=== PATIENT | female | born 1990 | race Caucasian/White ===

== ENCOUNTER 2016-07-23 19:39 | Emergency (ER) | payer OTHER ==
[2016-07-23 19:47] VITALS: RESP 18
[2016-07-23] MEDS ORDERED: ONDANSETRON 4 MG/2 ML VIAL IVP STA (20:23)
[2016-07-23] MEDS ORDERED: SODIUM CHLORIDE 0.9% 500 ML IV ONE (20:23)
[2016-07-23] MEDS ORDERED: SODIUM CHLORIDE 0.9% 1,000 ML IV SCH (20:30)
[2016-07-23 20:59] LABS: Basophils % (A) 0 %; CH 30.5; CHCM 34.2; Eosinophils % (A) 0 %; HCT 36.5 % (34.0-46.0); HDW 2.51; HGB 12.4 gm/dL (11.4-16.0); Luc % (Auto) 2; Lymphocytes # (A) 1.2 k/uL (1.0-4.8); Lymphocytes % (A) 23 %; MCH 30.4 pg (25.0-35.0); MCHC 33.9 g/dL (31.0-37.0); MCV 89.7 fL (80.0-100.0); Mean Platelet Volume 7.6; Monocytes # (A) 0.3 k/uL (0-1.0); Monocytes % (A) 5 %; Neutrophils # (A) 3.8 k/uL (1.3-7.7); Neutrophils % (A) 70 %; RBC 4.07 m/uL (3.80-5.40); RDW 13.3 % (11.5-15.5); WBC 5.4 k/uL (3.8-10.6)
[2016-07-23 21:17] LABS: ALT 28 U/L (9-52); AST 20 U/L (14-36); Alkaline Phosphatase 65 U/L (38-126); Anion Gap 12 mmol/L; Blood Urea Nitrogen 10 mg/dL (7-17); Calcium 9.3 mg/dL (8.4-10.2); Carbon Dioxide 24 mmol/L (22-30); Chloride 106 mmol/L (98-107); Glucose 84 mg/dL (74-99); Non-African American GFR(MDRD) >60 (>60 ml/min/1.73 sqM); Potassium 4.2 mmol/L (3.5-5.1); Sodium 142 mmol/L (137-145); Total Bilirubin 1.1 mg/dL (0.2-1.3); Total Protein 6.6 g/dL (6.3-8.2)
--- NOTE | 2016-07-23 21:40 | ED ---
General Adult HPI - General Chief complaint: Abdominal Pain Stated complaint: Abd Pain Time Seen by Provider: 07/23/16 20:02 Source: patient, RN notes reviewed, old records reviewed Mode of arrival: ambulatory Limitations: no limitations - History of Present Illness Initial comments: Chief complaint history of present illness a 26-year-old female who's complaining of abdominal discomfort right lower quadrant area. Point specific area is really toward the right inguinal canal area. 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 She is nauseated no vomiting no diarrhea. Eating well. - Related Data Home Medications Medication Instructions Recorded Confirmed Escitalopram [Lexapro] 10 mg PO DAILY 12/26/15 07/23/16 Ranitidine HCl 150 mg PO BID 12/26/15 07/23/16 Naproxen [Naprosyn] 250 mg PO Q12H PRN 07/23/16 07/23/16 Norgestimate-Ethinyl Estradiol 1 tab PO DAILY 07/23/16 07/23/16 [Sprintec 28 Day Tablet] Previous Rx's Medication Instructions Recorded Ibuprofen [Motrin] 400 mg PO Q6HR PRN #20 tab 07/23/16 Allergies Allergy/AdvReac Type Severity Reaction Status Date / Time aloe vera Allergy Unknown Verified 07/23/16 20:08 azithromycin Allergy Rash/Hives Verified 07/23/16 20:08 metronidazole [From Flagyl] Allergy Unknown Verified 07/23/16 20:08 Metronidazole HCl Allergy Unknown Verified 07/23/16 20:08 [From Flagyl] milk Allergy Unknown Verified 07/23/16 20:08 Penicillins Allergy Unknown Verified 07/23/16 20:08 tape Allergy Unknown Uncoded 07/23/16 19:47 Review of Systems ROS Statement: Those systems with pertinent positive or pertinent negative responses have been documented in the HPI. Review of systems no visual acuity changes no headache no sore throat no chest pain or shortness of breath. She complains discomfort over the right lower quadrant and in fact points specifically over the right inguinal canal area. Pain increases when she lifts her leg palpates the area. She can control the pain by splinting the area while lifting her leg. All systems are reviewed. 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 She's had multiple admissions multiple workups by h[facility] opener for intestinal problems. The patient's surgeries include C- section, cholecystectomy and 2 laparoscopic surgeries 1 for left ovarian cyst and the other for ablation of endometriosis. The patient reports her. The patient better managed in an [facility] been less of a problem since she switched control pills. Family history significant for diabetes and heart disease. The patient has ALLERGIES to aloe vera, his erythromycin, metronidazole, milk penicillin and tape. Patient does not smoke rarely uses alcohol socially. ROS Other: All systems not noted in ROS Statement are negative. Past Medical History Past Medical History: GERD/Reflux Additional Past Medical History / Comment(s): endometriosis, polycystic ovarian syndrome History of Any Multi-Drug Resistant Organisms: None Reported Past Surgical History: Section, Cholecystectomy Additional Past Surgical History / Comment(s): laparoscopy x2 Past Anesthesia/Blood Transfusion Reactions: No Reported Reaction Past Psychological History: Anxiety, Depression Smoking Status: Never smoker Past Alcohol Use History: Rare Past Drug Use History: None Reported - Past Family History Mother Family Medical History: Hyperlipidemia Additional Family Medical History / Comment(s): depression anxiety General Exam - General Exam Comments Initial Comments: General: The patient is awake and alert, in no distress, and does not appear acutely ill. Appears comfortable but complains of pain to her right lower quadrant area. Vital signs shows temperature temp 99, pulse 86 respiratory rate 18 pulse ox 99% room air blood pressure 130/81 mildly elevated systolic noted. Patient will be following up with her family physician in next 1-4 weeks. Eye: Pupils are equal, round and reactive to light, extra-ocular movements are intact ; there is normal conjunctiva bilaterally. No signs of icterus. Ears, nose, mouth and throat: There are moist mucous membranes and no oral lesions. Bilobed uvula noted. Neck: The neck is supple, there is no tenderness . Cardiovascular: There is a regular rate and rhythm. No murmur, rub or gallop is appreciated. Respiratory: Lungs are clear to auscultation, respirations are non-labored, breath sounds are equal. No wheezes, stridor, rales, or rhonchi. Gastrointestinal: Normal active bowel sounds. No pain with palpation throughout the abdomen except in the area right above the right inguinal canal. Pain increases when she lifts her right leg. She can control the pain in that area but putting pressure over the right inguinal canal. Pulses appear normal. No swelling to the leg. Neurovascular status to the legs intact. Back: There is no tenderness to palpation in the midline. There is no obvious deformity. No rashes noted. Musculoskeletal: Muscles of the right inguinal region uncomfortable. No hernia appreciated clinically. Pain can be controlled by splinting the area with her hand. Neurological: No neuro deficits Skin: Skin is warm and dry and no rashes or lesions are noted. Limitations: no limitations Course Vital Signs 07/23/16 19:43 Temperature 99.0 F Pulse Rate 86 Respiratory 18 Rate Blood Pressure 130/81 O2 Sat by Pulse 99 Oximetry Medical Decision Making - Medical Decision Making Medical decision making patient white count is 5.4 hemoglobin 12 hematocrit of 36 with a potassium 4.4 BUN 10 creatinine 0.76 GFR greater than 60. Glucose 84. - Lab Data Result diagrams: 07/23/16 20:44 07/23/16 20:44 Lab Results 07/23/16 07/23/16 Range/Units 20:44 20:44 WBC 5.4 (3.8-10.6) k/uL RBC 4.07 (3.80-5.40) m/uL Hgb 12.4 (11.4-16.0) gm/dL Hct 36.5 (34.0-46.0) % MCV 89.7 (80.0-100.0) fL MCH 30.4 (25.0-35.0) pg MCHC 33.9 (31.0-37.0) g/dL RDW 13.3 (11.5-15.5) % Plt Count 166 (150-450) k/uL Neutrophils % 70 % Lymphocytes % 23 % Monocytes % 5 % Eosinophils % 0 % Basophils % 0 % Neutrophils # 3.8 (1.3-7.7) k/uL Lymphocytes # 1.2 (1.0-4.8) k/uL Monocytes # 0.3 (0-1.0) k/uL Eosinophils # 0.0 (0-0.7) k/uL Basophils # 0.0 (0-0.2) k/uL Sodium 142 (137-145) mmol/L Potassium 4.2 (3.5-5.1) mmol/L Chloride 106 (98-107) mmol/L Carbon Dioxide 24 (22-30) mmol/L Anion Gap 12 mmol/L BUN 10 (7-17) mg/dL Creatinine 0.76 (0.52-1.04) mg/dL Est GFR (MDRD) Af Amer >60 (>60 ml/min/1.73 sqM) Est GFR (MDRD) Non-Af >60 (>60 ml/min/1.73 sqM) Glucose 84 (74-99) mg/dL Calcium 9.3 (8.4-10.2) mg/dL Total Bilirubin 1.1 (0.2-1.3) mg/dL AST 20 (14-36) U/L ALT 28 (9-52) U/L Alkaline Phosphatase 65 (38-126) U/L Total Protein 6.6 (6.3-8.2) g/dL Albumin 3.8 (3.5-5.0) g/dL Disposition Clinical Impression: Rt inguinal pain Disposition: HOME SELF-CARE Condition: Good Instructions: Groin Pain (ED) Additional Instructions: Follow-up with family physician. Placed her hand on the site of discomfort as needed to control discomfort. Use ibuprofen for pain. If you feel a lump may be a hernia or nontender lymph node. Prescriptions: Ibuprofen [Motrin] 400 mg PO Q6HR PRN #20 tab PRN Reason: Pain Time of Disposition: 21:42
[2016-07-23 21:51] VITALS: BP 106/55; PULSE 71; TEMP 98.3
== END 2016-07-23 21:51 | disposition home or self-care (01) ==
LOC: EC 19:39
DX: R10.31 Right lower quadrant pain (principal); K21.9 Gastro-esophageal reflux disease without esophagitis; N80.9 Endometriosis, unspecified; F41.9 Anxiety disorder, unspecified; F32.9 Major depressive disorder, single episode, unspecified; E28.2 Polycystic ovarian syndrome; Z79.899 Other long term (current) drug therapy; Z79.3 Long term (current) use of hormonal contraceptives; Z88.1 Allergy status to other antibiotic agents; Z88.3 Allergy status to other anti-infective agents; Z88.0 Allergy status to penicillin
CPT/HCPCS: 99284; 96374; 36415; 80053; 85025; J2405

== ENCOUNTER 2016-10-16 16:23 | Emergency (ER) | payer OTHER ==
[2016-10-16 17:14] VITALS: RESP 16
[2016-10-16] MEDS ORDERED: diphenhydrAMINE 50 MG/ML 1 ML VIAL IVP STA (17:59)
[2016-10-16] MEDS ORDERED: METOCLOPRAMIDE 5 MG/ML 2 ML VIAL IVP STA (17:59)
[2016-10-16] MEDS ORDERED: KETOROLAC 30 MG/ML 1 ML VIAL IVP STA (17:59)
[2016-10-16] MEDS ORDERED: SODIUM CHLORIDE 0.9% 1,000 ML IV ONE (17:59)
[2016-10-16 18:42] LABS: Basophils % (A) 0 %; CH 31.5; Eosinophils % (A) 1 %; HCT 37.6 % (34.0-46.0); HDW 2.68; Luc # (Auto) 0.17; Luc % (Auto) 3; Lymphocytes # (A) 1.7 k/uL (1.0-4.8); Lymphocytes % (A) 32 %; MCH 31.2 pg (25.0-35.0); MCHC 34.4 g/dL (31.0-37.0); MCV 90.6 fL (80.0-100.0); Monocytes # (A) 0.2 k/uL (0-1.0); Monocytes % (A) 4 %; Neutrophils # (A) 3.1 k/uL (1.3-7.7); Neutrophils % (A) 60 %; RBC 4.16 m/uL (3.80-5.40); RDW 12.5 % (11.5-15.5); WBC 5.2 k/uL (3.8-10.6); WBC (Perox) 5.55
[2016-10-16 18:43] LABS: Appearance,Urine Clear (Clear); Bilirubin,Urine Negative (Negative); Glucose,Urine (UA) Negative (Negative); Ketones,Urine Negative (Negative); Leukocyte Esterase,Urine Negative (Negative); Nitrite,Urine Negative (Negative); Protein,Urine Negative (Negative); Specific Gravity,Urine 1.013 (1.001-1.035); UA Billing (MACRO vs. MICRO) CHEM; Urobilinogen,Urine <2.0 mg/dL (<2.0)
--- NOTE | 2016-10-16 18:55 | XR ---
EXAMINATION TYPE: XR ribs RT w pa chest xray - total 5 views DATE OF EXAM: 10/16/2016 6:41 PM COMPARISON: February 15, 2016 HISTORY: Right lower anterior rib pain without known injury TECHNIQUE: 5 views FINDINGS: The lower right anterior ribs have normal appearance. Remainder of the skeletal structures are also negative. There is no pleural effusion and no pneumothorax. Cardiac silhouette has normal appearance. The lungs are clear and well expanded bilaterally. Pleural spaces are negative. Bones and soft tissues are unr emarkable. IMPRESSION: Negative examination.
[2016-10-16 18:57] LABS: ALT 27 U/L (9-52); AST 17 U/L (14-36); Alkaline Phosphatase 75 U/L (38-126); Anion Gap 9 mmol/L; Blood Urea Nitrogen 12 mg/dL (7-17); Calcium 9.6 mg/dL (8.4-10.2); Carbon Dioxide 26 mmol/L (22-30); Chloride 103 mmol/L (98-107); Glucose 88 mg/dL (74-99); Non-African American GFR(MDRD) >60 (>60 ml/min/1.73 sqM); Potassium 4.2 mmol/L (3.5-5.1); Sodium 138 mmol/L (137-145); Total Bilirubin 1.2 mg/dL (0.2-1.3); Total Protein 6.9 g/dL (6.3-8.2)
[2016-10-16] MEDS ORDERED: DIAZEPAM 5 MG/ML 2 ML SYRINGE IVP STA (20:04)
--- NOTE | 2016-10-16 20:06 | ED ---
General Adult HPI - General Chief complaint: Abdominal Pain Stated complaint: Abd Pain Time Seen by Provider: 10/16/16 17:19 Source: patient Mode of arrival: ambulatory Limitations: no limitations - History of Present Illness Initial comments: 26 year female presented for evaluation of right sided chest pain she states she's had since Saturday but it is worsened Saturday and continued to cause her pain. She denies any preceding trauma or strenuous activities. Pain is worse with moving her right arm or shoulder or twisting her torso but it resolves when she lays still. It radiates from the right anterior chest to the right posterior back. She denies any associated abdominal pain, vaginal discharge/bleeding, dysuria, flank pain, nausea, vomiting. She does have some decreased ability to breathe deeply as this will cause more pain. - Related Data Home Medications Medication Instructions Recorded Confirmed Ranitidine HCl 150 mg PO BID 12/26/15 10/16/16 Citalopram Hydrobromide [CeleXA] 20 mg PO DAILY 10/16/16 10/16/16 Tilia 1 mg PO DAILY 10/16/16 10/16/16 Previous Rx's Medication Instructions Recorded Diazepam [Valium] 5 mg PO BID #6 tab 10/16/16 HYDROcodone/APAP 5-325MG [Linneus 1 - 2 tab PO Q6HR PRN #14 tab 10/16/16 5-325] Ibuprofen [Motrin] 800 mg PO Q8HR PRN #20 tab 10/16/16 Allergies Allergy/AdvReac Type Severity Reaction Status Date / Time aloe vera Allergy Unknown Verified 10/16/16 18:54 azithromycin Allergy Rash/Hives Verified 10/16/16 18:54 metronidazole [From Flagyl] Allergy Unknown Verified 10/16/16 18:54 Metronidazole HCl Allergy Unknown Verified 10/16/16 18:54 [From Flagyl] milk Allergy Unknown Verified 10/16/16 18:54 Penicillins Allergy Unknown Verified 10/16/16 18:54 tape Allergy Unknown Uncoded 10/16/16 17:14 Review of Systems ROS Statement: Those systems with pertinent positive or pertinent negative responses have been documented in the HPI. ROS Other: All systems not noted in ROS Statement are negative. Constitutional: Denies: fever, chills Eyes: Denies: eye pain, eye discharge, vision change ENT: Denies: ear pain, throat pain Respiratory: Denies: cough, dyspnea, wheezes, hemoptysis Cardiovascular: Reports: chest pain (Chest wall pain). Denies: palpitations, dyspnea on exertion, orthopnea Endocrine: Denies: fatigue, polydipsia, polyuria Gastrointestinal: Denies: abdominal pain, nausea, vomiting Genitourinary: Denies: urgency, dysuria Musculoskeletal: Denies: back pain, arthralgia Skin: Denies: rash, lesions Neurological: Denies: headache, weakness Hematological/Lymphatic: Denies: easy bleeding, easy bruising Past Medical History Past Medical History: GERD/Reflux Additional Past Medical History / Comment(s): endometriosis, polycystic ovarian syndrome History of Any Multi-Drug Resistant Organisms: None Reported Past Surgical History: Section, Cholecystectomy Additional Past Surgical History / Comment(s): laparoscopy x2 Past Anesthesia/Blood Transfusion Reactions: No Reported Reaction Past Psychological History: Anxiety, Depression Smoking Status: Never smoker Past Alcohol Use History: Rare Past Drug Use History: None Reported - Past Family History Mother Family Medical History: Hyperlipidemia Additional Family Medical History / Comment(s): depression anxiety General Exam Limitations: no limitations General appearance: alert, in no apparent distress Head exam: Present: atraumatic, normocephalic, normal inspection Eye exam: Present: normal appearance, PERRL, EOMI. Absent: scleral icterus, conjunctival injection, periorbital swelling ENT exam: Present: normal exam, mucous membranes moist Neck exam: Present: normal inspection. Absent: tenderness, meningismus, lymphadenopathy Respiratory exam: Present: normal lung sounds bilaterally. Absent: respiratory distress, wheezes, rales, rhonchi, stridor Cardiovascular Exam: Present: regular rate, normal rhythm, normal heart sounds. Absent: systolic murmur, diastolic murmur, rubs, gallop, clicks GI/Abdominal exam: Present: soft, normal bowel sounds. Absent: distended, tenderness, guarding, rebound, rigid Rectal exam: Present: deferred Extremities exam: Present: normal inspection, full ROM, normal capillary refill. Absent: tenderness, pedal edema, joint swelling, calf tenderness Back exam: Present: normal inspection, tenderness (Along the right lower lateral ribs from the front to the back) Neurological exam: Present: alert, oriented X3, CN II-XII intact Psychiatric exam: Present: normal affect, normal mood Skin exam: Present: warm, dry, intact, normal color. Absent: rash Course Vital Signs 10/16/16 10/16/16 17:11 20:21 Temperature 98.8 F 98.0 F Pulse Rate 78 77 Respiratory 16 16 Rate Blood Pressure 128/84 112/60 O2 Sat by Pulse 100 100 Oximetry Medical Decision Making - Medical Decision Making 26 her female presented for evaluation of right chest wall pain with radiation of pain from the anterior chest wall of the right lower ribs that radiates around to the back. On physical examination there is tenderness to palpation along the chest wall. Labs revealed no significant abnormalities and chest x-ray shows no acute process. Patient was reevaluated after getting pain control including muscle relaxants since she had near resolution of her symptoms. She was informed of all these results and through shared decision making it was determined that she would be discharged with instructions to follow-up with her primary care physician but to return to this facility if her symptoms should worsen or persist. The patient acknowledged an understanding of this information and agreed with this plan of care. - Lab Data Result diagrams: 10/16/16 18:30 10/16/16 18:30 Lab Results 10/16/16 10/16/16 10/16/16 Range/Units 18:30 18:30 18:30 WBC 5.2 (3.8-10.6) k/uL RBC 4.16 (3.80-5.40) m/uL Hgb 13.0 (11.4-16.0) gm/dL Hct 37.6 (34.0-46.0) % MCV 90.6 (80.0-100.0) fL MCH 31.2 (25.0-35.0) pg MCHC 34.4 (31.0-37.0) g/dL RDW 12.5 (11.5-15.5) % Plt Count 175 (150-450) k/uL Neutrophils % 60 % Lymphocytes % 32 % Monocytes % 4 % Eosinophils % 1 % Basophils % 0 % Neutrophils # 3.1 (1.3-7.7) k/uL Lymphocytes # 1.7 (1.0-4.8) k/uL Monocytes # 0.2 (0-1.0) k/uL Eosinophils # 0.0 (0-0.7) k/uL Basophils # 0.0 (0-0.2) k/uL Sodium 138 (137-145) mmol/L Potassium 4.2 (3.5-5.1) mmol/L Chloride 103 (98-107) mmol/L Carbon Dioxide 26 (22-30) mmol/L Anion Gap 9 mmol/L BUN 12 (7-17) mg/dL Creatinine 0.71 (0.52-1.04) mg/dL Est GFR (MDRD) Af Amer >60 (>60 ml/min/1.73 sqM) Est GFR (MDRD) Non-Af >60 (>60 ml/min/1.73 sqM) Glucose 88 (74-99) mg/dL Calcium 9.6 (8.4-10.2) mg/dL Total Bilirubin 1.2 (0.2-1.3) mg/dL AST 17 (14-36) U/L ALT 27 (9-52) U/L Alkaline Phosphatase 75 (38-126) U/L Total Protein 6.9 (6.3-8.2) g/dL Albumin 4.0 (3.5-5.0) g/dL Lipase 44 (23-300) U/L Urine Color Yellow Urine Appearance Clear (Clear) Urine pH 6.0 (5.0-8.0) Ur Specific [place] 1.013 (1.001-1.035) Urine Protein Negative (Negative) Urine Glucose (UA) Negative (Negative) Urine Ketones Negative (Negative) Urine Blood Negative (Negative) Urine Nitrite Negative (Negative) Urine Bilirubin Negative (Negative) Urine Urobilinogen <2.0 (<2.0) mg/dL Ur Leukocyte Esterase Negative (Negative) Urine HCG, Qual (Not Detectd) 10/16/16 Range/Units 18:30 WBC (3.8-10.6) k/uL RBC (3.80-5.40) m/uL Hgb (11.4-16.0) gm/dL Hct (34.0-46.0) % MCV (80.0-100.0) fL MCH (25.0-35.0) pg MCHC (31.0-37.0) g/dL RDW (11.5-15.5) % Plt Count (150-450) k/uL Neutrophils % % Lymphocytes % % Monocytes % % Eosinophils % % Basophils % % Neutrophils # (1.3-7.7) k/uL Lymphocytes # (1.0-4.8) k/uL Monocytes # (0-1.0) k/uL Eosinophils # (0-0.7) k/uL Basophils # (0-0.2) k/uL Sodium (137-145) mmol/L Potassium (3.5-5.1) mmol/L Chloride (98-107) mmol/L Carbon Dioxide (22-30) mmol/L Anion Gap mmol/L BUN (7-17) mg/dL Creatinine (0.52-1.04) mg/dL Est GFR (MDRD) Af Amer (>60 ml/min/1.73 sqM) Est GFR (MDRD) Non-Af (>60 ml/min/1.73 sqM) Glucose (74-99) mg/dL Calcium (8.4-10.2) mg/dL Total Bilirubin (0.2-1.3) mg/dL AST (14-36) U/L ALT (9-52) U/L Alkaline Phosphatase (38-126) U/L Total Protein (6.3-8.2) g/dL Albumin (3.5-5.0) g/dL Lipase (23-300) U/L Urine Color Urine Appearance (Clear) Urine pH (5.0-8.0) Ur Specific [place] (1.001-1.035) Urine Protein (Negative) Urine Glucose (UA) (Negative) Urine Ketones (Negative) Urine Blood (Negative) Urine Nitrite (Negative) Urine Bilirubin (Negative) Urine Urobilinogen (<2.0) mg/dL Ur Leukocyte Esterase (Negative) Urine HCG, Qual Not Detected (Not Detectd) Disposition Clinical Impression: Abdominal pain, Rib pain on right side Disposition: HOME SELF-CARE Condition: Stable Instructions: Abdominal Pain (ED), Chest Pain (ED) Additional Instructions: Please use medication as discussed. Please follow up with family doctor if symptoms have not improved over the next two days. Please return to the emergency room if your symptoms increase or worsen or for any other concerns. Prescriptions: Diazepam [Valium] 5 mg PO BID #6 tab HYDROcodone/APAP 5-325MG [Linneus 5-325] 1 - 2 tab PO Q6HR PRN #14 tab PRN Reason: Analgesia Ibuprofen [Motrin] 800 mg PO Q8HR PRN #20 tab PRN Reason: Analgesia Referrals: Marielle Antony MD [Primary Care Provider] - 1-2 days Time of Disposition: 20:06
[2016-10-16 20:22] VITALS: BP 112/60; PULSE 77; TEMP 98
== END 2016-10-16 20:41 | disposition home or self-care (01) ==
LOC: EC 16:23
DX: R07.81 Pleurodynia (principal); R10.9 Unspecified abdominal pain; R06.00 Dyspnea, unspecified; K21.9 Gastro-esophageal reflux disease without esophagitis; F41.9 Anxiety disorder, unspecified; F32.9 Major depressive disorder, single episode, unspecified; Z79.899 Other long term (current) drug therapy; Z88.1 Allergy status to other antibiotic agents; Z88.0 Allergy status to penicillin; Z91.011 Allergy to milk products; Z91.048 Other nonmedicinal substance allergy status; Z91.09 Other allergy status, other than to drugs and biological substances; Z90.49 Acquired absence of other specified parts of digestive tract
CPT/HCPCS: 36415; 80053; 83690; 85025; 81003; 81025; 71101; 99284; 96374; 96375 ×3; 96361; J1200; J2765; J3360; J1885

== ENCOUNTER 2016-11-18 19:07 | Emergency (ER) | payer OTHER ==
[2016-11-18 19:12] VITALS: RESP 18
[2016-11-18] MEDS ORDERED: SODIUM CHLORIDE 0.9% 1,000 ML IV STA (19:31)
[2016-11-18] MEDS ORDERED: ONDANSETRON 4 MG/2 ML VIAL IVP STA (19:31)
--- NOTE | 2016-11-18 19:35 | ED ---
Abdominal Pain HPI - General Chief Complaint: Abdominal Pain Stated Complaint: Lower Abd Pain Time Seen by Provider: 11/18/16 19:16 Source: patient, RN notes reviewed Mode of arrival: ambulatory Limitations: no limitations - History of Present Illness Initial Comments: 26-year-old female presents emergency Department chief complaint of right lower quadrant abdominal pain. Patient states she's had this for the past 2 days or so. Patient states that she just continues to have this terrible pain. Patient states his abdomen on history of ovarian cysts. 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 Patient denies any fever chills any vomiting with this. Patient states the pain does make her feel somewhat nauseous. Patient states she has any change in bowel or bladder habits or any vaginal discharge. Patient states she was concerned due to the continued pain so she thought that she should be evaluated. Patient denies any recent fever, chills, shortness of breath, chest pain, back pain, nausea vomiting, numbness or tingling, dysuria or hematuria, constipation or diarrhea, headaches or visual changes, or any other current symptoms. - Related Data Home Medications Medication Instructions Recorded Confirmed Ranitidine HCl 150 mg PO DAILY@199912/26/15 11/18/16 Citalopram Hydrobromide [CeleXA] 20 mg PO DAILY@199910/16/16 11/18/16 Acetaminophen Tab [Tylenol Tab] 500 mg PO Q6H PRN 11/18/16 11/18/16 Ibuprofen [Motrin] 800 mg PO Q8HR PRN 11/18/16 11/18/16 Tilia Fe 1 tab PO DAILY@199911/18/16 11/18/16 Allergies Allergy/AdvReac Type Severity Reaction Status Date / Time adhesive tape Allergy Rash/Hives Verified 11/18/16 19:22 aloe vera Allergy Rash/Hives Verified 11/18/16 19:22 azithromycin Allergy Rash/Hives Verified 11/18/16 19:22 Penicillins Allergy Rash/Hives Verified 11/18/16 19:22 metronidazole [From Flagyl] AdvReac Nausea & Verified 11/18/16 19:22 Vomiting milk AdvReac Abdominal Verified 11/18/16 19:22 Pain Review of Systems ROS Statement: Those systems with pertinent positive or pertinent negative responses have been documented in the HPI. ROS Other: All systems not noted in ROS Statement are negative. Past Medical History Past Medical History: GERD/Reflux Additional Past Medical History / Comment(s): endometriosis, polycystic ovarian syndrome History of Any Multi-Drug Resistant Organisms: None Reported Past Surgical History: Section, Cholecystectomy Additional Past Surgical History / Comment(s): laparoscopy x2 Past Anesthesia/Blood Transfusion Reactions: No Reported Reaction Past Psychological History: Anxiety, Depression Smoking Status: Never smoker Past Alcohol Use History: Rare Past Drug Use History: None Reported - Past Family History Mother Family Medical History: Hyperlipidemia Additional Family Medical History / Comment(s): depression anxiety General Exam - General Exam Comments Initial Comments: General: The patient is awake and alert, in no distress, and does not appear acutely ill. Eye: Pupils are equal, round. Ears, nose, mouth and throat: There are moist mucous membranes. Neck: The neck is supple, there is no tenderness. Cardiovascular: There is a regular rate and rhythm. No murmur, rub or gallop is appreciated. Respiratory: Lungs are clear to auscultation, respirations are non-labored, breath sounds are equal. No wheezes, stridor, rales, or rhonchi. Gastrointestinal: Soft, non-distended, tender right lower quadrant of the abdomen without masses or organomegaly noted. There is no rebound or guarding present. No CVA tenderness. Bowel sounds are unremarkable. Back: There is no tenderness to palpation in the midline. There is no obvious deformity. No rashes noted. Musculoskeletal: Normal ROM, no tenderness, There is no pedal edema. There is no calf tenderness or swelling. Sensation intact. Pulses equal bilaterally 2+. Neurological: CN II-XII intact, There are no obvious motor or sensory deficits. Coordination appears grossly intact. Speech is normal. Skin: Skin is warm and dry and no rashes or lesions are noted. Psychiatric: Cooperative, appropriate mood & affect, normal judgment. Limitations: no limitations Course Vital Signs 11/18/16 19:10 Temperature 98.5 F Pulse Rate 89 Respiratory 18 Rate Blood Pressure 142/90 O2 Sat by Pulse 99 Oximetry Medical Decision Making - Medical Decision Making 26-year-old female presents for right lower quadrant abdominal pain. This time patient does appear to have an ovarian cyst. At this time we will give the patient oral. We discussed continuing her Motrin, home. We discussed return parameters and follow-up. Patient states she understood all questions were answered. She will be discharged home. - Lab Data Result diagrams: 11/18/16 20:08 11/18/16 20:08 Lab Results 11/18/16 11/18/16 11/18/16 Range/Units 20:05 20:05 20:08 WBC 5.3 (3.8-10.6) k/uL RBC 3.76 L (3.80-5.40) m/uL Hgb 11.9 (11.4-16.0) gm/dL Hct 34.3 (34.0-46.0) % MCV 91.1 (80.0-100.0) fL MCH 31.7 (25.0-35.0) pg MCHC 34.8 (31.0-37.0) g/dL RDW 12.8 (11.5-15.5) % Plt Count 189 (150-450) k/uL Neutrophils % 64 % Lymphocytes % 29 % Monocytes % 5 % Eosinophils % 0 % Basophils % 0 % Neutrophils # 3.4 (1.3-7.7) k/uL Lymphocytes # 1.5 (1.0-4.8) k/uL Monocytes # 0.2 (0-1.0) k/uL Eosinophils # 0.0 (0-0.7) k/uL Basophils # 0.0 (0-0.2) k/uL Sodium (137-145) mmol/L Potassium (3.5-5.1) mmol/L Chloride (98-107) mmol/L Carbon Dioxide (22-30) mmol/L Anion Gap mmol/L BUN (7-17) mg/dL Creatinine (0.52-1.04) mg/dL Est GFR (MDRD) Af Amer (>60 ml/min/1.73 sqM) Est GFR (MDRD) Non-Af (>60 ml/min/1.73 sqM) Glucose (74-99) mg/dL Calcium (8.4-10.2) mg/dL Total Bilirubin (0.2-1.3) mg/dL AST (14-36) U/L ALT (9-52) U/L Alkaline Phosphatase (38-126) U/L Total Protein (6.3-8.2) g/dL Albumin (3.5-5.0) g/dL Urine Color Yellow Urine Appearance Cloudy H (Clear) Urine pH 6.0 (5.0-8.0) Ur Specific [place] 1.029 (1.001-1.035) Urine Protein Trace H (Negative) Urine Glucose (UA) Negative (Negative) Urine Ketones Negative (Negative) Urine Blood Negative (Negative) Urine Nitrite Negative (Negative) Urine Bilirubin Negative (Negative) Urine Urobilinogen 2.0 (<2.0) mg/dL Ur Leukocyte Esterase Negative (Negative) Urine RBC <1 (0-5) /hpf Urine WBC 2 (0-5) /hpf Ur Squamous Epith Cells 15 H (0-4) /hpf Urine Mucus Rare H (None) /hpf Urine HCG, Qual Not Detected (Not Detectd) 11/18/16 Range/Units 20:08 WBC (3.8-10.6) k/uL RBC (3.80-5.40) m/uL Hgb (11.4-16.0) gm/dL Hct (34.0-46.0) % MCV (80.0-100.0) fL MCH (25.0-35.0) pg MCHC (31.0-37.0) g/dL RDW (11.5-15.5) % Plt Count (150-450) k/uL Neutrophils % % Lymphocytes % % Monocytes % % Eosinophils % % Basophils % % Neutrophils # (1.3-7.7) k/uL Lymphocytes # (1.0-4.8) k/uL Monocytes # (0-1.0) k/uL Eosinophils # (0-0.7) k/uL Basophils # (0-0.2) k/uL Sodium 138 (137-145) mmol/L Potassium 4.2 (3.5-5.1) mmol/L Chloride 105 (98-107) mmol/L Carbon Dioxide 23 (22-30) mmol/L Anion Gap 10 mmol/L BUN 15 (7-17) mg/dL Creatinine 0.80 (0.52-1.04) mg/dL Est GFR (MDRD) Af Amer >60 (>60 ml/min/1.73 sqM) Est GFR (MDRD) Non-Af >60 (>60 ml/min/1.73 sqM) Glucose 87 (74-99) mg/dL Calcium 9.5 (8.4-10.2) mg/dL Total Bilirubin 1.2 (0.2-1.3) mg/dL AST 14 (14-36) U/L ALT 28 (9-52) U/L Alkaline Phosphatase 68 (38-126) U/L Total Protein 6.7 (6.3-8.2) g/dL Albumin 3.9 (3.5-5.0) g/dL Urine Color Urine Appearance (Clear) Urine pH (5.0-8.0) Ur Specific [place] (1.001-1.035) Urine Protein (Negative) Urine Glucose (UA) (Negative) Urine Ketones (Negative) Urine Blood (Negative) Urine Nitrite (Negative) Urine Bilirubin (Negative) Urine Urobilinogen (<2.0) mg/dL Ur Leukocyte Esterase (Negative) Urine RBC (0-5) /hpf Urine WBC (0-5) /hpf Ur Squamous Epith Cells (0-4) /hpf Urine Mucus (None) /hpf Urine HCG, Qual (Not Detectd) - Radiology Data Radiology results: report reviewed, image reviewed Disposition Clinical Impression: Ovarian cyst Disposition: HOME SELF-CARE Condition: Stable Instructions: Ovarian Cyst (ED) Additional Instructions: Please use medication as discussed. Please follow up with family doctor if symptoms have not improved over the next two days. Please return to the emergency room if your symptoms increase or worsen or for any other concerns. Referrals: Marielle Antony MD [Primary Care Provider] - 1-2 days Time of Disposition: 21:08
[2016-11-18 20:27] LABS: Appearance,Urine Cloudy (Clear); Bilirubin,Urine Negative (Negative); Glucose,Urine (UA) Negative (Negative); Ketones,Urine Negative (Negative); Leukocyte Esterase,Urine Negative (Negative); Mucus,Urine Rare /hpf; Nitrite,Urine Negative (Negative); Particle Count 5370; Protein,Urine Trace (Negative); RBC,Urine <1 /hpf (0-5); Specific Gravity,Urine 1.029 (1.001-1.035); Squamous Epithelial Cell,Urine 15 /hpf (0-4); UA Billing (MACRO vs. MICRO) MICRO; WBC,Urine 2 /hpf (0-5)
[2016-11-18 20:29] LABS: Basophils % (A) 0 %; CH 31.6; CHCM 34.8; Eosinophils % (A) 0 %; HCT 34.3 % (34.0-46.0); HDW 2.59; HGB 11.9 gm/dL (11.4-16.0); Luc % (Auto) 2; Lymphocytes # (A) 1.5 k/uL (1.0-4.8); Lymphocytes % (A) 29 %; MCH 31.7 pg (25.0-35.0); MCHC 34.8 g/dL (31.0-37.0); MCV 91.1 fL (80.0-100.0); Mean Platelet Volume 7.5; Monocytes # (A) 0.2 k/uL (0-1.0); Monocytes % (A) 5 %; Neutrophils # (A) 3.4 k/uL (1.3-7.7); Neutrophils % (A) 64 %; RBC 3.76 m/uL (3.80-5.40); RDW 12.8 % (11.5-15.5); WBC 5.3 k/uL (3.8-10.6); WBC (Perox) 4.86
[2016-11-18 20:32] LABS: ALT 28 U/L (9-52); AST 14 U/L (14-36); Alkaline Phosphatase 68 U/L (38-126); Anion Gap 10 mmol/L; Blood Urea Nitrogen 15 mg/dL (7-17); Calcium 9.5 mg/dL (8.4-10.2); Carbon Dioxide 23 mmol/L (22-30); Chloride 105 mmol/L (98-107); Glucose 87 mg/dL (74-99); Non-African American GFR(MDRD) >60 (>60 ml/min/1.73 sqM); Potassium 4.2 mmol/L (3.5-5.1); Sodium 138 mmol/L (137-145); Total Bilirubin 1.2 mg/dL (0.2-1.3); Total Protein 6.7 g/dL (6.3-8.2)
--- NOTE | 2016-11-18 21:05 | US ---
EXAMINATION TYPE: US transvaginal plus Dopplers DATE OF EXAM: 11/18/2016 8:32 PM COMPARISON: 06/07/2016 CLINICAL HISTORY: 26-year-old female with Pain. RLQ pain. Hx of 2 c-sections. TECHNIQUE: Multiple transvaginal sonographic images of the pelvis were obtained. Color Doppler and s pectral waveform analysis of the ovarian arteries and veins. Date of LMP: 11/04/2016, FINDINGS: Uterus: Anteverted measuring 7.7 x 4.8 x 3.8 cm Endometrial Stripe: 0.5 cm, within normal limits. Right Ovary: 3.6 x 3.3 x 2.8 cm with a 3.1 cm dominant follicle or functional cyst. Satisfactory art erial and venous flow is demonstrated within the ovary. Left Ovary: 2.8 x 2.1 x 1.9 cm with follicular change. Satisfactory arterial and venous flow is demo nstrated. No evidence of adnexal abnormality. Trace cul-de-sac free fluid likely physiologic. IMPRESSION: 1. No sonographic evidence for ovarian torsion. 2. There is a 3.1 cm dominant follicle or functional cyst in the right ovary. 3. Trace cul-de-sac free fluid likely physiologic.
[2016-11-18] MEDS ORDERED: KETOROLAC 30 MG/ML 1 ML VIAL IVP STA (21:08)
[2016-11-18 21:20] VITALS: BP 119/58; PULSE 68; TEMP 98.8
== END 2016-11-18 21:20 | disposition home or self-care (01) ==
LOC: EC 19:07
DX: N83.201 Unspecified ovarian cyst, right side (principal); K21.9 Gastro-esophageal reflux disease without esophagitis; F32.9 Major depressive disorder, single episode, unspecified; F41.9 Anxiety disorder, unspecified; Z79.899 Other long term (current) drug therapy; Z88.0 Allergy status to penicillin; Z88.1 Allergy status to other antibiotic agents; Z91.048 Other nonmedicinal substance allergy status; Z91.011 Allergy to milk products
CPT/HCPCS: 36415; 80053; 85025; 81001; 81025; 93975; 76830; 99284; 96374; 96375; 96361; J2405; J1885

== ENCOUNTER 2016-12-03 14:52 | Emergency (ER) | payer OTHER ==
[2016-12-03] MEDS ORDERED: SODIUM CHLORIDE 0.9% 1,000 ML IV STA (16:27)
[2016-12-03] MEDS ORDERED: KETOROLAC 30 MG/ML 1 ML VIAL IVP STA (16:27)
--- NOTE | 2016-12-03 16:57 | ED ---
Abdominal Pain HPI - General Chief Complaint: Abdominal Pain Stated Complaint: abdominal pain Time Seen by Provider: 12/03/16 16:22 Source: patient, RN notes reviewed Mode of arrival: ambulatory - History of Present Illness Initial Comments: 26-year-old female presents to the emergency room chief complaint of abdominal pain. Patient states that she is currently on her menstrual cycle and she is having some increased cramping. Patient states she was concerned due to the increased cramping so she thought that she should be evaluated. Patient denies any fever chills nausea or vomiting with this. Patient states she has been passing some clots and discharge. Patient states she was concerned due to the cramping so she thought that she should be evaluated.Patient denies any recent fever, chills, shortness of breath, chest pain, back pain, nausea vomiting, numbness or tingling, dysuria or hematuria, constipation or diarrhea, headaches or visual changes, or any other current symptoms. - Related Data Home Medications Medication Instructions Recorded Confirmed Ranitidine HCl 150 mg PO HS 12/26/15 12/03/16 Citalopram Hydrobromide [CeleXA] 20 mg PO HS 10/16/16 12/03/16 Tilia Fe 1 tab PO HS 11/18/16 12/03/16 Allergies Allergy/AdvReac Type Severity Reaction Status Date / Time adhesive tape Allergy Rash/Hives Verified 12/03/16 16:47 aloe vera Allergy Rash/Hives Verified 12/03/16 16:47 azithromycin Allergy Rash/Hives Verified 12/03/16 16:47 Penicillins Allergy Rash/Hives Verified 12/03/16 16:47 metronidazole [From Flagyl] AdvReac Nausea & Verified 12/03/16 16:47 Vomiting milk AdvReac Abdominal Verified 12/03/16 16:47 Pain Review of Systems ROS Statement: Those systems with pertinent positive or pertinent negative responses have been documented in the HPI. ROS Other: All systems not noted in ROS Statement are negative. Past Medical History Past Medical History: GERD/Reflux Additional Past Medical History / Comment(s): endometriosis, polycystic ovarian syndrome History of Any Multi-Drug Resistant Organisms: None Reported Past Surgical History: Section, Cholecystectomy Additional Past Surgical History / Comment(s): laparoscopy x2 Past Anesthesia/Blood Transfusion Reactions: No Reported Reaction Past Psychological History: Anxiety, Depression Smoking Status: Never smoker Past Alcohol Use History: Rare Past Drug Use History: None Reported - Past Family History Mother Family Medical History: Hyperlipidemia Additional Family Medical History / Comment(s): depression anxiety General Exam - General Exam Comments Initial Comments: General: The patient is awake and alert, in no distress, and does not appear acutely ill. Eye: Pupils are equal, round. Ears, nose, mouth and throat: There are moist mucous membranes. Neck: The neck is supple, there is no tenderness. Cardiovascular: There is a regular rate and rhythm. No murmur, rub or gallop is appreciated. Respiratory: Lungs are clear to auscultation, respirations are non-labored, breath sounds are equal. No wheezes, stridor, rales, or rhonchi. Gastrointestinal: Soft, non-distended, non-tender abdomen without masses or organomegaly noted. There is no rebound or guarding present. No CVA tenderness. Bowel sounds are unremarkable. Back: There is no tenderness to palpation in the midline. There is no obvious deformity. No rashes noted. Musculoskeletal: Normal ROM, no tenderness, There is no pedal edema. There is no calf tenderness or swelling. Sensation intact. Pulses equal bilaterally 2+. Neurological: CN II-XII intact, There are no obvious motor or sensory deficits. Coordination appears grossly intact. Speech is normal. Skin: Skin is warm and dry and no rashes or lesions are noted. Psychiatric: Cooperative, appropriate mood & affect, normal judgment. Course Vital Signs 12/03/16 15:37 Temperature 99.3 F Pulse Rate 77 Respiratory 18 Rate Blood Pressure 123/79 O2 Sat by Pulse 100 Oximetry Medical Decision Making - Medical Decision Making 26 yo female presents to the ER with cc of abdominal pain associated with her menstruation cycle. This time we discussed discharge from previous. Where return parameters. Patient stated that she understood all questions have been answered. She will be discharged. - Lab Data Result diagrams: 12/03/16 16:30 12/03/16 16:30 Lab Results 12/03/16 12/03/16 12/03/16 Range/Units 16:30 16:30 16:30 WBC 4.9 (3.8-10.6) k/uL RBC 4.07 (3.80-5.40) m/uL Hgb 12.8 (11.4-16.0) gm/dL Hct 37.7 (34.0-46.0) % MCV 92.6 (80.0-100.0) fL MCH 31.5 (25.0-35.0) pg MCHC 34.1 (31.0-37.0) g/dL RDW 12.8 (11.5-15.5) % Plt Count 197 (150-450) k/uL Neutrophils % 63 % Lymphocytes % 29 % Monocytes % 5 % Eosinophils % 1 % Basophils % 0 % Neutrophils # 3.1 (1.3-7.7) k/uL Lymphocytes # 1.4 (1.0-4.8) k/uL Monocytes # 0.2 (0-1.0) k/uL Eosinophils # 0.0 (0-0.7) k/uL Basophils # 0.0 (0-0.2) k/uL Sodium 140 (137-145) mmol/L Potassium 4.1 (3.5-5.1) mmol/L Chloride 105 (98-107) mmol/L Carbon Dioxide 26 (22-30) mmol/L Anion Gap 9 mmol/L BUN 14 (7-17) mg/dL Creatinine 0.76 (0.52-1.04) mg/dL Est GFR (MDRD) Af Amer >60 (>60 ml/min/1.73 sqM) Est GFR (MDRD) Non-Af >60 (>60 ml/min/1.73 sqM) Glucose 93 (74-99) mg/dL Calcium 9.5 (8.4-10.2) mg/dL Total Bilirubin 1.1 (0.2-1.3) mg/dL AST 18 (14-36) U/L ALT 30 (9-52) U/L Alkaline Phosphatase 60 (38-126) U/L Total Protein 7.0 (6.3-8.2) g/dL Albumin 3.9 (3.5-5.0) g/dL HCG, Quant <2.4 mIU/mL Urine Color Yellow Urine Appearance Clear (Clear) Urine pH 6.5 (5.0-8.0) Ur Specific [place] 1.018 (1.001-1.035) Urine Protein Negative (Negative) Urine Glucose (UA) Negative (Negative) Urine Ketones Negative (Negative) Urine Blood Moderate H (Negative) Urine Nitrite Negative (Negative) Urine Bilirubin Negative (Negative) Urine Urobilinogen <2.0 (<2.0) mg/dL Ur Leukocyte Esterase Negative (Negative) Urine RBC 52 H (0-5) /hpf Urine WBC 2 (0-5) /hpf Ur Squamous Epith Cells 1 (0-4) /hpf Urine Bacteria Rare H (None) /hpf Urine Mucus Rare H (None) /hpf Disposition Clinical Impression: Menstrual cramps Disposition: HOME SELF-CARE Condition: Stable Instructions: Dysmenorrhea (ED) Additional Instructions: Please use medication as discussed. Please follow up with family doctor if symptoms have not improved over the next two days. Please return to the emergency room if your symptoms increase or worsen or for any other concerns. Referrals: Marielle Antony MD [Primary Care Provider] - 1-2 days Time of Disposition: 17:37
[2016-12-03 17:01] LABS: Basophils % (A) 0 %; CH 31.9; CHCM 34.6; Eosinophils % (A) 1 %; HCT 37.7 % (34.0-46.0); HDW 2.57; HGB 12.8 gm/dL (11.4-16.0); Luc # (Auto) 0.09; Luc % (Auto) 2; Lymphocytes # (A) 1.4 k/uL (1.0-4.8); Lymphocytes % (A) 29 %; MCH 31.5 pg (25.0-35.0); MCHC 34.1 g/dL (31.0-37.0); MCV 92.6 fL (80.0-100.0); Mean Platelet Volume 7.7; Monocytes # (A) 0.2 k/uL (0-1.0); Monocytes % (A) 5 %; Neutrophils # (A) 3.1 k/uL (1.3-7.7); Neutrophils % (A) 63 %; RBC 4.07 m/uL (3.80-5.40); RDW 12.8 % (11.5-15.5); WBC 4.9 k/uL (3.8-10.6); WBC (Perox) 5.09
[2016-12-03 17:04] LABS: Appearance,Urine Clear (Clear); Bacteria,Urine Rare /hpf; Bilirubin,Urine Negative (Negative); Glucose,Urine (UA) Negative (Negative); Ketones,Urine Negative (Negative); Leukocyte Esterase,Urine Negative (Negative); Mucus,Urine Rare /hpf; Nitrite,Urine Negative (Negative); PH, Urine 6.5 (5.0-8.0); Particle Count 1237; Protein,Urine Negative (Negative); RBC,Urine 52 /hpf (0-5); Specific Gravity,Urine 1.018 (1.001-1.035); Squamous Epithelial Cell,Urine 1 /hpf (0-4); UA Billing (MACRO vs. MICRO) MICRO; Urobilinogen,Urine <2.0 mg/dL (<2.0); WBC,Urine 2 /hpf (0-5)
[2016-12-03 17:11] LABS: ALT 30 U/L (9-52); AST 18 U/L (14-36); Alkaline Phosphatase 60 U/L (38-126); Anion Gap 9 mmol/L; Blood Urea Nitrogen 14 mg/dL (7-17); Calcium 9.5 mg/dL (8.4-10.2); Carbon Dioxide 26 mmol/L (22-30); Chloride 105 mmol/L (98-107); Glucose 93 mg/dL (74-99); Non-African American GFR(MDRD) >60 (>60 ml/min/1.73 sqM); Potassium 4.1 mmol/L (3.5-5.1); Sodium 140 mmol/L (137-145); Total Bilirubin 1.1 mg/dL (0.2-1.3)
[2016-12-03 17:27] LABS: HCG,Quantitative Serum <2.4 mIU/mL
[2016-12-03] MEDS ORDERED: ONDANSETRON 4 MG/2 ML VIAL IVP STA (17:45)
[2016-12-03 17:48] VITALS: BP 139/86; PULSE 74; RESP 16; TEMP 98.3
== END 2016-12-03 17:53 | disposition home or self-care (01) ==
LOC: EC 14:52
DX: N94.6 Dysmenorrhea, unspecified (principal); K21.9 Gastro-esophageal reflux disease without esophagitis; F32.9 Major depressive disorder, single episode, unspecified; F41.9 Anxiety disorder, unspecified; Z79.899 Other long term (current) drug therapy; Z88.1 Allergy status to other antibiotic agents; Z88.0 Allergy status to penicillin; Z91.011 Allergy to milk products; Z91.048 Other nonmedicinal substance allergy status
CPT/HCPCS: 36415; 80053; 85025; 81001; 84702; 87086; 99284; 96374; 96375; 96361; J2405; J1885

== ENCOUNTER 2017-01-09 14:50 | Emergency (ER) | payer OTHER ==
[2017-01-09] MEDS ORDERED: KETOROLAC 60 MG/2 ML VIAL IM STA (15:35)
--- NOTE | 2017-01-09 15:38 | ED ---
General Adult HPI - General Chief complaint: Recheck/Abnormal Lab/Rx Stated complaint: Rib/Abd Pain Time Seen by Provider: 01/09/17 15:29 Source: patient, RN notes reviewed Mode of arrival: ambulatory Limitations: no limitations - History of Present Illness Initial comments: Patient is a 26-year-old female presents emergency room for evaluation. Patient states she's been having a cough for the past 3 weeks. Patient states the cough finally subsided but now she is having continuing bilateral anterior rib pain. Patient states she called the primary care provider and can get in until tomorrow morning. Patient is alert and states deep breath or coughs or presses over her rib area she has increasing pain. Patient denies any current cough. Patient denies shortness of breath. Patient denies nausea or vomiting. Patient states taking ibuprofen without relief of symptoms. - Related Data Home Medications Medication Instructions Recorded Confirmed Ranitidine HCl 150 mg PO DAILY@1400 12/26/15 01/09/17 Citalopram Hydrobromide [CeleXA] 20 mg PO DAILY@1400 10/16/16 01/09/17 Tilia Fe 1 tab PO DAILY@1400 11/18/16 01/09/17 Loratadine [Claritin] 10 mg PO DAILY@1400 01/09/17 01/09/17 Previous Rx's Medication Instructions Recorded Ibuprofen [Motrin] 600 mg PO Q6HR PRN #20 tab 01/09/17 Allergies Allergy/AdvReac Type Severity Reaction Status Date / Time adhesive tape Allergy Rash/Hives Verified 01/09/17 15:13 aloe vera Allergy Rash/Hives Verified 01/09/17 15:13 azithromycin Allergy Rash/Hives Verified 01/09/17 15:13 metronidazole [From Flagyl] Allergy Rash/Hives Verified 01/09/17 16:09 Penicillins Allergy Rash/Hives Verified 01/09/17 15:13 milk AdvReac Abdominal Verified 01/09/17 15:13 Pain Review of Systems ROS Statement: Those systems with pertinent positive or pertinent negative responses have been documented in the HPI. ROS Other: All systems not noted in ROS Statement are negative. Past Medical History Past Medical History: GERD/Reflux Additional Past Medical History / Comment(s): endometriosis, polycystic ovarian syndrome History of Any Multi-Drug Resistant Organisms: None Reported Past Surgical History: Section, Cholecystectomy Additional Past Surgical History / Comment(s): laparoscopy x2 Past Anesthesia/Blood Transfusion Reactions: No Reported Reaction Past Psychological History: Anxiety, Depression Smoking Status: Never smoker Past Alcohol Use History: None Reported Past Drug Use History: None Reported - Past Family History Mother Family Medical History: Hyperlipidemia Additional Family Medical History / Comment(s): depression anxiety General Exam - General Exam Comments Initial Comments: Sitting in exam room, no acute distress. Limitations: no limitations General appearance: alert, in no apparent distress Head exam: Present: atraumatic, normocephalic, normal inspection Eye exam: Present: normal appearance, PERRL, EOMI Pupils: Present: normal accommodation ENT exam: Present: normal exam Neck exam: Present: normal inspection Respiratory exam: Present: normal lung sounds bilaterally, chest wall tenderness (Reproducible b/l anterior chest wall pain). Absent: respiratory distress Cardiovascular Exam: Present: regular rate, normal rhythm, normal heart sounds Extremities exam: Present: normal inspection Back exam: Present: normal inspection Neurological exam: Present: alert, oriented X3, CN II-XII intact, normal gait Psychiatric exam: Present: normal affect, normal mood Skin exam: Present: warm, dry, intact, normal color. Absent: rash Course Vital Signs 01/09/17 01/09/17 01/09/17 15:09 15:42 16:15 Temperature 98.7 F 99.3 F 99.3 F Pulse Rate 80 64 66 Respiratory 18 16 20 Rate Blood Pressure 111/67 120/62 120/64 O2 Sat by Pulse 100 100 99 Oximetry 01/09/17 01/09/17 17:07 18:20 Temperature 98.3 F 98.6 F Pulse Rate 87 71 Respiratory 16 16 Rate Blood Pressure 125/80 114/64 O2 Sat by Pulse 99 96 Oximetry Medical Decision Making - Medical Decision Making Patient is a [age] female presents emergency room for evaluation of anterior rib pain. Chest x-ray shows no acute findings. While patient was here she began developing headache. Patient given medications and states that she feels a lot better. Patient states she has an appointment with her primary care provider tomorrow morning. Return parameters discussed. - Radiology Data Radiology results: report reviewed, image reviewed Disposition Clinical Impression: Costochondritis Disposition: HOME SELF-CARE Condition: Good Instructions: Costochondritis (ED) Additional Instructions: Take ibuprofen as needed. Please follow up with primary care provider in 1-2 days. If any new symptom arises or symptoms worsen, return to ER as soon as possible. Prescriptions: Ibuprofen [Motrin] 600 mg PO Q6HR PRN #20 tab PRN Reason: Pain Referrals: Marielle Antony MD [Primary Care Provider] - 1-2 days Time of Disposition: 16:07
--- NOTE | 2017-01-09 15:55 | XR ---
EXAMINATION TYPE: XR chest 2V DATE OF EXAM: 01/09/2017 COMPARISON: 10/16/2016 INDICATION: Pain TECHNIQUE: Frontal and lateral views of the chest are obtained. FINDINGS: The heart size is normal. The pulmonary vasculature is normal. The lungs are clear. IMPRESSION: 1. No acute pulmonary process.
[2017-01-09] MEDS ORDERED: diphenhydrAMINE 50 MG/ML 1 ML VIAL IM STA (16:13)
[2017-01-09] MEDS ORDERED: METOCLOPRAMIDE 5 MG TAB PO STA (16:13)
[2017-01-09 17:09] VITALS: RESP 16
[2017-01-09] MEDS ORDERED: DIAZEPAM 5 MG TAB PO STA (17:11)
[2017-01-09 18:21] VITALS: BP 114/64; PULSE 71; TEMP 98.6
== END 2017-01-09 18:20 | disposition home or self-care (01) ==
LOC: EC 14:50
DX: M94.0 Chondrocostal junction syndrome [Tietze] (principal); K21.9 Gastro-esophageal reflux disease without esophagitis; F32.9 Major depressive disorder, single episode, unspecified; Z88.0 Allergy status to penicillin; Z88.1 Allergy status to other antibiotic agents; Z91.048 Other nonmedicinal substance allergy status; Z91.011 Allergy to milk products; Z79.899 Other long term (current) drug therapy
CPT/HCPCS: 99283; 96372 ×2; 71020; J1200; J1885

== ENCOUNTER 2017-02-10 15:13 | Emergency (ER) | payer OTHER ==
[2017-02-10] MEDS ORDERED: SODIUM CHLORIDE 0.9% 1,000 ML IV ONE (17:15)
[2017-02-10] MEDS ORDERED: ONDANSETRON 4 MG/2 ML VIAL IVP STA (17:15)
[2017-02-10] MEDS ORDERED: HYDROmorphone 1 MG/ML 1 ML SYRINGE IVP STA ×2 (17:15→20:04)
--- NOTE | 2017-02-10 18:00 | ED ---
Abdominal Pain HPI - General Chief Complaint: Abdominal Pain Stated Complaint: Abd Pain,Nausea Source: patient Mode of arrival: ambulatory Limitations: no limitations - History of Present Illness Initial Comments: 26-year-old female with past medical history of endometriosis, polycystic ovarian syndrome, 2 C-sections and cholecystectomy presented for evaluation of right lower quadrant abdominal pain. She states her symptoms started on Saturday with only mild discomfort in her abdomen which gradually progressed over the next few days to include diarrhea, nausea and vomiting, and worsening abdominal pain. She tried to make it to Saturday to see her primary care physician Dr. Pate but states the pain became unbearable today. LMP was and she states her symptoms are not similar to previous endometriosis/ PCOS pain. - Related Data Home Medications Medication Instructions Recorded Confirmed Ranitidine HCl 150 mg PO DAILY@1400 12/26/15 02/10/17 Citalopram Hydrobromide [CeleXA] 20 mg PO DAILY@1400 10/16/16 02/10/17 Previous Rx's Medication Instructions Recorded HYDROcodone/APAP 5-325MG [[place] 1 - 2 tab PO Q6HR PRN #7 tab 02/10/17 5-325] Ibuprofen [Motrin] 400 mg PO Q6HR #10 tab 02/10/17 Allergies Allergy/AdvReac Type Severity Reaction Status Date / Time adhesive tape Allergy Rash/Hives Verified 02/10/17 17:31 aloe vera Allergy Rash/Hives Verified 02/10/17 17:31 azithromycin Allergy Rash/Hives Verified 02/10/17 17:31 metronidazole [From Flagyl] Allergy Rash/Hives Verified 02/10/17 17:31 Penicillins Allergy Rash/Hives Verified 02/10/17 17:31 milk AdvReac Abdominal Verified 02/10/17 17:31 Pain Review of Systems ROS Statement: Those systems with pertinent positive or pertinent negative responses have been documented in the HPI. ROS Other: All systems not noted in ROS Statement are negative. Constitutional: Denies: fever, chills Eyes: Denies: eye pain, vision change ENT: Denies: ear pain, throat pain Respiratory: Denies: cough, dyspnea Cardiovascular: Denies: chest pain, palpitations Endocrine: Denies: fatigue, polydipsia Gastrointestinal: Reports: abdominal pain, nausea, vomiting, diarrhea. Denies: constipation, hematemesis, melena, hematochezia Genitourinary: Denies: urgency, dysuria Musculoskeletal: Denies: back pain, arthralgia Skin: Denies: rash, lesions Neurological: Denies: headache, weakness Psychiatric: Denies: anxiety, depression Hematological/Lymphatic: Denies: easy bleeding, easy bruising Past Medical History Past Medical History: GERD/Reflux Additional Past Medical History / Comment(s): endometriosis, polycystic ovarian syndrome History of Any Multi-Drug Resistant Organisms: None Reported Past Surgical History: Section, Cholecystectomy Additional Past Surgical History / Comment(s): laparoscopy x2 Past Anesthesia/Blood Transfusion Reactions: No Reported Reaction Past Psychological History: Anxiety, Depression Smoking Status: Never smoker Past Alcohol Use History: None Reported Past Drug Use History: None Reported - Past Family History Mother Family Medical History: Hyperlipidemia Additional Family Medical History / Comment(s): depression anxiety General Exam Limitations: no limitations General appearance: alert, in no apparent distress Head exam: Present: atraumatic, normocephalic, normal inspection Eye exam: Present: normal appearance, PERRL, EOMI. Absent: scleral icterus, conjunctival injection, periorbital swelling ENT exam: Present: normal exam, mucous membranes moist Neck exam: Present: normal inspection. Absent: tenderness, meningismus, lymphadenopathy Respiratory exam: Present: normal lung sounds bilaterally. Absent: respiratory distress, wheezes, rales, rhonchi, stridor Cardiovascular Exam: Present: regular rate, normal rhythm, normal heart sounds. Absent: systolic murmur, diastolic murmur, rubs, gallop, clicks GI/Abdominal exam: Present: soft, tenderness, rebound, normal bowel sounds. Absent: distended, guarding, rigid Rectal exam: Present: deferred Extremities exam: Present: normal inspection, full ROM, normal capillary refill. Absent: tenderness, pedal edema, joint swelling, calf tenderness Back exam: Present: normal inspection Neurological exam: Present: alert, oriented X3, CN II-XII intact Psychiatric exam: Present: normal affect, normal mood Skin exam: Present: warm, dry, intact, normal color. Absent: rash Course Vital Signs 02/10/17 02/10/17 02/10/17 15:25 19:30 20:15 Temperature 98.8 F 98.0 F 98.3 F Pulse Rate 69 107 H 77 Respiratory 18 19 18 Rate Blood Pressure 127/67 126/71 130/56 O2 Sat by Pulse 98 100 99 Oximetry 02/10/17 21:26 Temperature 97.9 F Pulse Rate 73 Respiratory 19 Rate Blood Pressure 136/77 O2 Sat by Pulse 97 Oximetry Medical Decision Making - Medical Decision Making 26-year-old female with past medical history of endometriosis, polycystic ovarian syndrome, 2 C-sections and cholecystectomy presented for evaluation of right lower quadrant abdominal pain. On physical examination the patient appears to be in mild distress but during conversation the patient appears to become much more relaxed. Patient states that symptoms are distinctly not similar to previous endometriosis or PCOS pains that she's had. He states her gallbladder is still present and concern for appendicitis is highest on differential. We'll obtain labs, CT abdomen and pelvis, and provide treatment. Labs revealed no significant abnormalities and CT abdomen and pelvis showed a normal appendix and improved free fluid from previous exams. The patient was reevaluated and stated that she continued to have pain. She is provided with mortise is a pain control and on repeat evaluation she had some improvement. Given that the patient continued to have some mild tenderness she was offered admission for further observation and possible GI or [facility] referral. The patient refused at this time and stated that she would like to be discharged home. She was informed of the potential complications that could result including but not limited to: Abdominal perforation, abdominal obstruction, intra-abdominal infection, ovarian cyst rupture. She was advised to follow with her primary care physician within 24 hours for reevaluation and that if she is unable to get into his office to return to this ED for repeat exam. Prior to discharge on reevaluation her abdomen was found to be soft and non- peritoneal without signs of guarding, rigidity, or rebound. Return instructions provided. The patient acknowledged an understanding of this information and agreed with this plan of care. - Lab Data Result diagrams: 02/10/17 18:00 02/10/17 18:00 Lab Results 02/10/17 02/10/17 02/10/17 Range/Units 18:00 18:00 18:00 WBC 5.3 (3.8-10.6) k/uL RBC 3.95 (3.80-5.40) m/uL Hgb 12.5 (11.4-16.0) gm/dL Hct 36.3 (34.0-46.0) % MCV 91.9 (80.0-100.0) fL MCH 31.7 (25.0-35.0) pg MCHC 34.5 (31.0-37.0) g/dL RDW 13.5 (11.5-15.5) % Plt Count 183 (150-450) k/uL Neutrophils % 65 % Lymphocytes % 27 % Monocytes % 5 % Eosinophils % 1 % Basophils % 0 % Neutrophils # 3.4 (1.3-7.7) k/uL Lymphocytes # 1.4 (1.0-4.8) k/uL Monocytes # 0.2 (0-1.0) k/uL Eosinophils # 0.0 (0-0.7) k/uL Basophils # 0.0 (0-0.2) k/uL ESR 17 (0-20) mm/hr Sodium 139 (137-145) mmol/L Potassium 4.2 (3.5-5.1) mmol/L Chloride 105 (98-107) mmol/L Carbon Dioxide 26 (22-30) mmol/L Anion Gap 8 mmol/L BUN 13 (7-17) mg/dL Creatinine 0.93 (0.52-1.04) mg/dL Est GFR (MDRD) Af Amer >60 (>60 ml/min/1.73 sqM) Est GFR (MDRD) Non-Af >60 (>60 ml/min/1.73 sqM) Glucose 83 (74-99) mg/dL Plasma Lactic Acid Santhosh (0.7-2.0) mmol/L Calcium 9.2 (8.4-10.2) mg/dL Total Bilirubin 1.0 (0.2-1.3) mg/dL AST 15 (14-36) U/L ALT 28 (9-52) U/L Alkaline Phosphatase 75 (38-126) U/L C-Reactive Protein 7.4 (<10.0) mg/L Total Protein 6.6 (6.3-8.2) g/dL Albumin 4.0 (3.5-5.0) g/dL Lipase 58 (23-300) U/L Urine Color Urine Appearance (Clear) Urine pH (5.0-8.0) Ur Specific [place] (1.001-1.035) Urine Protein (Negative) Urine Glucose (UA) (Negative) Urine Ketones (Negative) Urine Blood (Negative) Urine Nitrite (Negative) Urine Bilirubin (Negative) Urine Urobilinogen (<2.0) mg/dL Ur Leukocyte Esterase (Negative) Urine HCG, Qual Not Detected (Not Detectd) 02/10/17 02/10/17 Range/Units 18:00 18:00 WBC (3.8-10.6) k/uL RBC (3.80-5.40) m/uL Hgb (11.4-16.0) gm/dL Hct (34.0-46.0) % MCV (80.0-100.0) fL MCH (25.0-35.0) pg MCHC (31.0-37.0) g/dL RDW (11.5-15.5) % Plt Count (150-450) k/uL Neutrophils % % Lymphocytes % % Monocytes % % Eosinophils % % Basophils % % Neutrophils # (1.3-7.7) k/uL Lymphocytes # (1.0-4.8) k/uL Monocytes # (0-1.0) k/uL Eosinophils # (0-0.7) k/uL Basophils # (0-0.2) k/uL ESR (0-20) mm/hr Sodium (137-145) mmol/L Potassium (3.5-5.1) mmol/L Chloride (98-107) mmol/L Carbon Dioxide (22-30) mmol/L Anion Gap mmol/L BUN (7-17) mg/dL Creatinine (0.52-1.04) mg/dL Est GFR (MDRD) Af Amer (>60 ml/min/1.73 sqM) Est GFR (MDRD) Non-Af (>60 ml/min/1.73 sqM) Glucose (74-99) mg/dL Plasma Lactic Acid Santhosh 0.7 (0.7-2.0) mmol/L Calcium (8.4-10.2) mg/dL Total Bilirubin (0.2-1.3) mg/dL AST (14-36) U/L ALT (9-52) U/L Alkaline Phosphatase (38-126) U/L C-Reactive Protein (<10.0) mg/L Total Protein (6.3-8.2) g/dL Albumin (3.5-5.0) g/dL Lipase (23-300) U/L Urine Color Yellow Urine Appearance Clear (Clear) Urine pH 7.5 (5.0-8.0) Ur Specific [place] 1.020 (1.001-1.035) Urine Protein Negative (Negative) Urine Glucose (UA) Negative (Negative) Urine Ketones Negative (Negative) Urine Blood Negative (Negative) Urine Nitrite Negative (Negative) Urine Bilirubin Negative (Negative) Urine Urobilinogen <2.0 (<2.0) mg/dL Ur Leukocyte Esterase Negative (Negative) Urine HCG, Qual (Not Detectd) Disposition Clinical Impression: Abdominal pain, Nausea & vomiting Disposition: HOME SELF-CARE Condition: Stable Instructions: Abdominal Pain (ED) Additional Instructions: Please use medication as discussed. Please follow up with family doctor if symptoms have not improved over the next two days. Please return to the emergency room if your symptoms increase or worsen or for any other concerns. Prescriptions: HYDROcodone/APAP 5-325MG [[place] 5-325] 1 - 2 tab PO Q6HR PRN #7 tab PRN Reason: Analgesia Ibuprofen [Motrin] 400 mg PO Q6HR #10 tab Referrals: Marielle Antony MD [Primary Care Provider] - 1-2 days Time of Disposition: 21:15
[2017-02-10 18:22] LABS: Appearance,Urine Clear (Clear); Bilirubin,Urine Negative (Negative); Glucose,Urine (UA) Negative (Negative); Ketones,Urine Negative (Negative); Leukocyte Esterase,Urine Negative (Negative); Nitrite,Urine Negative (Negative); PH, Urine 7.5 (5.0-8.0); Protein,Urine Negative (Negative); UA Billing (MACRO vs. MICRO) CHEM; Urobilinogen,Urine <2.0 mg/dL (<2.0)
[2017-02-10 18:23] LABS: Basophils % (A) 0 %; CH 32.2; CHCM 35.2; Eosinophils % (A) 1 %; HCT 36.3 % (34.0-46.0); HDW 2.64; HGB 12.5 gm/dL (11.4-16.0); Luc # (Auto) 0.13; Luc % (Auto) 3; Lymphocytes # (A) 1.4 k/uL (1.0-4.8); Lymphocytes % (A) 27 %; MCH 31.7 pg (25.0-35.0); MCHC 34.5 g/dL (31.0-37.0); MCV 91.9 fL (80.0-100.0); Mean Platelet Volume 8.1; Monocytes # (A) 0.2 k/uL (0-1.0); Monocytes % (A) 5 %; Neutrophils # (A) 3.4 k/uL (1.3-7.7); Neutrophils % (A) 65 %; RBC 3.95 m/uL (3.80-5.40); RDW 13.5 % (11.5-15.5); WBC 5.3 k/uL (3.8-10.6); WBC (Perox) 4.99
[2017-02-10 18:25] LABS: ALT 28 U/L (9-52); AST 15 U/L (14-36); Alkaline Phosphatase 75 U/L (38-126); Anion Gap 8 mmol/L; Blood Urea Nitrogen 13 mg/dL (7-17); Calcium 9.2 mg/dL (8.4-10.2); Carbon Dioxide 26 mmol/L (22-30); Chloride 105 mmol/L (98-107); Glucose 83 mg/dL (74-99); Non-African American GFR(MDRD) >60 (>60 ml/min/1.73 sqM); Potassium 4.2 mmol/L (3.5-5.1); Sodium 139 mmol/L (137-145); Total Protein 6.6 g/dL (6.3-8.2)
[2017-02-10 18:39] LABS: C Reactive Protein 7.4 mg/L (<10.0)
[2017-02-10] MEDS ORDERED: FAMOTIDINE 20 MG/2 ML VIAL IV STA (19:05)
--- NOTE | 2017-02-10 19:10 | CT ---
EXAMINATION TYPE: CT abdomen pelvis wo con DATE OF EXAM: 02/10/2017 COMPARISON: 02/15/2016 HISTORY: patient complains of generalized pelvic pain. CT DLP: 539.7 mGycm Automated exposure control for dose reduction was used. TECHNIQUE: Helical acquisition of images was performed from the lung bases through the pelvis. FINDINGS: Lung bases are clear of consolidation. There is no pleural effusion. There is small hiatal hernia. He art size is normal. Liver spleen pancreas appear normal. There are clips from cholecystectomy. Bile ducts are not dilated . There is no adrenal mass. Kidneys have normal size and contour. There is no hydronephrosis. Ureters are not dilated. There is no retroperitoneal adenopathy. There is no ascites. Appendix appears tarsha l. Bladder distends smoothly. There is no sign of a pelvic mass. I see no intestinal wall thickening. There is no ascites. Bony structures appear normal. IMPRESSION: NEGATIVE CT SCAN OF THE ABDOMEN AND PELVIS. THERE IS CLEARING OF THE SMALL AMOUNT OF FREE FLUID IN TH E CUL-DE-SAC COMPARED TO OLD EXAM. SMALL HIATAL HERNIA.
[2017-02-10 19:14] LABS: Erythrocyte Sedimentation Rate 17 mm/hr (0-20)
[2017-02-10 21:27] VITALS: BP 136/77; PULSE 73; RESP 19; TEMP 97.9
== END 2017-02-10 21:31 | disposition home or self-care (01) ==
LOC: EC 15:13
DX: R10.31 Right lower quadrant pain (principal); R11.2 Nausea with vomiting, unspecified; K21.9 Gastro-esophageal reflux disease without esophagitis; F32.9 Major depressive disorder, single episode, unspecified; Z98.890 Other specified postprocedural states; Z90.49 Acquired absence of other specified parts of digestive tract; Z88.0 Allergy status to penicillin; Z88.1 Allergy status to other antibiotic agents; Z91.048 Other nonmedicinal substance allergy status; Z91.011 Allergy to milk products; Z79.899 Other long term (current) drug therapy
CPT/HCPCS: 36415; 80053; 85652; 83605; 83690; 85025; 86140; 81003; 81025; 74176; 99284; 96374; 96375 ×2; 96376; 96361; J2405; J1170

== ENCOUNTER → 2017-03-15 | Outpatient (CLI) | payer OTHER ==
--- NOTE | 2017-03-15 10:19 | US ---
EXAMINATION TYPE: US abdomen complete DATE OF EXAM: 03/15/2017 COMPARISON: CT CLINICAL HISTORY: R10.9 RT SIDED ABD PAIN. EXAM MEASUREMENTS: Liver Length: 12.1 cm cm Gallbladder Wall: Surgically absent cm CBD: 0.3 cm Spleen: 10.5 cm Right Kidney: 9.1 x 4.4 x 4.6 cm Left Kidney: 10.5 x 5.3 x 4.4 cm Pancreas: visualized portions wnl Liver: wnl Gallbladder: Surgically absent CBD: wnl Spleen: wnl Right Kidney: No hydronephrosis or masses seen Left Kidney: No hydronephrosis or masses seen Upper IVC: wnl Abd Aorta: wnl The liver is homogenous. The intrahepatic portion of the IVC and proximal abdominal aorta are within normal limits. There is no evidence of cholelithiasis. Common bile duct is unremarkable. The visu alized portions of the pancreas are homogenous. The spleen is unremarkable. Kidneys are symmetric a nd free of hydronephrosis. No renal lesions are seen. IMPRESSION: No sonographic evidence of cholelithiasis or cholecystitis. Unremarkable abdominal ultras ound.
== END | disposition home or self-care (01) ==
LOC: RADUSWWP 09:38
PROVIDERS: ATTEND Family Medicine
DX: R10.9 Unspecified abdominal pain (principal)
CPT/HCPCS: 76700

== ENCOUNTER 2017-03-26 17:25 | Emergency (ER) | payer OTHER ==
[2017-03-26] MEDS ORDERED: SODIUM CHLORIDE 0.9% 1,000 ML IV STA (17:43)
--- NOTE | 2017-03-26 17:50 | ED ---
General Adult HPI - General Chief complaint: Abdominal Pain Stated complaint: female /abd pain Time Seen by Provider: 03/26/17 17:31 Source: patient, RN notes reviewed Mode of arrival: ambulatory Limitations: no limitations - History of Present Illness Initial comments: 26 yo female presents to the ER with cc of abdominal pain.patient states she's been having some lower pelvic pain for the past few days. Patient states she originally had a miscarriage at the beginning of February. Patient states everything seemed to clear up and she was sent home from her doctor. Patient states she started having this lower pelvic pain today so she called her doctor' s office they do not have any scheduled openings that she went to [facility] and she was sent here because they state she had some pain on the bimanual exam. Patient discharge or drainage. Denies any fever chills. Patient denies any nausea vomiting or diarrhea. Patient states that she is not currently having any time. Patient denies any recent fever, chills, shortness of breath, chest pain, back pain, nausea vomiting, numbness or tingling, dysuria or hematuria, constipation or diarrhea, headaches or visual changes, or any other current symptoms. - Related Data Home Medications Medication Instructions Recorded Confirmed Ranitidine HCl 150 mg PO BID 12/26/15 03/26/17 Citalopram Hydrobromide [CeleXA] 40 mg PO DAILY 03/26/17 03/26/17 Cyclobenzaprine [Flexeril] 5 mg PO HS PRN 03/26/17 03/26/17 Ibuprofen [Motrin] 800 mg PO DAILY PRN 03/26/17 03/26/17 Ondansetron [Zofran ODT] 8 mg PO Q12HR 03/26/17 03/26/17 [facility] Fe 28 1 tab PO DAILY 03/26/17 03/26/17 Allergies Allergy/AdvReac Type Severity Reaction Status Date / Time adhesive tape Allergy Rash/Hives Verified 03/26/17 17:52 aloe vera Allergy Rash/Hives Verified 03/26/17 17:52 azithromycin Allergy Rash/Hives Verified 03/26/17 17:52 metronidazole [From Flagyl] Allergy Rash/Hives Verified 03/26/17 17:52 Penicillins Allergy Rash/Hives Verified 03/26/17 17:52 milk AdvReac Abdominal Verified 03/26/17 17:52 Pain Review of Systems ROS Statement: Those systems with pertinent positive or pertinent negative responses have been documented in the HPI. ROS Other: All systems not noted in ROS Statement are negative. Past Medical History Past Medical History: GERD/Reflux Additional Past Medical History / Comment(s): endometriosis, polycystic ovarian syndrome History of Any Multi-Drug Resistant Organisms: None Reported Past Surgical History: Section, Cholecystectomy Additional Past Surgical History / Comment(s): laparoscopy x2 Past Anesthesia/Blood Transfusion Reactions: No Reported Reaction Past Psychological History: Anxiety, Depression Smoking Status: Never smoker Past Alcohol Use History: None Reported Past Drug Use History: None Reported - Past Family History Mother Family Medical History: Hyperlipidemia Additional Family Medical History / Comment(s): depression anxiety General Exam - General Exam Comments Initial Comments: General: The patient is awake and alert, in no distress, and does not appear acutely ill. Eye: Pupils are equal, round and reactive to light, extra-ocular movements are intact; there is normal conjunctiva bilaterally. No signs of icterus. Ears, nose, mouth and throat: There are moist mucous membranes. Neck: The neck is supple, there is no tenderness. Cardiovascular: There is a regular rate and rhythm. No murmur, rub or gallop is appreciated. Respiratory: Lungs are clear to auscultation, respirations are non-labored, breath sounds are equal. No wheezes, stridor, rales, or rhonchi. Gastrointestinal: Soft, non-distended, non-tender abdomen without masses or organomegaly noted. There is no rebound or guarding present. No CVA tenderness. Bowel sounds are unremarkable. Back: There is no tenderness to palpation in the midline. There is no obvious deformity. No rashes noted. Musculoskeletal: Normal ROM, no tenderness, There is no pedal edema. There is no calf tenderness or swelling. Sensation intact. Pulses equal bilaterally 2+. Neurological: CN II-XII intact, There are no obvious motor or sensory deficits. Coordination appears grossly intact. Speech is normal. Skin: Skin is warm and dry and no rashes or lesions are noted. Psychiatric: Cooperative, appropriate mood & affect, normal judgment. Limitations: no limitations Course Vital Signs 03/26/17 03/26/17 17:34 19:39 Temperature 98.5 F 98.9 F Pulse Rate 71 73 Respiratory 18 16 Rate Blood Pressure 156/84 133/68 O2 Sat by Pulse 99 100 Oximetry Medical Decision Making - Medical Decision Making 26-year-old female presents emergency department the chief complaint of pelvic pain. Patient information from [facility] was reviewed that does show that the patient had cervical motion tenderness with minimal discharge on exam. At this time patient's lab work and IS REVIEWED AND NEGATIVE. THIS TIME WE DID OFFER THE PATIENT STD PROPHYLAXIS TREATMENT WHICH SHE REFUSED. SHE STATES SHE DOES NOT HAVE AN STD.. WE DISCUSSED FOLLOW-UP WITH HER OB WE DISCUSSED RETURN PARAMETERS ALL HER QUESTIONS. SHE STATED SHE UNDERSTOOD. SHE WILL BE DISCHARGED. - Lab Data Result diagrams: 03/26/17 18:14 03/26/17 18:14 Lab Results 03/26/17 03/26/17 03/26/17 Range/Units 18:14 18:14 18:14 WBC 4.7 (3.8-10.6) k/uL RBC 4.02 (3.80-5.40) m/uL Hgb 12.8 (11.4-16.0) gm/dL Hct 36.8 (34.0-46.0) % MCV 91.6 (80.0-100.0) fL MCH 31.9 (25.0-35.0) pg MCHC 34.8 (31.0-37.0) g/dL RDW 13.2 (11.5-15.5) % Plt Count 218 (150-450) k/uL Neutrophils % 61 % Lymphocytes % 32 % Monocytes % 4 % Eosinophils % 0 % Basophils % 1 % Neutrophils # 2.9 (1.3-7.7) k/uL Lymphocytes # 1.5 (1.0-4.8) k/uL Monocytes # 0.2 (0-1.0) k/uL Eosinophils # 0.0 (0-0.7) k/uL Basophils # 0.0 (0-0.2) k/uL PT 9.6 (9.0-12.0) sec INR 0.9 (<1.2) APTT 24.4 (22.0-30.0) sec Sodium 140 (137-145) mmol/L Potassium 4.4 (3.5-5.1) mmol/L Chloride 106 (98-107) mmol/L Carbon Dioxide 24 (22-30) mmol/L Anion Gap 10 mmol/L BUN 10 (7-17) mg/dL Creatinine 0.80 (0.52-1.04) mg/dL Est GFR (MDRD) Af Amer >60 (>60 ml/min/1.73 sqM) Est GFR (MDRD) Non-Af >60 (>60 ml/min/1.73 sqM) Glucose 89 (74-99) mg/dL Calcium 9.7 (8.4-10.2) mg/dL Total Bilirubin 0.7 (0.2-1.3) mg/dL AST 19 (14-36) U/L ALT 35 (9-52) U/L Alkaline Phosphatase 78 (38-126) U/L Total Protein 7.0 (6.3-8.2) g/dL Albumin 4.2 (3.5-5.0) g/dL HCG, Quant <2.4 mIU/mL Urine Color Urine Appearance (Clear) Urine pH (5.0-8.0) Ur Specific [place] (1.001-1.035) Urine Protein (Negative) Urine Glucose (UA) (Negative) Urine Ketones (Negative) Urine Blood (Negative) Urine Nitrite (Negative) Urine Bilirubin (Negative) Urine Urobilinogen (<2.0) mg/dL Ur Leukocyte Esterase (Negative) 03/26/17 Range/Units 18:14 WBC (3.8-10.6) k/uL RBC (3.80-5.40) m/uL Hgb (11.4-16.0) gm/dL Hct (34.0-46.0) % MCV (80.0-100.0) fL MCH (25.0-35.0) pg MCHC (31.0-37.0) g/dL RDW (11.5-15.5) % Plt Count (150-450) k/uL Neutrophils % % Lymphocytes % % Monocytes % % Eosinophils % % Basophils % % Neutrophils # (1.3-7.7) k/uL Lymphocytes # (1.0-4.8) k/uL Monocytes # (0-1.0) k/uL Eosinophils # (0-0.7) k/uL Basophils # (0-0.2) k/uL PT (9.0-12.0) sec INR (<1.2) APTT (22.0-30.0) sec Sodium (137-145) mmol/L Potassium (3.5-5.1) mmol/L Chloride (98-107) mmol/L Carbon Dioxide (22-30) mmol/L Anion Gap mmol/L BUN (7-17) mg/dL Creatinine (0.52-1.04) mg/dL Est GFR (MDRD) Af Amer (>60 ml/min/1.73 sqM) Est GFR (MDRD) Non-Af (>60 ml/min/1.73 sqM) Glucose (74-99) mg/dL Calcium (8.4-10.2) mg/dL Total Bilirubin (0.2-1.3) mg/dL AST (14-36) U/L ALT (9-52) U/L Alkaline Phosphatase (38-126) U/L Total Protein (6.3-8.2) g/dL Albumin (3.5-5.0) g/dL HCG, Quant mIU/mL Urine Color Light Yellow Urine Appearance Clear (Clear) Urine pH 6.0 (5.0-8.0) Ur Specific [place] 1.013 (1.001-1.035) Urine Protein Negative (Negative) Urine Glucose (UA) Negative (Negative) Urine Ketones Negative (Negative) Urine Blood Negative (Negative) Urine Nitrite Negative (Negative) Urine Bilirubin Negative (Negative) Urine Urobilinogen <2.0 (<2.0) mg/dL Ur Leukocyte Esterase Negative (Negative) - Radiology Data Radiology results: report reviewed, image reviewed Disposition Clinical Impression: Pelvic pain Disposition: HOME SELF-CARE Condition: Stable Instructions: Pelvic Pain in Women (ED) Additional Instructions: Please use medication as discussed. Please follow up with family doctor if symptoms have not improved over the next two days. Please return to the emergency room if your symptoms increase or worsen or for any other concerns. Referrals: Marielle Antony MD [Primary Care Provider] - 1-2 days Time of Disposition: 19:59
[2017-03-26 18:27] LABS: Appearance,Urine Clear (Clear); Basophils % (A) 1 %; Bilirubin,Urine Negative (Negative); CH 32.9; Eosinophils % (A) 0 %; Glucose,Urine (UA) Negative (Negative); HCT 36.8 % (34.0-46.0); HDW 2.69; HGB 12.8 gm/dL (11.4-16.0); Ketones,Urine Negative (Negative); Leukocyte Esterase,Urine Negative (Negative); Luc # (Auto) 0.11; Luc % (Auto) 2; Lymphocytes # (A) 1.5 k/uL (1.0-4.8); Lymphocytes % (A) 32 %; MCH 31.9 pg (25.0-35.0); MCHC 34.8 g/dL (31.0-37.0); MCV 91.6 fL (80.0-100.0); Mean Platelet Volume 7.8; Monocytes # (A) 0.2 k/uL (0-1.0); Monocytes % (A) 4 %; Neutrophils # (A) 2.9 k/uL (1.3-7.7); Neutrophils % (A) 61 %; Nitrite,Urine Negative (Negative); Protein,Urine Negative (Negative); RBC 4.02 m/uL (3.80-5.40); RDW 13.2 % (11.5-15.5); Specific Gravity,Urine 1.013 (1.001-1.035); UA Billing (MACRO vs. MICRO) CHEM; Urobilinogen,Urine <2.0 mg/dL (<2.0); WBC 4.7 k/uL (3.8-10.6); WBC (Perox) 4.96
[2017-03-26] MEDS ORDERED: KETOROLAC 30 MG/ML 1 ML VIAL IVP STA (18:30)
[2017-03-26] MEDS ORDERED: ONDANSETRON 4 MG/2 ML VIAL IVP STA (18:30)
[2017-03-26 18:35] LABS: INR 0.9 (<1.2); Partial Thromboplastin Time 24.4 sec (22.0-30.0); Prothrombin Time 9.6 sec (9.0-12.0)
[2017-03-26 18:38] LABS: ALT 35 U/L (9-52); AST 19 U/L (14-36); Alkaline Phosphatase 78 U/L (38-126); Anion Gap 10 mmol/L; Blood Urea Nitrogen 10 mg/dL (7-17); Calcium 9.7 mg/dL (8.4-10.2); Carbon Dioxide 24 mmol/L (22-30); Chloride 106 mmol/L (98-107); Glucose 89 mg/dL (74-99); Non-African American GFR(MDRD) >60 (>60 ml/min/1.73 sqM); Potassium 4.4 mmol/L (3.5-5.1); Sodium 140 mmol/L (137-145); Total Bilirubin 0.7 mg/dL (0.2-1.3)
[2017-03-26 19:41] VITALS: RESP 16
[2017-03-26] MEDS ORDERED: ACETAMINOPHEN TAB 500 MG TAB PO STA (19:42)
--- NOTE | 2017-03-26 19:50 | US ---
EXAMINATION TYPE: US TRANSVAGINAL DATE OF EXAM: 03/26/2017 COMPARISON: Ultrasound 11/18/2016 CLINICAL HISTORY: Pain. TECHNIQUE: Transvaginal (TV) Date of LMP: 02/24/2017 EXAM MEASUREMENTS: Uterus: 7.3 x 3.7 x 4.8 cm Endometrial Stripe: 0.43 cm Right Ovary: 2.3 x 1.6 x 2.8 cm Left Ovary: 2.3 x 1.8 1.8 cm 1. Uterus: Anteverted wnl 2. Endometrium: wnl 3. Right Ovary: wnl 4. Left Ovary: wnl Spectral, color and waveform doppler imaging shows good arterial and venous flow within the ovaries ; there is no evidence for ovarian torsion. 5. Bilateral Adnexa: wnl 6. Posterior cul-de-sac: wnl IMPRESSION: NO ACUTE PROCESS.
[2017-03-26 20:17] VITALS: BP 121/77; PULSE 66; TEMP 98.1
== END 2017-03-26 20:18 | disposition home or self-care (01) ==
LOC: EC 17:25
DX: R10.2 Pelvic and perineal pain (principal); K21.9 Gastro-esophageal reflux disease without esophagitis; F32.9 Major depressive disorder, single episode, unspecified; Z79.3 Long term (current) use of hormonal contraceptives; Z79.899 Other long term (current) drug therapy; Z88.0 Allergy status to penicillin; Z88.1 Allergy status to other antibiotic agents; Z91.011 Allergy to milk products; Z91.048 Other nonmedicinal substance allergy status; Z91.09 Other allergy status, other than to drugs and biological substances; Z90.49 Acquired absence of other specified parts of digestive tract; Z98.890 Other specified postprocedural states
CPT/HCPCS: 36415; 80053; 85025; 85610; 85730; 81003; 84702; 93975; 76830; 99284; 96374; 96375; 96361 ×2; J2405; J1885

== ENCOUNTER 2017-04-02 17:11 | Emergency (ER) | payer OTHER ==
[2017-04-02 17:18] VITALS: TEMP 98.1
[2017-04-02] MEDS ORDERED: ONDANSETRON 4 MG/2 ML VIAL IVP STA (18:54)
[2017-04-02] MEDS ORDERED: HYDROmorphone 1 MG/ML 1 ML SYRINGE IVP STA (18:54)
[2017-04-02] MEDS ORDERED: SODIUM CHLORIDE 0.9% 500 ML IV STA (18:54)
--- NOTE | 2017-04-02 19:00 | ED ---
Abdominal Pain HPI - General Chief Complaint: Abdominal Pain Stated Complaint: Pelvic Pain Time Seen by Provider: 04/02/17 18:46 Source: patient Mode of arrival: ambulatory Limitations: no limitations - History of Present Illness Initial Comments: 26-year-old female patient presents to emergency department today for complaints of pelvic pain. Patient states that she has had this pain for the last week. Patient states that she was having the pain only with pressure to the area and with cervical motion during exam week ago however the pain has increased and is constantly present even without provocation. Patient states that she does have dysuria with this, when she urinates the burning is present in her lower abdomen as well. She states that she has had diarrhea for the last couple of days however this is not unusual for her. She denies any nausea or vomiting. Patient denies any recent fever, chills, shortness breath, chest pain, back pain, numbness, tingling, weakness, hematuria, headache, visual changes, or any other complaints. Patient was evaluated at [facility] a week ago and did have negative vaginal cultures. She was seen here as well and did have a pelvic ultrasound which was also negative. - Related Data Home Medications Medication Instructions Recorded Confirmed Ranitidine HCl 150 mg PO BID 12/26/15 04/02/17 Citalopram Hydrobromide [CeleXA] 40 mg PO DAILY 03/26/17 04/02/17 Cyclobenzaprine [Flexeril] 5 mg PO HS PRN 03/26/17 04/02/17 Ibuprofen [Motrin] 800 mg PO DAILY PRN 03/26/17 04/02/17 Ondansetron [Zofran ODT] 8 mg PO Q12HR PRN 03/26/17 04/02/17 Tri-Legest Fe 28 1 tab PO HS 03/26/17 04/02/17 Naproxen [Naprosyn] 500 mg PO Q12HR PRN 04/02/17 04/02/17 Previous Rx's Medication Instructions Recorded Doxycycline Hyclate 100 mg PO BID #28 tab 04/02/17 Ibuprofen [Motrin] 600 mg PO Q6HR PRN #30 tab 04/02/17 Allergies Allergy/AdvReac Type Severity Reaction Status Date / Time adhesive tape Allergy Rash/Hives Verified 04/02/17 19:08 aloe vera Allergy Rash/Hives Verified 04/02/17 19:08 azithromycin Allergy Rash/Hives Verified 04/02/17 19:08 metronidazole [From Flagyl] Allergy Rash/Hives Verified 04/02/17 19:08 Penicillins Allergy Rash/Hives Verified 04/02/17 19:08 milk AdvReac Abdominal Verified 04/02/17 19:08 Pain Review of Systems ROS Statement: Those systems with pertinent positive or pertinent negative responses have been documented in the HPI. ROS Other: All systems not noted in ROS Statement are negative. Past Medical History Past Medical History: GERD/Reflux Additional Past Medical History / Comment(s): endometriosis, polycystic ovarian syndrome History of Any Multi-Drug Resistant Organisms: None Reported Past Surgical History: Section, Cholecystectomy Additional Past Surgical History / Comment(s): laparoscopy x2 Past Anesthesia/Blood Transfusion Reactions: No Reported Reaction Past Psychological History: Anxiety, Depression Smoking Status: Never smoker Past Alcohol Use History: None Reported Past Drug Use History: None Reported - Past Family History Mother Family Medical History: Hyperlipidemia Additional Family Medical History / Comment(s): depression anxiety General Exam Limitations: no limitations General appearance: alert, in no apparent distress Eye exam: Present: normal appearance, PERRL, EOMI. Absent: scleral icterus, conjunctival injection, periorbital swelling ENT exam: Present: normal exam, normal oropharynx, mucous membranes moist Neck exam: Present: normal inspection. Absent: tenderness, meningismus, lymphadenopathy Respiratory exam: Present: normal lung sounds bilaterally. Absent: respiratory distress, wheezes, rales, rhonchi, stridor Cardiovascular Exam: Present: regular rate, normal rhythm, normal heart sounds. Absent: systolic murmur, diastolic murmur, rubs, gallop, clicks GI/Abdominal exam: Present: soft, tenderness (Suprapubic tenderness, right lower quadrant tenderness), normal bowel sounds. Absent: distended, guarding, rebound, rigid Extremities exam: Present: normal inspection, full ROM, normal capillary refill. Absent: tenderness, pedal edema, joint swelling, calf tenderness Back exam: Present: normal inspection Neurological exam: Present: alert, oriented X3, CN II-XII intact Psychiatric exam: Present: normal affect, normal mood Skin exam: Present: warm, dry, intact, normal color. Absent: rash Course Vital Signs 04/02/17 04/02/17 04/02/17 17:16 20:10 21:59 Temperature 98.1 F 98.1 F Pulse Rate 74 89 92 Respiratory 20 18 18 Rate Blood Pressure 127/79 128/78 131/76 O2 Sat by Pulse 98 98 98 Oximetry Medical Decision Making - Medical Decision Making 26-year-old female patient presents to emergency department today for evaluation of pelvic pain. Patient physical exam did reveal some tenderness over the suprapubic and right lower quadrant. Lab work and urinalysis is unremarkable. CT of the abdomen and pelvis did show a small amount of fluid in the cul-de-sac, otherwise negative CT of the abdomen and pelvis. As patient did have a pelvic exam with cultures done 1 week ago when symptoms started I did not perform this examination. She reports that those vaginal cultures were negative. She also had an ultrasound of the pelvis one week ago which was negative for any acute process. With lack of findings on CT, pelvic exam, and ultrasound it is felt that her symptoms could be related to pelvic inflammatory disease. She will be given Rocephin IM here, and a prescription for doxycycline for 2 weeks. She does have an appointment with her [employer] on 2016, she is urged to keep this appointment. She is instructed to increase fluids, utilize [id number] Tylenol and Motrin for pain control. She is instructed to return here immediately for any new, worsening, or concerning symptoms. Patient verbalized understanding and agreed with this plan. - Lab Data Result diagrams: 04/02/17 19:03 04/02/17 19:03 Lab Results 04/02/17 04/02/17 04/02/17 Range/Units 19:03 19:03 19:03 WBC 5.8 (3.8-10.6) k/uL RBC 4.02 (3.80-5.40) m/uL Hgb 12.7 (11.4-16.0) gm/dL Hct 36.9 (34.0-46.0) % MCV 91.9 (80.0-100.0) fL MCH 31.6 (25.0-35.0) pg MCHC 34.4 (31.0-37.0) g/dL RDW 13.1 (11.5-15.5) % Plt Count 230 (150-450) k/uL Neutrophils % 64 % Lymphocytes % 29 % Monocytes % 5 % Eosinophils % 0 % Basophils % 0 % Neutrophils # 3.7 (1.3-7.7) k/uL Lymphocytes # 1.7 (1.0-4.8) k/uL Monocytes # 0.3 (0-1.0) k/uL Eosinophils # 0.0 (0-0.7) k/uL Basophils # 0.0 (0-0.2) k/uL Sodium 138 (137-145) mmol/L Potassium 4.0 (3.5-5.1) mmol/L Chloride 103 (98-107) mmol/L Carbon Dioxide 25 (22-30) mmol/L Anion Gap 10 mmol/L BUN 16 (7-17) mg/dL Creatinine 0.81 (0.52-1.04) mg/dL Est GFR (MDRD) Af Amer >60 (>60 ml/min/1.73 sqM) Est GFR (MDRD) Non-Af >60 (>60 ml/min/1.73 sqM) Glucose 89 (74-99) mg/dL Calcium 9.4 (8.4-10.2) mg/dL Total Bilirubin 0.8 (0.2-1.3) mg/dL AST 16 (14-36) U/L ALT 31 (9-52) U/L Alkaline Phosphatase 75 (38-126) U/L Total Protein 7.2 (6.3-8.2) g/dL Albumin 4.1 (3.5-5.0) g/dL Amylase 52 (30-110) U/L Lipase 56 (23-300) U/L Urine Color Urine Appearance (Clear) Urine pH (5.0-8.0) Ur Specific [place] (1.001-1.035) Urine Protein (Negative) Urine Glucose (UA) (Negative) Urine Ketones (Negative) Urine Blood (Negative) Urine Nitrite (Negative) Urine Bilirubin (Negative) Urine Urobilinogen (<2.0) mg/dL Ur Leukocyte Esterase (Negative) Urine HCG, Qual Not Detected (Not Detectd) 04/02/17 Range/Units 19:03 WBC (3.8-10.6) k/uL RBC (3.80-5.40) m/uL Hgb (11.4-16.0) gm/dL Hct (34.0-46.0) % MCV (80.0-100.0) fL MCH (25.0-35.0) pg MCHC (31.0-37.0) g/dL RDW (11.5-15.5) % Plt Count (150-450) k/uL Neutrophils % % Lymphocytes % % Monocytes % % Eosinophils % % Basophils % % Neutrophils # (1.3-7.7) k/uL Lymphocytes # (1.0-4.8) k/uL Monocytes # (0-1.0) k/uL Eosinophils # (0-0.7) k/uL Basophils # (0-0.2) k/uL Sodium (137-145) mmol/L Potassium (3.5-5.1) mmol/L Chloride (98-107) mmol/L Carbon Dioxide (22-30) mmol/L Anion Gap mmol/L BUN (7-17) mg/dL Creatinine (0.52-1.04) mg/dL Est GFR (MDRD) Af Amer (>60 ml/min/1.73 sqM) Est GFR (MDRD) Non-Af (>60 ml/min/1.73 sqM) Glucose (74-99) mg/dL Calcium (8.4-10.2) mg/dL Total Bilirubin (0.2-1.3) mg/dL AST (14-36) U/L ALT (9-52) U/L Alkaline Phosphatase (38-126) U/L Total Protein (6.3-8.2) g/dL Albumin (3.5-5.0) g/dL Amylase (30-110) U/L Lipase (23-300) U/L Urine Color Light Yellow Urine Appearance Clear (Clear) Urine pH 6.5 (5.0-8.0) Ur Specific [place] 1.008 (1.001-1.035) Urine Protein Negative (Negative) Urine Glucose (UA) Negative (Negative) Urine Ketones Negative (Negative) Urine Blood Negative (Negative) Urine Nitrite Negative (Negative) Urine Bilirubin Negative (Negative) Urine Urobilinogen <2.0 (<2.0) mg/dL Ur Leukocyte Esterase Negative (Negative) Urine HCG, Qual (Not Detectd) - Radiology Data Radiology results: report reviewed, image reviewed CT abdomen and pelvis with contrast shows the lung bases are clear. There is no pleural effusion. There is a small hiatal hernia. Liver spleen pancreas appeared normal. Bile ducts are not dilated. There are clips from cholecystectomy. There is no adrenal mass. Kidney show satisfactory contrast opacification. There is no hydronephrosis. I see no intestinal wall thickening. There is probably a tiny amount of free fluid in the pelvis. Bladder distensibility. There is no sign of bowel obstruction. Appendix is not seen however there is no sign of appendicitis. Uterus is anteverted. Impression by Dr. Melgar shows there is probably a tiny amount of fluid in the cul-de-sac. Otherwise negative computed tomography scan of the abdomen and pelvis. KUB x-ray of the abdomen shows no sign of intestinal obstruction or pneumoperitoneum. Fecal pattern is normal. There are clips from cholecystectomy. Lung bases are clear. There are no pathologic calcifications over the kidneys. Impression by Dr. Melgar shows nonacute abdomen. No change. Disposition Clinical Impression: Abdominal pain, Pelvic inflammatory disease (PID) Disposition: HOME SELF-CARE Condition: Good Instructions: Pelvic Inflammatory Disease (ED), Abdominal Pain (ED) Additional Instructions: Increase fluids. Keep your appointment with your physician tomorrow. Return here immediately for any new, worsening, or concerning symptoms. Prescriptions: Doxycycline Hyclate 100 mg PO BID #28 tab Ibuprofen [Motrin] 600 mg PO Q6HR PRN #30 tab PRN Reason: Pain Referrals: Marielle Antony MD [Primary Care Provider] - 1-2 days Time of Disposition: 21:17
[2017-04-02 19:18] LABS: Basophils % (A) 0 %; CH 32.4; CHCM 35.4; Eosinophils % (A) 0 %; HCT 36.9 % (34.0-46.0); HDW 2.63; HGB 12.7 gm/dL (11.4-16.0); Luc # (Auto) 0.11; Luc % (Auto) 2; Lymphocytes # (A) 1.7 k/uL (1.0-4.8); Lymphocytes % (A) 29 %; MCH 31.6 pg (25.0-35.0); MCHC 34.4 g/dL (31.0-37.0); MCV 91.9 fL (80.0-100.0); Mean Platelet Volume 7.7; Monocytes # (A) 0.3 k/uL (0-1.0); Monocytes % (A) 5 %; Neutrophils # (A) 3.7 k/uL (1.3-7.7); Neutrophils % (A) 64 %; RBC 4.02 m/uL (3.80-5.40); RDW 13.1 % (11.5-15.5); WBC 5.8 k/uL (3.8-10.6); WBC (Perox) 6.18
[2017-04-02 19:19] LABS: Appearance,Urine Clear (Clear); Bilirubin,Urine Negative (Negative); Glucose,Urine (UA) Negative (Negative); Ketones,Urine Negative (Negative); Leukocyte Esterase,Urine Negative (Negative); Nitrite,Urine Negative (Negative); PH, Urine 6.5 (5.0-8.0); Protein,Urine Negative (Negative); Specific Gravity,Urine 1.008 (1.001-1.035); UA Billing (MACRO vs. MICRO) CHEM; Urobilinogen,Urine <2.0 mg/dL (<2.0)
[2017-04-02 19:29] LABS: ALT 31 U/L (9-52); AST 16 U/L (14-36); Alkaline Phosphatase 75 U/L (38-126); Amylase 52 U/L (30-110); Anion Gap 10 mmol/L; Blood Urea Nitrogen 16 mg/dL (7-17); Calcium 9.4 mg/dL (8.4-10.2); Carbon Dioxide 25 mmol/L (22-30); Chloride 103 mmol/L (98-107); Glucose 89 mg/dL (74-99); Non-African American GFR(MDRD) >60 (>60 ml/min/1.73 sqM); Sodium 138 mmol/L (137-145); Total Bilirubin 0.8 mg/dL (0.2-1.3); Total Protein 7.2 g/dL (6.3-8.2)
[2017-04-02] MEDS ORDERED: MAG HYDROX/AL HYDROX/SIMETH 30 ML, HYOSCYAMINE ELIXIR 10 ML, CIMETIDINE HCL 300 MG, LID... PO STA ×4 (19:49)
[2017-04-02] MEDS ORDERED: RX INFO: IV CONTRAST WAS GIVEN 1 EACH MISC MISCELLANE PRN (19:51)
--- NOTE | 2017-04-02 19:59 | XR ---
EXAMINATION TYPE: XR KUB DATE OF EXAM: 04/02/2017 COMPARISON: 04/20/2016 HISTORY: Suprapubic pain TECHNIQUE: 2 views FINDINGS: There is no sign of intestinal obstruction or pneumoperitoneum. Fecal pattern is normal. Th ere are clips from cholecystectomy. Lung bases are clear. There are no pathologic calcifications over the kidneys. IMPRESSION: Nonacute abdomen. No change.
[2017-04-02 20:10] VITALS: RESP 18
--- NOTE | 2017-04-02 20:44 | CT ---
EXAMINATION TYPE: CT abdomen pelvis w con DATE OF EXAM: 04/02/2017 COMPARISON: 02/10/2017 HISTORY: LOWER ABDOMINAL PAIN. CT DLP: 924.2 mGycm Automated exposure control for dose reduction was used. TECHNIQUE: Helical acquisition of images was performed from the lung bases through the pelvis. CONTRAST: Performed without Oral Contrast and with IV Contrast, patient injected with 100 mL of Omnipaque 300. FINDINGS: Lung bases are clear. There is no pleural effusion. There is a small hiatal hernia. Liver spleen pancreas appear normal. Bile ducts are not dilated. There are clips from cholecystectomy . There is no adrenal mass. Kidneys show satisfactory contrast opacification. There is no hydronephrosi s. I see no intestinal wall thickening. There is probably a tiny amount of free fluid in the pelvis. Bladder distends smoothly. There is no sign of a bowel obstruction. Appendix is not seen. There is no sign of appendicitis. I see no bony destructive process. Uterus is anteverted. IMPRESSION: THERE IS PROBABLY A TINY AMOUNT OF FLUID IN THE CUL-DE-SAC. OTHERWISE NEGATIVE CT SCAN OF THE ABDOMEN AND PELVIS.
[2017-04-02] MEDS ORDERED: cefTRIAXone 250 MG VIAL IM STA (21:41)
[2017-04-02] MEDS ORDERED: KETOROLAC 30 MG/ML 1 ML VIAL IVP STA (21:42)
[2017-04-02] MEDS ORDERED: DOXYCYCLINE 50 MG CAP PO STA (21:44)
[2017-04-02 22:01] VITALS: BP 131/76; PULSE 92
== END 2017-04-02 21:59 | disposition home or self-care (01) ==
LOC: EC 17:11
DX: N73.9 Female pelvic inflammatory disease, unspecified (principal); R10.31 Right lower quadrant pain; K21.9 Gastro-esophageal reflux disease without esophagitis; F32.9 Major depressive disorder, single episode, unspecified; F41.9 Anxiety disorder, unspecified; Z79.899 Other long term (current) drug therapy; Z90.49 Acquired absence of other specified parts of digestive tract; Z88.0 Allergy status to penicillin; Z88.1 Allergy status to other antibiotic agents; Z91.011 Allergy to milk products; Z91.048 Other nonmedicinal substance allergy status
CPT/HCPCS: 36415; 80053; 82150; 83690; 85025; 81003; 81025; 74000; 74177; 99284; 96374; 96375 ×2; 96361; 96372; J2405; J0696; J1885; J1170; Q9967

== ENCOUNTER 2017-04-07 17:30 | Emergency (ER) | payer OTHER ==
[2017-04-07 18:07] VITALS: BP 134/84; PULSE 88; RESP 20; TEMP 98.6
[2017-04-07] MEDS ORDERED: DICYCLOMINE 10 MG/ML 2 ML AMP IM STA (18:15)
[2017-04-07] MEDS ORDERED: ONDANSETRON ODT 4 MG TAB PO STA (18:15)
--- NOTE | 2017-04-07 18:19 | ED ---
General Adult HPI - General Chief complaint: Nausea/Vomiting/Diarrhea Stated complaint: abdominal pain, diarrhea Time Seen by Provider: 04/07/17 18:08 Source: patient, RN notes reviewed Mode of arrival: ambulatory Limitations: no limitations - History of Present Illness Initial comments: 26-year-old female presents emergency Department chief complaint of nausea vomiting and abdominal cramping. Patient states the symptoms started about 63 days ago when her daughter had nausea vomiting and similar like symptoms. She states she continues with nausea vomiting she's having cramping associated with the diarrhea. Patient states she's even during of water. Patient states that she has had normal urination. Patient states that she just could not fight the nausea home anymore so she thought that she should be seen. Patient denies any fever or chills with this.Patient denies any recent fever, chills, shortness of breath, chest pain, back pain, numbness or tingling, dysuria or hematuria, constipation, headaches or visual changes, or any other current symptoms. - Related Data Home Medications Medication Instructions Recorded Confirmed Ranitidine HCl 150 mg PO BID 12/26/15 04/02/17 Citalopram Hydrobromide [CeleXA] 40 mg PO DAILY 03/26/17 04/02/17 Cyclobenzaprine [Flexeril] 5 mg PO HS PRN 03/26/17 04/02/17 Ibuprofen [Motrin] 800 mg PO DAILY PRN 03/26/17 04/02/17 Ondansetron [Zofran ODT] 8 mg PO Q12HR PRN 03/26/17 04/02/17 Tri-Legest Fe 28 1 tab PO HS 03/26/17 04/02/17 Naproxen [Naprosyn] 500 mg PO Q12HR PRN 04/02/17 04/02/17 Previous Rx's Medication Instructions Recorded Doxycycline Hyclate 100 mg PO BID #28 tab 04/02/17 Ibuprofen [Motrin] 600 mg PO Q6HR PRN #30 tab 04/02/17 Dicyclomine [Bentyl] 10 mg PO TID #20 capsule 04/07/17 Ondansetron Odt [Zofran ODT] 4 mg PO Q8HR PRN #20 tab 04/07/17 Allergies Allergy/AdvReac Type Severity Reaction Status Date / Time adhesive tape Allergy Rash/Hives Verified 04/07/17 18:07 aloe vera Allergy Rash/Hives Verified 04/07/17 18:07 azithromycin Allergy Rash/Hives Verified 04/07/17 18:07 metronidazole [From Flagyl] Allergy Rash/Hives Verified 04/07/17 18:07 Penicillins Allergy Rash/Hives Verified 04/07/17 18:07 milk AdvReac Abdominal Verified 04/07/17 18:07 Pain Review of Systems ROS Statement: Those systems with pertinent positive or pertinent negative responses have been documented in the HPI. ROS Other: All systems not noted in ROS Statement are negative. Past Medical History Past Medical History: GERD/Reflux Additional Past Medical History / Comment(s): endometriosis, polycystic ovarian syndrome History of Any Multi-Drug Resistant Organisms: None Reported Past Surgical History: Section, Cholecystectomy Additional Past Surgical History / Comment(s): laparoscopy x2 Past Anesthesia/Blood Transfusion Reactions: No Reported Reaction Past Psychological History: Anxiety, Depression Smoking Status: Never smoker Past Alcohol Use History: None Reported Past Drug Use History: None Reported - Past Family History Mother Family Medical History: Hyperlipidemia Additional Family Medical History / Comment(s): depression anxiety General Exam - General Exam Comments Initial Comments: General: The patient is awake and alert, in no distress, and does not appear acutely ill. Eye: Pupils are equal. Ears, nose, mouth and throat: There are moist mucous membranes. Neck: The neck is supple, there is no tenderness. Cardiovascular: There is a regular rate and rhythm. No murmur, rub or gallop is appreciated. Respiratory: Lungs are clear to auscultation, respirations are non-labored, breath sounds are equal. No wheezes, stridor, rales, or rhonchi. Gastrointestinal: Soft, non-distended, non-tender abdomen without masses or organomegaly noted. There is no rebound or guarding present. No CVA tenderness. Bowel sounds are unremarkable. Back: There is no tenderness to palpation in the midline. There is no obvious deformity. No rashes noted. Musculoskeletal: Normal ROM, no tenderness, There is no pedal edema. There is no calf tenderness or swelling. Sensation intact. Pulses equal bilaterally 2+. Neurological: CN II-XII intact, There are no obvious motor or sensory deficits. Coordination appears grossly intact. Speech is normal. Skin: Skin is warm and dry and no rashes or lesions are noted. Psychiatric: Cooperative, appropriate mood & affect, normal judgment. Limitations: no limitations Course Vital Signs 04/07/17 18:05 Temperature 98.6 F Pulse Rate 88 Respiratory 20 Rate Blood Pressure 134/84 O2 Sat by Pulse 99 Oximetry Medical Decision Making - Medical Decision Making 26 shows male presents emergency 5 chief complaint of nausea vomiting diarrhea. Distant will start her on Zofran and Bentyl for home. Abdomen is soft and nontender story is that the daughter had similar symptoms earlier in the week. At this time the patient is in agreement plan all questions have been answered. Patient will be discharged home at this time. All her questions have been answered. Disposition Clinical Impression: Nausea & vomiting, Diarrhea Disposition: HOME SELF-CARE Condition: Stable Instructions: Acute Nausea and Vomiting (ED) Additional Instructions: Please use medication as discussed. Please follow up with family doctor if symptoms have not improved over the next two days. Please return to the emergency room if your symptoms increase or worsen or for any other concerns. Prescriptions: Dicyclomine [Bentyl] 10 mg PO TID #20 capsule Ondansetron Odt [Zofran ODT] 4 mg PO Q8HR PRN #20 tab PRN Reason: Nausea Referrals: Marielle Antony MD [Primary Care Provider] - 1-2 days Time of Disposition: 18:19
== END 2017-04-07 18:38 | disposition home or self-care (01) ==
LOC: EC 17:30
DX: R11.2 Nausea with vomiting, unspecified (principal); R19.7 Diarrhea, unspecified; K21.9 Gastro-esophageal reflux disease without esophagitis; F32.9 Major depressive disorder, single episode, unspecified; Z87.42 Personal history of other diseases of the female genital tract; Z90.49 Acquired absence of other specified parts of digestive tract; Z88.0 Allergy status to penicillin; Z88.1 Allergy status to other antibiotic agents; Z88.8 Allergy status to other drugs, medicaments and biological substances; Z91.011 Allergy to milk products; Z91.048 Other nonmedicinal substance allergy status; Z79.3 Long term (current) use of hormonal contraceptives; Z79.899 Other long term (current) drug therapy
CPT/HCPCS: 99283; 96372; J0500

== ENCOUNTER 2017-04-12 17:33 | Emergency (ER) | payer OTHER ==
[2017-04-12] MEDS ORDERED: WITCH HAZEL 1 EACH MED..PAD TOPICAL STA (18:13)
--- NOTE | 2017-04-12 18:17 | ED ---
Female Urogenital HPI - General Chief complaint: Urogenital Stated complaint: Female Time Seen by Provider: 04/12/17 17:57 Source: patient Mode of arrival: ambulatory Limitations: no limitations - History of Present Illness Initial comments: 26-year-old female patient presented to emergency department today for evaluation of genital burning and itching as well as perianal burning. She states that these symptoms started one to 2 days ago. She states that the itching and burning is near her labia, she states that she does not itch the area. She states it worsens significantly when she urinates and the urine runs over the irritated area. Patient is also complaining of burning perianally. States this worsens when she has bowel movements. Patient states that she has had diarrhea on and off for the last 2 months. Patient states that she has had consistent diarrhea for over a week. She states that she also has lower abdominal cramping and pain for the last 2 months as well. She states these symptoms started after experiencing a spontaneous . She has been seen here multiple times for this, she has had computed tomography scan of the abdomen and pelvis, ultrasound of the pelvis, and pelvic examination without any significant findings. She has been treated for possible pelvic inflammatory disease. She states that her OBGYN and primary care physician are aware of her symptoms. Her OBGYN has been attempting to adjust her control medication to improve her symptoms. Patient states it is not working. Patient denies any recent rash, fever, chills, shortness breath, chest pain, back pain, numbness, tingling, dizziness, weakness, hematuria, urinary urgency, urinary frequency, headache, visual changes, or any other complaints. Last Menstrual Period: 03/24/17 - Related Data Home Medications Medication Instructions Recorded Confirmed Ranitidine HCl 150 mg PO BID 12/26/15 04/12/17 Citalopram Hydrobromide [CeleXA] 40 mg PO DAILY 03/26/17 04/12/17 Tilia Fe 1 tab PO DAILY 04/12/17 04/12/17 Previous Rx's Medication Instructions Recorded Ondansetron Odt [Zofran ODT] 4 mg PO Q8HR PRN #20 tab 04/07/17 Fluconazole [Diflucan] 200 mg PO ONCE #2 tab 04/12/17 Allergies Allergy/AdvReac Type Severity Reaction Status Date / Time adhesive tape Allergy Rash/Hives Verified 04/12/17 18:26 aloe vera Allergy Rash/Hives Verified 04/12/17 18:26 azithromycin Allergy Rash/Hives Verified 04/12/17 18:26 metronidazole [From Flagyl] Allergy Rash/Hives Verified 04/12/17 18:26 Penicillins Allergy Rash/Hives Verified 04/12/17 18:26 milk AdvReac Abdominal Verified 04/12/17 18:26 Pain Review of Systems ROS Statement: Those systems with pertinent positive or pertinent negative responses have been documented in the HPI. ROS Other: All systems not noted in ROS Statement are negative. Past Medical History Past Medical History: GERD/Reflux Additional Past Medical History / Comment(s): endometriosis, polycystic ovarian syndrome History of Any Multi-Drug Resistant Organisms: None Reported Past Surgical History: Section, Cholecystectomy Additional Past Surgical History / Comment(s): laparoscopy x2 Past Anesthesia/Blood Transfusion Reactions: No Reported Reaction Past Psychological History: Anxiety, Depression Smoking Status: Never smoker Past Alcohol Use History: None Reported Past Drug Use History: None Reported - Past Family History Mother Family Medical History: Hyperlipidemia Additional Family Medical History / Comment(s): depression anxiety General Exam Limitations: no limitations General appearance: alert, in no apparent distress Respiratory exam: Present: normal lung sounds bilaterally. Absent: respiratory distress, wheezes, rales, rhonchi, stridor Cardiovascular Exam: Present: regular rate, normal rhythm, normal heart sounds. Absent: systolic murmur, diastolic murmur, rubs, gallop, clicks GI/Abdominal exam: Present: soft, tenderness (lower abdominal tenderness), normal bowel sounds. Absent: distended, guarding, rebound, rigid External exam: Present: erythema, other (Small abrasion noted to the left labia minora). Absent: normal external exam, swelling, lesions, ecchymosis Back exam: Present: normal inspection. Absent: CVA tenderness (R), CVA tenderness (L) Neurological exam: Present: alert, oriented X3, CN II-XII intact Psychiatric exam: Present: normal affect, normal mood Skin exam: Present: warm, dry, intact, normal color. Absent: rash Course Vital Signs 04/12/17 04/12/17 17:54 18:48 Temperature 98.4 F Pulse Rate 89 Respiratory 20 18 Rate Blood Pressure 126/69 O2 Sat by Pulse 98 Oximetry Medical Decision Making - Medical Decision Making 26 old female patient presented for evaluation of the genital itching and burning as well as perianal burning. Physical examination did reveal some vulvar erythema and abrasion. Shows a did have some mild erythema surrounding the perianal area. Patient has been having diarrhea on and off for the last 2 months, this is felt to be the cause of the perianal irritation. Patient is currently taking antibiotics so she will be treated for a vulvovaginal candidiasis. She is instructed to follow-up with her primary care physician or [facility] for her chronic diarrhea and abdominal pain. She is instructed to use Tucks pads as needed for discomfort. She is instructed to return here immediately for any new, worsening, or concerning symptoms. Patient verbalizes understanding and agrees with this plan. - Lab Data Lab Results 04/12/17 Range/Units 18:25 Urine Color Yellow Urine Appearance Clear (Clear) Urine pH 7.5 (5.0-8.0) Ur Specific [place] 1.019 (1.001-1.035) Urine Protein Negative (Negative) Urine Glucose (UA) Negative (Negative) Urine Ketones Negative (Negative) Urine Blood Small H (Negative) Urine Nitrite Negative (Negative) Urine Bilirubin Negative (Negative) Urine Urobilinogen <2.0 (<2.0) mg/dL Ur Leukocyte Esterase Negative (Negative) Urine RBC 1 (0-5) /hpf Urine WBC 1 (0-5) /hpf Ur Squamous Epith Cells 9 H (0-4) /hpf Urine Bacteria Rare H (None) /hpf Urine Mucus Rare H (None) /hpf Disposition Clinical Impression: Vulvar candidiasis, Diarrhea Disposition: HOME SELF-CARE Condition: Good Instructions: Vulvovaginal Candidiasis (ED) Additional Instructions: Take medication as directed. Use Tucks wipes as needed. Follow-up with her primary care physician for recheck in 1-2 days. Return here immediately for any new, worsening, or concerning symptoms. Prescriptions: Fluconazole [Diflucan] 200 mg PO ONCE #2 tab Referrals: Marielle Antony MD [Primary Care Provider] - 1-2 days Time of Disposition: 19:30
[2017-04-12 18:37] LABS: Appearance,Urine Clear (Clear); Bacteria,Urine Rare /hpf; Bilirubin,Urine Negative (Negative); Glucose,Urine (UA) Negative (Negative); Ketones,Urine Negative (Negative); Leukocyte Esterase,Urine Negative (Negative); Mucus,Urine Rare /hpf; Nitrite,Urine Negative (Negative); PH, Urine 7.5 (5.0-8.0); Particle Count 1627; Protein,Urine Negative (Negative); RBC,Urine 1 /hpf (0-5); Specific Gravity,Urine 1.019 (1.001-1.035); Squamous Epithelial Cell,Urine 9 /hpf (0-4); UA Billing (MACRO vs. MICRO) MICRO; Urobilinogen,Urine <2.0 mg/dL (<2.0); WBC,Urine 1 /hpf (0-5)
[2017-04-12 19:39] VITALS: BP 120/78; PULSE 78; RESP 16; TEMP 98.3
== END 2017-04-12 19:41 | disposition home or self-care (01) ==
LOC: EC 17:33
DX: B37.3 Candidiasis of vulva and vagina (principal); R19.7 Diarrhea, unspecified; K21.9 Gastro-esophageal reflux disease without esophagitis; F32.9 Major depressive disorder, single episode, unspecified; Z79.3 Long term (current) use of hormonal contraceptives; Z79.899 Other long term (current) drug therapy; Z88.0 Allergy status to penicillin; Z88.1 Allergy status to other antibiotic agents; Z91.011 Allergy to milk products; Z91.048 Other nonmedicinal substance allergy status; Z90.49 Acquired absence of other specified parts of digestive tract; Z98.890 Other specified postprocedural states
CPT/HCPCS: 81001; 87086; 99284

== ENCOUNTER 2017-04-29 16:17 | Emergency (ER) | payer OTHER ==
[2017-04-29] MEDS ORDERED: KETOROLAC 30 MG/ML 1 ML VIAL IVP STA (20:15)
--- NOTE | 2017-04-29 20:23 | ED ---
General Adult HPI - General Chief complaint: Recheck/Abnormal Lab/Rx Stated complaint: Sent by PCP "Juan sernaraj" Time Seen by Provider: 04/29/17 19:55 Source: patient Mode of arrival: ambulatory Limitations: no limitations - History of Present Illness Initial comments: patient presents with pain over her anterior right lower ribs. Patient states pain started 5 days ago, has been gradually worsening. Patient states she saw her primary care physician in the office today, who did not order any tests, told the patient if she wanted an immediate answer she should go to the ER. Patient states she started moving houses 2 weeks ago, had been carrying a lot of boxes. States pain is worse with palpation. Patient with history of cholecystectomy. Patient denies changes in appetite, abdominal pain, changes in bowel movements, urinary symptoms. Patient denies fevers, chills, nausea, vomiting. Patient denies shortness of breath, pleurisy, palpitations. Denies overlying skin changes. Pain is moderate, constant, worse with palpation, aching. Not tried any medicines at home for pain. MD Complaint: bubble by rib cage - Related Data Home Medications Medication Instructions Recorded Confirmed Ranitidine HCl 150 mg PO BID 12/26/15 04/29/17 Citalopram Hydrobromide [CeleXA] 40 mg PO HS 03/26/17 04/29/17 Tilia Fe 1 tab PO HS 04/12/17 04/29/17 Cyclobenzaprine [Flexeril] 10 mg PO DAILY PRN 04/29/17 04/29/17 Allergies Allergy/AdvReac Type Severity Reaction Status Date / Time adhesive tape Allergy Rash/Hives Verified 04/29/17 20:06 aloe vera Allergy Rash/Hives Verified 04/29/17 20:06 azithromycin Allergy Rash/Hives Verified 04/29/17 20:06 metronidazole [From Flagyl] Allergy Rash/Hives Verified 04/29/17 20:06 Penicillins Allergy Rash/Hives Verified 04/29/17 20:06 milk AdvReac Abdominal Verified 04/29/17 20:06 Pain Review of Systems ROS Statement: Those systems with pertinent positive or pertinent negative responses have been documented in the HPI. ROS Other: All systems not noted in ROS Statement are negative. Constitutional: Denies: fever, chills, weakness Eyes: Denies: vision change ENT: Denies: throat pain, congestion Respiratory: Denies: cough, dyspnea, wheezes Cardiovascular: Reports: chest pain. Denies: palpitations, dyspnea on exertion , edema, syncope Endocrine: Denies: fatigue Gastrointestinal: Denies: abdominal pain, nausea, vomiting, diarrhea, constipation Genitourinary: Denies: urgency, dysuria, frequency Musculoskeletal: Denies: back pain Skin: Denies: rash, lesions, change in color Neurological: Denies: headache, weakness, numbness, confusion Past Medical History Past Medical History: GERD/Reflux Additional Past Medical History / Comment(s): endometriosis, polycystic ovarian syndrome History of Any Multi-Drug Resistant Organisms: None Reported Past Surgical History: Section, Cholecystectomy Additional Past Surgical History / Comment(s): laparoscopy x2 Past Anesthesia/Blood Transfusion Reactions: No Reported Reaction Past Psychological History: Anxiety, Depression Smoking Status: Never smoker Past Alcohol Use History: None Reported Past Drug Use History: None Reported - Past Family History Mother Family Medical History: Hyperlipidemia Additional Family Medical History / Comment(s): depression anxiety General Exam - General Exam Comments Initial Comments: sitting up in bed. No acute distress. Conversing normally. Does not appear in pain. Well appearing. Limitations: no limitations General appearance: alert, in no apparent distress Head exam: Present: atraumatic, normocephalic Eye exam: Present: normal appearance, PERRL, EOMI ENT exam: Present: mucous membranes moist, normal external ear exam Neck exam: Present: normal inspection Respiratory exam: Present: normal lung sounds bilaterally, chest wall tenderness (point tenderness over lower costal margin of the right anterior chest, no overlying skin changes, no fluctuance or abscess palpated, no hernias appreciated. No soft tissue swelling or masses appreciated.). Absent: respiratory distress, wheezes, rales GI/Abdominal exam: Present: soft, other (Lind's sign negative). Absent: distended, tenderness, guarding Neurological exam: Present: alert, oriented X3 Psychiatric exam: Present: normal affect, normal mood Skin exam: Present: warm, dry, intact, normal color. Absent: rash, petechiae, pallor Course Vital Signs 04/29/17 04/29/17 16:39 21:13 Temperature 99.2 F 97.9 F Pulse Rate 68 71 Respiratory 17 12 Rate Blood Pressure 118/75 122/74 O2 Sat by Pulse 100 100 Oximetry Medical Decision Making - Medical Decision Making Toradol given for pain. Patient has point tenderness over lower costal margin, symptoms likely secondary to costochondritis, possible trauma from moving and lifting boxes. Patient Lind sign negative, no abdominal tenderness. Patient has no respiratory complaints, lung sounds are clear. Do not feel patient's etiology of pain is pulmonary in origin or intra-abdominal. Patient's blood work all within normal limits. Patient states pain improved following toradol injection. X-ray of ribs and lungs are normal. Patient's symptoms likely secondary to costochondritis. Should follow up with primary care physician. Patient instructed take Tylenol and Motrin as needed for pain at home. Patient understands and agrees. All questions answered. - Lab Data Result diagrams: 04/29/17 20:19 04/29/17 20:19 Lab Results 04/29/17 04/29/17 04/29/17 Range/Units 20:19 20:19 20:19 WBC 4.9 (3.8-10.6) k/uL RBC 3.98 (3.80-5.40) m/uL Hgb 12.7 (11.4-16.0) gm/dL Hct 37.7 (34.0-46.0) % MCV 94.7 (80.0-100.0) fL MCH 31.8 (25.0-35.0) pg MCHC 33.6 (31.0-37.0) g/dL RDW 13.3 (11.5-15.5) % Plt Count 193 (150-450) k/uL Neutrophils % 60 % Lymphocytes % 31 % Monocytes % 6 % Eosinophils % 0 % Basophils % 0 % Neutrophils # 2.9 (1.3-7.7) k/uL Lymphocytes # 1.5 (1.0-4.8) k/uL Monocytes # 0.3 (0-1.0) k/uL Eosinophils # 0.0 (0-0.7) k/uL Basophils # 0.0 (0-0.2) k/uL Sodium 137 (137-145) mmol/L Potassium 4.0 (3.5-5.1) mmol/L Chloride 105 (98-107) mmol/L Carbon Dioxide 24 (22-30) mmol/L Anion Gap 8 mmol/L BUN 13 (7-17) mg/dL Creatinine 0.78 (0.52-1.04) mg/dL Est GFR (MDRD) Af Amer >60 (>60 ml/min/1.73 sqM) Est GFR (MDRD) Non-Af >60 (>60 ml/min/1.73 sqM) Glucose 89 (74-99) mg/dL Calcium 9.5 (8.4-10.2) mg/dL Total Bilirubin 0.9 (0.2-1.3) mg/dL AST 16 (14-36) U/L ALT 33 (9-52) U/L Alkaline Phosphatase 69 (38-126) U/L Total Protein 7.0 (6.3-8.2) g/dL Albumin 4.0 (3.5-5.0) g/dL Lipase 49 (23-300) U/L Urine HCG, Qual Not Detected (Not Detectd) Disposition Clinical Impression: Rib pain on right side Disposition: HOME SELF-CARE Condition: Good Instructions: Costochondritis (ED) Additional Instructions: follow-up with your primary care physician. Return to ED if any new or worsening symptoms. Referrals: Marielle Antony MD [Primary Care Provider] - 1-2 days
[2017-04-29 20:34] LABS: Basophils % (A) 0 %; CH 32.5; CHCM 34.6; Eosinophils % (A) 0 %; HCT 37.7 % (34.0-46.0); HDW 2.56; HGB 12.7 gm/dL (11.4-16.0); Luc % (Auto) 2; Lymphocytes # (A) 1.5 k/uL (1.0-4.8); Lymphocytes % (A) 31 %; MCH 31.8 pg (25.0-35.0); MCHC 33.6 g/dL (31.0-37.0); MCV 94.7 fL (80.0-100.0); Monocytes # (A) 0.3 k/uL (0-1.0); Monocytes % (A) 6 %; Neutrophils # (A) 2.9 k/uL (1.3-7.7); Neutrophils % (A) 60 %; RBC 3.98 m/uL (3.80-5.40); RDW 13.3 % (11.5-15.5); WBC 4.9 k/uL (3.8-10.6); WBC (Perox) 4.78
--- NOTE | 2017-04-29 20:46 | XR ---
EXAMINATION TYPE: XR ribs RT w pa chest xray DATE OF EXAM: 04/29/2017 COMPARISON: NONE HISTORY: Pain TECHNIQUE: 5 views FINDINGS: Heart and mediastinum are normal. Lungs are clear. There is no sign of pleural effusion or pneumothorax. The right ribs appear intact. IMPRESSION: Normal chest. Normal right ribs.
[2017-04-29 20:51] LABS: ALT 33 U/L (9-52); AST 16 U/L (14-36); Alkaline Phosphatase 69 U/L (38-126); Anion Gap 8 mmol/L; Blood Urea Nitrogen 13 mg/dL (7-17); Calcium 9.5 mg/dL (8.4-10.2); Carbon Dioxide 24 mmol/L (22-30); Chloride 105 mmol/L (98-107); Glucose 89 mg/dL (74-99); Non-African American GFR(MDRD) >60 (>60 ml/min/1.73 sqM); Sodium 137 mmol/L (137-145); Total Bilirubin 0.9 mg/dL (0.2-1.3)
[2017-04-29 21:14] VITALS: BP 122/74; PULSE 71; RESP 12; TEMP 97.9
== END 2017-04-29 21:13 | disposition home or self-care (01) ==
LOC: EC 16:17
DX: R07.81 Pleurodynia (principal); K21.9 Gastro-esophageal reflux disease without esophagitis; F32.9 Major depressive disorder, single episode, unspecified; Z79.3 Long term (current) use of hormonal contraceptives; Z79.899 Other long term (current) drug therapy; Z88.0 Allergy status to penicillin; Z88.1 Allergy status to other antibiotic agents; Z91.011 Allergy to milk products; Z91.048 Other nonmedicinal substance allergy status
CPT/HCPCS: 99283 ×2; 96374 ×2; 36415; 80053; 83690; 85025; 81025; 71101; J1885

== ENCOUNTER 2017-05-30 13:56 | Emergency (ER) | payer OTHER ==
[2017-05-30 14:00] VITALS: TEMP 99
[2017-05-30] MEDS ORDERED: methylPREDNISolone SOD SUCCI 125 MG/2 ML VIAL IM ONE (14:46)
--- NOTE | 2017-05-30 15:10 | ED ---
General Adult HPI - General Chief complaint: Skin/Abscess/Foreign Body Stated complaint: Rash Time Seen by Provider: 05/30/17 14:37 Source: patient, RN notes reviewed Mode of arrival: ambulatory Limitations: no limitations - History of Present Illness Initial comments: This is a 26 year old female who presents to the emergency department with chief complaint of rash. Patient states that she presented here on Saturday and was prescribed Bactrim for bronchitis. She's taken 3 doses of Bactrim since she received a prescription. She states that at 1:00 in the morning she awoke with a rash on her trunk and bilateral thighs. Patient states that it is extremely itchy. She denies any difficulty breathing. Denies fever, chills, chest pain, abdominal pain, nausea or vomiting, constipation or diarrhea, dysuria or hematuria, numbness or tingling, headache or vision changes. - Related Data Home Medications Medication Instructions Recorded Confirmed Ranitidine HCl 150 mg PO BID 12/26/15 04/29/17 Citalopram Hydrobromide [CeleXA] 40 mg PO HS 03/26/17 04/29/17 Tilia Fe 1 tab PO HS 04/12/17 04/29/17 Cyclobenzaprine [Flexeril] 10 mg PO DAILY PRN 04/29/17 04/29/17 Previous Rx's Medication Instructions Recorded Wybx-Xvso-Cbq 6.25-5-10Mg/5Ml 5 ml PO Q4-6H 5 Days ml 05/19/17 [Phenergan VC with Codeine] Sulfamethox-Tmp 800-160Mg [Bactrim 1 tab PO Q12HR #20 tab 05/28/17 DS 800-160 mg] Albuterol Nebulized [Ventolin 2.5 mg INHALATION Q6H #20 nebu 05/30/17 Nebulized] predniSONE 20 mg PO DAILY #4 tab 05/30/17 Allergies Allergy/AdvReac Type Severity Reaction Status Date / Time adhesive tape Allergy Rash/Hives Verified 05/30/17 14:00 aloe vera Allergy Rash/Hives Verified 05/30/17 14:00 azithromycin Allergy Rash/Hives Verified 05/30/17 14:00 metronidazole [From Flagyl] Allergy Rash/Hives Verified 05/30/17 14:00 Penicillins Allergy Rash/Hives Verified 05/30/17 14:00 sulfamethoxazole Allergy Rash/Hives Verified 05/30/17 15:03 [From Bactrim] trimethoprim [From Bactrim] Allergy Rash/Hives Verified 05/30/17 15:03 milk AdvReac Abdominal Verified 05/30/17 14:00 Pain Review of Systems ROS Statement: Those systems with pertinent positive or pertinent negative responses have been documented in the HPI. ROS Other: All systems not noted in ROS Statement are negative. Past Medical History Past Medical History: GERD/Reflux Additional Past Medical History / Comment(s): endometriosis, polycystic ovarian syndrome History of Any Multi-Drug Resistant Organisms: None Reported Past Surgical History: Section, Cholecystectomy Additional Past Surgical History / Comment(s): laparoscopy x2 Past Anesthesia/Blood Transfusion Reactions: No Reported Reaction Past Psychological History: Anxiety, Depression Smoking Status: Never smoker Past Alcohol Use History: None Reported Past Drug Use History: None Reported - Past Family History Mother Family Medical History: Hyperlipidemia Additional Family Medical History / Comment(s): depression anxiety General Exam - General Exam Comments Initial Comments: General: Awake and alert, well-developed; in no apparent distress. Lying on ED stretcher. HEENT: Head atraumatic, normocephalic. Pupils are equal, round and reactive to light. Extraocular movements intact. Neck: Supple. Normal ROM. Cardiovascular: Regular rate and rhythm. No murmurs, rubs or gallops. Chest symmetrical. Respiratory: Lungs clear to auscultation bilaterally. No wheezes, rales or rhonchi. Normal respiratory effort with no use of accessory muscles. Skin: [place], warm and dry. Urticarial rash on trunk and bilateral thighs. Neurological: Alert and oriented x3. CN II-XII grossly intact. Speech is fluent and answers are appropriate. No focal neuro deficits. Psychiatric: Normal mood and affect. No overt signs of depression or anxiety noted. Limitations: no limitations Course Vital Signs 05/30/17 13:58 Temperature 99.0 F Pulse Rate 90 Respiratory 20 Rate Blood Pressure 129/82 O2 Sat by Pulse 99 Oximetry Medical Decision Making - Medical Decision Making This is a 26-year-old female who presents to emergency department with chief complaint of rash. Patient has an urticarial rash on trunk and thighs consistent with drug allergy. Patient advised to discontinue use of Bactrim. She received a dose of IM steroids in the emergency department. She will be discharged home with oral prednisone and prescription refill for nebulized albuterol. Patient is in no acute distress at this time. She is in agreement with plan and voiced understanding. All questions answered. Disposition Clinical Impression: Allergic drug rash due to sulfonamide Disposition: HOME SELF-CARE Condition: Good Instructions: Adverse Drug Reaction (ED) Additional Instructions: Please discontinue use of Bactrim. Please take medications as prescribed. Please follow up with primary care provider within 1-2 days. Return to emergency department if symptoms should worsen or any concerns arise. Prescriptions: Albuterol Nebulized [Ventolin Nebulized] 2.5 mg INHALATION Q6H #20 nebu predniSONE 20 mg PO DAILY #4 tab Referrals: Marielle Antony MD [Primary Care Provider] - 1-2 days Time of Disposition: 15:10
[2017-05-30 15:24] VITALS: BP 133/75; PULSE 83; RESP 16
== END 2017-05-30 15:23 | disposition home or self-care (01) ==
LOC: EC 13:56
DX: L23.89 Allergic contact dermatitis due to other agents (principal); T37.0X5A Adverse effect of sulfonamides, initial encounter; K21.9 Gastro-esophageal reflux disease without esophagitis; F32.9 Major depressive disorder, single episode, unspecified; Z91.048 Other nonmedicinal substance allergy status; Z88.1 Allergy status to other antibiotic agents; Z88.0 Allergy status to penicillin; Z88.2 Allergy status to sulfonamides; Z91.011 Allergy to milk products; Z79.899 Other long term (current) drug therapy
CPT/HCPCS: 99282; 96372; J2930

== ENCOUNTER 2017-06-11 16:35 | Emergency (ER) | payer OTHER ==
--- NOTE | 2017-06-11 17:28 | ED ---
Abdominal Pain HPI - General Chief Complaint: Abdominal Pain Stated Complaint: abd pain Time Seen by Provider: 06/11/17 17:10 Source: patient Mode of arrival: ambulatory Limitations: no limitations - History of Present Illness Initial Comments: 26 year-old female patient comes in with complaints of right lower pelvic pain. Patient states that this started approximately 2 weeks ago. States that initially the pain was intermittent, some days it would be there and some days it wouldn't. States that over the last 2 days the pain has been constant. She states that the pain is a sharp cramp-like pain that feels better when she holds pressure on it. She states her last menstrual period was 04/05/2017. She states there is a possibility that she is . She denies any vaginal bleeding or discharge. Denies any radiation of the pain to her back. She states that she is urinating more frequently. She denies any hematuria, dysuria , or urinary urgency. She states that she is able to eat and drink without difficulty. She denies any constipation or diarrhea. Reports that she has been nauseated. She denies any fever or chills. Patient denies any recent rash , shortness breath, chest pain, numbness, tingling, dizziness, weakness, headache, visual changes, or any other complaints. Patient has a past medical history significant for ovarian cysts and chronic abdominal pain. - Related Data Home Medications Medication Instructions Recorded Confirmed Ranitidine HCl 150 mg PO BID 12/26/15 06/11/17 Citalopram Hydrobromide [CeleXA] 40 mg PO HS 03/26/17 06/11/17 Tilia Fe 1 tab PO HS 04/12/17 06/11/17 Cyclobenzaprine [Flexeril] 10 mg PO DAILY PRN 04/29/17 06/11/17 Albuterol Nebulized [Ventolin 2.5 mg INHALATION RT-QID PRN 06/11/17 06/11/17 Nebulized] Allergies Allergy/AdvReac Type Severity Reaction Status Date / Time adhesive tape Allergy Rash/Hives Verified 06/11/17 17:53 aloe vera Allergy Rash/Hives Verified 06/11/17 17:53 azithromycin Allergy Rash/Hives Verified 06/11/17 17:53 metronidazole [From Flagyl] Allergy Rash/Hives Verified 06/11/17 17:53 Penicillins Allergy Rash/Hives Verified 06/11/17 17:53 sulfamethoxazole Allergy Rash/Hives Verified 06/11/17 17:53 [From Bactrim] trimethoprim [From Bactrim] Allergy Rash/Hives Verified 06/11/17 17:53 milk AdvReac Abdominal Verified 06/11/17 17:53 Pain Review of Systems ROS Statement: Those systems with pertinent positive or pertinent negative responses have been documented in the HPI. ROS Other: All systems not noted in ROS Statement are negative. Past Medical History Past Medical History: GERD/Reflux Additional Past Medical History / Comment(s): endometriosis, polycystic ovarian syndrome History of Any Multi-Drug Resistant Organisms: None Reported Past Surgical History: Section, Cholecystectomy Additional Past Surgical History / Comment(s): laparoscopy x2 Past Anesthesia/Blood Transfusion Reactions: No Reported Reaction Past Psychological History: Anxiety, Depression Smoking Status: Never smoker Past Alcohol Use History: None Reported Past Drug Use History: None Reported - Past Family History Mother Family Medical History: Hyperlipidemia Additional Family Medical History / Comment(s): depression anxiety General Exam Limitations: no limitations General appearance: alert, in no apparent distress, other (This is a well- developed, well-nourished adult female patient in no acute distress. Vital signs upon presentation were temperature 99.3F, pulse 90, respirations 18, blood pressure 119/72, pulse ox 99% on room air.) ENT exam: Present: normal exam, normal oropharynx, mucous membranes moist Neck exam: Present: normal inspection. Absent: tenderness, meningismus, lymphadenopathy Respiratory exam: Present: normal lung sounds bilaterally. Absent: respiratory distress, wheezes, rales, rhonchi, stridor Cardiovascular Exam: Present: regular rate, normal rhythm, normal heart sounds. Absent: systolic murmur, diastolic murmur, rubs, gallop, clicks GI/Abdominal exam: Present: soft, normal bowel sounds. Absent: distended, tenderness, guarding, rebound, rigid Back exam: Present: normal inspection. Absent: CVA tenderness (R), CVA tenderness (L) Neurological exam: Present: alert, oriented X3, CN II-XII intact Psychiatric exam: Present: normal affect, normal mood Skin exam: Present: warm, dry, intact, normal color. Absent: rash Course Vital Signs 06/11/17 16:39 Temperature 99.3 F Pulse Rate 90 Respiratory 18 Rate Blood Pressure 119/72 O2 Sat by Pulse 99 Oximetry Medical Decision Making - Medical Decision Making 26 year-old female patient presented to the emergency department today for evaluation of right lower quadrant abdominal pain. Patient also had some nausea and frequency of urination with this. Urinalysis was obtained and was within normal limits. HCG was detected on urine sample. Labs were added, quantitative hCG at this time was 706. Ultrasound was performed and did show a possible tiny intrauterine gestational sac measuring about 2 mm. Patient vital signs are stable. She has not had any nausea or vomiting with this. States she is having normal bowel movements. She is able to eat and drink without difficulty. We will discharge patient home at this time with instructions to obtain a repeat hCG level in 72 hours. She is instructed to follow-up with her DENTAL HYGIENE INSTRUCTOR as soon as possible. She is educated regarding return parameters, including s/sx of appendicitis and other non- related etiologies. She is instructed to return here immediately for any new, worsening, or concerning symptoms. She verbalizes understanding and agrees with this plan. - Lab Data Result diagrams: 06/11/17 18:09 06/11/17 18:09 Lab Results 06/11/17 06/11/17 06/11/17 Range/Units 17:21 17:21 18:09 WBC (3.8-10.6) k/uL RBC (3.80-5.40) m/uL Hgb (11.4-16.0) gm/dL Hct (34.0-46.0) % MCV (80.0-100.0) fL MCH (25.0-35.0) pg MCHC (31.0-37.0) g/dL RDW (11.5-15.5) % Plt Count (150-450) k/uL Neutrophils % % Lymphocytes % % Monocytes % % Eosinophils % % Basophils % % Neutrophils # (1.3-7.7) k/uL Lymphocytes # (1.0-4.8) k/uL Monocytes # (0-1.0) k/uL Eosinophils # (0-0.7) k/uL Basophils # (0-0.2) k/uL Sodium 138 (137-145) mmol/L Potassium 4.2 (3.5-5.1) mmol/L Chloride 106 (98-107) mmol/L Carbon Dioxide 24 (22-30) mmol/L Anion Gap 8 mmol/L BUN 9 (7-17) mg/dL Creatinine 0.77 (0.52-1.04) mg/dL Est GFR (MDRD) Af Amer >60 (>60 ml/min/1.73 sqM) Est GFR (MDRD) Non-Af >60 (>60 ml/min/1.73 sqM) Glucose 93 (74-99) mg/dL Calcium 9.3 (8.4-10.2) mg/dL Total Bilirubin 0.9 (0.2-1.3) mg/dL AST 21 (14-36) U/L ALT 31 (9-52) U/L Alkaline Phosphatase 70 (38-126) U/L Total Protein 6.9 (6.3-8.2) g/dL Albumin 3.9 (3.5-5.0) g/dL Amylase 50 (30-110) U/L Lipase 53 (23-300) U/L HCG, Quant 706.7 mIU/mL Urine Color Yellow Urine Appearance Clear (Clear) Urine pH 7.5 (5.0-8.0) Ur Specific [place] 1.016 (1.001-1.035) Urine Protein Negative (Negative) Urine Glucose (UA) Negative (Negative) Urine Ketones Negative (Negative) Urine Blood Negative (Negative) Urine Nitrite Negative (Negative) Urine Bilirubin Negative (Negative) Urine Urobilinogen <2.0 (<2.0) mg/dL Ur Leukocyte Esterase Negative (Negative) Urine HCG, Qual Detected (Not Detectd) 06/11/17 Range/Units 18:09 WBC 7.0 (3.8-10.6) k/uL RBC 4.14 (3.80-5.40) m/uL Hgb 12.9 (11.4-16.0) gm/dL Hct 37.6 (34.0-46.0) % MCV 90.8 (80.0-100.0) fL MCH 31.1 (25.0-35.0) pg MCHC 34.2 (31.0-37.0) g/dL RDW 12.4 (11.5-15.5) % Plt Count 237 (150-450) k/uL Neutrophils % 77 % Lymphocytes % 16 % Monocytes % 5 % Eosinophils % 0 % Basophils % 0 % Neutrophils # 5.4 (1.3-7.7) k/uL Lymphocytes # 1.1 (1.0-4.8) k/uL Monocytes # 0.4 (0-1.0) k/uL Eosinophils # 0.0 (0-0.7) k/uL Basophils # 0.0 (0-0.2) k/uL Sodium (137-145) mmol/L Potassium (3.5-5.1) mmol/L Chloride (98-107) mmol/L Carbon Dioxide (22-30) mmol/L Anion Gap mmol/L BUN (7-17) mg/dL Creatinine (0.52-1.04) mg/dL Est GFR (MDRD) Af Amer (>60 ml/min/1.73 sqM) Est GFR (MDRD) Non-Af (>60 ml/min/1.73 sqM) Glucose (74-99) mg/dL Calcium (8.4-10.2) mg/dL Total Bilirubin (0.2-1.3) mg/dL AST (14-36) U/L ALT (9-52) U/L Alkaline Phosphatase (38-126) U/L Total Protein (6.3-8.2) g/dL Albumin (3.5-5.0) g/dL Amylase (30-110) U/L Lipase (23-300) U/L HCG, Quant mIU/mL Urine Color Urine Appearance (Clear) Urine pH (5.0-8.0) Ur Specific [place] (1.001-1.035) Urine Protein (Negative) Urine Glucose (UA) (Negative) Urine Ketones (Negative) Urine Blood (Negative) Urine Nitrite (Negative) Urine Bilirubin (Negative) Urine Urobilinogen (<2.0) mg/dL Ur Leukocyte Esterase (Negative) Urine HCG, Qual (Not Detectd) - Radiology Data Radiology results: report reviewed, image reviewed Transvaginal, and transabdominal ultrasound was obtained, report was reviewed in its entirety. Impression by Dr. Melgar shows possible tiny early intrauterine gestational sac it only measures 2 mm. No adnexal mass or free fluid is noted. Disposition Clinical Impression: Abdominal pain during in first trimester Disposition: HOME SELF-CARE Condition: Good Instructions: (ED), Abdominal Pain in (ED) Additional Instructions: Increase fluids. Take Tylenol for pain control. Follow-up with DENTAL HYGIENE INSTRUCTOR as soon as possible. Have repeat hCG performed in 72 hours. Return here immediately for any new, worsening, or concerning symptoms. Referrals: Marielle Antony MD [Primary Care Provider] - 1-2 days Time of Disposition: 19:14
[2017-06-11 17:30] LABS: Appearance,Urine Clear (Clear); Bilirubin,Urine Negative (Negative); Glucose,Urine (UA) Negative (Negative); Ketones,Urine Negative (Negative); Leukocyte Esterase,Urine Negative (Negative); Nitrite,Urine Negative (Negative); PH, Urine 7.5 (5.0-8.0); Protein,Urine Negative (Negative); Specific Gravity,Urine 1.016 (1.001-1.035); UA Billing (MACRO vs. MICRO) CHEM; Urobilinogen,Urine <2.0 mg/dL (<2.0)
[2017-06-11 18:26] LABS: ALT 31 U/L (9-52); AST 21 U/L (14-36); Alkaline Phosphatase 70 U/L (38-126); Amylase 50 U/L (30-110); Anion Gap 8 mmol/L; Basophils % (A) 0 %; Blood Urea Nitrogen 9 mg/dL (7-17); CH 31.5; CHCM 34.8; Calcium 9.3 mg/dL (8.4-10.2); Carbon Dioxide 24 mmol/L (22-30); Chloride 106 mmol/L (98-107); Eosinophils % (A) 0 %; Glucose 93 mg/dL (74-99); HCT 37.6 % (34.0-46.0); HDW 2.67; HGB 12.9 gm/dL (11.4-16.0); Luc # (Auto) 0.14; Luc % (Auto) 2; Lymphocytes # (A) 1.1 k/uL (1.0-4.8); Lymphocytes % (A) 16 %; MCH 31.1 pg (25.0-35.0); MCHC 34.2 g/dL (31.0-37.0); MCV 90.8 fL (80.0-100.0); Mean Platelet Volume 6.9; Monocytes # (A) 0.4 k/uL (0-1.0); Monocytes % (A) 5 %; Neutrophils # (A) 5.4 k/uL (1.3-7.7); Neutrophils % (A) 77 %; Non-African American GFR(MDRD) >60 (>60 ml/min/1.73 sqM); Potassium 4.2 mmol/L (3.5-5.1); RBC 4.14 m/uL (3.80-5.40); RDW 12.4 % (11.5-15.5); Sodium 138 mmol/L (137-145); Total Bilirubin 0.9 mg/dL (0.2-1.3); Total Protein 6.9 g/dL (6.3-8.2); WBC (Perox) 6.74
--- NOTE | 2017-06-11 19:03 | US ---
EXAMINATION TYPE: US OB <=14 wks transvag DATE OF EXAM: 06/11/2017 COMPARISON: NONE CLINICAL HISTORY: Pain. Cramping EXAM PERFORMED: Transvaginal (TV) and Transabdominal (TA) EXAM MEASUREMENTS: GESTATIONAL AGE / DATING Physician Established: Not yet established Dates by LMP: (9 weeks/4 days) EDC: 01/10/2018 Dates by First Scan: No previous this is first scan Dates by Current Scan for: Unable to date by today's study MATERNAL ANATOMY Uterus: 7.6 x 3.9 x 5.3cm Right Ovary: 2.5 x 2.2 x 2.4cm Left Ovary: 2.4 x 1.4 x 1.9cm Post CDS / Adnexa: wnl Presence of free fluid: no Presence of corpus luteal cyst: no Presence of subchorionic bleed: no GESTATION / SURVEY CRL: Not seen at this time MSD: 0.2cm Yolk Sac (normal less than 6mm): Not seen at this time IUP: No IUP seen at this time Date of LMP: 04/05/2017 Beta HcG (if available): Not available at this time Appears to be a small gestational sac visualized measuring 0.2cm IMPRESSION: There is a possible tiny early intrauterine gestational sac that only measures 2 mm. No adnexal mass or free fluid.
[2017-06-11 19:32] VITALS: BP 97/50; PULSE 77; RESP 20; TEMP 98.5
== END 2017-06-11 19:31 | disposition home or self-care (01) ==
LOC: EC 16:35
DX: O99.89 Other specified diseases and conditions complicating pregnancy, childbirth and the puerperium (principal); R10.31 Right lower quadrant pain; R11.0 Nausea; R35.0 Frequency of micturition; Z32.01 Encounter for pregnancy test, result positive; O99.611 Diseases of the digestive system complicating pregnancy, first trimester; K21.9 Gastro-esophageal reflux disease without esophagitis; O99.341 Other mental disorders complicating pregnancy, first trimester; F32.9 Major depressive disorder, single episode, unspecified; F41.9 Anxiety disorder, unspecified; Z3A.09 9 weeks gestation of pregnancy; Z79.899 Other long term (current) drug therapy; Z91.011 Allergy to milk products; Z88.0 Allergy status to penicillin; Z88.2 Allergy status to sulfonamides; Z88.1 Allergy status to other antibiotic agents; Z91.048 Other nonmedicinal substance allergy status
CPT/HCPCS: 36415; 76801; 76817; 80053; 81003; 81025; 82150; 83690; 84702; 85025; 99284

== ENCOUNTER → 2017-06-14 | Outpatient (CLI) | payer OTHER | END | disposition home or self-care (01) | LOC: LABWHC1 10:06 | PROVIDERS: ATTEND Nurse Practitioner | DX: O26.891 Other specified pregnancy related conditions, first trimester (principal); Z3A.00 Weeks of gestation of pregnancy not specified | CPT/HCPCS: 36415; 84702 ==

== ENCOUNTER → 2017-07-11 | Outpatient (CLI) | payer OTHER ==
--- NOTE | 2017-07-11 10:44 | US ---
EXAMINATION TYPE: US OB <=14 wks transvag DATE OF EXAM: 07/11/2017 COMPARISON: NONE CLINICAL HISTORY: O99.211 Obesity affecting . Confirm Dates EXAM PERFORMED: Transabdominal (TA) EXAM MEASUREMENTS: GESTATIONAL AGE / DATING Physician Established: (9 weeks/4 days) EDC: 02/09/2018 Dates by LMP: (9 weeks/4 days) EDC: 02/09/2018 Dates by First Scan: No prior Dates by Current Scan for: (8 weeks/6 days) EDC: 02/14/2018 MATERNAL ANATOMY Uterus: 9.8 x 5.8 x 6.0 cm Right Ovary: 2.9 x 2.0 x 2.1 cm Left Ovary: 2.7 x 1.7 x 1.9 cm Post CDS / Adnexa: wnl Presence of free fluid: No Presence of subchorionic bleed: No GESTATION / SURVEY CRL: 2.2 cm (8 weeks/6 days) MSD: wnl Yolk Sac (normal less than 6mm): 3mm Heart Rate: 171 bpm Rhythm: Normal IUP: Viable IUP IMPRESSION: Single, viable IUP, No abnormality seen at this time
== END | disposition home or self-care (01) ==
LOC: RADUSWWP 10:07
PROVIDERS: ATTEND Obstetrics & Gynecology
DX: O99.211 Obesity complicating pregnancy, first trimester (principal); Z3A.09 9 weeks gestation of pregnancy
CPT/HCPCS: 76801

== ENCOUNTER 2017-08-07 11:36 | Emergency (ER) | payer OTHER ==
[2017-08-07 11:56] VITALS: TEMP 98.4
--- NOTE | 2017-08-07 12:37 | ED ---
General Adult HPI - General Chief complaint: Abdominal Pain Stated complaint: Abdominal pain/ 12 weeks Time Seen by Provider: 08/07/17 12:10 Source: patient, RN notes reviewed Mode of arrival: wheelchair Limitations: no limitations - History of Present Illness Initial comments: 27-year-old female presents to the emergency department with a chief complaint of pelvic cramping in . Patient states that this started this morning. She states she is a . She states that she has had an ultrasound weeks ago to confirm . She states there is been no nausea vomiting fever chills with this. She states she hasn't had any vaginal bleeding or discharge. She denies any changes in urination or bowel movements. Patient was concerned due to her symptoms so she thought that she should be evaluated. Patient denies any recent fever, chills, shortness of breath, chest pain, back pain, nausea vomiting, numbness or tingling, dysuria or hematuria, constipation or diarrhea, headaches or visual changes, or any other current symptoms. - Related Data Home Medications Medication Instructions Recorded Confirmed Ranitidine HCl 150 mg PO BID 12/26/15 08/07/17 Pnv,Calcium 72/Iron/Folic Acid 1 tab PO DAILY 07/17/17 08/07/17 [ Plus Tablet] Previous Rx's Medication Instructions Recorded Metoclopramide HCl [Reglan] 10 mg PO TID #20 tablet 07/17/17 Allergies Allergy/AdvReac Type Severity Reaction Status Date / Time adhesive tape Allergy Rash/Hives Verified 08/07/17 12:05 aloe vera Allergy Rash/Hives Verified 08/07/17 12:05 azithromycin Allergy Rash/Hives Verified 08/07/17 12:05 metronidazole [From Flagyl] Allergy Rash/Hives Verified 08/07/17 12:05 Penicillins Allergy Rash/Hives Verified 08/07/17 12:05 sulfamethoxazole Allergy Rash/Hives Verified 08/07/17 12:05 [From Bactrim] trimethoprim [From Bactrim] Allergy Rash/Hives Verified 08/07/17 12:05 milk AdvReac Abdominal Verified 08/07/17 12:05 Pain Review of Systems ROS Statement: Those systems with pertinent positive or pertinent negative responses have been documented in the HPI. ROS Other: All systems not noted in ROS Statement are negative. Past Medical History Past Medical History: GERD/Reflux Additional Past Medical History / Comment(s): endometriosis, polycystic ovarian syndrome History of Any Multi-Drug Resistant Organisms: None Reported Past Surgical History: Section, Cholecystectomy Additional Past Surgical History / Comment(s): laparoscopy x2 Past Anesthesia/Blood Transfusion Reactions: No Reported Reaction Past Psychological History: Anxiety, Depression Smoking Status: Never smoker Past Alcohol Use History: None Reported Past Drug Use History: None Reported - Past Family History Mother Family Medical History: Hyperlipidemia Additional Family Medical History / Comment(s): depression anxiety General Exam - General Exam Comments Initial Comments: General: The patient is awake and alert, in no distress, and does not appear acutely ill. Eye: Pupils are equal, round and reactive to light. Ears, nose, mouth and throat: There are moist mucous membranes. Neck: The neck is supple, there is no tenderness. Cardiovascular: There is a regular rate and rhythm. No murmur, rub or gallop is appreciated. Respiratory: Lungs are clear to auscultation, respirations are non-labored, breath sounds are equal. No wheezes, stridor, rales, or rhonchi. Gastrointestinal: Soft, non-distended, non-tender abdomen without masses or organomegaly noted. There is no rebound or guarding present. No CVA tenderness. Bowel sounds are unremarkable. Back: There is no tenderness to palpation in the midline. There is no obvious deformity. No rashes noted. Musculoskeletal: Normal ROM, no tenderness, There is no pedal edema. There is no calf tenderness or swelling. Sensation intact. Pulses equal bilaterally 2+. Neurological: CN II-XII intact, There are no obvious motor or sensory deficits. Coordination appears grossly intact. Speech is normal. Skin: Skin is warm and dry and no rashes or lesions are noted. Psychiatric: Cooperative, appropriate mood & affect, normal judgment. Limitations: no limitations Course Vital Signs 08/07/17 11:53 Temperature 98.4 F Pulse Rate 94 Respiratory 20 Rate Blood Pressure 120/70 O2 Sat by Pulse 100 Oximetry Medical Decision Making - Medical Decision Making 27-year-old female presents to the emergency department with a chief complaint of abdominal cramping and . Patient's history of miscarriages in the past. At this time LAB WORK WAS REVIEWED. AT THIS TIME WE DID DISCUSS RESULTS. WE DISCUSSED CLOSE FOLLOW-UP WITH CURATOR RETURN FOR HOURS ALL QUESTIONS. PATIENT STATED THAT SHE UNDERSTOOD SHE IS AGREEMENT THIS PLAN. ALL QUESTIONS HAVE BEEN ANSWERED. SHE WILL BE DISCHARGED. - Lab Data Result diagrams: 08/07/17 12:48 08/07/17 12:48 Lab Results 08/07/17 08/07/17 08/07/17 Range/Units 12:48 12:48 12:48 WBC 5.5 (3.8-10.6) k/uL RBC 3.95 (3.80-5.40) m/uL Hgb 12.1 (11.4-16.0) gm/dL Hct 36.9 (34.0-46.0) % MCV 93.3 (80.0-100.0) fL MCH 30.7 (25.0-35.0) pg MCHC 32.9 (31.0-37.0) g/dL RDW 13.9 (11.5-15.5) % Plt Count 215 (150-450) k/uL Neutrophils % 73 % Lymphocytes % 20 % Monocytes % 5 % Eosinophils % 0 % Basophils % 0 % Neutrophils # 4.0 (1.3-7.7) k/uL Lymphocytes # 1.1 (1.0-4.8) k/uL Monocytes # 0.3 (0-1.0) k/uL Eosinophils # 0.0 (0-0.7) k/uL Basophils # 0.0 (0-0.2) k/uL Sodium 136 L (137-145) mmol/L Potassium 3.9 (3.5-5.1) mmol/L Chloride 106 (98-107) mmol/L Carbon Dioxide 23 (22-30) mmol/L Anion Gap 7 mmol/L BUN 6 L (7-17) mg/dL Creatinine 0.60 (0.52-1.04) mg/dL Est GFR (MDRD) Af Amer >60 (>60 ml/min/1.73 sqM) Est GFR (MDRD) Non-Af >60 (>60 ml/min/1.73 sqM) Glucose 85 (74-99) mg/dL Calcium 9.5 (8.4-10.2) mg/dL Total Bilirubin 0.7 (0.2-1.3) mg/dL AST 14 (14-36) U/L ALT 29 (9-52) U/L Alkaline Phosphatase 83 (38-126) U/L Total Protein 6.5 (6.3-8.2) g/dL Albumin 3.5 (3.5-5.0) g/dL HCG, Quant 81257.9 mIU/mL Urine Color Light Yellow Urine Appearance Clear (Clear) Urine pH 7.0 (5.0-8.0) Ur Specific [place] 1.003 (1.001-1.035) Urine Protein Negative (Negative) Urine Glucose (UA) Negative (Negative) Urine Ketones Negative (Negative) Urine Blood Negative (Negative) Urine Nitrite Negative (Negative) Urine Bilirubin Negative (Negative) Urine Urobilinogen <2.0 (<2.0) mg/dL Ur Leukocyte Esterase Negative (Negative) Blood Type Blood Type Recheck 08/07/17 Range/Units 12:48 WBC (3.8-10.6) k/uL RBC (3.80-5.40) m/uL Hgb (11.4-16.0) gm/dL Hct (34.0-46.0) % MCV (80.0-100.0) fL MCH (25.0-35.0) pg MCHC (31.0-37.0) g/dL RDW (11.5-15.5) % Plt Count (150-450) k/uL Neutrophils % % Lymphocytes % % Monocytes % % Eosinophils % % Basophils % % Neutrophils # (1.3-7.7) k/uL Lymphocytes # (1.0-4.8) k/uL Monocytes # (0-1.0) k/uL Eosinophils # (0-0.7) k/uL Basophils # (0-0.2) k/uL Sodium (137-145) mmol/L Potassium (3.5-5.1) mmol/L Chloride (98-107) mmol/L Carbon Dioxide (22-30) mmol/L Anion Gap mmol/L BUN (7-17) mg/dL Creatinine (0.52-1.04) mg/dL Est GFR (MDRD) Af Amer (>60 ml/min/1.73 sqM) Est GFR (MDRD) Non-Af (>60 ml/min/1.73 sqM) Glucose (74-99) mg/dL Calcium (8.4-10.2) mg/dL Total Bilirubin (0.2-1.3) mg/dL AST (14-36) U/L ALT (9-52) U/L Alkaline Phosphatase (38-126) U/L Total Protein (6.3-8.2) g/dL Albumin (3.5-5.0) g/dL HCG, Quant mIU/mL Urine Color Urine Appearance (Clear) Urine pH (5.0-8.0) Ur Specific [place] (1.001-1.035) Urine Protein (Negative) Urine Glucose (UA) (Negative) Urine Ketones (Negative) Urine Blood (Negative) Urine Nitrite (Negative) Urine Bilirubin (Negative) Urine Urobilinogen (<2.0) mg/dL Ur Leukocyte Esterase (Negative) Blood Type A Positive Blood Type Recheck No - Radiology Data Radiology results: report reviewed, image reviewed Disposition Clinical Impression: Abdominal pain during Disposition: HOME SELF-CARE Condition: Stable Instructions: Abdominal Pain in (ED) Additional Instructions: Please use medication as discussed. Please follow up with family doctor if symptoms have not improved over the next two days. Please return to the emergency room if your symptoms increase or worsen or for any other concerns. Referrals: Marielle Antony MD [Primary Care Provider] - 1-2 days Time of Disposition: 14:42
[2017-08-07 13:05] LABS: Appearance,Urine Clear (Clear); Bilirubin,Urine Negative (Negative); Blood,Urine Negative (Negative); Color,Urine Light Yellow; Glucose,Urine (UA) Negative (Negative); Ketones,Urine Negative (Negative); Leukocyte Esterase,Urine Negative (Negative); Nitrite,Urine Negative (Negative); Protein,Urine Negative (Negative); Specific Gravity,Urine 1.003 (1.001-1.035); Urobilinogen,Urine <2.0 mg/dL (<2.0)
[2017-08-07 13:06] LABS: Basophils % (A) 0 %; Eosinophils % (A) 0 %; HCT 36.9 % (34.0-46.0); HGB 12.1 gm/dL (11.4-16.0); Lymphocytes # (A) 1.1 k/uL (1.0-4.8); Lymphocytes % (A) 20 %; MCH 30.7 pg (25.0-35.0); MCHC 32.9 g/dL (31.0-37.0); MCV 93.3 fL (80.0-100.0); Mean Platelet Volume 7.7; Monocytes # (A) 0.3 k/uL (0-1.0); Monocytes % (A) 5 %; Neutrophils % (A) 73 %; Platelet Count 215 k/uL (150-450); RBC 3.95 m/uL (3.80-5.40); RDW 13.9 % (11.5-15.5); WBC 5.5 k/uL (3.8-10.6)
[2017-08-07 13:23] LABS: ALT 29 U/L (9-52); AST 14 U/L (14-36); Albumin 3.5 g/dL (3.5-5.0); Alkaline Phosphatase 83 U/L (38-126); Anion Gap 7 mmol/L; Blood Urea Nitrogen 6 mg/dL (7-17); Calcium 9.5 mg/dL (8.4-10.2); Carbon Dioxide 23 mmol/L (22-30); Chloride 106 mmol/L (98-107); Glucose 85 mg/dL (74-99); Potassium 3.9 mmol/L (3.5-5.1); Sodium 136 mmol/L (137-145); Total Bilirubin 0.7 mg/dL (0.2-1.3); Total Protein 6.5 g/dL (6.3-8.2)
[2017-08-07 14:11] LABS: HCG,Quantitative Serum 62834.9 mIU/mL
--- NOTE | 2017-08-07 14:14 | US ---
EXAMINATION TYPE: US OB <= 14 wk fetus DATE OF EXAM: 08/07/2017 COMPARISON: 07/17/2017 CLINICAL HISTORY: Pain. Generalized pain, EXAM PERFORMED: Transabdominal (TA) EXAM MEASUREMENTS: GESTATIONAL AGE / DATING Dates by LMP: (13weeks/3 days) EDC: 02/09/2018 Dates by Current Scan for: (12weeks/3 days) EDC: 02/16/2018 MATERNAL ANATOMY Uterus: 13.3 x 7.9 x 6.2 cm Right Ovary: 2.8 x 1.5 x 1.8 cm Left Ovary: 2.6 x 1.7 x 1.3 cm Post CDS / Adnexa: no free fluid Presence of free fluid: no Presence of corpus luteal cyst: no Presence of subchorionic bleed: no GESTATION / SURVEY CRL: 5.9cm 12 weeks/3 days) MSD: Seen, not measured Yolk Sac (normal less than 6mm): Not visualized Heart Rate: 154 bpm Rhythm: Normal IUP: Viable IUP Date of LMP: 05/05/2017, Beta HcG (if available): Not available Single live IUP measuring 13 weeks 3 days. On image 37 there is a thin linear area of echogenicity measuring 1 mm. IMPRESSION: 1. Single live intrauterine with a sonographic age of 13 weeks and 3 days and an estimated date of delivery of 02/16/2018 concordant with menstrual age. 2. Single thin septation seen on image 37 which is favored to represent a uterine synechiae and much less likely an amnionic band, however surveillance is recommended.
[2017-08-07 14:58] VITALS: BP 119/70; PULSE 75; RESP 16
== END 2017-08-07 14:58 | disposition home or self-care (01) ==
LOC: EC 11:36
DX: O99.89 Other specified diseases and conditions complicating pregnancy, childbirth and the puerperium (principal); R10.9 Unspecified abdominal pain; O99.611 Diseases of the digestive system complicating pregnancy, first trimester; K21.9 Gastro-esophageal reflux disease without esophagitis; Z87.42 Personal history of other diseases of the female genital tract; Z90.49 Acquired absence of other specified parts of digestive tract; Z98.890 Other specified postprocedural states; Z91.048 Other nonmedicinal substance allergy status; Z88.1 Allergy status to other antibiotic agents; Z88.0 Allergy status to penicillin; Z88.2 Allergy status to sulfonamides; Z91.011 Allergy to milk products; Z3A.12 12 weeks gestation of pregnancy; Z79.899 Other long term (current) drug therapy
CPT/HCPCS: 36415; 76801; 80053; 81003; 84702; 85025; 86900; 86901; 87086; 99284

== ENCOUNTER → 2018-01-14 | Outpatient (CLI) | payer OTHER ==
--- NOTE | 2018-01-14 11:27 | US ---
EXAMINATION TYPE: US OB >= 14 wk fetus DATE OF EXAM: 01/14/2018 COMPARISON: CLINICAL HISTORY: O99.213 Obesity complicating pregnancyGrowth TECHNIQUE: Transabdominal (TA) GESTATIONAL AGE / DATING Physician Established: (35 weeks/4 days) EDC: 02/14/2018 Dates by Current Scan: (35 weeks/0 days) EDC: 02/18/2018 SURVEY IUP: Single PLACENTA: Posterior PREVIA: No Previa EWA: 18.5 cm Normal CERVICAL LENGTH (transabdominal: norm > 3.0cm): 3.0 cm BIOMETRY PRESENTATION: Vertex LIE: Longitudinal BPD: 8.4 cm 33 weeks / 6 days HC: 31.6 cm 35 weeks / 4 days AC: 31.5 cm 35 weeks / 4 days FL: 6.8 cm 35 weeks / 0 days ESTIMATED WEIGHT IN GRAMS: 2602 grams ESTIMATED WEIGHT IN LBS/OZ: 5 lbs. 12 oz. WEIGHT PERCENTAGE BASED ON ESTABLISHED DATES: 37% HC/AC: 1.0 Normal FL/AC: Normal HEART RATE: 143 bpm RHYTHM: Normal Single live IUP measuring 35 weeks 0 days IMPRESSION: Single viable intrauterine as noted.
== END | disposition home or self-care (01) ==
LOC: RADUSWWP 10:39
PROVIDERS: ATTEND Obstetrics & Gynecology
DX: O99.213 Obesity complicating pregnancy, third trimester (principal); Z3A.35 35 weeks gestation of pregnancy
CPT/HCPCS: 76805

== ENCOUNTER 2018-02-25 18:59 | Emergency (ER) | payer OTHER ==
[2018-02-25 19:59] LABS: Basophils % (A) 0 %; Eosinophils % (A) 1 %; HCT 30.5 % (34.0-46.0); HGB 10.4 gm/dL (11.4-16.0); Lymphocytes # (A) 1.4 k/uL (1.0-4.8); Lymphocytes % (A) 22 %; MCH 30.1 pg (25.0-35.0); MCHC 34.2 g/dL (31.0-37.0); MCV 87.9 fL (80.0-100.0); Mean Platelet Volume 7.1; Monocytes # (A) 0.4 k/uL (0-1.0); Monocytes % (A) 6 %; Neutrophils # (A) 4.2 k/uL (1.3-7.7); Neutrophils % (A) 70 %; Platelet Count 195 k/uL (150-450); RBC 3.46 m/uL (3.80-5.40); RDW 14.4 % (11.5-15.5)
[2018-02-25 20:10] LABS: ALT 29 U/L (9-52); AST 14 U/L (14-36); Albumin 3.7 g/dL (3.5-5.0); Alkaline Phosphatase 77 U/L (38-126); Amylase 49 U/L (30-110); Anion Gap 5 mmol/L; Blood Urea Nitrogen 9 mg/dL (7-17); Calcium 9.2 mg/dL (8.4-10.2); Carbon Dioxide 27 mmol/L (22-30); Chloride 106 mmol/L (98-107); Glucose 92 mg/dL (74-99); Lipase 25 U/L (23-300); Potassium 4.2 mmol/L (3.5-5.1); Sodium 138 mmol/L (137-145); Total Bilirubin 0.7 mg/dL (0.2-1.3); Total Protein 6.1 g/dL (6.3-8.2)
[2018-02-25 22:49] LABS: Appearance,Urine Bloody (Clear); Color,Urine Dark Red
[2018-02-25] MEDS ORDERED: SODIUM CHLORIDE 0.9% 1,000 ML IV STA ×2 (22:51)
[2018-02-25 23:03] LABS: RBC,Urine >182 /hpf (0-5); Squamous Epithelial Cell,Urine 1 /hpf (0-4); WBC,Urine 12 /hpf (0-5)
--- NOTE | 2018-02-25 23:07 | XR ---
EXAMINATION TYPE: XR KUB DATE OF EXAM: 02/25/2018 COMPARISON: 04/02/2017 HISTORY: Abdomen pain TECHNIQUE: 2 views FINDINGS: There is no sign of intestinal obstruction or pneumoperitoneum. There are clips from cholec ystectomy. Lung bases are clear. There are clips from tubal ligation. There are no pathologic calcifi cations over the kidneys. There is no evidence of a mass. IMPRESSION: Nonacute abdomen. No change.
--- NOTE | 2018-02-25 23:46 | CT ---
EXAMINATION TYPE: CT abdomen pelvis w con DATE OF EXAM: 02/25/2018 COMPARISON: 02/10/2017 and 04/02/2017 HISTORY: Lower abd pain CT DLP: 1387 mGycm Automated exposure control for dose reduction was used. TECHNIQUE: Helical acquisition of images was performed from the lung bases through the pelvis. CONTRAST: Performed without Oral Contrast and with IV Contrast, patient injected with 100 mL of Isovue 300. FINDINGS: Lung bases are clear. There is no pleural effusion. Heart appears borderline enlarged. There is no pe ricardial effusion. There are small hiatal hernia. Liver spleen pancreas appear normal. There are clips from cholecystectomy. Bile ducts are not dilated . There is no adrenal mass. Kidneys show satisfactory contrast opacification. There is no hydronephrosi s. Ureters are not dilated. There is fat stranding over the lower anterior abdomen consistent with re cent . There is no retroperitoneal adenopathy. There is a tiny amount of free fluid in the p alexis. I see no intestinal wall thickening. There are no dilated loops. Appendix appears normal. Uter us appears normal. Uterus is anteverted. There is no discrete fluid collection on the anterior abdomi nal wall. The lumbar spine is intact. There is mild subcutaneous edema over the lower lumbar spine. IMPRESSION: THERE IS A TINY AMOUNT OF FREE FLUID IN THE PELVIS. THERE IS FAT STRANDING OVER THE ANTERIOR LOWER AB DOMEN CONSISTENT WITH RECENT SURGERY. NO DRAINABLE FLUID COLLECTION. I DO NOT SEE EVIDENCE FOR AN ABSCESS.
[2018-02-26 00:36] VITALS: RESP 18
--- NOTE | 2018-02-26 01:04 | ED ---
Abdominal Pain HPI - General Chief Complaint: Abdominal Pain Stated Complaint: abd pain Time Seen by Provider: 02/25/18 22:45 Source: patient Mode of arrival: ambulatory Limitations: no limitations - History of Present Illness Initial Comments: When I saw the patient patient already had waited more than 3 hours, it was 3 hours 46 minutes trouble precise. 27 years O female presents with lower abdominal pain ongoing for a week she said her child jumped on her abdomen she had a about a month ago he still have some blood in the she denies any fever no chills no vaginal discharge pain is in the suprapubic area is more so on the incision. Review of system is unremarkable otherwise - Related Data Home Medications Medication Instructions Recorded Confirmed Ranitidine HCl 150 mg PO BID 12/26/15 02/25/18 HYDROcodone/APAP 5-325MG [[place] 1 tab PO Q4HR PRN 02/25/18 02/25/18 5-325] Sertraline [Zoloft] 50 mg PO HS@0000 02/25/18 02/25/18 Allergies Allergy/AdvReac Type Severity Reaction Status Date / Time adhesive tape Allergy Rash/Hives Verified 02/25/18 22:54 aloe vera Allergy Rash/Hives Verified 02/25/18 22:54 azithromycin Allergy Rash/Hives Verified 02/25/18 22:54 metronidazole [From Flagyl] Allergy Rash/Hives Verified 02/25/18 22:54 Penicillins Allergy Rash/Hives Verified 02/25/18 22:54 sulfamethoxazole Allergy Rash/Hives Verified 02/25/18 22:54 [From Bactrim] trimethoprim [From Bactrim] Allergy Rash/Hives Verified 02/25/18 22:54 milk AdvReac Abdominal Verified 02/25/18 22:54 Pain Review of Systems ROS Statement: Those systems with pertinent positive or pertinent negative responses have been documented in the HPI. ROS Other: All systems not noted in ROS Statement are negative. Past Medical History Past Medical History: GERD/Reflux Additional Past Medical History / Comment(s): endometriosis, polycystic ovarian syndrome History of Any Multi-Drug Resistant Organisms: None Reported Past Surgical History: Section, Cholecystectomy Additional Past Surgical History / Comment(s): laparoscopy x2 Past Anesthesia/Blood Transfusion Reactions: No Reported Reaction Past Psychological History: Anxiety, Depression Smoking Status: Never smoker Past Alcohol Use History: None Reported Past Drug Use History: None Reported - Past Family History Mother Family Medical History: Hyperlipidemia Additional Family Medical History / Comment(s): depression anxiety General Exam - General Exam Comments Initial Comments: General: The patient is awake and alert, in no distress, and does not appear acutely ill. Skin: Skin is warm and dry and no rashes or lesions are noted. Eye: Pupils are equal, round and reactive to light, extra-ocular movements are intact; there is normal conjunctiva bilaterally. Ears, nose, mouth and throat: There are moist mucous membranes and no oral lesions. Neck: The neck is supple, there is no tenderness or JVD. Cardiovascular: There is a regular rate and rhythm. No murmur, rub or gallop is appreciated. Respiratory: To auscultation bilateral, no wheezing no rhonchi no distress respiratory cano noticed Gastrointestinal: Slightly tender over suprapubic area positive bowel sounds no guarding no rebound. Back: There is no tenderness to palpation in the midline. There is no obvious deformity. Musculoskeletal: Normal ROM, no tenderness, There is no pedal edema. There is no calf tenderness or swelling. No cords were appreciated. Neurological: CN II-XII intact, Cranial nerves III through XII are intact. There are no obvious motor or sensory deficits. Coordination appears grossly intact. Speech is normal. Psychiatric: Cooperative, appropriate mood & affect, normal judgment. Limitations: no limitations Course Vital Signs 02/25/18 02/26/18 19:10 00:00 Temperature 99.5 F Pulse Rate 76 70 Respiratory 16 18 Rate Blood Pressure 119/78 126/67 O2 Sat by Pulse [address] abdomen ruled out any abscess formation or free fluid in the pelvis, she is afebrile CBC, compressive metabolic panel is unremarkable noticed some hematuria and patient has no history of kidney stones Medical Decision Making - Lab Data Result diagrams: 02/25/18 19:45 02/25/18 19:45 Lab Results 02/25/18 02/25/18 02/25/18 Range/Units 19:45 19:45 19:45 WBC 6.0 (3.8-10.6) k/uL RBC 3.46 L (3.80-5.40) m/uL Hgb 10.4 L (11.4-16.0) gm/dL Hct 30.5 L (34.0-46.0) % MCV 87.9 (80.0-100.0) fL MCH 30.1 (25.0-35.0) pg MCHC 34.2 (31.0-37.0) g/dL RDW 14.4 (11.5-15.5) % Plt Count 195 (150-450) k/uL Neutrophils % 70 % Lymphocytes % 22 % Monocytes % 6 % Eosinophils % 1 % Basophils % 0 % Neutrophils # 4.2 (1.3-7.7) k/uL Lymphocytes # 1.4 (1.0-4.8) k/uL Monocytes # 0.4 (0-1.0) k/uL Eosinophils # 0.0 (0-0.7) k/uL Basophils # 0.0 (0-0.2) k/uL Sodium 138 (137-145) mmol/L Potassium 4.2 (3.5-5.1) mmol/L Chloride 106 (98-107) mmol/L Carbon Dioxide 27 (22-30) mmol/L Anion Gap 5 mmol/L BUN 9 (7-17) mg/dL Creatinine 0.70 (0.52-1.04) mg/dL Est GFR (CKD-EPI)AfAm >90 (>60 ml/min/1.73 sqM) Est GFR (CKD-EPI)NonAf >90 (>60 ml/min/1.73 sqM) Glucose 92 (74-99) mg/dL Plasma Lactic Acid [place] <0.5 L (0.7-2.0) mmol/L Calcium 9.2 (8.4-10.2) mg/dL Total Bilirubin 0.7 (0.2-1.3) mg/dL AST 14 (14-36) U/L ALT 29 (9-52) U/L Alkaline Phosphatase 77 (38-126) U/L Total Protein 6.1 L (6.3-8.2) g/dL Albumin 3.7 (3.5-5.0) g/dL Amylase 49 (30-110) U/L Lipase 25 (23-300) U/L Urine Color Urine Appearance (Clear) Urine RBC (0-5) /hpf Urine WBC (0-5) /hpf Ur Squamous Epith Cells (0-4) /hpf Urine HCG, Qual (Not Detectd) 02/25/18 02/25/18 Range/Units 22:23 22:23 WBC (3.8-10.6) k/uL RBC (3.80-5.40) m/uL Hgb (11.4-16.0) gm/dL Hct (34.0-46.0) % MCV (80.0-100.0) fL MCH (25.0-35.0) pg MCHC (31.0-37.0) g/dL RDW (11.5-15.5) % Plt Count (150-450) k/uL Neutrophils % % Lymphocytes % % Monocytes % % Eosinophils % % Basophils % % Neutrophils # (1.3-7.7) k/uL Lymphocytes # (1.0-4.8) k/uL Monocytes # (0-1.0) k/uL Eosinophils # (0-0.7) k/uL Basophils # (0-0.2) k/uL Sodium (137-145) mmol/L Potassium (3.5-5.1) mmol/L Chloride (98-107) mmol/L Carbon Dioxide (22-30) mmol/L Anion Gap mmol/L BUN (7-17) mg/dL Creatinine (0.52-1.04) mg/dL Est GFR (CKD-EPI)AfAm (>60 ml/min/1.73 sqM) Est GFR (CKD-EPI)NonAf (>60 ml/min/1.73 sqM) Glucose (74-99) mg/dL Plasma Lactic Acid [place] (0.7-2.0) mmol/L Calcium (8.4-10.2) mg/dL Total Bilirubin (0.2-1.3) mg/dL AST (14-36) U/L ALT (9-52) U/L Alkaline Phosphatase (38-126) U/L Total Protein (6.3-8.2) g/dL Albumin (3.5-5.0) g/dL Amylase (30-110) U/L Lipase (23-300) U/L Urine Color Dark Red Urine Appearance Bloody H (Clear) Urine RBC >182 H (0-5) /hpf Urine WBC 12 H (0-5) /hpf Ur Squamous Epith Cells 1 (0-4) /hpf Urine HCG, Qual Not Detected (Not Detectd) Disposition Clinical Impression: Abdominal pain, Hematuria Disposition: HOME SELF-CARE Condition: Good Instructions: Abdominal Pain (ED) Additional Instructions: She is advised follow-up with her OB doctor or return to the ER if symptoms get worse Is patient prescribed a controlled substance at d/c from ED?: No Referrals: Marielle Antony MD [Primary Care Provider] - 1-2 days
[2018-02-26 01:23] VITALS: BP 112/73; PULSE 93; TEMP 98.6
== END 2018-02-26 01:23 | disposition home or self-care (01) ==
LOC: EC 18:59
DX: R10.30 Lower abdominal pain, unspecified (principal); R31.9 Hematuria, unspecified; K21.9 Gastro-esophageal reflux disease without esophagitis; F32.9 Major depressive disorder, single episode, unspecified; F41.9 Anxiety disorder, unspecified; Z79.899 Other long term (current) drug therapy; Z88.1 Allergy status to other antibiotic agents; Z88.2 Allergy status to sulfonamides; Z88.0 Allergy status to penicillin; Z91.048 Other nonmedicinal substance allergy status; Z91.011 Allergy to milk products; Z90.49 Acquired absence of other specified parts of digestive tract
CPT/HCPCS: 36415; 80053; 82150; 83605; 83690; 85025; 81001; 81025; 87086; 74018; 74177; 99284; 96360; 96361; Q9967

== ENCOUNTER 2018-09-11 14:42 | Emergency (ER) | payer OTHER ==
--- NOTE | 2018-09-11 15:34 | ED ---
General Adult HPI - General Chief complaint: Abdominal Pain Stated complaint: Lower left abd pain Time Seen by Provider: 09/11/18 15:17 Source: patient, RN notes reviewed Mode of arrival: ambulatory Limitations: no limitations - History of Present Illness Initial comments: 28-year-old female presents to the emergency department for a chief complaint of left lower quadrant pain 4 days. Patient does have a history of PCOS as well as endometriosis. Patient had a section 7 months ago. She does have a history of a tubal ligation. Patient denies any dysuria. She denies diarrhea hematochezia or melena. No nausea or vomiting. Patient states when she gets ovarian cysts they usually occur about a year after her . Patient states the first 2 days Motrin was helping but now Motrin is not helping as much. She states she did try to call her primary care physician that they could not get her in until tomorrow. Patient denies concern for sexually transmitted diseases. She denies fevers or chills. Patient has no other complaints at this time including shortness of breath, chest pain, abdominal pain, nausea or vomiting, headache, or visual changes. - Related Data Home Medications Medication Instructions Recorded Confirmed Ranitidine HCl 150 mg PO BID 12/26/15 09/11/18 Sertraline [Zoloft] 50 mg PO HS 02/25/18 09/11/18 Ibuprofen [Motrin Ib] 600 mg PO Q6HR 09/11/18 09/11/18 Keto (Diet Pill Otc) 1 tab PO DAILY 09/11/18 09/11/18 Allergies Allergy/AdvReac Type Severity Reaction Status Date / Time adhesive tape Allergy Rash/Hives Verified 09/11/18 16:47 aloe vera Allergy Rash/Hives Verified 09/11/18 16:47 azithromycin Allergy Rash/Hives Verified 09/11/18 16:47 metronidazole [From Flagyl] Allergy Rash/Hives Verified 09/11/18 16:47 Penicillins Allergy Rash/Hives Verified 09/11/18 16:47 sulfamethoxazole Allergy Rash/Hives Verified 09/11/18 16:47 [From Bactrim] trimethoprim [From Bactrim] Allergy Rash/Hives Verified 09/11/18 16:47 milk AdvReac Abdominal Verified 09/11/18 16:47 Pain Review of Systems ROS Statement: Those systems with pertinent positive or pertinent negative responses have been documented in the HPI. ROS Other: All systems not noted in ROS Statement are negative. Past Medical History Past Medical History: GERD/Reflux Additional Past Medical History / Comment(s): endometriosis, polycystic ovarian syndrome History of Any Multi-Drug Resistant Organisms: None Reported Past Surgical History: Section, Cholecystectomy, Tubal Ligation Additional Past Surgical History / Comment(s): laparoscopy x2, c section x 3 Past Anesthesia/Blood Transfusion Reactions: No Reported Reaction Past Psychological History: Anxiety, Depression Smoking Status: Never smoker Past Alcohol Use History: None Reported Past Drug Use History: None Reported - Past Family History Mother Family Medical History: Hyperlipidemia Additional Family Medical History / Comment(s): depression anxiety General Exam Limitations: no limitations General appearance: alert, in no apparent distress Head exam: Present: atraumatic, normocephalic, normal inspection Eye exam: Present: normal appearance, PERRL, EOMI. Absent: scleral icterus, conjunctival injection, periorbital swelling ENT exam: Present: normal exam, mucous membranes moist Neck exam: Present: normal inspection, full ROM. Absent: tenderness, meningismus, lymphadenopathy Respiratory exam: Present: normal lung sounds bilaterally. Absent: respiratory distress, wheezes, rales, rhonchi, stridor Cardiovascular Exam: Present: regular rate, normal rhythm, normal heart sounds. Absent: systolic murmur, diastolic murmur, rubs, gallop, clicks GI/Abdominal exam: Present: soft, tenderness (tenderness noted in LLQ and suprapubic area, no guarding or rebound), normal bowel sounds. Absent: distended, guarding, rebound, rigid External exam: Present: normal external exam. Absent: erythema, swelling, lesions, lacerations, ecchymosis, other Speculum exam: Present: normal speculum exam. Absent: erythema, vaginal discharge, cervical discharge, vaginal bleeding, foreign body, tissue, laceration, other (pt refused to have G&C and trich swabbed) By manual exam: Present: normal by manual exam, adnexal tenderness (L adnexal tenderness, no right adnexal tenderness), uterine tenderness. Absent: cervical motion tenderness, adnexal mass, uterine enlargement Course Vital Signs 09/11/18 09/11/18 09/11/18 14:52 16:58 18:21 Temperature 98.6 F 98.4 F 98.1 F Pulse Rate 81 77 86 Respiratory 18 16 18 Rate Blood Pressure 119/78 119/66 131/89 O2 Sat by Pulse 100 100 100 Oximetry Medical Decision Making - Medical Decision Making CBC CMP unremarkable. Urine does not show any evidence of infection. HCG negative. Ultrasound does show a simple ovarian cyst on the left side, likely causing patient's pain. Patient states she is not surprised by this. She states she has been through this before. Pain has improved but she was given morphine before discharge because she still did have some pain. Patient has sister in the room who will drive. Patient will follow up with [facility]. She'll return here if she has any worsening symptoms. - Lab Data Result diagrams: 09/11/18 16:03 09/11/18 16:03 Lab Results 09/11/18 09/11/18 09/11/18 Range/Units 16:03 16:03 16:03 WBC 5.4 (3.8-10.6) k/uL RBC 4.05 (3.80-5.40) m/uL Hgb 11.4 (11.4-16.0) gm/dL Hct 35.6 (34.0-46.0) % MCV 88.0 (80.0-100.0) fL MCH 28.2 (25.0-35.0) pg MCHC 32.1 (31.0-37.0) g/dL RDW 14.1 (11.5-15.5) % Plt Count 211 (150-450) k/uL Neutrophils % 63 % Lymphocytes % 28 % Monocytes % 6 % Eosinophils % 0 % Basophils % 0 % Neutrophils # 3.4 (1.3-7.7) k/uL Lymphocytes # 1.5 (1.0-4.8) k/uL Monocytes # 0.3 (0-1.0) k/uL Eosinophils # 0.0 (0-0.7) k/uL Basophils # 0.0 (0-0.2) k/uL Sodium 138 (137-145) mmol/L Potassium 4.3 (3.5-5.1) mmol/L Chloride 104 (98-107) mmol/L Carbon Dioxide 28 (22-30) mmol/L Anion Gap 6 mmol/L BUN 12 (7-17) mg/dL Creatinine 0.69 (0.52-1.04) mg/dL Est GFR (CKD-EPI)AfAm >90 (>60 ml/min/1.73 sqM) Est GFR (CKD-EPI)NonAf >90 (>60 ml/min/1.73 sqM) Glucose 95 (74-99) mg/dL Calcium 9.8 (8.4-10.2) mg/dL Total Bilirubin 0.7 (0.2-1.3) mg/dL AST 20 (14-36) U/L ALT 34 (9-52) U/L Alkaline Phosphatase 79 (38-126) U/L Total Protein 6.6 (6.3-8.2) g/dL Albumin 3.9 (3.5-5.0) g/dL Amylase 52 (30-110) U/L Lipase 62 (23-300) U/L Urine Color Urine Appearance (Clear) Urine pH (5.0-8.0) Ur Specific [place] (1.001-1.035) Urine Protein (Negative) Urine Glucose (UA) (Negative) Urine Ketones (Negative) Urine Blood (Negative) Urine Nitrite (Negative) Urine Bilirubin (Negative) Urine Urobilinogen (<2.0) mg/dL Ur Leukocyte Esterase (Negative) Urine HCG, Qual Not Detected (Not Detectd) 09/11/18 Range/Units 16:03 WBC (3.8-10.6) k/uL RBC (3.80-5.40) m/uL Hgb (11.4-16.0) gm/dL Hct (34.0-46.0) % MCV (80.0-100.0) fL MCH (25.0-35.0) pg MCHC (31.0-37.0) g/dL RDW (11.5-15.5) % Plt Count (150-450) k/uL Neutrophils % % Lymphocytes % % Monocytes % % Eosinophils % % Basophils % % Neutrophils # (1.3-7.7) k/uL Lymphocytes # (1.0-4.8) k/uL Monocytes # (0-1.0) k/uL Eosinophils # (0-0.7) k/uL Basophils # (0-0.2) k/uL Sodium (137-145) mmol/L Potassium (3.5-5.1) mmol/L Chloride (98-107) mmol/L Carbon Dioxide (22-30) mmol/L Anion Gap mmol/L BUN (7-17) mg/dL Creatinine (0.52-1.04) mg/dL Est GFR (CKD-EPI)AfAm (>60 ml/min/1.73 sqM) Est GFR (CKD-EPI)NonAf (>60 ml/min/1.73 sqM) Glucose (74-99) mg/dL Calcium (8.4-10.2) mg/dL Total Bilirubin (0.2-1.3) mg/dL AST (14-36) U/L ALT (9-52) U/L Alkaline Phosphatase (38-126) U/L Total Protein (6.3-8.2) g/dL Albumin (3.5-5.0) g/dL Amylase (30-110) U/L Lipase (23-300) U/L Urine Color Yellow Urine Appearance Clear (Clear) Urine pH 6.0 (5.0-8.0) Ur Specific [place] 1.022 (1.001-1.035) Urine Protein Trace H (Negative) Urine Glucose (UA) Negative (Negative) Urine Ketones Negative (Negative) Urine Blood Negative (Negative) Urine Nitrite Negative (Negative) Urine Bilirubin Negative (Negative) Urine Urobilinogen <2.0 (<2.0) mg/dL Ur Leukocyte Esterase Negative (Negative) Urine HCG, Qual (Not Detectd) Disposition Clinical Impression: Ovarian cyst Disposition: HOME SELF-CARE Condition: Good Instructions (If sedation given, give patient instructions): Ovarian Cyst (ED) Additional Instructions: Please take Motrin and Tylenol for pain. Please follow-up with [facility] in one to 2 days. Please return here to the emergency department if you have any worsening symptoms. Is patient prescribed a controlled substance at d/c from ED?: No Referrals: Marielle Antony MD [Primary Care Provider] - 1-2 days Time of Disposition: 17:42
[2018-09-11] MEDS ORDERED: SODIUM CHLORIDE 0.9% 1,000 ML IV STA (15:48)
[2018-09-11] MEDS ORDERED: KETOROLAC 30 MG/ML 1 ML VIAL IVP STA (15:48)
[2018-09-11 16:16] LABS: Appearance,Urine Clear (Clear); Basophils % (A) 0 %; Bilirubin,Urine Negative (Negative); Blood,Urine Negative (Negative); Color,Urine Yellow; Eosinophils % (A) 0 %; Glucose,Urine (UA) Negative (Negative); HCT 35.6 % (34.0-46.0); HGB 11.4 gm/dL (11.4-16.0); Ketones,Urine Negative (Negative); Leukocyte Esterase,Urine Negative (Negative); Lymphocytes # (A) 1.5 k/uL (1.0-4.8); Lymphocytes % (A) 28 %; MCH 28.2 pg (25.0-35.0); MCHC 32.1 g/dL (31.0-37.0); Mean Platelet Volume 7.9; Monocytes # (A) 0.3 k/uL (0-1.0); Monocytes % (A) 6 %; Neutrophils # (A) 3.4 k/uL (1.3-7.7); Neutrophils % (A) 63 %; Nitrite,Urine Negative (Negative); Platelet Count 211 k/uL (150-450); Protein,Urine Trace (Negative); RBC 4.05 m/uL (3.80-5.40); RDW 14.1 % (11.5-15.5); Specific Gravity,Urine 1.022 (1.001-1.035); Urobilinogen,Urine <2.0 mg/dL (<2.0); WBC 5.4 k/uL (3.8-10.6)
[2018-09-11 16:27] LABS: ALT 34 U/L (9-52); AST 20 U/L (14-36); Albumin 3.9 g/dL (3.5-5.0); Alkaline Phosphatase 79 U/L (38-126); Amylase 52 U/L (30-110); Anion Gap 6 mmol/L; Blood Urea Nitrogen 12 mg/dL (7-17); Calcium 9.8 mg/dL (8.4-10.2); Carbon Dioxide 28 mmol/L (22-30); Chloride 104 mmol/L (98-107); Glucose 95 mg/dL (74-99); Lipase 62 U/L (23-300); Potassium 4.3 mmol/L (3.5-5.1); Sodium 138 mmol/L (137-145); Total Bilirubin 0.7 mg/dL (0.2-1.3); Total Protein 6.6 g/dL (6.3-8.2)
--- NOTE | 2018-09-11 17:08 | US ---
EXAMINATION TYPE: US transvaginal DATE OF EXAM: 09/11/2018 COMPARISON: NONE CLINICAL HISTORY: Pain. LLQ pain TECHNIQUE: Transvaginal (TV). Date of LMP: 09/02/2017 EXAM MEASUREMENTS: Uterus: 9.4 x 4.4 x 5.5 cm Endometrial Stripe: 0.8 cm Right Ovary: 2.7 x 2.1 x 1.8 cm Left Ovary: 3.7 x 2.9 x 2.9 cm 1. Uterus: Anteverted wnl 2. Endometrium: wnl 3. Right Ovary: wnl 4. Left Ovary: 2.2 x 2.3 x 1.9 cm cyst Spectral, color and waveform doppler imaging shows good arterial and venous flow within the ovaries ; there is no evidence for ovarian torsion. 5. Bilateral Adnexa: wnl 6. Posterior cul-de-sac: small amount of free fluid IMPRESSION: Simple left ovarian cyst. No solid adnexal mass. No evidence of ovarian torsion. Normal u terus and endometrium. Minimal free fluid.
[2018-09-11] MEDS ORDERED: MORPHINE SULFATE 4 MG/ML SYRINGE IVP STA (17:57)
[2018-09-11 18:22] VITALS: BP 131/89; PULSE 86; RESP 18; TEMP 98.1
== END 2018-09-11 18:21 | disposition home or self-care (01) ==
LOC: EC 14:42
DX: N83.202 Unspecified ovarian cyst, left side (principal); K21.9 Gastro-esophageal reflux disease without esophagitis; F41.9 Anxiety disorder, unspecified; F32.9 Major depressive disorder, single episode, unspecified; Z90.49 Acquired absence of other specified parts of digestive tract; Z98.51 Tubal ligation status; Z87.42 Personal history of other diseases of the female genital tract; Z79.1 Long term (current) use of non-steroidal anti-inflammatories (NSAID); Z79.899 Other long term (current) drug therapy; Z91.048 Other nonmedicinal substance allergy status; Z88.1 Allergy status to other antibiotic agents; Z88.0 Allergy status to penicillin; Z88.2 Allergy status to sulfonamides; Z91.011 Allergy to milk products
CPT/HCPCS: 36415; 80053; 82150; 83690; 85025; 81003; 81025; 76830; 99284; 96374; 96375; 96361; J2270; J1885; 93975

== ENCOUNTER → 2018-10-16 | Outpatient (CLI) | payer OTHER ==
--- NOTE | 2018-10-16 15:07 | XR ---
EXAMINATION TYPE: XR KUB DATE OF EXAM: 10/16/2018 COMPARISON: NONE HISTORY: Pain TECHNIQUE: Single supine KUB image of the abdomen is obtained FINDINGS: Small bowel demonstrates no evidence for dilatation or air fluid levels. Gas and fecal material is seen in non-distended colon. No convincing evidence for pneumoperitoneum. No unusual calcifications. The lung bases are clear. The osseous structures are intact. IMPRESSION: 1. Overall nonobstructive bowel gas pattern.
== END ==
LOC: RADXRMAIN 14:32
PROVIDERS: ATTEND Family Medicine
DX: R14.0 Abdominal distension (gaseous) (principal); R10.30 Lower abdominal pain, unspecified
CPT/HCPCS: 74018

== ENCOUNTER 2018-12-12 13:36 | Emergency (ER) | payer OTHER ==
[2018-12-12 13:39] VITALS: RESP 18; TEMP 98.6
[2018-12-12] MEDS ORDERED: ONDANSETRON 4 MG/2 ML VIAL IVP STA (14:21)
[2018-12-12] MEDS ORDERED: SODIUM CHLORIDE 0.9% 1,000 ML IV STA (14:21)
[2018-12-12] MEDS ORDERED: PANTOPRAZOLE 40 MG/10 ML VIAL IVP STA (14:21)
[2018-12-12] MEDS ORDERED: KETOROLAC 30 MG/ML 1 ML VIAL IVP STA (14:21)
[2018-12-12 14:32] LABS: Basophils % (A) 0 %; Eosinophils % (A) 0 %; HCT 36.4 % (34.0-46.0); HGB 11.9 gm/dL (11.4-16.0); Lymphocytes # (A) 1.3 k/uL (1.0-4.8); Lymphocytes % (A) 27 %; MCH 27.9 pg (25.0-35.0); MCHC 32.8 g/dL (31.0-37.0); Monocytes # (A) 0.3 k/uL (0-1.0); Monocytes % (A) 5 %; Neutrophils # (A) 3.1 k/uL (1.3-7.7); Neutrophils % (A) 66 %; Platelet Count 228 k/uL (150-450); RBC 4.28 m/uL (3.80-5.40); WBC 4.7 k/uL (3.8-10.6)
[2018-12-12 14:38] LABS: Appearance,Urine Clear (Clear); Bacteria,Urine Rare /hpf; Bilirubin,Urine Negative (Negative); Blood,Urine Negative (Negative); Color,Urine Light Yellow; Glucose,Urine (UA) Negative (Negative); Ketones,Urine Negative (Negative); Leukocyte Esterase,Urine Trace (Negative); Nitrite,Urine Negative (Negative); Protein,Urine Negative (Negative); RBC,Urine <1 /hpf (0-5); Specific Gravity,Urine 1.012 (1.001-1.035); Squamous Epithelial Cell,Urine 3 /hpf (0-4); Urobilinogen,Urine <2.0 mg/dL (<2.0); WBC,Urine 1 /hpf (0-5)
[2018-12-12 14:40] LABS: ALT 13 U/L (9-52); AST 22 U/L (14-36); Albumin 4.4 g/dL (3.5-5.0); Alkaline Phosphatase 70 U/L (38-126); Amylase 58 U/L (30-110); Anion Gap 9 mmol/L; Blood Urea Nitrogen 11 mg/dL (7-17); Calcium 9.7 mg/dL (8.4-10.2); Carbon Dioxide 23 mmol/L (22-30); Chloride 107 mmol/L (98-107); Glucose 91 mg/dL (74-99); INR 0.9 (<1.2); Lipase 42 U/L (23-300); Partial Thromboplastin Time 26.2 sec (22.0-30.0); Potassium 4.2 mmol/L (3.5-5.1); Sodium 139 mmol/L (137-145); Total Bilirubin 0.9 mg/dL (0.2-1.3); Total Protein 7.3 g/dL (6.3-8.2)
--- NOTE | 2018-12-12 14:54 | ED ---
SOB HPI - General Chief Complaint: Shortness of Breath Stated Complaint: SOB Time Seen by Provider: 12/12/18 14:07 Source: patient, RN notes reviewed, old records reviewed Mode of arrival: ambulatory Limitations: no limitations - History of Present Illness Initial Comments: Patient is a 28 year old female presents emergency Department today with complai nts of upper abdominal pain, pain worsening with taking a deep breath in her abdomen. Patient states that surgical history includes multiple last Ross Capizzi for endometriosis, cholecystectomy, and C-sections. Patient states that she was cooking a meal today when he developed this onset of pain in her upper quadrants and complains of shortness of breath. She denies any coughing fevers or chills. She denies any associated chest pain. - Related Data Home Medications Medication Instructions Recorded Confirmed Ranitidine HCl 150 mg PO BID 12/26/15 09/11/18 Sertraline [Zoloft] 50 mg PO HS 02/25/18 09/11/18 Ibuprofen [Motrin Ib] 600 mg PO Q6HR 09/11/18 09/11/18 Keto (Diet Pill Otc) 1 tab PO DAILY 09/11/18 09/11/18 Previous Rx's Medication Instructions Recorded Dicyclomine [Bentyl] 20 mg PO QID PRN #20 tablet 10/12/18 HYDROcodone/APAP 5-325MG [[place] 5] 1 each PO Q6HR PRN #12 tab 10/12/18 Moxifloxacin HCl 400 mg PO DAILY #10 tab 10/12/18 Ondansetron Odt [Zofran Odt] 4 mg PO Q8HR PRN #20 tab 10/12/18 Famotidine [Pepcid AC] 10 mg PO BID #20 tablet 12/12/18 Ondansetron Odt [Zofran Odt] 4 mg PO Q8HR PRN #20 tab 12/12/18 Allergies Allergy/AdvReac Type Severity Reaction Status Date / Time adhesive tape Allergy Rash/Hives Verified 12/12/18 13:39 aloe vera Allergy Rash/Hives Verified 12/12/18 13:39 azithromycin Allergy Rash/Hives Verified 12/12/18 13:39 metronidazole [From Flagyl] Allergy Rash/Hives Verified 12/12/18 13:39 Penicillins Allergy Rash/Hives Verified 12/12/18 13:39 sulfamethoxazole Allergy Rash/Hives Verified 12/12/18 13:39 [From Bactrim] trimethoprim [From Bactrim] Allergy Rash/Hives Verified 12/12/18 13:39 milk AdvReac Abdominal Verified 12/12/18 13:39 Pain Review of Systems ROS Statement: Those systems with pertinent positive or pertinent negative responses have been documented in the HPI. ROS Other: All systems not noted in ROS Statement are negative. Past Medical History Past Medical History: GERD/Reflux Additional Past Medical History / Comment(s): endometriosis, polycystic ovarian syndrome History of Any Multi-Drug Resistant Organisms: None Reported Past Surgical History: Section, Cholecystectomy, Tubal Ligation Additional Past Surgical History / Comment(s): laparoscopy x2, c section x 3 Past Anesthesia/Blood Transfusion Reactions: No Reported Reaction Past Psychological History: Anxiety, Depression Smoking Status: Never smoker Past Alcohol Use History: Rare Past Drug Use History: None Reported - Past Family History Mother Family Medical History: Hyperlipidemia Additional Family Medical History / Comment(s): depression anxiety General Exam - General Exam Comments Initial Comments: 20-year-old female. Alert and oriented. No significant distress. Limitations: no limitations General appearance: alert, in no apparent distress Head exam: Present: atraumatic, normocephalic, normal inspection Eye exam: Present: normal appearance, PERRL, EOMI. Absent: scleral icterus, conjunctival injection, periorbital swelling ENT exam: Present: normal exam, mucous membranes moist Neck exam: Present: normal inspection Respiratory exam: Present: normal lung sounds bilaterally. Absent: respiratory distress, wheezes, rales, rhonchi, stridor Cardiovascular Exam: Present: regular rate, normal rhythm, normal heart sounds. Absent: systolic murmur, diastolic murmur, rubs, gallop, clicks GI/Abdominal exam: Present: soft, normal bowel sounds. Absent: distended, tenderness, guarding, rebound, rigid Extremities exam: Present: normal inspection, full ROM, normal capillary refill. Absent: tenderness, pedal edema, joint swelling, calf tenderness Back exam: Present: normal inspection Neurological exam: Present: alert, oriented X3, CN II-XII intact Psychiatric exam: Present: normal affect, normal mood Skin exam: Present: warm, dry, intact, normal color. Absent: rash Course Vital Signs 12/12/18 13:37 Temperature 98.6 F Pulse Rate 70 Respiratory 18 Rate Blood Pressure 127/85 O2 Sat by Pulse 99 Oximetry Medical Decision Making - Lab Data Result diagrams: 12/12/18 14:05 12/12/18 14:05 Lab Results 12/12/18 12/12/18 12/12/18 Range/Units 14:05 14:05 14:05 WBC 4.7 (3.8-10.6) k/uL RBC 4.28 (3.80-5.40) m/uL Hgb 11.9 (11.4-16.0) gm/dL Hct 36.4 (34.0-46.0) % MCV 85.0 (80.0-100.0) fL MCH 27.9 (25.0-35.0) pg MCHC 32.8 (31.0-37.0) g/dL RDW 14.0 (11.5-15.5) % Plt Count 228 (150-450) k/uL Neutrophils % 66 % Lymphocytes % 27 % Monocytes % 5 % Eosinophils % 0 % Basophils % 0 % Neutrophils # 3.1 (1.3-7.7) k/uL Lymphocytes # 1.3 (1.0-4.8) k/uL Monocytes # 0.3 (0-1.0) k/uL Eosinophils # 0.0 (0-0.7) k/uL Basophils # 0.0 (0-0.2) k/uL PT 10.0 (9.0-12.0) sec INR 0.9 (<1.2) APTT 26.2 (22.0-30.0) sec Sodium 139 (137-145) mmol/L Potassium 4.2 (3.5-5.1) mmol/L Chloride 107 (98-107) mmol/L Carbon Dioxide 23 (22-30) mmol/L Anion Gap 9 mmol/L BUN 11 (7-17) mg/dL Creatinine 0.64 (0.52-1.04) mg/dL Est GFR (CKD-EPI)AfAm >90 (>60 ml/min/1.73 sqM) Est GFR (CKD-EPI)NonAf >90 (>60 ml/min/1.73 sqM) Glucose 91 (74-99) mg/dL Calcium 9.7 (8.4-10.2) mg/dL Total Bilirubin 0.9 (0.2-1.3) mg/dL AST 22 (14-36) U/L ALT 13 (9-52) U/L Alkaline Phosphatase 70 (38-126) U/L Total Protein 7.3 (6.3-8.2) g/dL Albumin 4.4 (3.5-5.0) g/dL Amylase 58 (30-110) U/L Lipase 42 (23-300) U/L Urine Color Urine Appearance (Clear) Urine pH (5.0-8.0) Ur Specific [place] (1.001-1.035) Urine Protein (Negative) Urine Glucose (UA) (Negative) Urine Ketones (Negative) Urine Blood (Negative) Urine Nitrite (Negative) Urine Bilirubin (Negative) Urine Urobilinogen (<2.0) mg/dL Ur Leukocyte Esterase (Negative) Urine RBC (0-5) /hpf Urine WBC (0-5) /hpf Ur Squamous Epith Cells (0-4) /hpf Urine Bacteria (None) /hpf 12/12/18 Range/Units 14:05 WBC (3.8-10.6) k/uL RBC (3.80-5.40) m/uL Hgb (11.4-16.0) gm/dL Hct (34.0-46.0) % MCV (80.0-100.0) fL MCH (25.0-35.0) pg MCHC (31.0-37.0) g/dL RDW (11.5-15.5) % Plt Count (150-450) k/uL Neutrophils % % Lymphocytes % % Monocytes % % Eosinophils % % Basophils % % Neutrophils # (1.3-7.7) k/uL Lymphocytes # (1.0-4.8) k/uL Monocytes # (0-1.0) k/uL Eosinophils # (0-0.7) k/uL Basophils # (0-0.2) k/uL PT (9.0-12.0) sec INR (<1.2) APTT (22.0-30.0) sec Sodium (137-145) mmol/L Potassium (3.5-5.1) mmol/L Chloride (98-107) mmol/L Carbon Dioxide (22-30) mmol/L Anion Gap mmol/L BUN (7-17) mg/dL Creatinine (0.52-1.04) mg/dL Est GFR (CKD-EPI)AfAm (>60 ml/min/1.73 sqM) Est GFR (CKD-EPI)NonAf (>60 ml/min/1.73 sqM) Glucose (74-99) mg/dL Calcium (8.4-10.2) mg/dL Total Bilirubin (0.2-1.3) mg/dL AST (14-36) U/L ALT (9-52) U/L Alkaline Phosphatase (38-126) U/L Total Protein (6.3-8.2) g/dL Albumin (3.5-5.0) g/dL Amylase (30-110) U/L Lipase (23-300) U/L Urine Color Light Yellow Urine Appearance Clear (Clear) Urine pH 7.0 (5.0-8.0) Ur Specific [place] 1.012 (1.001-1.035) Urine Protein Negative (Negative) Urine Glucose (UA) Negative (Negative) Urine Ketones Negative (Negative) Urine Blood Negative (Negative) Urine Nitrite Negative (Negative) Urine Bilirubin Negative (Negative) Urine Urobilinogen <2.0 (<2.0) mg/dL Ur Leukocyte Esterase Trace H (Negative) Urine RBC <1 (0-5) /hpf Urine WBC 1 (0-5) /hpf Ur Squamous Epith Cells 3 (0-4) /hpf Urine Bacteria Rare H (None) /hpf 12/12/18 14:53 EKG performed at 1351 shows normal sinus rhythm normal EKG. Ventricular rate of 70 bpm. Arrival is 120 ms. She mormonism 74 ms. QT QTc is 386/[address] elevation or T-wave inversions. - Radiology Data Radiology results: report reviewed Disposition Clinical Impression: Upper abdominal pain Disposition: HOME SELF-CARE Condition: Good Instructions (If sedation given, give patient instructions): Abdominal Pain (ED) Additional Instructions: Continue to dose antacid medication. Clear liquid diet. Follow-up with primary care doctor turn to the emergency department if any alarming signs or symptoms occur. Prescriptions: Famotidine [Pepcid AC] 10 mg PO BID #20 tablet Ondansetron Odt [Zofran Odt] 4 mg PO Q8HR PRN #20 tab PRN Reason: Nausea Is patient prescribed a controlled substance at d/c from ED?: No Referrals: Samuel Daneils MD [Primary Care Provider] - 1-2 days Time of Disposition: 16:29
--- NOTE | 2018-12-12 15:03 | XR ---
EXAMINATION TYPE: XR chest 2V DATE OF EXAM: 12/12/2018 COMPARISON: 05/28/2017 INDICATION: Pain short of breath TECHNIQUE: Frontal and lateral views of the chest are obtained. FINDINGS: The heart size is normal. The pulmonary vasculature is normal. The lungs are clear. IMPRESSION: 1. No acute pulmonary process.
[2018-12-12] MEDS ORDERED: diphenhydrAMINE 50 MG/ML 1 ML VIAL IVP STA (16:37)
[2018-12-12] MEDS ORDERED: MORPHINE SULFATE 2 MG/ML SYRINGE IVP ONE (16:37)
[2018-12-12] MEDS ORDERED: MAG HYDROX/AL HYDROX/SIMETH 30 ML, HYOSCYAMINE ELIXIR 10 ML, CIMETIDINE HCL 300 MG, LID... PO STA ×4 (16:37)
[2018-12-12] MEDS ORDERED: METOCLOPRAMIDE 5 MG/ML 2 ML VIAL IVP STA (16:37)
[2018-12-12 16:59] VITALS: BP 131/78; PULSE 61
== END 2018-12-12 17:18 | disposition home or self-care (01) ==
LOC: EC 13:36
DX: R10.11 Right upper quadrant pain (principal); R10.12 Left upper quadrant pain; R06.02 Shortness of breath; K21.9 Gastro-esophageal reflux disease without esophagitis; F32.9 Major depressive disorder, single episode, unspecified; F41.9 Anxiety disorder, unspecified; Z88.0 Allergy status to penicillin; Z88.1 Allergy status to other antibiotic agents; Z88.2 Allergy status to sulfonamides; Z91.011 Allergy to milk products; Z91.048 Other nonmedicinal substance allergy status; Z79.1 Long term (current) use of non-steroidal anti-inflammatories (NSAID); Z79.899 Other long term (current) drug therapy; Z87.42 Personal history of other diseases of the female genital tract; Z90.49 Acquired absence of other specified parts of digestive tract; Z98.51 Tubal ligation status
CPT/HCPCS: 36415; 93005; 80053; 82150; 83690; 85025; 85610; 85730; 81001; 71046; 99285; 96374; 96375 ×5; 96361; J1200; J2765; J2405; J1885; J2270; C9113

== ENCOUNTER 2018-12-17 21:40 | Emergency (ER) | payer OTHER ==
[2018-12-17 22:55] LABS: Appearance,Urine Clear (Clear); Bilirubin,Urine Negative (Negative); Blood,Urine Negative (Negative); Color,Urine Colorless; Glucose,Urine (UA) Negative (Negative); Ketones,Urine Negative (Negative); Leukocyte Esterase,Urine Negative (Negative); Nitrite,Urine Negative (Negative); Protein,Urine Negative (Negative); Specific Gravity,Urine 1.009 (1.001-1.035); Urobilinogen,Urine <2.0 mg/dL (<2.0)
[2018-12-18 01:02] VITALS: RESP 18
[2018-12-18] MEDS ORDERED: HYDROmorphone 1 MG/ML 1 ML SYRINGE IM STA (03:03)
[2018-12-18] MEDS ORDERED: KETOROLAC 30 MG/ML 1 ML VIAL IM STA (03:03)
--- NOTE | 2018-12-18 03:04 | ED ---
Abdominal Pain HPI - General Chief Complaint: Abdominal Pain Stated Complaint: Abd Pain Time Seen by Provider: 12/18/18 01:13 Source: patient Mode of arrival: ambulatory Limitations: no limitations - History of Present Illness Initial Comments: 28-year-old female patient with known to our department with chronic abdominal pain and endometriosis presents to the emergency department today for evaluation of left-sided abdominal pain. Patient states this pain started several days ago and has been getting worse. She describes it as a sharp pain to the left upper quadrant. Denies radiation of the pain through to her back. Denies any shortness of breath or chest pain with this. Patient states that she did call her physician today and he told her to come here for further evaluation. Patient states that she has been nauseated but has not vomited. States that her home Phenergan and Zofran are helping to control the nausea. States her bowel movements have been normal. States she did take a stool softener which seemed to worsen her symptoms. She denies any hematochezia or melena. Denies any fever or chills. States she is urinating without difficulty. Patient denies chance of , states she has had tubal ligation. Patient denies any recent rash, numbness, tingling, dizziness, weakness, hematuria, dysuria, urinary urgency, urinary frequency, headache, visual changes, or any other complaints. - Related Data Home Medications Medication Instructions Recorded Confirmed Ranitidine HCl 150 mg PO BID 12/26/15 09/11/18 Sertraline [Zoloft] 50 mg PO HS 02/25/18 09/11/18 Ibuprofen [Motrin Ib] 600 mg PO Q6HR 09/11/18 09/11/18 Keto (Diet Pill Otc) 1 tab PO DAILY 09/11/18 09/11/18 Previous Rx's Medication Instructions Recorded Dicyclomine [Bentyl] 20 mg PO QID PRN #20 tablet 10/12/18 HYDROcodone/APAP 5-325MG [[place] 5] 1 each PO Q6HR PRN #12 tab 10/12/18 Moxifloxacin HCl 400 mg PO DAILY #10 tab 10/12/18 Ondansetron Odt [Zofran Odt] 4 mg PO Q8HR PRN #20 tab 10/12/18 Famotidine [Pepcid AC] 10 mg PO BID #20 tablet 12/12/18 Ondansetron Odt [Zofran Odt] 4 mg PO Q8HR PRN #20 tab 12/12/18 Allergies Allergy/AdvReac Type Severity Reaction Status Date / Time adhesive tape Allergy Rash/Hives Verified 12/17/18 22:39 aloe vera Allergy Rash/Hives Verified 12/17/18 22:39 azithromycin Allergy Rash/Hives Verified 12/17/18 22:39 metronidazole [From Flagyl] Allergy Rash/Hives Verified 12/17/18 22:39 Penicillins Allergy Rash/Hives Verified 12/17/18 22:39 sulfamethoxazole Allergy Rash/Hives Verified 12/17/18 22:39 [From Bactrim] trimethoprim [From Bactrim] Allergy Rash/Hives Verified 12/17/18 22:39 milk AdvReac Abdominal Verified 12/17/18 22:39 Pain Review of Systems ROS Statement: Those systems with pertinent positive or pertinent negative responses have been documented in the HPI. ROS Other: All systems not noted in ROS Statement are negative. Past Medical History Past Medical History: GERD/Reflux Additional Past Medical History / Comment(s): endometriosis, polycystic ovarian syndrome History of Any Multi-Drug Resistant Organisms: None Reported Past Surgical History: Section, Cholecystectomy, Tubal Ligation Additional Past Surgical History / Comment(s): laparoscopy x2, c section x 3 Past Anesthesia/Blood Transfusion Reactions: No Reported Reaction Past Psychological History: Anxiety, Depression Smoking Status: Never smoker Past Alcohol Use History: Rare Past Drug Use History: None Reported - Past Family History Mother Family Medical History: Hyperlipidemia Additional Family Medical History / Comment(s): depression anxiety General Exam Limitations: no limitations General appearance: alert, in no apparent distress, other (This is a well- developed, well-nourished adult female patient in no acute distress. Vital signs upon presentation are temperature 98.7F, pulse 76, respirations 15, blood pressure 133/73, pulse ox 100% on room air.) Eye exam: Present: normal appearance, PERRL, EOMI. Absent: scleral icterus, conjunctival injection, periorbital swelling ENT exam: Present: normal exam, normal oropharynx, mucous membranes moist Respiratory exam: Present: normal lung sounds bilaterally. Absent: respiratory distress, wheezes, rales, rhonchi, stridor Cardiovascular Exam: Present: regular rate, normal rhythm, normal heart sounds. Absent: systolic murmur, diastolic murmur, rubs, gallop, clicks GI/Abdominal exam: Present: soft, tenderness (Left sided abdominal tenderness), normal bowel sounds. Absent: distended, guarding, rebound, rigid Neurological exam: Present: alert, oriented X3, CN II-XII intact Psychiatric exam: Present: normal affect, normal mood Skin exam: Present: warm, dry, intact, normal color. Absent: rash Course Vital Signs 12/17/18 12/18/18 12/18/18 22:36 00:59 03:41 Temperature 98.7 F 98.0 F Pulse Rate 76 68 64 Respiratory 15 18 18 Rate Blood Pressure 133/73 131/82 128/78 O2 Sat by Pulse 100 100 100 Oximetry Medical Decision Making - Medical Decision Making 28-year-old female patient presents to the emergency department today for evaluation of left-sided abdominal pain. Patient does have history of chronic abdominal pain and endometriosis. Patient was recently evaluated for similar pain. Physical examination did reveal some mild sided abdominal tenderness. Patient is not vomiting. Tolerating oral intake. Urinalysis and KUB x-rays were unremarkable. She is instructed to follow-up with her primary care physician and her motorcycle deliverer for further evaluation and possible endoscopy procedures. She is instructed take her home pain medication and nausea medication as directed. Return parameters were discussed in detail. She verbalizes understanding and agrees with this plan. - Lab Data Lab Results 12/17/18 12/17/18 Range/Units 22:40 22:40 Urine Color Colorless Urine Appearance Clear (Clear) Urine pH 7.0 (5.0-8.0) Ur Specific [place] 1.009 (1.001-1.035) Urine Protein Negative (Negative) Urine Glucose (UA) Negative (Negative) Urine Ketones Negative (Negative) Urine Blood Negative (Negative) Urine Nitrite Negative (Negative) Urine Bilirubin Negative (Negative) Urine Urobilinogen <2.0 (<2.0) mg/dL Ur Leukocyte Esterase Negative (Negative) Urine HCG, Qual Not Detected (Not Detectd) - Radiology Data Radiology results: report reviewed, image reviewed KUB x-ray of the abdomen is obtained. Report was reviewed in its entirety. Impression by Dr. Yan shows unremarkable abdomen. Disposition Clinical Impression: Abdominal pain Disposition: HOME SELF-CARE Condition: Good Instructions (If sedation given, give patient instructions): Abdominal Pain (ED) Additional Instructions: Follow up with your primary care physician for recheck in 1-2 days. Follow up with gastroenterology for possible upper endoscopy or colonoscopy. Return to the emergency department for recheck for any new, worsening, or concerning symptoms. Is patient prescribed a controlled substance at d/c from ED?: No Referrals: Samuel Daniels MD [Primary Care Provider] - 1-2 days Time of Disposition: 03:04
[2018-12-18 03:41] VITALS: BP 128/78; PULSE 64; TEMP 98
--- NOTE | 2018-12-18 07:50 | XR ---
EXAMINATION TYPE: XR KUB DATE OF EXAM: 12/18/2018 COMPARISON: 10/16/2018 INDICATION: Pain left upper quadrant TECHNIQUE: Single view abdomen upright view FINDINGS: There is a normal bowel gas pattern. Psoas margins are normal. No organomegaly is present. Surgical clips are in the right upper quadrant and within the pelvis. IMPRESSION: 1. Unremarkable Abdomen
== END 2018-12-18 03:41 | disposition home or self-care (01) ==
LOC: EC 21:40
DX: R10.12 Left upper quadrant pain (principal); R11.0 Nausea; K21.9 Gastro-esophageal reflux disease without esophagitis; F41.9 Anxiety disorder, unspecified; F32.9 Major depressive disorder, single episode, unspecified; Z87.42 Personal history of other diseases of the female genital tract; Z90.49 Acquired absence of other specified parts of digestive tract; Z98.51 Tubal ligation status; Z98.890 Other specified postprocedural states; Z79.1 Long term (current) use of non-steroidal anti-inflammatories (NSAID); Z79.899 Other long term (current) drug therapy; Z88.0 Allergy status to penicillin; Z88.1 Allergy status to other antibiotic agents; Z88.2 Allergy status to sulfonamides; Z91.011 Allergy to milk products; Z91.048 Other nonmedicinal substance allergy status
CPT/HCPCS: 81003; 81025; 74018; 99284; 96372 ×2; J1885; J1170

== ENCOUNTER → 2018-12-22 | Outpatient (CLI) | payer OTHER ==
--- NOTE | 2018-12-22 11:17 | CT ---
EXAMINATION TYPE: CT abdomen pelvis w con DATE OF EXAM: 12/22/2018 COMPARISON: 10/12/2018 HISTORY: Left sided pain with nausea CT DLP: 1235.3 mGycm Automated exposure control for dose reduction was used. CONTRAST: CT scan of the abdomen pelvis is performed with IV Contrast, patient injected with 100 mL of Isovue 3 00. FINDINGS- LUNG BASES- No significant abnormality is appreciated. LIVER/GB-postcholecystectomy changes are noted.. PANCREAS- No gross abnormality is seen. SPLEEN- No gross abnormality is seen. ADRENALS- No gross abnormality is seen. KIDNEYS/BLADDER- no hydronephrosis nephrolithiasis or renal mass. BOWEL-hiatal hernia incidentally noted. Bowel gas pattern nonspecific. Subsegmental areas of wall thi ckening involving the colon with particular attention to the left:.. LYMPH NODES- No greater than 1cm abdominal or pelvic lymph nodes areappreciated. OSSEOUS STRUCTURES- No significant abnormality is seen. OTHER- aorta of normal caliber. No free fluid. IMPRESSION- 1. There are multiple areas of segmental wall thickening of the colon with most marked findings seen involving the left colon. Correlate for colitis. Inflammatory bowel disease in the differential diagn osis. Correlate clinically.
== END | disposition home or self-care (01) ==
LOC: RADCTMAIN 08:43
PROVIDERS: ATTEND Family Medicine
DX: K63.89 Other specified diseases of intestine (principal); R10.12 Left upper quadrant pain; R10.31 Right lower quadrant pain; R11.2 Nausea with vomiting, unspecified; Z88.0 Allergy status to penicillin; Z91.040 Latex allergy status; Z91.09 Other allergy status, other than to drugs and biological substances
CPT/HCPCS: 74177; Q9967

== ENCOUNTER 2018-12-24 17:26 | Emergency (ER) | payer OTHER ==
[2018-12-24] MEDS ORDERED: ONDANSETRON ODT 4 MG TAB PO STA (18:36)
[2018-12-24] MEDS ORDERED: ACET/COD 300 MG/30 MG STARTER PACK 6 TAB BTL PO STA (18:36)
--- NOTE | 2018-12-24 18:41 | ED ---
Abdominal Pain HPI - General Chief Complaint: Abdominal Pain Stated Complaint: Abd Pain Time Seen by Provider: 12/24/18 18:10 Source: patient Mode of arrival: ambulatory Limitations: no limitations - History of Present Illness Initial Comments: 28-year-old female patient with frequent visits to the emergency department for abdominal pain presents to the emergency department today for evaluation of left upper quadrant pain. Patient was seen and evaluated for this here a few days ago. Patient did have a follow-up appointment with her primary care physician and had outpatient CT of the abdomen and pelvis as well as an upper GI series xray perfomed. She had findings of sliding hiatal hernia and left sided colitis. Patient denies any fever or chills. States she has been nauseated but denies any vomiting. States she is tolerating oral intake. Patient states she presented here because her primary care physician was supposed to call in prescription for pain medication however was called the office and unable to do so. Patient states she is unable tolerate the pain without pain medication. Patient denies any recent rash, shortness breath, chest pain, diarrhea, constipation, back pain, numbness, tingling, dizziness, weakness, hematuria, dysuria, urinary urgency, urinary frequency, headache, visual changes, or any other complaints. - Related Data Home Medications Medication Instructions Recorded Confirmed Ranitidine HCl 150 mg PO HS 12/26/15 12/24/18 Sertraline HCl [Zoloft] 100 mg PO HS 12/24/18 12/24/18 busPIRone HCl [Buspar] 10 mg PO TID 12/24/18 12/24/18 Previous Rx's Medication Instructions Recorded Ondansetron Odt [Zofran Odt] 4 mg PO Q8HR PRN #20 tab 12/12/18 Allergies Allergy/AdvReac Type Severity Reaction Status Date / Time adhesive tape Allergy Rash/Hives Verified 12/24/18 18:45 aloe vera Allergy Rash/Hives Verified 12/24/18 18:45 azithromycin Allergy Rash/Hives Verified 12/24/18 18:45 metronidazole [From Flagyl] Allergy Rash/Hives Verified 12/24/18 18:45 Penicillins Allergy Rash/Hives Verified 12/24/18 18:45 sulfamethoxazole Allergy Rash/Hives Verified 12/24/18 18:45 [From Bactrim] trimethoprim [From Bactrim] Allergy Rash/Hives Verified 12/24/18 18:45 Review of Systems ROS Statement: Those systems with pertinent positive or pertinent negative responses have been documented in the HPI. ROS Other: All systems not noted in ROS Statement are negative. Past Medical History Past Medical History: GERD/Reflux Additional Past Medical History / Comment(s): endometriosis, polycystic ovarian syndrome History of Any Multi-Drug Resistant Organisms: None Reported Past Surgical History: Section, Cholecystectomy, Tubal Ligation Additional Past Surgical History / Comment(s): laparoscopy x2, c section x 3 Past Anesthesia/Blood Transfusion Reactions: No Reported Reaction Past Psychological History: Anxiety, Depression Smoking Status: Never smoker Past Alcohol Use History: Rare Past Drug Use History: None Reported - Past Family History Mother Family Medical History: Hyperlipidemia Additional Family Medical History / Comment(s): depression anxiety General Exam Limitations: no limitations General appearance: alert, in no apparent distress, other (Physical well- developed, well-nourished adult female patient in no acute distress. Vital signs upon presentation are temperature 98.4F, pulse 75, respirations 18, blood pressure 111/72, pulse ox 98% on room air.) Eye exam: Present: normal appearance, PERRL, EOMI. Absent: scleral icterus, conjunctival injection, periorbital swelling ENT exam: Present: normal exam, normal oropharynx, mucous membranes moist Respiratory exam: Present: normal lung sounds bilaterally. Absent: respiratory distress, wheezes, rales, rhonchi, stridor Cardiovascular Exam: Present: regular rate, normal rhythm, normal heart sounds. Absent: systolic murmur, diastolic murmur, rubs, gallop, clicks GI/Abdominal exam: Present: soft, tenderness (LUQ tenderness), normal bowel sounds. Absent: distended, guarding, rebound, rigid Back exam: Present: normal inspection. Absent: CVA tenderness (R), CVA tenderness (L) Neurological exam: Present: alert, oriented X3, CN II-XII intact Psychiatric exam: Present: normal affect, normal mood Skin exam: Present: warm, dry, intact, normal color. Absent: rash Course Vital Signs 12/24/18 17:36 Temperature 98.4 F Pulse Rate 75 Respiratory 18 Rate Blood Pressure 111/72 O2 Sat by Pulse 98 Oximetry Medical Decision Making - Medical Decision Making 28-year-old female patient presents to the emergency department today requesting pain medication for abdominal pain. Patient had outpatient CT abdomen and pelvis as well as upper GI series x-ray performed which showed sliding hiatal hernia and possible colitis. Patient states that her primary care physician did not call in the pain medication like he was supposed to. Patient does have Zofran at home. Patient is afebrile. Vital signs are within normal ranges. She'll be given Zyrtec for Tylenol with Codeine and Zofran. Instructed to follow-up with the primary care physician for recheck in 1-2 days. She is instructed to follow up with GI specialist for recheck as soon as possible. Return parameters were discussed in detail. She verbalizes understanding and agrees this plan. Disposition Clinical Impression: Abdominal pain, Hiatal hernia, Colitis Disposition: HOME SELF-CARE Condition: Good Instructions (If sedation given, give patient instructions): Hiatal Hernia (ED), Abdominal Pain (ED), Colitis (ED) Additional Instructions: Take pain medication as directed. Take nausea medication as directed. Continue taking your antacid medication. Follow up with gastroenterology for further evaluation and further determination regarding her colitis. Follow-up with your primary care physician for recheck. Return to the emergency department immediately for any new, worsening, or concerning symptoms. Is patient prescribed a controlled substance at d/c from ED?: No Referrals: Samuel Daniels MD [Primary Care Provider] - 1-2 days Time of Disposition: 18:41
[2018-12-24 19:08] VITALS: BP 136/75; PULSE 63; RESP 16; TEMP 98
== END 2018-12-24 19:07 | disposition home or self-care (01) ==
LOC: EC 17:26
DX: K52.9 Noninfective gastroenteritis and colitis, unspecified (principal); K44.9 Diaphragmatic hernia without obstruction or gangrene; K21.9 Gastro-esophageal reflux disease without esophagitis; F32.9 Major depressive disorder, single episode, unspecified; F41.9 Anxiety disorder, unspecified; Z88.0 Allergy status to penicillin; Z88.1 Allergy status to other antibiotic agents; Z88.2 Allergy status to sulfonamides; Z91.048 Other nonmedicinal substance allergy status; Z79.899 Other long term (current) drug therapy; Z90.49 Acquired absence of other specified parts of digestive tract
CPT/HCPCS: 99283

== ENCOUNTER → 2018-12-24 | Outpatient (CLI) | payer OTHER ==
--- NOTE | 2018-12-24 11:56 | FL ---
EXAMINATION TYPE: FL UGI air DATE OF EXAM: 12/24/2018 COMPARISON: CT dated 12/22/2018 HISTORY: Left upper quadrant pain, nausea and vomiting TECHNIQUE: A double contrast UGI study is performed. 2 minutes and 6 seconds of fluoroscopy time was utilized with 59 images saved. FINDINGS: The esophagus shows normal motility and emptying into the stomach. No evidence of stricture noted. M oderate hiatal hernia is seen in the supine position indicating a sliding-type hiatal hernia. The stomach shows normal distensibility distensibility and peristalsis. Mildly thickened rugal folds are seen throughout. No evidence of any mass or ulcer disease. Mild gastroesophageal reflux was seen during real time performance of this study to the level of the distal esophagus. The duodenal bulb, sweep, and proximal small bowel loops are unremarkable. Cholecystectomy clips are noted. IMPRESSION: 1. Moderate sliding-type hiatal hernia seen in the supine position only. This is best demonstrated a marked on image 55/59. This results in mild gastroesophageal reflux. 2. Mildly thickened gastric rugal folds may also relate to gastritis.
== END | disposition home or self-care (01) ==
LOC: RADUSWWP 09:34
PROVIDERS: ATTEND Family Medicine
DX: K44.9 Diaphragmatic hernia without obstruction or gangrene (principal); K21.9 Gastro-esophageal reflux disease without esophagitis; Z88.0 Allergy status to penicillin; Z91.09 Other allergy status, other than to drugs and biological substances; Z91.041 Radiographic dye allergy status
CPT/HCPCS: 74246

== ENCOUNTER 2018-12-31 18:37 | Emergency (ER) | payer OTHER ==
[2018-12-31] MEDS ORDERED: ONDANSETRON 4 MG/2 ML VIAL IVP STA (19:41)
[2018-12-31] MEDS ORDERED: KETOROLAC 30 MG/ML 1 ML VIAL IVP STA (19:41)
--- NOTE | 2018-12-31 19:43 | ED ---
Abdominal Pain HPI - General Chief Complaint: Abdominal Pain Stated Complaint: Abd pain Time Seen by Provider: 12/31/18 19:18 Source: patient Mode of arrival: ambulatory Limitations: no limitations - History of Present Illness Initial Comments: Patient is a 28-year-old female presents emergency Department with abdominal pain. Patient reports come to the emergency department a week ago with left upper quadrant abdominal pain and was discharged with pain medication. Patient has made an appointment to see a GI specialist but her appointment is not for another 2 weeks and she is unable to tolerate the pain. Patient reports persistent and throbbing left upper quadrant pain that radiates to the right upper quadrant region. Patient reports the pain is worse with eating. Patient had nausea and 2 episodes of vomiting yesterday but no diarrhea. Patient states she recently had a CT of the abdomen suggesting a possible hiatal hernia. Patient denies hematemesis, hematuria, hematochezia or melena. Patient reports eating only small serving sizes of food at a time. Patient denies fever, back pain, flank pain, suprapubic pain, shortness of breath, chest pain, chest palpitations, headaches, lightheadedness or dizziness. - Related Data Home Medications Medication Instructions Recorded Confirmed Sertraline HCl [Zoloft] 100 mg PO HS 12/24/18 12/31/18 busPIRone HCl [Buspar] 10 mg PO TID 12/24/18 12/31/18 Ranitidine HCl [Zantac] 150 mg PO BID 12/31/18 12/31/18 Previous Rx's Medication Instructions Recorded Ondansetron Odt [Zofran Odt] 4 mg PO Q8HR PRN #20 tab 12/12/18 Acetaminophen Tab [Tylenol Tab] 500 mg PO Q6H #30 tablet 12/31/18 Ibuprofen 400 mg PO TID PRN #30 tablet 12/31/18 Ondansetron Odt [Zofran Odt] 4 mg PO Q8HR PRN #10 tab 12/31/18 Allergies Allergy/AdvReac Type Severity Reaction Status Date / Time adhesive tape Allergy Rash/Hives Verified 12/31/18 19:33 aloe vera Allergy Rash/Hives Verified 12/31/18 19:33 azithromycin Allergy Rash/Hives Verified 12/31/18 19:33 metronidazole [From Flagyl] Allergy Rash/Hives Verified 12/31/18 19:33 Penicillins Allergy Rash/Hives Verified 12/31/18 19:33 sulfamethoxazole Allergy Rash/Hives Verified 12/31/18 19:33 [From Bactrim] trimethoprim [From Bactrim] Allergy Rash/Hives Verified 12/31/18 19:33 Review of Systems ROS Statement: Those systems with pertinent positive or pertinent negative responses have been documented in the HPI. ROS Other: All systems not noted in ROS Statement are negative. Past Medical History Past Medical History: GERD/Reflux Additional Past Medical History / Comment(s): endometriosis, polycystic ovarian syndrome History of Any Multi-Drug Resistant Organisms: None Reported Past Surgical History: Section, Cholecystectomy, Tubal Ligation Additional Past Surgical History / Comment(s): laparoscopy x2, c section x 3 Past Anesthesia/Blood Transfusion Reactions: No Reported Reaction Past Psychological History: Anxiety, Depression Smoking Status: Never smoker Past Alcohol Use History: Rare Past Drug Use History: None Reported - Past Family History Mother Family Medical History: Hyperlipidemia Additional Family Medical History / Comment(s): depression anxiety General Exam Limitations: no limitations General appearance: alert, in no apparent distress Head exam: Present: atraumatic, normocephalic, normal inspection Eye exam: Present: normal appearance, PERRL, EOMI Pupils: Present: normal accommodation ENT exam: Present: normal exam, mucous membranes moist, TM's normal bilaterally Neck exam: Present: normal inspection Respiratory exam: Present: normal lung sounds bilaterally. Absent: respiratory distress, wheezes, rales Cardiovascular Exam: Present: regular rate, normal rhythm, normal heart sounds GI/Abdominal exam: Present: soft, tenderness (Left upper quadrant right upper quadrant. Negative Lind sign. No rebound tenderness to McBurney point tenderness. Negative psoas sign. Negative Rovsing), normal bowel sounds. Absent: guarding, rebound Extremities exam: Present: normal inspection, full ROM Back exam: Present: normal inspection, full ROM. Absent: tenderness, CVA tenderness (R), CVA tenderness (L) Neurological exam: Present: alert, oriented X3 Psychiatric exam: Present: normal affect, normal mood Skin exam: Present: warm, intact, normal color Course Vital Signs 12/31/18 19:02 Temperature 99.0 F Pulse Rate 84 Respiratory 18 Rate Blood Pressure 128/76 O2 Sat by Pulse 99 Oximetry Medical Decision Making - Medical Decision Making Patient is 20-year-old female presents emergency Department with left upper quadrant pain. Patient was given Toradol to alleviate the pain with minimal improvement. CBC, CMP and UA were unremarkable. Patient will be given [place] for pain control. Patient advised to alternate between Tylenol and ibuprofen for pain control. Initially I ordered a KUB but after discussion with Dr. Araujo, he suggested if the labs are negative no further imaging is required. He advised the patient to be discharged with pain control until she follows up with a GI specialist. Patient will be discharged with Zofran - Lab Data Result diagrams: 12/31/18 19:49 12/31/18 19:49 Lab Results 12/31/18 12/31/18 12/31/18 Range/Units 19:49 19:49 19:49 WBC 4.9 (3.8-10.6) k/uL RBC 4.09 (3.80-5.40) m/uL Hgb 11.6 (11.4-16.0) gm/dL Hct 35.3 (34.0-46.0) % MCV 86.3 (80.0-100.0) fL MCH 28.4 (25.0-35.0) pg MCHC 32.9 (31.0-37.0) g/dL RDW 14.0 (11.5-15.5) % Plt Count 199 (150-450) k/uL Neutrophils % 58 % Lymphocytes % 34 % Monocytes % 5 % Eosinophils % 0 % Basophils % 0 % Neutrophils # 2.8 (1.3-7.7) k/uL Lymphocytes # 1.7 (1.0-4.8) k/uL Monocytes # 0.3 (0-1.0) k/uL Eosinophils # 0.0 (0-0.7) k/uL Basophils # 0.0 (0-0.2) k/uL Sodium 138 (137-145) mmol/L Potassium 3.9 (3.5-5.1) mmol/L Chloride 104 (98-107) mmol/L Carbon Dioxide 26 (22-30) mmol/L Anion Gap 8 mmol/L BUN 10 (7-17) mg/dL Creatinine 0.78 (0.52-1.04) mg/dL Est GFR (CKD-EPI)AfAm >90 (>60 ml/min/1.73 sqM) Est GFR (CKD-EPI)NonAf >90 (>60 ml/min/1.73 sqM) Glucose 93 (74-99) mg/dL Calcium 9.6 (8.4-10.2) mg/dL Total Bilirubin 0.7 (0.2-1.3) mg/dL AST 21 (14-36) U/L ALT 23 (9-52) U/L Alkaline Phosphatase 78 (38-126) U/L Total Protein 6.9 (6.3-8.2) g/dL Albumin 4.3 (3.5-5.0) g/dL Amylase 33 (30-110) U/L Lipase 31 (23-300) U/L Urine Color Light Yellow Urine Appearance Clear (Clear) Urine pH 6.5 (5.0-8.0) Ur Specific [place] 1.007 (1.001-1.035) Urine Protein Negative (Negative) Urine Glucose (UA) Negative (Negative) Urine Ketones Negative (Negative) Urine Blood Negative (Negative) Urine Nitrite Negative (Negative) Urine Bilirubin Negative (Negative) Urine Urobilinogen <2.0 (<2.0) mg/dL Ur Leukocyte Esterase Negative (Negative) Disposition Clinical Impression: Abdominal pain Disposition: HOME SELF-CARE Condition: Stable Instructions (If sedation given, give patient instructions): Abdominal Pain (ED) Additional Instructions: Please take prescribed medication as directed. Please follow-up with primary care. Please follow up with [facility]. Please return to emergency department if symptoms worsen. Is patient prescribed a controlled substance at d/c from ED?: No Referrals: Samuel Daniels MD [Primary Care Provider] - 1-2 days Time of Disposition: 21:10
[2018-12-31 20:03] LABS: Appearance,Urine Clear (Clear); Bilirubin,Urine Negative (Negative); Blood,Urine Negative (Negative); Color,Urine Light Yellow; Glucose,Urine (UA) Negative (Negative); Ketones,Urine Negative (Negative); Leukocyte Esterase,Urine Negative (Negative); Nitrite,Urine Negative (Negative); PH, Urine 6.5 (5.0-8.0); Protein,Urine Negative (Negative); Specific Gravity,Urine 1.007 (1.001-1.035); Urobilinogen,Urine <2.0 mg/dL (<2.0)
[2018-12-31 20:07] LABS: Basophils % (A) 0 %; Eosinophils % (A) 0 %; HCT 35.3 % (34.0-46.0); HGB 11.6 gm/dL (11.4-16.0); Lymphocytes # (A) 1.7 k/uL (1.0-4.8); Lymphocytes % (A) 34 %; MCH 28.4 pg (25.0-35.0); MCHC 32.9 g/dL (31.0-37.0); MCV 86.3 fL (80.0-100.0); Mean Platelet Volume 7.1; Monocytes # (A) 0.3 k/uL (0-1.0); Monocytes % (A) 5 %; Neutrophils # (A) 2.8 k/uL (1.3-7.7); Neutrophils % (A) 58 %; Platelet Count 199 k/uL (150-450); RBC 4.09 m/uL (3.80-5.40); WBC 4.9 k/uL (3.8-10.6)
[2018-12-31 20:10] LABS: ALT 23 U/L (9-52); AST 21 U/L (14-36); African American GFR (CKD) >90 (>60 ml/min/1.73 sqM); Albumin 4.3 g/dL (3.5-5.0); Alkaline Phosphatase 78 U/L (38-126); Amylase 33 U/L (30-110); Anion Gap 8 mmol/L; Blood Urea Nitrogen 10 mg/dL (7-17); Calcium 9.6 mg/dL (8.4-10.2); Carbon Dioxide 26 mmol/L (22-30); Chloride 104 mmol/L (98-107); Glucose 93 mg/dL (74-99); Lipase 31 U/L (23-300); Potassium 3.9 mmol/L (3.5-5.1); Sodium 138 mmol/L (137-145); Total Bilirubin 0.7 mg/dL (0.2-1.3); Total Protein 6.9 g/dL (6.3-8.2)
[2018-12-31] MEDS ORDERED: HYDROcodone/APAP 5-325MG 1 EACH TAB PO STA (21:07)
[2018-12-31 21:27] VITALS: BP 110/64; PULSE 69; RESP 16; TEMP 98
--- NOTE | 2018-12-31 22:00 | XR ---
EXAMINATION TYPE: XR KUB DATE OF EXAM: 12/31/2018 COMPARISON: 12/18/2018 HISTORY: Left upper quadrant pain TECHNIQUE: 2 upright views FINDINGS: Visualized lung bases and pleural spaces are negative. Bowel gas pattern is normal. No pneumatosis or pneumoperitoneum. No acute skeletal or soft tissue findings evident. No evidence of visceromegaly. IMPRESSION: No acute radiographic process.
== END 2018-12-31 21:25 | disposition home or self-care (01) ==
LOC: EC 18:37
DX: R10.12 Left upper quadrant pain (principal); R10.812 Left upper quadrant abdominal tenderness; R10.811 Right upper quadrant abdominal tenderness; K21.9 Gastro-esophageal reflux disease without esophagitis; F41.9 Anxiety disorder, unspecified; F32.9 Major depressive disorder, single episode, unspecified; Z79.899 Other long term (current) drug therapy; Z91.048 Other nonmedicinal substance allergy status; Z88.1 Allergy status to other antibiotic agents; Z88.0 Allergy status to penicillin; Z88.2 Allergy status to sulfonamides; Z91.09 Other allergy status, other than to drugs and biological substances
CPT/HCPCS: 36415; 80053; 82150; 83690; 85025; 81003; 74018; 99284; 96374; 96375; J2405; J1885

== ENCOUNTER 2019-02-16 21:19 | Emergency (ER) | payer OTHER ==
[2019-02-16 21:36] VITALS: RESP 18
[2019-02-16] MEDS ORDERED: MORPHINE SULFATE 4 MG/ML SYRINGE IV STA (23:13)
[2019-02-16] MEDS ORDERED: ONDANSETRON 4 MG/2 ML VIAL IVP STA (23:13)
[2019-02-16] MEDS ORDERED: SODIUM CHLORIDE 0.9% 1,000 ML IV STA (23:13)
--- NOTE | 2019-02-16 23:15 | ED ---
Abdominal Pain HPI - General Chief Complaint: Abdominal Pain Stated Complaint: Abd Pain Time Seen by Provider: 02/16/19 23:13 Source: patient, RN notes reviewed, old records reviewed Mode of arrival: ambulatory Limitations: no limitations - History of Present Illness Initial Comments: This is a 20-year-old female the ER for evaluation. Patient resents today for evaluation regards to abdominal pain. History of tubal ligation, patient was seen by primary care for evaluation of similar complaint 2 with no change in symptoms. Patient denies dysuria has been on her period. No nausea vomiting no fevers. Patient does have appointment scheduled with OB MD Complaint: abdominal pain -: week(s) Location: suprapubic Radiation: suprapubic Migration to: suprapubic Severity: moderate Severity scale (1-10): 6 Quality: cramping, stabbing Improves With: nothing Worsens With: nothing Associated Symptoms: denies other symptoms - Related Data Home Medications Medication Instructions Recorded Confirmed Sertraline HCl [Zoloft] 100 mg PO HS 12/24/18 02/16/19 busPIRone HCl [Buspar] 5 mg PO BID 12/24/18 02/16/19 Ranitidine HCl [Zantac] 150 mg PO BID 12/31/18 02/16/19 Hydrocodone/Acetaminophen [[place] 1 tab PO DAILY PRN 01/12/19 02/16/19 5-325 mg Tablet] busPIRone HCl [Buspar] 10 mg PO BID PRN 01/12/19 02/16/19 Ibuprofen [Motrin Ib] 600 mg PO Q6H PRN 02/16/19 02/16/19 traMADol HCL [Ultram] 50 mg PO QID PRN 02/16/19 02/16/19 Allergies Allergy/AdvReac Type Severity Reaction Status Date / Time adhesive tape Allergy Rash/Hives Verified 02/16/19 23:28 aloe vera Allergy Rash/Hives Verified 02/16/19 23:28 azithromycin Allergy Rash/Hives Verified 02/16/19 23:28 metronidazole [From Flagyl] Allergy Rash/Hives Verified 02/16/19 23:28 Penicillins Allergy Rash/Hives Verified 02/16/19 23:28 sulfamethoxazole Allergy Rash/Hives Verified 02/16/19 23:28 [From Bactrim] trimethoprim [From Bactrim] Allergy Rash/Hives Verified 02/16/19 23:28 Review of Systems ROS Statement: Those systems with pertinent positive or pertinent negative responses have been documented in the HPI. ROS Other: All systems not noted in ROS Statement are negative. Past Medical History Past Medical History: GERD/Reflux Additional Past Medical History / Comment(s): Recent abdominal pain, diarrhea and vomiting. Endometriosis, polycystic ovarian syndrome. History of Any Multi-Drug Resistant Organisms: None Reported Past Surgical History: Section, Cholecystectomy, Tubal Ligation Additional Past Surgical History / Comment(s): Laparoscopy X2, Section X3. Past Anesthesia/Blood Transfusion Reactions: No Reported Reaction Past Psychological History: Anxiety, Depression Smoking Status: Never smoker Past Alcohol Use History: Rare Past Drug Use History: None Reported - Past Family History Mother Family Medical History: Hyperlipidemia Additional Family Medical History / Comment(s): Depression and anxiety. General Exam Limitations: no limitations General appearance: alert, in no apparent distress Head exam: Present: atraumatic, normocephalic, normal inspection Eye exam: Present: normal appearance, PERRL, EOMI. Absent: scleral icterus, conjunctival injection, periorbital swelling ENT exam: Present: normal exam, mucous membranes moist Neck exam: Present: normal inspection. Absent: tenderness, meningismus, lymphadenopathy Respiratory exam: Present: normal lung sounds bilaterally. Absent: respiratory distress, wheezes, rales, rhonchi, stridor Cardiovascular Exam: Present: regular rate, normal rhythm, normal heart sounds. Absent: systolic murmur, diastolic murmur, rubs, gallop, clicks GI/Abdominal exam: Present: soft, normal bowel sounds. Absent: distended, tenderness, guarding, rebound, rigid Extremities exam: Present: normal inspection, full ROM, normal capillary refill. Absent: tenderness, pedal edema, joint swelling, calf tenderness Back exam: Present: normal inspection Neurological exam: Present: alert, oriented X3, CN II-XII intact Psychiatric exam: Present: normal affect, normal mood Skin exam: Present: warm, dry, intact, normal color. Absent: rash Course Vital Signs 02/16/19 21:32 Temperature 98.6 F Pulse Rate 71 Respiratory 18 Rate Blood Pressure 124/71 O2 Sat by Pulse 100 Oximetry - Reevaluation(s) Reevaluation #1: 02/17/19 00:36 Medical records reviewed Reevaluation #2: 02/17/19 00:36 Pains controlled Medical Decision Making - Medical Decision Making 20 female the ER for evaluation. Patient has presentation today for abdominal pain UTI nonspecific abdominal pain, will discharge on antibiotics - Lab Data Result diagrams: 02/16/19 23:35 02/16/19 23:35 Lab Results 02/16/19 02/16/19 02/16/19 Range/Units 23:30 23:35 23:35 WBC 6.6 (3.8-10.6) k/uL RBC 3.94 (3.80-5.40) m/uL Hgb 11.1 L (11.4-16.0) gm/dL Hct 34.8 (34.0-46.0) % MCV 88.2 (80.0-100.0) fL MCH 28.2 (25.0-35.0) pg MCHC 32.0 (31.0-37.0) g/dL RDW 14.2 (11.5-15.5) % Plt Count 210 (150-450) k/uL Neutrophils % 70 % Lymphocytes % 22 % Monocytes % 4 % Eosinophils % 1 % Basophils % 0 % Neutrophils # 4.7 (1.3-7.7) k/uL Lymphocytes # 1.5 (1.0-4.8) k/uL Monocytes # 0.3 (0-1.0) k/uL Eosinophils # 0.1 (0-0.7) k/uL Basophils # 0.0 (0-0.2) k/uL Sodium 140 (137-145) mmol/L Potassium 4.2 (3.5-5.1) mmol/L Chloride 104 (98-107) mmol/L Carbon Dioxide 28 (22-30) mmol/L Anion Gap 8 mmol/L BUN 16 (7-17) mg/dL Creatinine 0.74 (0.52-1.04) mg/dL Est GFR (CKD-EPI)AfAm >90 (>60 ml/min/1.73 sqM) Est GFR (CKD-EPI)NonAf >90 (>60 ml/min/1.73 sqM) Glucose 86 (74-99) mg/dL Plasma Lactic Acid [place] (0.7-2.0) mmol/L Calcium 9.8 (8.4-10.2) mg/dL Total Bilirubin 0.5 (0.2-1.3) mg/dL AST 40 H (14-36) U/L ALT 15 (9-52) U/L Alkaline Phosphatase 82 (38-126) U/L Total Protein 7.2 (6.3-8.2) g/dL Albumin 4.4 (3.5-5.0) g/dL Amylase 71 (30-110) U/L Lipase 61 (23-300) U/L Urine Color Light Yellow Urine Appearance Turbid H (Clear) Urine pH 8.0 (5.0-8.0) Ur Specific [place] 1.017 (1.001-1.035) Urine Protein Negative (Negative) Urine Glucose (UA) Negative (Negative) Urine Ketones Negative (Negative) Urine Blood Negative (Negative) Urine Nitrite Negative (Negative) Urine Bilirubin Negative (Negative) Urine Urobilinogen <2.0 (<2.0) mg/dL Ur Leukocyte Esterase Moderate H (Negative) Urine WBC 31 H (0-5) /hpf Ur Squamous Epith Cells 2 (0-4) /hpf Amorphous Sediment Moderate H (None) /hpf Urine Bacteria Few H (None) /hpf 02/16/19 Range/Units 23:35 WBC (3.8-10.6) k/uL RBC (3.80-5.40) m/uL Hgb (11.4-16.0) gm/dL Hct (34.0-46.0) % MCV (80.0-100.0) fL MCH (25.0-35.0) pg MCHC (31.0-37.0) g/dL RDW (11.5-15.5) % Plt Count (150-450) k/uL Neutrophils % % Lymphocytes % % Monocytes % % Eosinophils % % Basophils % % Neutrophils # (1.3-7.7) k/uL Lymphocytes # (1.0-4.8) k/uL Monocytes # (0-1.0) k/uL Eosinophils # (0-0.7) k/uL Basophils # (0-0.2) k/uL Sodium (137-145) mmol/L Potassium (3.5-5.1) mmol/L Chloride (98-107) mmol/L Carbon Dioxide (22-30) mmol/L Anion Gap mmol/L BUN (7-17) mg/dL Creatinine (0.52-1.04) mg/dL Est GFR (CKD-EPI)AfAm (>60 ml/min/1.73 sqM) Est GFR (CKD-EPI)NonAf (>60 ml/min/1.73 sqM) Glucose (74-99) mg/dL Plasma Lactic Acid [place] 0.8 (0.7-2.0) mmol/L Calcium (8.4-10.2) mg/dL Total Bilirubin (0.2-1.3) mg/dL AST (14-36) U/L ALT (9-52) U/L Alkaline Phosphatase (38-126) U/L Total Protein (6.3-8.2) g/dL Albumin (3.5-5.0) g/dL Amylase (30-110) U/L Lipase (23-300) U/L Urine Color Urine Appearance (Clear) Urine pH (5.0-8.0) Ur Specific [place] (1.001-1.035) Urine Protein (Negative) Urine Glucose (UA) (Negative) Urine Ketones (Negative) Urine Blood (Negative) Urine Nitrite (Negative) Urine Bilirubin (Negative) Urine Urobilinogen (<2.0) mg/dL Ur Leukocyte Esterase (Negative) Urine WBC (0-5) /hpf Ur Squamous Epith Cells (0-4) /hpf Amorphous Sediment (None) /hpf Urine Bacteria (None) /hpf - Radiology Data Radiology results: report reviewed (CT abdomen pelvis is negative for acute disease), image reviewed Disposition Clinical Impression: Abdominal pain, UTI (urinary tract infection) Disposition: HOME SELF-CARE Condition: Good Instructions (If sedation given, give patient instructions): Abdominal Pain (ED), Urinary Tract Infection in Women (ED) Is patient prescribed a controlled substance at d/c from ED?: No Referrals: Samuel Daniels MD [Primary Care Provider] - 1-2 days
[2019-02-17 00:01] LABS: ALT 15 U/L (9-52); AST 40 U/L (14-36); African American GFR (CKD) >90 (>60 ml/min/1.73 sqM); Albumin 4.4 g/dL (3.5-5.0); Alkaline Phosphatase 82 U/L (38-126); Amylase 71 U/L (30-110); Anion Gap 8 mmol/L; Blood Urea Nitrogen 16 mg/dL (7-17); Calcium 9.8 mg/dL (8.4-10.2); Carbon Dioxide 28 mmol/L (22-30); Chloride 104 mmol/L (98-107); Glucose 86 mg/dL (74-99); Potassium 4.2 mmol/L (3.5-5.1); Sodium 140 mmol/L (137-145); Total Bilirubin 0.5 mg/dL (0.2-1.3); Total Protein 7.2 g/dL (6.3-8.2)
[2019-02-17 00:02] LABS: Basophils % (A) 0 %; Eosinophils # (A) 0.1 k/uL (0-0.7); Eosinophils % (A) 1 %; HCT 34.8 % (34.0-46.0); HGB 11.1 gm/dL (11.4-16.0); Lymphocytes # (A) 1.5 k/uL (1.0-4.8); Lymphocytes % (A) 22 %; MCH 28.2 pg (25.0-35.0); MCV 88.2 fL (80.0-100.0); Mean Platelet Volume 7.1; Monocytes # (A) 0.3 k/uL (0-1.0); Monocytes % (A) 4 %; Neutrophils # (A) 4.7 k/uL (1.3-7.7); Neutrophils % (A) 70 %; Platelet Count 210 k/uL (150-450); RBC 3.94 m/uL (3.80-5.40); RDW 14.2 % (11.5-15.5); WBC 6.6 k/uL (3.8-10.6)
[2019-02-17 00:08] LABS: Amorphous Sediment,Urine Moderate /hpf; Appearance,Urine Turbid (Clear); Bacteria,Urine Few /hpf; Bilirubin,Urine Negative (Negative); Blood,Urine Negative (Negative); Color,Urine Light Yellow; Glucose,Urine (UA) Negative (Negative); Ketones,Urine Negative (Negative); Leukocyte Esterase,Urine Moderate (Negative); Nitrite,Urine Negative (Negative); Protein,Urine Negative (Negative); Specific Gravity,Urine 1.017 (1.001-1.035); Squamous Epithelial Cell,Urine 2 /hpf (0-4); Urobilinogen,Urine <2.0 mg/dL (<2.0); WBC,Urine 31 /hpf (0-5)
[2019-02-17] MEDS ORDERED: FAMOTIDINE 20 MG/2 ML VIAL IV STA (00:14)
--- NOTE | 2019-02-17 00:29 | CT ---
EXAM: CT Abdomen and Pelvis Without Intravenous Contrast CLINICAL HISTORY: ITS.REASON CT Reason: abdominal pain TECHNIQUE: Axial computed tomography images of the abdomen and pelvis without intravenous contrast. CTDI is 11.7 mGy and DLP is 643.2 mGy-cm. This CT exam was performed using one or more of the following dose reduction techniques: automated exposure control, adjustment of the mA and/or kV according to patient size, and/or use of iterative reconstruction technique. COMPARISON: CT abdomen/pelvis on 12/22/2018 FINDINGS: Evaluation of solid organs somewhat limited without IV contrast. Liver: No focal lesion. Spleen: No focal lesion. Gallbladder: Prior cholecystectomy. Pancreas: No acute inflammation. No mass. Adrenal glands: No mass. Kidneys: Possible punctate nonobstructing left renal stones. No hydronephrosis or ureteral stone. No mass. Bowel: Normal appendix. No bowel obstruction or inflammation. Urinary bladder: Decompressed bladder which limits evaluation. Reproductive organs: Tubal ligation clips in the pelvis. Muscles: No mass. Subcutaneous tissues: Injection granulomas in the right gluteal soft tissues. Peritoneal space: No free fluid. Lymph nodes: No lymphadenopathy. Vessels: No aneurysm. Bones: Normal. No acute fracture or bony lesion. Lung bases: Normal. Other: Small hiatal hernia. IMPRESSION: No acute abnormality in the abdomen or pelvis.
[2019-02-17] MEDS ORDERED: ACET/COD 300 MG/30 MG STARTER PACK 6 TAB BTL PO STA (00:34)
[2019-02-17] MEDS ORDERED: cefTRIAXone IN SWFI 1,000 MG/10 ML SYRINGE IVP STA (00:34)
[2019-02-17 01:26] VITALS: BP 127/71; PULSE 70; TEMP 98.3
== END 2019-02-17 01:34 | disposition home or self-care (01) ==
LOC: EC 21:19
DX: N39.0 Urinary tract infection, site not specified (principal); F41.9 Anxiety disorder, unspecified; F32.9 Major depressive disorder, single episode, unspecified; K21.9 Gastro-esophageal reflux disease without esophagitis; Z79.899 Other long term (current) drug therapy; Z88.0 Allergy status to penicillin; Z88.1 Allergy status to other antibiotic agents; Z88.2 Allergy status to sulfonamides; Z91.09 Other allergy status, other than to drugs and biological substances; Z91.048 Other nonmedicinal substance allergy status; Z90.49 Acquired absence of other specified parts of digestive tract; Z98.51 Tubal ligation status
CPT/HCPCS: 99284; 96374; 96375 ×2; 96361 ×2; 36415; 80053; 82150; 83605; 83690; 85025; 87086; 74176; J2405; 81001

== ENCOUNTER 2019-02-23 18:08 | Emergency (ER) | payer OTHER ==
[2019-02-23 18:31] VITALS: RESP 18
[2019-02-23] MEDS ORDERED: SODIUM CHLORIDE 0.9% 500 ML 500 ML IV ONE (18:55)
[2019-02-23] MEDS ORDERED: CIPROFLOXACIN HCL 250 MG TAB PO STA (19:13)
[2019-02-23] MEDS ORDERED: KETOROLAC 30 MG/ML 1 ML VIAL IVP STA (19:13)
[2019-02-23 19:37] LABS: Basophils % (A) 0 %; Eosinophils % (A) 0 %; HGB 11.6 gm/dL (11.4-16.0); Lymphocytes # (A) 1.7 k/uL (1.0-4.8); Lymphocytes % (A) 27 %; MCH 29.8 pg (25.0-35.0); MCV 87.8 fL (80.0-100.0); Mean Platelet Volume 7.5; Monocytes # (A) 0.4 k/uL (0-1.0); Monocytes % (A) 6 %; Neutrophils # (A) 4.1 k/uL (1.3-7.7); Neutrophils % (A) 65 %; Platelet Count 215 k/uL (150-450); RBC 3.87 m/uL (3.80-5.40); RDW 15.4 % (11.5-15.5); WBC 6.3 k/uL (3.8-10.6)
[2019-02-23 19:38] LABS: Appearance,Urine Clear (Clear); Bilirubin,Urine Negative (Negative); Blood,Urine Negative (Negative); Color,Urine Yellow; Glucose,Urine (UA) Negative (Negative); Ketones,Urine Negative (Negative); Leukocyte Esterase,Urine Trace (Negative); Mucus,Urine Rare /hpf; Nitrite,Urine Negative (Negative); PH, Urine 6.5 (5.0-8.0); Protein,Urine Negative (Negative); RBC,Urine 1 /hpf (0-5); Specific Gravity,Urine 1.023 (1.001-1.035); Squamous Epithelial Cell,Urine 1 /hpf (0-4); Urobilinogen,Urine <2.0 mg/dL (<2.0); WBC,Urine 1 /hpf (0-5)
[2019-02-23 19:41] LABS: ALT 17 U/L (9-52); AST 23 U/L (14-36); African American GFR (CKD) >90 (>60 ml/min/1.73 sqM); Albumin 4.2 g/dL (3.5-5.0); Alkaline Phosphatase 84 U/L (38-126); Amylase 47 U/L (30-110); Anion Gap 8 mmol/L; Blood Urea Nitrogen 12 mg/dL (7-17); Calcium 9.6 mg/dL (8.4-10.2); Carbon Dioxide 27 mmol/L (22-30); Chloride 104 mmol/L (98-107); Glucose 102 mg/dL (74-99); Potassium 3.9 mmol/L (3.5-5.1); Sodium 139 mmol/L (137-145); Total Bilirubin 0.9 mg/dL (0.2-1.3); Total Protein 7.2 g/dL (6.3-8.2)
--- NOTE | 2019-02-23 20:13 | US ---
EXAMINATION TYPE: US transvaginal DATE OF EXAM: 02/23/2019 COMPARISON: CT, US 09/11/2018 CLINICAL HISTORY: Pain. Pelvic pain x 17 days. LMP unknown. 2 laparoscopies. 3 C-Sections. Tubal Liga tion. Endometriosis, PCOS. . TECHNIQUE: Transvaginal (TV). Date of LMP: Unknown EXAM MEASUREMENTS: Uterus: 9.3 x 5.8 x 4.0 cm Endometrial Stripe: 0.86 cm Right Ovary: 3.6 x 2.5 x 2.6 cm Left Ovary: 3.2 x 2.1 x 1.8 cm 1. Uterus: Anteverted Minimal anechoic areas seen in cervix area. #1 c/w simple fluid measurin .5 x 0.8 x 0.3 cm. #2 c/w fluid measurin.6 x 0.5 x 0.3 cm. 2. Endometrium: appears wnl 3. Right Ovary: Anechoic focus seen measurin.9 x 1.7 x 2.0 cm. 4. Left Ovary: multiple subcentimeter anechoic areas seen Spectral, color and waveform doppler imaging shows good arterial and venous flow within the ovaries ; there is no evidence for ovarian torsion. 5. Bilateral Adnexa: appear wnl 6. Posterior cul-de-sac: minimal fluid seen IMPRESSION: No acute process.
[2019-02-23] MEDS ORDERED: ONDANSETRON 4 MG/2 ML VIAL IVP STA (20:15)
[2019-02-23] MEDS ORDERED: HYDROmorphone 0.5 MG/0.5 ML SYRINGE IVP STA (20:24)
--- NOTE | 2019-02-23 20:49 | ED ---
Abdominal Pain HPI - General Chief Complaint: Abdominal Pain Stated Complaint: Stomach pain Time Seen by Provider: 02/23/19 18:39 Source: patient Mode of arrival: ambulatory Limitations: no limitations - History of Present Illness Initial Comments: 28-year-old female presenting for abdominal pain times a week. Patient states she has had abdominal pain for one week she states she does have a history of PCO S and endometriosis. She states this feels like an episode of her PCO S however she has not had pain controlled her Nancy at home. Patient states she was diagnosed a UTI last week. She is not sure if this is associated. She states she has been taking her Macrobid as directed. Patient denies any fevers. She states she has had some low back pain. Denies vaginal discharge denies denies any heavy vaginal bleeding. Remaining review of systems negative. Patient denies any vomiting diarrhea chest pain shortness of breath. Patient appears well upon arrival no signs of acute distress. (-) CT scan 1 week prior. - Related Data Home Medications Medication Instructions Recorded Confirmed Sertraline HCl [Zoloft] 100 mg PO HS 12/24/18 02/23/19 busPIRone HCl [Buspar] 5 mg PO BID PRN 12/24/18 02/23/19 Ranitidine HCl [Zantac] 150 mg PO BID 12/31/18 02/23/19 Hydrocodone/Acetaminophen [Lorcet 1 tab PO DAILY PRN 01/12/19 02/23/19 5-325 mg Tablet] busPIRone HCl [Buspar] 5 mg PO HS 01/12/19 02/23/19 traMADol HCL [Ultram] 50 mg PO QID PRN 02/16/19 02/23/19 Naproxen Sodium [Aleve] 660 mg PO ONCE PRN 02/23/19 02/23/19 Ondansetron [Zofran ODT] 4 mg PO BID PRN 02/23/19 02/23/19 Previous Rx's Medication Instructions Recorded Nitrofurantoin Monohyd/M-Cryst 100 mg PO Q12HR #14 cap 02/17/19 [Macrobid] Allergies Allergy/AdvReac Type Severity Reaction Status Date / Time adhesive tape Allergy Rash/Hives Verified 02/23/19 19:03 aloe vera Allergy Rash/Hives Verified 02/23/19 19:03 azithromycin Allergy Rash/Hives Verified 02/23/19 19:03 cephalexin Allergy Rash/Hives Verified 02/23/19 19:03 metronidazole [From Flagyl] Allergy Rash/Hives Verified 02/23/19 19:03 Penicillins Allergy Rash/Hives Verified 02/23/19 19:03 sulfamethoxazole Allergy Rash/Hives Verified 02/23/19 19:03 [From Bactrim] trimethoprim [From Bactrim] Allergy Rash/Hives Verified 02/23/19 19:03 Review of Systems ROS Statement: Those systems with pertinent positive or pertinent negative responses have been documented in the HPI. ROS Other: All systems not noted in ROS Statement are negative. Past Medical History Past Medical History: GERD/Reflux Additional Past Medical History / Comment(s): Recent abdominal pain, diarrhea and vomiting. Endometriosis, polycystic ovarian syndrome. History of Any Multi-Drug Resistant Organisms: None Reported Past Surgical History: Section, Cholecystectomy, Tubal Ligation Additional Past Surgical History / Comment(s): Laparoscopy X2, Section X3. Past Anesthesia/Blood Transfusion Reactions: No Reported Reaction Past Psychological History: Anxiety, Depression Smoking Status: Never smoker Past Alcohol Use History: Rare Past Drug Use History: None Reported - Past Family History Mother Family Medical History: Hyperlipidemia Additional Family Medical History / Comment(s): Depression and anxiety. General Exam - General Exam Comments Initial Comments: General: The patient is awake and alert, in no distress, and does not appear acutely ill. Eye: Pupils are equal, round and reactive to light, extra-ocular movements are intact. No nystagmus. There is normal conjunctiva bilaterally. No signs of icterus. Ears, nose, mouth and throat: There are moist mucous membranes and no oral lesions. Neck: The neck is supple, there is no tenderness or JVD. Cardiovascular: There is a regular rate and rhythm. No murmur, rub or gallop is appreciated. Respiratory: Lungs are clear to auscultation, respirations are non-labored, breath sounds are equal. No wheezes, stridor, rales, or rhonchi. Gastrointestinal: Soft, non-distended, mild diffuse tenderness to the lower pelvic region of the abdomen without masses or organomegaly noted. There is no rebound or guarding present. No CVA tenderness. Bowel sounds are unremarkable. Musculoskeletal: Normal ROM, no tenderness. Strength 5/5. Sensation intact. Pulses equal bilaterally 2+. Neurological: A&O x 3. CN II-XII intact, There are no obvious motor or sensory deficits. Coordination appears grossly intact. Speech is normal. Skin: Skin is warm and dry and no rashes or lesions are noted. Psychiatric: Cooperative, appropriate mood & affect, normal judgment. Limitations: no limitations Course Vital Signs 02/23/19 02/23/19 18:28 21:26 Temperature 98.2 F 98 F Pulse Rate 102 H 87 Respiratory 18 18 Rate Blood Pressure 129/80 133/78 O2 Sat by Pulse 98 98 Oximetry Medical Decision Making - Medical Decision Making 28-year-old female presenting for abdominal pain history of piece US and endometriosis. Patient had negative CT last week. She was being treated for urinary tract infection. Laboratory studies today revealed a leukocytosis. Urinalysis unremarkable. Patient appears well afebrile. Ultrasound of the pelvic region revealed no acute abnormalities. No cysts, no Acute process to contribute for patient's symptoms. Patient states that her pain is chronic. Patient requesting Dilaudid by name. 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 Patient states she is ready for discharge. Patient discharged appearing well. - Lab Data Result diagrams: 02/23/19 19:25 02/23/19 19:25 Lab Results 02/23/19 02/23/19 02/23/19 Range/Units 19:25 19:25 19:25 WBC 6.3 (3.8-10.6) k/uL RBC 3.87 (3.80-5.40) m/uL Hgb 11.6 (11.4-16.0) gm/dL Hct 34.0 (34.0-46.0) % MCV 87.8 (80.0-100.0) fL MCH 29.8 (25.0-35.0) pg MCHC 34.0 (31.0-37.0) g/dL RDW 15.4 (11.5-15.5) % Plt Count 215 (150-450) k/uL Neutrophils % 65 % Lymphocytes % 27 % Monocytes % 6 % Eosinophils % 0 % Basophils % 0 % Neutrophils # 4.1 (1.3-7.7) k/uL Lymphocytes # 1.7 (1.0-4.8) k/uL Monocytes # 0.4 (0-1.0) k/uL Eosinophils # 0.0 (0-0.7) k/uL Basophils # 0.0 (0-0.2) k/uL Sodium 139 (137-145) mmol/L Potassium 3.9 (3.5-5.1) mmol/L Chloride 104 (98-107) mmol/L Carbon Dioxide 27 (22-30) mmol/L Anion Gap 8 mmol/L BUN 12 (7-17) mg/dL Creatinine 0.70 (0.52-1.04) mg/dL Est GFR (CKD-EPI)AfAm >90 (>60 ml/min/1.73 sqM) Est GFR (CKD-EPI)NonAf >90 (>60 ml/min/1.73 sqM) Glucose 102 H (74-99) mg/dL Calcium 9.6 (8.4-10.2) mg/dL Total Bilirubin 0.9 (0.2-1.3) mg/dL AST 23 (14-36) U/L ALT 17 (9-52) U/L Alkaline Phosphatase 84 (38-126) U/L Total Protein 7.2 (6.3-8.2) g/dL Albumin 4.2 (3.5-5.0) g/dL Amylase 47 (30-110) U/L Lipase 30 (23-300) U/L Urine Color Urine Appearance (Clear) Urine pH (5.0-8.0) Ur Specific [place] (1.001-1.035) Urine Protein (Negative) Urine Glucose (UA) (Negative) Urine Ketones (Negative) Urine Blood (Negative) Urine Nitrite (Negative) Urine Bilirubin (Negative) Urine Urobilinogen (<2.0) mg/dL Ur Leukocyte Esterase (Negative) Urine RBC (0-5) /hpf Urine WBC (0-5) /hpf Ur Squamous Epith Cells (0-4) /hpf Urine Mucus (None) /hpf Urine HCG, Qual Not Detected (Not Detectd) 02/23/19 Range/Units 19:25 WBC (3.8-10.6) k/uL RBC (3.80-5.40) m/uL Hgb (11.4-16.0) gm/dL Hct (34.0-46.0) % MCV (80.0-100.0) fL MCH (25.0-35.0) pg MCHC (31.0-37.0) g/dL RDW (11.5-15.5) % Plt Count (150-450) k/uL Neutrophils % % Lymphocytes % % Monocytes % % Eosinophils % % Basophils % % Neutrophils # (1.3-7.7) k/uL Lymphocytes # (1.0-4.8) k/uL Monocytes # (0-1.0) k/uL Eosinophils # (0-0.7) k/uL Basophils # (0-0.2) k/uL Sodium (137-145) mmol/L Potassium (3.5-5.1) mmol/L Chloride (98-107) mmol/L Carbon Dioxide (22-30) mmol/L Anion Gap mmol/L BUN (7-17) mg/dL Creatinine (0.52-1.04) mg/dL Est GFR (CKD-EPI)AfAm (>60 ml/min/1.73 sqM) Est GFR (CKD-EPI)NonAf (>60 ml/min/1.73 sqM) Glucose (74-99) mg/dL Calcium (8.4-10.2) mg/dL Total Bilirubin (0.2-1.3) mg/dL AST (14-36) U/L ALT (9-52) U/L Alkaline Phosphatase (38-126) U/L Total Protein (6.3-8.2) g/dL Albumin (3.5-5.0) g/dL Amylase (30-110) U/L Lipase (23-300) U/L Urine Color Yellow Urine Appearance Clear (Clear) Urine pH 6.5 (5.0-8.0) Ur Specific [place] 1.023 (1.001-1.035) Urine Protein Negative (Negative) Urine Glucose (UA) Negative (Negative) Urine Ketones Negative (Negative) Urine Blood Negative (Negative) Urine Nitrite Negative (Negative) Urine Bilirubin Negative (Negative) Urine Urobilinogen <2.0 (<2.0) mg/dL Ur Leukocyte Esterase Trace H (Negative) Urine RBC 1 (0-5) /hpf Urine WBC 1 (0-5) /hpf Ur Squamous Epith Cells 1 (0-4) /hpf Urine Mucus Rare H (None) /hpf Urine HCG, Qual (Not Detectd) Disposition Clinical Impression: Pelvic pain, History of PCOS, Ovarian cyst Disposition: HOME SELF-CARE Condition: Good Instructions (If sedation given, give patient instructions): Pelvic Pain in Women (ED) Additional Instructions: Please use medication as discussed. Please follow-up with family your OBGYN as scheduled 02/26/19 Please return to emergency room if the symptoms increase or worsen or for any other concerns. Is patient prescribed a controlled substance at d/c from ED?: No Referrals: Samuel Daniels MD [Primary Care Provider] - 1-2 days Time of Disposition: 20:49
[2019-02-23 21:27] VITALS: BP 133/78; PULSE 87; TEMP 98
== END 2019-02-23 21:26 | disposition home or self-care (01) ==
LOC: EC 18:08
DX: N83.209 Unspecified ovarian cyst, unspecified side (principal); K21.9 Gastro-esophageal reflux disease without esophagitis; F41.9 Anxiety disorder, unspecified; F32.9 Major depressive disorder, single episode, unspecified; Z87.42 Personal history of other diseases of the female genital tract; Z90.49 Acquired absence of other specified parts of digestive tract; Z98.51 Tubal ligation status; Z79.899 Other long term (current) drug therapy; Z91.048 Other nonmedicinal substance allergy status; Z88.1 Allergy status to other antibiotic agents; Z88.0 Allergy status to penicillin; Z88.2 Allergy status to sulfonamides
CPT/HCPCS: 36415; 80053; 82150; 83690; 85025; 81001; 81025; 93975; 76830; 99284; 96374; 96375 ×2; 96361; J2405; J1885; J1170

== ENCOUNTER 2019-04-08 10:19 | Emergency (ER) | payer OTHER ==
[2019-04-08 11:34] LABS: Appearance,Urine Cloudy (Clear); Bacteria,Urine Many /hpf; Bilirubin,Urine Negative (Negative); Blood,Urine Large (Negative); Color,Urine Light Red; Glucose,Urine (UA) Negative (Negative); Ketones,Urine Negative (Negative); Leukocyte Esterase,Urine Moderate (Negative); Mucus,Urine Many /hpf; Nitrite,Urine Positive (Negative); Protein,Urine 1+ (Negative); RBC,Urine >182 /hpf (0-5); Specific Gravity,Urine 1.022 (1.001-1.035); Squamous Epithelial Cell,Urine 3 /hpf (0-4); Urobilinogen,Urine <2.0 mg/dL (<2.0)
[2019-04-08] MEDS ORDERED: SODIUM CHLORIDE 0.9% 1,000 ML IV STA (11:45)
[2019-04-08] MEDS ORDERED: ONDANSETRON 4 MG/2 ML VIAL IVP STA (11:45)
--- NOTE | 2019-04-08 11:47 | ED ---
General Adult HPI - General Chief complaint: Abdominal Pain Stated complaint: Abd Pain Time Seen by Provider: 04/08/19 10:35 Source: patient, EMS Mode of arrival: ambulatory Limitations: no limitations - History of Present Illness Initial comments: Dictation was produced using [employer] dictation software. please excuse any grammatical, word or spelling errors. Chief Complaint: 20-year-old female past medical history of GERD polycystic ovarian disease presents with abdominal pain. History of Present Illness: States that her symptoms began yesterday. She states that her symptoms initially began as a headache. She describes a throbbing. Patient has history of headache. Denies any vision changes or numbness and paresthesias to extremities. Patient is not this was symptoms of anxiety so she took a anxiety medication. She will call her headache improved however she felt like the pain traveled not to her epigastric area. Denies any vomiting however does have some nausea. No diarrhea. The ROS documented in this emergency department record has been reviewed and confirmed by me. Those systems with pertinent positive or negative responses have been documented in the HPI. All other systems are other negative and/or noncontributory. PHYSICAL EXAM: General Impression: Alert and oriented x3, not in acute distress HEENT: Normocephalic atraumatic, extra-ocular movements intact, pupils equal and reactive to light bilaterally, mucous membranes moist. Cardiovascular: Heart regular rate and rhythm, S1&S2 audible, no murmurs, rubs or gallops Chest: Lungs clear to auscultation bilaterally, no rhonchi, no wheeze, no rales Abdomen: Bowel sounds present, abdomen soft, non-tender, non-distended, no organomegaly Musculoskeletal: Pulses present and equal in all extremities, no peripheral edema Motor: no focal deficits noted Neurological: CN II-XII grossly intact, no focal motor or sensory deficits noted Skin: Intact with no visualized rashes Psych: Normal affect and mood ED course: 28-year-old female presents with abdominal pain. States that yesterday she had a headache. As upon arrival are within acceptable limits. Patient given headache cocktail. She stated that her symptoms are improved. She wanted her some other pain medication. Patient given some IV analgesia. Laboratory evaluation obtained. CBC, metabolic panel was obtained showing no acute processes. Urinalysis shows findings to suggest urinary tract infection. Patient has multiple ALLERGIES however has been successfully treated with Macrobid. Patient denies any flank pain at this time. Patient prescription for Macrobid. She is told to follow-up with primary care physician. Micro-biology reports from previous urines positive for E. coli with patient sensitivity. Return parameters discussed. Patient with for discharge. EKG interpretation: Ventricular rate 99, sinus bradycardia, MI interval 122, care is 80, QTc 433. No MI prolongation, no QTC prolongation, no ST or T-wave changes noted. Overall, this EKG is unremarkable - Related Data Home Medications Medication Instructions Recorded Confirmed Sertraline HCl [Zoloft] 100 mg PO HS 12/24/18 04/08/19 Ranitidine HCl [Zantac] 150 mg PO BID 12/31/18 04/08/19 Hydrocodone/Acetaminophen [Lorcet 1 tab PO DAILY PRN 01/12/19 04/08/19 5-325 mg Tablet] busPIRone HCl [Buspar] 10 mg PO TID PRN 01/12/19 04/08/19 traMADol HCL [Ultram] 50 mg PO QID PRN 02/16/19 04/08/19 Ondansetron [Zofran ODT] 4 mg PO BID PRN 02/23/19 04/08/19 Previous Rx's Medication Instructions Recorded Nitrofurantoin Monohyd/M-Cryst 100 mg PO Q12HR 7 Days #14 cap 04/08/19 [Macrobid] Allergies Allergy/AdvReac Type Severity Reaction Status Date / Time adhesive tape Allergy Rash/Hives Verified 04/08/19 10:40 aloe vera Allergy Rash/Hives Verified 04/08/19 10:40 azithromycin Allergy Rash/Hives Verified 04/08/19 10:40 cephalexin Allergy Rash/Hives Verified 04/08/19 10:40 metronidazole [From Flagyl] Allergy Rash/Hives Verified 04/08/19 10:40 Penicillins Allergy Rash/Hives Verified 04/08/19 10:40 sulfamethoxazole Allergy Rash/Hives Verified 04/08/19 10:40 [From Bactrim] trimethoprim [From Bactrim] Allergy Rash/Hives Verified 04/08/19 10:40 Review of Systems ROS Statement: Those systems with pertinent positive or pertinent negative responses have been documented in the HPI. ROS Other: All systems not noted in ROS Statement are negative. Past Medical History Past Medical History: GERD/Reflux Additional Past Medical History / Comment(s): Recent abdominal pain, diarrhea and vomiting. Endometriosis, polycystic ovarian syndrome. History of Any Multi-Drug Resistant Organisms: None Reported Past Surgical History: Section, Cholecystectomy, Tubal Ligation Additional Past Surgical History / Comment(s): Laparoscopy X2, Section X3. Past Anesthesia/Blood Transfusion Reactions: No Reported Reaction Past Psychological History: Anxiety, Depression Smoking Status: Never smoker Past Alcohol Use History: Rare Past Drug Use History: None Reported - Past Family History Mother Family Medical History: Hyperlipidemia Additional Family Medical History / Comment(s): Depression and anxiety. General Exam Limitations: no limitations Course Vital Signs 04/08/19 04/08/19 10:28 12:29 Temperature 98.3 F 97.9 F Pulse Rate 77 63 Respiratory 18 18 Rate Blood Pressure 114/70 107/62 O2 Sat by Pulse 98 99 Oximetry Medical Decision Making - Lab Data Result diagrams: 04/08/19 12:14 04/08/19 12:14 Lab Results 04/08/19 04/08/19 04/08/19 Range/Units 11:00 11:00 12:14 WBC 5.2 (3.8-10.6) k/uL RBC 3.83 (3.80-5.40) m/uL Hgb 11.5 (11.4-16.0) gm/dL Hct 34.2 (34.0-46.0) % MCV 89.2 (80.0-100.0) fL MCH 30.0 (25.0-35.0) pg MCHC 33.6 (31.0-37.0) g/dL RDW 14.6 (11.5-15.5) % Plt Count 195 (150-450) k/uL Neutrophils % 67 % Lymphocytes % 25 % Monocytes % 6 % Eosinophils % 1 % Basophils % 0 % Neutrophils # 3.5 (1.3-7.7) k/uL Lymphocytes # 1.3 (1.0-4.8) k/uL Monocytes # 0.3 (0-1.0) k/uL Eosinophils # 0.0 (0-0.7) k/uL Basophils # 0.0 (0-0.2) k/uL Sodium (137-145) mmol/L Potassium (3.5-5.1) mmol/L Chloride (98-107) mmol/L Carbon Dioxide (22-30) mmol/L Anion Gap mmol/L BUN (7-17) mg/dL Creatinine (0.52-1.04) mg/dL Est GFR (CKD-EPI)AfAm (>60 ml/min/1.73 sqM) Est GFR (CKD-EPI)NonAf (>60 ml/min/1.73 sqM) Glucose (74-99) mg/dL Calcium (8.4-10.2) mg/dL Total Bilirubin (0.2-1.3) mg/dL AST (14-36) U/L ALT (9-52) U/L Alkaline Phosphatase (38-126) U/L Total Protein (6.3-8.2) g/dL Albumin (3.5-5.0) g/dL Lipase (23-300) U/L Urine Color Light Red Urine Appearance Cloudy H (Clear) Urine pH 6.0 (5.0-8.0) Ur Specific [place] 1.022 (1.001-1.035) Urine Protein 1+ H (Negative) Urine Glucose (UA) Negative (Negative) Urine Ketones Negative (Negative) Urine Blood Large H (Negative) Urine Nitrite Positive H (Negative) Urine Bilirubin Negative (Negative) Urine Urobilinogen <2.0 (<2.0) mg/dL Ur Leukocyte Esterase Moderate H (Negative) Urine RBC >182 H (0-5) /hpf Urine WBC 147 H (0-5) /hpf Urine WBC Clumps Occasional H (None) /hpf Ur Squamous Epith Cells 3 (0-4) /hpf Urine Bacteria Many H (None) /hpf Urine Mucus Many H (None) /hpf Urine HCG, Qual Not Detected (Not Detectd) 04/08/19 Range/Units 12:14 WBC (3.8-10.6) k/uL RBC (3.80-5.40) m/uL Hgb (11.4-16.0) gm/dL Hct (34.0-46.0) % MCV (80.0-100.0) fL MCH (25.0-35.0) pg MCHC (31.0-37.0) g/dL RDW (11.5-15.5) % Plt Count (150-450) k/uL Neutrophils % % Lymphocytes % % Monocytes % % Eosinophils % % Basophils % % Neutrophils # (1.3-7.7) k/uL Lymphocytes # (1.0-4.8) k/uL Monocytes # (0-1.0) k/uL Eosinophils # (0-0.7) k/uL Basophils # (0-0.2) k/uL Sodium 141 (137-145) mmol/L Potassium 4.4 (3.5-5.1) mmol/L Chloride 105 (98-107) mmol/L Carbon Dioxide 25 (22-30) mmol/L Anion Gap 11 mmol/L BUN 13 (7-17) mg/dL Creatinine 0.77 (0.52-1.04) mg/dL Est GFR (CKD-EPI)AfAm >90 (>60 ml/min/1.73 sqM) Est GFR (CKD-EPI)NonAf >90 (>60 ml/min/1.73 sqM) Glucose 87 (74-99) mg/dL Calcium 9.2 (8.4-10.2) mg/dL Total Bilirubin 1.0 (0.2-1.3) mg/dL AST 30 (14-36) U/L ALT 21 (9-52) U/L Alkaline Phosphatase 64 (38-126) U/L Total Protein 7.3 (6.3-8.2) g/dL Albumin 4.3 (3.5-5.0) g/dL Lipase 32 (23-300) U/L Urine Color Urine Appearance (Clear) Urine pH (5.0-8.0) Ur Specific [place] (1.001-1.035) Urine Protein (Negative) Urine Glucose (UA) (Negative) Urine Ketones (Negative) Urine Blood (Negative) Urine Nitrite (Negative) Urine Bilirubin (Negative) Urine Urobilinogen (<2.0) mg/dL Ur Leukocyte Esterase (Negative) Urine RBC (0-5) /hpf Urine WBC (0-5) /hpf Urine WBC Clumps (None) /hpf Ur Squamous Epith Cells (0-4) /hpf Urine Bacteria (None) /hpf Urine Mucus (None) /hpf Urine HCG, Qual (Not Detectd) Disposition Clinical Impression: UTI (urinary tract infection), Epigastric pain Disposition: HOME SELF-CARE Condition: Good Instructions (If sedation given, give patient instructions): Urinary Tract Infection in Women (ED) Prescriptions: Nitrofurantoin Monohyd/M-Cryst [Macrobid] 100 mg PO Q12HR 7 Days #14 cap Is patient prescribed a controlled substance at d/c from ED?: No Referrals: Samuel Daniels MD [Primary Care Provider] - 1-2 days Time of Disposition: 13:29
[2019-04-08] MEDS ORDERED: KETOROLAC 30 MG/ML 1 ML VIAL IVP SCH (12:00)
[2019-04-08 12:52] LABS: Basophils % (A) 0 %; Eosinophils % (A) 1 %; HCT 34.2 % (34.0-46.0); HGB 11.5 gm/dL (11.4-16.0); Lymphocytes # (A) 1.3 k/uL (1.0-4.8); Lymphocytes % (A) 25 %; MCHC 33.6 g/dL (31.0-37.0); MCV 89.2 fL (80.0-100.0); Mean Platelet Volume 7.4; Monocytes # (A) 0.3 k/uL (0-1.0); Monocytes % (A) 6 %; Neutrophils # (A) 3.5 k/uL (1.3-7.7); Neutrophils % (A) 67 %; Platelet Count 195 k/uL (150-450); RBC 3.83 m/uL (3.80-5.40); RDW 14.6 % (11.5-15.5); WBC 5.2 k/uL (3.8-10.6)
[2019-04-08 13:12] LABS: African American GFR (CKD) >90 (>60 ml/min/1.73 sqM); Albumin 4.3 g/dL (3.5-5.0); Anion Gap 11 mmol/L; Blood Urea Nitrogen 13 mg/dL (7-17); Calcium 9.2 mg/dL (8.4-10.2); Carbon Dioxide 25 mmol/L (22-30); Chloride 105 mmol/L (98-107); Glucose 87 mg/dL (74-99); Sodium 141 mmol/L (137-145); Total Protein 7.3 g/dL (6.3-8.2)
[2019-04-08 13:14] LABS: ALT 21 U/L (9-52); AST 30 U/L (14-36); Alkaline Phosphatase 64 U/L (38-126); Potassium 4.4 mmol/L (3.5-5.1)
[2019-04-08] MEDS ORDERED: HYDROmorphone 0.5 MG/0.5 ML SYRINGE IVP STA (13:26)
[2019-04-08 13:45] VITALS: BP 110/56; PULSE 76; RESP 20; TEMP 98.3
== END 2019-04-08 13:45 | disposition home or self-care (01) ==
LOC: EC 10:19
DX: N39.0 Urinary tract infection, site not specified (principal); Z32.02 Encounter for pregnancy test, result negative; K21.9 Gastro-esophageal reflux disease without esophagitis; F41.9 Anxiety disorder, unspecified; F32.9 Major depressive disorder, single episode, unspecified; Z79.899 Other long term (current) drug therapy; Z88.0 Allergy status to penicillin; Z88.1 Allergy status to other antibiotic agents; Z88.2 Allergy status to sulfonamides; Z91.048 Other nonmedicinal substance allergy status; Z90.49 Acquired absence of other specified parts of digestive tract
CPT/HCPCS: 99284; 96374; 96375 ×2; 96361 ×2; 36415; 93005; 80053; 83690; 85025; 81001; 81025; 87086; J2405; J1885; J1170

== ENCOUNTER 2019-04-09 15:36 | Inpatient (IN) | payer OTHER ==
[2019-04-09] MEDS ORDERED: SODIUM CHLORIDE 0.9% 1,000 ML IV STA (17:52)
[2019-04-09] MEDS ORDERED: ONDANSETRON 4 MG/2 ML VIAL IVP STA (17:53)
[2019-04-09] MEDS ORDERED: diphenhydrAMINE 50 MG/ML 1 ML VIAL IVP STA (17:53)
[2019-04-09] MEDS ORDERED: KETOROLAC 30 MG/ML 1 ML VIAL IVP STA (17:53)
--- NOTE | 2019-04-09 17:54 | ED ---
General Adult HPI - General Chief complaint: Headache Stated complaint: headache, diarrhea Time Seen by Provider: 04/09/19 17:33 Source: patient Mode of arrival: ambulatory Limitations: no limitations - History of Present Illness Initial comments: Dictation was produced using [employer] dictation software. please excuse any grammatical, word or spelling errors. Chief Complaint: 28 yo female presents with persistent headache. History of Present Illness: 28-year-old female she was evaluated by myself yesterday for a similar complaint. She states she is having a persistent temporal headache. She does complain of some mild vision changes. Patient states that she is photophobic. Denies any neuro deficits. Patient has had worsening diarrhea as well. Patient was seen here yesterday for the same complaint. She states her symptoms are worse than they were yesterday. Patient does complain of some mild vision changes. She states he normally wears glasses. She states that she had an difficulties with near vision. Denies any neurologic deficits. The ROS documented in this emergency department record has been reviewed and confirmed by me. Those systems with pertinent positive or negative responses have been documented in the HPI. All other systems are other negative and/or noncontributory. PHYSICAL EXAM: General Impression: Alert and oriented x3, not in acute distress HEENT: Normocephalic atraumatic, extra-ocular movements intact, pupils equal and reactive to light bilaterally, mucous membranes moist. Cardiovascular: Heart regular rate and rhythm, S1&S2 audible, no murmurs, rubs or gallops Chest: Lungs clear to auscultation bilaterally, no rhonchi, no wheeze, no rales Abdomen: Bowel sounds present, abdomen soft, non-tender, non-distended, no organomegaly Musculoskeletal: Pulses present and equal in all extremities, no peripheral edema Motor: no focal deficits noted Neurological: CN II-XII grossly intact, no focal motor or sensory deficits noted Skin: Intact with no visualized rashes Psych: Normal affect and mood ED course: 28-year-old female presents with persistent headache. Signs upon arrival are within acceptable limits.Lumbar puncture was attempted after patient fell to consent. Lumbar puncture was unsuccessful. Lower puncture was attempted to evaluate for possible pseudotumor cerebri. We will admit patient to medicine with consultation to neurology. She given IV analgesia for headache.Laboratory evaluation obtained found to be unremarkable. Computed tomography scan of the head was obtained showing no acute processes. Patient given analgesia. She was reevaluated with improved symptoms however persistent headache. - Related Data Home Medications Medication Instructions Recorded Confirmed Sertraline HCl [Zoloft] 100 mg PO HS 12/24/18 04/09/19 Ranitidine HCl [Zantac] 150 mg PO BID 12/31/18 04/09/19 Hydrocodone/Acetaminophen [Lorcet 1 tab PO DAILY PRN 01/12/19 04/09/19 5-325 mg Tablet] busPIRone HCl [Buspar] 10 mg PO TID PRN 01/12/19 04/09/19 traMADol HCL [Ultram] 50 mg PO QID PRN 02/16/19 04/09/19 Ondansetron [Zofran ODT] 4 mg PO BID PRN 02/23/19 04/09/19 Previous Rx's Medication Instructions Recorded Nitrofurantoin Monohyd/M-Cryst 100 mg PO Q12HR 7 Days #14 cap 04/08/19 [Macrobid] Allergies Allergy/AdvReac Type Severity Reaction Status Date / Time adhesive tape Allergy Rash/Hives Verified 04/09/19 16:52 aloe vera Allergy Rash/Hives Verified 04/09/19 16:52 azithromycin Allergy Rash/Hives Verified 04/09/19 16:52 cephalexin Allergy Rash/Hives Verified 04/09/19 16:52 metronidazole [From Flagyl] Allergy Rash/Hives Verified 04/09/19 16:52 Penicillins Allergy Rash/Hives Verified 04/09/19 16:52 sulfamethoxazole Allergy Rash/Hives Verified 04/09/19 16:52 [From Bactrim] trimethoprim [From Bactrim] Allergy Rash/Hives Verified 04/09/19 16:52 Review of Systems ROS Statement: Those systems with pertinent positive or pertinent negative responses have been documented in the HPI. ROS Other: All systems not noted in ROS Statement are negative. Past Medical History Past Medical History: GERD/Reflux Additional Past Medical History / Comment(s): Recent abdominal pain, diarrhea and vomiting. Endometriosis, polycystic ovarian syndrome. History of Any Multi-Drug Resistant Organisms: None Reported Past Surgical History: Section, Cholecystectomy, Tubal Ligation Additional Past Surgical History / Comment(s): Laparoscopy X2, Section X3. Past Anesthesia/Blood Transfusion Reactions: No Reported Reaction Past Psychological History: Anxiety, Depression Smoking Status: Never smoker Past Alcohol Use History: Rare Past Drug Use History: None Reported - Past Family History Mother Family Medical History: Hyperlipidemia Additional Family Medical History / Comment(s): Depression and anxiety. General Exam Limitations: no limitations Course Vital Signs 04/09/19 04/09/19 16:19 19:27 Temperature 98.2 F 98 F Pulse Rate 75 64 Respiratory 18 18 Rate Blood Pressure 125/84 122/63 O2 Sat by Pulse 100 99 Oximetry Medical Decision Making - Lab Data Result diagrams: 04/09/19 18:10 04/09/19 18:10 Lab Results 04/09/19 04/09/19 04/09/19 Range/Units 18:10 18:10 18:10 WBC 4.8 (3.8-10.6) k/uL RBC 3.86 (3.80-5.40) m/uL Hgb 11.3 L (11.4-16.0) gm/dL Hct 34.2 (34.0-46.0) % MCV 88.5 (80.0-100.0) fL MCH 29.4 (25.0-35.0) pg MCHC 33.2 (31.0-37.0) g/dL RDW 13.5 (11.5-15.5) % Plt Count 190 (150-450) k/uL Neutrophils % 67 % Lymphocytes % 26 % Monocytes % 4 % Eosinophils % 1 % Basophils % 1 % Neutrophils # 3.2 (1.3-7.7) k/uL Lymphocytes # 1.2 (1.0-4.8) k/uL Monocytes # 0.2 (0-1.0) k/uL Eosinophils # 0.1 (0-0.7) k/uL Basophils # 0.0 (0-0.2) k/uL PT (9.0-12.0) sec INR (<1.2) APTT (22.0-30.0) sec Sodium 140 (137-145) mmol/L Potassium 4.3 (3.5-5.1) mmol/L Chloride 106 (98-107) mmol/L Carbon Dioxide 26 (22-30) mmol/L Anion Gap 8 mmol/L BUN 11 (7-17) mg/dL Creatinine 0.71 (0.52-1.04) mg/dL Est GFR (CKD-EPI)AfAm >90 (>60 ml/min/1.73 sqM) Est GFR (CKD-EPI)NonAf >90 (>60 ml/min/1.73 sqM) Glucose 95 (74-99) mg/dL Calcium 9.6 (8.4-10.2) mg/dL Urine HCG, Qual Not Detected (Not Detectd) Blood Type Blood Type Recheck Bld Type Recheck Status Antibody Screen Spec Expiration Date 04/09/19 04/09/19 Range/Units 18:10 18:28 WBC (3.8-10.6) k/uL RBC (3.80-5.40) m/uL Hgb (11.4-16.0) gm/dL Hct (34.0-46.0) % MCV (80.0-100.0) fL MCH (25.0-35.0) pg MCHC (31.0-37.0) g/dL RDW (11.5-15.5) % Plt Count (150-450) k/uL Neutrophils % % Lymphocytes % % Monocytes % % Eosinophils % % Basophils % % Neutrophils # (1.3-7.7) k/uL Lymphocytes # (1.0-4.8) k/uL Monocytes # (0-1.0) k/uL Eosinophils # (0-0.7) k/uL Basophils # (0-0.2) k/uL PT 9.8 (9.0-12.0) sec INR 0.9 (<1.2) APTT 27.5 (22.0-30.0) sec Sodium (137-145) mmol/L Potassium (3.5-5.1) mmol/L Chloride (98-107) mmol/L Carbon Dioxide (22-30) mmol/L Anion Gap mmol/L BUN (7-17) mg/dL Creatinine (0.52-1.04) mg/dL Est GFR (CKD-EPI)AfAm (>60 ml/min/1.73 sqM) Est GFR (CKD-EPI)NonAf (>60 ml/min/1.73 sqM) Glucose (74-99) mg/dL Calcium (8.4-10.2) mg/dL Urine HCG, Qual (Not Detectd) Blood Type A Positive Blood Type Recheck A Pos Bld Type Recheck Status No Antibody Screen NEGATIVE Spec Expiration Date 04/12/20192327 Disposition Clinical Impression: Headache Disposition: ADMITTED IP TO THIS [facility] Condition: Fair Referrals: Samuel Daniels MD [Primary Care Provider] - 1-2 days Decision Time: 20:44
[2019-04-09 18:20] LABS: Basophils % (A) 1 %; Eosinophils # (A) 0.1 k/uL (0-0.7); Eosinophils % (A) 1 %; HCT 34.2 % (34.0-46.0); HGB 11.3 gm/dL (11.4-16.0); Lymphocytes # (A) 1.2 k/uL (1.0-4.8); Lymphocytes % (A) 26 %; MCH 29.4 pg (25.0-35.0); MCHC 33.2 g/dL (31.0-37.0); MCV 88.5 fL (80.0-100.0); Mean Platelet Volume 7.4; Monocytes # (A) 0.2 k/uL (0-1.0); Monocytes % (A) 4 %; Neutrophils # (A) 3.2 k/uL (1.3-7.7); Neutrophils % (A) 67 %; Platelet Count 190 k/uL (150-450); RBC 3.86 m/uL (3.80-5.40); RDW 13.5 % (11.5-15.5); WBC 4.8 k/uL (3.8-10.6)
[2019-04-09 18:32] LABS: African American GFR (CKD) >90 (>60 ml/min/1.73 sqM); Anion Gap 8 mmol/L; Blood Urea Nitrogen 11 mg/dL (7-17); Calcium 9.6 mg/dL (8.4-10.2); Carbon Dioxide 26 mmol/L (22-30); Chloride 106 mmol/L (98-107); Glucose 95 mg/dL (74-99); INR 0.9 (<1.2); Partial Thromboplastin Time 27.5 sec (22.0-30.0); Potassium 4.3 mmol/L (3.5-5.1); Prothrombin Time 9.8 sec (9.0-12.0); Sodium 140 mmol/L (137-145)
--- NOTE | 2019-04-09 19:29 | CT ---
EXAMINATION TYPE: CT brain wo con DATE OF EXAM: 04/09/2019 COMPARISON: April 22, 2016 HISTORY: Headache/diarrhea x2 days. CT DLP: 1082.4 mGycm. Automated Exposure Control for Dose Reduction was Utilized. TECHNIQUE: CT scan of the head is performed without contrast. FINDINGS: Ventricles of normal size. There is no mass effect nor midline shift. There is no sign of i ntracranial hemorrhage. Calvarium is intact. IMPRESSION: Normal head CT scan. No change.
[2019-04-09] MEDS ORDERED: HYDROmorphone 0.5 MG/0.5 ML SYRINGE IVP STA (21:26)
[2019-04-09] MEDS ORDERED: NALOXONE 0.4 MG/ML 1 ML VIAL IV PRN (21:58)
[2019-04-09] MEDS ORDERED: MORPHINE SULFATE 4 MG/ML SYRINGE IV PRN (21:58)
[2019-04-09] MEDS: SODIUM CHLORIDE 0.9% 1,000 ML IV SCH (22:24)
[2019-04-09 23:40] VITALS: BMI 36.7
[2019-04-10] MEDS: SERTRALINE 100 MG TAB PO SCH ×2 (00:40→21:32)
[2019-04-10] MEDS: HYDROcodone/APAP 5-325MG 1 EACH TAB PO PRN (00:40)
[2019-04-10] MEDS: FAMOTIDINE 20 MG TAB PO SCH ×3 (00:40→21:32)
[2019-04-10] MEDS: busPIRone HCl 5 MG TAB PO PRN ×2 (00:41→21:32)
[2019-04-10] MEDS: ONDANSETRON 4 MG/2 ML VIAL IVP PRN ×2 (00:43→14:19)
[2019-04-10] MEDS: PANTOPRAZOLE 40 MG TABLET PO SCH (07:53)
[2019-04-10] MEDS: traMADol 50 MG TAB PO PRN ×2 (08:02→14:14)
[2019-04-10] MEDS ORDERED: VALPROATE SODIUM 1,000 MG in SODIUM CHLORIDE 0.9% 100 ML IVPB STA (09:25)
[2019-04-10] MEDS ORDERED: PROCHLORPERAZINE 5 MG TAB PO STA (09:28)
--- NOTE | 2019-04-10 09:42 | P.CNNES ---
History of Present Illness Consult date: 04/10/19 Requesting physician: Roger Disla Reason for Consult: Headache Chief complaint: Head hurting for several days History of Present Illness: This is a 28 RH female h/o PCOS, GERD and depression who started having a holocranial pressure/throbbing 7/10 pain 3-4 days ago. Associated symptoms inclu de photosonophobia and nausea but no emesis. Denies recent head trauma, fever, confusion, vertigo, focal numbness/weakness or bulbar symptoms. Also denies worsening of pain with Valsalva or upon assuming a supine position. No recent illness, sick contacts, exposure, changes in physical or dietary habits. She is not . She had headaches in the past but nothing like this. She came into the ER 04/08/19 and 04/09/19, and was admitted for workup and management. LP by ER was unsuccessful. She did receive diphenhydramine 50 mg IV, hydromorphone 0.5 mg IV, ketorolac 50 mg IV and ondansetron 4 mg IV. Still c/o 7/10 pain with photophobia. Review of Systems I have performed a 14-point organ ROS with patient; pertinents are as per HPI. Past Medical History Past Medical History: GERD/Reflux Additional Past Medical History / Comment(s): Recent abdominal pain, diarrhea and vomiting. Endometriosis, polycystic ovarian syndrome. History of Any Multi-Drug Resistant Organisms: None Reported Past Surgical History: Section, Cholecystectomy, Tubal Ligation Additional Past Surgical History / Comment(s): Laparoscopy X2, Section X3. Past Anesthesia/Blood Transfusion Reactions: No Reported Reaction Past Psychological History: Anxiety, Depression Smoking Status: Never smoker Past Alcohol Use History: Rare Past Drug Use History: None Reported - Past Family History Mother Family Medical History: Hyperlipidemia Additional Family Medical History / Comment(s): Depression and anxiety. Medications and Allergies Home Medications Medication Instructions Recorded Confirmed Type Sertraline HCl [Zoloft] 100 mg PO HS 12/24/18 04/09/19 History Ranitidine HCl [Zantac] 150 mg PO BID 12/31/18 04/09/19 History Hydrocodone/Acetaminophen [Lorcet 1 tab PO DAILY PRN 01/12/19 04/09/19 History 5-325 mg Tablet] busPIRone HCl [Buspar] 10 mg PO TID PRN 01/12/19 04/09/19 History traMADol HCL [Ultram] 50 mg PO QID PRN 02/16/19 04/09/19 History Ondansetron [Zofran ODT] 4 mg PO BID PRN 02/23/19 04/09/19 History Nitrofurantoin Monohyd/M-Cryst 100 mg PO Q12HR 7 Days #14 cap 04/08/19 04/09/19 Rx [Macrobid] Allergies Allergy/AdvReac Type Severity Reaction Status Date / Time adhesive tape Allergy Rash/Hives Verified 04/09/19 16:52 aloe vera Allergy Rash/Hives Verified 04/09/19 16:52 azithromycin Allergy Rash/Hives Verified 04/09/19 16:52 cephalexin Allergy Rash/Hives Verified 04/09/19 16:52 metronidazole [From Flagyl] Allergy Rash/Hives Verified 04/09/19 16:52 Penicillins Allergy Rash/Hives Verified 04/09/19 16:52 sulfamethoxazole Allergy Rash/Hives Verified 04/09/19 16:52 [From Bactrim] trimethoprim [From Bactrim] Allergy Rash/Hives Verified 04/09/19 16:52 Physical Examination - Vital Signs Vital Signs: Vital Signs Temp Pulse Pulse Resp BP BP Pulse Ox 04/10/19 08:00 16 04/10/19 07:00 97.2 F L 60 16 95/54 97 04/10/19 00:28 98.6 F 72 16 111/75 100 04/09/19 21:43 97.9 F 56 L 18 122/76 100 04/09/19 19:27 98 F 64 18 122/63 99 04/09/19 16:19 98.2 F 75 18 125/84 100 Intake and Output 04/09/19 04/10/19 04/10/19 22:59 06:59 14:59 Other: Voiding Method Toilet Toilet # Voids 1 Weight 82.554 kg Gen NAD Pleasant and cooperative in dark room and curtains drawn HEENT NCAT Sclera without icterus O/P clear Neck Supple No carotid bruit or meningismus Cor RRR no m/r/g Lungs CTAB Abd Soft NTND +BS Ext Warm to touch No edema Neuro MS A+Ox4 Normal fluency Able to follow all commands CN PERRL VFF no APD EOMI no nystagmus or RONALD No facial asymmetry Masseter's symmetric Hearing intact to normal voice bilaterally Speech not dysarthric Equal elevation of palate Tongue midline Sym shrug and SCM bilaterally Motor Normal bulk/tone No pronator or tremors Strength 5/5 sym throughout Sens Intact to LT x4 No neglect Coord No dysmetria on FTN bilaterally DTRs 2+/4 sym throughout Toes downgoing bilaterally No clonus at achilles Gait Deferred Results - Laboratory Findings CBC and BMP: 04/09/19 18:10 04/09/19 18:10 Abnormal Lab Findings: Abnormal Labs 04/09/19 18:10 Hgb 11.3 L - Diagnostic Findings Additional findings: CT Head wo cont 04/09/19. Normal. I have reviewed neuroimages myself. Assessment and Plan Assessment: New-onset headache with migrainous features, r/o increased ICP. CT Head unreveal ing. Plan: -LP under fluoroscopy ordered to measure OP -Will send CSF protein, glucose, cell count, diff, gram stain, culture, HSV PCR and VDRL -Abortive cocktail: VPA 1g IV x1, MgSO4 2g IV x1, prochlorperazine 5mg po x1 (do not see IV available in orders) -d/w patient in detail. All questions answered -Neurology will be available again on 04/13/19. Thank you for this consultation. Please call with ?. Time with Patient: Greater than 30 (Time spent in direct patient care, greater than 50% of which was spent in [id number] counseling and coordination of care: 70 minutes)
[2019-04-10] MEDS ORDERED: VALPROATE SODIUM IVPB ONE (10:00)
[2019-04-10] MEDS ORDERED: SODIUM CHLORIDE 0.9% IVPB ONE (10:00)
[2019-04-10] MEDS: MAGNESIUM SULFATE-D5W PMX 1 GM in DEXTROSE/WATER 1 100ML.BAG IVPB SCH ×2 (10:14→10:59)
--- NOTE | 2019-04-10 17:24 | FL ---
EXAMINATION TYPE: FL guided lumbar puncture LP DATE OF EXAM: 04/10/2019 HISTORY: Headache Maximal barrier technique was utilized. The skin overlying the L3 transverse process was localized u nder fluoroscopy and the overlying skin prepped and draped. Lidocaine used for local anesthesia. 20 -gauge needle was advanced into the thecal sac under fluoroscopic guidance and cerebrospinal fluid wa s noted to return in the hub of the needle. Opening pressure measurement of 7 cm of water was obtaine d. Approximately 10 cc of cerebrospinal fluid was obtained for laboratory analysis. A spot image veri fied needle placement. The needle was removed, hemostasis achieved. No immediate consultation. The patient remained in stable condition, the needle was removed. Hemostasis achieved. No immediate complication. 1.54 minutes fluoroscopy time, single intraoperative image. IMPRESSION: Fluoroscopic guided lumbar puncture, this procedure performed by the undersigned.
[2019-04-10 17:27] LABS: Glucose,CSF 51 mg/dL (40-70); Total Protein,CSF 35 mg/dL (12-60)
[2019-04-10 20:31] LABS: Appearance,CSF Clear; CSF Tube Number 4; Nucleated Cells, CSF 0 u/L (0-5); Red Blood Cell,CSF 2 u/L (0-10)
--- NOTE | 2019-04-10 22:24 | HP ---
HISTORY AND PHYSICAL CHIEF COMPLAINT: Intractable headache. HISTORY OF PRESENT ILLNESS: This is the first known admission for this 28-year-old white female. She has been in and out of the office on numerous occasions over the last several months with many different symptoms, including abdominal pain, chest pain, headache, etc. It is believed that she is under a significant amount of stress at home. We are never able to find medical explanations for her symptoms. She came into the emergency room with headache and was evaluated, and the emergency room physician felt that she should be admitted. An LP was attempted to look for pseudotumor cerebri, but it was unsuccessful. REVIEW OF SYSTEMS: She has had no change in vision or hearing, focal neurologic signs or symptoms, chest pain, shortness of breath, palpitations, hypertension, abdominal pain, diarrhea, melena, urinary complaints, renal failure, diabetes, etc. Past medical history, family history, and personal and social histories reveal that she is NOT ALLERGIC TO ANY MEDICATION. She is currently on: 1. Seroquel 25 mg at bedtime. 2. Ranitidine 150 mg twice a day. 3. Buspirone 10 mg t.i.d. p.r.n. 4. Hydrocodone 5/325 once a day p.r.n. 5. Vitamin D. 6. Zoloft 100 mg once a day. The remainder of her history is unremarkable. She does not smoke. She drinks occasionally. PHYSICAL EXAMINATION: Blood pressure 118/78, pulse 72, respirations 20, and she is afebrile. In general she appeared to be obese and demonstrating a very depressed affect. Skin color is normal. Skin is warm and dry. Head, ears, eyes, nose, mouth and throat were normal. Pupils were equal, round and reactive and gaze was conjugate. Cranial nerves were intact. Chest is clear. Cardiac exam is normal. Abdomen is soft and protuberant. Extremities are normal. Neurologically she had no deficits. She is admitted to the hospital with the diagnoses: 1. Intractable headache. 2. Depression. PLAN: 1. Bed rest. 2. IV fluids. 3. Neurology consult. MMJOSETTE / SCAR: [id number] /
--- NOTE | 2019-04-10 22:25 | PN ---
PROGRESS NOTE CHIEF COMPLAINT: Intractable headache. HISTORY OF PRESENT ILLNESS: This lady's headache is not improved. She does not have any focal neurologic deficits. She has had no chills. She has no photophobia. PHYSICAL EXAMINATION: Pupils equally round and reactive. Neck was supple. Chest is clear. Cardiac exam is normal. IMPRESSION: Headache, etiology unknown. PLAN: Continue workup. She has been referred to Neurology. MMODL / IJN: [id number] /
[2019-04-11] MEDS: ONDANSETRON 4 MG/2 ML VIAL IVP PRN ×2 (00:44→09:50)
[2019-04-11] MEDS: traMADol 50 MG TAB PO PRN ×4 (00:49→23:23)
[2019-04-11] MEDS: SODIUM CHLORIDE 0.9% 1,000 ML IV SCH ×2 (01:46→20:34)
[2019-04-11] MEDS: PANTOPRAZOLE 40 MG TABLET PO SCH (07:28)
[2019-04-11] MEDS: FAMOTIDINE 20 MG TAB PO SCH ×2 (07:28→20:34)
--- NOTE | 2019-04-11 11:22 | PN ---
PROGRESS NOTE DATE OF SERVICE: 04/11/2019. CHIEF COMPLAINT: Headache. HISTORY OF PRESENT ILLNESS: This lady still has a headache and she is being followed by Neurology. She has had no change in vision hearing or any neurologic symptoms, and she has had no diplopia. She has developed pruritic rash where she had a dressing. IMPRESSION: 1. Headache, etiology unknown. 2. Contact dermatitis. PLAN: 1. Hydrocortisone cream for her dermatitis. 2. Await further recommendations from Neurology. 3. Increase activity and probably home in the next day or 2. MMODL / IJN: [id number] /
[2019-04-11] MEDS: diphenhydrAMINE 25 MG CAP PO PRN ×2 (13:38→20:34)
[2019-04-11] MEDS: busPIRone HCl 5 MG TAB PO PRN (20:34)
[2019-04-11] MEDS: SERTRALINE 100 MG TAB PO SCH (20:34)
[2019-04-11] MEDS: HYDROcodone/APAP 5-325MG 1 EACH TAB PO PRN (21:49)
[2019-04-12] MEDS ORDERED: HYDROmorphone 1 MG/ML 1 ML SYRINGE IVP STA (00:47)
[2019-04-12] MEDS: diphenhydrAMINE 25 MG CAP PO PRN (03:10)
[2019-04-12] MEDS: traMADol 50 MG TAB PO PRN ×4 (07:20→20:22)
[2019-04-12] MEDS: FAMOTIDINE 20 MG TAB PO SCH ×2 (07:20→20:29)
[2019-04-12] MEDS: PANTOPRAZOLE 40 MG TABLET PO SCH (07:20)
[2019-04-12] MEDS: busPIRone HCl 5 MG TAB PO PRN ×2 (11:35→20:29)
[2019-04-12] MEDS: ONDANSETRON 4 MG/2 ML VIAL IVP PRN (15:45)
[2019-04-12] MEDS: SODIUM CHLORIDE 0.9% 1,000 ML IV SCH (19:34)
[2019-04-12] MEDS: SERTRALINE 100 MG TAB PO SCH (20:29)
[2019-04-12] MEDS: HYDROcodone/APAP 5-325MG 1 EACH TAB PO PRN (21:15)
[2019-04-12] MEDS ORDERED: HYDROmorphone 0.5 MG/0.5 ML SYRINGE IVP STA (22:43)
[2019-04-13] MEDS: PANTOPRAZOLE 40 MG TABLET PO SCH (06:13)
[2019-04-13] MEDS: diphenhydrAMINE 25 MG CAP PO PRN ×2 (06:14→22:11)
[2019-04-13] MEDS: traMADol 50 MG TAB PO PRN ×2 (06:19→18:03)
[2019-04-13] MEDS: ONDANSETRON 4 MG/2 ML VIAL IVP PRN ×2 (06:19→20:38)
[2019-04-13] MEDS ORDERED: SUMAtriptan SUCCINATE 6 MG/0.5 ML VIAL SQ STA (09:28)
[2019-04-13] MEDS: FAMOTIDINE 20 MG TAB PO SCH ×2 (09:29→20:33)
--- NOTE | 2019-04-13 09:37 | P.PN ---
Subjective Progress Note Date: 04/13/19 Principal diagnosis: Headache LP 04/10/19. c/o postural headache afterwards. Per RN patient has been able to get up. Patient reports currently a manageable 5/10 headache. Still has photophobia. Objective - Vital Signs Vital signs: Vital Signs Temp 97.9 F 04/13/19 08:15 Pulse 95 04/13/19 08:15 Resp 26 H 04/13/19 08:15 BP 107/74 04/13/19 08:15 Pulse Ox 97 04/13/19 08:15 Intake & Output 04/12/19 04/13/19 04/13/19 18:59 06:59 18:59 Intake Total 860 Balance 860 Intake: Oral 860 Other: Voiding Method Toilet # Voids 1 - Exam Gen NAD Lying in dark room MS A+Ox4 Normal speech CN II-XII grossly intact no nystagmus Motor Normal bulk/tone No tremors SWENSON x4 Sens Intact to LT x4 Coord Not tested DTRs 2+/4 sym throughout Gait Deferred - Labs CBC & Chem 7: 04/09/19 18:10 04/09/19 18:10 Labs: Microbiology - Last 24 Hours (Table) 04/10/19 16:05 CSF Gram Stain - Preliminary Cerebral Spinal Fluid CSF Culture - Preliminary Assessment and Plan Assessment: New-onset headache with migrainous features. Now also confounded by post-LP headache. She has improved somewhat overall. Plan: -CSF OP definitely not elevated; if anything, it is on the lower side -To treat post-LP headache, push fluids and caffeine during the day. If this headache does not resolve by later this week, she may need to return to the ER to get a blood patch via anesthesiology -CSF studies unrevealing thus far -Sumatriptan 6mg SC x1 -Start prophylaxis: Topiramate 25mg po qhs. This will need to be titrated as outpatient as follows:- 25mg po qhs for 7 days, then 50mg po qhs for 7 days then 25mg po qam and 50mg po qpm for 7 days then 50mg po bid -Dosing instructions and potential side effects d/w patient. She is instructed to drink plenty of fluids to prevent topiramate associated side effects i ncluding nephrolithiasis. She cannot get while on this medicine as it can cause cleft palate. She is not currently -She will need to follow up with her PCP for continued titration of her topiramate and may also benefit from outpatient neuro follow-up -d/w patient in detail. All questions answered -She should be able to go home later today or tomorrow depending on her clinical progress. Thank you again for this consultation. Please call with ?. Time with Patient: Less than 30 (Time spent in direct patient care, greater than 50% of which was spent in [id number] counseling and coordination of care: 25 minutes)
[2019-04-13 14:12] LABS: IgG/Albumin Index (CSF) 0.53 (0.00 - 0.77); Immunoglobulin G 975 mg/dL (700 - 1600)
--- NOTE | 2019-04-13 17:02 | P.PN ---
Progress Note - Text Progress Note Date: 04/13/19 Checked in on patient this afternoon. Headache down to anywhere between 0-2/10 s/p sumatriptan 6mg SC, which did make patient feel "weird." She is now able to eat and keep fluids down. Also started Mountain Dew as extra caffeine. Feels better in general. Able to get up and go to bathroom. Discussed the use of abortive and prophylactic meds. Patient will start topiramate and continue titration as outpatient with schedule delineated in my previous progress note. Patient states she had tubal ligation and is not possible to get . She should follow up with her PCP for continued headache management within one week. Patient is stable for discharge from an acute neuro standpoint. Will revisit patient prn. Please call with new ?.
[2019-04-13] MEDS: busPIRone HCl 5 MG TAB PO PRN (20:32)
[2019-04-13] MEDS: SERTRALINE 100 MG TAB PO SCH (20:33)
--- NOTE | 2019-04-13 20:58 | PN ---
PROGRESS NOTE DATE OF SERVICE: 04/12/2019. CHIEF COMPLAINT: Headache and abdominal pain. HISTORY OF PRESENT ILLNESS: This lady is now complaining of lower abdominal pain which she relates to ovarian issues, which she has had in the past. She has had no fever, chills, nausea, vomiting, diarrhea, dysuria, etc. Headaches are still present and she is being followed by Neurology. An LP was normal. PHYSICAL EXAM: Color is good. Neck is supple. Chest is clear. Cardiac exam is normal. She is slightly tender in the lower abdomen. IMPRESSION: 1. Intractable headache. 2. Lower abdominal pain, possibly due to ovarian cyst. PLAN: 1. Analgesia. 2. Await further recommendations. 3. From Neurology, but she could probably go home if the abdominal pain subsides. MMODL / IJN: [id number] /
[2019-04-13] MEDS ORDERED: TOPIRAMATE 25 MG TAB PO SCH (21:00)
[2019-04-13] MEDS: HYDROcodone/APAP 5-325MG 1 EACH TAB PO PRN (21:43)
[2019-04-13] MEDS: SODIUM CHLORIDE 0.9% 1,000 ML IV SCH (21:50)
[2019-04-13] MEDS ORDERED: clonazePAM 0.5 MG TAB PO PRN (21:55)
[2019-04-13] MEDS: IBUPROFEN 400 MG TAB PO PRN (22:09)
[2019-04-14] MEDS: FAMOTIDINE 20 MG TAB PO SCH (09:06)
[2019-04-14] MEDS: IBUPROFEN 400 MG TAB PO PRN (09:36)
[2019-04-14] MEDS: diphenhydrAMINE 25 MG CAP PO PRN (09:39)
[2019-04-14 10:22] VITALS: BP 98/63; PULSE 97; RESP 16; TEMP 97.9
[2019-04-14 10:46] LABS: VDRL, Qualitative CSF Nonreactive (Nonreactive)
--- NOTE | 2019-04-14 14:39 | CDI ---
Documentation Clarification Form Date: 04/14/2019 2:12:19 PM From: Megan Guajardo RN, CCDS Admit Date: 04/13/2019 11:43:00 AM Patient Name: Tricia Fleming Visit Number: [id number] Discharge Date: ATTENTION: The Clinical Documentation Specialists (CDI) and [facility] Coding Staff appreciate your assistance in clarifying documentation. Please respond to the clarification below the line at the bottom and electronically sign. The CDI & [facility] Coding staff will review the response and follow-up if needed. Please note: Queries are made part of the Legal Health Record. If you have any questions, please contact the author of this message via ITS. Dr. David Casper 04/13/19 Post -LP Headache is documented in your progress note and additional clarification is needed. Patients Admitting Diagnosis: New onset headache with migrainous features Post-Operative Diagnosis: Same Procedure performed: Lumbar puncture History/Risk Factors: Clinical Indicators: 28-janeth-old female who present with complaints of headache. On 04/10/19 she had an LP and complains of postural headache afterwards. She rates her pain 5/10. She has photophobia. She has been able to get up. Vital Signs: 107/74 95 26 97.9 Mental status a/o x4, normal speech, CN II-XII intact; Motor normal, Treatment: Push fluids and caffeine during the day Sumatriptan Succinate 6 mg SQx1 In order to accurately reflect this patients severity of illness, please clarify if the post-procedure diagnosis is: An expected post-procedural condition An unexpected post-procedural condition related to surgical care (a complication of care) An unexpected post-procedural condition related to the patients underlying medical comorbidities Other, please specify Unable to determine (Last Revision: October 2018) MTDD
--- NOTE | 2019-04-14 22:29 | DS ---
DISCHARGE SUMMARY CHIEF COMPLAINT: Intractable headache. HISTORY OF PRESENT ILLNESS AND PHYSICAL EXAM: Details of this lady's history and physical can be found in the initial workup. LABORATORY STUDIES: While she was in the hospital, she had laboratory studies, details of which can be found in the laboratory section of her chart. COURSE IN HOSPITAL: After admission, she was placed on bedrest and started on intravenous fluids and she was seen by Neurology. Spinal tap was done and it was normal. She was treated symptomatically and her headache slowly subsided. The patient then developed acute and severe lower abdominal pain, which was thought possibly to be due to an ovarian cyst. This too was treated symptomatically and her pain was improving and it was felt she could be discharged. She will go home on her usual diet and activity and she will be seen in the office in several days. She will be sent home on Motrin 800 mg q.i.d., which seemed to help her pelvic pain. FINAL DIAGNOSES: 1. Intractable headache. 2. Ovarian cyst. 3. Major depression. OPERATIONS: Lumbar puncture. CONSULTATIONS: Neurology. She is improved. MMODL / IJN: [id number] /
== END 2019-04-14 13:20 | disposition home or self-care (01) | DRG 103 ==
LOC: EC 15:36 → 4MS4W 21:58 → 6PED 04-12 13:43 → OBSVTOIN 04-13 11:43
PROVIDERS: ADMIT Family Medicine; ATTEND Family Medicine
PROC: 009U3ZX Drainage of Spinal Canal, Percutaneous Approach, Diagnostic (ICD-10-PCS; principal; 2019-04-10)
DX: G43.909 Migraine, unspecified, not intractable, without status migrainosus (principal); E28.2 Polycystic ovarian syndrome; F32.9 Major depressive disorder, single episode, unspecified; F41.9 Anxiety disorder, unspecified; G97.1 Other reaction to spinal and lumbar puncture; K21.9 Gastro-esophageal reflux disease without esophagitis; L25.9 Unspecified contact dermatitis, unspecified cause; Y84.4 Aspiration of fluid as the cause of abnormal reaction of the patient, or of later complication, without mention of misadventure at the time of the procedure; Z79.899 Other long term (current) drug therapy; Z98.51 Tubal ligation status; N80.9 Endometriosis, unspecified; Z88.1 Allergy status to other antibiotic agents; Z88.0 Allergy status to penicillin; Z88.2 Allergy status to sulfonamides; E66.9 Obesity, unspecified; Z68.36 Body mass index [BMI] 36.0-36.9, adult
CPT/HCPCS: 36415; 62270; 70450; 80048; 81025; 82040; 82042; 82164; 82784; 82945; 83916; 84157; 85025; 85610; 85730; 86592; 86850; 86900; 86901; 87070; 87205; 87252; 87496; 87498; 87529; 87798; 88108; 89050; 96361; 96374; 96375; 99285

== ENCOUNTER 2019-04-17 12:51 | Emergency (ER) | payer OTHER ==
[2019-04-17] MEDS ORDERED: SODIUM CHLORIDE 0.9% 1,000 ML IV ONE (13:42)
[2019-04-17] MEDS ORDERED: SODIUM CHLORIDE 0.9% 500 ML 500 ML IV ONE (13:42)
[2019-04-17] MEDS ORDERED: BUTALB/APAP/CAFF 50-325-40MG TAB PO STA (13:43)
--- NOTE | 2019-04-17 13:48 | ED ---
Headache HPI - General Chief Complaint: Headache Stated Complaint: Headache Time Seen by Provider: 04/17/19 13:30 Mode of arrival: ambulatory Limitations: no limitations - History of Present Illness Initial Comments: 28-year-old female presents emergency department for a blood patch. Patient states she was sent by her primary care provider for blood patch. Patient states after lumbar puncture that was performed one week ago she developed a headache that occurred when she stood up straight. Patient states that since she has not been able to sit up straight because she has a headache. Patient states when she is lying flat and has taken her medication she has essentially no pain history she stated that the pain increases. Patient denies any fevers or neck stiffness. Patient has any photophobia nausea vomiting. Patient after discussing her symptoms with her primary care provider presents emergency department for application of blood patch to help alleviate post lumbar unsure headache. Patient denies any other complaints. Remaining review of system negative. Upon arrival patient appears well no signs of acute distress. - Related Data Home Medications Medication Instructions Recorded Confirmed Sertraline HCl [Zoloft] 100 mg PO HS 12/24/18 04/09/19 Ranitidine HCl [Zantac] 150 mg PO BID 12/31/18 04/09/19 Hydrocodone/Acetaminophen [Lorcet 1 tab PO DAILY PRN 01/12/19 04/09/19 5-325 mg Tablet] busPIRone HCl [Buspar] 10 mg PO TID PRN 01/12/19 04/09/19 traMADol HCL [Ultram] 50 mg PO QID PRN 02/16/19 04/09/19 Ondansetron [Zofran ODT] 4 mg PO BID PRN 02/23/19 04/09/19 Previous Rx's Medication Instructions Recorded Nitrofurantoin Monohyd/M-Cryst 100 mg PO Q12HR 7 Days #14 cap 04/08/19 [Macrobid] Ibuprofen [Motrin] 800 mg PO Q6HR PRN #60 tab 04/14/19 Topiramate [Topamax] 25 mg PO HS #10 tab 04/14/19 diphenhydrAMINE [Benadryl] 25 mg PO TID PRN cap 04/14/19 Allergies Allergy/AdvReac Type Severity Reaction Status Date / Time adhesive tape Allergy Rash/Hives Verified 04/09/19 16:52 aloe vera Allergy Rash/Hives Verified 04/17/19 13:01 azithromycin Allergy Rash/Hives Verified 04/17/19 13:01 cephalexin Allergy Rash/Hives Verified 04/17/19 13:01 metronidazole [From Flagyl] Allergy Rash/Hives Verified 04/17/19 13:01 Penicillins Allergy Rash/Hives Verified 04/17/19 13:01 sulfamethoxazole Allergy Rash/Hives Verified 04/17/19 13:01 [From Bactrim] trimethoprim [From Bactrim] Allergy Rash/Hives Verified 04/17/19 13:01 Review of Systems ROS Statement: Those systems with pertinent positive or pertinent negative responses have been documented in the HPI. ROS Other: All systems not noted in ROS Statement are negative. Past Medical History Past Medical History: GERD/Reflux Additional Past Medical History / Comment(s): Recent abdominal pain, diarrhea and vomiting. Endometriosis, polycystic ovarian syndrome. History of Any Multi-Drug Resistant Organisms: None Reported Past Surgical History: Section, Cholecystectomy, Tubal Ligation Additional Past Surgical History / Comment(s): Laparoscopy X2, Section X3. Past Anesthesia/Blood Transfusion Reactions: No Reported Reaction Past Psychological History: Anxiety, Depression Smoking Status: Never smoker Past Alcohol Use History: Rare Past Drug Use History: None Reported - Past Family History Mother Family Medical History: Hyperlipidemia Additional Family Medical History / Comment(s): Depression and anxiety. General Exam - General Exam Comments Initial Comments: General: The patient is awake and alert, in no distress, and does not appear acutely ill. Eye: +3 mm pupils are equal, round and reactive to light, extra-ocular movements are intact. No nystagmus. There is normal conjunctiva bilaterally. No signs of icterus. No noted photophobia on examination Ears, nose, mouth and throat: There are moist mucous membranes and no oral lesions. Neck: The neck is supple, there is no tenderness or JVD. No rigidity. Negative Brudzinski and negative Kernig. Cardiovascular: There is a regular rate and rhythm. No murmur, rub or gallop is appreciated. Respiratory: Lungs are clear to auscultation, respirations are non-labored, breath sounds are equal. No wheezes, stridor, rales, or rhonchi. Musculoskeletal: Normal ROM, no tenderness. Strength 5/5. Sensation intact. Radial pulses equal bilaterally 2+. Neurological: A&O x 3. CN II-XII intact, There are no obvious motor or sensory deficits. Coordination appears grossly intact. Speech is normal. Skin: Skin is warm and dry and no rashes or lesions are noted. Psychiatric: Cooperative, appropriate mood & affect, normal judgment. Limitations: no limitations Course Vital Signs 04/17/19 04/17/19 12:58 16:34 Temperature 97.9 F Pulse Rate 74 74 Respiratory 20 18 Rate Blood Pressure 118/78 123/79 O2 Sat by Pulse 100 98 Oximetry Medical Decision Making - Medical Decision Making A well-appearing 28-year-old female presenting for blood patch. Patient had a lumbar puncture performed 7 days prior. Patient states that she has not been able to stand up straight secondary to the headache isn't duces. Patient states when lying flat she does not have any pain or minimal pain. Patient denies any fevers neck stiffness photophobia nausea vomiting. No focal neurological deficits on examination or nuchal irritation signs. Patient had blood patch applied by anesthesia in the emergency department. Patient states between the Dilaudid blood patch and Toradol she has no pain in her head nor at the site of the blood patch application. Patient appears well but aside stable laboratory studies unremarkable no leukocytosis the vicinity. Patient stable for discharge with outpatient primary care follow-up. Patient is agreeable with this care plan discharge at this time. Return parameters were discussed at length patient verbalized understanding I discussed the case by attending provider and patient was discharged appearing well - Lab Data Result diagrams: 04/17/19 14:06 04/17/19 14:06 Lab Results 04/17/19 04/17/19 Range/Units 14:06 14:06 WBC 4.1 (3.8-10.6) k/uL RBC 3.75 L (3.80-5.40) m/uL Hgb 11.5 (11.4-16.0) gm/dL Hct 33.1 L (34.0-46.0) % MCV 88.2 (80.0-100.0) fL MCH 30.7 (25.0-35.0) pg MCHC 34.8 (31.0-37.0) g/dL RDW 13.2 (11.5-15.5) % Plt Count 165 (150-450) k/uL Neutrophils % 61 % Lymphocytes % 29 % Monocytes % 6 % Eosinophils % 1 % Basophils % 1 % Neutrophils # 2.5 (1.3-7.7) k/uL Lymphocytes # 1.2 (1.0-4.8) k/uL Monocytes # 0.3 (0-1.0) k/uL Eosinophils # 0.0 (0-0.7) k/uL Basophils # 0.0 (0-0.2) k/uL Sodium 138 (137-145) mmol/L Potassium 4.4 (3.5-5.1) mmol/L Chloride 108 H (98-107) mmol/L Carbon Dioxide 20 L (22-30) mmol/L Anion Gap 10 mmol/L BUN 11 (7-17) mg/dL Creatinine 0.74 (0.52-1.04) mg/dL Est GFR (CKD-EPI)AfAm >90 (>60 ml/min/1.73 sqM) Est GFR (CKD-EPI)NonAf >90 (>60 ml/min/1.73 sqM) Glucose 87 (74-99) mg/dL Calcium 9.5 (8.4-10.2) mg/dL Total Bilirubin 0.8 (0.2-1.3) mg/dL AST 37 H (14-36) U/L ALT 34 (9-52) U/L Alkaline Phosphatase 84 (38-126) U/L Total Protein 7.2 (6.3-8.2) g/dL Albumin 4.1 (3.5-5.0) g/dL Disposition Clinical Impression: Post lumbar puncture headache Disposition: HOME SELF-CARE Condition: Good Instructions (If sedation given, give patient instructions): Epidural Blood Patch (DC) Additional Instructions: Please use medication as discussed. Please follow-up with family doctor in the next 24 hours. Please return to emergency room if the symptoms increase or worsen or for any other concerns-fever, neck stiffness, light sensitivity. Is patient prescribed a controlled substance at d/c from ED?: No Referrals: Samuel Daniels MD [Primary Care Provider] - 1-2 days Time of Disposition: 18:17
[2019-04-17] MEDS ORDERED: ONDANSETRON 4 MG/2 ML VIAL IVP STA (14:17)
[2019-04-17 14:24] LABS: Basophils % (A) 1 %; Eosinophils % (A) 1 %; HCT 33.1 % (34.0-46.0); HGB 11.5 gm/dL (11.4-16.0); Lymphocytes # (A) 1.2 k/uL (1.0-4.8); Lymphocytes % (A) 29 %; MCH 30.7 pg (25.0-35.0); MCHC 34.8 g/dL (31.0-37.0); MCV 88.2 fL (80.0-100.0); Mean Platelet Volume 7.3; Monocytes # (A) 0.3 k/uL (0-1.0); Monocytes % (A) 6 %; Neutrophils # (A) 2.5 k/uL (1.3-7.7); Neutrophils % (A) 61 %; Platelet Count 165 k/uL (150-450); RBC 3.75 m/uL (3.80-5.40); RDW 13.2 % (11.5-15.5); WBC 4.1 k/uL (3.8-10.6)
[2019-04-17 14:32] LABS: ALT 34 U/L (9-52); AST 37 U/L (14-36); African American GFR (CKD) >90 (>60 ml/min/1.73 sqM); Albumin 4.1 g/dL (3.5-5.0); Alkaline Phosphatase 84 U/L (38-126); Anion Gap 10 mmol/L; Blood Urea Nitrogen 11 mg/dL (7-17); Calcium 9.5 mg/dL (8.4-10.2); Carbon Dioxide 20 mmol/L (22-30); Chloride 108 mmol/L (98-107); Glucose 87 mg/dL (74-99); Sodium 138 mmol/L (137-145); Total Bilirubin 0.8 mg/dL (0.2-1.3); Total Protein 7.2 g/dL (6.3-8.2)
[2019-04-17 14:36] LABS: Potassium 4.4 mmol/L (3.5-5.1)
[2019-04-17] MEDS ORDERED: KETOROLAC 30 MG/ML 1 ML VIAL IVP STA (15:57)
[2019-04-17] MEDS ORDERED: HYDROmorphone 0.5 MG/0.5 ML SYRINGE IVP PRN (16:15)
[2019-04-17 16:35] VITALS: RESP 18
[2019-04-17] MEDS ORDERED: busPIRone HCl 5 MG TAB PO STA (16:39)
--- NOTE | 2019-04-17 16:46 | P.PCN ---
Date of Procedure: 04/17/19 Procedure(s) Performed: procedure= epidural blood patch. preop diagnisis = post dural puncture headache. post op diagnosis = same as pre op diagnosis . anesthesia= local lidocain 1 % 3 ml . complications =none conditions = stable . indications ,and descreptions of the procedure= pateints had diagnostic lumber puncture done few days ago ,she is complaining of sever ,positional headach ,no fever, no focal neurological defecits , procedure, risk ,and benefits ,and alternatives discussed with the pateints ,and she agreed with proceding , sitting positions , back preped with betadine x3 , L4-5 level , local lidocaine 20 G Toughy needle , Positive SALLIE to saline , NO heme ,NO parasthesia , NO CSF , then 20 ml of autologus blood taken under sterile Teq from Right AC ( preped with Chlohexiodine x3 ) ,injected in the epidural space, pateints tolerated the procedur well, without complications , further instructions as per ER team.
[2019-04-17 19:13] VITALS: BP 109/69; PULSE 61; TEMP 98.3
== END 2019-04-17 18:26 | disposition home or self-care (01) ==
LOC: EC 12:51
DX: G97.1 Other reaction to spinal and lumbar puncture (principal); R51 Headache; F41.9 Anxiety disorder, unspecified; F32.9 Major depressive disorder, single episode, unspecified; K21.9 Gastro-esophageal reflux disease without esophagitis; Z79.899 Other long term (current) drug therapy; Z91.048 Other nonmedicinal substance allergy status; Z88.1 Allergy status to other antibiotic agents; Z88.8 Allergy status to other drugs, medicaments and biological substances; Z88.0 Allergy status to penicillin; Z88.2 Allergy status to sulfonamides; Z87.42 Personal history of other diseases of the female genital tract; Z90.49 Acquired absence of other specified parts of digestive tract
CPT/HCPCS: 99284; 96374; 96375 ×2; 96361; 36415; 80053; 85025; J2405; J1885; J1170

== ENCOUNTER 2019-04-18 15:37 | Emergency (ER) | payer OTHER ==
[2019-04-18] MEDS ORDERED: HYDROmorphone 1 MG/ML 1 ML SYRINGE IM STA (16:11)
[2019-04-18] MEDS ORDERED: ACET/COD 300 MG/30 MG STARTER PACK 6 TAB BTL PO STA (16:45)
--- NOTE | 2019-04-18 16:45 | ED ---
General Adult HPI - General Chief complaint: Neck Pain/Injury Stated complaint: neck pain Time Seen by Provider: 04/18/19 15:54 Source: patient, RN notes reviewed Mode of arrival: wheelchair Limitations: no limitations - History of Present Illness Initial comments: 28-year-old female presents to the emergency department for a chief complaint of back pain states this started about 3 hours prior to arrival. States it is throughout her generalized back a since of her neck down to her low back into her shoulder blades. Patient states that she was recently admitted at this week for intractable migraines. States she did a lumbar puncture done that was clear. However after patient was discharged she continued to have a headache and presented to the emergency department yesterday where a blood patch was applied. States headache has resolved but now patient has back pain. States her child is being unruly last night and did run into her and states this could've strained her back. Denies any dysuria. Denies any fevers or chills. Denies headache. Eyes bladder or bowel changes, weakness in the lower extremities, saddle anesthesia. Patient has no other complaints at this time including shortness of breath, chest pain, abdominal pain, nausea or vomiting, headache, or visual changes. - Related Data Home Medications Medication Instructions Recorded Confirmed Sertraline HCl [Zoloft] 100 mg PO HS 12/24/18 04/09/19 Ranitidine HCl [Zantac] 150 mg PO BID 12/31/18 04/09/19 Hydrocodone/Acetaminophen [Lorcet 1 tab PO DAILY PRN 01/12/19 04/09/19 5-325 mg Tablet] busPIRone HCl [Buspar] 10 mg PO TID PRN 01/12/19 04/09/19 traMADol HCL [Ultram] 50 mg PO QID PRN 02/16/19 04/09/19 Ondansetron [Zofran ODT] 4 mg PO BID PRN 02/23/19 04/09/19 Previous Rx's Medication Instructions Recorded Nitrofurantoin Monohyd/M-Cryst 100 mg PO Q12HR 7 Days #14 cap 04/08/19 [Macrobid] Ibuprofen [Motrin] 800 mg PO Q6HR PRN #60 tab 04/14/19 Topiramate [Topamax] 25 mg PO HS #10 tab 04/14/19 diphenhydrAMINE [Benadryl] 25 mg PO TID PRN cap 04/14/19 Allergies Allergy/AdvReac Type Severity Reaction Status Date / Time adhesive tape Allergy Rash/Hives Verified 04/18/19 15:43 aloe vera Allergy Rash/Hives Verified 04/18/19 15:43 azithromycin Allergy Rash/Hives Verified 04/18/19 15:43 cephalexin Allergy Rash/Hives Verified 04/18/19 15:43 metronidazole [From Flagyl] Allergy Rash/Hives Verified 04/18/19 15:43 Penicillins Allergy Rash/Hives Verified 04/18/19 15:43 sulfamethoxazole Allergy Rash/Hives Verified 04/18/19 15:43 [From Bactrim] trimethoprim [From Bactrim] Allergy Rash/Hives Verified 04/18/19 15:43 Review of Systems ROS Statement: Those systems with pertinent positive or pertinent negative responses have been documented in the HPI. ROS Other: All systems not noted in ROS Statement are negative. Past Medical History Past Medical History: GERD/Reflux Additional Past Medical History / Comment(s): Recent abdominal pain, diarrhea and vomiting. Endometriosis, polycystic ovarian syndrome. History of Any Multi-Drug Resistant Organisms: None Reported Past Surgical History: Section, Cholecystectomy, Tubal Ligation Additional Past Surgical History / Comment(s): Laparoscopy X2, Section X3. Past Anesthesia/Blood Transfusion Reactions: No Reported Reaction Past Psychological History: Anxiety, Depression Smoking Status: Never smoker Past Alcohol Use History: Rare Past Drug Use History: None Reported - Past Family History Mother Family Medical History: Hyperlipidemia Additional Family Medical History / Comment(s): Depression and anxiety. General Exam Limitations: no limitations General appearance: alert, in no apparent distress Head exam: Present: atraumatic, normocephalic, normal inspection Eye exam: Present: normal appearance, PERRL, EOMI. Absent: scleral icterus, conjunctival injection, periorbital swelling ENT exam: Present: normal exam, mucous membranes moist Neck exam: Present: normal inspection, full ROM. Absent: tenderness, meningismus, lymphadenopathy Respiratory exam: Present: normal lung sounds bilaterally. Absent: respiratory distress, wheezes, rales, rhonchi, stridor Cardiovascular Exam: Present: regular rate, normal rhythm, normal heart sounds. Absent: systolic murmur, diastolic murmur, rubs, gallop, clicks GI/Abdominal exam: Present: soft, normal bowel sounds. Absent: distended, tenderness, guarding, rebound, rigid Back exam: Absent: CVA tenderness (R), CVA tenderness (L), vertebral tenderness Neurological exam: Present: alert Psychiatric exam: Present: normal affect, normal mood Course Vital Signs 04/18/19 15:40 Temperature 98.3 F Pulse Rate 81 Respiratory 18 Rate Blood Pressure 115/74 O2 Sat by Pulse 100 Oximetry Medical Decision Making - Medical Decision Making 28-year-old female presents for back pain. Patient was recently admitted for intractable migraine with lumbar puncture, had blood patch applied yesterday. States this resulted headache however today about 3 hours ago patient started have generalized back pain that goes into her shoulder blades. Vitals are stable. Patient is afebrile. Exam is unremarkable. No CVA tenderness. This could be muscular skeletal in nature as patient states she had to control her misbehaving child yesterday and this strained her back. Could also be secondary to receiving blood patch yesterday. No red flag symptoms. Patient was given pain medication and is feeling better. Patient will be discharged home. She'll follow-up with primary care in return if she has any worsening symptoms. I discussed this case with attending Dr. Alejandro who agrees with this assessment and treatment plan. Disposition Clinical Impression: Back pain Disposition: HOME SELF-CARE Condition: Good Instructions (If sedation given, give patient instructions): Acute Low Back Pain (ED) Additional Instructions: Take Tylenol [address] for pain[address] not drive or operative machinery while taking this. Follow up with primary care. Return to the emergency department if you have any worsening symptoms. Is patient prescribed a controlled substance at d/c from ED?: No Referrals: Samuel Daniels MD [Primary Care Provider] - 1-2 days Time of Disposition: 16:44
[2019-04-18 17:06] VITALS: BP 116/70; PULSE 64; RESP 16; TEMP 98
== END 2019-04-18 17:00 | disposition home or self-care (01) ==
LOC: EC 15:37
DX: M54.2 Cervicalgia (principal); M54.6 Pain in thoracic spine; M54.5 Low back pain; K21.9 Gastro-esophageal reflux disease without esophagitis; F32.9 Major depressive disorder, single episode, unspecified; F41.9 Anxiety disorder, unspecified; Z88.0 Allergy status to penicillin; Z88.1 Allergy status to other antibiotic agents; Z88.2 Allergy status to sulfonamides; Z91.048 Other nonmedicinal substance allergy status; Z79.899 Other long term (current) drug therapy
CPT/HCPCS: 99283; 96372; J1170

== ENCOUNTER 2019-04-20 18:52 | Emergency (ER) | payer OTHER ==
[2019-04-20 19:56] VITALS: RESP 16
[2019-04-20] MEDS ORDERED: KETOROLAC 30 MG/ML 1 ML VIAL IVP STA (22:35)
[2019-04-20] MEDS ORDERED: diphenhydrAMINE 50 MG/ML 1 ML VIAL IVP STA (22:35)
[2019-04-20] MEDS ORDERED: SODIUM CHLORIDE 0.9% 2,000 ML IV ONE (22:35)
[2019-04-20] MEDS ORDERED: METOCLOPRAMIDE 5 MG/ML 2 ML VIAL IVP STA (22:35)
--- NOTE | 2019-04-20 22:40 | ED ---
Headache HPI - General Chief Complaint: Headache Stated Complaint: headache Time Seen by Provider: 04/20/19 21:46 Mode of arrival: ambulatory Limitations: no limitations - History of Present Illness Initial Comments: This patient is 28-year-old woman who presents to be evaluated for generalized headache. She states that the headache had come on last week and she had a spinal tap for diagnostic purposes. When the headache continued she did return and had a blood patch performed. She then was doing well for a couple of days and then started having recurrence of headache from the morning into today. Patient states the headache has come on gradually. It is not the worst headache of life. It is made worse by bright light and noise. She also has been having nausea. No fever or chills. No neck stiffness. No neurologic symptoms. MD Complaint: headache -: hour(s) Onset Description: gradual Location: diffuse Severity: severe Quality: aching Consistency: constant Improves With: nothing Worsens With: light, noise Context: occurred at rest, recent spinal/epidural procedure Associated Symptoms: nausea Treatments Prior to Arrival: Ibuprofen - Related Data Home Medications Medication Instructions Recorded Confirmed Sertraline HCl [Zoloft] 100 mg PO HS 12/24/18 04/20/19 Ranitidine HCl [Zantac] 150 mg PO BID 12/31/18 04/20/19 busPIRone HCl [Buspar] 10 mg PO TID PRN 01/12/19 04/20/19 Ondansetron [Zofran ODT] 4 mg PO BID PRN 02/23/19 04/20/19 Acetaminophen-Codeine 300-30mg 1 tab PO DAILY PRN 04/20/19 04/20/19 [Tylenol w/codeine #3] Butalb/Asprin/Caff 50-325-40Mg 1 cap PO Q8H PRN 04/20/19 04/20/19 [Fiorinal 50-325-40 MG] Previous Rx's Medication Instructions Recorded Ibuprofen [Motrin] 800 mg PO Q6HR PRN #60 tab 04/14/19 Topiramate [Topamax] 25 mg PO HS #10 tab 04/14/19 diphenhydrAMINE [Benadryl] 25 mg PO TID PRN cap 04/14/19 Allergies Allergy/AdvReac Type Severity Reaction Status Date / Time adhesive tape Allergy Rash/Hives Verified 04/20/19 21:57 aloe vera Allergy Rash/Hives Verified 04/20/19 21:57 azithromycin Allergy Rash/Hives Verified 04/20/19 21:57 cephalexin Allergy Rash/Hives Verified 04/20/19 21:57 metronidazole [From Flagyl] Allergy Rash/Hives Verified 04/20/19 21:57 Penicillins Allergy Rash/Hives Verified 04/20/19 21:57 sulfamethoxazole Allergy Rash/Hives Verified 04/20/19 21:57 [From Bactrim] trimethoprim [From Bactrim] Allergy Rash/Hives Verified 04/20/19 21:57 Review of Systems ROS Statement: Those systems with pertinent positive or pertinent negative responses have been documented in the HPI. ROS Other: All systems not noted in ROS Statement are negative. Constitutional: Denies: fever, chills Eyes: Denies: eye pain, vision change Respiratory: Denies: cough, dyspnea Cardiovascular: Denies: chest pain, palpitations Gastrointestinal: Reports: nausea, vomiting. Denies: abdominal pain Neurological: Reports: headache. Denies: weakness, numbness, paresthesias, confusion Past Medical History Past Medical History: GERD/Reflux Additional Past Medical History / Comment(s): Recent abdominal pain, diarrhea and vomiting. Endometriosis, polycystic ovarian syndrome. History of Any Multi-Drug Resistant Organisms: None Reported Past Surgical History: Section, Cholecystectomy, Tubal Ligation Additional Past Surgical History / Comment(s): Laparoscopy X2, Section X3. Past Anesthesia/Blood Transfusion Reactions: No Reported Reaction Past Psychological History: Anxiety, Depression Smoking Status: Never smoker Past Alcohol Use History: Rare Past Drug Use History: None Reported - Past Family History Mother Family Medical History: Hyperlipidemia Additional Family Medical History / Comment(s): Depression and anxiety. General Exam Limitations: no limitations General appearance: alert, in no apparent distress Head exam: Present: atraumatic, normocephalic Eye exam: Present: normal appearance, PERRL, EOMI. Absent: scleral icterus, conjunctival injection ENT exam: Present: normal oropharynx Neck exam: Present: normal inspection, full ROM. Absent: tenderness, meningismus GI/Abdominal exam: Present: soft. Absent: tenderness Extremities exam: Present: normal inspection Neurological exam: Present: alert, oriented X3, CN II-XII intact, normal gait. Absent: motor sensory deficit Skin exam: Present: warm, dry, intact, normal color. Absent: rash Course Vital Signs 04/20/19 04/21/19 19:52 00:08 Temperature 98.8 F 99.3 F Pulse Rate 86 99 Respiratory 16 16 Rate Blood Pressure 127/82 108/64 O2 Sat by Pulse 100 99 Oximetry Medical Decision Making - Medical Decision Making Patient is 28-year-old woman presenting with generalized headache that has improved here with treatment. She states she is feeling better and would like to go home. We discussed appropriate further care and follow-up. Disposition Clinical Impression: Headache Disposition: HOME SELF-CARE Condition: Good Instructions (If sedation given, give patient instructions): Acute Headache (ED) Is patient prescribed a controlled substance at d/c from ED?: No Referrals: Samuel Daniels MD [Primary Care Provider] - 1-2 days
[2019-04-21 00:09] VITALS: BP 108/64; PULSE 99; TEMP 99.3
== END 2019-04-21 01:03 | disposition home or self-care (01) ==
LOC: EC 18:52
DX: R51 Headache (principal); R11.0 Nausea; K21.9 Gastro-esophageal reflux disease without esophagitis; F32.9 Major depressive disorder, single episode, unspecified; F41.9 Anxiety disorder, unspecified; Z88.0 Allergy status to penicillin; Z88.1 Allergy status to other antibiotic agents; Z88.2 Allergy status to sulfonamides; Z91.048 Other nonmedicinal substance allergy status; Z79.899 Other long term (current) drug therapy
CPT/HCPCS: 99283; 96374; 96375 ×2; 96361 ×2; J1200; J2765; J1885

== ENCOUNTER 2019-04-23 17:06 | Observation (INO) | payer OTHER ==
[2019-04-23] MEDS ORDERED: KETOROLAC 30 MG/ML 1 ML VIAL IVP STA (18:46)
[2019-04-23] MEDS ORDERED: SODIUM CHLORIDE 0.9% 1,000 ML IV STA ×2 (18:46→21:56)
[2019-04-23] MEDS ORDERED: ONDANSETRON 4 MG/2 ML VIAL IVP STA (19:04)
[2019-04-23] MEDS ORDERED: CAFFEINE-SODIUM BENZOATE 500 MG in SODIUM CHLORIDE 0.9% 1,000 ML IVPB ONE (19:15)
--- NOTE | 2019-04-23 19:18 | ED ---
General Adult HPI - General Source: patient, RN notes reviewed Mode of arrival: ambulatory Limitations: no limitations <Bryan Lorenzo - Last Filed: 04/23/19 20:06> <Ludmila Velasquez - Last Filed: 04/28/19 12:42> - General Chief complaint: Headache Stated complaint: Headache Time Seen by Provider: 04/23/19 17:48 - History of Present Illness Initial comments: 28-year-old female with a past medical history of abdominal pain, diarrhea, vomiting, endometriosis, PCOS, migraines presents to the emergency department f or headache. Patient has had a headache for over 2 weeks. This comes and goes. Patient had a lumbar puncture on 04/10/2019 about 2 weeks ago that was clean. She then had a worsening headache that was positional. Patient had a blood patch placed on 04/17/2019. This did relieve her pain for 24 hours however she developed headache again. States his headache is better when lying down and states that light and sound makes it worse. States it is across her frontal head. States that she saw her primary care provider today who sent her in for a repeat patch.Patient has no other complaints at this time including shortness of breath, chest pain, abdominal pain, nausea or vomiting, headache, or visual changes. (Bryan Lorenzo) - Related Data Home Medications Medication Instructions Recorded Confirmed Sertraline HCl [Zoloft] 100 mg PO HS 12/24/18 04/23/19 Ondansetron [Zofran ODT] 4 mg PO BID PRN 02/23/19 04/23/19 Butalb/Asprin/Caff 50-325-40Mg 1 cap PO Q8H PRN 04/20/19 04/23/19 [Fiorinal 50-325-40 MG] busPIRone HCl [Buspar] 10 mg PO TID 04/23/19 04/23/19 Previous Rx's Medication Instructions Recorded Ibuprofen [Motrin] 800 mg PO Q6HR PRN #60 tab 04/14/19 Famotidine [Pepcid] 20 mg PO BID #20 tab 04/25/19 Magnesium Oxide [Mag-Ox] 400 mg PO BID #60 tab 04/25/19 Topiramate [Topamax] 50 mg PO BID #60 tab 04/25/19 methylPREDNISolone Dose Pack 1 mg PO DAILY 7 Days #1 pack 10/05/19 [Medrol Dose Pack] Allergies Allergy/AdvReac Type Severity Reaction Status Date / Time adhesive tape Allergy Rash/Hives Verified 04/23/19 22:07 aloe vera Allergy Rash/Hives Verified 04/23/19 22:07 azithromycin Allergy Rash/Hives Verified 04/23/19 22:07 cephalexin Allergy Rash/Hives Verified 04/23/19 22:07 metronidazole [From Flagyl] Allergy Rash/Hives Verified 04/23/19 22:07 Penicillins Allergy Rash/Hives Verified 04/23/19 22:07 sulfamethoxazole Allergy Rash/Hives Verified 04/23/19 22:07 [From Bactrim] trimethoprim [From Bactrim] Allergy Rash/Hives Verified 04/23/19 22:07 Review of Systems ROS Other: All systems not noted in ROS Statement are negative. <Bryan Lorenzo P - Last Filed: 04/23/19 20:06> ROS Other: All systems not noted in ROS Statement are negative. <Ludmila Velasquez - Last Filed: 04/28/19 12:42> ROS Statement: Those systems with pertinent positive or pertinent negative responses have been documented in the HPI. Past Medical History Past Medical History: GERD/Reflux Additional Past Medical History / Comment(s): Recent abdominal pain, diarrhea and vomiting. Endometriosis, polycystic ovarian syndrome. History of Any Multi-Drug Resistant Organisms: None Reported Past Surgical History: Section, Cholecystectomy, Tubal Ligation Additional Past Surgical History / Comment(s): Laparoscopy X2, Section X3. Past Anesthesia/Blood Transfusion Reactions: No Reported Reaction Past Psychological History: Anxiety, Depression Smoking Status: Never smoker Past Alcohol Use History: Rare Past Drug Use History: None Reported - Past Family History Mother Family Medical History: Hyperlipidemia Additional Family Medical History / Comment(s): Depression and anxiety. <Bryan Lorenzo P - Last Filed: 04/23/19 20:06> General Exam Limitations: no limitations General appearance: alert, in no apparent distress Head exam: Present: atraumatic, normocephalic, normal inspection Eye exam: Present: normal appearance, PERRL, EOMI. Absent: scleral icterus, conjunctival injection, periorbital swelling ENT exam: Present: normal exam, mucous membranes moist Neck exam: Present: normal inspection, full ROM. Absent: tenderness, meningismus, lymphadenopathy Respiratory exam: Present: normal lung sounds bilaterally. Absent: respiratory distress, wheezes, rales, rhonchi, stridor Cardiovascular Exam: Present: regular rate, normal rhythm, normal heart sounds. Absent: systolic murmur, diastolic murmur, rubs, gallop, clicks Neurological exam: Present: alert, oriented X3, CN II-XII intact, normal gait, other (GCS 15) <Bryan Lorenzo - Last Filed: 04/23/19 20:06> Course Vital Signs 04/23/19 04/23/19 04/23/19 17:10 21:08 23:03 Temperature 98.4 F 98.3 F 98.4 F Pulse Rate 70 61 87 Respiratory 20 16 16 Rate Blood Pressure 128/89 136/88 134/87 O2 Sat by Pulse 99 100 99 Oximetry Medical Decision Making <Bryan Lorenzo - Last Filed: 04/23/19 20:06> - Lab Data Result diagrams: 04/24/19 08:00 04/24/19 08:00 <Ludmila Velasquez - Last Filed: 04/28/19 12:42> - Medical Decision Making 28-year-old female presents for headache 2-3 weeks. Patient has been seen several times in the emergency department for this complaint. Patient had a clean lumbar puncture performed on 04/10/2019 and a blood patch on 02/07/2019. That did relieve her pain for 24 hours but it has returned. Patient saw her primary care provider today who sent her into the emergency department for a second blood patch. On exam there are no focal neurologic defi cits. Vitals are stable. Patient is afebrile. She denies any maximal intensity at onset. Denies any neck pain. Dr Sanchez spoke with Dr Sanchez who recommended no blood patch. He did recommend 500 mg of IV caffeine as well as caffeine for home. Patient was also given Toradol and Zofran. She refused Reglan and Benadryl because it makes her feel jittery. Patient does have some improvement with this. It brought her pain down from a 9 to a 6. Patient will be discharged home to follow up with primary care. Discussed that she may need neurology referral from primary care. She will inquire about this. She'll return if she has any worsening symptoms.I discussed this case with attending Dr. Velasquez who agrees with this assessment and treatment plan. Brain CT was obtained 2 weeks ago which was normal, no change. (Bryan Lorenzo) The patient did receive the medications. She was reevaluated and continued to report 10 out of 10 headache. Because of this I did reevaluate the patient's labs and imaging. I did provide her with a migraine cocktail. I did recommend hospital admission for intractable headache. A call discuss case with Dr. Daniels who did accept admission of the patient. Patient was admitted to the floor. Upon report the admitting nurse stated that they took care of the patient previously. She did have improvement in her symptoms with an eczema requesting order. I did order a CBC and BMP. The patient was in agreement with the treatment plan and was transported to the floor in stable condition (Ludmila Velasquez) - Lab Data Lab Results 04/23/19 04/23/19 04/23/19 Range/Units 21:45 21:45 21:45 WBC 6.0 (3.8-10.6) k/uL RBC 3.89 (3.80-5.40) m/uL Hgb 11.4 (11.4-16.0) gm/dL Hct 35.6 (34.0-46.0) % MCV 91.5 (80.0-100.0) fL MCH 29.2 (25.0-35.0) pg MCHC 32.0 (31.0-37.0) g/dL RDW 13.6 (11.5-15.5) % Plt Count 211 (150-450) k/uL Neutrophils % 58 % Lymphocytes % 34 % Monocytes % 5 % Eosinophils % 1 % Basophils % 0 % Neutrophils # 3.5 (1.3-7.7) k/uL Lymphocytes # 2.1 (1.0-4.8) k/uL Monocytes # 0.3 (0-1.0) k/uL Eosinophils # 0.0 (0-0.7) k/uL Basophils # 0.0 (0-0.2) k/uL Sodium 141 (137-145) mmol/L Potassium 3.6 (3.5-5.1) mmol/L Chloride 110 H (98-107) mmol/L Carbon Dioxide 18 L (22-30) mmol/L Anion Gap 13 mmol/L BUN 9 (7-17) mg/dL Creatinine 0.62 (0.52-1.04) mg/dL Est GFR (CKD-EPI)AfAm >90 (>60 ml/min/1.73 sqM) Est GFR (CKD-EPI)NonAf >90 (>60 ml/min/1.73 sqM) Glucose 93 (74-99) mg/dL Calcium 8.7 (8.4-10.2) mg/dL Total Bilirubin 0.3 (0.2-1.3) mg/dL AST 18 (14-36) U/L ALT 19 (9-52) U/L Alkaline Phosphatase 73 (38-126) U/L Total Protein 6.6 (6.3-8.2) g/dL Albumin 3.9 (3.5-5.0) g/dL Urine HCG, Qual Not Detected (Not Detectd) Disposition Is patient prescribed a controlled substance at d/c from ED?: No Time of Disposition: 19:17 <Bryan Lorenzo P - Last Filed: 04/23/19 20:06> <Ludmila Velasquez - Last Filed: 04/28/19 12:42> Clinical Impression: Headache Disposition: HOME SELF-CARE Condition: Good
[2019-04-23] MEDS ORDERED: METOCLOPRAMIDE 5 MG/ML 2 ML VIAL IVP STA (21:56)
[2019-04-23] MEDS ORDERED: MAGNESIUM SULFATE-D5W PMX 1 GM in DEXTROSE/WATER 1 100ML.BAG IVPB ONE (21:56)
[2019-04-23] MEDS ORDERED: NALOXONE 0.4 MG/ML 1 ML VIAL IV PRN (21:57)
[2019-04-23] MEDS ORDERED: DEXAMETHASONE SOD PHOSPHATE 10 MG/ML 1 ML VIAL IV STA (21:57)
[2019-04-23 22:03] LABS: Basophils % (A) 0 %; Eosinophils % (A) 1 %; HCT 35.6 % (34.0-46.0); HGB 11.4 gm/dL (11.4-16.0); Lymphocytes # (A) 2.1 k/uL (1.0-4.8); Lymphocytes % (A) 34 %; MCH 29.2 pg (25.0-35.0); MCV 91.5 fL (80.0-100.0); Mean Platelet Volume 6.8; Monocytes # (A) 0.3 k/uL (0-1.0); Monocytes % (A) 5 %; Neutrophils # (A) 3.5 k/uL (1.3-7.7); Neutrophils % (A) 58 %; Platelet Count 211 k/uL (150-450); RBC 3.89 m/uL (3.80-5.40); RDW 13.6 % (11.5-15.5)
[2019-04-23] MEDS: diphenhydrAMINE 50 MG/ML 1 ML VIAL IVP STA (22:04)
[2019-04-23 22:20] LABS: ALT 19 U/L (9-52); AST 18 U/L (14-36); African American GFR (CKD) >90 (>60 ml/min/1.73 sqM); Albumin 3.9 g/dL (3.5-5.0); Alkaline Phosphatase 73 U/L (38-126); Anion Gap 13 mmol/L; Blood Urea Nitrogen 9 mg/dL (7-17); Calcium 8.7 mg/dL (8.4-10.2); Carbon Dioxide 18 mmol/L (22-30); Chloride 110 mmol/L (98-107); Glucose 93 mg/dL (74-99); Potassium 3.6 mmol/L (3.5-5.1); Sodium 141 mmol/L (137-145); Total Bilirubin 0.3 mg/dL (0.2-1.3); Total Protein 6.6 g/dL (6.3-8.2)
[2019-04-23] MEDS ORDERED: clonazePAM 0.5 MG TAB PO SCH (23:15)
[2019-04-23 23:56] VITALS: BMI 87.0
[2019-04-24] MEDS ORDERED: TOPIRAMATE 25 MG TAB PO SCH (01:00)
[2019-04-24] MEDS: busPIRone HCl 10 MG TAB PO SCH ×4 (01:14→21:23)
[2019-04-24] MEDS: SODIUM CHLORIDE 0.9% 1,000 ML IV SCH ×2 (01:14→08:54)
[2019-04-24] MEDS: FAMOTIDINE 20 MG TAB PO SCH ×3 (01:14→21:22)
[2019-04-24] MEDS: SERTRALINE 100 MG TAB PO SCH ×2 (01:14→21:23)
[2019-04-24] MEDS: KETOROLAC 30 MG/ML 1 ML VIAL IVP PRN ×3 (04:28→16:10)
[2019-04-24 08:15] LABS: Basophils % (A) 0 %; Eosinophils % (A) 0 %; HGB 10.7 gm/dL (11.4-16.0); Lymphocytes # (A) 0.7 k/uL (1.0-4.8); Lymphocytes % (A) 13 %; MCH 29.1 pg (25.0-35.0); MCHC 31.6 g/dL (31.0-37.0); MCV 92.2 fL (80.0-100.0); Mean Platelet Volume 7.2; Monocytes # (A) 0.1 k/uL (0-1.0); Monocytes % (A) 1 %; Neutrophils # (A) 4.6 k/uL (1.3-7.7); Neutrophils % (A) 85 %; Platelet Count 229 k/uL (150-450); RBC 3.69 m/uL (3.80-5.40); RDW 13.5 % (11.5-15.5); WBC 5.4 k/uL (3.8-10.6)
[2019-04-24 08:30] LABS: African American GFR (CKD) >90 (>60 ml/min/1.73 sqM); Anion Gap 8 mmol/L; Blood Urea Nitrogen 10 mg/dL (7-17); Calcium 8.8 mg/dL (8.4-10.2); Carbon Dioxide 20 mmol/L (22-30); Chloride 111 mmol/L (98-107); Glucose 127 mg/dL (74-99); Potassium 4.4 mmol/L (3.5-5.1); Sodium 139 mmol/L (137-145)
[2019-04-24] MEDS ORDERED: FIORINAL PO PRN (10:41)
[2019-04-24] MEDS ORDERED: IBUPROFEN 800 MG TAB PO PRN (10:41)
[2019-04-24] MEDS ORDERED: ONDANSETRON ODT 4 MG TAB PO PRN (10:41)
[2019-04-24] MEDS: diphenhydrAMINE 50 MG/ML 1 ML VIAL IVP STA (11:58)
[2019-04-24] MEDS ORDERED: methylPREDNISolone 4 MG TAB TAPER PO SCH ×2 (18:15→18:30)
--- NOTE | 2019-04-24 20:23 | PN ---
PROGRESS NOTE CHIEF COMPLAINT: Headache. HISTORY OF PRESENT ILLNESS: This lady comes back in again for headache. It was thought that she might have a spinal headache from a spinal tap about a week ago. She continued to complain of a headache and came to the emergency room, where Anesthesia performed a blood patch. She went home and felt well for a few hours and then her headache came back. She was in the office again the day of admission complaining of a headache. She requested another blood patch. She was told that this might not be an appropriate request. She then made her way back to the emergency room, where Anesthesia refused to do a second procedure. It was determined that she would be admitted to be re-evaluated by Neurology and to try to get to the bottom of the cause of the headache as well as to come up with an appropriate treatment. She does have a very severe emotional overlay. She has difficulty at home raising children and has a who is generally usually only partially employed and has his own psychosocial problems. She has had no diplopia, seizures, focal neurologic deficits, etc. REVIEW OF SYSTEMS: Otherwise unremarkable. Past medical history, family history, and personal and social histories are all essentially unremarkable and unchanged. A great deal of her problem is emotional and represents somatization. PHYSICAL EXAMINATION: Blood pressure is 123/80 with a pulse of 63, respirations of 15, and she is afebrile. In general she appears to be overweight, in no acute distress. Skin color is normal. Skin is warm and dry. Head, ears, eyes, nose, mouth and throat are normal. Neck veins are not distended. Thyroid is not enlarged. Chest is clear. Cardiac exam is normal. Abdomen is soft, nontender. There are no masses or visceromegaly. Bowel sounds are present. Extremities are normal. Neurologically she is intact. Neck is supple. Her affect is one of depression. IMPRESSION: 1. Headache. 2. Frequent complaints of abdominal pain. 3. Depression. 4. Somatization. PLAN: 1. Bed rest. 2. IV fluids. 3. Consult with Neurology and Psychiatry. MMODL / IJN: [id number] /
--- NOTE | 2019-04-24 20:28 | PN ---
PROGRESS NOTE CHIEF COMPLAINT: Headache. HISTORY OF PRESENT ILLNESS: This lady is still complaining of a headache and now she has started to once again complain about lower abdominal "ovarian" pain. She has not been seen by Psychiatry or Neurology yet. PHYSICAL EXAMINATION: Chest is clear. Cardiac exam is normal. Abdomen is soft, nontender. Neck is supple. Vital signs are normal. IMPRESSION: 1. Headache. 2. Lower abdominal pain. 3. Depression. PLAN: Await consultations regarding this lady's persistent psychosocial issues. MMODL / IJN: [id number] /
[2019-04-24] MEDS: TOPIRAMATE 25 MG TAB PO SCH (21:22)
[2019-04-24] MEDS: MAGNESIUM OXIDE 400 MG TAB PO SCH (21:25)
[2019-04-25 08:24] VITALS: RESP 16
[2019-04-25] MEDS: TOPIRAMATE 25 MG TAB PO SCH (08:25)
[2019-04-25] MEDS: MAGNESIUM OXIDE 400 MG TAB PO SCH (08:25)
[2019-04-25] MEDS: busPIRone HCl 10 MG TAB PO SCH (08:25)
[2019-04-25] MEDS: FAMOTIDINE 20 MG TAB PO SCH (08:25)
[2019-04-25] MEDS ORDERED: methylPREDNISolone 4 MG TAB TAPER PO SCH (09:00)
--- NOTE | 2019-04-25 10:25 | P.CNNES ---
History of Present Illness Consult date: 04/24/19 Reason for Consult: Intractable cephalalgia Chief complaint: Headache History of Present Illness: HISTORY OF PRESENT ILLNESS: Thank you for allowing me to evaluate Ms. Tricia Fleming. Ms. Fleming is a 28 year-old woman with PMhx of GERD, endometriosis, polycystic ovarian syndrome, anxiety, depression, presenting to [facility] for intractable headache. Patient states that about 2 weeks ago, she came to the hospital for significant headache, at the time, she was told that there was high pressure in her head, got a lumbar puncture done, opening pressure was 7cm of H2O, unclear in which position patient was placed but most likely on her lateral side. Patient states that her headache improved slightly but continued to have the headache. Blood patch was also performed as patient was having worsening headache even after the patch was placed. Pt returns as patient continued to have her headache. Patient states that at the time of my evaluation, her headache has improved significantly although she still has about 3/10 pain. Her headache is more over the forehead. Patient states that fiorinal has been the only medication that has been helping her with her headache. Patient endorses some intermittent headache prior to these episodes, but denies any migriane history in her family or herself. Patient has been compliant with meds, she's taking topamax 50mg qday dosing right now. PAST MEDICAL HISTORY: GERD, endometriosis, polycystic ovarian syndrome, anxiety, depression PAST SURGICAL HISTORY: x3, cholecystectomy, tubal ligation HOME MEDICATIONS: Sertraline, ranitidine, Zofran, Fiorinal, Topamax, buspirone ALLERGIES: Adhesive tape, allopurinol, azithromycin, cephalexin, metronidazole, peni cillins, sulfamethoxazole, trimethoprim SOCIAL HISTORY: Never smoker. FAMILY HISTORY: Mother with hyperlipidemia, depression and anxiety REVIEW OF SYSTEMS: The 14 systems are reviewed and no additional points are identified compared to the review of systems documented history and physical PHYSICAL EXAMINATION: VITAL SIGNS: T 98.1 HR 54 RR 12 BP 104/67 O2 sat 98% on RA GEN.: NAD, pleasant and cooperative HEENT: NCAT, sclera without icterus NECK: Supple SKIN AND EXTREMITIES: Warm to touch, no edema NEURO: MENTAL STATUS: Patient alert and oriented to self, place, time. Able to name th e current president. Speech fluent, able to name and repeat, following all commands readily. No right and left disorientation, extinction to double simultaneous stimulation, finger agnosia, neglect. CRANIAL NERVES II THROUGH XII: II: Pupils are equal and reactive to light symmetrically. No afferent pupillary defect. Visual morris are intact. III, IV, : No ptosis. Extraocular movements full. No nystagmus. V: Facial sensation intact from V1-3. VII. No clear facial asymmetry. VIII: Hearing intact to finger rub bilaterally. IX, X: Symmetric palate elevation. XI: Shoulder shrug intact. XII: Tongue midline without fasciculation or atrophy. MOTOR: Normal bulk/tone. No pronator drift or tremor. Strength is 5/5 throughout all 4 extremities. SENSORY: Intact to light touch, temperature, pinprick in all 4 extremities. Romberg is negative. REFLEXES: 2+ throughout. Toes are downgoing. COORDINATION: Finger to nose intact. No dysmetria. DIAGNOSTIC TESTING: LABORATORY: WBC 5.4 hemoglobin 10.7 platelet 229 sodium 139 potassium 4.4 chloride 111 bicarb 20 BUN 10 creatinine 0.67 glucose 127 AST 18 ALT 19 alk phos 73 urine hcg not detected IMAGING: CT head without contrast 04/09/2019: Normal scan of the brain. No change ASSESSMENT: Ms. Fleming is a 28 year-old woman with PMhx of GERD, endometriosis, polycystic ovarian syndrome, anxiety, depression, presenting to [facility] for intractable headache. Patient may be still having post-LP headache, but patient's headache has improved with fiorinal. Patient with migranous symptoms. LP opening pressure was within normal limits, actually slightly low. However, patient is overweight. Patient does not endorse ever having visual deficits. Differential diagnosis at this time migraine vs. idiopathic intracranial hypertension although lower on the differential (topamax can be used for treatment of IIH but diamox would be better option if patient indeed gets a diagnosis of IIH in the future). RECOMMENDATIONS: 1. Will start medrol-dose pack 2. Increase topamax to 50mg BID x5 days; increase to 75mg BID after. 3. MgOx 400mg BID (pt reports intermittent episodes of diarrhea; advised patient to decrease to once a day dosing if diarrhea continues or gets worse with it) 4. Riboflavin (vitamin B2) 400mg qday (patient needs to purchase this herself) 5. Patient needs outpatient Neurology follow-up within 2-3 weeks of discharge 6. Discussed with patient about lifestyle changes including weight loss to help with her headache. Pt states that her weight went from 250 to 180 pounds in the last 5 years, and she's still trying to lose more weight) 7. Neurology will sign off at this time. Feel free to [employer] message with any additional questions or concerns. Past Medical History Past Medical History: GERD/Reflux Additional Past Medical History / Comment(s): Recent abdominal pain, diarrhea and vomiting. Endometriosis, polycystic ovarian syndrome. History of Any Multi-Drug Resistant Organisms: None Reported Past Surgical History: Section, Cholecystectomy, Tubal Ligation Additional Past Surgical History / Comment(s): Laparoscopy X2, Section X3. Past Anesthesia/Blood Transfusion Reactions: No Reported Reaction Past Psychological History: Anxiety, Depression Smoking Status: Never smoker Past Alcohol Use History: Rare Past Drug Use History: None Reported - Past Family History Mother Family Medical History: Hyperlipidemia Additional Family Medical History / Comment(s): Depression and anxiety. Medications and Allergies Home Medications Medication Instructions Recorded Confirmed Type Sertraline HCl [Zoloft] 100 mg PO HS 12/24/18 04/23/19 History Ranitidine HCl [Zantac] 150 mg PO BID 12/31/18 04/23/19 History Ondansetron [Zofran ODT] 4 mg PO BID PRN 02/23/19 04/23/19 History Ibuprofen [Motrin] 800 mg PO Q6HR PRN #60 tab 04/14/19 04/23/19 Rx Butalb/Asprin/Caff 50-325-40Mg 1 cap PO Q8H PRN 04/20/19 04/23/19 History [Fiorinal 50-325-40 MG] Topiramate [Topamax] 50 mg PO HS 04/23/19 04/23/19 History busPIRone HCl [Buspar] 10 mg PO TID 04/23/19 04/23/19 History Allergies Allergy/AdvReac Type Severity Reaction Status Date / Time adhesive tape Allergy Rash/Hives Verified 04/23/19 22:07 aloe vera Allergy Rash/Hives Verified 04/23/19 22:07 azithromycin Allergy Rash/Hives Verified 04/23/19 22:07 cephalexin Allergy Rash/Hives Verified 04/23/19 22:07 metronidazole [From Flagyl] Allergy Rash/Hives Verified 04/23/19 22:07 Penicillins Allergy Rash/Hives Verified 04/23/19 22:07 sulfamethoxazole Allergy Rash/Hives Verified 04/23/19 22:07 [From Bactrim] trimethoprim [From Bactrim] Allergy Rash/Hives Verified 04/23/19 22:07 Physical Examination - Vital Signs Vital Signs: Vital Signs Temp Pulse Pulse Resp BP BP Pulse Ox 04/24/19 08:08 98.1 F 54 L 12 104/67 98 04/23/19 23:28 97.8 F 61 16 123/76 100 04/23/19 23:03 98.4 F 87 16 134/87 99 04/23/19 21:08 98.3 F 61 16 136/88 100 04/23/19 17:10 98.4 F 70 20 128/89 99 Intake and Output 04/23/19 04/24/19 04/24/19 22:59 06:59 14:59 Other: # Voids 1 1 Weight 182.5 kg Results - Laboratory Findings CBC and BMP: 04/24/19 08:00 04/24/19 08:00 Abnormal Lab Findings: Abnormal Labs 04/23/19 04/24/19 04/24/19 21:45 08:00 08:00 RBC 3.69 L Hgb 10.7 L Lymphocytes # 0.7 L Chloride 110 H 111 H Carbon Dioxide 18 L 20 L Glucose 127 H
[2019-04-25 11:15] VITALS: BP 123/76; PULSE 64; TEMP 98.3
--- NOTE | 2019-04-25 15:26 | PN ---
PROGRESS NOTE CHIEF COMPLAINT: Headache and abdominal pain. HISTORY OF PRESENT ILLNESS: This lady now states her headache is better, but she is starting to have lower abdominal pain once again. She usually responds to Motrin. PHYSICAL EXAM: Chest is clear. Cardiac exam is normal. Abdomen is soft, nontender. Neck is supple. IMPRESSION: 1. Headache, etiology unknown. 2. Lower abdominal pain, etiology unknown. PLAN: 1. Try to progress activity. 2. Await Neurology consult the first of the week. MMODL / IJN: [id number] /
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
== END 2019-04-25 17:15 | disposition home or self-care (01) ==
LOC: EC 17:06 → 6PED 22:07
PROVIDERS: ADMIT Family Medicine; ATTEND Family Medicine
DX: R51 Headache (principal); R10.30 Lower abdominal pain, unspecified; F45.9 Somatoform disorder, unspecified; R19.7 Diarrhea, unspecified; K21.9 Gastro-esophageal reflux disease without esophagitis; E28.2 Polycystic ovarian syndrome; N80.9 Endometriosis, unspecified; F41.0 Panic disorder [episodic paroxysmal anxiety]; F41.1 Generalized anxiety disorder; F32.9 Major depressive disorder, single episode, unspecified; E66.3 Overweight; Z68.45 Body mass index [BMI] 70 or greater, adult; Z79.899 Other long term (current) drug therapy; Z88.0 Allergy status to penicillin; Z88.1 Allergy status to other antibiotic agents; Z88.2 Allergy status to sulfonamides; Z91.048 Other nonmedicinal substance allergy status; Z90.49 Acquired absence of other specified parts of digestive tract; Z98.51 Tubal ligation status; Z91.5 Personal history of self-harm; Z86.69 Personal history of other diseases of the nervous system and sense organs; Z81.8 Family history of other mental and behavioral disorders; Z83.49 Family history of other endocrine, nutritional and metabolic diseases
CPT/HCPCS: 96361 ×2; 96375 ×2; 96376; 96365; 96366; 96367; 99285; 36415; 80053; 80048; 85025 ×2; 81025; G0378 ×3; J1200; J1100; J2765; J2405; J1885 ×2; J3475; J7509 ×2; 99284

== ENCOUNTER 2019-07-22 15:27 | Emergency (ER) | payer OTHER ==
[2019-07-22] MEDS ORDERED: ONDANSETRON 4 MG/2 ML VIAL IVP STA (16:09)
[2019-07-22] MEDS ORDERED: SODIUM CHLORIDE 0.9% 1,000 ML IV STA (16:09)
[2019-07-22 16:54] LABS: Basophils % (A) 0 %; Eosinophils % (A) 1 %; HCT 35.1 % (34.0-46.0); HGB 11.9 gm/dL (11.4-16.0); Lymphocytes # (A) 1.3 k/uL (1.0-4.8); Lymphocytes % (A) 28 %; MCH 30.5 pg (25.0-35.0); MCV 89.8 fL (80.0-100.0); Mean Platelet Volume 8.7; Monocytes # (A) 0.3 k/uL (0-1.0); Monocytes % (A) 6 %; Neutrophils # (A) 3.1 k/uL (1.3-7.7); Neutrophils % (A) 64 %; Platelet Count 191 k/uL (150-450); RBC 3.91 m/uL (3.80-5.40); RDW 13.3 % (11.5-15.5); WBC 4.8 k/uL (3.8-10.6)
[2019-07-22 17:04] LABS: Albumin 4.3 g/dL (3.5-5.0); Appearance,Urine Clear (Clear); Bacteria,Urine Few /hpf; Bilirubin,Urine Negative (Negative); Blood,Urine Negative (Negative); Calcium 9.6 mg/dL (8.4-10.2); Color,Urine Yellow; Glucose,Urine (UA) Negative (Negative); Hyaline Casts,Urine 1 /lpf (0-2); Ketones,Urine Negative (Negative); Leukocyte Esterase,Urine Trace (Negative); Mucus,Urine Occasional /hpf; Nitrite,Urine Negative (Negative); PH, Urine 6.5 (5.0-8.0); Potassium 3.8 mmol/L (3.5-5.1); Protein,Urine 1+ (Negative); Specific Gravity,Urine 1.032 (1.001-1.035); Squamous Epithelial Cell,Urine 2 /hpf (0-4); Total Bilirubin 0.6 mg/dL (0.2-1.3); Total Protein 7.3 g/dL (6.3-8.2); Urobilinogen,Urine <2.0 mg/dL (<2.0); WBC,Urine 2 /hpf (0-5)
--- NOTE | 2019-07-22 17:12 | XR ---
EXAMINATION TYPE: XR KUB DATE OF EXAM: 07/22/2019 COMPARISON: 12/31/2018 HISTORY: Abdominal pain TECHNIQUE: Single view upright FINDINGS: Bowel gas pattern is normal. There is no sign of intestinal obstruction or pneumoperitoneum . Fecal pattern is normal. There is no sign of a mass. There are clips from tubal ligation. There are clips from cholecystectomy. Lung bases are clear. There are no pathologic calcifications over the ki dneys. IMPRESSION: Nonacute abdomen. No change.
[2019-07-22] MEDS ORDERED: KETOROLAC 30 MG/ML 1 ML VIAL IVP STA (17:13)
--- NOTE | 2019-07-22 18:12 | ED ---
General Adult HPI - General Chief complaint: Abdominal Pain Stated complaint: abd pain Time Seen by Provider: 07/22/19 15:52 Source: patient, RN notes reviewed, old records reviewed Mode of arrival: ambulatory Limitations: no limitations - History of Present Illness Initial comments: 29-year-old female patient presents to ED for G complain of abdominal pain, nausea vomiting diarrhea which has been ongoing for the last 5 days. Ports that the majority discomfort is in her right lower quadrant region.. Denies any other complaints this time. Denies any chance of being , she does have tubal ligation. Systemic: Pt denies fatigue, fever/chills, rash. Pt denies weakness, night sweats, weight loss. Neuro: Pt denies headache, visual disturbances, syncope or pre-syncope. HEENT: Pt denies ocular discharge or irritation, otalgia, rhinorrhea, phar yngitis or notable lymphadenopathy. Cardiopulmonary: Pt denies chest pain, SOB, heart palpitations, dyspnea on exertion. : Pt denies dysuria, burning w/ urination, frequency/urgency. Denies new onset urinary or bowel incontinence. MSK: Pt denies myalgia, loss of strength or function in extremities. Neuro: Pt denies new onset weakness, paresthesias. - Related Data Home Medications Medication Instructions Recorded Confirmed Sertraline HCl [Zoloft] 100 mg PO HS 12/24/18 04/23/19 Ondansetron [Zofran ODT] 4 mg PO BID PRN 02/23/19 04/23/19 Butalb/Asprin/Caff 50-325-40Mg 1 cap PO Q8H PRN 04/20/19 04/23/19 [Fiorinal 50-325-40 MG] busPIRone HCl [Buspar] 10 mg PO TID 04/23/19 04/23/19 Previous Rx's Medication Instructions Recorded Ibuprofen [Motrin] 800 mg PO Q6HR PRN #60 tab 04/14/19 Famotidine [Pepcid] 20 mg PO BID #20 tab 04/25/19 Magnesium Oxide [Mag-Ox] 400 mg PO BID #60 tab 04/25/19 Topiramate [Topamax] 50 mg PO BID #60 tab 04/25/19 methylPREDNISolone Dose Pack 1 mg PO DAILY 7 Days #1 pack 04/25/19 [Medrol Dose Pack] Allergies Allergy/AdvReac Type Severity Reaction Status Date / Time adhesive tape Allergy Rash/Hives Verified 07/22/19 15:36 aloe vera Allergy Rash/Hives Verified 07/22/19 15:36 azithromycin Allergy Rash/Hives Verified 07/22/19 15:36 cephalexin Allergy Rash/Hives Verified 07/22/19 15:36 metronidazole [From Flagyl] Allergy Rash/Hives Verified 07/22/19 15:36 Penicillins Allergy Rash/Hives Verified 07/22/19 15:36 sulfamethoxazole Allergy Rash/Hives Verified 07/22/19 15:36 [From Bactrim] trimethoprim [From Bactrim] Allergy Rash/Hives Verified 07/22/19 15:36 Review of Systems ROS Statement: Those systems with pertinent positive or pertinent negative responses have been documented in the HPI. ROS Other: All systems not noted in ROS Statement are negative. Past Medical History Past Medical History: GERD/Reflux Additional Past Medical History / Comment(s): Recent abdominal pain, diarrhea and vomiting. Endometriosis, polycystic ovarian syndrome. History of Any Multi-Drug Resistant Organisms: None Reported Past Surgical History: Section, Cholecystectomy, Tubal Ligation Additional Past Surgical History / Comment(s): Laparoscopy X2, Section X3. Past Anesthesia/Blood Transfusion Reactions: No Reported Reaction Past Psychological History: Anxiety, Depression Smoking Status: Never smoker Past Alcohol Use History: Rare Past Drug Use History: None Reported - Past Family History Mother Family Medical History: Hyperlipidemia Additional Family Medical History / Comment(s): Depression and anxiety. General Exam - General Exam Comments Initial Comments: Constitutional: NAD, AOX3, Pt has pleasant affect. HEENT: NC/AT, trachea midline, neck supple, no lymphadenopathy. Posterior pharynx non erythematous, without exudates. External ears appear normal, without discharge. Mucous membranes moist. Eyes PERRLA, EOM intact. There is no scleral icterus. No pallor noted. Cardiopulmonary: RRR, no murmurs, rubs or gallops, no JVD noted. Lungs CTAB in anterior and posterior morris. No peripheral edema. Abdominal exam: Abdomen soft and non-distended. Abdomen non-tender to palpation in all 4 quadrants. Bowel sounds active in LLQ. No hepatosplenomegaly. No ecchymosis Neuro: CN II-XII grossly intact. No nuchal rigidity. No raccon eyes, no madrigal sign, no hemotympanum. No cervical spinal tenderness. MSK: No posterior calf tenderness bilaterally, homans sign negative bilaterally. Posterior tibialis and radial pulse +2 bilaterally. Sensation intact in upper and lower extremities. Full active ROM in upper and lower extremities, 5/5 stregnth. Limitations: no limitations Course Vital Signs 07/22/19 07/22/19 15:33 18:55 Temperature 98.8 F 98.3 F Pulse Rate 97 78 Respiratory 18 19 Rate Blood Pressure 119/89 117/69 O2 Sat by Pulse 100 98 Oximetry Medical Decision Making - Medical Decision Making 29-year-old female patient presents to ED for G complain of abdominal pain, nausea vomiting diarrhea which has been ongoing for the last 5 days. Ports that the majority discomfort is in her right lower quadrant region.. Denies any other complaints this time. Denies any chance of being , she does have tubal ligation. Patient vital signs are stable, afebrile. Physical exam test with acute pathology. Abdomen is nontender, repeat exam abdomen continues to be nontender. Of investigations are non-impressive. UA negative. CBC displayed an acute abdomen, no change. Patient feeling improved with pain medication. Patient reports that the pain has not moved a little bit lower. She believes that this is one of her ovarian cyst. Reports the pain is much improved at this point patient is following up with her OB tomorrow. Patient declines any further advanced imaging. Patient discharged with follow-up with primary care prior to return to ER if condition worsens. Case discussed with Dr. Velasquez. - Lab Data Result diagrams: 07/22/19 16:40 07/22/19 16:40 Lab Results 07/22/19 07/22/19 07/22/19 Range/Units 16:40 16:40 16:40 WBC 4.8 (3.8-10.6) k/uL RBC 3.91 (3.80-5.40) m/uL Hgb 11.9 (11.4-16.0) gm/dL Hct 35.1 (34.0-46.0) % MCV 89.8 (80.0-100.0) fL MCH 30.5 (25.0-35.0) pg MCHC 34.0 (31.0-37.0) g/dL RDW 13.3 (11.5-15.5) % Plt Count 191 (150-450) k/uL Neutrophils % 64 % Lymphocytes % 28 % Monocytes % 6 % Eosinophils % 1 % Basophils % 0 % Neutrophils # 3.1 (1.3-7.7) k/uL Lymphocytes # 1.3 (1.0-4.8) k/uL Monocytes # 0.3 (0-1.0) k/uL Eosinophils # 0.0 (0-0.7) k/uL Basophils # 0.0 (0-0.2) k/uL Sodium 141 (137-145) mmol/L Potassium 3.8 (3.5-5.1) mmol/L Chloride 111 H (98-107) mmol/L Carbon Dioxide 21 L (22-30) mmol/L Anion Gap 9 mmol/L BUN 11 (7-17) mg/dL Creatinine 0.99 (0.52-1.04) mg/dL Est GFR (CKD-EPI)AfAm 89 (>60 ml/min/1.73 sqM) Est GFR (CKD-EPI)NonAf 78 (>60 ml/min/1.73 sqM) Glucose 96 (74-99) mg/dL Plasma Lactic Acid Santhosh (0.7-2.0) mmol/L Calcium 9.6 (8.4-10.2) mg/dL Total Bilirubin 0.6 (0.2-1.3) mg/dL AST 21 (14-36) U/L ALT 23 (4-34) U/L Alkaline Phosphatase 61 (38-126) U/L Total Protein 7.3 (6.3-8.2) g/dL Albumin 4.3 (3.5-5.0) g/dL Lipase 56 (23-300) U/L Urine Color Urine Appearance (Clear) Urine pH (5.0-8.0) Ur Specific [place] (1.001-1.035) Urine Protein (Negative) Urine Glucose (UA) (Negative) Urine Ketones (Negative) Urine Blood (Negative) Urine Nitrite (Negative) Urine Bilirubin (Negative) Urine Urobilinogen (<2.0) mg/dL Ur Leukocyte Esterase (Negative) Urine WBC (0-5) /hpf Ur Squamous Epith Cells (0-4) /hpf Urine Bacteria (None) /hpf Hyaline Casts (0-2) /lpf Urine Mucus (None) /hpf Urine HCG, Qual Not Detected (Not Detectd) 07/22/19 07/22/19 Range/Units 16:40 16:40 WBC (3.8-10.6) k/uL RBC (3.80-5.40) m/uL Hgb (11.4-16.0) gm/dL Hct (34.0-46.0) % MCV (80.0-100.0) fL MCH (25.0-35.0) pg MCHC (31.0-37.0) g/dL RDW (11.5-15.5) % Plt Count (150-450) k/uL Neutrophils % % Lymphocytes % % Monocytes % % Eosinophils % % Basophils % % Neutrophils # (1.3-7.7) k/uL Lymphocytes # (1.0-4.8) k/uL Monocytes # (0-1.0) k/uL Eosinophils # (0-0.7) k/uL Basophils # (0-0.2) k/uL Sodium (137-145) mmol/L Potassium (3.5-5.1) mmol/L Chloride (98-107) mmol/L Carbon Dioxide (22-30) mmol/L Anion Gap mmol/L BUN (7-17) mg/dL Creatinine (0.52-1.04) mg/dL Est GFR (CKD-EPI)AfAm (>60 ml/min/1.73 sqM) Est GFR (CKD-EPI)NonAf (>60 ml/min/1.73 sqM) Glucose (74-99) mg/dL Plasma Lactic Acid Santhosh 0.5 L (0.7-2.0) mmol/L Calcium (8.4-10.2) mg/dL Total Bilirubin (0.2-1.3) mg/dL AST (14-36) U/L ALT (4-34) U/L Alkaline Phosphatase (38-126) U/L Total Protein (6.3-8.2) g/dL Albumin (3.5-5.0) g/dL Lipase (23-300) U/L Urine Color Yellow Urine Appearance Clear (Clear) Urine pH 6.5 (5.0-8.0) Ur Specific [place] 1.032 (1.001-1.035) Urine Protein 1+ H (Negative) Urine Glucose (UA) Negative (Negative) Urine Ketones Negative (Negative) Urine Blood Negative (Negative) Urine Nitrite Negative (Negative) Urine Bilirubin Negative (Negative) Urine Urobilinogen <2.0 (<2.0) mg/dL Ur Leukocyte Esterase Trace H (Negative) Urine WBC 2 (0-5) /hpf Ur Squamous Epith Cells 2 (0-4) /hpf Urine Bacteria Few H (None) /hpf Hyaline Casts 1 (0-2) /lpf Urine Mucus Occasional H (None) /hpf Urine HCG, Qual (Not Detectd) Disposition Clinical Impression: Abdominal pain, Nausea vomiting and diarrhea Disposition: HOME SELF-CARE Condition: Stable Instructions (If sedation given, give patient instructions): Abdominal Pain (ED) Additional Instructions: Follow-up with primary care provider and 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 Return to ER if condition worsens in any way. Is patient prescribed a controlled substance at d/c from ED?: No Referrals: [facility] [Primary Care Provider] - 1-2 days
[2019-07-22] MEDS ORDERED: Acetaminophen-Codeine 300-30mg TAB PO STA (18:31)
[2019-07-22 19:08] VITALS: BP 117/69; PULSE 78; RESP 19; TEMP 98.3
== END 2019-07-22 18:55 | disposition home or self-care (01) ==
LOC: EC 15:27
DX: R10.31 Right lower quadrant pain (principal); R11.2 Nausea with vomiting, unspecified; R19.7 Diarrhea, unspecified; F41.9 Anxiety disorder, unspecified; F32.9 Major depressive disorder, single episode, unspecified; Z90.49 Acquired absence of other specified parts of digestive tract; Z98.51 Tubal ligation status; Z87.42 Personal history of other diseases of the female genital tract; Z79.899 Other long term (current) drug therapy; Z91.048 Other nonmedicinal substance allergy status; Z88.1 Allergy status to other antibiotic agents; Z88.0 Allergy status to penicillin; Z88.2 Allergy status to sulfonamides; Z53.29 Procedure and treatment not carried out because of patient's decision for other reasons
CPT/HCPCS: 36415; 80053; 83605; 83690; 85025; 81001; 81025; 74018; 99284; 96374; 96375; 96361; J2405; J1885

== ENCOUNTER → 2019-07-24 | Outpatient (CLI) | payer OTHER ==
--- NOTE | 2019-07-24 18:08 | US ---
EXAMINATION TYPE: US pelvis complete transvag DATE OF EXAM: 07/24/2019 COMPARISON: US, CT CLINICAL HISTORY: N83.209 UNSPECIFIED OVARIAN CYST. Patient stated has RLQ pain,diarrhea and intermit tent fever x 5 days; had CT abd and pelvis 07/23/19 at [facility]; G5,P3, menstrual cy breana every 3 months with control; tubal ligation? TECHNIQUE: Transvaginal (TV) and Transabdominal (TA) . Transabdominal sonographic images of the pel vis were acquired. Transvaginal sonographic images were medically necessary to better assess the fol lowing anatomy: endometrium Date of LMP: 05/28/2019 EXAM MEASUREMENTS: Uterus: 7.6 x 4.1 x 4.4 cm Endometrial Stripe: 0.8 cm Right upper endometrium; 0.7cm upper left endometrium with arcuate appeara nce in upper endometrium Right Ovary: 1.6 x 1.0 x 1.9 cm Left Ovary: 2.3 x 2.1 x 1.5 cm 1. Uterus: Anteverted; couple of Nabothian Cysts with larger complex Nabothian Cyst = 0.4 x 0.4 x 0 .4cm 2. Endometrium: arcuate appearance to upper endometrium 3. Right Ovary: small follicles imaged 4. Left Ovary: involuting follicular cyst = 1.4 x 1.4 x 0.9cm Spectral, color and waveform Doppler imaging shows good arterial and venous flow within the ovaries ; there is no evidence for ovarian torsion. 5. Bilateral Adnexa: bowel peristalsing noted in right adnexa and in cul de sac 6. Posterior cul-de-sac: free fluid noted = 0.9 x 1.6 x 1.5cm IMPRESSION: 1. Bilateral ovarian follicles. 2. Small amount of free fluid within the right adnexa and cul-de-sac. 3. Possible arcuate uterus
== END | disposition home or self-care (01) ==
LOC: RADUSWWP 16:51
PROVIDERS: ATTEND Family Medicine
DX: N83.209 Unspecified ovarian cyst, unspecified side (principal)
CPT/HCPCS: 76830; 76856

== ENCOUNTER 2019-09-03 13:06 | Emergency (ER) | payer OTHER ==
[2019-09-03] MEDS ORDERED: KETOROLAC 30 MG/ML 1 ML VIAL IVP STA (13:58)
[2019-09-03] MEDS ORDERED: ONDANSETRON 4 MG/2 ML VIAL IVP STA (13:58)
[2019-09-03] MEDS ORDERED: SODIUM CHLORIDE 0.9% 1,000 ML IV STA (13:58)
--- NOTE | 2019-09-03 14:05 | ED ---
General Adult HPI - General Chief complaint: Vaginal Bleeding Stated complaint: heavy vaginal bleeding Time Seen by Provider: 09/03/19 13:49 Source: patient, RN notes reviewed Mode of arrival: ambulatory Limitations: no limitations - History of Present Illness Initial comments: Patient 29-year-old female presented to the emergency room today with chief complaint of vaginal bleeding over the last 2 days. Patient does admit that she has had some vaginal bleeding. She does admit that it's a bright color. States that she's gone through 5 pads over the last 7 hours. Patient does admit that she's been in contact with her [employer] was advised coming here to the emergency room as there is a history of anemia. States never needed blood transfusion. S he does get iron transfusions. Patient estimates cramping or symptoms. Patient denies any recent fever, chills, shortness of breath, chest pain, back pain, headaches or visual changes, or any other complaints. - Related Data Home Medications Medication Instructions Recorded Confirmed Sertraline HCl [Zoloft] 100 mg PO HS 12/24/18 08/21/19 Ondansetron [Zofran ODT] 4 mg PO BID PRN 02/23/19 08/21/19 Butalb/Asprin/Caff 50-325-40Mg 1 cap PO Q8H PRN 04/20/19 08/21/19 [Fiorinal 50-325-40 MG] busPIRone HCl [Buspar] 10 mg PO TID 04/23/19 08/21/19 Famotidine [Pepcid] 40 mg PO DAILY 08/21/19 08/21/19 Previous Rx's Medication Instructions Recorded Ibuprofen [Motrin] 800 mg PO Q6HR PRN #60 tab 04/14/19 Magnesium Oxide [Mag-Ox] 400 mg PO BID #60 tab 04/25/19 Topiramate [Topamax] 50 mg PO BID #60 tab 04/25/19 methylPREDNISolone Dose Pack 1 mg PO DAILY 7 Days #1 pack 04/25/19 [Medrol Dose Pack] Allergies Allergy/AdvReac Type Severity Reaction Status Date / Time adhesive tape Allergy Rash/Hives Verified 09/03/19 13:16 aloe vera Allergy Rash/Hives Verified 09/03/19 13:16 azithromycin Allergy Rash/Hives Verified 09/03/19 13:16 cephalexin Allergy Rash/Hives Verified 09/03/19 13:16 metronidazole [From Flagyl] Allergy Rash/Hives Verified 09/03/19 13:16 Penicillins Allergy Rash/Hives Verified 09/03/19 13:16 sulfamethoxazole Allergy Rash/Hives Verified 09/03/19 13:16 [From Bactrim] trimethoprim [From Bactrim] Allergy Rash/Hives Verified 09/03/19 13:16 Review of Systems ROS Statement: Those systems with pertinent positive or pertinent negative responses have been documented in the HPI. ROS Other: All systems not noted in ROS Statement are negative. Past Medical History Past Medical History: Blood Disorder, GERD/Reflux Additional Past Medical History / Comment(s): Recent abdominal pain, diarrhea and vomiting. Endometriosis, polycystic ovarian syndrome. IRON DEFICIENCY ANEMIA History of Any Multi-Drug Resistant Organisms: None Reported Past Surgical History: Section, Cholecystectomy, Tubal Ligation Additional Past Surgical History / Comment(s): Laparoscopy X2, Section X3. cyst removed from chest Past Anesthesia/Blood Transfusion Reactions: No Reported Reaction Past Psychological History: Anxiety, Depression Smoking Status: Never smoker Past Alcohol Use History: Rare Past Drug Use History: None Reported - Past Family History Mother Family Medical History: Hyperlipidemia Additional Family Medical History / Comment(s): Depression and anxiety. General Exam - General Exam Comments Initial Comments: General: The patient is awake and alert, in no distress, and does not appear acutely ill. Eye: There is normal conjunctiva bilaterally. No signs of icterus. Neck: The neck is supple, there is no tenderness or JVD. Cardiovascular: There is a regular rate and rhythm. No murmur, rub or gallop is appreciated. Respiratory: Lungs are clear to auscultation, respirations are non-labored, breath sounds are equal. No wheezes, stridor, rales, or rhonchi. Gastrointestinal: Abdomen tenderness in epigastric and upper quadrants. No rebound, guarding or CVA tenderness. Musculoskeletal: Normal ROM, no tenderness. Neurological: A&O x 3. CN II-XII intact, There are no obvious motor or sensory deficits. Coordination appears grossly intact. Speech is normal. Skin: Skin is warm and dry and no rashes or lesions are noted. Psychiatric: Cooperative, appropriate mood & affect, normal judgment. Limitations: no limitations Course Vital Signs 09/03/19 13:13 Temperature 98.3 F Pulse Rate 83 Respiratory 16 Rate Blood Pressure 122/79 O2 Sat by Pulse 100 Oximetry Medical Decision Making - Medical Decision Making Patient reexamined at this time is resting elderly. She does admit that the pain has improved here in emergency room still having some discomfort. Patient was given dose portal. Patient was offered Tylenol as well. She is states that she would like something stronger to help her relieve her pain for the next few hours. Patient labs were reviewed are unremarkable. Patient will be given dose of Tylenol prior to discharge advised follow family doctor. She is advised return if any symptoms increase worsen. She states extending and is in agreement. - Lab Data Result diagrams: 09/03/19 13:42 09/03/19 13:42 Lab Results 09/03/19 09/03/19 09/03/19 Range/Units 13:42 13:42 13:42 WBC 4.9 (3.8-10.6) k/uL RBC 4.02 (3.80-5.40) m/uL Hgb 12.4 (11.4-16.0) gm/dL Hct 37.2 (34.0-46.0) % MCV 92.6 (80.0-100.0) fL MCH 30.7 (25.0-35.0) pg MCHC 33.2 (31.0-37.0) g/dL RDW 13.4 (11.5-15.5) % Plt Count 215 (150-450) k/uL Neutrophils % 68 % Lymphocytes % 26 % Monocytes % 4 % Eosinophils % 1 % Basophils % 0 % Neutrophils # 3.4 (1.3-7.7) k/uL Lymphocytes # 1.3 (1.0-4.8) k/uL Monocytes # 0.2 (0-1.0) k/uL Eosinophils # 0.0 (0-0.7) k/uL Basophils # 0.0 (0-0.2) k/uL Sodium 137 (137-145) mmol/L Potassium 4.4 (3.5-5.1) mmol/L Chloride 109 H (98-107) mmol/L Carbon Dioxide 17 L (22-30) mmol/L Anion Gap 11 mmol/L BUN 10 (7-17) mg/dL Creatinine 0.81 (0.52-1.04) mg/dL Est GFR (CKD-EPI)AfAm >90 (>60 ml/min/1.73 sqM) Est GFR (CKD-EPI)NonAf >90 (>60 ml/min/1.73 sqM) Glucose 86 (74-99) mg/dL Calcium 9.5 (8.4-10.2) mg/dL Total Bilirubin 0.9 (0.2-1.3) mg/dL AST 25 (14-36) U/L ALT 15 (4-34) U/L Alkaline Phosphatase 71 (38-126) U/L Total Protein 7.5 (6.3-8.2) g/dL Albumin 4.3 (3.5-5.0) g/dL Amylase 63 (30-110) U/L Lipase 55 (23-300) U/L Urine Color Urine Appearance (Clear) Urine pH (5.0-8.0) Ur Specific [place] (1.001-1.035) Urine Protein (Negative) Urine Glucose (UA) (Negative) Urine Ketones (Negative) Urine Blood (Negative) Urine Nitrite (Negative) Urine Bilirubin (Negative) Urine Urobilinogen (<2.0) mg/dL Ur Leukocyte Esterase (Negative) Urine RBC (0-5) /hpf Urine WBC (0-5) /hpf Ur Squamous Epith Cells (0-4) /hpf Urine Mucus (None) /hpf Urine HCG, Qual Not Detected (Not Detectd) 09/03/19 Range/Units 13:42 WBC (3.8-10.6) k/uL RBC (3.80-5.40) m/uL Hgb (11.4-16.0) gm/dL Hct (34.0-46.0) % MCV (80.0-100.0) fL MCH (25.0-35.0) pg MCHC (31.0-37.0) g/dL RDW (11.5-15.5) % Plt Count (150-450) k/uL Neutrophils % % Lymphocytes % % Monocytes % % Eosinophils % % Basophils % % Neutrophils # (1.3-7.7) k/uL Lymphocytes # (1.0-4.8) k/uL Monocytes # (0-1.0) k/uL Eosinophils # (0-0.7) k/uL Basophils # (0-0.2) k/uL Sodium (137-145) mmol/L Potassium (3.5-5.1) mmol/L Chloride (98-107) mmol/L Carbon Dioxide (22-30) mmol/L Anion Gap mmol/L BUN (7-17) mg/dL Creatinine (0.52-1.04) mg/dL Est GFR (CKD-EPI)AfAm (>60 ml/min/1.73 sqM) Est GFR (CKD-EPI)NonAf (>60 ml/min/1.73 sqM) Glucose (74-99) mg/dL Calcium (8.4-10.2) mg/dL Total Bilirubin (0.2-1.3) mg/dL AST (14-36) U/L ALT (4-34) U/L Alkaline Phosphatase (38-126) U/L Total Protein (6.3-8.2) g/dL Albumin (3.5-5.0) g/dL Amylase (30-110) U/L Lipase (23-300) U/L Urine Color Light Yellow Urine Appearance Clear (Clear) Urine pH 6.0 (5.0-8.0) Ur Specific [place] 1.019 (1.001-1.035) Urine Protein Negative (Negative) Urine Glucose (UA) Negative (Negative) Urine Ketones Negative (Negative) Urine Blood Moderate H (Negative) Urine Nitrite Negative (Negative) Urine Bilirubin Negative (Negative) Urine Urobilinogen <2.0 (<2.0) mg/dL Ur Leukocyte Esterase Negative (Negative) Urine RBC >182 H (0-5) /hpf Urine WBC 5 (0-5) /hpf Ur Squamous Epith Cells 1 (0-4) /hpf Urine Mucus Rare H (None) /hpf Urine HCG, Qual (Not Detectd) Disposition Clinical Impression: Dysfunctional uterine bleeding Disposition: HOME SELF-CARE Condition: Good Instructions (If sedation given, give patient instructions): Dysmenorrhea (ED) Additional Instructions: Please use medication as discussed. Please follow-up with family doctor/[employer] in the next 2 days of symptoms have not improved. Please return to emergency room if the symptoms increase or worsen or for any other concerns. Is patient prescribed a controlled substance at d/c from ED?: No Referrals: Kirt Noriega MD [Primary Care Provider] - 1-2 days Rita Brewer MD [REFERRING] - 1-2 days Time of Disposition: 15:16
[2019-09-03 14:20] LABS: Basophils % (A) 0 %; Eosinophils % (A) 1 %; HCT 37.2 % (34.0-46.0); HGB 12.4 gm/dL (11.4-16.0); Lymphocytes # (A) 1.3 k/uL (1.0-4.8); Lymphocytes % (A) 26 %; MCH 30.7 pg (25.0-35.0); MCHC 33.2 g/dL (31.0-37.0); MCV 92.6 fL (80.0-100.0); Mean Platelet Volume 8.1; Monocytes # (A) 0.2 k/uL (0-1.0); Monocytes % (A) 4 %; Neutrophils # (A) 3.4 k/uL (1.3-7.7); Neutrophils % (A) 68 %; Platelet Count 215 k/uL (150-450); RBC 4.02 m/uL (3.80-5.40); RDW 13.4 % (11.5-15.5); WBC 4.9 k/uL (3.8-10.6)
[2019-09-03 14:46] LABS: ALT 15 U/L (4-34); AST 25 U/L (14-36); African American GFR (CKD) >90 (>60 ml/min/1.73 sqM); Albumin 4.3 g/dL (3.5-5.0); Alkaline Phosphatase 71 U/L (38-126); Amylase 63 U/L (30-110); Anion Gap 11 mmol/L; Blood Urea Nitrogen 10 mg/dL (7-17); Calcium 9.5 mg/dL (8.4-10.2); Carbon Dioxide 17 mmol/L (22-30); Chloride 109 mmol/L (98-107); Glucose 86 mg/dL (74-99); Non-African American GFR(CKD) >90 (>60 ml/min/1.73 sqM); Sodium 137 mmol/L (137-145); Total Bilirubin 0.9 mg/dL (0.2-1.3); Total Protein 7.5 g/dL (6.3-8.2)
[2019-09-03 14:57] LABS: Potassium 4.4 mmol/L (3.5-5.1)
[2019-09-03 15:02] LABS: Appearance,Urine Clear (Clear); Bilirubin,Urine Negative (Negative); Blood,Urine Moderate (Negative); Color,Urine Light Yellow; Glucose,Urine (UA) Negative (Negative); Ketones,Urine Negative (Negative); Leukocyte Esterase,Urine Negative (Negative); Mucus,Urine Rare /hpf; Nitrite,Urine Negative (Negative); Protein,Urine Negative (Negative); RBC,Urine >182 /hpf (0-5); Specific Gravity,Urine 1.019 (1.001-1.035); Squamous Epithelial Cell,Urine 1 /hpf (0-4); Urobilinogen,Urine <2.0 mg/dL (<2.0); WBC,Urine 5 /hpf (0-5)
[2019-09-03] MEDS ORDERED: ACETAMINOPHEN TAB 500 MG TAB PO STA (15:16)
[2019-09-03 15:30] VITALS: BP 126/77; PULSE 69; RESP 18; TEMP 97.6
== END 2019-09-03 15:36 | disposition home or self-care (01) ==
LOC: EC 13:06
DX: N93.8 Other specified abnormal uterine and vaginal bleeding (principal); E28.2 Polycystic ovarian syndrome; F41.9 Anxiety disorder, unspecified; F32.9 Major depressive disorder, single episode, unspecified; K21.9 Gastro-esophageal reflux disease without esophagitis; Z79.899 Other long term (current) drug therapy; Z88.1 Allergy status to other antibiotic agents; Z88.2 Allergy status to sulfonamides; Z88.0 Allergy status to penicillin; Z91.048 Other nonmedicinal substance allergy status; Z87.19 Personal history of other diseases of the digestive system; Z98.890 Other specified postprocedural states; Z90.49 Acquired absence of other specified parts of digestive tract
CPT/HCPCS: 36415; 80053; 82150; 83690; 85025; 81001; 99284; 96374; 96375; 96361; 81025; J2405; J1885

== ENCOUNTER 2019-09-16 18:15 | Emergency (ER) | payer OTHER ==
[2019-09-16] MEDS ORDERED: SODIUM CHLORIDE 0.9% 1,000 ML IV STA (18:39)
[2019-09-16] MEDS ORDERED: ONDANSETRON 4 MG/2 ML VIAL IVP STA (18:39)
[2019-09-16] MEDS ORDERED: HYDROmorphone 0.5 MG/0.5 ML SYRINGE IVP STA ×2 (18:39→19:45)
[2019-09-16 18:57] LABS: Appearance,Urine Clear (Clear); Bilirubin,Urine Negative (Negative); Blood,Urine Negative (Negative); Color,Urine Yellow; Glucose,Urine (UA) Negative (Negative); Ketones,Urine Negative (Negative); Leukocyte Esterase,Urine Negative (Negative); Nitrite,Urine Negative (Negative); PH, Urine 6.5 (5.0-8.0); Protein,Urine Negative (Negative); Urobilinogen,Urine <2.0 mg/dL (<2.0)
--- NOTE | 2019-09-16 19:02 | ED ---
Abdominal Pain HPI - General Chief Complaint: Abdominal Pain Stated Complaint: abdominal pain Time Seen by Provider: 09/16/19 18:29 Source: patient Mode of arrival: ambulatory Limitations: no limitations - History of Present Illness Initial Comments: 29-year-old female patient presents to the emergency department today for evaluation of right lower quadrant abdominal pain and discomfort. Patient states that she has had a "bubble" to the region for the last few weeks. Patient states that she saw her primary care physician on Saturday to evaluate this, her physician was concerned she may have a hernia as a Center for further testing. Patient underwent ultrasound this morning. States that since the ultrasound her abdomen has been hurting worse. States that she has been nauseated from the pain. Unable to eat or drink. She denies any vomiting or diarrhea. States she has not had a bowel movement for the last 2-3 days. States she is passing gas. Denies any hematuria, dysuria, urinary frequency, urinary urgency. Patient has had tubal ligation in the past and does take a control. She does not believe she is . Last period was about 2 weeks ago. Patient denies any recent rash, shortness breath, chest pain, back pain, numbness, tingling, dizziness, weakness, headache, visual changes, or any other complaints. - Related Data Home Medications Medication Instructions Recorded Confirmed Sertraline HCl [Zoloft] 100 mg PO HS 12/24/18 08/21/19 Ondansetron [Zofran ODT] 4 mg PO BID PRN 02/23/19 08/21/19 Butalb/Asprin/Caff 50-325-40Mg 1 cap PO Q8H PRN 04/20/19 08/21/19 [Fiorinal 50-325-40 MG] busPIRone HCl [Buspar] 10 mg PO TID 04/23/19 08/21/19 Famotidine [Pepcid] 40 mg PO DAILY 08/21/19 08/21/19 Previous Rx's Medication Instructions Recorded Ibuprofen [Motrin] 800 mg PO Q6HR PRN #60 tab 04/14/19 Magnesium Oxide [Mag-Ox] 400 mg PO BID #60 tab 04/25/19 Topiramate [Topamax] 50 mg PO BID #60 tab 04/25/19 methylPREDNISolone Dose Pack 1 mg PO DAILY 7 Days #1 pack 04/25/19 [Medrol Dose Pack] Allergies Allergy/AdvReac Type Severity Reaction Status Date / Time adhesive tape Allergy Rash/Hives Verified 09/16/19 18:21 aloe vera Allergy Rash/Hives Verified 09/16/19 18:21 azithromycin Allergy Rash/Hives Verified 09/16/19 18:21 cephalexin Allergy Rash/Hives Verified 09/16/19 18:21 metronidazole [From Flagyl] Allergy Rash/Hives Verified 09/16/19 18:21 Penicillins Allergy Rash/Hives Verified 09/16/19 18:21 sulfamethoxazole Allergy Rash/Hives Verified 09/16/19 18:21 [From Bactrim] trimethoprim [From Bactrim] Allergy Rash/Hives Verified 09/16/19 18:21 Review of Systems ROS Statement: Those systems with pertinent positive or pertinent negative responses have been documented in the HPI. ROS Other: All systems not noted in ROS Statement are negative. Past Medical History Past Medical History: Blood Disorder, GERD/Reflux Additional Past Medical History / Comment(s): Endometriosis, polycystic ovarian syndrome. IRON DEFICIENCY ANEMIA History of Any Multi-Drug Resistant Organisms: None Reported Past Surgical History: Section, Cholecystectomy, Tubal Ligation Additional Past Surgical History / Comment(s): Laparoscopy X2, Section X3. cyst removed from chest Past Anesthesia/Blood Transfusion Reactions: No Reported Reaction Past Psychological History: Anxiety, Depression Smoking Status: Never smoker Past Alcohol Use History: Rare Past Drug Use History: None Reported - Past Family History Mother Family Medical History: Hyperlipidemia Additional Family Medical History / Comment(s): Depression and anxiety. General Exam Limitations: no limitations General appearance: alert, in no apparent distress, other (This is a well- developed, well-nourished adult female patient in no acute distress. Vital signs upon presentation are temperature 97.7F and pulse 95, respirations 18, blood pressure 127/85, pulse ox 100% on room air.) Eye exam: Present: normal appearance, PERRL, EOMI. Absent: scleral icterus, conjunctival injection, periorbital swelling ENT exam: Present: normal exam, normal oropharynx, mucous membranes moist Respiratory exam: Present: normal lung sounds bilaterally. Absent: respiratory distress, wheezes, rales, rhonchi, stridor Cardiovascular Exam: Present: regular rate, normal rhythm, normal heart sounds. Absent: systolic murmur, diastolic murmur, rubs, gallop, clicks GI/Abdominal exam: Present: soft, tenderness (Right lower quadrant tenderness), normal bowel sounds. Absent: distended, guarding, rebound, rigid Neurological exam: Present: alert, oriented X3, CN II-XII intact Psychiatric exam: Present: normal affect, normal mood Skin exam: Present: warm, dry, intact, normal color. Absent: rash Course Vital Signs 09/16/19 18:17 Temperature 97.7 F Pulse Rate 95 Respiratory 18 Rate Blood Pressure 127/85 O2 Sat by Pulse 100 Oximetry Medical Decision Making - Medical Decision Making 29-year-old female patient presents to the emergency department today for evaluation of right lower quadrant abdominal pain. Patient states that she has had this pain for the last month. Patient states she has a "bubble" over the right lower quadrant. Physical examination is unremarkable. Did not appreciate any bulging, hernia, or abnormalities with palpation to the lower abdomen. She did have some tenderness over the right lower quadrant. Labs reviewed and revealed normal white blood cell count normal lactic acid. Urinalysis is negative, hCG was negative. Patient be discharged follow up with her primary care physician for further evaluation of this chronic pain. Return parameters were discussed in detail. She verbalizes understanding and agrees with this plan. - Lab Data Result diagrams: 09/16/19 19:00 09/16/19 19:00 Lab Results 09/16/19 09/16/19 09/16/19 Range/Units 18:45 18:45 19:00 WBC (3.8-10.6) k/uL RBC (3.80-5.40) m/uL Hgb (11.4-16.0) gm/dL Hct (34.0-46.0) % MCV (80.0-100.0) fL MCH (25.0-35.0) pg MCHC (31.0-37.0) g/dL RDW (11.5-15.5) % Plt Count (150-450) k/uL Neutrophils % % Lymphocytes % % Monocytes % % Eosinophils % % Basophils % % Neutrophils # (1.3-7.7) k/uL Lymphocytes # (1.0-4.8) k/uL Monocytes # (0-1.0) k/uL Eosinophils # (0-0.7) k/uL Basophils # (0-0.2) k/uL Sodium 138 (137-145) mmol/L Potassium 3.7 (3.5-5.1) mmol/L Chloride 106 (98-107) mmol/L Carbon Dioxide 22 (22-30) mmol/L Anion Gap 10 mmol/L BUN 12 (7-17) mg/dL Creatinine 0.86 (0.52-1.04) mg/dL Est GFR (CKD-EPI)AfAm >90 (>60 ml/min/1.73 sqM) Est GFR (CKD-EPI)NonAf >90 (>60 ml/min/1.73 sqM) Glucose 93 (74-99) mg/dL Plasma Lactic Acid [place] (0.7-2.0) mmol/L Calcium 9.5 (8.4-10.2) mg/dL Total Bilirubin 0.4 (0.2-1.3) mg/dL AST 17 (14-36) U/L ALT 10 (4-34) U/L Alkaline Phosphatase 63 (38-126) U/L Total Protein 7.6 (6.3-8.2) g/dL Albumin 4.5 (3.5-5.0) g/dL Amylase 50 (30-110) U/L Lipase 34 (23-300) U/L Urine Color Yellow Urine Appearance Clear (Clear) Urine pH 6.5 (5.0-8.0) Ur Specific [place] 1.020 (1.001-1.035) Urine Protein Negative (Negative) Urine Glucose (UA) Negative (Negative) Urine Ketones Negative (Negative) Urine Blood Negative (Negative) Urine Nitrite Negative (Negative) Urine Bilirubin Negative (Negative) Urine Urobilinogen <2.0 (<2.0) mg/dL Ur Leukocyte Esterase Negative (Negative) Urine HCG, Qual Not Detected (Not Detectd) 09/16/19 09/16/19 Range/Units 19:00 19:00 WBC 4.5 (3.8-10.6) k/uL RBC 4.03 (3.80-5.40) m/uL Hgb 12.0 (11.4-16.0) gm/dL Hct 36.5 (34.0-46.0) % MCV 90.6 (80.0-100.0) fL MCH 29.8 (25.0-35.0) pg MCHC 32.8 (31.0-37.0) g/dL RDW 13.3 (11.5-15.5) % Plt Count 207 (150-450) k/uL Neutrophils % 63 % Lymphocytes % 30 % Monocytes % 4 % Eosinophils % 0 % Basophils % 0 % Neutrophils # 2.9 (1.3-7.7) k/uL Lymphocytes # 1.4 (1.0-4.8) k/uL Monocytes # 0.2 (0-1.0) k/uL Eosinophils # 0.0 (0-0.7) k/uL Basophils # 0.0 (0-0.2) k/uL Sodium (137-145) mmol/L Potassium (3.5-5.1) mmol/L Chloride (98-107) mmol/L Carbon Dioxide (22-30) mmol/L Anion Gap mmol/L BUN (7-17) mg/dL Creatinine (0.52-1.04) mg/dL Est GFR (CKD-EPI)AfAm (>60 ml/min/1.73 sqM) Est GFR (CKD-EPI)NonAf (>60 ml/min/1.73 sqM) Glucose (74-99) mg/dL Plasma Lactic Acid [place] 0.6 L (0.7-2.0) mmol/L Calcium (8.4-10.2) mg/dL Total Bilirubin (0.2-1.3) mg/dL AST (14-36) U/L ALT (4-34) U/L Alkaline Phosphatase (38-126) U/L Total Protein (6.3-8.2) g/dL Albumin (3.5-5.0) g/dL Amylase (30-110) U/L Lipase (23-300) U/L Urine Color Urine Appearance (Clear) Urine pH (5.0-8.0) Ur Specific [place] (1.001-1.035) Urine Protein (Negative) Urine Glucose (UA) (Negative) Urine Ketones (Negative) Urine Blood (Negative) Urine Nitrite (Negative) Urine Bilirubin (Negative) Urine Urobilinogen (<2.0) mg/dL Ur Leukocyte Esterase (Negative) Urine HCG, Qual (Not Detectd) - Radiology Data Radiology results: report reviewed, image reviewed Two-view x-ray of the abdomen is obtained. Report reviewed in its entirety. Impression by Dr. Melgar shows nonacute abdomen. No change. Disposition Clinical Impression: Abdominal pain Disposition: HOME SELF-CARE Condition: Good Instructions (If sedation given, give patient instructions): Abdominal Pain (ED) Additional Instructions: Increase fluids. Rest. Take, Motrin for pain control. Follow-up with your primary care physician for recheck in 1-2 days. Return to the emergency department immediately for any new, worsening, or concerning symptoms. Is patient prescribed a controlled substance at d/c from ED?: No Referrals: Kirt Noriega MD [Primary Care Provider] - 1-2 days Time of Disposition: 19:46
[2019-09-16 19:14] LABS: Basophils % (A) 0 %; Eosinophils % (A) 0 %; HCT 36.5 % (34.0-46.0); Lymphocytes # (A) 1.4 k/uL (1.0-4.8); Lymphocytes % (A) 30 %; MCH 29.8 pg (25.0-35.0); MCHC 32.8 g/dL (31.0-37.0); MCV 90.6 fL (80.0-100.0); Mean Platelet Volume 7.8; Monocytes # (A) 0.2 k/uL (0-1.0); Monocytes % (A) 4 %; Neutrophils # (A) 2.9 k/uL (1.3-7.7); Neutrophils % (A) 63 %; Platelet Count 207 k/uL (150-450); RBC 4.03 m/uL (3.80-5.40); RDW 13.3 % (11.5-15.5); WBC 4.5 k/uL (3.8-10.6)
--- NOTE | 2019-09-16 19:16 | XR ---
EXAMINATION TYPE: XR KUB DATE OF EXAM: 09/16/2019 COMPARISON: 07/22/2019 HISTORY: Abdominal pain TECHNIQUE: 2 views upright FINDINGS: No sign of intestinal obstruction or pneumoperitoneum. Bowel gas pattern is normal. There a re clips from cholecystectomy. Lung bases are clear. There are clips from tubal ligation. IMPRESSION: Nonacute abdomen. No change.
[2019-09-16 19:21] LABS: ALT 10 U/L (4-34); AST 17 U/L (14-36); African American GFR (CKD) >90 (>60 ml/min/1.73 sqM); Albumin 4.5 g/dL (3.5-5.0); Alkaline Phosphatase 63 U/L (38-126); Amylase 50 U/L (30-110); Anion Gap 10 mmol/L; Blood Urea Nitrogen 12 mg/dL (7-17); Calcium 9.5 mg/dL (8.4-10.2); Carbon Dioxide 22 mmol/L (22-30); Chloride 106 mmol/L (98-107); Glucose 93 mg/dL (74-99); Non-African American GFR(CKD) >90 (>60 ml/min/1.73 sqM); Potassium 3.7 mmol/L (3.5-5.1); Sodium 138 mmol/L (137-145); Total Bilirubin 0.4 mg/dL (0.2-1.3); Total Protein 7.6 g/dL (6.3-8.2)
[2019-09-16 19:51] VITALS: BP 120/70; TEMP 98
[2019-09-16 20:04] VITALS: PULSE 82; RESP 18
== END 2019-09-16 20:15 | disposition home or self-care (01) ==
LOC: EC 18:15
DX: R10.31 Right lower quadrant pain (principal); G89.29 Other chronic pain; R11.0 Nausea; R14.3 Flatulence; K21.9 Gastro-esophageal reflux disease without esophagitis; F32.9 Major depressive disorder, single episode, unspecified; F41.9 Anxiety disorder, unspecified; Z88.0 Allergy status to penicillin; Z88.1 Allergy status to other antibiotic agents; Z88.2 Allergy status to sulfonamides; Z91.048 Other nonmedicinal substance allergy status; Z79.899 Other long term (current) drug therapy; Z98.51 Tubal ligation status; Z90.49 Acquired absence of other specified parts of digestive tract
CPT/HCPCS: 36415; 80053; 82150; 83605; 83690; 85025; 81003; 81025; 74018; 99284; 96374; 96375; 96376; 96361; J2405; J1170

== ENCOUNTER → 2019-09-16 | Outpatient (CLI) | payer OTHER ==
--- NOTE | 2019-09-16 10:25 | US ---
EXAMINATION TYPE: US abdomen limited DATE OF EXAM: 09/16/2019 COMPARISON: NONE CLINICAL HISTORY: K43.9 Ventral hernia without obstruction or gangre. Patient states pain in the RLQ and feeling a bulge. Assess for hernia at location of: RLQ Abdomen wall Area of concern scanned. Valsalva maneuvers performed. Contralateral image taken. No prominent hernia visualized at time of study. IMPRESSION: No sonographic evidence to suggest hernia at this time. Real-time scanning was performed by the sustainable products marketing manager utilizing Valsalva and additional dynamic maneuve rs to assess for hernia. Images of the contralateral side were also acquired for direct comparison.
== END | disposition home or self-care (01) ==
LOC: RADUSWWP 09:48
PROVIDERS: ATTEND Family Medicine
DX: K43.9 Ventral hernia without obstruction or gangrene (principal)
CPT/HCPCS: 76705

== ENCOUNTER 2019-09-17 16:18 | Emergency (ER) | payer OTHER ==
[2019-09-17 16:26] VITALS: RESP 16
[2019-09-17 17:09] LABS: Basophils % (A) 0 %; Eosinophils % (A) 1 %; HCT 34.4 % (34.0-46.0); HGB 11.2 gm/dL (11.4-16.0); Lymphocytes # (A) 1.3 k/uL (1.0-4.8); Lymphocytes % (A) 29 %; MCH 29.7 pg (25.0-35.0); MCHC 32.7 g/dL (31.0-37.0); MCV 90.8 fL (80.0-100.0); Mean Platelet Volume 7.7; Monocytes # (A) 0.2 k/uL (0-1.0); Monocytes % (A) 5 %; Neutrophils # (A) 2.8 k/uL (1.3-7.7); Neutrophils % (A) 63 %; Platelet Count 216 k/uL (150-450); RBC 3.79 m/uL (3.80-5.40); RDW 13.2 % (11.5-15.5); WBC 4.5 k/uL (3.8-10.6)
[2019-09-17 17:17] LABS: ALT 10 U/L (4-34); AST 17 U/L (14-36); African American GFR (CKD) >90 (>60 ml/min/1.73 sqM); Albumin 4.1 g/dL (3.5-5.0); Alkaline Phosphatase 52 U/L (38-126); Anion Gap 11 mmol/L; Blood Urea Nitrogen 13 mg/dL (7-17); Calcium 9.2 mg/dL (8.4-10.2); Carbon Dioxide 19 mmol/L (22-30); Chloride 109 mmol/L (98-107); Glucose 96 mg/dL (74-99); Non-African American GFR(CKD) 87 (>60 ml/min/1.73 sqM); Sodium 139 mmol/L (137-145); Total Bilirubin 0.3 mg/dL (0.2-1.3); Total Protein 7.1 g/dL (6.3-8.2)
--- NOTE | 2019-09-17 17:22 | CT ---
EXAMINATION TYPE: CT abdomen pelvis w con DATE OF EXAM: 09/17/2019 COMPARISON: None HISTORY: Right lower quadrant pain and bulging. CT DLP: 942.8 mGycm Automated exposure control for dose reduction was used. CONTRAST: Performed with IV Contrast, patient injected with 100 mL of Isovue M300. Multiple axial sections were obtained from the diaphragm to the floor the pelvis with intravenous con trast. Lung bases are clear. There is no pleural effusion. Heart size is normal. There is small hiatal herni a. Liver spleen pancreas appear normal. Bile ducts are not dilated. There are clips from cholecystect priti. There is no adrenal mass. Kidneys show satisfactory contrast opacification. There is no hydronep hrosis. There is no retroperitoneal adenopathy. Ureters are not dilated. There is no inguinal hernia. Bladder distends smoothly. There is no evidence of a pelvic mass. Uterus is anteverted. There are clips from tubal ligation. Lumbar vertebra have normal spacing and alignment. Posterior elements are intact. Th ere is no compression fracture. Bony pelvis is intact. Hip joints appear normal. There is no mesenteric edema. Appendix appears normal. Appendix is lateral and posterior. There is no ascites. There is no free air. There is no sign of a bowel obstruction. Delayed images show normal r enal excretion. There is no evidence of a soft tissue mass. I see no right lower quadrant mass. No ev idence of a hernia. IMPRESSION: Small hiatal hernia. Negative CT scan of the abdomen and pelvis. Normal appendix. No evidence of a ri ght lower quadrant mass.
--- NOTE | 2019-09-17 17:34 | ED ---
Abdominal Pain HPI - General Chief Complaint: Abdominal Pain Stated Complaint: Abd pain Time Seen by Provider: 09/17/19 16:30 Source: patient Mode of arrival: ambulatory Limitations: no limitations - History of Present Illness Initial Comments: 29-year-old female presenting today for chief complaint right lower abdominal pain. She states it feels like her abdomen she states is not in the lower pelvic region denies a vaginal discharge bleeding denies denies dysuria urgency frequency hematuria or fevers. Patient states no changes in appetite. Patient without doubt pain is dull aching pretty consistent for the past 2 weeks. Patient denies any diarrhea denies vomiting. Patient states that the pain medication she received yesterday seemed to help however when they were off the pain was back. Patient denies any other complaints she denies any chest pain denies shortness of breath denies back pain and flank pain upon arrival patient does appear well vital signs stable no signs of acute distress she appears nontoxic. - Related Data Home Medications Medication Instructions Recorded Confirmed Sertraline HCl [Zoloft] 100 mg PO HS 12/24/18 08/21/19 Ondansetron [Zofran ODT] 4 mg PO BID PRN 02/23/19 08/21/19 Butalb/Asprin/Caff 50-325-40Mg 1 cap PO Q8H PRN 04/20/19 08/21/19 [Fiorinal 50-325-40 MG] busPIRone HCl [Buspar] 10 mg PO TID 04/23/19 08/21/19 Famotidine [Pepcid] 40 mg PO DAILY 08/21/19 08/21/19 Previous Rx's Medication Instructions Recorded Ibuprofen [Motrin] 800 mg PO Q6HR PRN #60 tab 04/14/19 Magnesium Oxide [Mag-Ox] 400 mg PO BID #60 tab 04/25/19 Topiramate [Topamax] 50 mg PO BID #60 tab 04/25/19 methylPREDNISolone Dose Pack 1 mg PO DAILY 7 Days #1 pack 04/25/19 [Medrol Dose Pack] Allergies Allergy/AdvReac Type Severity Reaction Status Date / Time adhesive tape Allergy Rash/Hives Verified 09/17/19 16:25 aloe vera Allergy Rash/Hives Verified 09/17/19 16:25 azithromycin Allergy Rash/Hives Verified 02/27/20 16:25 cephalexin Allergy Rash/Hives Verified 09/17/19 16:25 metronidazole [From Flagyl] Allergy Rash/Hives Verified 09/17/19 16:25 Penicillins Allergy Rash/Hives Verified 09/17/19 16:25 sulfamethoxazole Allergy Rash/Hives Verified 09/17/19 16:25 [From Bactrim] trimethoprim [From Bactrim] Allergy Rash/Hives Verified 09/17/19 16:25 Review of Systems ROS Statement: Those systems with pertinent positive or pertinent negative responses have been documented in the HPI. ROS Other: All systems not noted in ROS Statement are negative. Past Medical History Past Medical History: Blood Disorder, GERD/Reflux Additional Past Medical History / Comment(s): Endometriosis, polycystic ovarian syndrome. IRON DEFICIENCY ANEMIA History of Any Multi-Drug Resistant Organisms: None Reported Past Surgical History: Section, Cholecystectomy, Tubal Ligation Additional Past Surgical History / Comment(s): Laparoscopy X2, Section X3. cyst removed from chest Past Anesthesia/Blood Transfusion Reactions: No Reported Reaction Past Psychological History: Anxiety, Depression Smoking Status: Never smoker Past Alcohol Use History: Rare Past Drug Use History: None Reported - Past Family History Mother Family Medical History: Hyperlipidemia Additional Family Medical History / Comment(s): Depression and anxiety. General Exam - General Exam Comments Initial Comments: General: The patient is awake and alert, in no distress, and does not appear acutely ill. Eye: +3 mm pupils are equal, round and reactive to light, extra-ocular movements are intact. No nystagmus. There is normal conjunctiva bilaterally. No signs of icterus. Cardiovascular: There is a regular rate and rhythm. No murmur, rub or gallop is appreciated. Respiratory: Lungs are clear to auscultation, respirations are non-labored, breath sounds are equal. No wheezes, stridor, rales, or rhonchi. Gastrointestinal: Soft, non-distended, mild tenderness to palpation of the rightabdomen without masses or organomegaly noted. There is no rebound or guarding present. Musculoskeletal: Normal ROM, no tenderness. Strength 5/5. Sensation intact. Radial pulses equal bilaterally 2+. Neurological: A&O x 3. CN II-XII intact grossly, There are no obvious motor or sensory deficits. Coordination appears grossly intact. Speech is normal. Skin: Skin is warm and dry and no rashes or lesions are noted. Psychiatric: Cooperative, appropriate mood & affect, normal judgment. Limitations: no limitations Course Vital Signs 09/17/19 09/17/19 16:23 17:55 Temperature 99 F 98.9 F Pulse Rate 90 87 Respiratory 16 16 Rate Blood Pressure 133/84 130/78 O2 Sat by Pulse 100 98 Oximetry Medical Decision Making - Medical Decision Making 29-year-old feel presenting for 2 weeks of right-sided abdominal pain no upper abdominal pain laboratory studies stable comparison with yesterday's as patient previously presented. Denies changes in pain or increase, just persistence. CT revealed no acute intra-abdominal process. There is noted a hiatal hernia which patient is aware of. There is no upper abdominal pain and vomiting. No leukocytosis. Patient denies any vaginal rectal bleeding she appears well requesting pain medications patient was provided Toradol emergency department at this time do feel she is stable for discharge with outpatient primary and GI follow-up. Patient is agreeable to this Plan and discharged this time. Discussed case with attending provider - Lab Data Result diagrams: 09/17/19 16:55 09/17/19 16:55 Lab Results 09/17/19 09/17/19 Range/Units 16:55 16:55 WBC 4.5 (3.8-10.6) k/uL RBC 3.79 L (3.80-5.40) m/uL Hgb 11.2 L (11.4-16.0) gm/dL Hct 34.4 (34.0-46.0) % MCV 90.8 (80.0-100.0) fL MCH 29.7 (25.0-35.0) pg MCHC 32.7 (31.0-37.0) g/dL RDW 13.2 (11.5-15.5) % Plt Count 216 (150-450) k/uL Neutrophils % 63 % Lymphocytes % 29 % Monocytes % 5 % Eosinophils % 1 % Basophils % 0 % Neutrophils # 2.8 (1.3-7.7) k/uL Lymphocytes # 1.3 (1.0-4.8) k/uL Monocytes # 0.2 (0-1.0) k/uL Eosinophils # 0.0 (0-0.7) k/uL Basophils # 0.0 (0-0.2) k/uL Sodium 139 (137-145) mmol/L Potassium 4.0 (3.5-5.1) mmol/L Chloride 109 H (98-107) mmol/L Carbon Dioxide 19 L (22-30) mmol/L Anion Gap 11 mmol/L BUN 13 (7-17) mg/dL Creatinine 0.90 (0.52-1.04) mg/dL Est GFR (CKD-EPI)AfAm >90 (>60 ml/min/1.73 sqM) Est GFR (CKD-EPI)NonAf 87 (>60 ml/min/1.73 sqM) Glucose 96 (74-99) mg/dL Calcium 9.2 (8.4-10.2) mg/dL Total Bilirubin 0.3 (0.2-1.3) mg/dL AST 17 (14-36) U/L ALT 10 (4-34) U/L Alkaline Phosphatase 52 (38-126) U/L Total Protein 7.1 (6.3-8.2) g/dL Albumin 4.1 (3.5-5.0) g/dL Disposition Clinical Impression: Abdominal pain Disposition: HOME SELF-CARE Condition: Good Instructions (If sedation given, give patient instructions): Abdominal Pain (ED) Additional Instructions: Please use medication as discussed. Please follow-up with family doctor in the next 2 days. Please return to emergency room if the symptoms increase or worsen or for any other concerns. Is patient prescribed a controlled substance at d/c from ED?: No Referrals: Kirt Noriega MD [Primary Care Provider] - 1-2 days Time of Disposition: 17:34
[2019-09-17] MEDS ORDERED: KETOROLAC 30 MG/ML 1 ML VIAL IVP STA (17:38)
[2019-09-17 17:56] VITALS: BP 130/78; PULSE 87; TEMP 98.9
== END 2019-09-17 17:55 | disposition home or self-care (01) ==
LOC: EC 16:18
DX: R10.31 Right lower quadrant pain (principal); K44.9 Diaphragmatic hernia without obstruction or gangrene; K21.9 Gastro-esophageal reflux disease without esophagitis; F32.9 Major depressive disorder, single episode, unspecified; F41.9 Anxiety disorder, unspecified; Z88.0 Allergy status to penicillin; Z88.1 Allergy status to other antibiotic agents; Z88.2 Allergy status to sulfonamides; Z91.048 Other nonmedicinal substance allergy status; Z79.899 Other long term (current) drug therapy; Z90.49 Acquired absence of other specified parts of digestive tract
CPT/HCPCS: 36415; 80053; 85025; 74177; 99284; 96374; J1885; Q9967

== ENCOUNTER 2019-10-22 12:09 | Emergency (ER) | payer OTHER ==
[2019-10-22] MEDS ORDERED: SODIUM CHLORIDE 0.9% 1,000 ML IV ONE (12:10)
[2019-10-22 12:13] VITALS: RESP 18; TEMP 98.6
--- NOTE | 2019-10-22 12:17 | ED ---
General Adult HPI - General Stated complaint: syncope Time Seen by Provider: 10/22/19 12:10 Source: patient, RN notes reviewed, old records reviewed - History of Present Illness Initial comments: This is a 29-year-old female presents emergency department via EMS. Patient states she was just done getting her kids drinks when she felt lightheaded and sat down the couch and she believes she may have passed out. Patient states w hen she awoke the TV shows on the same show that she had been previously watching with her kids. Patient denies any headache patient denies any numbness or weakness. Patient states she had been feeling a little dizzy over the last few days. Patient states she's not been eating regularly because she has a toothache in her right upper molar. Patient denies any recent fever chills or cough. Patient denies any chest pain palpitations difficulty breathing. Patient states she is mildly nauseated but has not vomited she denies any diarrhea. - Related Data Home Medications Medication Instructions Recorded Confirmed Sertraline HCl [Zoloft] 100 mg PO HS 12/24/18 10/22/19 DULoxetine HCL 40 mg PO BID 10/22/19 10/22/19 Daysee 1 tab PO HS 10/22/19 10/22/19 Doxycycline Hyclate 100 mg PO BID 10/22/19 10/22/19 Lidocaine Viscous 2% [Xylocaine 15 ml MUCOUS MEM Q3H PRN 10/22/19 10/22/19 Viscous] Omeprazole [PriLOSEC] 40 mg PO DAILY 10/22/19 10/22/19 Ondansetron Odt [Zofran Odt] 8 mg PO DAILY PRN 10/22/19 10/22/19 SUMAtriptan SUCCINATE [Imitrex] 25 mg PO DAILY PRN 10/22/19 10/22/19 Topiramate [Topamax] 50 mg PO BID 10/22/19 10/22/19 Previous Rx's Medication Instructions Recorded Magnesium Oxide [Mag-Ox] 400 mg PO BID #60 tab 04/25/19 Clindamycin HCl 300 mg PO Q6H 7 Days #28 cap 10/22/19 Ibuprofen [Motrin] 600 mg PO Q6HR PRN #20 tab 10/22/19 Allergies Allergy/AdvReac Type Severity Reaction Status Date / Time adhesive tape Allergy Rash/Hives Verified 10/22/19 13:22 aloe vera Allergy Rash/Hives Verified 10/22/19 13:22 azithromycin Allergy Rash/Hives Verified 10/22/19 13:22 cephalexin Allergy Rash/Hives Verified 10/22/19 13:22 metronidazole [From Flagyl] Allergy Rash/Hives Verified 10/22/19 13:22 Penicillins Allergy Rash/Hives Verified 10/22/19 13:22 sulfamethoxazole Allergy Rash/Hives Verified 10/22/19 13:22 [From Bactrim] trimethoprim [From Bactrim] Allergy Rash/Hives Verified 10/22/19 13:22 Review of Systems ROS Statement: Those systems with pertinent positive or pertinent negative responses have been documented in the HPI. ROS Other: All systems not noted in ROS Statement are negative. Past Medical History Past Medical History: Blood Disorder, GERD/Reflux Additional Past Medical History / Comment(s): Endometriosis, polycystic ovarian syndrome. IRON DEFICIENCY ANEMIA History of Any Multi-Drug Resistant Organisms: None Reported Past Surgical History: Section, Cholecystectomy, Tubal Ligation Additional Past Surgical History / Comment(s): Laparoscopy X2, Section X3. cyst removed from chest Past Anesthesia/Blood Transfusion Reactions: No Reported Reaction Smoking Status: Never smoker - Past Family History Mother Family Medical History: Hyperlipidemia Additional Family Medical History / Comment(s): Depression and anxiety. General Exam - General Exam Comments Initial Comments: GENERAL: Patient is well-developed and well-nourished. Patient is nontoxic and well- hydrated and is in mild distress. ENT: Neck is soft and supple. No significant lymphadenopathy is noted. Oropharynx is clear. Moist mucous membranes. Patient's left upper molar is coming in about of 30 angle. Patient states is very tender to palpation. EYES: The sclera were anicteric and conjunctiva were pink and moist. Extraocular movements were intact and pupils were equal round and reactive to light. Eyel ids were unremarkable. PULMONARY: Unlabored respirations. Good breath sounds bilaterally. No audible rales rhonchi or wheezing was noted. CARDIOVASCULAR: There is a regular rate and rhythm without any murmurs gallops or rubs. ABDOMEN: Soft and nontender with normal bowel sounds. SKIN: Skin is clear with no lesions or rashes and otherwise unremarkable. NEUROLOGIC: Patient is alert and oriented x3. Cranial nerves II through XII are grossly intact. Motor and sensory are also intact. Normal speech, volume and content. Symmetrical smile. MUSCULOSKELETAL: Normal extremities with adequate strength and full range of motion. No lower extremity swelling or edema. No calf tenderness. LYMPHATICS: No significant lymphadenopathy is noted PSYCHIATRIC: Normal psychiatric evaluation. Course Vital Signs 10/22/19 10/22/19 12:10 12:20 Temperature 98.6 F Pulse Rate 105 H Pulse Rate [ 88 Sitting Pulse Oximetery] Pulse Rate [ 91 Standing Pulse Oximetery] Pulse Rate [ 82 Supine Pulse Oximetery] Respiratory 18 18 Rate Blood Pressure 129/79 Blood Pressure 125/78 [Right Arm Sitting] Blood Pressure 108/81 [Right Arm Standing] Blood Pressure 125/78 [Right Arm Supine] O2 Sat by Pulse 100 100 Oximetry Medical Decision Making - Medical Decision Making Patient was tested for orthostatic hypotension she was negative but she did have some drop in blood pressure with standing EKG shows normal sinus rhythm at 66 bpm MN interval is 118 QRS 74 Q-T intervals 38 QTC is 46. Patient's EKG shows no ST segment elevation or depression. - Lab Data Result diagrams: 10/22/19 12:40 10/22/19 12:40 Lab Results 10/22/19 10/22/19 Range/Units 12:40 12:40 WBC 4.7 (3.8-10.6) k/uL RBC 4.11 (3.80-5.40) m/uL Hgb 12.5 (11.4-16.0) gm/dL Hct 38.0 (34.0-46.0) % MCV 92.6 (80.0-100.0) fL MCH 30.5 (25.0-35.0) pg MCHC 32.9 (31.0-37.0) g/dL RDW 13.3 (11.5-15.5) % Plt Count 196 (150-450) k/uL Neutrophils % 65 % Lymphocytes % 28 % Monocytes % 5 % Eosinophils % 0 % Basophils % 0 % Neutrophils # 3.0 (1.3-7.7) k/uL Lymphocytes # 1.3 (1.0-4.8) k/uL Monocytes # 0.2 (0-1.0) k/uL Eosinophils # 0.0 (0-0.7) k/uL Basophils # 0.0 (0-0.2) k/uL Sodium 138 (137-145) mmol/L Potassium 4.3 (3.5-5.1) mmol/L Chloride 109 H (98-107) mmol/L Carbon Dioxide 20 L (22-30) mmol/L Anion Gap 9 mmol/L BUN 13 (7-17) mg/dL Creatinine 0.97 (0.52-1.04) mg/dL Est GFR (CKD-EPI)AfAm >90 (>60 ml/min/1.73 sqM) Est GFR (CKD-EPI)NonAf 80 (>60 ml/min/1.73 sqM) Glucose 90 (74-99) mg/dL Calcium 9.6 (8.4-10.2) mg/dL Total Bilirubin 0.6 (0.2-1.3) mg/dL AST 20 (14-36) U/L ALT 15 (4-34) U/L Alkaline Phosphatase 59 (38-126) U/L Total Protein 7.7 (6.3-8.2) g/dL Albumin 4.5 (3.5-5.0) g/dL Disposition Clinical Impression: Syncope, Toothache Disposition: HOME SELF-CARE Prescriptions: Clindamycin HCl 300 mg PO Q6H 7 Days #28 cap Ibuprofen [Motrin] 600 mg PO Q6HR PRN #20 tab PRN Reason: For pain Is patient prescribed a controlled substance at d/c from ED?: No Referrals: Kirt Noriega MD [Primary Care Provider] - 1-2 days Time of Disposition: 13:32
[2019-10-22 13:13] LABS: Basophils % (A) 0 %; Eosinophils % (A) 0 %; HGB 12.5 gm/dL (11.4-16.0); Lymphocytes # (A) 1.3 k/uL (1.0-4.8); Lymphocytes % (A) 28 %; MCH 30.5 pg (25.0-35.0); MCHC 32.9 g/dL (31.0-37.0); MCV 92.6 fL (80.0-100.0); Mean Platelet Volume 7.9; Monocytes # (A) 0.2 k/uL (0-1.0); Monocytes % (A) 5 %; Neutrophils % (A) 65 %; Platelet Count 196 k/uL (150-450); RBC 4.11 m/uL (3.80-5.40); RDW 13.3 % (11.5-15.5); WBC 4.7 k/uL (3.8-10.6)
[2019-10-22] MEDS ORDERED: ONDANSETRON 4 MG/2 ML VIAL IVP STA (13:13)
[2019-10-22] MEDS ORDERED: KETOROLAC 30 MG/ML 1 ML VIAL IVP STA (13:13)
[2019-10-22 13:30] LABS: ALT 15 U/L (4-34); AST 20 U/L (14-36); African American GFR (CKD) >90 (>60 ml/min/1.73 sqM); Albumin 4.5 g/dL (3.5-5.0); Alkaline Phosphatase 59 U/L (38-126); Anion Gap 9 mmol/L; Blood Urea Nitrogen 13 mg/dL (7-17); Calcium 9.6 mg/dL (8.4-10.2); Carbon Dioxide 20 mmol/L (22-30); Chloride 109 mmol/L (98-107); Glucose 90 mg/dL (74-99); Non-African American GFR(CKD) 80 (>60 ml/min/1.73 sqM); Potassium 4.3 mmol/L (3.5-5.1); Sodium 138 mmol/L (137-145); Total Bilirubin 0.6 mg/dL (0.2-1.3); Total Protein 7.7 g/dL (6.3-8.2)
[2019-10-22 14:07] VITALS: PULSE 80
[2019-10-22 14:19] VITALS: BP 132/78
== END 2019-10-22 14:21 | disposition home or self-care (01) ==
LOC: EC 12:09
DX: R55 Syncope and collapse (principal); K08.89 Other specified disorders of teeth and supporting structures; K21.9 Gastro-esophageal reflux disease without esophagitis; Z79.3 Long term (current) use of hormonal contraceptives; Z79.899 Other long term (current) drug therapy; Z91.048 Other nonmedicinal substance allergy status; Z88.1 Allergy status to other antibiotic agents; Z88.0 Allergy status to penicillin; Z88.2 Allergy status to sulfonamides
CPT/HCPCS: 36415; 93005; 80053; 85025; 99284; 96374; 96375; 96361; J2405; J1885

== ENCOUNTER 2019-11-10 14:27 | Emergency (ER) | payer OTHER ==
[2019-11-10] MEDS ORDERED: SODIUM CHLORIDE 0.9% 1,000 ML IV ONE (14:35)
[2019-11-10 15:32] LABS: Basophils % (A) 0 %; Eosinophils % (A) 0 %; HCT 36.4 % (34.0-46.0); HGB 12.1 gm/dL (11.4-16.0); Lymphocytes % (A) 34 %; MCH 30.9 pg (25.0-35.0); MCHC 33.3 g/dL (31.0-37.0); MCV 92.8 fL (80.0-100.0); Mean Platelet Volume 7.8; Monocytes % (A) 6 %; Neutrophils % (A) 57 %; Platelet Count 188 k/uL (150-450); RBC 3.92 m/uL (3.80-5.40); RDW 13.3 % (11.5-15.5); WBC 3.4 k/uL (3.8-10.6)
[2019-11-10 15:33] LABS: Lymphocytes # (A) 1.1 k/uL (1.0-4.8); Monocytes # (A) 0.2 k/uL (0-1.0); Neutrophils # (A) 1.9 k/uL (1.3-7.7)
--- NOTE | 2019-11-10 15:43 | ED ---
Abdominal Pain HPI - General Chief Complaint: Abdominal Pain Stated Complaint: vaginal bleeding Time Seen by Provider: 11/10/19 14:34 Source: family Mode of arrival: ambulatory Limitations: no limitations - History of Present Illness Initial Comments: 29-year-old female presenting today for chief complaint of vaginal bleeding. She states since she has had vaginal bleeding approximately 10 days. Patient denies any discharge. She has a lightheadedness and dizziness. Patient states she has history of anemia. Patient's interest was having a procedure due to heavy vaginal bleeding chronically was postponed secondary to the pandemic. Patient states she has some slight lower pelvic discomfort. Patient denies any severe pain. Patient has a nausea vomiting she states she's not been sexually active and does not believe she is . Upon arrival patient's are slightly elevated however blood pressure stable she appears well in no acute distress. Patient frequently comes to this emergency department requesting narcotics such as Dilaudid. - Related Data Home Medications Medication Instructions Recorded Confirmed Sertraline HCl [Zoloft] 100 mg PO HS 12/24/18 10/28/19 DULoxetine HCL 40 mg PO BID 10/22/19 10/28/19 Daysee 1 tab PO HS 10/22/19 10/28/19 Doxycycline Hyclate 100 mg PO BID 10/22/19 10/28/19 Lidocaine Viscous 2% [Xylocaine 15 ml MUCOUS MEM Q3H PRN 10/22/19 10/28/19 Viscous] Omeprazole [PriLOSEC] 40 mg PO DAILY 10/22/19 10/28/19 Ondansetron Odt [Zofran Odt] 8 mg PO DAILY PRN 10/22/19 10/28/19 SUMAtriptan SUCCINATE [Imitrex] 25 mg PO DAILY PRN 10/22/19 10/28/19 Topiramate [Topamax] 50 mg PO BID 10/22/19 10/28/19 Previous Rx's Medication Instructions Recorded Magnesium Oxide [Mag-Ox] 400 mg PO BID #60 tab 04/25/19 Clindamycin HCl 300 mg PO Q6H 7 Days #28 cap 10/22/19 Ibuprofen [Motrin] 600 mg PO Q6HR PRN #20 tab 10/22/19 Allergies Allergy/AdvReac Type Severity Reaction Status Date / Time adhesive tape Allergy Rash/Hives Verified 04/21/20 14:33 aloe vera Allergy Rash/Hives Verified 11/10/19 14:33 azithromycin Allergy Rash/Hives Verified 11/10/19 14:33 cephalexin Allergy Rash/Hives Verified 11/10/19 14:33 metronidazole [From Flagyl] Allergy Rash/Hives Verified 11/10/19 14:33 Penicillins Allergy Rash/Hives Verified 11/10/19 14:33 sulfamethoxazole Allergy Rash/Hives Verified 11/10/19 14:33 [From Bactrim] trimethoprim [From Bactrim] Allergy Rash/Hives Verified 11/10/19 14:33 Review of Systems ROS Statement: Those systems with pertinent positive or pertinent negative responses have been documented in the HPI. ROS Other: All systems not noted in ROS Statement are negative. Past Medical History Past Medical History: Blood Disorder, GERD/Reflux Additional Past Medical History / Comment(s): Endometriosis, polycystic ovarian syndrome. IRON DEFICIENCY ANEMIA History of Any Multi-Drug Resistant Organisms: None Reported Past Surgical History: Section, Cholecystectomy, Tubal Ligation Additional Past Surgical History / Comment(s): Laparoscopy X2, Section X3. cyst removed from chest Past Anesthesia/Blood Transfusion Reactions: No Reported Reaction Past Psychological History: Anxiety, Depression Smoking Status: Never smoker Past Alcohol Use History: None Reported Past Drug Use History: None Reported - Past Family History Mother Family Medical History: Hyperlipidemia Additional Family Medical History / Comment(s): Depression and anxiety. General Exam - General Exam Comments Initial Comments: General: The patient is awake and alert, in no distress Eye: Pupils are equal, round and reactive to light, extra-ocular movements are intact. No nystagmus. There is normal conjunctiva bilaterally. No signs of icterus. Ears, nose, mouth and throat: There are moist mucous membranes and no oral lesions. Neck: The neck is supple, there is no tenderness or JVD. Cardiovascular: There is a regular rate and rhythm. No murmur, rub or gallop is appreciated. Respiratory: Lungs are clear to auscultation, respirations are non-labored, breath sounds are equal. No wheezes, stridor, rales, or rhonchi. Gastrointestinal: Soft, non-distended, very mild lower pelvic tenderness. without masses or organomegaly noted. There is no rebound or guarding present. Pelvic: No external lesions obvious. There is a very scant amount of dark red blood in the vaginal vault. No bright red bleeding. Cervical os is closed. Some small clots. No laceration evident. No significant adnexal or cervical motion tenderness no discharge or specific order. Musculoskeletal: Normal ROM, no tenderness. Strength 5/5. Sensation intact. Radial pulses equal bilaterally 2+. Neurological: A&O x 3. CN II-XII intact grossly, There are no obvious motor or sensory deficits. Coordination appears grossly intact. Speech is normal. Skin: Skin is warm and dry and no rashes or lesions are noted. Psychiatric: Cooperative, appropriate mood & affect, normal judgment. Limitations: no limitations Course Vital Signs 11/10/19 11/10/19 14:29 16:08 Temperature 98.5 F 98.2 F Pulse Rate 118 H 98 Respiratory 20 18 Rate Blood Pressure 128/86 124/73 O2 Sat by Pulse 99 98 Oximetry Medical Decision Making - Medical Decision Making 29-year-old female presenting for vaginal bleeding very little vaginal bleeding on physical examination hemoglobin stable. Patient appears to be very drug seeking behavior. Patient vital signs stable she does not appear in acute distress. There is minimal pain ultrasoundAcute findings I did discuss the findings of possible renal or and no myeloma. Recommended NURSE GENERAL DUTY follow-up. Patient is agreeable to this care plan discharge at this time. Patient was not provided IV analgesics in the emergency department. - Lab Data Result diagrams: 11/10/19 15:00 11/10/19 15:00 Lab Results 11/10/19 11/10/19 11/10/19 Range/Units 15:00 15:00 15:00 WBC 3.4 L (3.8-10.6) k/uL RBC 3.92 (3.80-5.40) m/uL Hgb 12.1 (11.4-16.0) gm/dL Hct 36.4 (34.0-46.0) % MCV 92.8 (80.0-100.0) fL MCH 30.9 (25.0-35.0) pg MCHC 33.3 (31.0-37.0) g/dL RDW 13.3 (11.5-15.5) % Plt Count 188 (150-450) k/uL Neutrophils % 57 % Lymphocytes % 34 % Monocytes % 6 % Eosinophils % 0 % Basophils % 0 % Neutrophils # 1.9 (1.3-7.7) k/uL Lymphocytes # 1.1 (1.0-4.8) k/uL Monocytes # 0.2 (0-1.0) k/uL Eosinophils # 0.0 (0-0.7) k/uL Basophils # 0.0 (0-0.2) k/uL Sodium (137-145) mmol/L Potassium (3.5-5.1) mmol/L Chloride (98-107) mmol/L Carbon Dioxide (22-30) mmol/L Anion Gap mmol/L BUN (7-17) mg/dL Creatinine (0.52-1.04) mg/dL Est GFR (CKD-EPI)AfAm (>60 ml/min/1.73 sqM) Est GFR (CKD-EPI)NonAf (>60 ml/min/1.73 sqM) Glucose (74-99) mg/dL Calcium (8.4-10.2) mg/dL Total Bilirubin (0.2-1.3) mg/dL AST (14-36) U/L ALT (4-34) U/L Alkaline Phosphatase (38-126) U/L Total Protein (6.3-8.2) g/dL Albumin (3.5-5.0) g/dL Urine HCG, Qual Not Detected (Not Detectd) Blood Type A Positive Blood Type Recheck A Pos Bld Type Recheck Status No Antibody Screen NEGATIVE Spec Expiration Date 11/13/2019 - 229911/10/19 Range/Units 15:00 WBC (3.8-10.6) k/uL RBC (3.80-5.40) m/uL Hgb (11.4-16.0) gm/dL Hct (34.0-46.0) % MCV (80.0-100.0) fL MCH (25.0-35.0) pg MCHC (31.0-37.0) g/dL RDW (11.5-15.5) % Plt Count (150-450) k/uL Neutrophils % % Lymphocytes % % Monocytes % % Eosinophils % % Basophils % % Neutrophils # (1.3-7.7) k/uL Lymphocytes # (1.0-4.8) k/uL Monocytes # (0-1.0) k/uL Eosinophils # (0-0.7) k/uL Basophils # (0-0.2) k/uL Sodium 140 (137-145) mmol/L Potassium 3.9 (3.5-5.1) mmol/L Chloride 109 H (98-107) mmol/L Carbon Dioxide 22 (22-30) mmol/L Anion Gap 9 mmol/L BUN 8 (7-17) mg/dL Creatinine 0.95 (0.52-1.04) mg/dL Est GFR (CKD-EPI)AfAm >90 (>60 ml/min/1.73 sqM) Est GFR (CKD-EPI)NonAf 82 (>60 ml/min/1.73 sqM) Glucose 92 (74-99) mg/dL Calcium 9.5 (8.4-10.2) mg/dL Total Bilirubin 0.4 (0.2-1.3) mg/dL AST 15 (14-36) U/L ALT 12 (4-34) U/L Alkaline Phosphatase 54 (38-126) U/L Total Protein 7.4 (6.3-8.2) g/dL Albumin 4.4 (3.5-5.0) g/dL Urine HCG, Qual (Not Detectd) Blood Type Blood Type Recheck Bld Type Recheck Status Antibody Screen Spec Expiration Date Disposition Clinical Impression: Vaginal bleeding Disposition: HOME SELF-CARE Condition: Good Instructions (If sedation given, give patient instructions): Dysfunctional Uterine Bleeding (ED) Additional Instructions: Please use medication as discussed. Please follow-up with OBGYN in next 1-2 weeks, retrieve results from ultrasound to review at this appointment. Please return to emergency room if the symptoms increase or worsen or for any other concerns. Is patient prescribed a controlled substance at d/c from ED?: No Referrals: Mila To PAC [Primary Care Provider] - 1-2 days Navjot Cooper MD [STAFF PHYSICIAN] - 1-2 days Time of Disposition: 15:57
[2019-11-10 15:48] LABS: ALT 12 U/L (4-34); AST 15 U/L (14-36); African American GFR (CKD) >90 (>60 ml/min/1.73 sqM); Albumin 4.4 g/dL (3.5-5.0); Alkaline Phosphatase 54 U/L (38-126); Anion Gap 9 mmol/L; Blood Urea Nitrogen 8 mg/dL (7-17); Calcium 9.5 mg/dL (8.4-10.2); Carbon Dioxide 22 mmol/L (22-30); Chloride 109 mmol/L (98-107); Glucose 92 mg/dL (74-99); Non-African American GFR(CKD) 82 (>60 ml/min/1.73 sqM); Potassium 3.9 mmol/L (3.5-5.1); Sodium 140 mmol/L (137-145); Total Bilirubin 0.4 mg/dL (0.2-1.3); Total Protein 7.4 g/dL (6.3-8.2)
--- NOTE | 2019-11-10 15:56 | US ---
EXAMINATION TYPE: US transvaginal DATE OF EXAM: 11/10/2019 COMPARISON: NONE CLINICAL HISTORY: heavy vaginal bleeding. vaginal bleeding and pelvic pain for 10 days. 3 prior c-sec tions. Tubal ligation TECHNIQUE: Transvaginal (TV) Date of LMP: unknown EXAM MEASUREMENTS: Uterus: 6.7 x 3.6 x 4.6 cm Endometrial Stripe: 0.3 cm Right Ovary: 1.9 x 1.3 x 1.8 cm Left Ovary: 2.1 x 1.2 x 1.2 cm 1. Uterus: Anteverted heterogeneous 2. Endometrium: difficult to visualize due to heterogeneous myometrium 3. Right Ovary: appears wnl 4. Left Ovary: appears wnl Spectral, color and waveform doppler imaging shows good arterial and venous flow within the ovaries ; there is no evidence for ovarian torsion. 5. Bilateral Adnexa: wnl 6. Posterior cul-de-sac: small amount of free fluid, likely physiologic IMPRESSION: Heterogenous myometrium that could relate to small uterine leiomyomas or adenomyosis. Thi s makes delineation of the endometrium difficult however the endometrium does not appear grossly thic kened. Ovaries are unremarkable.
[2019-11-10 16:08] VITALS: BP 124/73; PULSE 98; RESP 18; TEMP 98.2
== END 2019-11-10 16:08 | disposition home or self-care (01) ==
LOC: EC 14:27
DX: N93.9 Abnormal uterine and vaginal bleeding, unspecified (principal); R11.2 Nausea with vomiting, unspecified; F41.9 Anxiety disorder, unspecified; F32.9 Major depressive disorder, single episode, unspecified; Z79.899 Other long term (current) drug therapy; Z91.048 Other nonmedicinal substance allergy status; Z88.1 Allergy status to other antibiotic agents; Z88.0 Allergy status to penicillin; Z88.2 Allergy status to sulfonamides
CPT/HCPCS: 36415; 76830; 80053; 81025; 85025; 86850; 86900; 86901; 93975; 96360; 99284

== ENCOUNTER → 2019-12-28 | Outpatient (CLI) | payer OTHER ==
[2019-12-28 12:31] LABS: Basophils % (A) 0 %; Eosinophils % (A) 1 %; HCT 36.2 % (34.0-46.0); HGB 11.4 gm/dL (11.4-16.0); Lymphocytes # (A) 1.4 k/uL (1.0-4.8); Lymphocytes % (A) 28 %; MCHC 31.5 g/dL (31.0-37.0); MCV 95.2 fL (80.0-100.0); Mean Platelet Volume 7.5; Monocytes # (A) 0.2 k/uL (0-1.0); Monocytes % (A) 3 %; Neutrophils # (A) 3.3 k/uL (1.3-7.7); Neutrophils % (A) 67 %; Platelet Count 190 k/uL (150-450); RBC 3.81 m/uL (3.80-5.40); RDW 13.5 % (11.5-15.5)
== END | disposition home or self-care (01) ==
LOC: LABPAT 11:30
PROVIDERS: ATTEND Obstetrics & Gynecology
DX: Z01.818 Encounter for other preprocedural examination (principal); M48.02 Spinal stenosis, cervical region; N92.0 Excessive and frequent menstruation with regular cycle; D64.9 Anemia, unspecified; R10.2 Pelvic and perineal pain; N80.9 Endometriosis, unspecified; N83.209 Unspecified ovarian cyst, unspecified side
CPT/HCPCS: 36415; 85025

== ENCOUNTER → 2020-01-11 | Day surgery (SDC) | payer OTHER ==
[2020-01-07 12:05] VITALS: BMI 34.3
--- NOTE | 2020-01-07 16:38 | HP ---
HISTORY AND PHYSICAL DATE OF SERVICE: 01/11/2020 HISTORY OF PRESENT ILLNESS: The patient is a 29-year-old 5, para 1-2-2-3, initially referred by her primary care doctor for evaluation of menorrhagia with anemia as well as chronic pelvic pain with a known history of endometriosis. She presented with complaints of heavy menses for about the last 2 years with significant and regular bleeding through all protection. She has currently been on Seasonique with minimal improvement in her bleeding profile. She also has a known history of endometriosis, which was diagnostic at laparoscopy on several occasions and has begun having significantly more chronic pain at this time. She has had a tubal ligation performed. Her primary concern with the pain is on the right side as she has had recurrent right ovarian cyst noted there and is interested in having the right ovary removed as well as evaluation and treatment of any potential endometriotic implants found in the pelvis. She has as a result, requested to undergo diagnostic laparoscopy with right salpingo-oophorectomy, possible robotically assisted surgery. She then will also undergo diagnostic hysteroscopy with NovaSure endometrial ablation. PAST MEDICAL HISTORY: Significant for longstanding history of anxiety as well as occasional anemia. She also reports some issues with colitis. She has a history of endometriosis as well as gastroesophageal reflux and polycystic ovarian syndrome. PAST SURGICAL HISTORY: Significant for section x2. She has had a cholecystectomy as well as colonoscopy and EGD on several occasions and then she has also undergone tubal ligation. There are no apparent anesthetic concerns. OBSTETRICAL HISTORY: 5, para 1-2-2-3 with two 36 week deliveries and 1 term delivery, 2 which were sections in nature. Method of contraception is tubal ligation. Gynecologic history is unremarkable with no history of any apparent infections to include STDs. She does carry a history of endometriosis diagnosed by laparoscopy. FAMILY HISTORY: Noncontributory. SOCIAL HISTORY: The patient is and is a nonsmoker. She reports occasional alcohol and no other social concerns. CURRENT MEDICATIONS: Include Seasonique daily. Doxycycline was used in the short term. She also uses duloxetine 40 mg daily twice daily, Toradol 30 mg IM daily, magnesium oxide 400 mg twice daily, omeprazole 40 mg daily, Zofran as needed, sumatriptan 25 mg as needed for migraine, 50 mg every 4 weeks intravenously. ALLERGIES: Topical aloe has caused a reaction. She additionally has had a reaction to the ZITHROMAX, KEFLEX, as well as PENICILLIN, which caused hives. She also has a topical tape reaction and is lactose/milk intolerant. REVIEW OF SYSTEMS: Confined to history of present illness. PHYSICAL EXAMINATION: In general, this is a well-developed, well-nourished white female in no acute distress. Her heart has a regular rhythm and rate without murmur. Her lungs are clear to auscultation bilaterally in all morris. Her abdomen is nondistended, has normoactive bowel sounds, soft, nontender, without any palpable masses, hepatosplenomegaly, or hernias. Her extremities are without any cyanosis, clubbing, or edema and are nontender to palpation bilaterally. Pelvic examination demonstrates normal external genitalia and BUS with normal vaginal mucosa and cervix. There is no cervical motion tenderness. Uterus is approximately 4-5 weeks in size, mid plane, mobile, and very high in the pelvis. The adnexa are normal and with mild tenderness bilaterally but no apparent masses. ASSESSMENT AND PLAN: 1. Menorrhagia. 2. Chronic pelvic pain. 3. Recurrent ovarian cyst. 4. Endometriosis. 5. Cervical stenosis. We discussed multiple different options for treatment at the time of her visit and she has requested to have the right ovary removed as it is a constant source of discomfort. She additionally wishes to have an ablation for her menorrhagia and subsequent anemia. As a result, we planned for diagnostic hysteroscopy with right salpingo-oophorectomy, possible ablation of endometriosis, possibly robotically assisted. We will then move on to diagnostic hysteroscopy with dilation and curettage and NovaSure endometrial ablation. Risks and complications of the procedures have been discussed at length including the risks for bleeding, bleeding requiring transfusion, infection, and injury to local structures to specifically include the bowel, bladder, ureters, and uterine perforation as well as Asherman syndrome and potential hematometra. She has understood all of these concerns and has agreed to proceed. At this time, we are scheduled for the procedures as outlined above on the morning of January 11, 2020. MMODL / IJN: [id number] /
[~2020-01-11] MED LIST: Acetaminophen-Codeine 300-30mg TAB PO PRN; BUPIVACAINE (PF) 0.5% 30 ML VIAL SQ ONE; CLINDAMYCIN 900 MG in DEXTROSE 5% IN WATER 50 ML IVPB ONE; DEXAMETHASONE SOD PHOSPHATE 10 MG/ML 1 ML VIAL IV ONE; GENTAMICIN 290 MG in SODIUM CHLORIDE 0.9% 100 ML IVPB ONE; GLYCOPYRROLATE 0.2 MG/ML 2 ML VIAL ONE; HYDROcodone/APAP 5-325MG 1 EACH TAB PO ONE; IBUPROFEN 600 MG TAB PO PRN; KETOROLAC 30 MG/ML 1 ML VIAL IVP PRN; KETOROLAC 30 MG/ML 1 ML VIAL ONE; LACTATED RINGERS 1,000 ML IV ONE; LACTATED RINGERS 1,000 ML IV SCH; LIDOCAINE 1% (10MG/ML) FOR IV START INTRADERMA ONE; LIDOCAINE 1% INJ 10MG/ML (20 ML MDV) ONE; METOCLOPRAMIDE 5 MG/ML 2 ML VIAL IVP PRN; MIDAZOLAM 2 MG/2 ML VIAL IV ONE; MIDAZOLAM 2 MG/2 ML VIAL ONE; NEOSTIGMINE 1 MG/ML 10 ML VIAL ONE; ONDANSETRON 4 MG/2 ML VIAL IVP ONE; ONDANSETRON 4 MG/2 ML VIAL IVP PRN; PROPOFOL 10 MG/ML 20 ML VIAL IV ONE; ROCURONIUM BROMIDE 10 MG/ML 5 ML VIAL IV ONE; SIMETHICONE 80 MG CHEWABLE PO PRN; SUCCINYLCHOLINE CHLORIDE 100 MG/5 ML SYR IV ONE; diphenhydrAMINE 50 MG/ML 1 ML VIAL IVP PRN; fentaNYL (PF) 50 MCG/ML 2 ML AMP IV ONE; fentaNYL (PF) 50 MCG/ML 2 ML AMP ONE
[2020-01-11 07:20] VITALS: RESP 16
--- NOTE | 2020-01-11 11:14 | P.OP ---
Date of Procedure: 01/11/20 Preoperative Diagnosis: #1. Chronic pelvic pain #2. History of endometriosis #3. Menometrorrhagia #4. Cervical stenosis Postoperative Diagnosis: Same Procedure(s) Performed: #1. Diagnostic laparoscopy, laparoscopic right salpingo-oophorectomy #2. Laura gnostic hysteroscopy #3. Dilation and curettage #4. NovaSure endometrial ablation Anesthesia: GETA Surgeon: Navjot Cooper Estimated Blood Loss (ml): 5 IV fluids (ml): 700 Urine output (ml): 30 Pathology: other (Endometrial curettings) Condition: stable Disposition: PACU Operative Findings: Preoperative pelvic examination demonstrated a 4-5 week anteverted mobile normal shaped uterus with normal adnexa bilaterally. Intraoperatively, there were bilateral Filshie clips present indicating tubal ligation. Both tubes and ovaries otherwise appeared relatively normal and free. There was no obvious evidence of endometriosis anywhere in the pelvis. There was a moderate scarring at the site of the previous section. There was some possible endometriosis near the scar. There were possible peritoneal windows in the right adnexal region but no obvious powder burn or endometriotic implants noted in the pelvis. The right tube and ovary were removed without difficulty. The left tube and ovary were entirely normal to inspection and left intact. The small and large intestine as well as the appendix were seen and appeared to be normal. The upper abdomen including the liver and diaphragm appeared normal as well. The uterus sounded to approximately 9 cm with a n approximate cervical length of 3.5 cm. Using the hysteroscope, the bilateral tubal ostia were seen and there was no significant evidence of any irregularities inside the uterus. Minimal tissue was returned onto a Telfa in the vagina with curettage. The settings for the NovaSure tool where a length of 5.5 cm, a width of 3.3 cm for a total power of 100 W. After a total run time of 49 seconds, the base unit read "procedure complete." The postprocedural result appeared to be excellent. The patient is a poor candidate for vaginal approach to hysterectomy. Description of Procedure: The patient was prepped and draped in usual fashion after general endotracheal anesthesia was administered by the anesthesiologist. A weighted speculum was placed and the anterior lip of the cervix grasped with a single-tooth tenaculum allowing placement of an acorn cannula for manipulation. The bladder was drained of approximately 30 mL of clear serafin urine. Attention was turned to the abdomen where a roughly 5 mm incision was made through pre-existing scar ju st below the umbilicus allowing insertion of a 5 mm optical trocar into the abdominal cavity without difficulty. A pneumoperitoneum was then established. There was noted to be some omental scarring just lateral to the umbilical incision on the left which was left intact as would likely recur. Exploration of the pelvis demonstrated the findings as noted above. A site was selected in the left lower quadrant where a roughly 10 mm incision was made in the transverse plane allowing a 10 mm trocar to be inserted under direct visualization without difficulty. Trendelenburg positioning and a grasper used to demonstrate the findings as noted above. A grasper was then utilized to grasp the tubo-ovarian complex on the right side which appeared to be relatively normal but the patient had requested be removed. A site was then selected in the right lower quadrant where a 5 mm incision was made in the transverse plane to allow insertion of a 5 mm trocar under direct visualization without diffi culty as well. A LigaSure device was placed through this site and the infundibulopelvic ligament divided close to the tube and ovary. Serial bites were taken down and across the fallopian tube below the level of the Filshie clip. Bleeding appeared to be minimal and with nothing ongoing. Aspiration of the rest of the abdominal cavity demonstrated no pathology with the findings as noted above. An Endobag was placed through the left lower quadrant port and the specimen placed within the bag. The bag and trocar were removed intact and the specimen sent for pathological diagnoses. The pneumoperitoneum was then completely evacuated through the port sites and the ports removed under direct visualization without difficulty. The skin incisions were closed with interrupted subcuticular stitches of 4-0 Vicryl followed by half-inch Steri- Strips placed with Mastisol. The 3 incisions were infused with a total of 10 mL of half percent Marcaine without epinephrine, equally divided among the 3 incisions. Attention was then turned back to the vaginal approach. The acorn cannula was removed and the weighted speculum replaced within the vagina. The uterus was sounded to 9 cm with a cervical length of 3.5 cm as noted above. Serial dilation was carried out to admit the diagnostic hysteroscope which was placed into the uterus and the findings were normal as noted above once adequate hysteroscopy was carried out, the scope was set aside and the NovaSure tool placed within the in vitro cavity and seated well. The settings are as noted above with a length of 5.5 cm, width of 3.3 cm for total power of 100 W. The cavity check was attempted and passed without difficulty. The tool was enabled and the run was started. After total run of 49 seconds, the tool disengaged and the base unit read "procedure complete." The 2 was closed, removed, and discarded and the diagnostic hysteroscope replaced with the findings noted to be excellent as above. All instrumentation was removed from the vagina and cervix. There was some ongoing bleeding at one of the tenaculum sites which was made hemostatic with pressure. Estimated blood loss for the entire case was approximate 5 mL. There were no complications. All sponge, instrument, and needle counts were correct. The patient tolerated the procedure all proceeded to the recovery room in stable condition.
[2020-01-11 11:22] VITALS: TEMP 98.1
[2020-01-11] MEDS: HYDROmorphone 0.5 MG/0.5 ML SYRINGE IVP PRN ×2 (11:43→11:50)
[2020-01-11 12:58] VITALS: PULSE 101
[2020-01-11 13:23] VITALS: BP 107/71
== END | disposition home or self-care (01) ==
LOC: OR 06:45
PROVIDERS: ATTEND Obstetrics & Gynecology
DX: E28.2 Polycystic ovarian syndrome (principal); N80.9 Endometriosis, unspecified; G89.29 Other chronic pain; N92.1 Excessive and frequent menstruation with irregular cycle; M48.02 Spinal stenosis, cervical region; D64.9 Anemia, unspecified; F41.9 Anxiety disorder, unspecified; K21.9 Gastro-esophageal reflux disease without esophagitis; E73.9 Lactose intolerance, unspecified; K08.89 Other specified disorders of teeth and supporting structures; F32.9 Major depressive disorder, single episode, unspecified; G43.909 Migraine, unspecified, not intractable, without status migrainosus; Z91.048 Other nonmedicinal substance allergy status; Z88.1 Allergy status to other antibiotic agents; Z88.0 Allergy status to penicillin; Z91.09 Other allergy status, other than to drugs and biological substances; Z98.51 Tubal ligation status; Z87.19 Personal history of other diseases of the digestive system; Z98.890 Other specified postprocedural states; Z90.49 Acquired absence of other specified parts of digestive tract; Z79.3 Long term (current) use of hormonal contraceptives; Z79.899 Other long term (current) drug therapy; Z79.1 Long term (current) use of non-steroidal anti-inflammatories (NSAID); Z91.89 Other specified personal risk factors, not elsewhere classified
CPT/HCPCS: 81025; 88305; 58661; 58558; J2250; J1100; J2710; J2405; J2001; J3010; J1885; J1580; J0330; J2704; J1170

== ENCOUNTER 2020-01-13 14:46 | Emergency (ER) | payer OTHER ==
[2020-01-13] MEDS ORDERED: SODIUM CHLORIDE 0.9% 1,000 ML IV ONE (15:19)
[2020-01-13] MEDS ORDERED: MORPHINE SULFATE 4 MG/ML SYRINGE IV STA (15:19)
[2020-01-13] MEDS ORDERED: ONDANSETRON 4 MG/2 ML VIAL IVP STA (15:19)
[2020-01-13 16:02] LABS: Basophils % (A) 0 %; Eosinophils # (A) 0.1 k/uL (0-0.7); Eosinophils % (A) 3 %; HCT 34.5 % (34.0-46.0); HGB 11.6 gm/dL (11.4-16.0); Lymphocytes # (A) 1.4 k/uL (1.0-4.8); Lymphocytes % (A) 32 %; MCH 32.4 pg (25.0-35.0); MCHC 33.6 g/dL (31.0-37.0); MCV 96.4 fL (80.0-100.0); Mean Platelet Volume 7.4; Monocytes # (A) 0.3 k/uL (0-1.0); Monocytes % (A) 6 %; Neutrophils # (A) 2.6 k/uL (1.3-7.7); Neutrophils % (A) 58 %; Platelet Count 174 k/uL (150-450); RBC 3.58 m/uL (3.80-5.40); RDW 13.5 % (11.5-15.5); WBC 4.4 k/uL (3.8-10.6)
[2020-01-13 16:23] LABS: ALT 30 U/L (4-34); AST 44 U/L (14-36); African American GFR (CKD) >90 (>60 ml/min/1.73 sqM); Albumin 3.5 g/dL (3.5-5.0); Alkaline Phosphatase 31 U/L (38-126); Anion Gap 6 mmol/L; Blood Urea Nitrogen 11 mg/dL (7-17); Calcium 8.7 mg/dL (8.4-10.2); Carbon Dioxide 19 mmol/L (22-30); Chloride 112 mmol/L (98-107); Glucose 99 mg/dL (74-99); Non-African American GFR(CKD) >90 (>60 ml/min/1.73 sqM); Potassium 5.3 mmol/L (3.5-5.1); Sodium 137 mmol/L (137-145); Total Bilirubin 0.7 mg/dL (0.2-1.3); Total Protein 6.3 g/dL (6.3-8.2)
--- NOTE | 2020-01-13 16:27 | US ---
EXAMINATION TYPE: US kidneys/renal and bladder DATE OF EXAM: 01/13/2020 COMPARISON: CT 09/17/2019 CLINICAL HISTORY: 29-year-old female assess for hydro. Patient cannot urinate TECHNIQUE: Multiple sonographic images of the kidneys and bladder are obtained. FINDINGS: EXAM MEASUREMENTS: Right Kidney: 9.8 x 5.6 x 5.2 cm Left Kidney: 10.1 x 5.4 x 4.4 cm No hydronephrosis on either side. Bladder: wnl Bilateral Jets seen: yes IMPRESSION: No hydronephrosis. Both ureteral jets are visualized.
--- NOTE | 2020-01-13 16:29 | ED ---
Female Urogenital HPI - General Chief complaint: Urogenital Stated complaint: recheck Time Seen by Provider: 01/13/20 17:55 Source: EMS Mode of arrival: EMS Limitations: no limitations - History of Present Illness Initial comments: Patient is a 29-year-old female who presents emergency room in with reported difficulty urinating. Patient is postop day 2 of a right salpingo-oophorectomy, D&C and ablation by Dr. Cooper. States that after surgery she has had decreased urination with pain. States that she has not been able to urinate since 7 AM this morning. She has urged to go with associated pelvic pressure. Patient had procedure done for endometriosis. Patient denies hematuria. Admits to constipation. States she had a large bowel movement before surgery. She has been taking [place] and a stool softener. Patient continues to pass gas. She has had some vaginal bleeding. No fevers or chills. Admits to nausea without vomiting. Denies back or flank pain. There are no other alleviating, precipitating or modifying factors - Related Data Home Medications Medication Instructions Recorded Confirmed Sertraline HCl [Zoloft] 100 mg PO HS 12/24/18 01/13/20 Omeprazole [PriLOSEC] 40 mg PO HS 10/22/19 01/13/20 SUMAtriptan SUCCINATE [Imitrex] 25 mg PO DAILY PRN 10/22/19 01/13/20 Topiramate [Topamax] 50 mg PO BID 10/22/19 01/13/20 Magnesium Oxide [Mag-Ox] 400 mg PO BID 01/07/20 01/13/20 HYDROcodone/APAP 5-325MG [[place] 1 - 2 tab PO Q4HR PRN 01/13/20 01/13/20 5-325] Ibuprofen [Motrin] 600 mg PO Q8HR PRN 01/13/20 01/13/20 Psyllium Husk 100% [Metamucil 6 gm PO DAILY PRN 01/13/20 01/13/20 Packet] Previous Rx's Medication Instructions Recorded Phenazopyridine [Pyridium] 200 mg PO TID #6 tablet 01/13/20 Allergies Allergy/AdvReac Type Severity Reaction Status Date / Time adhesive tape Allergy Rash/Hives Verified 01/13/20 15:24 aloe vera Allergy Rash/Hives Verified 01/13/20 15:24 azithromycin Allergy Rash/Hives Verified 01/13/20 15:24 cephalexin Allergy Rash/Hives Verified 01/13/20 15:24 metronidazole [From Flagyl] Allergy Rash/Hives Verified 01/13/20 15:24 Penicillins Allergy Rash/Hives Verified 01/13/20 15:24 sulfamethoxazole Allergy Rash/Hives Verified 01/13/20 15:24 [From Bactrim] trimethoprim [From Bactrim] Allergy Rash/Hives Verified 01/13/20 15:24 alprazolam [From Xanax] AdvReac MAKES Verified 01/13/20 15:24 PARANOID dicyclomine [From Bentyl] AdvReac constipatio Verified 01/13/20 15:24 n Review of Systems ROS Statement: Those systems with pertinent positive or pertinent negative responses have been documented in the HPI. ROS Other: All systems not noted in ROS Statement are negative. Past Medical History Past Medical History: Blood Disorder, GERD/Reflux Additional Past Medical History / Comment(s): Endometriosis, polycystic ovarian syndrome. IRON DEFICIENCY ANEMIA History of Any Multi-Drug Resistant Organisms: None Reported Past Surgical History: Section, Cholecystectomy, Tubal Ligation Additional Past Surgical History / Comment(s): Laparoscopy X2, Section X3. cyst removed from chest Past Anesthesia/Blood Transfusion Reactions: No Reported Reaction Past Psychological History: Anxiety, Depression Smoking Status: Never smoker Past Alcohol Use History: None Reported Past Drug Use History: None Reported - Past Family History Mother Family Medical History: Hyperlipidemia Additional Family Medical History / Comment(s): Depression and anxiety. General Exam Limitations: no limitations General appearance: alert, in no apparent distress Head exam: Present: atraumatic, normocephalic, normal inspection Eye exam: Present: normal appearance, PERRL, EOMI. Absent: scleral icterus, conjunctival injection, periorbital swelling ENT exam: Present: normal exam, mucous membranes moist Neck exam: Present: normal inspection. Absent: tenderness, meningismus, lymphadenopathy Respiratory exam: Present: normal lung sounds bilaterally. Absent: respiratory distress, wheezes, rales, rhonchi, stridor Cardiovascular Exam: Present: regular rate, normal rhythm, normal heart sounds. Absent: systolic murmur, diastolic murmur, rubs, gallop, clicks GI/Abdominal exam: Present: soft, normal bowel sounds. Absent: distended, tenderness, guarding, rebound, rigid Extremities exam: Present: normal inspection, full ROM, normal capillary refill, other (5/5 muscle strength bilateral lower extremities. Reflexes intact. Intact sensation over the medial, lateral and dorsal foot). Absent: tenderness, pedal edema, joint swelling, calf tenderness Back exam: Present: normal inspection Neurological exam: Present: alert, oriented X3, CN II-XII intact Psychiatric exam: Present: normal affect, normal mood Skin exam: Present: warm, dry, intact, normal color. Absent: rash Course Vital Signs 01/13/20 01/13/20 01/13/20 17:51 20:18 20:44 Temperature 98.4 F 98.0 F Pulse Rate 88 77 77 Respiratory 16 161 H 16 Rate Blood Pressure 128/79 124/87 128/87 O2 Sat by Pulse 100 99 99 Oximetry Medical Decision Making - Medical Decision Making Upon arrival the patient is placed in room 6. A thorough history and physical exam is performed. Peripheral IV was established. The patient was requesting pain medications. She was given 4 mg of morphine and 4 mg of Zofran. Laboratory studies were conducted. Initial bladder scan demonstrated that the patient had 125 mL of urine in her bladder. Laboratory studies are unremarkable. Kidney function is normal at 0.8. Urinalysis is negative for any infection. HCG is not detected. I did perform an ultrasound of the patient's kidneys and bladder which demonstrates no hydronephrosis. Both ureteral jets are visualized. I discussed case with Dr. Freitas. We were agreeable to perform imaging of the patient's ureters to ensure they are intact. I called radiology and the radiologist suggests that the patient have a CT of the abdomen and pelvis with contrast with delayed imaging. We attempted to have the patient void however she is unable to. Repeat bladder scan demonstrates 250 mL in her bladder. She does request a Devi for which we do place. The patient was sent over for the CT of the abdomen and pelvis with contrast which does demonstrate nonspecific free fluid in the pelvis. No definitive contrast extravasation. Cannot definitively exclude left ureter injury as only a single delayed postcontrast study does not show opacification of the entire bilateral ureters. I discussed the case with Dr. freitas. She does state if the patient is having urinary retention that she be discharged home with the Edvi in place. Patient did have right salpingo-oophorectomy without intervention on the left side. I did discuss this with the patient. She states that she does not want to go home with the Devi in place. I did inform her that if I remove that she may have retention once again for which the patient understood and is continuing to request to have it out. I did instruct her to call Dr. Rodriguez in the morning for which the patient agreed to. Dr. Freitas recommends Pyridium for which the patient was given a prescription and one dose in the emergency room. She has any new or worsening symptoms to return to the emergency room. Patient was agreeable to the treatment plan and she was discharged home in stable condition - Lab Data Result diagrams: 01/13/20 15:42 01/13/20 15:42 Lab Results 01/13/20 01/13/20 01/13/20 Range/Units 15:42 15:42 17:02 WBC 4.4 (3.8-10.6) k/uL RBC 3.58 L (3.80-5.40) m/uL Hgb 11.6 (11.4-16.0) gm/dL Hct 34.5 (34.0-46.0) % MCV 96.4 (80.0-100.0) fL MCH 32.4 (25.0-35.0) pg MCHC 33.6 (31.0-37.0) g/dL RDW 13.5 (11.5-15.5) % Plt Count 174 (150-450) k/uL Neutrophils % 58 % Lymphocytes % 32 % Monocytes % 6 % Eosinophils % 3 % Basophils % 0 % Neutrophils # 2.6 (1.3-7.7) k/uL Lymphocytes # 1.4 (1.0-4.8) k/uL Monocytes # 0.3 (0-1.0) k/uL Eosinophils # 0.1 (0-0.7) k/uL Basophils # 0.0 (0-0.2) k/uL Sodium 137 (137-145) mmol/L Potassium 5.3 H (3.5-5.1) mmol/L Chloride 112 H (98-107) mmol/L Carbon Dioxide 19 L (22-30) mmol/L Anion Gap 6 mmol/L BUN 11 (7-17) mg/dL Creatinine 0.81 (0.52-1.04) mg/dL Est GFR (CKD-EPI)AfAm >90 (>60 ml/min/1.73 sqM) Est GFR (CKD-EPI)NonAf >90 (>60 ml/min/1.73 sqM) Glucose 99 (74-99) mg/dL Calcium 8.7 (8.4-10.2) mg/dL Total Bilirubin 0.7 (0.2-1.3) mg/dL AST 44 H (14-36) U/L ALT 30 (4-34) U/L Alkaline Phosphatase 31 L (38-126) U/L Total Protein 6.3 (6.3-8.2) g/dL Albumin 3.5 (3.5-5.0) g/dL Urine Color Yellow Urine Appearance Clear (Clear) Urine pH 6.0 (5.0-8.0) Ur Specific [place] 1.018 (1.001-1.035) Urine Protein Negative (Negative) Urine Glucose (UA) Negative (Negative) Urine Ketones Negative (Negative) Urine Blood Negative (Negative) Urine Nitrite Negative (Negative) Urine Bilirubin Negative (Negative) Urine Urobilinogen <2.0 (<2.0) mg/dL Ur Leukocyte Esterase Negative (Negative) Urine HCG, Qual (Not Detectd) 01/13/20 Range/Units 17:02 WBC (3.8-10.6) k/uL RBC (3.80-5.40) m/uL Hgb (11.4-16.0) gm/dL Hct (34.0-46.0) % MCV (80.0-100.0) fL MCH (25.0-35.0) pg MCHC (31.0-37.0) g/dL RDW (11.5-15.5) % Plt Count (150-450) k/uL Neutrophils % % Lymphocytes % % Monocytes % % Eosinophils % % Basophils % % Neutrophils # (1.3-7.7) k/uL Lymphocytes # (1.0-4.8) k/uL Monocytes # (0-1.0) k/uL Eosinophils # (0-0.7) k/uL Basophils # (0-0.2) k/uL Sodium (137-145) mmol/L Potassium (3.5-5.1) mmol/L Chloride (98-107) mmol/L Carbon Dioxide (22-30) mmol/L Anion Gap mmol/L BUN (7-17) mg/dL Creatinine (0.52-1.04) mg/dL Est GFR (CKD-EPI)AfAm (>60 ml/min/1.73 sqM) Est GFR (CKD-EPI)NonAf (>60 ml/min/1.73 sqM) Glucose (74-99) mg/dL Calcium (8.4-10.2) mg/dL Total Bilirubin (0.2-1.3) mg/dL AST (14-36) U/L ALT (4-34) U/L Alkaline Phosphatase (38-126) U/L Total Protein (6.3-8.2) g/dL Albumin (3.5-5.0) g/dL Urine Color Urine Appearance (Clear) Urine pH (5.0-8.0) Ur Specific [place] (1.001-1.035) Urine Protein (Negative) Urine Glucose (UA) (Negative) Urine Ketones (Negative) Urine Blood (Negative) Urine Nitrite (Negative) Urine Bilirubin (Negative) Urine Urobilinogen (<2.0) mg/dL Ur Leukocyte Esterase (Negative) Urine HCG, Qual Not Detected (Not Detectd) Disposition Clinical Impression: Urinary retention, S/P oophorectomy Disposition: HOME SELF-CARE Condition: Stable Instructions (If sedation given, give patient instructions): Acute Urinary Retention in Women (ED) Additional Instructions: Please call Dr. Og in the morning for follow-up. Return to the emergency room for any new or worsening symptoms Prescriptions: Phenazopyridine [Pyridium] 200 mg PO TID #6 tablet Is patient prescribed a controlled substance at d/c from ED?: No Referrals: Mila To PAC [Primary Care Provider] - 1-2 days Time of Disposition: 19:44
[2020-01-13 17:12] LABS: Appearance,Urine Clear (Clear); Bilirubin,Urine Negative (Negative); Blood,Urine Negative (Negative); Color,Urine Yellow; Glucose,Urine (UA) Negative (Negative); Ketones,Urine Negative (Negative); Leukocyte Esterase,Urine Negative (Negative); Nitrite,Urine Negative (Negative); Protein,Urine Negative (Negative); Specific Gravity,Urine 1.018 (1.001-1.035); Urobilinogen,Urine <2.0 mg/dL (<2.0)
--- NOTE | 2020-01-13 19:07 | CT ---
EXAMINATION TYPE: CT abdomen pelvis w con DATE OF EXAM: 01/13/2020 HISTORY: Post OP Left ovary and tube removal. Inability to urinate since this morning. Rule out uret er injury. CT DLP: 1506.2mGycm Automated Exposure Control for Dose Reduction was Utilized. CONTRAST: CT scan of the abdomen and pelvis is performed without oral but with IV Contrast, patient injected wi th 100 mL of Isovue 300. COMPARISON: CT abdomen and pelvis September 17, 2019 FINDINGS: LUNG BASES: No significant abnormality is appreciated. LIVER/GB: Cholecystectomy clips are redemonstrated. PANCREAS: No significant abnormality is seen. SPLEEN: No significant abnormality is seen. ADRENALS: No significant abnormality is seen. KIDNEYS: Symmetric or medullary uptake and excretion without hydronephrosis seen bilaterally. Devi c atheter in bladder. Some filling of bladder with nondependent air presumed product of Devi. No defin itive contrast extravasation. Incomplete opacified left ureter. BOWEL: Suboptimal evaluation of bowel without enteric contrast. No suspicious small or large bowel di latation is present. UTERUS/ADNEXA: Anteverted uterus. Air within the endometrial canal presumed product of recent surgery . Suspect some surrounding fluid extending into bilateral pelvises. Tubal ligation clip on the left. Suspect removal of right-sided tube given this finding. Fecal filled prominence of the right and tejeda sverse colon. LYMPH NODES: No greater than 1cm abdominal or pelvic lymph nodes are appreciated. OSSEOUS STRUCTURES: No significant abnormality is seen. OTHER: Small amount of pneumoperitoneum anterior to the liver presumed related to recent surgery. Mor e prominent subcutaneous air near the right aspect of umbilicus. Mild fat stranding inferior left to this both present product of recent surgery. Small amount of free fluid presacral region presumed pro duct of recent surgery. IMPRESSION: Nonspecific free fluid in pelvis as detailed above. No definitive contrast extravasation to suggest bladder injury. Cannot definitively exclude left ureter injury as only a single delayed po stcontrast study does not show opacification of entire bilateral ureters. Consider repeat scan and ad dendum can be issued.
[2020-01-13 20:19] VITALS: PULSE 77
[2020-01-13] MEDS ORDERED: MORPHINE SULFATE 4 MG/ML SYRINGE IVP STA (20:24)
[2020-01-13] MEDS ORDERED: PHENAZOPYRIDINE 200 MG TAB PO STA (20:25)
[2020-01-13 20:45] VITALS: BP 128/87; RESP 16; TEMP 98
== END 2020-01-13 20:44 | disposition home or self-care (01) ==
LOC: EC 14:46
DX: R33.9 Retention of urine, unspecified (principal); R10.2 Pelvic and perineal pain; N93.9 Abnormal uterine and vaginal bleeding, unspecified; F41.9 Anxiety disorder, unspecified; F32.9 Major depressive disorder, single episode, unspecified; K59.00 Constipation, unspecified; Z79.899 Other long term (current) drug therapy; Z88.0 Allergy status to penicillin; Z88.1 Allergy status to other antibiotic agents; Z88.2 Allergy status to sulfonamides; Z88.8 Allergy status to other drugs, medicaments and biological substances; Z91.048 Other nonmedicinal substance allergy status; Z91.02 Food additives allergy status; Z90.49 Acquired absence of other specified parts of digestive tract; Z98.51 Tubal ligation status; Z90.721 Acquired absence of ovaries, unilateral
CPT/HCPCS: 51798; 36415; 80053; 85025; 81003; 81025; 76770; 74177; 99284; 96374; 96375; 96376; 96361; J2270; J2405; Q9967

== ENCOUNTER 2020-06-09 17:41 | Emergency (ER) | payer OTHER ==
--- NOTE | 2020-06-09 19:32 | ED ---
Extremity Problem HPI - General Chief complaint: Extremity Problem,Nontraumatic Stated complaint: Leg pain Time Seen by Provider: 06/09/20 18:58 Source: patient Mode of arrival: ambulatory Limitations: no limitations - History of Present Illness Initial comments: 29-year-old male presenting to the emergency department with a chief complaint of right leg pain. Patient reports the pain started yesterday with no traumatic injuries. She reports the pain starts in the popliteal region and radiates distally. She does report a throbbing-like sensation. Denies any numbness or tingling. Denies any previous injuries to the region or surgeries. Reports taking Tylenol no significant department symptoms. Denies history of DVT or PE, exogenous estrogen use, recent hospitalizations or unilateral leg swelling. Denies chest pain shortness of breath. - Related Data Home Medications Medication Instructions Recorded Confirmed Sertraline HCl [Zoloft] 100 mg PO HS 12/24/18 05/18/20 Omeprazole [PriLOSEC] 40 mg PO HS 10/22/19 05/18/20 SUMAtriptan succinate [Imitrex] 25 mg PO DAILY PRN 10/22/19 05/18/20 Topiramate [Topamax] 50 mg PO BID 10/22/19 05/18/20 Magnesium Oxide [Mag-Ox] 400 mg PO BID 01/07/20 05/18/20 HYDROcodone/APAP 5-325MG [[place] 1 - 2 tab PO Q4HR PRN 01/13/20 05/18/20 5-325] Ibuprofen [Motrin] 600 mg PO Q8HR PRN 01/13/20 05/18/20 Psyllium Husk 100% [Metamucil 6 gm PO DAILY PRN 01/13/20 05/18/20 Packet] Naproxen 1 tab PO BID 05/18/20 05/18/20 Previous Rx's Medication Instructions Recorded Phenazopyridine [Pyridium] 200 mg PO TID #6 tablet 01/13/20 Allergies Allergy/AdvReac Type Severity Reaction Status Date / Time adhesive tape Allergy Rash/Hives Verified 06/09/20 18:03 aloe vera Allergy Rash/Hives Verified 06/09/20 18:03 azithromycin Allergy Rash/Hives Verified 06/09/20 18:03 cephalexin Allergy Rash/Hives Verified 06/09/20 18:03 metronidazole [From Flagyl] Allergy Rash/Hives Verified 06/09/20 18:03 Penicillins Allergy Rash/Hives Verified 06/09/20 18:03 sulfamethoxazole Allergy Rash/Hives Verified 06/09/20 18:03 [From Bactrim] trimethoprim [From Bactrim] Allergy Rash/Hives Verified 06/09/20 18:03 alprazolam [From Xanax] AdvReac MAKES Verified 06/09/20 18:03 PARANOID dicyclomine [From Bentyl] AdvReac constipatio Verified 06/09/20 18:03 n Review of Systems ROS Statement: Those systems with pertinent positive or pertinent negative responses have been documented in the HPI. ROS Other: All systems not noted in ROS Statement are negative. Past Medical History Past Medical History: Blood Disorder, GERD/Reflux Additional Past Medical History / Comment(s): Endometriosis, polycystic ovarian syndrome. IRON DEFICIENCY ANEMIA. Stomach Ulcer History of Any Multi-Drug Resistant Organisms: None Reported Past Surgical History: Section, Cholecystectomy, Tubal Ligation, Uterine Ablation Additional Past Surgical History / Comment(s): Laparoscopy X2, Section X3. Right ovary and right tube removed - 2020. cyst removed from chest Past Anesthesia/Blood Transfusion Reactions: No Reported Reaction Past Psychological History: Anxiety, Depression Smoking Status: Never smoker Past Alcohol Use History: None Reported Past Drug Use History: None Reported - Past Family History Mother Family Medical History: Hyperlipidemia Additional Family Medical History / Comment(s): Depression and anxiety. General Exam Limitations: no limitations General appearance: alert, in no apparent distress Head exam: Present: atraumatic, normocephalic, normal inspection Eye exam: Present: normal appearance, PERRL, EOMI Pupils: Present: normal accommodation ENT exam: Present: normal exam, normal oropharynx, mucous membranes moist, TM's normal bilaterally, normal external ear exam Neck exam: Present: normal inspection, full ROM. Absent: tenderness Respiratory exam: Present: normal lung sounds bilaterally. Absent: respiratory distress, wheezes, rales Cardiovascular Exam: Present: regular rate, normal rhythm, normal heart sounds. Absent: systolic murmur GI/Abdominal exam: Present: soft. Absent: distended, tenderness, guarding, rebound Extremities exam: Present: normal inspection, full ROM, tenderness (Tenderness in the right lower leg.), normal capillary refill, calf tenderness (Right calf tenderness. Positive Homans.), other (+2 dorsalis pedis and posterior tibialis bilaterally.). Absent: pedal edema, joint swelling Back exam: Present: normal inspection, full ROM. Absent: tenderness, CVA tenderness (R), CVA tenderness (L), muscle spasm, paraspinal tenderness, vertebral tenderness Neurological exam: Present: alert, oriented X3, normal gait Psychiatric exam: Present: normal affect, normal mood. Absent: depressed, agitated Skin exam: Present: warm, dry, intact, normal color Course Vital Signs 06/09/20 06/09/20 18:01 19:03 Temperature 98.3 F Pulse Rate 90 Respiratory 20 18 Rate Blood Pressure 124/76 O2 Sat by Pulse 99 Oximetry Medical Decision Making - Medical Decision Making 29-year-old female presenting to the emergency department with a chief complaint of right leg pain. On physical examination, patient does have calf tenderness but no signs of injury. She is otherwise neurovascularly intact. Ultrasound performed reveals no signs of a DVT. I advised the patient to follow with the primary care physician and an histology specialist. She was advised to take Tylenol for the pain. Strict return parameters were thoroughly discussed with patient is resting agreeable. Case discussed with physician. Disposition Clinical Impression: Right leg pain Disposition: HOME SELF-CARE Condition: Stable Instructions (If sedation given, give patient instructions): Leg Pain (ED) Additional Instructions: Follow with histology specialist. Return to emergency department if symptoms worsen. Is patient prescribed a controlled substance at d/c from ED?: No Referrals: Kirt Noriega MD [Primary Care Provider] - 1-2 days Raj Galvez DO [Doctor of Osteopathic Medicine] - 1-2 days Time of Disposition: 20:08
--- NOTE | 2020-06-09 19:49 | US ---
EXAMINATION TYPE: US venous doppler duplex LE RT DATE OF EXAM: 06/09/2020 7:44 PM COMPARISON: NONE CLINICAL HISTORY: r/o dvt. R/O DVT. Pain x 2 days. No hx of DVT. Patient does not take a blood thinne r. SIDE PERFORMED: Right TECHNIQUE: The lower extremity deep venous system is examined utilizing real time linear array sonog marielos with graded compression, doppler sonography and color-flow sonography. VESSELS IMAGED: Common Femoral Vein Deep Femoral Vein Greater Saphenous Vein * Femoral Vein Popliteal Vein Small Saphenous Vein * Proximal Calf Veins (* superficial vessels) Right Leg: No evidence of DVT in veins imaged at this time from prox calf veins to CFV/GSV. IMPRESSION: Normal exam. No evidence of deep vein thrombosis in the right leg.
[2020-06-09] MEDS ORDERED: ACET/COD 300 MG/30 MG STARTER PACK 6 TAB BTL PO STA (20:17)
[2020-06-09 21:11] VITALS: BP 121/63; PULSE 74; RESP 14; TEMP 98.6
== END 2020-06-09 20:27 | disposition home or self-care (01) ==
LOC: EC 17:41
DX: M79.604 Pain in right leg (principal); F41.9 Anxiety disorder, unspecified; F32.9 Major depressive disorder, single episode, unspecified; K21.9 Gastro-esophageal reflux disease without esophagitis; Z79.899 Other long term (current) drug therapy; Z88.0 Allergy status to penicillin; Z88.1 Allergy status to other antibiotic agents; Z88.2 Allergy status to sulfonamides; Z88.8 Allergy status to other drugs, medicaments and biological substances; Z91.048 Other nonmedicinal substance allergy status
CPT/HCPCS: 99283

== ENCOUNTER 2020-11-27 15:58 | Emergency (ER) | payer OTHER ==
[2020-11-27 16:09] VITALS: BP 125/78; PULSE 80; RESP 18; TEMP 98.8
--- NOTE | 2020-11-27 16:35 | ED ---
Female Urogenital HPI - General Chief complaint: Vaginal Bleeding Stated complaint: Female Time Seen by Provider: 11/27/20 16:10 Source: patient Mode of arrival: ambulatory Limitations: no limitations - History of Present Illness Initial comments: 30-year-old female presenting today for chief complaint of painful skin in her perineum. Patient states it [place] and the P touches the area. She states at times it bleeds. Patient states that she recent had sexual transmitted disease testing which returned negative and was treated for yeast none of which helped. Patient states she has occasional night sweats denies fevers. She denies dysuria urgency frequency from the urethra. She has no additional complaints upon arrival patient appears nontoxic Last Menstrual Period: 08/31/20 - Related Data Home Medications Medication Instructions Recorded Confirmed Sertraline HCl [Zoloft] 100 mg PO HS 12/24/18 09/23/20 Omeprazole [PriLOSEC] 40 mg PO HS 10/22/19 09/23/20 SUMAtriptan succinate [Imitrex] 25 mg PO DAILY PRN 10/22/19 09/23/20 Topiramate [Topamax] 50 mg PO BID 10/22/19 09/23/20 Magnesium Oxide [Mag-Ox] 400 mg PO BID 01/07/20 09/23/20 HYDROcodone/APAP 5-325MG [[place] 1 - 2 tab PO Q4HR PRN 01/13/20 09/23/20 5-325] Ibuprofen [Motrin] 600 mg PO Q8HR PRN 01/13/20 09/23/20 Psyllium Husk 100% [Metamucil 6 gm PO DAILY PRN 01/13/20 09/23/20 Packet] Naproxen 1 tab PO BID 05/18/20 09/23/20 Previous Rx's Medication Instructions Recorded Phenazopyridine [Pyridium] 200 mg PO TID #6 tablet 01/13/20 valACYclovir HCL 1,000 mg PO BID 7 Days #14 tab 11/27/20 Allergies Allergy/AdvReac Type Severity Reaction Status Date / Time adhesive tape Allergy Rash/Hives Verified 11/27/20 16:09 aloe vera Allergy Rash/Hives Verified 11/27/20 16:09 azithromycin Allergy Rash/Hives Verified 11/27/20 16:09 cephalexin Allergy Rash/Hives Verified 11/27/20 16:09 metronidazole [From Flagyl] Allergy Rash/Hives Verified 11/27/20 16:09 Penicillins Allergy Rash/Hives Verified 11/27/20 16:09 sulfamethoxazole Allergy Rash/Hives Verified 11/27/20 16:09 [From Bactrim] trimethoprim [From Bactrim] Allergy Rash/Hives Verified 11/27/20 16:09 alprazolam [From Xanax] AdvReac MAKES Verified 11/27/20 16:09 PARANOID dicyclomine [From Bentyl] AdvReac constipatio Verified 11/27/20 16:09 n Review of Systems ROS Statement: Those systems with pertinent positive or pertinent negative responses have been documented in the HPI. ROS Other: All systems not noted in ROS Statement are negative. Past Medical History Past Medical History: Blood Disorder, GERD/Reflux Additional Past Medical History / Comment(s): Endometriosis, polycystic ovarian syndrome. IRON DEFICIENCY ANEMIA. Stomach Ulcer History of Any Multi-Drug Resistant Organisms: None Reported Past Surgical History: Section, Cholecystectomy, Tubal Ligation, Uterine Ablation Additional Past Surgical History / Comment(s): Laparoscopy X2, Section X3. Right ovary and right tube removed - 2019. cyst removed from chest. AUG 2020 - ADHESION REMOVAL FROM PAST . Vaginal ablation/endometriosis Past Anesthesia/Blood Transfusion Reactions: No Reported Reaction Past Psychological History: Anxiety, Depression Smoking Status: Never smoker Past Alcohol Use History: None Reported Past Drug Use History: None Reported - Past Family History Mother Family Medical History: Hyperlipidemia Additional Family Medical History / Comment(s): Depression and anxiety. General Exam - General Exam Comments Initial Comments: General: The patient is awake and alert, in no distress, and does not appear acutely ill. Eye: Pupils are equal, round and reactive to light, extra-ocular movements are intact. No nystagmus. There is normal conjunctiva bilaterally. No signs of icterus. Gastrointestinal: Soft, non-distended, non-tender abdomen without masses or organomegaly noted. There is no rebound or guarding present. : three is ulcerative lesion on labia minor, near introitus and on perineum Musculoskeletal: Normal ROM, no tenderness. Strength 5/5. Sensation intact. Pulses equal bilaterally 2+. Neurological: A&O x 3. CN II-XII intact, There are no obvious motor or sensory deficits. Coordination appears grossly intact. Speech is normal. Skin: Skin is warm and dry and no rashes or lesions are noted. Psychiatric: Cooperative, appropriate mood & affect, normal judgment. Limitations: no limitations Course Vital Signs 11/27/20 16:01 Temperature 98.8 F Pulse Rate 80 Respiratory 18 Rate Blood Pressure 125/78 O2 Sat by Pulse 100 Oximetry Medical Decision Making - Medical Decision Making Findings a physical examination most consistent with herpes simplex infection. Patient had spots that are pending. will be discharged on valtrex. pt is to f/u with OBGYN. discussed safe sex - Lab Data Lab Results 11/27/20 Range/Units 16:30 Urine Color Light Yellow Urine Appearance Clear (Clear) Urine pH 6.0 (5.0-8.0) Ur Specific [place] 1.012 (1.001-1.035) Urine Protein Negative (Negative) Urine Glucose (UA) Negative (Negative) Urine Ketones Negative (Negative) Urine Blood Negative (Negative) Urine Nitrite Negative (Negative) Urine Bilirubin Negative (Negative) Urine Urobilinogen <2.0 (<2.0) mg/dL Ur Leukocyte Esterase Negative (Negative) Disposition Clinical Impression: Vaginal lesion Disposition: HOME SELF-CARE Condition: Good Instructions (If sedation given, give patient instructions): Genital Herpes Simplex (ED) Additional Instructions: Please use medication as discussed. Please follow-up with family doctor in the next 2 days, recommend OBGYN follow-up. Please return to emergency room if the symptoms increase or worsen or for any other concerns. Prescriptions: valACYclovir HCL 1,000 mg PO BID 7 Days #14 tab Is patient prescribed a controlled substance at d/c from ED?: No Referrals: Kirt Noriega MD [Primary Care Provider] - 1-2 days Time of Disposition: 16:35
[2020-11-27] MEDS ORDERED: valACYclovir HCL 1,000 MG TABLET PO STA (16:36)
[2020-11-27 16:41] LABS: Appearance,Urine Clear (Clear); Bilirubin,Urine Negative (Negative); Blood,Urine Negative (Negative); Color,Urine Light Yellow; Glucose,Urine (UA) Negative (Negative); Ketones,Urine Negative (Negative); Leukocyte Esterase,Urine Negative (Negative); Nitrite,Urine Negative (Negative); Protein,Urine Negative (Negative); Specific Gravity,Urine 1.012 (1.001-1.035); Urobilinogen,Urine <2.0 mg/dL (<2.0)
== END 2020-11-27 17:00 | disposition home or self-care (01) ==
LOC: EC 15:58
DX: N89.8 Other specified noninflammatory disorders of vagina (principal); N93.9 Abnormal uterine and vaginal bleeding, unspecified; R61 Generalized hyperhidrosis; E28.2 Polycystic ovarian syndrome; K21.9 Gastro-esophageal reflux disease without esophagitis; F41.9 Anxiety disorder, unspecified; F32.9 Major depressive disorder, single episode, unspecified; Z88.0 Allergy status to penicillin; Z79.899 Other long term (current) drug therapy
CPT/HCPCS: 81003; 87529; 99284

== ENCOUNTER 2021-02-15 16:45 | Observation (INO) | payer OTHER ==
[2021-02-15] MEDS ORDERED: SODIUM CHLORIDE 0.9% 1,000 ML IV STA (17:06)
[2021-02-15] MEDS ORDERED: KETOROLAC 15 MG/ML 1 ML VIAL IVP STA (17:19)
[2021-02-15] MEDS ORDERED: ONDANSETRON 4 MG/2 ML VIAL IVP STA ×2 (17:19→20:26)
[2021-02-15] MEDS ORDERED: MORPHINE SULFATE 4 MG/ML SYRINGE IVP STA ×2 (17:19→18:50)
[2021-02-15 17:32] LABS: Appearance,Urine Clear (Clear); Bilirubin,Urine Negative (Negative); Color,Urine Light Yellow; Glucose,Urine (UA) Negative (Negative); Ketones,Urine Negative (Negative); PH, Urine 5.5 (5.0-8.0); Protein,Urine Negative (Negative); Specific Gravity,Urine 1.015 (1.001-1.035)
[2021-02-15 17:33] LABS: Blood,Urine Negative (Negative); Leukocyte Esterase,Urine Negative (Negative); Nitrite,Urine Negative (Negative); Urobilinogen,Urine <2.0 mg/dL (<2.0)
[2021-02-15 17:43] LABS: Basophils % (A) 1 %; Eosinophils # (A) 0.1 k/uL (0-0.7); Eosinophils % (A) 2 %; HCT 36.1 % (34.0-46.0); HGB 12.5 gm/dL (11.4-16.0); Lymphocytes # (A) 1.5 k/uL (1.0-4.8); Lymphocytes % (A) 31 %; MCH 31.8 pg (25.0-35.0); MCHC 34.5 g/dL (31.0-37.0); MCV 92.3 fL (80.0-100.0); Mean Platelet Volume 7.7; Monocytes # (A) 0.2 k/uL (0-1.0); Monocytes % (A) 5 %; Neutrophils # (A) 2.9 k/uL (1.3-7.7); Neutrophils % (A) 60 %; Platelet Count 228 k/uL (150-450); RBC 3.92 m/uL (3.80-5.40); WBC 4.8 k/uL (3.8-10.6)
[2021-02-15 18:03] LABS: INR 0.9 (<1.2); Prothrombin Time 9.6 sec (9.0-12.0)
[2021-02-15 18:11] LABS: Partial Thromboplastin Time 21.1 sec (22.0-30.0)
--- NOTE | 2021-02-15 18:23 | CT ---
EXAMINATION TYPE: CT abdomen pelvis w con DATE OF EXAM: 02/15/2021 COMPARISON: 01/13/2020 HISTORY: Right lower quadrant pain, diarrhea, nausea. History of PCOS and endometriosis. CT DLP: 1160.4 mGycm Automated exposure control for dose reduction was used. CONTRAST: Performed with IV Contrast, patient injected with 100 mL of Isovue 300. Lung bases are clear. There is no pleural effusion. Heart size is normal. There is no pericardial eff usion. There is small hiatal hernia. Liver spleen stomach pancreas appear intact. The bile ducts are not dilated. There are clips from cho lecystectomy. There is no adrenal mass. Kidneys show satisfactory contrast opacification. There is no hydronephrosi s. The ureters are not dilated. There is no retroperitoneal adenopathy. Bladder distends smoothly. Th ere is no inguinal hernia. Uterus is anteverted. I see no pelvic mass. There is very tiny amount of f ree fluid in the pelvis. This is low-density and could be physiologic. The lumbar vertebra have normal alignment. Disc spaces are fairly normal. There is no compression fra cture. Bony pelvis is intact. Hip joints appear intact. Appendix appears normal. There is no mesenter ic edema. There is no ascites or free air. There is no bowel obstruction. IMPRESSION: Tiny amount of low-density free fluid in the pelvis is improved compared to old exam.
--- NOTE | 2021-02-15 20:09 | US ---
EXAMINATION TYPE: US transvaginal DATE OF EXAM: 02/15/2021 COMPARISON: CT, US CLINICAL HISTORY: with duplex. . R/O torsion versus cyst with PCOS. Hx ablation, , tubal lig ation, PCOS, right ovary removed. Hx 2 miscarriages. . Pain TECHNIQUE: Transvaginal (TV). Date of LMP: 08/29/2020 EXAM MEASUREMENTS: Uterus: 7.4 x 4.1 x 3.4 cm Endometrial Stripe: Unable to visualize. Left Ovary: 4.4 x 2.5 x 2.5 cm 1. Uterus: Anteverted. Appears very heterogeneous. Hypoechoic, heterogeneous, and indistinct area se en superiorly: 1.3 x 1.2 x 1.4 cm. Complex area seen in cervix: 0.6 x 0.5 x 0.6 cm. 2. Endometrium: Anechoic area seen in lower endometrium: 1.4 x 0.4 x 0.3 cm. 3. Right Ovary: Removed. 4. Left Ovary: Multiple anechoic areas seen, largest measures 1.9 x 1.7 x 1.5 cm. Spectral, color and waveform doppler imaging shows arterial and venous flow within the left ovary. Right ovary surgically absent per patient. 5. Bilateral Adnexa: Appear wnl. 6. Posterior cul-de-sac: Fluid seen measuring 2.2 x 2.9 x 2.1 cm. IMPRESSION: There is small amount of fluid in the lower uterine segment. No evidence of endometrial mass. Absent right ovary. No evidence of ovarian torsion on the left side. Small amount of fluid in the cul-de-sac measuring 3 x 2 cm.
[2021-02-15] MEDS ORDERED: SODIUM CHLORIDE 0.9% 1,000 ML IV ONE (20:24)
[2021-02-15] MEDS ORDERED: ACETAMINOPHEN TAB 325 MG TAB PO PRN (20:24)
[2021-02-15] MEDS ORDERED: NALOXONE 0.4 MG/ML 1 ML VIAL IV PRN (20:24)
[2021-02-15] MEDS: FAMOTIDINE 20 MG TAB PO SCH (20:35)
--- NOTE | 2021-02-15 21:25 | ED ---
General Adult HPI - General Chief complaint: Abdominal Pain Stated complaint: Pain in right side of stomach, Nausea Time Seen by Provider: 02/15/21 16:59 Source: patient, RN notes reviewed, old records reviewed Mode of arrival: ambulatory Limitations: no limitations - History of Present Illness Initial comments: Patient is a 30-year-old female with past medical history remarkable for endometriosis, polycystic ovarian syndrome, multiple pelvic surgeries including right nephrectomy, cholecystectomy, as well as chronic abdominal pain that is intermittent presents emergency Department complaining of abdominal pain with associated nausea, vomiting, diarrhea for the last 1-2 days. She states that it is been persistent pain primarily in the right lower quadrant and suprapubic region. She states this is different than her typical endometriosis pain. She describes it as an achy, sharp pain that is nonradiating. She denies any vaginal discharge or bleeding. Denies any dysuria or hematuria. She does endorse 2 or 3 episodes of diarrhea but are loose and brown without any obvious blood. Patient endorses nausea, as well as multiple episodes of nonbilious emesis. She has a lack of appetite. Denies any fevers, chills, sick contacts. Denies any chest pain, shortness of breath. Rosa has no acute complaints at this time. Patient is concerned because her abdominal pain is different than her typical pain that she experiences and is not normally associated with nausea, vomiting, diarrhea. She denies any known sick contacts at home. She's not been able to tolerate any by mouth intake last 1 day or so. - Related Data Home Medications Medication Instructions Recorded Confirmed Sertraline HCl [Zoloft] 100 mg PO HS 12/24/18 02/15/21 Omeprazole [PriLOSEC] 40 mg PO HS 10/22/19 02/15/21 Albuterol Sulfate [Proair Hfa] 1 - 2 puff INHALATION RT-Q6H PRN 02/15/21 02/15/21 Norelgestromin/Ethin.estradiol 1 patch TD TH 02/15/21 02/15/21 [Xulane 150-35 Mcg/Day Patch] Allergies Allergy/AdvReac Type Severity Reaction Status Date / Time adhesive tape Allergy Rash/Hives Verified 02/15/21 22:45 aloe vera Allergy Rash/Hives Verified 02/15/21 22:45 azithromycin Allergy Rash/Hives Verified 02/15/21 22:45 cephalexin Allergy Rash/Hives Verified 02/15/21 22:45 metronidazole [From Flagyl] Allergy Rash/Hives Verified 02/15/21 22:45 Penicillins Allergy Rash/Hives Verified 02/15/21 22:45 sulfamethoxazole Allergy Rash/Hives Verified 02/15/21 22:45 [From Bactrim] trimethoprim [From Bactrim] Allergy Rash/Hives Verified 02/15/21 22:45 alprazolam [From Xanax] AdvReac MAKES Verified 02/15/21 22:45 PARANOID dicyclomine [From Bentyl] AdvReac constipatio Verified 02/15/21 22:45 n Review of Systems ROS Statement: Those systems with pertinent positive or pertinent negative responses have been documented in the HPI. Review of Systems: CONST: Denies fever EYES: Denies blurry vision ENT: Denies nasal congestion C/V: Denies Chest pain RESP: Denies shortness of breath GI: Endorses abdominal pain : Denies dysuria SKIN: Denies rash. MSK: Denies joint pain. NEURO: Denies headache ROS Other: All systems not noted in ROS Statement are negative. Past Medical History Past Medical History: Blood Disorder, GERD/Reflux Additional Past Medical History / Comment(s): Endometriosis, polycystic ovarian syndrome. IRON DEFICIENCY ANEMIA. Stomach Ulcer History of Any Multi-Drug Resistant Organisms: None Reported Past Surgical History: Ablation, Section, Cholecystectomy, Tubal Ligation, Uterine Ablation Additional Past Surgical History / Comment(s): Laparoscopy X2, Section X3. Right ovary and right tube removed - 2019. cyst removed from chest. AUG 2020 - ADHESION REMOVAL FROM PAST . Vaginal ablation/endometriosis Past Anesthesia/Blood Transfusion Reactions: No Reported Reaction Past Psychological History: Anxiety, Depression Smoking Status: Never smoker Past Alcohol Use History: None Reported Past Drug Use History: None Reported - Past Family History Mother Family Medical History: Hyperlipidemia Additional Family Medical History / Comment(s): Depression and anxiety. General Exam - General Exam Comments Initial Comments: General: Appears in mild to moderate distress secondary to abdominal pain. HEAD: Normal with no signs of head trauma. EYES: PERRLA, EOMI, conjunctiva normal, no discharge. ENT: Hearing grossly intact, normal oropharynx. Patient is mildly dry mucous membranes. RESPIRATORY: Clear breath sounds bilaterally. No wheezes, rales, or rhonchi. C/V: Regular rate and rhythm. S1 and S2 auscultated, no edema, peripheral pulses 2+ and intact throughout ABD: Abdomen soft, nondistended. Patient does have tenderness to palpation primarily in the right lower quadrant with some mild radiation to the suprapubic region. McBurney's point is positive. Lind sign is negative. Rovsing sign is negative. EXT: Normal range of motion, no obvious deformity SKIN: No rashes or lesions observed on exposed skin. NEURO: Alert and oriented 4. Limitations: no limitations Course Vital Signs 02/15/21 16:49 Temperature 98.1 F Pulse Rate 78 Respiratory 17 Rate Blood Pressure 121/84 O2 Sat by Pulse 99 Oximetry Medical Decision Making - Medical Decision Making Based on the patient's presentation and physical exam, I'm concerned for acute intra-abdominal process for the patient, including appendicitis. She does have chronic abdominal pain, however states is different than typically is not associated with nausea and vomiting as well as diarrhea which is new. I cannot rule out the possibility possible viral syndrome either. Therefore we will obtain abdominal laboratory studies as well as urine studies and pink test. CT and pelvis will be obtained to evaluate for acute appendicitis. She'll be sent medically treated with 1 L fluid bolus, IV Toradol, morphine, Zofran, famotidine, Benadryl. She was in agreement this plan. Patient's laboratory studies are relatively unremarkable. Patient's CMP as well as lipase apparently were canceled for unknown reasons. There are re-ordered and are still pending at this time. CT abdomen and pelvis was unremarkable. Reevaluation, patient attempted a by mouth trial but failed. I did discuss with her obtaining an ultrasound rule out possible torsion. She does have history of PCOS, she was in agreement this plan. She still having abdominal pain at this time. She was dosed more pain medications. Patient's ultrasound was negative for torsion and acute process. On reevaluation, patient still cannot tolerate by mouth intake. She is still complaining of intermittent abdominal pain. It is discussed with her that I would like to admit to the hospital for intractable nausea and vomiting and abdominal pain of unknown etiology. She was in agreement this plan. I spoke with the admitting team under Dr. Huff who accepted the patient. I informed him of the cancelled labs and the pending re-ordered labs and he agreed to follow up on them. Patient was therefore admitted to observation in stable condition. - Lab Data Result diagrams: 02/15/21 17:19 Lab Results 02/15/21 02/15/21 02/15/21 Range/Units 17:19 17:19 17:19 WBC 4.8 (3.8-10.6) k/uL RBC 3.92 (3.80-5.40) m/uL Hgb 12.5 (11.4-16.0) gm/dL Hct 36.1 (34.0-46.0) % MCV 92.3 (80.0-100.0) fL MCH 31.8 (25.0-35.0) pg MCHC 34.5 (31.0-37.0) g/dL RDW 13.0 (11.5-15.5) % Plt Count 228 (150-450) k/uL MPV 7.7 Neutrophils % 60 % Lymphocytes % 31 % Monocytes % 5 % Eosinophils % 2 % Basophils % 1 % Neutrophils # 2.9 (1.3-7.7) k/uL Lymphocytes # 1.5 (1.0-4.8) k/uL Monocytes # 0.2 (0-1.0) k/uL Eosinophils # 0.1 (0-0.7) k/uL Basophils # 0.0 (0-0.2) k/uL PT 9.6 (9.0-12.0) sec INR 0.9 (<1.2) APTT 21.1 L (22.0-30.0) sec Urine Color Light Yellow Urine Appearance Clear (Clear) Urine pH 5.5 (5.0-8.0) Ur Specific Jackson 1.015 (1.001-1.035) Urine Protein Negative (Negative) Urine Glucose (UA) Negative (Negative) Urine Ketones Negative (Negative) Urine Blood Negative (Negative) Urine Nitrite Negative (Negative) Urine Bilirubin Negative (Negative) Urine Urobilinogen <2.0 (<2.0) mg/dL Ur Leukocyte Esterase Negative (Negative) Urine HCG, Qual (Not Detectd) 02/15/21 Range/Units 17:19 WBC (3.8-10.6) k/uL RBC (3.80-5.40) m/uL Hgb (11.4-16.0) gm/dL Hct (34.0-46.0) % MCV (80.0-100.0) fL MCH (25.0-35.0) pg MCHC (31.0-37.0) g/dL RDW (11.5-15.5) % Plt Count (150-450) k/uL MPV Neutrophils % % Lymphocytes % % Monocytes % % Eosinophils % % Basophils % % Neutrophils # (1.3-7.7) k/uL Lymphocytes # (1.0-4.8) k/uL Monocytes # (0-1.0) k/uL Eosinophils # (0-0.7) k/uL Basophils # (0-0.2) k/uL PT (9.0-12.0) sec INR (<1.2) APTT (22.0-30.0) sec Urine Color Urine Appearance (Clear) Urine pH (5.0-8.0) Ur Specific Jackson (1.001-1.035) Urine Protein (Negative) Urine Glucose (UA) (Negative) Urine Ketones (Negative) Urine Blood (Negative) Urine Nitrite (Negative) Urine Bilirubin (Negative) Urine Urobilinogen (<2.0) mg/dL Ur Leukocyte Esterase (Negative) Urine HCG, Qual Not Detected (Not Detectd) Disposition Clinical Impression: Abdominal pain of unknown etiology, Nausea and vomiting, History of endometriosis Disposition: ADMITTED IP TO THIS [facility] Condition: Stable
[2021-02-15] MEDS: MORPHINE SULFATE 4 MG/ML SYRINGE IV PRN (21:43)
[2021-02-15] MEDS: KETOROLAC 15 MG/ML 1 ML VIAL IVP PRN (23:24)
[2021-02-15 23:30] LABS: ALT 15 U/L (4-34); AST 22 U/L (14-36); African American GFR (CKD) >90 (>60 ml/min/1.73 sqM); Albumin 3.2 g/dL (3.5-5.0); Alkaline Phosphatase 74 U/L (38-126); Anion Gap 3 mmol/L; Blood Urea Nitrogen 9 mg/dL (7-17); Calcium 8.9 mg/dL (8.4-10.2); Carbon Dioxide 24 mmol/L (22-30); Chloride 109 mmol/L (98-107); Glucose 100 mg/dL (74-99); Lipase 21 U/L (23-300); Non-African American GFR(CKD) >90 (>60 ml/min/1.73 sqM); Potassium 3.9 mmol/L (3.5-5.1); Sodium 136 mmol/L (137-145); Total Bilirubin 0.2 mg/dL (0.2-1.3); Total Protein 5.8 g/dL (6.3-8.2)
--- NOTE | 2021-02-16 00:41 | P.HPIM ---
History of Present Illness H&P Date: 02/16/21 The patient is a 30-year-old female with a PMH of endometriosis status post right oophorectomy, and PCOS who presented to the emergency room with complaints of abdominal pain, nausea, vomiting, diarrhea. Patient reports that she had been in her usual state of health until about one to 2 days ago when she developed this aching 8 out of 10 right lower quadrant abdominal discomfort. The patient reports that the pain was radiating to the suprapubic region, with no clear alleviating or exacerbating features. She notes this soon after the pain, she developed diarrhea with loose brown bowel movements, nonbloody, non- mucousy. She denied associated fever or chills. Reported nausea but without vo miting. Reports having finished a course of oral antibiotics for UTI roughly one week ago. The patient notes that this pain is different from her endometriosis pain which had been largely controlled since August after she underwent a surgical procedure. Denies cough, chest pain, shortness of breath. He also denied headaches, weakness, numbness, tingling, visual disturbances. Denied sick contacts or recent travel. At time of evaluation, the patient reports that her pain had improved to a 1 out of 10 after having received the pain medications in the emergency room. She underwent an extensive evaluation in the emergency room with a CT abdomen and pelvis with contrast unremarkable. Transvaginal ultrasound was also unremarkable. Her vital signs in the emergency room were also unremarkable upon presentation with BP 121/84, pulse 78, SpO2 99% on room air. Laboratory evaluation was remarkable for WBC count of 4.8, AST 22, ALT 15, lipase 21, and unremarkable UA. Review of systems: Pertinent positives and negatives as discussed in HPI, a complete review of systems was performed and all other systems are negative. Physical examination: General: non toxic, no distress, appears at stated age, obese Derm: no unusual rashes/lesions no unusual ecchymoses, warm, dry Head: atraumatic, normocephalic, symmetric Eyes: EOMI, no lid lag, anicteric sclera, pupils equal round reactive to light ENT: Nose and ears atraumatic, no thrush, no pharyngeal erythema Neck: No thyromegaly, no cervical lymphadenopathy, trachea midline, supple Mouth: no lip lesion, mucus membranes moist Cardiovascular: S1S2 reg, no murmur, positive posterior tibial pulse bilateral, no edema, capillary refill less than 2 seconds Lungs: CTA bilateral, no rhonchi, no rales , no accessory muscle use Abdominal: soft, minimal right lower quadrant and suprapubic tenderness to palpation, no guarding, no appreciable organomegaly, normal bowel sounds Ext: no gross muscle atrophy, muscle strength 5 out of 5 in all 4 extremities grossly, no contractures, Neuro: CN II-XI grossly intact, light touch intact all 4 extremities, finger to nose within normal limits, Psych: Alert, oriented, appropriate affect Assessment/plan Abdominal pain, nausea, vomiting, diarrhea - suspected viral gastroenteritis -Check for C. diff -IV fluids -Diet as tolerated -Antiemetics -Pain control DVT prophylaxis -Heparin subq The patient is admitted with an anticipated less than 2 midnight stay for evaluation of abdominal pain CODE STATUS: Full Code Discussed with: patient Anticipated discharge date: in am Anticipated discharge place: Home Past Medical History Past Medical History: Blood Disorder, GERD/Reflux Additional Past Medical History / Comment(s): Endometriosis, polycystic ovarian syndrome. IRON DEFICIENCY ANEMIA. Stomach Ulcer History of Any Multi-Drug Resistant Organisms: None Reported Past Surgical History: Ablation, Section, Cholecystectomy, Tubal Ligation, Uterine Ablation Additional Past Surgical History / Comment(s): Laparoscopy X2, Section X3. Right ovary and right tube removed - 2019. cyst removed from chest. AUG 2020 - ADHESION REMOVAL FROM PAST . Vaginal ablation/endometriosis Past Anesthesia/Blood Transfusion Reactions: No Reported Reaction Past Psychological History: Anxiety, Depression Smoking Status: Never smoker Past Alcohol Use History: None Reported Past Drug Use History: None Reported - Past Family History Mother Family Medical History: Hyperlipidemia Additional Family Medical History / Comment(s): Depression and anxiety. Medications and Allergies Home Medications Medication Instructions Recorded Confirmed Type Sertraline HCl [Zoloft] 100 mg PO HS 12/24/18 02/15/21 History Omeprazole [PriLOSEC] 40 mg PO HS 10/22/19 02/15/21 History Albuterol Sulfate [Proair Hfa] 1 - 2 puff INHALATION RT-Q6H PRN 02/15/21 02/15/21 History Norelgestromin/Ethin.estradiol 1 patch TD TH 02/15/21 02/15/21 History [Xulane 150-35 Mcg/Day Patch] Allergies Allergy/AdvReac Type Severity Reaction Status Date / Time adhesive tape Allergy Rash/Hives Verified 02/15/21 22:45 aloe vera Allergy Rash/Hives Verified 02/15/21 22:45 azithromycin Allergy Rash/Hives Verified 02/15/21 22:45 cephalexin Allergy Rash/Hives Verified 02/15/21 22:45 metronidazole [From Flagyl] Allergy Rash/Hives Verified 02/15/21 22:45 Penicillins Allergy Rash/Hives Verified 02/15/21 22:45 sulfamethoxazole Allergy Rash/Hives Verified 02/15/21 22:45 [From Bactrim] trimethoprim [From Bactrim] Allergy Rash/Hives Verified 02/15/21 22:45 alprazolam [From Xanax] AdvReac MAKES Verified 02/15/21 22:45 PARANOID dicyclomine [From Bentyl] AdvReac constipatio Verified 02/15/21 22:45 n Physical Exam Vitals: Vital Signs Temp Pulse Pulse Resp BP BP Pulse Ox 02/15/21 21:47 98.6 F 65 18 121/81 97 02/15/21 16:49 98.1 F 78 17 121/84 99 Intake and Output 02/15/21 02/15/21 02/16/21 14:59 22:59 06:59 Other: Voiding Method Toilet # Voids 1 Weight 85.8 kg Results CBC & Chem 7: 02/15/21 17:19 02/15/21 22:48 Labs: Abnormal Lab Results - Last 24 Hours (Table) 02/15/21 Range/Units 17: APTT 21.1 L (22.0-30.0) sec Thrombosis Risk Factor Assmnt - Choose All That Apply Any of the Below Risk Factors Present?: Yes Each Factor Represents 1 point: Obesity (BMI >25) Other Risk Factors: Yes Each Risk Factor Represents 3 Points: Family history of DVT/PE Thrombosis Risk Factor Assessment Total Risk Factor Score: 4 Thrombosis Risk Factor Assessment Level: Moderate Risk
[2021-02-16] MEDS: MORPHINE SULFATE 4 MG/ML SYRINGE IV PRN ×4 (01:42→19:44)
[2021-02-16] MEDS: ONDANSETRON 4 MG/2 ML VIAL IVP PRN ×3 (05:48→22:04)
[2021-02-16] MEDS: FAMOTIDINE 20 MG TAB PO SCH ×2 (08:38→20:37)
[2021-02-16] MEDS: KETOROLAC 15 MG/ML 1 ML VIAL IVP PRN ×2 (08:38→14:41)
[2021-02-16] MEDS: HEPARIN SODIUM,PORCINE/PF 5,000 UNIT/0.5 ML SYRINGE SQ SCH ×3 (08:39→23:31)
--- NOTE | 2021-02-16 15:11 | P.PN ---
Subjective Progress Note Date: 02/16/21 Ongoing nausea/vomiting/abd cramping, though improved. Had emesis after lunch today, did not eat much of her meal, still not tolerating PO. Objective - Vital Signs Vital signs: Vital Signs Temp 98.2 F 02/16/21 14:30 Pulse 64 02/16/21 14:30 Resp 16 02/16/21 14:30 BP 118/80 02/16/21 14:30 Pulse Ox 100 02/16/21 14:30 Intake & Output 02/15/21 02/16/21 02/16/21 18:59 06:59 18:59 Output Total 30 Balance -30 Weight 87.997 kg 85.8 kg Output: Emesis 30 Other: Voiding Method Toilet # Voids 1 1 - Exam Gen: awake, alert HEENT: normocephalic, atraumatic, good hearing acuity, moist mucous membranes Resp: good air exchange, breathing comfortably with no accessory muscle use CVS: good distal perfusion x 4, GI: soft, ttp worse in the RLQ, ND : no SPT, no CVAT, chou catheter not present MSK: no pitting edema, no clubbing Neuro: non-focal, moving all extremities Psych: cooperative, euthymic mood - Labs CBC & Chem 7: 02/15/21 17:19 02/15/21 22:48 Labs: Abnormal Lab Results - Last 24 Hours (Table) 02/15/21 02/15/21 Range/Units 17:19 22:48 APTT 21.1 L (22.0-30.0) sec Sodium 136 L (137-145) mmol/L Chloride 109 H (98-107) mmol/L Glucose 100 H (74-99) mg/dL Total Protein 5.8 L (6.3-8.2) g/dL Albumin 3.2 L (3.5-5.0) g/dL Lipase 21 L (23-300) U/L Assessment and Plan Assessment: Abdominal pain, nausea, vomiting, diarrhea - suspected viral gastroenteritis -IV fluids -Diet as tolerated -Antiemetics -Pain control DVT prophylaxis -Heparin subq The patient is admitted with an anticipated less than 2 midnight stay for evaluation of abdominal pain CODE STATUS: Full Code Discussed with: patient Anticipated discharge date: in am Anticipated discharge place: Home
[2021-02-16] MEDS: SODIUM CHLORIDE 0.9% 1,000 ML IV SCH (23:59)
[2021-02-17] MEDS: MORPHINE SULFATE 4 MG/ML SYRINGE IV PRN (00:14)
[2021-02-17 01:01] VITALS: TEMP 98.6
[2021-02-17] MEDS: KETOROLAC 15 MG/ML 1 ML VIAL IVP PRN (07:17)
[2021-02-17] MEDS: HEPARIN SODIUM,PORCINE/PF 5,000 UNIT/0.5 ML SYRINGE SQ SCH (07:50)
[2021-02-17] MEDS: FAMOTIDINE 20 MG TAB PO SCH (07:50)
[2021-02-17 07:56] VITALS: BP 145/90; PULSE 76; RESP 18
[2021-02-17] MEDS: SODIUM CHLORIDE 0.9% 1,000 ML IV SCH (09:56)
--- NOTE | 2021-02-17 13:30 | P.DS ---
Providers Date of admission: 02/15/21 20:26 Expected date of discharge: 02/17/21 Attending physician: Yvan Huff MD Primary care physician: [facility] Course: The patient is a 30-year-old female with a PMH of endometriosis status post right oophorectomy, and PCOS who presented to the emergency room with complaints of abdominal pain, nausea, vomiting, diarrhea. Patient reports that she had been in her usual state of health until about one to 2 days ago when she developed this aching 8 out of 10 right lower quadrant abdominal discomfort. The patient reports that the pain was radiating to the suprapubic region, with no clear alleviating or exacerbating features. She notes this soon after the pain, she developed diarrhea with loose brown bowel movements, nonbloody, non- mucousy. She denied associated fever or chills. Reported nausea but without vomiting. Reports having finished a course of oral antibiotics for UTI roughly one week ago. The patient notes that this pain is different from her endometriosis pain which had been largely controlled since August after she underwent a surgical procedure. Denies cough, chest pain, shortness of breath. He also denied headaches, weakness, numbness, tingling, visual disturbances. Denied sick contacts or recent travel. At time of evaluation, the patient reports that her pain had improved to a 1 out of 10 after having received the pain medications in the emergency room. She underwent an extensive evaluation in the emergency room with a CT abdomen and pelvis with contrast unremarkable. Transvaginal ultrasound was also unremarkable. Her vital signs in the emergency room were also unremarkable upon presentation with BP 121/84, pulse 78, SpO2 99% on room air. Laboratory evaluation was remarkable for WBC count of 4.8, AST 22, ALT 15, lipase 21, and unremarkable UA. Viral Gastroenteritis Patient was started on IVF, anti-emetics, and provided pain control. By the following day after admission, nausea and vomiting and abd cramping had improved, but not completely resolved. She was kept an additional night for continued intolerance to PO. She did progress well after lunch the second day, and by the time of discharge, had not had any additional emesis episodes in over 12 hours, and was tolerating a full diet. Pt was counseled on a bland diet and electrolyte rehydration with gatorade/pedialyte as an outpatient. She was also advised to f/u with PCP on discharge within 1 week. Assessment: Gen: awake, alert HEENT: normocephalic, atraumatic, good hearing acuity, moist mucous membranes Resp: good air exchange, breathing comfortably with no accessory muscle use CVS: good distal perfusion x 4, GI: soft, ttp worse in the RLQ, ND : no SPT, no CVAT, chou catheter not present MSK: no pitting edema, no clubbing Neuro: non-focal, moving all extremities Psych: cooperative, euthymic mood Patient Condition at Discharge: Good Plan - Discharge Summary New Discharge Prescriptions: New Acetaminophen Tab [Tylenol] 650 mg PO Q6HR PRN tab PRN Reason: Mild Pain Or Fever > 100.5 Continue Sertraline HCl [Zoloft] 100 mg PO HS Omeprazole [PriLOSEC] 40 mg PO HS Albuterol Sulfate [Proair Hfa] 1 - 2 puff INHALATION RT-Q6H PRN PRN Reason: Shortness Of Breath Norelgestromin/Ethin.estradiol [Xulane 150-35 Mcg/Day Patch] 1 patch TD Discharge Medication List Sertraline HCl [Zoloft] 100 mg PO HS 12/24/18 [History] Omeprazole [PriLOSEC] 40 mg PO HS 10/22/19 [History] Albuterol Sulfate [Proair Hfa] 1 - 2 puff INHALATION RT-Q6H PRN 02/15/21 [History] Norelgestromin/Ethin.estradiol [Xulane 150-35 Mcg/Day Patch] 1 patch TD TH 02/15/21 [History] Acetaminophen Tab [Tylenol] 650 mg PO Q6HR PRN tab 02/17/21 [Rx] Follow up Appointment(s)/Referral(s): Kirt Noriega MD [Primary Care Provider] - 1 Week Patient Instructions/Handouts: Gastritis (DC) Activity/Diet/Wound Care/Special Instructions: continue diet as tolerated. fluids are encouraged. follow up with physicians as directed. Call physician with any questions comments concerns worsening returning symptoms, fever, not tolerating a diet or fluids, pain not controlled with Tylenol and Motrin. Discharge Disposition: HOME SELF-CARE
== END 2021-02-17 12:52 | disposition home or self-care (01) ==
LOC: EC 16:45 → 6PED 20:26
PROVIDERS: ADMIT Internal Medicine; ATTEND Internal Medicine
DX: A08.4 Viral intestinal infection, unspecified (principal); D50.9 Iron deficiency anemia, unspecified; E28.2 Polycystic ovarian syndrome; N80.9 Endometriosis, unspecified; K21.9 Gastro-esophageal reflux disease without esophagitis; F32.9 Major depressive disorder, single episode, unspecified; F41.9 Anxiety disorder, unspecified; E66.9 Obesity, unspecified; Z68.38 Body mass index [BMI] 38.0-38.9, adult; Z79.3 Long term (current) use of hormonal contraceptives; Z79.899 Other long term (current) drug therapy; Z88.1 Allergy status to other antibiotic agents; Z88.3 Allergy status to other anti-infective agents; Z88.0 Allergy status to penicillin; Z88.2 Allergy status to sulfonamides; Z88.8 Allergy status to other drugs, medicaments and biological substances; Z91.048 Other nonmedicinal substance allergy status; Z87.11 Personal history of peptic ulcer disease; Z90.5 Acquired absence of kidney; Z90.49 Acquired absence of other specified parts of digestive tract; Z98.891 History of uterine scar from previous surgery; Z98.51 Tubal ligation status; Z90.79 Acquired absence of other genital organ(s); Z90.721 Acquired absence of ovaries, unilateral; Z87.440 Personal history of urinary (tract) infections; Z98.890 Other specified postprocedural states; Z83.49 Family history of other endocrine, nutritional and metabolic diseases; Z81.8 Family history of other mental and behavioral disorders; Z82.49 Family history of ischemic heart disease and other diseases of the circulatory system
CPT/HCPCS: 96361 ×3; 96372 ×2; 96376 ×4; 96374; 96375; 99285; 36415; 80053; 83690; 85025; 85610; 85730; 81003; 81025; 93976; 76830; 74177; G0378 ×3; J2270 ×3; J2405 ×2; J1885 ×3; Q9967; J1644 ×2

== ENCOUNTER 2021-03-01 16:54 | Emergency (ER) | payer OTHER ==
[2021-03-01 17:00] VITALS: BP 115/81; PULSE 93; RESP 18; TEMP 98.2
[2021-03-01] MEDS ORDERED: HYDROmorphone 1 MG/ML 1 ML SYRINGE IVP STA (17:18)
--- NOTE | 2021-03-01 17:21 | ED ---
General Adult HPI - General Chief complaint: Urogenital Stated complaint: pelvic pain, nausea Time Seen by Provider: 03/01/21 17:04 Source: patient Mode of arrival: ambulatory Limitations: no limitations - History of Present Illness Initial comments: Dictation was produced using [employer] dictation software. please excuse any grammatical, word or spelling errors. Chief Complaint: 30 y Old female past medical history of right-sided oophorectomy and removal of right fallopian tube presents emergency department for left-sided pelvic pain History of Present Illness: 30-year-old female for the last 7 days has been having left-sided pelvic pain. Patient reports that she has history of overactive right ovary. She had her right ovary and right fallopian tube removed several years ago. She states that over left Saturday she's been having some left-sided pelvic pain. States that is nonradiating. No vaginal discharge. Patient denies . She states that she has history of her uterine lining removed and had tubal ligation on the left side. Patient has any fever. She was of nausea. No diarrhea or abdominal pain. No history of diverticulitis. The ROS documented in this emergency department record has been reviewed and confirmed by me. Those systems with pertinent positive or negative responses have been documented in the HPI. All other systems are other negative and/or noncontributory. PHYSICAL EXAM: General Impression: Alert and oriented x3, not in acute distress HEENT: Normocephalic atraumatic, extra-ocular movements intact, pupils equal and reactive to light bilaterally, mucous membranes moist. Cardiovascular: Heart regular rate and rhythm Chest: Able to complete full sentences, no retractions, no tachypnea Abdomen: abdomen soft, palpatory tenderness to the left lower quadrant, non- distended, no organomegaly Musculoskeletal: Pulses present and equal in all extremities, no peripheral edema Motor: no focal deficits noted Neurological: CN II-XII grossly intact, no focal motor or sensory deficits noted Skin: Intact with no visualized rashes Psych: Normal affect and mood Pelvic exam: Refused ED course: 30-year-old female presents to the emergency department for left- sided pelvic pain. Vital signs upon arrival are within acceptable limits. Urinalysis is unremarkable. Beta hCG is negative. Transvaginal ultrasound shows left ovarian cyst with small pelvic free fluid. No evidence of torsion. Clinical presentation consistent with symptomatic ovarian cyst. Patient reevaluated at bedside at 6:50 PM she is in stable medical condition. Patient told to follow-up with her brain wave technician. - Related Data Home Medications Medication Instructions Recorded Confirmed Sertraline HCl [Zoloft] 100 mg PO HS 12/24/18 02/15/21 Omeprazole [PriLOSEC] 40 mg PO HS 10/22/19 02/15/21 Norelgestromin/Ethin.estradiol 1 patch TD TH 02/15/21 02/15/21 [Xulane 150-35 Mcg/Day Patch] Ibuprofen [Motrin Ib] 600 mg PO Q8H PRN 03/01/21 03/01/21 Previous Rx's Medication Instructions Recorded oxyCODONE HCL/ACETAMINOPHEN 1 tab PO Q6HR PRN 3 Days #12 tab 03/01/21 [Percocet 5-325 mg] Allergies Allergy/AdvReac Type Severity Reaction Status Date / Time adhesive tape Allergy Rash/Hives Verified 03/01/21 16:59 aloe vera Allergy Rash/Hives Verified 03/01/21 16:59 azithromycin Allergy Rash/Hives Verified 03/01/21 16:59 cephalexin Allergy Rash/Hives Verified 03/01/21 16:59 metronidazole [From Flagyl] Allergy Rash/Hives Verified 03/01/21 16:59 Penicillins Allergy Rash/Hives Verified 03/01/21 16:59 sulfamethoxazole Allergy Rash/Hives Verified 03/01/21 16:59 [From Bactrim] trimethoprim [From Bactrim] Allergy Rash/Hives Verified 03/01/21 16:59 alprazolam [From Xanax] AdvReac MAKES Verified 03/01/21 16:59 PARANOID dicyclomine [From Bentyl] AdvReac constipatio Verified 03/01/21 16:59 n Review of Systems ROS Statement: Those systems with pertinent positive or pertinent negative responses have been documented in the HPI. ROS Other: All systems not noted in ROS Statement are negative. Past Medical History Past Medical History: Blood Disorder, GERD/Reflux Additional Past Medical History / Comment(s): Endometriosis, polycystic ovarian syndrome. IRON DEFICIENCY ANEMIA. Stomach Ulcer History of Any Multi-Drug Resistant Organisms: None Reported Past Surgical History: Ablation, Section, Cholecystectomy, Tubal Ligation, Uterine Ablation Additional Past Surgical History / Comment(s): Laparoscopy X2, Section X3. Right ovary and right tube removed - 2019. cyst removed from chest. AUG 2020 - ADHESION REMOVAL FROM PAST . Vaginal ablation/endometriosis Past Anesthesia/Blood Transfusion Reactions: No Reported Reaction Past Psychological History: Anxiety, Depression Smoking Status: Never smoker Past Alcohol Use History: None Reported Past Drug Use History: None Reported - Past Family History Mother Family Medical History: Hyperlipidemia Additional Family Medical History / Comment(s): Depression and anxiety. General Exam Limitations: no limitations Course Vital Signs 03/01/21 16:57 Temperature 98.2 F Pulse Rate 93 Respiratory 18 Rate Blood Pressure 115/81 O2 Sat by Pulse 98 Oximetry Medical Decision Making - Lab Data Lab Results 03/01/21 03/01/21 Range/Units 17:18 17:18 Urine Color Light Yellow Urine Appearance Cloudy H (Clear) Urine pH 7.5 (5.0-8.0) Ur Specific [place] 1.012 (1.001-1.035) Urine Protein Negative (Negative) Urine Glucose (UA) Negative (Negative) Urine Ketones Negative (Negative) Urine Blood Negative (Negative) Urine Nitrite Negative (Negative) Urine Bilirubin Negative (Negative) Urine Urobilinogen <2.0 (<2.0) mg/dL Ur Leukocyte Esterase Negative (Negative) Urine RBC <1 (0-5) /hpf Urine WBC 1 (0-5) /hpf Ur Squamous Epith Cells 1 (0-4) /hpf Urine Bacteria Many H (None) /hpf Urine HCG, Qual Not Detected (Not Detectd) Disposition Clinical Impression: Ovarian cyst Disposition: HOME SELF-CARE Condition: Fair Instructions (If sedation given, give patient instructions): Ovarian Cyst (ED) Additional Instructions: Follow-up with your brain wave technician Prescriptions: oxyCODONE HCL/ACETAMINOPHEN [Percocet 5-325 mg] 1 tab PO Q6HR PRN 3 Days #12 tab PRN Reason: Pain Is patient prescribed a controlled substance at d/c from ED?: Yes If prescribed controlled substance>3 days was MAPS reviewed?: Prescribed <3 Days Referrals: Kirt Noriega MD [Primary Care Provider] - 1-2 days
[2021-03-01] MEDS ORDERED: METOCLOPRAMIDE 5 MG/ML 2 ML VIAL IVP STA (17:22)
[2021-03-01 17:33] LABS: Appearance,Urine Cloudy (Clear); Bacteria,Urine Many /hpf; Bilirubin,Urine Negative (Negative); Blood,Urine Negative (Negative); Color,Urine Light Yellow; Glucose,Urine (UA) Negative (Negative); Ketones,Urine Negative (Negative); Leukocyte Esterase,Urine Negative (Negative); Nitrite,Urine Negative (Negative); PH, Urine 7.5 (5.0-8.0); Protein,Urine Negative (Negative); RBC,Urine <1 /hpf (0-5); Specific Gravity,Urine 1.012 (1.001-1.035); Squamous Epithelial Cell,Urine 1 /hpf (0-4); Urobilinogen,Urine <2.0 mg/dL (<2.0); WBC,Urine 1 /hpf (0-5)
--- NOTE | 2021-03-01 18:29 | US ---
EXAMINATION TYPE: US transvaginal DATE OF EXAM: 03/01/2021 COMPARISON: US, CT CLINICAL HISTORY: pelvic pain. Pelvic pain. Hx PCOS, endometriosis, C Section, tubal ligation, right ovary removed, 2 miscarriages. . TECHNIQUE: Transvaginal (TV). Date of LMP: Unknown. EXAM MEASUREMENTS: Uterus: 7.7 x 4.8 x 3.2 cm Endometrial Stripe: Limited visibility. Measured at 0.44 cm Right Ovary: Surgically absent Left Ovary: 4.2 x 2.4 x 2.9 cm 1. Uterus: Anteverted. Appears very heterogeneous, limited visibility due to shadowing. Multiple Lam bcentimeter hyperechoic foci seen in cervix may relate to benign calcification. Subcentimeter anechoi c area seen in cervix, compatible with nabothian cyst. 2. Endometrium: Measured at 0.44 cm. 3. Right Ovary: Surgically absent 4. Left Ovary: Hypoechoic cystic structure with internal echoes: 2.0 x 1.6 x 1.6 cm. Spectral, color and waveform doppler imaging shows arterial and venous flow within the left ovary. 5. Bilateral Adnexa: Appear to be wnl. 6. Posterior cul-de-sac: Fluid seen: 2.5 x 1.8 x 1.7 cm. IMPRESSION: Mildly complex left ovarian cyst. Small pelvic free fluid. No evidence of ovarian torsion. Right oophorectomy.
[2021-03-01] MEDS ORDERED: HYDROmorphone 0.5 MG/0.5 ML SYRINGE IVP STA (18:48)
== END 2021-03-01 19:20 | disposition home or self-care (01) ==
LOC: EC 16:54
DX: N83.202 Unspecified ovarian cyst, left side (principal); K21.9 Gastro-esophageal reflux disease without esophagitis; Z79.899 Other long term (current) drug therapy; Z91.09 Other allergy status, other than to drugs and biological substances; Z88.1 Allergy status to other antibiotic agents; Z88.0 Allergy status to penicillin; Z88.2 Allergy status to sulfonamides; Z91.018 Allergy to other foods; Z90.721 Acquired absence of ovaries, unilateral
CPT/HCPCS: 81001; 81025; 93976; 76830; 99284; 96374; 96376; 96375; J2765; J1170 ×2

== ENCOUNTER 2021-03-04 20:49 | Emergency (ER) | payer OTHER ==
[2021-03-04 20:59] VITALS: BP 131/84; PULSE 88; RESP 20; TEMP 98.7
[2021-03-04] MEDS ORDERED: ONDANSETRON 4 MG/2 ML VIAL IVP STA (21:33)
[2021-03-04] MEDS ORDERED: KETOROLAC 15 MG/ML 1 ML VIAL IVP STA (21:33)
[2021-03-04] MEDS ORDERED: MORPHINE SULFATE 4 MG/ML SYRINGE IV STA (21:33)
[2021-03-04] MEDS ORDERED: SODIUM CHLORIDE 0.9% 1,000 ML IV STA (21:33)
--- NOTE | 2021-03-04 21:42 | ED ---
Recheck HPI - General Chief Complaint: Abdominal Pain Stated Complaint: ABD pain,Revisit Time Seen by Provider: 03/04/21 21:09 Source: patient, RN notes reviewed, old records reviewed Mode of arrival: ambulatory Limitations: no limitations - History of Present Illness Initial Comments: This is a 30-year-old female who presents today for evaluation regards to persistent abdominal pain with recent diagnosis of ovarian cyst. Patient has recent ER visit and states she's having severe pain in between taking a pain medication. No new complaints. No nausea vomiting or diarrhea. No dysuria no fevers. He states the pain medication does help with her pain and this is a chronic issue for her she does have polycystic ovarian syndrome. MD Complaint: medication refill request, other (Worsening pain) -: days(s) Returns Today for: request for prescription, persistent/worsening pain related to initial visit Symptoms Since Prior Visit: worsening pain Context: ran out of medication Associated Symptoms: none Treatments Prior to Arrival: Given Pain Meds on - Related Data Home Medications Medication Instructions Recorded Confirmed Sertraline HCl [Zoloft] 100 mg PO HS 12/24/18 03/01/21 Omeprazole [PriLOSEC] 40 mg PO HS 10/22/19 03/01/21 Norelgestromin/Ethin.estradiol 1 patch TD WE 02/15/21 03/01/21 [Xulane 150-35 Mcg/Day Patch] Ibuprofen [Motrin Ib] 600 mg PO Q8H PRN 03/01/21 03/01/21 Previous Rx's Medication Instructions Recorded oxyCODONE HCL/ACETAMINOPHEN 1 tab PO Q6HR PRN 3 Days #12 tab 03/01/21 [Percocet 5-325 mg] Allergies Allergy/AdvReac Type Severity Reaction Status Date / Time adhesive tape Allergy Rash/Hives Verified 03/04/21 20:59 aloe vera Allergy Rash/Hives Verified 03/04/21 20:59 azithromycin Allergy Rash/Hives Verified 03/04/21 20:59 cephalexin Allergy Rash/Hives Verified 03/04/21 20:59 metronidazole [From Flagyl] Allergy Rash/Hives Verified 03/04/21 20:59 Penicillins Allergy Rash/Hives Verified 03/04/21 20:59 sulfamethoxazole Allergy Rash/Hives Verified 03/04/21 20:59 [From Bactrim] trimethoprim [From Bactrim] Allergy Rash/Hives Verified 03/04/21 20:59 alprazolam [From Xanax] AdvReac MAKES Verified 03/04/21 20:59 PARANOID dicyclomine [From Bentyl] AdvReac constipatio Verified 03/04/21 20:59 n Review of Systems ROS Statement: Those systems with pertinent positive or pertinent negative responses have been documented in the HPI. ROS Other: All systems not noted in ROS Statement are negative. Past Medical History Past Medical History: Blood Disorder, GERD/Reflux Additional Past Medical History / Comment(s): Endometriosis, polycystic ovarian syndrome. IRON DEFICIENCY ANEMIA. Stomach Ulcer History of Any Multi-Drug Resistant Organisms: None Reported Past Surgical History: Ablation, Section, Cholecystectomy, Tubal Ligation, Uterine Ablation Additional Past Surgical History / Comment(s): Laparoscopy X2, Section X3. Right ovary and right tube removed - 2019. cyst removed from chest. AUG 2020 - ADHESION REMOVAL FROM PAST . Vaginal ablation/endometriosis Past Anesthesia/Blood Transfusion Reactions: No Reported Reaction Past Psychological History: Anxiety, Depression Smoking Status: Never smoker Past Alcohol Use History: None Reported Past Drug Use History: None Reported - Past Family History Mother Family Medical History: Hyperlipidemia Additional Family Medical History / Comment(s): Depression and anxiety. General Exam Limitations: no limitations General appearance: alert, in no apparent distress Head exam: Present: atraumatic, normocephalic, normal inspection Eye exam: Present: normal appearance, PERRL, EOMI. Absent: scleral icterus, conjunctival injection, periorbital swelling ENT exam: Present: normal exam, mucous membranes moist Neck exam: Present: normal inspection. Absent: tenderness, meningismus, lymphadenopathy Respiratory exam: Present: normal lung sounds bilaterally. Absent: respiratory distress, wheezes, rales, rhonchi, stridor Cardiovascular Exam: Present: regular rate, normal rhythm, normal heart sounds. Absent: systolic murmur, diastolic murmur, rubs, gallop, clicks GI/Abdominal exam: Present: soft, tenderness (Suprapubic), normal bowel sounds. Absent: distended, guarding, rebound, rigid Extremities exam: Present: normal inspection, full ROM, normal capillary refill. Absent: tenderness, pedal edema, joint swelling, calf tenderness Back exam: Present: normal inspection Neurological exam: Present: alert, oriented X3, CN II-XII intact Psychiatric exam: Present: normal affect, normal mood Skin exam: Present: warm, dry, intact, normal color. Absent: rash Course Vital Signs 03/04/21 20:58 Temperature 98.7 F Pulse Rate 88 Respiratory 20 Rate Blood Pressure 131/84 O2 Sat by Pulse 100 Oximetry - Reevaluation(s) Reevaluation #1: 03/04/21 23:54 Medical record is reviewed Reevaluation #2: 03/04/21 23:54 Patient's pain is controlled well here in the ER Reevaluation #3: 03/04/21 23:54 Patient is informed of results and questions are answered Medical Decision Making - Medical Decision Making 30 female to the ER with persistent abdominal pain with recent diagnosis of complex ovarian cyst. Patient has normal lab values here in the ER, normal imaging. Patient can be discharged home - Lab Data Result diagrams: 03/04/21 21:39 03/04/21 21:39 Lab Results 03/04/21 03/04/21 03/04/21 Range/Units 21:39 21:39 21:39 WBC 5.5 (3.8-10.6) k/uL RBC 3.73 L (3.80-5.40) m/uL Hgb 12.0 (11.4-16.0) gm/dL Hct 34.7 (34.0-46.0) % MCV 93.1 (80.0-100.0) fL MCH 32.1 (25.0-35.0) pg MCHC 34.5 (31.0-37.0) g/dL RDW 13.4 (11.5-15.5) % Plt Count 221 (150-450) k/uL MPV 8.1 Neutrophils % 60 % Lymphocytes % 32 % Monocytes % 6 % Eosinophils % 1 % Basophils % 0 % Neutrophils # 3.3 (1.3-7.7) k/uL Lymphocytes # 1.7 (1.0-4.8) k/uL Monocytes # 0.3 (0-1.0) k/uL Eosinophils # 0.0 (0-0.7) k/uL Basophils # 0.0 (0-0.2) k/uL Sodium (137-145) mmol/L Potassium (3.5-5.1) mmol/L Chloride (98-107) mmol/L Carbon Dioxide (22-30) mmol/L Anion Gap mmol/L BUN (7-17) mg/dL Creatinine (0.52-1.04) mg/dL Est GFR (CKD-EPI)AfAm (>60 ml/min/1.73 sqM) Est GFR (CKD-EPI)NonAf (>60 ml/min/1.73 sqM) Glucose (74-99) mg/dL Calcium (8.4-10.2) mg/dL Total Bilirubin (0.2-1.3) mg/dL AST (14-36) U/L ALT (4-34) U/L Alkaline Phosphatase (38-126) U/L Total Protein (6.3-8.2) g/dL Albumin (3.5-5.0) g/dL Amylase (30-110) U/L Lipase (23-300) U/L Urine Color Yellow Urine Appearance Clear (Clear) Urine pH 5.5 (5.0-8.0) Ur Specific [place] 1.017 (1.001-1.035) Urine Protein Negative (Negative) Urine Glucose (UA) Negative (Negative) Urine Ketones Negative (Negative) Urine Blood Negative (Negative) Urine Nitrite Negative (Negative) Urine Bilirubin Negative (Negative) Urine Urobilinogen <2.0 (<2.0) mg/dL Ur Leukocyte Esterase Negative (Negative) Urine HCG, Qual Not Detected (Not Detectd) 03/04/21 Range/Units 21:39 WBC (3.8-10.6) k/uL RBC (3.80-5.40) m/uL Hgb (11.4-16.0) gm/dL Hct (34.0-46.0) % MCV (80.0-100.0) fL MCH (25.0-35.0) pg MCHC (31.0-37.0) g/dL RDW (11.5-15.5) % Plt Count (150-450) k/uL MPV Neutrophils % % Lymphocytes % % Monocytes % % Eosinophils % % Basophils % % Neutrophils # (1.3-7.7) k/uL Lymphocytes # (1.0-4.8) k/uL Monocytes # (0-1.0) k/uL Eosinophils # (0-0.7) k/uL Basophils # (0-0.2) k/uL Sodium 136 L (137-145) mmol/L Potassium 3.9 (3.5-5.1) mmol/L Chloride 103 (98-107) mmol/L Carbon Dioxide 26 (22-30) mmol/L Anion Gap 7 mmol/L BUN 11 (7-17) mg/dL Creatinine 0.73 (0.52-1.04) mg/dL Est GFR (CKD-EPI)AfAm >90 (>60 ml/min/1.73 sqM) Est GFR (CKD-EPI)NonAf >90 (>60 ml/min/1.73 sqM) Glucose 95 (74-99) mg/dL Calcium 9.8 (8.4-10.2) mg/dL Total Bilirubin 0.6 (0.2-1.3) mg/dL AST 46 H (14-36) U/L ALT 52 H (4-34) U/L Alkaline Phosphatase 130 H (38-126) U/L Total Protein 6.7 (6.3-8.2) g/dL Albumin 3.9 (3.5-5.0) g/dL Amylase 55 (30-110) U/L Lipase 34 (23-300) U/L Urine Color Urine Appearance (Clear) Urine pH (5.0-8.0) Ur Specific [place] (1.001-1.035) Urine Protein (Negative) Urine Glucose (UA) (Negative) Urine Ketones (Negative) Urine Blood (Negative) Urine Nitrite (Negative) Urine Bilirubin (Negative) Urine Urobilinogen (<2.0) mg/dL Ur Leukocyte Esterase (Negative) Urine HCG, Qual (Not Detectd) - Radiology Data Radiology results: report reviewed (CT abdomen and pelvis negative for acute disease), image reviewed Disposition Clinical Impression: Abdominal pain Disposition: HOME SELF-CARE Condition: Good Instructions (If sedation given, give patient instructions): Abdominal Pain (ED) Is patient prescribed a controlled substance at d/c from ED?: No Referrals: Kirt Noriega MD [Primary Care Provider] - 1-2 days
[2021-03-04 22:00] LABS: Appearance,Urine Clear (Clear); Bilirubin,Urine Negative (Negative); Blood,Urine Negative (Negative); Color,Urine Yellow; Glucose,Urine (UA) Negative (Negative); Ketones,Urine Negative (Negative); Leukocyte Esterase,Urine Negative (Negative); Nitrite,Urine Negative (Negative); PH, Urine 5.5 (5.0-8.0); Protein,Urine Negative (Negative); Specific Gravity,Urine 1.017 (1.001-1.035); Urobilinogen,Urine <2.0 mg/dL (<2.0)
[2021-03-04 22:03] LABS: Basophils % (A) 0 %; Eosinophils % (A) 1 %; HCT 34.7 % (34.0-46.0); Lymphocytes # (A) 1.7 k/uL (1.0-4.8); Lymphocytes % (A) 32 %; MCH 32.1 pg (25.0-35.0); MCHC 34.5 g/dL (31.0-37.0); MCV 93.1 fL (80.0-100.0); Mean Platelet Volume 8.1; Monocytes # (A) 0.3 k/uL (0-1.0); Monocytes % (A) 6 %; Neutrophils # (A) 3.3 k/uL (1.3-7.7); Neutrophils % (A) 60 %; Platelet Count 221 k/uL (150-450); RBC 3.73 m/uL (3.80-5.40); RDW 13.4 % (11.5-15.5); WBC 5.5 k/uL (3.8-10.6)
--- NOTE | 2021-03-04 22:26 | CT ---
EXAMINATION TYPE: CT abdomen pelvis w con DATE OF EXAM: 03/04/2021 COMPARISON: Abdominal pain HISTORY: LEFT ABD PAIN, H/O CYST Comparison 02/15/2021 CT DLP: 1228.4 mGycm Automated exposure control for dose reduction was used. CONTRAST: Performed with IV Contrast, patient injected with 100 mL of Isovue 300. Lung bases are clear. There is no pleural effusion. Heart size is normal. There is no pericardial eff usion. Liver spleen stomach pancreas appear intact. The bile ducts are not dilated. There are clips f rom cholecystectomy. There is no adrenal mass. Kidneys show satisfactory contrast opacification. There is no hydronephrosi s. Ureters are not dilated. Bladder distends smoothly. There is no inguinal hernia. There is no free fluid in the pelvis. Uterus is intact. There is metallic density in the cul-de-sac that could be surg ical clip. There is no mesenteric edema. There is no ascites or free air. There is no bowel obstruction. Appendi x appears normal. Lumbar vertebra have normal alignment. Posterior elements are intact. There is no compression fractur e. The bony pelvis is intact. The hip joints are intact. IMPRESSION: Negative CT scan abdomen and pelvis. There is clearing of the small amount of fluid in the pelvis com pared to recent exam. Normal appendix.
[2021-03-04 22:28] LABS: ALT 52 U/L (4-34); AST 46 U/L (14-36); African American GFR (CKD) >90 (>60 ml/min/1.73 sqM); Albumin 3.9 g/dL (3.5-5.0); Alkaline Phosphatase 130 U/L (38-126); Amylase 55 U/L (30-110); Anion Gap 7 mmol/L; Blood Urea Nitrogen 11 mg/dL (7-17); Calcium 9.8 mg/dL (8.4-10.2); Carbon Dioxide 26 mmol/L (22-30); Chloride 103 mmol/L (98-107); Glucose 95 mg/dL (74-99); Lipase 34 U/L (23-300); Non-African American GFR(CKD) >90 (>60 ml/min/1.73 sqM); Potassium 3.9 mmol/L (3.5-5.1); Sodium 136 mmol/L (137-145); Total Bilirubin 0.6 mg/dL (0.2-1.3); Total Protein 6.7 g/dL (6.3-8.2)
[2021-03-04] MEDS ORDERED: HYDROmorphone 1 MG/ML 1 ML SYRINGE IVP STA (23:02)
== END 2021-03-04 23:07 | disposition home or self-care (01) ==
LOC: EC 20:49
DX: R10.9 Unspecified abdominal pain (principal); K21.9 Gastro-esophageal reflux disease without esophagitis; Z76.0 Encounter for issue of repeat prescription; Z88.0 Allergy status to penicillin; Z88.1 Allergy status to other antibiotic agents; Z88.2 Allergy status to sulfonamides; Z90.49 Acquired absence of other specified parts of digestive tract; Z90.721 Acquired absence of ovaries, unilateral; Z88.8 Allergy status to other drugs, medicaments and biological substances; Z91.09 Other allergy status, other than to drugs and biological substances; Z79.899 Other long term (current) drug therapy
CPT/HCPCS: 36415; 80053; 82150; 83690; 85025; 81003; 81025; 74177; 99284; 96374; 96375; 96361; J2270; J2405; J1170; J1885; Q9967

== ENCOUNTER 2021-03-05 18:23 | Emergency (ER) | payer OTHER ==
[2021-03-05 18:42] VITALS: TEMP 98
[2021-03-05] MEDS ORDERED: SODIUM CHLORIDE 0.9% 500 ML 500 ML IV STA (19:13)
[2021-03-05] MEDS ORDERED: MORPHINE SULFATE 2 MG/ML SYRINGE IVP STA (19:13)
--- NOTE | 2021-03-05 19:17 | ED ---
Abdominal Pain HPI - General Chief Complaint: Abdominal Pain Stated Complaint: abd pain Source: patient, RN notes reviewed Mode of arrival: wheelchair Limitations: no limitations - History of Present Illness Initial Comments: 30-year-old white female, anal 4, presents to the emergency room tearful complaining of left lower quadrant pain. Patient states was seen here yesterday for similar pain and was told she has a complex left ovarian cyst measuring 4.2 cm. Patient states today she was doing grocery shopping and when she went to lift a grocery she felt a pop and excruciating pain. She believes that the cyst may have ruptured and is agreeable for pain control. MD Complaint: abdominal pain -: hour(s) (2) Location: LLQ Radiation: none Migration to: no migration Severity: severe Severity scale (1-10): 9 Quality: sharp Consistency: constant Improves With: nothing Worsens With: movement Context: other (Recently diagnosed 4.2 cm ovarian cyst on the left) Associated Symptoms: denies other symptoms - Related Data Home Medications Medication Instructions Recorded Confirmed Sertraline HCl [Zoloft] 100 mg PO HS 12/24/18 03/01/21 Omeprazole [PriLOSEC] 40 mg PO HS 10/22/19 03/01/21 Norelgestromin/Ethin.estradiol 1 patch TD WE 02/15/21 03/01/21 [Xulane 150-35 Mcg/Day Patch] Ibuprofen [Motrin Ib] 600 mg PO Q8H PRN 03/01/21 03/01/21 Previous Rx's Medication Instructions Recorded oxyCODONE HCL/ACETAMINOPHEN 1 tab PO Q6HR PRN 3 Days #12 tab 03/01/21 [Percocet 5-325 mg] Allergies Allergy/AdvReac Type Severity Reaction Status Date / Time adhesive tape Allergy Rash/Hives Verified 03/05/21 18:42 aloe vera Allergy Rash/Hives Verified 03/05/21 18:42 azithromycin Allergy Rash/Hives Verified 03/05/21 18:42 cephalexin Allergy Rash/Hives Verified 03/05/21 18:42 metronidazole [From Flagyl] Allergy Rash/Hives Verified 03/05/21 18:42 Penicillins Allergy Rash/Hives Verified 03/05/21 18:42 sulfamethoxazole Allergy Rash/Hives Verified 03/05/21 18:42 [From Bactrim] trimethoprim [From Bactrim] Allergy Rash/Hives Verified 03/05/21 18:42 alprazolam [From Xanax] AdvReac MAKES Verified 03/05/21 18:42 PARANOID dicyclomine [From Bentyl] AdvReac constipatio Verified 03/05/21 18:42 n Review of Systems ROS Statement: Those systems with pertinent positive or pertinent negative responses have been documented in the HPI. ROS Other: All systems not noted in ROS Statement are negative. Past Medical History Past Medical History: Blood Disorder, GERD/Reflux Additional Past Medical History / Comment(s): Endometriosis, polycystic ovarian syndrome. IRON DEFICIENCY ANEMIA. Stomach Ulcer. ovarian cyst History of Any Multi-Drug Resistant Organisms: None Reported Past Surgical History: Ablation, Section, Cholecystectomy, Tubal Ligation, Uterine Ablation Additional Past Surgical History / Comment(s): Laparoscopy X2, Section X3. Right ovary and right tube removed - 2019. cyst removed from chest. AUG 2020 - ADHESION REMOVAL FROM PAST . Vaginal ablation/endometriosis Past Anesthesia/Blood Transfusion Reactions: No Reported Reaction Past Psychological History: Anxiety, Depression Smoking Status: Never smoker Past Alcohol Use History: None Reported Past Drug Use History: None Reported - Past Family History Mother Family Medical History: Hyperlipidemia Additional Family Medical History / Comment(s): Depression and anxiety. General Exam Limitations: no limitations General appearance: alert, in no apparent distress Head exam: Present: atraumatic, normocephalic, normal inspection Eye exam: Present: normal appearance, PERRL, EOMI. Absent: scleral icterus, conjunctival injection, periorbital swelling ENT exam: Present: normal exam, normal oropharynx, mucous membranes moist Neck exam: Present: normal inspection, full ROM. Absent: tenderness, meningismus, lymphadenopathy, thyromegaly Respiratory exam: Present: normal lung sounds bilaterally. Absent: respiratory distress, wheezes, rales, rhonchi, stridor Cardiovascular Exam: Present: regular rate, normal rhythm, normal heart sounds. Absent: systolic murmur, diastolic murmur, rubs, gallop, clicks GI/Abdominal exam: Present: soft, tenderness, normal bowel sounds. Absent: distended, guarding, rebound, rigid, hernia Extremities exam: Present: normal inspection, full ROM, normal capillary refill. Absent: tenderness, pedal edema, joint swelling, calf tenderness Back exam: Present: normal inspection, full ROM. Absent: tenderness, CVA tenderness (R), CVA tenderness (L), muscle spasm, paraspinal tenderness, vertebral tenderness, rash noted Neurological exam: Present: alert, oriented X3, CN II-XII intact Expanded Patient oriented to: Present: person, place, time Speech: Present: fluid speech Eye Response: (4) open spontaneously Motor Response: (6) obeys commands Verbal Response: (5) oriented [place] Total: 15 Psychiatric exam: Present: normal affect, normal mood Skin exam: Present: warm, dry, intact, normal color. Absent: rash, cyanosis, diaphoretic, petechiae, pallor, mottled Course Vital Signs 03/05/21 18:39 Temperature 98 F Pulse Rate 76 Respiratory 18 Rate Blood Pressure 129/71 O2 Sat by Pulse 97 Oximetry Medical Decision Making - Medical Decision Making The left ovary shows two cystic lesions largest at 2 x 1.7x1.3cm, no evidence of ovarian torsion. Right ovary surgically absent. Patient had previous a ultrasound done on 03/01 and a CAT scan done on 03/04 in the emergency room for this pain. She is requesting additional pain medication before being discharge. Patient was directed to take Tylenol and/or Motrin [id number] and use heating pads to the site. Directed to return if any fevers, nausea vomiting or abnormal bleeding. She will be referred to her primary care doctor and given a referral to surgery for continuation of care. Case discussed with Dr. Carpio. - Lab Data Result diagrams: 03/05/21 19:40 03/05/21 19:40 Lab Results 03/05/21 03/05/21 03/05/21 Range/Units 19:40 19:40 19:40 WBC 5.0 (3.8-10.6) k/uL RBC 3.68 L (3.80-5.40) m/uL Hgb 12.0 (11.4-16.0) gm/dL Hct 33.7 L (34.0-46.0) % MCV 91.5 (80.0-100.0) fL MCH 32.7 (25.0-35.0) pg MCHC 35.7 (31.0-37.0) g/dL RDW 13.2 (11.5-15.5) % Plt Count 230 (150-450) k/uL MPV 7.4 Neutrophils % 61 % Lymphocytes % 31 % Monocytes % 5 % Eosinophils % 0 % Basophils % 0 % Neutrophils # 3.1 (1.3-7.7) k/uL Lymphocytes # 1.5 (1.0-4.8) k/uL Monocytes # 0.3 (0-1.0) k/uL Eosinophils # 0.0 (0-0.7) k/uL Basophils # 0.0 (0-0.2) k/uL Sodium (137-145) mmol/L Potassium (3.5-5.1) mmol/L Chloride (98-107) mmol/L Carbon Dioxide (22-30) mmol/L Anion Gap mmol/L BUN (7-17) mg/dL Creatinine (0.52-1.04) mg/dL Est GFR (CKD-EPI)AfAm (>60 ml/min/1.73 sqM) Est GFR (CKD-EPI)NonAf (>60 ml/min/1.73 sqM) Glucose (74-99) mg/dL Calcium (8.4-10.2) mg/dL Total Bilirubin (0.2-1.3) mg/dL AST (14-36) U/L ALT (4-34) U/L Alkaline Phosphatase (38-126) U/L Total Protein (6.3-8.2) g/dL Albumin (3.5-5.0) g/dL Amylase (30-110) U/L Lipase (23-300) U/L Urine Color Yellow Urine Appearance Clear (Clear) Urine pH 5.5 (5.0-8.0) Ur Specific [place] 1.028 (1.001-1.035) Urine Protein Trace H (Negative) Urine Glucose (UA) Negative (Negative) Urine Ketones Negative (Negative) Urine Blood Negative (Negative) Urine Nitrite Negative (Negative) Urine Bilirubin Negative (Negative) Urine Urobilinogen <2.0 (<2.0) mg/dL Ur Leukocyte Esterase Negative (Negative) Urine HCG, Qual Not Detected (Not Detectd) 03/05/21 Range/Units 19:40 WBC (3.8-10.6) k/uL RBC (3.80-5.40) m/uL Hgb (11.4-16.0) gm/dL Hct (34.0-46.0) % MCV (80.0-100.0) fL MCH (25.0-35.0) pg MCHC (31.0-37.0) g/dL RDW (11.5-15.5) % Plt Count (150-450) k/uL MPV Neutrophils % % Lymphocytes % % Monocytes % % Eosinophils % % Basophils % % Neutrophils # (1.3-7.7) k/uL Lymphocytes # (1.0-4.8) k/uL Monocytes # (0-1.0) k/uL Eosinophils # (0-0.7) k/uL Basophils # (0-0.2) k/uL Sodium 136 L (137-145) mmol/L Potassium 5.1 (3.5-5.1) mmol/L Chloride 109 H (98-107) mmol/L Carbon Dioxide 19 L (22-30) mmol/L Anion Gap 8 mmol/L BUN 11 (7-17) mg/dL Creatinine 0.69 (0.52-1.04) mg/dL Est GFR (CKD-EPI)AfAm >90 (>60 ml/min/1.73 sqM) Est GFR (CKD-EPI)NonAf >90 (>60 ml/min/1.73 sqM) Glucose 102 H (74-99) mg/dL Calcium 9.6 (8.4-10.2) mg/dL Total Bilirubin 0.9 (0.2-1.3) mg/dL AST 53 H (14-36) U/L ALT 45 H (4-34) U/L Alkaline Phosphatase 135 H (38-126) U/L Total Protein 7.0 (6.3-8.2) g/dL Albumin 4.0 (3.5-5.0) g/dL Amylase 60 (30-110) U/L Lipase 31 (23-300) U/L Urine Color Urine Appearance (Clear) Urine pH (5.0-8.0) Ur Specific [place] (1.001-1.035) Urine Protein (Negative) Urine Glucose (UA) (Negative) Urine Ketones (Negative) Urine Blood (Negative) Urine Nitrite (Negative) Urine Bilirubin (Negative) Urine Urobilinogen (<2.0) mg/dL Ur Leukocyte Esterase (Negative) Urine HCG, Qual (Not Detectd) Disposition Clinical Impression: Abdominal pain, Ovarian cyst Disposition: HOME SELF-CARE Condition: Fair Instructions (If sedation given, give patient instructions): Abdominal Pain (ED), Ovarian Cyst (ED) Additional Instructions: Take Tylenol and/or Motrin for pain. Return to the emergency room with any fevers, abnormal bleeding or worsening pain. Follow-up with your primary care doctor next week. Is patient prescribed a controlled substance at d/c from ED?: No Referrals: Kirt Noriega MD [Primary Care Provider] - 1-2 days Time of Disposition: 21:34
[2021-03-05] MEDS ORDERED: KETOROLAC 15 MG/ML 1 ML VIAL IVP STA (19:25)
[2021-03-05 19:57] LABS: Appearance,Urine Clear (Clear); Basophils % (A) 0 %; Bilirubin,Urine Negative (Negative); Blood,Urine Negative (Negative); Color,Urine Yellow; Eosinophils % (A) 0 %; Glucose,Urine (UA) Negative (Negative); HCT 33.7 % (34.0-46.0); Ketones,Urine Negative (Negative); Leukocyte Esterase,Urine Negative (Negative); Lymphocytes # (A) 1.5 k/uL (1.0-4.8); Lymphocytes % (A) 31 %; MCH 32.7 pg (25.0-35.0); MCHC 35.7 g/dL (31.0-37.0); MCV 91.5 fL (80.0-100.0); Mean Platelet Volume 7.4; Monocytes # (A) 0.3 k/uL (0-1.0); Monocytes % (A) 5 %; Neutrophils # (A) 3.1 k/uL (1.3-7.7); Neutrophils % (A) 61 %; Nitrite,Urine Negative (Negative); PH, Urine 5.5 (5.0-8.0); Platelet Count 230 k/uL (150-450); Protein,Urine Trace (Negative); RBC 3.68 m/uL (3.80-5.40); RDW 13.2 % (11.5-15.5); Specific Gravity,Urine 1.028 (1.001-1.035); Urobilinogen,Urine <2.0 mg/dL (<2.0)
[2021-03-05 20:08] LABS: ALT 45 U/L (4-34); AST 53 U/L (14-36); African American GFR (CKD) >90 (>60 ml/min/1.73 sqM); Alkaline Phosphatase 135 U/L (38-126); Amylase 60 U/L (30-110); Anion Gap 8 mmol/L; Blood Urea Nitrogen 11 mg/dL (7-17); Calcium 9.6 mg/dL (8.4-10.2); Carbon Dioxide 19 mmol/L (22-30); Chloride 109 mmol/L (98-107); Glucose 102 mg/dL (74-99); Lipase 31 U/L (23-300); Non-African American GFR(CKD) >90 (>60 ml/min/1.73 sqM); Sodium 136 mmol/L (137-145); Total Bilirubin 0.9 mg/dL (0.2-1.3)
[2021-03-05 20:09] LABS: Potassium 5.1 mmol/L (3.5-5.1)
--- NOTE | 2021-03-05 20:52 | US ---
EXAMINATION TYPE: US transvaginal DATE OF EXAM: 03/05/2021 COMPARISON: NONE CLINICAL HISTORY: ovarian cyst. known left ovarian cysts, pain, h/o right oophorectomy, PCOS, ablatio n, 2 c-sections TECHNIQUE: TV. Transvaginal sonographic images Date of LMP: unknown, h/o ablation EXAM MEASUREMENTS: Uterus: 7.3 x 4.4 x 3.1 cm Endometrial Stripe: 0.7 cm Right Ovary: Surgically absent Left Ovary: 3.0 x 2.3 x 2.6 cm *patient had a hard time tolerating pressure due to extreme pain, cried during exam 1. Uterus: Anteverted heterogeneous 2. Endometrium: wnl 3. Right Ovary: Surgically absent 4. Left Ovary: 2 cystic lesions seen, both complex, largest = 2.0 x 1.7 x 1.3cm Spectral, color and waveform doppler imaging shows good arterial and venous flow within the ovaries ; there is no evidence for ovarian torsion. 5. Bilateral Adnexa: wnl 6. Posterior cul-de-sac: wnl IMPRESSION: Simple cysts on the left ovary. Normal uterus. No evidence of ovarian torsion.
[2021-03-05] MEDS ORDERED: MORPHINE SULFATE 2 MG/ML SYRINGE IVP ONE (21:29)
[2021-03-05 21:50] VITALS: BP 116/67; PULSE 82; RESP 16
== END 2021-03-05 22:08 | disposition home or self-care (01) ==
LOC: EC 18:23
DX: N83.202 Unspecified ovarian cyst, left side (principal); K21.9 Gastro-esophageal reflux disease without esophagitis; Z91.09 Other allergy status, other than to drugs and biological substances; Z88.1 Allergy status to other antibiotic agents; Z88.8 Allergy status to other drugs, medicaments and biological substances; Z88.0 Allergy status to penicillin; Z88.2 Allergy status to sulfonamides; Z79.899 Other long term (current) drug therapy
CPT/HCPCS: 36415; 80053; 82150; 83690; 85025; 81003; 81025; 93976; 76830; 99284; 96374; 96375; 96361; J2270; J1885

== ENCOUNTER 2021-03-09 17:40 | Emergency (ER) | payer OTHER ==
[2021-03-09 17:44] VITALS: RESP 18; TEMP 98.2
[2021-03-09 20:50] LABS: Basophils % (A) 0 %; Eosinophils % (A) 1 %; HCT 38.4 % (34.0-46.0); HGB 12.9 gm/dL (11.4-16.0); Lymphocytes # (A) 1.7 k/uL (1.0-4.8); Lymphocytes % (A) 28 %; MCH 31.9 pg (25.0-35.0); MCHC 33.5 g/dL (31.0-37.0); MCV 95.3 fL (80.0-100.0); Mean Platelet Volume 7.5; Monocytes # (A) 0.3 k/uL (0-1.0); Monocytes % (A) 4 %; Neutrophils % (A) 65 %; Platelet Count 284 k/uL (150-450); RBC 4.03 m/uL (3.80-5.40); WBC 6.2 k/uL (3.8-10.6)
[2021-03-09] MEDS ORDERED: SODIUM CHLORIDE 0.9% 1,000 ML IV ONE (20:51)
[2021-03-09] MEDS ORDERED: MORPHINE SULFATE 4 MG/ML SYRINGE IVP STA ×2 (20:51→22:35)
[2021-03-09] MEDS ORDERED: KETOROLAC 15 MG/ML 1 ML VIAL IVP STA (20:51)
[2021-03-09] MEDS ORDERED: ONDANSETRON 4 MG/2 ML VIAL IVP STA (20:55)
[2021-03-09 21:01] LABS: ALT 23 U/L (4-34); AST 23 U/L (14-36); African American GFR (CKD) >90 (>60 ml/min/1.73 sqM); Albumin 4.2 g/dL (3.5-5.0); Alkaline Phosphatase 117 U/L (38-126); Amylase 70 U/L (30-110); Anion Gap 7 mmol/L; Blood Urea Nitrogen 10 mg/dL (7-17); Calcium 9.6 mg/dL (8.4-10.2); Carbon Dioxide 25 mmol/L (22-30); Chloride 106 mmol/L (98-107); Glucose 101 mg/dL (74-99); Lipase 70 U/L (23-300); Non-African American GFR(CKD) >90 (>60 ml/min/1.73 sqM); Potassium 3.7 mmol/L (3.5-5.1); Sodium 138 mmol/L (137-145); Total Bilirubin 0.6 mg/dL (0.2-1.3); Total Protein 7.1 g/dL (6.3-8.2)
[2021-03-09 21:09] LABS: Appearance,Urine Cloudy (Clear); Bacteria,Urine Moderate /hpf; Bilirubin,Urine Negative (Negative); Blood,Urine Negative (Negative); Color,Urine Yellow; Glucose,Urine (UA) Negative (Negative); Ketones,Urine Negative (Negative); Leukocyte Esterase,Urine Trace (Negative); Mucus,Urine Few /hpf; Nitrite,Urine Negative (Negative); Protein,Urine Trace (Negative); RBC,Urine 1 /hpf (0-5); Specific Gravity,Urine 1.022 (1.001-1.035); Squamous Epithelial Cell,Urine 2 /hpf (0-4); Urobilinogen,Urine <2.0 mg/dL (<2.0); WBC,Urine 4 /hpf (0-5)
[2021-03-09 22:03] LABS: HCG,Qualitative Serum Not Detected
[2021-03-09 22:06] VITALS: BP 146/84; PULSE 63
--- NOTE | 2021-03-09 22:09 | US ---
EXAMINATION TYPE: US renals and bladder DATE OF EXAM: 03/09/2021 COMPARISON: 02/15/2021 CLINICAL HISTORY: abd/pelvic pain. Left side pain EXAM MEASUREMENTS: Right Kidney: 9.5 x 4.6 x 5.3 cm Left Kidney: 9.9 x 4.1 x 5.6 cm Right Kidney: No hydronephrosis or masses seen Left Kidney: No hydronephrosis or masses seen Bladder: nondistended Bilateral Jets not seen IMPRESSION: No acute sonographic process.
--- NOTE | 2021-03-09 22:12 | US ---
EXAMINATION TYPE: US transvaginal DATE OF EXAM: 03/09/2021 COMPARISON: 03/01/2021 CLINICAL HISTORY: abd/pelvic pain. Generalized pain. RO removed. Hx endo ablation. Hx ovarian cysts . Patient states having diarrhea yesterday TECHNIQUE: Transvaginal (TV). Date of LMP: Unknown due to ablation EXAM MEASUREMENTS: Uterus: 7.7 x 3.9 x 3.4 cm Left Ovary: 2.6 x 2.1 x 1.7 cm 1. Uterus: Anteverted Grossly heterogenous 2. Endometrium: Not distinctly visualized due to ablation 3. Right Ovary: Surgically absent 4. Left Ovary: Follicles seen Spectral, color and waveform doppler imaging shows good arterial and venous flow within the Left ov patt; there is no evidence for ovarian torsion. 5. Bilateral Adnexa: Peristalsing bowel 6. Posterior cul-de-sac: Peristalsing fluid filled loops of bowel. Free fluid. IMPRESSION: [id number] volume of simple appearing dependent peritoneal fluid.
[2021-03-09] MEDS ORDERED: NITROFURANTOIN MONOHYD/M-CRYST 100 MG CAP PO STA (22:36)
--- NOTE | 2021-03-09 22:40 | ED ---
General Adult HPI - General Chief complaint: Abdominal Pain Stated complaint: abd pain Time Seen by Provider: 03/09/21 20:20 Source: patient, family, RN notes reviewed, old records reviewed Mode of arrival: ambulatory - History of Present Illness Initial comments: Patient was evaluated promptly when she was brought back from the waiting room. She is a 30-year-old female with past medical history remarkable for chronic abdominal pain, polycystic ovarian syndrome, endometriosis, nephrolithiasis, right oophorectomy was seen earlier this week for similar complaint of lower abdominal pain presents emergency Department with acute worsening of the pain. States it started earlier today. She states she does have a history of ovarian cyst rupture causing worsening the pain which believes is likely what happened. However she does endorse having some mild radiation of the pain up to her left lower back. She endorses dysuria, suprapubic abdominal pain. She rates it as a 7 out of 10. She scribes as sharp and achy. She endorses nausea but no vomiting. She nurses an episode of loose stool yesterday, but none today. She is still passing gas. Denies any vaginal discharge or bleeding. States is typical for her chronic pain. She recently followed up with all of her sp ecialists including GI and [facility] with no new acute interventions for her pain. She has never received evaluation by a pain specialist previously. She is not acute complaint at this time, including fevers, chills, cough. - Related Data Home Medications Medication Instructions Recorded Confirmed Sertraline HCl [Zoloft] 100 mg PO HS 12/24/18 03/01/21 Omeprazole [PriLOSEC] 40 mg PO HS 10/22/19 03/01/21 Norelgestromin/Ethin.estradiol 1 patch TD WE 02/15/21 03/01/21 [Xulane 150-35 Mcg/Day Patch] Ibuprofen [Motrin Ib] 600 mg PO Q8H PRN 03/01/21 03/01/21 Previous Rx's Medication Instructions Recorded oxyCODONE HCL/ACETAMINOPHEN 1 tab PO Q6HR PRN 3 Days #12 tab 03/01/21 [Percocet 5-325 mg] Lidocaine 5% Patch [Lidoderm 5% 1 patch TOPICAL DAILY PRN #7 patch 03/09/21 Patch] Nitrofurantoin Macrocrystal 100 mg PO Q12HR 5 Days #10 capsule 03/09/21 [Nitrofurantoin] Allergies Allergy/AdvReac Type Severity Reaction Status Date / Time adhesive tape Allergy Rash/Hives Verified 03/09/21 17:44 aloe vera Allergy Rash/Hives Verified 03/09/21 17:44 azithromycin Allergy Rash/Hives Verified 03/09/21 17:44 cephalexin Allergy Rash/Hives Verified 03/09/21 17:44 metronidazole [From Flagyl] Allergy Rash/Hives Verified 03/09/21 17:44 Penicillins Allergy Rash/Hives Verified 03/09/21 17:44 sulfamethoxazole Allergy Rash/Hives Verified 03/09/21 17:44 [From Bactrim] trimethoprim [From Bactrim] Allergy Rash/Hives Verified 03/09/21 17:44 alprazolam [From Xanax] AdvReac MAKES Verified 03/09/21 17:44 PARANOID dicyclomine [From Bentyl] AdvReac constipatio Verified 03/09/21 17:44 n Review of Systems ROS Statement: Those systems with pertinent positive or pertinent negative responses have been documented in the HPI. Review of Systems: CONST: Denies fever EYES: Denies blurry vision ENT: Denies nasal congestion C/V: Denies Chest pain RESP: Denies shortness of breath GI: Endorses abdominal pain : Endorses dysuria SKIN: Denies rash. MSK: Denies joint pain. NEURO: Denies headache ROS Other: All systems not noted in ROS Statement are negative. Past Medical History Past Medical History: Blood Disorder, GERD/Reflux Additional Past Medical History / Comment(s): Endometriosis, polycystic ovarian syndrome. IRON DEFICIENCY ANEMIA. Stomach Ulcer. ovarian cyst History of Any Multi-Drug Resistant Organisms: None Reported Past Surgical History: Ablation, Section, Cholecystectomy, Tubal Ligation, Uterine Ablation Additional Past Surgical History / Comment(s): Laparoscopy X2, Section X3. Right ovary and right tube removed - 2019. cyst removed from chest. AUG 2020 - ADHESION REMOVAL FROM PAST . Vaginal ablation/endometriosis Past Anesthesia/Blood Transfusion Reactions: No Reported Reaction Past Psychological History: Anxiety, Depression Smoking Status: Never smoker Past Alcohol Use History: None Reported Past Drug Use History: None Reported - Past Family History Mother Family Medical History: Hyperlipidemia Additional Family Medical History / Comment(s): Depression and anxiety. General Exam - General Exam Comments Initial Comments: General: Appears in no acute distress. HEAD: Normal with no signs of head trauma. EYES: PERRLA, EOMI, conjunctiva normal, no discharge. ENT: Hearing grossly intact, normal oropharynx. RESPIRATORY: Clear breath sounds bilaterally. No wheezes, rales, or rhonchi. C/V: Regular rate and rhythm. S1 and S2 auscultated, no edema, peripheral pul ses 2+ and intact throughout ABD: Abdomen is soft, nondistended. Patient is mildly tender palpation in the suprapubic region. There is no rebound tenderness. There are no signs of peritonitis. Relatively unremarkable abdominal exam. She also has some mild tenderness to percussion over the left CVA. EXT: Normal range of motion, no obvious deformity SKIN: No rashes or lesions observed on exposed skin. NEURO: Alert and oriented 4. Course Vital Signs 03/09/21 03/09/21 17:41 22:00 Temperature 98.2 F Pulse Rate 70 63 Respiratory 18 18 Rate Blood Pressure 138/80 146/84 O2 Sat by Pulse 100 96 Oximetry Medical Decision Making - Medical Decision Making Based on the patient's presentation and physical exam, I would like to obtain a pelvic as well as renal ultrasound throughout the possibility of nephrolithiasis causing hydronephrosis as well as to rule out possibility of ovarian torsion. We will obtain basic abdominal laboratory studies as well. Most of her pain does appear to be her chronic pain that she experiences. However we will reeval uate for any acute changes. She was in agreement this plan. She'll be sent directly treated with 1 L fluid bolus, IV Zofran, IV morphine. Patient's laboratory studies are relatively unremarkable. She is not . Patient's urine, and the setting of having dysuria so suprapubic abdominal dis comfort while being, can be considered a UTI as the urine is cloudy with trace leukocyte esterase and the WBCs and bacteria present. Patient's renal ultrasound revealed no signs of hydronephrosis. Patient's pelvic ultrasound shows a small amount of free fluid, which has been present in the past, d ifferential is likely cyst rupture. On reevaluation come patient's pain is improved. Her nausea is improved. We did discuss her relatively negative workup except for her UTI. We will start the patient antibiotics and I do believe it is safer to be discharged home with follow-up with her [facility] and primary care to discuss her picking. She was in agreement with this plan. Patient was given a dose of nitrofurantoin prior to discharge. I will provide the patient with a prescription for Macrobid twice a day for 5 days, lidocaine patches. I instructed the patient to follow up with their PCP in the next 3 days. . I explained that the patient should return to the emergency department if they experience any worsening symptoms. Strict return precautions were discussed with the patient. The patient expressed understanding of these instructions. I answered all questions that the patient had. The patient was discharged home in fair condition with their prescriptions and follow up information. - Lab Data Result diagrams: 03/09/21 20:32 03/09/21 20:32 Lab Results 03/09/21 03/09/21 03/09/21 Range/Units 20:32 20:32 20:32 WBC 6.2 (3.8-10.6) k/uL RBC 4.03 (3.80-5.40) m/uL Hgb 12.9 (11.4-16.0) gm/dL Hct 38.4 (34.0-46.0) % MCV 95.3 (80.0-100.0) fL MCH 31.9 (25.0-35.0) pg MCHC 33.5 (31.0-37.0) g/dL RDW 14.0 (11.5-15.5) % Plt Count 284 (150-450) k/uL MPV 7.5 Neutrophils % 65 % Lymphocytes % 28 % Monocytes % 4 % Eosinophils % 1 % Basophils % 0 % Neutrophils # 4.0 (1.3-7.7) k/uL Lymphocytes # 1.7 (1.0-4.8) k/uL Monocytes # 0.3 (0-1.0) k/uL Eosinophils # 0.0 (0-0.7) k/uL Basophils # 0.0 (0-0.2) k/uL Sodium 138 (137-145) mmol/L Potassium 3.7 (3.5-5.1) mmol/L Chloride 106 (98-107) mmol/L Carbon Dioxide 25 (22-30) mmol/L Anion Gap 7 mmol/L BUN 10 (7-17) mg/dL Creatinine 0.64 (0.52-1.04) mg/dL Est GFR (CKD-EPI)AfAm >90 (>60 ml/min/1.73 sqM) Est GFR (CKD-EPI)NonAf >90 (>60 ml/min/1.73 sqM) Glucose 101 H (74-99) mg/dL Calcium 9.6 (8.4-10.2) mg/dL Total Bilirubin 0.6 (0.2-1.3) mg/dL AST 23 (14-36) U/L ALT 23 (4-34) U/L Alkaline Phosphatase 117 (38-126) U/L Total Protein 7.1 (6.3-8.2) g/dL Albumin 4.2 (3.5-5.0) g/dL Amylase 70 (30-110) U/L Lipase 70 (23-300) U/L HCG, Qual Not Detected Urine Color Yellow Urine Appearance Cloudy H (Clear) Urine pH 6.0 (5.0-8.0) Ur Specific [place] 1.022 (1.001-1.035) Urine Protein Trace H (Negative) Urine Glucose (UA) Negative (Negative) Urine Ketones Negative (Negative) Urine Blood Negative (Negative) Urine Nitrite Negative (Negative) Urine Bilirubin Negative (Negative) Urine Urobilinogen <2.0 (<2.0) mg/dL Ur Leukocyte Esterase Trace H (Negative) Urine RBC 1 (0-5) /hpf Urine WBC 4 (0-5) /hpf Ur Squamous Epith Cells 2 (0-4) /hpf Urine Bacteria Moderate H (None) /hpf Urine Mucus Few H (None) /hpf Disposition Clinical Impression: Chronic abdominal pain, History of PCOS, History of endometriosis, Abdominal pain of unknown cause, UTI (urinary tract infection) Disposition: HOME SELF-CARE Condition: Fair Instructions (If sedation given, give patient instructions): Urinary Tract Infection in Women (ED), Abdominal Pain (ED) Prescriptions: Lidocaine 5% Patch [Lidoderm 5% Patch] 1 patch TOPICAL DAILY PRN #7 patch PRN Reason: Pain Nitrofurantoin Macrocrystal [Nitrofurantoin] 100 mg PO Q12HR 5 Days #10 capsule Is patient prescribed a controlled substance at d/c from ED?: No Referrals: Kirt Noriega MD [Primary Care Provider] - 1-2 days
== END 2021-03-09 23:18 | disposition home or self-care (01) ==
LOC: EC 17:40
DX: N39.0 Urinary tract infection, site not specified (principal); G89.29 Other chronic pain; R10.2 Pelvic and perineal pain; M54.5 Low back pain; R11.0 Nausea; R19.7 Diarrhea, unspecified; K21.9 Gastro-esophageal reflux disease without esophagitis; Z87.42 Personal history of other diseases of the female genital tract; Z90.49 Acquired absence of other specified parts of digestive tract; Z90.721 Acquired absence of ovaries, unilateral; Z87.442 Personal history of urinary calculi; Z88.0 Allergy status to penicillin; Z88.1 Allergy status to other antibiotic agents; Z88.2 Allergy status to sulfonamides; Z91.09 Other allergy status, other than to drugs and biological substances; Z88.8 Allergy status to other drugs, medicaments and biological substances; Z91.048 Other nonmedicinal substance allergy status; Z79.899 Other long term (current) drug therapy
CPT/HCPCS: 36415; 80053; 82150; 83690; 85025; 81001; 84703; 93976; 76830; 76770; 99284; 96374; 96375; 96376; 96361; J2270; J2405; J1885

== ENCOUNTER 2021-03-15 17:28 | Emergency (ER) | payer OTHER ==
[2021-03-15 18:26] VITALS: PULSE 87; TEMP 98.1
[2021-03-15] MEDS ORDERED: ONDANSETRON 4 MG TAB PO STA (18:53)
[2021-03-15] MEDS ORDERED: KETOROLAC 15 MG/ML 1 ML VIAL IM STA (18:53)
[2021-03-15 19:24] LABS: Appearance,Urine Cloudy (Clear); Bacteria,Urine Rare /hpf; Bilirubin,Urine Negative (Negative); Blood,Urine Negative (Negative); Color,Urine Yellow; Glucose,Urine (UA) Negative (Negative); Ketones,Urine Negative (Negative); Leukocyte Esterase,Urine Negative (Negative); Mucus,Urine Rare /hpf; Nitrite,Urine Negative (Negative); PH, Urine 6.5 (5.0-8.0); Protein,Urine Negative (Negative); RBC,Urine <1 /hpf (0-5); Specific Gravity,Urine 1.014 (1.001-1.035); Squamous Epithelial Cell,Urine 5 /hpf (0-4); Urobilinogen,Urine <2.0 mg/dL (<2.0); WBC,Urine 1 /hpf (0-5)
--- NOTE | 2021-03-15 19:39 | ED ---
General Adult HPI - General Chief complaint: Abdominal Pain Stated complaint: lower abd pain Time Seen by Provider: 03/15/21 18:44 Source: patient, RN notes reviewed Mode of arrival: ambulatory Limitations: no limitations - History of Present Illness Initial comments: Patient is a 30-year-old female that presents to emergency department complaining of urinary tract infection symptoms such as pain discomfort and frequency. She was seen approximately 6 days ago in this emergency Department for the same complaint and given antibiotics. Patient still complaining of pain. She denied follow-up with primary care as instructed. She was not any other apparent discomfort or pain. She denied any chest pain shortness breath headache nausea vomiting diarrhea constipation fever fatigue chills. - Related Data Home Medications Medication Instructions Recorded Confirmed Sertraline HCl [Zoloft] 100 mg PO HS 12/24/18 03/15/21 Omeprazole [PriLOSEC] 40 mg PO HS 10/22/19 03/15/21 Ibuprofen [Motrin Ib] 600 mg PO Q8H PRN 03/01/21 03/15/21 Norelgestromin/Ethin.estradiol 1 patch TRANSDERM WE 03/15/21 03/15/21 [Zafemy 150-35 Mcg/Day Patch] Oxybutynin Chloride [Oxybutynin 10 mg PO DAILY 03/15/21 03/15/21 Chloride ER] Previous Rx's Medication Instructions Recorded oxyCODONE HCL/ACETAMINOPHEN 1 tab PO Q6HR PRN 3 Days #12 tab 03/01/21 [Percocet 5-325 mg] Lidocaine 5% Patch [Lidoderm 5% 1 patch TOPICAL DAILY PRN #7 patch 03/09/21 Patch] Nitrofurantoin Monohyd/M-Cryst 100 mg PO Q12HR #14 cap 03/15/21 [Macrobid] Allergies Allergy/AdvReac Type Severity Reaction Status Date / Time adhesive tape Allergy Rash/Hives Verified 03/15/21 18:26 aloe vera Allergy Rash/Hives Verified 03/15/21 18:26 azithromycin Allergy Rash/Hives Verified 03/15/21 18:26 cephalexin Allergy Rash/Hives Verified 03/15/21 18:26 metronidazole [From Flagyl] Allergy Rash/Hives Verified 03/15/21 18:26 Penicillins Allergy Rash/Hives Verified 03/15/21 18:26 sulfamethoxazole Allergy Rash/Hives Verified 03/15/21 18:26 [From Bactrim] trimethoprim [From Bactrim] Allergy Rash/Hives Verified 03/15/21 18:26 alprazolam [From Xanax] AdvReac MAKES Verified 03/15/21 18:26 PARANOID dicyclomine [From Bentyl] AdvReac constipatio Verified 03/15/21 18:26 n Review of Systems ROS Statement: Those systems with pertinent positive or pertinent negative responses have been documented in the HPI. ROS Other: All systems not noted in ROS Statement are negative. Past Medical History Past Medical History: Blood Disorder, GERD/Reflux Additional Past Medical History / Comment(s): Endometriosis, polycystic ovarian syndrome. IRON DEFICIENCY ANEMIA. Stomach Ulcer. ovarian cyst History of Any Multi-Drug Resistant Organisms: None Reported Past Surgical History: Ablation, Section, Cholecystectomy, Tubal Ligation, Uterine Ablation Additional Past Surgical History / Comment(s): Laparoscopy X2, Section X3. Right ovary and right tube removed - 2019. cyst removed from chest. AUG 2020 - ADHESION REMOVAL FROM PAST . Vaginal ablation/endometriosis Past Anesthesia/Blood Transfusion Reactions: No Reported Reaction Past Psychological History: Anxiety, Depression Smoking Status: Never smoker Past Alcohol Use History: None Reported Past Drug Use History: None Reported - Past Family History Mother Family Medical History: Hyperlipidemia Additional Family Medical History / Comment(s): Depression and anxiety. General Exam Limitations: no limitations General appearance: alert, in no apparent distress Head exam: Present: atraumatic, normocephalic, normal inspection Eye exam: Present: normal appearance, PERRL, EOMI. Absent: scleral icterus, conjunctival injection, periorbital swelling Neck exam: Present: normal inspection Respiratory exam: Present: normal lung sounds bilaterally. Absent: respiratory distress, wheezes, rales, rhonchi, stridor Cardiovascular Exam: Present: regular rate, normal rhythm, normal heart sounds. Absent: systolic murmur, diastolic murmur, rubs, gallop, clicks GI/Abdominal exam: Present: soft, tenderness (Very minimal in the suprapubic region), normal bowel sounds. Absent: distended, guarding, rebound, rigid Extremities exam: Present: normal inspection, full ROM, normal capillary refill. Absent: tenderness, pedal edema, joint swelling, calf tenderness Neurological exam: Present: alert, oriented X3 Psychiatric exam: Present: normal affect, normal mood Skin exam: Present: warm, dry, intact, normal color. Absent: rash Course Vital Signs 03/15/21 18:23 Temperature 98.1 F Pulse Rate 87 Respiratory 18 Rate Blood Pressure 135/90 O2 Sat by Pulse 100 Oximetry Medical Decision Making - Medical Decision Making 30-year-old female complaining of urinary tract infection symptoms with some nausea. Urinalysis, 15 mg of Toradol, 4 mg of Zofran ordered. Urinalysis negative for any UTI, etc. he is cleared up since previous visit. Patient informed that she must follow up with her primary care and [facility]. Case discussed with Dr. Sanchez, patient can discharge home. - Lab Data Lab Results 03/15/21 Range/Units 19:10 Urine Color Yellow Urine Appearance Cloudy H (Clear) Urine pH 6.5 (5.0-8.0) Ur Specific [place] 1.014 (1.001-1.035) Urine Protein Negative (Negative) Urine Glucose (UA) Negative (Negative) Urine Ketones Negative (Negative) Urine Blood Negative (Negative) Urine Nitrite Negative (Negative) Urine Bilirubin Negative (Negative) Urine Urobilinogen <2.0 (<2.0) mg/dL Ur Leukocyte Esterase Negative (Negative) Urine RBC <1 (0-5) /hpf Urine WBC 1 (0-5) /hpf Ur Squamous Epith Cells 5 H (0-4) /hpf Urine Bacteria Rare H (None) /hpf Urine Mucus Rare H (None) /hpf Disposition Clinical Impression: Abdominal pain, History of endometriosis, History of PCOS, UTI (urinary tract infection), Chronic abdominal pain Disposition: HOME SELF-CARE Condition: Stable Instructions (If sedation given, give patient instructions): Abdominal Pain (ED) Additional Instructions: Please return to the Emergency Department if symptoms worsen or any other concerns. follow-up with primary care and [facility] in the next 1-2 days. Take antibiotics as prescribed. Is patient prescribed a controlled substance at d/c from ED?: No Referrals: Kirt Noriega MD [Primary Care Provider] - 1-2 days Time of Disposition: 19:39
[2021-03-15 20:02] VITALS: BP 127/84; RESP 20
== END 2021-03-15 20:03 | disposition home or self-care (01) ==
LOC: EC 17:28
DX: N39.0 Urinary tract infection, site not specified (principal); K21.9 Gastro-esophageal reflux disease without esophagitis; G89.29 Other chronic pain; Z87.42 Personal history of other diseases of the female genital tract; Z79.899 Other long term (current) drug therapy; Z91.09 Other allergy status, other than to drugs and biological substances; Z88.1 Allergy status to other antibiotic agents; Z88.0 Allergy status to penicillin; Z88.2 Allergy status to sulfonamides; Z88.8 Allergy status to other drugs, medicaments and biological substances; Z90.49 Acquired absence of other specified parts of digestive tract
CPT/HCPCS: 81001; 96372; 99284; J1885

== ENCOUNTER 2021-03-21 16:54 | Emergency (ER) | payer OTHER ==
[2021-03-21 16:52] LABS: Basophils % (A) 0 %; Eosinophils # (A) 0.1 k/uL (0-0.7); Eosinophils % (A) 1 %; HCT 38.6 % (34.0-46.0); HGB 12.9 gm/dL (11.4-16.0); Lymphocytes # (A) 1.5 k/uL (1.0-4.8); Lymphocytes % (A) 28 %; MCH 32.4 pg (25.0-35.0); MCHC 33.5 g/dL (31.0-37.0); MCV 96.9 fL (80.0-100.0); Mean Platelet Volume 7.9; Monocytes # (A) 0.3 k/uL (0-1.0); Monocytes % (A) 5 %; Neutrophils # (A) 3.4 k/uL (1.3-7.7); Neutrophils % (A) 64 %; Platelet Count 232 k/uL (150-450); RBC 3.99 m/uL (3.80-5.40); RDW 13.8 % (11.5-15.5); WBC 5.3 k/uL (3.8-10.6)
[2021-03-21 17:02] LABS: ALT 23 U/L (4-34); AST 48 U/L (14-36); African American GFR (CKD) >90 (>60 ml/min/1.73 sqM); Albumin 4.4 g/dL (3.5-5.0); Alkaline Phosphatase 90 U/L (38-126); Amylase 62 U/L (30-110); Anion Gap 8 mmol/L; Blood Urea Nitrogen 8 mg/dL (7-17); Calcium 9.7 mg/dL (8.4-10.2); Carbon Dioxide 24 mmol/L (22-30); Chloride 104 mmol/L (98-107); Glucose 94 mg/dL (74-99); Lipase 19 U/L (23-300); Non-African American GFR(CKD) >90 (>60 ml/min/1.73 sqM); Sodium 136 mmol/L (137-145); Total Bilirubin 1.1 mg/dL (0.2-1.3); Total Protein 7.5 g/dL (6.3-8.2)
[2021-03-21 17:04] LABS: Potassium 5.5 mmol/L (3.5-5.1)
[2021-03-21 17:29] VITALS: BP 117/79; PULSE 89; RESP 16; TEMP 98
--- NOTE | 2021-03-21 17:40 | CT ---
EXAMINATION TYPE: CT abdomen pelvis w con DATE OF EXAM: 03/21/2021 COMPARISON: 03/04/2021 HISTORY: RLQ pain CT DLP: 1162.7 mGycm Automated exposure control for dose reduction was used. CONTRAST: Performed with IV Contrast, patient injected with 100 mL of Isovue 300. Lung bases are clear. There is no pleural effusion. Heart size is normal. Liver spleen stomach pancre as appear normal. There are clips from cholecystectomy. Bile ducts are nondilated. There is no adrenal mass. Kidneys show satisfactory contrast opacification. There is no hydronephrosi s. Ureters are not dilated. There is no retroperitoneal adenopathy. Bladder distends smoothly. Uterus is anteverted. There is no inguinal hernia. There is tiny amount of free fluid in the cul-de-sac. Th ere is no pelvic mass. Small bowel pattern is normal. There is oral contrast extending to the distal ileum. There is no sign of thickened appendix. There is no mesenteric edema. There is no ascites or free air. There is no bowel obstruction. Appendi x is posterior and medial and appears normal. The lumbar vertebra have normal alignment. Disc spaces are normal. Posterior elements are intact. Bon y pelvis is intact. Hip joints appear normal. IMPRESSION: There is tiny amount of free fluid in the cul-de-sac that could be physiologic. Fluid appears new com pared to old exam. Normal appendix.
[2021-03-21] MEDS ORDERED: ONDANSETRON 4 MG/2 ML VIAL IVP STA (17:46)
[2021-03-21] MEDS ORDERED: KETOROLAC 15 MG/ML 1 ML VIAL IVP STA (17:46)
--- NOTE | 2021-03-21 17:46 | ED ---
General Adult HPI - General Chief complaint: Recheck/Abnormal Lab/Rx Stated complaint: lower abd pain Time Seen by Provider: 03/21/21 17:35 Source: patient, RN notes reviewed, old records reviewed Mode of arrival: ambulatory Limitations: no limitations - History of Present Illness Initial comments: 30-year-old white female, alert and oriented 4, well-appearing, presents to the emergency room with complaints of right lower quadrant pain. She states that she was sent here from outpatient CAT scan for an elevated blood pressure. In triage her blood pressure is 117/79. Patient states the CAT scan and the blood work was completed before coming to the emergency room today. She has been seen in the emergency room multiple times for the same pain and she has not had a diagnosis yet. She states that in the past they told her it could be irritable bowel syndrome, it could be endometriosis that could be polycystic ovary disease. She denies any fevers. She states that she's had no sick contacts. She denies any smoking, daily alcohol use or illicit drugs. -: week(s) (3) Location: abdomen (rlq) Severity scale (1-10): 8 Quality: sharp - Related Data Home Medications Medication Instructions Recorded Confirmed Sertraline HCl [Zoloft] 100 mg PO HS 12/24/18 03/15/21 Omeprazole [PriLOSEC] 40 mg PO HS 10/22/19 03/15/21 Ibuprofen [Motrin Ib] 600 mg PO Q8H PRN 03/01/21 03/15/21 Norelgestromin/Ethin.estradiol 1 patch TRANSDERM WE 03/15/21 03/15/21 [Zafemy 150-35 Mcg/Day Patch] Oxybutynin Chloride [Oxybutynin 10 mg PO DAILY 03/15/21 03/15/21 Chloride ER] Previous Rx's Medication Instructions Recorded oxyCODONE HCL/ACETAMINOPHEN 1 tab PO Q6HR PRN 3 Days #12 tab 03/01/21 [Percocet 5-325 mg] Lidocaine 5% Patch [Lidoderm 5% 1 patch TOPICAL DAILY PRN #7 patch 03/09/21 Patch] Nitrofurantoin Monohyd/M-Cryst 100 mg PO Q12HR #14 cap 03/15/21 [Macrobid] Allergies Allergy/AdvReac Type Severity Reaction Status Date / Time adhesive tape Allergy Rash/Hives Verified 03/15/21 18:26 aloe vera Allergy Rash/Hives Verified 03/15/21 18:26 azithromycin Allergy Rash/Hives Verified 03/15/21 18:26 cephalexin Allergy Rash/Hives Verified 03/15/21 18:26 metronidazole [From Flagyl] Allergy Rash/Hives Verified 03/15/21 18:26 Penicillins Allergy Rash/Hives Verified 03/15/21 18:26 sulfamethoxazole Allergy Rash/Hives Verified 03/15/21 18:26 [From Bactrim] trimethoprim [From Bactrim] Allergy Rash/Hives Verified 03/15/21 18:26 alprazolam [From Xanax] AdvReac MAKES Verified 03/15/21 18:26 PARANOID dicyclomine [From Bentyl] AdvReac constipatio Verified 03/15/21 18:26 n Review of Systems ROS Statement: Those systems with pertinent positive or pertinent negative responses have been documented in the HPI. ROS Other: All systems not noted in ROS Statement are negative. Past Medical History Past Medical History: Blood Disorder, GERD/Reflux Additional Past Medical History / Comment(s): Endometriosis, polycystic ovarian syndrome. IRON DEFICIENCY ANEMIA. Stomach Ulcer. ovarian cyst History of Any Multi-Drug Resistant Organisms: None Reported Past Surgical History: Ablation, Section, Cholecystectomy, Tubal Ligation, Uterine Ablation Additional Past Surgical History / Comment(s): Laparoscopy X2, Section X3. Right ovary and right tube removed - 2019. cyst removed from chest. AUG 2020 - ADHESION REMOVAL FROM PAST . Vaginal ablation/endometriosis Past Anesthesia/Blood Transfusion Reactions: No Reported Reaction Past Psychological History: Anxiety, Depression Smoking Status: Never smoker Past Alcohol Use History: None Reported Past Drug Use History: None Reported - Past Family History Mother Family Medical History: Hyperlipidemia Additional Family Medical History / Comment(s): Depression and anxiety. General Exam Limitations: no limitations General appearance: alert, in no apparent distress Head exam: Present: atraumatic, normocephalic, normal inspection Eye exam: Present: normal appearance, PERRL, EOMI. Absent: scleral icterus, conjunctival injection, periorbital swelling ENT exam: Present: normal exam, mucous membranes moist Neck exam: Present: normal inspection, full ROM. Absent: tenderness, meningismus, lymphadenopathy Respiratory exam: Present: normal lung sounds bilaterally. Absent: respiratory distress, wheezes, rales, rhonchi, stridor, accessory muscle use, decreased breath sounds Cardiovascular Exam: Present: regular rate, normal rhythm, normal heart sounds. Absent: systolic murmur, diastolic murmur, rubs, gallop, clicks GI/Abdominal exam: Present: soft, normal bowel sounds. Absent: distended, tenderness, guarding, rebound, rigid Extremities exam: Present: normal inspection, full ROM, normal capillary refill. Absent: tenderness, pedal edema, joint swelling, calf tenderness Back exam: Present: normal inspection, full ROM. Absent: tenderness, CVA tenderness (R), CVA tenderness (L), muscle spasm, paraspinal tenderness, vertebral tenderness, rash noted Expanded Back exam: Absent: saddle anesthesia Back exam: Negative Straight Leg Raising: Left, Right Neurological exam: Present: alert, oriented X3, CN II-XII intact Psychiatric exam: Present: normal affect, normal mood Skin exam: Present: warm, dry, intact, normal color. Absent: rash, cyanosis, diaphoretic, petechiae, pallor Course Vital Signs 03/21/21 17:25 Temperature 98.0 F Pulse Rate 89 Respiratory 16 Rate Blood Pressure 117/79 O2 Sat by Pulse 100 Oximetry Medical Decision Making - Medical Decision Making The patient was sent from outpatient CAT scan for elevated blood pressure. On arrival to the emergency room her blood pressure is 117/79. She has been afebrile. Patient was sent for an outpatient CT the abdomen to rule out appendicitis. CT today shows a tiny amount of free fluid in cul-de-sac that could be physiologic. Normal appendix. Her white blood cell count is 5.3 and there is no evidence of anemia. Lactic acid is 1.0. Potassium is elevated due to hemolysis, patient has no evidence of renal dysfunction. Patient has been seen in the emergency room 6 times this month for similar pain. She had a CAT scan on March 04 and again today in addition to an ultrasound on March 01, March 05, and March 09. There is no definitive cause for why the patient continues to have right lower quadrant pain. She was offered Toradol and she states that that does not help with her pain. She also states NSAIDs do not work for her pain she also states Tylenol doesn't help she is requesting [place] which she takes at home. Patient was given a norco. Her to follow up with her primary care doctor. Case discussed with Dr. Maciel - Lab Data Result diagrams: 03/21/21 16:25 03/21/21 16:25 Lab Results 03/21/21 03/21/21 03/21/21 Range/Units 16:25 16:25 16:40 WBC 5.3 (3.8-10.6) k/uL RBC 3.99 (3.80-5.40) m/uL Hgb 12.9 (11.4-16.0) gm/dL Hct 38.6 (34.0-46.0) % MCV 96.9 (80.0-100.0) fL MCH 32.4 (25.0-35.0) pg MCHC 33.5 (31.0-37.0) g/dL RDW 13.8 (11.5-15.5) % Plt Count 232 (150-450) k/uL MPV 7.9 Neutrophils % 64 % Lymphocytes % 28 % Monocytes % 5 % Eosinophils % 1 % Basophils % 0 % Neutrophils # 3.4 (1.3-7.7) k/uL Lymphocytes # 1.5 (1.0-4.8) k/uL Monocytes # 0.3 (0-1.0) k/uL Eosinophils # 0.1 (0-0.7) k/uL Basophils # 0.0 (0-0.2) k/uL Sodium 136 L (137-145) mmol/L Potassium 5.5 H (3.5-5.1) mmol/L Chloride 104 (98-107) mmol/L Carbon Dioxide 24 (22-30) mmol/L Anion Gap 8 mmol/L BUN 8 (7-17) mg/dL Creatinine 0.67 (0.52-1.04) mg/dL Est GFR (CKD-EPI)AfAm >90 (>60 ml/min/1.73 sqM) Est GFR (CKD-EPI)NonAf >90 (>60 ml/min/1.73 sqM) Glucose 94 (74-99) mg/dL Plasma Lactic Acid [place] 1.0 (0.7-2.0) mmol/L Calcium 9.7 (8.4-10.2) mg/dL Total Bilirubin 1.1 (0.2-1.3) mg/dL AST 48 H (14-36) U/L ALT 23 (4-34) U/L Alkaline Phosphatase 90 (38-126) U/L Total Protein 7.5 (6.3-8.2) g/dL Albumin 4.4 (3.5-5.0) g/dL Amylase 62 (30-110) U/L Lipase 19 L (23-300) U/L Disposition Clinical Impression: Abdominal pain of unknown etiology Disposition: HOME SELF-CARE Condition: Good Instructions (If sedation given, give patient instructions): Abdominal Pain (ED) Additional Instructions: Follow-up with the primary care doctor. Continue home medications as previously prescribed. Return if any new or worsening symptoms. Is patient prescribed a controlled substance at d/c from ED?: No Referrals: Kirt Noriega MD [Primary Care Provider] - 1-2 days Time of Disposition: 17:56
[2021-03-21] MEDS ORDERED: HYDROcodone/APAP 5-325MG 1 EACH TAB PO STA (18:23)
== END 2021-03-21 18:36 | disposition home or self-care (01) ==
LOC: EC 16:54
DX: R10.31 Right lower quadrant pain (principal); K21.9 Gastro-esophageal reflux disease without esophagitis; Z87.11 Personal history of peptic ulcer disease; Z90.49 Acquired absence of other specified parts of digestive tract; Z88.0 Allergy status to penicillin; Z88.1 Allergy status to other antibiotic agents; Z88.2 Allergy status to sulfonamides; Z91.09 Other allergy status, other than to drugs and biological substances; Z91.048 Other nonmedicinal substance allergy status; Z79.899 Other long term (current) drug therapy
CPT/HCPCS: 80053; 82150; 83605; 83690; 85025; 74177; 36415; 99284; 96374; 96375; J2405; J1885; Q9967

== ENCOUNTER 2021-04-20 18:12 | Emergency (ER) | payer OTHER ==
[2021-04-20 18:20] VITALS: RESP 16; TEMP 99
[2021-04-20] MEDS ORDERED: MORPHINE SULFATE 2 MG/ML SYRINGE IVP STA (20:02)
[2021-04-20] MEDS ORDERED: SODIUM CHLORIDE 0.9% 500 ML 500 ML IV STA (20:02)
[2021-04-20] MEDS ORDERED: KETOROLAC 15 MG/ML 1 ML VIAL IVP STA (20:02)
[2021-04-20] MEDS ORDERED: ONDANSETRON 4 MG/2 ML VIAL IVP STA (20:02)
--- NOTE | 2021-04-20 20:11 | ED ---
General Adult HPI - General Chief complaint: Abdominal Pain Stated complaint: Abdominal Pain Time Seen by Provider: 04/20/21 19:51 Source: patient, RN notes reviewed Mode of arrival: ambulatory Limitations: no limitations - History of Present Illness Initial comments: This is a 30-year-old female who presents to the emergency department with complaints of left lower quadrant abdominal pain, onset noon today. Patient describes her pain as a burning and stabbing discomfort does not radiate. Patient states pain is not aggravated or alleviated by any factors. It is also accompanied by persistent nausea, denies vomiting or diarrhea. States she has had a decrease in appetite today but has been able to drink a little bit of water. Reports a history of PCOS, ovarian cysts, and endometriosis. States this pain is different from normal cyst rupture; also states hormone patch that she had been using to regulate her cycles was recently switched and has not been adhering as well. Patient denies headache, shortness of breath, urinary symptoms, back pain, and vaginal discharge or bleeding. - Related Data Home Medications Medication Instructions Recorded Confirmed Sertraline HCl [Zoloft] 100 mg PO HS 12/24/18 03/15/21 Omeprazole [PriLOSEC] 40 mg PO HS 10/22/19 03/15/21 Ibuprofen [Motrin Ib] 600 mg PO Q8H PRN 03/01/21 03/15/21 Norelgestromin/Ethin.estradiol 1 patch TRANSDERM WE 03/15/21 03/15/21 [Zafemy 150-35 Mcg/Day Patch] Oxybutynin Chloride [Oxybutynin 10 mg PO DAILY 03/15/21 03/15/21 Chloride ER] Previous Rx's Medication Instructions Recorded oxyCODONE HCL/ACETAMINOPHEN 1 tab PO Q6HR PRN 3 Days #12 tab 03/01/21 [Percocet 5-325 mg] Lidocaine 5% Patch [Lidoderm 5% 1 patch TOPICAL DAILY PRN #7 patch 03/09/21 Patch] Nitrofurantoin Monohyd/M-Cryst 100 mg PO Q12HR #14 cap 03/15/21 [Macrobid] Allergies Allergy/AdvReac Type Severity Reaction Status Date / Time adhesive tape Allergy Rash/Hives Verified 04/20/21 18:18 aloe vera Allergy Rash/Hives Verified 04/20/21 18:18 azithromycin Allergy Rash/Hives Verified 04/20/21 18:18 cephalexin Allergy Rash/Hives Verified 04/20/21 18:18 metronidazole [From Flagyl] Allergy Rash/Hives Verified 04/20/21 18:18 Penicillins Allergy Rash/Hives Verified 04/20/21 18:18 sulfamethoxazole Allergy Rash/Hives Verified 04/20/21 18:18 [From Bactrim] trimethoprim [From Bactrim] Allergy Rash/Hives Verified 04/20/21 18:18 alprazolam [From Xanax] AdvReac MAKES Verified 04/20/21 18:18 PARANOID dicyclomine [From Bentyl] AdvReac constipatio Verified 04/20/21 18:18 n Review of Systems ROS Statement: Those systems with pertinent positive or pertinent negative responses have been documented in the HPI. ROS Other: All systems not noted in ROS Statement are negative. Past Medical History Past Medical History: Blood Disorder, GERD/Reflux Additional Past Medical History / Comment(s): Endometriosis, polycystic ovarian syndrome. IRON DEFICIENCY ANEMIA. Stomach Ulcer. ovarian cyst History of Any Multi-Drug Resistant Organisms: None Reported Past Surgical History: Ablation, Section, Cholecystectomy, Tubal Ligation, Uterine Ablation Additional Past Surgical History / Comment(s): Laparoscopy X2, Section X3. Right ovary and right tube removed - 2019. cyst removed from chest. AUG 2020 - ADHESION REMOVAL FROM PAST . Vaginal ablation/endometriosis Past Anesthesia/Blood Transfusion Reactions: No Reported Reaction Past Psychological History: Anxiety, Depression Smoking Status: Never smoker Past Alcohol Use History: None Reported Past Drug Use History: None Reported - Past Family History Mother Family Medical History: Hyperlipidemia Additional Family Medical History / Comment(s): Depression and anxiety. General Exam Limitations: no limitations General appearance: alert, in no apparent distress, other (Well-developed, well- nourished female in no acute distress) Respiratory exam: Present: normal lung sounds bilaterally. Absent: respiratory distress, wheezes, rales, rhonchi, stridor Cardiovascular Exam: Present: regular rate, normal rhythm, normal heart sounds. Absent: systolic murmur, diastolic murmur, rubs, gallop, clicks GI/Abdominal exam: Present: soft, normal bowel sounds. Absent: distended, tenderness, guarding, rebound Neurological exam: Present: alert, oriented X3, CN II-XII intact Psychiatric exam: Present: normal affect, normal mood Skin exam: Present: warm, dry, intact, normal color. Absent: rash Course Vital Signs 04/20/21 04/20/21 18:19 21:20 Temperature 99.0 F Pulse Rate 96 86 Respiratory 16 16 Rate Blood Pressure 140/98 116/70 O2 Sat by Pulse 98 100 Oximetry Medical Decision Making - Medical Decision Making 30-year-old female is evaluated for complaints of left lower quadrant abdominal pain. No significant physical exam findings or lab results. Patient was hydrated, given nausea medicine, and pain medication with improvement in symptoms. She was instructed to follow-up BILINGUAL SALES ASSISTANT for further evaluation and treatment. Return parameters were discussed in detail. Patient verbalizes understanding and agrees with this plan. This patient's case was discussed with my attending Dr. Araujo. - Lab Data Result diagrams: 04/20/21 20:25 04/20/21 20:25 Lab Results 04/20/21 04/20/21 04/20/21 Range/Units 20:25 20:25 20:25 WBC 6.5 (3.8-10.6) k/uL RBC 4.06 (3.80-5.40) m/uL Hgb 13.2 (11.4-16.0) gm/dL Hct 36.8 (34.0-46.0) % MCV 90.7 D (80.0-100.0) fL MCH 32.6 (25.0-35.0) pg MCHC 35.9 (31.0-37.0) g/dL RDW 12.6 (11.5-15.5) % Plt Count 216 (150-450) k/uL MPV 7.6 Neutrophils % 67 % Lymphocytes % 25 % Monocytes % 5 % Eosinophils % 0 % Basophils % 0 % Neutrophils # 4.3 (1.3-7.7) k/uL Lymphocytes # 1.6 (1.0-4.8) k/uL Monocytes # 0.3 (0-1.0) k/uL Eosinophils # 0.0 (0-0.7) k/uL Basophils # 0.0 (0-0.2) k/uL Sodium 137 (137-145) mmol/L Potassium 4.2 (3.5-5.1) mmol/L Chloride 103 (98-107) mmol/L Carbon Dioxide 26 (22-30) mmol/L Anion Gap 8 mmol/L BUN 11 (7-17) mg/dL Creatinine 0.75 (0.52-1.04) mg/dL Est GFR (CKD-EPI)AfAm >90 (>60 ml/min/1.73 sqM) Est GFR (CKD-EPI)NonAf >90 (>60 ml/min/1.73 sqM) Glucose 102 H (74-99) mg/dL Calcium 10.1 (8.4-10.2) mg/dL Total Bilirubin 0.7 (0.2-1.3) mg/dL AST 23 (14-36) U/L ALT 16 (4-34) U/L Alkaline Phosphatase 96 (38-126) U/L Total Protein 7.2 (6.3-8.2) g/dL Albumin 4.2 (3.5-5.0) g/dL Urine Color Light Yellow Urine Appearance Cloudy H (Clear) Urine pH 6.0 (5.0-8.0) Ur Specific Tuttle 1.016 (1.001-1.035) Urine Protein Negative (Negative) Urine Glucose (UA) Negative (Negative) Urine Ketones Negative (Negative) Urine Blood Negative (Negative) Urine Nitrite Negative (Negative) Urine Bilirubin Negative (Negative) Urine Urobilinogen <2.0 (<2.0) mg/dL Ur Leukocyte Esterase Negative (Negative) Urine RBC <1 (0-5) /hpf Urine WBC 1 (0-5) /hpf Ur Squamous Epith Cells 2 (0-4) /hpf Urine Bacteria Occasional H (None) /hpf Urine Mucus Rare H (None) /hpf Urine HCG, Qual (Not Detectd) 04/20/21 Range/Units 20:25 WBC (3.8-10.6) k/uL RBC (3.80-5.40) m/uL Hgb (11.4-16.0) gm/dL Hct (34.0-46.0) % MCV (80.0-100.0) fL MCH (25.0-35.0) pg MCHC (31.0-37.0) g/dL RDW (11.5-15.5) % Plt Count (150-450) k/uL MPV Neutrophils % % Lymphocytes % % Monocytes % % Eosinophils % % Basophils % % Neutrophils # (1.3-7.7) k/uL Lymphocytes # (1.0-4.8) k/uL Monocytes # (0-1.0) k/uL Eosinophils # (0-0.7) k/uL Basophils # (0-0.2) k/uL Sodium (137-145) mmol/L Potassium (3.5-5.1) mmol/L Chloride (98-107) mmol/L Carbon Dioxide (22-30) mmol/L Anion Gap mmol/L BUN (7-17) mg/dL Creatinine (0.52-1.04) mg/dL Est GFR (CKD-EPI)AfAm (>60 ml/min/1.73 sqM) Est GFR (CKD-EPI)NonAf (>60 ml/min/1.73 sqM) Glucose (74-99) mg/dL Calcium (8.4-10.2) mg/dL Total Bilirubin (0.2-1.3) mg/dL AST (14-36) U/L ALT (4-34) U/L Alkaline Phosphatase (38-126) U/L Total Protein (6.3-8.2) g/dL Albumin (3.5-5.0) g/dL Urine Color Urine Appearance (Clear) Urine pH (5.0-8.0) Ur Specific Tuttle (1.001-1.035) Urine Protein (Negative) Urine Glucose (UA) (Negative) Urine Ketones (Negative) Urine Blood (Negative) Urine Nitrite (Negative) Urine Bilirubin (Negative) Urine Urobilinogen (<2.0) mg/dL Ur Leukocyte Esterase (Negative) Urine RBC (0-5) /hpf Urine WBC (0-5) /hpf Ur Squamous Epith Cells (0-4) /hpf Urine Bacteria (None) /hpf Urine Mucus (None) /hpf Urine HCG, Qual Not Detected (Not Detectd) Disposition Clinical Impression: Abdominal pain, Nausea Disposition: HOME SELF-CARE Condition: Good Instructions (If sedation given, give patient instructions): Abdominal Pain (ED) Additional Instructions: Call farm worker in the morning to see if an earlier appointment is available, otherwise keep using regular scheduled appointment for April 25. Rest, increase fluids, eat small frequent meals. Return to the emergency department with any new, worsening, or concerning symptoms. Is patient prescribed a controlled substance at d/c from ED?: No Referrals: Kirt Noriega MD [Primary Care Provider] - 1-2 days Time of Disposition: 22:08
[2021-04-20 20:35] LABS: Basophils % (A) 0 %; Eosinophils % (A) 0 %; HCT 36.8 % (34.0-46.0); HGB 13.2 gm/dL (11.4-16.0); Lymphocytes # (A) 1.6 k/uL (1.0-4.8); Lymphocytes % (A) 25 %; MCH 32.6 pg (25.0-35.0); MCHC 35.9 g/dL (31.0-37.0); Mean Platelet Volume 7.6; Monocytes # (A) 0.3 k/uL (0-1.0); Monocytes % (A) 5 %; Neutrophils # (A) 4.3 k/uL (1.3-7.7); Neutrophils % (A) 67 %; Platelet Count 216 k/uL (150-450); RBC 4.06 m/uL (3.80-5.40); RDW 12.6 % (11.5-15.5); WBC 6.5 k/uL (3.8-10.6)
[2021-04-20 20:45] LABS: Appearance,Urine Cloudy (Clear); Bacteria,Urine Occasional /hpf; Bilirubin,Urine Negative (Negative); Blood,Urine Negative (Negative); Color,Urine Light Yellow; Glucose,Urine (UA) Negative (Negative); Ketones,Urine Negative (Negative); Leukocyte Esterase,Urine Negative (Negative); Mucus,Urine Rare /hpf; Nitrite,Urine Negative (Negative); Protein,Urine Negative (Negative); RBC,Urine <1 /hpf (0-5); Specific Gravity,Urine 1.016 (1.001-1.035); Squamous Epithelial Cell,Urine 2 /hpf (0-4); Urobilinogen,Urine <2.0 mg/dL (<2.0); WBC,Urine 1 /hpf (0-5)
[2021-04-20 20:56] LABS: ALT 16 U/L (4-34); AST 23 U/L (14-36); African American GFR (CKD) >90 (>60 ml/min/1.73 sqM); Albumin 4.2 g/dL (3.5-5.0); Alkaline Phosphatase 96 U/L (38-126); Anion Gap 8 mmol/L; Blood Urea Nitrogen 11 mg/dL (7-17); Calcium 10.1 mg/dL (8.4-10.2); Carbon Dioxide 26 mmol/L (22-30); Chloride 103 mmol/L (98-107); Glucose 102 mg/dL (74-99); Non-African American GFR(CKD) >90 (>60 ml/min/1.73 sqM); Potassium 4.2 mmol/L (3.5-5.1); Sodium 137 mmol/L (137-145); Total Bilirubin 0.7 mg/dL (0.2-1.3); Total Protein 7.2 g/dL (6.3-8.2)
[2021-04-20 21:06] LABS: MCV 90.7 fL (80.0-100.0)
[2021-04-20 21:51] VITALS: BP 116/70; PULSE 86
[2021-04-20] MEDS ORDERED: MORPHINE SULFATE 2 MG/ML SYRINGE IVP ONE (22:06)
[2021-04-20] MEDS ORDERED: ACET/COD 300 MG/30 MG STARTER PACK 6 TAB BTL PO STA (22:13)
== END 2021-04-20 22:34 | disposition home or self-care (01) ==
LOC: EC 18:12
DX: R10.32 Left lower quadrant pain (principal); R11.0 Nausea; R63.0 Anorexia
CPT/HCPCS: 96374; 96375; 96376; 99284; 96361; 36415; 80053; 85025; 81001; 81025; J2405; J2270; J1885

== ENCOUNTER 2021-04-23 17:36 | Emergency (ER) | payer OTHER ==
[2021-04-23 17:48] VITALS: BP 110/78; PULSE 87; RESP 16; TEMP 98.4
[2021-04-23] MEDS ORDERED: MORPHINE SULFATE 4 MG/ML SYRINGE IVP PRN (17:58)
[2021-04-23] MEDS ORDERED: KETOROLAC 15 MG/ML 1 ML VIAL IVP STA (17:58)
--- NOTE | 2021-04-23 18:01 | ED ---
General Adult HPI - General Chief complaint: Abdominal Pain Stated complaint: abd pain Time Seen by Provider: 04/23/21 17:50 Source: patient Mode of arrival: ambulatory Limitations: no limitations - History of Present Illness Initial comments: Dictation was produced using [employer] dictation software. please excuse any grammatical, word or spelling errors. Chief Complaint: 30-year-old female past medical history of endometriosis, polyc ystic ovaries and multiple ruptured ovarian cyst presents emergency department for pelvic pain. History of Present Illness: She is 30-year-old female she was seen here in emergency department 4 days ago for similar complaint. Patient has extensive history of ovarian disease. She has history of chronic pelvic pain. She is working with her primary care doctor on how to manage her symptoms. Patient is taking meloxicam. 4 days ago patient was seen here in emergency department for similar issue. She had a CT performed showed free fluid in the pelvis no other issues noted. Patient comes to the emergency department often for similar complaints. This is patient's aphasic in the last month. Denies any fever. She does complain of some mild nausea. States that was comes to the emergency r oom Toradol and morphine seemed to control her symptoms. The ROS documented in this emergency department record has been reviewed and confirmed by me. Those systems with pertinent positive or negative responses have been documented in the HPI. All other systems are other negative and/or noncontributory. PHYSICAL EXAM: General Impression: Alert and oriented x3, not in acute distress HEENT: Normocephalic atraumatic, extra-ocular movements intact, pupils equal and reactive to light bilaterally, mucous membranes moist. Cardiovascular: Heart regular rate and rhythm Chest: Able to complete full sentences, no retractions, no tachypnea Abdomen: abdomen soft, suprapubic tenderness to palpation, non-distended, no organomegaly Musculoskeletal: Pulses present and equal in all extremities, no peripheral edema Motor: no focal deficits noted Neurological: CN II-XII grossly intact, no focal motor or sensory deficits noted Skin: Intact with no visualized rashes Psych: Normal affect and mood ED course: 30-year-old female presents to the emergency department for pelvic pain. Patient has chronic history of pelvic pain. She is having acute exacerbation. Vital Signs upon arrival are within acceptable limits. Pelvic exam: No adnexal tenderness. No cervical motion tenderness. Cervical os is visualized with no cervical erythema or discharge. Cervical os is closed. Laboratory evaluation obtained. CBC, coag panel, metabolic panel is unremarkable. Urinalysis is negative. Transvaginal ultrasound shows 2 cm cyst in the left ovary. No other, again process noted. Patient reevaluated at 7:30 PM found to be in stable medical condition. 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 She is told to continue with that appointment. Patient is well-appearing and stable for discharge. - Related Data Home Medications Medication Instructions Recorded Confirmed Sertraline HCl [Zoloft] 100 mg PO HS 12/24/18 03/15/21 Omeprazole [PriLOSEC] 40 mg PO HS 10/22/19 03/15/21 Ibuprofen [Motrin Ib] 600 mg PO Q8H PRN 03/01/21 03/15/21 Norelgestromin/Ethin.estradiol 1 patch TRANSDERM WE 03/15/21 03/15/21 [Zafemy 150-35 Mcg/Day Patch] Oxybutynin Chloride [Oxybutynin 10 mg PO DAILY 03/15/21 03/15/21 Chloride ER] Previous Rx's Medication Instructions Recorded oxyCODONE HCL/ACETAMINOPHEN 1 tab PO Q6HR PRN 3 Days #12 tab 03/01/21 [Percocet 5-325 mg] Lidocaine 5% Patch [Lidoderm 5% 1 patch TOPICAL DAILY PRN #7 patch 03/09/21 Patch] Nitrofurantoin Monohyd/M-Cryst 100 mg PO Q12HR #14 cap 03/15/21 [Macrobid] Allergies Allergy/AdvReac Type Severity Reaction Status Date / Time adhesive tape Allergy Rash/Hives Verified 04/23/21 17:45 aloe vera Allergy Rash/Hives Verified 04/23/21 17:45 azithromycin Allergy Rash/Hives Verified 04/23/21 17:45 cephalexin Allergy Rash/Hives Verified 04/23/21 17:45 metronidazole [From Flagyl] Allergy Rash/Hives Verified 04/23/21 17:45 Penicillins Allergy Rash/Hives Verified 04/23/21 17:45 sulfamethoxazole Allergy Rash/Hives Verified 04/23/21 17:45 [From Bactrim] trimethoprim [From Bactrim] Allergy Rash/Hives Verified 04/23/21 17:45 alprazolam [From Xanax] AdvReac MAKES Verified 04/23/21 17:45 PARANOID dicyclomine [From Bentyl] AdvReac constipatio Verified 04/23/21 17:45 n Review of Systems ROS Statement: Those systems with pertinent positive or pertinent negative responses have been documented in the HPI. ROS Other: All systems not noted in ROS Statement are negative. Past Medical History Past Medical History: Blood Disorder, GERD/Reflux Additional Past Medical History / Comment(s): Endometriosis, polycystic ovarian syndrome. IRON DEFICIENCY ANEMIA. Stomach Ulcer. ovarian cyst History of Any Multi-Drug Resistant Organisms: None Reported Past Surgical History: Ablation, Section, Cholecystectomy, Tubal Ligation, Uterine Ablation Additional Past Surgical History / Comment(s): Laparoscopy X2, Section X3. Right ovary and right tube removed - 2019. cyst removed from chest. AUG 2020 - ADHESION REMOVAL FROM PAST . Vaginal ablation/endometriosis Past Anesthesia/Blood Transfusion Reactions: No Reported Reaction Past Psychological History: Anxiety, Depression Smoking Status: Never smoker Past Alcohol Use History: None Reported Past Drug Use History: None Reported - Past Family History Mother Family Medical History: Hyperlipidemia Additional Family Medical History / Comment(s): Depression and anxiety. General Exam Limitations: no limitations Course Vital Signs 04/23/21 17:45 Temperature 98.4 F Pulse Rate 87 Respiratory 16 Rate Blood Pressure 110/78 O2 Sat by Pulse 100 Oximetry Medical Decision Making - Lab Data Result diagrams: 04/23/21 18:28 04/23/21 18:28 Lab Results 04/23/21 04/23/21 04/23/21 Range/Units 18:28 18:28 18:28 WBC 5.4 (3.8-10.6) k/uL RBC 3.78 L (3.80-5.40) m/uL Hgb 11.9 (11.4-16.0) gm/dL Hct 35.0 (34.0-46.0) % MCV 92.8 (80.0-100.0) fL MCH 31.4 (25.0-35.0) pg MCHC 33.9 (31.0-37.0) g/dL RDW 12.1 (11.5-15.5) % Plt Count 201 (150-450) k/uL MPV 7.5 Neutrophils % 72 % Lymphocytes % 21 % Monocytes % 5 % Eosinophils % 0 % Basophils % 0 % Neutrophils # 3.9 (1.3-7.7) k/uL Lymphocytes # 1.2 (1.0-4.8) k/uL Monocytes # 0.3 (0-1.0) k/uL Eosinophils # 0.0 (0-0.7) k/uL Basophils # 0.0 (0-0.2) k/uL PT 9.5 (9.0-12.0) sec INR 0.9 (<1.2) APTT 23.4 (22.0-30.0) sec Sodium (137-145) mmol/L Potassium (3.5-5.1) mmol/L Chloride (98-107) mmol/L Carbon Dioxide (22-30) mmol/L Anion Gap mmol/L BUN (7-17) mg/dL Creatinine (0.52-1.04) mg/dL Est GFR (CKD-EPI)AfAm (>60 ml/min/1.73 sqM) Est GFR (CKD-EPI)NonAf (>60 ml/min/1.73 sqM) Glucose (74-99) mg/dL Calcium (8.4-10.2) mg/dL Lipase (23-300) U/L Urine Color Urine Appearance (Clear) Urine pH (5.0-8.0) Ur Specific Max (1.001-1.035) Urine Protein (Negative) Urine Glucose (UA) (Negative) Urine Ketones (Negative) Urine Blood (Negative) Urine Nitrite (Negative) Urine Bilirubin (Negative) Urine Urobilinogen (<2.0) mg/dL Ur Leukocyte Esterase (Negative) Urine HCG, Qual Not Detected (Not Detectd) Blood Type Blood Type Recheck Bld Type Recheck Status Antibody Screen Spec Expiration Date 04/23/21 04/23/21 04/23/21 Range/Units 18:28 18:28 18:28 WBC (3.8-10.6) k/uL RBC (3.80-5.40) m/uL Hgb (11.4-16.0) gm/dL Hct (34.0-46.0) % MCV (80.0-100.0) fL MCH (25.0-35.0) pg MCHC (31.0-37.0) g/dL RDW (11.5-15.5) % Plt Count (150-450) k/uL MPV Neutrophils % % Lymphocytes % % Monocytes % % Eosinophils % % Basophils % % Neutrophils # (1.3-7.7) k/uL Lymphocytes # (1.0-4.8) k/uL Monocytes # (0-1.0) k/uL Eosinophils # (0-0.7) k/uL Basophils # (0-0.2) k/uL PT (9.0-12.0) sec INR (<1.2) APTT (22.0-30.0) sec Sodium 137 (137-145) mmol/L Potassium 4.6 (3.5-5.1) mmol/L Chloride 106 (98-107) mmol/L Carbon Dioxide 23 (22-30) mmol/L Anion Gap 8 mmol/L BUN 12 (7-17) mg/dL Creatinine 0.66 (0.52-1.04) mg/dL Est GFR (CKD-EPI)AfAm >90 (>60 ml/min/1.73 sqM) Est GFR (CKD-EPI)NonAf >90 (>60 ml/min/1.73 sqM) Glucose 94 (74-99) mg/dL Calcium 9.7 (8.4-10.2) mg/dL Lipase 51 (23-300) U/L Urine Color Light Yellow Urine Appearance Clear (Clear) Urine pH 8.0 (5.0-8.0) Ur Specific Max 1.019 (1.001-1.035) Urine Protein Negative (Negative) Urine Glucose (UA) Negative (Negative) Urine Ketones Negative (Negative) Urine Blood Negative (Negative) Urine Nitrite Negative (Negative) Urine Bilirubin Negative (Negative) Urine Urobilinogen <2.0 (<2.0) mg/dL Ur Leukocyte Esterase Negative (Negative) Urine HCG, Qual (Not Detectd) Blood Type A Positive Blood Type Recheck A Pos Bld Type Recheck Status No Antibody Screen NEGATIVE Spec Expiration Date 04/26/20212327 Disposition Clinical Impression: Pelvic cramping Disposition: HOME SELF-CARE Condition: Good Is patient prescribed a controlled substance at d/c from ED?: No Referrals: Kirt Noriega MD [Primary Care Provider] - 1-2 days
[2021-04-23 18:48] LABS: Basophils % (A) 0 %; Eosinophils % (A) 0 %; HGB 11.9 gm/dL (11.4-16.0); Lymphocytes # (A) 1.2 k/uL (1.0-4.8); Lymphocytes % (A) 21 %; MCH 31.4 pg (25.0-35.0); MCHC 33.9 g/dL (31.0-37.0); MCV 92.8 fL (80.0-100.0); Mean Platelet Volume 7.5; Monocytes # (A) 0.3 k/uL (0-1.0); Monocytes % (A) 5 %; Neutrophils # (A) 3.9 k/uL (1.3-7.7); Neutrophils % (A) 72 %; Platelet Count 201 k/uL (150-450); RBC 3.78 m/uL (3.80-5.40); RDW 12.1 % (11.5-15.5); WBC 5.4 k/uL (3.8-10.6)
[2021-04-23 18:59] LABS: African American GFR (CKD) >90 (>60 ml/min/1.73 sqM); Anion Gap 8 mmol/L; Appearance,Urine Clear (Clear); Bilirubin,Urine Negative (Negative); Blood Urea Nitrogen 12 mg/dL (7-17); Blood,Urine Negative (Negative); Calcium 9.7 mg/dL (8.4-10.2); Carbon Dioxide 23 mmol/L (22-30); Chloride 106 mmol/L (98-107); Color,Urine Light Yellow; Glucose 94 mg/dL (74-99); Glucose,Urine (UA) Negative (Negative); Ketones,Urine Negative (Negative); Leukocyte Esterase,Urine Negative (Negative); Lipase 51 U/L (23-300); Nitrite,Urine Negative (Negative); Non-African American GFR(CKD) >90 (>60 ml/min/1.73 sqM); Potassium 4.6 mmol/L (3.5-5.1); Protein,Urine Negative (Negative); Sodium 137 mmol/L (137-145); Specific Gravity,Urine 1.019 (1.001-1.035); Urobilinogen,Urine <2.0 mg/dL (<2.0)
[2021-04-23 19:02] LABS: INR 0.9 (<1.2); Partial Thromboplastin Time 23.4 sec (22.0-30.0); Prothrombin Time 9.5 sec (9.0-12.0)
--- NOTE | 2021-04-23 19:20 | US ---
EXAMINATION TYPE: US transvaginal DATE OF EXAM: 04/23/2021 COMPARISON: CLINICAL HISTORY: pelvic pain. Generalized pelvic pain. Hx endometrial ablation. Hx right ovary rem alcides. TECHNIQUE: Transvaginal (TV). Date of LMP: Aug 2019, EXAM MEASUREMENTS: Uterus: 6.9 x 4.6 x 3.3 cm Left Ovary: 3.3 x 3.0 x 2.3 cm 1. Uterus: Anteverted heterogenous 2. Endometrium: Not seen due to ablation, unable to measure. In endometrial area, possible fluid vi sualized. 3. Right Ovary: Surgically absent 4. Left Ovary: Simple dominant follicle = 2.2 x 2.2 x 2.2 cm Spectral, color and waveform doppler imaging shows good arterial and venous flow within the ovaries ; there is no evidence for ovarian torsion. 5. Bilateral Adnexa: wnl 6. Posterior cul-de-sac: free fluid IMPRESSION: There is 2 cm cyst on the left ovary. No solid adnexal mass. No evidence of ovarian torsion. There is tiny amount of free fluid.
== END 2021-04-23 19:55 | disposition home or self-care (01) ==
LOC: EC 17:36
DX: N83.202 Unspecified ovarian cyst, left side (principal); R11.0 Nausea; K21.9 Gastro-esophageal reflux disease without esophagitis; Z90.49 Acquired absence of other specified parts of digestive tract; Z87.19 Personal history of other diseases of the digestive system; Z87.11 Personal history of peptic ulcer disease; Z88.0 Allergy status to penicillin; Z88.1 Allergy status to other antibiotic agents; Z88.2 Allergy status to sulfonamides; Z90.721 Acquired absence of ovaries, unilateral; Z88.8 Allergy status to other drugs, medicaments and biological substances; Z91.048 Other nonmedicinal substance allergy status; Z91.09 Other allergy status, other than to drugs and biological substances; Z79.899 Other long term (current) drug therapy
CPT/HCPCS: 36415; 86900; 86901; 80048; 83690; 85025; 85610; 85730; 86850; 81003; 81025; 93976; 76830; 99284; 96374; 96375; J2270; J1885

== ENCOUNTER 2021-05-04 18:02 | Emergency (ER) | payer OTHER ==
[2021-05-04 20:36] VITALS: RESP 18; TEMP 98.5
[2021-05-04] MEDS ORDERED: KETOROLAC 15 MG/ML 1 ML VIAL IVP STA (22:58)
[2021-05-04] MEDS ORDERED: MORPHINE SULFATE 4 MG/ML SYRINGE IVP STA (22:58)
[2021-05-05] MEDS ORDERED: MORPHINE SULFATE 4 MG/ML SYRINGE IVP STA (00:04)
--- NOTE | 2021-05-05 00:08 | ED ---
Female Urogenital HPI - General Chief complaint: Vaginal Bleeding Stated complaint: post biopsy pelvic pain Time Seen by Provider: 05/04/21 21:28 Source: patient Mode of arrival: ambulatory - History of Present Illness Initial comments: 30-year-old female presents to the emergency department for pelvic pain. Patient has a history of chronic pelvic pain and has been seen in the emergency department several times for same complaint. Reports that she is following with an endometriosis specialist out of [facility]. States that she had a pelvic biopsy done on Saturday. They did do the biopsy transvaginally of her cervix and uterine lining. Reports that they did the biopsy in preparation of doing a hysterectomy in May. She started having some vaginal bleeding on Saturday which has continued. Reports to suprapubic abdominal pain at the site of her scar. She attempted to call her [facility] who recommended that she come into the emergency room for pain control. She states she's been alternating multiple iyes-nox-maywodo pain medications without improvement in her symptoms. She admits to some vaginal discharge. Follow-up with primary care doctor yesterday and was diagnosed with yeast infection. Patient currently on treatment for this. She also received a shot of Toradol which did not help her pain. Patient states she normally has to come into the emergency department in order to get her chronic pain under control. No other alleviating, precipitating factors - Related Data Home Medications Medication Instructions Recorded Confirmed FLUoxetine HCL [PROzac] 10 mg PO HS 05/11/21 05/29/21 Omeprazole [PriLOSEC] 40 mg PO HS 05/11/21 05/29/21 HYDROcodone/APAP 5-325MG [[place] 1 tab PO Q6H PRN 05/29/21 05/29/21 5-325] Ibuprofen [Motrin] 600 mg PO Q8HR PRN 05/29/21 05/29/21 oxyCODONE HCL [OxyIR] 5 mg PO Q6H PRN 05/29/21 05/29/21 Previous Rx's Medication Instructions Recorded Clindamycin [Cleocin] 300 mg PO Q6H 10 Days #80 cap 05/29/21 HYDROcodone/APAP 7.5-325MG [[place] 1 tab PO Q6HR PRN 3 Days #12 tab 05/29/21 7.5-325] Ibuprofen [Motrin] 600 mg PO Q8HR PRN #24 tab 05/29/21 Allergies Allergy/AdvReac Type Severity Reaction Status Date / Time adhesive tape Allergy Rash/Hives Verified 05/29/21 20:37 aloe vera Allergy Rash/Hives Verified 05/29/21 20:37 azithromycin Allergy Rash/Hives Verified 05/29/21 20:37 cephalexin Allergy Rash/Hives Verified 05/29/21 20:37 metronidazole [From Flagyl] Allergy Rash/Hives Verified 05/29/21 20:37 Penicillins Allergy Rash/Hives Verified 05/29/21 20:37 sulfamethoxazole Allergy Rash/Hives Verified 05/29/21 20:37 [From Bactrim] trimethoprim [From Bactrim] Allergy Rash/Hives Verified 05/29/21 20:37 alprazolam [From Xanax] AdvReac MAKES Verified 05/29/21 20:37 PARANOID dicyclomine [From Bentyl] AdvReac constipatio Verified 05/29/21 20:37 n Review of Systems ROS Statement: Those systems with pertinent positive or pertinent negative responses have been documented in the HPI. ROS Other: All systems not noted in ROS Statement are negative. Past Medical History Past Medical History: Blood Disorder, GERD/Reflux Additional Past Medical History / Comment(s): Endometriosis, polycystic ovarian syndrome. IRON DEFICIENCY ANEMIA. Stomach Ulcer. ovarian cyst History of Any Multi-Drug Resistant Organisms: None Reported Past Surgical History: Ablation, Section, Cholecystectomy, Tubal Ligation, Uterine Ablation Additional Past Surgical History / Comment(s): Laparoscopy X2, Section X3. Right ovary and right tube removed - 2019. cyst removed from chest. AUG 2020 - ADHESION REMOVAL FROM PAST . Vaginal. pelvic biopsy 05/11. PCOS Past Anesthesia/Blood Transfusion Reactions: No Reported Reaction Past Psychological History: Anxiety, Depression Smoking Status: Never smoker Past Alcohol Use History: None Reported Past Drug Use History: None Reported - Past Family History Mother Family Medical History: Hyperlipidemia Additional Family Medical History / Comment(s): Depression and anxiety. General Exam General appearance: alert, in no apparent distress Head exam: Present: atraumatic, normocephalic, normal inspection Eye exam: Present: normal appearance, PERRL, EOMI. Absent: scleral icterus, conjunctival injection, periorbital swelling ENT exam: Present: normal exam, mucous membranes moist Neck exam: Present: normal inspection. Absent: tenderness, meningismus, lymphadenopathy Respiratory exam: Present: normal lung sounds bilaterally. Absent: respiratory distress, wheezes, rales, rhonchi, stridor Cardiovascular Exam: Present: regular rate, normal rhythm, normal heart sounds. Absent: systolic murmur, diastolic murmur, rubs, gallop, clicks GI/Abdominal exam: Present: soft, tenderness (over well healed scar. No induration), normal bowel sounds. Absent: distended, guarding, rebound, rigid External exam: Present: normal external exam Speculum exam: Present: vaginal discharge (thin white discharge) Extremities exam: Present: normal inspection, full ROM, normal capillary refill. Absent: tenderness, pedal edema, joint swelling, calf tenderness Back exam: Present: normal inspection Neurological exam: Present: alert, oriented X3, CN II-XII intact Psychiatric exam: Present: normal affect, normal mood Skin exam: Present: warm, dry, intact, normal color. Absent: rash Course Vital Signs 05/04/21 05/05/21 20:32 01:17 Temperature 98.5 F Pulse Rate 95 78 Respiratory 18 18 Rate Blood Pressure 133/90 114/63 O2 Sat by Pulse 98 97 Oximetry Medical Decision Making - Medical Decision Making Upon arrival patient was placed into room 22. There are history and physical exam is performed. Urinalysis demonstrates no abnormal findings. Pelvic exam is performed and does demonstrate some white discharge however no vaginal bleeding at this time. Sites of cervical biopsy appear slightly red but no bleeding. Patient was given a dose of morphine and states that her pain is much improved. Requesting second dose before she be discharged home. Patient instructed to follow up with her primary care doctor and [facility] for further management. Return to the emergency room for any new symptoms. Patient's discharged home in stable condition - Lab Data Lab Results 05/05/21 Range/Units 00:04 Urine Color Light Yellow Urine Appearance Clear (Clear) Urine pH 6.5 (5.0-8.0) Ur Specific [place] 1.017 (1.001-1.035) Urine Protein Negative (Negative) Urine Glucose (UA) Negative (Negative) Urine Ketones Negative (Negative) Urine Blood Negative (Negative) Urine Nitrite Negative (Negative) Urine Bilirubin Negative (Negative) Urine Urobilinogen <2.0 (<2.0) mg/dL Ur Leukocyte Esterase Negative (Negative) Disposition Clinical Impression: Pelvic pain Disposition: HOME SELF-CARE Condition: Stable Instructions (If sedation given, give patient instructions): Pelvic Pain (ED) Additional Instructions: Please follow up with your specialist as directed. Return to the ED for any new or worsening symptoms. Is patient prescribed a controlled substance at d/c from ED?: No Referrals: Kirt Noriega MD [Primary Care Provider] - 1-2 days Time of Disposition: 00:08
[2021-05-05 01:02] LABS: Appearance,Urine Clear (Clear); Bilirubin,Urine Negative (Negative); Blood,Urine Negative (Negative); Color,Urine Light Yellow; Glucose,Urine (UA) Negative (Negative); Ketones,Urine Negative (Negative); Leukocyte Esterase,Urine Negative (Negative); Nitrite,Urine Negative (Negative); PH, Urine 6.5 (5.0-8.0); Protein,Urine Negative (Negative); Specific Gravity,Urine 1.017 (1.001-1.035); Urobilinogen,Urine <2.0 mg/dL (<2.0)
[2021-05-05 01:18] VITALS: BP 114/63; PULSE 78
== END 2021-05-05 01:21 | disposition home or self-care (01) ==
LOC: EC 18:02
DX: R10.2 Pelvic and perineal pain (principal); R10.30 Lower abdominal pain, unspecified; K21.9 Gastro-esophageal reflux disease without esophagitis; Z79.899 Other long term (current) drug therapy; Z88.0 Allergy status to penicillin; Z88.1 Allergy status to other antibiotic agents; Z88.2 Allergy status to sulfonamides; Z91.09 Other allergy status, other than to drugs and biological substances; Z88.8 Allergy status to other drugs, medicaments and biological substances; Z90.49 Acquired absence of other specified parts of digestive tract; Z90.721 Acquired absence of ovaries, unilateral
CPT/HCPCS: 99284; 96374; 96375; 96376; 81003; J2270 ×2; J1885

== ENCOUNTER 2021-05-11 14:25 | Emergency (ER) | payer OTHER ==
[2021-05-11] MEDS ORDERED: MORPHINE SULFATE 2 MG/ML SYRINGE IVP ONE (15:58)
[2021-05-11] MEDS ORDERED: KETOROLAC 15 MG/ML 1 ML VIAL IVP STA (15:59)
--- NOTE | 2021-05-11 16:04 | ED ---
General Adult HPI - General Chief complaint: Abdominal Pain Stated complaint: Abd cramping Time Seen by Provider: 05/11/21 15:47 Source: patient, RN notes reviewed, old records reviewed Mode of arrival: ambulatory Limitations: no limitations - History of Present Illness Initial comments: This is a 30-year-old white female, alert and oriented 4, presents to the emergency room with left lower quadrant pain that started suddenly at 1:00 today. Patient states that she has a scheduled hysterectomy appointment for May 22 of this year. She has history of tubal ligation, endometriosis, and PCOS. Patient states that she had 2 bowel movements today, denies any fevers nausea or vomiting. She denies any vaginal discharge or vaginal bleeding. She states this is similar to previous pain episodes that she's had in the past with her endometriosis but much worse today. Patient states that she normally comes to the emergency room for pain control and gets IV morphine and Toradol which lasts her about 6 hours. -: hour(s) (2) Location: pelvis (Left lower quadrant) Radiation: non-radiation Severity scale (1-10): 9 Quality: other (Twisting cramping) Consistency: constant Improves with: none Worsens with: none Associated Symptoms: denies other symptoms Treatments Prior to Arrival: none - Related Data Home Medications Medication Instructions Recorded Confirmed FLUoxetine HCL [PROzac] 10 mg PO HS 05/11/21 05/11/21 Mirabegron [Myrbetriq] 25 mg PO HS 05/11/21 05/11/21 Omeprazole [PriLOSEC] 40 mg PO HS 05/11/21 05/11/21 Allergies Allergy/AdvReac Type Severity Reaction Status Date / Time adhesive tape Allergy Rash/Hives Verified 05/11/21 17:29 aloe vera Allergy Rash/Hives Verified 05/11/21 17:29 azithromycin Allergy Rash/Hives Verified 05/11/21 17:29 cephalexin Allergy Rash/Hives Verified 05/11/21 17:29 metronidazole [From Flagyl] Allergy Rash/Hives Verified 05/11/21 17:29 Penicillins Allergy Rash/Hives Verified 05/11/21 17:29 sulfamethoxazole Allergy Rash/Hives Verified 05/11/21 17:29 [From Bactrim] trimethoprim [From Bactrim] Allergy Rash/Hives Verified 05/11/21 17:29 alprazolam [From Xanax] AdvReac MAKES Verified 05/11/21 17:29 PARANOID dicyclomine [From Bentyl] AdvReac constipatio Verified 05/11/21 17:29 n Review of Systems ROS Statement: Those systems with pertinent positive or pertinent negative responses have been documented in the HPI. ROS Other: All systems not noted in ROS Statement are negative. Past Medical History Past Medical History: Blood Disorder, GERD/Reflux Additional Past Medical History / Comment(s): Endometriosis, polycystic ovarian syndrome. IRON DEFICIENCY ANEMIA. Stomach Ulcer. ovarian cyst History of Any Multi-Drug Resistant Organisms: None Reported Past Surgical History: Ablation, Section, Cholecystectomy, Tubal Ligation, Uterine Ablation Additional Past Surgical History / Comment(s): Laparoscopy X2, Section X3. Right ovary and right tube removed - 2019. cyst removed from chest. AUG 2020 - ADHESION REMOVAL FROM PAST . Vaginal. pelvic biopsy 05/11. PCOS Past Anesthesia/Blood Transfusion Reactions: No Reported Reaction Past Psychological History: Anxiety, Depression Smoking Status: Never smoker Past Alcohol Use History: None Reported Past Drug Use History: None Reported - Past Family History Mother Family Medical History: Hyperlipidemia Additional Family Medical History / Comment(s): Depression and anxiety. General Exam Limitations: no limitations General appearance: alert, in no apparent distress Head exam: Present: atraumatic, normocephalic, normal inspection Eye exam: Present: normal appearance, EOMI Respiratory exam: Present: normal lung sounds bilaterally. Absent: respiratory distress, wheezes, rales, rhonchi, stridor Cardiovascular Exam: Present: regular rate, normal rhythm, normal heart sounds. Absent: systolic murmur, diastolic murmur, rubs, gallop, clicks GI/Abdominal exam: Present: soft, tenderness (Left lower quadrant), normal bowel sounds. Absent: distended, guarding, rebound, rigid Extremities exam: Present: normal inspection, full ROM, normal capillary refill. Absent: tenderness, pedal edema, joint swelling, calf tenderness Back exam: Present: normal inspection. Absent: tenderness, CVA tenderness (R), CVA tenderness (L), rash noted Neurological exam: Present: alert, oriented X3 Psychiatric exam: Present: normal affect, normal mood Skin exam: Present: warm, dry, intact, normal color. Absent: rash Course Vital Signs 05/11/21 05/11/21 15:08 18:20 Temperature 98.7 F 98.1 F Pulse Rate 91 70 Respiratory 18 20 Rate Blood Pressure 130/93 133/87 O2 Sat by Pulse 99 100 Oximetry Medical Decision Making - Medical Decision Making Patient was offered a vaginal exam and she declined. Transvaginal ultrasound shows a fibroid uterus with some free fluid. There is post-ablation changes noted and there is a possible hemorrhagic cyst in the left ovary which may be the source of the patient's pain. She was given morphine and Toradol. She is requesting additional doses of morphine I did explain to the patient best treatment for her is anti-inflammatories and warm compresses. Abdomen remains soft. She is agreeable to trying Flexeril and being discharged home. She is scheduled for a hysterectomy on May 22. Case discussed with Dr. Shelton. - Lab Data Lab Results 05/11/21 Range/Units 16:05 Urine Color Light Yellow Urine Appearance Clear (Clear) Urine pH 7.0 (5.0-8.0) Ur Specific [place] 1.008 (1.001-1.035) Urine Protein Negative (Negative) Urine Glucose (UA) Negative (Negative) Urine Ketones Negative (Negative) Urine Blood Negative (Negative) Urine Nitrite Negative (Negative) Urine Bilirubin Negative (Negative) Urine Urobilinogen <2.0 (<2.0) mg/dL Ur Leukocyte Esterase Small H (Negative) Urine RBC <1 (0-5) /hpf Urine WBC 3 (0-5) /hpf Ur Squamous Epith Cells 1 (0-4) /hpf Urine Bacteria Few H (None) /hpf Urine Mucus Rare H (None) /hpf Disposition Clinical Impression: Hemorrhagic cyst of left ovary Disposition: HOME SELF-CARE Condition: Good Instructions (If sedation given, give patient instructions): Ovarian Cyst (ED) Additional Instructions: Tylenol and/or Motrin as needed for pain warm compresses. Follow-up with your primary care doctor in 1 week. Keep your appointment for your scheduled hysterectomy May 22. Is patient prescribed a controlled substance at d/c from ED?: No Referrals: Kirt Noriega MD [Primary Care Provider] - 1-2 days Time of Disposition: 17:52
[2021-05-11 16:32] LABS: Appearance,Urine Clear (Clear); Bacteria,Urine Few /hpf; Bilirubin,Urine Negative (Negative); Blood,Urine Negative (Negative); Color,Urine Light Yellow; Glucose,Urine (UA) Negative (Negative); Ketones,Urine Negative (Negative); Leukocyte Esterase,Urine Small (Negative); Mucus,Urine Rare /hpf; Nitrite,Urine Negative (Negative); Protein,Urine Negative (Negative); RBC,Urine <1 /hpf (0-5); Specific Gravity,Urine 1.008 (1.001-1.035); Squamous Epithelial Cell,Urine 1 /hpf (0-4); Urobilinogen,Urine <2.0 mg/dL (<2.0); WBC,Urine 3 /hpf (0-5)
--- NOTE | 2021-05-11 17:28 | US ---
EXAMINATION TYPE: US transvaginal DATE OF EXAM: 05/11/2021 COMPARISON: Previous exam 04/23/2021 CLINICAL HISTORY: left lower abd and pelvic pain. Patient scheduled for hysterectomy 05/22/2021; ; c section x 3; right ovary removed; endometrial ablation. TECHNIQUE: Transvaginal (TV). Transvaginal sonographic images were medically necessary to better as sess the following anatomy: left ovary Date of LMP: before endometrial ablation EXAM MEASUREMENTS: Uterus: 7.2 x 4.8 x 3.2 cm Endometrial Stripe: not seen with history of endometrial ablation Right Ovary: surgically removed at time of ablation Left Ovary: 3.3 x 2.7 x 2.2 cm 1. Uterus: oval hypoechoic area in superior myometrium may be uterine fibroid = 0.8 x 0.9 x 0.5cm; Na bothian cysts seen in cervix; small amount of fluid seen in EVAN is improved compared to prior exam. 2. Endometrium: not identified 3. Right Ovary: not seen with surgical history 4. Left Ovary: multifollicular with largest as thick walled cyst = 2.1 x1.9 x 1.1cm. Spectral, color and waveform doppler imaging shows arterial and venous flow within the ovary; 5. Bilateral Adnexa: wnl 6. Posterior cul-de-sac: free fluid seen = 2.6 x 3.4 x 2.9 x 0.523 = 13.4ml (abnormal as is greater than 10.0ml). IMPRESSION: Probable fibroid uterus, there is some free fluid present. Correlate for history of right ovary removal. Post ablation changes. Possible hemorrhagic cyst left ovary, involuted follicle.
[2021-05-11] MEDS ORDERED: CYCLOBENZAPRINE 10 MG TAB PO STA (17:50)
[2021-05-11 18:21] VITALS: BP 133/87; PULSE 70; RESP 20; TEMP 98.1
== END 2021-05-11 18:21 | disposition home or self-care (01) ==
LOC: EC 14:25
DX: N83.202 Unspecified ovarian cyst, left side (principal); K21.9 Gastro-esophageal reflux disease without esophagitis; Z79.899 Other long term (current) drug therapy; Z91.09 Other allergy status, other than to drugs and biological substances; Z88.0 Allergy status to penicillin; Z88.1 Allergy status to other antibiotic agents; Z88.2 Allergy status to sulfonamides; Z88.8 Allergy status to other drugs, medicaments and biological substances; Z90.721 Acquired absence of ovaries, unilateral
CPT/HCPCS: 76830; 81001; 93975; 96374; 96375; 99284

== ENCOUNTER 2021-05-29 16:52 | Emergency (ER) | payer OTHER ==
[2021-05-29 18:15] VITALS: BP 119/71; PULSE 103; RESP 20; TEMP 98.8
[2021-05-29] MEDS ORDERED: MORPHINE SULFATE 4 MG/ML SYRINGE IV STA (20:01)
[2021-05-29] MEDS ORDERED: SODIUM CHLORIDE 0.9% 500 ML 500 ML IV STA (20:01)
[2021-05-29 20:38] LABS: Basophils % (A) 0 %; Eosinophils # (A) 0.3 k/uL (0-0.7); Eosinophils % (A) 5 %; HCT 34.6 % (34.0-46.0); HGB 11.9 gm/dL (11.4-16.0); Lymphocytes # (A) 1.6 k/uL (1.0-4.8); Lymphocytes % (A) 28 %; MCH 31.1 pg (25.0-35.0); MCHC 34.5 g/dL (31.0-37.0); Mean Platelet Volume 7.1; Monocytes # (A) 0.3 k/uL (0-1.0); Monocytes % (A) 5 %; Neutrophils # (A) 3.3 k/uL (1.3-7.7); Neutrophils % (A) 59 %; Platelet Count 258 k/uL (150-450); RBC 3.84 m/uL (3.80-5.40); WBC 5.5 k/uL (3.8-10.6)
[2021-05-29 20:39] LABS: Appearance,Urine Clear (Clear); Bilirubin,Urine Negative (Negative); Blood,Urine Negative (Negative); Color,Urine Yellow; Glucose,Urine (UA) Negative (Negative); Ketones,Urine Negative (Negative); Leukocyte Esterase,Urine Negative (Negative); Nitrite,Urine Negative (Negative); PH, Urine 7.5 (5.0-8.0); Protein,Urine Negative (Negative); Specific Gravity,Urine 1.014 (1.001-1.035); Urobilinogen,Urine <2.0 mg/dL (<2.0)
--- NOTE | 2021-05-29 20:50 | ED ---
General Adult HPI - General Chief complaint: Recheck/Abnormal Lab/Rx Stated complaint: possible infected incision Time Seen by Provider: 05/29/21 19:46 Source: patient, RN notes reviewed, old records reviewed Mode of arrival: wheelchair Limitations: no limitations - History of Present Illness Initial comments: 30-year-old female presents for evaluation of abdominal pain 1 week status post hysterectomy. Patient had procedure performed at an outside hospital. She has had increased pain in her midabdomen over the past 24 hours. Her home medications are not working well to control her pain. She's had some nausea without vomiting. Normal bowel movements. No vaginal bleeding. No fever. - Related Data Home Medications Medication Instructions Recorded Confirmed FLUoxetine HCL [PROzac] 10 mg PO HS 05/11/21 05/29/21 Omeprazole [PriLOSEC] 40 mg PO HS 05/11/21 05/29/21 HYDROcodone/APAP 5-325MG [[place] 1 tab PO Q6H PRN 05/29/21 05/29/21 5-325] Ibuprofen [Motrin] 600 mg PO Q8HR PRN 05/29/21 05/29/21 oxyCODONE HCL [OxyIR] 5 mg PO Q6H PRN 05/29/21 05/29/21 Previous Rx's Medication Instructions Recorded Clindamycin [Cleocin] 300 mg PO Q6H 10 Days #80 cap 05/29/21 HYDROcodone/APAP 7.5-325MG [[place] 1 tab PO Q6HR PRN 3 Days #12 tab 05/29/21 7.5-325] Ibuprofen [Motrin] 600 mg PO Q8HR PRN #24 tab 05/29/21 Allergies Allergy/AdvReac Type Severity Reaction Status Date / Time adhesive tape Allergy Rash/Hives Verified 05/29/21 20:37 aloe vera Allergy Rash/Hives Verified 05/29/21 20:37 azithromycin Allergy Rash/Hives Verified 05/29/21 20:37 cephalexin Allergy Rash/Hives Verified 05/29/21 20:37 metronidazole [From Flagyl] Allergy Rash/Hives Verified 05/29/21 20:37 Penicillins Allergy Rash/Hives Verified 05/29/21 20:37 sulfamethoxazole Allergy Rash/Hives Verified 05/29/21 20:37 [From Bactrim] trimethoprim [From Bactrim] Allergy Rash/Hives Verified 05/29/21 20:37 alprazolam [From Xanax] AdvReac MAKES Verified 05/29/21 20:37 PARANOID dicyclomine [From Bentyl] AdvReac constipatio Verified 05/29/21 20:37 n Review of Systems ROS Statement: Those systems with pertinent positive or pertinent negative responses have been documented in the HPI. ROS Other: All systems not noted in ROS Statement are negative. Past Medical History Past Medical History: Blood Disorder, GERD/Reflux Additional Past Medical History / Comment(s): Endometriosis, polycystic ovarian syndrome. IRON DEFICIENCY ANEMIA. Stomach Ulcer. ovarian cyst History of Any Multi-Drug Resistant Organisms: None Reported Past Surgical History: Ablation, Section, Cholecystectomy, Hysterectomy, Tubal Ligation, Uterine Ablation Additional Past Surgical History / Comment(s): Laparoscopy X2, Section X3. Right ovary and right tube removed - 2019. cyst removed from chest. AUG 2020 - ADHESION REMOVAL FROM PAST . Vaginal. pelvic biopsy 05/11. PCOS Past Anesthesia/Blood Transfusion Reactions: No Reported Reaction Past Psychological History: Anxiety, Depression Smoking Status: Never smoker Past Alcohol Use History: None Reported Past Drug Use History: None Reported - Past Family History Mother Family Medical History: Hyperlipidemia Additional Family Medical History / Comment(s): Depression and anxiety. General Exam Limitations: no limitations General appearance: alert, in no apparent distress Head exam: Present: atraumatic, normocephalic Eye exam: Present: normal appearance, PERRL ENT exam: Present: normal exam Neck exam: Present: normal inspection. Absent: tenderness, meningismus Respiratory exam: Present: normal lung sounds bilaterally. Absent: respiratory distress, wheezes Cardiovascular Exam: Present: normal rhythm, tachycardia GI/Abdominal exam: Present: soft, tenderness. Absent: distended, guarding, rebo und Extremities exam: Present: normal inspection, normal capillary refill Neurological exam: Present: alert, oriented X3, CN II-XII intact. Absent: motor sensory deficit Psychiatric exam: Present: normal affect, normal mood Skin exam: Present: warm, dry, intact (Incisions are well-healed, there is no erythema, no purulence) Course Vital Signs 05/29/21 18:12 Temperature 98.8 F Pulse Rate 103 H Respiratory 20 Rate Blood Pressure 119/71 O2 Sat by Pulse 100 Oximetry - Reevaluation(s) Reevaluation #1: 05/29/21 22:36 I did discuss case with Dr. Talamantes, who is the patient's surgeon out of [facility] he does recommend antibiotics and close outpatient follow-up. Recommending clindamycin. Patient has a penicillin ALLERGY. Medical Decision Making - Medical Decision Making 30-year-old female who presented with abdominal pain. Patient is one-week status post laparoscopic hysterectomy at [facility]. Patient is afebrile well-appearing. Abdomen is soft. There is no external signs of infection, no induration or fluctuance. Workup is initiated, patient has a normal CBC, CMP showing a mild transaminitis otherwise unremarkable. CT performed shows a fluid collection in the subcutaneous fat as well as subcutaneous air. I discussed these findings with the patient's surgeon as well as Dr. Bahena covering for general surgery at this institution. Both indicating antibiotics and close outpatient follow-up are appropriate. Patient is started on clindamycin and given Motrin and Wheeler for pain. Strict return parameters were discussed. - Lab Data Result diagrams: 05/29/21 20:30 05/29/21 20:30 Lab Results 05/29/21 05/29/21 05/29/21 Range/Units 20:30 20:30 20:30 WBC 5.5 (3.8-10.6) k/uL RBC 3.84 (3.80-5.40) m/uL Hgb 11.9 (11.4-16.0) gm/dL Hct 34.6 (34.0-46.0) % MCV 90.0 (80.0-100.0) fL MCH 31.1 (25.0-35.0) pg MCHC 34.5 (31.0-37.0) g/dL RDW 13.0 (11.5-15.5) % Plt Count 258 (150-450) k/uL MPV 7.1 Neutrophils % 59 % Lymphocytes % 28 % Monocytes % 5 % Eosinophils % 5 % Basophils % 0 % Neutrophils # 3.3 (1.3-7.7) k/uL Lymphocytes # 1.6 (1.0-4.8) k/uL Monocytes # 0.3 (0-1.0) k/uL Eosinophils # 0.3 (0-0.7) k/uL Basophils # 0.0 (0-0.2) k/uL Sodium 136 L (137-145) mmol/L Potassium 3.8 (3.5-5.1) mmol/L Chloride 103 (98-107) mmol/L Carbon Dioxide 25 (22-30) mmol/L Anion Gap 8 mmol/L BUN 7 (7-17) mg/dL Creatinine 0.64 (0.52-1.04) mg/dL Est GFR (CKD-EPI)AfAm >90 (>60 ml/min/1.73 sqM) Est GFR (CKD-EPI)NonAf >90 (>60 ml/min/1.73 sqM) Glucose 102 H (74-99) mg/dL Plasma Lactic Acid [place] (0.7-2.0) mmol/L Calcium 9.7 (8.4-10.2) mg/dL Total Bilirubin 0.5 (0.2-1.3) mg/dL AST 37 H (14-36) U/L ALT 64 H (4-34) U/L Alkaline Phosphatase 145 H (38-126) U/L Total Protein 7.1 (6.3-8.2) g/dL Albumin 4.0 (3.5-5.0) g/dL Urine Color Yellow Urine Appearance Clear (Clear) Urine pH 7.5 (5.0-8.0) Ur Specific [place] 1.014 (1.001-1.035) Urine Protein Negative (Negative) Urine Glucose (UA) Negative (Negative) Urine Ketones Negative (Negative) Urine Blood Negative (Negative) Urine Nitrite Negative (Negative) Urine Bilirubin Negative (Negative) Urine Urobilinogen <2.0 (<2.0) mg/dL Ur Leukocyte Esterase Negative (Negative) 05/29/21 Range/Units 20:30 WBC (3.8-10.6) k/uL RBC (3.80-5.40) m/uL Hgb (11.4-16.0) gm/dL Hct (34.0-46.0) % MCV (80.0-100.0) fL MCH (25.0-35.0) pg MCHC (31.0-37.0) g/dL RDW (11.5-15.5) % Plt Count (150-450) k/uL MPV Neutrophils % % Lymphocytes % % Monocytes % % Eosinophils % % Basophils % % Neutrophils # (1.3-7.7) k/uL Lymphocytes # (1.0-4.8) k/uL Monocytes # (0-1.0) k/uL Eosinophils # (0-0.7) k/uL Basophils # (0-0.2) k/uL Sodium (137-145) mmol/L Potassium (3.5-5.1) mmol/L Chloride (98-107) mmol/L Carbon Dioxide (22-30) mmol/L Anion Gap mmol/L BUN (7-17) mg/dL Creatinine (0.52-1.04) mg/dL Est GFR (CKD-EPI)AfAm (>60 ml/min/1.73 sqM) Est GFR (CKD-EPI)NonAf (>60 ml/min/1.73 sqM) Glucose (74-99) mg/dL Plasma Lactic Acid [place] 0.8 (0.7-2.0) mmol/L Calcium (8.4-10.2) mg/dL Total Bilirubin (0.2-1.3) mg/dL AST (14-36) U/L ALT (4-34) U/L Alkaline Phosphatase (38-126) U/L Total Protein (6.3-8.2) g/dL Albumin (3.5-5.0) g/dL Urine Color Urine Appearance (Clear) Urine pH (5.0-8.0) Ur Specific [place] (1.001-1.035) Urine Protein (Negative) Urine Glucose (UA) (Negative) Urine Ketones (Negative) Urine Blood (Negative) Urine Nitrite (Negative) Urine Bilirubin (Negative) Urine Urobilinogen (<2.0) mg/dL Ur Leukocyte Esterase (Negative) Disposition Clinical Impression: Abdominal pain, Cutaneous abscess of abdominal wall Disposition: HOME SELF-CARE Condition: Fair Instructions (If sedation given, give patient instructions): Abscess (ED), Abdominal Pain (ED) Additional Instructions: Please call Dr. Talamantes in the morning. Please return with fever, or worsening pain. Prescriptions: Clindamycin [Cleocin] 300 mg PO Q6H 10 Days #80 cap Ibuprofen [Motrin] 600 mg PO Q8HR PRN #24 tab PRN Reason: Pain HYDROcodone/APAP 7.5-325MG [[place] 7.5-325] 1 tab PO Q6HR PRN 3 Days #12 tab PRN Reason: Pain Is patient prescribed a controlled substance at d/c from ED?: No Referrals: Kirt Noriega MD [Primary Care Provider] - 1-2 days Bandar Talamantes MD [REFERRING] - 1-2 days Time of Disposition: 22:42
[2021-05-29] MEDS ORDERED: MORPHINE SULFATE 4 MG/ML SYRINGE IVP STA (21:19)
[2021-05-29 21:20] LABS: ALT 64 U/L (4-34); AST 37 U/L (14-36); African American GFR (CKD) >90 (>60 ml/min/1.73 sqM); Alkaline Phosphatase 145 U/L (38-126); Anion Gap 8 mmol/L; Blood Urea Nitrogen 7 mg/dL (7-17); Calcium 9.7 mg/dL (8.4-10.2); Carbon Dioxide 25 mmol/L (22-30); Chloride 103 mmol/L (98-107); Glucose 102 mg/dL (74-99); Non-African American GFR(CKD) >90 (>60 ml/min/1.73 sqM); Potassium 3.8 mmol/L (3.5-5.1); Sodium 136 mmol/L (137-145); Total Bilirubin 0.5 mg/dL (0.2-1.3); Total Protein 7.1 g/dL (6.3-8.2)
--- NOTE | 2021-05-29 21:23 | CT ---
EXAMINATION TYPE: CT abdomen pelvis w con DATE OF EXAM: 05/29/2021 COMPARISON: 03/21/2021 HISTORY: Abdominal pain, recent hysterectomy. CT DLP: 1153.4 mGycm Automated exposure control for dose reduction was used. CONTRAST: Performed with IV Contrast, patient injected with 100 mL of Isovue 300. Images obtained from the diaphragm to the floor the pelvis with IV contrast. Lung bases are clear. There is no pleural effusion. There is small hiatal hernia. There is a mild pne umoperitoneum consistent with recent hysterectomy. Spleen is intact. There is no evidence of pancreat ic mass. Stomach is intact. There are clips from cholecystectomy. The bile ducts are not dilated. There is no adrenal mass. Kidneys show satisfactory contrast opacification. There is no hydronephrosi s. Delayed images show normal renal excretion. There is soft tissue air in the subcutaneous tissues o ruperto the anterior abdomen at the surgery site. Bladder distends smoothly. There is no inguinal hernia. There is no free fluid in the pelvis. Appendix appears intact. There is no sign of thickened appendi x. The lumbar vertebra have normal alignment. There is no compression fracture. Bony pelvis is intact. H ip joints are intact. There is no mesenteric edema. There is no ascites or free air. There is no evidence of a bowel obstru ction. IMPRESSION: Postsurgical changes. Subcutaneous air and fluid over the anterior abdomen that could be hematoma. Ab scess not excluded. This measures 5 cm in diameter.
[2021-05-29] MEDS ORDERED: VANCOMYCIN IV PER PHARMACY 1 EACH MISC MISCELLANE PRN (21:55)
[2021-05-29] MEDS ORDERED: LEVOFLOXACIN 500MG-D5W PMX 500 MG in DEXTROSE/WATER 1 100ML.BAG IVPB STA (21:55)
[2021-05-29] MEDS ORDERED: KETOROLAC 15 MG/ML 1 ML VIAL IVP STA (22:28)
[2021-05-29] MEDS ORDERED: CLINDAMYCIN 600 MG in DEXTROSE 5% IN WATER 50 ML IVPB ONE ×2 (22:30)
[2021-05-30] MEDS ORDERED: CLINDAMYCIN 600 MG in DEXTROSE 5% IN WATER 50 ML IVPB SCH ×2 (04:00)
== END 2021-05-29 23:09 | disposition home or self-care (01) ==
LOC: EC 16:52
DX: L02.211 Cutaneous abscess of abdominal wall (principal); K21.9 Gastro-esophageal reflux disease without esophagitis; R11.0 Nausea; Z79.899 Other long term (current) drug therapy; Z88.0 Allergy status to penicillin; Z88.1 Allergy status to other antibiotic agents; Z88.2 Allergy status to sulfonamides; Z88.8 Allergy status to other drugs, medicaments and biological substances; Z91.09 Other allergy status, other than to drugs and biological substances; Z91.018 Allergy to other foods
CPT/HCPCS: 36415; 80053; 83605; 85025; 81003; 74177; 99284; 96365; 96375 ×2; 96374; J2270; J1885; Q9967

== ENCOUNTER 2021-05-30 12:24 | Emergency (ER) | payer OTHER ==
[2021-05-30 13:04] VITALS: BP 134/83; PULSE 101; RESP 19; TEMP 98.5
[2021-05-30] MEDS ORDERED: KETOROLAC 15 MG/ML 1 ML VIAL IVP STA (15:37)
[2021-05-30] MEDS ORDERED: SODIUM CHLORIDE 0.9% 1,000 ML IV ONE (15:37)
[2021-05-30 16:01] LABS: Basophils % (A) 0 %; Eosinophils # (A) 0.3 k/uL (0-0.7); Eosinophils % (A) 6 %; HCT 33.6 % (34.0-46.0); HGB 11.8 gm/dL (11.4-16.0); Lymphocytes # (A) 1.4 k/uL (1.0-4.8); Lymphocytes % (A) 27 %; MCHC 35.2 g/dL (31.0-37.0); MCV 90.8 fL (80.0-100.0); Monocytes # (A) 0.2 k/uL (0-1.0); Monocytes % (A) 4 %; Neutrophils # (A) 3.1 k/uL (1.3-7.7); Neutrophils % (A) 61 %; Platelet Count 258 k/uL (150-450); WBC 5.2 k/uL (3.8-10.6)
[2021-05-30 16:17] LABS: ALT 52 U/L (4-34); AST 30 U/L (14-36); African American GFR (CKD) >90 (>60 ml/min/1.73 sqM); Alkaline Phosphatase 135 U/L (38-126); Anion Gap 8 mmol/L; Blood Urea Nitrogen 9 mg/dL (7-17); Calcium 9.3 mg/dL (8.4-10.2); Carbon Dioxide 25 mmol/L (22-30); Chloride 104 mmol/L (98-107); Glucose 98 mg/dL (74-99); Non-African American GFR(CKD) >90 (>60 ml/min/1.73 sqM); Sodium 137 mmol/L (137-145); Total Bilirubin 0.5 mg/dL (0.2-1.3); Total Protein 6.9 g/dL (6.3-8.2)
[2021-05-30] MEDS ORDERED: HYDROmorphone 1 MG/ML 1 ML SYRINGE IVP STA (16:37)
--- NOTE | 2021-05-30 16:38 | ED ---
Abdominal Pain HPI - General Chief Complaint: Abdominal Pain Stated Complaint: incision problems-revisit Time Seen by Provider: 05/30/21 15:12 Source: patient Mode of arrival: wheelchair Limitations: no limitations - History of Present Illness Initial Comments: 30 year-old female patient with past history of chronic abdominal pain, endometriosis, had hysterectomy on 05/22 at [facility], presents today for evaluation of roque-incisional pain. Patient states she started having focal pain on the right side of her abdomen. She was evaluated here yesterday, had labs and CT abdomen and pelvis performed. There was a 5cm fluid collection to the anterior abdominal wall. Patient states that the area of pain has spread today and she is concerned the fluid might be increasing. She denies any redness or drainage from her incisions. Denies fever or chills. She did have diarrhea a couple of days ago. No bowel movement since. Denies nausea or vomiting. States she has no appetite. Patient denies any recent rash, cough, shortness of breath, chest pain, back pain, numbness, tingling, dizziness, weakness, hematuria, dysuria, urinary urgency, urinary frequency, headache, visual changes, or any other complaints. - Related Data Home Medications Medication Instructions Recorded Confirmed FLUoxetine HCL [PROzac] 10 mg PO HS 05/11/21 05/29/21 Omeprazole [PriLOSEC] 40 mg PO HS 05/11/21 05/29/21 HYDROcodone/APAP 5-325MG [[place] 1 tab PO Q6H PRN 05/29/21 05/29/21 5-325] Ibuprofen [Motrin] 600 mg PO Q8HR PRN 05/29/21 05/29/21 oxyCODONE HCL [OxyIR] 5 mg PO Q6H PRN 05/29/21 05/29/21 Previous Rx's Medication Instructions Recorded Clindamycin [Cleocin] 300 mg PO Q6H 10 Days #80 cap 05/29/21 HYDROcodone/APAP 7.5-325MG [[place] 1 tab PO Q6HR PRN 3 Days #12 tab 05/29/21 7.5-325] Ibuprofen [Motrin] 600 mg PO Q8HR PRN #24 tab 05/29/21 Allergies Allergy/AdvReac Type Severity Reaction Status Date / Time adhesive tape Allergy Rash/Hives Verified 05/29/21 20:37 aloe vera Allergy Rash/Hives Verified 05/29/21 20:37 azithromycin Allergy Rash/Hives Verified 05/29/21 20:37 cephalexin Allergy Rash/Hives Verified 05/29/21 20:37 metronidazole [From Flagyl] Allergy Rash/Hives Verified 05/29/21 20:37 Penicillins Allergy Rash/Hives Verified 05/29/21 20:37 sulfamethoxazole Allergy Rash/Hives Verified 05/29/21 20:37 [From Bactrim] trimethoprim [From Bactrim] Allergy Rash/Hives Verified 05/29/21 20:37 alprazolam [From Xanax] AdvReac MAKES Verified 05/29/21 20:37 PARANOID dicyclomine [From Bentyl] AdvReac constipatio Verified 05/29/21 20:37 n Review of Systems ROS Statement: Those systems with pertinent positive or pertinent negative responses have been documented in the HPI. ROS Other: All systems not noted in ROS Statement are negative. Past Medical History Past Medical History: Blood Disorder, GERD/Reflux Additional Past Medical History / Comment(s): Endometriosis, polycystic ovarian syndrome. IRON DEFICIENCY ANEMIA. Stomach Ulcer. ovarian cyst History of Any Multi-Drug Resistant Organisms: None Reported Past Surgical History: Ablation, Section, Cholecystectomy, Hysterectomy, Tubal Ligation, Uterine Ablation Additional Past Surgical History / Comment(s): Laparoscopy X2, Section X3. Right ovary and right tube removed - 2019. cyst removed from chest. AUG 2020 - ADHESION REMOVAL FROM PAST . Vaginal. pelvic biopsy 05/11. PCOS Past Anesthesia/Blood Transfusion Reactions: No Reported Reaction Past Psychological History: Anxiety, Depression Smoking Status: Never smoker Past Alcohol Use History: None Reported Past Drug Use History: None Reported - Past Family History Mother Family Medical History: Hyperlipidemia Additional Family Medical History / Comment(s): Depression and anxiety. General Exam Limitations: no limitations General appearance: alert, in no apparent distress, other (This is a well- developed, well-nourished adult female patient in no acute distress.) ENT exam: Present: normal exam, normal oropharynx, mucous membranes moist Respiratory exam: Present: normal lung sounds bilaterally. Absent: respiratory distress, wheezes, rales, rhonchi, stridor Cardiovascular Exam: Present: normal rhythm, tachycardia, normal heart sounds. Absent: systolic murmur, diastolic murmur, rubs, gallop, clicks GI/Abdominal exam: Present: soft, tenderness (Mild generalized), normal bowel sounds. Absent: distended, guarding, rebound, rigid Neurological exam: Present: alert, oriented X3, CN II-XII intact Psychiatric exam: Present: normal affect, normal mood Skin exam: Present: warm, dry, intact, normal color. Absent: rash Course Vital Signs 05/30/21 12:59 Temperature 98.5 F Pulse Rate 101 H Respiratory 19 Rate Blood Pressure 134/83 O2 Sat by Pulse 98 Oximetry Medical Decision Making - Medical Decision Making 30-year-old female patient presents to the emergency department today for evaluation of abdominal pain. She is postop day #8 after having laparoscopic hysterectomy at [facility]. Physical examination did reveal mild generalized abdominal tenderness. Incisions appear intact with no surrounding erythema or drainage. She is afebrile with normal vital signs except for mildly elevated heart rate on arrival. Labs repeated today revealed normal white blood cell count, stable hemoglobin. Patient has had 4 CT scans of the abdomen and pelvis this year, multiple more in the past. I did discuss the results of the labs with her. Discussed that we would not re-CT scan today, explained risk of developing cancer in later years due to frequent exposure to radiation. She does have an appointment with her TRAVELING STOREKEEPER tomorrow. She is urged to keep this appointment. Return parameters were discussed in detail. She verbalizes understanding and agrees with this plan. Case discussed with my attending Dr. Ramírez. - Lab Data Result diagrams: 05/30/21 15:51 05/30/21 15:51 Lab Results 05/30/21 05/30/21 05/30/21 Range/Units 15:51 15:51 15:51 WBC 5.2 (3.8-10.6) k/uL RBC 3.70 L (3.80-5.40) m/uL Hgb 11.8 (11.4-16.0) gm/dL Hct 33.6 L (34.0-46.0) % MCV 90.8 (80.0-100.0) fL MCH 32.0 (25.0-35.0) pg MCHC 35.2 (31.0-37.0) g/dL RDW 13.0 (11.5-15.5) % Plt Count 258 (150-450) k/uL MPV 7.0 Neutrophils % 61 % Lymphocytes % 27 % Monocytes % 4 % Eosinophils % 6 % Basophils % 0 % Neutrophils # 3.1 (1.3-7.7) k/uL Lymphocytes # 1.4 (1.0-4.8) k/uL Monocytes # 0.2 (0-1.0) k/uL Eosinophils # 0.3 (0-0.7) k/uL Basophils # 0.0 (0-0.2) k/uL Sodium 137 (137-145) mmol/L Potassium 4.0 (3.5-5.1) mmol/L Chloride 104 (98-107) mmol/L Carbon Dioxide 25 (22-30) mmol/L Anion Gap 8 mmol/L BUN 9 (7-17) mg/dL Creatinine 0.68 (0.52-1.04) mg/dL Est GFR (CKD-EPI)AfAm >90 (>60 ml/min/1.73 sqM) Est GFR (CKD-EPI)NonAf >90 (>60 ml/min/1.73 sqM) Glucose 98 (74-99) mg/dL Plasma Lactic Acid [place] 0.5 L (0.7-2.0) mmol/L Calcium 9.3 (8.4-10.2) mg/dL Total Bilirubin 0.5 (0.2-1.3) mg/dL AST 30 (14-36) U/L ALT 52 H (4-34) U/L Alkaline Phosphatase 135 H (38-126) U/L Total Protein 6.9 (6.3-8.2) g/dL Albumin 4.0 (3.5-5.0) g/dL Disposition Clinical Impression: Post-op pain Disposition: HOME SELF-CARE Condition: Good Instructions (If sedation given, give patient instructions): Abdominal Pain (ED) Additional Instructions: Continue home pain medications. Follow-up with your surgeon tomorrow as you have planned. Return to the emergency department immediately for any new, worsening, or concerning symptoms. Is patient prescribed a controlled substance at d/c from ED?: No Referrals: Kirt Noriega MD [Primary Care Provider] - 1-2 days Time of Disposition: 16:38
== END 2021-05-30 17:25 | disposition home or self-care (01) ==
LOC: EC 12:24
DX: G89.18 Other acute postprocedural pain (principal); R10.84 Generalized abdominal pain; K21.9 Gastro-esophageal reflux disease without esophagitis; Z90.49 Acquired absence of other specified parts of digestive tract; Z91.09 Other allergy status, other than to drugs and biological substances; Z91.018 Allergy to other foods; Z88.0 Allergy status to penicillin; Z88.1 Allergy status to other antibiotic agents; Z88.2 Allergy status to sulfonamides; Z88.8 Allergy status to other drugs, medicaments and biological substances; Z79.899 Other long term (current) drug therapy; Z90.710 Acquired absence of both cervix and uterus; Z90.721 Acquired absence of ovaries, unilateral
CPT/HCPCS: 36415; 80053; 83605; 85025; 99284; 96374; 96375; 96361; J1170; J1885

== ENCOUNTER 2021-06-20 16:42 | Emergency (ER) | payer OTHER ==
[2021-06-20 18:12] VITALS: BP 121/81; PULSE 86; RESP 20; TEMP 98.2
[2021-06-20] MEDS ORDERED: HYDROmorphone 1 MG/ML 1 ML SYRINGE IM STA (20:56)
[2021-06-20 21:52] LABS: Appearance,Urine Clear (Clear); Bilirubin,Urine Negative (Negative); Blood,Urine Negative (Negative); Color,Urine Yellow; Glucose,Urine (UA) Negative (Negative); Ketones,Urine Negative (Negative); Leukocyte Esterase,Urine Negative (Negative); Nitrite,Urine Negative (Negative); Protein,Urine Negative (Negative); Specific Gravity,Urine 1.017 (1.001-1.035); Urobilinogen,Urine <2.0 mg/dL (<2.0)
--- NOTE | 2021-06-20 22:07 | US ---
EXAMINATION TYPE: US transvaginal DATE OF EXAM: 06/20/2021 COMPARISON: 05/11/2021 CLINICAL HISTORY: Pelvic pain. Pelvic pain. Hx PCOS, endometriosis, tubal ligation, laparoscopy, hyst erectomy, 3 C Sections, 2 miscarriages, pt still has left ovary. . TECHNIQUE: Transvaginal (TV). Date of LMP: Unknown. EXAM MEASUREMENTS: Left Ovary: 5.0 x 3.9 x 4.2 cm 1. Uterus: Cervix visualized. Anechoic areas seen- largest measures 0.7 x 0.3 x 0.5 cm. 2. Endometrium: - 3. Right Ovary: Surgically absent. 4. Left Ovary: Appears enlarged. Complex area with vascularity seen: 4.2 x 3.9 x 4.1 cm. Spectral, color and waveform doppler imaging shows arterial and venous flow within the ovary; there is no evidence for ovarian torsion. 5. Bilateral Adnexa: Appear wnl 6. Posterior cul-de-sac: Fluid is visualized. IMPRESSION: There is a complex 4.3 cm cyst on the left ovary which is new compared to old exam. There is 6 mm cer vical cyst. There is hysterectomy with cervix remaining. There is mild free fluid in the cul-de-sac s imilar to old exam.
[2021-06-20] MEDS ORDERED: ACET/COD 300 MG/30 MG STARTER PACK 6 TAB BTL PO STA (22:23)
--- NOTE | 2021-06-20 22:23 | ED ---
Abdominal Pain HPI - General Chief Complaint: Abdominal Pain Stated Complaint: abd pain Time Seen by Provider: 06/20/21 20:27 Source: patient Mode of arrival: ambulatory Limitations: no limitations - History of Present Illness Initial Comments: 21-year-old female patient with chronic abdominal pain history of endometriosis presents to the emergency department today for evaluation of lower abdominal pain. States she feels like she is having strikes of lightening to the left lower quadrant, states this happened 3 times today. States she was at [facility] recently and had ultrasound which showed a small hemorrhagic cyst on the left ovary. States that she is concerned he may be getting her because she is feeling more pressure in her lower abdomen. States she has talked to her whipped topping finisher there is no plan for pain relief for her. She states she has been taking ibuprofen at home. Denies any fever or chills. Denies urinary symptoms. Denies any nausea or vomiting. Did recently have hysterectomy and right oophorectomy at an [facility]. - Related Data Home Medications Medication Instructions Recorded Confirmed FLUoxetine HCL [PROzac] 10 mg PO HS 05/11/21 06/20/21 Omeprazole [PriLOSEC] 40 mg PO HS 05/11/21 06/20/21 Mirabegron [Myrbetriq] 25 mg PO HS 06/20/21 06/20/21 Allergies Allergy/AdvReac Type Severity Reaction Status Date / Time adhesive tape Allergy Rash/Hives Verified 06/20/21 22:19 aloe vera Allergy Rash/Hives Verified 06/20/21 22:19 azithromycin Allergy Rash/Hives Verified 06/20/21 22:19 cephalexin Allergy Rash/Hives Verified 06/20/21 22:19 metronidazole [From Flagyl] Allergy Rash/Hives Verified 06/20/21 22:19 Penicillins Allergy Rash/Hives Verified 06/20/21 22:19 sulfamethoxazole Allergy Rash/Hives Verified 06/20/21 22:19 [From Bactrim] trimethoprim [From Bactrim] Allergy Rash/Hives Verified 06/20/21 22:19 alprazolam [From Xanax] AdvReac MAKES Verified 06/20/21 22:19 PARANOID dicyclomine [From Bentyl] AdvReac constipatio Verified 06/20/21 22:19 n Review of Systems ROS Statement: Those systems with pertinent positive or pertinent negative responses have been documented in the HPI. ROS Other: All systems not noted in ROS Statement are negative. Past Medical History Past Medical History: Blood Disorder, GERD/Reflux Additional Past Medical History / Comment(s): Endometriosis, polycystic ovarian syndrome. IRON DEFICIENCY ANEMIA. Stomach Ulcer. ovarian cyst History of Any Multi-Drug Resistant Organisms: None Reported Past Surgical History: Ablation, Section, Cholecystectomy, Hysterectomy, Tubal Ligation, Uterine Ablation Additional Past Surgical History / Comment(s): Laparoscopy X2, Section X3. Right ovary and right tube removed - 2019. cyst removed from chest. AUG 2020 - ADHESION REMOVAL FROM PAST . Vaginal. pelvic biopsy 05/11. PCOS Past Anesthesia/Blood Transfusion Reactions: No Reported Reaction Past Psychological History: Anxiety, Depression Smoking Status: Never smoker Past Alcohol Use History: None Reported Past Drug Use History: None Reported - Past Family History Mother Family Medical History: Hyperlipidemia Additional Family Medical History / Comment(s): Depression and anxiety. General Exam Limitations: no limitations General appearance: alert, in no apparent distress, other (This is a well- developed, well-nourished adult female in no acute distress.) Respiratory exam: Present: normal lung sounds bilaterally. Absent: respiratory distress, wheezes, rales, rhonchi, stridor Cardiovascular Exam: Present: regular rate, normal rhythm, normal heart sounds. Absent: systolic murmur, diastolic murmur, rubs, gallop, clicks GI/Abdominal exam: Present: soft, tenderness (Right lower left lower quadrant tenderness), normal bowel sounds. Absent: distended, guarding, rebound, rigid Neurological exam: Present: alert, oriented X3, CN II-XII intact Psychiatric exam: Present: normal affect, normal mood Skin exam: Present: warm, dry, intact, normal color. Absent: rash Course Vital Signs 06/20/21 18:10 Temperature 98.2 F Pulse Rate 86 Respiratory 20 Rate Blood Pressure 121/81 O2 Sat by Pulse 100 Oximetry Medical Decision Making - Medical Decision Making 31-year-old female patient presented for evaluation of lower abdominal pain. Physical examination did reveal lower abdominal tenderness. Urinalysis was negative. Ultrasound was obtained and showed a 4 cm cyst on the left ovary. She is feeling better after receiving pain medication. She'll be discharged home with a Tylenol codeine starter pack. She is instructed to follow-up with whipped topping finisher for further evaluation as soon as possible. Return parameters were discussed in detail. She verbalizes understanding and agrees with this plan. My attending is Dr. Carpio. - Lab Data Lab Results 06/20/21 Range/Units 21:40 Urine Color Yellow Urine Appearance Clear (Clear) Urine pH 6.0 (5.0-8.0) Ur Specific [place] 1.017 (1.001-1.035) Urine Protein Negative (Negative) Urine Glucose (UA) Negative (Negative) Urine Ketones Negative (Negative) Urine Blood Negative (Negative) Urine Nitrite Negative (Negative) Urine Bilirubin Negative (Negative) Urine Urobilinogen <2.0 (<2.0) mg/dL Ur Leukocyte Esterase Negative (Negative) - Radiology Data Radiology results: report reviewed, image reviewed And vaginal ultrasound was obtained. Report was reviewed in its entirety. Impression by Dr. Melgar shows complex 4. recently or cyst on the left ovary which is new compared to old exam. There is 6 melena or cervical cyst. There is hysterectomy with cervix remaining. There is mild free fluid in the cul-de-sac similar to old exam. Disposition Clinical Impression: Left ovarian cyst Disposition: HOME SELF-CARE Condition: Good Instructions (If sedation given, give patient instructions): Ovarian Cyst (ED) Additional Instructions: Follow-up with the DOG BARBER for recheck as soon as possible. Return for any new, worsening, or concerning symptoms. Is patient prescribed a controlled substance at d/c from ED?: No Referrals: Kirt Noriega MD [Primary Care Provider] - 1-2 days Time of Disposition: 22:23
== END 2021-06-20 22:55 | disposition home or self-care (01) ==
LOC: EC 16:42
DX: N83.202 Unspecified ovarian cyst, left side (principal); K21.9 Gastro-esophageal reflux disease without esophagitis; Z79.899 Other long term (current) drug therapy; Z88.1 Allergy status to other antibiotic agents; Z88.0 Allergy status to penicillin; Z88.2 Allergy status to sulfonamides; Z91.09 Other allergy status, other than to drugs and biological substances
CPT/HCPCS: 81003; 93976; 76830; 99284; 96372; J1170

== ENCOUNTER 2021-06-22 17:07 | Emergency (ER) | payer OTHER ==
[2021-06-22 17:12] VITALS: TEMP 97.8
[2021-06-22] MEDS ORDERED: ONDANSETRON 4 MG/2 ML VIAL IVP STA (22:29)
[2021-06-22] MEDS ORDERED: MORPHINE SULFATE 4 MG/ML SYRINGE IVP STA (22:29)
[2021-06-22 23:06] LABS: Basophils % (A) 0 %; Eosinophils % (A) 1 %; HCT 35.8 % (34.0-46.0); HGB 12.2 gm/dL (11.4-16.0); Lymphocytes # (A) 1.9 k/uL (1.0-4.8); Lymphocytes % (A) 27 %; MCHC 34.2 g/dL (31.0-37.0); MCV 90.8 fL (80.0-100.0); Mean Platelet Volume 8.1; Monocytes # (A) 0.3 k/uL (0-1.0); Monocytes % (A) 5 %; Neutrophils # (A) 4.5 k/uL (1.3-7.7); Neutrophils % (A) 66 %; Platelet Count 230 k/uL (150-450); RBC 3.94 m/uL (3.80-5.40); RDW 13.4 % (11.5-15.5); WBC 6.8 k/uL (3.8-10.6)
[2021-06-22 23:07] LABS: Appearance,Urine Clear (Clear); Bilirubin,Urine Negative (Negative); Blood,Urine Negative (Negative); Color,Urine Yellow; Glucose,Urine (UA) Negative (Negative); Ketones,Urine Negative (Negative); Leukocyte Esterase,Urine Negative (Negative); Nitrite,Urine Negative (Negative); Protein,Urine Trace (Negative); Specific Gravity,Urine 1.028 (1.001-1.035); Urobilinogen,Urine <2.0 mg/dL (<2.0)
[2021-06-22 23:33] LABS: ALT 16 U/L (4-34); AST 22 U/L (14-36); African American GFR (CKD) >90 (>60 ml/min/1.73 sqM); Albumin 4.3 g/dL (3.5-5.0); Alkaline Phosphatase 84 U/L (38-126); Anion Gap 8 mmol/L; Blood Urea Nitrogen 13 mg/dL (7-17); Calcium 9.7 mg/dL (8.4-10.2); Carbon Dioxide 24 mmol/L (22-30); Chloride 104 mmol/L (98-107); Glucose 102 mg/dL (74-99); Non-African American GFR(CKD) >90 (>60 ml/min/1.73 sqM); Potassium 3.8 mmol/L (3.5-5.1); Sodium 136 mmol/L (137-145); Total Bilirubin 0.7 mg/dL (0.2-1.3); Total Protein 7.2 g/dL (6.3-8.2)
--- NOTE | 2021-06-22 23:46 | ED ---
Abdominal Pain HPI - General Chief Complaint: Abdominal Pain Stated Complaint: pelvic pain Time Seen by Provider: 06/22/21 22:15 Source: patient, RN notes reviewed, old records reviewed Mode of arrival: ambulatory Limitations: no limitations - History of Present Illness Initial Comments: Patient is a 31-year-old female presenting to emergency Department with complaints of worsening pain in her left pelvic region. Patient has been here multiple times for similar complaints. She states that she was here just a few days ago, was diagnosed with a left ovarian cyst. She does have an appointment with her BUTCHER SUPERVISOR out of oral woke on Saturday. She states the pain has been worsening and her at-home medications are not helping. She denies any fevers or chills, no vomiting, she has had some nausea. No diarrhea. She does have history of hysterectomy and right ovary removal. Patient denies any chest pain or short of breath, no cough. She has no further complaints. Her vitals are stable upon arrival. - Related Data Home Medications Medication Instructions Recorded Confirmed FLUoxetine HCL [PROzac] 10 mg PO HS 05/11/21 06/22/21 Omeprazole [PriLOSEC] 40 mg PO HS 05/11/21 06/22/21 Mirabegron [Myrbetriq] 25 mg PO HS 06/20/21 06/22/21 Celecoxib [CeleBREX] 200 mg PO DIRECTED 06/22/21 06/22/21 Allergies Allergy/AdvReac Type Severity Reaction Status Date / Time adhesive tape Allergy Rash/Hives Verified 06/22/21 23:09 aloe vera Allergy Rash/Hives Verified 06/22/21 23:09 azithromycin Allergy Rash/Hives Verified 06/22/21 23:09 cephalexin Allergy Rash/Hives Verified 06/22/21 23:09 metronidazole [From Flagyl] Allergy Rash/Hives Verified 06/22/21 23:09 Penicillins Allergy Rash/Hives Verified 06/22/21 23:09 sulfamethoxazole Allergy Rash/Hives Verified 06/22/21 23:09 [From Bactrim] trimethoprim [From Bactrim] Allergy Rash/Hives Verified 06/22/21 23:09 alprazolam [From Xanax] AdvReac MAKES Verified 06/22/21 23:09 PARANOID dicyclomine [From Bentyl] AdvReac constipatio Verified 06/22/21 23:09 n Review of Systems ROS Statement: Those systems with pertinent positive or pertinent negative responses have been documented in the HPI. ROS Other: All systems not noted in ROS Statement are negative. Past Medical History Past Medical History: Blood Disorder, GERD/Reflux Additional Past Medical History / Comment(s): Endometriosis, polycystic ovarian syndrome. IRON DEFICIENCY ANEMIA. Stomach Ulcer. ovarian cyst History of Any Multi-Drug Resistant Organisms: None Reported Past Surgical History: Ablation, Section, Cholecystectomy, Hysterectomy, Tubal Ligation, Uterine Ablation Additional Past Surgical History / Comment(s): Laparoscopy X2, Section X3. Right ovary and right tube removed - 2019. cyst removed from chest. AUG 2020 - ADHESION REMOVAL FROM PAST . Vaginal. pelvic biopsy 05/11. PCOS Past Anesthesia/Blood Transfusion Reactions: No Reported Reaction Past Psychological History: Anxiety, Depression Smoking Status: Never smoker Past Alcohol Use History: None Reported Past Drug Use History: None Reported - Past Family History Mother Family Medical History: Hyperlipidemia Additional Family Medical History / Comment(s): Depression and anxiety. General Exam - General Exam Comments Initial Comments: GENERAL: Patient is well-developed and well-nourished. Patient is nontoxic and in no acute distress. HEAD: Atraumatic, normocephalic. EYES: Pupils equal round and reactive to light, extraocular movements intact, sclera anicteric, conjunctiva are normal. Eyelids were unremarkable. ENT: Moist mucous membranes. NECK: Normal range of motion, supple without lymphadenopathy or JVD. LUNGS: Unlabored respirations. Breath sounds clear to auscultation bilaterally and equal. No wheezes rales or rhonchi. HEART: Regular rate and rhythm without murmurs, rubs or gallops. ABDOMEN: Soft, tender to palpation of the left lower abdomen, normoactive bowel sounds. No guarding, no rebound. No masses appreciated. : Deferred MUSCULOSKELETAL: Normal extremities with adequate strength and normal range of motion, no pitting or edema. No clubbing or cyanosis. NEUROLOGICAL: Patient is alert and oriented x 3. SKIN: Warm, Dry, normal turgor, no rashes or lesions noted. Limitations: no limitations Course Vital Signs 06/22/21 17:09 Temperature 97.8 F Pulse Rate 84 Respiratory 20 Rate Blood Pressure 133/88 O2 Sat by Pulse 100 Oximetry Medical Decision Making - Medical Decision Making Patient is a 31-year-old female here with left lower pelvic pain over the past couple days. She is known to have a left ovarian cyst that was diagnosed a few days ago. She's been here multiple times for similar complaints. She does have an appointment with her BUTCHER SUPERVISOR on Saturday. Her vitals are stable, labs are unremarkable. Ultrasound shows a 4 cm cyst in the left ovary, no evidence over in torsion. Patient received pain control, feeling improvement in her symptoms. She'll follow-up with her BUTCHER SUPERVISOR. She is agreeable to this plan of care. Return parameters were discussed with the patient and she verbalized understanding. Case discussed with Dr. Carpio. - Lab Data Result diagrams: 06/22/21 22:56 06/22/21 22:56 Lab Results 06/22/21 06/22/21 06/22/21 Range/Units 22:56 22:56 22:56 WBC 6.8 (3.8-10.6) k/uL RBC 3.94 (3.80-5.40) m/uL Hgb 12.2 (11.4-16.0) gm/dL Hct 35.8 (34.0-46.0) % MCV 90.8 (80.0-100.0) fL MCH 31.0 (25.0-35.0) pg MCHC 34.2 (31.0-37.0) g/dL RDW 13.4 (11.5-15.5) % Plt Count 230 (150-450) k/uL MPV 8.1 Neutrophils % 66 % Lymphocytes % 27 % Monocytes % 5 % Eosinophils % 1 % Basophils % 0 % Neutrophils # 4.5 (1.3-7.7) k/uL Lymphocytes # 1.9 (1.0-4.8) k/uL Monocytes # 0.3 (0-1.0) k/uL Eosinophils # 0.0 (0-0.7) k/uL Basophils # 0.0 (0-0.2) k/uL Sodium (137-145) mmol/L Potassium (3.5-5.1) mmol/L Chloride (98-107) mmol/L Carbon Dioxide (22-30) mmol/L Anion Gap mmol/L BUN (7-17) mg/dL Creatinine (0.52-1.04) mg/dL Est GFR (CKD-EPI)AfAm (>60 ml/min/1.73 sqM) Est GFR (CKD-EPI)NonAf (>60 ml/min/1.73 sqM) Glucose (74-99) mg/dL Calcium (8.4-10.2) mg/dL Total Bilirubin (0.2-1.3) mg/dL AST (14-36) U/L ALT (4-34) U/L Alkaline Phosphatase (38-126) U/L Total Protein (6.3-8.2) g/dL Albumin (3.5-5.0) g/dL Urine Color Yellow Urine Appearance Clear (Clear) Urine pH 6.0 (5.0-8.0) Ur Specific [place] 1.028 (1.001-1.035) Urine Protein Trace H (Negative) Urine Glucose (UA) Negative (Negative) Urine Ketones Negative (Negative) Urine Blood Negative (Negative) Urine Nitrite Negative (Negative) Urine Bilirubin Negative (Negative) Urine Urobilinogen <2.0 (<2.0) mg/dL Ur Leukocyte Esterase Negative (Negative) Urine HCG, Qual Not Detected (Not Detectd) 06/22/21 Range/Units 22:56 WBC (3.8-10.6) k/uL RBC (3.80-5.40) m/uL Hgb (11.4-16.0) gm/dL Hct (34.0-46.0) % MCV (80.0-100.0) fL MCH (25.0-35.0) pg MCHC (31.0-37.0) g/dL RDW (11.5-15.5) % Plt Count (150-450) k/uL MPV Neutrophils % % Lymphocytes % % Monocytes % % Eosinophils % % Basophils % % Neutrophils # (1.3-7.7) k/uL Lymphocytes # (1.0-4.8) k/uL Monocytes # (0-1.0) k/uL Eosinophils # (0-0.7) k/uL Basophils # (0-0.2) k/uL Sodium 136 L (137-145) mmol/L Potassium 3.8 (3.5-5.1) mmol/L Chloride 104 (98-107) mmol/L Carbon Dioxide 24 (22-30) mmol/L Anion Gap 8 mmol/L BUN 13 (7-17) mg/dL Creatinine 0.77 (0.52-1.04) mg/dL Est GFR (CKD-EPI)AfAm >90 (>60 ml/min/1.73 sqM) Est GFR (CKD-EPI)NonAf >90 (>60 ml/min/1.73 sqM) Glucose 102 H (74-99) mg/dL Calcium 9.7 (8.4-10.2) mg/dL Total Bilirubin 0.7 (0.2-1.3) mg/dL AST 22 (14-36) U/L ALT 16 (4-34) U/L Alkaline Phosphatase 84 (38-126) U/L Total Protein 7.2 (6.3-8.2) g/dL Albumin 4.3 (3.5-5.0) g/dL Urine Color Urine Appearance (Clear) Urine pH (5.0-8.0) Ur Specific [place] (1.001-1.035) Urine Protein (Negative) Urine Glucose (UA) (Negative) Urine Ketones (Negative) Urine Blood (Negative) Urine Nitrite (Negative) Urine Bilirubin (Negative) Urine Urobilinogen (<2.0) mg/dL Ur Leukocyte Esterase (Negative) Urine HCG, Qual (Not Detectd) Disposition Clinical Impression: Left ovarian cyst, Abdominal pain Disposition: HOME SELF-CARE Condition: Stable Instructions (If sedation given, give patient instructions): Ovarian Cyst (ED) Additional Instructions: Please return to the Emergency Department if symptoms worsen or any other concerns. Continue with your at home pain medications, apply heat packs to area. Follow up with your BUTCHER SUPERVISOR. Is patient prescribed a controlled substance at d/c from ED?: No Referrals: Kirt Noriega MD [Primary Care Provider] - 1-2 days Time of Disposition: 00:14
--- NOTE | 2021-06-22 23:49 | US ---
EXAMINATION TYPE: US transvaginal DATE OF EXAM: 06/22/2021 COMPARISON: US, CT Ultrasound 06/20/2021. CLINICAL HISTORY: increased pelvic pain, known left ovarian cyst. Pain. Hx left ovarian cyst, endomet riosis, PCOS, tubal ligation, laparoscopy, hysterectomy with cervix and left ovary remaining, 3 C Sec tions, 2 miscarriages, . TECHNIQUE: Transvaginal (TV). Date of LMP: Unknown. EXAM MEASUREMENTS: Uterus: Hysterectomy with cervix remaining. Left Ovary: 5.2 x 4.1 x 4.5 cm 1. Uterus: Subcentimeter anechoic areas seen within cervix. 2. Endometrium: - 3. Right Ovary: Surgically absent. 4. Left Ovary: Complex area with vascularity seen measuring 4.4 x 3.8 x 4.2 cm. Spectral, color and waveform doppler imaging shows arterial and venous flow within the ovary. 5. Bilateral Adnexa: Fluid seen adjacent to the left ovary. 6. Posterior cul-de-sac: Fluid seen within. IMPRESSION: Hysterectomy. Complex 4 cm cyst on the left ovary. No evidence of ovarian torsion. Complex cyst not s ignificantly different than recent exam. Mild free fluid without change.
[2021-06-23] MEDS ORDERED: HYDROmorphone 0.5 MG/0.5 ML SYRINGE IVP STA (00:12)
[2021-06-23 02:10] VITALS: BP 105/55; PULSE 78; RESP 18
== END 2021-06-23 00:45 | disposition home or self-care (01) ==
LOC: EC 17:07
DX: N83.202 Unspecified ovarian cyst, left side (principal); K21.9 Gastro-esophageal reflux disease without esophagitis; Z88.8 Allergy status to other drugs, medicaments and biological substances; Z91.09 Other allergy status, other than to drugs and biological substances; Z88.1 Allergy status to other antibiotic agents; Z88.0 Allergy status to penicillin; Z88.2 Allergy status to sulfonamides; Z79.899 Other long term (current) drug therapy
CPT/HCPCS: 36415; 80053; 85025; 81003; 81025; 93976; 76830; 99284; 96374; 96375; J2270; J2405; J1170

== ENCOUNTER 2021-07-03 14:21 | Emergency (ER) | payer OTHER ==
[2021-07-03 15:07] VITALS: TEMP 98.4
[2021-07-03 16:04] LABS: Basophils % (A) 0 %; Eosinophils % (A) 1 %; HCT 35.6 % (34.0-46.0); Lymphocytes # (A) 1.6 k/uL (1.0-4.8); Lymphocytes % (A) 31 %; MCH 31.3 pg (25.0-35.0); MCHC 33.9 g/dL (31.0-37.0); MCV 92.3 fL (80.0-100.0); Mean Platelet Volume 7.6; Monocytes # (A) 0.2 k/uL (0-1.0); Monocytes % (A) 4 %; Neutrophils # (A) 3.2 k/uL (1.3-7.7); Neutrophils % (A) 62 %; Platelet Count 211 k/uL (150-450); RBC 3.85 m/uL (3.80-5.40); RDW 12.7 % (11.5-15.5); WBC 5.2 k/uL (3.8-10.6)
[2021-07-03 16:05] LABS: Appearance,Urine Clear (Clear); Bilirubin,Urine Negative (Negative); Blood,Urine Negative (Negative); Color,Urine Light Yellow; Glucose,Urine (UA) Negative (Negative); Ketones,Urine Negative (Negative); Leukocyte Esterase,Urine Negative (Negative); Nitrite,Urine Negative (Negative); PH, Urine 7.5 (5.0-8.0); Protein,Urine Negative (Negative); Specific Gravity,Urine 1.006 (1.001-1.035); Urobilinogen,Urine <2.0 mg/dL (<2.0)
[2021-07-03 16:17] LABS: ALT 20 U/L (4-34); AST 24 U/L (14-36); African American GFR (CKD) >90 (>60 ml/min/1.73 sqM); Albumin 4.4 g/dL (3.5-5.0); Alkaline Phosphatase 104 U/L (38-126); Amylase 56 U/L (30-110); Anion Gap 9 mmol/L; Blood Urea Nitrogen 10 mg/dL (7-17); Calcium 9.7 mg/dL (8.4-10.2); Carbon Dioxide 26 mmol/L (22-30); Chloride 105 mmol/L (98-107); Glucose 96 mg/dL (74-99); Lipase 44 U/L (23-300); Non-African American GFR(CKD) >90 (>60 ml/min/1.73 sqM); Sodium 140 mmol/L (137-145); Total Bilirubin 0.7 mg/dL (0.2-1.3); Total Protein 7.3 g/dL (6.3-8.2)
[2021-07-03] MEDS ORDERED: HYDROmorphone 1 MG/ML 1 ML SYRINGE IVP STA (16:29)
[2021-07-03] MEDS ORDERED: KETOROLAC 15 MG/ML 1 ML VIAL IVP STA (16:29)
--- NOTE | 2021-07-03 16:30 | ED ---
Abdominal Pain HPI - General Chief Complaint: Abdominal Pain Stated Complaint: Abdominal Pain Time Seen by Provider: 07/03/21 15:18 Source: patient, RN notes reviewed Mode of arrival: wheelchair Limitations: no limitations - History of Present Illness Initial Comments: 31-year-old female presents emergency Department with chief complaint of abdominal pain. Patient was recently had [employer]./diagnosed with ovarian cyst on ultrasound. They told her that seemed rupture should have worsening pain. Patient states pain worsened today and came to from for pain control she states she's had prior hysterectomy. Patient denies any nausea vomiting diarrhea c onstipation no fevers or chills no other complaints. - Related Data Home Medications Medication Instructions Recorded Confirmed FLUoxetine HCL [PROzac] 10 mg PO HS 05/11/21 06/22/21 Omeprazole [PriLOSEC] 40 mg PO HS 05/11/21 06/22/21 Mirabegron [Myrbetriq] 25 mg PO HS 06/20/21 06/22/21 Celecoxib [CeleBREX] 200 mg PO DIRECTED 06/22/21 06/22/21 Allergies Allergy/AdvReac Type Severity Reaction Status Date / Time adhesive tape Allergy Rash/Hives Verified 07/03/21 15:07 aloe vera Allergy Rash/Hives Verified 07/03/21 15:07 azithromycin Allergy Rash/Hives Verified 07/03/21 15:07 cephalexin Allergy Rash/Hives Verified 07/03/21 15:07 metronidazole [From Flagyl] Allergy Rash/Hives Verified 07/03/21 15:07 Penicillins Allergy Rash/Hives Verified 07/03/21 15:07 sulfamethoxazole Allergy Rash/Hives Verified 07/03/21 15:07 [From Bactrim] trimethoprim [From Bactrim] Allergy Rash/Hives Verified 07/03/21 15:07 alprazolam [From Xanax] AdvReac MAKES Verified 07/03/21 15:07 PARANOID dicyclomine [From Bentyl] AdvReac constipatio Verified 07/03/21 15:07 n Review of Systems ROS Statement: Those systems with pertinent positive or pertinent negative responses have been documented in the HPI. ROS Other: All systems not noted in ROS Statement are negative. Past Medical History Past Medical History: Blood Disorder, GERD/Reflux Additional Past Medical History / Comment(s): Endometriosis, polycystic ovarian syndrome. IRON DEFICIENCY ANEMIA. Stomach Ulcer. ovarian cyst History of Any Multi-Drug Resistant Organisms: None Reported Past Surgical History: Ablation, Section, Cholecystectomy, Hysterectomy, Tubal Ligation, Uterine Ablation Additional Past Surgical History / Comment(s): Laparoscopy X2, Section X3. Right ovary and right tube removed - 2019. cyst removed from chest. AUG 2020 - ADHESION REMOVAL FROM PAST . Vaginal. pelvic biopsy 05/11. PCOS Past Anesthesia/Blood Transfusion Reactions: No Reported Reaction Past Psychological History: Anxiety, Depression Smoking Status: Never smoker Past Alcohol Use History: None Reported Past Drug Use History: None Reported - Past Family History Mother Family Medical History: Hyperlipidemia Additional Family Medical History / Comment(s): Depression and anxiety. General Exam Limitations: no limitations General appearance: alert, in no apparent distress Head exam: Present: atraumatic, normocephalic, normal inspection Eye exam: Present: normal appearance, PERRL, EOMI. Absent: scleral icterus, conjunctival injection, periorbital swelling Respiratory exam: Present: normal lung sounds bilaterally. Absent: respiratory distress, wheezes, rales, rhonchi, stridor Cardiovascular Exam: Present: regular rate, normal rhythm, normal heart sounds. Absent: systolic murmur, diastolic murmur, rubs, gallop, clicks GI/Abdominal exam: Present: soft, tenderness, normal bowel sounds. Absent: dis tended, guarding, rebound, rigid Back exam: Absent: CVA tenderness (R), CVA tenderness (L) Course Vital Signs 07/03/21 15:05 Temperature 98.4 F Pulse Rate 71 Respiratory 16 Rate Blood Pressure 141/83 O2 Sat by Pulse 100 Oximetry Medical Decision Making - Medical Decision Making Patient presented for abdominal pain patient has known ovarian cyst labs unr emarkable be discharged in stable condition return parameters were discussed. - Lab Data Result diagrams: 07/03/21 15:56 07/03/21 15:56 Lab Results 07/03/21 07/03/21 07/03/21 Range/Units 15:56 15:56 15:56 WBC 5.2 (3.8-10.6) k/uL RBC 3.85 (3.80-5.40) m/uL Hgb 12.0 (11.4-16.0) gm/dL Hct 35.6 (34.0-46.0) % MCV 92.3 (80.0-100.0) fL MCH 31.3 (25.0-35.0) pg MCHC 33.9 (31.0-37.0) g/dL RDW 12.7 (11.5-15.5) % Plt Count 211 (150-450) k/uL MPV 7.6 Neutrophils % 62 % Lymphocytes % 31 % Monocytes % 4 % Eosinophils % 1 % Basophils % 0 % Neutrophils # 3.2 (1.3-7.7) k/uL Lymphocytes # 1.6 (1.0-4.8) k/uL Monocytes # 0.2 (0-1.0) k/uL Eosinophils # 0.0 (0-0.7) k/uL Basophils # 0.0 (0-0.2) k/uL Sodium 140 (137-145) mmol/L Potassium 4.0 (3.5-5.1) mmol/L Chloride 105 (98-107) mmol/L Carbon Dioxide 26 (22-30) mmol/L Anion Gap 9 mmol/L BUN 10 (7-17) mg/dL Creatinine 0.70 (0.52-1.04) mg/dL Est GFR (CKD-EPI)AfAm >90 (>60 ml/min/1.73 sqM) Est GFR (CKD-EPI)NonAf >90 (>60 ml/min/1.73 sqM) Glucose 96 (74-99) mg/dL Plasma Lactic Acid Santhosh (0.7-2.0) mmol/L Calcium 9.7 (8.4-10.2) mg/dL Total Bilirubin 0.7 (0.2-1.3) mg/dL AST 24 (14-36) U/L ALT 20 (4-34) U/L Alkaline Phosphatase 104 (38-126) U/L Total Protein 7.3 (6.3-8.2) g/dL Albumin 4.4 (3.5-5.0) g/dL Amylase 56 (30-110) U/L Lipase 44 (23-300) U/L Urine Color Light Yellow Urine Appearance Clear (Clear) Urine pH 7.5 (5.0-8.0) Ur Specific [place] 1.006 (1.001-1.035) Urine Protein Negative (Negative) Urine Glucose (UA) Negative (Negative) Urine Ketones Negative (Negative) Urine Blood Negative (Negative) Urine Nitrite Negative (Negative) Urine Bilirubin Negative (Negative) Urine Urobilinogen <2.0 (<2.0) mg/dL Ur Leukocyte Esterase Negative (Negative) 07/03/21 Range/Units 15:56 WBC (3.8-10.6) k/uL RBC (3.80-5.40) m/uL Hgb (11.4-16.0) gm/dL Hct (34.0-46.0) % MCV (80.0-100.0) fL MCH (25.0-35.0) pg MCHC (31.0-37.0) g/dL RDW (11.5-15.5) % Plt Count (150-450) k/uL MPV Neutrophils % % Lymphocytes % % Monocytes % % Eosinophils % % Basophils % % Neutrophils # (1.3-7.7) k/uL Lymphocytes # (1.0-4.8) k/uL Monocytes # (0-1.0) k/uL Eosinophils # (0-0.7) k/uL Basophils # (0-0.2) k/uL Sodium (137-145) mmol/L Potassium (3.5-5.1) mmol/L Chloride (98-107) mmol/L Carbon Dioxide (22-30) mmol/L Anion Gap mmol/L BUN (7-17) mg/dL Creatinine (0.52-1.04) mg/dL Est GFR (CKD-EPI)AfAm (>60 ml/min/1.73 sqM) Est GFR (CKD-EPI)NonAf (>60 ml/min/1.73 sqM) Glucose (74-99) mg/dL Plasma Lactic Acid Santhosh 1.0 (0.7-2.0) mmol/L Calcium (8.4-10.2) mg/dL Total Bilirubin (0.2-1.3) mg/dL AST (14-36) U/L ALT (4-34) U/L Alkaline Phosphatase (38-126) U/L Total Protein (6.3-8.2) g/dL Albumin (3.5-5.0) g/dL Amylase (30-110) U/L Lipase (23-300) U/L Urine Color Urine Appearance (Clear) Urine pH (5.0-8.0) Ur Specific [place] (1.001-1.035) Urine Protein (Negative) Urine Glucose (UA) (Negative) Urine Ketones (Negative) Urine Blood (Negative) Urine Nitrite (Negative) Urine Bilirubin (Negative) Urine Urobilinogen (<2.0) mg/dL Ur Leukocyte Esterase (Negative) Disposition Clinical Impression: Abdominal pain, Ovarian cyst Disposition: HOME SELF-CARE Condition: Stable Instructions (If sedation given, give patient instructions): Abdominal Pain (ED) Additional Instructions: Please return to the Emergency Department if symptoms worsen or any other concerns. Is patient prescribed a controlled substance at d/c from ED?: No Referrals: Kirt Noriega MD [Primary Care Provider] - 1-2 days Time of Disposition: 16:52
[2021-07-03] MEDS ORDERED: ACET/COD 300 MG/30 MG STARTER PACK 6 TAB BTL PO STA (16:52)
[2021-07-03 17:54] VITALS: BP 106/59; PULSE 68; RESP 18
== END 2021-07-03 17:54 | disposition home or self-care (01) ==
LOC: EC 14:21
DX: N83.209 Unspecified ovarian cyst, unspecified side (principal); K21.9 Gastro-esophageal reflux disease without esophagitis; Z79.899 Other long term (current) drug therapy; Z88.0 Allergy status to penicillin; Z88.2 Allergy status to sulfonamides; Z88.1 Allergy status to other antibiotic agents; Z91.09 Other allergy status, other than to drugs and biological substances
CPT/HCPCS: 99284; 96374; 96375; 36415; 80053; 82150; 83605; 83690; 85025; 81003; J1170; J1885

== ENCOUNTER 2021-07-06 16:38 | Emergency (ER) | payer OTHER ==
[2021-07-06 17:10] VITALS: RESP 20; TEMP 98.5
[2021-07-06] MEDS ORDERED: KETOROLAC 15 MG/ML 1 ML VIAL IVP STA (17:47)
[2021-07-06] MEDS ORDERED: HYDROmorphone 0.5 MG/0.5 ML SYRINGE IVP STA ×2 (17:47→20:38)
[2021-07-06 18:17] LABS: Appearance,Urine Clear (Clear); Basophils % (A) 0 %; Bilirubin,Urine Negative (Negative); Blood,Urine Negative (Negative); Color,Urine Light Yellow; Eosinophils % (A) 1 %; Glucose,Urine (UA) Negative (Negative); HCT 33.9 % (34.0-46.0); HGB 11.3 gm/dL (11.4-16.0); Ketones,Urine Negative (Negative); Leukocyte Esterase,Urine Negative (Negative); Lymphocytes # (A) 1.8 k/uL (1.0-4.8); Lymphocytes % (A) 33 %; MCH 31.2 pg (25.0-35.0); MCHC 33.4 g/dL (31.0-37.0); MCV 93.4 fL (80.0-100.0); Mean Platelet Volume 7.4; Monocytes # (A) 0.3 k/uL (0-1.0); Monocytes % (A) 5 %; Neutrophils # (A) 3.1 k/uL (1.3-7.7); Neutrophils % (A) 58 %; Nitrite,Urine Negative (Negative); Platelet Count 230 k/uL (150-450); Protein,Urine Negative (Negative); RBC 3.63 m/uL (3.80-5.40); RDW 12.6 % (11.5-15.5); Specific Gravity,Urine 1.011 (1.001-1.035); Urobilinogen,Urine <2.0 mg/dL (<2.0); WBC 5.3 k/uL (3.8-10.6)
[2021-07-06 18:55] LABS: African American GFR (CKD) >90 (>60 ml/min/1.73 sqM); Anion Gap 7 mmol/L; Blood Urea Nitrogen 11 mg/dL (7-17); Calcium 9.4 mg/dL (8.4-10.2); Carbon Dioxide 27 mmol/L (22-30); Chloride 104 mmol/L (98-107); Glucose 96 mg/dL (74-99); Non-African American GFR(CKD) >90 (>60 ml/min/1.73 sqM); Potassium 3.7 mmol/L (3.5-5.1); Sodium 138 mmol/L (137-145)
[2021-07-06 19:54] VITALS: BP 131/78; PULSE 80
--- NOTE | 2021-07-06 20:13 | US ---
EXAMINATION TYPE: US transvaginal DATE OF EXAM: 07/06/2021 COMPARISON: US 06/22/2021 CLINICAL HISTORY: 31 yo with LLQ pain h/o complex ovarian cyst. LLQ pain, hx of complex ovarian cyst. Hx endometriosis, PCOS, tubal ligation, laparoscopy, hysterecto my with cervix and left ovary remaining, 3 C Sections, 2 miscarriages, A2. TECHNIQUE: Transvaginal (TV). Transabdominal sonographic images of the pelvis were acquired. Date of LMP: Unknown. FINDINGS: MEASUREMENTS: Uterus: Hysterectomy with cervix remaining. Left Ovary: 3.2 x 2.6 x 2.8 cm Right ovary: Surgically absent. FINDINGS: 1. Anechoic fluid-appearing area in cervix measuring 3.7 x 1.1 x 0.2 cm. Subcentimeter anechoic area seen in cervix. Anechoic cervical cyst redemonstrated without interval change, measuring 6 mm diamet er. 2. Endometrium: The endometrial cavity is slightly distended with a minimal volume of anechoic fluid . Endometrial stripe thickness within normal limits. 3. Right Ovary: Surgically absent. 4. Left Ovary: Anechoic focus seen measuring 1.9 x 1.8 x 1.4 cm. Spectral, color and waveform doppler imaging shows normal arterial and venous flow within the left ovary. 5. Bilateral Adnexa: Appear wnl. 6. Posterior cul-de-sac: Small volume of anechoic simple appearing fluid demonstrated. IMPRESSION: 1. No acute process. 2. Previously seen 4 cm complex left ovarian cyst has resolved since the 06/22/2021 Ultrasound exami [facility]. Currently there is a 1.8 x 1.8 x 1.4 cm anechoic simple left ovarian cyst, likely functional.
--- NOTE | 2021-07-06 21:32 | CT ---
EXAMINATION TYPE: CT abdomen pelvis w con DATE OF EXAM: 07/06/2021 COMPARISON: 05/29/2021 HISTORY: Left lower quadrant abdominal pain. CT DLP: 1373 mGycm Automated exposure control for dose reduction was used. TECHNIQUE: Helical acquisition of images was performed from the lung bases through the pelvis. CONTRAST: Performed without Oral Contrast and with IV Contrast, patient injected with 100ml mL of Iso kellee 300. FINDINGS: LUNG BASES: No acute findings. LIVER/GB: No significant abnormality is appreciated. PANCREAS: No significant abnormality is seen. SPLEEN: No significant abnormality is seen. ADRENALS: No significant abnormality is seen. KIDNEYS: No significant abnormality is seen. RETROPERITONEAL ADENOPATHY: None visualized PERITONEAL CAVITY: There is a small volume of dependent fluid within the cul-de-sac, presumably relat ed to functional ovarian cyst. REPRODUCTIVE ORGANS: No significant abnormality is seen URINARY BLADDER: No significant abnormality is seen. PELVIC ADENOPATHY: None visualized. BOWEL: No significant abnormality is seen. VASCULATURE: No acute findings. ANTERIOR ABDOMINAL WALL: The previously seen midline postsurgical changes have nearly entirely resolv ed. OSSEOUS STRUCTURES: No significant abnormality is seen. IMPRESSION: SMALL VOLUME DEPENDENT FLUID WITHIN THE CUL-DE-SAC, PRESUMABLY RELATED TO FUNCTIONAL OVARIAN CYST. NO OTHER FINDINGS.
[2021-07-06] MEDS ORDERED: HYDROcodone/APAP 5-325MG 1 EACH TAB PO STA (22:21)
--- NOTE | 2021-07-06 22:24 | ED ---
General Adult HPI - General Chief complaint: Abdominal Pain Stated complaint: Abd pain Time Seen by Provider: 07/06/21 17:21 Source: patient, RN notes reviewed Mode of arrival: wheelchair Limitations: no limitations - History of Present Illness Initial comments: 31-year-old female presents to the emergency Department with complaints of left lower quadrant abdominal pain, worsening today. States pain radiates diffusely around the abdomen and to the flank as well. Patient states this is an ongoing issue for her due to a history of a known left ovarian cyst. Reports mild nausea, but denies vomiting. States she is supposed to follow up with her OB /CDA TEACHER but has not done so. Patient denies fever, chills, headache, chest pain, shortness of breath, vomiting, diarrhea, dysuria, or hematuria. - Related Data Home Medications Medication Instructions Recorded Confirmed FLUoxetine HCL [PROzac] 10 mg PO HS 05/11/21 07/06/21 Omeprazole [PriLOSEC] 40 mg PO HS 05/11/21 07/06/21 Mirabegron [Myrbetriq] 25 mg PO HS 06/20/21 07/06/21 Previous Rx's Medication Instructions Recorded Ibuprofen [Motrin] 600 mg PO Q8HR PRN #30 tab 07/06/21 Allergies Allergy/AdvReac Type Severity Reaction Status Date / Time adhesive tape Allergy Rash/Hives Verified 07/06/21 18:27 aloe vera Allergy Rash/Hives Verified 07/06/21 18:27 azithromycin Allergy Rash/Hives Verified 07/06/21 18:27 cephalexin Allergy Rash/Hives Verified 07/06/21 18:27 metronidazole [From Flagyl] Allergy Rash/Hives Verified 07/06/21 18:27 Penicillins Allergy Rash/Hives Verified 07/06/21 18:27 sulfamethoxazole Allergy Rash/Hives Verified 07/06/21 18:27 [From Bactrim] trimethoprim [From Bactrim] Allergy Rash/Hives Verified 07/06/21 18:27 alprazolam [From Xanax] AdvReac MAKES Verified 07/06/21 18:27 PARANOID dicyclomine [From Bentyl] AdvReac constipatio Verified 07/06/21 18:27 n Review of Systems ROS Statement: Those systems with pertinent positive or pertinent negative responses have been documented in the HPI. ROS Other: All systems not noted in ROS Statement are negative. Past Medical History Past Medical History: Blood Disorder, GERD/Reflux Additional Past Medical History / Comment(s): Endometriosis, polycystic ovarian syndrome. IRON DEFICIENCY ANEMIA. Stomach Ulcer. ovarian cyst History of Any Multi-Drug Resistant Organisms: None Reported Past Surgical History: Ablation, Section, Cholecystectomy, Hysterectomy, Tubal Ligation, Uterine Ablation Additional Past Surgical History / Comment(s): Laparoscopy X2, Section X3. Right ovary and right tube removed - 2019. cyst removed from chest. AUG 23 - ADHESION REMOVAL FROM PAST . Vaginal. pelvic biopsy 05/11. PCOS Past Anesthesia/Blood Transfusion Reactions: No Reported Reaction Past Psychological History: Anxiety, Depression Smoking Status: Never smoker Past Alcohol Use History: None Reported Past Drug Use History: None Reported - Past Family History Mother Family Medical History: Hyperlipidemia Additional Family Medical History / Comment(s): Depression and anxiety. General Exam Limitations: no limitations (All developed, well-nourished female in no acute distress. Initial temperature 98.5, pulse 78, respirations 20, blood pressure 145/67, pulse ox 100% on room air.) General appearance: alert, in no apparent distress ENT exam: Present: normal exam, mucous membranes moist Respiratory exam: Present: normal lung sounds bilaterally. Absent: respiratory distress, wheezes, rales, rhonchi, stridor Cardiovascular Exam: Present: regular rate, normal rhythm, normal heart sounds. Absent: systolic murmur, diastolic murmur, rubs, gallop, clicks GI/Abdominal exam: Present: soft, tenderness (Mild tenderness upon palpation of the left lower), normal bowel sounds. Absent: distended, guarding, rebound, rigid Back exam: Absent: CVA tenderness (R), CVA tenderness (L) Neurological exam: Present: alert, oriented X3, CN II-XII intact Psychiatric exam: Present: normal affect, normal mood Skin exam: Present: warm, dry, intact, normal color. Absent: rash Course Vital Signs 07/06/21 07/06/21 17:08 19:50 Temperature 98.5 F Pulse Rate 78 80 Respiratory 20 20 Rate Blood Pressure 145/67 131/78 O2 Sat by Pulse 100 99 Oximetry Medical Decision Making - Medical Decision Making 31-year-old female with a past medical history of hysterectomy and ovarian cysts presents to the emergency department for evaluation of left lower quadrant ab dominal pain. Upon exam, patient is well-appearing and in no acute distress. Does have mild left-sided pain upon palpation there was CVA tenderness. Vital signs are stable. Patient is afebrile. Given pain medication and nausea medication with improvement. Laboratory studies were obtained and are unremarkable. Ultrasound shows resolution of previously visualized complex 4 cm left ovarian cyst; now has smaller simple left ovarian cyst. CT of the abdomen and pelvis with contrast was also obtained and was negative for any acute findings. Results were reviewed with patient. She is instructed to follow up with her TRANSFER CLERK for further evaluation and treatment. This patient's care was discussed with my attending DR. Araujo. - Lab Data Result diagrams: 07/06/21 18:03 07/06/21 18:03 Lab Results 07/06/21 07/06/21 07/06/21 Range/Units 18:03 18:03 18:03 WBC 5.3 (3.8-10.6) k/uL RBC 3.63 L (3.80-5.40) m/uL Hgb 11.3 L (11.4-16.0) gm/dL Hct 33.9 L (34.0-46.0) % MCV 93.4 (80.0-100.0) fL MCH 31.2 (25.0-35.0) pg MCHC 33.4 (31.0-37.0) g/dL RDW 12.6 (11.5-15.5) % Plt Count 230 (150-450) k/uL MPV 7.4 Neutrophils % 58 % Lymphocytes % 33 % Monocytes % 5 % Eosinophils % 1 % Basophils % 0 % Neutrophils # 3.1 (1.3-7.7) k/uL Lymphocytes # 1.8 (1.0-4.8) k/uL Monocytes # 0.3 (0-1.0) k/uL Eosinophils # 0.0 (0-0.7) k/uL Basophils # 0.0 (0-0.2) k/uL Sodium 138 (137-145) mmol/L Potassium 3.7 (3.5-5.1) mmol/L Chloride 104 (98-107) mmol/L Carbon Dioxide 27 (22-30) mmol/L Anion Gap 7 mmol/L BUN 11 (7-17) mg/dL Creatinine 0.76 (0.52-1.04) mg/dL Est GFR (CKD-EPI)AfAm >90 (>60 ml/min/1.73 sqM) Est GFR (CKD-EPI)NonAf >90 (>60 ml/min/1.73 sqM) Glucose 96 (74-99) mg/dL Calcium 9.4 (8.4-10.2) mg/dL Urine Color Light Yellow Urine Appearance Clear (Clear) Urine pH 7.0 (5.0-8.0) Ur Specific [place] 1.011 (1.001-1.035) Urine Protein Negative (Negative) Urine Glucose (UA) Negative (Negative) Urine Ketones Negative (Negative) Urine Blood Negative (Negative) Urine Nitrite Negative (Negative) Urine Bilirubin Negative (Negative) Urine Urobilinogen <2.0 (<2.0) mg/dL Ur Leukocyte Esterase Negative (Negative) - Radiology Data Radiology results: report reviewed, image reviewed CT of the abdomen and pelvis with contrast was obtained. Report was reviewed in its entirety. Impression per Dr. Morfin is small amount of fluid within the cul-de-sac presumably related to functional ovarian cyst. no other findings. Transvaginal ultrasound was obtained. Report was reviewed in its entirety. Impression per Dr. Morfin is no acute process. Previous 4 cm complex left ovarian cyst has resolved. Currently there is a 1.8 x 1.8 x 1.4 anechoic simple left ovarian cyst, likely functional. Disposition Clinical Impression: Ovarian cyst, left Disposition: HOME SELF-CARE Condition: Stable Instructions (If sedation given, give patient instructions): Abdominal Pain (ED) Additional Instructions: May take Motrin for pain. Follow up with your OB-CDA TEACHER as scheduled. Return to the Emergency Department with any new, worsening, or concerning symptoms. Prescriptions: Ibuprofen [Motrin] 600 mg PO Q8HR PRN #30 tab PRN Reason: Pain Is patient prescribed a controlled substance at d/c from ED?: No Referrals: Kirt Noriega MD [Primary Care Provider] - 1-2 days Time of Disposition: 22:22
== END 2021-07-06 22:45 | disposition home or self-care (01) ==
LOC: EC 16:38
DX: N83.202 Unspecified ovarian cyst, left side (principal); K21.9 Gastro-esophageal reflux disease without esophagitis; Z88.0 Allergy status to penicillin; Z88.2 Allergy status to sulfonamides; Z88.1 Allergy status to other antibiotic agents; Z88.8 Allergy status to other drugs, medicaments and biological substances; Z90.49 Acquired absence of other specified parts of digestive tract; Z91.09 Other allergy status, other than to drugs and biological substances; Z79.899 Other long term (current) drug therapy
CPT/HCPCS: 36415; 80048; 85025; 81003; 93976; 76830; 74177; 99284; 96374; 96375; 96376; J1885; J1170; Q9967

== ENCOUNTER 2021-07-11 14:50 | Emergency (ER) | payer OTHER ==
[2021-07-11 16:58] VITALS: BP 134/80; RESP 19; TEMP 99.1
[2021-07-11] MEDS ORDERED: SODIUM CHLORIDE 0.9% 1,000 ML IV STA (17:47)
[2021-07-11] MEDS ORDERED: ONDANSETRON 4 MG/2 ML VIAL IVP STA ×2 (17:47→19:40)
[2021-07-11] MEDS ORDERED: FAMOTIDINE 20 MG/2 ML VIAL IV STA (17:48)
[2021-07-11] MEDS ORDERED: HYDROmorphone 1 MG/ML 1 ML SYRINGE IVP STA (17:48)
--- NOTE | 2021-07-11 17:51 | ED ---
General Adult HPI - General Chief complaint: Abdominal Pain Stated complaint: Abdominal Pain Time Seen by Provider: 07/11/21 17:37 Source: patient, RN notes reviewed, old records reviewed (Patient has multiple previous visits with abdominal or pelvic pain multiple previous CT scans) Mode of arrival: ambulatory Limitations: no limitations - History of Present Illness Initial comments: Patient is a pleasant 31-year-old female presenting to the emergency Department with right lower quadrant abdominal pain. Patient states she was here last week with pain from ovarian cysts however this feels somewhat different. Discomfort was in the left side however now is on the right side. No fevers at home. Patient has had nausea and did spit up one time. No constipation or diarrhea. No dysuria or hematuria. No vaginal discharge. Discomfort does increase with position changes. - Related Data Home Medications Medication Instructions Recorded Confirmed FLUoxetine HCL [PROzac] 10 mg PO HS 05/11/21 07/11/21 Omeprazole [PriLOSEC] 40 mg PO HS 05/11/21 07/11/21 Previous Rx's Medication Instructions Recorded Ibuprofen [Motrin] 600 mg PO Q8HR PRN #30 tab 07/06/21 Allergies Allergy/AdvReac Type Severity Reaction Status Date / Time adhesive tape Allergy Rash/Hives Verified 07/11/21 18:20 aloe vera Allergy Rash/Hives Verified 07/11/21 18:20 azithromycin Allergy Rash/Hives Verified 07/11/21 18:20 cephalexin Allergy Rash/Hives Verified 07/11/21 18:20 metronidazole [From Flagyl] Allergy Rash/Hives Verified 07/11/21 18:20 Penicillins Allergy Rash/Hives Verified 07/11/21 18:20 sulfamethoxazole Allergy Rash/Hives Verified 07/11/21 18:20 [From Bactrim] trimethoprim [From Bactrim] Allergy Rash/Hives Verified 07/11/21 18:20 alprazolam [From Xanax] AdvReac MAKES Verified 07/11/21 18:20 PARANOID dicyclomine [From Bentyl] AdvReac constipatio Verified 07/11/21 18:20 n Review of Systems ROS Statement: Those systems with pertinent positive or pertinent negative responses have been documented in the HPI. ROS Other: All systems not noted in ROS Statement are negative. Constitutional: Denies: fever Eyes: Denies: eye pain ENT: Denies: ear pain Respiratory: Denies: cough Cardiovascular: Denies: chest pain Endocrine: Denies: fatigue Gastrointestinal: Reports: as per HPI, abdominal pain, nausea Genitourinary: Denies: dysuria, hematuria Musculoskeletal: Denies: back pain Skin: Denies: rash Past Medical History Past Medical History: Blood Disorder, GERD/Reflux Additional Past Medical History / Comment(s): Endometriosis, polycystic ovarian syndrome. IRON DEFICIENCY ANEMIA. Stomach Ulcer. ovarian cyst History of Any Multi-Drug Resistant Organisms: None Reported Past Surgical History: Ablation, Section, Cholecystectomy, Hysterectomy, Tubal Ligation, Uterine Ablation Additional Past Surgical History / Comment(s): Laparoscopy X2, Section X3. Right ovary and right tube removed - 2019. cyst removed from chest. AUG 23 - ADHESION REMOVAL FROM PAST . Vaginal. pelvic biopsy 05/11. PCOS Past Anesthesia/Blood Transfusion Reactions: No Reported Reaction Past Psychological History: Anxiety, Depression Smoking Status: Never smoker Past Alcohol Use History: None Reported Past Drug Use History: None Reported - Past Family History Mother Family Medical History: Hyperlipidemia Additional Family Medical History / Comment(s): Depression and anxiety. General Exam Limitations: no limitations General appearance: alert, in no apparent distress Head exam: Present: normocephalic Eye exam: Present: normal appearance Neck exam: Present: normal inspection Respiratory exam: Present: normal lung sounds bilaterally Cardiovascular Exam: Present: regular rate, normal rhythm Expanded Peripheral pulses: 2+: Posterior Tibialis (R), Posterior Tibialis (L) GI/Abdominal exam: Present: soft, tenderness (Mild to moderate right lower quadrant tenderness), normal bowel sounds. Absent: distended, guarding, rebound, rigid, pulsatile mass Extremities exam: Present: normal inspection Back exam: Present: normal inspection. Absent: tenderness, CVA tenderness (R) Neurological exam: Present: alert Psychiatric exam: Present: normal affect, normal mood Skin exam: Present: normal color Course Vital Signs 07/11/21 16:55 Temperature 99.1 F Pulse Rate 92 Respiratory 19 Rate Blood Pressure 134/80 O2 Sat by Pulse 100 Oximetry Medical Decision Making - Medical Decision Making Patient reevaluated and resting comfortably in bed. Patient updated on results and need for follow-up. - Lab Data Result diagrams: 07/11/21 17:58 07/11/21 18:05 Lab Results 07/11/21 07/11/21 07/11/21 Range/Units 17:45 17:58 18:05 WBC 6.8 (3.8-10.6) k/uL RBC 4.16 (3.80-5.40) m/uL Hgb 13.0 (11.4-16.0) gm/dL Hct 38.6 (34.0-46.0) % MCV 92.8 (80.0-100.0) fL MCH 31.2 (25.0-35.0) pg MCHC 33.6 (31.0-37.0) g/dL RDW 12.8 (11.5-15.5) % Plt Count 242 (150-450) k/uL MPV 7.8 Neutrophils % 69 % Lymphocytes % 25 % Monocytes % 4 % Eosinophils % 0 % Basophils % 0 % Neutrophils # 4.6 (1.3-7.7) k/uL Lymphocytes # 1.7 (1.0-4.8) k/uL Monocytes # 0.3 (0-1.0) k/uL Eosinophils # 0.0 (0-0.7) k/uL Basophils # 0.0 (0-0.2) k/uL PT 9.8 (9.0-12.0) sec INR 0.9 (<1.2) APTT 25.2 (22.0-30.0) sec Sodium (137-145) mmol/L Potassium (3.5-5.1) mmol/L Chloride (98-107) mmol/L Carbon Dioxide (22-30) mmol/L Anion Gap mmol/L BUN (7-17) mg/dL Creatinine (0.52-1.04) mg/dL Est GFR (CKD-EPI)AfAm (>60 ml/min/1.73 sqM) Est GFR (CKD-EPI)NonAf (>60 ml/min/1.73 sqM) Glucose (74-99) mg/dL Calcium (8.4-10.2) mg/dL Total Bilirubin (0.2-1.3) mg/dL AST (14-36) U/L ALT (4-34) U/L Alkaline Phosphatase (38-126) U/L Total Protein (6.3-8.2) g/dL Albumin (3.5-5.0) g/dL Amylase (30-110) U/L Lipase (23-300) U/L Urine Color Light Yellow Urine Appearance Clear (Clear) Urine pH 6.5 (5.0-8.0) Ur Specific [place] 1.016 (1.001-1.035) Urine Protein Negative (Negative) Urine Glucose (UA) Negative (Negative) Urine Ketones Negative (Negative) Urine Blood Negative (Negative) Urine Nitrite Negative (Negative) Urine Bilirubin Negative (Negative) Urine Urobilinogen <2.0 (<2.0) mg/dL Ur Leukocyte Esterase Negative (Negative) Coronavirus (PCR) (Not Detectd) 07/11/21 07/11/21 Range/Units 18:05 18:31 WBC (3.8-10.6) k/uL RBC (3.80-5.40) m/uL Hgb (11.4-16.0) gm/dL Hct (34.0-46.0) % MCV (80.0-100.0) fL MCH (25.0-35.0) pg MCHC (31.0-37.0) g/dL RDW (11.5-15.5) % Plt Count (150-450) k/uL MPV Neutrophils % % Lymphocytes % % Monocytes % % Eosinophils % % Basophils % % Neutrophils # (1.3-7.7) k/uL Lymphocytes # (1.0-4.8) k/uL Monocytes # (0-1.0) k/uL Eosinophils # (0-0.7) k/uL Basophils # (0-0.2) k/uL PT (9.0-12.0) sec INR (<1.2) APTT (22.0-30.0) sec Sodium 137 (137-145) mmol/L Potassium 4.0 (3.5-5.1) mmol/L Chloride 101 (98-107) mmol/L Carbon Dioxide 25 (22-30) mmol/L Anion Gap 11 mmol/L BUN 12 (7-17) mg/dL Creatinine 0.76 (0.52-1.04) mg/dL Est GFR (CKD-EPI)AfAm >90 (>60 ml/min/1.73 sqM) Est GFR (CKD-EPI)NonAf >90 (>60 ml/min/1.73 sqM) Glucose 97 (74-99) mg/dL Calcium 9.9 (8.4-10.2) mg/dL Total Bilirubin 0.8 (0.2-1.3) mg/dL AST 21 (14-36) U/L ALT 17 (4-34) U/L Alkaline Phosphatase 95 (38-126) U/L Total Protein 7.8 (6.3-8.2) g/dL Albumin 4.6 (3.5-5.0) g/dL Amylase 67 (30-110) U/L Lipase 31 (23-300) U/L Urine Color Urine Appearance (Clear) Urine pH (5.0-8.0) Ur Specific [place] (1.001-1.035) Urine Protein (Negative) Urine Glucose (UA) (Negative) Urine Ketones (Negative) Urine Blood (Negative) Urine Nitrite (Negative) Urine Bilirubin (Negative) Urine Urobilinogen (<2.0) mg/dL Ur Leukocyte Esterase (Negative) Coronavirus (PCR) Not Detected (Not Detectd) - Radiology Data Radiology results: report reviewed (Abdominal CT reveals no acute abnormality) Disposition Clinical Impression: Abdominal pain Disposition: HOME SELF-CARE Condition: Stable Instructions (If sedation given, give patient instructions): Abdominal Pain (ED) Additional Instructions: Please follow-up with primary care physician in the next couple days for recheck. Please also follow-up with your FISH AND WILDLIFE TECHNICIAN. Return for uncontrolled vomiting, fevers, worsening change in symptoms or other concerns. Is patient prescribed a controlled substance at d/c from ED?: No Referrals: Kirt Noriega MD [Primary Care Provider] - 1-2 days Time of Disposition: 19:42
[2021-07-11 18:09] LABS: Basophils % (A) 0 %; Eosinophils % (A) 0 %; HCT 38.6 % (34.0-46.0); Lymphocytes # (A) 1.7 k/uL (1.0-4.8); Lymphocytes % (A) 25 %; MCH 31.2 pg (25.0-35.0); MCHC 33.6 g/dL (31.0-37.0); MCV 92.8 fL (80.0-100.0); Mean Platelet Volume 7.8; Monocytes # (A) 0.3 k/uL (0-1.0); Monocytes % (A) 4 %; Neutrophils # (A) 4.6 k/uL (1.3-7.7); Neutrophils % (A) 69 %; Platelet Count 242 k/uL (150-450); RBC 4.16 m/uL (3.80-5.40); RDW 12.8 % (11.5-15.5); WBC 6.8 k/uL (3.8-10.6)
[2021-07-11 18:21] LABS: ALT 17 U/L (4-34); AST 21 U/L (14-36); African American GFR (CKD) >90 (>60 ml/min/1.73 sqM); Albumin 4.6 g/dL (3.5-5.0); Alkaline Phosphatase 95 U/L (38-126); Amylase 67 U/L (30-110); Anion Gap 11 mmol/L; Blood Urea Nitrogen 12 mg/dL (7-17); Calcium 9.9 mg/dL (8.4-10.2); Carbon Dioxide 25 mmol/L (22-30); Chloride 101 mmol/L (98-107); Glucose 97 mg/dL (74-99); Lipase 31 U/L (23-300); Non-African American GFR(CKD) >90 (>60 ml/min/1.73 sqM); Sodium 137 mmol/L (137-145); Total Bilirubin 0.8 mg/dL (0.2-1.3); Total Protein 7.8 g/dL (6.3-8.2)
[2021-07-11 18:29] LABS: INR 0.9 (<1.2); Partial Thromboplastin Time 25.2 sec (22.0-30.0); Prothrombin Time 9.8 sec (9.0-12.0)
[2021-07-11 18:57] LABS: Appearance,Urine Clear (Clear); Bilirubin,Urine Negative (Negative); Blood,Urine Negative (Negative); Color,Urine Light Yellow; Glucose,Urine (UA) Negative (Negative); Ketones,Urine Negative (Negative); Leukocyte Esterase,Urine Negative (Negative); Nitrite,Urine Negative (Negative); PH, Urine 6.5 (5.0-8.0); Protein,Urine Negative (Negative); Specific Gravity,Urine 1.016 (1.001-1.035); Urobilinogen,Urine <2.0 mg/dL (<2.0)
--- NOTE | 2021-07-11 19:33 | CT ---
EXAMINATION TYPE: CT abdomen pelvis w con DATE OF EXAM: 07/11/2021 COMPARISON: 07/06/2021 HISTORY: abdominal pain, nausea CT DLP: 1122.7 mGycm Automated exposure control for dose reduction was used. CONTRAST: Performed with IV Contrast, patient injected with 100 mL of Isovue 300. Images obtained from the diaphragm to the floor the pelvis with IV contrast. Lung bases are clear. There is no pleural effusion. Heart size is normal. There is small hiatal herni a. Liver spleen pancreas appear intact. The bile ducts are not dilated. There are clips from cholecystec galdino. Stomach is intact. There is no adrenal mass. Kidneys show satisfactory contrast opacification. There is no hydronephrosi s. There is no retroperitoneal adenopathy. Ureters are not dilated. Bladder distends smoothly. There is no inguinal hernia. There is no free fluid in the pelvis. There is some mild stranding around the periumbilical fat that could relate to previous surgery. There is no mesenteric edema. There is no ascites or free air. There is no bowel obstruction. Appendi x appears normal. There are surgical clip in the pelvis in the cul-de-sac. The lumbar vertebra have normal alignment. Posterior elements are intact. There is no compression fra cture. Bony pelvis is intact. The hip joints are intact. IMPRESSION: No acute abnormality of the abdomen pelvis. There is clearing of the small amount of free fluid in th e cul-de-sac compared to old exam.
[2021-07-11] MEDS ORDERED: KETOROLAC 15 MG/ML 1 ML VIAL IVP STA (19:40)
[2021-07-11 20:22] VITALS: PULSE 85
== END 2021-07-11 20:23 | disposition home or self-care (01) ==
LOC: EC 14:50
DX: R10.31 Right lower quadrant pain (principal); K21.9 Gastro-esophageal reflux disease without esophagitis; Z20.822 Contact with and (suspected) exposure to COVID-19; Z90.49 Acquired absence of other specified parts of digestive tract; Z91.09 Other allergy status, other than to drugs and biological substances; Z91.048 Other nonmedicinal substance allergy status; Z88.1 Allergy status to other antibiotic agents; Z88.0 Allergy status to penicillin; Z88.2 Allergy status to sulfonamides; Z88.8 Allergy status to other drugs, medicaments and biological substances; Z79.899 Other long term (current) drug therapy
CPT/HCPCS: 99284; 96374; 96375; 96376; 96361; 36415; 80053; 82150; 83690; 85025; 85610; 85730; 81003; 87635; 74177; J2405; J1170; J1885; Q9967

== ENCOUNTER 2021-07-17 18:36 | Emergency (ER) | payer OTHER ==
[2021-07-17 20:35] VITALS: TEMP 98
[2021-07-17] MEDS ORDERED: SODIUM CHLORIDE 0.9% 1,000 ML IV STA (23:12)
[2021-07-17] MEDS ORDERED: KETOROLAC 15 MG/ML 1 ML VIAL IVP STA (23:12)
[2021-07-17] MEDS ORDERED: ONDANSETRON 4 MG/2 ML VIAL IVP STA (23:37)
--- NOTE | 2021-07-17 23:45 | XR ---
EXAMINATION TYPE: XR KUB DATE OF EXAM: 07/17/2021 COMPARISON: 09/16/2019 HISTORY: Abdominal pain TECHNIQUE: 2 views upright FINDINGS: Bowel gas pattern is normal. There is no sign of intestinal obstruction or pneumoperitoneum . Fecal pattern is normal. There are clips apparently from tubal ligation. There are clips from ezequiel cystectomy. Lung bases are clear. There are no calcifications over the kidneys. IMPRESSION: Nonacute abdomen. No adverse change.
[2021-07-18 00:01] LABS: Basophils % (A) 0 %; Eosinophils % (A) 0 %; HCT 38.4 % (34.0-46.0); HGB 12.6 gm/dL (11.4-16.0); Lymphocytes % (A) 27 %; MCH 30.9 pg (25.0-35.0); MCHC 32.8 g/dL (31.0-37.0); MCV 94.3 fL (80.0-100.0); Mean Platelet Volume 7.8; Monocytes # (A) 0.3 k/uL (0-1.0); Monocytes % (A) 4 %; Neutrophils % (A) 67 %; Platelet Count 238 k/uL (150-450); RBC 4.08 m/uL (3.80-5.40); RDW 12.6 % (11.5-15.5); WBC 7.5 k/uL (3.8-10.6)
[2021-07-18 00:10] LABS: ALT 14 U/L (4-34); AST 20 U/L (14-36); African American GFR (CKD) >90 (>60 ml/min/1.73 sqM); Albumin 4.7 g/dL (3.5-5.0); Alkaline Phosphatase 98 U/L (38-126); Amylase 63 U/L (30-110); Anion Gap 15 mmol/L; Blood Urea Nitrogen 15 mg/dL (7-17); Calcium 9.9 mg/dL (8.4-10.2); Carbon Dioxide 20 mmol/L (22-30); Chloride 102 mmol/L (98-107); Glucose 97 mg/dL (74-99); Lipase 54 U/L (23-300); Non-African American GFR(CKD) >90 (>60 ml/min/1.73 sqM); Potassium 3.7 mmol/L (3.5-5.1); Sodium 137 mmol/L (137-145); Total Bilirubin 0.8 mg/dL (0.2-1.3); Total Protein 7.9 g/dL (6.3-8.2)
[2021-07-18 00:25] LABS: Appearance,Urine Cloudy (Clear); Bacteria,Urine Occasional /hpf; Bilirubin,Urine Negative (Negative); Blood,Urine Negative (Negative); Color,Urine Yellow; Glucose,Urine (UA) Negative (Negative); Hyaline Casts,Urine 1 /lpf (0-2); Ketones,Urine Negative (Negative); Leukocyte Esterase,Urine Negative (Negative); Mucus,Urine Rare /hpf; Nitrite,Urine Negative (Negative); Protein,Urine Negative (Negative); RBC,Urine 1 /hpf (0-5); Specific Gravity,Urine 1.022 (1.001-1.035); Squamous Epithelial Cell,Urine 1 /hpf (0-4); Urobilinogen,Urine <2.0 mg/dL (<2.0); WBC,Urine 3 /hpf (0-5)
[2021-07-18 00:39] VITALS: BP 111/66; PULSE 94; RESP 16
--- NOTE | 2021-07-18 00:46 | CT ---
EXAMINATION TYPE: CT abdomen pelvis w con DATE OF EXAM: 07/18/2021 COMPARISON: 07/11/2021 HISTORY: LLQ Abd Pain CT DLP: 1172.60 mGycm Automated exposure control for dose reduction was used. CONTRAST: Performed with IV Contrast, patient injected with 100 mL of Isovue 300. Images obtained from the diaphragm to the floor of the pelvis with IV contrast. There is a hiatal hernia. Stomach size is normal. Liver spleen and pancreas appear intact. There are clips from cholecystectomy. The bile ducts are not dilated. There is no adrenal mass. Kidneys show sa tisfactory contrast opacification. There is no hydronephrosis. Delayed images show normal renal excre tion. There is no retroperitoneal adenopathy. There is probably a tiny amount of free fluid in the pelvis. There is probably partial hysterectomy. There is no evidence of a pelvic mass. There is some stranding at the umbilicus that could relate to umbilical hernia surgery without change . There is no mesenteric edema. There is no ascites or free air. There is no evidence of a bowel obstru ction. Appendix is posterior and appears normal. The lumbar vertebrae have normal alignment. Disc spa betsy are fairly normal. There is no compression fracture. Bony pelvis is intact. IMPRESSION: No evidence of colitis. I do not see a cause for left-sided pain. Small amount of low density free fluid in the pelvis increased compared to recent exam. Normal christina guillen.
--- NOTE | 2021-07-18 00:56 | ED ---
Abdominal Pain HPI - General Chief Complaint: Abdominal Pain Stated Complaint: revisit - abd pain Time Seen by Provider: 07/17/21 23:09 Source: patient, RN notes reviewed Mode of arrival: ambulatory Limitations: no limitations - History of Present Illness Initial Comments: 31-year-old female presenting to the emergency department complaining of left lower quadrant abdominal pain. She notes is been going on for the past. She notes it is pretty significant. She notes that she should be seen for right lower quadrant pain and only found small free fluid in the pelvis cul-de-sac. Patient denied any other symptoms or complaints minus some mild diarrhea. She denied any change in appetite. She was otherwise well-appearing. She denied chest pain shortness of breath headache nausea vomiting constipation fever fatigue chills. - Related Data Home Medications Medication Instructions Recorded Confirmed FLUoxetine HCL [PROzac] 10 mg PO HS 05/11/21 07/11/21 Omeprazole [PriLOSEC] 40 mg PO HS 05/11/21 07/11/21 Previous Rx's Medication Instructions Recorded Ibuprofen [Motrin] 600 mg PO Q8HR PRN #30 tab 07/06/21 Allergies Allergy/AdvReac Type Severity Reaction Status Date / Time adhesive tape Allergy Rash/Hives Verified 07/17/21 20:35 aloe vera Allergy Rash/Hives Verified 07/17/21 20:35 azithromycin Allergy Rash/Hives Verified 07/17/21 20:35 cephalexin Allergy Rash/Hives Verified 07/17/21 20:35 metronidazole [From Flagyl] Allergy Rash/Hives Verified 07/17/21 20:35 Penicillins Allergy Rash/Hives Verified 07/17/21 20:35 sulfamethoxazole Allergy Rash/Hives Verified 07/17/21 20:35 [From Bactrim] trimethoprim [From Bactrim] Allergy Rash/Hives Verified 07/17/21 20:35 alprazolam [From Xanax] AdvReac MAKES Verified 07/17/21 20:35 PARANOID dicyclomine [From Bentyl] AdvReac constipatio Verified 07/17/21 20:35 n Review of Systems ROS Statement: Those systems with pertinent positive or pertinent negative responses have been documented in the HPI. ROS Other: All systems not noted in ROS Statement are negative. Past Medical History Past Medical History: Blood Disorder, GERD/Reflux Additional Past Medical History / Comment(s): Endometriosis, polycystic ovarian syndrome. IRON DEFICIENCY ANEMIA. Stomach Ulcer. ovarian cyst History of Any Multi-Drug Resistant Organisms: None Reported Past Surgical History: Ablation, Section, Cholecystectomy, Hysterectomy, Tubal Ligation, Uterine Ablation Additional Past Surgical History / Comment(s): Laparoscopy X2, Section X3. Right ovary and right tube removed - 2019. cyst removed from chest. AUG 2020 - ADHESION REMOVAL FROM PAST . Vaginal. pelvic biopsy 05/11. PCOS Past Anesthesia/Blood Transfusion Reactions: No Reported Reaction Past Psychological History: Anxiety, Depression Smoking Status: Never smoker Past Alcohol Use History: None Reported Past Drug Use History: None Reported - Past Family History Mother Family Medical History: Hyperlipidemia Additional Family Medical History / Comment(s): Depression and anxiety. General Exam Limitations: no limitations General appearance: alert, in no apparent distress, obese Head exam: Present: atraumatic, normocephalic, normal inspection Eye exam: Present: normal appearance, PERRL, EOMI. Absent: scleral icterus, conjunctival injection, periorbital swelling ENT exam: Present: normal exam, mucous membranes moist Neck exam: Present: normal inspection. Absent: tenderness, meningismus, lymphadenopathy Respiratory exam: Present: normal lung sounds bilaterally. Absent: respiratory distress, wheezes, rales, rhonchi, stridor Cardiovascular Exam: Present: regular rate, normal rhythm, normal heart sounds. Absent: systolic murmur, diastolic murmur, rubs, gallop, clicks GI/Abdominal exam: Present: soft, tenderness (Minimal the left lower quadrant), normal bowel sounds. Absent: distended, guarding, rebound, rigid Extremities exam: Present: normal inspection, full ROM, normal capillary refill. Absent: tenderness, pedal edema, joint swelling, calf tenderness Neurological exam: Present: alert, oriented X3 Psychiatric exam: Present: normal affect, normal mood Skin exam: Present: warm, dry, intact, normal color. Absent: rash Course Vital Signs 07/17/21 07/18/21 20:33 00:37 Temperature 98 F Pulse Rate 85 94 Respiratory 18 16 Rate Blood Pressure 122/81 111/66 O2 Sat by Pulse 100 97 Oximetry Medical Decision Making - Medical Decision Making 31-year-old female complaining of left lower quadrant abdominal pain. Labs, 15 mg of Toradol, 4 mg Zofran, 1 L normal saline, CT of the abdomen and pelvis ordered. Labs are unremarkable and within normal limits. Computed tomography scan negative for any acute process just shows mild increase in free fluid in the cul-de-sac. Results discussed with patient. She was informed that she is a follow-up with her primary care. Case discussed with Dr. Maciel. - Lab Data Result diagrams: 07/17/21 23:45 07/17/21 23:45 Lab Results 07/17/21 07/17/21 07/17/21 Range/Units 23:45 23:45 23:45 WBC 7.5 (3.8-10.6) k/uL RBC 4.08 (3.80-5.40) m/uL Hgb 12.6 (11.4-16.0) gm/dL Hct 38.4 (34.0-46.0) % MCV 94.3 (80.0-100.0) fL MCH 30.9 (25.0-35.0) pg MCHC 32.8 (31.0-37.0) g/dL RDW 12.6 (11.5-15.5) % Plt Count 238 (150-450) k/uL MPV 7.8 Neutrophils % 67 % Lymphocytes % 27 % Monocytes % 4 % Eosinophils % 0 % Basophils % 0 % Neutrophils # 5.0 (1.3-7.7) k/uL Lymphocytes # 2.0 (1.0-4.8) k/uL Monocytes # 0.3 (0-1.0) k/uL Eosinophils # 0.0 (0-0.7) k/uL Basophils # 0.0 (0-0.2) k/uL Sodium (137-145) mmol/L Potassium (3.5-5.1) mmol/L Chloride (98-107) mmol/L Carbon Dioxide (22-30) mmol/L Anion Gap mmol/L BUN (7-17) mg/dL Creatinine (0.52-1.04) mg/dL Est GFR (CKD-EPI)AfAm (>60 ml/min/1.73 sqM) Est GFR (CKD-EPI)NonAf (>60 ml/min/1.73 sqM) Glucose (74-99) mg/dL Calcium (8.4-10.2) mg/dL Total Bilirubin (0.2-1.3) mg/dL AST (14-36) U/L ALT (4-34) U/L Alkaline Phosphatase (38-126) U/L Total Protein (6.3-8.2) g/dL Albumin (3.5-5.0) g/dL Amylase (30-110) U/L Lipase (23-300) U/L Urine Color Yellow Urine Appearance Cloudy H (Clear) Urine pH 6.0 (5.0-8.0) Ur Specific [place] 1.022 (1.001-1.035) Urine Protein Negative (Negative) Urine Glucose (UA) Negative (Negative) Urine Ketones Negative (Negative) Urine Blood Negative (Negative) Urine Nitrite Negative (Negative) Urine Bilirubin Negative (Negative) Urine Urobilinogen <2.0 (<2.0) mg/dL Ur Leukocyte Esterase Negative (Negative) Urine RBC 1 (0-5) /hpf Urine WBC 3 (0-5) /hpf Ur Squamous Epith Cells 1 (0-4) /hpf Urine Bacteria Occasional H (None) /hpf Hyaline Casts 1 (0-2) /lpf Urine Mucus Rare H (None) /hpf Urine HCG, Qual Not Detected (Not Detectd) 07/17/21 Range/Units 23:45 WBC (3.8-10.6) k/uL RBC (3.80-5.40) m/uL Hgb (11.4-16.0) gm/dL Hct (34.0-46.0) % MCV (80.0-100.0) fL MCH (25.0-35.0) pg MCHC (31.0-37.0) g/dL RDW (11.5-15.5) % Plt Count (150-450) k/uL MPV Neutrophils % % Lymphocytes % % Monocytes % % Eosinophils % % Basophils % % Neutrophils # (1.3-7.7) k/uL Lymphocytes # (1.0-4.8) k/uL Monocytes # (0-1.0) k/uL Eosinophils # (0-0.7) k/uL Basophils # (0-0.2) k/uL Sodium 137 (137-145) mmol/L Potassium 3.7 (3.5-5.1) mmol/L Chloride 102 (98-107) mmol/L Carbon Dioxide 20 L (22-30) mmol/L Anion Gap 15 mmol/L BUN 15 (7-17) mg/dL Creatinine 0.77 (0.52-1.04) mg/dL Est GFR (CKD-EPI)AfAm >90 (>60 ml/min/1.73 sqM) Est GFR (CKD-EPI)NonAf >90 (>60 ml/min/1.73 sqM) Glucose 97 (74-99) mg/dL Calcium 9.9 (8.4-10.2) mg/dL Total Bilirubin 0.8 (0.2-1.3) mg/dL AST 20 (14-36) U/L ALT 14 (4-34) U/L Alkaline Phosphatase 98 (38-126) U/L Total Protein 7.9 (6.3-8.2) g/dL Albumin 4.7 (3.5-5.0) g/dL Amylase 63 (30-110) U/L Lipase 54 (23-300) U/L Urine Color Urine Appearance (Clear) Urine pH (5.0-8.0) Ur Specific [place] (1.001-1.035) Urine Protein (Negative) Urine Glucose (UA) (Negative) Urine Ketones (Negative) Urine Blood (Negative) Urine Nitrite (Negative) Urine Bilirubin (Negative) Urine Urobilinogen (<2.0) mg/dL Ur Leukocyte Esterase (Negative) Urine RBC (0-5) /hpf Urine WBC (0-5) /hpf Ur Squamous Epith Cells (0-4) /hpf Urine Bacteria (None) /hpf Hyaline Casts (0-2) /lpf Urine Mucus (None) /hpf Urine HCG, Qual (Not Detectd) - Radiology Data Radiology results: report reviewed, image reviewed CT of the abdomen and pelvis: No evidence of colitis and do not see cause for left-sided pain. Small amount of fluid in the pelvis increased compared to recent exam. Normal appendix. Disposition Clinical Impression: Ovarian cyst, Abdominal pain Disposition: HOME SELF-CARE Condition: Stable Instructions (If sedation given, give patient instructions): Abdominal Pain (ED) Additional Instructions: Please return to the Emergency Department if symptoms worsen or any other concerns. Follow-up with primary care in 1-2 days. Take Tylenol Motrin alternating of 3 hours as needed for pain control. Is patient prescribed a controlled substance at d/c from ED?: No Referrals: Kirt Noriega MD [Primary Care Provider] - 1-2 days Time of Disposition: 00:56
[2021-07-18] MEDS ORDERED: Acetaminophen-Codeine 300-30mg TAB PO STA (00:59)
== END 2021-07-18 01:11 | disposition home or self-care (01) ==
LOC: EC 18:36
DX: N83.202 Unspecified ovarian cyst, left side (principal); K21.9 Gastro-esophageal reflux disease without esophagitis; Z91.09 Other allergy status, other than to drugs and biological substances; Z91.048 Other nonmedicinal substance allergy status; Z88.1 Allergy status to other antibiotic agents; Z88.8 Allergy status to other drugs, medicaments and biological substances; Z88.0 Allergy status to penicillin; Z88.2 Allergy status to sulfonamides; Z79.899 Other long term (current) drug therapy
CPT/HCPCS: 36415; 80053; 82150; 83690; 85025; 81001; 81025; 74018; 74177; 99284; 96374; 96375; 96361; J2405; J1885; Q9967

== ENCOUNTER 2021-07-31 17:55 | Emergency (ER) | payer OTHER ==
[2021-07-31 20:01] VITALS: TEMP 98.2
--- NOTE | 2021-07-31 20:04 | ED ---
Abdominal Pain HPI - General Chief Complaint: Abdominal Pain Stated Complaint: Rt Sided Abd.Pain Time Seen by Provider: 07/31/21 20:02 Source: patient, RN notes reviewed Mode of arrival: ambulatory Limitations: no limitations - History of Present Illness Initial Comments: 31-year-old female presents to the emergency department complaining of abdominal pain. Patient is status post cholecystectomy and hysterectomy with right-sided oophorectomy. Patient states that this pain is been in the right flank area and has been there for 1 week. She denies any chest pain or shortness of breath. Pain is sharp, located in the right flank radiating from the right abdomen to the right lower to mid back. No headache, no fever or chills, no changes in vision or hearing, no sore throat or difficulty with speech, no neck pain, no chest pain or shortness of breath, no nausea or vomiting, no changes in urination or bowel movements, no numbness or tingling, no extremity pain, no skin rashes or lesions. - Related Data Home Medications Medication Instructions Recorded Confirmed FLUoxetine HCL [PROzac] 10 mg PO HS 05/11/21 07/11/21 Omeprazole [PriLOSEC] 40 mg PO HS 05/11/21 07/11/21 Previous Rx's Medication Instructions Recorded Ibuprofen [Motrin] 600 mg PO Q8HR PRN #30 tab 07/06/21 Naproxen [Naprosyn] 375 mg PO Q12H PRN #20 tablet 08/01/21 Allergies Allergy/AdvReac Type Severity Reaction Status Date / Time adhesive tape Allergy Rash/Hives Verified 07/31/21 19:56 aloe vera Allergy Rash/Hives Verified 07/31/21 19:56 azithromycin Allergy Rash/Hives Verified 07/31/21 19:56 cephalexin Allergy Rash/Hives Verified 07/31/21 19:56 metronidazole [From Flagyl] Allergy Rash/Hives Verified 07/31/21 19:56 Penicillins Allergy Rash/Hives Verified 07/31/21 19:56 sulfamethoxazole Allergy Rash/Hives Verified 07/31/21 19:56 [From Bactrim] trimethoprim [From Bactrim] Allergy Rash/Hives Verified 07/31/21 19:56 alprazolam [From Xanax] AdvReac MAKES Verified 07/31/21 19:56 PARANOID dicyclomine [From Bentyl] AdvReac constipatio Verified 07/31/21 19:56 n Review of Systems ROS Statement: Those systems with pertinent positive or pertinent negative responses have been documented in the HPI. ROS Other: All systems not noted in ROS Statement are negative. Past Medical History Past Medical History: Blood Disorder, GERD/Reflux Additional Past Medical History / Comment(s): Endometriosis, polycystic ovarian syndrome. IRON DEFICIENCY ANEMIA. Stomach Ulcer. ovarian cyst History of Any Multi-Drug Resistant Organisms: None Reported Past Surgical History: Ablation, Section, Cholecystectomy, Hysterectomy, Tubal Ligation, Uterine Ablation Additional Past Surgical History / Comment(s): Laparoscopy X2, Section X3. Right ovary and right tube removed - 2019. cyst removed from chest. AUG 2020 - ADHESION REMOVAL FROM PAST . Vaginal. pelvic biopsy 05/11. PCOS Past Anesthesia/Blood Transfusion Reactions: No Reported Reaction Past Psychological History: Anxiety, Depression Smoking Status: Never smoker Past Alcohol Use History: None Reported Past Drug Use History: None Reported - Past Family History Mother Family Medical History: Hyperlipidemia Additional Family Medical History / Comment(s): Depression and anxiety. General Exam Limitations: no limitations General appearance: alert, in no apparent distress Head exam: Present: atraumatic, normocephalic, normal inspection Eye exam: Present: normal appearance, PERRL, EOMI. Absent: scleral icterus, conjunctival injection, periorbital swelling ENT exam: Present: normal exam, mucous membranes moist Neck exam: Present: normal inspection. Absent: tenderness, meningismus, lymphadenopathy Respiratory exam: Present: normal lung sounds bilaterally. Absent: respiratory distress, wheezes, rales, rhonchi, stridor Cardiovascular Exam: Present: regular rate, normal rhythm, normal heart sounds. Absent: systolic murmur, diastolic murmur, rubs, gallop, clicks GI/Abdominal exam: Present: soft, tenderness, normal bowel sounds, other (right- sided abdominal tenderness with right CVA tenderness). Absent: distended, guarding, rebound, rigid Extremities exam: Present: normal inspection, full ROM, normal capillary refill. Absent: tenderness, pedal edema, joint swelling, calf tenderness Back exam: Present: normal inspection Neurological exam: Present: alert, oriented X3, CN II-XII intact Psychiatric exam: Present: normal affect, normal mood Skin exam: Present: warm, dry, intact, normal color. Absent: rash Course Vital Signs 07/31/21 19:56 Temperature 98.2 F Pulse Rate 81 Respiratory 20 Rate Blood Pressure 137/82 O2 Sat by Pulse 100 Oximetry - Reevaluation(s) Reevaluation #1: 08/01/21 02:12 Patient reevaluated and resting comfortably. In no distress. Hemodynamically stable. Medical Decision Making - Medical Decision Making Patient's workup appears essentially negative for any diagnostic findings to explain the patient's pain. However the patient does have a history of ureteral stones as well as a history of endometriosis. Certainly patient could have pain related to this. Patient's laboratory investigations were normal. Patient's computed tomography scan did not show any significant findings other than a small amount of free fluid in the pelvis. Patient is status post hysterectomy with right oophorectomy. I discussed all findings with the patient. All quest ions were answered. We'll treat the patient conservatively with anti- inflammatory medication. Patient is on omeprazole at home. I told her to continue this. Patient given follow-up with primary care physician. Follow-up with your regular physician as directed. Return to the ER immediately if any symptoms worsen, new symptoms arise, or any other problems develop. - Lab Data Result diagrams: 07/31/21 22:05 07/31/21 22:05 Lab Results 07/31/21 07/31/21 07/31/21 Range/Units 20:09 20:09 22:05 WBC 8.9 (3.8-10.6) k/uL RBC 4.01 (3.80-5.40) m/uL Hgb 12.3 (11.4-16.0) gm/dL Hct 37.3 (34.0-46.0) % MCV 93.0 (80.0-100.0) fL MCH 30.7 (25.0-35.0) pg MCHC 33.0 (31.0-37.0) g/dL RDW 12.5 (11.5-15.5) % Plt Count 225 (150-450) k/uL MPV 8.1 Neutrophils % 65 % Lymphocytes % 28 % Monocytes % 5 % Eosinophils % 0 % Basophils % 0 % Neutrophils # 5.8 (1.3-7.7) k/uL Lymphocytes # 2.5 (1.0-4.8) k/uL Monocytes # 0.4 (0-1.0) k/uL Eosinophils # 0.0 (0-0.7) k/uL Basophils # 0.0 (0-0.2) k/uL Sodium (137-145) mmol/L Potassium (3.5-5.1) mmol/L Chloride (98-107) mmol/L Carbon Dioxide (22-30) mmol/L Anion Gap mmol/L BUN (7-17) mg/dL Creatinine (0.52-1.04) mg/dL Est GFR (CKD-EPI)AfAm (>60 ml/min/1.73 sqM) Est GFR (CKD-EPI)NonAf (>60 ml/min/1.73 sqM) Glucose (74-99) mg/dL Calcium (8.4-10.2) mg/dL Total Bilirubin (0.2-1.3) mg/dL AST (14-36) U/L ALT (4-34) U/L Alkaline Phosphatase (38-126) U/L Total Protein (6.3-8.2) g/dL Albumin (3.5-5.0) g/dL Lipase (23-300) U/L Urine Color Colorless Urine Appearance Clear (Clear) Urine pH 7.0 (5.0-8.0) Ur Specific [place] 1.006 (1.001-1.035) Urine Protein Negative (Negative) Urine Glucose (UA) Negative (Negative) Urine Ketones Negative (Negative) Urine Blood Negative (Negative) Urine Nitrite Negative (Negative) Urine Bilirubin Negative (Negative) Urine Urobilinogen <2.0 (<2.0) mg/dL Ur Leukocyte Esterase Negative (Negative) Urine HCG, Qual Not Detected (Not Detectd) 07/31/21 Range/Units 22:05 WBC (3.8-10.6) k/uL RBC (3.80-5.40) m/uL Hgb (11.4-16.0) gm/dL Hct (34.0-46.0) % MCV (80.0-100.0) fL MCH (25.0-35.0) pg MCHC (31.0-37.0) g/dL RDW (11.5-15.5) % Plt Count (150-450) k/uL MPV Neutrophils % % Lymphocytes % % Monocytes % % Eosinophils % % Basophils % % Neutrophils # (1.3-7.7) k/uL Lymphocytes # (1.0-4.8) k/uL Monocytes # (0-1.0) k/uL Eosinophils # (0-0.7) k/uL Basophils # (0-0.2) k/uL Sodium 138 (137-145) mmol/L Potassium 4.2 (3.5-5.1) mmol/L Chloride 101 (98-107) mmol/L Carbon Dioxide 27 (22-30) mmol/L Anion Gap 10 mmol/L BUN 15 (7-17) mg/dL Creatinine 0.75 (0.52-1.04) mg/dL Est GFR (CKD-EPI)AfAm >90 (>60 ml/min/1.73 sqM) Est GFR (CKD-EPI)NonAf >90 (>60 ml/min/1.73 sqM) Glucose 97 (74-99) mg/dL Calcium 10.1 (8.4-10.2) mg/dL Total Bilirubin 0.8 (0.2-1.3) mg/dL AST 28 (14-36) U/L ALT 24 (4-34) U/L Alkaline Phosphatase 98 (38-126) U/L Total Protein 7.8 (6.3-8.2) g/dL Albumin 4.6 (3.5-5.0) g/dL Lipase 33 (23-300) U/L Urine Color Urine Appearance (Clear) Urine pH (5.0-8.0) Ur Specific [place] (1.001-1.035) Urine Protein (Negative) Urine Glucose (UA) (Negative) Urine Ketones (Negative) Urine Blood (Negative) Urine Nitrite (Negative) Urine Bilirubin (Negative) Urine Urobilinogen (<2.0) mg/dL Ur Leukocyte Esterase (Negative) Urine HCG, Qual (Not Detectd) Disposition Clinical Impression: Acute right flank pain Disposition: HOME SELF-CARE Condition: Stable Instructions (If sedation given, give patient instructions): Flank Pain (ED), Ovarian Cyst (ED) Additional Instructions: Follow-up with your regular physician as directed. Return to the ER immediately if any symptoms worsen, new symptoms arise, or any other problems develop. Is patient prescribed a controlled substance at d/c from ED?: No Referrals: Taylor,Ray, MD [STAFF PHYSICIAN] - 1-2 days Time of Disposition: 02:04
[2021-07-31 20:29] LABS: Appearance,Urine Clear (Clear); Bilirubin,Urine Negative (Negative); Blood,Urine Negative (Negative); Color,Urine Colorless; Glucose,Urine (UA) Negative (Negative); Ketones,Urine Negative (Negative); Leukocyte Esterase,Urine Negative (Negative); Nitrite,Urine Negative (Negative); Protein,Urine Negative (Negative); Specific Gravity,Urine 1.006 (1.001-1.035); Urobilinogen,Urine <2.0 mg/dL (<2.0)
[2021-07-31 22:13] LABS: Basophils % (A) 0 %; Eosinophils % (A) 0 %; HCT 37.3 % (34.0-46.0); HGB 12.3 gm/dL (11.4-16.0); Lymphocytes # (A) 2.5 k/uL (1.0-4.8); Lymphocytes % (A) 28 %; MCH 30.7 pg (25.0-35.0); Mean Platelet Volume 8.1; Monocytes # (A) 0.4 k/uL (0-1.0); Monocytes % (A) 5 %; Neutrophils # (A) 5.8 k/uL (1.3-7.7); Neutrophils % (A) 65 %; Platelet Count 225 k/uL (150-450); RBC 4.01 m/uL (3.80-5.40); RDW 12.5 % (11.5-15.5); WBC 8.9 k/uL (3.8-10.6)
[2021-07-31 22:24] LABS: ALT 24 U/L (4-34); AST 28 U/L (14-36); African American GFR (CKD) >90 (>60 ml/min/1.73 sqM); Albumin 4.6 g/dL (3.5-5.0); Alkaline Phosphatase 98 U/L (38-126); Anion Gap 10 mmol/L; Blood Urea Nitrogen 15 mg/dL (7-17); Calcium 10.1 mg/dL (8.4-10.2); Carbon Dioxide 27 mmol/L (22-30); Chloride 101 mmol/L (98-107); Glucose 97 mg/dL (74-99); Lipase 33 U/L (23-300); Non-African American GFR(CKD) >90 (>60 ml/min/1.73 sqM); Potassium 4.2 mmol/L (3.5-5.1); Sodium 138 mmol/L (137-145); Total Bilirubin 0.8 mg/dL (0.2-1.3); Total Protein 7.8 g/dL (6.3-8.2)
[2021-08-01] MEDS ORDERED: HYDROcodone/APAP 5-325MG 1 EACH TAB PO STA ×2 (00:53→02:39)
[2021-08-01] MEDS ORDERED: ONDANSETRON 4 MG TAB PO STA (01:24)
--- NOTE | 2021-08-01 01:48 | CT ---
EXAMINATION TYPE: CT abdomen pelvis wo con DATE OF EXAM: 08/01/2021 COMPARISON: 07/18/2021 HISTORY: right flank pain CT DLP: 776 mGycm Automated exposure control for dose reduction was used. Images obtained without contrast from the diaphragm to the floor the pelvis. Lung bases are clear. There is no pleural effusion. Heart size is normal. There is no pericardial eff usion. There is mild hiatal hernia. Liver spleen pancreas appear intact. There are clips from cholecy stectomy. The bile ducts are not dilated. Stomach is intact. There is no adrenal mass. Kidneys have normal size. There is no hydronephrosis. Ureters are not dilat ed. There is no retroperitoneal adenopathy. Bladder distends smoothly. There is no inguinal hernia. T here is no free fluid in the pelvis. Appendix is posterior and appears normal. There is no evidence o f a pelvic mass. There is surgical clip in the cul-de-sac. Uterus is small. Lumbar vertebrae have normal spacing and alignment. There is no compression fracture . Bony pelvis is intact. The hip joints are intact. There is minimal fat stranding at the umbilicus t hat could relate to previous surgery. There is no mesenteric edema. There is no ascites or free air. There is no bowel obstruction. IMPRESSION: Normal appendix. No acute abnormality of the abdomen and pelvis. There is clearing of the small amoun t of free fluid in the cul-de-sac compared to old exam.
[2021-08-01 02:34] VITALS: BP 161/70; PULSE 70; RESP 18
== END 2021-08-01 02:50 | disposition home or self-care (01) ==
LOC: EC 17:55
DX: R10.9 Unspecified abdominal pain (principal); K21.9 Gastro-esophageal reflux disease without esophagitis; Z91.09 Other allergy status, other than to drugs and biological substances; Z91.048 Other nonmedicinal substance allergy status; Z88.1 Allergy status to other antibiotic agents; Z88.8 Allergy status to other drugs, medicaments and biological substances; Z88.0 Allergy status to penicillin; Z90.49 Acquired absence of other specified parts of digestive tract; Z87.442 Personal history of urinary calculi; Z88.2 Allergy status to sulfonamides; Z79.899 Other long term (current) drug therapy
CPT/HCPCS: 36415; 74176; 80053; 81003; 81025; 83690; 85025; 99284

== ENCOUNTER 2021-08-09 15:23 | Emergency (ER) | payer OTHER ==
[2021-08-09 16:02] VITALS: RESP 20; TEMP 97.3
--- NOTE | 2021-08-09 17:10 | US ---
EXAMINATION TYPE: US transvaginal DATE OF EXAM: 08/09/2021 COMPARISON: US 2020 CLINICAL HISTORY: pain, left. Left pelvic pain x 3 days, history of hysterectomy and right oophorecto my 3 months ago TECHNIQUE: Transvaginal ER exam Date of LMP: 2020 EXAM MEASUREMENTS: Left Ovary: 3.7 x 2.2 x 2.3 cm 1. Uterus: surgically absent No change from XR KUB with report dated 07/17/2021 6:42 PM. 2. Endometrium: surgically absent 3. Right Ovary: surgically absent 4. Left Ovary: multiple follicles with largest measuring 1.5cm Spectral, color and waveform doppler imaging shows good arterial and venous flow within the left ov patt; there is no evidence for ovarian torsion. 5. Bilateral Adnexa: wnl 6. Posterior cul-de-sac: small amount of free fluid IMPRESSION: Tiny amount of fluid in the cul-de-sac. Multiple small left ovarian cyst. No solid pelvic mass. No ev idence of ovarian torsion.
[2021-08-09] MEDS ORDERED: KETOROLAC 15 MG/ML 1 ML VIAL IVP STA (17:54)
[2021-08-09] MEDS ORDERED: KETOROLAC 15 MG/ML 1 ML VIAL IM STA (17:55)
[2021-08-09 17:56] LABS: Appearance,Urine Clear (Clear); Bilirubin,Urine Negative (Negative); Blood,Urine Negative (Negative); Color,Urine Light Yellow; Glucose,Urine (UA) Negative (Negative); Ketones,Urine Negative (Negative); Leukocyte Esterase,Urine Negative (Negative); Nitrite,Urine Negative (Negative); Protein,Urine Negative (Negative); Specific Gravity,Urine 1.012 (1.001-1.035); Urobilinogen,Urine <2.0 mg/dL (<2.0)
--- NOTE | 2021-08-09 17:59 | ED ---
General Adult HPI - General Chief complaint: Abdominal Pain Stated complaint: ovary pain Time Seen by Provider: 08/09/21 17:44 Source: patient Mode of arrival: ambulatory Limitations: no limitations - History of Present Illness Initial comments: 31-year-old female well known to this emergency room presents for a chief complaint of abdominal pain. Patient has had abdominal pain for 18 years. States it is related to her cyst area states she had her right ovary removed because of her cysts and now has an appointment next week to have her left ovary removed because of these chronic cyst pains. Patient states this pain has been ongoing for about 5 days. States she has been controlling it at home however it worsened today and her TAPPER HAND told her just to come into the emergency room. Denies fevers or chills.Patient has no other complaints at this time including shortness of breath, chest pain, nausea or vomiting, headache, or visual changes. - Related Data Home Medications Medication Instructions Recorded Confirmed FLUoxetine HCL [PROzac] 10 mg PO HS 05/11/21 08/09/21 Omeprazole [PriLOSEC] 40 mg PO HS 05/11/21 08/09/21 Allergies Allergy/AdvReac Type Severity Reaction Status Date / Time adhesive tape Allergy Rash/Hives Verified 08/09/21 18:32 aloe vera Allergy Rash/Hives Verified 08/09/21 18:32 azithromycin Allergy Rash/Hives Verified 08/09/21 18:32 cephalexin Allergy Rash/Hives Verified 08/09/21 18:32 metronidazole [From Flagyl] Allergy Rash/Hives Verified 08/09/21 18:32 Penicillins Allergy Rash/Hives Verified 08/09/21 18:32 sulfamethoxazole Allergy Rash/Hives Verified 08/09/21 18:32 [From Bactrim] trimethoprim [From Bactrim] Allergy Rash/Hives Verified 08/09/21 18:32 alprazolam [From Xanax] AdvReac MAKES Verified 08/09/21 18:32 PARANOID dicyclomine [From Bentyl] AdvReac constipatio Verified 08/09/21 18:32 n Review of Systems ROS Statement: Those systems with pertinent positive or pertinent negative responses have been documented in the HPI. ROS Other: All systems not noted in ROS Statement are negative. Past Medical History Past Medical History: Blood Disorder, GERD/Reflux Additional Past Medical History / Comment(s): Endometriosis, polycystic ovarian syndrome. IRON DEFICIENCY ANEMIA. Stomach Ulcer. ovarian cyst History of Any Multi-Drug Resistant Organisms: None Reported Past Surgical History: Ablation, Section, Cholecystectomy, Hysterectomy, Tubal Ligation, Uterine Ablation Additional Past Surgical History / Comment(s): Laparoscopy X2, Section X3. Right ovary and right tube removed - 2019. cyst removed from chest. AUG 2020 - ADHESION REMOVAL FROM PAST . Vaginal. pelvic biopsy 05/11. PCOS Past Anesthesia/Blood Transfusion Reactions: No Reported Reaction Past Psychological History: Anxiety, Depression Smoking Status: Never smoker Past Alcohol Use History: None Reported Past Drug Use History: None Reported - Past Family History Mother Family Medical History: Hyperlipidemia Additional Family Medical History / Comment(s): Depression and anxiety. General Exam Limitations: no limitations General appearance: alert, in no apparent distress Head exam: Present: atraumatic Eye exam: Present: normal appearance, PERRL, EOMI. Absent: scleral icterus, conjunctival injection ENT exam: Present: normal exam, mucous membranes moist Neck exam: Present: normal inspection, full ROM. Absent: tenderness Respiratory exam: Present: normal lung sounds bilaterally. Absent: respiratory distress, wheezes Cardiovascular Exam: Present: regular rate, normal rhythm, normal heart sounds GI/Abdominal exam: Present: soft, tenderness (Mild left lower quadrant abdominal tenderness), normal bowel sounds. Absent: distended Neurological exam: Present: alert Course Vital Signs 08/09/21 15:58 Temperature 97.3 F L Pulse Rate 103 H Respiratory 20 Rate Blood Pressure 129/79 O2 Sat by Pulse 100 Oximetry Medical Decision Making - Medical Decision Making Vitals are stable. HPI and physical exam as documented. There is a tiny amount of fluid in the cul-de-sac with multiple small left ovarian cysts. No evidence of torsion. Patient has been seen in the emergency room several times in the past month. She has had 4 CAT scans in the past month as well as multiple ultra sounds. Patient's pain is chronic. Patient given Toradol which did not seem to help. Given 1 dose of morphine and discharged home. She will follow up with her specialist. - Lab Data Lab Results 08/09/21 Range/Units 17:42 Urine Color Light Yellow Urine Appearance Clear (Clear) Urine pH 8.0 (5.0-8.0) Ur Specific [place] 1.012 (1.001-1.035) Urine Protein Negative (Negative) Urine Glucose (UA) Negative (Negative) Urine Ketones Negative (Negative) Urine Blood Negative (Negative) Urine Nitrite Negative (Negative) Urine Bilirubin Negative (Negative) Urine Urobilinogen <2.0 (<2.0) mg/dL Ur Leukocyte Esterase Negative (Negative) Disposition Clinical Impression: Chronic abdominal pain Disposition: HOME SELF-CARE Condition: Good Instructions (If sedation given, give patient instructions): Chronic Pain (ED) Additional Instructions: Follow-up with your doctor for chronic abdominal pain. Is patient prescribed a controlled substance at d/c from ED?: No Referrals: Miri Delgado MD [STAFF PHYSICIAN] - 1-2 days Time of Disposition: 18:15
[2021-08-09] MEDS ORDERED: MORPHINE SULFATE 4 MG/ML SYRINGE IM STA (18:49)
[2021-08-09 19:18] VITALS: BP 122/72; PULSE 94
== END 2021-08-09 19:17 | disposition home or self-care (01) ==
LOC: EC 15:23
DX: N83.202 Unspecified ovarian cyst, left side (principal); K21.9 Gastro-esophageal reflux disease without esophagitis; Z91.09 Other allergy status, other than to drugs and biological substances; Z91.048 Other nonmedicinal substance allergy status; Z88.1 Allergy status to other antibiotic agents; Z88.8 Allergy status to other drugs, medicaments and biological substances; Z88.2 Allergy status to sulfonamides; Z79.899 Other long term (current) drug therapy
CPT/HCPCS: 81003; 93976; 76830; 99284; 96372; J2270; J1885

== ENCOUNTER 2021-09-03 15:36 | Emergency (ER) | payer OTHER ==
[2021-09-03 15:43] VITALS: BP 124/75; PULSE 93; RESP 20; TEMP 98.5
[2021-09-03] MEDS ORDERED: HYDROmorphone 1 MG/ML 1 ML SYRINGE IM STA (16:35)
--- NOTE | 2021-09-03 16:47 | ED ---
Abdominal Pain HPI - General Chief Complaint: Abdominal Pain Stated Complaint: Pelvic Pain Time Seen by Provider: 09/03/21 16:18 Source: patient Mode of arrival: ambulatory Limitations: no limitations - History of Present Illness Initial Comments: 31 year-old female patient presents for evaluation of left pelvic pain that started earlier today. States it feels like a cyst is rupturing on her ovary. She does have history of cholecystectomy, hysterectomy, and right oophorectomy. She also has history of endometriosis. States she did take 600mg ibuprofen around 1330 without relief. She state she is nauseated from the pain. Denies vomiting, constipation, or diarrhea. Denies hematuria, dysuria, urinary frequency, or urgency. Farshad fever or chills. Has had similar pain many times in the past. Has had several workups including pelvic ultrasound and CT abdomen and pelvis in the last month. She states her OBGYN is supposed to call her in control in order to control cyst growth but has not yet done so. - Related Data Home Medications Medication Instructions Recorded Confirmed FLUoxetine HCL [PROzac] 10 mg PO HS 05/11/21 09/03/21 Omeprazole [PriLOSEC] 40 mg PO HS 05/11/21 09/03/21 HYDROcodone/APAP 5-325MG [[place] 1 tab PO Q6H PRN 09/03/21 09/03/21 5-325] Allergies Allergy/AdvReac Type Severity Reaction Status Date / Time adhesive tape Allergy Rash/Hives Verified 09/03/21 17:10 aloe vera Allergy Rash/Hives Verified 09/03/21 17:10 azithromycin Allergy Rash/Hives Verified 09/03/21 17:10 cephalexin Allergy Rash/Hives Verified 09/03/21 17:10 metronidazole [From Flagyl] Allergy Rash/Hives Verified 09/03/21 17:10 Penicillins Allergy Rash/Hives Verified 09/03/21 17:10 sulfamethoxazole Allergy Rash/Hives Verified 09/03/21 17:10 [From Bactrim] trimethoprim [From Bactrim] Allergy Rash/Hives Verified 09/03/21 17:10 alprazolam [From Xanax] AdvReac MAKES Verified 09/03/21 17:10 PARANOID dicyclomine [From Bentyl] AdvReac constipatio Verified 09/03/21 17:10 n Review of Systems ROS Statement: Those systems with pertinent positive or pertinent negative responses have been documented in the HPI. ROS Other: All systems not noted in ROS Statement are negative. Past Medical History Past Medical History: Blood Disorder, GERD/Reflux Additional Past Medical History / Comment(s): Endometriosis, polycystic ovarian syndrome. IRON DEFICIENCY ANEMIA. Stomach Ulcer. ovarian cyst History of Any Multi-Drug Resistant Organisms: None Reported Past Surgical History: Ablation, Section, Cholecystectomy, Hysterectomy, Tubal Ligation, Uterine Ablation Additional Past Surgical History / Comment(s): Laparoscopy X2, Section X3. Right ovary and right tube removed - 2019. cyst removed from chest. AUG 2020 - ADHESION REMOVAL FROM PAST . Vaginal. pelvic biopsy 05/11. PCOS Past Anesthesia/Blood Transfusion Reactions: No Reported Reaction Past Psychological History: Anxiety, Depression Smoking Status: Never smoker Past Alcohol Use History: None Reported Past Drug Use History: None Reported - Past Family History Mother Family Medical History: Hyperlipidemia Additional Family Medical History / Comment(s): Depression and anxiety. General Exam Limitations: no limitations General appearance: alert, in no apparent distress, other (This is a well- developed, well-nourished adult female in no acute distress.) Respiratory exam: Present: normal lung sounds bilaterally. Absent: respiratory distress, wheezes, rales, rhonchi, stridor Cardiovascular Exam: Present: regular rate, normal rhythm, normal heart sounds. Absent: systolic murmur, diastolic murmur, rubs, gallop, clicks GI/Abdominal exam: Present: soft, tenderness (Left lower quadrant), normal bowel sounds. Absent: distended, guarding, rebound, rigid Neurological exam: Present: alert, oriented X3, CN II-XII intact Psychiatric exam: Present: normal affect, normal mood Skin exam: Present: warm, dry, intact, normal color. Absent: rash Course Vital Signs 09/03/21 15:41 Temperature 98.5 F Pulse Rate 93 Respiratory 20 Rate Blood Pressure 124/75 O2 Sat by Pulse 100 Oximetry Medical Decision Making - Medical Decision Making 31-year-old female patient presents to the emergency department today for evaluation of left pelvic pain that started earlier today. She does have history of chronic abdominal pain with history of endometriosis, she is status post hysterectomy and right who directed me. Physical examination did reveal left lower quadrant tenderness. She's been here multiple times over the last month and had multiple laboratory workups, CT abdomen and pelvis, ultrasound of the pelvis. I did perform ultrasound of the pelvis today which did show a 2 cm cyst and a developing follicle on the left ovary. Urinalysis is negative. I did discuss possibility of ruptured cyst versus ovulation pain as a cause for her symptoms. She'll be given Tylenol cord and starter pack. She is instructed to follow-up with her PROGRAMMER ANALYST for recheck in 1-2 days. Return parameters were discussed in detail. She verbalizes understanding and agrees with this plan. My attending is Dr. Velasquez. - Lab Data Lab Results 09/03/21 Range/Units 16:47 Urine Color Light Yellow Urine Appearance Clear (Clear) Urine pH 5.5 (5.0-8.0) Ur Specific [place] 1.016 (1.001-1.035) Urine Protein Negative (Negative) Urine Glucose (UA) Negative (Negative) Urine Ketones Negative (Negative) Urine Blood Negative (Negative) Urine Nitrite Negative (Negative) Urine Bilirubin Negative (Negative) Urine Urobilinogen <2.0 (<2.0) mg/dL Ur Leukocyte Esterase Negative (Negative) - Radiology Data Radiology results: report reviewed, image reviewed Ultrasound of the pelvis is obtained. Report was reviewed in its entirety. Impression by Dr. Melgar shows 2 cm cyst on the left ovary. No solid adnexal mass. No evidence of ovarian torsion. Disposition Clinical Impression: Pelvic pain, Left ovarian cyst Disposition: HOME SELF-CARE Condition: Good Instructions (If sedation given, give patient instructions): Ovarian Cyst (ED), Pelvic Pain in Women (ED) Additional Instructions: Follow-up with your PROGRAMMER ANALYST for recheck as soon as possible. Return for any new, worsening, or concerning symptoms. Is patient prescribed a controlled substance at d/c from ED?: No Referrals: None,Stated [Primary Care Provider] - 1-2 days Time of Disposition: 17:52
[2021-09-03 17:30] LABS: Appearance,Urine Clear (Clear); Bilirubin,Urine Negative (Negative); Blood,Urine Negative (Negative); Color,Urine Light Yellow; Glucose,Urine (UA) Negative (Negative); Ketones,Urine Negative (Negative); Leukocyte Esterase,Urine Negative (Negative); Nitrite,Urine Negative (Negative); PH, Urine 5.5 (5.0-8.0); Protein,Urine Negative (Negative); Specific Gravity,Urine 1.016 (1.001-1.035); Urobilinogen,Urine <2.0 mg/dL (<2.0)
--- NOTE | 2021-09-03 17:47 | US ---
EXAMINATION TYPE: US transvaginal DATE OF EXAM: 09/03/2021 COMPARISON: NONE CLINICAL HISTORY: Left pelvic pain. left pelvic pain, hysterectomy, right oophorectomy TECHNIQUE: Transvaginal (TV) Date of LMP: unknown EXAM MEASUREMENTS: Uterus: Surgically absent Endometrial Stripe: Surgically absent Right Ovary: Surgically absent Left Ovary: 4.0 x 2.0 x 2.8 cm 1. Uterus: Surgically absent. small amount of fluid within cervical canal. Nabothian cyst as on prior exams 2. Endometrium: Surgically absent 3. Right Ovary: Surgically absent 4. Left Ovary: dominant follicle = 2.0 x 2.0 x 1.9cm. mixed area = 1.6 x 1.3 x 1.6cm Spectral, color and waveform doppler imaging shows good arterial and venous flow within the left ov patt; there is no evidence for ovarian torsion. 5. Bilateral Adnexa: wnl 6. Posterior cul-de-sac: small amount of free fluid IMPRESSION: There is 2 cm cyst on the left ovary. No solid adnexal mass. No evidence of ovarian torsion.
[2021-09-03] MEDS ORDERED: ACET/COD 300 MG/30 MG STARTER PACK 6 TAB BTL PO STA (17:58)
== END 2021-09-03 18:20 | disposition home or self-care (01) ==
LOC: EC 15:36
DX: R10.2 Pelvic and perineal pain (principal); N83.202 Unspecified ovarian cyst, left side; K21.9 Gastro-esophageal reflux disease without esophagitis; Z79.83 Long term (current) use of bisphosphonates; Z91.048 Other nonmedicinal substance allergy status; Z91.09 Other allergy status, other than to drugs and biological substances; Z88.1 Allergy status to other antibiotic agents; Z88.0 Allergy status to penicillin; Z88.2 Allergy status to sulfonamides; Z88.3 Allergy status to other anti-infective agents
CPT/HCPCS: 81003; 93976; 76830; 99284; 96372; J1170

== ENCOUNTER 2021-09-05 17:12 | Emergency (ER) | payer OTHER ==
[2021-09-05 18:26] VITALS: BP 105/72; PULSE 76; RESP 20; TEMP 98.1
[2021-09-05] MEDS ORDERED: KETOROLAC 15 MG/ML 1 ML VIAL IM STA (20:18)
[2021-09-05] MEDS ORDERED: ACETAMINOPHEN TAB 500 MG TAB PO STA (20:18)
[2021-09-05] MEDS ORDERED: MORPHINE SULFATE 4 MG/ML SYRINGE IM STA (20:18)
--- NOTE | 2021-09-05 20:27 | ED ---
General Adult HPI - General Chief complaint: Abdominal Pain Stated complaint: Abd pain Time Seen by Provider: 09/05/21 20:06 Source: patient, RN notes reviewed Mode of arrival: ambulatory Limitations: no limitations - History of Present Illness Initial comments: This is a pleasant 31-year-old female presents for spine complaint left pelvic pain. Patient was seen here 2 days ago was diagnosed with ovarian cyst. Patient states that the pain is still present and may actually be worse. Patient Goodbar over the ovary. There was no variances seen with some free fluid in the cul-de-sac. Patient states she now has diarrhea. He states she thinks that her usual bowel syndrome is getting fluid up. No vomiting. No fever. No headache, no fever or chills, no changes in vision or hearing, no sore throat or difficulty with speech, no neck pain, no chest pain or shortness of breath, left pelvic pain as stated, no nausea or vomiting, no changes in urination, no numbness or tingling, no extremity pain, no skin rashes or lesions. Note that the patient is status post hysterectomy. Patient has a weight guesser in [facility]. - Related Data Home Medications Medication Instructions Recorded Confirmed FLUoxetine HCL [PROzac] 10 mg PO HS 05/11/21 09/03/21 Omeprazole [PriLOSEC] 40 mg PO HS 05/11/21 09/03/21 HYDROcodone/APAP 5-325MG [[place] 1 tab PO Q6H PRN 09/03/21 09/03/21 5-325] Previous Rx's Medication Instructions Recorded HYDROcodone/APAP 5-325MG [[place] 1 tab PO Q6HR PRN #10 tab 09/05/21 5-325] Naproxen [Naprosyn] 375 mg PO Q12HR PRN #20 tablet 09/05/21 Allergies Allergy/AdvReac Type Severity Reaction Status Date / Time adhesive tape Allergy Rash/Hives Verified 09/05/21 18:25 aloe vera Allergy Rash/Hives Verified 09/05/21 18:25 azithromycin Allergy Rash/Hives Verified 09/05/21 18:25 cephalexin Allergy Rash/Hives Verified 09/05/21 18:25 metronidazole [From Flagyl] Allergy Rash/Hives Verified 09/05/21 18:25 Penicillins Allergy Rash/Hives Verified 02/15/22 18:25 sulfamethoxazole Allergy Rash/Hives Verified 09/05/21 18:25 [From Bactrim] trimethoprim [From Bactrim] Allergy Rash/Hives Verified 09/05/21 18:25 alprazolam [From Xanax] AdvReac MAKES Verified 09/05/21 18:25 PARANOID dicyclomine [From Bentyl] AdvReac constipatio Verified 09/05/21 18:25 n Review of Systems ROS Statement: Those systems with pertinent positive or pertinent negative responses have been documented in the HPI. ROS Other: All systems not noted in ROS Statement are negative. Past Medical History Past Medical History: Blood Disorder, GERD/Reflux Additional Past Medical History / Comment(s): Endometriosis, polycystic ovarian syndrome. IRON DEFICIENCY ANEMIA. Stomach Ulcer. ovarian cyst History of Any Multi-Drug Resistant Organisms: None Reported Past Surgical History: Ablation, Section, Cholecystectomy, Hysterectomy, Tubal Ligation, Uterine Ablation Additional Past Surgical History / Comment(s): Laparoscopy X2, Section X3. Right ovary and right tube removed - 2019. cyst removed from chest. AUG 2020 - ADHESION REMOVAL FROM PAST . Vaginal. pelvic biopsy 05/11. PCOS Past Anesthesia/Blood Transfusion Reactions: No Reported Reaction Past Psychological History: Anxiety, Depression Smoking Status: Never smoker Past Alcohol Use History: None Reported Past Drug Use History: None Reported - Past Family History Mother Family Medical History: Hyperlipidemia Additional Family Medical History / Comment(s): Depression and anxiety. General Exam - General Exam Comments Initial Comments: Nontoxic-appearing 31-year-old female in no distress. Patient does not appear to be in significant distress. Limitations: no limitations General appearance: alert, in no apparent distress Head exam: Present: atraumatic, normocephalic, normal inspection Eye exam: Present: normal appearance, PERRL, EOMI. Absent: scleral icterus, conjunctival injection, periorbital swelling ENT exam: Present: normal exam, mucous membranes moist Neck exam: Present: normal inspection, full ROM. Absent: tenderness, meningismus, lymphadenopathy Respiratory exam: Present: normal lung sounds bilaterally. Absent: respiratory distress, wheezes, rales, rhonchi, stridor, chest wall tenderness, accessory muscle use Cardiovascular Exam: Present: regular rate, normal rhythm, normal heart sounds. Absent: systolic murmur, diastolic murmur, rubs, gallop, clicks GI/Abdominal exam: Present: soft, tenderness, normal bowel sounds, other (Left pelvic tenderness to palpation. Voluntary guarding. No abdomen or pelvic tenderness otherwise.). Absent: distended, guarding, rebound, rigid Extremities exam: Present: normal inspection, full ROM, normal capillary refill. Absent: tenderness, pedal edema, joint swelling, calf tenderness Back exam: Present: normal inspection Neurological exam: Present: alert, oriented X3, CN II-XII intact Psychiatric exam: Present: normal affect, normal mood Skin exam: Present: warm, dry, intact, normal color. Absent: rash Course Vital Signs 09/05/21 18:23 Temperature 98.1 F Pulse Rate 76 Respiratory 20 Rate Blood Pressure 105/72 O2 Sat by Pulse 100 Oximetry Medical Decision Making - Medical Decision Making This patient has had multiple visits over the past several months. She's had multiple imaging studies to include CT scans and ultrasounds. I see no reason to reimage the patient here today. Patient does not appear to be ill or toxic. Some mild diarrhea which she is relating to her irritable bowel syndrome. No hematochezia or melena. Patient tender in the left pelvic area. Patient is status post hysterectomy and right oophorectomy. Patient has a weight guesser and well. I'm going to treat the patient with pain medicine here and discharged patient for follow-up. Patient was told to return to the ER for any signs or symptoms worsen. Told to return immediately if any other problems arise. All questions answered. Treatment plan discussed. Patient in agreement Patient does have an ovarian cyst seen on the previous ultrasound. I'm going to give the patient a short, 2.5 day course of hydrocodone and switch her over to Naprosyn and have her follow-up with her weight guesser. Disposition Clinical Impression: Ovarian cyst, left Disposition: HOME SELF-CARE Condition: Stable Instructions (If sedation given, give patient instructions): Ruptured Ovarian Cyst (ED) Additional Instructions: Follow-up with your weight guesser. Call tomorrow for an appointment. Take the medications as directed. Hold the ibuprofen and take the anti-inflammatory medication that I prescribed. Follow-up with your regular physician as directed. Return to the ER immediately if any symptoms worsen, new symptoms arise, or any other problems develop. Prescriptions: Naproxen [Naprosyn] 375 mg PO Q12HR PRN #20 tablet PRN Reason: Pain HYDROcodone/APAP 5-325MG [[place] 5-325] 1 tab PO Q6HR PRN #10 tab PRN Reason: Pain Is patient prescribed a controlled substance at d/c from ED?: Yes When asked, does pt state using other controlled substances?: No If prescribed controlled substance>3 days was MAPS reviewed?: No If opioid is for acute pain is fill amount 7 days or less?: Yes If Rx opioid, was Start Talking consent form obtained?: Yes Referrals: Ray Vazquez MD [STAFF PHYSICIAN] - 09/07/21 Time of Disposition: 20:46
== END 2021-09-05 21:26 | disposition home or self-care (01) ==
LOC: EC 17:12
DX: N83.202 Unspecified ovarian cyst, left side (principal); K21.9 Gastro-esophageal reflux disease without esophagitis; Z79.899 Other long term (current) drug therapy; Z91.09 Other allergy status, other than to drugs and biological substances; Z91.048 Other nonmedicinal substance allergy status; Z88.1 Allergy status to other antibiotic agents; Z88.0 Allergy status to penicillin; Z88.8 Allergy status to other drugs, medicaments and biological substances; Z88.2 Allergy status to sulfonamides
CPT/HCPCS: 99284; J2270; J1885

== ENCOUNTER 2021-09-19 16:42 | Emergency (ER) | payer OTHER ==
[2021-09-19 17:31] VITALS: RESP 16; TEMP 100.1
[2021-09-19 17:44] LABS: Appearance,Urine Clear (Clear); Bilirubin,Urine Negative (Negative); Blood,Urine Negative (Negative); Color,Urine Yellow; Glucose,Urine (UA) Negative (Negative); Ketones,Urine Negative (Negative); Leukocyte Esterase,Urine Negative (Negative); Nitrite,Urine Negative (Negative); Protein,Urine Negative (Negative); Specific Gravity,Urine 1.021 (1.001-1.035); Urobilinogen,Urine <2.0 mg/dL (<2.0)
[2021-09-19] MEDS ORDERED: SODIUM CHLORIDE 0.9% 1,000 ML IV STA (20:20)
[2021-09-19] MEDS ORDERED: ONDANSETRON 4 MG/2 ML VIAL IVP STA (20:24)
[2021-09-19] MEDS ORDERED: MORPHINE SULFATE 4 MG/ML SYRINGE IV STA ×2 (20:24→21:41)
--- NOTE | 2021-09-19 20:28 | ED ---
Abdominal Pain HPI - General Chief Complaint: Abdominal Pain Stated Complaint: Pelvic pain Time Seen by Provider: 09/19/21 20:16 Source: patient, RN notes reviewed Mode of arrival: ambulatory Limitations: no limitations - History of Present Illness Initial Comments: This is a 31-year-old female with a history of ovarian cyst, previous hysterec galdino, previous right-sided oophorectomy. She presents emergent today complaining of right lower quadrant abdominal pain. Patient concerned that it might have been her ovarian cyst although her ovaries on the left side. She states she previously has had a cyst that caused pain on the right side. However patient found to have nausea, persistent pain in the right lower quadrant for one day. No irritative voiding. Pain is sharp, exacerbated by palpation and movement. Calcified have a low-grade fever and loss of appetite. No headache, no fever or chills, no changes in vision or hearing, no sore throat or difficulty with speech, no neck pain, no chest pain or shortness of breath, no changes in urination or bowel movements, no numbness or tingling, no extremity pain, no skin rashes or lesions. MD Complaint: abdominal pain - Related Data Home Medications Medication Instructions Recorded Confirmed FLUoxetine HCL [PROzac] 10 mg PO HS 05/11/21 09/19/21 Omeprazole [PriLOSEC] 40 mg PO HS 05/11/21 09/19/21 Naproxen [Naprosyn] 375 mg PO BID PRN 09/19/21 09/19/21 Allergies Allergy/AdvReac Type Severity Reaction Status Date / Time adhesive tape Allergy Rash/Hives Verified 09/19/21 21:45 aloe vera Allergy Rash/Hives Verified 09/19/21 21:45 azithromycin Allergy Rash/Hives Verified 09/19/21 21:45 cephalexin Allergy Rash/Hives Verified 09/19/21 21:45 metronidazole [From Flagyl] Allergy Rash/Hives Verified 09/19/21 21:45 Penicillins Allergy Rash/Hives Verified 09/19/21 21:45 sulfamethoxazole Allergy Rash/Hives Verified 09/19/21 21:45 [From Bactrim] trimethoprim [From Bactrim] Allergy Rash/Hives Verified 09/19/21 21:45 alprazolam [From Xanax] AdvReac MAKES Verified 03/01/22 21:45 PARANOID dicyclomine [From Bentyl] AdvReac constipatio Verified 09/19/21 21:45 n Review of Systems ROS Statement: Those systems with pertinent positive or pertinent negative responses have been documented in the HPI. ROS Other: All systems not noted in ROS Statement are negative. Past Medical History Past Medical History: Blood Disorder, GERD/Reflux Additional Past Medical History / Comment(s): Endometriosis, polycystic ovarian syndrome. IRON DEFICIENCY ANEMIA. Stomach Ulcer. ovarian cyst History of Any Multi-Drug Resistant Organisms: None Reported Past Surgical History: Ablation, Section, Cholecystectomy, Hysterectomy, Tubal Ligation, Uterine Ablation Additional Past Surgical History / Comment(s): Laparoscopy X2, Section X3. Right ovary and right tube removed - 2019. cyst removed from chest. AUG 2020 - ADHESION REMOVAL FROM PAST . Vaginal. pelvic biopsy 05/11. PCOS Past Anesthesia/Blood Transfusion Reactions: No Reported Reaction Past Psychological History: Anxiety, Depression Smoking Status: Never smoker Past Alcohol Use History: None Reported Past Drug Use History: None Reported - Past Family History Mother Family Medical History: Hyperlipidemia Additional Family Medical History / Comment(s): Depression and anxiety. General Exam - General Exam Comments Initial Comments: Healthy-appearing 31-year-old female in mild distress. Patient does not appear to be ill or toxic. Limitations: no limitations General appearance: alert, in distress Head exam: Present: atraumatic, normocephalic, normal inspection Eye exam: Present: normal appearance, PERRL, EOMI. Absent: scleral icterus, conjunctival injection, periorbital swelling ENT exam: Present: normal exam, mucous membranes moist Neck exam: Present: normal inspection. Absent: tenderness, meningismus, lymp hadenopathy Respiratory exam: Present: normal lung sounds bilaterally. Absent: respiratory distress, wheezes, rales, rhonchi, stridor Cardiovascular Exam: Present: regular rate, normal rhythm, normal heart sounds. Absent: systolic murmur, diastolic murmur, rubs, gallop, clicks GI/Abdominal exam: Present: soft, tenderness, guarding, normal bowel sounds, other (Right lower quadrant tenderness). Absent: distended, rebound, rigid Extremities exam: Present: normal inspection, full ROM, normal capillary refill. Absent: tenderness, pedal edema, joint swelling, calf tenderness Back exam: Present: normal inspection Neurological exam: Present: alert, oriented X3, CN II-XII intact Psychiatric exam: Present: normal affect, normal mood Skin exam: Present: warm, dry, intact, normal color. Absent: rash Course Vital Signs 09/19/21 09/19/21 09/19/21 17:29 21:00 22:54 Temperature 100.1 F H Pulse Rate 70 72 76 Respiratory 16 16 16 Rate Blood Pressure 138/81 131/72 103/63 O2 Sat by Pulse 100 98 98 Oximetry - Reevaluation(s) Reevaluation #1: 09/19/21 23:13 Medical record is reviewed Symptoms are improved here in the emergency department--patient still complaining of some pain. Workup was essentially negative Patient is informed of results and questions answered Patient in no distress Medical Decision Making - Medical Decision Making Patient has had a previous hysterectomy and right-sided oophorectomy. The only gynecological structures she has left his left ovary. Patient presents with right lower quadrant pain, low-grade fever, nausea, and lack of appetite. Appendicitis is within the differential. Urine was clear as ordered in triage. Will order CT abdomen and pelvis with IV contrast plan for reevaluation. There is no diagnostic findings to explain the patient's pain. I suspect the patient has chronic pelvic pain, this does raise suspicion of ruptured ovarian cyst, endometriosis, functional pelvic pain. Patient has an appointment with her inside sales professional. We will have her keep that. She can take her home pain medication as directed Patient was told to return to the ER for any signs or symptoms worsen. Told to return immediately if any other problems arise. All questions answered. Treatment plan discussed. Patient in agreement Every effort has been made to ensure accuracy of this dictation. However, due to the limitations of electronic medical records and dictation devices, errors in charting still occur. - Lab Data Result diagrams: 09/19/21 20:46 09/19/21 20:46 Lab Results 09/19/21 09/19/21 09/19/21 Range/Units 17:38 20:46 20:46 WBC 5.5 (3.8-10.6) k/uL RBC 3.85 (3.80-5.40) m/uL Hgb 11.9 (11.4-16.0) gm/dL Hct 35.8 (34.0-46.0) % MCV 93.0 (80.0-100.0) fL MCH 30.9 (25.0-35.0) pg MCHC 33.2 (31.0-37.0) g/dL RDW 13.5 (11.5-15.5) % Plt Count 226 (150-450) k/uL MPV 7.6 Neutrophils % 62 % Lymphocytes % 30 % Monocytes % 4 % Eosinophils % 1 % Basophils % 0 % Neutrophils # 3.4 (1.3-7.7) k/uL Lymphocytes # 1.7 (1.0-4.8) k/uL Monocytes # 0.2 (0-1.0) k/uL Eosinophils # 0.0 (0-0.7) k/uL Basophils # 0.0 (0-0.2) k/uL Sodium 137 (137-145) mmol/L Potassium 3.9 (3.5-5.1) mmol/L Chloride 106 (98-107) mmol/L Carbon Dioxide 23 (22-30) mmol/L Anion Gap 8 mmol/L BUN 14 (7-17) mg/dL Creatinine 0.72 (0.52-1.04) mg/dL Est GFR (CKD-EPI)AfAm >90 (>60 ml/min/1.73 sqM) Est GFR (CKD-EPI)NonAf >90 (>60 ml/min/1.73 sqM) Glucose 97 (74-99) mg/dL Plasma Lactic Acid Santhosh (0.7-2.0) mmol/L Calcium 9.1 (8.4-10.2) mg/dL Total Bilirubin 0.8 (0.2-1.3) mg/dL AST 28 (14-36) U/L ALT 24 (4-34) U/L Alkaline Phosphatase 103 (38-126) U/L Total Protein 7.0 (6.3-8.2) g/dL Albumin 4.1 (3.5-5.0) g/dL Lipase 41 (23-300) U/L Urine Color Yellow Urine Appearance Clear (Clear) Urine pH 6.0 (5.0-8.0) Ur Specific [place] 1.021 (1.001-1.035) Urine Protein Negative (Negative) Urine Glucose (UA) Negative (Negative) Urine Ketones Negative (Negative) Urine Blood Negative (Negative) Urine Nitrite Negative (Negative) Urine Bilirubin Negative (Negative) Urine Urobilinogen <2.0 (<2.0) mg/dL Ur Leukocyte Esterase Negative (Negative) 09/19/21 Range/Units 20:46 WBC (3.8-10.6) k/uL RBC (3.80-5.40) m/uL Hgb (11.4-16.0) gm/dL Hct (34.0-46.0) % MCV (80.0-100.0) fL MCH (25.0-35.0) pg MCHC (31.0-37.0) g/dL RDW (11.5-15.5) % Plt Count (150-450) k/uL MPV Neutrophils % % Lymphocytes % % Monocytes % % Eosinophils % % Basophils % % Neutrophils # (1.3-7.7) k/uL Lymphocytes # (1.0-4.8) k/uL Monocytes # (0-1.0) k/uL Eosinophils # (0-0.7) k/uL Basophils # (0-0.2) k/uL Sodium (137-145) mmol/L Potassium (3.5-5.1) mmol/L Chloride (98-107) mmol/L Carbon Dioxide (22-30) mmol/L Anion Gap mmol/L BUN (7-17) mg/dL Creatinine (0.52-1.04) mg/dL Est GFR (CKD-EPI)AfAm (>60 ml/min/1.73 sqM) Est GFR (CKD-EPI)NonAf (>60 ml/min/1.73 sqM) Glucose (74-99) mg/dL Plasma Lactic Acid [place] 0.8 (0.7-2.0) mmol/L Calcium (8.4-10.2) mg/dL Total Bilirubin (0.2-1.3) mg/dL AST (14-36) U/L ALT (4-34) U/L Alkaline Phosphatase (38-126) U/L Total Protein (6.3-8.2) g/dL Albumin (3.5-5.0) g/dL Lipase (23-300) U/L Urine Color Urine Appearance (Clear) Urine pH (5.0-8.0) Ur Specific [place] (1.001-1.035) Urine Protein (Negative) Urine Glucose (UA) (Negative) Urine Ketones (Negative) Urine Blood (Negative) Urine Nitrite (Negative) Urine Bilirubin (Negative) Urine Urobilinogen (<2.0) mg/dL Ur Leukocyte Esterase (Negative) Disposition Clinical Impression: Chronic pelvic pain in female Disposition: HOME SELF-CARE Condition: Stable Instructions (If sedation given, give patient instructions): Pelvic Pain in Women (ED) Additional Instructions: Follow-up with your regular physician as directed. Follow-up with her inside sales professional as planned. Take your home pain medication as directed. Return to the ER immediately if any symptoms worsen, new symptoms arise, or any other problems develop. Is patient prescribed a controlled substance at d/c from ED?: No Referrals: None,Stated [Primary Care Provider] - 1-2 days Time of Disposition: 23:14
[2021-09-19 20:58] LABS: Basophils % (A) 0 %; Eosinophils % (A) 1 %; HCT 35.8 % (34.0-46.0); HGB 11.9 gm/dL (11.4-16.0); Lymphocytes # (A) 1.7 k/uL (1.0-4.8); Lymphocytes % (A) 30 %; MCH 30.9 pg (25.0-35.0); MCHC 33.2 g/dL (31.0-37.0); Mean Platelet Volume 7.6; Monocytes # (A) 0.2 k/uL (0-1.0); Monocytes % (A) 4 %; Neutrophils # (A) 3.4 k/uL (1.3-7.7); Neutrophils % (A) 62 %; Platelet Count 226 k/uL (150-450); RBC 3.85 m/uL (3.80-5.40); RDW 13.5 % (11.5-15.5); WBC 5.5 k/uL (3.8-10.6)
[2021-09-19 21:17] LABS: ALT 24 U/L (4-34); AST 28 U/L (14-36); African American GFR (CKD) >90 (>60 ml/min/1.73 sqM); Albumin 4.1 g/dL (3.5-5.0); Alkaline Phosphatase 103 U/L (38-126); Anion Gap 8 mmol/L; Blood Urea Nitrogen 14 mg/dL (7-17); Calcium 9.1 mg/dL (8.4-10.2); Carbon Dioxide 23 mmol/L (22-30); Chloride 106 mmol/L (98-107); Glucose 97 mg/dL (74-99); Lipase 41 U/L (23-300); Non-African American GFR(CKD) >90 (>60 ml/min/1.73 sqM); Potassium 3.9 mmol/L (3.5-5.1); Sodium 137 mmol/L (137-145); Total Bilirubin 0.8 mg/dL (0.2-1.3)
--- NOTE | 2021-09-19 22:09 | CT ---
EXAMINATION TYPE: CT abdomen pelvis w con DATE OF EXAM: 09/19/2021 COMPARISON: HISTORY: RLQ pain, hx polycystic ovarian syndrome. CT DLP: 1375.3 mGycm Automated exposure control for dose reduction was used. CONTRAST: Performed with IV Contrast, patient injected with 100 mL of Isovue 300. Images obtained from the diaphragm to the floor the pelvis with IV contrast. Lung bases are clear. There is no pleural effusion. Heart size is normal. There is no pericardial eff usion. There are clips from cholecystectomy. There is small hiatal hernia. Liver spleen pancreas appe ar intact. The bile ducts are not dilated. There is no adrenal mass. Kidneys show satisfactory contrast opacification. There is no hydronephrosi s. Delayed images show normal renal excretion. There is no retroperitoneal adenopathy. The bladder di stends smoothly. There is no inguinal hernia. There is no free fluid in the pelvis. There is no evide nce of pelvic mass. Appendix is posterior and appears normal. There is no mesenteric edema. There is no ascites or free air. There is no bowel obstruction. There i s some mild fat stranding in the midline subcutaneous abdomen consistent with previous surgery. There are small ventral hernia in the midline containing fat. This measures 2 x 1 cm. The lumbar vertebrae have normal alignment. Disc spaces are normal. Posterior elements are intact. Th ere is no compression fracture. Uterus appears normal. There is no sign of a pelvic mass. The hip mariaa nts are intact. The bony pelvis is intact. IMPRESSION: Normal appendix. No suspicious pelvic mass. No evidence of any significant free fluid.
[2021-09-19 22:55] VITALS: BP 103/63; PULSE 76
== END 2021-09-20 00:14 | disposition home or self-care (01) ==
LOC: EC 16:42
DX: G89.29 Other chronic pain (principal); R10.2 Pelvic and perineal pain; K21.9 Gastro-esophageal reflux disease without esophagitis; Z79.83 Long term (current) use of bisphosphonates; Z91.09 Other allergy status, other than to drugs and biological substances; Z88.1 Allergy status to other antibiotic agents; Z88.2 Allergy status to sulfonamides; Z88.0 Allergy status to penicillin; Z88.8 Allergy status to other drugs, medicaments and biological substances; Z91.048 Other nonmedicinal substance allergy status
CPT/HCPCS: 36415; 80053; 83605; 83690; 85025; 81003; 74177; 99284; 96374; 96375; 96376; 96361; J2270; J2405; Q9967

== ENCOUNTER 2021-09-21 14:54 | Emergency (ER) | payer OTHER ==
[2021-09-21 15:18] VITALS: BP 132/87; PULSE 87; RESP 16; TEMP 99
[2021-09-21] MEDS ORDERED: MORPHINE SULFATE 4 MG/ML SYRINGE IV STA (15:36)
[2021-09-21] MEDS ORDERED: ONDANSETRON 4 MG/2 ML VIAL IVP STA (15:36)
[2021-09-21 16:16] LABS: Appearance,Urine Clear (Clear); Bilirubin,Urine Negative (Negative); Blood,Urine Negative (Negative); Color,Urine Light Yellow; Glucose,Urine (UA) Negative (Negative); Ketones,Urine Negative (Negative); Leukocyte Esterase,Urine Negative (Negative); Nitrite,Urine Negative (Negative); PH, Urine 7.5 (5.0-8.0); Protein,Urine Negative (Negative); Specific Gravity,Urine 1.008 (1.001-1.035); Urobilinogen,Urine <2.0 mg/dL (<2.0)
[2021-09-21 16:19] LABS: Basophils % (A) 0 %; Eosinophils % (A) 1 %; HGB 11.4 gm/dL (11.4-16.0); Lymphocytes # (A) 1.1 k/uL (1.0-4.8); Lymphocytes % (A) 28 %; MCH 31.4 pg (25.0-35.0); MCHC 34.5 g/dL (31.0-37.0); MCV 90.8 fL (80.0-100.0); Mean Platelet Volume 7.6; Monocytes # (A) 0.2 k/uL (0-1.0); Monocytes % (A) 6 %; Neutrophils # (A) 2.6 k/uL (1.3-7.7); Neutrophils % (A) 63 %; Platelet Count 208 k/uL (150-450); RBC 3.63 m/uL (3.80-5.40); RDW 13.5 % (11.5-15.5); WBC 4.1 k/uL (3.8-10.6)
[2021-09-21 16:27] LABS: ALT 20 U/L (4-34); AST 24 U/L (14-36); African American GFR (CKD) >90 (>60 ml/min/1.73 sqM); Albumin 3.7 g/dL (3.5-5.0); Alkaline Phosphatase 84 U/L (38-126); Anion Gap 6 mmol/L; Blood Urea Nitrogen 11 mg/dL (7-17); Calcium 9.1 mg/dL (8.4-10.2); Carbon Dioxide 24 mmol/L (22-30); Chloride 107 mmol/L (98-107); Glucose 93 mg/dL (74-99); Lipase 30 U/L (23-300); Non-African American GFR(CKD) >90 (>60 ml/min/1.73 sqM); Potassium 4.4 mmol/L (3.5-5.1); Sodium 137 mmol/L (137-145); Total Bilirubin 0.8 mg/dL (0.2-1.3); Total Protein 6.5 g/dL (6.3-8.2)
--- NOTE | 2021-09-21 16:28 | ED ---
Abdominal Pain HPI - General Chief Complaint: Abdominal Pain Stated Complaint: Vomiting Time Seen by Provider: 09/21/21 15:30 Source: patient Mode of arrival: ambulatory Limitations: no limitations - History of Present Illness Initial Comments: Patient is a 31-year-old female with a past medical history of left ovarian cyst, hysterectomy, and right-sided oophorectomy who presents to the emergency department with a chief complaint of right lower quadrant abdominal pain. Patient was seen here on 09/19/[address] of the abdomen and pelvis was unremarkable. Patient was instructed to follow-up with her tobacco roller as patient had concerned pain was due to her previously diagnosed ovarian cyst although the cyst was found to be left-sided. Patient expresses concern today due to vomiting twice. She is currently nauseous and reports intermittent chills today. She has no other complaints at this time including fever, shortness of breath, chest pain, constipation, diarrhea, burning with urination, blood in the urine. - Related Data Home Medications Medication Instructions Recorded Confirmed FLUoxetine HCL [PROzac] 10 mg PO HS 05/11/21 09/21/21 Omeprazole [PriLOSEC] 40 mg PO HS 05/11/21 09/21/21 Naproxen [Naprosyn] 375 mg PO BID PRN 09/19/21 09/21/21 Allergies Allergy/AdvReac Type Severity Reaction Status Date / Time adhesive tape Allergy Rash/Hives Verified 09/21/21 15:18 aloe vera Allergy Rash/Hives Verified 09/21/21 15:18 azithromycin Allergy Rash/Hives Verified 09/21/21 15:18 cephalexin Allergy Rash/Hives Verified 09/21/21 15:18 metronidazole [From Flagyl] Allergy Rash/Hives Verified 09/21/21 15:18 Penicillins Allergy Rash/Hives Verified 09/21/21 15:18 sulfamethoxazole Allergy Rash/Hives Verified 09/21/21 15:18 [From Bactrim] trimethoprim [From Bactrim] Allergy Rash/Hives Verified 09/21/21 15:18 alprazolam [From Xanax] AdvReac MAKES Verified 09/21/21 15:18 PARANOID dicyclomine [From Bentyl] AdvReac constipatio Verified 09/21/21 15:18 n Review of Systems ROS Statement: Those systems with pertinent positive or pertinent negative responses have been documented in the HPI. ROS Other: All systems not noted in ROS Statement are negative. Past Medical History Past Medical History: Blood Disorder, GERD/Reflux Additional Past Medical History / Comment(s): Endometriosis, polycystic ovarian syndrome. IRON DEFICIENCY ANEMIA. Stomach Ulcer. ovarian cyst History of Any Multi-Drug Resistant Organisms: None Reported Past Surgical History: Ablation, Section, Cholecystectomy, Hysterectomy, Tubal Ligation, Uterine Ablation Additional Past Surgical History / Comment(s): Laparoscopy X2, Section X3. Right ovary and right tube removed - 2019. cyst removed from chest. AUG 2020 - ADHESION REMOVAL FROM PAST . Vaginal. pelvic biopsy 05/11. PCOS Past Anesthesia/Blood Transfusion Reactions: No Reported Reaction Past Psychological History: Anxiety, Depression Smoking Status: Never smoker Past Alcohol Use History: None Reported Past Drug Use History: None Reported - Past Family History Mother Family Medical History: Hyperlipidemia Additional Family Medical History / Comment(s): Depression and anxiety. General Exam Limitations: no limitations General appearance: alert, in no apparent distress Head exam: Present: atraumatic, normocephalic, normal inspection Eye exam: Present: normal appearance, PERRL, EOMI. Absent: scleral icterus, conjunctival injection, periorbital swelling ENT exam: Present: mucous membranes moist Respiratory exam: Present: normal lung sounds bilaterally. Absent: respiratory distress, wheezes, rales, rhonchi, stridor Cardiovascular Exam: Present: regular rate, normal rhythm, normal heart sounds. Absent: systolic murmur, diastolic murmur, rubs, gallop, clicks GI/Abdominal exam: Present: soft, tenderness (Mild and right lower quadrant), normal bowel sounds. Absent: distended, guarding, rebound, rigid Neurological exam: Present: alert, oriented X3, CN II-XII intact Psychiatric exam: Present: normal affect, normal mood Skin exam: Present: warm, dry, intact, normal color. Absent: rash Course Vital Signs 09/21/21 15:14 Temperature 99.0 F Pulse Rate 87 Respiratory 16 Rate Blood Pressure 132/87 O2 Sat by Pulse 100 Oximetry Medical Decision Making - Medical Decision Making This is a 31-year-old female who presents with right lower quadrant pain. Thorough history and examination were performed. This patient has been evaluated in the emergency department multiple times during the past several m ont. Today, patient is afebrile. She is mildly tender with right lower quadrant abdominal palpation. Laboratory studies are unremarkable. She is negative for COVID-19, influenza A, and influenza B. Transvaginal ultrasound is negative for left ovarian torsion. On reevaluation right lower quadrant pain has markedly improved. Patient reports she is no longer nauseous. At this time there is no certain etiology for patient's symptoms. She will be discharged with instruction to follow up with her tobacco roller as she reports she did not see the tobacco roller today due to vomiting. Return parameters discussed. Patient verbalizes understanding and is agreeable to plan. Dr. Maciel is my attending. - Lab Data Result diagrams: 09/21/21 16:00 09/21/21 16:00 Lab Results 09/21/21 09/21/21 09/21/21 Range/Units 16:00 16:00 16:00 WBC 4.1 (3.8-10.6) k/uL RBC 3.63 L (3.80-5.40) m/uL Hgb 11.4 (11.4-16.0) gm/dL Hct 33.0 L (34.0-46.0) % MCV 90.8 (80.0-100.0) fL MCH 31.4 (25.0-35.0) pg MCHC 34.5 (31.0-37.0) g/dL RDW 13.5 (11.5-15.5) % Plt Count 208 (150-450) k/uL MPV 7.6 Neutrophils % 63 % Lymphocytes % 28 % Monocytes % 6 % Eosinophils % 1 % Basophils % 0 % Neutrophils # 2.6 (1.3-7.7) k/uL Lymphocytes # 1.1 (1.0-4.8) k/uL Monocytes # 0.2 (0-1.0) k/uL Eosinophils # 0.0 (0-0.7) k/uL Basophils # 0.0 (0-0.2) k/uL Sodium 137 (137-145) mmol/L Potassium 4.4 (3.5-5.1) mmol/L Chloride 107 (98-107) mmol/L Carbon Dioxide 24 (22-30) mmol/L Anion Gap 6 mmol/L BUN 11 (7-17) mg/dL Creatinine 0.61 (0.52-1.04) mg/dL Est GFR (CKD-EPI)AfAm >90 (>60 ml/min/1.73 sqM) Est GFR (CKD-EPI)NonAf >90 (>60 ml/min/1.73 sqM) Glucose 93 (74-99) mg/dL Calcium 9.1 (8.4-10.2) mg/dL Total Bilirubin 0.8 (0.2-1.3) mg/dL AST 24 (14-36) U/L ALT 20 (4-34) U/L Alkaline Phosphatase 84 (38-126) U/L Total Protein 6.5 (6.3-8.2) g/dL Albumin 3.7 (3.5-5.0) g/dL Lipase 30 (23-300) U/L Urine Color Light Yellow Urine Appearance Clear (Clear) Urine pH 7.5 (5.0-8.0) Ur Specific [place] 1.008 (1.001-1.035) Urine Protein Negative (Negative) Urine Glucose (UA) Negative (Negative) Urine Ketones Negative (Negative) Urine Blood Negative (Negative) Urine Nitrite Negative (Negative) Urine Bilirubin Negative (Negative) Urine Urobilinogen <2.0 (<2.0) mg/dL Ur Leukocyte Esterase Negative (Negative) Coronavirus (PCR) (Not Detectd) Influenza Type A RNA (Not Detectd) Influenza Type B (PCR) (Not Detectd) 09/21/21 09/21/21 Range/Units 16:00 16:00 WBC (3.8-10.6) k/uL RBC (3.80-5.40) m/uL Hgb (11.4-16.0) gm/dL Hct (34.0-46.0) % MCV (80.0-100.0) fL MCH (25.0-35.0) pg MCHC (31.0-37.0) g/dL RDW (11.5-15.5) % Plt Count (150-450) k/uL MPV Neutrophils % % Lymphocytes % % Monocytes % % Eosinophils % % Basophils % % Neutrophils # (1.3-7.7) k/uL Lymphocytes # (1.0-4.8) k/uL Monocytes # (0-1.0) k/uL Eosinophils # (0-0.7) k/uL Basophils # (0-0.2) k/uL Sodium (137-145) mmol/L Potassium (3.5-5.1) mmol/L Chloride (98-107) mmol/L Carbon Dioxide (22-30) mmol/L Anion Gap mmol/L BUN (7-17) mg/dL Creatinine (0.52-1.04) mg/dL Est GFR (CKD-EPI)AfAm (>60 ml/min/1.73 sqM) Est GFR (CKD-EPI)NonAf (>60 ml/min/1.73 sqM) Glucose (74-99) mg/dL Calcium (8.4-10.2) mg/dL Total Bilirubin (0.2-1.3) mg/dL AST (14-36) U/L ALT (4-34) U/L Alkaline Phosphatase (38-126) U/L Total Protein (6.3-8.2) g/dL Albumin (3.5-5.0) g/dL Lipase (23-300) U/L Urine Color Urine Appearance (Clear) Urine pH (5.0-8.0) Ur Specific [place] (1.001-1.035) Urine Protein (Negative) Urine Glucose (UA) (Negative) Urine Ketones (Negative) Urine Blood (Negative) Urine Nitrite (Negative) Urine Bilirubin (Negative) Urine Urobilinogen (<2.0) mg/dL Ur Leukocyte Esterase (Negative) Coronavirus (PCR) Not Detected (Not Detectd) Influenza Type A RNA Not Detected (Not Detectd) Influenza Type B (PCR) Not Detected (Not Detectd) Disposition Clinical Impression: Right lower quadrant abdominal pain Disposition: HOME SELF-CARE Condition: Good Instructions (If sedation given, give patient instructions): Abdominal Pain (ED), Ruptured Ovarian Cyst (ED) Additional Instructions: Follow-up with tobacco roller at earliest available appointment. Return to the emergency department if you experience new, concerning, or worsening symptoms. Is patient prescribed a controlled substance at d/c from ED?: No Referrals: None,Stated [Primary Care Provider] - 1-2 days Time of Disposition: 18:20
--- NOTE | 2021-09-21 17:57 | US ---
EXAMINATION TYPE: US transvaginal DATE OF EXAM: 09/21/2021 COMPARISON: CT 09/19/21, US Transvaginal 09/03/21 CLINICAL HISTORY: RLQ pain. Patient presents with pelvic pain; hx of hysterectomy and right oophorect priti TECHNIQUE: Transvaginal (TV). EXAM MEASUREMENTS: Left Ovary: 3.0 x 2.8 x 1.8 cm 1. Uterus: Surgically absent 2. Endometrium: Surgically absent 3. Right Ovary: Surgically absent 4. Left Ovary: Wnl Spectral, color and waveform doppler imaging shows good arterial and venous flow within the ovary; there is no evidence for ovarian torsion. 5. Bilateral Adnexa: wnl 6. Posterior cul-de-sac: Minimal fluid IMPRESSION: 1. Small amount of fluid seen within the cul-de-sac. 2. No evidence of left ovarian torsion
[2021-09-21] MEDS ORDERED: KETOROLAC 15 MG/ML 1 ML VIAL IVP STA (18:24)
== END 2021-09-21 19:02 | disposition home or self-care (01) ==
LOC: EC 14:54
DX: R10.31 Right lower quadrant pain (principal); K21.9 Gastro-esophageal reflux disease without esophagitis; Z79.83 Long term (current) use of bisphosphonates; Z20.822 Contact with and (suspected) exposure to COVID-19; Z88.1 Allergy status to other antibiotic agents; Z88.0 Allergy status to penicillin; Z88.2 Allergy status to sulfonamides
CPT/HCPCS: 36415; 80053; 83690; 85025; 81003; 87502; 87635; 93976; 76830; 99284; 96374; 96375; J2270; J2405; J1885; 93975

== ENCOUNTER 2021-09-26 14:13 | Emergency (ER) | payer OTHER ==
[2021-09-26 14:58] VITALS: TEMP 98
[2021-09-26 17:34] LABS: Basophils % (A) 0 %; Eosinophils % (A) 1 %; HCT 35.2 % (34.0-46.0); HGB 11.9 gm/dL (11.4-16.0); Lymphocytes # (A) 1.4 k/uL (1.0-4.8); Lymphocytes % (A) 29 %; MCH 31.3 pg (25.0-35.0); MCHC 33.7 g/dL (31.0-37.0); MCV 92.8 fL (80.0-100.0); Mean Platelet Volume 8.3; Monocytes # (A) 0.3 k/uL (0-1.0); Monocytes % (A) 5 %; Neutrophils # (A) 3.1 k/uL (1.3-7.7); Neutrophils % (A) 63 %; Platelet Count 204 k/uL (150-450); RBC 3.79 m/uL (3.80-5.40); RDW 13.1 % (11.5-15.5); WBC 4.9 k/uL (3.8-10.6)
[2021-09-26 17:48] LABS: ALT 18 U/L (4-34); AST 23 U/L (14-36); African American GFR (CKD) >90 (>60 ml/min/1.73 sqM); Alkaline Phosphatase 82 U/L (38-126); Amylase 60 U/L (30-110); Anion Gap 6 mmol/L; Blood Urea Nitrogen 12 mg/dL (7-17); Calcium 9.3 mg/dL (8.4-10.2); Carbon Dioxide 25 mmol/L (22-30); Chloride 106 mmol/L (98-107); Glucose 96 mg/dL (74-99); Lipase 38 U/L (23-300); Non-African American GFR(CKD) >90 (>60 ml/min/1.73 sqM); Potassium 4.3 mmol/L (3.5-5.1); Sodium 137 mmol/L (137-145); Total Bilirubin 0.8 mg/dL (0.2-1.3); Total Protein 6.9 g/dL (6.3-8.2)
[2021-09-26] MEDS ORDERED: ONDANSETRON 4 MG/2 ML VIAL IVP STA (18:54)
[2021-09-26] MEDS ORDERED: ACETAMINOPHEN TAB 500 MG TAB PO STA (18:57)
--- NOTE | 2021-09-26 19:24 | ED ---
Abdominal Pain HPI - General Chief Complaint: Abdominal Pain Stated Complaint: Pelvic Pain Time Seen by Provider: 09/26/21 18:09 Source: patient Mode of arrival: wheelchair Limitations: no limitations - History of Present Illness Initial Comments: Physical 31-year-old female with past medical history of left ovarian cyst, hysterectomy, right-sided oophorectomy who presents to the emergency department with chief complaint of lower abdominal pain. Patient was seen on 09/21/21 similar symptoms. At this time ultrasound was negative for left ovarian torsi on. Today patient reports that the pain starts in the left lower quadrant and is a stabbing in nature toward the right lower quadrant. Patient reports nausea but no vomiting. 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 She has no other concerns at this time including fever, chills, shortness of breath, chest pain, diarrhea, urination. - Related Data Home Medications Medication Instructions Recorded Confirmed FLUoxetine HCL [PROzac] 10 mg PO HS 05/11/21 09/21/21 Omeprazole [PriLOSEC] 40 mg PO HS 05/11/21 09/21/21 Naproxen [Naprosyn] 375 mg PO BID PRN 09/19/21 09/21/21 Allergies Allergy/AdvReac Type Severity Reaction Status Date / Time adhesive tape Allergy Rash/Hives Verified 09/26/21 14:59 aloe vera Allergy Rash/Hives Verified 09/26/21 14:59 azithromycin Allergy Rash/Hives Verified 09/26/21 14:59 cephalexin Allergy Rash/Hives Verified 09/26/21 14:59 metronidazole [From Flagyl] Allergy Rash/Hives Verified 09/26/21 14:59 Penicillins Allergy Rash/Hives Verified 09/26/21 14:59 sulfamethoxazole Allergy Rash/Hives Verified 09/26/21 14:59 [From Bactrim] trimethoprim [From Bactrim] Allergy Rash/Hives Verified 09/26/21 14:59 alprazolam [From Xanax] AdvReac MAKES Verified 09/26/21 14:59 PARANOID dicyclomine [From Bentyl] AdvReac constipatio Verified 09/26/21 14:59 n Review of Systems ROS Statement: Those systems with pertinent positive or pertinent negative responses have been documented in the HPI. ROS Other: All systems not noted in ROS Statement are negative. Past Medical History Past Medical History: Blood Disorder, GERD/Reflux Additional Past Medical History / Comment(s): Endometriosis, polycystic ovarian syndrome. IRON DEFICIENCY ANEMIA. Stomach Ulcer. ovarian cyst History of Any Multi-Drug Resistant Organisms: None Reported Past Surgical History: Ablation, Section, Cholecystectomy, Hysterectomy, Tubal Ligation, Uterine Ablation Additional Past Surgical History / Comment(s): Laparoscopy X2, Section X3. Right ovary and right tube removed - 2019. cyst removed from chest. AUG 2020 - ADHESION REMOVAL FROM PAST . Vaginal. pelvic biopsy 05/11. PCOS Past Anesthesia/Blood Transfusion Reactions: No Reported Reaction Past Psychological History: Anxiety, Depression Smoking Status: Never smoker Past Alcohol Use History: None Reported Past Drug Use History: None Reported - Past Family History Mother Family Medical History: Hyperlipidemia Additional Family Medical History / Comment(s): Depression and anxiety. General Exam Limitations: no limitations General appearance: alert, in no apparent distress Eye exam: Present: normal appearance, PERRL, EOMI. Absent: scleral icterus, co njunctival injection, periorbital swelling Respiratory exam: Present: normal lung sounds bilaterally. Absent: respiratory distress, wheezes, rales, rhonchi, stridor Cardiovascular Exam: Present: regular rate, normal rhythm, normal heart sounds. Absent: systolic murmur, diastolic murmur, rubs, gallop, clicks GI/Abdominal exam: Present: soft, normal bowel sounds. Absent: distended, tenderness, guarding, rebound, rigid Neurological exam: Present: alert, oriented X3, CN II-XII intact Psychiatric exam: Present: normal affect, normal mood Skin exam: Present: warm, dry, intact, normal color. Absent: rash Course Vital Signs 09/26/21 09/26/21 14:52 19:59 Temperature 98.0 F Pulse Rate 106 H 92 Respiratory 20 22 Rate Blood Pressure 129/72 126/76 O2 Sat by Pulse 100 100 Oximetry Medical Decision Making - Medical Decision Making This is a 31-year-old female who presents with lower abdominal pain thorough history and examination were performed. Patient is afebrile. She is tachycardic at 106. Laboratory studies are unremarkable. Repeat pulse is 92. Toradol and Zofran were ordered. Patient and I discussed in depth that she has had numerous abdominal CT scans in the past several months as well as multiple ultrasounds. Before receiving Toradol patient expresses to me that the Toradol did not work and she requested morphine. I discussed the risks versus benefits of repeat narcotic use in the emergency department and that today I am uncomfortable giving patient opioid medication. Patient was strongly encouraged to follow-up with her welding production supervisor and primary care provider which we previously spoke about when I evaluated her during her last visit on 09/21/21. Patient reports that she does not have a primary care provider. She was referred to a primary care provider. Return parameters discussed. She verba griseles understanding. Upon discharge patient does request to speak to Dr. Shelton. Dr. Shelton reiterates that the patient has underwent tremendous radiation due to repeat abdominal CT scans such a short time period. Dr. Shelton told patient that she needs to follow- up with primary care or gynecology as consistent narcotic medication in the emergency department is not solving her abdominal issues. Dr. Shelton is my attending. - Lab Data Result diagrams: 09/26/21 17:26 09/26/21 17:26 Lab Results 09/26/21 09/26/21 09/26/21 Range/Units 17:26 17:26 19:00 WBC 4.9 (3.8-10.6) k/uL RBC 3.79 L (3.80-5.40) m/uL Hgb 11.9 (11.4-16.0) gm/dL Hct 35.2 (34.0-46.0) % MCV 92.8 (80.0-100.0) fL MCH 31.3 (25.0-35.0) pg MCHC 33.7 (31.0-37.0) g/dL RDW 13.1 (11.5-15.5) % Plt Count 204 (150-450) k/uL MPV 8.3 Neutrophils % 63 % Lymphocytes % 29 % Monocytes % 5 % Eosinophils % 1 % Basophils % 0 % Neutrophils # 3.1 (1.3-7.7) k/uL Lymphocytes # 1.4 (1.0-4.8) k/uL Monocytes # 0.3 (0-1.0) k/uL Eosinophils # 0.0 (0-0.7) k/uL Basophils # 0.0 (0-0.2) k/uL Sodium 137 (137-145) mmol/L Potassium 4.3 (3.5-5.1) mmol/L Chloride 106 (98-107) mmol/L Carbon Dioxide 25 (22-30) mmol/L Anion Gap 6 mmol/L BUN 12 (7-17) mg/dL Creatinine 0.74 (0.52-1.04) mg/dL Est GFR (CKD-EPI)AfAm >90 (>60 ml/min/1.73 sqM) Est GFR (CKD-EPI)NonAf >90 (>60 ml/min/1.73 sqM) Glucose 96 (74-99) mg/dL Calcium 9.3 (8.4-10.2) mg/dL Total Bilirubin 0.8 (0.2-1.3) mg/dL AST 23 (14-36) U/L ALT 18 (4-34) U/L Alkaline Phosphatase 82 (38-126) U/L Total Protein 6.9 (6.3-8.2) g/dL Albumin 4.0 (3.5-5.0) g/dL Amylase 60 (30-110) U/L Lipase 38 (23-300) U/L Urine Color Light Yellow Urine Appearance Clear (Clear) Urine pH 7.0 (5.0-8.0) Ur Specific [place] 1.013 (1.001-1.035) Urine Protein Negative (Negative) Urine Glucose (UA) Negative (Negative) Urine Ketones Negative (Negative) Urine Blood Negative (Negative) Urine Nitrite Negative (Negative) Urine Bilirubin Negative (Negative) Urine Urobilinogen 2.0 (<2.0) mg/dL Ur Leukocyte Esterase Negative (Negative) Urine HCG, Qual (Not Detectd) 09/26/21 Range/Units 19:00 WBC (3.8-10.6) k/uL RBC (3.80-5.40) m/uL Hgb (11.4-16.0) gm/dL Hct (34.0-46.0) % MCV (80.0-100.0) fL MCH (25.0-35.0) pg MCHC (31.0-37.0) g/dL RDW (11.5-15.5) % Plt Count (150-450) k/uL MPV Neutrophils % % Lymphocytes % % Monocytes % % Eosinophils % % Basophils % % Neutrophils # (1.3-7.7) k/uL Lymphocytes # (1.0-4.8) k/uL Monocytes # (0-1.0) k/uL Eosinophils # (0-0.7) k/uL Basophils # (0-0.2) k/uL Sodium (137-145) mmol/L Potassium (3.5-5.1) mmol/L Chloride (98-107) mmol/L Carbon Dioxide (22-30) mmol/L Anion Gap mmol/L BUN (7-17) mg/dL Creatinine (0.52-1.04) mg/dL Est GFR (CKD-EPI)AfAm (>60 ml/min/1.73 sqM) Est GFR (CKD-EPI)NonAf (>60 ml/min/1.73 sqM) Glucose (74-99) mg/dL Calcium (8.4-10.2) mg/dL Total Bilirubin (0.2-1.3) mg/dL AST (14-36) U/L ALT (4-34) U/L Alkaline Phosphatase (38-126) U/L Total Protein (6.3-8.2) g/dL Albumin (3.5-5.0) g/dL Amylase (30-110) U/L Lipase (23-300) U/L Urine Color Urine Appearance (Clear) Urine pH (5.0-8.0) Ur Specific [place] (1.001-1.035) Urine Protein (Negative) Urine Glucose (UA) (Negative) Urine Ketones (Negative) Urine Blood (Negative) Urine Nitrite (Negative) Urine Bilirubin (Negative) Urine Urobilinogen (<2.0) mg/dL Ur Leukocyte Esterase (Negative) Urine HCG, Qual Not Detected (Not Detectd) Disposition Clinical Impression: Abdominal pain Disposition: HOME SELF-CARE Condition: Good Instructions (If sedation given, give patient instructions): Abdominal Pain (ED) Additional Instructions: Please follow-up with your primary care provider and welding production supervisor at earliest available appointment. Return to the emergency department if you experience new, concerning, or worsening symptoms. Is patient prescribed a controlled substance at d/c from ED?: No Referrals: None,Stated [Primary Care Provider] - 1-2 days Emory Mcnamara MD [REFERRING] - 1-2 days Time of Disposition: 19:36
[2021-09-26] MEDS ORDERED: KETOROLAC 15 MG/ML 1 ML VIAL IM STA (19:30)
[2021-09-26 19:31] LABS: Appearance,Urine Clear (Clear); Bilirubin,Urine Negative (Negative); Blood,Urine Negative (Negative); Color,Urine Light Yellow; Glucose,Urine (UA) Negative (Negative); Ketones,Urine Negative (Negative); Leukocyte Esterase,Urine Negative (Negative); Nitrite,Urine Negative (Negative); Protein,Urine Negative (Negative); Specific Gravity,Urine 1.013 (1.001-1.035)
[2021-09-26] MEDS ORDERED: ONDANSETRON ODT 4 MG TAB PO STA (19:49)
[2021-09-26 20:14] VITALS: BP 126/76; PULSE 92; RESP 22
== END 2021-09-26 20:14 | disposition home or self-care (01) ==
LOC: EC 14:13
DX: R10.31 Right lower quadrant pain (principal); K21.9 Gastro-esophageal reflux disease without esophagitis; Z79.890 Hormone replacement therapy; Z88.1 Allergy status to other antibiotic agents; Z88.0 Allergy status to penicillin; Z88.2 Allergy status to sulfonamides
CPT/HCPCS: 36415; 80053; 82150; 83690; 85025; 81003; 81025; 99284; 96372; J1885

== ENCOUNTER 2021-11-21 17:25 | Emergency (ER) | payer OTHER ==
[2021-11-21 17:34] VITALS: BP 122/82; PULSE 90; RESP 18; TEMP 98
[2021-11-21] MEDS ORDERED: KETOROLAC 15 MG/ML 1 ML VIAL IVP STA (18:31)
--- NOTE | 2021-11-21 18:36 | ED ---
Back Pain HPI - General Chief Complaint: Back Pain/Injury Stated Complaint: Back Pain Time Seen by Provider: 11/21/21 18:25 Source: patient, RN notes reviewed, old records reviewed Limitations: no limitations - History of Present Illness Initial Comments: 31-year-old female presents with bilateral flank pain for 3 weeks. Patient sitting upright and crosslegged on the bed. She went to urgent care 3 weeks ago for this pain and they tested her urine as she states this pain seems similar to her previous kidney stones and was told no evidence of blood or infection. Patient states she does not have a primary care doctor and the pain has continued to get worse so she came to the emergency room. She denies any fevers or nausea and vomiting. No bowel or bladder incontinence. States that she tried Tylenol and Motrin at home with no relief. MD Complaint: back pain -: week(s) (3) Similar Symptoms Previously: Yes (similar to kidney stone pain) Severity scale (1-10): 8 Quality: sharp Consistency: constant Improves With: none Context: unknown Associated Symptoms: denies other symptoms Treatments Prior to Arrival: NSAIDS, acetaminophen - Related Data Home Medications Medication Instructions Recorded Confirmed FLUoxetine HCL [PROzac] 10 mg PO HS 05/11/21 09/26/21 Omeprazole [PriLOSEC] 40 mg PO HS 05/11/21 09/26/21 Naproxen [Naprosyn] 375 mg PO BID PRN 09/19/21 09/26/21 Allergies Allergy/AdvReac Type Severity Reaction Status Date / Time adhesive tape Allergy Rash/Hives Verified 11/21/21 17:34 aloe vera Allergy Rash/Hives Verified 11/21/21 17:34 azithromycin Allergy Rash/Hives Verified 11/21/21 17:34 cephalexin Allergy Rash/Hives Verified 11/21/21 17:34 metronidazole [From Flagyl] Allergy Rash/Hives Verified 11/21/21 17:34 Penicillins Allergy Rash/Hives Verified 11/21/21 17:34 sulfamethoxazole Allergy Rash/Hives Verified 11/21/21 17:34 [From Bactrim] trimethoprim [From Bactrim] Allergy Rash/Hives Verified 11/21/21 17:34 alprazolam [From Xanax] AdvReac MAKES Verified 11/21/21 17:34 PARANOID dicyclomine [From Bentyl] AdvReac constipatio Verified 11/21/21 17:34 n Review of Systems ROS Statement: Those systems with pertinent positive or pertinent negative responses have been documented in the HPI. ROS Other: All systems not noted in ROS Statement are negative. Past Medical History Past Medical History: Blood Disorder, GERD/Reflux Additional Past Medical History / Comment(s): Endometriosis, polycystic ovarian syndrome. IRON DEFICIENCY ANEMIA. Stomach Ulcer. ovarian cyst History of Any Multi-Drug Resistant Organisms: None Reported Past Surgical History: Ablation, Section, Cholecystectomy, Hysterectomy, Tubal Ligation, Uterine Ablation Additional Past Surgical History / Comment(s): Laparoscopy X2, Section X3. Right ovary and right tube removed - 2019. cyst removed from chest. AUG 2020 - ADHESION REMOVAL FROM PAST . Vaginal. pelvic biopsy 05/11. PCOS Past Anesthesia/Blood Transfusion Reactions: No Reported Reaction Past Psychological History: Anxiety, Depression Smoking Status: Never smoker Past Alcohol Use History: None Reported Past Drug Use History: None Reported - Past Family History Mother Family Medical History: Hyperlipidemia Additional Family Medical History / Comment(s): Depression and anxiety. General Exam Limitations: no limitations General appearance: alert, in no apparent distress Head exam: Present: atraumatic ENT exam: Present: mucous membranes moist Respiratory exam: Present: normal lung sounds bilaterally. Absent: respiratory distress, accessory muscle use Cardiovascular Exam: Present: regular rate GI/Abdominal exam: Present: soft. Absent: distended, tenderness Extremities exam: Present: normal capillary refill. Absent: pedal edema Back exam: Present: normal inspection, tenderness (pain To light touch bilateral flanks), CVA tenderness (R), CVA tenderness (L), paraspinal tenderness (Bilateral lumbar spine). Absent: rash noted Neurological exam: Present: alert, oriented X3 Psychiatric exam: Present: normal affect, normal mood Skin exam: Present: warm, dry, intact, normal color. Absent: cyanosis, diaphoretic Course Vital Signs 11/21/21 17:32 Temperature 98 F Pulse Rate 90 Respiratory 18 Rate Blood Pressure 122/82 O2 Sat by Pulse 99 Oximetry Medical Decision Making - Medical Decision Making Patient has had multiple ultrasounds and CAT scans for chronic abdominal pain. Today patient's urine is clear and no signs of infection, labs are unremarkable. Abdomen is soft and nontender. Patient has been afebrile. Vital signs are stable. The cause of the patient's pain for the past 3 weeks is uncertain at this time. She was directed to follow up with primary care doctor for continuation of care. Take Tylenol and Motrin as needed for pain in addition to topical pain relievers like Biofreeze. Also directed to try warm moist heat applications. She was instructed to return to the emergency room for any new or concerning symptoms especially right lower quadrant pain, fevers or persistent nausea vomiting. Case is discussed with Dr. Shelton. - Lab Data Result diagrams: 11/21/21 19:03 11/21/21 19: Lab Results 11/21/21 11/21/21 11/21/21 Range/Units 19: 19: 19: WBC 6.4 (3.8-10.6) k/uL RBC 3.84 (3.80-5.40) m/uL Hgb 12.0 (11.4-16.0) gm/dL Hct 35.3 (34.0-46.0) % MCV 92.1 (80.0-100.0) fL MCH 31.2 (25.0-35.0) pg MCHC 33.8 (31.0-37.0) g/dL RDW 14.0 (11.5-15.5) % Plt Count 264 (150-450) k/uL MPV 7.5 Neutrophils % 71 % Lymphocytes % 22 % Monocytes % 4 % Eosinophils % 0 % Basophils % 0 % Neutrophils # 4.5 (1.3-7.7) k/uL Lymphocytes # 1.4 (1.0-4.8) k/uL Monocytes # 0.3 (0-1.0) k/uL Eosinophils # 0.0 (0-0.7) k/uL Basophils # 0.0 (0-0.2) k/uL Sodium 136 L (137-145) mmol/L Potassium 4.4 (3.5-5.1) mmol/L Chloride 105 (98-107) mmol/L Carbon Dioxide 24 (22-30) mmol/L Anion Gap 7 mmol/L BUN 10 (7-17) mg/dL Creatinine 0.78 (0.52-1.04) mg/dL Est GFR (CKD-EPI)AfAm >90 (>60 ml/min/1.73 sqM) Est GFR (CKD-EPI)NonAf >90 (>60 ml/min/1.73 sqM) Glucose 93 (74-99) mg/dL Plasma Lactic Acid S[place] (0.7-2.0) mmol/L Calcium 8.9 (8.4-10.2) mg/dL Total Bilirubin 0.7 (0.2-1.3) mg/dL AST 27 (14-36) U/L ALT 30 (4-34) U/L Alkaline Phosphatase 102 (38-126) U/L C-Reactive Protein 1.5 H (<1.0) mg/dL Total Protein 6.8 (6.3-8.2) g/dL Albumin 3.7 (3.5-5.0) g/dL Urine Color Yellow Urine Appearance Clear (Clear) Urine pH 6.0 (5.0-8.0) Ur Specific [place] 1.030 (1.001-1.035) Urine Protein Trace H (Negative) Urine Glucose (UA) Negative (Negative) Urine Ketones Negative (Negative) Urine Blood Negative (Negative) Urine Nitrite Negative (Negative) Urine Bilirubin Negative (Negative) Urine Urobilinogen 2.0 (<2.0) mg/dL Ur Leukocyte Esterase Negative (Negative) 11/21/21 Range/Units 19:03 WBC (3.8-10.6) k/uL RBC (3.80-5.40) m/uL Hgb (11.4-16.0) gm/dL Hct (34.0-46.0) % MCV (80.0-100.0) fL MCH (25.0-35.0) pg MCHC (31.0-37.0) g/dL RDW (11.5-15.5) % Plt Count (150-450) k/uL MPV Neutrophils % % Lymphocytes % % Monocytes % % Eosinophils % % Basophils % % Neutrophils # (1.3-7.7) k/uL Lymphocytes # (1.0-4.8) k/uL Monocytes # (0-1.0) k/uL Eosinophils # (0-0.7) k/uL Basophils # (0-0.2) k/uL Sodium (137-145) mmol/L Potassium (3.5-5.1) mmol/L Chloride (98-107) mmol/L Carbon Dioxide (22-30) mmol/L Anion Gap mmol/L BUN (7-17) mg/dL Creatinine (0.52-1.04) mg/dL Est GFR (CKD-EPI)AfAm (>60 ml/min/1.73 sqM) Est GFR (CKD-EPI)NonAf (>60 ml/min/1.73 sqM) Glucose (74-99) mg/dL Plasma Lactic Acid S[place] 0.7 (0.7-2.0) mmol/L Calcium (8.4-10.2) mg/dL Total Bilirubin (0.2-1.3) mg/dL AST (14-36) U/L ALT (4-34) U/L Alkaline Phosphatase (38-126) U/L C-Reactive Protein (<1.0) mg/dL Total Protein (6.3-8.2) g/dL Albumin (3.5-5.0) g/dL Urine Color Urine Appearance (Clear) Urine pH (5.0-8.0) Ur Specific [place] (1.001-1.035) Urine Protein (Negative) Urine Glucose (UA) (Negative) Urine Ketones (Negative) Urine Blood (Negative) Urine Nitrite (Negative) Urine Bilirubin (Negative) Urine Urobilinogen (<2.0) mg/dL Ur Leukocyte Esterase (Negative) Disposition Clinical Impression: Back pain Disposition: HOME SELF-CARE Condition: Good Instructions (If sedation given, give patient instructions): Back Pain (ED) Additional Instructions: Follow-up with your primary care doctor next week. Continue taking Tylenol and or Motrin as needed for pain. You can use [id number] icy hot or Biofreeze or other topical pain relievers. Warm moist heat may help your pain as well. Is patient prescribed a controlled substance at d/c from ED?: No Referrals: Emory Mcnamara MD [REFERRING] - 1-2 days None,Stated [Primary Care Provider] - 1-2 days Duarte Pedro MD [REFERRING] - 1-2 days Time of Disposition: 19:54
[2021-11-21 19:16] LABS: Basophils % (A) 0 %; Eosinophils % (A) 0 %; HCT 35.3 % (34.0-46.0); Lymphocytes # (A) 1.4 k/uL (1.0-4.8); Lymphocytes % (A) 22 %; MCH 31.2 pg (25.0-35.0); MCHC 33.8 g/dL (31.0-37.0); MCV 92.1 fL (80.0-100.0); Mean Platelet Volume 7.5; Monocytes # (A) 0.3 k/uL (0-1.0); Monocytes % (A) 4 %; Neutrophils # (A) 4.5 k/uL (1.3-7.7); Neutrophils % (A) 71 %; Platelet Count 264 k/uL (150-450); RBC 3.84 m/uL (3.80-5.40); WBC 6.4 k/uL (3.8-10.6)
[2021-11-21 19:17] LABS: Appearance,Urine Clear (Clear); Bilirubin,Urine Negative (Negative); Blood,Urine Negative (Negative); Color,Urine Yellow; Glucose,Urine (UA) Negative (Negative); Ketones,Urine Negative (Negative); Leukocyte Esterase,Urine Negative (Negative); Nitrite,Urine Negative (Negative); Protein,Urine Trace (Negative)
[2021-11-21 19:36] LABS: ALT 30 U/L (4-34); AST 27 U/L (14-36); African American GFR (CKD) >90 (>60 ml/min/1.73 sqM); Albumin 3.7 g/dL (3.5-5.0); Alkaline Phosphatase 102 U/L (38-126); Anion Gap 7 mmol/L; Blood Urea Nitrogen 10 mg/dL (7-17); C Reactive Protein 1.5 mg/dL (<1.0); Calcium 8.9 mg/dL (8.4-10.2); Carbon Dioxide 24 mmol/L (22-30); Chloride 105 mmol/L (98-107); Glucose 93 mg/dL (74-99); Non-African American GFR(CKD) >90 (>60 ml/min/1.73 sqM); Potassium 4.4 mmol/L (3.5-5.1); Sodium 136 mmol/L (137-145); Total Bilirubin 0.7 mg/dL (0.2-1.3); Total Protein 6.8 g/dL (6.3-8.2)
== END 2021-11-21 20:14 | disposition home or self-care (01) ==
LOC: EC 17:25
DX: M54.50 Low back pain, unspecified (principal); K21.9 Gastro-esophageal reflux disease without esophagitis; Z79.899 Other long term (current) drug therapy; Z91.048 Other nonmedicinal substance allergy status; Z91.09 Other allergy status, other than to drugs and biological substances; Z88.1 Allergy status to other antibiotic agents; Z88.0 Allergy status to penicillin; Z88.2 Allergy status to sulfonamides; Z88.3 Allergy status to other anti-infective agents
CPT/HCPCS: 36415; 80053; 83605; 85025; 86140; 81003; 99284; 96374; J1885

== ENCOUNTER 2021-12-02 16:09 | Emergency (ER) | payer OTHER ==
[2021-12-02 16:37] VITALS: TEMP 98.4
--- NOTE | 2021-12-02 19:08 | ED ---
General Adult HPI - General Chief complaint: Abdominal Pain Stated complaint: Pelvic Pain Time Seen by Provider: 12/02/21 18:58 Source: patient Mode of arrival: ambulatory Limitations: no limitations - History of Present Illness Initial comments: Patient presents to the ED with her friend for evaluation. Patient states that she has had left lower quadrant abdominal pain for the past week or so. Patient states that she has a history of PCOS and endometriosis, and she states that she has had similar pain episodes multiple times in the past. Patient states that she is being treated with oral contraceptive pills. Patient states that she has been taking naproxen for her pain without any relief. Patient states that she has had similar "flares" of her endometriosis of PCOS in the past. Patient admits to urinary frequency, but she states that she always has urinary frequency when she has these flares. Patient states that she has had a hysterec galdino and right oophorectomy. Patient denies trauma or injury, fever or chills, headache, focal neuro deficit, chest pain or pressure, dyspnea, cough or cold symptoms, upper abdominal pain, back or flank pain, nausea or vomiting, diarrhea or constipation, bloody or melanotic stool, dysuria, hematuria, vaginal bleeding, vaginal discharge, or any other symptoms or complaints. - Related Data Home Medications Medication Instructions Recorded Confirmed Naproxen 500 mg PO Q6H PRN 12/02/21 12/02/21 Omeprazole 20 mg PO HS 12/02/21 12/02/21 Vyfemia 1 tab PO HS 12/02/21 12/02/21 Allergies Allergy/AdvReac Type Severity Reaction Status Date / Time adhesive tape Allergy Rash/Hives Verified 12/02/21 19:18 aloe vera Allergy Rash/Hives Verified 12/02/21 19:18 azithromycin Allergy Rash/Hives Verified 12/02/21 19:18 cephalexin Allergy Rash/Hives Verified 12/02/21 19:18 metronidazole [From Flagyl] Allergy Rash/Hives Verified 12/02/21 19:18 Penicillins Allergy Rash/Hives Verified 12/02/21 19:18 sulfamethoxazole Allergy Rash/Hives Verified 12/02/21 19:18 [From Bactrim] trimethoprim [From Bactrim] Allergy Rash/Hives Verified 12/02/21 19:18 alprazolam [From Xanax] AdvReac MAKES Verified 12/02/21 19:18 PARANOID dicyclomine [From Bentyl] AdvReac constipatio Verified 12/02/21 19:18 n Review of Systems ROS Statement: Those systems with pertinent positive or pertinent negative responses have been documented in the HPI. ROS Other: All systems not noted in ROS Statement are negative. Past Medical History Past Medical History: Blood Disorder, GERD/Reflux Additional Past Medical History / Comment(s): Endometriosis, polycystic ovarian syndrome. IRON DEFICIENCY ANEMIA. Stomach Ulcer. ovarian cyst History of Any Multi-Drug Resistant Organisms: None Reported Past Surgical History: Ablation, Section, Cholecystectomy, Hysterectomy, Tubal Ligation, Uterine Ablation Additional Past Surgical History / Comment(s): Laparoscopy X2, Section X3. Right ovary and right tube removed - 2019. cyst removed from chest. AUG 2020 - ADHESION REMOVAL FROM PAST . Vaginal. pelvic biopsy 05/11. PCOS Past Anesthesia/Blood Transfusion Reactions: No Reported Reaction Past Psychological History: Anxiety, Depression Smoking Status: Never smoker Past Alcohol Use History: None Reported Past Drug Use History: None Reported - Past Family History Mother Family Medical History: Hyperlipidemia Additional Family Medical History / Comment(s): Depression and anxiety. General Exam Limitations: no limitations General appearance: alert, in no apparent distress Head exam: Present: atraumatic, normocephalic Eye exam: Present: normal appearance, EOMI ENT exam: Present: mucous membranes moist Respiratory exam: Present: normal lung sounds bilaterally. Absent: respiratory distress, wheezes, rales, rhonchi, stridor Cardiovascular Exam: Present: regular rate, normal rhythm, normal heart sounds, other (Normal radial pulses bilaterally) GI/Abdominal exam: Present: soft, normal bowel sounds, other (Mild left lower quadrant abdominal tenderness). Absent: distended, guarding, rebound Extremities exam: Absent: tenderness, pedal edema, calf tenderness Back exam: Absent: CVA tenderness (R), CVA tenderness (L) Neurological exam: Present: alert, oriented X3. Absent: motor sensory deficit Psychiatric exam: Present: normal affect, normal mood Skin exam: Present: warm, dry, intact, normal color Course Vital Signs 12/02/21 16:34 Temperature 98.4 F Pulse Rate 84 Respiratory 18 Rate Blood Pressure 125/75 O2 Sat by Pulse 99 Oximetry - Reevaluation(s) Reevaluation #1: 12/02/21 21:52 Patient states that her pain has improved with ED treatment, and she denies development of any new symptoms while in the ED. Patient's abdomen remains soft and without surgical signs on examination. Patient and friend are aware of the patient's test results, and patient feels comfortable being discharged home at this time. Patient was counseled about abdominal/pelvic pain and ovarian cysts. Patient was clearly explained return and follow-up instructions. Patient feels comfortable with this plan. Medical Decision Making - Medical Decision Making Patient's pelvic ultrasound shows a 12 mm left ovarian cyst without evidence of ovarian torsion. Patient is afebrile and without leukocytosis. Patient's labs are fairly unremarkable. Patient has a nonsurgical abdominal exam. I do not suspect an emergent medical or surgical condition at this time. Patient reports having similar pain episodes due to her PCOS and endometriosis in the past. Patient feels comfortable being discharged home at this time. Patient was instructed to follow up closely with her primary care provider, as well as her [employer] doctor. - Lab Data Result diagrams: 12/02/21 19:27 12/02/21 19:27 Lab Results 12/02/21 12/02/21 12/02/21 Range/Units 19:27 19:27 19:27 WBC 5.7 (3.8-10.6) k/uL RBC 3.80 (3.80-5.40) m/uL Hgb 11.5 (11.4-16.0) gm/dL Hct 34.8 (34.0-46.0) % MCV 91.7 (80.0-100.0) fL MCH 30.2 (25.0-35.0) pg MCHC 32.9 (31.0-37.0) g/dL RDW 13.2 (11.5-15.5) % Plt Count 234 (150-450) k/uL MPV 7.5 Neutrophils % 64 % Lymphocytes % 29 % Monocytes % 4 % Eosinophils % 0 % Basophils % 0 % Neutrophils # 3.6 (1.3-7.7) k/uL Lymphocytes # 1.6 (1.0-4.8) k/uL Monocytes # 0.2 (0-1.0) k/uL Eosinophils # 0.0 (0-0.7) k/uL Basophils # 0.0 (0-0.2) k/uL Sodium (137-145) mmol/L Potassium (3.5-5.1) mmol/L Chloride (98-107) mmol/L Carbon Dioxide (22-30) mmol/L Anion Gap mmol/L BUN (7-17) mg/dL Creatinine (0.52-1.04) mg/dL Est GFR (CKD-EPI)AfAm (>60 ml/min/1.73 sqM) Est GFR (CKD-EPI)NonAf (>60 ml/min/1.73 sqM) Glucose (74-99) mg/dL Calcium (8.4-10.2) mg/dL Total Bilirubin (0.2-1.3) mg/dL AST (14-36) U/L ALT (4-34) U/L Alkaline Phosphatase (38-126) U/L Total Protein (6.3-8.2) g/dL Albumin (3.5-5.0) g/dL Lipase (23-300) U/L Urine Color Yellow Urine Appearance Cloudy H (Clear) Urine pH 8.5 H (5.0-8.0) Ur Specific [place] 1.021 (1.001-1.035) Urine Protein Negative (Negative) Urine Glucose (UA) Negative (Negative) Urine Ketones Negative (Negative) Urine Blood Negative (Negative) Urine Nitrite Negative (Negative) Urine Bilirubin Negative (Negative) Urine Urobilinogen <2.0 (<2.0) mg/dL Ur Leukocyte Esterase Negative (Negative) Urine RBC <1 (0-5) /hpf Urine WBC 4 (0-5) /hpf Ur Squamous Epith Cells 1 (0-4) /hpf Amorphous Sediment Occasional H (None) /hpf Urine Bacteria Rare H (None) /hpf Urine Mucus Rare H (None) /hpf Urine HCG, Qual Not Detected (Not Detectd) 12/02/21 Range/Units 19:27 WBC (3.8-10.6) k/uL RBC (3.80-5.40) m/uL Hgb (11.4-16.0) gm/dL Hct (34.0-46.0) % MCV (80.0-100.0) fL MCH (25.0-35.0) pg MCHC (31.0-37.0) g/dL RDW (11.5-15.5) % Plt Count (150-450) k/uL MPV Neutrophils % % Lymphocytes % % Monocytes % % Eosinophils % % Basophils % % Neutrophils # (1.3-7.7) k/uL Lymphocytes # (1.0-4.8) k/uL Monocytes # (0-1.0) k/uL Eosinophils # (0-0.7) k/uL Basophils # (0-0.2) k/uL Sodium 138 (137-145) mmol/L Potassium 4.1 (3.5-5.1) mmol/L Chloride 106 (98-107) mmol/L Carbon Dioxide 24 (22-30) mmol/L Anion Gap 8 mmol/L BUN 12 (7-17) mg/dL Creatinine 0.84 (0.52-1.04) mg/dL Est GFR (CKD-EPI)AfAm >90 (>60 ml/min/1.73 sqM) Est GFR (CKD-EPI)NonAf >90 (>60 ml/min/1.73 sqM) Glucose 98 (74-99) mg/dL Calcium 9.1 (8.4-10.2) mg/dL Total Bilirubin 0.8 (0.2-1.3) mg/dL AST 19 (14-36) U/L ALT 15 (4-34) U/L Alkaline Phosphatase 90 (38-126) U/L Total Protein 6.8 (6.3-8.2) g/dL Albumin 4.0 (3.5-5.0) g/dL Lipase 38 (23-300) U/L Urine Color Urine Appearance (Clear) Urine pH (5.0-8.0) Ur Specific [place] (1.001-1.035) Urine Protein (Negative) Urine Glucose (UA) (Negative) Urine Ketones (Negative) Urine Blood (Negative) Urine Nitrite (Negative) Urine Bilirubin (Negative) Urine Urobilinogen (<2.0) mg/dL Ur Leukocyte Esterase (Negative) Urine RBC (0-5) /hpf Urine WBC (0-5) /hpf Ur Squamous Epith Cells (0-4) /hpf Amorphous Sediment (None) /hpf Urine Bacteria (None) /hpf Urine Mucus (None) /hpf Urine HCG, Qual (Not Detectd) - Radiology Data Pelvic ultrasound: No solid or cystic pelvic mass. Largest follicular cyst on the left ovary measures 12 mm. No free fluid. No evidence of ovarian torsion. Disposition Clinical Impression: Pelvic pain, Left ovarian cyst Disposition: HOME SELF-CARE Condition: Stable Instructions (If sedation given, give patient instructions): Ovarian Cyst (ED), Pelvic Pain in Women (ED) Additional Instructions: Return to the ER immediately should you develop new or worsening pain, a fever, vomiting, feeling dizzy or faint, shortness of breath, or new or worsening symptoms. Follow up closely with your primary care provider, as well as your [employer] doctor. Is patient prescribed a controlled substance at d/c from ED?: No Referrals: None,Stated [Primary Care Provider] - 1-2 days Paulino Roa MD [STAFF PHYSICIAN] - 1-2 days Time of Disposition: 21:55
[2021-12-02] MEDS ORDERED: HYDROmorphone 1 MG/ML 1 ML SYRINGE IM STA (19:12)
[2021-12-02] MEDS ORDERED: ONDANSETRON ODT 8 MG TAB.RAPDIS PO STA (19:12)
[2021-12-02 19:50] LABS: Basophils % (A) 0 %; Eosinophils % (A) 0 %; HCT 34.8 % (34.0-46.0); HGB 11.5 gm/dL (11.4-16.0); Lymphocytes # (A) 1.6 k/uL (1.0-4.8); Lymphocytes % (A) 29 %; MCH 30.2 pg (25.0-35.0); MCHC 32.9 g/dL (31.0-37.0); MCV 91.7 fL (80.0-100.0); Mean Platelet Volume 7.5; Monocytes # (A) 0.2 k/uL (0-1.0); Monocytes % (A) 4 %; Neutrophils # (A) 3.6 k/uL (1.3-7.7); Neutrophils % (A) 64 %; Platelet Count 234 k/uL (150-450); RDW 13.2 % (11.5-15.5); WBC 5.7 k/uL (3.8-10.6)
[2021-12-02 19:59] LABS: ALT 15 U/L (4-34); AST 19 U/L (14-36); African American GFR (CKD) >90 (>60 ml/min/1.73 sqM); Alkaline Phosphatase 90 U/L (38-126); Anion Gap 8 mmol/L; Blood Urea Nitrogen 12 mg/dL (7-17); Calcium 9.1 mg/dL (8.4-10.2); Carbon Dioxide 24 mmol/L (22-30); Chloride 106 mmol/L (98-107); Glucose 98 mg/dL (74-99); Lipase 38 U/L (23-300); Non-African American GFR(CKD) >90 (>60 ml/min/1.73 sqM); Potassium 4.1 mmol/L (3.5-5.1); Sodium 138 mmol/L (137-145); Total Bilirubin 0.8 mg/dL (0.2-1.3); Total Protein 6.8 g/dL (6.3-8.2)
[2021-12-02 20:18] LABS: Amorphous Sediment,Urine Occasional /hpf; Appearance,Urine Cloudy (Clear); Bacteria,Urine Rare /hpf; Bilirubin,Urine Negative (Negative); Blood,Urine Negative (Negative); Color,Urine Yellow; Glucose,Urine (UA) Negative (Negative); Ketones,Urine Negative (Negative); Leukocyte Esterase,Urine Negative (Negative); Mucus,Urine Rare /hpf; Nitrite,Urine Negative (Negative); PH, Urine 8.5 (5.0-8.0); Protein,Urine Negative (Negative); RBC,Urine <1 /hpf (0-5); Specific Gravity,Urine 1.021 (1.001-1.035); Squamous Epithelial Cell,Urine 1 /hpf (0-4); Urobilinogen,Urine <2.0 mg/dL (<2.0); WBC,Urine 4 /hpf (0-5)
--- NOTE | 2021-12-02 20:45 | US ---
EXAMINATION TYPE: US transvaginal DATE OF EXAM: 12/02/2021 COMPARISON: NONE CLINICAL HISTORY: Left lower pelvic pain. Pain partial hysterectomy left ovary only left. TECHNIQUE: Transvaginal (TV). EXAM MEASUREMENTS: Uterus: Surgically absent cm Endometrial Stripe: Surgically absent cm Right Ovary: Surgically absent cm Left Ovary: 2.3 x 1.5 x 1.9 cm 1. Uterus: Surgically absent 2. Endometrium: Surgically absent 3. Right Ovary: Surgically absent 4. Left Ovary: Follicles seen. Spectral, color and waveform doppler imaging shows good arterial and venous flow within the left ov patt; there is no evidence for ovarian torsion. 5. Bilateral Adnexa: wnl 6. Posterior cul-de-sac: wnl IMPRESSION: No solid or cystic pelvic mass. Largest follicular cyst on the left ovary measures 12 mm. No free flu id. No evidence of ovarian torsion.
[2021-12-02] MEDS ORDERED: KETOROLAC 15 MG/ML 1 ML VIAL IVP STA (21:47)
[2021-12-02 22:08] VITALS: BP 141/91; PULSE 61; RESP 16
== END 2021-12-02 22:07 | disposition home or self-care (01) ==
LOC: EC 16:09
DX: N83.202 Unspecified ovarian cyst, left side (principal); K21.9 Gastro-esophageal reflux disease without esophagitis; Z79.83 Long term (current) use of bisphosphonates; Z88.1 Allergy status to other antibiotic agents; Z88.0 Allergy status to penicillin; Z88.3 Allergy status to other anti-infective agents
CPT/HCPCS: 36415; 80053; 83690; 85025; 81001; 81025; 93975; 76830; 99284; 96372; 96374; J1170; J1885

== ENCOUNTER 2021-12-09 00:45 | Emergency (ER) | payer OTHER ==
[2021-12-09 00:50] VITALS: BP 130/83; PULSE 91; RESP 18; TEMP 98.6
[2021-12-09] MEDS ORDERED: MORPHINE SULFATE 4 MG/ML SYRINGE IV STA (03:51)
[2021-12-09] MEDS ORDERED: SODIUM CHLORIDE 0.9% 1,000 ML IV STA (03:51)
[2021-12-09] MEDS ORDERED: ONDANSETRON 4 MG/2 ML VIAL IVP STA (03:51)
--- NOTE | 2021-12-09 04:08 | ED ---
Abdominal Pain HPI - General Chief Complaint: Abdominal Pain Stated Complaint: Abdominal pain Time Seen by Provider: 12/09/21 04:07 Source: patient, RN notes reviewed, old records reviewed Mode of arrival: ambulatory Limitations: no limitations - History of Present Illness Initial Comments: This is a 31-year-old female DF for evaluation of abdominal pain. Patient does have significant concern regarding cause of her abdominal pain states she's had history of same before and this pain has been persistent. Patient has persistent nausea and no acute vomiting no travel history no sick contacts no other complaints patient is without fever without nausea without vomiting MD Complaint: abdominal pain -: hour(s), days(s) Location: LUQ Radiation: LUQ, L flank Migration to: suprapubic Severity: moderate Severity scale (1-10): 4 Quality: aching Consistency: constant Improves With: nothing Worsens With: nothing Associated Symptoms: nausea, vomiting, diarrhea Treatments Prior to Arrival: other (none) - Related Data Home Medications Medication Instructions Recorded Confirmed Naproxen 500 mg PO Q6H PRN 12/02/21 12/02/21 Omeprazole 20 mg PO HS 12/02/21 12/02/21 Vyfemia 1 tab PO HS 12/02/21 12/02/21 Allergies Allergy/AdvReac Type Severity Reaction Status Date / Time adhesive tape Allergy Rash/Hives Verified 12/09/21 00:50 aloe vera Allergy Rash/Hives Verified 12/09/21 00:50 azithromycin Allergy Rash/Hives Verified 12/09/21 00:50 cephalexin Allergy Rash/Hives Verified 12/09/21 00:50 metronidazole [From Flagyl] Allergy Rash/Hives Verified 12/09/21 00:50 Penicillins Allergy Rash/Hives Verified 12/09/21 00:50 sulfamethoxazole Allergy Rash/Hives Verified 12/09/21 00:50 [From Bactrim] trimethoprim [From Bactrim] Allergy Rash/Hives Verified 12/09/21 00:50 alprazolam [From Xanax] AdvReac MAKES Verified 12/09/21 00:50 PARANOID dicyclomine [From Bentyl] AdvReac constipatio Verified 12/09/21 00:50 n Review of Systems ROS Statement: Those systems with pertinent positive or pertinent negative responses have been documented in the HPI. ROS Other: All systems not noted in ROS Statement are negative. Past Medical History Past Medical History: Blood Disorder, GERD/Reflux Additional Past Medical History / Comment(s): Endometriosis, polycystic ovarian syndrome. IRON DEFICIENCY ANEMIA. Stomach Ulcer. ovarian cyst History of Any Multi-Drug Resistant Organisms: None Reported Past Surgical History: Ablation, Section, Cholecystectomy, Hysterectomy, Tubal Ligation, Uterine Ablation Additional Past Surgical History / Comment(s): Laparoscopy X2, Section X3. Right ovary and right tube removed - 2019. cyst removed from chest. AUG 2020 - ADHESION REMOVAL FROM PAST . Vaginal. pelvic biopsy 05/11. PCOS Past Anesthesia/Blood Transfusion Reactions: No Reported Reaction Past Psychological History: Anxiety, Depression Smoking Status: Never smoker Past Alcohol Use History: None Reported Past Drug Use History: None Reported - Past Family History Mother Family Medical History: Hyperlipidemia Additional Family Medical History / Comment(s): Depression and anxiety. General Exam Limitations: no limitations General appearance: alert, in no apparent distress Head exam: Present: atraumatic, normocephalic, normal inspection Eye exam: Present: normal appearance, PERRL, EOMI. Absent: scleral icterus, conjunctival injection, periorbital swelling ENT exam: Present: normal exam, mucous membranes moist Neck exam: Present: normal inspection. Absent: tenderness, meningismus, lymphadenopathy Respiratory exam: Present: normal lung sounds bilaterally. Absent: respiratory distress, wheezes, rales, rhonchi, stridor Cardiovascular Exam: Present: regular rate, normal rhythm, normal heart sounds. Absent: systolic murmur, diastolic murmur, rubs, gallop, clicks GI/Abdominal exam: Present: soft, normal bowel sounds. Absent: distended, tenderness, guarding, rebound, rigid Extremities exam: Present: normal inspection, full ROM, normal capillary refill. Absent: tenderness, pedal edema, joint swelling, calf tenderness Back exam: Present: normal inspection Neurological exam: Present: alert, oriented X3, CN II-XII intact Psychiatric exam: Present: normal affect, normal mood Skin exam: Present: warm, dry, intact, normal color. Absent: rash Course Vital Signs 12/09/21 00:47 Temperature 98.6 F Pulse Rate 91 Respiratory 18 Rate Blood Pressure 130/83 O2 Sat by Pulse 100 Oximetry - Reevaluation(s) Reevaluation #1: Medical record is reviewed Patient symptoms are dramatically improved here in the ER Patient informed of results and questions have been answered Medical Decision Making - Medical Decision Making 31 female with significant abdominal pain. No findings of abdominal pain here in the emergency department maybe ovarian cysts likely not causing abdominal pain. At this time he can be discharged home - Lab Data Result diagrams: 12/09/21 04:15 12/09/21 04:15 Lab Results 12/09/21 12/09/21 12/09/21 Range/Units 04:15 04:15 04:15 WBC 7.6 (3.8-10.6) k/uL RBC 4.03 (3.80-5.40) m/uL Hgb 11.9 (11.4-16.0) gm/dL Hct 37.2 (34.0-46.0) % MCV 92.3 (80.0-100.0) fL MCH 29.6 (25.0-35.0) pg MCHC 32.1 (31.0-37.0) g/dL RDW 13.4 (11.5-15.5) % Plt Count 253 (150-450) k/uL MPV 8.0 Neutrophils % 65 % Lymphocytes % 28 % Monocytes % 4 % Eosinophils % 0 % Basophils % 0 % Neutrophils # 5.0 (1.3-7.7) k/uL Lymphocytes # 2.1 (1.0-4.8) k/uL Monocytes # 0.3 (0-1.0) k/uL Eosinophils # 0.0 (0-0.7) k/uL Basophils # 0.0 (0-0.2) k/uL Sodium 138 (137-145) mmol/L Potassium 3.8 (3.5-5.1) mmol/L Chloride 105 (98-107) mmol/L Carbon Dioxide 26 (22-30) mmol/L Anion Gap 7 mmol/L BUN 14 (7-17) mg/dL Creatinine 0.88 (0.52-1.04) mg/dL Est GFR (CKD-EPI)AfAm >90 (>60 ml/min/1.73 sqM) Est GFR (CKD-EPI)NonAf 88 (>60 ml/min/1.73 sqM) Glucose 96 (74-99) mg/dL Calcium 9.3 (8.4-10.2) mg/dL Total Bilirubin 0.4 (0.2-1.3) mg/dL AST 22 (14-36) U/L ALT 14 (4-34) U/L Alkaline Phosphatase 91 (38-126) U/L Total Protein 7.4 (6.3-8.2) g/dL Albumin 4.2 (3.5-5.0) g/dL Amylase 74 (30-110) U/L Lipase 51 (23-300) U/L Urine Color Yellow Urine Appearance Clear (Clear) Urine pH 6.0 (5.0-8.0) Ur Specific [place] 1.037 H (1.001-1.035) Urine Protein 1+ H (Negative) Urine Glucose (UA) Negative (Negative) Urine Ketones Negative (Negative) Urine Blood Negative (Negative) Urine Nitrite Negative (Negative) Urine Bilirubin Negative (Negative) Urine Urobilinogen 2.0 (<2.0) mg/dL Ur Leukocyte Esterase Negative (Negative) Urine RBC 1 (0-5) /hpf Urine WBC 12 H (0-5) /hpf Ur Squamous Epith Cells 2 (0-4) /hpf Urine Bacteria Moderate H (None) /hpf Urine Mucus Many H (None) /hpf - Radiology Data Radiology results: report reviewed (CT head and pelvis does show ovarian cyst), image reviewed Disposition Clinical Impression: History of endometriosis, Abdominal pain, Left ovarian cyst, Abdominal pain of unknown etiology Disposition: HOME SELF-CARE Condition: Fair Instructions (If sedation given, give patient instructions): Abdominal Pain (ED ) Is patient prescribed a controlled substance at d/c from ED?: No Referrals: None,Stated [Primary Care Provider] - 1-2 days
[2021-12-09] MEDS ORDERED: HYDROmorphone 1 MG/ML 1 ML SYRINGE IVP STA (04:28)
[2021-12-09 04:34] LABS: Basophils % (A) 0 %; Eosinophils % (A) 0 %; HCT 37.2 % (34.0-46.0); HGB 11.9 gm/dL (11.4-16.0); Lymphocytes # (A) 2.1 k/uL (1.0-4.8); Lymphocytes % (A) 28 %; MCH 29.6 pg (25.0-35.0); MCHC 32.1 g/dL (31.0-37.0); MCV 92.3 fL (80.0-100.0); Monocytes # (A) 0.3 k/uL (0-1.0); Monocytes % (A) 4 %; Neutrophils % (A) 65 %; Platelet Count 253 k/uL (150-450); RBC 4.03 m/uL (3.80-5.40); RDW 13.4 % (11.5-15.5); WBC 7.6 k/uL (3.8-10.6)
[2021-12-09 04:41] LABS: Appearance,Urine Clear (Clear); Bacteria,Urine Moderate /hpf; Bilirubin,Urine Negative (Negative); Blood,Urine Negative (Negative); Color,Urine Yellow; Glucose,Urine (UA) Negative (Negative); Ketones,Urine Negative (Negative); Leukocyte Esterase,Urine Negative (Negative); Mucus,Urine Many /hpf; Nitrite,Urine Negative (Negative); Protein,Urine 1+ (Negative); RBC,Urine 1 /hpf (0-5); Specific Gravity,Urine 1.037 (1.001-1.035); Squamous Epithelial Cell,Urine 2 /hpf (0-4); WBC,Urine 12 /hpf (0-5)
[2021-12-09 04:57] LABS: ALT 14 U/L (4-34); AST 22 U/L (14-36); African American GFR (CKD) >90 (>60 ml/min/1.73 sqM); Albumin 4.2 g/dL (3.5-5.0); Alkaline Phosphatase 91 U/L (38-126); Amylase 74 U/L (30-110); Anion Gap 7 mmol/L; Blood Urea Nitrogen 14 mg/dL (7-17); Calcium 9.3 mg/dL (8.4-10.2); Carbon Dioxide 26 mmol/L (22-30); Chloride 105 mmol/L (98-107); Glucose 96 mg/dL (74-99); Lipase 51 U/L (23-300); Non-African American GFR(CKD) 88 (>60 ml/min/1.73 sqM); Potassium 3.8 mmol/L (3.5-5.1); Sodium 138 mmol/L (137-145); Total Bilirubin 0.4 mg/dL (0.2-1.3); Total Protein 7.4 g/dL (6.3-8.2)
[2021-12-09] MEDS ORDERED: traMADol 50 MG STARTER PACK 3 TAB BTL PO STA (05:22)
--- NOTE | 2021-12-09 05:54 | CT ---
EXAMINATION TYPE: CT abdomen pelvis w con DATE OF EXAM: 12/09/2021 COMPARISON: 09/19/2021 HISTORY: LLQ pain. nausea and vomiting. Sx: hyst, ezequiel, right ovary, c-sections CT DLP: 1104.5 mGycm Automated exposure control for dose reduction was used. CONTRAST: Performed with IV Contrast, patient injected with 100ml mL of Isovue 300. The lung bases are clear. No pleural effusion. Heart size is normal. No pericardial effusion. There i s hiatal hernia. Liver spleen pancreas appear intact. Bile ducts are not dilated. There are clips fro m cholecystectomy. There is no adrenal mass. Kidneys show satisfactory contrast opacification. There is no hydronephrosis. Ureters are not dilated. There is no retroperitoneal adenopathy. There is no in guinal hernia. Urinary bladder almost empty. There is no evidence of pelvic mass. Uterus is anteverte d. No free fluid in the pelvis. Appendix appears normal. There is periumbilical hernia that contains fat and measures 3 cm. The lumbar vertebrae have normal alignment. Posterior elements are intact. No compression fracture. B [place] pelvis is intact. The hip joints are intact. There is no mesenteric edema. No ascites or free air. No bowel obstruction. IMPRESSION: Normal appendix. Small hiatal hernia similar to old exam. No acute abnormality of the abdomen and pel vis. No adverse change compared to old exam.
[2021-12-09] MEDS ORDERED: HYDROmorphone 0.5 MG/0.5 ML SYRINGE IVP STA (05:59)
== END 2021-12-09 06:00 | disposition home or self-care (01) ==
LOC: EC 00:45
DX: N83.202 Unspecified ovarian cyst, left side (principal); N80.9 Endometriosis, unspecified; K21.9 Gastro-esophageal reflux disease without esophagitis; Z79.83 Long term (current) use of bisphosphonates; Z88.1 Allergy status to other antibiotic agents; Z88.0 Allergy status to penicillin; Z88.2 Allergy status to sulfonamides; Z88.6 Allergy status to analgesic agent; Z91.09 Other allergy status, other than to drugs and biological substances
CPT/HCPCS: 36415; 80053; 82150; 83690; 85025; 81001; 87086; 74177; 99284; 96374; 96375; 96376; 96361; J2405; J1170 ×2; Q9967

== ENCOUNTER 2021-12-15 21:32 | Emergency (ER) | payer OTHER ==
[2021-12-15 21:56] VITALS: TEMP 98.4
[2021-12-15 22:28] LABS: Appearance,Urine Clear (Clear); Bacteria,Urine Moderate /hpf; Bilirubin,Urine Negative (Negative); Blood,Urine Negative (Negative); Color,Urine Yellow; Glucose,Urine (UA) Negative (Negative); Hyaline Casts,Urine 3 /lpf (0-2); Ketones,Urine Trace (Negative); Leukocyte Esterase,Urine Negative (Negative); Mucus,Urine Few /hpf; Nitrite,Urine Negative (Negative); Protein,Urine 1+ (Negative); RBC,Urine 1 /hpf (0-5); Specific Gravity,Urine 1.033 (1.001-1.035); Squamous Epithelial Cell,Urine 2 /hpf (0-4); WBC,Urine 4 /hpf (0-5)
--- NOTE | 2021-12-15 22:35 | XR ---
EXAMINATION TYPE: XR KUB DATE OF EXAM: 12/15/2021 COMPARISON: 07/17/2021 HISTORY: Abdominal pain TECHNIQUE: FINDINGS: 2 views upright show no sign of intestinal obstruction or pneumoperitoneum. Fecal pattern i s normal. No evidence of a mass. There are clips from cholecystectomy. Lung bases are clear. Bowel ga s pattern is normal. IMPRESSION: Nonacute abdomen. No adverse change.
[2021-12-15 23:09] LABS: Basophils % (A) 0 %; Eosinophils % (A) 0 %; HGB 11.1 gm/dL (11.4-16.0); Lymphocytes # (A) 1.7 k/uL (1.0-4.8); Lymphocytes % (A) 28 %; MCH 29.9 pg (25.0-35.0); MCHC 32.6 g/dL (31.0-37.0); MCV 91.9 fL (80.0-100.0); Monocytes # (A) 0.3 k/uL (0-1.0); Monocytes % (A) 5 %; Neutrophils % (A) 66 %; Platelet Count 233 k/uL (150-450); RDW 13.3 % (11.5-15.5); WBC 6.1 k/uL (3.8-10.6)
[2021-12-15 23:22] LABS: ALT 16 U/L (4-34); AST 22 U/L (14-36); African American GFR (CKD) >90 (>60 ml/min/1.73 sqM); Albumin 3.9 g/dL (3.5-5.0); Alkaline Phosphatase 75 U/L (38-126); Amylase 60 U/L (30-110); Anion Gap 7 mmol/L; Blood Urea Nitrogen 11 mg/dL (7-17); Calcium 9.1 mg/dL (8.4-10.2); Carbon Dioxide 25 mmol/L (22-30); Chloride 105 mmol/L (98-107); Glucose 96 mg/dL (74-99); Lipase 25 U/L (23-300); Non-African American GFR(CKD) 89 (>60 ml/min/1.73 sqM); Potassium 4.3 mmol/L (3.5-5.1); Sodium 137 mmol/L (137-145); Total Bilirubin 0.6 mg/dL (0.2-1.3); Total Protein 6.9 g/dL (6.3-8.2)
[2021-12-16] MEDS ORDERED: MORPHINE SULFATE 4 MG/ML SYRINGE IM STA (02:50)
[2021-12-16] MEDS ORDERED: ONDANSETRON 4 MG/2 ML VIAL IM STA (02:50)
--- NOTE | 2021-12-16 02:52 | ED ---
Abdominal Pain HPI - General Chief Complaint: Abdominal Pain Stated Complaint: Abd Pain past 72 hours Time Seen by Provider: 12/16/21 02:42 Source: patient Mode of arrival: ambulatory Limitations: no limitations - History of Present Illness MD Complaint: abdominal pain -: hour(s) Location: LLQ Radiation: none Migration to: no migration Severity: severe Quality: burning Consistency: constant Improves With: other ( position) Worsens With: other (Standing) Associated Symptoms: nausea - Related Data Home Medications Medication Instructions Recorded Confirmed Naproxen 500 mg PO Q6H PRN 12/02/21 12/02/21 Omeprazole 20 mg PO HS 12/02/21 12/02/21 Vyfemia 1 tab PO HS 12/02/21 12/02/21 Allergies Allergy/AdvReac Type Severity Reaction Status Date / Time adhesive tape Allergy Rash/Hives Verified 12/15/21 21:54 aloe vera Allergy Rash/Hives Verified 12/15/21 21:54 azithromycin Allergy Rash/Hives Verified 12/15/21 21:54 cephalexin Allergy Rash/Hives Verified 12/15/21 21:54 metronidazole [From Flagyl] Allergy Rash/Hives Verified 12/15/21 21:54 Penicillins Allergy Rash/Hives Verified 12/15/21 21:54 sulfamethoxazole Allergy Rash/Hives Verified 12/15/21 21:54 [From Bactrim] trimethoprim [From Bactrim] Allergy Rash/Hives Verified 12/15/21 21:54 alprazolam [From Xanax] AdvReac MAKES Verified 12/15/21 21:54 PARANOID dicyclomine [From Bentyl] AdvReac constipatio Verified 12/15/21 21:54 n Review of Systems ROS Statement: Those systems with pertinent positive or pertinent negative responses have been documented in the HPI. ROS Other: All systems not noted in ROS Statement are negative. Constitutional: Denies: fever, chills Respiratory: Denies: cough, dyspnea Cardiovascular: Denies: chest pain, palpitations Gastrointestinal: Reports: abdominal pain, nausea. Denies: vomiting, diarrhea, constipation, melena, hematochezia Genitourinary: Denies: dysuria, hematuria Musculoskeletal: Denies: back pain Skin: Denies: rash Neurological: Denies: headache, weakness, numbness Past Medical History Past Medical History: Blood Disorder, GERD/Reflux Additional Past Medical History / Comment(s): Endometriosis, polycystic ovarian syndrome. IRON DEFICIENCY ANEMIA. Stomach Ulcer. ovarian cyst History of Any Multi-Drug Resistant Organisms: None Reported Past Surgical History: Ablation, Section, Cholecystectomy, Hysterectomy, Tubal Ligation, Uterine Ablation Additional Past Surgical History / Comment(s): Laparoscopy X2, Section X3. Right ovary and right tube removed - 2019. cyst removed from chest. AUG 2020 - ADHESION REMOVAL FROM PAST . Vaginal. pelvic biopsy 05/11. PCOS Past Anesthesia/Blood Transfusion Reactions: No Reported Reaction Past Psychological History: Anxiety, Depression Smoking Status: Never smoker Past Alcohol Use History: None Reported Past Drug Use History: None Reported - Past Family History Mother Family Medical History: Hyperlipidemia Additional Family Medical History / Comment(s): Depression and anxiety. General Exam Limitations: no limitations General appearance: alert, in no apparent distress Head exam: Present: atraumatic, normocephalic Eye exam: Present: normal appearance. Absent: scleral icterus, conjunctival injection Neck exam: Present: normal inspection Respiratory exam: Present: normal lung sounds bilaterally. Absent: respiratory distress, wheezes, rales, rhonchi, stridor Cardiovascular Exam: Present: regular rate, normal rhythm, normal heart sounds. Absent: systolic murmur, diastolic murmur, rubs, gallop GI/Abdominal exam: Present: soft. Absent: distended, tenderness, guarding, rebound, rigid, mass, pulsatile mass, hernia Extremities exam: Present: normal inspection, normal capillary refill. Absent: pedal edema, calf tenderness Back exam: Present: normal inspection. Absent: CVA tenderness (R), CVA tenderness (L) Neurological exam: Present: alert Skin exam: Present: warm, dry, intact, normal color. Absent: rash Course Vital Signs 12/15/21 12/16/21 21:54 03:00 Temperature 98.4 F Pulse Rate 96 79 Respiratory 16 14 Rate Blood Pressure 146/85 144/82 O2 Sat by Pulse 98 100 Oximetry Medical Decision Making - Lab Data Result diagrams: 12/15/21 20:55 12/15/21 20:55 Lab Results 12/15/21 12/15/21 12/15/21 Range/Units 20:55 20:55 21:57 WBC 6.1 (3.8-10.6) k/uL RBC 3.70 L (3.80-5.40) m/uL Hgb 11.1 L (11.4-16.0) gm/dL Hct 34.0 (34.0-46.0) % MCV 91.9 (80.0-100.0) fL MCH 29.9 (25.0-35.0) pg MCHC 32.6 (31.0-37.0) g/dL RDW 13.3 (11.5-15.5) % Plt Count 233 (150-450) k/uL MPV 8.0 Neutrophils % 66 % Lymphocytes % 28 % Monocytes % 5 % Eosinophils % 0 % Basophils % 0 % Neutrophils # 4.0 (1.3-7.7) k/uL Lymphocytes # 1.7 (1.0-4.8) k/uL Monocytes # 0.3 (0-1.0) k/uL Eosinophils # 0.0 (0-0.7) k/uL Basophils # 0.0 (0-0.2) k/uL Sodium 137 (137-145) mmol/L Potassium 4.3 (3.5-5.1) mmol/L Chloride 105 (98-107) mmol/L Carbon Dioxide 25 (22-30) mmol/L Anion Gap 7 mmol/L BUN 11 (7-17) mg/dL Creatinine 0.87 (0.52-1.04) mg/dL Est GFR (CKD-EPI)AfAm >90 (>60 ml/min/1.73 sqM) Est GFR (CKD-EPI)NonAf 89 (>60 ml/min/1.73 sqM) Glucose 96 (74-99) mg/dL Calcium 9.1 (8.4-10.2) mg/dL Total Bilirubin 0.6 (0.2-1.3) mg/dL AST 22 (14-36) U/L ALT 16 (4-34) U/L Alkaline Phosphatase 75 (38-126) U/L Total Protein 6.9 (6.3-8.2) g/dL Albumin 3.9 (3.5-5.0) g/dL Amylase 60 (30-110) U/L Lipase 25 (23-300) U/L Urine Color Urine Appearance (Clear) Urine pH (5.0-8.0) Ur Specific [place] (1.001-1.035) Urine Protein (Negative) Urine Glucose (UA) (Negative) Urine Ketones (Negative) Urine Blood (Negative) Urine Nitrite (Negative) Urine Bilirubin (Negative) Urine Urobilinogen (<2.0) mg/dL Ur Leukocyte Esterase (Negative) Urine RBC (0-5) /hpf Urine WBC (0-5) /hpf Ur Squamous Epith Cells (0-4) /hpf Urine Bacteria (None) /hpf Hyaline Casts (0-2) /lpf Urine Mucus (None) /hpf Urine HCG, Qual Not Detected (Not Detectd) 12/15/21 Range/Units 22:03 WBC (3.8-10.6) k/uL RBC (3.80-5.40) m/uL Hgb (11.4-16.0) gm/dL Hct (34.0-46.0) % MCV (80.0-100.0) fL MCH (25.0-35.0) pg MCHC (31.0-37.0) g/dL RDW (11.5-15.5) % Plt Count (150-450) k/uL MPV Neutrophils % % Lymphocytes % % Monocytes % % Eosinophils % % Basophils % % Neutrophils # (1.3-7.7) k/uL Lymphocytes # (1.0-4.8) k/uL Monocytes # (0-1.0) k/uL Eosinophils # (0-0.7) k/uL Basophils # (0-0.2) k/uL Sodium (137-145) mmol/L Potassium (3.5-5.1) mmol/L Chloride (98-107) mmol/L Carbon Dioxide (22-30) mmol/L Anion Gap mmol/L BUN (7-17) mg/dL Creatinine (0.52-1.04) mg/dL Est GFR (CKD-EPI)AfAm (>60 ml/min/1.73 sqM) Est GFR (CKD-EPI)NonAf (>60 ml/min/1.73 sqM) Glucose (74-99) mg/dL Calcium (8.4-10.2) mg/dL Total Bilirubin (0.2-1.3) mg/dL AST (14-36) U/L ALT (4-34) U/L Alkaline Phosphatase (38-126) U/L Total Protein (6.3-8.2) g/dL Albumin (3.5-5.0) g/dL Amylase (30-110) U/L Lipase (23-300) U/L Urine Color Yellow Urine Appearance Clear (Clear) Urine pH 6.0 (5.0-8.0) Ur Specific [place] 1.033 (1.001-1.035) Urine Protein 1+ H (Negative) Urine Glucose (UA) Negative (Negative) Urine Ketones Trace H (Negative) Urine Blood Negative (Negative) Urine Nitrite Negative (Negative) Urine Bilirubin Negative (Negative) Urine Urobilinogen 2.0 (<2.0) mg/dL Ur Leukocyte Esterase Negative (Negative) Urine RBC 1 (0-5) /hpf Urine WBC 4 (0-5) /hpf Ur Squamous Epith Cells 2 (0-4) /hpf Urine Bacteria Moderate H (None) /hpf Hyaline Casts 3 H (0-2) /lpf Urine Mucus Few H (None) /hpf Urine HCG, Qual (Not Detectd) Disposition Clinical Impression: Chronic pelvic pain in female Disposition: HOME SELF-CARE Condition: Good Instructions (If sedation given, give patient instructions): Pelvic Pain in Women (ED) Is patient prescribed a controlled substance at d/c from ED?: No Referrals: None,Stated [Primary Care Provider] - 1-2 days
[2021-12-16 04:02] VITALS: BP 115/78; PULSE 76; RESP 12
== END 2021-12-16 04:02 | disposition home or self-care (01) ==
LOC: EC 21:32
DX: G89.29 Other chronic pain (principal); R10.2 Pelvic and perineal pain; K21.9 Gastro-esophageal reflux disease without esophagitis; Z79.83 Long term (current) use of bisphosphonates; Z88.1 Allergy status to other antibiotic agents; Z88.0 Allergy status to penicillin; Z91.09 Other allergy status, other than to drugs and biological substances; Z88.2 Allergy status to sulfonamides; Z88.3 Allergy status to other anti-infective agents
CPT/HCPCS: 36415; 80053; 82150; 83690; 85025; 81001; 81025; 74018; 99284; 96372; J2270; J2405

== ENCOUNTER 2021-12-26 23:34 | Emergency (ER) | payer OTHER ==
[2021-12-27 05:06] LABS: Basophils % (A) 1 %; Eosinophils # (A) 0.1 k/uL (0-0.7); Eosinophils % (A) 1 %; HCT 35.8 % (34.0-46.0); HGB 11.9 gm/dL (11.4-16.0); Lymphocytes # (A) 2.5 k/uL (1.0-4.8); Lymphocytes % (A) 38 %; MCH 31.3 pg (25.0-35.0); MCHC 33.3 g/dL (31.0-37.0); MCV 93.9 fL (80.0-100.0); Monocytes # (A) 0.3 k/uL (0-1.0); Monocytes % (A) 5 %; Neutrophils # (A) 3.5 k/uL (1.3-7.7); Neutrophils % (A) 54 %; Platelet Count 228 k/uL (150-450); RBC 3.82 m/uL (3.80-5.40); WBC 6.5 k/uL (3.8-10.6)
[2021-12-27 05:21] LABS: ALT 24 U/L (4-34); AST 25 U/L (14-36); African American GFR (CKD) >90 (>60 ml/min/1.73 sqM); Alkaline Phosphatase 83 U/L (38-126); Amylase 69 U/L (30-110); Anion Gap 5 mmol/L; Blood Urea Nitrogen 11 mg/dL (7-17); Calcium 9.6 mg/dL (8.4-10.2); Carbon Dioxide 28 mmol/L (22-30); Chloride 105 mmol/L (98-107); Glucose 100 mg/dL (74-99); Lipase 58 U/L (23-300); Non-African American GFR(CKD) >90 (>60 ml/min/1.73 sqM); Potassium 3.7 mmol/L (3.5-5.1); Sodium 138 mmol/L (137-145); Total Bilirubin 0.3 mg/dL (0.2-1.3)
[2021-12-27 05:26] LABS: Appearance,Urine Cloudy (Clear); Bacteria,Urine Moderate /hpf; Bilirubin,Urine Negative (Negative); Blood,Urine Negative (Negative); Calcium Oxalate Crystals,Urine Few /hpf; Color,Urine Yellow; Glucose,Urine (UA) Negative (Negative); Ketones,Urine Negative (Negative); Leukocyte Esterase,Urine Trace (Negative); Mucus,Urine Occasional /hpf; Nitrite,Urine Negative (Negative); Protein,Urine Trace (Negative); RBC,Urine 1 /hpf (0-5); Specific Gravity,Urine 1.022 (1.001-1.035); Squamous Epithelial Cell,Urine 2 /hpf (0-4); Urobilinogen,Urine <2.0 mg/dL (<2.0); WBC,Urine 5 /hpf (0-5)
[2021-12-27] MEDS ORDERED: HYDROcodone/APAP 7.5-325MG 1 EACH TAB PO ONE (05:39)
[2021-12-27] MEDS ORDERED: IBUPROFEN 400 MG TAB PO STA (05:39)
--- NOTE | 2021-12-27 06:07 | ED ---
Abdominal Pain HPI - General Source: patient Mode of arrival: ambulatory Limitations: no limitations - History of Present Illness MD Complaint: abdominal pain -: days(s) Location: LLQ Radiation: none Migration to: no migration Severity: severe Quality: aching Consistency: constant Improves With: nothing Worsens With: nothing Associated Symptoms: denies other symptoms <Donal Carpio - Last Filed: 12/27/21 06:04> <Cali Rangel - Last Filed: 12/27/21 08:42> - General Chief Complaint: Abdominal Pain Stated Complaint: pelvic pain Time Seen by Provider: 12/27/21 04:39 - History of Present Illness Initial Comments: This patient is a 31-year-old woman with history of ovarian cysts and also endometriosis who presents to be evaluated for left lower quadrant pain that she states is very similar to previous cyst related pain. She states that she had seen her Oncologist during her last week and told her that she did have an ovarian cyst. She states that she told her if the pain did not improve with her current treatment he was probably going to perform LSO, removing her remaining ovary. Patient states that the pain did intensify over the course of last evening and tonight. No accompanying symptoms. No fever or chills. (Donal Carpio) - Related Data Home Medications Medication Instructions Recorded Confirmed Naproxen 500 mg PO Q6H PRN 12/02/21 12/02/21 Omeprazole 20 mg PO HS 12/02/21 12/02/21 Vyfemia 1 tab PO HS 12/02/21 12/02/21 Allergies Allergy/AdvReac Type Severity Reaction Status Date / Time adhesive tape Allergy Rash/Hives Verified 12/26/21 23:50 aloe vera Allergy Rash/Hives Verified 12/26/21 23:50 azithromycin Allergy Rash/Hives Verified 12/26/21 23:50 cephalexin Allergy Rash/Hives Verified 12/26/21 23:50 metronidazole [From Flagyl] Allergy Rash/Hives Verified 12/26/21 23:50 Penicillins Allergy Rash/Hives Verified 12/26/21 23:50 sulfamethoxazole Allergy Rash/Hives Verified 12/26/21 23:50 [From Bactrim] trimethoprim [From Bactrim] Allergy Rash/Hives Verified 12/26/21 23:50 alprazolam [From Xanax] AdvReac MAKES Verified 12/26/21 23:50 PARANOID dicyclomine [From Bentyl] AdvReac constipatio Verified 12/26/21 23:50 n Review of Systems ROS Other: All systems not noted in ROS Statement are negative. Constitutional: Denies: fever, chills Respiratory: Denies: cough, dyspnea Cardiovascular: Denies: chest pain, edema Gastrointestinal: Reports: abdominal pain. Denies: nausea, vomiting, diarrhea, constipation, melena, hematochezia Genitourinary: Denies: dysuria, frequency, hematuria Musculoskeletal: Denies: back pain Skin: Denies: rash Neurological: Denies: headache, weakness, numbness <Donal Carpio - Last Filed: 12/27/21 06:04> ROS Other: All systems not noted in ROS Statement are negative. <Cali Rangel - Last Filed: 12/27/21 08:42> ROS Statement: Those systems with pertinent positive or pertinent negative responses have been documented in the HPI. Past Medical History Past Medical History: Blood Disorder, GERD/Reflux Additional Past Medical History / Comment(s): Endometriosis, polycystic ovarian syndrome. IRON DEFICIENCY ANEMIA. Stomach Ulcer. ovarian cyst History of Any Multi-Drug Resistant Organisms: None Reported Past Surgical History: Ablation, Section, Cholecystectomy, Hysterectomy, Tubal Ligation, Uterine Ablation Additional Past Surgical History / Comment(s): Laparoscopy X2, Section X3. Right ovary and right tube removed - 2019. cyst removed from chest. AUG 2020 - ADHESION REMOVAL FROM PAST . Vaginal. pelvic biopsy 05/11. PCOS Past Anesthesia/Blood Transfusion Reactions: No Reported Reaction Past Psychological History: Anxiety, Depression Smoking Status: Never smoker Past Alcohol Use History: None Reported Past Drug Use History: None Reported - Past Family History Mother Family Medical History: Hyperlipidemia Additional Family Medical History / Comment(s): Depression and anxiety. <Donal Carpio - Last Filed: 12/27/21 06:04> General Exam Limitations: no limitations General appearance: alert, in no apparent distress Head exam: Present: atraumatic, normocephalic Eye exam: Present: normal appearance. Absent: scleral icterus, conjunctival injection Respiratory exam: Present: normal lung sounds bilaterally. Absent: respiratory distress, wheezes, rales, rhonchi, stridor Cardiovascular Exam: Present: regular rate, normal rhythm, normal heart sounds. Absent: systolic murmur, diastolic murmur, rubs, gallop GI/Abdominal exam: Present: soft, tenderness. Absent: distended, guarding, rebound, rigid, mass, pulsatile mass, hernia Extremities exam: Present: normal inspection, normal capillary refill. Absent: pedal edema, calf tenderness Back exam: Present: normal inspection. Absent: CVA tenderness (R), CVA tenderness (L) Neurological exam: Present: alert Skin exam: Present: warm, dry, intact, normal color. Absent: rash <Donal Carpio - Last Filed: 12/27/21 06:04> Course Vital Signs 12/26/21 12/27/21 12/27/21 23:50 05:48 07:30 Temperature 98.2 F 98.4 F Pulse Rate 97 89 69 Respiratory 16 18 18 Rate Blood Pressure 145/94 133/76 138/93 O2 Sat by Pulse 100 100 100 Oximetry 12/27/21 08:00 Temperature 97.9 F Pulse Rate 78 Respiratory 18 Rate Blood Pressure 133/79 O2 Sat by Pulse 100 Oximetry Medical Decision Making - Lab Data Result diagrams: 12/27/21 04:54 12/27/21 04:54 <Donal Carpio - Last Filed: 12/27/21 06:04> - Lab Data Result diagrams: 12/27/21 04:54 12/27/21 04:54 <Cali Rangel - Last Filed: 12/27/21 08:42> - Medical Decision Making 31-year-old female with acute on chronic lower abdominal pain, left-sided, known ovarian cyst patient reevaluated after shift change, still has some pain but is overall comfortable with stable vitals. Ultrasound showing a cyst with small amount of free fluid in the pelvis, no torsion, no other acute findings. Laboratory tests are unremarkable. Pain improved. She does have good outpat ient follow-up. (Cali Rangel) - Lab Data Lab Results 12/27/21 12/27/21 12/27/21 Range/Units 04:54 04:54 04:54 WBC 6.5 (3.8-10.6) k/uL RBC 3.82 (3.80-5.40) m/uL Hgb 11.9 (11.4-16.0) gm/dL Hct 35.8 (34.0-46.0) % MCV 93.9 (80.0-100.0) fL MCH 31.3 (25.0-35.0) pg MCHC 33.3 (31.0-37.0) g/dL RDW 13.0 (11.5-15.5) % Plt Count 228 (150-450) k/uL MPV 8.0 Neutrophils % 54 % Lymphocytes % 38 % Monocytes % 5 % Eosinophils % 1 % Basophils % 1 % Neutrophils # 3.5 (1.3-7.7) k/uL Lymphocytes # 2.5 (1.0-4.8) k/uL Monocytes # 0.3 (0-1.0) k/uL Eosinophils # 0.1 (0-0.7) k/uL Basophils # 0.0 (0-0.2) k/uL Sodium (137-145) mmol/L Potassium (3.5-5.1) mmol/L Chloride (98-107) mmol/L Carbon Dioxide (22-30) mmol/L Anion Gap mmol/L BUN (7-17) mg/dL Creatinine (0.52-1.04) mg/dL Est GFR (CKD-EPI)AfAm (>60 ml/min/1.73 sqM) Est GFR (CKD-EPI)NonAf (>60 ml/min/1.73 sqM) Glucose (74-99) mg/dL Calcium (8.4-10.2) mg/dL Total Bilirubin (0.2-1.3) mg/dL AST (14-36) U/L ALT (4-34) U/L Alkaline Phosphatase (38-126) U/L Total Protein (6.3-8.2) g/dL Albumin (3.5-5.0) g/dL Amylase (30-110) U/L Lipase (23-300) U/L Urine Color Yellow Urine Appearance Cloudy H (Clear) Urine pH 6.0 (5.0-8.0) Ur Specific [place] 1.022 (1.001-1.035) Urine Protein Trace H (Negative) Urine Glucose (UA) Negative (Negative) Urine Ketones Negative (Negative) Urine Blood Negative (Negative) Urine Nitrite Negative (Negative) Urine Bilirubin Negative (Negative) Urine Urobilinogen <2.0 (<2.0) mg/dL Ur Leukocyte Esterase Trace H (Negative) Urine RBC 1 (0-5) /hpf Urine WBC 5 (0-5) /hpf Ur Squamous Epith Cells 2 (0-4) /hpf Calcium Oxalate Crystal Few H (None) /hpf Urine Bacteria Moderate H (None) /hpf Urine Mucus Occasional H (None) /hpf Urine HCG, Qual Not Detected (Not Detectd) 12/27/21 Range/Units 04:54 WBC (3.8-10.6) k/uL RBC (3.80-5.40) m/uL Hgb (11.4-16.0) gm/dL Hct (34.0-46.0) % MCV (80.0-100.0) fL MCH (25.0-35.0) pg MCHC (31.0-37.0) g/dL RDW (11.5-15.5) % Plt Count (150-450) k/uL MPV Neutrophils % % Lymphocytes % % Monocytes % % Eosinophils % % Basophils % % Neutrophils # (1.3-7.7) k/uL Lymphocytes # (1.0-4.8) k/uL Monocytes # (0-1.0) k/uL Eosinophils # (0-0.7) k/uL Basophils # (0-0.2) k/uL Sodium 138 (137-145) mmol/L Potassium 3.7 (3.5-5.1) mmol/L Chloride 105 (98-107) mmol/L Carbon Dioxide 28 (22-30) mmol/L Anion Gap 5 mmol/L BUN 11 (7-17) mg/dL Creatinine 0.73 (0.52-1.04) mg/dL Est GFR (CKD-EPI)AfAm >90 (>60 ml/min/1.73 sqM) Est GFR (CKD-EPI)NonAf >90 (>60 ml/min/1.73 sqM) Glucose 100 H (74-99) mg/dL Calcium 9.6 (8.4-10.2) mg/dL Total Bilirubin 0.3 (0.2-1.3) mg/dL AST 25 (14-36) U/L ALT 24 (4-34) U/L Alkaline Phosphatase 83 (38-126) U/L Total Protein 7.0 (6.3-8.2) g/dL Albumin 4.0 (3.5-5.0) g/dL Amylase 69 (30-110) U/L Lipase 58 (23-300) U/L Urine Color Urine Appearance (Clear) Urine pH (5.0-8.0) Ur Specific [place] (1.001-1.035) Urine Protein (Negative) Urine Glucose (UA) (Negative) Urine Ketones (Negative) Urine Blood (Negative) Urine Nitrite (Negative) Urine Bilirubin (Negative) Urine Urobilinogen (<2.0) mg/dL Ur Leukocyte Esterase (Negative) Urine RBC (0-5) /hpf Urine WBC (0-5) /hpf Ur Squamous Epith Cells (0-4) /hpf Calcium Oxalate Crystal (None) /hpf Urine Bacteria (None) /hpf Urine Mucus (None) /hpf Urine HCG, Qual (Not Detectd) Disposition <Donal Caprio - Last Filed: 12/27/21 06:04> Is patient prescribed a controlled substance at d/c from ED?: No Time of Disposition: 08:42 <Cali Rangel - Last Filed: 12/27/21 08:42> Clinical Impression: Left ovarian cyst, Abdominal pain Disposition: HOME SELF-CARE Condition: Fair Instructions (If sedation given, give patient instructions): Abdominal Pain (ED), Ovarian Cyst (ED) Additional Instructions: Please continue to follow up with your [employer]. Referrals: None,Stated [Primary Care Provider] - 1-2 days
[2021-12-27] MEDS ORDERED: HYDROmorphone 0.5 MG/0.5 ML SYRINGE IVP STA ×2 (07:56→08:41)
--- NOTE | 2021-12-27 08:23 | US ---
EXAMINATION TYPE: US transvaginal DATE OF EXAM: 12/27/2021 COMPARISON: CLINICAL HISTORY: LLQ pain. Patient states she had a 3.0 cm cyst last week. Uterus and right ovary r emoved. Pain. TECHNIQUE: Transvaginal (TV). EC patient Date of LMP: Unknown EXAM MEASUREMENTS: Left Ovary: 3.6 x 2.9 x 2.8 cm 1. Uterus: Surgically absent 2. Endometrium: Surgically absent 3. Right Ovary: Surgically absent 4. Left Ovary: Dominant follicle vs simple cyst = 2.7 x 2.6 x 2.7 cm Spectral, color and waveform doppler imaging shows good arterial and venous flow within the left; t here is no evidence for ovarian torsion. 5. Bilateral Adnexa: wnl 6. Posterior cul-de-sac: small amount of free fluid Cervix- nabothian cyst IMPRESSION: Dominant follicle versus simple cyst of the left ovary. Small amount of free fluid seen within the cu l-de-sac.
[2021-12-27 08:55] VITALS: BP 122/83; PULSE 80; RESP 20; TEMP 98.5
== END 2021-12-27 08:55 | disposition home or self-care (01) ==
LOC: EC 23:34
DX: N83.202 Unspecified ovarian cyst, left side (principal); K21.9 Gastro-esophageal reflux disease without esophagitis; Z91.09 Other allergy status, other than to drugs and biological substances; Z88.8 Allergy status to other drugs, medicaments and biological substances; Z91.048 Other nonmedicinal substance allergy status; Z88.1 Allergy status to other antibiotic agents; Z88.0 Allergy status to penicillin; Z88.2 Allergy status to sulfonamides; Z79.899 Other long term (current) drug therapy
CPT/HCPCS: 36415; 80053; 82150; 83690; 85025; 81001; 81025; 93976; 76830; 99284; 96374; 96376; J1170

== ENCOUNTER → 2022-01-11 | Outpatient (CLI) | payer OTHER ==
--- NOTE | 2022-01-12 10:04 | MR ---
EXAMINATION TYPE: MR pelvis wo/w con DATE OF EXAM: 01/11/2022 COMPARISON: Transvaginal pelvic ultrasound December 27, 2021. CT abdomen and pelvis December 09, 2021 HISTORY: PELVIC AND PERINEAL PAIN CONTRAST: Standard multiplanar, multisequence MRI departmental protocol images were obtained without contrast a nd with 9 mL intravenous Gadavist gadolinium contrast. FINDINGS: The cervical remnant is anteverted in shape. There are a few tiny nabothian cysts identifie d. Uterus is surgically absent. Small to moderate amount of free fluid in the right pelvic cul-de-sac sagittal image 18 for reference. Finding is nonspecific. Right ovary is surgically absent. Left ovary has normal peripheral follicles axial image 30. Just inf erior to the left ovary there is redemonstration of oval left pelvic mass measuring 3.2 cm AP diamete r by 2.6 cm transversely axial image 27 x 2.2 cm craniocaudal diameter sagittal image 11. The lesion is T1 hypointense with thin rim enhancement and has anterior T2 hyperintensity with posterior T2 hypo intensity. This is consistent with nonsimple fluid correlating with ultrasound. Etiology uncertain bu t a benign etiology is strongly favored. Suspect hemorrhagic paraovarian cyst. No suspicious small or large bowel dilatation. No concerning pelvic adenopathy. No groin hernia or ad enopathy is seen. Osseous structures are intact. IMPRESSION: Left pelvic lesion appears may be separate from left ovary either way favor benign etiolo gy, hemorrhagic cyst or cystic lesion is suspected.
== END | disposition home or self-care (01) ==
LOC: RADMRIMAIN 10:32
PROVIDERS: ATTEND Obstetrics & Gynecology
DX: R10.2 Pelvic and perineal pain (principal)
CPT/HCPCS: 72197; A9585

== ENCOUNTER 2022-01-15 16:40 | Emergency (ER) | payer OTHER ==
[2022-01-15 19:31] VITALS: PULSE 71; RESP 18; TEMP 97.9
[2022-01-15] MEDS ORDERED: HYDROmorphone 0.5 MG/0.5 ML SYRINGE IM STA (23:39)
[2022-01-15] MEDS ORDERED: KETOROLAC 15 MG/ML 1 ML VIAL IM STA (23:39)
--- NOTE | 2022-01-16 01:57 | US ---
EXAM: US Pelvis Transabdominal, Complete CLINICAL HISTORY: ITS.REASON US Reason: pelvic pain TECHNIQUE: Real-time complete transabdominal pelvic ultrasound with image documentation. COMPARISON: Comparison made to prior pelvic ultrasound from September 03, 2021. FINDINGS: Uterus/cervix: Surgically absent. Right ovary: Surgically absent. Left ovary: Measures 3.0 x 1.8 x 1.7 cm. No mass. Normal blood flow. Free fluid: No free fluid. Bladder: Unremarkable as visualized. Wall is normal thickness for degree of distention. IMPRESSION: No evidence of acute pelvic pathology. Status post hysterectomy and right oophorectomy.
[2022-01-16] MEDS ORDERED: HYDROmorphone 0.5 MG/0.5 ML SYRINGE IVP STA (02:06)
--- NOTE | 2022-01-16 02:20 | ED ---
Abdominal Pain HPI - General Chief Complaint: Abdominal Pain Stated Complaint: Left side Pelvic Pain Time Seen by Provider: 01/15/22 23:28 Source: patient Mode of arrival: ambulatory Limitations: no limitations - History of Present Illness Initial Comments: Patient is a 31-year-old female presenting with chief complaint of pelvic pain. Patient has a history of hysterectomy and partial oophorectomy. Patient states that she has a large cyst to the left ovary where the majority of her pain is. Patient has been seen here multiple times for this issue. States she has been taking naproxen with little relief. She denies any vaginal bleeding or discharge, dysuria, hematuria, urgency, frequency, diarrhea, hematochezia, melena, nausea, vomiting, chest pain, shortness of breath, fever, chills. - Related Data Home Medications Medication Instructions Recorded Confirmed Naproxen 500 mg PO Q6H PRN 12/02/21 12/02/21 Omeprazole 20 mg PO HS 12/02/21 12/02/21 Vyfemia 1 tab PO HS 12/02/21 12/02/21 Allergies Allergy/AdvReac Type Severity Reaction Status Date / Time adhesive tape Allergy Rash/Hives Verified 01/15/22 19:31 aloe vera Allergy Rash/Hives Verified 01/15/22 19:31 azithromycin Allergy Rash/Hives Verified 01/15/22 19:31 cephalexin Allergy Rash/Hives Verified 01/15/22 19:31 metronidazole [From Flagyl] Allergy Rash/Hives Verified 01/15/22 19:31 Penicillins Allergy Rash/Hives Verified 01/15/22 19:31 sulfamethoxazole Allergy Rash/Hives Verified 01/15/22 19:31 [From Bactrim] trimethoprim [From Bactrim] Allergy Rash/Hives Verified 01/15/22 19:31 alprazolam [From Xanax] AdvReac MAKES Verified 01/15/22 19:31 PARANOID dicyclomine [From Bentyl] AdvReac constipatio Verified 01/15/22 19:31 n Review of Systems ROS Statement: Those systems with pertinent positive or pertinent negative responses have been documented in the HPI. ROS Other: All systems not noted in ROS Statement are negative. Past Medical History Past Medical History: Blood Disorder, GERD/Reflux Additional Past Medical History / Comment(s): Endometriosis, polycystic ovarian syndrome. IRON DEFICIENCY ANEMIA. Stomach Ulcer. ovarian cyst History of Any Multi-Drug Resistant Organisms: None Reported Past Surgical History: Ablation, Section, Cholecystectomy, Hyst erectomy, Tubal Ligation, Uterine Ablation Additional Past Surgical History / Comment(s): Laparoscopy X2, Section X3. Right ovary and right tube removed - 2019. cyst removed from chest. AUG 2020 - ADHESION REMOVAL FROM PAST . Vaginal. pelvic biopsy 05/11. PCOS Past Anesthesia/Blood Transfusion Reactions: No Reported Reaction Past Psychological History: Anxiety, Depression Smoking Status: Never smoker Past Alcohol Use History: Rare Past Drug Use History: None Reported - Past Family History Mother Family Medical History: Hyperlipidemia Additional Family Medical History / Comment(s): Depression and anxiety. General Exam Limitations: no limitations General appearance: alert, in no apparent distress Head exam: Present: atraumatic, normocephalic, normal inspection Eye exam: Present: normal appearance, EOMI. Absent: scleral icterus Neck exam: Present: normal inspection Respiratory exam: Present: normal lung sounds bilaterally. Absent: respiratory distress, wheezes, rales, rhonchi, stridor Cardiovascular Exam: Present: regular rate, normal rhythm, normal heart sounds. Absent: systolic murmur, diastolic murmur, rubs, gallop, clicks GI/Abdominal exam: Present: soft. Absent: distended, tenderness, guarding, rebound, rigid Neurological exam: Present: alert, oriented X3, CN II-XII intact Psychiatric exam: Present: normal affect, normal mood Skin exam: Present: warm, dry, intact, normal color. Absent: rash Course Vital Signs 01/15/22 01/16/22 19:29 02:10 Temperature 97.9 F Pulse Rate 71 Respiratory 18 Rate Blood Pressure 143/96 116/74 O2 Sat by Pulse 100 Oximetry Medical Decision Making - Medical Decision Making Patient is a 31-year-old female presenting with chief complaint of pelvic pain. She has been seen here multiple times for this issue. She denies any bleeding, fever, chills. On exam abdomen is soft and nondistended, there is some tenderness in the left lower quadrant, patient states is where her chronic pelvic pain normally lies. Ultrasound shows no torsion or masses. Patient is given pain medication, she reports improvement. She appears stable for discharge with outpatient follow-up at this time. Follow-up with PCP in one to 2 days. Report back to ER if any new or worsening symptoms. Discussed return parameters answered all questions. Patient conveyed verbal understanding and agreed to the plan. I discussed this case with my attending Dr. Araujo. Disposition Clinical Impression: Pelvic pain Disposition: HOME SELF-CARE Condition: Good Instructions (If sedation given, give patient instructions): Pelvic Pain in Women (ED) Additional Instructions: Follow-up with PCP and [facility]. Report back to ER if any new or worsening symptoms. Take Motrin and Tylenol as needed for pain control. Is patient prescribed a controlled substance at d/c from ED?: No Referrals: None,Stated [Primary Care Provider] - 1-2 days Time of Disposition: 02:19
[2022-01-16 02:53] VITALS: BP 116/74
[2022-01-16 03:44] LABS: Appearance,Urine Clear (Clear); Bilirubin,Urine Negative (Negative); Blood,Urine Negative (Negative); Color,Urine Yellow; Glucose,Urine (UA) Negative (Negative); Ketones,Urine Negative (Negative); Leukocyte Esterase,Urine Negative (Negative); Nitrite,Urine Negative (Negative); Protein,Urine Negative (Negative); Specific Gravity,Urine 1.022 (1.001-1.035); Urobilinogen,Urine <2.0 mg/dL (<2.0)
== END 2022-01-16 02:51 | disposition home or self-care (01) ==
LOC: EC 16:40
DX: R10.2 Pelvic and perineal pain (principal); K21.9 Gastro-esophageal reflux disease without esophagitis; Z79.83 Long term (current) use of bisphosphonates; Z91.048 Other nonmedicinal substance allergy status; Z88.1 Allergy status to other antibiotic agents; Z88.0 Allergy status to penicillin; Z88.2 Allergy status to sulfonamides; Z88.8 Allergy status to other drugs, medicaments and biological substances; Z88.3 Allergy status to other anti-infective agents; Z91.09 Other allergy status, other than to drugs and biological substances
CPT/HCPCS: 76856; 81003

== ENCOUNTER 2022-01-18 20:57 | Emergency (ER) | payer OTHER ==
[2022-01-18 21:24] VITALS: BP 149/69; PULSE 83; RESP 18; TEMP 98.5
[2022-01-18] MEDS ORDERED: MORPHINE SULFATE 4 MG/ML SYRINGE IM STA (21:33)
[2022-01-18] MEDS ORDERED: HYDROcodone/APAP 5-325MG 1 EACH TAB PO STA (21:46)
--- NOTE | 2022-01-18 21:56 | ED ---
General Adult HPI - General Chief complaint: Abdominal Pain Stated complaint: Pelvic Pain Time Seen by Provider: 01/18/22 21:32 Source: patient, RN notes reviewed, old records reviewed Mode of arrival: ambulatory - History of Present Illness Initial comments: 31-year-old female presents for evaluation of left lower abdominal pain. Pain is been chronic in nature and has been identified as associated with ovarian cyst. She is scheduled for evaluation by a internet merchant out of [place]. She has had an MRI and is awaiting these results with likely removal of the left ovary. She has no hematuria or dysuria. No vomiting or cheese having normal bowel movements. No fevers. - Related Data Home Medications Medication Instructions Recorded Confirmed Naproxen 500 mg PO Q6H PRN 12/02/21 12/02/21 Omeprazole 20 mg PO HS 12/02/21 12/02/21 Vyfemia 1 tab PO HS 12/02/21 12/02/21 Allergies Allergy/AdvReac Type Severity Reaction Status Date / Time adhesive tape Allergy Rash/Hives Verified 01/15/22 19:31 aloe vera Allergy Rash/Hives Verified 01/15/22 19:31 azithromycin Allergy Rash/Hives Verified 01/15/22 19:31 cephalexin Allergy Rash/Hives Verified 01/15/22 19:31 metronidazole [From Flagyl] Allergy Rash/Hives Verified 01/15/22 19:31 Penicillins Allergy Rash/Hives Verified 01/15/22 19:31 sulfamethoxazole Allergy Rash/Hives Verified 01/15/22 19:31 [From Bactrim] trimethoprim [From Bactrim] Allergy Rash/Hives Verified 01/15/22 19:31 alprazolam [From Xanax] AdvReac MAKES Verified 01/15/22 19:31 PARANOID dicyclomine [From Bentyl] AdvReac constipatio Verified 01/15/22 19:31 n Review of Systems ROS Statement: Those systems with pertinent positive or pertinent negative responses have been documented in the HPI. ROS Other: All systems not noted in ROS Statement are negative. Past Medical History Past Medical History: Blood Disorder, GERD/Reflux Additional Past Medical History / Comment(s): Endometriosis, polycystic ovarian syndrome. IRON DEFICIENCY ANEMIA. Stomach Ulcer. ovarian cyst History of Any Multi-Drug Resistant Organisms: None Reported Past Surgical History: Ablation, Section, Cholecystectomy, Hysterectomy, Tubal Ligation, Uterine Ablation Additional Past Surgical History / Comment(s): Laparoscopy X2, Section X3. Right ovary and right tube removed - 2019. cyst removed from chest. AUG 2020 - ADHESION REMOVAL FROM PAST . Vaginal. pelvic biopsy 05/11. PCOS Past Anesthesia/Blood Transfusion Reactions: No Reported Reaction Past Psychological History: Anxiety, Depression Smoking Status: Never smoker Past Alcohol Use History: Rare Past Drug Use History: None Reported - Past Family History Mother Family Medical History: Hyperlipidemia Additional Family Medical History / Comment(s): Depression and anxiety. General Exam General appearance: alert, in no apparent distress Head exam: Present: atraumatic, normocephalic Eye exam: Present: normal appearance, PERRL ENT exam: Present: normal exam Neck exam: Present: normal inspection. Absent: tenderness Respiratory exam: Present: normal lung sounds bilaterally. Absent: respiratory distress, wheezes Cardiovascular Exam: Present: regular rate, normal rhythm GI/Abdominal exam: Present: soft, tenderness (Mild left lower quadrant). Absent: distended Extremities exam: Present: normal inspection, normal capillary refill. Absent: pedal edema Neurological exam: Present: alert, oriented X3, CN II-XII intact. Absent: motor sensory deficit Psychiatric exam: Present: normal affect, normal mood Skin exam: Present: warm, dry, intact. Absent: cyanosis, diaphoretic Course Vital Signs 01/18/22 21:20 Temperature 98.5 F Pulse Rate 83 Respiratory 18 Rate Blood Pressure 149/69 O2 Sat by Pulse 100 Oximetry Medical Decision Making - Medical Decision Making 31-year-old female with chronic left-sided lower abdominal pain. Currently out of home medications, awaiting evaluation by her internet merchant for likely removal of the left ovary. No alarming features on history or physical exam. She is well-appearing with stable vitals. She is given intermuscular pain medication emergency department and discharged with outpatient follow-up. Disposition Clinical Impression: Pelvic pain Disposition: HOME SELF-CARE Condition: Fair Instructions (If sedation given, give patient instructions): Pelvic Pain (ED) Additional Instructions: Please continue to follow up with your specialist. Is patient prescribed a controlled substance at d/c from ED?: No Referrals: Marely De Santiago [Primary Care Provider] - 1-2 days Time of Disposition: 21:55
[2022-01-18 22:07] LABS: Appearance,Urine Clear (Clear); Bilirubin,Urine Negative (Negative); Blood,Urine Negative (Negative); Color,Urine Yellow; Glucose,Urine (UA) Negative (Negative); Ketones,Urine Negative (Negative); Leukocyte Esterase,Urine Negative (Negative); Nitrite,Urine Negative (Negative); Protein,Urine Negative (Negative); Specific Gravity,Urine 1.022 (1.001-1.035); Urobilinogen,Urine <2.0 mg/dL (<2.0)
== END 2022-01-18 22:33 | disposition home or self-care (01) ==
LOC: EC 20:57
DX: R10.2 Pelvic and perineal pain (principal); K21.9 Gastro-esophageal reflux disease without esophagitis; Z79.899 Other long term (current) drug therapy; Z91.09 Other allergy status, other than to drugs and biological substances; Z88.8 Allergy status to other drugs, medicaments and biological substances; Z88.1 Allergy status to other antibiotic agents; Z88.0 Allergy status to penicillin; Z88.2 Allergy status to sulfonamides
CPT/HCPCS: 81003; 99284; 96372; J2270

== ENCOUNTER → 2022-01-20 | Outpatient (CLI) | payer OTHER ==
--- NOTE | 2022-01-20 09:15 | MR ---
EXAMINATION TYPE: MR abdomen wo/w con DATE OF EXAM: 01/20/2022 8:34 AM INDICATION: Patient age:Female; 31 years old; Reason for study: R10.2; Pelvic and perineal pain COMPARISON: MR pelvis 01/11/2022, CT chest 12/09/2021 TECHNIQUE: Multiplanar multi-sequence imaging was performed without and with IV contrast/Gadavist . The patient was given 9 ccs of Gadavist intravenously and dynamic post-VIBE (volumetric interpolated breath-hold gradient recall echo) imaging was performed. FINDINGS: LOWER CHEST: No gross irregularity. ABDOMEN Liver: Mild increase in signal on out of phase imaging. Gallbladder and Bile ducts: No biliary ductal dilatation. The gallbladder is surgically absent Pancreas: Unremarkable. Spleen: Mild increased signal on out of phase imaging. A splenule is present. Adrenal glands: Unremarkable. Kidneys: Unremarkable. Stomach and Bowel: There is a small hiatal hernia. Peritoneum: No evidence of pneumoperitoneum, free fluid, or adenopathy. Vasculature: Unremarkable. No aortic aneurysm. Abdominal wall: There is umbilical hernia containing fat. Musculoskeletal: The osseous structures appear intact. Reproductive: Similar left ovary with multiple follicles. There is postsurgical changes to uterus wit h cervical stump in place. IMPRESSION: 1. No evidence for acute process. 2. Mild iron deposition within the liver and spleen 3. Small hiatal hernia. 4. Small umbilical fat-containing hernia.
== END | disposition home or self-care (01) ==
LOC: RADMRIMAIN 07:31
PROVIDERS: ATTEND Obstetrics & Gynecology
DX: R10.2 Pelvic and perineal pain (principal); K44.9 Diaphragmatic hernia without obstruction or gangrene; K42.9 Umbilical hernia without obstruction or gangrene
CPT/HCPCS: 74183; A9585

== ENCOUNTER 2022-02-01 15:57 | Emergency (ER) | payer OTHER ==
[2022-02-01 17:51] VITALS: BP 124/76; PULSE 70; RESP 16; TEMP 98.2
--- NOTE | 2022-02-01 18:03 | ED ---
General Adult HPI - General Chief complaint: Nausea/Vomiting/Diarrhea Stated complaint: Vomiting Time Seen by Provider: 02/01/22 18:00 Source: patient, RN notes reviewed, old records reviewed Mode of arrival: ambulatory Limitations: no limitations - History of Present Illness Initial comments: 31-year-old female with chronic abdominal pain presenting with lower abdominal pain for the past 2 days with associated nausea vomiting. Patient currently awaiting evaluation by specialist for possible removal of her left ovary for recurrent hemorrhagic cyst causing her pain. Patient denies fever. She states she has not been able to keep anything down over the past 2 days secondary to vomiting. - Related Data Home Medications Medication Instructions Recorded Confirmed Naproxen 500 mg PO Q6H PRN 12/02/21 01/18/22 Omeprazole 20 mg PO HS 12/02/21 01/18/22 Previous Rx's Medication Instructions Recorded Ondansetron Odt [Zofran Odt] 4 mg PO Q8HR PRN #10 tab 02/01/22 Allergies Allergy/AdvReac Type Severity Reaction Status Date / Time adhesive tape Allergy Rash/Hives Verified 02/01/22 17:50 aloe vera Allergy Rash/Hives Verified 02/01/22 17:50 azithromycin Allergy Rash/Hives Verified 02/01/22 17:50 cephalexin Allergy Rash/Hives Verified 02/01/22 17:50 metronidazole [From Flagyl] Allergy Rash/Hives Verified 02/01/22 17:50 Penicillins Allergy Rash/Hives Verified 02/01/22 17:50 sulfamethoxazole Allergy Rash/Hives Verified 02/01/22 17:50 [From Bactrim] trimethoprim [From Bactrim] Allergy Rash/Hives Verified 02/01/22 17:50 alprazolam [From Xanax] AdvReac MAKES Verified 02/01/22 17:50 PARANOID dicyclomine [From Bentyl] AdvReac constipatio Verified 02/01/22 17:50 n Review of Systems ROS Statement: Those systems with pertinent positive or pertinent negative responses have been documented in the HPI. ROS Other: All systems not noted in ROS Statement are negative. Past Medical History Past Medical History: Blood Disorder, GERD/Reflux Additional Past Medical History / Comment(s): Endometriosis, polycystic ovarian syndrome. IRON DEFICIENCY ANEMIA. Stomach Ulcer. ovarian cyst History of Any Multi-Drug Resistant Organisms: None Reported Past Surgical History: Ablation, Section, Cholecystectomy, H ysterectomy, Tubal Ligation, Uterine Ablation Additional Past Surgical History / Comment(s): Laparoscopy X2, Section X3. Right ovary and right tube removed - 2019. cyst removed from chest. AUG 2020 - ADHESION REMOVAL FROM PAST . Vaginal. pelvic biopsy 05/11. PCOS Past Anesthesia/Blood Transfusion Reactions: No Reported Reaction Past Psychological History: Anxiety, Depression Smoking Status: Never smoker Past Alcohol Use History: Rare Past Drug Use History: None Reported - Past Family History Mother Family Medical History: Hyperlipidemia Additional Family Medical History / Comment(s): Depression and anxiety. General Exam Limitations: no limitations General appearance: alert, in no apparent distress Head exam: Present: atraumatic, normocephalic Eye exam: Present: normal appearance, PERRL ENT exam: Present: mucous membranes moist Neck exam: Present: normal inspection. Absent: tenderness, meningismus Respiratory exam: Present: normal lung sounds bilaterally. Absent: respiratory distress, wheezes Cardiovascular Exam: Present: regular rate, normal rhythm GI/Abdominal exam: Present: soft, tenderness (Mild bilateral lower abdominal tenderness). Absent: distended Extremities exam: Present: normal inspection, normal capillary refill Neurological exam: Present: alert, oriented X3, CN II-XII intact. Absent: motor sensory deficit Psychiatric exam: Present: normal affect, normal mood Skin exam: Present: warm, dry, intact. Absent: cyanosis, diaphoretic Course Vital Signs 02/01/22 17:49 Temperature 98.2 F Pulse Rate 70 Respiratory 16 Rate Blood Pressure 124/76 O2 Sat by Pulse 100 Oximetry Medical Decision Making - Medical Decision Making 31-year-old female with chronic abdominal pain. Patient is well-appearing without vital sign abnormalities. She has some mild tenderness on exam. I am very familiar with this patient. Her symptoms are chronic in nature. She does not appear dehydrated, mucous membranes are moist. Her urinalysis is negative for ketones, no signs of acute infection. She's given oral pain medication and oral antibiotics. She is prescribed a prescription of oral antibiotics that she should follow-up with her primary care physician. - Lab Data Lab Results 02/01/22 02/01/22 Range/Units 18:05 18:05 Urine Color Yellow Urine Appearance Cloudy H (Clear) Urine pH 5.5 (5.0-8.0) Ur Specific [place] 1.022 (1.001-1.035) Urine Protein Negative (Negative) Urine Glucose (UA) Negative (Negative) Urine Ketones Negative (Negative) Urine Blood Negative (Negative) Urine Nitrite Negative (Negative) Urine Bilirubin Negative (Negative) Urine Urobilinogen <2.0 (<2.0) mg/dL Ur Leukocyte Esterase Trace H (Negative) Urine RBC 1 (0-5) /hpf Urine WBC 6 H (0-5) /hpf Ur Squamous Epith Cells 3 (0-4) /hpf Urine Bacteria Many H (None) /hpf Urine Mucus Few H (None) /hpf Urine HCG, Qual Not Detected (Not Detectd) Disposition Clinical Impression: Nausea and vomiting Disposition: HOME SELF-CARE Condition: Fair Instructions (If sedation given, give patient instructions): Acute Nausea and Vomiting (ED) Prescriptions: Ondansetron Odt [Zofran Odt] 4 mg PO Q8HR PRN #10 tab PRN Reason: Vomiting Is patient prescribed a controlled substance at d/c from ED?: No Referrals: Marely De Santiago [Primary Care Provider] - 1-2 days Time of Disposition: 18:31
[2022-02-01 18:27] LABS: Appearance,Urine Cloudy (Clear); Bacteria,Urine Many /hpf; Bilirubin,Urine Negative (Negative); Blood,Urine Negative (Negative); Color,Urine Yellow; Glucose,Urine (UA) Negative (Negative); Ketones,Urine Negative (Negative); Leukocyte Esterase,Urine Trace (Negative); Mucus,Urine Few /hpf; Nitrite,Urine Negative (Negative); PH, Urine 5.5 (5.0-8.0); Protein,Urine Negative (Negative); RBC,Urine 1 /hpf (0-5); Specific Gravity,Urine 1.022 (1.001-1.035); Squamous Epithelial Cell,Urine 3 /hpf (0-4); Urobilinogen,Urine <2.0 mg/dL (<2.0); WBC,Urine 6 /hpf (0-5)
[2022-02-01] MEDS ORDERED: HYDROcodone/APAP 5-325MG 1 EACH TAB PO STA (18:29)
[2022-02-01] MEDS ORDERED: ONDANSETRON ODT 4 MG TAB PO STA (18:29)
== END 2022-02-01 19:24 | disposition home or self-care (01) ==
LOC: EC 15:57
DX: R11.2 Nausea with vomiting, unspecified (principal); R10.31 Right lower quadrant pain; R10.32 Left lower quadrant pain; K21.9 Gastro-esophageal reflux disease without esophagitis; Z79.899 Other long term (current) drug therapy
CPT/HCPCS: 81001; 81025; 99284

== ENCOUNTER 2022-02-04 12:51 | Emergency (ER) | payer OTHER ==
[2022-02-04 13:04] VITALS: BP 119/76; PULSE 112; RESP 22; TEMP 98.6
--- NOTE | 2022-02-04 13:44 | XR ---
EXAMINATION TYPE: XR KUB DATE OF EXAM: 02/04/2022 COMPARISON: 12/15/2021 HISTORY: Pain TECHNIQUE: Single supine KUB image of the abdomen is obtained FINDINGS: Small bowel demonstrates no evidence for dilatation or air fluid levels. Gas and fecal material is seen in non-distended colon. No convincing evidence for pneumoperitoneum. No unusual calcifications. The lung bases are clear. The osseous structures are intact. IMPRESSION: 1. Overall nonobstructive bowel gas pattern.
[2022-02-04 13:51] LABS: Basophils % (A) 1 %; Eosinophils % (A) 1 %; HCT 36.2 % (34.0-46.0); HGB 11.5 gm/dL (11.4-16.0); Lymphocytes % (A) 25 %; MCH 29.7 pg (25.0-35.0); MCHC 31.8 g/dL (31.0-37.0); MCV 93.2 fL (80.0-100.0); Mean Platelet Volume 7.8; Monocytes # (A) 0.2 k/uL (0-1.0); Monocytes % (A) 4 %; Neutrophils # (A) 2.8 k/uL (1.3-7.7); Neutrophils % (A) 68 %; Platelet Count 200 k/uL (150-450); RBC 3.88 m/uL (3.80-5.40); RDW 12.6 % (11.5-15.5); WBC 4.1 k/uL (3.8-10.6)
[2022-02-04 13:53] LABS: Appearance,Urine Clear (Clear); Bilirubin,Urine Negative (Negative); Blood,Urine Negative (Negative); Color,Urine Light Yellow; Glucose,Urine (UA) Negative (Negative); Ketones,Urine Negative (Negative); Leukocyte Esterase,Urine Negative (Negative); Nitrite,Urine Negative (Negative); PH, Urine 6.5 (5.0-8.0); Protein,Urine Negative (Negative); Specific Gravity,Urine 1.012 (1.001-1.035); Urobilinogen,Urine <2.0 mg/dL (<2.0)
[2022-02-04 14:00] LABS: ALT 11 U/L (4-34); AST 20 U/L (14-36); African American GFR (CKD) >90 (>60 ml/min/1.73 sqM); Albumin 4.2 g/dL (3.5-5.0); Alkaline Phosphatase 77 U/L (38-126); Amylase 56 U/L (30-110); Anion Gap 7 mmol/L; Blood Urea Nitrogen 14 mg/dL (7-17); Calcium 9.5 mg/dL (8.4-10.2); Carbon Dioxide 23 mmol/L (22-30); Chloride 107 mmol/L (98-107); Glucose 89 mg/dL (74-99); Lipase 42 U/L (23-300); Non-African American GFR(CKD) >90 (>60 ml/min/1.73 sqM); Potassium 4.5 mmol/L (3.5-5.1); Sodium 137 mmol/L (137-145); Total Protein 7.1 g/dL (6.3-8.2)
[2022-02-04] MEDS ORDERED: HYDROcodone/APAP 7.5-325MG 1 EACH TAB PO ONE (15:16)
[2022-02-04] MEDS ORDERED: ONDANSETRON 4 MG/2 ML VIAL IVP STA (15:16)
--- NOTE | 2022-02-04 16:21 | ED ---
Abdominal Pain HPI - General Chief Complaint: Abdominal Pain Stated Complaint: Revisit Abd pain Time Seen by Provider: 02/04/22 15:10 Source: patient Mode of arrival: wheelchair Limitations: no limitations - History of Present Illness Initial Comments: Patient is a 31-year-old female who presents to the emergency department with a chief complaint of right lower abdominal pain. Patient is very well known to her facility. She presents with consistently similar concerns often. Patient states the pain has gotten worse over the past 2 days. States the pain causes her to vomit once. Denies fever, chills, chest pain, shortness of breath, and other concerns. Patient has history of endometriosis, ovarian cyst, hysterectomy and right oophorectomy. She has had numerous abdominal CTs in the past 6 months. The last was performed in November which showed no acute abnormality. Patient also had abdominal MRI on January 20 which showed no acute abnormality. [facility] pelvic ultrasound was on January 16 which showed no evidence of acute pelvic pathology. - Related Data Home Medications Medication Instructions Recorded Confirmed Naproxen 500 mg PO Q6H PRN 12/02/21 01/18/22 Omeprazole 20 mg PO HS 12/02/21 01/18/22 Previous Rx's Medication Instructions Recorded Ondansetron Odt [Zofran Odt] 4 mg PO Q8HR PRN #10 tab 02/01/22 Allergies Allergy/AdvReac Type Severity Reaction Status Date / Time adhesive tape Allergy Rash/Hives Verified 02/04/22 13:05 aloe vera Allergy Rash/Hives Verified 02/04/22 13:05 azithromycin Allergy Rash/Hives Verified 02/04/22 13:05 cephalexin Allergy Rash/Hives Verified 02/04/22 13:05 metronidazole [From Flagyl] Allergy Rash/Hives Verified 02/04/22 13:05 Penicillins Allergy Rash/Hives Verified 02/04/22 13:05 sulfamethoxazole Allergy Rash/Hives Verified 02/04/22 13:05 [From Bactrim] trimethoprim [From Bactrim] Allergy Rash/Hives Verified 02/04/22 13:05 alprazolam [From Xanax] AdvReac MAKES Verified 02/04/22 13:05 PARANOID dicyclomine [From Bentyl] AdvReac constipatio Verified 02/04/22 13:05 n Review of Systems ROS Statement: Those systems with pertinent positive or pertinent negative responses have been documented in the HPI. ROS Other: All systems not noted in ROS Statement are negative. Past Medical History Past Medical History: Blood Disorder, GERD/Reflux Additional Past Medical History / Comment(s): Endometriosis, polycystic ovarian syndrome. IRON DEFICIENCY ANEMIA. Stomach Ulcer. ovarian cyst History of Any Multi-Drug Resistant Organisms: None Reported Past Surgical History: Ablation, Section, Cholecystectomy, Hysterectomy, Tubal Ligation, Uterine Ablation Additional Past Surgical History / Comment(s): Laparoscopy X2, Section X3. Right ovary and right tube removed - 2019. cyst removed from chest. AUG 2020 - ADHESION REMOVAL FROM PAST . Vaginal. pelvic biopsy 05/11. PCOS Past Anesthesia/Blood Transfusion Reactions: No Reported Reaction Past Psychological History: Anxiety, Depression Smoking Status: Never smoker Past Alcohol Use History: Rare Past Drug Use History: None Reported - Past Family History Mother Family Medical History: Hyperlipidemia Additional Family Medical History / Comment(s): Depression and anxiety. General Exam Limitations: no limitations General appearance: alert, in no apparent distress Eye exam: Present: normal appearance, PERRL, EOMI. Absent: scleral icterus, conjunctival injection, periorbital swelling Respiratory exam: Present: normal lung sounds bilaterally. Absent: respiratory distress, wheezes, rales, rhonchi, stridor Cardiovascular Exam: Present: regular rate, normal rhythm, normal heart sounds. Absent: systolic murmur, diastolic murmur, rubs, gallop, clicks GI/Abdominal exam: Present: soft, normal bowel sounds. Absent: distended, tenderness, guarding, rebound, rigid Neurological exam: Present: alert, oriented X3, CN II-XII intact Psychiatric exam: Present: normal affect, normal mood Skin exam: Present: warm, dry, intact, normal color. Absent: rash Course Vital Signs 02/04/22 12:59 Temperature 98.6 F Pulse Rate 112 H Respiratory 22 Rate Blood Pressure 119/76 O2 Sat by Pulse 99 Oximetry Medical Decision Making - Medical Decision Making This is a 31-year-old female presenting with recurrent right lower quadrant pain. Thorough history and examination were performed. Patient is well-conner earing. She is afebrile. The abdomen is soft and nontender. KUB x-ray obtained triage which is negative for acute process. Laboratory studies are within normal limits. Patient informed of results. Patient has consistently unremarkable imaging. This pain is a chronic issue for her. 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 Upon discharging patient with jose she asked for a "norco starter pack." I refused to prescribe patient narcotics as she has been instructed numerous times that she will need to follow up with the specialist for pain instead of coming to the emergency department for narcotics. Dr. Disla is my attending. - Lab Data Result diagrams: 02/04/22 13:40 02/04/22 13:40 Lab Results 02/04/22 02/04/22 02/04/22 Range/Units 13:40 13:40 13:40 WBC 4.1 (3.8-10.6) k/uL RBC 3.88 (3.80-5.40) m/uL Hgb 11.5 (11.4-16.0) gm/dL Hct 36.2 (34.0-46.0) % MCV 93.2 (80.0-100.0) fL MCH 29.7 (25.0-35.0) pg MCHC 31.8 (31.0-37.0) g/dL RDW 12.6 (11.5-15.5) % Plt Count 200 (150-450) k/uL MPV 7.8 Neutrophils % 68 % Lymphocytes % 25 % Monocytes % 4 % Eosinophils % 1 % Basophils % 1 % Neutrophils # 2.8 (1.3-7.7) k/uL Lymphocytes # 1.0 (1.0-4.8) k/uL Monocytes # 0.2 (0-1.0) k/uL Eosinophils # 0.0 (0-0.7) k/uL Basophils # 0.0 (0-0.2) k/uL Sodium 137 (137-145) mmol/L Potassium 4.5 (3.5-5.1) mmol/L Chloride 107 (98-107) mmol/L Carbon Dioxide 23 (22-30) mmol/L Anion Gap 7 mmol/L BUN 14 (7-17) mg/dL Creatinine 0.74 (0.52-1.04) mg/dL Est GFR (CKD-EPI)AfAm >90 (>60 ml/min/1.73 sqM) Est GFR (CKD-EPI)NonAf >90 (>60 ml/min/1.73 sqM) Glucose 89 (74-99) mg/dL Calcium 9.5 (8.4-10.2) mg/dL Total Bilirubin 1.0 (0.2-1.3) mg/dL AST 20 (14-36) U/L ALT 11 (4-34) U/L Alkaline Phosphatase 77 (38-126) U/L Total Protein 7.1 (6.3-8.2) g/dL Albumin 4.2 (3.5-5.0) g/dL Amylase 56 (30-110) U/L Lipase 42 (23-300) U/L Urine Color Light Yellow Urine Appearance Clear (Clear) Urine pH 6.5 (5.0-8.0) Ur Specific [place] 1.012 (1.001-1.035) Urine Protein Negative (Negative) Urine Glucose (UA) Negative (Negative) Urine Ketones Negative (Negative) Urine Blood Negative (Negative) Urine Nitrite Negative (Negative) Urine Bilirubin Negative (Negative) Urine Urobilinogen <2.0 (<2.0) mg/dL Ur Leukocyte Esterase Negative (Negative) Disposition Clinical Impression: Abdominal pain, Nausea and vomiting Disposition: HOME SELF-CARE Condition: Poor Instructions (If sedation given, give patient instructions): Acute Nausea and Vomiting (ED), Abdominal Pain (ED) Additional Instructions: Follow-up with primary care provider in one to 2 days. Return to the emergency department if you experience new, concerning, or worsening symptoms. Is patient prescribed a controlled substance at d/c from ED?: No Referrals: Marely De Santiago [Primary Care Provider] - 1-2 days Time of Disposition: 16:20
== END 2022-02-04 17:07 | disposition home or self-care (01) ==
LOC: EC 12:51
DX: R10.31 Right lower quadrant pain (principal); R11.2 Nausea with vomiting, unspecified
CPT/HCPCS: 36415; 80053; 82150; 83690; 85025; 81003; 74018; 99284; 96374; J2405

== ENCOUNTER 2022-02-12 15:55 | Emergency (ER) | payer OTHER ==
[2022-02-12] MEDS ORDERED: KETOROLAC 15 MG/ML 1 ML VIAL IVP STA (17:00)
--- NOTE | 2022-02-12 17:05 | ED ---
Abdominal Pain HPI - General Chief Complaint: Abdominal Pain Stated Complaint: ABD Pain Time Seen by Provider: 02/12/22 16:49 Source: patient Mode of arrival: ambulatory Limitations: no limitations - History of Present Illness Initial Comments: This 31-year-old female presents with a complaint of some left lower quadrant abdominal/pelvic pain. She states that it started approximately 3 AM this morning. It has been intermittent in severity. She states that he can get quite severe at times. She has chronic nausea and takes Zofran for this and it is controlled. She denies any constipation. She has irritable bowel syndrome and has loose stools at times. She states that she recently had an exacerbation of her irritable bowel syndromes and had loose stools but this is improving currently. She has chronic abdominal pain problems. She has history of endometriosis as well as multiple ovarian cysts. She is well-known to the facility with potential drug-seeking behavior. She states that she is currently on antibiotics for a urinary tract infection. Her symptoms have improved in this regard. She denies any fevers or chills. No other complaints or modifying factors. - Related Data Home Medications Medication Instructions Recorded Confirmed Citalopram Hydrobromide [CeleXA] 40 mg PO HS 02/12/22 02/12/22 Nitrofurantoin Monohyd/M-Cryst 100 mg PO BID 02/12/22 02/12/22 [Macrobid] Omeprazole Magnesium [PriLOSEC OTC] 20 mg PO HS 02/12/22 02/12/22 Previous Rx's Medication Instructions Recorded Ondansetron Odt [Zofran Odt] 4 mg PO Q8HR PRN #10 tab 02/01/22 traMADol HCl [Ultram] 50 - 100 mg PO Q6HR PRN 3 Days #15 02/12/22 tab Allergies Allergy/AdvReac Type Severity Reaction Status Date / Time adhesive tape Allergy Rash/Hives Verified 02/12/22 18:33 aloe vera Allergy Rash/Hives Verified 02/12/22 18:33 azithromycin Allergy Rash/Hives Verified 02/12/22 18:33 cephalexin Allergy Rash/Hives Verified 02/12/22 18:33 metronidazole [From Flagyl] Allergy Rash/Hives Verified 02/12/22 18:33 Penicillins Allergy Rash/Hives Verified 02/12/22 18:33 sulfamethoxazole Allergy Rash/Hives Verified 02/12/22 18:33 [From Bactrim] trimethoprim [From Bactrim] Allergy Rash/Hives Verified 02/12/22 18:33 alprazolam [From Xanax] AdvReac MAKES Verified 02/12/22 18:33 PARANOID dicyclomine [From Bentyl] AdvReac constipatio Verified 02/12/22 18:33 n Review of Systems ROS Statement: Those systems with pertinent positive or pertinent negative responses have been documented in the HPI. ROS Other: All systems not noted in ROS Statement are negative. Past Medical History Past Medical History: Blood Disorder, GERD/Reflux Additional Past Medical History / Comment(s): Endometriosis, polycystic ovarian syndrome. IRON DEFICIENCY ANEMIA. Stomach Ulcer. ovarian cyst History of Any Multi-Drug Resistant Organisms: None Reported Past Surgical History: Ablation, Section, Cholecystectomy, Hysterectomy, Tubal Ligation, Uterine Ablation Additional Past Surgical History / Comment(s): Laparoscopy X2, Section X3. Right ovary and right tube removed - 2019. cyst removed from chest. AUG 2020 - ADHESION REMOVAL FROM PAST . Vaginal. pelvic biopsy 05/11. PCOS Past Anesthesia/Blood Transfusion Reactions: No Reported Reaction Past Psychological History: Anxiety, Depression Smoking Status: Never smoker Past Alcohol Use History: Rare Past Drug Use History: None Reported - Past Family History Mother Family Medical History: Hyperlipidemia Additional Family Medical History / Comment(s): Depression and anxiety. General Exam - General Exam Comments Initial Comments: GENERAL: The patient is well nourished and well hydrated. VITAL SIGNS: Heart rate, blood pressure, respiratory rate reviewed as recorded in nurse's notes. EYES: Pupils are round and reactive. Extraocular movements are intact. No conjunctival / lid redness or swelling. ENT: No external evidence of injury, swelling, or ecchymosis. Airway is patent. Throat is clear. NECK: Nontender. No swelling or evidence of injury. No subcutaneous emphysema. Trachea is midline. No thyroid mass. HEART: Regular rate and rhythm. Good peripheral pulses. LUNGS/CHEST: Breath sounds clear and equal bilaterally. No rales, rhonchi, or wheezes. No ecchymosis, subcutaneous emphysema, or tenderness. ABDOMEN: Abdomen soft mild tenderness inferior left lower quadrant. No palpable masses or organomegaly. No peritoneal signs. No abdominal wall swelling or ecchymosis. EXTREMITIES: No extremity tenderness. Normal muscle tone and function. No thoracolumbar tenderness. NEUROLOGIC: Sensation is grossly intact. Cranial nerve exam reveals face is symmetrical, tongue is midline, speech is clear. SKIN: No abrasions or ecchymosis is noted. No induration or masses noted. PSYCHIATRIC: Alert and oriented. Appropriate behavior and judgment. Limitations: no limitations Course Vital Signs 02/12/22 16:34 Temperature 98.5 F Pulse Rate 82 Respiratory 20 Rate Blood Pressure 148/88 O2 Sat by Pulse 98 Oximetry Medical Decision Making - Medical Decision Making The patient was seen and examined. All diagnostics are reviewed. IV is established and she receives Toradol for pain. Pelvic ultrasound, laboratory, and urinalysis are ordered. Urinalysis and labs are all essentially within normal limits. The pelvic ultrasound shows a hemorrhagic 2+ centimeter left ovarian cyst. There is no evidence of torsion. Please see report for details. Patient also receives Tylenol. She later receives 4 mg of morphine IV. The patient appears stable for discharge. 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 She just went through extensive testing including MRI scan and apparently is going to be scheduled for a left oophorectomy. She is counseled regarding her diagnosis in detail and leaves in no distress. - Lab Data Result diagrams: 02/12/22 18:13 02/12/22 18:13 Lab Results 02/12/22 02/12/22 02/12/22 Range/Units 18:13 18:13 18:13 WBC 4.8 (3.8-10.6) k/uL RBC 3.79 L (3.80-5.40) m/uL Hgb 11.7 (11.4-16.0) gm/dL Hct 35.1 (34.0-46.0) % MCV 92.5 (80.0-100.0) fL MCH 30.8 (25.0-35.0) pg MCHC 33.3 (31.0-37.0) g/dL RDW 12.7 (11.5-15.5) % Plt Count 186 (150-450) k/uL MPV 8.1 Neutrophils % 64 % Lymphocytes % 30 % Monocytes % 4 % Eosinophils % 1 % Basophils % 0 % Neutrophils # 3.1 (1.3-7.7) k/uL Lymphocytes # 1.4 (1.0-4.8) k/uL Monocytes # 0.2 (0-1.0) k/uL Eosinophils # 0.0 (0-0.7) k/uL Basophils # 0.0 (0-0.2) k/uL Sodium 137 (137-145) mmol/L Potassium 4.0 (3.5-5.1) mmol/L Chloride 105 (98-107) mmol/L Carbon Dioxide 29 (22-30) mmol/L Anion Gap 3 mmol/L BUN 8 (7-17) mg/dL Creatinine 0.81 (0.52-1.04) mg/dL Est GFR (CKD-EPI)AfAm >90 (>60 ml/min/1.73 sqM) Est GFR (CKD-EPI)NonAf >90 (>60 ml/min/1.73 sqM) Glucose 98 (74-99) mg/dL Calcium 9.1 (8.4-10.2) mg/dL Total Bilirubin 0.5 (0.2-1.3) mg/dL AST 19 (14-36) U/L ALT 14 (4-34) U/L Alkaline Phosphatase 91 (38-126) U/L Total Protein 6.6 (6.3-8.2) g/dL Albumin 4.0 (3.5-5.0) g/dL Urine Color Colorless Urine Appearance Clear (Clear) Urine pH 7.0 (5.0-8.0) Ur Specific [place] 1.002 (1.001-1.035) Urine Protein Negative (Negative) Urine Glucose (UA) Negative (Negative) Urine Ketones Negative (Negative) Urine Blood Negative (Negative) Urine Nitrite Negative (Negative) Urine Bilirubin Negative (Negative) Urine Urobilinogen <2.0 (<2.0) mg/dL Ur Leukocyte Esterase Negative (Negative) Disposition Clinical Impression: Pelvic pain, Hemorrhagic ovarian cyst Disposition: HOME SELF-CARE Condition: Good Prescriptions: traMADol HCl [Ultram] 50 - 100 mg PO Q6HR PRN 3 Days #15 tab PRN Reason: Pain Is patient prescribed a controlled substance at d/c from ED?: Yes When asked, does pt state using other controlled substances?: No If prescribed controlled substance>3 days was MAPS reviewed?: Prescribed <3 Days Referrals: Marely De Santiago [Primary Care Provider] - 1-2 days Time of Disposition: 19:39
[2022-02-12 18:19] LABS: Basophils % (A) 0 %; Eosinophils % (A) 1 %; HCT 35.1 % (34.0-46.0); HGB 11.7 gm/dL (11.4-16.0); Lymphocytes # (A) 1.4 k/uL (1.0-4.8); Lymphocytes % (A) 30 %; MCH 30.8 pg (25.0-35.0); MCHC 33.3 g/dL (31.0-37.0); MCV 92.5 fL (80.0-100.0); Mean Platelet Volume 8.1; Monocytes # (A) 0.2 k/uL (0-1.0); Monocytes % (A) 4 %; Neutrophils # (A) 3.1 k/uL (1.3-7.7); Neutrophils % (A) 64 %; Platelet Count 186 k/uL (150-450); RBC 3.79 m/uL (3.80-5.40); RDW 12.7 % (11.5-15.5); WBC 4.8 k/uL (3.8-10.6)
[2022-02-12] MEDS ORDERED: ONDANSETRON 4 MG/2 ML VIAL IVP STA (18:25)
[2022-02-12 18:27] LABS: Appearance,Urine Clear (Clear); Bilirubin,Urine Negative (Negative); Blood,Urine Negative (Negative); Color,Urine Colorless; Glucose,Urine (UA) Negative (Negative); Ketones,Urine Negative (Negative); Leukocyte Esterase,Urine Negative (Negative); Nitrite,Urine Negative (Negative); Protein,Urine Negative (Negative); Specific Gravity,Urine 1.002 (1.001-1.035); Urobilinogen,Urine <2.0 mg/dL (<2.0)
[2022-02-12 18:29] LABS: ALT 14 U/L (4-34); AST 19 U/L (14-36); African American GFR (CKD) >90 (>60 ml/min/1.73 sqM); Alkaline Phosphatase 91 U/L (38-126); Anion Gap 3 mmol/L; Blood Urea Nitrogen 8 mg/dL (7-17); Calcium 9.1 mg/dL (8.4-10.2); Carbon Dioxide 29 mmol/L (22-30); Chloride 105 mmol/L (98-107); Glucose 98 mg/dL (74-99); Non-African American GFR(CKD) >90 (>60 ml/min/1.73 sqM); Sodium 137 mmol/L (137-145); Total Bilirubin 0.5 mg/dL (0.2-1.3); Total Protein 6.6 g/dL (6.3-8.2)
[2022-02-12] MEDS ORDERED: ACETAMINOPHEN TAB 500 MG TAB PO STA (18:31)
--- NOTE | 2022-02-12 19:15 | US ---
EXAMINATION TYPE: US pelvic complete DATE OF EXAM: 02/12/2022 COMPARISON: US 2021 CLINICAL HISTORY: left pelvic pain. Pelvic pain x 1 day, history of hysterectomy and right oophorecto my TECHNIQUE: . Transvaginal ER exam. Date of LMP: Unknown EXAM MEASUREMENTS: Left Ovary: 4.4 x 2.7 x 2.7 cm 1. Uterus: surgically absent 2. Endometrium: surgically absent 3. Right Ovary: surgically absent 4. Left Ovary: 2.6 x 1.8 x 2.2cm complex cyst Spectral, color and waveform doppler imaging shows good arterial and venous flow within the left ov patt; there is no evidence for ovarian torsion. 5. Bilateral Adnexa: free fluid in left adnexa 6. Posterior cul-de-sac: free fluid IMPRESSION: 1. Left ovarian complex follicle likely representing hemorrhagic follicle, not definitely seen on . 2. Simple free fluid in the pelvis is nonspecific.
[2022-02-12] MEDS ORDERED: MORPHINE SULFATE 4 MG/ML SYRINGE IV STA (19:37)
--- NOTE | 2022-02-12 20:03 | ED ---
Medical Decision Making - Lab Data Result diagrams: 02/12/22 18:13 02/12/22 18:13 Lab Results 02/12/22 02/12/22 02/12/22 Range/Units 18:13 18:13 18:13 WBC 4.8 (3.8-10.6) k/uL RBC 3.79 L (3.80-5.40) m/uL Hgb 11.7 (11.4-16.0) gm/dL Hct 35.1 (34.0-46.0) % MCV 92.5 (80.0-100.0) fL MCH 30.8 (25.0-35.0) pg MCHC 33.3 (31.0-37.0) g/dL RDW 12.7 (11.5-15.5) % Plt Count 186 (150-450) k/uL MPV 8.1 Neutrophils % 64 % Lymphocytes % 30 % Monocytes % 4 % Eosinophils % 1 % Basophils % 0 % Neutrophils # 3.1 (1.3-7.7) k/uL Lymphocytes # 1.4 (1.0-4.8) k/uL Monocytes # 0.2 (0-1.0) k/uL Eosinophils # 0.0 (0-0.7) k/uL Basophils # 0.0 (0-0.2) k/uL Sodium 137 (137-145) mmol/L Potassium 4.0 (3.5-5.1) mmol/L Chloride 105 (98-107) mmol/L Carbon Dioxide 29 (22-30) mmol/L Anion Gap 3 mmol/L BUN 8 (7-17) mg/dL Creatinine 0.81 (0.52-1.04) mg/dL Est GFR (CKD-EPI)AfAm >90 (>60 ml/min/1.73 sqM) Est GFR (CKD-EPI)NonAf >90 (>60 ml/min/1.73 sqM) Glucose 98 (74-99) mg/dL Calcium 9.1 (8.4-10.2) mg/dL Total Bilirubin 0.5 (0.2-1.3) mg/dL AST 19 (14-36) U/L ALT 14 (4-34) U/L Alkaline Phosphatase 91 (38-126) U/L Total Protein 6.6 (6.3-8.2) g/dL Albumin 4.0 (3.5-5.0) g/dL Urine Color Colorless Urine Appearance Clear (Clear) Urine pH 7.0 (5.0-8.0) Ur Specific [place] 1.002 (1.001-1.035) Urine Protein Negative (Negative) Urine Glucose (UA) Negative (Negative) Urine Ketones Negative (Negative) Urine Blood Negative (Negative) Urine Nitrite Negative (Negative) Urine Bilirubin Negative (Negative) Urine Urobilinogen <2.0 (<2.0) mg/dL Ur Leukocyte Esterase Negative (Negative) Disposition Clinical Impression: Pelvic pain, Hemorrhagic ovarian cyst Disposition: HOME SELF-CARE Condition: Good Instructions (If sedation given, give patient instructions): Ruptured Ovarian Cyst (ED) Prescriptions: traMADol HCl [Ultram] 50 - 100 mg PO Q6HR PRN 3 Days #15 tab PRN Reason: Pain Is patient prescribed a controlled substance at d/c from ED?: No Referrals: Marely De Santiago [Primary Care Provider] - 1-2 days Time of Disposition: 20:02
[2022-02-12 20:15] VITALS: BP 134/80; PULSE 77; RESP 18; TEMP 98.4
== END 2022-02-12 20:16 | disposition home or self-care (01) ==
LOC: EC 15:55
DX: N83.202 Unspecified ovarian cyst, left side (principal); K21.9 Gastro-esophageal reflux disease without esophagitis; Z79.83 Long term (current) use of bisphosphonates; Z88.1 Allergy status to other antibiotic agents; Z91.048 Other nonmedicinal substance allergy status; Z88.0 Allergy status to penicillin; Z88.2 Allergy status to sulfonamides; Z88.8 Allergy status to other drugs, medicaments and biological substances
CPT/HCPCS: 36415; 80053; 85025; 81003; 93976; 76830; 99284; 96374; 96375; J2270; J2405; J1885

== ENCOUNTER 2022-02-18 18:46 | Emergency (ER) | payer OTHER ==
[2022-02-18 18:51] VITALS: TEMP 97.3
[2022-02-18] MEDS ORDERED: HYDROmorphone 0.5 MG/0.5 ML SYRINGE IVP STA ×2 (19:14→20:52)
[2022-02-18 19:55] LABS: Basophils % (A) 0 %; Eosinophils % (A) 1 %; Lymphocytes # (A) 1.1 k/uL (1.0-4.8); Lymphocytes % (A) 25 %; MCH 30.7 pg (25.0-35.0); MCHC 33.2 g/dL (31.0-37.0); MCV 92.5 fL (80.0-100.0); Mean Platelet Volume 7.7; Monocytes # (A) 0.2 k/uL (0-1.0); Monocytes % (A) 5 %; Neutrophils % (A) 68 %; Platelet Count 170 k/uL (150-450); RBC 3.57 m/uL (3.80-5.40); RDW 12.8 % (11.5-15.5); WBC 4.4 k/uL (3.8-10.6)
[2022-02-18 19:57] LABS: Appearance,Urine Clear (Clear); Bilirubin,Urine Negative (Negative); Blood,Urine Negative (Negative); Color,Urine Light Yellow; Glucose,Urine (UA) Negative (Negative); Ketones,Urine Negative (Negative); Leukocyte Esterase,Urine Negative (Negative); Nitrite,Urine Negative (Negative); PH, Urine 6.5 (5.0-8.0); Protein,Urine Negative (Negative); Specific Gravity,Urine 1.013 (1.001-1.035); Urobilinogen,Urine <2.0 mg/dL (<2.0)
[2022-02-18 20:05] LABS: ALT 15 U/L (4-34); AST 23 U/L (14-36); African American GFR (CKD) >90 (>60 ml/min/1.73 sqM); Albumin 3.8 g/dL (3.5-5.0); Alkaline Phosphatase 94 U/L (38-126); Anion Gap 6 mmol/L; Blood Urea Nitrogen 9 mg/dL (7-17); Calcium 9.2 mg/dL (8.4-10.2); Carbon Dioxide 25 mmol/L (22-30); Chloride 107 mmol/L (98-107); Glucose 107 mg/dL (74-99); Non-African American GFR(CKD) >90 (>60 ml/min/1.73 sqM); Sodium 138 mmol/L (137-145); Total Bilirubin 0.7 mg/dL (0.2-1.3); Total Protein 6.3 g/dL (6.3-8.2)
--- NOTE | 2022-02-18 20:41 | US ---
EXAMINATION TYPE: US transvaginal DATE OF EXAM: 02/18/2022 COMPARISON: CT, US CLINICAL HISTORY: pelvic pain. Pelvic pain. Hx hysterectomy and right oophorectomy. Cervix tissue rem ains. Hx 3 C sections, endometriosis, PCOS, tubal ligation. TECHNIQUE: Transvaginal (TV). Date of LMP: Unknown EXAM MEASUREMENTS: Left Ovary: 3.7 x 2.2 x 2.6 cm 1. Uterus: Cervix tissue remains. Fluid seen within cervix: 2.2 x 0.7 x 0.7 cm. Hypoechoic area seen cervix left: 0.7 x 0.6 x 0.6 cm. 2. Endometrium: 3. Right Ovary: Surgically absent 4. Left Ovary: Complex area seen: 1.8 x 1.5 x 1.2 cm. Subcentimeter anechoic areas seen. Spectral, color and waveform doppler imaging shows arterial and venous flow within the left ovary; there is no evidence for ovarian torsion. Right ovary is surgically absent. 5. Bilateral Adnexa: Appear wnl 6. Posterior cul-de-sac: Fluid is seen. IMPRESSION: No significant abnormality in this pelvic ultrasound. There is tiny amount of fluid in the cervical c anal. Tiny amount of free fluid in the cul-de-sac could be physiologic.
--- NOTE | 2022-02-18 20:45 | ED ---
Abdominal Pain HPI - General Chief Complaint: Abdominal Pain Stated Complaint: Abd pain/lt side pain Time Seen by Provider: 02/18/22 18:50 Source: patient Mode of arrival: wheelchair Limitations: no limitations - History of Present Illness Initial Comments: 31-year-old female past medical history of endometriosis, polycystic ovarian syndrome presents to the emergency department for left lower quadrant pelvic pain. Patient does have a long-standing history of this. Was seen earlier this week as she felt that her cyst that is known on the left side had ruptured. Patient has had increasing pain since she has been discharged. Admits to nausea with diarrhea with no changes in her urination. Patient is status post hysterectomy. States that she is seeing a information coordinator out of [place]. She is expected to have excision of her left tube and ovary in 4 weeks. Was taking tramadol for pain control however ran out. No fevers. Temperature projection transmitted infections as she is not sexually active. 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 - Related Data Home Medications Medication Instructions Recorded Confirmed Citalopram Hydrobromide [CeleXA] 40 mg PO HS 02/12/22 02/12/22 Nitrofurantoin Monohyd/M-Cryst 100 mg PO BID 02/12/22 02/12/22 [Macrobid] Omeprazole Magnesium [PriLOSEC OTC] 20 mg PO HS 02/12/22 02/12/22 Previous Rx's Medication Instructions Recorded Ondansetron Odt [Zofran Odt] 4 mg PO Q8HR PRN #10 tab 02/01/22 traMADol HCl [Ultram] 50 - 100 mg PO Q6HR PRN 3 Days #15 02/12/22 tab traMADol HCl [Ultram] 50 mg PO Q6HR PRN 3 Days #12 tab 02/18/22 Allergies Allergy/AdvReac Type Severity Reaction Status Date / Time adhesive tape Allergy Rash/Hives Verified 02/18/22 18:51 aloe vera Allergy Rash/Hives Verified 02/18/22 18:51 azithromycin Allergy Rash/Hives Verified 02/18/22 18:51 cephalexin Allergy Rash/Hives Verified 02/18/22 18:51 metronidazole [From Flagyl] Allergy Rash/Hives Verified 02/18/22 18:51 Penicillins Allergy Rash/Hives Verified 02/18/22 18:51 sulfamethoxazole Allergy Rash/Hives Verified 02/18/22 18:51 [From Bactrim] trimethoprim [From Bactrim] Allergy Rash/Hives Verified 02/18/22 18:51 alprazolam [From Xanax] AdvReac MAKES Verified 02/18/22 18:51 PARANOID dicyclomine [From Bentyl] AdvReac constipatio Verified 02/18/22 18:51 n Review of Systems ROS Statement: Those systems with pertinent positive or pertinent negative responses have been documented in the HPI. ROS Other: All systems not noted in ROS Statement are negative. Past Medical History Past Medical History: Blood Disorder, GERD/Reflux Additional Past Medical History / Comment(s): Endometriosis, polycystic ovarian syndrome. IRON DEFICIENCY ANEMIA. Stomach Ulcer. ovarian cyst History of Any Multi-Drug Resistant Organisms: None Reported Past Surgical History: Ablation, Section, Cholecystectomy, Hysterectomy, Tubal Ligation, Uterine Ablation Additional Past Surgical History / Comment(s): Laparoscopy X2, Section X3. Right ovary and right tube removed - 2019. cyst removed from chest. AUG 2020 - ADHESION REMOVAL FROM PAST . Vaginal. pelvic biopsy 05/11. PCOS Past Anesthesia/Blood Transfusion Reactions: No Reported Reaction Past Psychological History: Anxiety, Depression Smoking Status: Never smoker Past Alcohol Use History: Rare Past Drug Use History: None Reported - Past Family History Mother Family Medical History: Hyperlipidemia Additional Family Medical History / Comment(s): Depression and anxiety. General Exam Limitations: no limitations General appearance: alert, in no apparent distress Head exam: Present: atraumatic, normocephalic, normal inspection Eye exam: Present: normal appearance, PERRL, EOMI. Absent: scleral icterus, conjunctival injection, periorbital swelling ENT exam: Present: normal exam, mucous membranes moist Neck exam: Present: normal inspection. Absent: tenderness, meningismus, lymphadenopathy Respiratory exam: Present: normal lung sounds bilaterally. Absent: respiratory distress, wheezes, rales, rhonchi, stridor Cardiovascular Exam: Present: regular rate, normal rhythm, normal heart sounds. Absent: systolic murmur, diastolic murmur, rubs, gallop, clicks GI/Abdominal exam: Present: soft, tenderness (left lower quadrant), normal bowel sounds. Absent: distended, guarding, rebound, rigid Extremities exam: Present: normal inspection, full ROM, normal capillary refill. Absent: tenderness, pedal edema, joint swelling, calf tenderness Back exam: Present: normal inspection Neurological exam: Present: alert, oriented X3, CN II-XII intact Psychiatric exam: Present: normal affect, normal mood Skin exam: Present: warm, dry, intact, normal color. Absent: rash Course Vital Signs 02/18/22 02/18/22 18:47 21:23 Temperature 97.3 F L Pulse Rate 93 78 Respiratory 18 16 Rate Blood Pressure 142/87 127/77 O2 Sat by Pulse 98 98 Oximetry Medical Decision Making - Medical Decision Making Upon arrival patient was placed into room 18. Thorough history and physical exam was performed. IV access was established. Patient admits her pain medications. Laboratory studies are conducted and an ultrasound is performed which continues to demonstrate a hemorrhagic cyst in the left lower quadrant. Patient is a cardio aware of the complex area and has surgery planned in 4 weeks. No new changes. 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 Return for any new or worsening symptoms per patient was discharged home in stable condition - Lab Data Result diagrams: 02/18/22 19:44 02/18/22 19:44 Lab Results 02/18/22 02/18/22 02/18/22 Range/Units 19:44 19:44 19:44 WBC 4.4 (3.8-10.6) k/uL RBC 3.57 L (3.80-5.40) m/uL Hgb 11.0 L (11.4-16.0) gm/dL Hct 33.0 L (34.0-46.0) % MCV 92.5 (80.0-100.0) fL MCH 30.7 (25.0-35.0) pg MCHC 33.2 (31.0-37.0) g/dL RDW 12.8 (11.5-15.5) % Plt Count 170 (150-450) k/uL MPV 7.7 Neutrophils % 68 % Lymphocytes % 25 % Monocytes % 5 % Eosinophils % 1 % Basophils % 0 % Neutrophils # 3.0 (1.3-7.7) k/uL Lymphocytes # 1.1 (1.0-4.8) k/uL Monocytes # 0.2 (0-1.0) k/uL Eosinophils # 0.0 (0-0.7) k/uL Basophils # 0.0 (0-0.2) k/uL Sodium 138 (137-145) mmol/L Potassium 4.0 (3.5-5.1) mmol/L Chloride 107 (98-107) mmol/L Carbon Dioxide 25 (22-30) mmol/L Anion Gap 6 mmol/L BUN 9 (7-17) mg/dL Creatinine 0.71 (0.52-1.04) mg/dL Est GFR (CKD-EPI)AfAm >90 (>60 ml/min/1.73 sqM) Est GFR (CKD-EPI)NonAf >90 (>60 ml/min/1.73 sqM) Glucose 107 H (74-99) mg/dL Calcium 9.2 (8.4-10.2) mg/dL Total Bilirubin 0.7 (0.2-1.3) mg/dL AST 23 (14-36) U/L ALT 15 (4-34) U/L Alkaline Phosphatase 94 (38-126) U/L Total Protein 6.3 (6.3-8.2) g/dL Albumin 3.8 (3.5-5.0) g/dL Urine Color Light Yellow Urine Appearance Clear (Clear) Urine pH 6.5 (5.0-8.0) Ur Specific [place] 1.013 (1.001-1.035) Urine Protein Negative (Negative) Urine Glucose (UA) Negative (Negative) Urine Ketones Negative (Negative) Urine Blood Negative (Negative) Urine Nitrite Negative (Negative) Urine Bilirubin Negative (Negative) Urine Urobilinogen <2.0 (<2.0) mg/dL Ur Leukocyte Esterase Negative (Negative) Disposition Clinical Impression: Pelvic pain Disposition: HOME SELF-CARE Condition: Stable Instructions (If sedation given, give patient instructions): Pelvic Pain in Women (ED) Additional Instructions: Please follow-up with your primary care doctor in 2-4 days and return for any new or worsening symptoms Prescriptions: traMADol HCl [Ultram] 50 mg PO Q6HR PRN 3 Days #12 tab PRN Reason: Pain Is patient prescribed a controlled substance at d/c from ED?: Yes When asked, does pt state using other controlled substances?: No If prescribed controlled substance>3 days was MAPS reviewed?: Prescribed <3 Days If opioid is for acute pain is fill amount 7 days or less?: Yes If Rx opioid, was Start Talking consent form obtained?: Yes Referrals: Marely De Santiago [Primary Care Provider] - 1-2 days Time of Disposition: 20:45
[2022-02-18] MEDS ORDERED: KETOROLAC 15 MG/ML 1 ML VIAL IVP STA (20:51)
[2022-02-18 21:27] VITALS: BP 127/77; PULSE 78; RESP 16
== END 2022-02-18 21:23 | disposition home or self-care (01) ==
LOC: EC 18:46
DX: R10.9 Unspecified abdominal pain (principal); Z79.83 Long term (current) use of bisphosphonates; K21.9 Gastro-esophageal reflux disease without esophagitis; Z88.1 Allergy status to other antibiotic agents; Z88.0 Allergy status to penicillin; Z91.048 Other nonmedicinal substance allergy status; Z88.8 Allergy status to other drugs, medicaments and biological substances; Z88.6 Allergy status to analgesic agent
CPT/HCPCS: 36415; 80053; 85025; 81003; 93976; 76830; 99284; 96374; 96375; 96376; J1885; J1170

== ENCOUNTER 2022-03-12 17:22 | Emergency (ER) | payer OTHER ==
[2022-03-12 17:31] VITALS: TEMP 98.6
[2022-03-12] MEDS ORDERED: ONDANSETRON 4 MG/2 ML VIAL IVP STA (17:33)
[2022-03-12] MEDS ORDERED: HYDROmorphone 1 MG/ML 1 ML SYRINGE IVP STA ×2 (17:33→19:09)
[2022-03-12] MEDS ORDERED: SODIUM CHLORIDE 0.9% 1,000 ML IV STA (17:33)
--- NOTE | 2022-03-12 17:50 | ED ---
Abdominal Pain HPI - General Chief Complaint: Abdominal Pain Stated Complaint: cyst Time Seen by Provider: 03/12/22 17:28 Source: patient, family, EMS, RN notes reviewed Mode of arrival: EMS Limitations: no limitations - History of Present Illness Initial Comments: This is a 31-year-old female who presents to the emergency department for left sided pelvic pain. Patient is very well-known to this emergency department for recurrent pain associated with ovarian cysts. Patient states that this morning, she developed incredibly severe pain in the left lower quadrant that did not improve with tramadol and Toradol. States that this is the worst pain she has ever felt, and she has associated pressure. Also reports associated nausea. She was treated here 5 days ago for the same symptoms. She did have a hemorrhagic ovarian cyst that was noted to be increasing in size. She does have a left salpingo-oophorectomy scheduled on March 29 for definitive management of these recurrent symptoms. Denies any fevers, chills, sore throat, cough, dyspnea, chest pain, palpitations, diarrhea, back pain, or headaches. MD Complaint: abdominal pain Location: LLQ Associated Symptoms: nausea - Related Data Home Medications Medication Instructions Recorded Confirmed Citalopram Hydrobromide [CeleXA] 40 mg PO HS 02/12/22 03/07/22 Ibuprofen [Motrin] 800 mg PO TID PRN 03/07/22 03/07/22 Levofloxacin [Levaquin] 750 mg PO DAILY 03/07/22 03/07/22 Omeprazole 20 mg PO BID 03/07/22 03/07/22 Ondansetron Odt [Zofran Odt] 4 mg PO DAILY 03/07/22 03/07/22 metroNIDAZOLE [Flagyl] 500 mg PO TID 03/07/22 03/07/22 Previous Rx's Medication Instructions Recorded traMADol HCl [Ultram] 50 - 100 mg PO Q6HR PRN 3 Days #15 02/12/22 tab HYDROcodone/APAP 7.5-325MG [Parker 1 tab PO Q6HR PRN 3 Days #12 tab 03/07/22 7.5-325] Ketorolac [Toradol] 10 mg PO Q6HR PRN #12 tab 03/07/22 Fluconazole [Diflucan] 150 mg PO ONCE #2 tab 03/12/22 HYDROcodone/APAP 5-325MG [Parker 1 tab PO Q6HR PRN 3 Days #12 tab 03/12/22 5-325] Ketorolac [Toradol] 10 mg PO Q6HR PRN #12 tab 03/12/22 Allergies Allergy/AdvReac Type Severity Reaction Status Date / Time adhesive tape Allergy Rash/Hives Verified 03/12/22 19:14 aloe vera Allergy Rash/Hives Verified 03/12/22 19:14 azithromycin Allergy Rash/Hives Verified 03/12/22 19:14 cephalexin Allergy Rash/Hives Verified 03/12/22 19:14 metronidazole [From Flagyl] Allergy Rash/Hives Verified 03/12/22 19:14 Penicillins Allergy Rash/Hives Verified 03/12/22 19:14 sulfamethoxazole Allergy Rash/Hives Verified 03/12/22 19:14 [From Bactrim] trimethoprim [From Bactrim] Allergy Rash/Hives Verified 03/12/22 19:14 alprazolam [From Xanax] AdvReac MAKES Verified 03/12/22 19:14 PARANOID dicyclomine [From Bentyl] AdvReac constipatio Verified 03/12/22 19:14 n Review of Systems ROS Statement: Those systems with pertinent positive or pertinent negative responses have been documented in the HPI. ROS Other: All systems not noted in ROS Statement are negative. Past Medical History Past Medical History: Blood Disorder, GERD/Reflux Additional Past Medical History / Comment(s): Endometriosis, polycystic ovarian syndrome. IRON DEFICIENCY ANEMIA. Stomach Ulcer. ovarian cyst History of Any Multi-Drug Resistant Organisms: None Reported Past Surgical History: Ablation, Section, Cholecystectomy, Hysterectomy, Tubal Ligation, Uterine Ablation Additional Past Surgical History / Comment(s): Laparoscopy X2, Section X3. Right ovary and right tube removed - 2019. cyst removed from chest. AUG 2020 - ADHESION REMOVAL FROM PAST . Vaginal. pelvic biopsy 05/11. PCOS Past Anesthesia/Blood Transfusion Reactions: No Reported Reaction Past Psychological History: Anxiety, Depression Smoking Status: Never smoker Past Alcohol Use History: Rare Past Drug Use History: None Reported - Past Family History Mother Family Medical History: Hyperlipidemia Additional Family Medical History / Comment(s): Depression and anxiety. General Exam Limitations: no limitations General appearance: alert, in distress Head exam: Present: atraumatic, normocephalic, normal inspection Respiratory exam: Present: normal lung sounds bilaterally. Absent: respiratory distress, wheezes, rales, rhonchi, stridor Cardiovascular Exam: Present: regular rate, normal rhythm, normal heart sounds. Absent: systolic murmur, diastolic murmur, rubs, gallop, clicks GI/Abdominal exam: Present: soft, tenderness (LLQ/left pelvic), normal bowel sounds. Absent: distended, guarding, rebound, rigid Neurological exam: Present: alert, oriented X3, CN II-XII intact Psychiatric exam: Present: normal affect, normal mood Skin exam: Present: warm, dry, intact, normal color. Absent: rash Course Vital Signs 03/12/22 03/12/22 17:24 20:58 Temperature 98.6 F Pulse Rate 100 87 Respiratory 16 15 Rate Blood Pressure 141/97 137/67 O2 Sat by Pulse 97 Oximetry Medical Decision Making - Medical Decision Making This is a 31-year-old female who presents to the emergency department for left sided pelvic pain. Lab work revealed hypokalemia, she was given 40 mEq of K- dur. Lab work was otherwise nonactionable. Transvaginal ultrasound obtained to evaluate for possible ovarian torsion or cyst rupture. Ultrasound did not reveal any significant change from 5 days ago. There were no acute findings to explain the patient's symptoms. Her symptoms were managed in the emergency department. Discussed with the patient that I will discharge her with another 3 day course of Parker to help with her symptoms. Refills also provided on Toradol. Advised trying one of her muscle relaxants if she experiences a flareup to relieve surrounding muscle tension. She inquired about treatment for a yeast infection due to some white discharge. States that she has external vulvar irritation as well, which is what it feels like with her typical yeast infections. Will prescribe the patient with 2 tablets of Diflucan. Advised she take the second tablet 3 days after the first dose if her symptoms persist. Return precautions reviewed in depth, the patient is instructed to return to the emergency department with any new, worsening, or concerning symptoms. Patient verbalized understanding. This case was discussed in detail with the attending ED physician. Presentation, findings, and treatment plan discussed in detail as well. - Lab Data Result diagrams: 03/12/22 18:12 03/12/22 18:12 Lab Results 03/12/22 03/12/22 03/12/22 Range/Units 17:20 18:12 18:12 WBC 4.3 (3.8-10.6) k/uL RBC 3.63 L (3.80-5.40) m/uL Hgb 11.1 L (11.4-16.0) gm/dL Hct 33.8 L (34.0-46.0) % MCV 93.1 (80.0-100.0) fL MCH 30.7 (25.0-35.0) pg MCHC 32.9 (31.0-37.0) g/dL RDW 12.5 (11.5-15.5) % Plt Count 183 (150-450) k/uL MPV 8.2 Neutrophils % 67 % Lymphocytes % 26 % Monocytes % 5 % Eosinophils % 1 % Basophils % 0 % Neutrophils # 2.9 (1.3-7.7) k/uL Lymphocytes # 1.1 (1.0-4.8) k/uL Monocytes # 0.2 (0-1.0) k/uL Eosinophils # 0.0 (0-0.7) k/uL Basophils # 0.0 (0-0.2) k/uL Sodium 140 (137-145) mmol/L Potassium 3.0 L (3.5-5.1) mmol/L Chloride 109 H (98-107) mmol/L Carbon Dioxide 24 (22-30) mmol/L Anion Gap 7 mmol/L BUN 10 (7-17) mg/dL Creatinine 0.61 (0.52-1.04) mg/dL Est GFR (CKD-EPI)AfAm >90 (>60 ml/min/1.73 sqM) Est GFR (CKD-EPI)NonAf >90 (>60 ml/min/1.73 sqM) Glucose 85 (74-99) mg/dL Calcium 7.4 L (8.4-10.2) mg/dL Total Bilirubin 0.4 (0.2-1.3) mg/dL AST 20 (14-36) U/L ALT 11 (4-34) U/L Alkaline Phosphatase 48 (38-126) U/L Total Protein 5.3 L (6.3-8.2) g/dL Albumin 3.0 L (3.5-5.0) g/dL Urine Color Yellow Urine Appearance Cloudy H (Clear) Urine pH 6.0 (5.0-8.0) Ur Specific [place] 1.009 (1.001-1.035) Urine Protein Negative (Negative) Urine Glucose (UA) Negative (Negative) Urine Ketones Negative (Negative) Urine Blood Negative (Negative) Urine Nitrite Negative (Negative) Urine Bilirubin Negative (Negative) Urine Urobilinogen <2.0 (<2.0) mg/dL Ur Leukocyte Esterase Small H (Negative) Urine RBC 1 (0-5) /hpf Urine WBC 6 H (0-5) /hpf Ur Squamous Epith Cells 5 H (0-4) /hpf Urine Bacteria Many H (None) /hpf Urine Mucus Few H (None) /hpf - Radiology Data Radiology results: report reviewed, image reviewed Disposition Clinical Impression: Left ovarian cyst Disposition: HOME SELF-CARE Instructions (If sedation given, give patient instructions): Ovarian Cyst (ED) Additional Instructions: Return to the emergency department with any new, worsening, or concerning symptoms. 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 Try taking a muscle relaxant when the symptoms happen again to see if it is beneficial for surrounding muscle tension. Take the Parker sparingly when your pain is the most severe. Take one tablet of the Diflucan and repeat the dose in 72 hours if symptoms persist. Prescriptions: Fluconazole [Diflucan] 150 mg PO ONCE #2 tab HYDROcodone/APAP 5-325MG [Parker 5-325] 1 tab PO Q6HR PRN 3 Days #12 tab PRN Reason: Pain Ketorolac [Toradol] 10 mg PO Q6HR PRN #12 tab PRN Reason: Pain Is patient prescribed a controlled substance at d/c from ED?: Yes Referrals: Marely De Santiago [Primary Care Provider] - 1-2 days
[2022-03-12 17:55] LABS: Appearance,Urine Cloudy (Clear); Bacteria,Urine Many /hpf; Bilirubin,Urine Negative (Negative); Blood,Urine Negative (Negative); Color,Urine Yellow; Glucose,Urine (UA) Negative (Negative); Ketones,Urine Negative (Negative); Leukocyte Esterase,Urine Small (Negative); Mucus,Urine Few /hpf; Nitrite,Urine Negative (Negative); Protein,Urine Negative (Negative); RBC,Urine 1 /hpf (0-5); Specific Gravity,Urine 1.009 (1.001-1.035); Squamous Epithelial Cell,Urine 5 /hpf (0-4); Urobilinogen,Urine <2.0 mg/dL (<2.0); WBC,Urine 6 /hpf (0-5)
[2022-03-12 18:15] LABS: Basophils % (A) 0 %; Eosinophils % (A) 1 %; HCT 33.8 % (34.0-46.0); HGB 11.1 gm/dL (11.4-16.0); Lymphocytes # (A) 1.1 k/uL (1.0-4.8); Lymphocytes % (A) 26 %; MCH 30.7 pg (25.0-35.0); MCHC 32.9 g/dL (31.0-37.0); MCV 93.1 fL (80.0-100.0); Mean Platelet Volume 8.2; Monocytes # (A) 0.2 k/uL (0-1.0); Monocytes % (A) 5 %; Neutrophils # (A) 2.9 k/uL (1.3-7.7); Neutrophils % (A) 67 %; Platelet Count 183 k/uL (150-450); RBC 3.63 m/uL (3.80-5.40); RDW 12.5 % (11.5-15.5); WBC 4.3 k/uL (3.8-10.6)
[2022-03-12 18:25] LABS: ALT 11 U/L (4-34); AST 20 U/L (14-36); African American GFR (CKD) >90 (>60 ml/min/1.73 sqM); Alkaline Phosphatase 48 U/L (38-126); Anion Gap 7 mmol/L; Blood Urea Nitrogen 10 mg/dL (7-17); Calcium 7.4 mg/dL (8.4-10.2); Carbon Dioxide 24 mmol/L (22-30); Chloride 109 mmol/L (98-107); Glucose 85 mg/dL (74-99); Non-African American GFR(CKD) >90 (>60 ml/min/1.73 sqM); Sodium 140 mmol/L (137-145); Total Bilirubin 0.4 mg/dL (0.2-1.3); Total Protein 5.3 g/dL (6.3-8.2)
--- NOTE | 2022-03-12 18:54 | US ---
EXAMINATION TYPE: US transvaginal DATE OF EXAM: 03/12/2022 COMPARISON: Most recent: 03/07/22 CLINICAL HISTORY: Left pelvic pain, known ovarian cyst. Left pelvic pain, known left ovarian cyst. Pa rtial hysterectomy, rt oophorectomy in 2019. . TECHNIQUE: Transvaginal sonographic images of the pelvis were acquired. EXAM MEASUREMENTS: Uterus: Surgically absent Endometrial Stripe: Surgically absent Right Ovary: Surgically absent Left Ovary: 4.2 x 2.2 x 2.5 cm 1. Uterus: Surgically absent 2. Endometrium: Surgically absent 3. Right Ovary: Surgically absent 4. Left Ovary: Complex area seen measuring 2.3 x 2.2 x 2.1 cm Spectral, color and waveform doppler imaging shows good arterial and venous flow within the ovaries ; there is no evidence for ovarian torsion. 5. Bilateral Adnexa: Free fluid seen in left adnexa adjacent to left ovary 6. Posterior cul-de-sac: wnl Study similar to the one done 03/07/22. IMPRESSION: 1. Left ovary complex follicle likely representing hemorrhagic follicle. Findings similar to 03/07/20. 2. Trace free fluid within the pelvis 3. Surgically absent right ovary and uterus.
[2022-03-12] MEDS ORDERED: POTASSIUM CHLORIDE ER 20 MEQ TAB.ER PO STA (19:08)
[2022-03-12] MEDS ORDERED: KETOROLAC 15 MG/ML 1 ML VIAL IVP STA (19:11)
[2022-03-12 20:58] VITALS: BP 137/67; PULSE 87; RESP 15
== END 2022-03-12 20:59 | disposition home or self-care (01) ==
LOC: EC 17:22
DX: N83.202 Unspecified ovarian cyst, left side (principal); Z79.83 Long term (current) use of bisphosphonates; Z88.0 Allergy status to penicillin; Z88.6 Allergy status to analgesic agent; Z88.2 Allergy status to sulfonamides; Z88.3 Allergy status to other anti-infective agents; Z88.8 Allergy status to other drugs, medicaments and biological substances; Z91.040 Latex allergy status
CPT/HCPCS: 36415; 80053; 85025; 81001; 93976; 76830; 99284; 96374; 96375; J2405; J1170

== ENCOUNTER 2022-03-19 14:43 | Emergency (ER) | payer OTHER ==
[2022-03-19 14:50] VITALS: TEMP 98.7
[2022-03-19] MEDS ORDERED: KETOROLAC 15 MG/ML 1 ML VIAL IM STA (15:10)
--- NOTE | 2022-03-19 15:10 | ED ---
General Adult HPI - General Chief complaint: Vaginal Bleeding Stated complaint: vaginal discharged Time Seen by Provider: 03/19/22 15:03 Source: patient, RN notes reviewed, old records reviewed Mode of arrival: ambulatory Limitations: no limitations - History of Present Illness Initial comments: Patient is a 31-year-old female presents to the emergency room with complaints of left flank region pain consistent with her known ovarian cyst that she is following with [facility] for. She has been to the emergency room multiple times recently for severe pain in the area and has had multiple ultrasounds done with her last ultrasound on 03/12/2022 showing an absent uterus, absent endometrial strip, absent right ovary and left ovary with a 2.2 cm follicular cyst. No ovarian torsion. Her in addition to pain she is complaining of some clear discharge and some bleeding this morning which has resolved. She reports no previously bleeding bleeding from the region and cost concern. She denies any foul odor or purulent drainage. She denies any chest pain, shortness of breath, abdominal pain not related to flank pain, nausea, vomiting, fevers or chills. In addition to her history of polycystic ovarian disease she has a medical history significant for endometriosis, iron deficiency anemia and GERD. - Related Data Home Medications Medication Instructions Recorded Confirmed Citalopram Hydrobromide [CeleXA] 40 mg PO HS 02/12/22 03/07/22 Ibuprofen [Motrin] 800 mg PO TID PRN 03/07/22 03/07/22 Levofloxacin [Levaquin] 750 mg PO DAILY 03/07/22 03/07/22 Omeprazole 20 mg PO BID 03/07/22 03/07/22 Ondansetron Odt [Zofran Odt] 4 mg PO DAILY 03/07/22 03/07/22 metroNIDAZOLE [Flagyl] 500 mg PO TID 03/07/22 03/07/22 Previous Rx's Medication Instructions Recorded traMADol HCl [Ultram] 50 - 100 mg PO Q6HR PRN 3 Days #15 02/12/22 tab HYDROcodone/APAP 7.5-325MG [[place] 1 tab PO Q6HR PRN 3 Days #12 tab 03/07/22 7.5-325] Ketorolac [Toradol] 10 mg PO Q6HR PRN #12 tab 03/07/22 Fluconazole [Diflucan] 150 mg PO ONCE #2 tab 03/12/22 HYDROcodone/APAP 5-325MG [[place] 1 tab PO Q6HR PRN 3 Days #12 tab 03/12/22 5-325] Ketorolac [Toradol] 10 mg PO Q6HR PRN #12 tab 03/12/22 Allergies Allergy/AdvReac Type Severity Reaction Status Date / Time adhesive tape Allergy Rash/Hives Verified 03/19/22 14:50 aloe vera Allergy Rash/Hives Verified 03/19/22 14:50 azithromycin Allergy Rash/Hives Verified 03/19/22 14:50 cephalexin Allergy Rash/Hives Verified 03/19/22 14:50 metronidazole [From Flagyl] Allergy Rash/Hives Verified 03/19/22 14:50 Penicillins Allergy Rash/Hives Verified 03/19/22 14:50 sulfamethoxazole Allergy Rash/Hives Verified 03/19/22 14:50 [From Bactrim] trimethoprim [From Bactrim] Allergy Rash/Hives Verified 03/19/22 14:50 alprazolam [From Xanax] AdvReac MAKES Verified 03/19/22 14:50 PARANOID dicyclomine [From Bentyl] AdvReac constipatio Verified 03/19/22 14:50 n Review of Systems ROS Statement: Those systems with pertinent positive or pertinent negative responses have been documented in the HPI. ROS Other: All systems not noted in ROS Statement are negative. Past Medical History Past Medical History: Blood Disorder, GERD/Reflux Additional Past Medical History / Comment(s): Endometriosis, polycystic ovarian syndrome. IRON DEFICIENCY ANEMIA. Stomach Ulcer. ovarian cyst History of Any Multi-Drug Resistant Organisms: None Reported Past Surgical History: Ablation, Section, Cholecystectomy, Hysterectomy, Tubal Ligation, Uterine Ablation Additional Past Surgical History / Comment(s): Laparoscopy X2, Section X3. Right ovary and right tube removed - 2019. cyst removed from chest. AUG 2020 - ADHESION REMOVAL FROM PAST . Vaginal. pelvic biopsy 05/11. PCOS Past Anesthesia/Blood Transfusion Reactions: No Reported Reaction Past Psychological History: Anxiety, Depression Smoking Status: Never smoker Past Alcohol Use History: Rare Past Drug Use History: None Reported - Past Family History Mother Family Medical History: Hyperlipidemia Additional Family Medical History / Comment(s): Depression and anxiety. General Exam Limitations: no limitations General appearance: alert, in no apparent distress Head exam: Present: atraumatic, normocephalic, normal inspection Eye exam: Present: normal appearance, PERRL, EOMI. Absent: scleral icterus, conjunctival injection, periorbital swelling ENT exam: Present: normal exam, mucous membranes moist Neck exam: Present: normal inspection Respiratory exam: Present: normal lung sounds bilaterally. Absent: respiratory distress, wheezes, rales, rhonchi, stridor Cardiovascular Exam: Present: regular rate, normal rhythm, normal heart sounds. Absent: systolic murmur, diastolic murmur, rubs, gallop, clicks GI/Abdominal exam: Present: soft, normal bowel sounds. Absent: distended, tenderness, guarding, rebound, rigid External exam: Present: other (excoration between rectum and labia without active bleeding. ). Absent: erythema, swelling, lacerations, ecchymosis Extremities exam: Present: normal inspection, full ROM, normal capillary refill. Absent: tenderness, pedal edema, joint swelling, calf tenderness Back exam: Present: normal inspection Neurological exam: Present: alert, oriented X3, CN II-XII intact Psychiatric exam: Present: normal affect, normal mood Skin exam: Present: warm, dry. Absent: rash Course Vital Signs 03/19/22 03/19/22 14:48 16:55 Temperature 98.7 F Pulse Rate 93 84 Respiratory 14 18 Rate Blood Pressure 123/77 124/70 O2 Sat by Pulse 98 98 Oximetry Medical Decision Making - Medical Decision Making 31-year-old female presenting with left flank pain secondary to ovarian cysts and perineal spotting which she believes may have been vaginal. No indication for repeat ultrasound this time. Pelvic exam reveals small excoriated area between labia and rectum likely source of bleeding. No vaginal discharge on exam. No indication for repeat ultrasound or other diagnostic imaging. No indication for laboratory studies. Will give morphine and monitor pain response. Pain slowly improving with IM morphine. Reports some nausea will give ODT Zofran. Symptoms improved with treatment. Will give starter pack of Tylenol 3 and discharge home with close follow-up with her primary care provider along with [employer]. Case discussed with Dr. Disla. Disposition Clinical Impression: Ovarian cyst Disposition: HOME SELF-CARE Condition: Stable Instructions (If sedation given, give patient instructions): Ovarian Cyst (ED) Additional Instructions: Please utilize Tylenol 3 starter pack for pain as needed. Please follow-up with your [employer] and primary care provider for further evaluation and treatment plan of your ovarian cyst and pain related to it. Please return to the Emergency Department if symptoms worsen or any other concerns. Is patient prescribed a controlled substance at d/c from ED?: No Referrals: Marely De Santiago [Primary Care Provider] - 1-2 days Time of Disposition: 16:48
[2022-03-19] MEDS ORDERED: MORPHINE SULFATE 4 MG/ML SYRINGE IM STA (15:27)
[2022-03-19] MEDS ORDERED: ONDANSETRON ODT 8 MG TAB.RAPDIS PO STA (16:11)
[2022-03-19] MEDS ORDERED: ACET/COD 300 MG/30 MG STARTER PACK 6 TAB BTL PO STA (16:35)
[2022-03-19 16:59] VITALS: BP 124/70; PULSE 84; RESP 18
== END 2022-03-19 16:55 | disposition home or self-care (01) ==
LOC: EC 14:43
DX: N83.202 Unspecified ovarian cyst, left side (principal); K21.9 Gastro-esophageal reflux disease without esophagitis; Z88.8 Allergy status to other drugs, medicaments and biological substances; Z88.1 Allergy status to other antibiotic agents; Z88.0 Allergy status to penicillin; Z88.2 Allergy status to sulfonamides; Z91.09 Other allergy status, other than to drugs and biological substances; Z91.048 Other nonmedicinal substance allergy status; Z79.899 Other long term (current) drug therapy
CPT/HCPCS: 99283; 96372; J2270

== ENCOUNTER 2022-04-13 14:37 | Emergency (ER) | payer OTHER ==
[2022-04-13 15:20] VITALS: BP 141/98; PULSE 85; RESP 18; TEMP 98.5
[2022-04-13] MEDS ORDERED: traMADol 50 MG TAB PO STA (16:13)
--- NOTE | 2022-04-13 16:26 | ED ---
General Adult HPI - General Chief complaint: Abdominal Pain Stated complaint: Abd pain Time Seen by Provider: 04/13/22 15:32 Source: patient, RN notes reviewed, old records reviewed Mode of arrival: ambulatory Limitations: no limitations - History of Present Illness Initial comments: 31 yo female presenting for evaluation of pain in her belly button. Patient is approximately 2 weeks postop laparoscopic hysterectomy. She was seen at outside hospital 2 days ago had full workup including CT imaging she's had a follow-up with her surgeon. She's been afebrile no vomiting, normal bowel movements. She's been eating and drinking. Patient's is currently on Motrin but states that this is not adequately addressing her pain. - Related Data Home Medications Medication Instructions Recorded Confirmed Citalopram Hydrobromide [CeleXA] 40 mg PO HS 02/12/22 03/07/22 Ibuprofen [Motrin] 800 mg PO TID PRN 03/07/22 03/07/22 Levofloxacin [Levaquin] 750 mg PO DAILY 03/07/22 03/07/22 Omeprazole 20 mg PO BID 03/07/22 03/07/22 Ondansetron Odt [Zofran Odt] 4 mg PO DAILY 03/07/22 03/07/22 metroNIDAZOLE [Flagyl] 500 mg PO TID 03/07/22 03/07/22 Previous Rx's Medication Instructions Recorded traMADol HCl [Ultram] 50 - 100 mg PO Q6HR PRN 3 Days #15 02/12/22 tab HYDROcodone/APAP 7.5-325MG [[place] 1 tab PO Q6HR PRN 3 Days #12 tab 03/07/22 7.5-325] Ketorolac [Toradol] 10 mg PO Q6HR PRN #12 tab 03/07/22 Fluconazole [Diflucan] 150 mg PO ONCE #2 tab 03/12/22 HYDROcodone/APAP 5-325MG [[place] 1 tab PO Q6HR PRN 3 Days #12 tab 03/12/22 5-325] Ketorolac [Toradol] 10 mg PO Q6HR PRN #12 tab 03/12/22 traMADol HCL 50 mg PO BID 3 Days #6 tab 04/13/22 Allergies Allergy/AdvReac Type Severity Reaction Status Date / Time adhesive tape Allergy Rash/Hives Verified 04/13/22 15:20 aloe vera Allergy Rash/Hives Verified 04/13/22 15:20 azithromycin Allergy Rash/Hives Verified 04/13/22 15:20 cephalexin Allergy Rash/Hives Verified 04/13/22 15:20 metronidazole [From Flagyl] Allergy Rash/Hives Verified 04/13/22 15:20 Penicillins Allergy Rash/Hives Verified 04/13/22 15:20 sulfamethoxazole Allergy Rash/Hives Verified 04/13/22 15:20 [From Bactrim] trimethoprim [From Bactrim] Allergy Rash/Hives Verified 04/13/22 15:20 alprazolam [From Xanax] AdvReac MAKES Verified 04/13/22 15:20 PARANOID dicyclomine [From Bentyl] AdvReac constipatio Verified 04/13/22 15:20 n Review of Systems ROS Statement: Those systems with pertinent positive or pertinent negative responses have been documented in the HPI. ROS Other: All systems not noted in ROS Statement are negative. Past Medical History Past Medical History: Blood Disorder, GERD/Reflux Additional Past Medical History / Comment(s): Endometriosis, polycystic ovarian syndrome. IRON DEFICIENCY ANEMIA. Stomach Ulcer. ovarian cyst History of Any Multi-Drug Resistant Organisms: None Reported Past Surgical History: Ablation, Section, Cholecystectomy, Hysterectomy, Tubal Ligation, Uterine Ablation Additional Past Surgical History / Comment(s): Laparoscopy X2, Section X3. Right ovary and right tube removed - 2019. cyst removed from chest. AUG 2020 - ADHESION REMOVAL FROM PAST . Vaginal. pelvic biopsy 05/11. PCOS Past Anesthesia/Blood Transfusion Reactions: No Reported Reaction Past Psychological History: Anxiety, Depression Smoking Status: Never smoker Past Alcohol Use History: Rare Past Drug Use History: None Reported - Past Family History Mother Family Medical History: Hyperlipidemia Additional Family Medical History / Comment(s): Depression and anxiety. General Exam Limitations: no limitations General appearance: alert, in no apparent distress Head exam: Present: atraumatic, normocephalic Eye exam: Present: normal appearance, PERRL ENT exam: Present: normal exam Neck exam: Present: normal inspection. Absent: tenderness, meningismus Respiratory exam: Present: normal lung sounds bilaterally. Absent: respiratory distress, wheezes, rales Cardiovascular Exam: Present: regular rate, normal rhythm GI/Abdominal exam: Present: soft, tenderness (Minimal generalized tenderness appropriate for postoperative date), other (Incisions are well-healed no drainage). Absent: distended, guarding, rebound, rigid Extremities exam: Present: normal inspection, normal capillary refill. Absent: pedal edema Neurological exam: Present: alert, oriented X3, CN II-XII intact. Absent: motor sensory deficit Psychiatric exam: Present: normal affect, normal mood Skin exam: Present: warm, dry, intact. Absent: cyanosis, diaphoretic Course Vital Signs 04/13/22 15:14 Temperature 98.5 F Pulse Rate 85 Respiratory 18 Rate Blood Pressure 141/98 O2 Sat by Pulse 100 Oximetry Medical Decision Making - Medical Decision Making 31-year-old female well-appearing with chronic abdominal pain and postoperative abdominal pain. Patient had CT imaging performed 2 days ago at outside hospital as she reported this is normal and was discharged home. She's had no fever. No vomiting. Will prescribe a short course of tramadol for postoperative pain. She should follow-up with her surgeon regarding this pain. Return parameters discussed. Disposition Clinical Impression: Abdominal pain Disposition: HOME SELF-CARE Condition: Fair Instructions (If sedation given, give patient instructions): Abdominal Pain (ED) Prescriptions: traMADol HCL 50 mg PO BID 3 Days #6 tab Is patient prescribed a controlled substance at d/c from ED?: No Referrals: Marely De Santiago [Primary Care Provider] - 1-2 days Time of Disposition: 16:26
== END 2022-04-13 16:50 | disposition home or self-care (01) ==
LOC: EC 14:37
DX: R10.9 Unspecified abdominal pain (principal); K21.9 Gastro-esophageal reflux disease without esophagitis; F41.9 Anxiety disorder, unspecified; F32.A Depression, unspecified; Z88.8 Allergy status to other drugs, medicaments and biological substances; Z91.09 Other allergy status, other than to drugs and biological substances; Z88.1 Allergy status to other antibiotic agents; Z88.0 Allergy status to penicillin; Z88.2 Allergy status to sulfonamides; Z79.899 Other long term (current) drug therapy
CPT/HCPCS: 99283

== ENCOUNTER 2022-04-23 17:50 | Emergency (ER) | payer OTHER ==
[2022-04-23 18:06] VITALS: TEMP 98.2
[2022-04-23 19:07] LABS: Basophils % (A) 0 %; Eosinophils # (A) 0.1 k/uL (0-0.7); Eosinophils % (A) 1 %; HCT 31.5 % (34.0-46.0); HGB 10.8 gm/dL (11.4-16.0); Lymphocytes # (A) 1.2 k/uL (1.0-4.8); Lymphocytes % (A) 28 %; MCHC 34.2 g/dL (31.0-37.0); MCV 90.4 fL (80.0-100.0); Mean Platelet Volume 7.9; Monocytes # (A) 0.2 k/uL (0-1.0); Monocytes % (A) 4 %; Neutrophils # (A) 2.8 k/uL (1.3-7.7); Neutrophils % (A) 64 %; Platelet Count 206 k/uL (150-450); RBC 3.48 m/uL (3.80-5.40); RDW 13.1 % (11.5-15.5); WBC 4.4 k/uL (3.8-10.6)
--- NOTE | 2022-04-23 19:08 | ED ---
General Adult HPI - General Chief complaint: Abdominal Pain Stated complaint: abd pain Time Seen by Provider: 04/23/22 18:05 Source: patient, RN notes reviewed, old records reviewed Mode of arrival: ambulatory Limitations: no limitations - History of Present Illness Initial comments: This is a 31-year-old female presents emergency Department complaining of right lower quadrant abdominal pain for last week. Patient states she has been here multiple times in the past for polycystic ovarian disease. Patient states she recently had a hysterectomy including both ovaries. Patient states she has had no fever no chills however she has been very nauseated and vomited once this morning. Patient denies any diarrhea. Patient denies a headache patient denies lightheadedness or dizziness. - Related Data Home Medications Medication Instructions Recorded Confirmed Citalopram Hydrobromide [CeleXA] 40 mg PO HS 02/12/22 03/07/22 Ibuprofen [Motrin] 800 mg PO TID PRN 03/07/22 03/07/22 Levofloxacin [Levaquin] 750 mg PO DAILY 03/07/22 03/07/22 Omeprazole 20 mg PO BID 03/07/22 03/07/22 Ondansetron Odt [Zofran Odt] 4 mg PO DAILY 03/07/22 03/07/22 metroNIDAZOLE [Flagyl] 500 mg PO TID 03/07/22 03/07/22 Previous Rx's Medication Instructions Recorded traMADol HCl [Ultram] 50 - 100 mg PO Q6HR PRN 3 Days #15 02/12/22 tab HYDROcodone/APAP 7.5-325MG [[place] 1 tab PO Q6HR PRN 3 Days #12 tab 03/07/22 7.5-325] Ketorolac [Toradol] 10 mg PO Q6HR PRN #12 tab 03/07/22 Fluconazole [Diflucan] 150 mg PO ONCE #2 tab 03/12/22 HYDROcodone/APAP 5-325MG [[place] 1 tab PO Q6HR PRN 3 Days #12 tab 03/12/22 5-325] Ketorolac [Toradol] 10 mg PO Q6HR PRN #12 tab 03/12/22 traMADol HCL 50 mg PO BID 3 Days #6 tab 04/13/22 Allergies Allergy/AdvReac Type Severity Reaction Status Date / Time adhesive tape Allergy Rash/Hives Verified 04/23/22 18:06 aloe vera Allergy Rash/Hives Verified 04/23/22 18:06 azithromycin Allergy Rash/Hives Verified 04/23/22 18:06 cephalexin Allergy Rash/Hives Verified 04/23/22 18:06 metronidazole [From Flagyl] Allergy Rash/Hives Verified 04/23/22 18:06 Penicillins Allergy Rash/Hives Verified 04/23/22 18:06 sulfamethoxazole Allergy Rash/Hives Verified 04/23/22 18:06 [From Bactrim] trimethoprim [From Bactrim] Allergy Rash/Hives Verified 04/23/22 18:06 alprazolam [From Xanax] AdvReac MAKES Verified 04/23/22 18:06 PARANOID dicyclomine [From Bentyl] AdvReac constipatio Verified 04/23/22 18:06 n Review of Systems ROS Statement: Those systems with pertinent positive or pertinent negative responses have been documented in the HPI. ROS Other: All systems not noted in ROS Statement are negative. Past Medical History Past Medical History: Blood Disorder, GERD/Reflux Additional Past Medical History / Comment(s): Endometriosis, polycystic ovarian syndrome. IRON DEFICIENCY ANEMIA. Stomach Ulcer. ovarian cyst History of Any Multi-Drug Resistant Organisms: None Reported Past Surgical History: Ablation, Section, Cholecystectomy, Hysterectomy, Tubal Ligation, Uterine Ablation Additional Past Surgical History / Comment(s): Laparoscopy X2, Section X3. Right ovary and right tube removed - 2019. cyst removed from chest. AUG 2020 - ADHESION REMOVAL FROM PAST . Vaginal. pelvic biopsy 05/11. PCOS Past Anesthesia/Blood Transfusion Reactions: No Reported Reaction Past Psychological History: Anxiety, Depression Smoking Status: Never smoker Past Alcohol Use History: Rare Past Drug Use History: None Reported - Past Family History Mother Family Medical History: Hyperlipidemia Additional Family Medical History / Comment(s): Depression and anxiety. General Exam - General Exam Comments Initial Comments: GENERAL: Patient is well-developed and well-nourished. Patient is nontoxic and well- hydrated and is in mild distress. ENT: Neck is soft and supple. No significant lymphadenopathy is noted. Oropharynx is clear. Moist mucous membranes. Neck has full range of motion without eliciting any pain. EYES: The sclera were anicteric and conjunctiva were pink and moist. Extraocular movements were intact and pupils were equal round and reactive to light. Eyelids were unremarkable. PULMONARY: Unlabored respirations. Good breath sounds bilaterally. No audible rales rhonchi or wheezing was noted. CARDIOVASCULAR: There is a regular rate and rhythm without any murmurs gallops or rubs. ABDOMEN: Mild right lower quadrant abdominal pain SKIN: Skin is clear with no lesions or rashes and otherwise unremarkable. NEUROLOGIC: Patient is alert and oriented x3. Cranial nerves II through XII are grossly intact. Motor and sensory are also intact. Normal speech, volume and content. Symmetrical smile. MUSCULOSKELETAL: Normal extremities with adequate strength and full range of motion. LYMPHATICS: No significant lymphadenopathy is noted PSYCHIATRIC: Normal psychiatric evaluation. Limitations: no limitations Course Vital Signs 04/23/22 18:03 Temperature 98.2 F Pulse Rate 103 H Respiratory 18 Rate Blood Pressure 136/90 O2 Sat by Pulse 97 Oximetry Medical Decision Making - Medical Decision Making EKG shows sinus rhythm at 90 bpm TN interval is 148 QRS is 70 QT interval 364 QTC is 412. Patient's EKG shows no ST segment elevation or depression. I went back in and reexamined the patient and she was feeling better and she had less pain on the right lower quadrant. Ultrasound was unable to visualize the appendix but they saw no signs of inflammation. - Lab Data Result diagrams: 04/23/22 18:43 04/23/22 18:43 Lab Results 04/23/22 04/23/22 04/23/22 Range/Units 18:35 18:43 18:43 WBC 4.4 (3.8-10.6) k/uL RBC 3.48 L (3.80-5.40) m/uL Hgb 10.8 L (11.4-16.0) gm/dL Hct 31.5 L (34.0-46.0) % MCV 90.4 (80.0-100.0) fL MCH 31.0 (25.0-35.0) pg MCHC 34.2 (31.0-37.0) g/dL RDW 13.1 (11.5-15.5) % Plt Count 206 (150-450) k/uL MPV 7.9 Neutrophils % 64 % Lymphocytes % 28 % Monocytes % 4 % Eosinophils % 1 % Basophils % 0 % Neutrophils # 2.8 (1.3-7.7) k/uL Lymphocytes # 1.2 (1.0-4.8) k/uL Monocytes # 0.2 (0-1.0) k/uL Eosinophils # 0.1 (0-0.7) k/uL Basophils # 0.0 (0-0.2) k/uL Sodium 139 (137-145) mmol/L Potassium 4.5 (3.5-5.1) mmol/L Chloride 103 (98-107) mmol/L Carbon Dioxide 25 (22-30) mmol/L Anion Gap 11 mmol/L BUN 13 (7-17) mg/dL Creatinine 0.79 (0.52-1.04) mg/dL Est GFR (CKD-EPI)AfAm >90 (>60 ml/min/1.73 sqM) Est GFR (CKD-EPI)NonAf >90 (>60 ml/min/1.73 sqM) Glucose 95 (74-99) mg/dL Calcium 9.4 (8.4-10.2) mg/dL Total Bilirubin 0.7 (0.2-1.3) mg/dL AST 18 (14-36) U/L ALT 17 (4-34) U/L Alkaline Phosphatase 122 (38-126) U/L Total Protein 6.9 (6.3-8.2) g/dL Albumin 4.3 (3.5-5.0) g/dL Amylase 63 (30-110) U/L Lipase 29 (23-300) U/L Urine Color Yellow Urine Appearance Clear (Clear) Urine pH 7.0 (5.0-8.0) Ur Specific [place] 1.015 (1.001-1.035) Urine Protein Negative (Negative) Urine Glucose (UA) Negative (Negative) Urine Ketones Negative (Negative) Urine Blood Negative (Negative) Urine Nitrite Negative (Negative) Urine Bilirubin Negative (Negative) Urine Urobilinogen <2.0 (<2.0) mg/dL Ur Leukocyte Esterase Trace H (Negative) Urine RBC 1 (0-5) /hpf Urine WBC 3 (0-5) /hpf Ur Squamous Epith Cells 1 (0-4) /hpf Urine Mucus Rare H (None) /hpf Disposition Clinical Impression: Abdominal pain Disposition: HOME SELF-CARE Instructions (If sedation given, give patient instructions): Abdominal Pain (ED) Is patient prescribed a controlled substance at d/c from ED?: No Referrals: Marely De Santiago [Primary Care Provider] - 1-2 days Time of Disposition: 19:33
[2022-04-23 19:14] LABS: ALT 17 U/L (4-34); AST 18 U/L (14-36); African American GFR (CKD) >90 (>60 ml/min/1.73 sqM); Albumin 4.3 g/dL (3.5-5.0); Alkaline Phosphatase 122 U/L (38-126); Amylase 63 U/L (30-110); Anion Gap 11 mmol/L; Blood Urea Nitrogen 13 mg/dL (7-17); Calcium 9.4 mg/dL (8.4-10.2); Carbon Dioxide 25 mmol/L (22-30); Chloride 103 mmol/L (98-107); Glucose 95 mg/dL (74-99); Lipase 29 U/L (23-300); Non-African American GFR(CKD) >90 (>60 ml/min/1.73 sqM); Potassium 4.5 mmol/L (3.5-5.1); Sodium 139 mmol/L (137-145); Total Bilirubin 0.7 mg/dL (0.2-1.3); Total Protein 6.9 g/dL (6.3-8.2)
[2022-04-23 19:18] LABS: Appearance,Urine Clear (Clear); Bilirubin,Urine Negative (Negative); Blood,Urine Negative (Negative); Color,Urine Yellow; Glucose,Urine (UA) Negative (Negative); Ketones,Urine Negative (Negative); Leukocyte Esterase,Urine Trace (Negative); Mucus,Urine Rare /hpf; Nitrite,Urine Negative (Negative); Protein,Urine Negative (Negative); RBC,Urine 1 /hpf (0-5); Specific Gravity,Urine 1.015 (1.001-1.035); Squamous Epithelial Cell,Urine 1 /hpf (0-4); Urobilinogen,Urine <2.0 mg/dL (<2.0); WBC,Urine 3 /hpf (0-5)
--- NOTE | 2022-04-23 19:21 | US ---
EXAMINATION TYPE: US abdomen APPY DATE OF EXAM: 04/23/2022 COMPARISON: NONE CLINICAL HISTORY: Right lower quadrant abdominal pain. RLQ pain x 1 week that worsened yesterday TECHNIQUE: Multiple sonographic images of the right lower quadrant were obtained with graded compress ion. 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 This does not exclude acute appendicitis.
[2022-04-23 19:46] VITALS: BP 124/75; PULSE 65; RESP 16
== END 2022-04-23 20:11 | disposition home or self-care (01) ==
LOC: EC 17:50
DX: R10.31 Right lower quadrant pain (principal); K21.9 Gastro-esophageal reflux disease without esophagitis; F41.9 Anxiety disorder, unspecified; F32.A Depression, unspecified; Z88.8 Allergy status to other drugs, medicaments and biological substances; Z91.09 Other allergy status, other than to drugs and biological substances; Z88.1 Allergy status to other antibiotic agents; Z88.0 Allergy status to penicillin; Z88.2 Allergy status to sulfonamides; Z88.3 Allergy status to other anti-infective agents; Z79.899 Other long term (current) drug therapy
CPT/HCPCS: 36415; 93005; 80053; 82150; 83690; 85025; 81001; 76705; 99284; 96374; J1790

== ENCOUNTER 2022-05-03 21:08 | Emergency (ER) | payer OTHER ==
[2022-05-03 22:12] LABS: Appearance,Urine Clear (Clear); Bacteria,Urine Rare /hpf; Bilirubin,Urine Negative (Negative); Blood,Urine Negative (Negative); Color,Urine Yellow; Glucose,Urine (UA) Negative (Negative); Ketones,Urine Negative (Negative); Leukocyte Esterase,Urine Moderate (Negative); Mucus,Urine Many /hpf; Nitrite,Urine Negative (Negative); Protein,Urine Trace (Negative); RBC,Urine <1 /hpf (0-5); Specific Gravity,Urine 1.024 (1.001-1.035); Squamous Epithelial Cell,Urine 4 /hpf (0-4); Urobilinogen,Urine <2.0 mg/dL (<2.0); WBC,Urine 10 /hpf (0-5)
[2022-05-03] MEDS ORDERED: KETOROLAC 15 MG/ML 1 ML VIAL IM STA (22:29)
[2022-05-03] MEDS ORDERED: traMADol 50 MG TAB PO STA (22:49)
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
[2022-05-03 22:59] VITALS: BP 120/85; PULSE 91; RESP 17; TEMP 98.1
[2022-05-03] MEDS ORDERED: traMADol 50 MG TAB ONE (23:45)
--- NOTE | 2022-05-04 05:00 | XR ---
EXAMINATION TYPE: XR KUB portable DATE OF EXAM: 05/03/2022 COMPARISON: 02/04/2022 HISTORY: Abdominal pain TECHNIQUE: 2 view FINDINGS: Bowel gas pattern is normal. No sign of intestinal obstruction or pneumoperitoneum. Fecal p attern is normal. No evidence of a mass. There are no pathologic calcifications over the kidneys. The re are clips from cholecystectomy. Lung bases are clear. IMPRESSION: Nonacute abdomen. No adverse change
== END 2022-05-03 23:00 | disposition home or self-care (01) ==
LOC: EC 21:08
DX: R10.9 Unspecified abdominal pain (principal); K21.9 Gastro-esophageal reflux disease without esophagitis; F41.9 Anxiety disorder, unspecified; F32.A Depression, unspecified; Z88.8 Allergy status to other drugs, medicaments and biological substances; Z88.0 Allergy status to penicillin; Z88.2 Allergy status to sulfonamides; Z91.09 Other allergy status, other than to drugs and biological substances; Z79.899 Other long term (current) drug therapy
CPT/HCPCS: 81001; 81025; 74018; 99284; 96372; J1885

== ENCOUNTER 2022-08-21 16:27 | Emergency (ER) | payer OTHER ==
[2022-08-21 16:42] VITALS: PULSE 78; TEMP 97.8
[2022-08-21] MEDS ORDERED: ONDANSETRON 4 MG/2 ML VIAL IVP STA (19:11)
[2022-08-21] MEDS ORDERED: KETOROLAC 15 MG/ML 1 ML VIAL IVP STA (19:11)
[2022-08-21] MEDS ORDERED: SODIUM CHLORIDE 0.9% 1,000 ML IV STA (19:11)
[2022-08-21] MEDS ORDERED: HYDROmorphone 0.5 MG/0.5 ML SYRINGE IVP STA (19:12)
--- NOTE | 2022-08-21 19:37 | ED ---
Abdominal Pain HPI - General Chief Complaint: Recheck/Abnormal Lab/Rx Stated Complaint: Hernia Time Seen by Provider: 08/21/22 18:58 Source: patient, RN notes reviewed Mode of arrival: ambulatory Limitations: no limitations - History of Present Illness Initial Comments: This is a 32-year-old female who presents to the emergency department for abdominal pain. Patient states that she has an abdominal hernia that seems to be getting worse in terms of pain. States that she needs a computed tomography scan so Dr. Luis can get her in for a sooner appointment. She has not been given any pain medication, and states that she is not able to tolerate this with ibuprofen alone. She is requesting a CT scan so she can get this repaired as quickly as possible. Also reports associated nausea and vomiting. She did recently have a left salpingectomy-oopherectomy and it is possible that this is related, however that has not yet been determined. Denies any fevers, chills, sore throat, cough, dyspnea, chest pain, palpitations, diarrhea, back pain, or headaches. MD Complaint: abdominal pain Associated Symptoms: nausea, vomiting - Related Data Home Medications Medication Instructions Recorded Confirmed Citalopram Hydrobromide [CeleXA] 40 mg PO HS 02/12/22 03/07/22 Ibuprofen [Motrin] 800 mg PO TID PRN 03/07/22 03/07/22 Levofloxacin [Levaquin] 750 mg PO DAILY 03/07/22 03/07/22 Omeprazole 20 mg PO BID 03/07/22 03/07/22 Ondansetron Odt [Zofran Odt] 4 mg PO DAILY 03/07/22 03/07/22 metroNIDAZOLE [Flagyl] 500 mg PO TID 03/07/22 03/07/22 Previous Rx's Medication Instructions Recorded traMADol HCl [Ultram] 50 - 100 mg PO Q6HR PRN 3 Days #15 02/12/22 tab HYDROcodone/APAP 7.5-325MG [[place] 1 tab PO Q6HR PRN 3 Days #12 tab 03/07/22 7.5-325] Ketorolac [Toradol] 10 mg PO Q6HR PRN #12 tab 03/07/22 Fluconazole [Diflucan] 150 mg PO ONCE #2 tab 03/12/22 HYDROcodone/APAP 5-325MG [[place] 1 tab PO Q6HR PRN 3 Days #12 tab 03/12/22 5-325] Ketorolac [Toradol] 10 mg PO Q6HR PRN #12 tab 03/12/22 traMADol HCL 50 mg PO BID 3 Days #6 tab 04/13/22 Ondansetron Odt [Zofran Odt] 4 mg PO Q8HR PRN #15 tab 08/21/22 Allergies Allergy/AdvReac Type Severity Reaction Status Date / Time adhesive tape Allergy Rash/Hives Verified 05/03/22 21:19 aloe vera Allergy Rash/Hives Verified 05/03/22 21:19 azithromycin Allergy Rash/Hives Verified 05/03/22 21:19 cephalexin Allergy Rash/Hives Verified 05/03/22 21:19 metronidazole [From Flagyl] Allergy Rash/Hives Verified 05/03/22 21:19 Penicillins Allergy Rash/Hives Verified 05/03/22 21:19 sulfamethoxazole Allergy Rash/Hives Verified 05/03/22 21:19 [From Bactrim] trimethoprim [From Bactrim] Allergy Rash/Hives Verified 05/03/22 21:19 alprazolam [From Xanax] AdvReac MAKES Verified 05/03/22 21:19 PARANOID dicyclomine [From Bentyl] AdvReac constipatio Verified 05/03/22 21:19 n Review of Systems ROS Statement: Those systems with pertinent positive or pertinent negative responses have been documented in the HPI. ROS Other: All systems not noted in ROS Statement are negative. Past Medical History Past Medical History: Blood Disorder, GERD/Reflux Additional Past Medical History / Comment(s): Endometriosis, polycystic ovarian syndrome. IRON DEFICIENCY ANEMIA. Stomach Ulcer. ovarian cyst History of Any Multi-Drug Resistant Organisms: None Reported Past Surgical History: Ablation, Section, Cholecystectomy, Hysterectomy, Tubal Ligation, Uterine Ablation Additional Past Surgical History / Comment(s): Laparoscopy X2, Section X3. Right ovary and right tube removed - 2019. cyst removed from chest. AUG 2020 - ADHESION REMOVAL FROM PAST . Vaginal. pelvic biopsy 05/11. PCOS Past Anesthesia/Blood Transfusion Reactions: No Reported Reaction Past Psychological History: Anxiety, Depression Smoking Status: Never smoker Past Alcohol Use History: Rare Past Drug Use History: None Reported - Past Family History Mother Family Medical History: Hyperlipidemia Additional Family Medical History / Comment(s): Depression and anxiety. General Exam Limitations: no limitations General appearance: alert, in no apparent distress Head exam: Present: atraumatic, normocephalic, normal inspection Respiratory exam: Present: normal lung sounds bilaterally. Absent: respiratory distress, wheezes, rales, rhonchi, stridor Cardiovascular Exam: Present: regular rate, normal rhythm, normal heart sounds. Absent: systolic murmur, diastolic murmur, rubs, gallop, clicks GI/Abdominal exam: Present: soft, tenderness (Mild and diffuse), normal bowel sounds. Absent: distended Neurological exam: Present: alert, oriented X3, CN II-XII intact Psychiatric exam: Present: normal affect, normal mood Skin exam: Present: warm, dry, intact, normal color. Absent: rash Course Vital Signs 08/21/22 08/21/22 16:40 22:43 Temperature 97.8 F Pulse Rate 78 78 Respiratory 16 15 Rate Blood Pressure 136/76 129/68 O2 Sat by Pulse 100 100 Oximetry Medical Decision Making - Medical Decision Making This is a 32-year-old female who presents to the emergency department for abdominal pain. Was pt. sent in by a medical professional or institution? @ -No Did you speak to anyone other than the patient for history? @ -No Did you review nursing and triage notes? @ -Yes, and I agree, it is accurate with regards to the patient's symptoms. Were old charts reviewed? @ -No Differential Diagnosis? @ -Differential Abdominal Pain Women: Appendicitis, Cholecystitis, diverticulosis, ischemic bowel, pancreatitis, hepatitis, UTI, gastroenteritis, AAA, incarcerated hernia, bowel obstruction, constipation, inflammatory bowel, hepatitis, peptic ulcer disease, splenic infarction, perforated viscus, vulvitis, ovarian torsion, PID, kidney stone, placenta abruption, this is not meant to be an all-inclusive list CT interpreted by me (1pt min.)? @ -Computed tomography scan of the abdomen and pelvis obtained. My interpretation reveals no evidence of bowel wall thickening or dilation. There is a right periumbilical hernia with no evidence of strangulation or incarc eration. What testing was considered but not performed? (CT, X-rays, U/S, labs)? Why? @ -None What meds were considered but not given? Why? @ -None Did you discuss the management of the patient with other professionals? @ -No Did you reconcile home meds? @ -No Was smoking cessation discussed for >3mins.? @ -No Was critical care preformed (if so, how long)? @ -No Were there social determinants of health that impacted care today? How? (Homelessness, low income, unemployed, alcoholism, drug addiction, transportation, low edu. Level, literacy, decrease access to med. care, senior living, rehab)? @ -No Was there de-escalation of care discussed even if they declined? (Discuss DNR or withdrawal of care, Hospice)? @ -No What co-morbidities impacted this encounter? (DM, HTN, Smoking, COPD, CAD, Cancer, CVA, Hep., AIDS, mental health diagnosis, sleep apnea, morbid obesity)? @ -GERD, morbid obesity, multiple surgeries Was patient admitted / discharged? @ -Discharged. Lab work obtained and found to be nonactionable. Computed tomography scan of the abdomen and pelvis obtained revealing a right fat filled periumbilical hernia. There is no evidence of strangulation or incarceration. Patient's symptoms were managed in the emergency department. Prescription for Zofran provided with dosing instructions reviewed. She'll continue to alternate with ibuprofen and Tylenol for pain relief. Advised she follow-up with Dr. Kelly to discuss further management. Undiagnosed new problem with uncertain prognosis? @ -None Drug Therapy requiring intensive monitoring for toxicity (Heparin, Nitro, Insulin, Cardizem)? @ -None Were any procedures done? @ -None Diagnosis/symptom? @ -Periumbilical hernia Acute, or Chronic, or Acute on Chronic? @ -Acute Uncomplicated (without systemic symptoms) or Complicated (systemic symptoms)? @ -Uncomplicated Side effects of treatment? @ -None Exacerbation, Progression, or Severe Exacerbation] @ -Not applicable Poses a threat to life or bodily function? @ -No Return precautions reviewed in depth, the patient is instructed to return to the emergency department with any new, worsening, or concerning symptoms. Patient verbalized understanding. This case was discussed in detail with the attending ED physician, Dr. Velasquez. P resentation, findings, and treatment plan discussed in detail as well. - Lab Data Result diagrams: 08/21/22 19:55 08/21/22 19:55 Lab Results 01/08/21/22 08/21/22 Range/Units 19:55 19:55 19:55 WBC 5.7 (3.8-10.6) k/uL RBC 3.38 L (3.80-5.40) m/uL Hgb 10.4 L (11.4-16.0) gm/dL Hct 30.3 L (34.0-46.0) % MCV 89.7 (80.0-100.0) fL MCH 30.6 (25.0-35.0) pg MCHC 34.2 (31.0-37.0) g/dL RDW 13.1 (11.5-15.5) % Plt Count 189 (150-450) k/uL MPV 7.3 Neutrophils % 65 % Lymphocytes % 27 % Monocytes % 4 % Eosinophils % 1 % Basophils % 0 % Neutrophils # 3.7 (1.3-7.7) k/uL Lymphocytes # 1.6 (1.0-4.8) k/uL Monocytes # 0.3 (0-1.0) k/uL Eosinophils # 0.1 (0-0.7) k/uL Basophils # 0.0 (0-0.2) k/uL Sodium 138 (137-145) mmol/L Potassium 4.2 (3.5-5.1) mmol/L Chloride 108 H (98-107) mmol/L Carbon Dioxide 28 (22-30) mmol/L Anion Gap 2 mmol/L BUN 19 H (7-17) mg/dL Creatinine 0.67 (0.52-1.04) mg/dL Est GFR (CKD-EPI)AfAm >90 (>60 ml/min/1.73 sqM) Est GFR (CKD-EPI)NonAf >90 (>60 ml/min/1.73 sqM) Glucose 97 (74-99) mg/dL Plasma Lactic Acid Santhosh (0.7-2.0) mmol/L Calcium 9.1 (8.4-10.2) mg/dL Total Bilirubin 0.5 (0.2-1.3) mg/dL AST 29 (14-36) U/L ALT 34 (4-34) U/L Alkaline Phosphatase 115 (38-126) U/L C-Reactive Protein <0.5 (<1.0) mg/dL Total Protein 6.4 (6.3-8.2) g/dL Albumin 3.8 (3.5-5.0) g/dL Amylase 65 (30-110) U/L Lipase 58 (23-300) U/L Urine Color Light Yellow Urine Appearance Cloudy H (Clear) Urine pH 7.0 (5.0-8.0) Ur Specific [place] 1.019 (1.001-1.035) Urine Protein Negative (Negative) Urine Glucose (UA) Negative (Negative) Urine Ketones Negative (Negative) Urine Blood Negative (Negative) Urine Nitrite Negative (Negative) Urine Bilirubin Negative (Negative) Urine Urobilinogen <2.0 (<2.0) mg/dL Ur Leukocyte Esterase Negative (Negative) Urine RBC 1 (0-5) /hpf Urine WBC 3 (0-5) /hpf Ur Squamous Epith Cells 5 H (0-4) /hpf Amorphous Sediment Few H (None) /hpf Urine Mucus Rare H (None) /hpf 08/21/22 Range/Units 19:55 WBC (3.8-10.6) k/uL RBC (3.80-5.40) m/uL Hgb (11.4-16.0) gm/dL Hct (34.0-46.0) % MCV (80.0-100.0) fL MCH (25.0-35.0) pg MCHC (31.0-37.0) g/dL RDW (11.5-15.5) % Plt Count (150-450) k/uL MPV Neutrophils % % Lymphocytes % % Monocytes % % Eosinophils % % Basophils % % Neutrophils # (1.3-7.7) k/uL Lymphocytes # (1.0-4.8) k/uL Monocytes # (0-1.0) k/uL Eosinophils # (0-0.7) k/uL Basophils # (0-0.2) k/uL Sodium (137-145) mmol/L Potassium (3.5-5.1) mmol/L Chloride (98-107) mmol/L Carbon Dioxide (22-30) mmol/L Anion Gap mmol/L BUN (7-17) mg/dL Creatinine (0.52-1.04) mg/dL Est GFR (CKD-EPI)AfAm (>60 ml/min/1.73 sqM) Est GFR (CKD-EPI)NonAf (>60 ml/min/1.73 sqM) Glucose (74-99) mg/dL Plasma Lactic Acid Santh[place] 1.1 (0.7-2.0) mmol/L Calcium (8.4-10.2) mg/dL Total Bilirubin (0.2-1.3) mg/dL AST (14-36) U/L ALT (4-34) U/L Alkaline Phosphatase (38-126) U/L C-Reactive Protein (<1.0) mg/dL Total Protein (6.3-8.2) g/dL Albumin (3.5-5.0) g/dL Amylase (30-110) U/L Lipase (23-300) U/L Urine Color Urine Appearance (Clear) Urine pH (5.0-8.0) Ur Specific [place] (1.001-1.035) Urine Protein (Negative) Urine Glucose (UA) (Negative) Urine Ketones (Negative) Urine Blood (Negative) Urine Nitrite (Negative) Urine Bilirubin (Negative) Urine Urobilinogen (<2.0) mg/dL Ur Leukocyte Esterase (Negative) Urine RBC (0-5) /hpf Urine WBC (0-5) /hpf Ur Squamous Epith Cells (0-4) /hpf Amorphous Sediment (None) /hpf Urine Mucus (None) /hpf - Radiology Data Radiology results: report reviewed, image reviewed Disposition Clinical Impression: Periumbilical hernia Disposition: HOME SELF-CARE Instructions (If sedation given, give patient instructions): Umbilical Hernia (ED) Additional Instructions: Return to the emergency department with any new, worsening, or concerning symptoms. Alternate with ibuprofen and Tylenol for pain relief. Take the Zofran up to every 8 hours as needed for nausea and vomiting. Follow-up with Dr. Luis for the umbilical hernia. Follow up with your primary care provider in 1-2 days. Prescriptions: Ondansetron Odt [Zofran Odt] 4 mg PO Q8HR PRN #15 tab PRN Reason: Nausea And Vomiting Is patient prescribed a controlled substance at d/c from ED?: No Referrals: Belinda Powell NPC [Primary Care Provider] - 1-2 days Jane Luis MD [STAFF PHYSICIAN] - 1-2 days
[2022-08-21 20:36] LABS: Basophils % (A) 0 %; Eosinophils # (A) 0.1 k/uL (0-0.7); Eosinophils % (A) 1 %; HCT 30.3 % (34.0-46.0); HGB 10.4 gm/dL (11.4-16.0); Lymphocytes # (A) 1.6 k/uL (1.0-4.8); Lymphocytes % (A) 27 %; MCH 30.6 pg (25.0-35.0); MCHC 34.2 g/dL (31.0-37.0); MCV 89.7 fL (80.0-100.0); Mean Platelet Volume 7.3; Monocytes # (A) 0.3 k/uL (0-1.0); Monocytes % (A) 4 %; Neutrophils # (A) 3.7 k/uL (1.3-7.7); Neutrophils % (A) 65 %; Platelet Count 189 k/uL (150-450); RBC 3.38 m/uL (3.80-5.40); RDW 13.1 % (11.5-15.5); WBC 5.7 k/uL (3.8-10.6)
[2022-08-21 20:49] LABS: ALT 34 U/L (4-34); AST 29 U/L (14-36); African American GFR (CKD) >90 (>60 ml/min/1.73 sqM); Albumin 3.8 g/dL (3.5-5.0); Alkaline Phosphatase 115 U/L (38-126); Amylase 65 U/L (30-110); Anion Gap 2 mmol/L; Blood Urea Nitrogen 19 mg/dL (7-17); C Reactive Protein <0.5 mg/dL (<1.0); Calcium 9.1 mg/dL (8.4-10.2); Carbon Dioxide 28 mmol/L (22-30); Chloride 108 mmol/L (98-107); Glucose 97 mg/dL (74-99); Lipase 58 U/L (23-300); Non-African American GFR(CKD) >90 (>60 ml/min/1.73 sqM); Potassium 4.2 mmol/L (3.5-5.1); Sodium 138 mmol/L (137-145); Total Bilirubin 0.5 mg/dL (0.2-1.3); Total Protein 6.4 g/dL (6.3-8.2)
[2022-08-21 20:58] LABS: Amorphous Sediment,Urine Few /hpf; Appearance,Urine Cloudy (Clear); Bilirubin,Urine Negative (Negative); Blood,Urine Negative (Negative); Color,Urine Light Yellow; Glucose,Urine (UA) Negative (Negative); Ketones,Urine Negative (Negative); Leukocyte Esterase,Urine Negative (Negative); Mucus,Urine Rare /hpf; Nitrite,Urine Negative (Negative); Protein,Urine Negative (Negative); RBC,Urine 1 /hpf (0-5); Specific Gravity,Urine 1.019 (1.001-1.035); Squamous Epithelial Cell,Urine 5 /hpf (0-4); Urobilinogen,Urine <2.0 mg/dL (<2.0); WBC,Urine 3 /hpf (0-5)
--- NOTE | 2022-08-21 21:11 | CT ---
EXAMINATION TYPE: CT abdomen pelvis w con DATE OF EXAM: 08/21/2022 COMPARISON: 12/09/2021 HISTORY: abd pain CT DLP: 1217.3 mGycm CONTRAST: CT scan of the abdomen and pelvis is performed without Oral Contrast and with IV Contrast, patient in jected with 100 mL of Isovue 300. FINDINGS: LUNG BASES-: No visible nodule. No infiltrate. LIVER/GB: Cholecystectomy clips are in place. No space occupying hepatic lesion. Biliary tree is o f normal caliber. Small hiatal hernia noted with thickening of the distal esophagus. Correlate for es ophagitis. PANCREAS: No inflammation. No distinct mass. SPLEEN: No splenic enlargement. No lesion seen. ADRENALS: No nodule. No thickening. KIDNEYS/BLADDER: No hydronephrosis. No nephrolithiasis. No distinct renal mass. Urinary bladder g rossly unremarkable. BOWEL: Normal appendix. Normal bowel caliber. No inflammation. GENITAL ORGANS: Hysterectomy changes noted. A surgical clip is seen within the pelvic basin. LYMPH NODES: No greater than 1cm abdominal or pelvic lymph nodes are appreciated. AORTA: No significant abnormality. OSSEOUS STRUCTURES: No significant abnormality is seen. OTHER: Fat-containing right periumbilical hernia measuring 3.1 x 2.8 cm. IMPRESSION: 1. Small hiatal hernia noted with thickening of the distal esophagus. Correlate for esophagitis. 2.Fat-containing right periumbilical hernia measuring 3.1 x 2.8 cm.
[2022-08-21] MEDS ORDERED: HYDROmorphone 1 MG/ML 1 ML SYRINGE IVP STA (22:21)
[2022-08-21] MEDS ORDERED: traMADol 50 MG STARTER PACK 3 TAB BTL PO STA (22:22)
[2022-08-21] MEDS ORDERED: ONDANSETRON 4 MG ODT STARTER PACK 2 TAB BTL PO STA (22:22)
[2022-08-21 22:44] VITALS: BP 129/68; RESP 15
== END 2022-08-21 23:17 | disposition home or self-care (01) ==
LOC: EC 16:27
DX: K42.0 Umbilical hernia with obstruction, without gangrene (principal); K42.9 Umbilical hernia without obstruction or gangrene; K44.9 Diaphragmatic hernia without obstruction or gangrene; K21.9 Gastro-esophageal reflux disease without esophagitis; F41.9 Anxiety disorder, unspecified; F32.A Depression, unspecified; Z79.899 Other long term (current) drug therapy; Z91.048 Other nonmedicinal substance allergy status; Z88.2 Allergy status to sulfonamides; Z88.0 Allergy status to penicillin; Z88.1 Allergy status to other antibiotic agents; Z91.09 Other allergy status, other than to drugs and biological substances; Z88.3 Allergy status to other anti-infective agents; Z88.8 Allergy status to other drugs, medicaments and biological substances
CPT/HCPCS: 36415; 80053; 82150; 83605; 83690; 85025; 86140; 81001; 74177; 99284; 96374; 96375 ×2; 96376; 96361; J2405; J1170 ×2; J1885; S0119; Q9967

== ENCOUNTER 2022-08-24 15:33 | Emergency (ER) | payer OTHER ==
[2022-08-24 16:24] LABS: Basophils % (A) 0 %; Eosinophils # (A) 0.1 k/uL (0-0.7); Eosinophils % (A) 1 %; HCT 29.1 % (34.0-46.0); Lymphocytes # (A) 1.2 k/uL (1.0-4.8); Lymphocytes % (A) 31 %; MCH 30.7 pg (25.0-35.0); MCHC 34.4 g/dL (31.0-37.0); MCV 89.2 fL (80.0-100.0); Mean Platelet Volume 7.3; Monocytes # (A) 0.2 k/uL (0-1.0); Monocytes % (A) 5 %; Neutrophils # (A) 2.3 k/uL (1.3-7.7); Neutrophils % (A) 60 %; Platelet Count 182 k/uL (150-450); RBC 3.26 m/uL (3.80-5.40); RDW 13.2 % (11.5-15.5); WBC 3.8 k/uL (3.8-10.6)
[2022-08-24 16:34] LABS: ALT 43 U/L (4-34); AST 36 U/L (14-36); African American GFR (CKD) >90 (>60 ml/min/1.73 sqM); Alkaline Phosphatase 154 U/L (38-126); Anion Gap 2 mmol/L; Blood Urea Nitrogen 16 mg/dL (7-17); Calcium 9.4 mg/dL (8.4-10.2); Carbon Dioxide 32 mmol/L (22-30); Chloride 106 mmol/L (98-107); Glucose 93 mg/dL (74-99); Lipase 40 U/L (23-300); Non-African American GFR(CKD) >90 (>60 ml/min/1.73 sqM); Potassium 4.3 mmol/L (3.5-5.1); Sodium 140 mmol/L (137-145); Total Bilirubin 0.8 mg/dL (0.2-1.3); Total Protein 6.8 g/dL (6.3-8.2)
--- NOTE | 2022-08-24 16:34 | ED ---
General Adult HPI - General Chief complaint: Abdominal Pain Stated complaint: Abd pain Time Seen by Provider: 08/24/22 15:35 Source: patient, EMS Mode of arrival: EMS - History of Present Illness Initial comments: Dictation was produced using [id number] dictation software. please excuse any grammatical, word or spelling errors. Chief Complaint: 32-year-old female well-known to emergency Department presents to the ER for abdominal pain History of Present Illness: Patient 32-year-old female she has known history of fat-containing umbilical abdominal hernia. Patient has been seen in the emergency department multiple occasions for the same complaint. Patient states that she has an appointment with her general surgeon next week for further outpatient planning. Patient states that the pain is causing her to come back. Patient was seen in emergency department 4 days ago for the same complaint. At that time should the computed tomography scan and pelvis that was unremarkable for any acute processes from the hiatal hernia. The ROS documented in this emergency department record has been reviewed and confirmed by me. Those systems with pertinent positive or negative responses have been documented in the HPI. All other systems are other negative and/or noncontributory. PHYSICAL EXAM: General Impression: Alert and oriented x3, not in acute distress HEENT: Normocephalic atraumatic, extra-ocular movements intact, pupils equal and reactive to light bilaterally, mucous membranes moist. Cardiovascular: Heart regular rate and rhythm Chest: Able to complete full sentences, no retractions, no tachypnea Abdomen: abdomen soft, non-tender, non-distended, no organomegaly Musculoskeletal: Pulses present and equal in all extremities, no peripheral ed zac Motor: no focal deficits noted Neurological: CN II-XII grossly intact, no focal motor or sensory deficits noted Skin: Intact with no visualized rashes Psych: Normal affect and mood ED course: 32-year-old well-appearing female presents emergency department for abdominal pain. She has history of chronic abdominal pain stemming from multiple sources. She has had diagnosis of endometriosis in the past. Vital signs upon arrival are within acceptable limits. Nursing notes and chart review was performed Laboratory evaluation obtained. CBC, metabolic panel is unremarkable. Abdominal labs negative. X-rays unremarkable. CT was considered however patient recently got a CT and she has a benign physical exam. Was pt. sent in by a medical professional or institution (, PA, CLAIMS TECHNICIAN, urgent care, hospital, or half-way...) When possible be specific @ -No Did you speak to anyone other than the patient for history (EMS, parent, family, police, friend...)? What history was obtained from this source @ -No Did you review nursing and triage notes (agree or disagree)? Why? @ -I reviewed and agree with nursing and triage notes Were old charts reviewed (outside hosp., previous admission, EMS record, old EKG, old radiological studies, urgent care reports/EKG's, half-way records)? Report findings @ -No old charts were reviewed Differential Diagnosis (chest pain, altered mental status, abdominal pain women, abdominal pain men, vaginal bleeding, musculoskeletal, weakness, fever, dyspnea, syncope, headache, dizziness, GI bleed, back pain, seizure, CVA, palpatations, mental health)? @ -Differential Abdominal Pain Women: Appendicitis, Cholecystitis, diverticulosis, ischemic bowel, pancreatitis, hepatitis, UTI, gastroenteritis, AAA, incarcerated hernia, bowel obstruction, constipation, inflammatory bowel, hepatitis, peptic ulcer disease, splenic infarction, perforated viscus, vulvitis, ovarian torsion, PID, kidney stone, placenta abruption, this is not meant to be an all-inclusive list EKG interpreted by me (3pts min.). @ -None done X-rays interpreted by me (1pt min.). @ -See above CT interpreted by me (1pt min.). @ -None done U/S interpreted by me (1pt. min.). @ -None done What testing was considered but not performed or refused? (CT, X-rays, U/S, labs)? Why? @ -See above What meds were considered but not given or refused? Why? @ -Not applicable Did you discuss the management of the patient with other professionals (professionals i.e. , PA, CLAIMS TECHNICIAN, lab, RT, psych nurse, social media campaign manager, food specialist, teacher, chief development officer, gearcase assembler)? Give summary @ -No Was smoking cessation discussed for >3mins.? @ -No Was critical care preformed (if so, how long)? @ -No Were there social determinants of health that impacted care today? How? (Homelessness, low income, unemployed, alcoholism, drug addiction, transportation, low edu. Level, literacy, decrease access to med. care, long term, rehab)? @ -No Was there de-escalation of care discussed even if they declined (Discuss DNR or withdrawal of care, Hospice)? DNR status @ -No What co-morbidities impacted this encounter? (DM, HTN, Smoking, COPD, CAD, Cancer, CVA, ARF, Chemo, Hep., AIDS, mental health diagnosis, sleep apnea, morbid obesity)? @ -None Was patient admitted / discharged? Hospital course, mention meds given and route, prescriptions, significant lab abnormalities, going to OR and other pertinent info. @ -See above Undiagnosed new problem with uncertain prognosis? @ -No Drug Therapy requiring intensive monitoring for toxicity (Heparin, Nitro, Insulin, Cardizem)? @ -No Were any procedures done? @ -No Diagnosis/symptom? @ -Acute and chronic abdominal pain Acute, or Chronic, or Acute on Chronic? @ -Acute on chronic Uncomplicated (without systemic symptoms) or Complicated (systemic symptoms)? @ -uncomplicated Side effects of treatment? @ -No Exacerbation, Progression, or Severe Exacerbation? @ -No Poses a threat to life or bodily function? How? (Chest pain, [place], [place], pneumonia, PE, COPD, DKA, ARF, appy, cholecystitis, CVA, Diverticulitis, Homicidal, Suicidal, threat to staff... and all critical care pts) @ -No - Related Data Home Medications Medication Instructions Recorded Confirmed Citalopram Hydrobromide [CeleXA] 40 mg PO HS 02/12/22 03/07/22 Ibuprofen [Motrin] 800 mg PO TID PRN 03/07/22 03/07/22 Levofloxacin [Levaquin] 750 mg PO DAILY 03/07/22 03/07/22 Omeprazole 20 mg PO BID 03/07/22 03/07/22 Ondansetron Odt [Zofran Odt] 4 mg PO DAILY 03/07/22 03/07/22 metroNIDAZOLE [Flagyl] 500 mg PO TID 03/07/22 03/07/22 Previous Rx's Medication Instructions Recorded traMADol HCl [Ultram] 50 - 100 mg PO Q6HR PRN 3 Days #15 02/12/22 tab HYDROcodone/APAP 7.5-325MG [[place] 1 tab PO Q6HR PRN 3 Days #12 tab 03/07/22 7.5-325] Ketorolac [Toradol] 10 mg PO Q6HR PRN #12 tab 03/07/22 Fluconazole [Diflucan] 150 mg PO ONCE #2 tab 03/12/22 HYDROcodone/APAP 5-325MG [[place] 1 tab PO Q6HR PRN 3 Days #12 tab 03/12/22 5-325] Ketorolac [Toradol] 10 mg PO Q6HR PRN #12 tab 03/12/22 traMADol HCL 50 mg PO BID 3 Days #6 tab 04/13/22 Ondansetron Odt [Zofran Odt] 4 mg PO Q8HR PRN #15 tab 08/21/22 Allergies Allergy/AdvReac Type Severity Reaction Status Date / Time adhesive tape Allergy Rash/Hives Verified 08/24/22 15:40 aloe vera Allergy Rash/Hives Verified 08/24/22 15:40 azithromycin Allergy Rash/Hives Verified 08/24/22 15:40 cephalexin Allergy Rash/Hives Verified 08/24/22 15:40 metronidazole [From Flagyl] Allergy Rash/Hives Verified 08/24/22 15:40 Penicillins Allergy Rash/Hives Verified 08/24/22 15:40 sulfamethoxazole Allergy Rash/Hives Verified 08/24/22 15:40 [From Bactrim] trimethoprim [From Bactrim] Allergy Rash/Hives Verified 08/24/22 15:40 alprazolam [From Xanax] AdvReac MAKES Verified 08/24/22 15:40 PARANOID dicyclomine [From Bentyl] AdvReac constipatio Verified 08/24/22 15:40 n Review of Systems ROS Statement: Those systems with pertinent positive or pertinent negative responses have been documented in the HPI. ROS Other: All systems not noted in ROS Statement are negative. Past Medical History Past Medical History: Blood Disorder, GERD/Reflux Additional Past Medical History / Comment(s): Endometriosis, polycystic ovarian syndrome. IRON DEFICIENCY ANEMIA. Stomach Ulcer. ovarian cyst History of Any Multi-Drug Resistant Organisms: None Reported Past Surgical History: Ablation, Section, Cholecystectomy, Hysterectomy, Tubal Ligation, Uterine Ablation Additional Past Surgical History / Comment(s): Laparoscopy X2, Section X3. Right ovary and right tube removed - 2019. cyst removed from chest. AUG 2020 - ADHESION REMOVAL FROM PAST . Vaginal. pelvic biopsy 10/21. PCOS Past Anesthesia/Blood Transfusion Reactions: No Reported Reaction Past Psychological History: Anxiety, Depression Smoking Status: Never smoker Past Alcohol Use History: Rare Past Drug Use History: None Reported - Past Family History Mother Family Medical History: Hyperlipidemia Additional Family Medical History / Comment(s): Depression and anxiety. Course Vital Signs 08/24/22 15:35 Temperature 99.2 F Pulse Rate 79 Respiratory 19 Rate Blood Pressure 115/84 O2 Sat by Pulse 99 Oximetry Medical Decision Making - Lab Data Result diagrams: 08/24/22 16:09 08/24/22 16:09 Lab Results 08/24/22 08/24/22 08/24/22 Range/Units 16:09 16:09 16:09 WBC 3.8 (3.8-10.6) k/uL RBC 3.26 L (3.80-5.40) m/uL Hgb 10.0 L (11.4-16.0) gm/dL Hct 29.1 L (34.0-46.0) % MCV 89.2 (80.0-100.0) fL MCH 30.7 (25.0-35.0) pg MCHC 34.4 (31.0-37.0) g/dL RDW 13.2 (11.5-15.5) % Plt Count 182 (150-450) k/uL MPV 7.3 Neutrophils % 60 % Lymphocytes % 31 % Monocytes % 5 % Eosinophils % 1 % Basophils % 0 % Neutrophils # 2.3 (1.3-7.7) k/uL Lymphocytes # 1.2 (1.0-4.8) k/uL Monocytes # 0.2 (0-1.0) k/uL Eosinophils # 0.1 (0-0.7) k/uL Basophils # 0.0 (0-0.2) k/uL Sodium 140 (137-145) mmol/L Potassium 4.3 (3.5-5.1) mmol/L Chloride 106 (98-107) mmol/L Carbon Dioxide 32 H (22-30) mmol/L Anion Gap 2 mmol/L BUN 16 (7-17) mg/dL Creatinine 0.80 (0.52-1.04) mg/dL Est GFR (CKD-EPI)AfAm >90 (>60 ml/min/1.73 sqM) Est GFR (CKD-EPI)NonAf >90 (>60 ml/min/1.73 sqM) Glucose 93 (74-99) mg/dL Plasma Lactic Acid Santhosh 0.7 (0.7-2.0) mmol/L Calcium 9.4 (8.4-10.2) mg/dL Total Bilirubin 0.8 (0.2-1.3) mg/dL AST 36 (14-36) U/L ALT 43 H (4-34) U/L Alkaline Phosphatase 154 H (38-126) U/L Total Protein 6.8 (6.3-8.2) g/dL Albumin 4.0 (3.5-5.0) g/dL Lipase 40 (23-300) U/L Disposition Clinical Impression: Abdominal pain Disposition: HOME SELF-CARE Condition: Good Instructions (If sedation given, give patient instructions): Abdominal Pain (ED) Is patient prescribed a controlled substance at d/c from ED?: No Referrals: Jane Luis MD [STAFF PHYSICIAN] - 1-2 days Time of Disposition: 17:39
--- NOTE | 2022-08-24 17:02 | XR ---
EXAMINATION TYPE: XR abdomen 1V DATE OF EXAM: 08/24/2022 COMPARISON: 05/03/2022 HISTORY: Pain TECHNIQUE: 2 views upright FINDINGS: There is no sign of intestinal obstruction or pneumoperitoneum. Fecal pattern is normal. Th ere are clips from cholecystectomy. There is a clip in the pelvis on the left side. No evidence of a mass. No pathologic calcifications over the kidneys. Lung bases are clear. IMPRESSION: Nonacute abdomen. No adverse change.
[2022-08-24] MEDS ORDERED: HYDROmorphone 0.5 MG/0.5 ML SYRINGE IVP STA (17:34)
[2022-08-24 17:44] VITALS: BP 124/74; PULSE 72; RESP 18; TEMP 98.7
== END 2022-08-24 17:48 | disposition home or self-care (01) ==
LOC: EC 15:33
DX: R10.9 Unspecified abdominal pain (principal); K21.9 Gastro-esophageal reflux disease without esophagitis; F41.9 Anxiety disorder, unspecified; F32.A Depression, unspecified; Z88.0 Allergy status to penicillin; Z88.1 Allergy status to other antibiotic agents; Z88.2 Allergy status to sulfonamides; Z91.048 Other nonmedicinal substance allergy status; Z88.8 Allergy status to other drugs, medicaments and biological substances; Z90.49 Acquired absence of other specified parts of digestive tract; Z79.899 Other long term (current) drug therapy
CPT/HCPCS: 36415; 80053; 83605; 83690; 85025; 74018; 99284; 96374; J1170

== ENCOUNTER 2022-10-10 08:43 | Emergency (ER) | payer OTHER ==
[2022-10-10 08:47] VITALS: BP 136/83; PULSE 113; RESP 18; TEMP 98
[2022-10-10] MEDS ORDERED: ORPHENADRINE 30 MG/ML 2 ML VIAL IM STA (09:03)
[2022-10-10] MEDS ORDERED: HYDROcodone/APAP 5-325MG 1 EACH TAB PO STA (09:03)
--- NOTE | 2022-10-10 09:09 | ED ---
Abdominal Pain HPI - General Chief Complaint: Abdominal Pain Stated Complaint: stomach pain - post op Time Seen by Provider: 10/10/22 08:53 Source: patient, RN notes reviewed, old records reviewed Mode of arrival: ambulatory Limitations: no limitations - History of Present Illness Initial Comments: This is a nontoxic-appearing 32-year-old female that presents ambulatory with complaints of left sided abdominal pain after picking up an 18 pound baby 3 days ago. Patient describes pain as burning and worse with movement. Denies any fevers. No nausea vomiting or diarrhea. MD Complaint: abdominal pain -: days(s) (3) Location: L flank (oblique left side) Severity scale (1-10): 8 Quality: burning Consistency: constant Improves With: nothing Worsens With: other (palpation, movement, twisting) Associated Symptoms: denies other symptoms Treatments Prior to Arrival: other (ice, tylenol and motrin) - Related Data Home Medications Medication Instructions Recorded Confirmed Omeprazole 20 mg PO HS 03/07/22 10/10/22 Sertraline [Zoloft] 25 mg PO HS 09/12/22 10/10/22 Acetaminophen Tab [Tylenol] 650 mg PO Q6H PRN 09/23/22 10/10/22 Ibuprofen [Motrin Ib] 800 mg PO TID PRN 09/23/22 10/10/22 Allergies Allergy/AdvReac Type Severity Reaction Status Date / Time adhesive tape Allergy Rash/Hives Verified 10/10/22 09:12 aloe vera Allergy Rash/Hives Verified 10/10/22 09:12 azithromycin Allergy Rash/Hives Verified 10/10/22 09:12 cephalexin Allergy Rash/Hives Verified 10/10/22 09:12 metronidazole [From Flagyl] Allergy Rash/Hives Verified 10/10/22 09:12 Penicillins Allergy Rash/Hives Verified 10/10/22 09:12 sulfamethoxazole Allergy Rash/Hives Verified 10/10/22 09:12 [From Bactrim] trimethoprim [From Bactrim] Allergy Rash/Hives Verified 10/10/22 09:12 alprazolam [From Xanax] AdvReac MAKES Verified 10/10/22 09:12 PARANOID dicyclomine [From Bentyl] AdvReac constipatio Verified 10/10/22 09:12 n Review of Systems ROS Statement: Those systems with pertinent positive or pertinent negative responses have been documented in the HPI. ROS Other: All systems not noted in ROS Statement are negative. Past Medical History Past Medical History: Blood Disorder, GERD/Reflux Additional Past Medical History / Comment(s): Endometriosis, polycystic ovarian syndrome. IRON DEFICIENCY ANEMIA. Stomach Ulcer. ovarian cyst History of Any Multi-Drug Resistant Organisms: None Reported Past Surgical History: Ablation, Section, Cholecystectomy, Hernia Repair, Hysterectomy, Tubal Ligation, Uterine Ablation Additional Past Surgical History / Comment(s): Laparoscopy X2, Section X3. Right ovary and right tube removed - 2019. cyst removed from chest. AUG 2020 - ADHESION REMOVAL FROM PAST . Vaginal. pelvic biopsy 05/11. PCOS Past Anesthesia/Blood Transfusion Reactions: No Reported Reaction Past Psychological History: Anxiety, Depression Smoking Status: Never smoker Past Alcohol Use History: Rare Past Drug Use History: None Reported - Past Family History Mother Family Medical History: Hyperlipidemia Additional Family Medical History / Comment(s): Depression and anxiety. General Exam Limitations: no limitations General appearance: alert, in no apparent distress Head exam: Present: atraumatic Eye exam: Absent: scleral icterus, conjunctival injection, periorbital swelling Respiratory exam: Absent: respiratory distress, accessory muscle use Cardiovascular Exam: Present: tachycardia GI/Abdominal exam: Present: soft, tenderness. Absent: distended, guarding, rebound, rigid, mass Extremities exam: Present: normal capillary refill. Absent: pedal edema Back exam: Present: normal inspection, full ROM. Absent: tenderness, CVA tenderness (R), CVA tenderness (L), rash noted Neurological exam: Present: alert, oriented X3, normal gait Psychiatric exam: Present: normal affect, normal mood Skin exam: Present: warm, dry, normal color. Absent: rash, cyanosis, diaphoretic, petechiae, pallor Course Vital Signs 10/10/22 08:45 Temperature 98.0 F Pulse Rate 113 H Respiratory 18 Rate Blood Pressure 136/83 O2 Sat by Pulse 100 Oximetry Medical Decision Making - Medical Decision Making Patient presents ambulatory with steady gait. Denies any fevers. States that she lifted a 18 pound baby and felt a pull in her left oblique. Has had burning pain since. No relief with Tylenol Motrin and ice. On exam abdomen is soft and minimally tender. Pain is worse with palpation over the left lateral oblique muscle. Vital signs are stable. She is afebrile. She is agreeable to getting a [place] and muscle relaxer and directed to follow up with her primary care doctor. Case discussed with Dr. Rangel. Was pt. sent in by a medical professional or institution (, PA, IT SENIOR SOFTWARE ENGINEER JAVA, urgent care, hospital, or senior living...) When possible be specific @ -No Did you speak to anyone other than the patient for history (EMS, parent, family, police, friend...)? What history was obtained from this source @ -No Did you review nursing and triage notes (agree or disagree)? Why? @ -I reviewed and agree with nursing and triage notes Were old charts reviewed (outside hosp., previous admission, EMS record, old EKG, old radiological studies, urgent care reports/EKG's, senior living records)? Report findings @ -yes most recent ER visit and lab work Differential Diagnosis (chest pain, altered mental status, abdominal pain women, abdominal pain men, vaginal bleeding, weakness, fever, dyspnea, syncope, headache, dizziness, GI bleed, back pain, seizure, CVA, palpatations, mental health, musculoskeletal)? @ -Differential Abdominal Pain Women: Appendicitis, Cholecystitis, diverticulosis, ischemic bowel, pancreatitis, hepatitis, UTI, gastroenteritis, AAA, incarcerated hernia, bowel obstruction, constipation, inflammatory bowel, hepatitis, peptic ulcer disease, splenic infarction, perforated viscus, vulvitis, ovarian torsion, PID, kidney stone, placenta abruption, musculoskeletal pain , this is not meant to be an all-inclusive list EKG interpreted by me (3pts min.). @ -n/a X-rays interpreted by me (1pt min.). @ -None done CT interpreted by me (1pt min.). @ -None done U/S interpreted by me (1pt. min.). @ -None done What testing was considered but not performed or refused? (CT, X-rays, U/S, labs)? Why? @ -None What meds were considered but not given or refused? Why? @ -None Did you discuss the management of the patient with other professionals (professionals i.e. , ANALI, IT SENIOR SOFTWARE ENGINEER JAVA, lab, RT, psych nurse, social media senior associate, injection molding technician, teacher, tactical intelligence officer, director of casework services)? Give summary @ -No Was smoking cessation discussed for >3mins.? @ -No Was critical care preformed (if so, how long)? @ -No Were there social determinants of health that impacted care today? How? (Homelessness, low income, unemployed, alcoholism, drug addiction, transportation, low edu. Level, literacy, decrease access to med. care, penitentiary, rehab)? @ -No Was there de-escalation of care discussed even if they declined (Discuss DNR or withdrawal of care, Hospice)? DNR status @ -No What co-morbidities impacted this encounter? (DM, HTN, Smoking, COPD, CAD, Cancer, CVA, ARF, Chemo, Hep., AIDS, mental health diagnosis, sleep apnea, morbid obesity)? @ -History of GERD, endometriosis, pedal last, stomach ulcer, cholecystectomy, tubal ligation, anxiety, depression Was patient admitted / discharged? Hospital course, mention meds given and route, prescriptions, significant lab abnormalities, going to OR and other pertinent info. @ -Discharged Undiagnosed new problem with uncertain prognosis? @ -No Drug Therapy requiring intensive monitoring for toxicity (Heparin, Nitro, Insulin, Cardizem)? @ -No Were any procedures done? @ -No Diagnosis/symptom? @ -default Acute, or Chronic, or Acute on Chronic? @ -default Uncomplicated (without systemic symptoms) or Complicated (systemic symptoms)? @ -default Side effects of treatment? @ -No Exacerbation, Progression, or Severe Exacerbation? @ -No Poses a threat to life or bodily function? How? (Chest pain, [place], [place], pneumonia, PE, COPD, DKA, ARF, appy, cholecystitis, CVA, Diverticulitis, Homicidal, Suicidal, threat to staff... and all critical care pts) @ -No Disposition Clinical Impression: Abdominal muscle strain Disposition: HOME SELF-CARE Condition: Good Instructions (If sedation given, give patient instructions): Muscle Strain (ED), Core Strengthening Exercises (ED) Additional Instructions: Continue Tylenol and Motrin as needed for pain. Warm compresses to the area. Follow-up with your primary care doctor this week. Is patient prescribed a controlled substance at d/c from ED?: No Referrals: Mario Sellers MD [Primary Care Provider] - 1-2 days Time of Disposition: 09:09
== END 2022-10-10 09:28 | disposition home or self-care (01) ==
LOC: EC 08:43
DX: S39.011A Strain of muscle, fascia and tendon of abdomen, initial encounter (principal); K21.9 Gastro-esophageal reflux disease without esophagitis; F32.A Depression, unspecified; F41.9 Anxiety disorder, unspecified; Z79.899 Other long term (current) drug therapy; Z88.0 Allergy status to penicillin; Z88.1 Allergy status to other antibiotic agents; Z88.2 Allergy status to sulfonamides; Z91.048 Other nonmedicinal substance allergy status; X50.0XXA Overexertion from strenuous movement or load, initial encounter
CPT/HCPCS: 99284; 96372; J2360

== ENCOUNTER 2022-10-30 20:52 | Emergency (ER) | payer OTHER ==
[2022-10-30 21:26] VITALS: TEMP 98.7
--- NOTE | 2022-10-30 22:10 | ED ---
General Adult HPI - General Source: patient, RN notes reviewed Mode of arrival: ambulatory Limitations: no limitations <Concepcion Bowens - Last Filed: 10/30/22 22:10> <Cali Rangel - Last Filed: 10/30/22 23:32> - General Chief complaint: Abdominal Pain Stated complaint: L side pain Time Seen by Provider: 10/30/22 22:09 - History of Present Illness Initial comments: 32-year-old female who is well-known to this in the emergency department presents the emergency department with chronic left lower quadrant abdominal pain. (Concepcion Bowens) 32-year-old female 6 weeks postop hernia repair with persistent pain at a left incision site. There is no drainage. No fever. No vomiting. She's having normal bowel movements. (Cali Rangel) - Related Data Home Medications Medication Instructions Recorded Confirmed Omeprazole 20 mg PO HS 03/07/22 10/10/22 Sertraline [Zoloft] 25 mg PO HS 09/12/22 10/10/22 Acetaminophen Tab [Tylenol] 650 mg PO Q6H PRN 09/23/22 10/10/22 Ibuprofen [Motrin Ib] 800 mg PO TID PRN 09/23/22 10/10/22 Allergies Allergy/AdvReac Type Severity Reaction Status Date / Time adhesive tape Allergy Rash/Hives Verified 10/30/22 21:26 aloe vera Allergy Rash/Hives Verified 10/30/22 21:26 azithromycin Allergy Rash/Hives Verified 10/30/22 21:26 cephalexin Allergy Rash/Hives Verified 10/30/22 21:26 metronidazole [From Flagyl] Allergy Rash/Hives Verified 10/30/22 21:26 Penicillins Allergy Rash/Hives Verified 10/30/22 21:26 sulfamethoxazole Allergy Rash/Hives Verified 10/30/22 21:26 [From Bactrim] trimethoprim [From Bactrim] Allergy Rash/Hives Verified 10/30/22 21:26 alprazolam [From Xanax] AdvReac MAKES Verified 10/30/22 21:26 PARANOID dicyclomine [From Bentyl] AdvReac constipatio Verified 10/30/22 21:26 n Review of Systems ROS Other: All systems not noted in ROS Statement are negative. <Concepcion Bowens - Last Filed: 10/30/22 22:10> ROS Other: All systems not noted in ROS Statement are negative. <JackietrinidadCali Edmundo - Last Filed: 10/30/22 23:32> ROS Statement: Those systems with pertinent positive or pertinent negative responses have been documented in the HPI. Past Medical History Past Medical History: Blood Disorder, GERD/Reflux Additional Past Medical History / Comment(s): Endometriosis, polycystic ovarian syndrome. IRON DEFICIENCY ANEMIA. Stomach Ulcer. ovarian cyst History of Any Multi-Drug Resistant Organisms: None Reported Past Surgical History: Ablation, Section, Cholecystectomy, Hernia Repair, Hysterectomy, Tubal Ligation, Uterine Ablation Additional Past Surgical History / Comment(s): Laparoscopy X2, Section X3. Right ovary and right tube removed - 2019. cyst removed from chest. AUG 2020 - ADHESION REMOVAL FROM PAST . Vaginal. pelvic biopsy 05/11. PCOS Past Anesthesia/Blood Transfusion Reactions: No Reported Reaction Past Psychological History: Anxiety, Depression Smoking Status: Never smoker Past Alcohol Use History: Rare Past Drug Use History: None Reported - Past Family History Mother Family Medical History: Hyperlipidemia Additional Family Medical History / Comment(s): Depression and anxiety. <Concepcion Bowens - Last Filed: 10/30/22 22:10> General Exam Limitations: no limitations <Concepcion Bowens - Last Filed: 10/30/22 22:10> General appearance: alert, in no apparent distress Head exam: Present: atraumatic, normocephalic Eye exam: Present: normal appearance, PERRL ENT exam: Present: normal exam Neck exam: Present: normal inspection. Absent: tenderness Respiratory exam: Present: normal lung sounds bilaterally. Absent: respiratory distress, wheezes Cardiovascular Exam: Present: regular rate, normal rhythm GI/Abdominal exam: Present: soft, tenderness (Tenderness at the left medial incision. There is no erythema. There is no induration. There is no fluctuance.). Absent: distended, guarding, rebound Extremities exam: Present: normal inspection, normal capillary refill Neurological exam: Present: alert, oriented X3 Psychiatric exam: Present: normal affect, normal mood <Cali Rangel - Last Filed: 10/30/22 23:32> - General Exam Comments Initial Comments: Visual Physical Exam Vital signs reviewed General: Well-appearing, nontoxic, no acute distress. Head: Normocephalic, atraumatic Eyes: PERRLA, EOMI ENT: Airway patent Chest: Nonlabored breathing Skin: No visual rash, normal skin tone Neuro: Alert and oriented 3 Musculoskeletal: No gross abnormalities (Concepcion Bowens) Course Vital Signs 10/30/22 21:23 Temperature 98.7 F Pulse Rate 109 H Respiratory 20 Rate Blood Pressure 127/83 O2 Sat by Pulse 99 Oximetry Medical Decision Making <ToddtannerCali feng - Last Filed: 10/30/22 23:32> - Medical Decision Making Was pt. sent in by a medical professional or institution (, PA, LEAD SOFTWARE DEVELOPMENT ENGINEER, urgent care, hospital, or long-term...) When possible be specific @ -No Did you speak to anyone other than the patient for history (EMS, parent, family, police, friend...)? What history was obtained from this source @ -No Did you review nursing and triage notes (agree or disagree)? Why? @ -I reviewed and agree with nursing and triage notes Were old charts reviewed (outside hosp., previous admission, EMS record, old EKG, old radiological studies, urgent care reports/EKG's, long-term records)? Report findings @ -Reviewed previous ER visits, previous imaging clinic CT imaging of the abdomen postsurgical Differential Diagnosis (chest pain, altered mental status, abdominal pain women, abdominal pain men, vaginal bleeding, weakness, fever, dyspnea, syncope, headache, dizziness, GI bleed, back pain, seizure, CVA, palpatations, mental health, musculoskeletal)? Differential Abdominal Pain Women: Appendicitis, Cholecystitis, diverticulosis, ischemic bowel, pancreatitis, hepatitis, UTI, gastroenteritis, AAA, incarcerated hernia, bowel obstruction, constipation, inflammatory bowel, hepatitis, peptic ulcer disease, splenic infarction, perforated viscus, vulvitis, ovarian torsion, PID, kidney stone, placenta abruption, this is not meant to be an all-inclusive list EKG interpreted by me (3pts min.). @ -As above X-rays interpreted by me (1pt min.). @ -None done CT interpreted by me (1pt min.). @ -None done U/S interpreted by me (1pt. min.). @ -None done What testing was considered but not performed or refused? (CT, X-rays, U/S, labs)? Why? @ -None What meds were considered but not given or refused? Why? @ -None Did you discuss the management of the patient with other professionals (professionals i.e. , PA, LEAD SOFTWARE DEVELOPMENT ENGINEER, lab, RT, psych nurse, social work specialist, human resource internship, teacher, code enforcement officer, counseling case manager)? Give summary @ -No Was smoking cessation discussed for >3mins.? @ -No Was critical care preformed (if so, how long)? @ -No Were there social determinants of health that impacted care today? How? (Homelessness, low income, unemployed, alcoholism, drug addiction, transportation, low edu. Level, literacy, decrease access to med. care, correction, r ehab)? @ -No Was there de-escalation of care discussed even if they declined (Discuss DNR or withdrawal of care, Hospice)? DNR status @ -No What co-morbidities impacted this encounter? (DM, HTN, Smoking, COPD, CAD, Cancer, CVA, ARF, Chemo, Hep., AIDS, mental health diagnosis, sleep apnea, morbid obesity)? @ -None Was patient admitted / discharged? Hospital course, mention meds given and route, prescriptions, significant lab abnormalities, going to OR and other pertinent info. @ -32-year-old female with pain at her incision site left abdomen. There is no skin changes. There is tenderness at the site without drainage without induration without fluctuance. There is no generalized abdominal pain, no rebound. Patient has stable vitals. I feel she is appropriate for continued outpatient evaluation. No need for imaging or laboratory testing at this time. Undiagnosed new problem with uncertain prognosis? @ -No Drug Therapy requiring intensive monitoring for toxicity (Heparin, Nitro, Insulin, Cardizem)? @ -No Were any procedures done? @ -No Diagnosis/symptom? @ -[Incisional pain Acute, or Chronic, or Acute on Chronic? @ -[Chronic Uncomplicated (without systemic symptoms) or Complicated (systemic symptoms)? @ -[Complicated Side effects of treatment? @ -No Exacerbation, Progression, or Severe Exacerbation? @ -No Poses a threat to life or bodily function? How? (Chest pain, USA, DC, pneumonia, PE, COPD, DKA, ARF, appy, cholecystitis, CVA, Diverticulitis, Homicidal, Suicidal, threat to staff... and all critical care pts) @ -No (Cali Rangel) Disposition <Concepcion Bowens - Last Filed: 10/30/22 22:10> Is patient prescribed a controlled substance at d/c from ED?: No Time of Disposition: 23:32 <Cali Rangel - Last Filed: 10/30/22 23:32> Clinical Impression: Abdominal pain Disposition: HOME SELF-CARE Condition: Fair Instructions (If sedation given, give patient instructions): Abdominal Pain (ED) Referrals: Mario Sellers MD [Primary Care Provider] - 1-2 days Ryan Bahena MD [STAFF PHYSICIAN] - 1-2 days
[2022-10-30] MEDS ORDERED: HYDROcodone/APAP 5-325MG 1 EACH TAB PO STA (23:28)
[2022-10-30 23:38] VITALS: BP 116/72; PULSE 92; RESP 16
== END 2022-10-30 23:38 | disposition home or self-care (01) ==
LOC: EC 20:52
DX: R10.32 Left lower quadrant pain (principal); G89.18 Other acute postprocedural pain; K21.9 Gastro-esophageal reflux disease without esophagitis; F41.9 Anxiety disorder, unspecified; F32.A Depression, unspecified; Z79.899 Other long term (current) drug therapy; Z91.09 Other allergy status, other than to drugs and biological substances; Z88.6 Allergy status to analgesic agent; Z88.2 Allergy status to sulfonamides; Z88.0 Allergy status to penicillin; Z88.8 Allergy status to other drugs, medicaments and biological substances
CPT/HCPCS: 99284

== ENCOUNTER 2022-11-23 18:33 | Emergency (ER) | payer OTHER ==
[2022-11-23 19:30] VITALS: TEMP 98
--- NOTE | 2022-11-23 22:24 | ED ---
Abdominal Pain HPI - General Source: patient, RN notes reviewed Mode of arrival: ambulatory Limitations: no limitations <Annalisa Leiva - Last Filed: 11/23/22 22:23> - History of Present Illness MD Complaint: abdominal pain Onset/Timin -: week(s) Location: RLQ Radiation: none Migration to: no migration Severity: severe Quality: sharp Consistency: intermittent Improves With: nothing Worsens With: nothing Associated Symptoms: nausea Treatments Prior to Arrival: NSAIDs <Donal Carpio - Last Filed: 12/04/22 10:08> - General Chief Complaint: Abdominal Pain Stated Complaint: pelvic pain Time Seen by Provider: 11/23/22 22:23 - History of Present Illness Initial Comments: Patient presenting with right pelvic pain x 2 days. Nausea no vomiting. No fever, chills, dysuria, blood in urine, vaginal discharge, vaginal bleeding. (Annalisa Leiva) This patient is a 32-year-old with history of multiple previous surgeries inclu ding hysterectomy with RSO, umbilical hernia repair, who used to have similar pains prior to the hysterectomy. She had not been having pains since that occurred in May. Pains recurred between 2 and 3 weeks ago. She did see her primary physician and has been taking naproxen but she states the pain worsened over the past couple of days or so. She describes it as sharp and cramping. It gets better and worse but does not resolve. There is associated nausea. No change in bowel movements or bladder function. (Donal Carpio) - Related Data Home Medications Medication Instructions Recorded Confirmed Omeprazole 20 mg PO HS 03/07/22 10/10/22 Sertraline [Zoloft] 25 mg PO HS 09/12/22 10/10/22 Acetaminophen Tab [Tylenol] 650 mg PO Q6H PRN 09/23/22 10/10/22 Ibuprofen [Motrin Ib] 800 mg PO TID PRN 09/23/22 10/10/22 Allergies Allergy/AdvReac Type Severity Reaction Status Date / Time adhesive tape Allergy Rash/Hives Verified 11/23/22 19:26 aloe vera Allergy Rash/Hives Verified 11/23/22 19:26 azithromycin Allergy Rash/Hives Verified 11/23/22 19:26 cephalexin Allergy Rash/Hives Verified 11/23/22 19:26 metronidazole [From Flagyl] Allergy Rash/Hives Verified 11/23/22 19:26 Penicillins Allergy Rash/Hives Verified 11/23/22 19:26 sulfamethoxazole Allergy Rash/Hives Verified 11/23/22 19:26 [From Bactrim] trimethoprim [From Bactrim] Allergy Rash/Hives Verified 11/23/22 19:26 alprazolam [From Xanax] AdvReac MAKES Verified 11/23/22 19:26 PARANOID dicyclomine [From Bentyl] AdvReac constipatio Verified 11/23/22 19:26 n Review of Systems ROS Other: All systems not noted in ROS Statement are negative. <Annalisa Leiva - Last Filed: 11/23/22 22:23> ROS Other: All systems not noted in ROS Statement are negative. Constitutional: Denies: fever, chills Respiratory: Denies: cough, dyspnea Cardiovascular: Denies: chest pain, palpitations, edema Gastrointestinal: Reports: abdominal pain, nausea. Denies: vomiting, diarrhea, hematemesis, melena, hematochezia Genitourinary: Denies: dysuria, hematuria Musculoskeletal: Denies: back pain Skin: Denies: rash Neurological: Denies: headache, weakness <Donal Carpio - Last Filed: 12/04/22 10:08> ROS Statement: Those systems with pertinent positive or pertinent negative responses have been documented in the HPI. Past Medical History Past Medical History: Blood Disorder, GERD/Reflux Additional Past Medical History / Comment(s): Endometriosis, polycystic ovarian syndrome. IRON DEFICIENCY ANEMIA. Stomach Ulcer. ovarian cyst History of Any Multi-Drug Resistant Organisms: None Reported Past Surgical History: Ablation, Section, Cholecystectomy, Hernia R epair, Hysterectomy, Tubal Ligation, Uterine Ablation Additional Past Surgical History / Comment(s): Laparoscopy X2, Section X3. Right ovary and right tube removed - 2019. cyst removed from chest. AUG 2020 - ADHESION REMOVAL FROM PAST . Vaginal. pelvic biopsy 05/11. PCOS Past Anesthesia/Blood Transfusion Reactions: No Reported Reaction Past Psychological History: Anxiety, Depression Smoking Status: Never smoker Past Alcohol Use History: Rare Past Drug Use History: None Reported - Past Family History Mother Family Medical History: Hyperlipidemia Additional Family Medical History / Comment(s): Depression and anxiety. <Annalisa Leiva - Last Filed: 11/23/22 22:23> General Exam Limitations: no limitations <Annalisa Leiva - Last Filed: 11/23/22 22:23> General appearance: alert, in no apparent distress Head exam: Present: atraumatic, normocephalic Eye exam: Present: normal appearance. Absent: scleral icterus, conjunctival injection Neck exam: Present: normal inspection Respiratory exam: Present: normal lung sounds bilaterally. Absent: respiratory distress, wheezes, rales, rhonchi, stridor Cardiovascular Exam: Present: regular rate, normal rhythm, normal heart sounds. Absent: systolic murmur, diastolic murmur, rubs, gallop GI/Abdominal exam: Present: soft. Absent: distended, tenderness, guarding, rebound Extremities exam: Present: normal inspection, normal capillary refill. Absent: pedal edema, calf tenderness Back exam: Present: normal inspection. Absent: CVA tenderness (R), CVA tenderness (L) Skin exam: Present: warm, dry, intact, normal color. Absent: rash <Donal Carpio - Last Filed: 12/04/22 10:08> Course Vital Signs 11/23/22 11/23/22 11/24/22 19:27 22:51 06:28 Temperature 98 F Pulse Rate 93 100 79 Respiratory 18 15 16 Rate Blood Pressure 128/80 122/76 110/67 O2 Sat by Pulse 98 99 96 Oximetry Medical Decision Making - Lab Data Result diagrams: 11/23/22 22:51 11/23/22 22:51 <Donal Carpio - Last Filed: 12/04/22 10:08> - Medical Decision Making This patient is 32-year-old woman presenting to have evaluation of abdominal pain. Given that she did have some tenderness and was complaining of continued pain, computed tomography scan of the abdomen was obtained. The patient subsequently did have relief of symptoms, was feeling well enough that she wanted to go home. We discussed appropriate further care and follow-up as well as return parameters. The patient had computed tomography scan of the abdomen which I interpreted as not showing bowel obstruction, free air, or other acute surgical condition Was pt. sent in by a medical professional or institution (, PA, BUFFING MACHINE OPERATOR SEMIAUTOMATIC, urgent care, hospital, or [facility]...) When possible be specific @ -[No] Did you speak to anyone other than the patient for history (EMS, parent, family, police, friend...)? What history was obtained from this source @ -[No] Did you review nursing and triage notes (agree or disagree)? Why? @ -[I reviewed and agree with nursing and triage notes] Were old charts reviewed (outside hosp., previous admission, EMS record, old EKG, old radiological studies, urgent care reports/EKG's, [facility] records)? Report findings @ -[No old charts were reviewed] Differential Diagnosis (chest pain, altered mental status, abdominal pain women, abdominal pain men, vaginal bleeding, weakness, fever, dyspnea, syncope, headache, dizziness, GI bleed, back pain, seizure, CVA, palpatations, mental health, musculoskeletal)? @ -[Differential Abdominal Pain Women: Appendicitis, Cholecystitis, diverticulosis, ischemic bowel, pancreatitis, hepatitis, UTI, gastroenteritis, AAA, incarcerated hernia, bowel obstruction, constipation, inflammatory bowel, hepatitis, peptic ulcer disease, splenic in farction, perforated viscus, vulvitis, ovarian torsion, PID, kidney stone, placenta abruption, this is not meant to be an all-inclusive list EKG interpreted by me (3pts min.). @ -[ X-rays interpreted by me (1pt min.). @ -[None done] CT interpreted by me (1pt min.). @ -[As above U/S interpreted by me (1pt. min.). @ -[None done] What testing was considered but not performed or refused? (CT, X-rays, U/S, labs)? Why? @ -[None] What meds were considered but not given or refused? Why? @ -[None] Did you discuss the management of the patient with other professionals (professionals i.e. , PA, BUFFING MACHINE OPERATOR SEMIAUTOMATIC, lab, RT, psych nurse, social media developer, gas system operator, teacher, duty officer, catalytic case operator)? Give summary @ -[No] Was smoking cessation discussed for >3mins.? @ -[No] Was critical care preformed (if so, how long)? @ -[No] Were there social determinants of health that impacted care today? How? (Homelessness, low income, unemployed, alcoholism, drug addiction, transportation, low edu. Level, literacy, decrease access to med. care, [facility], rehab)? @ -[No] Was there de-escalation of care discussed even if they declined (Discuss DNR or withdrawal of care, Hospice)? DNR status @ -[No] What co-morbidities impacted this encounter? (DM, HTN, Smoking, COPD, CAD, Cancer, CVA, ARF, Chemo, Hep., AIDS, mental health diagnosis, sleep apnea, morbid obesity)? @ -[None] Was patient admitted / discharged? Hospital course, mention meds given and route, prescriptions, significant lab abnormalities, going to OR and other pertinent info. @ -[Discharged Undiagnosed new problem with uncertain prognosis? @ -[No] Drug Therapy requiring intensive monitoring for toxicity (Heparin, Nitro, Insulin, Cardizem)? @ -[No] Were any procedures done? @ -[No] Diagnosis/symptom? @ -Acute abdominal pain Acute, or Chronic, or Acute on Chronic? @ -[default] Uncomplicated (without systemic symptoms) or Complicated (systemic symptoms)? @ -[Uncomplicated Side effects of treatment? @ -[No] Exacerbation, Progression, or Severe Exacerbation? @ -[No] Poses a threat to life or bodily function? How? (Chest pain, USA, MS, pneumonia, PE, COPD, DKA, ARF, appy, cholecystitis, CVA, Diverticulitis, Homicidal, Suicidal, threat to staff... and all critical care pts) @ -[No] (Donal Carpio) - Lab Data Lab Results 11/23/22 11/23/22 11/23/22 Range/Units 22:51 22:51 22:51 WBC 5.0 (3.8-10.6) k/uL RBC 4.06 (3.80-5.40) m/uL Hgb 11.2 L (11.4-16.0) gm/dL Hct 35.6 (34.0-46.0) % MCV 87.8 (80.0-100.0) fL MCH 27.7 (25.0-35.0) pg MCHC 31.5 (31.0-37.0) g/dL RDW 13.1 (11.5-15.5) % Plt Count 192 (150-450) k/uL MPV 7.6 Neutrophils % 59 % Lymphocytes % 33 % Monocytes % 5 % Eosinophils % 1 % Basophils % 0 % Neutrophils # 2.9 (1.3-7.7) k/uL Lymphocytes # 1.7 (1.0-4.8) k/uL Monocytes # 0.2 (0-1.0) k/uL Eosinophils # 0.0 (0-0.7) k/uL Basophils # 0.0 (0-0.2) k/uL Sodium 141 (137-145) mmol/L Potassium 4.3 (3.5-5.1) mmol/L Chloride 101 (98-107) mmol/L Carbon Dioxide 29 (22-30) mmol/L Anion Gap 11 mmol/L BUN 15 (7-17) mg/dL Creatinine 0.71 (0.52-1.04) mg/dL Est GFR (CKD-EPI)AfAm >90 (>60 ml/min/1.73 sqM) Est GFR (CKD-EPI)NonAf >90 (>60 ml/min/1.73 sqM) Glucose 101 H (74-99) mg/dL Calcium 9.8 (8.4-10.2) mg/dL Total Bilirubin 0.6 (0.2-1.3) mg/dL AST 29 (14-36) U/L ALT 27 (4-34) U/L Alkaline Phosphatase 140 H (38-126) U/L C-Reactive Protein 1.1 H (<1.0) mg/dL Total Protein 7.7 (6.3-8.2) g/dL Albumin 4.6 (3.5-5.0) g/dL Lipase 33 (23-300) U/L Urine Color Yellow Urine Appearance Clear (Clear) Urine pH 7.0 (5.0-8.0) Ur Specific [place] 1.017 (1.001-1.035) Urine Protein Negative (Negative) Urine Glucose (UA) Negative (Negative) Urine Ketones Negative (Negative) Urine Blood Negative (Negative) Urine Nitrite Negative (Negative) Urine Bilirubin Negative (Negative) Urine Urobilinogen 3.0 (<2.0) mg/dL Ur Leukocyte Esterase Negative (Negative) Disposition <Annalisa Leiva - Last Filed: 11/23/22 22:23> Is patient prescribed a controlled substance at d/c from ED?: No <Donal Carpio - Last Filed: 12/04/22 10:08> Clinical Impression: Abdominal pain Disposition: HOME SELF-CARE Condition: Fair Instructions (If sedation given, give patient instructions): Abdominal Pain (ED) Referrals: Mario Sellers MD [Primary Care Provider] - 1-2 days Lauryn Buckley MD [STAFF PHYSICIAN] - 1-2 days
[2022-11-23] MEDS ORDERED: ONDANSETRON 4 MG/2 ML VIAL IVP STA (22:44)
[2022-11-23] MEDS ORDERED: KETOROLAC 15 MG/ML 1 ML VIAL IVP STA (22:44)
[2022-11-23] MEDS ORDERED: SODIUM CHLORIDE 0.9% 1,000 ML IV ONE (22:45)
[2022-11-23 23:11] LABS: Basophils % (A) 0 %; Eosinophils % (A) 1 %; HCT 35.6 % (34.0-46.0); HGB 11.2 gm/dL (11.4-16.0); Lymphocytes # (A) 1.7 k/uL (1.0-4.8); Lymphocytes % (A) 33 %; MCH 27.7 pg (25.0-35.0); MCHC 31.5 g/dL (31.0-37.0); MCV 87.8 fL (80.0-100.0); Mean Platelet Volume 7.6; Monocytes # (A) 0.2 k/uL (0-1.0); Monocytes % (A) 5 %; Neutrophils # (A) 2.9 k/uL (1.3-7.7); Neutrophils % (A) 59 %; Platelet Count 192 k/uL (150-450); RBC 4.06 m/uL (3.80-5.40); RDW 13.1 % (11.5-15.5)
[2022-11-23 23:21] LABS: ALT 27 U/L (4-34); AST 29 U/L (14-36); African American GFR (CKD) >90 (>60 ml/min/1.73 sqM); Albumin 4.6 g/dL (3.5-5.0); Alkaline Phosphatase 140 U/L (38-126); Anion Gap 11 mmol/L; Blood Urea Nitrogen 15 mg/dL (7-17); C Reactive Protein 1.1 mg/dL (<1.0); Calcium 9.8 mg/dL (8.4-10.2); Carbon Dioxide 29 mmol/L (22-30); Chloride 101 mmol/L (98-107); Glucose 101 mg/dL (74-99); Lipase 33 U/L (23-300); Non-African American GFR(CKD) >90 (>60 ml/min/1.73 sqM); Potassium 4.3 mmol/L (3.5-5.1); Sodium 141 mmol/L (137-145); Total Bilirubin 0.6 mg/dL (0.2-1.3); Total Protein 7.7 g/dL (6.3-8.2)
[2022-11-23 23:22] LABS: Appearance,Urine Clear (Clear); Bilirubin,Urine Negative (Negative); Blood,Urine Negative (Negative); Color,Urine Yellow; Glucose,Urine (UA) Negative (Negative); Ketones,Urine Negative (Negative); Leukocyte Esterase,Urine Negative (Negative); Nitrite,Urine Negative (Negative); Protein,Urine Negative (Negative); Specific Gravity,Urine 1.017 (1.001-1.035)
[2022-11-24] MEDS ORDERED: MORPHINE SULFATE 4 MG/ML SYRINGE IV STA ×2 (00:30→06:41)
--- NOTE | 2022-11-24 05:02 | CT ---
EXAM: CT Abdomen and Pelvis Without Intravenous Contrast CLINICAL HISTORY: ITS.REASON CT Reason: RLQ pain TECHNIQUE: Axial computed tomography images of the abdomen and pelvis without intravenous contrast. CTDI is 13.8 mGy and DLP is 781.9 mGy-cm. This CT exam was performed using one or more of the following dose reduction techniques: automated exposure control, adjustment of the mA and/or kV according to patient size, and/or use of iterative reconstruction technique. COMPARISON: No relevant prior studies available. FINDINGS: Limitations: Limited evaluation in the absence of contrast. Lung bases: Unremarkable. No mass. No consolidation. ABDOMEN: Liver: Unremarkable. Gallbladder and bile ducts: Cholecystectomy changes. No ductal dilation. Pancreas: Unremarkable. No ductal dilation. Spleen: Unremarkable. No splenomegaly. Adrenals: Unremarkable. No mass. Kidneys and ureters: No evidence of obstructive renal calculi or signs of collecting system dilatation. Nonobstructive 2 mm calculi within the kidneys bilaterally. Stomach and bowel: No evidence of bowel obstruction. Submucosal colonic fat deposition, most prominent within the cecum and ascending colon. Findings may relate to sequela of chronic inflammation. Enlarged body habitus, amongst other etiologies, also possible. PELVIS: Appendix: Normal appendix. Bladder: Unremarkable. No stones. Reproductive: Tubal ligation clip within the left hemipelvis. No evidence of right tubal ligation clip. Consider correlation with surgical history. ABDOMEN and PELVIS: Intraperitoneal space: Unremarkable. No free air. No significant fluid collection. Bones/joints: No acute fracture. No dislocation. Soft tissues: Suspected ventral hernia mesh noted along the anterior abdomen. Vasculature: Unremarkable. No abdominal aortic aneurysm. Lymph nodes: Unremarkable. No enlarged lymph nodes. IMPRESSION: 1. Limited evaluation in the absence of contrast. 2. No evidence of obstructive renal calculi or signs of collecting system dilatation. 3. Nonobstructive 2 mm calculi within the kidneys bilaterally. 4. Tubal ligation clip within the left hemipelvis. No evidence of right tubal ligation clip. Consider correlation with surgical history. 5. No other acute findings. 6. Incidental findings as described.
[2022-11-24] MEDS ORDERED: ONDANSETRON 4 MG/2 ML VIAL IVP STA (05:36)
[2022-11-24 06:33] VITALS: BP 110/67; PULSE 79; RESP 16
== END 2022-11-24 07:09 | disposition home or self-care (01) ==
LOC: EC 18:33
DX: N20.0 Calculus of kidney (principal); R10.31 Right lower quadrant pain; K21.9 Gastro-esophageal reflux disease without esophagitis; F41.9 Anxiety disorder, unspecified; F32.A Depression, unspecified; Z79.899 Other long term (current) drug therapy; Z91.09 Other allergy status, other than to drugs and biological substances; Z88.6 Allergy status to analgesic agent; Z88.0 Allergy status to penicillin; Z88.2 Allergy status to sulfonamides; Z88.8 Allergy status to other drugs, medicaments and biological substances; Z88.1 Allergy status to other antibiotic agents
CPT/HCPCS: 36415; 80053; 83690; 85025; 86140; 81003; 74176; 99284; 96374; 96375 ×2; 96376 ×2; 96361; J2270; J2405 ×2; J1885

== ENCOUNTER 2022-12-21 12:08 | Emergency (ER) | payer OTHER ==
[2022-12-21 12:57] VITALS: RESP 18
[2022-12-21 13:07] VITALS: TEMP 98.5
[2022-12-21 13:46] LABS: Appearance,Urine Clear (Clear); Bilirubin,Urine 2+ (Negative); Blood,Urine Negative (Negative); Calcium Oxalate Crystals,Urine Occasional /hpf; Color,Urine Dark Brown; Glucose,Urine (UA) Negative (Negative); Ketones,Urine Negative (Negative); Leukocyte Esterase,Urine Negative (Negative); Mucus,Urine Rare /hpf; Nitrite,Urine Positive (Negative); PH, Urine 5.5 (5.0-8.0); Protein,Urine Negative (Negative); RBC,Urine <1 /hpf (0-5); Specific Gravity,Urine 1.019 (1.001-1.035); Squamous Epithelial Cell,Urine <1 /hpf (0-4); WBC,Urine 2 /hpf (0-5)
--- NOTE | 2022-12-21 14:05 | ED ---
Abdominal Pain HPI - General Chief Complaint: Abdominal Pain Stated Complaint: Pelvic pain Time Seen by Provider: 12/21/22 12:29 Source: patient, RN notes reviewed Mode of arrival: ambulatory Limitations: no limitations - History of Present Illness Initial Comments: 32-year-old female presents emergency Department chief complaint of abdominal pain, UTI. Patient states she's having lower abdominal pain, pelvic pain. This is chronic in nature she had a prior hysterectomy. She does complain dysuria. Patient denies any other associated symptoms. - Related Data Home Medications Medication Instructions Recorded Confirmed Omeprazole 20 mg PO HS 03/07/22 10/10/22 Sertraline [Zoloft] 25 mg PO HS 09/12/22 10/10/22 Acetaminophen Tab [Tylenol] 650 mg PO Q6H PRN 09/23/22 10/10/22 Ibuprofen [Motrin Ib] 800 mg PO TID PRN 09/23/22 10/10/22 Previous Rx's Medication Instructions Recorded Nitrofurantoin Monohyd/M-Cryst 100 mg PO Q12HR #10 cap 12/21/22 [Macrobid] Allergies Allergy/AdvReac Type Severity Reaction Status Date / Time adhesive tape Allergy Rash/Hives Verified 12/21/22 12:18 aloe vera Allergy Rash/Hives Verified 12/21/22 12:18 azithromycin Allergy Rash/Hives Verified 12/21/22 12:18 cephalexin Allergy Rash/Hives Verified 12/21/22 12:18 metronidazole [From Flagyl] Allergy Rash/Hives Verified 12/21/22 12:18 Penicillins Allergy Rash/Hives Verified 12/21/22 12:18 sulfamethoxazole Allergy Rash/Hives Verified 12/21/22 12:18 [From Bactrim] trimethoprim [From Bactrim] Allergy Rash/Hives Verified 12/21/22 12:18 alprazolam [From Xanax] AdvReac MAKES Verified 12/21/22 12:18 PARANOID dicyclomine [From Bentyl] AdvReac constipatio Verified 12/21/22 12:18 n Review of Systems ROS Statement: Those systems with pertinent positive or pertinent negative responses have been documented in the HPI. ROS Other: All systems not noted in ROS Statement are negative. Past Medical History Past Medical History: Blood Disorder, GERD/Reflux Additional Past Medical History / Comment(s): Endometriosis, polycystic ovarian syndrome. IRON DEFICIENCY ANEMIA. Stomach Ulcer. ovarian cyst History of Any Multi-Drug Resistant Organisms: None Reported Past Surgical History: Ablation, Section, Cholecystectomy, Hernia Repair, Hysterectomy, Tubal Ligation, Uterine Ablation Additional Past Surgical History / Comment(s): Laparoscopy X2, Section X3. Right ovary and right tube removed - 2019. cyst removed from chest. AUG 2020 - ADHESION REMOVAL FROM PAST . Vaginal. pelvic biopsy 05/11. PCOS Past Anesthesia/Blood Transfusion Reactions: No Reported Reaction Past Psychological History: Anxiety, Depression Smoking Status: Never smoker Past Alcohol Use History: Rare Past Drug Use History: None Reported - Past Family History Mother Family Medical History: Hyperlipidemia Additional Family Medical History / Comment(s): Depression and anxiety. General Exam Limitations: no limitations General appearance: alert, in no apparent distress Head exam: Present: atraumatic, normocephalic, normal inspection ENT exam: Present: normal exam, normal oropharynx, mucous membranes moist Neck exam: Present: normal inspection, full ROM. Absent: tenderness, meningismus, lymphadenopathy Respiratory exam: Present: normal lung sounds bilaterally. Absent: respiratory distress, wheezes, rales, rhonchi, stridor Cardiovascular Exam: Present: regular rate, normal rhythm, normal heart sounds. Absent: systolic murmur, diastolic murmur, rubs, gallop, clicks GI/Abdominal exam: Present: soft, normal bowel sounds. Absent: distended, tenderness, guarding, rebound, rigid Course Vital Signs 12/21/22 12/21/22 12/21/22 12:16 12:53 14:11 Temperature 98.2 F 98.5 F Pulse Rate 102 H 101 H Respiratory 20 18 18 Rate Blood Pressure 134/82 136/94 132/90 O2 Sat by Pulse 96 Oximetry Medical Decision Making - Medical Decision Making Was pt. sent in by a medical professional or institution (, PA, FUNERAL DIRECTOR AND EMBALMER, urgent care, hospital, or [place] health care facility...) When possible be specific @ -No Did you speak to anyone other than the patient for history (EMS, parent, family, police, friend...)? What history was obtained from this source @ -No Did you review nursing and triage notes (agree or disagree)? Why? @ -I reviewed and agree with nursing and triage notes Were old charts reviewed (outside hosp., previous admission, EMS record, old EKG, old radiological studies, urgent care reports/EKG's, [place] health care facility records)? Report findings @ -Reviewed prior laboratory studies Differential Diagnosis (chest pain, altered mental status, abdominal pain women, abdominal pain men, vaginal bleeding, weakness, fever, dyspnea, syncope, headache, dizziness, GI bleed, back pain, seizure, CVA, palpatations, mental health, musculoskeletal)? @ -Differential Abdominal Pain Women: Appendicitis, Cholecystitis, diverticulosis, ischemic bowel, pancreatitis, hepatitis, UTI, gastroenteritis, AAA, incarcerated hernia, bowel obstruction, constipation, inflammatory bowel, hepatitis, peptic ulcer disease, splenic infarction, perforated viscus, vulvitis, ovarian torsion, PID, kidney stone, placenta abruption, this is not meant to be an all-inclusive liste EKG interpreted by me (3pts min.). @ -None X-rays interpreted by me (1pt min.). @ -None done CT interpreted by me (1pt min.). @ -None done U/S interpreted by me (1pt. min.). @ -None done What testing was considered but not performed or refused? (CT, X-rays, U/S, labs)? Why? @ -None What meds were considered but not given or refused? Why? @ -None Did you discuss the management of the patient with other professionals (professionals i.e. , PA, FUNERAL DIRECTOR AND EMBALMER, lab, RT, psych nurse, social welfare administrator, customer success advocate, teacher, peace officer, case assistant)? Give summary @ -No Was smoking cessation discussed for >3mins.? @ -No Was critical care preformed (if so, how long)? @ -No Were there social determinants of health that impacted care today? How? (Homelessness, low income, unemployed, alcoholism, drug addiction, transportation, low edu. Level, literacy, decrease access to med. care, [facility]ci, rehab)? @ -No Was there de-escalation of care discussed even if they declined (Discuss DNR or withdrawal of care, Hospice)? DNR status @ -No What co-morbidities impacted this encounter? (DM, HTN, Smoking, COPD, CAD, Ca ncer, CVA, ARF, Chemo, Hep., AIDS, mental health diagnosis, sleep apnea, morbid obesity)? @ -None Was patient admitted / discharged? Hospital course, mention meds given and route, prescriptions, significant lab abnormalities, going to OR and other pertinent info. @ -Discharge patient has chronic abdominal pain patient does have nitro positi ve urinalysis. Patient was discharged on oral antibiotics. Return parameters were discussed. Undiagnosed new problem with uncertain prognosis? @ -No Drug Therapy requiring intensive monitoring for toxicity (Heparin, Nitro, Insulin, Cardizem)? @ -No Were any procedures done? @ -No Diagnosis/symptom? @ -UTI Acute, or Chronic, or Acute on Chronic? @ -Acute Uncomplicated (without systemic symptoms) or Complicated (systemic symptoms)? @ -, Uncomplicated Side effects of treatment? @ -No Exacerbation, Progression, or Severe Exacerbation? @ -No Poses a threat to life or bodily function? How? (Chest pain, [place], [place], pneumonia, PE, COPD, DKA, ARF, appy, cholecystitis, CVA, Diverticulitis, Homicidal, Suicidal, threat to staff... and all critical care pts) @ -No - Lab Data Lab Results 12/21/22 Range/Units 12:58 Urine Color Dark Brown Urine Appearance Clear (Clear) Urine pH 5.5 (5.0-8.0) Ur Specific [place] 1.019 (1.001-1.035) Urine Protein Negative (Negative) Urine Glucose (UA) Negative (Negative) Urine Ketones Negative (Negative) Urine Blood Negative (Negative) Urine Nitrite Positive H (Negative) Urine Bilirubin 2+ H (Negative) Urine Urobilinogen 4.0 (<2.0) mg/dL Ur Leukocyte Esterase Negative (Negative) Urine RBC <1 (0-5) /hpf Urine WBC 2 (0-5) /hpf Ur Squamous Epith Cells <1 (0-4) /hpf Calcium Oxalate Crystal Occasional H (None) /hpf Urine Mucus Rare H (None) /hpf Disposition Clinical Impression: Abdominal pain, UTI (urinary tract infection) Disposition: HOME SELF-CARE Condition: Stable Instructions (If sedation given, give patient instructions): Abdominal Pain (ED) Additional Instructions: Please return to the Emergency Department if symptoms worsen or any other concerns. Prescriptions: Nitrofurantoin Monohyd/M-Cryst [Macrobid] 100 mg PO Q12HR #10 cap Is patient prescribed a controlled substance at d/c from ED?: No Referrals: Mario Sellers MD [Primary Care Provider] - 1-2 days Time of Disposition: 14:05
[2022-12-21 14:12] VITALS: BP 132/90; PULSE 101
== END 2022-12-21 14:12 | disposition home or self-care (01) ==
LOC: EC 12:08
DX: N39.0 Urinary tract infection, site not specified (principal); K21.9 Gastro-esophageal reflux disease without esophagitis; F41.9 Anxiety disorder, unspecified; F32.A Depression, unspecified; Z79.899 Other long term (current) drug therapy; Z91.09 Other allergy status, other than to drugs and biological substances; Z88.6 Allergy status to analgesic agent; Z88.2 Allergy status to sulfonamides; Z88.8 Allergy status to other drugs, medicaments and biological substances; Z88.1 Allergy status to other antibiotic agents; Z88.0 Allergy status to penicillin
CPT/HCPCS: 81001; 99284

== ENCOUNTER 2022-12-28 22:03 | Emergency (ER) | payer OTHER ==
[2022-12-28 22:07] VITALS: RESP 20
[2022-12-28] MEDS ORDERED: SODIUM CHLORIDE 0.9% 1,000 ML IV STA (23:37)
[2022-12-28] MEDS ORDERED: KETOROLAC 15 MG/ML 1 ML VIAL IVP STA (23:37)
[2022-12-28] MEDS ORDERED: HYDROmorphone 1 MG/ML 1 ML SYRINGE IVP STA (23:38)
[2022-12-28] MEDS ORDERED: ONDANSETRON 4 MG/2 ML VIAL IVP STA (23:39)
[2022-12-29 00:25] LABS: Basophils % (A) 0 %; Eosinophils % (A) 1 %; HCT 31.9 % (34.0-46.0); HGB 10.7 gm/dL (11.4-16.0); Lymphocytes # (A) 1.4 k/uL (1.0-4.8); Lymphocytes % (A) 29 %; MCH 30.2 pg (25.0-35.0); MCHC 33.7 g/dL (31.0-37.0); MCV 89.7 fL (80.0-100.0); Mean Platelet Volume 7.7; Monocytes # (A) 0.2 k/uL (0-1.0); Monocytes % (A) 4 %; Neutrophils # (A) 3.1 k/uL (1.3-7.7); Neutrophils % (A) 65 %; Platelet Count 180 k/uL (150-450); RBC 3.55 m/uL (3.80-5.40); RDW 13.7 % (11.5-15.5); WBC 4.8 k/uL (3.8-10.6)
[2022-12-29 00:35] LABS: ALT 28 U/L (4-34); AST 27 U/L (14-36); African American GFR (CKD) >90 (>60 ml/min/1.73 sqM); Albumin 3.9 g/dL (3.5-5.0); Alkaline Phosphatase 99 U/L (38-126); Amylase 55 U/L (30-110); Anion Gap 7 mmol/L; Blood Urea Nitrogen 15 mg/dL (7-17); Calcium 9.3 mg/dL (8.4-10.2); Carbon Dioxide 29 mmol/L (22-30); Chloride 104 mmol/L (98-107); Glucose 105 mg/dL (74-99); Lipase 49 U/L (23-300); Non-African American GFR(CKD) >90 (>60 ml/min/1.73 sqM); Potassium 4.1 mmol/L (3.5-5.1); Sodium 140 mmol/L (137-145); Total Bilirubin 0.6 mg/dL (0.2-1.3); Total Protein 6.5 g/dL (6.3-8.2)
--- NOTE | 2022-12-29 00:44 | ED ---
Abdominal Pain HPI - General Chief Complaint: Abdominal Pain Stated Complaint: Abdominal Pain, Lower back Pain Time Seen by Provider: 12/28/22 23:30 Source: patient, RN notes reviewed Mode of arrival: ambulatory Limitations: no limitations - History of Present Illness Initial Comments: This is a 32-year-old female who presents to the emergency department for abdominal pain and left flank pain. Patient states that she was here 8 days ago for similar symptoms. She was diagnosed with a UTI and and started on Macrobid. She finished the medication as prescribed. States that she continues to have pain, but it is in the left mid back and most of her abdomen. However, the burning with urination has since resolved. Reports associated nausea. She has taken Tylenol, Toradol, and Zofran for her symptoms, which has not been effective. She is very well-known to this emergency department for recurrent visits related to abdominal pain and has had multiple workups including blood work and CT scans revealing no significant findings. Denies any fevers, chills, sore throat, cough, dyspnea, chest pain, palpitations, diarrhea, or headaches. MD Complaint: abdominal pain, flank pain - Related Data Home Medications Medication Instructions Recorded Confirmed Omeprazole 20 mg PO HS 03/07/22 10/10/22 Sertraline [Zoloft] 25 mg PO HS 09/12/22 10/10/22 Acetaminophen Tab [Tylenol] 650 mg PO Q6H PRN 09/23/22 10/10/22 Ibuprofen [Motrin Ib] 800 mg PO TID PRN 09/23/22 10/10/22 Previous Rx's Medication Instructions Recorded Nitrofurantoin Monohyd/M-Cryst 100 mg PO Q12HR #10 cap 12/21/22 [Macrobid] Allergies Allergy/AdvReac Type Severity Reaction Status Date / Time adhesive tape Allergy Rash/Hives Verified 12/28/22 22:07 aloe vera Allergy Rash/Hives Verified 12/28/22 22:07 azithromycin Allergy Rash/Hives Verified 12/28/22 22:07 cephalexin Allergy Rash/Hives Verified 12/28/22 22:07 metronidazole [From Flagyl] Allergy Rash/Hives Verified 12/28/22 22:07 Penicillins Allergy Rash/Hives Verified 12/28/22 22:07 sulfamethoxazole Allergy Rash/Hives Verified 12/28/22 22:07 [From Bactrim] trimethoprim [From Bactrim] Allergy Rash/Hives Verified 12/28/22 22:07 alprazolam [From Xanax] AdvReac MAKES Verified 12/28/22 22:07 PARANOID dicyclomine [From Bentyl] AdvReac constipatio Verified 12/28/22 22:07 n Review of Systems ROS Statement: Those systems with pertinent positive or pertinent negative responses have been documented in the HPI. ROS Other: All systems not noted in ROS Statement are negative. Past Medical History Past Medical History: Blood Disorder, GERD/Reflux Additional Past Medical History / Comment(s): Endometriosis, polycystic ovarian syndrome. IRON DEFICIENCY ANEMIA. Stomach Ulcer. ovarian cyst History of Any Multi-Drug Resistant Organisms: None Reported Past Surgical History: Ablation, Section, Cholecystectomy, Hernia Repair, Hysterectomy, Tubal Ligation, Uterine Ablation Additional Past Surgical History / Comment(s): Laparoscopy X2, Section X3. Right ovary and right tube removed - 2019. cyst removed from chest. AUG 2020 - ADHESION REMOVAL FROM PAST . Vaginal. pelvic biopsy 05/11. PCOS Past Anesthesia/Blood Transfusion Reactions: No Reported Reaction Past Psychological History: Anxiety, Depression Smoking Status: Never smoker Past Alcohol Use History: Rare Past Drug Use History: None Reported - Past Family History Mother Family Medical History: Hyperlipidemia Additional Family Medical History / Comment(s): Depression and anxiety. General Exam Limitations: no limitations General appearance: alert, in no apparent distress Head exam: Present: atraumatic, normocephalic, normal inspection Respiratory exam: Present: normal lung sounds bilaterally. Absent: respiratory distress, wheezes, rales, rhonchi, stridor Cardiovascular Exam: Present: regular rate, normal rhythm, normal heart sounds. Absent: systolic murmur, diastolic murmur, rubs, gallop, clicks GI/Abdominal exam: Present: soft, tenderness (Diffuse), normal bowel sounds. Absent: distended Back exam: Present: CVA tenderness (L) Neurological exam: Present: alert, oriented X3, CN II-XII intact Psychiatric exam: Present: normal affect, normal mood Skin exam: Present: warm, dry, intact, normal color. Absent: rash Course Vital Signs 12/28/22 12/29/22 22:05 03:07 Temperature 98.2 F 98.0 F Pulse Rate 103 H 84 Respiratory 20 20 Rate Blood Pressure 145/100 105/70 O2 Sat by Pulse 100 96 Oximetry Medical Decision Making - Medical Decision Making This is a 32-year-old female who presents to the emergency department for left flank pain and abdominal pain. Was pt. sent in by a medical professional or institution? @ -No Did you speak to anyone other than the patient for history? @ -No Did you review nursing and triage notes? @ -Yes, and I agree, it is accurate with regards to the patient's symptoms. Were old charts reviewed? @ -No Differential Diagnosis? @ -Differential Abdominal Pain Women: Appendicitis, Cholecystitis, diverticulosis, ischemic bowel, pancreatitis, hepatitis, UTI, gastroenteritis, AAA, incarcerated hernia, bowel obstruction, constipation, inflammatory bowel, hepatitis, peptic ulcer disease, splenic infarction, perforated viscus, vulvitis, ovarian torsion, PID, kidney stone, placenta abruption, this is not meant to be an all-inclusive list EKG interpreted by me (3pts min.)? @ -Not obtained X-rays interpreted by me (1pt min.)? @ -Not obtained CT interpreted by me (1pt min.)? @ -Not obtained U/S interpreted by me (1pt. min.)? @ -Not obtained What testing was considered but not performed? (CT, X-rays, U/S, labs)? Why? @ -None What meds were considered but not given? Why? @ -None Did you discuss the management of the patient with other professionals? @ -No Did you reconcile home meds? @ -No Was smoking cessation discussed for >3mins.? @ -No Was critical care preformed (if so, how long)? @ -No Were there social determinants of health that impacted care today? How? (Homelessness, low income, unemployed, alcoholism, drug addiction, transportation, low edu. Level, literacy, decrease access to med. care, detention, rehab)? @ -No Was there de-escalation of care discussed even if they declined? (Discuss DNR or withdrawal of care, Hospice)? @ -No What co-morbidities impacted this encounter? (DM, HTN, Smoking, COPD, CAD, Cancer, CVA, Hep., AIDS, mental health diagnosis, sleep apnea, morbid obesity)? @ -Morbid obesity, GERD Was patient admitted / discharged? @ -Discharged. Lab work obtained and found to be nonactionable. Urinalysis negative for any signs of a residual UTI. There is no indication for imaging at this time in light of her normal lab work. Patient has had 30 CT scans at our facility, on top of imaging she has had at other facilities. Discussed with the patient the risks for repetitive radiation exposure and she expresses understa nding and is agreeable to avoiding any imaging at this time. The patient's symptoms were controlled the emergency department. Symptoms most consistent with the patient's chronic pain. Advised she continue to alternate with ibuprofen and Tylenol at home and use the Zofran she has as needed for add itional nausea. She'll otherwise follow up with her primary care provider for reevaluation of symptoms. Undiagnosed new problem with uncertain prognosis? @ -None Drug Therapy requiring intensive monitoring for toxicity (Heparin, Nitro, Insulin, Cardizem)? @ -None Were any procedures done? @ -None Diagnosis/symptom? @ -Abdominal pain Acute, or Chronic, or Acute on Chronic? @ -Chronic Uncomplicated (without systemic symptoms) or Complicated (systemic symptoms)? @ -Uncomplicated Side effects of treatment? @ -None Exacerbation, Progression, or Severe Exacerbation] @ -Exacerbation Poses a threat to life or bodily function? @ -No Return precautions reviewed in depth, the patient is instructed to return to the emergency department with any new, worsening, or concerning symptoms. Patient verbalized understanding. This case was discussed in detail with the attending ED physician, Dr. Maciel. Presentation, findings, and treatment plan discussed in detail as well. - Lab Data Result diagrams: 12/29/22 00:15 12/29/22 00:15 Lab Results 12/29/22 12/29/22 12/29/22 Range/Units 00:15 00:15 00:15 WBC 4.8 (3.8-10.6) k/uL RBC 3.55 L (3.80-5.40) m/uL Hgb 10.7 L (11.4-16.0) gm/dL Hct 31.9 L (34.0-46.0) % MCV 89.7 (80.0-100.0) fL MCH 30.2 (25.0-35.0) pg MCHC 33.7 (31.0-37.0) g/dL RDW 13.7 (11.5-15.5) % Plt Count 180 (150-450) k/uL MPV 7.7 Neutrophils % 65 % Lymphocytes % 29 % Monocytes % 4 % Eosinophils % 1 % Basophils % 0 % Neutrophils # 3.1 (1.3-7.7) k/uL Lymphocytes # 1.4 (1.0-4.8) k/uL Monocytes # 0.2 (0-1.0) k/uL Eosinophils # 0.0 (0-0.7) k/uL Basophils # 0.0 (0-0.2) k/uL Sodium 140 (137-145) mmol/L Potassium 4.1 (3.5-5.1) mmol/L Chloride 104 (98-107) mmol/L Carbon Dioxide 29 (22-30) mmol/L Anion Gap 7 mmol/L BUN 15 (7-17) mg/dL Creatinine 0.76 (0.52-1.04) mg/dL Est GFR (CKD-EPI)AfAm >90 (>60 ml/min/1.73 sqM) Est GFR (CKD-EPI)NonAf >90 (>60 ml/min/1.73 sqM) Glucose 105 H (74-99) mg/dL Plasma Lactic Acid [place] 1.1 (0.7-2.0) mmol/L Calcium 9.3 (8.4-10.2) mg/dL Total Bilirubin 0.6 (0.2-1.3) mg/dL AST 27 (14-36) U/L ALT 28 (4-34) U/L Alkaline Phosphatase 99 (38-126) U/L Total Protein 6.5 (6.3-8.2) g/dL Albumin 3.9 (3.5-5.0) g/dL Amylase 55 (30-110) U/L Lipase 49 (23-300) U/L Urine Color Urine Appearance (Clear) Urine pH (5.0-8.0) Ur Specific [place] (1.001-1.035) Urine Protein (Negative) Urine Glucose (UA) (Negative) Urine Ketones (Negative) Urine Blood (Negative) Urine Nitrite (Negative) Urine Bilirubin (Negative) Urine Urobilinogen (<2.0) mg/dL Ur Leukocyte Esterase (Negative) Urine WBC (0-5) /hpf Ur Squamous Epith Cells (0-4) /hpf Amorphous Sediment (None) /hpf Urine Bacteria (None) /hpf 12/29/22 Range/Units 00:15 WBC (3.8-10.6) k/uL RBC (3.80-5.40) m/uL Hgb (11.4-16.0) gm/dL Hct (34.0-46.0) % MCV (80.0-100.0) fL MCH (25.0-35.0) pg MCHC (31.0-37.0) g/dL RDW (11.5-15.5) % Plt Count (150-450) k/uL MPV Neutrophils % % Lymphocytes % % Monocytes % % Eosinophils % % Basophils % % Neutrophils # (1.3-7.7) k/uL Lymphocytes # (1.0-4.8) k/uL Monocytes # (0-1.0) k/uL Eosinophils # (0-0.7) k/uL Basophils # (0-0.2) k/uL Sodium (137-145) mmol/L Potassium (3.5-5.1) mmol/L Chloride (98-107) mmol/L Carbon Dioxide (22-30) mmol/L Anion Gap mmol/L BUN (7-17) mg/dL Creatinine (0.52-1.04) mg/dL Est GFR (CKD-EPI)AfAm (>60 ml/min/1.73 sqM) Est GFR (CKD-EPI)NonAf (>60 ml/min/1.73 sqM) Glucose (74-99) mg/dL Plasma Lactic Acid [place] (0.7-2.0) mmol/L Calcium (8.4-10.2) mg/dL Total Bilirubin (0.2-1.3) mg/dL AST (14-36) U/L ALT (4-34) U/L Alkaline Phosphatase (38-126) U/L Total Protein (6.3-8.2) g/dL Albumin (3.5-5.0) g/dL Amylase (30-110) U/L Lipase (23-300) U/L Urine Color Light Yellow Urine Appearance Cloudy H (Clear) Urine pH 7.5 (5.0-8.0) Ur Specific [place] 1.012 (1.001-1.035) Urine Protein Negative (Negative) Urine Glucose (UA) Negative (Negative) Urine Ketones Negative (Negative) Urine Blood Negative (Negative) Urine Nitrite Negative (Negative) Urine Bilirubin Negative (Negative) Urine Urobilinogen <2.0 (<2.0) mg/dL Ur Leukocyte Esterase Negative (Negative) Urine WBC 1 (0-5) /hpf Ur Squamous Epith Cells <1 (0-4) /hpf Amorphous Sediment Rare H (None) /hpf Urine Bacteria Rare H (None) /hpf Disposition Clinical Impression: Abdominal pain Disposition: HOME SELF-CARE Instructions (If sedation given, give patient instructions): Abdominal Pain (ED) Additional Instructions: Return to the emergency department with any new, worsening, or concerning sym ptoms. Continue to alternate with ibuprofen and Tylenol as needed for pain relief. Take your Zofran as needed for additional nausea. Follow up with your primary care provider in 1-2 days. Is patient prescribed a controlled substance at d/c from ED?: No Referrals: Mario Sellers MD [Primary Care Provider] - 1-2 days
[2022-12-29 01:05] LABS: Amorphous Sediment,Urine Rare /hpf; Appearance,Urine Cloudy (Clear); Bacteria,Urine Rare /hpf; Bilirubin,Urine Negative (Negative); Blood,Urine Negative (Negative); Color,Urine Light Yellow; Glucose,Urine (UA) Negative (Negative); Ketones,Urine Negative (Negative); Leukocyte Esterase,Urine Negative (Negative); Nitrite,Urine Negative (Negative); PH, Urine 7.5 (5.0-8.0); Protein,Urine Negative (Negative); Specific Gravity,Urine 1.012 (1.001-1.035); Squamous Epithelial Cell,Urine <1 /hpf (0-4); Urobilinogen,Urine <2.0 mg/dL (<2.0); WBC,Urine 1 /hpf (0-5)
[2022-12-29] MEDS ORDERED: HYDROmorphone 1 MG/ML 1 ML SYRINGE IVP STA (01:58)
[2022-12-29] MEDS ORDERED: ACET/COD 300 MG/30 MG STARTER PACK 6 TAB BTL PO STA (02:12)
[2022-12-29 03:08] VITALS: BP 105/70; PULSE 84; TEMP 98
== END 2022-12-29 03:36 | disposition home or self-care (01) ==
LOC: EC 22:03
DX: R10.9 Unspecified abdominal pain (principal); K21.9 Gastro-esophageal reflux disease without esophagitis; F41.9 Anxiety disorder, unspecified; F32.A Depression, unspecified; Z79.899 Other long term (current) drug therapy; Z88.0 Allergy status to penicillin; Z88.1 Allergy status to other antibiotic agents; Z88.2 Allergy status to sulfonamides; Z88.8 Allergy status to other drugs, medicaments and biological substances; Z90.49 Acquired absence of other specified parts of digestive tract
CPT/HCPCS: 36415; 80053; 82150; 83605; 83690; 85025; 81001; 99284; 96374; 96375 ×2; 96376; 96361; J2405; J1170; J1885

== ENCOUNTER 2023-01-07 18:56 | Emergency (ER) | payer OTHER ==
[2023-01-07 19:25] VITALS: RESP 18; TEMP 98.4
[2023-01-07] MEDS ORDERED: KETOROLAC 15 MG/ML 1 ML VIAL IVP STA ×2 (21:20→23:48)
[2023-01-07] MEDS ORDERED: ONDANSETRON 4 MG/2 ML VIAL IVP STA (21:20)
[2023-01-07 22:18] LABS: Appearance,Urine Clear (Clear); Basophils % (A) 0 %; Bilirubin,Urine Negative (Negative); Blood,Urine Negative (Negative); Color,Urine Light Yellow; Eosinophils % (A) 1 %; Glucose,Urine (UA) Negative (Negative); HCT 33.8 % (34.0-46.0); HGB 11.3 gm/dL (11.4-16.0); Ketones,Urine Negative (Negative); Leukocyte Esterase,Urine Negative (Negative); Lymphocytes # (A) 1.5 k/uL (1.0-4.8); Lymphocytes % (A) 34 %; MCH 30.4 pg (25.0-35.0); MCHC 33.5 g/dL (31.0-37.0); MCV 90.9 fL (80.0-100.0); Mean Platelet Volume 7.5; Monocytes # (A) 0.2 k/uL (0-1.0); Monocytes % (A) 5 %; Neutrophils # (A) 2.6 k/uL (1.3-7.7); Neutrophils % (A) 59 %; Nitrite,Urine Negative (Negative); PH, Urine 6.5 (5.0-8.0); Platelet Count 196 k/uL (150-450); Protein,Urine Negative (Negative); RBC 3.71 m/uL (3.80-5.40); RDW 13.2 % (11.5-15.5); Specific Gravity,Urine 1.012 (1.001-1.035); Urobilinogen,Urine <2.0 mg/dL (<2.0); WBC 4.5 k/uL (3.8-10.6)
[2023-01-07 22:28] LABS: ALT 18 U/L (4-34); AST 26 U/L (14-36); African American GFR (CKD) >90 (>60 ml/min/1.73 sqM); Albumin 4.2 g/dL (3.5-5.0); Alkaline Phosphatase 101 U/L (38-126); Amylase 66 U/L (30-110); Anion Gap 4 mmol/L; Blood Urea Nitrogen 13 mg/dL (7-17); Calcium 9.5 mg/dL (8.4-10.2); Carbon Dioxide 30 mmol/L (22-30); Chloride 103 mmol/L (98-107); Glucose 90 mg/dL (74-99); Lipase 50 U/L (23-300); Non-African American GFR(CKD) >90 (>60 ml/min/1.73 sqM); Potassium 4.3 mmol/L (3.5-5.1); Sodium 137 mmol/L (137-145); Total Bilirubin 0.7 mg/dL (0.2-1.3)
--- NOTE | 2023-01-07 22:40 | ED ---
General Adult HPI - General Chief complaint: Back Pain/Injury Stated complaint: lower back pain Time Seen by Provider: 01/07/23 21:07 Source: patient, RN notes reviewed Mode of arrival: wheelchair Limitations: no limitations - History of Present Illness Initial comments: 32-year-old female presents emergency department chief complaint of left flank pain. She states that she has been having this pain for quite some time and underwent computed tomography scan at [facility] on Saturday which showed a stone within the kidney. This was present on her prior CT preformed here. She states she has had the same pain in the past. She reports a history of IBS. Denies fever, chills, dysuria, urinary frequency, hematuria. Denies loss of bowel or bladder function, saddle anesthesia. - Related Data Home Medications Medication Instructions Recorded Confirmed Omeprazole 20 mg PO HS 03/07/22 10/10/22 Sertraline [Zoloft] 25 mg PO HS 09/12/22 10/10/22 Acetaminophen Tab [Tylenol] 650 mg PO Q6H PRN 09/23/22 10/10/22 Ibuprofen [Motrin Ib] 800 mg PO TID PRN 09/23/22 10/10/22 Previous Rx's Medication Instructions Recorded Nitrofurantoin Monohyd/M-Cryst 100 mg PO Q12HR #10 cap 12/21/22 [Macrobid] Allergies Allergy/AdvReac Type Severity Reaction Status Date / Time adhesive tape Allergy Rash/Hives Verified 01/07/23 19:25 aloe vera Allergy Rash/Hives Verified 01/07/23 19:25 azithromycin Allergy Rash/Hives Verified 01/07/23 19:25 cephalexin Allergy Rash/Hives Verified 01/07/23 19:25 metronidazole [From Flagyl] Allergy Rash/Hives Verified 01/07/23 19:25 Penicillins Allergy Rash/Hives Verified 01/07/23 19:25 sulfamethoxazole Allergy Rash/Hives Verified 01/07/23 19:25 [From Bactrim] trimethoprim [From Bactrim] Allergy Rash/Hives Verified 01/07/23 19:25 alprazolam [From Xanax] AdvReac MAKES Verified 01/07/23 19:25 PARANOID dicyclomine [From Bentyl] AdvReac constipatio Verified 01/07/23 19:25 n Review of Systems ROS Statement: Those systems with pertinent positive or pertinent negative responses have been documented in the HPI. ROS Other: All systems not noted in ROS Statement are negative. Past Medical History Past Medical History: Blood Disorder, GERD/Reflux Additional Past Medical History / Comment(s): Endometriosis, polycystic ovarian syndrome. IRON DEFICIENCY ANEMIA. Stomach Ulcer. ovarian cyst History of Any Multi-Drug Resistant Organisms: None Reported Past Surgical History: Ablation, Section, Cholecystectomy, Hernia Repair, Hysterectomy, Tubal Ligation, Uterine Ablation Additional Past Surgical History / Comment(s): Laparoscopy X2, Section X3. Right ovary and right tube removed - 2019. cyst removed from chest. AUG 2020 - ADHESION REMOVAL FROM PAST . Vaginal. pelvic biopsy 05/11. PCOS Past Anesthesia/Blood Transfusion Reactions: No Reported Reaction Past Psychological History: Anxiety, Depression Smoking Status: Never smoker Past Alcohol Use History: Rare Past Drug Use History: None Reported - Past Family History Mother Family Medical History: Hyperlipidemia Additional Family Medical History / Comment(s): Depression and anxiety. General Exam Limitations: no limitations General appearance: alert, in no apparent distress Head exam: Present: atraumatic, normocephalic, normal inspection Eye exam: Present: normal appearance, PERRL, EOMI. Absent: scleral icterus, conjunctival injection, periorbital swelling ENT exam: Present: normal exam, mucous membranes moist Neck exam: Present: normal inspection. Absent: tenderness, meningismus, lymphadenopathy Respiratory exam: Present: normal lung sounds bilaterally. Absent: respiratory distress, wheezes, rales, rhonchi, stridor Cardiovascular Exam: Present: regular rate, normal rhythm, normal heart sounds. Absent: systolic murmur, diastolic murmur, rubs, gallop, clicks GI/Abdominal exam: Present: soft, normal bowel sounds. Absent: distended, tenderness, guarding, rebound, rigid Extremities exam: Present: normal inspection, full ROM, normal capillary refill. Absent: tenderness, pedal edema, joint swelling, calf tenderness Back exam: Present: normal inspection. Absent: CVA tenderness (R), CVA tenderness (L) Neurological exam: Present: alert, oriented X3 Psychiatric exam: Present: normal affect, normal mood Skin exam: Present: warm, dry, intact, normal color, other (radial, DP and PT pulses 2+ ). Absent: rash Course Vital Signs 01/07/23 01/07/23 01/08/23 19:23 21:58 00:01 Temperature 98.4 F Pulse Rate 81 68 63 Respiratory 18 18 18 Rate Blood Pressure 120/84 143/98 129/87 O2 Sat by Pulse 98 100 100 Oximetry Medical Decision Making - Medical Decision Making Was pt. sent in by a medical professional or institution (, PA, CISCO NETWORK ENGINEER, urgent care, hospital, or detention...) When possible be specific @ -No Did you speak to anyone other than the patient for history (EMS, parent, family, police, friend...)? What history was obtained from this source @ -No Did you review nursing and triage notes (agree or disagree)? Why? @ -I reviewed and agree with nursing and triage notes Were old charts reviewed (outside hosp., previous admission, EMS record, old EKG, old radiological studies, urgent care reports/EKG's, detention records)? Report findings @ -Prior abdominal CT scans, lab studies, and ED reports were reviewed Differential Diagnosis (chest pain, altered mental status, abdominal pain women, abdominal pain men, vaginal bleeding, weakness, fever, dyspnea, syncope, headache, dizziness, GI bleed, back pain, seizure, CVA, palpatations, mental health, musculoskeletal)? @ -Differential Abdominal Pain Women: Appendicitis, Cholecystitis, diverticulosis, ischemic bowel, pancreatitis, hepatitis, UTI, gastroenteritis, AAA, incarcerated hernia, bowel obstruction, constipation, inflammatory bowel, hepatitis, peptic ulcer disease, splenic infar ction, perforated viscus, vulvitis, ovarian torsion, PID, kidney stone, placenta abruption, this is not meant to be an all-inclusive list EKG interpreted by me (3pts min.). @ -none X-rays interpreted by me (1pt min.). @ -None done CT interpreted by me (1pt min.). @ -None done U/S interpreted by me (1pt. min.). @ -None done What testing was considered but not performed or refused? (CT, X-rays, U/S, labs)? Why? @ -CT abdomen and pelvis was considered but patient has normal labs and had a computed tomography scan done at [facility] on Saturday along with 5 CT scans at our facility over the past 6 months. What meds were considered but not given or refused? Why? @ -None Did you discuss the management of the patient with other professionals (professionals i.e. , ANALI, CISCO NETWORK ENGINEER, lab, RT, psych nurse, social professionals, supervisor livestock yard, teacher, health officer, manager case)? Give summary @ -No Was smoking cessation discussed for >3mins.? @ -No Was critical care preformed (if so, how long)? @ -No Were there social determinants of health that impacted care today? How? (Homelessness, low income, unemployed, alcoholism, drug addiction, t ransportation, low edu. Level, literacy, decrease access to med. care, nursing home, rehab)? @ -No Was there de-escalation of care discussed even if they declined (Discuss DNR or withdrawal of care, Hospice)? DNR status @ -No What co-morbidities impacted this encounter? (DM, HTN, Smoking, COPD, CAD, Cancer, CVA, ARF, Chemo, Hep., AIDS, mental health diagnosis, sleep apnea, morbid obesity)? @ -None Was patient admitted / discharged? Hospital course, mention meds given and route, prescriptions, significant lab abnormalities, going to OR and other pertinent info. @ -Discharged. Patient presented with chief complaint of left flank pain and left-sided abdominal pain. She reports a history of this pain and she underwent a computed tomography scan at [facility] on Saturday. Patient has underwent extensive imaging at our facility over the past year. Her last computed tomography scan in November at our facility showed a 2 mm stone in bilateral kidneys. She was given toradol which improved her pain. CBC showed CBC 4.5, hemoglobin 11.3 which is consistent with prior labs, CMP showed sodium 137, potassium 4.3, chloride 103, creatinine 0.74, lipase 50, UA showed negative protein, negative ketones, negative blood, negative nitrate, negative leukocyte esterase, negative hCG. Discussed with patient the risk of repetitive radiation exposure along with her labs which appear to be within normal limits and she is in agreement with the decision against performing another CT scan. Patient was discharged in stable condition. Case discussed with my attending, Dr. Carpio Undiagnosed new problem with uncertain prognosis? @ -No Drug Therapy requiring intensive monitoring for toxicity (Heparin, Nitro, Insulin, Cardizem)? @ -No Were any procedures done? @ -No Diagnosis/symptom? @ -Abdominal pain Acute, or Chronic, or Acute on Chronic? @ -Chronic Uncomplicated (without systemic symptoms) or Complicated (systemic symptoms)? @ -Uncomplicated Side effects of treatment? @ -No Exacerbation, Progression, or Severe Exacerbation? @ -No Poses a threat to life or bodily function? How? (Chest pain, USA, [place], pneumonia, PE, COPD, DKA, ARF, appy, cholecystitis, CVA, Diverticulitis, Homicidal, Suicidal, threat to staff... and all critical care pts) @ -No - Lab Data Result diagrams: 01/07/23 21:52 01/07/23 21:52 Lab Results 01/07/23 01/07/23 01/07/23 Range/Units 21:52 21:52 21:52 WBC 4.5 (3.8-10.6) k/uL RBC 3.71 L (3.80-5.40) m/uL Hgb 11.3 L (11.4-16.0) gm/dL Hct 33.8 L (34.0-46.0) % MCV 90.9 (80.0-100.0) fL MCH 30.4 (25.0-35.0) pg MCHC 33.5 (31.0-37.0) g/dL RDW 13.2 (11.5-15.5) % Plt Count 196 (150-450) k/uL MPV 7.5 Neutrophils % 59 % Lymphocytes % 34 % Monocytes % 5 % Eosinophils % 1 % Basophils % 0 % Neutrophils # 2.6 (1.3-7.7) k/uL Lymphocytes # 1.5 (1.0-4.8) k/uL Monocytes # 0.2 (0-1.0) k/uL Eosinophils # 0.0 (0-0.7) k/uL Basophils # 0.0 (0-0.2) k/uL Sodium (137-145) mmol/L Potassium (3.5-5.1) mmol/L Chloride (98-107) mmol/L Carbon Dioxide (22-30) mmol/L Anion Gap mmol/L BUN (7-17) mg/dL Creatinine (0.52-1.04) mg/dL Est GFR (CKD-EPI)AfAm (>60 ml/min/1.73 sqM) Est GFR (CKD-EPI)NonAf (>60 ml/min/1.73 sqM) Glucose (74-99) mg/dL Calcium (8.4-10.2) mg/dL Total Bilirubin (0.2-1.3) mg/dL AST (14-36) U/L ALT (4-34) U/L Alkaline Phosphatase (38-126) U/L Total Protein (6.3-8.2) g/dL Albumin (3.5-5.0) g/dL Amylase (30-110) U/L Lipase (23-300) U/L Urine Color Light Yellow Urine Appearance Clear (Clear) Urine pH 6.5 (5.0-8.0) Ur Specific Brooks 1.012 (1.001-1.035) Urine Protein Negative (Negative) Urine Glucose (UA) Negative (Negative) Urine Ketones Negative (Negative) Urine Blood Negative (Negative) Urine Nitrite Negative (Negative) Urine Bilirubin Negative (Negative) Urine Urobilinogen <2.0 (<2.0) mg/dL Ur Leukocyte Esterase Negative (Negative) Urine HCG, Qual Not Detected (Not Detectd) 01/07/23 Range/Units 21:52 WBC (3.8-10.6) k/uL RBC (3.80-5.40) m/uL Hgb (11.4-16.0) gm/dL Hct (34.0-46.0) % MCV (80.0-100.0) fL MCH (25.0-35.0) pg MCHC (31.0-37.0) g/dL RDW (11.5-15.5) % Plt Count (150-450) k/uL MPV Neutrophils % % Lymphocytes % % Monocytes % % Eosinophils % % Basophils % % Neutrophils # (1.3-7.7) k/uL Lymphocytes # (1.0-4.8) k/uL Monocytes # (0-1.0) k/uL Eosinophils # (0-0.7) k/uL Basophils # (0-0.2) k/uL Sodium 137 (137-145) mmol/L Potassium 4.3 (3.5-5.1) mmol/L Chloride 103 (98-107) mmol/L Carbon Dioxide 30 (22-30) mmol/L Anion Gap 4 mmol/L BUN 13 (7-17) mg/dL Creatinine 0.74 (0.52-1.04) mg/dL Est GFR (CKD-EPI)AfAm >90 (>60 ml/min/1.73 sqM) Est GFR (CKD-EPI)NonAf >90 (>60 ml/min/1.73 sqM) Glucose 90 (74-99) mg/dL Calcium 9.5 (8.4-10.2) mg/dL Total Bilirubin 0.7 (0.2-1.3) mg/dL AST 26 (14-36) U/L ALT 18 (4-34) U/L Alkaline Phosphatase 101 (38-126) U/L Total Protein 7.0 (6.3-8.2) g/dL Albumin 4.2 (3.5-5.0) g/dL Amylase 66 (30-110) U/L Lipase 50 (23-300) U/L Urine Color Urine Appearance (Clear) Urine pH (5.0-8.0) Ur Specific Brooks (1.001-1.035) Urine Protein (Negative) Urine Glucose (UA) (Negative) Urine Ketones (Negative) Urine Blood (Negative) Urine Nitrite (Negative) Urine Bilirubin (Negative) Urine Urobilinogen (<2.0) mg/dL Ur Leukocyte Esterase (Negative) Urine HCG, Qual (Not Detectd) Disposition Clinical Impression: Abdominal pain Disposition: HOME SELF-CARE Condition: Stable Instructions (If sedation given, give patient instructions): Abdominal Pain (ED) Additional Instructions: Please return to the emergency department for new or worsening symptoms. Is patient prescribed a controlled substance at d/c from ED?: No Referrals: Mario Sellers MD [Primary Care Provider] - 1-2 days Time of Disposition: 23:49
[2023-01-08 00:03] VITALS: BP 129/87; PULSE 63
== END 2023-01-08 00:06 | disposition home or self-care (01) ==
LOC: EC 18:56
DX: R10.32 Left lower quadrant pain (principal); K21.9 Gastro-esophageal reflux disease without esophagitis; F41.9 Anxiety disorder, unspecified; F32.A Depression, unspecified; Z79.899 Other long term (current) drug therapy; Z88.0 Allergy status to penicillin; Z88.8 Allergy status to other drugs, medicaments and biological substances
CPT/HCPCS: 36415; 80053; 82150; 83690; 85025; 81003; 81025; 99283; 96374; 96375 ×2; J2405; J1885

== ENCOUNTER 2023-02-13 18:20 | Emergency (ER) | payer OTHER ==
[2023-02-13 18:23] VITALS: RESP 18
[2023-02-13] MEDS ORDERED: KETOROLAC 15 MG/ML 1 ML VIAL IVP STA (18:59)
[2023-02-13] MEDS ORDERED: ONDANSETRON 4 MG/2 ML VIAL IVP STA (18:59)
--- NOTE | 2023-02-13 19:01 | ED ---
Abdominal Pain HPI - General Chief Complaint: Abdominal Pain Stated Complaint: pelvic pain Source: patient Mode of arrival: ambulatory Limitations: no limitations - History of Present Illness Initial Comments: 32-year-old female well known to the ED with a past surgical history significant for cholecystectomy and exploratory laparotomy for endometriosis presents to the ED with a chief complaint of abdominal/pelvic pain. Patient states that she has left pelvic pain that is burning in nature and currently an 8/10 in severity. Patient states this started 4 days ago and since onset has worsened in severity. Patient states pain is now so severe that she has started to become nauseous, no vomiting. Denies urinary symptoms. Denies diarrhea. No other complaints. - Related Data Home Medications Medication Instructions Recorded Confirmed Omeprazole 20 mg PO HS 03/07/22 02/13/23 Albuterol Inhaler [Ventolin Hfa 2 puff INHALATION RT-Q6H PRN 02/13/23 02/13/23 Inhaler] Sertraline [Zoloft] 25 mg PO HS 02/13/23 02/13/23 Allergies Allergy/AdvReac Type Severity Reaction Status Date / Time adhesive tape Allergy Rash/Hives Verified 02/13/23 20:53 aloe vera Allergy Rash/Hives Verified 02/13/23 20:53 azithromycin Allergy Rash/Hives Verified 02/13/23 20:53 cephalexin Allergy Rash/Hives Verified 02/13/23 20:53 metronidazole [From Flagyl] Allergy Rash/Hives Verified 02/13/23 20:53 Penicillins Allergy Rash/Hives Verified 02/13/23 20:53 sulfamethoxazole Allergy Rash/Hives Verified 02/13/23 20:53 [From Bactrim] trimethoprim [From Bactrim] Allergy Rash/Hives Verified 02/13/23 20:53 alprazolam [From Xanax] AdvReac MAKES Verified 02/13/23 20:53 PARANOID dicyclomine [From Bentyl] AdvReac constipatio Verified 02/13/23 20:53 n Review of Systems ROS Statement: Those systems with pertinent positive or pertinent negative responses have been documented in the HPI. ROS Other: All systems not noted in ROS Statement are negative. Past Medical History Past Medical History: Blood Disorder, GERD/Reflux Additional Past Medical History / Comment(s): Endometriosis, polycystic ovarian syndrome. IRON DEFICIENCY ANEMIA. Stomach Ulcer. ovarian cyst History of Any Multi-Drug Resistant Organisms: None Reported Past Surgical History: Ablation, Section, Cholecystectomy, Hernia Repair, Hysterectomy, Tubal Ligation, Uterine Ablation Additional Past Surgical History / Comment(s): Laparoscopy X2, Section X3. Right ovary and right tube removed - 2019. cyst removed from chest. AUG 2020 - ADHESION REMOVAL FROM PAST . Vaginal. pelvic biopsy 05/11. PCOS Past Anesthesia/Blood Transfusion Reactions: No Reported Reaction Past Psychological History: Anxiety, Depression Smoking Status: Never smoker Past Alcohol Use History: Rare Past Drug Use History: None Reported - Past Family History Mother Family Medical History: Hyperlipidemia Additional Family Medical History / Comment(s): Depression and anxiety. General Exam Limitations: no limitations General appearance: alert, in no apparent distress ENT exam: Present: mucous membranes moist Respiratory exam: Present: normal lung sounds bilaterally Cardiovascular Exam: Present: regular rate, normal rhythm GI/Abdominal exam: Present: soft, tenderness (Tenderness to palpation of the left lower quadrant. No rebound guarding or rigidity), normal bowel sounds Neurological exam: Present: alert, oriented X3 Skin exam: Present: warm, dry Course Vital Signs 02/13/23 18:21 Temperature 98.5 F Pulse Rate 95 Respiratory 18 Rate Blood Pressure 131/67 O2 Sat by Pulse 97 Oximetry Medical Decision Making - Medical Decision Making Was pt. sent in by a medical professional or institution (ANALI Leroy, [employer] HCM DEVELOPER, urgent care, hospital, or fpc...) When possible be specific @ -No Did you speak to anyone other than the patient for history (EMS, parent, family, police, friend...)? What history was obtained from this source @ -No Did you review nursing and triage notes (agree or disagree)? Why? @ -I reviewed and agree with nursing and triage notes Were old charts reviewed (outside hosp., previous admission, EMS record, old EKG, old radiological studies, urgent care reports/EKG's, fpc records)? Report findings @ -Old charts reviewed showing multiple visits to the ED due to abdominal pain with multiple images of her abdomen. History of cholecystectomy. Differential Diagnosis (chest pain, altered mental status, abdominal pain women, abdominal pain men, vaginal bleeding, weakness, fever, dyspnea, syncope, headache, dizziness, GI bleed, back pain, seizure, CVA, palpatations, mental health, musculoskeletal)? @ -Differential Abdominal Pain Women: Appendicitis, Cholecystitis, diverticulosis, ischemic bowel, pancreatitis, hepatitis, UTI, gastroenteritis, AAA, incarcerated hernia, bowel obstruction, constipation, inflammatory bowel, hepatitis, peptic ulcer disease, splenic infarction, perforated viscus, vulvitis, ovarian torsion, PID, kidney stone, placenta abruption, this is not meant to be an all-inclusive list EKG interpreted by me (3pts min.). @ -None X-rays interpreted by me (1pt min.). @ -None done CT interpreted by me (1pt min.). @ -CT of the abdomen and pelvis showed no acute process U/S interpreted by me (1pt. min.). @ -Ultrasound of the pelvis showed no acute process What testing was considered but not performed or refused? (CT, X-rays, U/S, labs)? Why? @ -None What meds were considered but not given or refused? Why? @ -None Did you discuss the management of the patient with other professionals (professionals i.e. , PA, [employer] HCM DEVELOPER, lab, RT, psych nurse, aids social worker, linux systems engineer, teacher, third officer, rn field case manager)? Give summary @ -No Was smoking cessation discussed for >3mins.? @ -No Was critical care preformed (if so, how long)? @ -No Were there social determinants of health that impacted care today? How? (Homelessness, low income, unemployed, alcoholism, drug addiction, transportation, low edu. Level, literacy, decrease access to med. care, group home, rehab)? @ -No Was there de-escalation of care discussed even if they declined (Discuss DNR or withdrawal of care, Hospice)? DNR status @ -No What co-morbidities impacted this encounter? (DM, HTN, Smoking, COPD, CAD, Can cer, CVA, ARF, Chemo, Hep., AIDS, mental health diagnosis, sleep apnea, morbid obesity)? @ -None Was patient admitted / discharged? Hospital course, mention meds given and route, prescriptions, significant lab abnormalities, going to OR and other pertinent info. @ -Discharge. Laboratory studies unremarkable. Imaging studies showed no evid ence of acute process. Patient will be discharged home. At this time no concern for acute abdomen. Discussed return precautions with patient who verbalizes agreement. Undiagnosed new problem with uncertain prognosis? @ -No Drug Therapy requiring intensive monitoring for toxicity (Heparin, Nitro, Insulin, Cardizem)? @ -No Were any procedures done? @ -No Diagnosis/symptom? @ -Abdominal pain Acute, or Chronic, or Acute on Chronic? @ -Acute on chronic Uncomplicated (without systemic symptoms) or Complicated (systemic symptoms)? @ -Uncomplicated Side effects of treatment? @ -No Exacerbation, Progression, or Severe Exacerbation? @ -No Poses a threat to life or bodily function? How? (Chest pain, USA, [place], pneumonia, PE, COPD, DKA, ARF, appy, cholecystitis, CVA, Diverticulitis, Homicidal, Suicidal, threat to staff... and all critical care pts) @ -No - Lab Data Result diagrams: 02/13/23 18:58 02/13/23 18:58 Lab Results 02/13/23 02/13/23 02/13/23 Range/Units 18:58 18:58 19:00 WBC 4.5 (3.8-10.6) k/uL RBC 3.30 L (3.80-5.40) m/uL Hgb 10.0 L (11.4-16.0) gm/dL Hct 30.0 L (34.0-46.0) % MCV 90.7 (80.0-100.0) fL MCH 30.4 (25.0-35.0) pg MCHC 33.5 (31.0-37.0) g/dL RDW 14.0 (11.5-15.5) % Plt Count 193 (150-450) k/uL MPV 7.8 Neutrophils % 59 % Lymphocytes % 32 % Monocytes % 5 % Eosinophils % 1 % Basophils % 0 % Neutrophils # 2.6 (1.3-7.7) k/uL Lymphocytes # 1.4 (1.0-4.8) k/uL Monocytes # 0.2 (0-1.0) k/uL Eosinophils # 0.1 (0-0.7) k/uL Basophils # 0.0 (0-0.2) k/uL Sodium 139 (137-145) mmol/L Potassium 4.2 (3.5-5.1) mmol/L Chloride 106 (98-107) mmol/L Carbon Dioxide 27 (22-30) mmol/L Anion Gap 6 mmol/L BUN 15 (7-17) mg/dL Creatinine 0.71 (0.52-1.04) mg/dL Est GFR (CKD-EPI)AfAm >90 (>60 ml/min/1.73 sqM) Est GFR (CKD-EPI)NonAf >90 (>60 ml/min/1.73 sqM) Glucose 93 (74-99) mg/dL Calcium 9.3 (8.4-10.2) mg/dL Total Bilirubin 0.6 (0.2-1.3) mg/dL AST 21 (14-36) U/L ALT 15 (4-34) U/L Alkaline Phosphatase 95 (38-126) U/L Total Protein 6.7 (6.3-8.2) g/dL Albumin 3.9 (3.5-5.0) g/dL Amylase 53 (30-110) U/L Lipase 42 (23-300) U/L Urine Color Colorless Urine Appearance Clear (Clear) Urine pH 7.5 (5.0-8.0) Ur Specific Pierson 1.009 (1.001-1.035) Urine Protein Negative (Negative) Urine Glucose (UA) Negative (Negative) Urine Ketones Negative (Negative) Urine Blood Negative (Negative) Urine Nitrite Negative (Negative) Urine Bilirubin Negative (Negative) Urine Urobilinogen <2.0 (<2.0) mg/dL Ur Leukocyte Esterase Negative (Negative) Urine HCG, Qual (Not Detectd) 02/13/23 Range/Units 19:00 WBC (3.8-10.6) k/uL RBC (3.80-5.40) m/uL Hgb (11.4-16.0) gm/dL Hct (34.0-46.0) % MCV (80.0-100.0) fL MCH (25.0-35.0) pg MCHC (31.0-37.0) g/dL RDW (11.5-15.5) % Plt Count (150-450) k/uL MPV Neutrophils % % Lymphocytes % % Monocytes % % Eosinophils % % Basophils % % Neutrophils # (1.3-7.7) k/uL Lymphocytes # (1.0-4.8) k/uL Monocytes # (0-1.0) k/uL Eosinophils # (0-0.7) k/uL Basophils # (0-0.2) k/uL Sodium (137-145) mmol/L Potassium (3.5-5.1) mmol/L Chloride (98-107) mmol/L Carbon Dioxide (22-30) mmol/L Anion Gap mmol/L BUN (7-17) mg/dL Creatinine (0.52-1.04) mg/dL Est GFR (CKD-EPI)AfAm (>60 ml/min/1.73 sqM) Est GFR (CKD-EPI)NonAf (>60 ml/min/1.73 sqM) Glucose (74-99) mg/dL Calcium (8.4-10.2) mg/dL Total Bilirubin (0.2-1.3) mg/dL AST (14-36) U/L ALT (4-34) U/L Alkaline Phosphatase (38-126) U/L Total Protein (6.3-8.2) g/dL Albumin (3.5-5.0) g/dL Amylase (30-110) U/L Lipase (23-300) U/L Urine Color Urine Appearance (Clear) Urine pH (5.0-8.0) Ur Specific Pierson (1.001-1.035) Urine Protein (Negative) Urine Glucose (UA) (Negative) Urine Ketones (Negative) Urine Blood (Negative) Urine Nitrite (Negative) Urine Bilirubin (Negative) Urine Urobilinogen (<2.0) mg/dL Ur Leukocyte Esterase (Negative) Urine HCG, Qual Not Detected (Not Detectd) Disposition Clinical Impression: Abdominal pain Disposition: HOME SELF-CARE Condition: Good Instructions (If sedation given, give patient instructions): Abdominal Pain (ED) Additional Instructions: Please return to the Emergency Department if symptoms worsen or any other concerns. Is patient prescribed a controlled substance at d/c from ED?: No Referrals: Mario Sellers [Primary Care Provider] - 1-2 days Time of Disposition: 23:02
[2023-02-13 19:45] LABS: Appearance,Urine Clear (Clear); Bilirubin,Urine Negative (Negative); Blood,Urine Negative (Negative); Color,Urine Colorless; Glucose,Urine (UA) Negative (Negative); Ketones,Urine Negative (Negative); Leukocyte Esterase,Urine Negative (Negative); Nitrite,Urine Negative (Negative); PH, Urine 7.5 (5.0-8.0); Protein,Urine Negative (Negative); Specific Gravity,Urine 1.009 (1.001-1.035); Urobilinogen,Urine <2.0 mg/dL (<2.0)
[2023-02-13 20:12] LABS: Basophils % (A) 0 %; Eosinophils # (A) 0.1 k/uL (0-0.7); Eosinophils % (A) 1 %; Lymphocytes # (A) 1.4 k/uL (1.0-4.8); Lymphocytes % (A) 32 %; MCH 30.4 pg (25.0-35.0); MCHC 33.5 g/dL (31.0-37.0); MCV 90.7 fL (80.0-100.0); Mean Platelet Volume 7.8; Monocytes # (A) 0.2 k/uL (0-1.0); Monocytes % (A) 5 %; Neutrophils # (A) 2.6 k/uL (1.3-7.7); Neutrophils % (A) 59 %; Platelet Count 193 k/uL (150-450); WBC 4.5 k/uL (3.8-10.6)
[2023-02-13 20:38] LABS: ALT 15 U/L (4-34); AST 21 U/L (14-36); African American GFR (CKD) >90 (>60 ml/min/1.73 sqM); Albumin 3.9 g/dL (3.5-5.0); Alkaline Phosphatase 95 U/L (38-126); Amylase 53 U/L (30-110); Anion Gap 6 mmol/L; Blood Urea Nitrogen 15 mg/dL (7-17); Calcium 9.3 mg/dL (8.4-10.2); Carbon Dioxide 27 mmol/L (22-30); Chloride 106 mmol/L (98-107); Glucose 93 mg/dL (74-99); Lipase 42 U/L (23-300); Non-African American GFR(CKD) >90 (>60 ml/min/1.73 sqM); Potassium 4.2 mmol/L (3.5-5.1); Sodium 139 mmol/L (137-145); Total Bilirubin 0.6 mg/dL (0.2-1.3); Total Protein 6.7 g/dL (6.3-8.2)
--- NOTE | 2023-02-13 21:36 | US ---
EXAMINATION TYPE: US pelvic complete DATE OF EXAM: 02/13/2023 COMPARISON: CT:02/02/23. US: 03/12/22 CLINICAL INDICATION: Female, 32 years old with history of pelvic pain r/o cyst/torsion; Pelvic pain x 4 days. Partial hysterectomy and rt oophorectomy in 2020. Left oophorectomy 03/2022. TECHNIQUE: . Transabdominal sonographic images of the pelvis were acquired. Date of LMP: 2019 EXAM MEASUREMENTS: Uterus: Surgically absent Endometrial Stripe: Surgically absent Right Ovary: Surgically absent Left Ovary: Surgically absent 1. Uterus: Hypoechoic area seen in cervix, probable nabothian cyst Surgically absent 2. Endometrium: Surgically absent 3. Right Ovary: Surgically absent 4. Left Ovary: Surgically absent 5. Bilateral Adnexa: wnl 6. Posterior cul-de-sac: Trace amount of free fluid seen IMPRESSION: 1. Postsurgical pelvic ultrasound. No ultrasound abnormality evident.
[2023-02-13] MEDS ORDERED: ACETAMINOPHEN TAB 325 MG TAB PO STA (21:55)
--- NOTE | 2023-02-13 22:56 | CT ---
EXAMINATION TYPE: CT abdomen pelvis wo con DATE OF EXAM: 02/13/2023 COMPARISON: 02/02/2023 INDICATION: LLQ x 4 days DLP: 815.2 mGycm, Automated exposure control for dose reduction was used. CONTRAST: 0 mL of Isovue 300. Study performed without Oral Contrast TECHNIQUE: Axial images were obtained from above the diaphragm to the pubic rami in the axial plane a t 5 mm thick sections. Reconstructed images are reviewed on the computer in the coronal plane. FINDINGS: Limited CT sections are obtained the lung bases. The lung bases are clear. CT ABDOMEN: Liver: Normal Spleen: Normal Pancreas: Normal Adrenal glands: The adrenal glands are normal. Gallbladder: Surgically absent Kidneys: No masses are evident. No hydronephrosis is present. No cysts are present. There is a pun ctate calcification in the posterior mid right kidney. Series 201 image 38. There is a punctate nonob structing renal stone measuring 0.2 cm in the anterior mid to inferior pole left kidney Aorta: Normal Inferior vena cava: Normal. CT PELVIS: Loops of bowel within the abdomen and pelvis are normal. There are loops of bowel which are incom pletely distended or lack oral contrast limiting their evaluation. Appendix: Normal as visualized. Urinary bladder: Normal. Adjacent to the distal left ureter is a punctate calcification present previ ously. Phlebolith is favored. Nonobstructing distal ureteral stone considered less likely. Example se earnestine 201 image 120. Genitourinary structures: Uterus and adnexa appear normal. Osseous structures: No suspicious lytic or sclerotic lesions. IMPRESSIONS: 1. No suspicious abnormalities account for left lower quadrant pain. 2. Nonobstructing bilateral renal stones.
[2023-02-13 23:13] VITALS: BP 131/79; PULSE 70; TEMP 97.8
== END 2023-02-13 23:16 | disposition home or self-care (01) ==
LOC: EC 18:20
DX: N20.0 Calculus of kidney (principal); K21.9 Gastro-esophageal reflux disease without esophagitis; F41.9 Anxiety disorder, unspecified; F32.A Depression, unspecified; Z88.0 Allergy status to penicillin; Z88.8 Allergy status to other drugs, medicaments and biological substances; Z88.1 Allergy status to other antibiotic agents; Z91.048 Other nonmedicinal substance allergy status; Z79.899 Other long term (current) drug therapy
CPT/HCPCS: 36415; 80053; 82150; 83690; 85025; 81003; 81025; 76857; 74176; 99284; 96374; 96375; J2405; J1885

== ENCOUNTER → 2023-03-14 | Outpatient (CLI) | payer OTHER ==
[~2023-03-14] MED LIST changes: -Acetaminophen-Codeine 300-30mg TAB PO PRN; -BUPIVACAINE (PF) 0.5% 30 ML VIAL SQ ONE; -CLINDAMYCIN 900 MG in DEXTROSE 5% IN WATER 50 ML IVPB ONE; -DEXAMETHASONE SOD PHOSPHATE 10 MG/ML 1 ML VIAL IV ONE; -GENTAMICIN 290 MG in SODIUM CHLORIDE 0.9% 100 ML IVPB ONE; -GLYCOPYRROLATE 0.2 MG/ML 2 ML VIAL ONE; -HYDROcodone/APAP 5-325MG 1 EACH TAB PO ONE; -IBUPROFEN 600 MG TAB PO PRN; +IRON SUCROSE 100 MG in SODIUM CHLORIDE 0.9% 100 ML IVPB ONE; -KETOROLAC 30 MG/ML 1 ML VIAL IVP PRN; -KETOROLAC 30 MG/ML 1 ML VIAL ONE; -LACTATED RINGERS 1,000 ML IV ONE; -LACTATED RINGERS 1,000 ML IV SCH; -LIDOCAINE 1% (10MG/ML) FOR IV START INTRADERMA ONE; -LIDOCAINE 1% INJ 10MG/ML (20 ML MDV) ONE; -METOCLOPRAMIDE 5 MG/ML 2 ML VIAL IVP PRN; -MIDAZOLAM 2 MG/2 ML VIAL IV ONE; -MIDAZOLAM 2 MG/2 ML VIAL ONE; -NEOSTIGMINE 1 MG/ML 10 ML VIAL ONE; -ONDANSETRON 4 MG/2 ML VIAL IVP ONE; -ONDANSETRON 4 MG/2 ML VIAL IVP PRN; -PROPOFOL 10 MG/ML 20 ML VIAL IV ONE; -ROCURONIUM BROMIDE 10 MG/ML 5 ML VIAL IV ONE; -SIMETHICONE 80 MG CHEWABLE PO PRN; +SODIUM CHLORIDE 0.9% 500 ML 500 ML in EMPTY BAG 1 BAG IV PRN; -SUCCINYLCHOLINE CHLORIDE 100 MG/5 ML SYR IV ONE; -diphenhydrAMINE 50 MG/ML 1 ML VIAL IVP PRN; -fentaNYL (PF) 50 MCG/ML 2 ML AMP IV ONE; -fentaNYL (PF) 50 MCG/ML 2 ML AMP ONE
[2023-03-14 11:45] VITALS: BP 113/79; PULSE 67; RESP 16; TEMP 98.2
== END ==
LOC: PROCWHC3 11:28
PROVIDERS: ATTEND Nurse Practitioner
DX: D64.9 Anemia, unspecified (principal)
CPT/HCPCS: 96365

== ENCOUNTER 2023-03-15 21:27 | Emergency (ER) | payer OTHER ==
[2023-03-15 21:31] VITALS: TEMP 98.4
[2023-03-15] MEDS ORDERED: ONDANSETRON 4 MG/2 ML VIAL IVP STA (21:54)
[2023-03-15] MEDS ORDERED: SODIUM CHLORIDE 0.9% 1,000 ML IV STA (21:54)
[2023-03-15] MEDS ORDERED: KETOROLAC 15 MG/ML 1 ML VIAL IVP STA (21:54)
[2023-03-15 22:18] LABS: Basophils % (A) 0 %; Eosinophils % (A) 1 %; HCT 34.1 % (34.0-46.0); HGB 11.6 gm/dL (11.4-16.0); Lymphocytes # (A) 1.8 k/uL (1.0-4.8); Lymphocytes % (A) 35 %; MCH 30.5 pg (25.0-35.0); MCHC 34.1 g/dL (31.0-37.0); MCV 89.6 fL (80.0-100.0); Mean Platelet Volume 8.3; Monocytes # (A) 0.2 k/uL (0-1.0); Monocytes % (A) 4 %; Neutrophils # (A) 2.9 k/uL (1.3-7.7); Neutrophils % (A) 58 %; Platelet Count 183 k/uL (150-450); RBC 3.81 m/uL (3.80-5.40); RDW 13.4 % (11.5-15.5)
[2023-03-15 22:28] LABS: Appearance,Urine Clear (Clear); Bilirubin,Urine Negative (Negative); Blood,Urine Negative (Negative); Color,Urine Light Yellow; Glucose,Urine (UA) Negative (Negative); Ketones,Urine Negative (Negative); Leukocyte Esterase,Urine Negative (Negative); Nitrite,Urine Negative (Negative); PH, Urine 6.5 (5.0-8.0); Protein,Urine Negative (Negative); Specific Gravity,Urine 1.018 (1.001-1.035); Urobilinogen,Urine <2.0 mg/dL (<2.0)
[2023-03-15 22:29] LABS: ALT 18 U/L (4-34); AST 26 U/L (14-36); African American GFR (CKD) >90 (>60 ml/min/1.73 sqM); Albumin 4.5 g/dL (3.5-5.0); Alkaline Phosphatase 93 U/L (38-126); Amylase 61 U/L (30-110); Anion Gap 6 mmol/L; Blood Urea Nitrogen 16 mg/dL (7-17); Calcium 9.8 mg/dL (8.4-10.2); Carbon Dioxide 30 mmol/L (22-30); Chloride 102 mmol/L (98-107); Glucose 97 mg/dL (74-99); Lipase 80 U/L (23-300); Non-African American GFR(CKD) >90 (>60 ml/min/1.73 sqM); Sodium 138 mmol/L (137-145); Total Bilirubin 0.6 mg/dL (0.2-1.3); Total Protein 7.4 g/dL (6.3-8.2)
--- NOTE | 2023-03-15 23:01 | ED ---
Recheck HPI - General Chief Complaint: Abdominal Pain Stated Complaint: ABD PAIN Time Seen by Provider: 03/15/23 21:40 Source: patient, RN notes reviewed, old records reviewed Mode of arrival: wheelchair Limitations: no limitations - History of Present Illness Initial Comments: This is a 32-year-old female to the ER today. Patient presents today for ev aluation regards to abdominal pain. Right lower quadrant abdominal pain periumbilical abdominal pain pain into her right suprapubic area). 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 No fevers no nausea vomiting or diarrhea no other complaints. MD Complaint: other (Recheck of abdominal pain, muscle strain) -: week(s) (2) Returns Today for: persistent/worsening pain related to initial visit Symptoms Since Prior Visit: worsening pain Associated Symptoms: none Treatments Prior to Arrival: Given Pain Meds on - Related Data Home Medications Medication Instructions Recorded Confirmed Omeprazole 20 mg PO BID 03/07/22 03/17/23 Albuterol Inhaler [Ventolin Hfa 2 puff INHALATION RT-Q6H PRN 02/13/23 03/17/23 Inhaler] Escitalopram [Lexapro] 10 mg PO HS 03/17/23 03/17/23 Meloxicam [Mobic] 7.5 mg PO BID 03/17/23 03/17/23 Ondansetron Odt [Zofran Odt] 4 mg PO Q12HR PRN 03/17/23 03/17/23 Orphenadrine Citrate [Orphenadrine 100 mg PO BID 03/17/23 03/17/23 Citrate ER] Allergies Allergy/AdvReac Type Severity Reaction Status Date / Time sulfamethoxazole Allergy Severe Anaphylaxis Verified 03/17/23 21:47 [From Bactrim] trimethoprim [From Bactrim] Allergy Severe Anaphylaxis Verified 03/17/23 21:47 adhesive tape Allergy Rash/Hives Verified 03/17/23 21:47 aloe vera Allergy Rash/Hives Verified 03/17/23 21:47 azithromycin Allergy Rash/Hives Verified 03/17/23 21:47 cephalexin Allergy Rash/Hives Verified 03/17/23 21:47 metronidazole [From Flagyl] Allergy Rash/Hives Verified 03/17/23 21:47 Penicillins Allergy Rash/Hives Verified 03/17/23 21:47 alprazolam [From Xanax] AdvReac MAKES Verified 03/17/23 21:47 PARANOID dicyclomine [From Bentyl] AdvReac constipatio Verified 03/17/23 21:47 n Review of Systems ROS Statement: Those systems with pertinent positive or pertinent negative responses have been documented in the HPI. ROS Other: All systems not noted in ROS Statement are negative. Past Medical History Past Medical History: Blood Disorder, GERD/Reflux Additional Past Medical History / Comment(s): Endometriosis, polycystic ovarian syndrome. IRON DEFICIENCY ANEMIA. Stomach Ulcer. ovarian cyst History of Any Multi-Drug Resistant Organisms: None Reported Past Surgical History: Ablation, Section, Cholecystectomy, Hernia Repair, Hysterectomy, Tubal Ligation, Uterine Ablation Additional Past Surgical History / Comment(s): Laparoscopy X2, Section X3. Right ovary and right tube removed - 2019. cyst removed from chest. AUG 2020 - ADHESION REMOVAL FROM PAST . Vaginal. pelvic biopsy 05/11. PCOS Past Anesthesia/Blood Transfusion Reactions: No Reported Reaction Past Psychological History: Anxiety, Depression Smoking Status: Never smoker Past Alcohol Use History: None Reported Past Drug Use History: None Reported - Past Family History Mother Family Medical History: Hyperlipidemia Additional Family Medical History / Comment(s): Depression and anxiety. General Exam Limitations: no limitations General appearance: alert, in no apparent distress Head exam: Present: atraumatic, normocephalic, normal inspection Eye exam: Present: normal appearance, PERRL, EOMI. Absent: scleral icterus, conjunctival injection, periorbital swelling ENT exam: Present: normal exam, mucous membranes moist Neck exam: Present: normal inspection. Absent: tenderness, meningismus, lymphadenopathy Respiratory exam: Present: normal lung sounds bilaterally. Absent: respiratory distress, wheezes, rales, rhonchi, stridor Cardiovascular Exam: Present: regular rate, normal rhythm, normal heart sounds. Absent: systolic murmur, diastolic murmur, rubs, gallop, clicks GI/Abdominal exam: Present: soft, normal bowel sounds. Absent: distended, tenderness, guarding, rebound, rigid Extremities exam: Present: normal inspection, full ROM, normal capillary refill. Absent: tenderness, pedal edema, joint swelling, calf tenderness Back exam: Present: normal inspection Neurological exam: Present: alert, oriented X3, CN II-XII intact Psychiatric exam: Present: normal affect, normal mood Skin exam: Present: warm, dry, intact, normal color. Absent: rash Course Vital Signs 03/15/23 03/15/23 03/16/23 21:28 23:19 00:17 Temperature 98.4 F Pulse Rate 96 74 70 Respiratory 20 16 16 Rate Blood Pressure 126/75 139/89 138/97 O2 Sat by Pulse 100 99 99 Oximetry - Reevaluation(s) Reevaluation #1: 03/15/23 23:30 Medical records reviewed Reevaluation #2: 03/15/23 23:30 Patient symptoms are improved Reevaluation #3: 03/15/23 23:30 Patient informed results questions answered Reevaluation #4: 03/15/23 23:05 Was pt. sent in by a medical professional or institution (, PA, WEB SITE SPECIALIST, urgent care, hospital, or senior care...) When possible be specific @ -no Did you speak to anyone other than the patient for history (EMS, parent, family, police, friend...)? What history was obtained from this source @ -no Did you review nursing and triage notes (agree or disagree)? Why? @ -agree Are old charts reviewed (outside hosp., previous admission, EMS record, old EKG, old radiological studies, urgent care reports/EKG's, senior care records)? Report findings @ -yes Differential Diagnosis (chest pain, altered mental status, abdominal pain women, abdominal pain men, vaginal bleeding, weakness, fever, dyspnea, syncope, headache, dizziness, GI bleed, back pain, seizure, CVA, palpatations, mental health, musculoskeletal)? @ -prior EKG interpreted by me (3pts min.). @ -no X-rays interpreted by me (1pt min.). @ -no CT interpreted by me (1pt min.). @ -yes U/S interpreted by me (1pt. min.). @ -no What testing was considered but not performed or refused? (CT, X-rays, U/S, labs)? Why? @ -none What meds were considered but not given or refused? Why? @ -none Did you discuss the management of the patient with other professionals (professionals i.e. , PA, WEB SITE SPECIALIST, lab, RT, psych nurse, social services technician, career development consultant, teacher, motor equipment commanding officer, case management coordinator)? Give summary @ -no Was smoking cessation discussed for >3mins.? @ -no Was critical care preformed (if so, how long)? @ -no Were there social determinants of health that impacted care today? How? (Homelessness, low income, unemployed, alcoholism, drug addiction, transportation, low edu. Level, literacy, decrease access to med. care, nursing home, rehab)? @ -none Was there de-escalation of care discussed even if they declined (Discuss DNR or withdrawal of care, Hospice)? DNR status @ -no What co-morbidities impacted this encounter? (DM, HTN, Smoking, COPD, CAD, Cancer, CVA, ARF, Chemo, Hep., AIDS, mental health diagnosis, sleep apnea, morbid obesity)? @ -none Was patient admitted / discharged? Hospital course, mention meds given and route, prescriptions, significant lab abnormalities, going to OR and other pertinent info. @ - 32 female nonspecific abdominal pain likely persistent muscle strain. Patient's pain improved here in the ER no acute distress will be discharged home Discharged Undiagnosed new problem with uncertain prognosis? @ -no Drug Therapy requiring intensive monitoring for toxicity (Heparin, Nitro, I nsulin, Cardizem)? @ -no Were any procedures done? @ -no Diagnosis/symptom? @ -Abdominal pain post Acute, or Chronic, or Acute on Chronic? @ -Acute Uncomplicated (without systemic symptoms) or Complicated (systemic symptoms)? @ -Complicated Side effects of treatment? @ -no Exacerbation, Progression, or Severe Exacerbation? @ -exacerbation Poses a threat to life or bodily function? How? (Chest pain, [place], [place], pneumonia, PE, COPD, DKA, ARF, appy, cholecystitis, CVA, Diverticulitis, Homicidal, Suicidal, threat to staff... and all critical care pts) @ -no Reevaluation #5: 03/15/23 23:31 Differential Abdominal Pain Women: Appendicitis, Cholecystitis, diverticulosis, ischemic bowel, pancreatitis, hepatitis, UTI, gastroenteritis, AAA, incarcerated hernia, bowel obstruction, constipation, inflammatory bowel, hepatitis, peptic ulcer disease, splenic infarction, perforated viscus, vulvitis, ovarian torsion, PID, kidney stone, placenta abruption, this is not meant to be an all-inclusive list Medical Decision Making - Medical Decision Making 32 female nonspecific abdominal pain likely persistent muscle strain. Patient's pain improved here in the ER no acute distress will be discharged home - Lab Data Result diagrams: 03/15/23 22:04 03/15/23 22:04 Lab Results 03/15/23 03/15/23 03/15/23 Range/Units 22:04 22:04 22:04 WBC 5.0 (3.8-10.6) k/uL RBC 3.81 (3.80-5.40) m/uL Hgb 11.6 (11.4-16.0) gm/dL Hct 34.1 (34.0-46.0) % MCV 89.6 (80.0-100.0) fL MCH 30.5 (25.0-35.0) pg MCHC 34.1 (31.0-37.0) g/dL RDW 13.4 (11.5-15.5) % Plt Count 183 (150-450) k/uL MPV 8.3 Neutrophils % 58 % Lymphocytes % 35 % Monocytes % 4 % Eosinophils % 1 % Basophils % 0 % Neutrophils # 2.9 (1.3-7.7) k/uL Lymphocytes # 1.8 (1.0-4.8) k/uL Monocytes # 0.2 (0-1.0) k/uL Eosinophils # 0.0 (0-0.7) k/uL Basophils # 0.0 (0-0.2) k/uL Sodium 138 (137-145) mmol/L Potassium 4.0 (3.5-5.1) mmol/L Chloride 102 (98-107) mmol/L Carbon Dioxide 30 (22-30) mmol/L Anion Gap 6 mmol/L BUN 16 (7-17) mg/dL Creatinine 0.82 (0.52-1.04) mg/dL Est GFR (CKD-EPI)AfAm >90 (>60 ml/min/1.73 sqM) Est GFR (CKD-EPI)NonAf >90 (>60 ml/min/1.73 sqM) Glucose 97 (74-99) mg/dL Calcium 9.8 (8.4-10.2) mg/dL Total Bilirubin 0.6 (0.2-1.3) mg/dL AST 26 (14-36) U/L ALT 18 (4-34) U/L Alkaline Phosphatase 93 (38-126) U/L Total Protein 7.4 (6.3-8.2) g/dL Albumin 4.5 (3.5-5.0) g/dL Amylase 61 (30-110) U/L Lipase 80 (23-300) U/L Urine Color Light Yellow Urine Appearance Clear (Clear) Urine pH 6.5 (5.0-8.0) Ur Specific [place] 1.018 (1.001-1.035) Urine Protein Negative (Negative) Urine Glucose (UA) Negative (Negative) Urine Ketones Negative (Negative) Urine Blood Negative (Negative) Urine Nitrite Negative (Negative) Urine Bilirubin Negative (Negative) Urine Urobilinogen <2.0 (<2.0) mg/dL Ur Leukocyte Esterase Negative (Negative) - Radiology Data Radiology results: report reviewed (CT of the abdomen and pelvis negative for acute disease), image reviewed Disposition Clinical Impression: Abdominal pain of unknown etiology, Abdominal pain Disposition: HOME SELF-CARE Condition: Good Instructions (If sedation given, give patient instructions): Abdominal Pain (ED) Is patient prescribed a controlled substance at d/c from ED?: No Referrals: Mario Sellers [Primary Care Provider] - 1-2 days Time of Disposition: 23:30
--- NOTE | 2023-03-15 23:01 | CT ---
EXAMINATION TYPE: CT abdomen pelvis w con DATE OF EXAM: 03/15/2023 COMPARISON: 02/13/2023 HISTORY: generalized abdominal pain CT DLP: 1177 mGycm Automated exposure control for dose reduction was used. CONTRAST: CT scan of the abdomen pelvis is performed with IV Contrast, patient injected with 100ml mL of Isovue 300. FINDINGS- LUNG BASES- No significant abnormality is appreciated. LIVER/GB- mild central biliary intrahepatic dilation likely secondary to postcholecystectomy status . PANCREAS- No gross abnormality is seen. SPLEEN- No gross abnormality is seen. ADRENALS- stable nonspecific left adrenal nodularity. KIDNEYS/BLADDER-punctate bilateral renal calculi. No overt hydronephrosis. BOWEL- nonspecific pattern with no obstruction. Appendix normal. A moderate-sized hiatal hernia. LYMPH NODES- No greater than 1cm abdominal or pelvic lymph nodes are appreciated. OSSEOUS STRUCTURES- No significant abnormality is seen. Thickening of the soft tissues adjacent to the periumbilical region likely in the basis of scar. OTHER- aorta of normal caliber. There is a surgical clip in the left hemipelvis IMPRESSION- 1. Similar findings to recent CT performed 02/13/2023. Nonobstructing bilateral renal calculi.
[2023-03-15 23:19] VITALS: RESP 16
[2023-03-15] MEDS ORDERED: HYDROmorphone 1 MG/ML 1 ML SYRINGE IVP STA (23:29)
[2023-03-16 00:19] VITALS: BP 138/97; PULSE 70
== END 2023-03-16 00:19 | disposition home or self-care (01) ==
LOC: EC 21:27
DX: R10.31 Right lower quadrant pain (principal); K21.9 Gastro-esophageal reflux disease without esophagitis; F41.9 Anxiety disorder, unspecified; F32.A Depression, unspecified; Z88.2 Allergy status to sulfonamides; Z88.8 Allergy status to other drugs, medicaments and biological substances; Z88.0 Allergy status to penicillin; Z79.899 Other long term (current) drug therapy
CPT/HCPCS: 36415; 80053; 82150; 83690; 85025; 81003; 74177; 99284; 96374; 96375 ×2; 96361; J2405; J1170; J1885; Q9967

== ENCOUNTER 2023-03-17 20:04 | Emergency (ER) | payer OTHER ==
[2023-03-17 20:09] VITALS: RESP 18; TEMP 98.1
[2023-03-17] MEDS ORDERED: SODIUM CHLORIDE 0.9% 1,000 ML IV STA (20:27)
[2023-03-17] MEDS ORDERED: KETOROLAC 15 MG/ML 1 ML VIAL IVP STA (20:46)
[2023-03-17] MEDS ORDERED: ONDANSETRON 4 MG/2 ML VIAL IVP STA (20:46)
[2023-03-17 20:55] LABS: Appearance,Urine Clear (Clear); Basophils % (A) 0 %; Bilirubin,Urine Negative (Negative); Blood,Urine Negative (Negative); Color,Urine Light Yellow; Eosinophils # (A) 0.1 k/uL (0-0.7); Eosinophils % (A) 1 %; Glucose,Urine (UA) Negative (Negative); HCT 31.2 % (34.0-46.0); HGB 10.5 gm/dL (11.4-16.0); Ketones,Urine Negative (Negative); Leukocyte Esterase,Urine Small (Negative); Lymphocytes # (A) 1.5 k/uL (1.0-4.8); Lymphocytes % (A) 31 %; MCH 30.5 pg (25.0-35.0); MCHC 33.5 g/dL (31.0-37.0); MCV 91.2 fL (80.0-100.0); Mean Platelet Volume 7.9; Monocytes # (A) 0.2 k/uL (0-1.0); Monocytes % (A) 5 %; Mucus,Urine Rare /hpf; Neutrophils # (A) 2.9 k/uL (1.3-7.7); Neutrophils % (A) 61 %; Nitrite,Urine Negative (Negative); PH, Urine 6.5 (5.0-8.0); Platelet Count 164 k/uL (150-450); Protein,Urine Negative (Negative); RBC 3.42 m/uL (3.80-5.40); RBC,Urine <1 /hpf (0-5); RDW 13.7 % (11.5-15.5); Specific Gravity,Urine 1.012 (1.001-1.035); Urobilinogen,Urine <2.0 mg/dL (<2.0); WBC 4.7 k/uL (3.8-10.6); WBC,Urine 7 /hpf (0-5)
[2023-03-17 20:57] LABS: ALT 22 U/L (4-34); AST 29 U/L (14-36); African American GFR (CKD) >90 (>60 ml/min/1.73 sqM); Albumin 4.1 g/dL (3.5-5.0); Alkaline Phosphatase 73 U/L (38-126); Anion Gap 7 mmol/L; Blood Urea Nitrogen 16 mg/dL (7-17); Calcium 9.5 mg/dL (8.4-10.2); Carbon Dioxide 27 mmol/L (22-30); Chloride 104 mmol/L (98-107); Glucose 97 mg/dL (74-99); Lipase 57 U/L (23-300); Non-African American GFR(CKD) >90 (>60 ml/min/1.73 sqM); Potassium 3.9 mmol/L (3.5-5.1); Sodium 138 mmol/L (137-145); Total Bilirubin 0.4 mg/dL (0.2-1.3); Total Protein 6.9 g/dL (6.3-8.2)
--- NOTE | 2023-03-17 21:42 | US ---
EXAMINATION TYPE: US pelvic limited DATE OF EXAM: 03/17/2023 COMPARISON: Multiple prior ultrasounds an CTs. CLINICAL INDICATION: Female, 32 years old with history of right pelvic pain; Partial hysterectomy, ri ght oophorectomy 2020. Left oophorectomy 2021 TECHNIQUE: Transabdominal (TA) Date of LMP: unknown EXAM MEASUREMENTS: Uterus: Surgically absent Endometrial Stripe: Surgically absent Right Ovary: Surgically absent Left Ovary: Surgically absent 1. Uterus: Surgically absent 2. Endometrium: Surgically absent 3. Right Ovary: Surgically absent 4. Left Ovary: Surgically absent 5. Bilateral Adnexa: appears wnl IMPRESSION: No evidence for acute process.
--- NOTE | 2023-03-17 22:00 | ED ---
Abdominal Pain HPI - General Chief Complaint: Abdominal Pain Stated Complaint: abd pain Time Seen by Provider: 03/17/23 20:10 Source: patient Mode of arrival: ambulatory Limitations: no limitations - History of Present Illness Initial Comments: Patient is a 32-year-old female who presents to the emergency department for right pelvic pain. Patient has history of chronic abdominal pain states this feels similar to her pain. States her home pain medications are not working. She feels nauseous no vomiting. No fever or chills. No urinary symptoms. No vaginal discharge or concern for sexually transmitted infections. No changes in bowel habits. - Related Data Home Medications Medication Instructions Recorded Confirmed Omeprazole 20 mg PO BID 03/07/22 03/17/23 Albuterol Inhaler [Ventolin Hfa 2 puff INHALATION RT-Q6H PRN 02/13/23 03/17/23 Inhaler] Escitalopram [Lexapro] 10 mg PO HS 03/17/23 03/17/23 Meloxicam [Mobic] 7.5 mg PO BID 03/17/23 03/17/23 Ondansetron Odt [Zofran Odt] 4 mg PO Q12HR PRN 03/17/23 03/17/23 Orphenadrine Citrate [Orphenadrine 100 mg PO BID 03/17/23 03/17/23 Citrate ER] Allergies Allergy/AdvReac Type Severity Reaction Status Date / Time sulfamethoxazole Allergy Severe Anaphylaxis Verified 03/17/23 21:47 [From Bactrim] trimethoprim [From Bactrim] Allergy Severe Anaphylaxis Verified 03/17/23 21:47 adhesive tape Allergy Rash/Hives Verified 03/17/23 21:47 aloe vera Allergy Rash/Hives Verified 03/17/23 21:47 azithromycin Allergy Rash/Hives Verified 03/17/23 21:47 cephalexin Allergy Rash/Hives Verified 03/17/23 21:47 metronidazole [From Flagyl] Allergy Rash/Hives Verified 03/17/23 21:47 Penicillins Allergy Rash/Hives Verified 03/17/23 21:47 alprazolam [From Xanax] AdvReac MAKES Verified 03/17/23 21:47 PARANOID dicyclomine [From Bentyl] AdvReac constipatio Verified 03/17/23 21:47 n Review of Systems ROS Statement: Those systems with pertinent positive or pertinent negative responses have been documented in the HPI. ROS Other: All systems not noted in ROS Statement are negative. Past Medical History Past Medical History: Blood Disorder, GERD/Reflux Additional Past Medical History / Comment(s): Endometriosis, polycystic ovarian syndrome. IRON DEFICIENCY ANEMIA. Stomach Ulcer. ovarian cyst History of Any Multi-Drug Resistant Organisms: None Reported Past Surgical History: Ablation, Section, Cholecystectomy, Hernia Repair, Hysterectomy, Tubal Ligation, Uterine Ablation Additional Past Surgical History / Comment(s): Laparoscopy X2, Section X3. Right ovary and right tube removed - 2019. cyst removed from chest. AUG 2020 - ADHESION REMOVAL FROM PAST . Vaginal. pelvic biopsy 05/11. PCOS Past Anesthesia/Blood Transfusion Reactions: No Reported Reaction Past Psychological History: Anxiety, Depression Smoking Status: Never smoker Past Alcohol Use History: None Reported Past Drug Use History: None Reported - Past Family History Mother Family Medical History: Hyperlipidemia Additional Family Medical History / Comment(s): Depression and anxiety. General Exam Limitations: no limitations General appearance: alert Head exam: Present: atraumatic, normocephalic, normal inspection Respiratory exam: Present: normal lung sounds bilaterally. Absent: respiratory distress, wheezes, rales, rhonchi, stridor Cardiovascular Exam: Present: regular rate, normal rhythm, normal heart sounds. Absent: systolic murmur, diastolic murmur, rubs, gallop, clicks GI/Abdominal exam: Present: soft, tenderness (Mild right pelvic), normal bowel sounds. Absent: distended, guarding, rebound, rigid Neurological exam: Present: alert Psychiatric exam: Present: normal affect, normal mood Skin exam: Present: warm, dry, intact, normal color. Absent: rash Course Vital Signs 03/17/23 03/17/23 20:07 22:03 Temperature 98.1 F Pulse Rate 93 80 Respiratory 18 18 Rate Blood Pressure 138/89 135/80 O2 Sat by Pulse 98 98 Oximetry Medical Decision Making - Medical Decision Making Was pt. sent in by a medical professional or institution (, PA, MACHINE HEEL SEAT LASTER, urgent care, hospital, or assisted...) When possible be specific @ -No Did you speak to anyone other than the patient for history (EMS, parent, family, police, friend...)? What history was obtained from this source @ -No Did you review nursing and triage notes (agree or disagree)? Why? @ -I reviewed and agree with nursing and triage notes Were old charts reviewed (outside hosp., previous admission, EMS record, old EKG, old radiological studies, urgent care reports/EKG's, assisted records)? Report findings @ -No old charts were reviewed Differential Diagnosis (chest pain, altered mental status, abdominal pain women, abdominal pain men, vaginal bleeding, weakness, fever, dyspnea, syncope, headache, dizziness, GI bleed, back pain, seizure, CVA, palpatations, mental health)? @ Differential Abdominal Pain Women: Appendicitis, Cholecystitis, diverticulosis, ischemic bowel, pancreatitis, hepatitis, UTI, gastroenteritis, AAA, incarcerated hernia, bowel obstruction, constipation, inflammatory bowel, hepatitis, peptic ulcer disease, splenic infarction, perforated viscus, vulvitis, ovarian torsion, PID, kidney stone, placenta abruption, this is not meant to be an all-inclusive list EKG interpreted by me (3pts min.). @ -As above X-rays interpreted by me (1pt min.). @ -None done CT interpreted by me (1pt min.). @ -None done U/S interpreted by me (1pt. min.). @No acute process What testing was considered but not performed or refused? (CT, X-rays, U/S, labs)? Why? @ -None What meds were considered but not given or refused? Why? @ -None Did you discuss the management of the patient with other professionals (professionals i.e. , PA, MACHINE HEEL SEAT LASTER, lab, RT, psych nurse, mental health social worker, railway engineer, teacher, public records officer, case planner)? Give summary @ -No Was smoking cessation discussed for >3mins.? @ -No Was critical care preformed (if so, how long)? @ -No Were there social determinants of health that impacted care today? How? (Homelessness, low income, unemployed, alcoholism, drug addiction, transportation, low edu. Level, literacy, decrease access to med. care, care home, rehab)? @ -No Was there de-escalation of care discussed even if they declined (Discuss DNR or withdrawal of care, Hospice)? DNR status @ -No What co-morbidities impacted this encounter? (DM, HTN, Smoking, COPD, CAD, Cancer, CVA, ARF, Chemo, Hep., AIDS, mental health diagnosis, sleep apnea, morbid obesity)? @ -Chronic abdominal pain Was patient admitted / discharged? Hospital course, mention meds given and route, prescriptions, significant lab abnormalities, going to OR and other pertinent info. @ -Patient presenting with chronic abdominal pain.Laboratory studies signifi cant for anemia, hemoglobin 10.5, consistent with previous visits. Ultrasound interpreted by myself showing no acute process. Patient given pain medication with improvement she is in stable medical condition for discharge Undiagnosed new problem with uncertain prognosis? @ -No Drug Therapy requiring intensive monitoring for toxicity (Heparin, Nitro, Insulin, Cardizem)? @ -No Were any procedures done? @ -No Diagnosis/symptom? @ -Pelvic pain, nausea Acute, or Chronic, or Acute on Chronic? @ -Acute Uncomplicated (without systemic symptoms) or Complicated (systemic symptoms)? @ -Uncomplicated Side effects of treatment? @ -No Exacerbation, Progression, or Severe Exacerbation? @ -No] Poses a threat to life or bodily function? How? (Chest pain, USA, [place], pneumonia, PE, COPD, DKA, ARF, appy, cholecystitis, CVA, Diverticulitis, Homicidal, Suicidal, threat to staff... and all critical care pts) @ -[No] Dr. Carpio is my attending - Lab Data Result diagrams: 03/17/23 20:41 03/17/23 20:41 Lab Results 03/17/23 03/17/23 03/17/23 Range/Units 20:41 20:41 20:41 WBC 4.7 (3.8-10.6) k/uL RBC 3.42 L (3.80-5.40) m/uL Hgb 10.5 L (11.4-16.0) gm/dL Hct 31.2 L (34.0-46.0) % MCV 91.2 (80.0-100.0) fL MCH 30.5 (25.0-35.0) pg MCHC 33.5 (31.0-37.0) g/dL RDW 13.7 (11.5-15.5) % Plt Count 164 (150-450) k/uL MPV 7.9 Neutrophils % 61 % Lymphocytes % 31 % Monocytes % 5 % Eosinophils % 1 % Basophils % 0 % Neutrophils # 2.9 (1.3-7.7) k/uL Lymphocytes # 1.5 (1.0-4.8) k/uL Monocytes # 0.2 (0-1.0) k/uL Eosinophils # 0.1 (0-0.7) k/uL Basophils # 0.0 (0-0.2) k/uL Sodium 138 (137-145) mmol/L Potassium 3.9 (3.5-5.1) mmol/L Chloride 104 (98-107) mmol/L Carbon Dioxide 27 (22-30) mmol/L Anion Gap 7 mmol/L BUN 16 (7-17) mg/dL Creatinine 0.77 (0.52-1.04) mg/dL Est GFR (CKD-EPI)AfAm >90 (>60 ml/min/1.73 sqM) Est GFR (CKD-EPI)NonAf >90 (>60 ml/min/1.73 sqM) Glucose 97 (74-99) mg/dL Plasma Lactic Acid Santh[place] (0.7-2.0) mmol/L Calcium 9.5 (8.4-10.2) mg/dL Total Bilirubin 0.4 (0.2-1.3) mg/dL AST 29 (14-36) U/L ALT 22 (4-34) U/L Alkaline Phosphatase 73 (38-126) U/L Total Protein 6.9 (6.3-8.2) g/dL Albumin 4.1 (3.5-5.0) g/dL Lipase 57 (23-300) U/L Urine Color Light Yellow Urine Appearance Clear (Clear) Urine pH 6.5 (5.0-8.0) Ur Specific [place] 1.012 (1.001-1.035) Urine Protein Negative (Negative) Urine Glucose (UA) Negative (Negative) Urine Ketones Negative (Negative) Urine Blood Negative (Negative) Urine Nitrite Negative (Negative) Urine Bilirubin Negative (Negative) Urine Urobilinogen <2.0 (<2.0) mg/dL Ur Leukocyte Esterase Small H (Negative) Urine RBC <1 (0-5) /hpf Urine WBC 7 H (0-5) /hpf Urine Mucus Rare H (None) /hpf Urine HCG, Qual (Not Detectd) 03/17/23 03/17/23 Range/Units 20:41 20:41 WBC (3.8-10.6) k/uL RBC (3.80-5.40) m/uL Hgb (11.4-16.0) gm/dL Hct (34.0-46.0) % MCV (80.0-100.0) fL MCH (25.0-35.0) pg MCHC (31.0-37.0) g/dL RDW (11.5-15.5) % Plt Count (150-450) k/uL MPV Neutrophils % % Lymphocytes % % Monocytes % % Eosinophils % % Basophils % % Neutrophils # (1.3-7.7) k/uL Lymphocytes # (1.0-4.8) k/uL Monocytes # (0-1.0) k/uL Eosinophils # (0-0.7) k/uL Basophils # (0-0.2) k/uL Sodium (137-145) mmol/L Potassium (3.5-5.1) mmol/L Chloride (98-107) mmol/L Carbon Dioxide (22-30) mmol/L Anion Gap mmol/L BUN (7-17) mg/dL Creatinine (0.52-1.04) mg/dL Est GFR (CKD-EPI)AfAm (>60 ml/min/1.73 sqM) Est GFR (CKD-EPI)NonAf (>60 ml/min/1.73 sqM) Glucose (74-99) mg/dL Plasma Lactic Acid [place] 1.3 (0.7-2.0) mmol/L Calcium (8.4-10.2) mg/dL Total Bilirubin (0.2-1.3) mg/dL AST (14-36) U/L ALT (4-34) U/L Alkaline Phosphatase (38-126) U/L Total Protein (6.3-8.2) g/dL Albumin (3.5-5.0) g/dL Lipase (23-300) U/L Urine Color Urine Appearance (Clear) Urine pH (5.0-8.0) Ur Specific [place] (1.001-1.035) Urine Protein (Negative) Urine Glucose (UA) (Negative) Urine Ketones (Negative) Urine Blood (Negative) Urine Nitrite (Negative) Urine Bilirubin (Negative) Urine Urobilinogen (<2.0) mg/dL Ur Leukocyte Esterase (Negative) Urine RBC (0-5) /hpf Urine WBC (0-5) /hpf Urine Mucus (None) /hpf Urine HCG, Qual Not Detected (Not Detectd) Disposition Clinical Impression: Pelvic pain, Nausea Disposition: HOME SELF-CARE Condition: Good Instructions (If sedation given, give patient instructions): Chronic Abdominal Pain (ED) Additional Instructions: Take medication as directed. Please follow-up with your primary care provider in 1-2 days. Return to the emergency department if you experience new, concerning, or worsening symptoms. Is patient prescribed a controlled substance at d/c from ED?: No Referrals: Belinda Powell NPC [Primary Care Provider] - 1-2 days
[2023-03-17] MEDS ORDERED: ACETAMINOPHEN TAB 500 MG TAB PO STA (22:03)
[2023-03-17 22:04] VITALS: BP 135/80; PULSE 80
== END 2023-03-17 22:16 | disposition home or self-care (01) ==
LOC: EC 20:04
DX: R10.2 Pelvic and perineal pain (principal); R11.0 Nausea; K21.9 Gastro-esophageal reflux disease without esophagitis; F32.A Depression, unspecified; F41.9 Anxiety disorder, unspecified; Z79.899 Other long term (current) drug therapy; Z88.2 Allergy status to sulfonamides; Z88.0 Allergy status to penicillin; Z88.8 Allergy status to other drugs, medicaments and biological substances
CPT/HCPCS: 36415; 80053; 83605; 83690; 85025; 81001; 81025; 76857; 99284; 96374; 96375; 96361; J2405; J1885

== ENCOUNTER 2023-03-27 11:24 | Emergency (ER) | payer OTHER ==
[2023-03-27 12:08] VITALS: BP 127/86; PULSE 73; RESP 16; TEMP 98.6
--- NOTE | 2023-03-27 12:35 | ED ---
General Adult HPI - General Chief complaint: Abdominal Pain Stated complaint: [facility]-upper abd pain Time Seen by Provider: 03/27/23 12:11 Source: patient, RN notes reviewed, old records reviewed Mode of arrival: ambulatory Limitations: no limitations - History of Present Illness Initial comments: 32-year-old female presents for evaluation of left-sided upper abdominal pain and left lower chest pain. 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 She was able to remain standing and did not fall. No other injury. She has issues with chronic abdominal pain but states that this pain began after the incident. No vomiting. No fever. No difficulty breathing. - Related Data Home Medications Medication Instructions Recorded Confirmed Omeprazole 20 mg PO BID 03/07/22 03/17/23 Albuterol Inhaler [Ventolin Hfa 2 puff INHALATION RT-Q6H PRN 02/13/23 03/17/23 Inhaler] Escitalopram [Lexapro] 10 mg PO HS 03/17/23 03/17/23 Meloxicam [Mobic] 7.5 mg PO BID 03/17/23 03/17/23 Ondansetron Odt [Zofran Odt] 4 mg PO Q12HR PRN 03/17/23 03/17/23 Orphenadrine Citrate [Orphenadrine 100 mg PO BID 03/17/23 03/17/23 Citrate ER] Allergies Allergy/AdvReac Type Severity Reaction Status Date / Time sulfamethoxazole Allergy Severe Anaphylaxis Verified 03/27/23 12:08 [From Bactrim] trimethoprim [From Bactrim] Allergy Severe Anaphylaxis Verified 03/27/23 12:08 adhesive tape Allergy Rash/Hives Verified 03/27/23 12:08 aloe vera Allergy Rash/Hives Verified 03/27/23 12:08 azithromycin Allergy Rash/Hives Verified 03/27/23 12:08 cephalexin Allergy Rash/Hives Verified 03/27/23 12:08 metronidazole [From Flagyl] Allergy Rash/Hives Verified 03/27/23 12:08 Penicillins Allergy Rash/Hives Verified 03/27/23 12:08 alprazolam [From Xanax] AdvReac MAKES Verified 03/27/23 12:08 PARANOID dicyclomine [From Bentyl] AdvReac constipatio Verified 03/27/23 12:08 n Review of Systems ROS Statement: Those systems with pertinent positive or pertinent negative responses have been documented in the HPI. ROS Other: All systems not noted in ROS Statement are negative. Past Medical History Past Medical History: Blood Disorder, GERD/Reflux Additional Past Medical History / Comment(s): Endometriosis, polycystic ovarian syndrome. IRON DEFICIENCY ANEMIA. Stomach Ulcer. ovarian cyst History of Any Multi-Drug Resistant Organisms: None Reported Past Surgical History: Ablation, Section, Cholecystectomy, Hernia Rep air, Hysterectomy, Tubal Ligation, Uterine Ablation Additional Past Surgical History / Comment(s): Laparoscopy X2, Section X3. Right ovary and right tube removed - 2019. cyst removed from chest. AUG 2020 - ADHESION REMOVAL FROM PAST . Vaginal. pelvic biopsy 05/11. PCOS Past Anesthesia/Blood Transfusion Reactions: No Reported Reaction Past Psychological History: Anxiety, Depression Smoking Status: Never smoker Past Alcohol Use History: None Reported Past Drug Use History: None Reported - Past Family History Mother Family Medical History: Hyperlipidemia Additional Family Medical History / Comment(s): Depression and anxiety. General Exam Limitations: no limitations General appearance: alert, in no apparent distress Head exam: Present: atraumatic, normocephalic Eye exam: Present: normal appearance, PERRL ENT exam: Present: normal exam Neck exam: Present: normal inspection. Absent: tenderness, meningismus Respiratory exam: Present: normal lung sounds bilaterally, chest wall tenderness (Left lower anterior rib pain). Absent: respiratory distress Cardiovascular Exam: Present: regular rate, normal rhythm GI/Abdominal exam: Present: soft, tenderness (LUQ TTP). Absent: distended, guarding, rebound Extremities exam: Present: normal inspection, normal capillary refill Neurological exam: Present: alert, oriented X3, CN II-XII intact. Absent: motor sensory deficit Psychiatric exam: Present: normal affect, normal mood Skin exam: Present: warm, dry, intact Course Vital Signs 03/27/23 12:06 Temperature 98.6 F Pulse Rate 73 Respiratory 16 Rate Blood Pressure 127/86 O2 Sat by Pulse 99 Oximetry Medical Decision Making - Medical Decision Making Was pt. sent in by a medical professional or institution (, PA, BEVERAGE MANAGER, urgent care, hospital, or intermediate...) When possible be specific @ -No Did you speak to anyone other than the patient for history (EMS, parent, family, police, friend...)? What history was obtained from this source @ -No Did you review nursing and triage notes (agree or disagree)? Why? @ -I reviewed and agree with nursing and triage notes Were old charts reviewed (outside hosp., previous admission, EMS record, old E KG, old radiological studies, urgent care reports/EKG's, intermediate records)? Report findings @ -No old charts were reviewed Differential Diagnosis (chest pain, altered mental status, abdominal pain women, abdominal pain men, vaginal bleeding, weakness, fever, dyspnea, syncope, headache, dizziness, GI bleed, back pain, seizure, CVA, palpatations, mental hea lth, musculoskeletal)? @Left sided lower rib fracture, contusion, solid organ injury EKG interpreted by me (3pts min.). @ -As above X-rays interpreted by me (1pt min.). @ -None done CT interpreted by me (1pt min.). @ -None done U/S interpreted by me (1pt. min.). @ -None done What testing was considered but not performed or refused? (CT, X-rays, U/S, labs)? Why? @ -None What meds were considered but not given or refused? Why? @ -None Did you discuss the management of the patient with other professionals (professionals i.e. , PA, BEVERAGE MANAGER, lab, RT, psych nurse, social human services assistants, fiscal manager, teacher, aoc operations intelligence officer, case packer)? Give summary @ -No Was smoking cessation discussed for >3mins.? @ -No Was critical care preformed (if so, how long)? @ -No Were there social determinants of health that impacted care today? How? (Homelessness, low income, unemployed, alcoholism, drug addiction, transportation, low edu. Level, literacy, decrease access to med. care, longterm, rehab)? @ -No Was there de-escalation of care discussed even if they declined (Discuss DNR or withdrawal of care, Hospice)? DNR status @ -No What co-morbidities impacted this encounter? (DM, HTN, Smoking, COPD, CAD, Cancer, CVA, ARF, Chemo, Hep., AIDS, mental health diagnosis, sleep apnea, morbid obesity)? @ -[Chronic abdominal pain Was patient admitted / discharged? Hospital course, mention meds given and route, prescriptions, significant lab abnormalities, going to OR and other pertinent info. @ -[32-year-old female presenting with left-sided abdominal pain after minor trauma. She has some left lower rib tenderness to palpation, x-rays negative for fracture. I have a low concern for any serious abdominal injury given the mechanism as described, stable vitals and abdominal exam. Patient will monitor symptoms, return as needed. Undiagnosed new problem with uncertain prognosis? @ -No Drug Therapy requiring intensive monitoring for toxicity (Heparin, Nitro, Insulin, Cardizem)? @ -No Were any procedures done? @ -No Diagnosis/symptom? @ -Abdominal contusion Acute, or Chronic, or Acute on Chronic? @ -[Acute Uncomplicated (without systemic symptoms) or Complicated (systemic symptoms)? @ -[Uncomplicated Side effects of treatment? @ -No Exacerbation, Progression, or Severe Exacerbation? @ -No Poses a threat to life or bodily function? How? (Chest pain, USA, CT, pneumonia, PE, COPD, DKA, ARF, appy, cholecystitis, CVA, Diverticulitis, Homicidal, Suicidal, threat to staff... and all critical care pts) @ -No Disposition Clinical Impression: Abdominal pain Disposition: HOME SELF-CARE Condition: Fair Instructions (If sedation given, give patient instructions): Abdominal Pain (ED) Is patient prescribed a controlled substance at d/c from ED?: No Referrals: Belinda Powell, NPC [Primary Care Provider] - 1-2 days Time of Disposition: 13:29
--- NOTE | 2023-03-27 13:22 | XR ---
EXAMINATION TYPE: XR ribs LT w pa chest xray DATE OF EXAM: 03/27/2023 COMPARISON: 12/12/2018 HISTORY: Hit by patient work TECHNIQUE: Frontal chest 2 views left RIBS FINDINGS: Heart size is normal. Pulmonary vasculature is normal. Lungs are clear. No acute displaced rib fractures are identified. No pneumothorax is evident. IMPRESSION: 1. No acute rib fractures radiographically apparent. Follow-up can be performed as clinically indica chirag.
== END 2023-03-27 14:02 | disposition home or self-care (01) ==
LOC: EC 11:24
DX: R10.12 Left upper quadrant pain (principal); K21.9 Gastro-esophageal reflux disease without esophagitis; F41.9 Anxiety disorder, unspecified; F32.A Depression, unspecified; Z79.899 Other long term (current) drug therapy
CPT/HCPCS: 99284

== ENCOUNTER 2023-05-24 22:14 | Emergency (ER) | payer OTHER ==
[2023-05-24 22:54] VITALS: TEMP 98.8
[2023-05-24] MEDS ORDERED: HYDROmorphone 1 MG/ML 1 ML SYRINGE IVP STA (23:54)
[2023-05-24] MEDS ORDERED: ONDANSETRON 4 MG/2 ML VIAL IVP STA (23:54)
[2023-05-24] MEDS ORDERED: KETOROLAC 15 MG/ML 1 ML VIAL IVP STA (23:54)
--- NOTE | 2023-05-25 00:01 | ED ---
General Adult HPI - General Chief complaint: Nausea/Vomiting/Diarrhea Stated complaint: n\v back pain Time Seen by Provider: 05/24/23 23:39 Source: patient Mode of arrival: ambulatory Limitations: no limitations - History of Present Illness Initial comments: Dictation was produced using [employer] dictation software. please excuse any grammatical, word or spelling errors. Chief Complaint: 32-year-old female presents with Left-sided CVA pain nausea and diarrhea History of Present Illness: Patient 32-year-old female she is well known to the emergency department for multiple visitations for abdominal pain. States that she had multiple days of nausea, diarrhea and left-sided back pain. Denies any urinary symptoms. 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 Otherwise no obvious sick contacts. Patient requesting Dilaudid or morphine. Denies any constitutional symptoms. The ROS documented in this emergency department record has been reviewed and confirmed by me. Those systems with pertinent positive or negative responses guerrero ve been documented in the HPI. All other systems are other negative and/or noncontributory. - Related Data Home Medications Medication Instructions Recorded Confirmed Omeprazole 20 mg PO BID 03/07/22 03/17/23 Albuterol Inhaler [Ventolin Hfa 2 puff INHALATION RT-Q6H PRN 02/13/23 03/17/23 Inhaler] Escitalopram [Lexapro] 10 mg PO HS 03/17/23 03/17/23 Meloxicam [Mobic] 7.5 mg PO BID 03/17/23 03/17/23 Ondansetron Odt [Zofran Odt] 4 mg PO Q12HR PRN 03/17/23 03/17/23 Orphenadrine Citrate [Orphenadrine 100 mg PO BID 03/17/23 03/17/23 Citrate ER] Allergies Allergy/AdvReac Type Severity Reaction Status Date / Time sulfamethoxazole Allergy Severe Anaphylaxis Verified 05/24/23 22:38 [From Bactrim] trimethoprim [From Bactrim] Allergy Severe Anaphylaxis Verified 05/24/23 22:38 adhesive tape Allergy Rash/Hives Verified 05/24/23 22:38 aloe vera Allergy Rash/Hives Verified 05/24/23 22:38 azithromycin Allergy Rash/Hives Verified 05/24/23 22:38 cephalexin Allergy Rash/Hives Verified 05/24/23 22:38 metronidazole [From Flagyl] Allergy Rash/Hives Verified 05/24/23 22:38 Penicillins Allergy Rash/Hives Verified 05/24/23 22:38 alprazolam [From Xanax] AdvReac MAKES Verified 05/24/23 22:38 PARANOID dicyclomine [From Bentyl] AdvReac constipatio Verified 05/24/23 22:38 n Review of Systems ROS Statement: Those systems with pertinent positive or pertinent negative responses have been documented in the HPI. ROS Other: All systems not noted in ROS Statement are negative. Past Medical History Past Medical History: Blood Disorder, GERD/Reflux Additional Past Medical History / Comment(s): Endometriosis, polycystic ovarian syndrome. IRON DEFICIENCY ANEMIA. Stomach Ulcer. ovarian cyst History of Any Multi-Drug Resistant Organisms: None Reported Past Surgical History: Ablation, Section, Cholecystectomy, Hernia Repair, Hysterectomy, Tubal Ligation, Uterine Ablation Additional Past Surgical History / Comment(s): Laparoscopy X2, Section X3. Right ovary and right tube removed - 2019. cyst removed from chest. AUG 2020 - ADHESION REMOVAL FROM PAST . Vaginal. pelvic biopsy 05/11. PCOS Past Anesthesia/Blood Transfusion Reactions: No Reported Reaction Past Psychological History: Anxiety, Depression Smoking Status: Never smoker Past Alcohol Use History: None Reported Past Drug Use History: None Reported - Past Family History Mother Family Medical History: Hyperlipidemia Additional Family Medical History / Comment(s): Depression and anxiety. General Exam - General Exam Comments Initial Comments: PHYSICAL EXAM: General Impression: Alert and oriented x3, not in acute distress HEENT: Normocephalic atraumatic, extra-ocular movements intact, pupils equal and reactive to light bilaterally, mucous membranes moist. Cardiovascular: Heart regular rate and rhythm Chest: Able to complete full sentences, no retractions, no tachypnea Abdomen: abdomen soft, non-tender, non-distended, no organomegaly Musculoskeletal: Pulses present and equal in all extremities, no peripheral edema Motor: no focal deficits noted Neurological: CN II-XII grossly intact, no focal motor or sensory deficits noted Skin: Intact with no visualized rashes Psych: Normal affect and mood Limitations: no limitations Course Vital Signs 05/24/23 05/25/23 05/25/23 22:38 00:14 01:36 Temperature 98.8 F Pulse Rate 98 91 101 H Respiratory 18 16 16 Rate Blood Pressure 127/83 126/83 116/64 O2 Sat by Pulse 98 98 100 Oximetry Medical Decision Making - Medical Decision Making Was pt. sent in by a medical professional or institution (ANALI Leroy, METALLURGIST [employer]ESS, urgent care, hospital, or [place] [facility] facility...) When possible be specific @ -No Did you speak to anyone other than the patient for history (EMS, parent, family, police, friend...)? What history was obtained from this source @ -No Did you review nursing and triage notes (agree or disagree)? Why? @ -I reviewed and agree with nursing and triage notes Were old charts reviewed (outside hosp., previous admission, EMS record, old EKG, old radiological studies, urgent care reports/EKG's, [place] [facility] facility records)? Report findings @ -No old charts were reviewed Differential Diagnosis (chest pain, altered mental status, abdominal pain women, abdominal pain men, vaginal bleeding, musculoskeletal, weakness, fever, dyspnea, syncope, headache, dizziness, GI bleed, back pain, seizure, CVA, palpatations, mental health)? @ -DDifferential Back Pain: Strain, zoster, cauda equina syndrome, epidural abscess, vertebral osteomyelitis, discitis, fracture, subluxation, disc herniation, DJD, spinal stenosis, dissection, AAA, pancreatitis, peptic ulcer disease, pyelonephritis, kidney stone, this is not meant to be an all-inclusive list. EKG interpreted by me (3pts min.). @ -None done X-rays interpreted by me (1pt min.). @ -None done CT interpreted by me (1pt min.). @ -None done U/S interpreted by me (1pt. min.). @ -None done What testing was considered but not performed or refused? (CT, X-rays, U/S, labs)? Why? @ -None What meds were considered but not given or refused? Why? @ -None Did you discuss the management of the patient with other professionals (professionals i.e. ANALI Leroy, METALLURGIST PROCESS, lab, RT, psych nurse, social work instructor, speech pathologist assistant, teacher, campus safety officer, rn field case manager)? Give summary @ -No Was smoking cessation discussed for >3mins.? @ -No Was critical care preformed (if so, how long)? @ -No Were there social determinants of health that impacted care today? How? (Homelessness, low income, unemployed, alcoholism, drug addiction, transportation, low edu. Level, literacy, decrease access to med. care, correction, rehab)? @ -No Was there de-escalation of care discussed even if they declined (Discuss DNR or withdrawal of care, Hospice)? DNR status @ -No What co-morbidities impacted this encounter? (DM, HTN, Smoking, COPD, CAD, Cancer, CVA, ARF, Chemo, Hep., AIDS, mental health diagnosis, sleep apnea, morbid obesity)? @ -None Was patient admitted / discharged? Hospital course, mention meds given and r oute, prescriptions, significant lab abnormalities, going to OR and other pertinent info. @ -Year-old female well-known to emergency department for multiple visitations for abdominal pain presents to the ER for left CVA pain diarrhea nausea. Patient is well-appearing at bedside. Vital signs stable. Laboratory evaluation is unremarkable. Urinalysis negative. Patient is well-appearing. Patient has no high-risk features. Patient be discharged. Undiagnosed new problem with uncertain prognosis? @ -No Drug Therapy requiring intensive monitoring for toxicity (Heparin, Nitro, Insulin, Cardizem)? @ -No Were any procedures done? @ -No Diagnosis/symptom? Acute, or Chronic, or Acute on Chronic? Uncomplicated (without systemic symptoms) or Complicated (systemic symptoms)? @ Back pain, nausea and vomiting, no obvious source, no high-risk features Side effects of treatment? @ -No Exacerbation, Progression, or Severe Exacerbation? @ -No Poses a threat to life or bodily function? How? (Chest pain, [place], [place], pneumonia, PE, COPD, DKA, ARF, appy, cholecystitis, CVA, Diverticulitis, Homicidal, Suicidal, threat to staff... and all critical care pts) @ -No - Lab Data Result diagrams: 05/24/23 23:59 05/24/23 23:59 Lab Results 05/24/23 05/24/23 05/24/23 Range/Units 23:53 23:59 23:59 WBC 4.7 (3.8-10.6) k/uL RBC 3.81 (3.80-5.40) m/uL Hgb 11.8 (11.4-16.0) gm/dL Hct 34.9 (34.0-46.0) % MCV 91.4 (80.0-100.0) fL MCH 30.9 (25.0-35.0) pg MCHC 33.8 (31.0-37.0) g/dL RDW 13.3 (11.5-15.5) % Plt Count 205 (150-450) k/uL MPV 7.5 Neutrophils % 54 % Lymphocytes % 38 % Monocytes % 5 % Eosinophils % 0 % Basophils % 0 % Neutrophils # 2.5 (1.3-7.7) k/uL Lymphocytes # 1.7 (1.0-4.8) k/uL Monocytes # 0.3 (0-1.0) k/uL Eosinophils # 0.0 (0-0.7) k/uL Basophils # 0.0 (0-0.2) k/uL Sodium 138 (137-145) mmol/L Potassium 4.2 (3.5-5.1) mmol/L Chloride 102 (98-107) mmol/L Carbon Dioxide 26 (22-30) mmol/L Anion Gap 10 mmol/L BUN 15 (7-17) mg/dL Creatinine 0.81 (0.52-1.04) mg/dL Est GFR (CKD-EPI)AfAm >90 (>60 ml/min/1.73 sqM) Est GFR (CKD-EPI)NonAf >90 (>60 ml/min/1.73 sqM) Glucose 98 (74-99) mg/dL Calcium 9.9 (8.4-10.2) mg/dL Total Bilirubin 0.6 (0.2-1.3) mg/dL AST 27 (14-36) U/L ALT 30 (4-34) U/L Alkaline Phosphatase 121 (38-126) U/L Total Protein 7.4 (6.3-8.2) g/dL Albumin 4.5 (3.5-5.0) g/dL Lipase 49 (23-300) U/L Urine Color Colorless Urine Appearance Clear (Clear) Urine pH 5.5 (5.0-8.0) Ur Specific [place] 1.012 (1.001-1.035) Urine Protein Negative (Negative) Urine Glucose (UA) Negative (Negative) Urine Ketones Negative (Negative) Urine Blood Negative (Negative) Urine Nitrite Negative (Negative) Urine Bilirubin Negative (Negative) Urine Urobilinogen <2.0 (<2.0) mg/dL Ur Leukocyte Esterase Negative (Negative) Disposition Clinical Impression: Back pain Disposition: HOME SELF-CARE Condition: Good Instructions (If sedation given, give patient instructions): Back Pain (ED) Is patient prescribed a controlled substance at d/c from ED?: No Referrals: Mario Sellers [Primary Care Provider] - 1-2 days Time of Disposition: 01:45
[2023-05-25 00:11] LABS: Appearance,Urine Clear (Clear); Bilirubin,Urine Negative (Negative); Blood,Urine Negative (Negative); Color,Urine Colorless; Glucose,Urine (UA) Negative (Negative); Ketones,Urine Negative (Negative); Leukocyte Esterase,Urine Negative (Negative); Nitrite,Urine Negative (Negative); PH, Urine 5.5 (5.0-8.0); Protein,Urine Negative (Negative); Specific Gravity,Urine 1.012 (1.001-1.035); Urobilinogen,Urine <2.0 mg/dL (<2.0)
[2023-05-25 00:28] VITALS: RESP 16
[2023-05-25 01:17] LABS: ALT 30 U/L (4-34); AST 27 U/L (14-36); African American GFR (CKD) >90 (>60 ml/min/1.73 sqM); Albumin 4.5 g/dL (3.5-5.0); Alkaline Phosphatase 121 U/L (38-126); Anion Gap 10 mmol/L; Basophils % (A) 0 %; Blood Urea Nitrogen 15 mg/dL (7-17); Calcium 9.9 mg/dL (8.4-10.2); Carbon Dioxide 26 mmol/L (22-30); Chloride 102 mmol/L (98-107); Eosinophils % (A) 0 %; Glucose 98 mg/dL (74-99); HCT 34.9 % (34.0-46.0); HGB 11.8 gm/dL (11.4-16.0); Lipase 49 U/L (23-300); Lymphocytes # (A) 1.7 k/uL (1.0-4.8); Lymphocytes % (A) 38 %; MCH 30.9 pg (25.0-35.0); MCHC 33.8 g/dL (31.0-37.0); MCV 91.4 fL (80.0-100.0); Mean Platelet Volume 7.5; Monocytes # (A) 0.3 k/uL (0-1.0); Monocytes % (A) 5 %; Neutrophils # (A) 2.5 k/uL (1.3-7.7); Neutrophils % (A) 54 %; Non-African American GFR(CKD) >90 (>60 ml/min/1.73 sqM); Platelet Count 205 k/uL (150-450); Potassium 4.2 mmol/L (3.5-5.1); RBC 3.81 m/uL (3.80-5.40); RDW 13.3 % (11.5-15.5); Sodium 138 mmol/L (137-145); Total Bilirubin 0.6 mg/dL (0.2-1.3); Total Protein 7.4 g/dL (6.3-8.2); WBC 4.7 k/uL (3.8-10.6)
[2023-05-25 01:46] VITALS: BP 116/64; PULSE 101
== END 2023-05-25 02:24 | disposition home or self-care (01) ==
LOC: EC 22:14
DX: M54.9 Dorsalgia, unspecified (principal); K21.9 Gastro-esophageal reflux disease without esophagitis; F41.9 Anxiety disorder, unspecified; F32.A Depression, unspecified; Z79.899 Other long term (current) drug therapy; Z88.2 Allergy status to sulfonamides; Z88.0 Allergy status to penicillin; Z91.09 Other allergy status, other than to drugs and biological substances; Z88.1 Allergy status to other antibiotic agents; Z88.6 Allergy status to analgesic agent; Z88.8 Allergy status to other drugs, medicaments and biological substances; Z90.49 Acquired absence of other specified parts of digestive tract
CPT/HCPCS: 36415; 80053; 83690; 85025; 81003; 99284; 96374; 96375 ×2; J2405; J1170; J1885

== ENCOUNTER 2023-05-27 12:49 | Emergency (ER) | payer OTHER ==
[2023-05-27] MEDS ORDERED: SODIUM CHLORIDE 0.9% 1,000 ML IV ONE (13:38)
[2023-05-27] MEDS ORDERED: ONDANSETRON 4 MG/2 ML VIAL IVP STA (13:39)
[2023-05-27] MEDS ORDERED: HYDROmorphone 0.5 MG/0.5 ML SYRINGE IVP STA ×2 (13:40→16:07)
[2023-05-27 14:17] LABS: Appearance,Urine Clear (Clear); Bilirubin,Urine Negative (Negative); Blood,Urine Negative (Negative); Color,Urine Colorless; Glucose,Urine (UA) Negative (Negative); Ketones,Urine Negative (Negative); Leukocyte Esterase,Urine Negative (Negative); Nitrite,Urine Negative (Negative); PH, Urine 6.5 (5.0-8.0); Protein,Urine Negative (Negative); Specific Gravity,Urine 1.008 (1.001-1.035); Urobilinogen,Urine <2.0 mg/dL (<2.0)
--- NOTE | 2023-05-27 14:37 | ED ---
General Adult HPI - General Chief complaint: Back Pain/Injury Stated complaint: back pain Time Seen by Provider: 05/27/23 13:12 Source: patient, RN notes reviewed Mode of arrival: ambulatory Limitations: no limitations - History of Present Illness Initial comments: 32-year-old female with no significant past medical history presents the emergency department with a chief complaint of left flank pain. Patient reports that she was here 2 days for the same where she had a full workup which was essentially unremarkable. She reports that initially the pain was improved however it has returned and is worse. She denies any known fevers or chills, nausea, vomiting, dysuria, hematuria. Patient does report a history of kidney stones. - Related Data Home Medications Medication Instructions Recorded Confirmed Omeprazole 20 mg PO BID 03/07/22 03/17/23 Albuterol Inhaler [Ventolin Hfa 2 puff INHALATION RT-Q6H PRN 02/13/23 03/17/23 Inhaler] Escitalopram [Lexapro] 10 mg PO HS 03/17/23 03/17/23 Meloxicam [Mobic] 7.5 mg PO BID 03/17/23 03/17/23 Ondansetron Odt [Zofran Odt] 4 mg PO Q12HR PRN 03/17/23 03/17/23 Orphenadrine Citrate [Orphenadrine 100 mg PO BID 03/17/23 03/17/23 Citrate ER] Previous Rx's Medication Instructions Recorded Cyclobenzaprine [Flexeril] 5 mg PO TID PRN #15 tablet 05/27/23 Allergies Allergy/AdvReac Type Severity Reaction Status Date / Time sulfamethoxazole Allergy Severe Anaphylaxis Verified 05/27/23 13:00 [From Bactrim] trimethoprim [From Bactrim] Allergy Severe Anaphylaxis Verified 05/27/23 13:00 adhesive tape Allergy Rash/Hives Verified 05/27/23 13:00 aloe vera Allergy Rash/Hives Verified 05/27/23 13:00 azithromycin Allergy Rash/Hives Verified 05/27/23 13:00 cephalexin Allergy Rash/Hives Verified 05/27/23 13:00 metronidazole [From Flagyl] Allergy Rash/Hives Verified 05/27/23 13:00 Penicillins Allergy Rash/Hives Verified 05/27/23 13:00 alprazolam [From Xanax] AdvReac MAKES Verified 05/27/23 13:00 PARANOID dicyclomine [From Bentyl] AdvReac constipatio Verified 05/27/23 13:00 n Review of Systems ROS Statement: Those systems with pertinent positive or pertinent negative responses have been documented in the HPI. ROS Other: All systems not noted in ROS Statement are negative. Past Medical History Past Medical History: Blood Disorder, GERD/Reflux Additional Past Medical History / Comment(s): Endometriosis, polycystic ovarian syndrome. IRON DEFICIENCY ANEMIA. Stomach Ulcer. ovarian cyst History of Any Multi-Drug Resistant Organisms: None Reported Past Surgical History: Ablation, Section, Cholecystectomy, Hernia Repair, Hysterectomy, Tubal Ligation, Uterine Ablation Additional Past Surgical History / Comment(s): Laparoscopy X2, Section X3. Right ovary and right tube removed - 2019. cyst removed from chest. AUG 2020 - ADHESION REMOVAL FROM PAST . Vaginal. pelvic biopsy 05/11. PCOS Past Anesthesia/Blood Transfusion Reactions: No Reported Reaction Past Psychological History: Anxiety, Depression Smoking Status: Never smoker Past Alcohol Use History: None Reported Past Drug Use History: None Reported - Past Family History Mother Family Medical History: Hyperlipidemia Additional Family Medical History / Comment(s): Depression and anxiety. General Exam - General Exam Comments Initial Comments: General: Alert, in no acute distress Head: atraumatic normocephalic. Eyes PERRL, EOMI intact, mucous membranes moist Respiratory: Lungs clear to auscultation bilaterally Cardiovascular: Heart rate regular rate and rhythm Abdominal: Soft without guarding or rebound, no CVA tenderness Extremities: Normal inspection with full range of motion and normal capillary refill Neuroogic: alert and oriented 3, CN II-XII intact, able to ambulate with steady gait Skin: warm dry and intact with normal color Limitations: no limitations Course Vital Signs 05/27/23 05/27/23 12:55 16:22 Temperature 98.2 F 98.6 F Pulse Rate 89 79 Respiratory 17 18 Rate Blood Pressure 144/99 122/76 O2 Sat by Pulse 100 99 Oximetry - Reevaluation(s) Reevaluation #1: 05/27/23 16:12 Patient reevaluated. Patient requesting more pain medications. Updated on results. Agreeable with plan for discharge home. Medical Decision Making - Medical Decision Making Was pt. sent in by a medical professional or institution (Dr., PA, COSMETICIAN, urgent care, hospital, or fdc...) When possible be specific @ -[No] Did you speak to anyone other than the patient for history (EMS, parent, family, police, friend...)? What history was obtained from this source @ -[No] Did you review nursing and triage notes (agree or disagree)? Why? @ -[I reviewed and agree with nursing and triage notes] Were old charts reviewed (outside hosp., previous admission, EMS record, old EKG, old radiological studies, urgent care reports/EKG's, fdc records)? Report findings @ -Chart reviewed from 05/25/2023. Differential Diagnosis (chest pain, altered mental status, abdominal pain women, abdominal pain men, vaginal bleeding, weakness, fever, dyspnea, syncope, headache, dizziness, GI bleed, back pain, seizure, CVA, palpatations, mental health, musculoskeletal)? @ -[not applicable] EKG interpreted by me (3pts min.). @ -[As above] X-rays interpreted by me (1pt min.). @ -KUB x-ray negative for any nephrolithiasis or marked stool burden. CT interpreted by me (1pt min.). @ -[None done] U/S interpreted by me (1pt. min.). @ -[None done] What testing was considered but not performed or refused? (CT, X-rays, U/S, labs)? Why? @ -[None] What meds were considered but not given or refused? Why? @ -[None] Did you discuss the management of the patient with other professionals (professionals i.e. ANALI Leroy, COSMETICIAN, lab, RT, psych nurse, forensic social worker, special needs tutor, teacher, safety officer, counter caser)? Give summary @ -[No] Was smoking cessation discussed for >3mins.? @ -[No] Was critical care preformed (if so, how long)? @ -[No] Were there social determinants of health that impacted care today? How? ( Homelessness, low income, unemployed, alcoholism, drug addiction, transportation, low edu. Level, literacy, decrease access to med. care, fci, rehab)? @ -[No] Was there de-escalation of care discussed even if they declined (Discuss DNR or withdrawal of care, Hospice)? DNR status @ -[No] What co-morbidities impacted this encounter? (DM, HTN, Smoking, COPD, CAD, Cancer, CVA, ARF, Chemo, Hep., AIDS, mental health diagnosis, sleep apnea, morbid obesity)? @ -[None] Was patient admitted / discharged? Hospital course, mention meds given and route, prescriptions, significant lab abnormalities, going to OR and other pertinent info. @ -Discharged. This is a pleasant 32-year-old female presents the emergency department with left flank/back pain. Patient had a thorough history and physical exam performed. Physical exam is essentially unremarkable. Heart rate regular rate and rhythm, lungs are auscultation bilaterally abdomen soft nontender. No CVA tenderness. Vital signs stable. Patient had laboratory and imaging studies which were unremarkable. She is provided 1 L IV fluids and Dilaudid was symptomatically improvement.. I discussed results in detail with the patient verbalized understanding all questions were addressed. Patient provided prescription for Flexeril and recommend close follow-up with PCP in 1-2 days. Return precautions were discussed. Patient discharged in stable condition. Discussed with Dr. Anamaria CHAVEZP who agrees with plan of care Undiagnosed new problem with uncertain prognosis? @ -[No] Drug Therapy requiring intensive monitoring for toxicity (Heparin, Nitro, Insulin, Cardizem)? @ -[No] Were any procedures done? @ -[No] Diagnosis/symptom? @ -Back Pain Acute, or Chronic, or Acute on Chronic? @ -Acute Uncomplicated (without systemic symptoms) or Complicated (systemic symptoms)? @ -Uncomplicated Side effects of treatment? @ -[No] Exacerbation, Progression, or Severe Exacerbation? @ -[No] Poses a threat to life or bodily function? How? (Chest pain, [place], [place], pneumonia, PE, COPD, DKA, ARF, appy, cholecystitis, CVA, Diverticulitis, Homicidal, Suicidal, threat to staff... and all critical care pts) @ -Low likelihood - Lab Data Result diagrams: 05/27/23 13:38 05/27/23 14:49 Lab Results 05/27/23 05/27/23 05/27/23 Range/Units 13:38 14:03 14:49 WBC 4.0 (3.8-10.6) k/uL RBC 3.65 L (3.80-5.40) m/uL Hgb 11.6 (11.4-16.0) gm/dL Hct 33.2 L (34.0-46.0) % MCV 91.2 (80.0-100.0) fL MCH 31.8 (25.0-35.0) pg MCHC 34.9 (31.0-37.0) g/dL RDW 13.2 (11.5-15.5) % Plt Count 197 (150-450) k/uL MPV 7.5 Neutrophils % 60 % Lymphocytes % 32 % Monocytes % 6 % Eosinophils % 1 % Basophils % 0 % Neutrophils # 2.4 (1.3-7.7) k/uL Lymphocytes # 1.3 (1.0-4.8) k/uL Monocytes # 0.2 (0-1.0) k/uL Eosinophils # 0.0 (0-0.7) k/uL Basophils # 0.0 (0-0.2) k/uL Sodium 141 (137-145) mmol/L Potassium 3.2 L (3.5-5.1) mmol/L Chloride 115 H (98-107) mmol/L Carbon Dioxide 19 L (22-30) mmol/L Anion Gap 7 mmol/L BUN 12 (7-17) mg/dL Creatinine 0.51 L (0.52-1.04) mg/dL Est GFR (CKD-EPI)AfAm >90 (>60 ml/min/1.73 sqM) Est GFR (CKD-EPI)NonAf >90 (>60 ml/min/1.73 sqM) Glucose 69 L (74-99) mg/dL Calcium 7.0 L (8.4-10.2) mg/dL Total Bilirubin 0.5 (0.2-1.3) mg/dL AST 24 (14-36) U/L ALT 21 (4-34) U/L Alkaline Phosphatase 78 (38-126) U/L Total Protein 5.3 L (6.3-8.2) g/dL Albumin 2.8 L (3.5-5.0) g/dL Urine Color Colorless Urine Appearance Clear (Clear) Urine pH 6.5 (5.0-8.0) Ur Specific [place] 1.008 (1.001-1.035) Urine Protein Negative (Negative) Urine Glucose (UA) Negative (Negative) Urine Ketones Negative (Negative) Urine Blood Negative (Negative) Urine Nitrite Negative (Negative) Urine Bilirubin Negative (Negative) Urine Urobilinogen <2.0 (<2.0) mg/dL Ur Leukocyte Esterase Negative (Negative) Disposition Clinical Impression: Back pain, Mechanical back pain Disposition: HOME SELF-CARE Condition: Stable Instructions (If sedation given, give patient instructions): Acute Low Back Pain (ED) Additional Instructions: Please watch your symptoms closely Please return to the nearest emergency department if symptoms worsen or persist Prescriptions: Cyclobenzaprine [Flexeril] 5 mg PO TID PRN #15 tablet PRN Reason: Muscle Spasm Is patient prescribed a controlled substance at d/c from ED?: No Referrals: Mario Sellers [Primary Care Provider] - 1-2 days Time of Disposition: 16:07
[2023-05-27 14:54] LABS: Basophils % (A) 0 %; Eosinophils % (A) 1 %; HCT 33.2 % (34.0-46.0); HGB 11.6 gm/dL (11.4-16.0); Lymphocytes # (A) 1.3 k/uL (1.0-4.8); Lymphocytes % (A) 32 %; MCH 31.8 pg (25.0-35.0); MCHC 34.9 g/dL (31.0-37.0); MCV 91.2 fL (80.0-100.0); Mean Platelet Volume 7.5; Monocytes # (A) 0.2 k/uL (0-1.0); Monocytes % (A) 6 %; Neutrophils # (A) 2.4 k/uL (1.3-7.7); Neutrophils % (A) 60 %; Platelet Count 197 k/uL (150-450); RBC 3.65 m/uL (3.80-5.40); RDW 13.2 % (11.5-15.5)
[2023-05-27 15:05] LABS: ALT 21 U/L (4-34); AST 24 U/L (14-36); African American GFR (CKD) >90 (>60 ml/min/1.73 sqM); Albumin 2.8 g/dL (3.5-5.0); Alkaline Phosphatase 78 U/L (38-126); Anion Gap 7 mmol/L; Blood Urea Nitrogen 12 mg/dL (7-17); Carbon Dioxide 19 mmol/L (22-30); Chloride 115 mmol/L (98-107); Glucose 69 mg/dL (74-99); Non-African American GFR(CKD) >90 (>60 ml/min/1.73 sqM); Potassium 3.2 mmol/L (3.5-5.1); Sodium 141 mmol/L (137-145); Total Bilirubin 0.5 mg/dL (0.2-1.3); Total Protein 5.3 g/dL (6.3-8.2)
--- NOTE | 2023-05-27 15:48 | XR ---
EXAMINATION TYPE: XR KUB DATE OF EXAM: 05/27/2023 3:16 PM CLINICAL INDICATION:Female, 32 years old with history of flank pain; COMPARISON: None. TECHNIQUE: One radiographic view of the abdomen was obtained. FINDINGS: The bowel gas pattern is nonspecific without dilated loops of small or large bowel. There i s no evidence for organomegaly or pneumoperitoneum. The osseous structures are intact. No abnormal calcifications are present. Fecal material and gas are demonstrated throughout the colon and rectum. Right upper quadrant: Discectomy clips. Surgical clip in the pelvis could represent tubal ligation c lips. Cholecystectomy clip. IMPRESSION: No renal calculi definitively visualized. Nonspecific bowel gas pattern without radiographic evidence for acute process.
[2023-05-27] MEDS ORDERED: KETOROLAC 15 MG/ML 1 ML VIAL IVP STA (16:12)
[2023-05-27 16:26] VITALS: BP 122/76; PULSE 79; RESP 18; TEMP 98.6
== END 2023-05-27 16:28 | disposition home or self-care (01) ==
LOC: EC 12:49
DX: M54.9 Dorsalgia, unspecified (principal); K21.9 Gastro-esophageal reflux disease without esophagitis; F32.A Depression, unspecified; F41.9 Anxiety disorder, unspecified; Z79.899 Other long term (current) drug therapy; Z88.0 Allergy status to penicillin; Z88.1 Allergy status to other antibiotic agents; Z88.2 Allergy status to sulfonamides; Z91.09 Other allergy status, other than to drugs and biological substances; Z88.8 Allergy status to other drugs, medicaments and biological substances; Z90.49 Acquired absence of other specified parts of digestive tract
CPT/HCPCS: 36415; 80053; 85025; 81003; 74018; 99284; 96374; 96375 ×2; 96376; 96361; J2405; J1885; J1170

== ENCOUNTER 2023-06-01 20:59 | Emergency (ER) | payer OTHER ==
[2023-06-01 21:11] VITALS: RESP 16
[2023-06-01] MEDS ORDERED: KETOROLAC 15 MG/ML 1 ML VIAL IVP STA (21:37)
[2023-06-01] MEDS ORDERED: SODIUM CHLORIDE 0.9% 500 ML 500 ML IV STA (21:37)
--- NOTE | 2023-06-01 21:43 | ED ---
Abdominal Pain HPI - General Chief Complaint: Abdominal Pain Stated Complaint: Diarrhea Time Seen by Provider: 06/01/23 21:12 Source: patient Mode of arrival: ambulatory Limitations: no limitations - History of Present Illness MD Complaint: abdominal pain, other Onset/Timin -: week(s) (Area) Location: RLQ Radiation: none Severity: moderate Quality: cramping, aching Consistency: constant Improves With: nothing Worsens With: nothing Associated Symptoms: diarrhea - Related Data Home Medications Medication Instructions Recorded Confirmed Omeprazole 20 mg PO BID 03/07/22 03/17/23 Albuterol Inhaler [Ventolin Hfa 2 puff INHALATION RT-Q6H PRN 02/13/23 03/17/23 Inhaler] Escitalopram [Lexapro] 10 mg PO HS 03/17/23 03/17/23 Meloxicam [Mobic] 7.5 mg PO BID 03/17/23 03/17/23 Ondansetron Odt [Zofran Odt] 4 mg PO Q12HR PRN 03/17/23 03/17/23 Orphenadrine Citrate [Orphenadrine 100 mg PO BID 03/17/23 03/17/23 Citrate ER] Previous Rx's Medication Instructions Recorded Cyclobenzaprine [Flexeril] 5 mg PO TID PRN #15 tablet 05/27/23 Allergies Allergy/AdvReac Type Severity Reaction Status Date / Time sulfamethoxazole Allergy Severe Anaphylaxis Verified 05/27/23 13:00 [From Bactrim] trimethoprim [From Bactrim] Allergy Severe Anaphylaxis Verified 05/27/23 13:00 adhesive tape Allergy Rash/Hives Verified 05/27/23 13:00 aloe vera Allergy Rash/Hives Verified 05/27/23 13:00 azithromycin Allergy Rash/Hives Verified 05/27/23 13:00 cephalexin Allergy Rash/Hives Verified 05/27/23 13:00 metronidazole [From Flagyl] Allergy Rash/Hives Verified 05/27/23 13:00 Penicillins Allergy Rash/Hives Verified 05/27/23 13:00 alprazolam [From Xanax] AdvReac MAKES Verified 05/27/23 13:00 PARANOID dicyclomine [From Bentyl] AdvReac constipatio Verified 05/27/23 13:00 n Review of Systems ROS Statement: Those systems with pertinent positive or pertinent negative responses have been documented in the HPI. ROS Other: All systems not noted in ROS Statement are negative. Constitutional: Denies: fever, chills Respiratory: Denies: cough, dyspnea Cardiovascular: Denies: chest pain, palpitations, edema Gastrointestinal: Reports: abdominal pain, nausea, diarrhea. Denies: vomiting, constipation, melena, hematochezia Genitourinary: Denies: dysuria, hematuria Musculoskeletal: Denies: back pain Skin: Denies: rash Neurological: Denies: headache, weakness Past Medical History Past Medical History: Blood Disorder, GERD/Reflux Additional Past Medical History / Comment(s): Endometriosis, polycystic ovarian syndrome. IRON DEFICIENCY ANEMIA. Stomach Ulcer. ovarian cyst History of Any Multi-Drug Resistant Organisms: None Reported Past Surgical History: Ablation, Section, Cholecystectomy, Hernia Repair, Hysterectomy, Tubal Ligation, Uterine Ablation Additional Past Surgical History / Comment(s): Laparoscopy X2, Section X3. Right ovary and right tube removed - 2019. cyst removed from chest. AUG 2020 - ADHESION REMOVAL FROM PAST . Vaginal. pelvic biopsy 05/11. PCOS Past Anesthesia/Blood Transfusion Reactions: No Reported Reaction Past Psychological History: Anxiety, Depression Smoking Status: Never smoker Past Alcohol Use History: None Reported Past Drug Use History: None Reported - Past Family History Mother Family Medical History: Hyperlipidemia Additional Family Medical History / Comment(s): Depression and anxiety. General Exam Limitations: no limitations General appearance: alert, in no apparent distress Head exam: Present: atraumatic, normocephalic Eye exam: Present: normal appearance. Absent: scleral icterus, conjunctival injection ENT exam: Present: normal oropharynx Neck exam: Present: normal inspection Respiratory exam: Present: normal lung sounds bilaterally. Absent: respiratory distress, wheezes, rales, rhonchi, stridor Cardiovascular Exam: Present: regular rate, normal rhythm, normal heart sounds. Absent: systolic murmur, diastolic murmur, rubs, gallop GI/Abdominal exam: Present: soft. Absent: distended, tenderness, guarding, rebound, rigid, mass Extremities exam: Present: normal inspection, normal capillary refill. Absent: pedal edema, calf tenderness Back exam: Present: normal inspection. Absent: CVA tenderness (R), CVA tenderness (L) Neurological exam: Present: alert Skin exam: Present: warm, dry, intact, normal color. Absent: rash Course Vital Signs 06/01/23 06/02/23 21:04 00:12 Temperature 98.2 F 98.3 F Pulse Rate 102 H 80 Respiratory 16 16 Rate Blood Pressure 139/78 108/61 O2 Sat by Pulse 98 97 Oximetry Medical Decision Making - Medical Decision Making Was pt. sent in by a medical professional or institution (, PA, CANDLE MAKER, urgent care, hospital, or penitentiary...) When possible be specific @ -[No] Did you speak to anyone other than the patient for history (EMS, parent, family, police, friend...)? What history was obtained from this source @ -[No] Did you review nursing and triage notes (agree or disagree)? Why? @ -[I reviewed and agree with nursing and triage notes] Were old charts reviewed (outside hosp., previous admission, EMS record, old EK G, old radiological studies, urgent care reports/EKG's, penitentiary records)? Report findings @ -[No old charts were reviewed] Differential Diagnosis (chest pain, altered mental status, abdominal pain women, abdominal pain men, vaginal bleeding, weakness, fever, dyspnea, syncope, headache, dizziness, GI bleed, back pain, seizure, CVA, palpatations, mental he alth, musculoskeletal)? @ -[Differential Abdominal Pain Women: Appendicitis, Cholecystitis, diverticulosis, ischemic bowel, pancreatitis, hepatitis, UTI, gastroenteritis, AAA, incarcerated hernia, bowel obstruction, constipation, inflammatory bowel, hepatitis, peptic ulcer disease, splenic infarction, perforated viscus, vulvitis, ovarian torsion, PID, kidney stone, placenta abruption, this is not meant to be an all-inclusive list EKG interpreted by me (3pts min.). @ -[As above] X-rays interpreted by me (1pt min.). @ -[None done] CT interpreted by me (1pt min.). @ -[None done] U/S interpreted by me (1pt. min.). @ -[None done] What testing was considered but not performed or refused? (CT, X-rays, U/S, labs)? Why? @ -[None] What meds were considered but not given or refused? Why? @ -[None] Did you discuss the management of the patient with other professionals (professionals i.e. , PA, CANDLE MAKER, lab, RT, psych nurse, social contact worker, cafe server, teacher, assault amphibious vehicle officer, oil field caser)? Give summary @ -[No] Was smoking cessation discussed for >3mins.? @ -[No] Was critical care preformed (if so, how long)? @ -[No] Were there social determinants of health that impacted care today? How? (Homelessness, low income, unemployed, alcoholism, drug addiction, transportation, low edu. Level, literacy, decrease access to med. care, fdc, rehab)? @ -[No] Was there de-escalation of care discussed even if they declined (Discuss DNR or withdrawal of care, Hospice)? DNR status @ -[No] What co-morbidities impacted this encounter? (DM, HTN, Smoking, COPD, CAD, Cancer, CVA, ARF, Chemo, Hep., AIDS, mental health diagnosis, sleep apnea, morbid obesity)? @ -[None] Was patient admitted / discharged? Hospital course, mention meds given and route, prescriptions, significant lab abnormalities, going to OR and other pertinent info. @ -[Patient is a 32 -year-old woman with abdominal pain and diarrhea. The exam is benign. The patient's workup not suggestive of serious illness at this point. The appropriate further care and follow-up are discussed as well as return parameters. Undiagnosed new problem with uncertain prognosis? @ -[No] Drug Therapy requiring intensive monitoring for toxicity (Heparin, Nitro, Insulin, Cardizem)? @ -[No] Were any procedures done? @ -[No] Diagnosis/symptom? @ -[Acute diarrhea Acute, or Chronic, or Acute on Chronic? @ -[Acute Uncomplicated (without systemic symptoms) or Complicated (systemic symptoms)? @ -[Uncomplicated Side effects of treatment? @ -[No] Exacerbation, Progression, or Severe Exacerbation? @ -[No] Poses a threat to life or bodily function? How? (Chest pain, [place], [place], pneumonia, PE, COPD, DKA, ARF, appy, cholecystitis, CVA, Diverticulitis, Homicidal, Suicidal, threat to staff... and all critical care pts) @ -[No] - Lab Data Result diagrams: 06/01/23 22:23 06/01/23 22:23 Lab Results 06/01/23 06/01/2323 Range/Units 22:23 22:23 22:23 WBC 5.1 (3.8-10.6) k/uL RBC 3.95 (3.80-5.40) m/uL Hgb 12.6 (11.4-16.0) gm/dL Hct 36.0 (34.0-46.0) % MCV 91.0 (80.0-100.0) fL MCH 31.7 (25.0-35.0) pg MCHC 34.9 (31.0-37.0) g/dL RDW 13.1 (11.5-15.5) % Plt Count 202 (150-450) k/uL MPV 7.5 Neutrophils % 59 % Lymphocytes % 34 % Monocytes % 5 % Eosinophils % 1 % Basophils % 0 % Neutrophils # 3.0 (1.3-7.7) k/uL Lymphocytes # 1.7 (1.0-4.8) k/uL Monocytes # 0.3 (0-1.0) k/uL Eosinophils # 0.0 (0-0.7) k/uL Basophils # 0.0 (0-0.2) k/uL Sodium (137-145) mmol/L Potassium (3.5-5.1) mmol/L Chloride (98-107) mmol/L Carbon Dioxide (22-30) mmol/L Anion Gap mmol/L BUN (7-17) mg/dL Creatinine (0.52-1.04) mg/dL Est GFR (CKD-EPI)AfAm (>60 ml/min/1.73 sqM) Est GFR (CKD-EPI)NonAf (>60 ml/min/1.73 sqM) Glucose (74-99) mg/dL Calcium (8.4-10.2) mg/dL Total Bilirubin (0.2-1.3) mg/dL AST (14-36) U/L ALT (4-34) U/L Alkaline Phosphatase (38-126) U/L C-Reactive Protein (<1.0) mg/dL Total Protein (6.3-8.2) g/dL Albumin (3.5-5.0) g/dL Urine Color Light Yellow Urine Appearance Clear (Clear) Urine pH 5.5 (5.0-8.0) Ur Specific [place] 1.013 (1.001-1.035) Urine Protein Negative (Negative) Urine Glucose (UA) Negative (Negative) Urine Ketones Negative (Negative) Urine Blood Negative (Negative) Urine Nitrite Negative (Negative) Urine Bilirubin Negative (Negative) Urine Urobilinogen <2.0 (<2.0) mg/dL Ur Leukocyte Esterase Negative (Negative) Urine HCG, Qual Not Detected (Not Detectd) 06/01/23 Range/Units 22:23 WBC (3.8-10.6) k/uL RBC (3.80-5.40) m/uL Hgb (11.4-16.0) gm/dL Hct (34.0-46.0) % MCV (80.0-100.0) fL MCH (25.0-35.0) pg MCHC (31.0-37.0) g/dL RDW (11.5-15.5) % Plt Count (150-450) k/uL MPV Neutrophils % % Lymphocytes % % Monocytes % % Eosinophils % % Basophils % % Neutrophils # (1.3-7.7) k/uL Lymphocytes # (1.0-4.8) k/uL Monocytes # (0-1.0) k/uL Eosinophils # (0-0.7) k/uL Basophils # (0-0.2) k/uL Sodium 139 (137-145) mmol/L Potassium 3.9 (3.5-5.1) mmol/L Chloride 100 (98-107) mmol/L Carbon Dioxide 26 (22-30) mmol/L Anion Gap 13 mmol/L BUN 13 (7-17) mg/dL Creatinine 0.79 (0.52-1.04) mg/dL Est GFR (CKD-EPI)AfAm >90 (>60 ml/min/1.73 sqM) Est GFR (CKD-EPI)NonAf >90 (>60 ml/min/1.73 sqM) Glucose 89 (74-99) mg/dL Calcium 9.8 (8.4-10.2) mg/dL Total Bilirubin 0.8 (0.2-1.3) mg/dL AST 27 (14-36) U/L ALT 22 (4-34) U/L Alkaline Phosphatase 121 (38-126) U/L C-Reactive Protein 1.1 H (<1.0) mg/dL Total Protein 7.6 (6.3-8.2) g/dL Albumin 4.5 (3.5-5.0) g/dL Urine Color Urine Appearance (Clear) Urine pH (5.0-8.0) Ur Specific [place] (1.001-1.035) Urine Protein (Negative) Urine Glucose (UA) (Negative) Urine Ketones (Negative) Urine Blood (Negative) Urine Nitrite (Negative) Urine Bilirubin (Negative) Urine Urobilinogen (<2.0) mg/dL Ur Leukocyte Esterase (Negative) Urine HCG, Qual (Not Detectd) Disposition Clinical Impression: Diarrhea Disposition: HOME SELF-CARE Condition: Good Instructions (If sedation given, give patient instructions): Acute Diarrhea (ED) Is patient prescribed a controlled substance at d/c from ED?: No Referrals: Mario Sellers [Primary Care Provider] - 1-2 days
[2023-06-01 22:36] LABS: Basophils % (A) 0 %; Eosinophils % (A) 1 %; HGB 12.6 gm/dL (11.4-16.0); Lymphocytes # (A) 1.7 k/uL (1.0-4.8); Lymphocytes % (A) 34 %; MCH 31.7 pg (25.0-35.0); MCHC 34.9 g/dL (31.0-37.0); Mean Platelet Volume 7.5; Monocytes # (A) 0.3 k/uL (0-1.0); Monocytes % (A) 5 %; Neutrophils % (A) 59 %; Platelet Count 202 k/uL (150-450); RBC 3.95 m/uL (3.80-5.40); RDW 13.1 % (11.5-15.5); WBC 5.1 k/uL (3.8-10.6)
[2023-06-01] MEDS ORDERED: ONDANSETRON 4 MG/2 ML VIAL IVP STA (22:45)
[2023-06-01 22:49] LABS: ALT 22 U/L (4-34); AST 27 U/L (14-36); African American GFR (CKD) >90 (>60 ml/min/1.73 sqM); Albumin 4.5 g/dL (3.5-5.0); Alkaline Phosphatase 121 U/L (38-126); Anion Gap 13 mmol/L; Blood Urea Nitrogen 13 mg/dL (7-17); C Reactive Protein 1.1 mg/dL (<1.0); Calcium 9.8 mg/dL (8.4-10.2); Carbon Dioxide 26 mmol/L (22-30); Chloride 100 mmol/L (98-107); Glucose 89 mg/dL (74-99); Non-African American GFR(CKD) >90 (>60 ml/min/1.73 sqM); Potassium 3.9 mmol/L (3.5-5.1); Sodium 139 mmol/L (137-145); Total Bilirubin 0.8 mg/dL (0.2-1.3); Total Protein 7.6 g/dL (6.3-8.2)
[2023-06-01 23:00] LABS: Appearance,Urine Clear (Clear); Bilirubin,Urine Negative (Negative); Blood,Urine Negative (Negative); Color,Urine Light Yellow; Glucose,Urine (UA) Negative (Negative); Ketones,Urine Negative (Negative); Leukocyte Esterase,Urine Negative (Negative); Nitrite,Urine Negative (Negative); PH, Urine 5.5 (5.0-8.0); Protein,Urine Negative (Negative); Specific Gravity,Urine 1.013 (1.001-1.035); Urobilinogen,Urine <2.0 mg/dL (<2.0)
[2023-06-01] MEDS ORDERED: MORPHINE SULFATE 4 MG/ML SYRINGE IV STA (23:18)
[2023-06-01] MEDS ORDERED: HYDROcodone/APAP 5-325MG 1 EACH TAB PO STA (23:54)
[2023-06-02 00:21] VITALS: BP 108/61; PULSE 80; TEMP 98.3
== END 2023-06-02 00:16 | disposition home or self-care (01) ==
LOC: EC 20:59
DX: R19.7 Diarrhea, unspecified (principal); K21.9 Gastro-esophageal reflux disease without esophagitis; F41.9 Anxiety disorder, unspecified; F32.A Depression, unspecified; Z79.899 Other long term (current) drug therapy; Z88.2 Allergy status to sulfonamides; Z88.0 Allergy status to penicillin; Z91.09 Other allergy status, other than to drugs and biological substances; Z88.8 Allergy status to other drugs, medicaments and biological substances; Z88.1 Allergy status to other antibiotic agents
CPT/HCPCS: 36415; 80053; 85025; 86140; 81003; 81025; 99284; 96374; 96375 ×2; J2270; J2405; J1885

== ENCOUNTER 2023-07-08 00:02 | Emergency (ER) | payer OTHER ==
[2023-07-08 00:18] VITALS: RESP 18; TEMP 98.5
--- NOTE | 2023-07-08 00:48 | ED ---
Abdominal Pain HPI - General Chief Complaint: Abdominal Pain Stated Complaint: Pain in the Pelvic region Time Seen by Provider: 07/08/23 00:23 Source: patient, RN notes reviewed Mode of arrival: ambulatory Limitations: no limitations - History of Present Illness Initial Comments: 33-year-old female presents emergency Department with chief complaint of ab dominal pain. Patient has chronic abdominal issues. Patient states that she had issues with her IBS or recent states that she feels like she is having endometriosis pain. She's had a prior hysterectomy including ovaries removed. Patient denies any fever or chills no dysuria no hematuria patient states that she some Motrin for this. - Related Data Home Medications Medication Instructions Recorded Confirmed Omeprazole 20 mg PO BID 03/07/22 03/17/23 Albuterol Inhaler [Ventolin Hfa 2 puff INHALATION RT-Q6H PRN 02/13/23 03/17/23 Inhaler] Escitalopram [Lexapro] 10 mg PO HS 03/17/23 03/17/23 Meloxicam [Mobic] 7.5 mg PO BID 03/17/23 03/17/23 Ondansetron Odt [Zofran Odt] 4 mg PO Q12HR PRN 03/17/23 03/17/23 Orphenadrine Citrate [Orphenadrine 100 mg PO BID 03/17/23 03/17/23 Citrate ER] Previous Rx's Medication Instructions Recorded Cyclobenzaprine [Flexeril] 5 mg PO TID PRN #15 tablet 05/27/23 Allergies Allergy/AdvReac Type Severity Reaction Status Date / Time sulfamethoxazole Allergy Severe Anaphylaxis Verified 07/08/23 00:12 [From Bactrim] trimethoprim [From Bactrim] Allergy Severe Anaphylaxis Verified 07/08/23 00:12 adhesive tape Allergy Rash/Hives Verified 07/08/23 00:12 aloe vera Allergy Rash/Hives Verified 07/08/23 00:12 azithromycin Allergy Rash/Hives Verified 07/08/23 00:12 cephalexin Allergy Rash/Hives Verified 07/08/23 00:12 metronidazole [From Flagyl] Allergy Rash/Hives Verified 07/08/23 00:12 Penicillins Allergy Rash/Hives Verified 07/08/23 00:12 alprazolam [From Xanax] AdvReac MAKES Verified 07/08/23 00:12 PARANOID dicyclomine [From Bentyl] AdvReac constipatio Verified 07/08/23 00:12 n Review of Systems ROS Statement: Those systems with pertinent positive or pertinent negative responses have been documented in the HPI. ROS Other: All systems not noted in ROS Statement are negative. Past Medical History Past Medical History: Blood Disorder, GERD/Reflux Additional Past Medical History / Comment(s): Endometriosis, polycystic ovarian syndrome. IRON DEFICIENCY ANEMIA. Stomach Ulcer. ovarian cyst History of Any Multi-Drug Resistant Organisms: None Reported Past Surgical History: Ablation, Section, Cholecystectomy, Hernia Repair, Hysterectomy, Tubal Ligation, Uterine Ablation Additional Past Surgical History / Comment(s): Laparoscopy X2, Section X3. Right ovary and right tube removed - 2019. cyst removed from chest. AUG 2020 - ADHESION REMOVAL FROM PAST . Vaginal. pelvic biopsy 05/11. PCOS Past Anesthesia/Blood Transfusion Reactions: No Reported Reaction Past Psychological History: Anxiety, Depression Smoking Status: Never smoker Past Alcohol Use History: None Reported Past Drug Use History: None Reported - Past Family History Mother Family Medical History: Hyperlipidemia Additional Family Medical History / Comment(s): Depression and anxiety. General Exam Limitations: no limitations General appearance: alert, in no apparent distress Head exam: Present: atraumatic, normocephalic, normal inspection Eye exam: Present: normal appearance, PERRL, EOMI. Absent: scleral icterus, conjunctival injection, periorbital swelling Respiratory exam: Present: normal lung sounds bilaterally. Absent: respiratory distress, wheezes, rales, rhonchi, stridor Cardiovascular Exam: Present: regular rate, normal rhythm, normal heart sounds. Absent: systolic murmur, diastolic murmur, rubs, gallop, clicks GI/Abdominal exam: Present: soft, tenderness, normal bowel sounds. Absent: distended, guarding, rebound, rigid Back exam: Absent: CVA tenderness (R), CVA tenderness (L) Neurological exam: Present: alert Course Vital Signs 07/08/23 00:12 Temperature 98.5 F Pulse Rate 90 Respiratory 18 Rate Blood Pressure 130/88 O2 Sat by Pulse 98 Oximetry Medical Decision Making - Medical Decision Making Was pt. sent in by a medical professional or institution (, PA, GLASS DRILLER, urgent care, hospital, or half-way...) When possible be specific @ -No Did you speak to anyone other than the patient for history (EMS, parent, family, police, friend...)? What history was obtained from this source @ -No Did you review nursing and triage notes (agree or disagree)? Why? @ -I reviewed and agree with nursing and triage notes Were old charts reviewed (outside hosp., previous admission, EMS record, old EKG, old radiological studies, urgent care reports/EKG's, half-way records)? Report findings @ -Review prior charts including labs, imaging Differential Diagnosis (chest pain, altered mental status, abdominal pain women, abdominal pain men, vaginal bleeding, weakness, fever, dyspnea, syncope, headache, dizziness, GI bleed, back pain, seizure, CVA, palpatations, mental health, musculoskeletal)? @ -nDifferential Abdominal Pain Women: Appendicitis, Cholecystitis, diverticulosis, ischemic bowel, pancreatitis, hepatitis, UTI, gastroenteritis, AAA, incarcerated hernia, bowel obstruction, constipation, inflammatory bowel, hepatitis, peptic ulcer disease, splenic infarction, perforated viscus, vulvitis, ovarian torsion, PID, kidney stone, placenta abruption, this is not meant to be an all-inclusive list EKG interpreted by me (3pts min.). @ -None 2 hours X-rays interpreted by me (1pt min.). @ -None done CT interpreted by me (1pt min.). @ -None done U/S interpreted by me (1pt. min.). @ -None done What testing was considered but not performed or refused? (CT, X-rays, U/S, labs)? Why? @ -None What meds were considered but not given or refused? Why? @ -None Did you discuss the management of the patient with other professionals (professionals i.e. , PA, GLASS DRILLER, lab, RT, psych nurse, medical social worker, carpenter supervisor, teacher, chief science officer, briefcase sewer)? Give summary @ -No Was smoking cessation discussed for >3mins.? @ -No Was critical care preformed (if so, how long)? @ -No Were there social determinants of health that impacted care today? How? (Homelessness, low income, unemployed, alcoholism, drug addiction, transportation, low edu. Level, literacy, decrease access to med. care, shelter, rehab)? @ -No Was there de-escalation of care discussed even if they declined (Discuss DNR or withdrawal of care, Hospice)? DNR status @ -No What co-morbidities impacted this encounter? (DM, HTN, Smoking, COPD, CAD, Cancer, CVA, ARF, Chemo, Hep., AIDS, mental health diagnosis, sleep apnea, morbid obesity)? @ -[Endometriosis, IBS, chronic abdominal pain Was patient admitted / discharged? Hospital course, mention meds given and route, prescriptions, significant lab abnormalities, going to OR and other pertinent info. @ -[Discharge patient has chronic abdominal pain urinalysis unremarkable. She is not having localizing abdominal tenderness. Vitals are stable. She's had prior hysterectomy including ovaries. Patient we discharged in stable condition return parameters were discussed. Undiagnosed new problem with uncertain prognosis? @ -No Drug Therapy requiring intensive monitoring for toxicity (Heparin, Nitro, Insulin, Cardizem)? @ -No Were any procedures done? @ -No Diagnosis/symptom? @ -Abdominal pain Acute, or Chronic, or Acute on Chronic? @ -Acute Uncomplicated (without systemic symptoms) or Complicated (systemic symptoms)? @ -Uncomplicated Side effects of treatment? @ -No Exacerbation, Progression, or Severe Exacerbation? @ -No Poses a threat to life or bodily function? How? (Chest pain, [place], [place], pneumonia, PE, COPD, DKA, ARF, appy, cholecystitis, CVA, Diverticulitis, Homicidal, Suicidal, threat to staff... and all critical care pts) @ -No - Lab Data Lab Results 07/08/23 Range/Units 01:00 Urine Color Colorless Urine Appearance Clear (Clear) Urine pH 6.5 (5.0-8.0) Ur Specific [place] 1.011 (1.001-1.035) Urine Protein Negative (Negative) Urine Glucose (UA) Negative (Negative) Urine Ketones Negative (Negative) Urine Blood Negative (Negative) Urine Nitrite Negative (Negative) Urine Bilirubin Negative (Negative) Urine Urobilinogen <2.0 (<2.0) mg/dL Ur Leukocyte Esterase Small H (Negative) Urine RBC <1 (0-5) /hpf Urine WBC 4 (0-5) /hpf Ur Squamous Epith Cells 1 (0-4) /hpf Disposition Clinical Impression: Abdominal pain, Chronic pelvic pain in female Disposition: HOME SELF-CARE Condition: Stable Instructions (If sedation given, give patient instructions): Abdominal Pain (ED) Additional Instructions: Please return to the Emergency Department if symptoms worsen or any other concerns. Is patient prescribed a controlled substance at d/c from ED?: No Referrals: Samuel Daniels MD [Primary Care Provider] - 1-2 days Time of Disposition: 01:39
[2023-07-08 01:24] LABS: Appearance,Urine Clear (Clear); Bilirubin,Urine Negative (Negative); Blood,Urine Negative (Negative); Color,Urine Colorless; Glucose,Urine (UA) Negative (Negative); Ketones,Urine Negative (Negative); Leukocyte Esterase,Urine Small (Negative); Nitrite,Urine Negative (Negative); PH, Urine 6.5 (5.0-8.0); Protein,Urine Negative (Negative); RBC,Urine <1 /hpf (0-5); Specific Gravity,Urine 1.011 (1.001-1.035); Squamous Epithelial Cell,Urine 1 /hpf (0-4); Urobilinogen,Urine <2.0 mg/dL (<2.0); WBC,Urine 4 /hpf (0-5)
[2023-07-08] MEDS ORDERED: HYDROcodone/APAP 5-325MG 1 EACH TAB PO STA (01:38)
[2023-07-08 02:04] VITALS: BP 119/70; PULSE 77
== END 2023-07-08 02:02 | disposition home or self-care (01) ==
LOC: EC 00:02
DX: G89.29 Other chronic pain (principal); R10.2 Pelvic and perineal pain; K21.9 Gastro-esophageal reflux disease without esophagitis; F41.9 Anxiety disorder, unspecified; F32.A Depression, unspecified; Z79.899 Other long term (current) drug therapy; Z88.0 Allergy status to penicillin; Z88.2 Allergy status to sulfonamides; Z88.1 Allergy status to other antibiotic agents; Z88.8 Allergy status to other drugs, medicaments and biological substances; Z91.09 Other allergy status, other than to drugs and biological substances
CPT/HCPCS: 81001; 99284

== ENCOUNTER 2023-08-31 22:52 | Emergency (ER) | payer OTHER ==
[2023-08-31 23:08] VITALS: TEMP 97.9
[2023-08-31 23:32] LABS: Appearance,Urine Clear (Clear); Bilirubin,Urine Negative (Negative); Blood,Urine Negative (Negative); Color,Urine Colorless; Glucose,Urine (UA) Negative (Negative); Ketones,Urine Negative (Negative); Leukocyte Esterase,Urine Negative (Negative); Nitrite,Urine Negative (Negative); PH, Urine 6.5 (5.0-8.0); Protein,Urine Negative (Negative); Urobilinogen,Urine <2.0 mg/dL (<2.0)
[2023-08-31] MEDS: HYDROcodone/APAP 5-325MG 1 EACH TAB PO STA (23:47)
[2023-09-01] MEDS: SODIUM CHLORIDE 0.9% 1,000 ML IV ONE
--- NOTE | 2023-09-01 00:26 | ED ---
Female Urogenital HPI - General Chief complaint: Urogenital Stated complaint: pelvic pain Time Seen by Provider: 08/31/23 23:08 Source: patient Mode of arrival: ambulatory Limitations: no limitations - History of Present Illness Initial comments: 33-year-old female with history of chronic pelvic pain presenting with chief complaint of pelvic pain. Pain has been ongoing for 2 days. She admits to some right-sided flank pain as well. No nausea or vomiting. She admits to diarrhea. No fevers or chills. No chest pain or difficulty breathing. No dysuria, hematuria, urgency, frequency, vaginal bleeding, abnormal discharge. Surgical history includes hysterectomy and oophorectomy. - Related Data Home Medications Medication Instructions Recorded Confirmed Omeprazole 20 mg PO BID 03/07/22 03/17/23 Albuterol Inhaler [Ventolin Hfa 2 puff INHALATION RT-Q6H PRN 02/13/23 03/17/23 Inhaler] Escitalopram [Lexapro] 10 mg PO HS 03/17/23 03/17/23 Meloxicam [Mobic] 7.5 mg PO BID 03/17/23 03/17/23 Ondansetron Odt [Zofran Odt] 4 mg PO Q12HR PRN 03/17/23 03/17/23 Orphenadrine Citrate [Orphenadrine 100 mg PO BID 03/17/23 03/17/23 Citrate ER] Previous Rx's Medication Instructions Recorded Cyclobenzaprine [Flexeril] 5 mg PO TID PRN #15 tablet 05/27/23 Allergies Allergy/AdvReac Type Severity Reaction Status Date / Time sulfamethoxazole Allergy Severe Anaphylaxis Verified 08/31/23 23:03 [From Bactrim] trimethoprim [From Bactrim] Allergy Severe Anaphylaxis Verified 08/31/23 23:03 adhesive tape Allergy Rash/Hives Verified 08/31/23 23:03 aloe vera Allergy Rash/Hives Verified 08/31/23 23:03 azithromycin Allergy Rash/Hives Verified 08/31/23 23:03 cephalexin Allergy Rash/Hives Verified 08/31/23 23:03 metronidazole [From Flagyl] Allergy Rash/Hives Verified 08/31/23 23:03 Penicillins Allergy Rash/Hives Verified 08/31/23 23:03 alprazolam [From Xanax] AdvReac MAKES Verified 08/31/23 23:03 PARANOID dicyclomine [From Bentyl] AdvReac constipatio Verified 08/31/23 23:03 n Review of Systems ROS Statement: Those systems with pertinent positive or pertinent negative responses have been documented in the HPI. ROS Other: All systems not noted in ROS Statement are negative. Past Medical History Past Medical History: Blood Disorder, GERD/Reflux Additional Past Medical History / Comment(s): Endometriosis, polycystic ovarian syndrome. IRON DEFICIENCY ANEMIA. Stomach Ulcer. ovarian cyst History of Any Multi-Drug Resistant Organisms: None Reported Past Surgical History: Ablation, Section, Cholecystectomy, Hernia Repair, Hysterectomy, Tubal Ligation, Uterine Ablation Additional Past Surgical History / Comment(s): Laparoscopy X2, Section X3. Right ovary and right tube removed - 2019. cyst removed from chest. AUG 2020 - ADHESION REMOVAL FROM PAST . Vaginal. pelvic biopsy 05/11. PCOS Past Anesthesia/Blood Transfusion Reactions: No Reported Reaction Past Psychological History: Anxiety, Depression Smoking Status: Never smoker Past Alcohol Use History: Occasional Past Drug Use History: None Reported - Past Family History Mother Family Medical History: Hyperlipidemia Additional Family Medical History / Comment(s): Depression and anxiety. General Exam Limitations: no limitations General appearance: alert, in no apparent distress Head exam: Present: atraumatic, normocephalic Eye exam: Present: normal appearance Neck exam: Present: normal inspection Respiratory exam: Present: normal lung sounds bilaterally. Absent: respiratory distress, wheezes, rales, rhonchi, stridor Cardiovascular Exam: Present: regular rate, normal rhythm, normal heart sounds. Absent: systolic murmur, diastolic murmur, rubs, gallop, clicks GI/Abdominal exam: Present: soft, tenderness (Vague right-sided discomfort). Absent: distended, guarding, rebound, rigid Neurological exam: Present: alert, oriented X3 Psychiatric exam: Present: normal affect, normal mood Skin exam: Present: warm, dry Course Vital Signs 08/31/23 09/01/23 23:02 00:55 Temperature 97.9 F Pulse Rate 103 H 71 Respiratory 20 18 Rate Blood Pressure 136/95 122/80 O2 Sat by Pulse 100 98 Oximetry Medical Decision Making - Medical Decision Making Was pt. sent in by a medical professional or institution (, PA, CLOTH SPREADER, urgent care, hospital, or prison...) When possible be specific @ -No Did you speak to anyone other than the patient for history (EMS, parent, family, police, friend...)? What history was obtained from this source @ -No Did you review nursing and triage notes (agree or disagree)? Why? @ -I reviewed and agree with nursing and triage notes Were old charts reviewed (outside hosp., previous admission, EMS record, old EKG, old radiological studies, urgent care reports/EKG's, prison records)? Report findings @ -No old charts were reviewed Differential Diagnosis (chest pain, altered mental status, abdominal pain women, abdominal pain men, vaginal bleeding, weakness, fever, dyspnea, syncope, headache, dizziness, GI bleed, back pain, seizure, CVA, palpatations, mental health, musculoskeletal)? @ -MDM Differential Abdominal Pain Women: Appendicitis, Cholecystitis, diverticulosis, ischemic bowel, pancreatitis, hepatitis, UTI, gastroenteritis, AAA, incarcerated hernia, bowel obstruction, constipation, inflammatory bowel, hepatitis, peptic ulcer disease, splenic infarction, perforated viscus, vulvitis, ovarian torsion, PID, kidney stone, placenta abruption... This is not meant to be an all-inclusive list EKG interpreted by me (3pts min.). @ -As above X-rays interpreted by me (1pt min.). @ -None done CT interpreted by me (1pt min.). @ -None done U/S interpreted by me (1pt. min.). @ -None done What testing was considered but not performed or refused? (CT, X-rays, U/S, labs)? Why? @ -None What meds were considered but not given or refused? Why? @ -None Did you discuss the management of the patient with other professionals (professionals i.e. , PA, CLOTH SPREADER, lab, RT, psych nurse, socially responsible investment adviser, hammer mill operator, teacher, code enforcement officer, case reviewer)? Give summary @ -No Was smoking cessation discussed for >3mins.? @ -No Was critical care preformed (if so, how long)? @ -No Were there social determinants of health that impacted care today? How? (Homelessness, low income, unemployed, alcoholism, drug addiction, transportation, low edu. Level, literacy, decrease access to med. care, long-term, rehab)? @ -No Was there de-escalation of care discussed even if they declined (Discuss DNR or withdrawal of care, Hospice)? DNR status @ -No What co-morbidities impacted this encounter? (DM, HTN, Smoking, COPD, CAD, Cancer, CVA, ARF, Chemo, Hep., AIDS, mental health diagnosis, sleep apnea, morbid obesity)? @ -None Was patient admitted / discharged? Hospital course, mention meds given and route, prescriptions, significant lab abnormalities, going to OR and other pertinent info. @ -33-year-old female presenting with chief complaint of pelvic pain. Patient has no urinary symptoms or vaginal bleeding or discharge. She has history of hysterectomy and oophorectomy, no concern for torsion. Urine shows no infectious process or bleeding. Patient is given 1 L fluid bolus and [place] for pain. She is resting comfortably in the stretcher and is on her phone. She shows no acute signs of distress. Vital signs are WNL. She is discharged home. Follow-up with PCP. Report back to ER with any new or worsening symptoms. Dis cussed return parameters and answered all questions. Patient conveyed verbal understanding and agreed to the plan. I discussed this case in detail with my attending Dr. Carpio Undiagnosed new problem with uncertain prognosis? @ -No Drug Therapy requiring intensive monitoring for toxicity (Heparin, Nitro, Insulin, Cardizem)? @ -No Were any procedures done? @ -No Diagnosis/symptom? @ -Pelvic pain Acute, or Chronic, or Acute on Chronic? @ -Acute on chronic Uncomplicated (without systemic symptoms) or Complicated (systemic symptoms)? @ -Uncomplicated Side effects of treatment? @ -No Exacerbation, Progression, or Severe Exacerbation? @ -No Poses a threat to life or bodily function? How? (Chest pain, [place], [place], pneumonia, PE, COPD, DKA, ARF, appy, cholecystitis, CVA, Diverticulitis, Homicidal, Suicidal, threat to staff... and all critical care pts) @ -No - Lab Data Lab Results 08/31/23 Range/Units 23:18 Urine Color Colorless Urine Appearance Clear (Clear) Urine pH 6.5 (5.0-8.0) Ur Specific [place] 1.010 (1.001-1.035) Urine Protein Negative (Negative) Urine Glucose (UA) Negative (Negative) Urine Ketones Negative (Negative) Urine Blood Negative (Negative) Urine Nitrite Negative (Negative) Urine Bilirubin Negative (Negative) Urine Urobilinogen <2.0 (<2.0) mg/dL Ur Leukocyte Esterase Negative (Negative) Disposition Clinical Impression: Diarrhea, IBS (irritable bowel syndrome), Abdominal pain Disposition: HOME SELF-CARE Condition: Fair Instructions (If sedation given, give patient instructions): Acute Diarrhea (ED), Abdominal Pain (ED) Additional Instructions: Follow-up with PCP. Report back to ER with any new or worsening symptoms. Is patient prescribed a controlled substance at d/c from ED?: No Referrals: None,Stated [Primary Care Provider] - 1-2 days Time of Disposition: 00:26
[2023-09-01 01:32] VITALS: BP 122/80; PULSE 71; RESP 18
== END 2023-09-01 01:00 | disposition home or self-care (01) ==
LOC: EC 22:52
DX: K58.9 Irritable bowel syndrome, unspecified (principal); K21.9 Gastro-esophageal reflux disease without esophagitis; F41.9 Anxiety disorder, unspecified; F32.A Depression, unspecified; Z79.899 Other long term (current) drug therapy; Z88.2 Allergy status to sulfonamides; Z88.0 Allergy status to penicillin; Z88.8 Allergy status to other drugs, medicaments and biological substances; Z91.048 Other nonmedicinal substance allergy status
CPT/HCPCS: 81003; 96360; 99284

== ENCOUNTER 2023-09-25 21:11 | Emergency (ER) | payer OTHER ==
[2023-09-25 21:28] VITALS: RESP 18; TEMP 98.4
--- NOTE | 2023-09-25 21:48 | ED ---
General Adult HPI - General Chief complaint: Abdominal Pain Stated complaint: N/V/D Time Seen by Provider: 09/25/23 21:28 Source: patient, RN notes reviewed, old records reviewed Mode of arrival: wheelchair Limitations: no limitations - History of Present Illness Initial comments: Is a 33-year-old female with past medical history remarkable for chronic abdominal pain, endometriosis who presents emergency department for typical abdominal pain. States is primarily in the right lower quadrant which is typical for her. Has been present for multiple days. Also had some diarrhea. Denies any nausea or vomiting. Denies any chest pain, cough. Endorses an episode of loose stool that is nonbloody. Denies any urinary complaints. States he has a history of a hysterectomy. No constipation however she did take a stool softener to see if it would help yesterday. Has no other acute complaints at this time. Presents for further evaluation at this time. Denies any vaginal bleeding or discharge. Denies any urinary complaints. - Related Data Home Medications Medication Instructions Recorded Confirmed Omeprazole 20 mg PO BID 03/07/22 03/17/23 Albuterol Inhaler [Ventolin Hfa 2 puff INHALATION RT-Q6H PRN 02/13/23 03/17/23 Inhaler] Escitalopram [Lexapro] 10 mg PO HS 03/17/23 03/17/23 Meloxicam [Mobic] 7.5 mg PO BID 03/17/23 03/17/23 Ondansetron Odt [Zofran Odt] 4 mg PO Q12HR PRN 03/17/23 03/17/23 Orphenadrine Citrate [Orphenadrine 100 mg PO BID 03/17/23 03/17/23 Citrate ER] Previous Rx's Medication Instructions Recorded Cyclobenzaprine [Flexeril] 5 mg PO TID PRN #15 tablet 05/27/23 Allergies Allergy/AdvReac Type Severity Reaction Status Date / Time sulfamethoxazole Allergy Severe Anaphylaxis Verified 09/25/23 21:14 [From Bactrim] trimethoprim [From Bactrim] Allergy Severe Anaphylaxis Verified 09/25/23 21:14 adhesive tape Allergy Rash/Hives Verified 09/25/23 21:14 aloe vera Allergy Rash/Hives Verified 09/25/23 21:14 azithromycin Allergy Rash/Hives Verified 09/25/23 21:14 cephalexin Allergy Rash/Hives Verified 09/25/23 21:14 metronidazole [From Flagyl] Allergy Rash/Hives Verified 09/25/23 21:14 Penicillins Allergy Rash/Hives Verified 09/25/23 21:14 alprazolam [From Xanax] AdvReac MAKES Verified 09/25/23 21:14 PARANOID dicyclomine [From Bentyl] AdvReac constipatio Verified 09/25/23 21:14 n Review of Systems ROS Statement: Those systems with pertinent positive or pertinent negative responses have been documented in the HPI. Review of Systems: CONST: Denies fever EYES: Denies blurry vision ENT: Denies nasal congestion C/V: Denies Chest pain RESP: Denies shortness of breath GI: Endorses abdominal pain : Denies dysuria SKIN: Denies rash. MSK: Denies joint pain. NEURO: Denies headache ROS Other: All systems not noted in ROS Statement are negative. Past Medical History Past Medical History: Blood Disorder, GERD/Reflux Additional Past Medical History / Comment(s): Endometriosis, polycystic ovarian syndrome. IRON DEFICIENCY ANEMIA. Stomach Ulcer. ovarian cyst History of Any Multi-Drug Resistant Organisms: None Reported Past Surgical History: Ablation, Section, Cholecystectomy, Hernia Repair, Hysterectomy, Tubal Ligation, Uterine Ablation Additional Past Surgical History / Comment(s): Laparoscopy X2, Section X3. Right ovary and right tube removed - 2019. cyst removed from chest. AUG 2020 - ADHESION REMOVAL FROM PAST . Vaginal. pelvic biopsy 05/11. PCOS Past Anesthesia/Blood Transfusion Reactions: No Reported Reaction Past Psychological History: Anxiety, Depression Smoking Status: Never smoker Past Alcohol Use History: Occasional Past Drug Use History: None Reported - Past Family History Mother Family Medical History: Hyperlipidemia Additional Family Medical History / Comment(s): Depression and anxiety. General Exam - General Exam Comments Initial Comments: General: Appears in no acute distress. HEAD: Normal with no signs of head trauma. EYES: PERRLA, EOMI, conjunctiva normal, no discharge. ENT: Hearing grossly intact, normal oropharynx. RESPIRATORY: Clear breath sounds bilaterally. No wheezes, rales, or rhonchi. C/V: Regular rate and rhythm. S1 and S2 auscultated, no edema, peripheral pulses 2+ and intact throughout ABD: Abdomen is soft, nondistended. Mild tenderness to palpation over the right lower quadrant and right flank. No midline pain. No distention. No guarding. No rebound tenderness. No peritoneal signs. EXT: Normal range of motion, no obvious deformity SKIN: No rashes or lesions observed on exposed skin. NEURO: Alert and oriented x 4. Limitations: no limitations Course Vital Signs 09/25/23 09/25/23 09/25/23 21:12 22:06 23:00 Temperature 98.4 F Pulse Rate 84 78 73 Respiratory 18 18 18 Rate Blood Pressure 127/84 120/75 109/70 O2 Sat by Pulse 100 98 97 Oximetry Medical Decision Making - Medical Decision Making Was pt. sent in by a medical professional or institution (, PA, POSTAL DELIVERY OFFICER, urgent care, hospital, or skilled nursing...) When possible be specific @ -No Did you speak to anyone other than the patient for history (EMS, parent, family, police, friend...)? What history was obtained from this source @ -No Did you review nursing and triage notes (agree or disagree)? Why? @ -I reviewed and agree with nursing and triage notes Were old charts reviewed (outside hosp., previous admission, EMS record, old EKG, old radiological studies, urgent care reports/EKG's, skilled nursing records)? Report findings @ -Old charts reviewed Differential Diagnosis (chest pain, altered mental status, abdominal pain women, abdominal pain men, vaginal bleeding, weakness, fever, dyspnea, syncope, headache, dizziness, GI bleed, back pain, seizure, CVA, palpatations, mental health, musculoskeletal)? @ -Differential Abdominal Pain Women: Appendicitis, Cholecystitis, diverticulosis, ischemic bowel, pancreatitis, hepatitis, UTI, gastroenteritis, AAA, incarcerated hernia, bowel obstruction, constipation, inflammatory bowel, hepatitis, peptic ulcer disease, splenic infarction, perforated viscus, vulvitis, ovarian torsion, PID, kidney stone, placenta abruption, this is not meant to be an all-inclusive list EKG interpreted by me (3pts min.). @ -None done X-rays interpreted by me (1pt min.). @ -None done CT interpreted by me (1pt min.). @ -None done U/S interpreted by me (1pt. min.). @ -None done What testing was considered but not performed or refused? (CT, X-rays, U/S, labs)? Why? @ -Considered CT imaging however as patient has chronic abdominal pain, and this is her typical pain, we both agreed to defer at this time until laboratory studies are obtained. We will symptomatically treat. Patient in agreement this plan. What meds were considered but not given or refused? Why? @ -None Did you discuss the management of the patient with other professionals (professionals i.e. Dr., PA, POSTAL DELIVERY OFFICER, lab, RT, psych nurse, social group worker, manager managed backup services, teacher, classifications officer cc/cm, telephonic nurse case manager)? Give summary @ -No Was smoking cessation discussed for >3mins.? @ -No Was critical care preformed (if so, how long)? @ -No Were there social determinants of health that impacted care today? How? (Homelessness, low income, unemployed, alcoholism, drug addiction, transportation, low edu. Level, literacy, decrease access to med. care, [facility], rehab)? @ -No Was there de-escalation of care discussed even if they declined (Discuss DNR or withdrawal of care, Hospice)? DNR status @ -No What co-morbidities impacted this encounter? (DM, HTN, Smoking, COPD, CAD, Cancer, CVA, ARF, Chemo, Hep., AIDS, mental health diagnosis, sleep apnea, morbid obesity)? @ -Endometriosis, chronic abdominal pain Was patient admitted / discharged? Hospital course, mention meds given and route, prescriptions, significant lab abnormalities, going to OR and other perti nent info. @ -Based on the patient's presentation and physical exam, presents with chronic abdominal pain with mild nausea as well as diarrhea. Pain is typical for the patient. Discussed obtaining CT imaging which she agreed to defer at this time and lieu of obtaining laboratory studies initially. We will symptomatically treat with IV fluids, analgesia medications, Protonix, Zofran. Patient was in agreement this plan. Vital signs are within acceptable limits. Patient's labs are all within acceptable limits. Patient does have a mild anemia with a hemoglobin of 11.2, however this is within the patient's normal range. On reevaluation, patient is feeling improved. She did require 1 additional dose of pain medications. She will be discharged home at this time with ODT Zofran. We both agree not to obtain CT imaging. She will follow-up with her PCP. I will provide the patient with a prescription for ODT Zofran starter pack. I instructed the patient to follow up with their PCP in the next 1-3 days.. I explained that the patient should return to the emergency department if they experience any worsening symptoms. Strict return precautions were discussed with the patient. The patient expressed understanding of these instructions. I answered all questions that the patient had. The patient was discharged home in good condition with their prescriptions and follow up information. Undiagnosed new problem with uncertain prognosis? @ -No Drug Therapy requiring intensive monitoring for toxicity (Heparin, Nitro, Insulin, Cardizem)? @ -No Were any procedures done? @ -No Diagnosis/symptom? @ -Abdominal pain Acute, or Chronic, or Acute on Chronic? @ -Acute on chronic Uncomplicated (without systemic symptoms) or Complicated (systemic symptoms)? @ -Complicated Side effects of treatment? @ -None Exacerbation, Progression, or Severe Exacerbation] @ -No Poses a threat to life or bodily function? @ -Unlikely - Lab Data Result diagrams: 09/25/23 22:05 09/25/23 22:05 Lab Results 09/25/23 09/25/23 09/25/23 Range/Units 22:05 22:05 22:05 WBC 5.7 (3.8-10.6) k/uL RBC 3.55 L (3.80-5.40) m/uL Hgb 11.2 L (11.4-16.0) gm/dL Hct 32.4 L (34.0-46.0) % MCV 91.4 (80.0-100.0) fL MCH 31.6 (25.0-35.0) pg MCHC 34.6 (31.0-37.0) g/dL RDW 12.9 (11.5-15.5) % Plt Count 183 (150-450) k/uL MPV 7.5 Neutrophils % 64 % Lymphocytes % 29 % Monocytes % 5 % Eosinophils % 1 % Basophils % 0 % Neutrophils # 3.7 (1.3-7.7) k/uL Lymphocytes # 1.6 (1.0-4.8) k/uL Monocytes # 0.3 (0-1.0) k/uL Eosinophils # 0.1 (0-0.7) k/uL Basophils # 0.0 (0-0.2) k/uL PT 9.9 L (10.0-12.5) sec INR 0.9 (<1.2) APTT 25.2 (22.0-30.0) sec Sodium (137-145) mmol/L Potassium (3.5-5.1) mmol/L Chloride (98-107) mmol/L Carbon Dioxide (22-30) mmol/L Anion Gap mmol/L BUN (7-17) mg/dL Creatinine (0.52-1.04) mg/dL Est GFR (CKD-EPI)AfAm (>60 ml/min/1.73 sqM) Est GFR (CKD-EPI)NonAf (>60 ml/min/1.73 sqM) Glucose (74-99) mg/dL Plasma Lactic Acid [place] (0.7-2.0) mmol/L Calcium (8.4-10.2) mg/dL Total Bilirubin (0.2-1.3) mg/dL AST (14-36) U/L ALT (4-34) U/L Alkaline Phosphatase (38-126) U/L Total Protein (6.3-8.2) g/dL Albumin (3.5-5.0) g/dL Amylase (30-110) U/L Lipase (23-300) U/L HCG, Qual Urine Color Colorless Urine Appearance Clear (Clear) Urine pH 7.0 (5.0-8.0) Ur Specific [place] 1.022 (1.001-1.035) Urine Protein Negative (Negative) Urine Glucose (UA) Negative (Negative) Urine Ketones Negative (Negative) Urine Blood Negative (Negative) Urine Nitrite Negative (Negative) Urine Bilirubin Negative (Negative) Urine Urobilinogen <2.0 (<2.0) mg/dL Ur Leukocyte Esterase Negative (Negative) Influenza Type A (PCR) (Not Detectd) Influenza Type B (PCR) (Not Detectd) RSV (PCR) (Not Detectd) SARS-CoV-2 (PCR) (Not Detectd) 09/25/23 09/25/23 09/25/23 Range/Units 22:05 22:05 22:05 WBC (3.8-10.6) k/uL RBC (3.80-5.40) m/uL Hgb (11.4-16.0) gm/dL Hct (34.0-46.0) % MCV (80.0-100.0) fL MCH (25.0-35.0) pg MCHC (31.0-37.0) g/dL RDW (11.5-15.5) % Plt Count (150-450) k/uL MPV Neutrophils % % Lymphocytes % % Monocytes % % Eosinophils % % Basophils % % Neutrophils # (1.3-7.7) k/uL Lymphocytes # (1.0-4.8) k/uL Monocytes # (0-1.0) k/uL Eosinophils # (0-0.7) k/uL Basophils # (0-0.2) k/uL PT (10.0-12.5) sec INR (<1.2) APTT (22.0-30.0) sec Sodium 139 (137-145) mmol/L Potassium 4.0 (3.5-5.1) mmol/L Chloride 106 (98-107) mmol/L Carbon Dioxide 25 (22-30) mmol/L Anion Gap 8 mmol/L BUN 20 H (7-17) mg/dL Creatinine 0.85 (0.52-1.04) mg/dL Est GFR (CKD-EPI)AfAm >90 (>60 ml/min/1.73 sqM) Est GFR (CKD-EPI)NonAf >90 (>60 ml/min/1.73 sqM) Glucose 101 H (74-99) mg/dL Plasma Lactic Acid [place] 1.2 (0.7-2.0) mmol/L Calcium 9.5 (8.4-10.2) mg/dL Total Bilirubin 0.6 (0.2-1.3) mg/dL AST 32 (14-36) U/L ALT 27 (4-34) U/L Alkaline Phosphatase 123 (38-126) U/L Total Protein 6.6 (6.3-8.2) g/dL Albumin 3.9 (3.5-5.0) g/dL Amylase 63 (30-110) U/L Lipase 63 (23-300) U/L HCG, Qual Not Detected Urine Color Urine Appearance (Clear) Urine pH (5.0-8.0) Ur Specific [place] (1.001-1.035) Urine Protein (Negative) Urine Glucose (UA) (Negative) Urine Ketones (Negative) Urine Blood (Negative) Urine Nitrite (Negative) Urine Bilirubin (Negative) Urine Urobilinogen (<2.0) mg/dL Ur Leukocyte Esterase (Negative) Influenza Type A (PCR) Not Detected (Not Detectd) Influenza Type B (PCR) Not Detected (Not Detectd) RSV (PCR) Not Detected (Not Detectd) SARS-CoV-2 (PCR) Not Detected (Not Detectd) Disposition Clinical Impression: Chronic abdominal pain Disposition: HOME SELF-CARE Condition: Good Instructions (If sedation given, give patient instructions): Abdominal Pain (ED) Is patient prescribed a controlled substance at d/c from ED?: No Referrals: None,Stated [Primary Care Provider] - 1-2 days Time of Disposition: 23:35
[2023-09-25] MEDS: SODIUM CHLORIDE 0.9% 1,000 ML IV STA (22:03)
[2023-09-25] MEDS: ONDANSETRON 4 MG/2 ML VIAL IVP STA (22:04)
[2023-09-25] MEDS: PANTOPRAZOLE 40 MG/10 ML VIAL IVP STA (22:08)
[2023-09-25] MEDS: MORPHINE SULFATE 4 MG/ML SYRINGE IVP STA (22:08)
[2023-09-25 22:12] LABS: Basophils % (A) 0 %; Eosinophils # (A) 0.1 k/uL (0-0.7); Eosinophils % (A) 1 %; HCT 32.4 % (34.0-46.0); HGB 11.2 gm/dL (11.4-16.0); Lymphocytes # (A) 1.6 k/uL (1.0-4.8); Lymphocytes % (A) 29 %; MCH 31.6 pg (25.0-35.0); MCHC 34.6 g/dL (31.0-37.0); MCV 91.4 fL (80.0-100.0); Mean Platelet Volume 7.5; Monocytes # (A) 0.3 k/uL (0-1.0); Monocytes % (A) 5 %; Neutrophils # (A) 3.7 k/uL (1.3-7.7); Neutrophils % (A) 64 %; Platelet Count 183 k/uL (150-450); RBC 3.55 m/uL (3.80-5.40); RDW 12.9 % (11.5-15.5); WBC 5.7 k/uL (3.8-10.6)
[2023-09-25 22:20] LABS: Appearance,Urine Clear (Clear); Bilirubin,Urine Negative (Negative); Blood,Urine Negative (Negative); Color,Urine Colorless; Glucose,Urine (UA) Negative (Negative); Ketones,Urine Negative (Negative); Leukocyte Esterase,Urine Negative (Negative); Nitrite,Urine Negative (Negative); Protein,Urine Negative (Negative); Specific Gravity,Urine 1.022 (1.001-1.035); Urobilinogen,Urine <2.0 mg/dL (<2.0)
[2023-09-25 22:22] LABS: HCG,Qualitative Serum Not Detected
[2023-09-25 22:24] LABS: ALT 27 U/L (4-34); AST 32 U/L (14-36); African American GFR (CKD) >90 (>60 ml/min/1.73 sqM); Albumin 3.9 g/dL (3.5-5.0); Alkaline Phosphatase 123 U/L (38-126); Amylase 63 U/L (30-110); Anion Gap 8 mmol/L; Blood Urea Nitrogen 20 mg/dL (7-17); Calcium 9.5 mg/dL (8.4-10.2); Carbon Dioxide 25 mmol/L (22-30); Chloride 106 mmol/L (98-107); Glucose 101 mg/dL (74-99); INR 0.9 (<1.2); Lipase 63 U/L (23-300); Non-African American GFR(CKD) >90 (>60 ml/min/1.73 sqM); Partial Thromboplastin Time 25.2 sec (22.0-30.0); Prothrombin Time 9.9 sec (10.0-12.5); Sodium 139 mmol/L (137-145); Total Bilirubin 0.6 mg/dL (0.2-1.3); Total Protein 6.6 g/dL (6.3-8.2)
[2023-09-25] MEDS: HYDROmorphone 0.5 MG/0.5 ML SYRINGE IVP STA (23:08)
[2023-09-25] MEDS: ONDANSETRON 4 MG ODT STARTER PACK 2 TAB BTL PO STA (23:57)
[2023-09-26 00:02] VITALS: BP 106/76; PULSE 74
== END 2023-09-26 00:10 | disposition home or self-care (01) ==
LOC: EC 21:11
DX: G89.29 Other chronic pain (principal); R10.31 Right lower quadrant pain; Z88.2 Allergy status to sulfonamides; Z88.0 Allergy status to penicillin; Z88.8 Allergy status to other drugs, medicaments and biological substances; Z88.1 Allergy status to other antibiotic agents
CPT/HCPCS: 36415; 80053; 82150; 83605; 83690; 85025; 85610; 85730; 81003; 84703; 87636; 99284; 96374; 96375 ×3; 96361; J2270; J2405; S0119; C9113; J1170

== ENCOUNTER 2023-10-09 21:17 | Emergency (ER) | payer OTHER ==
[2023-10-09 21:44] VITALS: TEMP 98.5
[2023-10-09 21:50] LABS: Appearance,Urine Clear (Clear); Bilirubin,Urine Negative (Negative); Blood,Urine Negative (Negative); Color,Urine Colorless; Glucose,Urine (UA) Negative (Negative); Ketones,Urine Negative (Negative); Leukocyte Esterase,Urine Negative (Negative); Nitrite,Urine Negative (Negative); PH, Urine 5.5 (5.0-8.0); Protein,Urine Negative (Negative); Specific Gravity,Urine 1.025 (1.001-1.035); Urobilinogen,Urine <2.0 mg/dL (<2.0)
[2023-10-09] MEDS: KETOROLAC 15 MG/ML 1 ML VIAL IM STA (23:41)
--- NOTE | 2023-10-09 23:44 | ED ---
General Adult HPI - General Chief complaint: Back Pain/Injury Stated complaint: rt sided pain Time Seen by Provider: 10/09/23 21:59 Source: patient, RN notes reviewed Mode of arrival: ambulatory Limitations: no limitations - History of Present Illness Initial comments: 33-year-old female presents to the emergency department for evaluation of right-sided flank pain. She reports that this started around 4 days ago but today has gotten worse. She reports a history of kidney stones and states that this feels similar to prior. She notes that it is pain radiating to her groin. She admits to nausea without vomiting. Denies recent fever. Denies dysuria, hematuria - Related Data Home Medications Medication Instructions Recorded Confirmed Omeprazole 20 mg PO BID 03/07/22 03/17/23 Albuterol Inhaler [Ventolin Hfa 2 puff INHALATION RT-Q6H PRN 02/13/23 03/17/23 Inhaler] Escitalopram [Lexapro] 10 mg PO HS 03/17/23 03/17/23 Meloxicam [Mobic] 7.5 mg PO BID 03/17/23 03/17/23 Ondansetron Odt [Zofran Odt] 4 mg PO Q12HR PRN 03/17/23 03/17/23 Orphenadrine Citrate [Orphenadrine 100 mg PO BID 03/17/23 03/17/23 Citrate ER] Previous Rx's Medication Instructions Recorded Cyclobenzaprine [Flexeril] 5 mg PO TID PRN #15 tablet 05/27/23 Allergies Allergy/AdvReac Type Severity Reaction Status Date / Time sulfamethoxazole Allergy Severe Anaphylaxis Verified 10/09/23 21:22 [From Bactrim] trimethoprim [From Bactrim] Allergy Severe Anaphylaxis Verified 10/09/23 21:22 adhesive tape Allergy Rash/Hives Verified 10/09/23 21:22 aloe vera Allergy Rash/Hives Verified 10/09/23 21:22 azithromycin Allergy Rash/Hives Verified 10/09/23 21:22 cephalexin Allergy Rash/Hives Verified 10/09/23 21:22 metronidazole [From Flagyl] Allergy Rash/Hives Verified 10/09/23 21:22 Penicillins Allergy Rash/Hives Verified 10/09/23 21:22 alprazolam [From Xanax] AdvReac MAKES Verified 10/09/23 21:22 PARANOID dicyclomine [From Bentyl] AdvReac constipatio Verified 10/09/23 21:22 n Review of Systems ROS Statement: Those systems with pertinent positive or pertinent negative responses have been documented in the HPI. ROS Other: All systems not noted in ROS Statement are negative. Past Medical History Past Medical History: Blood Disorder, GERD/Reflux Additional Past Medical History / Comment(s): Endometriosis, polycystic ovarian syndrome. IRON DEFICIENCY ANEMIA. Stomach Ulcer. ovarian cyst History of Any Multi-Drug Resistant Organisms: None Reported Past Surgical History: Ablation, Section, Cholecystectomy, Hernia Repair, Hysterectomy, Tubal Ligation, Uterine Ablation Additional Past Surgical History / Comment(s): Laparoscopy X2, Section X3. Right ovary and right tube removed - 2019. cyst removed from chest. AUG 2020 - ADHESION REMOVAL FROM PAST . Vaginal. pelvic biopsy 05/11. PCOS Past Anesthesia/Blood Transfusion Reactions: No Reported Reaction Past Psychological History: Anxiety, Depression Smoking Status: Never smoker Past Alcohol Use History: Occasional Past Drug Use History: None Reported - Past Family History Mother Family Medical History: Hyperlipidemia Additional Family Medical History / Comment(s): Depression and anxiety. General Exam Limitations: no limitations General appearance: alert, in no apparent distress Head exam: Present: atraumatic, normocephalic, normal inspection Eye exam: Present: normal appearance, PERRL, EOMI. Absent: scleral icterus, conjunctival injection, periorbital swelling ENT exam: Present: normal exam, mucous membranes moist Respiratory exam: Present: normal lung sounds bilaterally. Absent: respiratory distress, wheezes, rales, rhonchi, stridor Cardiovascular Exam: Present: regular rate, normal rhythm, normal heart sounds. Absent: systolic murmur, diastolic murmur, rubs, gallop, clicks GI/Abdominal exam: Present: soft, normal bowel sounds. Absent: distended, tenderness, guarding, rebound, rigid Extremities exam: Present: normal inspection, full ROM, normal capillary refill. Absent: tenderness, pedal edema, joint swelling, calf tenderness Back exam: Present: tenderness (R flank) Neurological exam: Present: alert, oriented X3 Psychiatric exam: Present: normal affect, normal mood Skin exam: Present: warm, dry, intact, normal color. Absent: rash Course Vital Signs 10/09/23 10/10/23 21:22 01:00 Temperature 98.5 F Pulse Rate 91 78 Respiratory 20 18 Rate Blood Pressure 125/85 128/80 O2 Sat by Pulse 100 100 Oximetry Medical Decision Making - Medical Decision Making Was pt. sent in by a medical professional or institution ([facility], [facility], urgent care, hospital, or halfway...) When possible be specific @ -No Did you speak to anyone other than the patient for history (EMS, parent, family, police, friend...)? What history was obtained from this source @ -No Did you review nursing and triage notes (agree or disagree)? Why? @ -I reviewed and agree with nursing and triage notes Were old charts reviewed (outside hosp., previous admission, EMS record, old EKG, old radiological studies, urgent care reports/EKG's, halfway records)? Report findings @ -No old charts were reviewed Differential Diagnosis (chest pain, altered mental status, abdominal pain women, abdominal pain men, vaginal bleeding, weakness, fever, dyspnea, syncope, headache, dizziness, GI bleed, back pain, seizure, CVA, palpatations, mental h ealth, musculoskeletal)? @ -UTI, pyelonephritis, nephrolithiasis, this list is not all inclusive EKG interpreted by me (3pts min.). @ -None X-rays interpreted by me (1pt min.). @ -[KUB XR shows no obvious nephrolithiasis CT interpreted by me (1pt min.). @ -None done U/S interpreted by me (1pt. min.). @ -None done What testing was considered but not performed or refused? (CT, X-rays, U/S, lab s)? Why? @ -None What meds were considered but not given or refused? Why? @ -None Did you discuss the management of the patient with other professionals (professionals i.e. [facility], [facility], lab, RT, psych nurse, dialysis social worker, multi care technician, teacher, youth liaison officer, case operator)? Give summary @ -No Was smoking cessation discussed for >3mins.? @ -No Was critical care preformed (if so, how long)? @ -No Were there social determinants of health that impacted care today? How? (Homelessness, low income, unemployed, alcoholism, drug addiction, transportation, low edu. Level, literacy, decrease access to med. care, care home, rehab)? @ -No Was there de-escalation of care discussed even if they declined (Discuss DNR or withdrawal of care, Hospice)? DNR status @ -No What co-morbidities impacted this encounter? (DM, HTN, Smoking, COPD, CAD, Cancer, CVA, ARF, Chemo, Hep., AIDS, mental health diagnosis, sleep apnea, morbid obesity)? @ -None Was patient admitted / discharged? Hospital course, mention meds given and route, prescriptions, significant lab abnormalities, going to OR and other pertinent info. @ -Discharged. Patient presented to the emergency department for evaluation of right-sided flank pain. UA was obtained which shows no evidence of infectious process, and no blood. KUB x-ray was obtained which shows no acute process. Patient was given Toradol in the emergency department. She states that she had slight improvement with this. She was given another dose and a lidocaine patch. Patient advised on findings and will be discharged home. Patient understanding and agreeable plan. Patient stable at time of discharge. Case discussed with Dr. Sanchez Undiagnosed new problem with uncertain prognosis? @ -No Drug Therapy requiring intensive monitoring for toxicity (Heparin, Nitro, Insulin, Cardizem)? @ -No Were any procedures done? @ -No Diagnosis/symptom? @ -Flank pain Acute, or Chronic, or Acute on Chronic? @ -Acute Uncomplicated (without systemic symptoms) or Complicated (systemic symptoms)? @ -uncomplicated Side effects of treatment? @ -No Exacerbation, Progression, or Severe Exacerbation? @ -No Poses a threat to life or bodily function? How? (Chest pain, [place], [place], pneumonia, PE, COPD, DKA, ARF, appy, cholecystitis, CVA, Diverticulitis, Homicidal, Suicidal, threat to staff... and all critical care pts) @ -No - Lab Data Lab Results 10/09/23 Range/Units 21:30 Urine Color Colorless Urine Appearance Clear (Clear) Urine pH 5.5 (5.0-8.0) Ur Specific [place] 1.025 (1.001-1.035) Urine Protein Negative (Negative) Urine Glucose (UA) Negative (Negative) Urine Ketones Negative (Negative) Urine Blood Negative (Negative) Urine Nitrite Negative (Negative) Urine Bilirubin Negative (Negative) Urine Urobilinogen <2.0 (<2.0) mg/dL Ur Leukocyte Esterase Negative (Negative) Disposition Clinical Impression: Flank pain Disposition: HOME SELF-CARE Condition: Stable Instructions (If sedation given, give patient instructions): Flank Pain (ED) Additional Instructions: Please follow up with your primary care provider. Return to the emergency department for new or worsening symptoms. Is patient prescribed a controlled substance at d/c from ED?: No Referrals: None,Stated [Primary Care Provider] - 1-2 days
[2023-10-10] MEDS: LIDOCAINE 4% PATCH TOPICAL ONE (00:57)
[2023-10-10] MEDS: KETOROLAC 15 MG/ML 1 ML VIAL IM STA (00:57)
--- NOTE | 2023-10-10 01:19 | XR ---
EXAM: XR Abdomen, 1 View CLINICAL HISTORY: ITS.REASON XR Reason: flank pain TECHNIQUE: Frontal supine view of the abdomen/pelvis. COMPARISON: No relevant prior studies available. FINDINGS: Gastrointestinal tract: Unremarkable. No dilation. Organs: Cholecystectomy clips. Bones/joints: Unremarkable. No acute fracture. IMPRESSION: No acute findings.
[2023-10-10 01:21] VITALS: BP 128/80; PULSE 78; RESP 18
== END 2023-10-10 01:04 | disposition home or self-care (01) ==
LOC: EC 21:17
DX: R10.9 Unspecified abdominal pain (principal); Z88.2 Allergy status to sulfonamides; Z88.1 Allergy status to other antibiotic agents; Z91.048 Other nonmedicinal substance allergy status; Z91.09 Other allergy status, other than to drugs and biological substances; Z88.0 Allergy status to penicillin; Z88.8 Allergy status to other drugs, medicaments and biological substances
CPT/HCPCS: 99284; 81003; 74018; 96372 ×2; J1885 ×2; 96374; 96376

== ENCOUNTER 2023-10-19 05:11 | Emergency (ER) | payer OTHER ==
[2023-10-19 05:52] VITALS: RESP 18; TEMP 98.2
[2023-10-19] MEDS: SODIUM CHLORIDE 0.9% 1,000 ML IV STA (06:21)
[2023-10-19] MEDS: LIDOCAINE 4% PATCH TOPICAL ONE (06:21)
[2023-10-19] MEDS: KETOROLAC 15 MG/ML 1 ML VIAL IVP STA ×2 (06:21→08:05)
[2023-10-19] MEDS: ONDANSETRON 4 MG/2 ML VIAL IVP STA ×2 (06:22→08:07)
--- NOTE | 2023-10-19 06:25 | ED ---
Chest Pain HPI - General Chief Complaint: Chest Pain Stated Complaint: chest pressure Time Seen by Provider: 10/19/23 06:00 Source: patient, RN notes reviewed Mode of arrival: ambulatory Limitations: no limitations - History of Present Illness Initial Comments: This is a 33-year-old female who presents to the emergency department for chest pain. States that it is primarily right-sided. Also reports pain/pressure in the right mid back. The pain in the chest and back worsens when she tries to move or take a deep breath. She has mild nausea, which she states may also be due to a minor IBS flareup. Denies any personal or family history of cardiac issues. MD Complaint: chest pain - Related Data Home Medications Medication Instructions Recorded Confirmed Omeprazole 20 mg PO BID 03/07/22 03/17/23 Albuterol Inhaler [Ventolin Hfa 2 puff INHALATION RT-Q6H PRN 02/13/23 03/17/23 Inhaler] Escitalopram [Lexapro] 10 mg PO HS 03/17/23 03/17/23 Meloxicam [Mobic] 7.5 mg PO BID 03/17/23 03/17/23 Ondansetron Odt [Zofran Odt] 4 mg PO Q12HR PRN 03/17/23 03/17/23 Orphenadrine Citrate [Orphenadrine 100 mg PO BID 03/17/23 03/17/23 Citrate ER] Previous Rx's Medication Instructions Recorded Cyclobenzaprine [Flexeril] 5 mg PO TID PRN #15 tablet 05/27/23 Allergies Allergy/AdvReac Type Severity Reaction Status Date / Time sulfamethoxazole Allergy Severe Anaphylaxis Verified 10/13/23 22:56 [From Bactrim] trimethoprim [From Bactrim] Allergy Severe Anaphylaxis Verified 10/13/23 22:56 adhesive tape Allergy Rash/Hives Verified 10/13/23 22:56 aloe vera Allergy Rash/Hives Verified 10/13/23 22:56 azithromycin Allergy Rash/Hives Verified 10/13/23 22:56 cephalexin Allergy Rash/Hives Verified 10/13/23 22:56 metronidazole [From Flagyl] Allergy Rash/Hives Verified 10/13/23 22:56 Penicillins Allergy Rash/Hives Verified 10/13/23 22:56 alprazolam [From Xanax] AdvReac MAKES Verified 10/13/23 22:56 PARANOID dicyclomine [From Bentyl] AdvReac constipatio Verified 10/13/23 22:56 n Review of Systems ROS Statement: Those systems with pertinent positive or pertinent negative responses have been documented in the HPI. ROS Other: All systems not noted in ROS Statement are negative. Past Medical History Past Medical History: Blood Disorder, GERD/Reflux Additional Past Medical History / Comment(s): Endometriosis, polycystic ovarian syndrome. IRON DEFICIENCY ANEMIA. Stomach Ulcer. ovarian cyst History of Any Multi-Drug Resistant Organisms: None Reported Past Surgical History: Ablation, Section, Cholecystectomy, Hernia Repair, Hysterectomy, Tubal Ligation, Uterine Ablation Additional Past Surgical History / Comment(s): Laparoscopy X2, Section X3. Right ovary and right tube removed - 2019. cyst removed from chest. AUG 2020 - ADHESION REMOVAL FROM PAST . Vaginal. pelvic biopsy 05/11. PCOS Past Anesthesia/Blood Transfusion Reactions: No Reported Reaction Past Psychological History: Anxiety, Depression Smoking Status: Never smoker Past Alcohol Use History: Occasional Past Drug Use History: None Reported - Past Family History Mother Family Medical History: Hyperlipidemia Additional Family Medical History / Comment(s): Depression and anxiety. General Exam Limitations: no limitations General appearance: alert, in no apparent distress Respiratory exam: Present: normal lung sounds bilaterally, chest wall tenderness. Absent: respiratory distress, wheezes, rales, rhonchi, stridor Cardiovascular Exam: Present: regular rate, normal rhythm, normal heart sounds. Absent: systolic murmur, diastolic murmur, rubs, gallop, clicks GI/Abdominal exam: Present: soft, normal bowel sounds. Absent: distended, tenderness, guarding, rebound, rigid Back exam: Present: tenderness (Right mid back) Neurological exam: Present: alert, oriented X3, CN II-XII intact Psychiatric exam: Present: normal affect, normal mood Skin exam: Present: warm, dry, intact, normal color. Absent: rash Course Vital Signs 10/19/23 10/19/23 05:12 07:45 Temperature 98.2 F Pulse Rate 80 76 Respiratory 18 18 Rate Blood Pressure 136/81 116/78 O2 Sat by Pulse 100 94 L Oximetry Chest Pain MDM - MDM This is a 33-year-old female who presents to the emergency department for chest pain. Was pt. sent in by a medical professional or institution? @ -No Did you speak to anyone other than the patient for history? @ -No Did you review nursing and triage notes? @ -Yes, and I agree, it is accurate with regards to the patient's symptoms. Were old charts reviewed? @ -No Differential Diagnosis? @ -Differential Chest Pain: Stable Angina, Unstable Angina, STEMI, NSTEMI Aortic Dissection, Pneumothorax, Musculoskeletal, Esophageal Spasm GERD, Cholecystitis, Pancreatitis, Zoster, this is not meant to be an all-inclusive list. EKG interpreted by me (3pts min.)? @ -EKG interpreted by me demonstrating the following: Sinus rhythm. Ventricular rate 76 bpm, AL interval 159 ms, QRS duration 85 ms, QTc 402 ms. X-rays interpreted by me (1pt min.)? @ -Chest x-ray obtained, my interpretation identifies no localized consolidations or infiltrates. CT interpreted by me (1pt min.)? @ -Not obtained U/S interpreted by me (1pt. min.)? @ -Not obtained What testing was considered but not performed? (CT, X-rays, U/S, labs)? Why? @ -None What meds were considered but not given? Why? @ -None Did you discuss the management of the patient with other professionals? @ -No Did you reconcile home meds? @ -No Was smoking cessation discussed for >3mins.? @ -No Was critical care preformed (if so, how long)? @ -No Were there social determinants of health that impacted care today? How? (Homelessness, low income, unemployed, alcoholism, drug addiction, transportation, low edu. Level, literacy, decrease access to med. care, alf, rehab)? @ -No Was there de-escalation of care discussed even if they declined? (Discuss DNR or withdrawal of care, Hospice)? @ -No What co-morbidities impacted this encounter? (DM, HTN, Smoking, COPD, CAD, Cancer, CVA, Hep., AIDS, mental health diagnosis, sleep apnea, morbid obesity)? @ -IBS Was patient admitted / discharged? @ -Discharged. Lab work unremarkable. Urinalysis negative for signs of infection. COVID, influenza, RSV testing were negative. Chest x-ray reveals no acute process. Patient's symptoms had improved while in the emergency department. Advised that this may be muscular in nature. Advised she try taking her muscle relaxants at home to see if that offers any benefit to her symptoms. Patient discharged home in stable condition and advised to follow-up with her primary care provider. Undiagnosed new problem with uncertain prognosis? @ -None Drug Therapy requiring intensive monitoring for toxicity (Heparin, Nitro, Insulin, Cardizem)? @ -None Were any procedures done? @ -None Diagnosis/symptom? @ -Chest pain Acute, or Chronic, or Acute on Chronic? @ -Acute Uncomplicated (without systemic symptoms) or Complicated (systemic symptoms)? @ -Uncomplicated Side effects of treatment? @ -None Exacerbation, Progression, or Severe Exacerbation] @ -Not applicable Poses a threat to life or bodily function? @ -No Return precautions reviewed in depth, the patient is instructed to return to the emergency department with any new, worsening, or concerning symptoms. Patient verbalized understanding. This case was discussed in detail with the attending ED physician, Dr. Disla. Presentation, findings, and treatment plan discussed in detail as well. Disposition Clinical Impression: Chest pain, Back pain Disposition: HOME SELF-CARE Instructions (If sedation given, give patient instructions): Chest Pain (ED), Noncardiac Chest Pain (ED) Additional Instructions: Return to the emergency department with any new, worsening, or concerning symptoms. You can try taking your muscle relaxants to see if that helps with your pain. Follow up with your primary care provider in 1-2 days. Is patient prescribed a controlled substance at d/c from ED?: No Referrals: None,Stated [Primary Care Provider] - 1-2 days Time of Disposition: 08:12
[2023-10-19 06:30] LABS: Basophils % (A) 0 %; Eosinophils # (A) 0.1 k/uL (0-0.7); Eosinophils % (A) 2 %; HCT 31.9 % (34.0-46.0); HGB 10.7 gm/dL (11.4-16.0); Lymphocytes # (A) 1.8 k/uL (1.0-4.8); Lymphocytes % (A) 37 %; MCH 30.8 pg (25.0-35.0); MCHC 33.5 g/dL (31.0-37.0); Mean Platelet Volume 7.5; Monocytes # (A) 0.2 k/uL (0-1.0); Monocytes % (A) 5 %; Neutrophils # (A) 2.7 k/uL (1.3-7.7); Neutrophils % (A) 54 %; Platelet Count 216 k/uL (150-450); RBC 3.47 m/uL (3.80-5.40); RDW 12.7 % (11.5-15.5); WBC 4.9 k/uL (3.8-10.6)
[2023-10-19 06:32] LABS: Appearance,Urine Clear (Clear); Bilirubin,Urine Negative (Negative); Blood,Urine Negative (Negative); Color,Urine Colorless; Glucose,Urine (UA) Negative (Negative); Ketones,Urine Negative (Negative); Leukocyte Esterase,Urine Negative (Negative); Nitrite,Urine Negative (Negative); PH, Urine 7.5 (5.0-8.0); Protein,Urine Negative (Negative); Urobilinogen,Urine <2.0 mg/dL (<2.0)
[2023-10-19 06:40] LABS: INR 0.9 (<1.2); Partial Thromboplastin Time 24.7 sec (22.0-30.0); Prothrombin Time 10.1 sec (10.0-12.5)
--- NOTE | 2023-10-19 06:58 | XR ---
EXAMINATION TYPE: XR chest 2V DATE OF EXAM: 10/19/2023 COMPARISON: 03/27/2023 INDICATION: Chest pain TECHNIQUE: Frontal and lateral views of the chest are obtained. FINDINGS: The heart size is normal. The pulmonary vasculature is normal. The lungs are clear. IMPRESSION: 1. No acute pulmonary process.
[2023-10-19 07:30] LABS: ALT 25 U/L (4-34); AST 31 U/L (14-36); African American GFR (CKD) >90 (>60 ml/min/1.73 sqM); Albumin 3.7 g/dL (3.5-5.0); Alkaline Phosphatase 97 U/L (38-126); Anion Gap 5 mmol/L; Blood Urea Nitrogen 15 mg/dL (7-17); Calcium 9.2 mg/dL (8.4-10.2); Carbon Dioxide 28 mmol/L (22-30); Chloride 107 mmol/L (98-107); Glucose 109 mg/dL (74-99); Magnesium 2.1 mg/dL (1.6-2.3); Non-African American GFR(CKD) >90 (>60 ml/min/1.73 sqM); Potassium 3.6 mmol/L (3.5-5.1); Sodium 140 mmol/L (137-145); Total Bilirubin 0.6 mg/dL (0.2-1.3); Total Protein 6.4 g/dL (6.3-8.2)
[2023-10-19 07:51] VITALS: BP 116/78; PULSE 76
[2023-10-19] MEDS: HYDROmorphone 1 MG/ML 1 ML SYRINGE IVP STA (08:05)
== END 2023-10-19 09:04 | disposition home or self-care (01) ==
LOC: EC 05:11
DX: R07.89 Other chest pain (principal); M54.9 Dorsalgia, unspecified; Z88.2 Allergy status to sulfonamides; Z88.0 Allergy status to penicillin; Z88.1 Allergy status to other antibiotic agents; Z91.09 Other allergy status, other than to drugs and biological substances; Z88.8 Allergy status to other drugs, medicaments and biological substances
CPT/HCPCS: 36415; 93005; 80053; 83735; 84484; 85025; 85610; 85730; 81003; 87636; 71046; 99285; 96374; 96375 ×2; 96376 ×2; 96361; J2405; J1170; J1885

== ENCOUNTER 2023-11-03 18:41 | Emergency (ER) | payer OTHER ==
[2023-11-03 19:17] VITALS: RESP 16; TEMP 97.9
[2023-11-03 20:06] LABS: Appearance,Urine Clear (Clear); Bilirubin,Urine Negative (Negative); Blood,Urine Negative (Negative); Color,Urine Yellow; Glucose,Urine (UA) Negative (Negative); Hyaline Casts,Urine 2 /lpf (0-2); Ketones,Urine Negative (Negative); Leukocyte Esterase,Urine Trace (Negative); Mucus,Urine Many /hpf; Nitrite,Urine Negative (Negative); Protein,Urine 1+ (Negative); RBC,Urine 1 /hpf (0-5); Specific Gravity,Urine 1.036 (1.001-1.035); Squamous Epithelial Cell,Urine 1 /hpf (0-4); WBC,Urine 5 /hpf (0-5)
[2023-11-03 20:14] LABS: Basophils % (A) 1 %; Eosinophils % (A) 1 %; HCT 37.3 % (34.0-46.0); HGB 12.4 gm/dL (11.4-16.0); Lymphocytes # (A) 1.9 k/uL (1.0-4.8); Lymphocytes % (A) 41 %; MCH 30.6 pg (25.0-35.0); MCHC 33.4 g/dL (31.0-37.0); MCV 91.7 fL (80.0-100.0); Mean Platelet Volume 7.6; Monocytes # (A) 0.2 k/uL (0-1.0); Monocytes % (A) 5 %; Neutrophils # (A) 2.3 k/uL (1.3-7.7); Neutrophils % (A) 50 %; Platelet Count 227 k/uL (150-450); RBC 4.06 m/uL (3.80-5.40); WBC 4.6 k/uL (3.8-10.6)
[2023-11-03] MEDS: SODIUM CHLORIDE 0.9% 1,000 ML IV STA (20:17)
[2023-11-03] MEDS: ONDANSETRON 4 MG/2 ML VIAL IVP STA (20:18)
[2023-11-03] MEDS: HYDROmorphone 0.5 MG/0.5 ML SYRINGE IVP STA ×2 (20:19→22:04)
[2023-11-03] MEDS: PANTOPRAZOLE 40 MG/10 ML VIAL IVP STA (20:19)
[2023-11-03 20:25] LABS: INR 0.9 (<1.2); Partial Thromboplastin Time 25.4 sec (22.0-30.0); Prothrombin Time 10.1 sec (10.0-12.5)
[2023-11-03] MEDS: KETOROLAC 15 MG/ML 1 ML VIAL IVP STA (20:27)
[2023-11-03 20:43] LABS: ALT 23 U/L (4-34); African American GFR (CKD) >90 (>60 ml/min/1.73 sqM); Albumin 4.7 g/dL (3.5-5.0); Amylase 53 U/L (30-110); Anion Gap 9 mmol/L; Blood Urea Nitrogen 20 mg/dL (7-17); Calcium 10.1 mg/dL (8.4-10.2); Carbon Dioxide 27 mmol/L (22-30); Chloride 104 mmol/L (98-107); Glucose 92 mg/dL (74-99); Lipase 35 U/L (23-300); Non-African American GFR(CKD) >90 (>60 ml/min/1.73 sqM); Sodium 140 mmol/L (137-145); Total Bilirubin 1.3 mg/dL (0.2-1.3)
[2023-11-03 20:45] LABS: HCG,Qualitative Serum Not Detected
[2023-11-03 21:31] LABS: AST 32 U/L (14-36); Alkaline Phosphatase 114 U/L (38-126); Potassium 4.4 mmol/L (3.5-5.1)
--- NOTE | 2023-11-03 22:00 | ED ---
General Adult HPI - General Chief complaint: Abdominal Pain Stated complaint: NVD abd pain Time Seen by Provider: 11/03/23 19:10 Source: patient, RN notes reviewed, old records reviewed Mode of arrival: ambulatory Limitations: no limitations - History of Present Illness Initial comments: Patient is a 33-year-old female who presents emergency department chronic abdominal pain. Has a history of endometriosis, IBS. States this is her typical pain this is not associated with diarrhea. Comes and goes for over a week. No new symptoms. States this is a bad flare and presents for pain meds. Denies any fevers, chills, cough. Has no urinary complaints. Has no other acute complaints at this time. Presents for further evaluation. - Related Data Home Medications Medication Instructions Recorded Confirmed Omeprazole 20 mg PO BID 03/07/22 03/17/23 Albuterol Inhaler [Ventolin Hfa 2 puff INHALATION RT-Q6H PRN 02/13/23 03/17/23 Inhaler] Escitalopram [Lexapro] 10 mg PO HS 03/17/23 03/17/23 Meloxicam [Mobic] 7.5 mg PO BID 03/17/23 03/17/23 Ondansetron Odt [Zofran Odt] 4 mg PO Q12HR PRN 03/17/23 03/17/23 Orphenadrine Citrate [Orphenadrine 100 mg PO BID 03/17/23 03/17/23 Citrate ER] Previous Rx's Medication Instructions Recorded Cyclobenzaprine [Flexeril] 5 mg PO TID PRN #15 tablet 05/27/23 Allergies Allergy/AdvReac Type Severity Reaction Status Date / Time sulfamethoxazole Allergy Severe Anaphylaxis Verified 10/13/23 22:56 [From Bactrim] trimethoprim [From Bactrim] Allergy Severe Anaphylaxis Verified 10/13/23 22:56 adhesive tape Allergy Rash/Hives Verified 10/13/23 22:56 aloe vera Allergy Rash/Hives Verified 10/13/23 22:56 azithromycin Allergy Rash/Hives Verified 10/13/23 22:56 cephalexin Allergy Rash/Hives Verified 10/13/23 22:56 metronidazole [From Flagyl] Allergy Rash/Hives Verified 10/13/23 22:56 Penicillins Allergy Rash/Hives Verified 10/13/23 22:56 alprazolam [From Xanax] AdvReac MAKES Verified 10/13/23 22:56 PARANOID dicyclomine [From Bentyl] AdvReac constipatio Verified 10/13/23 22:56 n Review of Systems ROS Statement: Those systems with pertinent positive or pertinent negative responses have been documented in the HPI. Review of Systems: CONST: Denies fever EYES: Denies blurry vision ENT: Denies nasal congestion C/V: Denies Chest pain RESP: Denies shortness of breath GI: Endorses abdominal pain : Denies dysuria SKIN: Denies rash. MSK: Denies joint pain. NEURO: Denies headache ROS Other: All systems not noted in ROS Statement are negative. Past Medical History Past Medical History: Blood Disorder, GERD/Reflux Additional Past Medical History / Comment(s): Endometriosis, polycystic ovarian syndrome. IRON DEFICIENCY ANEMIA. Stomach Ulcer. ovarian cyst History of Any Multi-Drug Resistant Organisms: None Reported Past Surgical History: Ablation, Section, Cholecystectomy, Hernia Repair, Hysterectomy, Tubal Ligation, Uterine Ablation Additional Past Surgical History / Comment(s): Laparoscopy X2, Section X3. Right ovary and right tube removed - 2019. cyst removed from chest. AUG 2020 - ADHESION REMOVAL FROM PAST . Vaginal. pelvic biopsy 05/11. PCOS Past Anesthesia/Blood Transfusion Reactions: No Reported Reaction Past Psychological History: Anxiety, Depression Smoking Status: Never smoker Past Alcohol Use History: Occasional Past Drug Use History: None Reported - Past Family History Mother Family Medical History: Hyperlipidemia Additional Family Medical History / Comment(s): Depression and anxiety. General Exam - General Exam Comments Initial Comments: General: Appears in no acute distress. HEAD: Normal with no signs of head trauma. EYES: PERRLA, EOMI, conjunctiva normal, no discharge. ENT: Hearing grossly intact, normal oropharynx. RESPIRATORY: Clear breath sounds bilaterally. No wheezes, rales, or rhonchi. C/V: Regular rate and rhythm. S1 and S2 auscultated, no edema, peripheral pulses 2+ and intact throughout ABD: Abdomen soft, nondistended. No focal tenderness. Somewhat generalized. No guarding. No rebound tenderness. No peritoneal signs. EXT: Normal range of motion, no obvious deformity SKIN: No rashes or lesions observed on exposed skin. NEURO: Alert and oriented x 4. Limitations: no limitations Course Vital Signs 11/03/23 11/03/23 18:45 22:28 Temperature 97.9 F Pulse Rate 82 74 Respiratory 16 16 Rate Blood Pressure 116/68 121/71 O2 Sat by Pulse 100 97 Oximetry Medical Decision Making - Medical Decision Making Was pt. sent in by a medical professional or institution (, [facility], [facility], urgent care, hospital, or group home...) When possible be specific @ -No Did you speak to anyone other than the patient for history (EMS, parent, family, police, friend...)? What history was obtained from this source @ -No Did you review nursing and triage notes (agree or disagree)? Why? @ -I reviewed and agree with nursing and triage notes Were old charts reviewed (outside hosp., previous admission, EMS record, old EKG, old radiological studies, urgent care reports/EKG's, group home records)? Report findings @ -Old charts reviewed Differential Diagnosis (chest pain, altered mental status, abdominal pain women, abdominal pain men, vaginal bleeding, weakness, fever, dyspnea, syncope, headache, dizziness, GI bleed, back pain, seizure, CVA, palpatations, mental health, musculoskeletal)? @ -Diarrhea, IBS flare, chronic abdominal pain, endometriosis. This list is not all inclusive. EKG interpreted by me (3pts min.). @ -None done X-rays interpreted by me (1pt min.). @ -None done CT interpreted by me (1pt min.). @ -None done U/S interpreted by me (1pt. min.). @ -None done What testing was considered but not performed or refused? (CT, X-rays, U/S, labs)? Why? @ -Discussed imaging however patient is a frequent visitor for similar complaints or ER and we discussed at length and decided to only obtain imaging if laboratory studies warranted at that she has been imaged frequently for similar complaints in the past. She was in agreement this plan. She believes this is likely just her chronic flares. What meds were considered but not given or refused? Why? @ -None Did you discuss the management of the patient with other professionals (brenda ornelas i.e. , [facility], [facility], lab, RT, psych nurse, social work instructor, asbestos removal worker, teacher, retail loss prevention officer, rehabilitation caseworker)? Give summary @ -No Was smoking cessation discussed for >3mins.? @ -No Was critical care preformed (if so, how long)? @ -No Were there social determinants of health that impacted care today? How? (Homelessness, low income, unemployed, alcoholism, drug addiction, transportation, low edu. Level, literacy, decrease access to med. care, group home, rehab)? @ -No Was there de-escalation of care discussed even if they declined (Discuss DNR or withdrawal of care, Hospice)? DNR status @ -No What co-morbidities impacted this encounter? (DM, HTN, Smoking, COPD, CAD, Cancer, CVA, ARF, Chemo, Hep., AIDS, mental health diagnosis, sleep apnea, morbid obesity)? @ -Endometriosis, IBS Was patient admitted / discharged? Hospital course, mention meds given and route, prescriptions, significant lab abnormalities, going to OR and other pertinent info. @ -Based on patient's presentation and physical exam, presents with chronic symptoms of abdominal pain and diarrhea. Is asking for analgesia medications. Patient will be given IV analgesia medications as well as fluids and antiemetics. Vital signs within acceptable limits. We will obtain abdominal laboratory studies. Will not obtain imaging at this time and less warranted by laboratory studies. She was in agreement this plan as we made this plan together. She is frequently here for similar complaints and receives multiple CT scans regularly and I would like to avoid excess radiation at this time. She was in agreement this plan. Laboratory studies are all within acceptable limits. This includes a negative test. Vital signs remained within acceptable limits. On reevaluation, patient is feeling improved. She will be discharged home at this time. She was in agreement this plan. I instructed the patient to follow up with their PCP in the next 1-3 days. I explained that the patient should return to the emergency department if they experience any worsening symptoms. Strict return precautions were discussed with the patient. The patient expressed understanding of these instructions. I answered all questions that the patient had. The patient was discharged home in good condition with their prescriptions and follow up information. Undiagnosed new problem with uncertain prognosis? @ -No Drug Therapy requiring intensive monitoring for toxicity (Heparin, Nitro, Insulin, Cardizem)? @ -No Were any procedures done? @ -No Diagnosis/symptom? @ -Chronic abdominal pain Acute, or Chronic, or Acute on Chronic? @ -Acute on chronic Uncomplicated (without systemic symptoms) or Complicated (systemic symptoms)? @ -Complicated Side effects of treatment? @ -No Exacerbation, Progression, or Severe Exacerbation? @ -No Poses a threat to life or bodily function? How? (Chest pain, USA, VT, pneumonia, PE, COPD, DKA, ARF, appy, cholecystitis, CVA, Diverticulitis, Homicidal, Suicidal, threat to staff... and all critical care pts) @ -Unlikely - Lab Data Result diagrams: 11/03/23 19:50 11/03/23 19:50 Lab Results 11/03/23 11/03/23 11/03/23 Range/Units 19:50 19:50 19:50 WBC 4.6 (3.8-10.6) k/uL RBC 4.06 (3.80-5.40) m/uL Hgb 12.4 (11.4-16.0) gm/dL Hct 37.3 (34.0-46.0) % MCV 91.7 (80.0-100.0) fL MCH 30.6 (25.0-35.0) pg MCHC 33.4 (31.0-37.0) g/dL RDW 13.0 (11.5-15.5) % Plt Count 227 (150-450) k/uL MPV 7.6 Neutrophils % 50 % Lymphocytes % 41 % Monocytes % 5 % Eosinophils % 1 % Basophils % 1 % Neutrophils # 2.3 (1.3-7.7) k/uL Lymphocytes # 1.9 (1.0-4.8) k/uL Monocytes # 0.2 (0-1.0) k/uL Eosinophils # 0.0 (0-0.7) k/uL Basophils # 0.0 (0-0.2) k/uL PT 10.1 (10.0-12.5) sec INR 0.9 (<1.2) APTT 25.4 (22.0-30.0) sec Sodium 140 (137-145) mmol/L Potassium 4.4 (3.5-5.1) mmol/L Chloride 104 (98-107) mmol/L Carbon Dioxide 27 (22-30) mmol/L Anion Gap 9 mmol/L BUN 20 H (7-17) mg/dL Creatinine 0.84 (0.52-1.04) mg/dL Est GFR (CKD-EPI)AfAm >90 (>60 ml/min/1.73 sqM) Est GFR (CKD-EPI)NonAf >90 (>60 ml/min/1.73 sqM) Glucose 92 (74-99) mg/dL Plasma Lactic Acid Santhosh (0.7-2.0) mmol/L Calcium 10.1 (8.4-10.2) mg/dL Total Bilirubin 1.3 (0.2-1.3) mg/dL AST 32 (14-36) U/L ALT 23 (4-34) U/L Alkaline Phosphatase 114 (38-126) U/L Total Protein 8.0 (6.3-8.2) g/dL Albumin 4.7 (3.5-5.0) g/dL Amylase 53 (30-110) U/L Lipase 35 (23-300) U/L HCG, Qual Not Detected Urine Color Urine Appearance (Clear) Urine pH (5.0-8.0) Ur Specific [place] (1.001-1.035) Urine Protein (Negative) Urine Glucose (UA) (Negative) Urine Ketones (Negative) Urine Blood (Negative) Urine Nitrite (Negative) Urine Bilirubin (Negative) Urine Urobilinogen (<2.0) mg/dL Ur Leukocyte Esterase (Negative) Urine RBC (0-5) /hpf Urine WBC (0-5) /hpf Ur Squamous Epith Cells (0-4) /hpf Hyaline Casts (0-2) /lpf Urine Mucus (None) /hpf Influenza Type A (PCR) (Not Detectd) Influenza Type B (PCR) (Not Detectd) RSV (PCR) (Not Detectd) SARS-CoV-2 (PCR) (Not Detectd) 11/03/23 11/03/23 11/03/23 Range/Units 19:50 19:56 20:19 WBC (3.8-10.6) k/uL RBC (3.80-5.40) m/uL Hgb (11.4-16.0) gm/dL Hct (34.0-46.0) % MCV (80.0-100.0) fL MCH (25.0-35.0) pg MCHC (31.0-37.0) g/dL RDW (11.5-15.5) % Plt Count (150-450) k/uL MPV Neutrophils % % Lymphocytes % % Monocytes % % Eosinophils % % Basophils % % Neutrophils # (1.3-7.7) k/uL Lymphocytes # (1.0-4.8) k/uL Monocytes # (0-1.0) k/uL Eosinophils # (0-0.7) k/uL Basophils # (0-0.2) k/uL PT (10.0-12.5) sec INR (<1.2) APTT (22.0-30.0) sec Sodium (137-145) mmol/L Potassium (3.5-5.1) mmol/L Chloride (98-107) mmol/L Carbon Dioxide (22-30) mmol/L Anion Gap mmol/L BUN (7-17) mg/dL Creatinine (0.52-1.04) mg/dL Est GFR (CKD-EPI)AfAm (>60 ml/min/1.73 sqM) Est GFR (CKD-EPI)NonAf (>60 ml/min/1.73 sqM) Glucose (74-99) mg/dL Plasma Lactic Acid Santhosh 0.8 (0.7-2.0) mmol/L Calcium (8.4-10.2) mg/dL Total Bilirubin (0.2-1.3) mg/dL AST (14-36) U/L ALT (4-34) U/L Alkaline Phosphatase (38-126) U/L Total Protein (6.3-8.2) g/dL Albumin (3.5-5.0) g/dL Amylase (30-110) U/L Lipase (23-300) U/L HCG, Qual Urine Color Yellow Urine Appearance Clear (Clear) Urine pH 6.0 (5.0-8.0) Ur Specific [place] 1.036 H (1.001-1.035) Urine Protein 1+ H (Negative) Urine Glucose (UA) Negative (Negative) Urine Ketones Negative (Negative) Urine Blood Negative (Negative) Urine Nitrite Negative (Negative) Urine Bilirubin Negative (Negative) Urine Urobilinogen 2.0 (<2.0) mg/dL Ur Leukocyte Esterase Trace H (Negative) Urine RBC 1 (0-5) /hpf Urine WBC 5 (0-5) /hpf Ur Squamous Epith Cells 1 (0-4) /hpf Hyaline Casts 2 (0-2) /lpf Urine Mucus Many H (None) /hpf Influenza Type A (PCR) Not Detected (Not Detectd) Influenza Type B (PCR) Not Detected (Not Detectd) RSV (PCR) Not Detected (Not Detectd) SARS-CoV-2 (PCR) Not Detected (Not Detectd) Disposition Clinical Impression: Chronic abdominal pain Disposition: HOME SELF-CARE Condition: Good Instructions (If sedation given, give patient instructions): Abdominal Pain (ED) Is patient prescribed a controlled substance at d/c from ED?: No Referrals: None,Stated [Primary Care Provider] - 1-2 days Forms: PH Area PCPs Time of Disposition: 22:00
[2023-11-03] MEDS: ACET/COD 300 MG/30 MG STARTER PACK 6 TAB BTL PO STA (22:05)
[2023-11-03] MEDS: ONDANSETRON 4 MG ODT STARTER PACK 2 TAB BTL PO STA (22:05)
[2023-11-03 22:39] VITALS: BP 121/71; PULSE 74
== END 2023-11-03 22:28 | disposition home or self-care (01) ==
LOC: EC 18:41
DX: G89.29 Other chronic pain (principal); R10.9 Unspecified abdominal pain; Z88.2 Allergy status to sulfonamides; Z88.1 Allergy status to other antibiotic agents; Z91.09 Other allergy status, other than to drugs and biological substances; Z88.0 Allergy status to penicillin; Z88.8 Allergy status to other drugs, medicaments and biological substances
CPT/HCPCS: 36415; 80053; 82150; 83605; 83690; 85025; 85610; 85730; 81001; 84703; 87636; 99284; 96374; 96375 ×4; 96361; J2405; J1885; S0119; C9113; J1170

== ENCOUNTER 2023-11-06 20:22 | Emergency (ER) | payer OTHER ==
[2023-11-06 21:03] LABS: Basophils % (A) 0 %; Eosinophils % (A) 1 %; HCT 32.6 % (34.0-46.0); Lymphocytes # (A) 1.1 k/uL (1.0-4.8); Lymphocytes % (A) 31 %; MCH 30.6 pg (25.0-35.0); MCHC 33.7 g/dL (31.0-37.0); MCV 90.7 fL (80.0-100.0); Mean Platelet Volume 8.5; Monocytes # (A) 0.2 k/uL (0-1.0); Monocytes % (A) 5 %; Neutrophils # (A) 2.1 k/uL (1.3-7.7); Neutrophils % (A) 61 %; Platelet Count 164 k/uL (150-450); WBC 3.5 k/uL (3.8-10.6)
[2023-11-06] MEDS: KETOROLAC 15 MG/ML 1 ML VIAL IVP STA (21:07)
[2023-11-06] MEDS: ONDANSETRON 4 MG/2 ML VIAL IVP STA (21:07)
[2023-11-06] MEDS: HYDROmorphone 1 MG/ML 1 ML SYRINGE IVP STA (21:13)
[2023-11-06] MEDS: PANTOPRAZOLE 40 MG/10 ML VIAL IVP STA (21:16)
[2023-11-06] MEDS: SODIUM CHLORIDE 0.9% 1,000 ML IV ONE (21:17)
[2023-11-06 21:20] LABS: ALT 28 U/L (4-34); AST 38 U/L (14-36); African American GFR (CKD) >90 (>60 ml/min/1.73 sqM); Albumin 4.1 g/dL (3.5-5.0); Alkaline Phosphatase 105 U/L (38-126); Anion Gap 6 mmol/L; Blood Urea Nitrogen 12 mg/dL (7-17); Calcium 9.3 mg/dL (8.4-10.2); Carbon Dioxide 27 mmol/L (22-30); Chloride 107 mmol/L (98-107); Glucose 104 mg/dL (74-99); Non-African American GFR(CKD) >90 (>60 ml/min/1.73 sqM); Potassium 3.7 mmol/L (3.5-5.1); Sodium 140 mmol/L (137-145); Total Bilirubin 0.8 mg/dL (0.2-1.3); Total Protein 6.7 g/dL (6.3-8.2)
[2023-11-06 21:40] LABS: Appearance,Urine Clear (Clear); Bilirubin,Urine Negative (Negative); Blood,Urine Negative (Negative); Color,Urine Colorless; Glucose,Urine (UA) Negative (Negative); Ketones,Urine Negative (Negative); Leukocyte Esterase,Urine Negative (Negative); Nitrite,Urine Negative (Negative); Protein,Urine Negative (Negative); Specific Gravity,Urine 1.004 (1.001-1.035); Urobilinogen,Urine <2.0 mg/dL (<2.0)
--- NOTE | 2023-11-06 22:25 | ED ---
Nausea/Vomiting/Diarrhea HPI - General Chief complaint: Nausea/Vomiting/Diarrhea Stated complaint: Nausea Time Seen by Provider: 11/06/23 20:31 Source: patient Mode of arrival: ambulatory Limitations: no limitations - History of Present Illness Initial comments: 33-year-old female presenting with chief complaint of nausea vomiting and diarrhea. This has been ongoing for few days. She was seen here few days ago and reports that her symptoms improved after medications were given. However she had worsening of her symptoms again.. She admits to some abdominal pain, located primarily in the pelvis. Patient has history of endometriosis and states that this pain feels consistent with her chronic abdominal pain. She states that she often gets a flareup of pain when she has diarrhea. She has a history of hysterectomy. No chest pain or difficulty breathing. No fevers or URI-like symptoms. No urinary symptoms. No hematochezia or melena. - Related Data Home Medications Medication Instructions Recorded Confirmed Omeprazole 20 mg PO BID 03/07/22 03/17/23 Albuterol Inhaler [Ventolin Hfa 2 puff INHALATION RT-Q6H PRN 02/13/23 03/17/23 Inhaler] Escitalopram [Lexapro] 10 mg PO HS 03/17/23 03/17/23 Meloxicam [Mobic] 7.5 mg PO BID 03/17/23 03/17/23 Ondansetron Odt [Zofran Odt] 4 mg PO Q12HR PRN 03/17/23 03/17/23 Orphenadrine Citrate [Orphenadrine 100 mg PO BID 03/17/23 03/17/23 Citrate ER] Previous Rx's Medication Instructions Recorded Cyclobenzaprine [Flexeril] 5 mg PO TID PRN #15 tablet 05/27/23 Ondansetron Odt [Zofran Odt] 4 mg PO Q8HR PRN #20 tab 11/06/23 Allergies Allergy/AdvReac Type Severity Reaction Status Date / Time sulfamethoxazole Allergy Severe Anaphylaxis Verified 11/06/23 20:29 [From Bactrim] trimethoprim [From Bactrim] Allergy Severe Anaphylaxis Verified 11/06/23 20:29 adhesive tape Allergy Rash/Hives Verified 11/06/23 20:29 aloe vera Allergy Rash/Hives Verified 11/06/23 20:29 azithromycin Allergy Rash/Hives Verified 11/06/23 20:29 cephalexin Allergy Rash/Hives Verified 11/06/23 20:29 metronidazole [From Flagyl] Allergy Rash/Hives Verified 11/06/23 20:29 Penicillins Allergy Rash/Hives Verified 11/06/23 20:29 alprazolam [From Xanax] AdvReac MAKES Verified 11/06/23 20:29 PARANOID dicyclomine [From Bentyl] AdvReac constipatio Verified 11/06/23 20:29 n Review of Systems ROS Statement: Those systems with pertinent positive or pertinent negative responses have been documented in the HPI. ROS Other: All systems not noted in ROS Statement are negative. Past Medical History Past Medical History: Blood Disorder, GERD/Reflux Additional Past Medical History / Comment(s): Endometriosis, polycystic ovarian syndrome. IRON DEFICIENCY ANEMIA. Stomach Ulcer. ovarian cyst History of Any Multi-Drug Resistant Organisms: None Reported Past Surgical History: Ablation, Section, Cholecystectomy, Hernia Repair, Hysterectomy, Tubal Ligation, Uterine Ablation Additional Past Surgical History / Comment(s): Laparoscopy X2, Section X3. Right ovary and right tube removed - 2019. cyst removed from chest. AUG 2020 - ADHESION REMOVAL FROM PAST . Vaginal. pelvic biopsy 05/11. PCOS Past Anesthesia/Blood Transfusion Reactions: No Reported Reaction Past Psychological History: Anxiety, Depression Smoking Status: Never smoker Past Alcohol Use History: Occasional Past Drug Use History: None Reported - Past Family History Mother Family Medical History: Hyperlipidemia Additional Family Medical History / Comment(s): Depression and anxiety. General Exam Limitations: no limitations General appearance: alert, in no apparent distress Head exam: Present: atraumatic, normocephalic Eye exam: Present: normal appearance, EOMI Neck exam: Present: normal inspection. Absent: meningismus Respiratory exam: Present: normal lung sounds bilaterally. Absent: respiratory distress, wheezes, rales, rhonchi, stridor Cardiovascular Exam: Present: regular rate, normal rhythm, normal heart sounds. Absent: systolic murmur, diastolic murmur, rubs, gallop, clicks GI/Abdominal exam: Present: soft, tenderness (Tenderness over the areas of chronic pain). Absent: distended, guarding, rebound, rigid Neurological exam: Present: alert, oriented X3 Psychiatric exam: Present: normal affect, normal mood Skin exam: Present: warm, dry Course Vital Signs 11/06/23 11/06/23 20:27 22:55 Temperature 98 F 98.3 F Pulse Rate 93 77 Respiratory 18 16 Rate Blood Pressure 118/84 100/67 O2 Sat by Pulse 98 98 Oximetry Medical Decision Making - Medical Decision Making Was pt. sent in by a medical professional or institution (, PA, SERGING MACHINE OPERATOR, urgent care, hospital, or prison...) When possible be specific @ -No Did you speak to anyone other than the patient for history (EMS, parent, family, police, friend...)? What history was obtained from this source @ -No Did you review nursing and triage notes (agree or disagree)? Why? @ -I reviewed and agree with nursing and triage notes Were old charts reviewed (outside hosp., previous admission, EMS record, old EKG, old radiological studies, urgent care reports/EKG's, prison records)? Report findings @ -Previous ER visit is reviewed Differential Diagnosis (chest pain, altered mental status, abdominal pain women, abdominal pain men, vaginal bleeding, weakness, fever, dyspnea, syncope, headache, dizziness, GI bleed, back pain, seizure, CVA, palpatations, mental health, musculoskeletal)? @ -[facility] Differential Abdominal Pain Women: Appendicitis, Cholecystitis, diverticulosis, ischemic bowel, pancreatitis, hepatitis, UTI, gastroenteritis, AAA, incarcerated hernia, bowel obstruction, constipation, inflammatory bowel, hepatitis, peptic ulcer disease, splenic infarction, perforated viscus, vulvitis, ovarian torsion, PID, kidney stone, placenta abruption... This is not meant to be an all-inclusive list EKG interpreted by me (3pts min.). @ -As above X-rays interpreted by me (1pt min.). @ -None done CT interpreted by me (1pt min.). @ -None done U/S interpreted by me (1pt. min.). @ -None done What testing was considered but not performed or refused? (CT, X-rays, U/S, labs)? Why? @ -Imaging was considered, however the patient has had multiple CT scans in the past and states that this pain is consistent with her chronic pain. I do not believe the risk of radiation exposure would outweigh the benefit at this time. What meds were considered but not given or refused? Why? @ -None Did you discuss the management of the patient with other professionals (professionals i.e. Dr., PA, SERGING MACHINE OPERATOR, lab, RT, psych nurse, social worker assistant, computer mechanic, teacher, financial compliance officer, medical case worker)? Give summary @ -No Was smoking cessation discussed for >3mins.? @ -No Was critical care preformed (if so, how long)? @ -No Were there social determinants of health that impacted care today? How? (Homelessness, low income, unemployed, alcoholism, drug addiction, tra nsportation, low edu. Level, literacy, decrease access to med. care, [facility], rehab)? @ -No Was there de-escalation of care discussed even if they declined (Discuss DNR or withdrawal of care, Hospice)? DNR status @ -No What co-morbidities impacted this encounter? (DM, HTN, Smoking, COPD, CAD, Cancer, CVA, ARF, Chemo, Hep., AIDS, mental health diagnosis, sleep apnea, morbid obesity)? @ -None Was patient admitted / discharged? Hospital course, mention meds given and route, prescriptions, significant lab abnormalities, going to OR and other pertinent info. @ -33-year-old female presenting with chief complaint of nausea vomiting and diarrhea. History and physical exam are conducted. BBC 3.5 hemoglobin 11, consistent with the patient's baseline values. AST 38 otherwise unremarkable labs and urine study. Patient is given pain medication and antiemetics as well as fluids. On reassessment she reports improvement in her symptoms. She will be discharged home. Follow-up with PCP. Report back to ER with any new or worsening symptoms. Discussed return parameters and answered all questions. Patient conveyed verbal understanding and agreed to the plan. I discussed this case in detail with my attending Dr. Araujo Undiagnosed new problem with uncertain prognosis? @ -No Drug Therapy requiring intensive monitoring for toxicity (Heparin, Nitro, Insulin, Cardizem)? @ -No Were any procedures done? @ -No Diagnosis/symptom? @ -Gastroenteritis Acute, or Chronic, or Acute on Chronic? @ -Acute Uncomplicated (without systemic symptoms) or Complicated (systemic symptoms)? @ -Uncomplicated Side effects of treatment? @ -No Exacerbation, Progression, or Severe Exacerbation? @ -No Poses a threat to life or bodily function? How? (Chest pain, [place], [place], pneumonia, PE, COPD, DKA, ARF, appy, cholecystitis, CVA, Diverticulitis, Homicidal, Suicidal, threat to staff... and all critical care pts) @ -Low likelihood Diagnosis/symptom? @Abdominal pain Acute, or Chronic, or Acute on Chronic? @Acute on chronic Uncomplicated (without systemic symptoms) or Complicated (systemic symptoms)? @Uncomplicated Side effects of treatment? @None Exacerbation, Progression, or Severe Exacerbation] @No Poses a threat to life or bodily function? @Low likelihood - Lab Data Result diagrams: 11/06/23 20:59 11/06/23 20:59 Lab Results 11/06/23 11/06/23 11/06/23 Range/Units 20:42 20:59 20:59 WBC 3.5 L (3.8-10.6) k/uL RBC 3.60 L (3.80-5.40) m/uL Hgb 11.0 L (11.4-16.0) gm/dL Hct 32.6 L (34.0-46.0) % MCV 90.7 (80.0-100.0) fL MCH 30.6 (25.0-35.0) pg MCHC 33.7 (31.0-37.0) g/dL RDW 13.0 (11.5-15.5) % Plt Count 164 (150-450) k/uL MPV 8.5 Neutrophils % 61 % Lymphocytes % 31 % Monocytes % 5 % Eosinophils % 1 % Basophils % 0 % Neutrophils # 2.1 (1.3-7.7) k/uL Lymphocytes # 1.1 (1.0-4.8) k/uL Monocytes # 0.2 (0-1.0) k/uL Eosinophils # 0.0 (0-0.7) k/uL Basophils # 0.0 (0-0.2) k/uL Sodium 140 (137-145) mmol/L Potassium 3.7 (3.5-5.1) mmol/L Chloride 107 (98-107) mmol/L Carbon Dioxide 27 (22-30) mmol/L Anion Gap 6 mmol/L BUN 12 (7-17) mg/dL Creatinine 0.71 (0.52-1.04) mg/dL Est GFR (CKD-EPI)AfAm >90 (>60 ml/min/1.73 sqM) Est GFR (CKD-EPI)NonAf >90 (>60 ml/min/1.73 sqM) Glucose 104 H (74-99) mg/dL Calcium 9.3 (8.4-10.2) mg/dL Total Bilirubin 0.8 (0.2-1.3) mg/dL AST 38 H (14-36) U/L ALT 28 (4-34) U/L Alkaline Phosphatase 105 (38-126) U/L Total Protein 6.7 (6.3-8.2) g/dL Albumin 4.1 (3.5-5.0) g/dL Urine Color Colorless Urine Appearance Clear (Clear) Urine pH 6.0 (5.0-8.0) Ur Specific [place] 1.004 (1.001-1.035) Urine Protein Negative (Negative) Urine Glucose (UA) Negative (Negative) Urine Ketones Negative (Negative) Urine Blood Negative (Negative) Urine Nitrite Negative (Negative) Urine Bilirubin Negative (Negative) Urine Urobilinogen <2.0 (<2.0) mg/dL Ur Leukocyte Esterase Negative (Negative) Disposition Clinical Impression: Gastroenteritis, Chronic abdominal pain Disposition: HOME SELF-CARE Condition: Good Instructions (If sedation given, give patient instructions): Acute Nausea and Vomiting (ED), Acute Diarrhea (ED) Additional Instructions: Follow-up with your PCP. Report back to ER with any new or worsening symptoms. Prescriptions: Ondansetron Odt [Zofran Odt] 4 mg PO Q8HR PRN #20 tab PRN Reason: Nausea Is patient prescribed a controlled substance at d/c from ED?: No Referrals: None,Stated [Primary Care Provider] - 1-2 days Time of Disposition: 22:25
[2023-11-06 23:14] VITALS: BP 100/67; PULSE 77; RESP 16; TEMP 98.3
== END 2023-11-06 22:57 | disposition home or self-care (01) ==
LOC: EC 20:22
DX: K52.9 Noninfective gastroenteritis and colitis, unspecified (principal); Z88.0 Allergy status to penicillin; Z88.1 Allergy status to other antibiotic agents; Z88.2 Allergy status to sulfonamides; Z91.048 Other nonmedicinal substance allergy status; Z90.49 Acquired absence of other specified parts of digestive tract
CPT/HCPCS: 36415; 80053; 85025; 81003; 99284; 96374; 96375 ×3; 96361 ×2; J2405; J1170; J1885; C9113

== ENCOUNTER 2023-11-08 23:51 | Emergency (ER) | payer OTHER ==
--- NOTE | 2023-11-09 00:14 | ED ---
Nausea/Vomiting/Diarrhea HPI - General Chief complaint: Nausea/Vomiting/Diarrhea Stated complaint: NVD Time Seen by Provider: 11/09/23 00:05 Source: patient, RN notes reviewed, old records reviewed Mode of arrival: ambulatory Limitations: no limitations - History of Present Illness Initial comments: This is 33-year-old female to ER for recheck recheck of nausea and vomiting. Patient has 2 ER visits this week for similar symptoms nausea vomiting and d iarrhea. Patient now presents with abdominal pain right lower quadrant abdominal pain. No family members with similar complaints no travel history or sick contacts no fevers patient has had her hysterectomy MD complaint: nausea, vomiting, diarrhea, abdominal pain -: days(s) Description of Vomiting: food contents, watery, bilious Description of Diarrhea: mucous Location: diffuse, RLQ Severity: severe Severity scale (1-10): 8 Quality: cramping, aching Consistency: constant Improves with: none Worsens with: none Associated Symptoms: loss of appetite, nausea/vomiting, weakness - Related Data Home Medications Medication Instructions Recorded Confirmed Omeprazole 20 mg PO BID 03/07/22 03/17/23 Albuterol Inhaler [Ventolin Hfa 2 puff INHALATION RT-Q6H PRN 02/13/23 03/17/23 Inhaler] Escitalopram [Lexapro] 10 mg PO HS 03/17/23 03/17/23 Meloxicam [Mobic] 7.5 mg PO BID 03/17/23 03/17/23 Ondansetron Odt [Zofran Odt] 4 mg PO Q12HR PRN 03/17/23 03/17/23 Orphenadrine Citrate [Orphenadrine 100 mg PO BID 03/17/23 03/17/23 Citrate ER] Previous Rx's Medication Instructions Recorded Cyclobenzaprine [Flexeril] 5 mg PO TID PRN #15 tablet 05/27/23 Ondansetron Odt [Zofran Odt] 4 mg PO Q8HR PRN #20 tab 11/06/23 Allergies Allergy/AdvReac Type Severity Reaction Status Date / Time sulfamethoxazole Allergy Severe Anaphylaxis Verified 11/08/23 23:57 [From Bactrim] trimethoprim [From Bactrim] Allergy Severe Anaphylaxis Verified 11/08/23 23:57 adhesive tape Allergy Rash/Hives Verified 11/08/23 23:57 aloe vera Allergy Rash/Hives Verified 11/08/23 23:57 azithromycin Allergy Rash/Hives Verified 11/08/23 23:57 cephalexin Allergy Rash/Hives Verified 11/08/23 23:57 metronidazole [From Flagyl] Allergy Rash/Hives Verified 11/08/23 23:57 Penicillins Allergy Rash/Hives Verified 11/08/23 23:57 alprazolam [From Xanax] AdvReac MAKES Verified 11/08/23 23:57 PARANOID dicyclomine [From Bentyl] AdvReac constipatio Verified 11/08/23 23:57 n Review of Systems ROS Statement: Those systems with pertinent positive or pertinent negative responses have been documented in the HPI. ROS Other: All systems not noted in ROS Statement are negative. Past Medical History Past Medical History: Blood Disorder, GERD/Reflux Additional Past Medical History / Comment(s): Endometriosis, polycystic ovarian syndrome. IRON DEFICIENCY ANEMIA. Stomach Ulcer. ovarian cyst History of Any Multi-Drug Resistant Organisms: None Reported Past Surgical History: Ablation, Section, Cholecystectomy, Hernia Repair, Hysterectomy, Tubal Ligation, Uterine Ablation Additional Past Surgical History / Comment(s): Laparoscopy X2, Section X3. Right ovary and right tube removed - 2019. cyst removed from chest. AUG 2020 - ADHESION REMOVAL FROM PAST . Vaginal. pelvic biopsy 05/11. PCOS Past Anesthesia/Blood Transfusion Reactions: No Reported Reaction Past Psychological History: Anxiety, Depression Smoking Status: Never smoker Past Alcohol Use History: Occasional Past Drug Use History: None Reported - Past Family History Mother Family Medical History: Hyperlipidemia Additional Family Medical History / Comment(s): Depression and anxiety. General Exam Limitations: no limitations General appearance: alert, in no apparent distress, anxious Head exam: Present: atraumatic, normocephalic, normal inspection Eye exam: Present: normal appearance, PERRL, EOMI. Absent: scleral icterus, conjunctival injection, periorbital swelling ENT exam: Present: normal exam, mucous membranes moist Neck exam: Present: normal inspection. Absent: tenderness, meningismus, l ymphadenopathy Respiratory exam: Present: normal lung sounds bilaterally. Absent: respiratory distress, wheezes, rales, rhonchi, stridor Cardiovascular Exam: Present: regular rate, normal rhythm, normal heart sounds. Absent: systolic murmur, diastolic murmur, rubs, gallop, clicks GI/Abdominal exam: Present: soft, normal bowel sounds. Absent: distended, tenderness, guarding, rebound, rigid Extremities exam: Present: normal inspection, full ROM, normal capillary refill. Absent: tenderness, pedal edema, joint swelling, calf tenderness Back exam: Present: normal inspection Neurological exam: Present: alert, oriented X3, CN II-XII intact Psychiatric exam: Present: normal affect, normal mood Skin exam: Present: warm, dry, intact, normal color. Absent: rash Course Vital Signs 11/08/23 11/09/23 23:56 04:38 Temperature 98.8 F 97.8 F Pulse Rate 80 76 Respiratory 18 18 Rate Blood Pressure 130/86 114/72 O2 Sat by Pulse 100 98 Oximetry - Reevaluation(s) Reevaluation #1: 11/09/23 00:13 Medical records reviewed Reevaluation #2: Patient symptoms are improved here in the ER Reevaluation #3: Patient informed of results and questions answered Reevaluation #4: Was pt. sent in by a medical professional or institution (, PA, [employer] W[employer]ER, urgent care, hospital, or correction...) When possible be specific @ -no Did you speak to anyone other than the patient for history (EMS, parent, family, police, friend...)? What history was obtained from this source @ -no Did you review nursing and triage notes (agree or disagree)? Why? @ -agree Are old charts reviewed (outside hosp., previous admission, EMS record, old EKG, old radiological studies, urgent care reports/EKG's, correction records)? Report findings @ -yes Differential Diagnosis (chest pain, altered mental status, abdominal pain women, abdominal pain men, vaginal bleeding, weakness, fever, dyspnea, syncope, headache, dizziness, GI bleed, back pain, seizure, CVA, palpatations, mental health, musculoskeletal)? @ -prior EKG interpreted by me (3pts min.). @ -no X-rays interpreted by me (1pt min.). @ -no CT interpreted by me (1pt min.). @ -yes negative for acute disease U/S interpreted by me (1pt. min.). @ -no What testing was considered but not performed or refused? (CT, X-rays, U/S, labs)? Why? @ -none What meds were considered but not given or refused? Why? @ -none Did you discuss the management of the patient with other professionals (professionals i.e. , PA, [employer] ENG[employer]ER, lab, RT, psych nurse, web content & social media manager, wind operations supervisor, teacher, special assets officer, manager case)? Give summary @ -no Was smoking cessation discussed for >3mins.? @ -no Was critical care preformed (if so, how long)? @ -no Were there social determinants of health that impacted care today? How? (Homelessness, low income, unemployed, alcoholism, drug addiction, transp ortation, low edu. Level, literacy, decrease access to med. care, halfway, rehab)? @ -none Was there de-escalation of care discussed even if they declined (Discuss DNR or withdrawal of care, Hospice)? DNR status @ -no What co-morbidities impacted this encounter? (DM, HTN, Smoking, COPD, CAD, Cancer, CVA, ARF, Chemo, Hep., AIDS, mental health diagnosis, sleep apnea, morbid obesity)? @ -none Was patient admitted / discharged? Hospital course, mention meds given and route, prescriptions, significant lab abnormalities, going to OR and other pertinent info. @ - 33 female here for evaluation of abdominal pain. No cause found abdominal pain here in the ER patient feels well can be discharged home Discharge Undiagnosed new problem with uncertain prognosis? @ -no Drug Therapy requiring intensive monitoring for toxicity (Heparin, Nitro, Insulin, Cardizem)? @ -no Were any procedures done? @ -no Diagnosis/symptom? @ -Abdominal pain Acute, or Chronic, or Acute on Chronic? @ -Acute Uncomplicated (without systemic symptoms) or Complicated (systemic symptoms)? @ -Complicated Side effects of treatment? @ -no Exacerbation, Progression, or Severe Exacerbation? @ -exacerbation Poses a threat to life or bodily function? How? (Chest pain, [place], [place], pneumonia, PE, COPD, DKA, ARF, appy, cholecystitis, CVA, Diverticulitis, Homicidal, Suicidal, threat to staff... and all critical care pts) @ -no Reevaluation #5: Differential Abdominal Pain Women: Appendicitis, Cholecystitis, diverticulosis, ischemic bowel, pancreatitis, hepatitis, UTI, gastroenteritis, AAA, incarcerated hernia, bowel obstruction, constipation, inflammatory bowel, hepatitis, peptic ulcer disease, splenic infarction, perforated viscus, vulvitis, ovarian torsion, PID, kidney stone, placenta abruption, this is not meant to be an all-inclusive list Medical Decision Making - Medical Decision Making 33 female here for evaluation of abdominal pain. No cause found abdominal pain here in the ER patient feels well can be discharged home - Lab Data Result diagrams: 11/09/23 00:27 11/09/23 00:27 Lab Results 11/09/23 11/09/23 11/09/23 Range/Units 00:27 00: 00:27 WBC 4.4 (3.8-10.6) k/uL RBC 3.83 (3.80-5.40) m/uL Hgb 11.6 (11.4-16.0) gm/dL Hct 35.1 (34.0-46.0) % MCV 91.7 (80.0-100.0) fL MCH 30.2 (25.0-35.0) pg MCHC 33.0 (31.0-37.0) g/dL RDW 13.1 (11.5-15.5) % Plt Count 153 (150-450) k/uL MPV 7.7 Neutrophils % 60 % Lymphocytes % 29 % Monocytes % 6 % Eosinophils % 1 % Basophils % 0 % Neutrophils # 2.6 (1.3-7.7) k/uL Lymphocytes # 1.3 (1.0-4.8) k/uL Monocytes # 0.3 (0-1.0) k/uL Eosinophils # 0.0 (0-0.7) k/uL Basophils # 0.0 (0-0.2) k/uL Sodium 141 (137-145) mmol/L Potassium 3.7 (3.5-5.1) mmol/L Chloride 107 (98-107) mmol/L Carbon Dioxide 27 (22-30) mmol/L Anion Gap 7 mmol/L BUN 13 (7-17) mg/dL Creatinine 0.77 (0.52-1.04) mg/dL Est GFR (CKD-EPI)AfAm >90 (>60 ml/min/1.73 sqM) Est GFR (CKD-EPI)NonAf >90 (>60 ml/min/1.73 sqM) Glucose 96 (74-99) mg/dL Plasma Lactic Acid Santhosh 0.7 (0.7-2.0) mmol/L Calcium 9.4 (8.4-10.2) mg/dL Phosphorus 3.3 (2.5-4.5) mg/dL Magnesium 1.9 (1.6-2.3) mg/dL Total Bilirubin 0.7 (0.2-1.3) mg/dL AST 37 H (14-36) U/L ALT 34 (4-34) U/L Alkaline Phosphatase 121 (38-126) U/L Total Protein 6.8 (6.3-8.2) g/dL Albumin 4.1 (3.5-5.0) g/dL Lipase 54 (23-300) U/L Urine Color Urine Appearance (Clear) Urine pH (5.0-8.0) Ur Specific [place] (1.001-1.035) Urine Protein (Negative) Urine Glucose (UA) (Negative) Urine Ketones (Negative) Urine Blood (Negative) Urine Nitrite (Negative) Urine Bilirubin (Negative) Urine Urobilinogen (<2.0) mg/dL Ur Leukocyte Esterase (Negative) Urine HCG, Qual (Not Detectd) Urine Opiates Screen (NotDetected) Ur Oxycodone Screen (NotDetected) Urine Methadone Screen (NotDetected) Ur Barbiturates Screen (NotDetected) U Tricyclic Antidepress (NotDetected) Ur Phencyclidine Scrn (NotDetected) Ur Amphetamines Screen (NotDetected) U Methamphetamines Scrn (NotDetected) U Benzodiazepines Scrn (NotDetected) Urine Cocaine Screen (NotDetected) U Marijuana (THC) Screen (NotDetected) 11/09/23 11/09/23 Range/Units 00:34 00:34 WBC (3.8-10.6) k/uL RBC (3.80-5.40) m/uL Hgb (11.4-16.0) gm/dL Hct (34.0-46.0) % MCV (80.0-100.0) fL MCH (25.0-35.0) pg MCHC (31.0-37.0) g/dL RDW (11.5-15.5) % Plt Count (150-450) k/uL MPV Neutrophils % % Lymphocytes % % Monocytes % % Eosinophils % % Basophils % % Neutrophils # (1.3-7.7) k/uL Lymphocytes # (1.0-4.8) k/uL Monocytes # (0-1.0) k/uL Eosinophils # (0-0.7) k/uL Basophils # (0-0.2) k/uL Sodium (137-145) mmol/L Potassium (3.5-5.1) mmol/L Chloride (98-107) mmol/L Carbon Dioxide (22-30) mmol/L Anion Gap mmol/L BUN (7-17) mg/dL Creatinine (0.52-1.04) mg/dL Est GFR (CKD-EPI)AfAm (>60 ml/min/1.73 sqM) Est GFR (CKD-EPI)NonAf (>60 ml/min/1.73 sqM) Glucose (74-99) mg/dL Plasma Lactic Acid Santhosh (0.7-2.0) mmol/L Calcium (8.4-10.2) mg/dL Phosphorus (2.5-4.5) mg/dL Magnesium (1.6-2.3) mg/dL Total Bilirubin (0.2-1.3) mg/dL AST (14-36) U/L ALT (4-34) U/L Alkaline Phosphatase (38-126) U/L Total Protein (6.3-8.2) g/dL Albumin (3.5-5.0) g/dL Lipase (23-300) U/L Urine Color Colorless Urine Appearance Clear (Clear) Urine pH 6.5 (5.0-8.0) Ur Specific [place] 1.010 (1.001-1.035) Urine Protein Negative (Negative) Urine Glucose (UA) Negative (Negative) Urine Ketones Negative (Negative) Urine Blood Negative (Negative) Urine Nitrite Negative (Negative) Urine Bilirubin Negative (Negative) Urine Urobilinogen <2.0 (<2.0) mg/dL Ur Leukocyte Esterase Negative (Negative) Urine HCG, Qual Not Detected (Not Detectd) Urine Opiates Screen Not Detected (NotDetected) Ur Oxycodone Screen Not Detected (NotDetected) Urine Methadone Screen Not Detected (NotDetected) Ur Barbiturates Screen Not Detected (NotDetected) U Tricyclic Antidepress Not Detected (NotDetected) Ur Phencyclidine Scrn Not Detected (NotDetected) Ur Amphetamines Screen Not Detected (NotDetected) U Methamphetamines Scrn Not Detected (NotDetected) U Benzodiazepines Scrn Not Detected (NotDetected) Urine Cocaine Screen Not Detected (NotDetected) U Marijuana (THC) Screen Not Detected (NotDetected) - Radiology Data Radiology results: report reviewed (CT of pelvis is negative for acute disease), image reviewed Disposition Clinical Impression: Abdominal pain of unknown etiology, Nausea and vomiting, Dehydration Disposition: HOME SELF-CARE Instructions (If sedation given, give patient instructions): Acute Nausea and Vomiting (ED), Abdominal Pain (ED) Is patient prescribed a controlled substance at d/c from ED?: No Referrals: None,Stated [Primary Care Provider] - 1-2 days Time of Disposition: 04:00
[2023-11-09 00:29] VITALS: RESP 18
[2023-11-09] MEDS: SODIUM CHLORIDE 0.9% 1,000 ML IV STA (00:32)
[2023-11-09] MEDS: PROCHLORPERAZINE INJ 10 MG/2 ML VIAL IVP STA (00:32)
[2023-11-09] MEDS: diphenhydrAMINE 50 MG/ML 1 ML VIAL IVP STA (00:36)
[2023-11-09 00:59] LABS: Appearance,Urine Clear (Clear); Bilirubin,Urine Negative (Negative); Blood,Urine Negative (Negative); Color,Urine Colorless; Glucose,Urine (UA) Negative (Negative); Ketones,Urine Negative (Negative); Leukocyte Esterase,Urine Negative (Negative); Nitrite,Urine Negative (Negative); PH, Urine 6.5 (5.0-8.0); Protein,Urine Negative (Negative); Urobilinogen,Urine <2.0 mg/dL (<2.0)
[2023-11-09 01:07] LABS: Amphetamine Screen,Urine Not Detected (NotDetected); Barbiturate Screen,Urine Not Detected (NotDetected); Benzodiazepines Screen,Urine Not Detected (NotDetected); Cocaine Screen,Urine Not Detected (NotDetected); Methadone Screen, Urine Not Detected (NotDetected); Opiate Screen,Urine Not Detected (NotDetected); Oxycodone Screen, Urine Not Detected (NotDetected); Phencyclidine Screen,Urine Not Detected (NotDetected); Tricyclic Antidepressant,Urine Not Detected (NotDetected); Urn Cannabinoid Scrn Not Detected (NotDetected)
[2023-11-09 01:22] LABS: Basophils % (A) 0 %; Eosinophils % (A) 1 %; HCT 35.1 % (34.0-46.0); HGB 11.6 gm/dL (11.4-16.0); Lymphocytes # (A) 1.3 k/uL (1.0-4.8); Lymphocytes % (A) 29 %; MCH 30.2 pg (25.0-35.0); MCV 91.7 fL (80.0-100.0); Mean Platelet Volume 7.7; Monocytes # (A) 0.3 k/uL (0-1.0); Monocytes % (A) 6 %; Neutrophils # (A) 2.6 k/uL (1.3-7.7); Neutrophils % (A) 60 %; Platelet Count 153 k/uL (150-450); RBC 3.83 m/uL (3.80-5.40); RDW 13.1 % (11.5-15.5); WBC 4.4 k/uL (3.8-10.6)
[2023-11-09] MEDS: ONDANSETRON 4 MG/2 ML VIAL IVP STA (01:32)
[2023-11-09] MEDS: HYDROmorphone 1 MG/ML 1 ML SYRINGE IVP STA (01:34)
[2023-11-09 01:37] LABS: ALT 34 U/L (4-34); AST 37 U/L (14-36); African American GFR (CKD) >90 (>60 ml/min/1.73 sqM); Albumin 4.1 g/dL (3.5-5.0); Alkaline Phosphatase 121 U/L (38-126); Anion Gap 7 mmol/L; Blood Urea Nitrogen 13 mg/dL (7-17); Calcium 9.4 mg/dL (8.4-10.2); Carbon Dioxide 27 mmol/L (22-30); Chloride 107 mmol/L (98-107); Glucose 96 mg/dL (74-99); Lipase 54 U/L (23-300); Magnesium 1.9 mg/dL (1.6-2.3); Non-African American GFR(CKD) >90 (>60 ml/min/1.73 sqM); Phosphorus 3.3 mg/dL (2.5-4.5); Potassium 3.7 mmol/L (3.5-5.1); Sodium 141 mmol/L (137-145); Total Bilirubin 0.7 mg/dL (0.2-1.3); Total Protein 6.8 g/dL (6.3-8.2)
--- NOTE | 2023-11-09 03:40 | CT ---
EXAM: CT Abdomen and Pelvis With Intravenous Contrast CLINICAL HISTORY: CT Reason: pain TECHNIQUE: Axial computed tomography images of the abdomen and pelvis with intravenous contrast. CTDI is 11.9 mGy and DLP is 460.2 mGy-cm. This CT exam was performed using one or more of the following dose reduction techniques: automated exposure control, adjustment of the mA and/or kV according to patient size, and/or use of iterative reconstruction technique. COMPARISON: No relevant prior studies available. FINDINGS: Lung bases: Unremarkable. No mass. No consolidation. Mediastinum: There is a 2.9 cm hiatal hernia. ABDOMEN: Liver: Unremarkable. No mass. Gallbladder and bile ducts: The gallbladder has been removed. No biliary duct dilation is seen. Pancreas: Unremarkable. No mass. No ductal dilation. Spleen: Unremarkable. No splenomegaly. Adrenals: Unremarkable. No mass. Kidneys and ureters: Unremarkable. No solid mass. No hydronephrosis. Stomach and bowel: Unremarkable. No obstruction. No mucosal thickening. PELVIS: Appendix: The appendix is normal. Bowel loops are nondilated. No acute inflammatory changes are seen involving the bowel. Bladder: Unremarkable. No mass. Reproductive: Unremarkable as visualized. ABDOMEN and PELVIS: Intraperitoneal space: The uterus has been removed. No free fluid is seen in the pelvis. No free air. Bones/joints: No acute fracture. No dislocation. Soft tissues: Unremarkable. Vasculature: Unremarkable. No abdominal aortic aneurysm. Lymph nodes: Unremarkable. No enlarged lymph nodes. IMPRESSION: The appendix is normal. Bowel loops are nondilated. No acute inflammatory changes are seen involving the bowel. Previous cholecystectomy and hysterectomy. No acute inflammatory changes are seen within the abdomen or pelvis.
[2023-11-09] MEDS: ACET/COD 300 MG/30 MG STARTER PACK 6 TAB BTL PO STA (04:35)
[2023-11-09 04:59] VITALS: BP 114/72; PULSE 76; TEMP 97.8
== END 2023-11-09 04:38 | disposition home or self-care (01) ==
LOC: EC 23:51
DX: E86.0 Dehydration (principal); R11.2 Nausea with vomiting, unspecified; R10.31 Right lower quadrant pain; Z88.0 Allergy status to penicillin; Z88.1 Allergy status to other antibiotic agents; Z88.2 Allergy status to sulfonamides; Z88.8 Allergy status to other drugs, medicaments and biological substances; Z90.49 Acquired absence of other specified parts of digestive tract
CPT/HCPCS: 36415; 80053; 83605; 83690; 83735; 84100; 85025; 81003; 81025; 80306; 74177; 99285; 96374; 96375 ×2; 96361 ×4; J0780; J2405; J1170; Q9967

== ENCOUNTER 2023-11-23 08:22 | Emergency (ER) | payer OTHER ==
--- NOTE | 2023-11-23 08:43 | ED ---
Abdominal Pain HPI - General Chief Complaint: Abdominal Pain Stated Complaint: Abdominal Pain Time Seen by Provider: 11/23/23 08:30 Source: patient, RN notes reviewed Mode of arrival: ambulatory Limitations: no limitations - History of Present Illness Initial Comments: This is a 33-year-old female who presents to the emergency department for abdominal pain. States that it is in the left-sided pelvic region and began about 3 days ago. Pain radiates into the left lower back. She has associated nausea and vomiting due to the pain. Patient has had a complete hysterectomy and oophorectomy. She is concerned that she has a loose clip from her prior ch olecystectomy that has migrated to her pelvis. She is trying to find a new primary care provider who can give her an official referral to general surgery to see if this clip can be removed. Denies any fevers/chills or changes in bowel/bladder habits. MD Complaint: abdominal pain - Related Data Home Medications Medication Instructions Recorded Confirmed Omeprazole 20 mg PO BID 03/07/22 03/17/23 Albuterol Inhaler [Ventolin Hfa 2 puff INHALATION RT-Q6H PRN 02/13/23 03/17/23 Inhaler] Escitalopram [Lexapro] 10 mg PO HS 03/17/23 03/17/23 Meloxicam [Mobic] 7.5 mg PO BID 03/17/23 03/17/23 Ondansetron Odt [Zofran Odt] 4 mg PO Q12HR PRN 03/17/23 03/17/23 Orphenadrine Citrate [Orphenadrine 100 mg PO BID 03/17/23 03/17/23 Citrate ER] Previous Rx's Medication Instructions Recorded Cyclobenzaprine [Flexeril] 5 mg PO TID PRN #15 tablet 05/27/23 Ondansetron Odt [Zofran Odt] 4 mg PO Q8HR PRN #20 tab 11/06/23 Ketorolac [Toradol] 10 mg PO Q6HR PRN #15 tab 11/23/23 Ondansetron Odt [Zofran Odt] 4 mg PO Q8HR PRN #20 tab 11/23/23 Allergies Allergy/AdvReac Type Severity Reaction Status Date / Time sulfamethoxazole Allergy Severe Anaphylaxis Verified 11/08/23 23:57 [From Bactrim] trimethoprim [From Bactrim] Allergy Severe Anaphylaxis Verified 11/08/23 23:57 adhesive tape Allergy Rash/Hives Verified 11/08/23 23:57 aloe vera Allergy Rash/Hives Verified 11/08/23 23:57 azithromycin Allergy Rash/Hives Verified 11/08/23 23:57 cephalexin Allergy Rash/Hives Verified 11/08/23 23:57 metronidazole [From Flagyl] Allergy Rash/Hives Verified 11/08/23 23:57 Penicillins Allergy Rash/Hives Verified 11/08/23 23:57 alprazolam [From Xanax] AdvReac MAKES Verified 11/08/23 23:57 PARANOID dicyclomine [From Bentyl] AdvReac constipatio Verified 11/08/23 23:57 n Review of Systems ROS Statement: Those systems with pertinent positive or pertinent negative responses have been documented in the HPI. ROS Other: All systems not noted in ROS Statement are negative. Past Medical History Past Medical History: Blood Disorder, GERD/Reflux Additional Past Medical History / Comment(s): Endometriosis, polycystic ovarian syndrome. IRON DEFICIENCY ANEMIA. Stomach Ulcer. ovarian cyst History of Any Multi-Drug Resistant Organisms: None Reported Past Surgical History: Ablation, Section, Cholecystectomy, Hernia Repair, Hysterectomy, Tubal Ligation, Uterine Ablation Additional Past Surgical History / Comment(s): Laparoscopy X2, Section X3. Right ovary and right tube removed - 2019. cyst removed from chest. AUG 2020 - ADHESION REMOVAL FROM PAST . Vaginal. pelvic biopsy 05/11. PCOS Past Anesthesia/Blood Transfusion Reactions: No Reported Reaction Past Psychological History: Anxiety, Depression Smoking Status: Never smoker Past Alcohol Use History: Occasional Past Drug Use History: None Reported - Past Family History Mother Family Medical History: Hyperlipidemia Additional Family Medical History / Comment(s): Depression and anxiety. General Exam Limitations: no limitations General appearance: alert, in distress Head exam: Present: atraumatic, normocephalic, normal inspection Respiratory exam: Present: normal lung sounds bilaterally. Absent: respiratory distress, wheezes, rales, rhonchi, stridor Cardiovascular Exam: Present: regular rate, normal rhythm, normal heart sounds. Absent: systolic murmur, diastolic murmur, rubs, gallop, clicks GI/Abdominal exam: Present: soft, tenderness (LLQ), normal bowel sounds. Absent: distended Neurological exam: Present: alert, oriented X3, CN II-XII intact Psychiatric exam: Present: normal affect, normal mood Skin exam: Present: warm, dry, intact, normal color. Absent: rash Course Vital Signs 11/23/23 11/23/23 08:27 09:21 Temperature 97.8 F Pulse Rate 115 H 84 Respiratory 20 16 Rate Blood Pressure 137/87 106/73 O2 Sat by Pulse 98 98 Oximetry Medical Decision Making - Medical Decision Making This is a 33 year old female who presents to the emergency department for abdominal pain. Was pt. sent in by a medical professional or institution? @ -No Did you speak to anyone other than the patient for history? @ -No Did you review nursing and triage notes? @ -Yes, and I agree, it is accurate with regards to the patient's symptoms. Were old charts reviewed? @ -No Differential Diagnosis? @ -Differential Abdominal Pain Women: Appendicitis, Cholecystitis, diverticulosis, ischemic bowel, pancreatitis, hepatitis, UTI, gastroenteritis, AAA, incarcerated hernia, bowel obstruction, constipation, inflammatory bowel, hepatitis, peptic ulcer disease, splenic infarction, perforated viscus, vulvitis, ovarian torsion, PID, kidney stone, placenta abruption, this is not meant to be an all-inclusive list EKG interpreted by me (3pts min.)? @ -Not obtained X-rays interpreted by me (1pt min.)? @ -KUB x-ray obtained. My interpretation identifies no dilation of the large or small bowel loops. CT interpreted by me (1pt min.)? @ -Not obtained U/S interpreted by me (1pt. min.)? @ -Not obtained What testing was considered but not performed? (CT, X-rays, U/S, labs)? Why? @ -None What meds were considered but not given? Why? @ -None Did you discuss the management of the patient with other professionals? @ -No Did you reconcile home meds? @ -No Was smoking cessation discussed for >3mins.? @ -No Was critical care preformed (if so, how long)? @ -No Were there social determinants of health that impacted care today? How? (Homelessness, low income, unemployed, alcoholism, drug addiction, transportation, low edu. Level, literacy, decrease access to med. care, snf, rehab)? @ -No Was there de-escalation of care discussed even if they declined? (Discuss DNR or withdrawal of care, Hospice)? @ -No What co-morbidities impacted this encounter? (DM, HTN, Smoking, COPD, CAD, Cancer, CVA, Hep., AIDS, mental health diagnosis, sleep apnea, morbid obesity)? @ -None Was patient admitted / discharged? @ -Discharged. Lab work unremarkable. Urinalysis negative for signs of infection. KUB x-ray obtained revealing no acute process. Patient's symptoms were managed in the emergency department. She was given information for general surgery follow-up as well as local primary care providers. Prescription for Toradol and Zofran provided with dosing instructions reviewed. Patient discharged home in stable condition. Undiagnosed new problem with uncertain prognosis? @ -None Drug Therapy requiring intensive monitoring for toxicity (Heparin, Nitro, Insulin, Cardizem)? @ -None Were any procedures done? @ -None Diagnosis/symptom? @ -Abdominal pain Acute, or Chronic, or Acute on Chronic? @ -Acute Uncomplicated (without systemic symptoms) or Complicated (systemic symptoms)? @ -Uncomplicated Side effects of treatment? @ -None Exacerbation, Progression, or Severe Exacerbation] @ -Not applicable Poses a threat to life or bodily function? @ -No Return precautions reviewed in depth, the patient is instructed to return to the emergency department with any new, worsening, or concerning symptoms. Patient verbalized understanding. This case was discussed in detail with the attending ED physician, Dr. Velasquez. Presentation, findings, and treatment plan discussed in detail as well. - Lab Data Result diagrams: 11/23/23 09:20 11/23/23 09:20 Lab Results 11/23/23 11/23/23 11/23/23 Range/Units 08:30 09:20 09:20 WBC 5.3 (3.8-10.6) k/uL RBC 3.94 (3.80-5.40) m/uL Hgb 12.3 (11.4-16.0) gm/dL Hct 35.7 (34.0-46.0) % MCV 90.5 (80.0-100.0) fL MCH 31.1 (25.0-35.0) pg MCHC 34.4 (31.0-37.0) g/dL RDW 13.1 (11.5-15.5) % Plt Count 196 (150-450) k/uL MPV 8.0 Neutrophils % 55 % Lymphocytes % 36 % Monocytes % 6 % Eosinophils % 1 % Basophils % 0 % Neutrophils # 2.9 (1.3-7.7) k/uL Lymphocytes # 1.9 (1.0-4.8) k/uL Monocytes # 0.3 (0-1.0) k/uL Eosinophils # 0.0 (0-0.7) k/uL Basophils # 0.0 (0-0.2) k/uL Sodium 140 (137-145) mmol/L Potassium 4.1 (3.5-5.1) mmol/L Chloride 106 (98-107) mmol/L Carbon Dioxide 25 (22-30) mmol/L Anion Gap 9 mmol/L BUN 11 (7-17) mg/dL Creatinine 0.67 (0.52-1.04) mg/dL Est GFR (CKD-EPI)AfAm >90 (>60 ml/min/1.73 sqM) Est GFR (CKD-EPI)NonAf >90 (>60 ml/min/1.73 sqM) Glucose 98 (74-99) mg/dL Plasma Lactic Acid Santhosh (0.7-2.0) mmol/L Calcium 9.8 (8.4-10.2) mg/dL Total Bilirubin 0.8 (0.2-1.3) mg/dL AST 27 (14-36) U/L ALT 27 (4-34) U/L Alkaline Phosphatase 120 (38-126) U/L Total Protein 7.0 (6.3-8.2) g/dL Albumin 4.3 (3.5-5.0) g/dL Amylase 58 (30-110) U/L Lipase 35 (23-300) U/L Urine Color Colorless Urine Appearance Clear (Clear) Urine pH 7.5 (5.0-8.0) Ur Specific [place] 1.011 (1.001-1.035) Urine Protein Negative (Negative) Urine Glucose (UA) Negative (Negative) Urine Ketones Negative (Negative) Urine Blood Negative (Negative) Urine Nitrite Negative (Negative) Urine Bilirubin Negative (Negative) Urine Urobilinogen <2.0 (<2.0) mg/dL Ur Leukocyte Esterase Small H (Negative) Urine RBC <1 (0-5) /hpf Urine WBC 1 (0-5) /hpf Ur Squamous Epith Cells 2 (0-4) /hpf Ur Transition Epith Cell <1 (0-1) /hpf Urine Bacteria Rare H (None) /hpf 11/23/23 Range/Units 09:20 WBC (3.8-10.6) k/uL RBC (3.80-5.40) m/uL Hgb (11.4-16.0) gm/dL Hct (34.0-46.0) % MCV (80.0-100.0) fL MCH (25.0-35.0) pg MCHC (31.0-37.0) g/dL RDW (11.5-15.5) % Plt Count (150-450) k/uL MPV Neutrophils % % Lymphocytes % % Monocytes % % Eosinophils % % Basophils % % Neutrophils # (1.3-7.7) k/uL Lymphocytes # (1.0-4.8) k/uL Monocytes # (0-1.0) k/uL Eosinophils # (0-0.7) k/uL Basophils # (0-0.2) k/uL Sodium (137-145) mmol/L Potassium (3.5-5.1) mmol/L Chloride (98-107) mmol/L Carbon Dioxide (22-30) mmol/L Anion Gap mmol/L BUN (7-17) mg/dL Creatinine (0.52-1.04) mg/dL Est GFR (CKD-EPI)AfAm (>60 ml/min/1.73 sqM) Est GFR (CKD-EPI)NonAf (>60 ml/min/1.73 sqM) Glucose (74-99) mg/dL Plasma Lactic Acid Santhosh 1.1 (0.7-2.0) mmol/L Calcium (8.4-10.2) mg/dL Total Bilirubin (0.2-1.3) mg/dL AST (14-36) U/L ALT (4-34) U/L Alkaline Phosphatase (38-126) U/L Total Protein (6.3-8.2) g/dL Albumin (3.5-5.0) g/dL Amylase (30-110) U/L Lipase (23-300) U/L Urine Color Urine Appearance (Clear) Urine pH (5.0-8.0) Ur Specific [place] (1.001-1.035) Urine Protein (Negative) Urine Glucose (UA) (Negative) Urine Ketones (Negative) Urine Blood (Negative) Urine Nitrite (Negative) Urine Bilirubin (Negative) Urine Urobilinogen (<2.0) mg/dL Ur Leukocyte Esterase (Negative) Urine RBC (0-5) /hpf Urine WBC (0-5) /hpf Ur Squamous Epith Cells (0-4) /hpf Ur Transition Epith Cell (0-1) /hpf Urine Bacteria (None) /hpf - Radiology Data Radiology results: report reviewed, image reviewed Disposition Clinical Impression: Abdominal pain Disposition: HOME SELF-CARE Instructions (If sedation given, give patient instructions): Abdominal Pain (ED) Additional Instructions: Return to the emergency department with any new, worsening, or concerning symptoms. Take the Toradol with Tylenol as needed for pain relief. If you choose to take the Toradol, do not take any other anti-inflammatories such as ibuprofen, take one or the other. Take the Zofran up to every 8 hours as needed for nausea and vomiting. I have listed several general surgeons below. You can try contacting their offices to see if they will see you as an ER follow-up pat ient regarding the abdominal pain and migrating cholecystectomy clip. I also provided a list of local primary care providers you can contact to become established for ongoing medical care. Prescriptions: Ketorolac [Toradol] 10 mg PO Q6HR PRN #15 tab PRN Reason: Pain Ondansetron Odt [Zofran Odt] 4 mg PO Q8HR PRN #20 tab PRN Reason: Nausea And Vomiting Is patient prescribed a controlled substance at d/c from ED?: No Referrals: None,Stated [Primary Care Provider] - 1-2 days Ryan Bahena MD [STAFF PHYSICIAN] - 1-2 days Jane Luis MD [STAFF PHYSICIAN] - 1-2 days Cinda Hall DO [REFERRING] - 1-2 days Forms: PH Area PCPs Time of Disposition: 10:15
[2023-11-23] MEDS: KETOROLAC 15 MG/ML 1 ML VIAL IVP STA ×2 (09:01→11:06)
[2023-11-23] MEDS: ONDANSETRON 4 MG/2 ML VIAL IVP STA (09:01)
[2023-11-23] MEDS: HYDROmorphone 1 MG/ML 1 ML SYRINGE IVP STA ×2 (09:03→11:05)
[2023-11-23 09:08] VITALS: TEMP 97.8
[2023-11-23] MEDS: SODIUM CHLORIDE 0.9% 1,000 ML IV STA (09:14)
[2023-11-23 09:21] LABS: Appearance,Urine Clear (Clear); Bacteria,Urine Rare /hpf; Bilirubin,Urine Negative (Negative); Blood,Urine Negative (Negative); Color,Urine Colorless; Glucose,Urine (UA) Negative (Negative); Ketones,Urine Negative (Negative); Leukocyte Esterase,Urine Small (Negative); Nitrite,Urine Negative (Negative); PH, Urine 7.5 (5.0-8.0); Protein,Urine Negative (Negative); RBC,Urine <1 /hpf (0-5); Specific Gravity,Urine 1.011 (1.001-1.035); Squamous Epithelial Cell,Urine 2 /hpf (0-4); Transitional Epi Cells,Urine <1 /hpf (0-1); Urobilinogen,Urine <2.0 mg/dL (<2.0); WBC,Urine 1 /hpf (0-5)
--- NOTE | 2023-11-23 09:48 | XR ---
KUB. HISTORY: Abdominal pain. COMPARISON: 10/09/2023. TECHNIQUE: 2 upright views of the abdomen were obtained. FINDINGS: The lung bases are clear. There is no free intraperitoneal air beneath the diaphragm. The bowel gas pattern is nonspecific and there is no evidence of obstruction. No suspicious abdominal or pelvic calcifications are seen. The osseous structures are intact. There are cholecystectomy clips. IMPRESSION: Nonspecific abdomen without evidence of free air or obstruction.
[2023-11-23 09:49] VITALS: RESP 16
[2023-11-23 09:53] LABS: ALT 27 U/L (4-34); AST 27 U/L (14-36); African American GFR (CKD) >90 (>60 ml/min/1.73 sqM); Albumin 4.3 g/dL (3.5-5.0); Alkaline Phosphatase 120 U/L (38-126); Amylase 58 U/L (30-110); Anion Gap 9 mmol/L; Blood Urea Nitrogen 11 mg/dL (7-17); Calcium 9.8 mg/dL (8.4-10.2); Carbon Dioxide 25 mmol/L (22-30); Chloride 106 mmol/L (98-107); Glucose 98 mg/dL (74-99); Lipase 35 U/L (23-300); Non-African American GFR(CKD) >90 (>60 ml/min/1.73 sqM); Potassium 4.1 mmol/L (3.5-5.1); Sodium 140 mmol/L (137-145); Total Bilirubin 0.8 mg/dL (0.2-1.3)
[2023-11-23 09:57] LABS: Basophils % (A) 0 %; Eosinophils % (A) 1 %; HCT 35.7 % (34.0-46.0); HGB 12.3 gm/dL (11.4-16.0); Lymphocytes # (A) 1.9 k/uL (1.0-4.8); Lymphocytes % (A) 36 %; MCH 31.1 pg (25.0-35.0); MCHC 34.4 g/dL (31.0-37.0); MCV 90.5 fL (80.0-100.0); Monocytes # (A) 0.3 k/uL (0-1.0); Monocytes % (A) 6 %; Neutrophils # (A) 2.9 k/uL (1.3-7.7); Neutrophils % (A) 55 %; Platelet Count 196 k/uL (150-450); RBC 3.94 m/uL (3.80-5.40); RDW 13.1 % (11.5-15.5); WBC 5.3 k/uL (3.8-10.6)
[2023-11-23] MEDS: ACET/COD 300 MG/30 MG STARTER PACK 6 TAB BTL PO STA (11:05)
[2023-11-23] MEDS: HYDROcodone/APAP 10-325MG 1 EACH TAB PO ONE (11:06)
[2023-11-23 11:49] VITALS: BP 112/67; PULSE 64
== END 2023-11-23 11:28 | disposition home or self-care (01) ==
LOC: EC 08:22
DX: R10.2 Pelvic and perineal pain (principal); Z88.2 Allergy status to sulfonamides; Z88.1 Allergy status to other antibiotic agents; Z88.8 Allergy status to other drugs, medicaments and biological substances
CPT/HCPCS: 36415; 80053; 82150; 83605; 83690; 85025; 81001; 74018; 99284; 96374; 96375; 96376; 96361; J2405; J1170; J1885

== ENCOUNTER 2023-11-26 04:37 | Emergency (ER) | payer OTHER ==
[2023-11-26 05:10] VITALS: TEMP 99.6
--- NOTE | 2023-11-26 05:14 | ED ---
Abdominal Pain HPI - General Chief Complaint: Abdominal Pain Stated Complaint: Pelvic pain Time Seen by Provider: 11/26/23 04:54 Source: patient, RN notes reviewed, old records reviewed Mode of arrival: ambulatory Limitations: no limitations - History of Present Illness Initial Comments: This is a 33-year-old female to the ER for evaluation patient presents today for evaluation abdominal pain with history of abdominal pain here in the emergency department multiple ER visits for similar pain. Patient has chronic pain issues MD Complaint: abdominal pain -: days(s) Location: diffuse, epigastric Radiation: epigastric Migration to: epigastric, suprapubic Severity: moderate Severity scale (1-10): 6 Quality: fullness, sharp Consistency: constant Improves With: nothing Worsens With: nothing - Related Data Home Medications Medication Instructions Recorded Confirmed Omeprazole 20 mg PO BID 03/07/22 03/17/23 Albuterol Inhaler [Ventolin Hfa 2 puff INHALATION RT-Q6H PRN 02/13/23 03/17/23 Inhaler] Escitalopram [Lexapro] 10 mg PO HS 03/17/23 03/17/23 Meloxicam [Mobic] 7.5 mg PO BID 03/17/23 03/17/23 Ondansetron Odt [Zofran Odt] 4 mg PO Q12HR PRN 03/17/23 03/17/23 Orphenadrine Citrate [Orphenadrine 100 mg PO BID 03/17/23 03/17/23 Citrate ER] Previous Rx's Medication Instructions Recorded Cyclobenzaprine [Flexeril] 5 mg PO TID PRN #15 tablet 05/27/23 Ondansetron Odt [Zofran Odt] 4 mg PO Q8HR PRN #20 tab 11/06/23 Ketorolac [Toradol] 10 mg PO Q6HR PRN #15 tab 11/23/23 Ondansetron Odt [Zofran Odt] 4 mg PO Q8HR PRN #20 tab 11/23/23 Ondansetron Odt [Zofran ODT] 4 mg PO Q8HR PRN #10 tab 12/03/23 Fosfomycin Tromethamine 3 gm PO ONCE #1 packet 12/07/23 Allergies Allergy/AdvReac Type Severity Reaction Status Date / Time sulfamethoxazole Allergy Severe Anaphylaxis Verified 12/07/23 08:40 [From Bactrim] trimethoprim [From Bactrim] Allergy Severe Anaphylaxis Verified 12/07/23 08:40 adhesive tape Allergy Rash/Hives Verified 12/07/23 08:40 aloe vera Allergy Rash/Hives Verified 12/07/23 08:40 azithromycin Allergy Rash/Hives Verified 12/07/23 08:40 cephalexin Allergy Rash/Hives Verified 12/07/23 08:40 metronidazole [From Flagyl] Allergy Rash/Hives Verified 12/07/23 08:40 Penicillins Allergy Rash/Hives Verified 12/07/23 08:40 alprazolam [From Xanax] AdvReac MAKES Verified 12/07/23 08:40 PARANOID dicyclomine [From Bentyl] AdvReac constipatio Verified 12/07/23 08:40 n Review of Systems ROS Statement: Those systems with pertinent positive or pertinent negative responses have been documented in the HPI. ROS Other: All systems not noted in ROS Statement are negative. Past Medical History Past Medical History: Blood Disorder, GERD/Reflux Additional Past Medical History / Comment(s): Endometriosis, polycystic ovarian syndrome. IRON DEFICIENCY ANEMIA. Stomach Ulcer. ovarian cyst History of Any Multi-Drug Resistant Organisms: None Reported Past Surgical History: Ablation, Section, Cholecystectomy, Hernia Repair, Hysterectomy, Tubal Ligation, Uterine Ablation Additional Past Surgical History / Comment(s): Laparoscopy X2, Section X3. Right ovary and right tube removed - 2019. cyst removed from chest. AUG 2020 - ADHESION REMOVAL FROM PAST . Vaginal. pelvic biopsy 05/11. PCOS Past Anesthesia/Blood Transfusion Reactions: No Reported Reaction Past Psychological History: Anxiety, Depression Smoking Status: Never smoker Past Alcohol Use History: Occasional Past Drug Use History: None Reported - Past Family History Mother Family Medical History: Hyperlipidemia Additional Family Medical History / Comment(s): Depression and anxiety. General Exam Limitations: no limitations General appearance: alert, in no apparent distress Head exam: Present: atraumatic, normocephalic, normal inspection Eye exam: Present: normal appearance, PERRL, EOMI. Absent: scleral icterus, conjunctival injection, periorbital swelling ENT exam: Present: normal exam, mucous membranes moist Neck exam: Present: normal inspection. Absent: tenderness, meningismus, lymphadenopathy Respiratory exam: Present: normal lung sounds bilaterally. Absent: respiratory distress, wheezes, rales, rhonchi, stridor Cardiovascular Exam: Present: regular rate, normal rhythm, normal heart sounds. Absent: systolic murmur, diastolic murmur, rubs, gallop, clicks GI/Abdominal exam: Present: soft, normal bowel sounds. Absent: distended, tenderness, guarding, rebound, rigid Extremities exam: Present: normal inspection, full ROM, normal capillary refill. Absent: tenderness, pedal edema, joint swelling, calf tenderness Back exam: Present: normal inspection Neurological exam: Present: alert, oriented X3, CN II-XII intact Psychiatric exam: Present: normal affect, normal mood Skin exam: Present: warm, dry, intact, normal color. Absent: rash Course Vital Signs 11/26/23 11/26/23 04:47 07:02 Temperature 99.6 F Pulse Rate 105 H 86 Respiratory 20 18 Rate Blood Pressure 130/81 111/79 O2 Sat by Pulse 100 98 Oximetry - Reevaluation(s) Reevaluation #1: 11/26/23 05:40 Medical records reviewed Reevaluation #2: 11/26/23 05:40 Patient symptoms unchanged Reevaluation #3: 11/26/23 05:40 Patient informed of results and questions answered Reevaluation #4: Was pt. sent in by a medical professional or institution (ANALI Leroy, EEG TECHNICIAN, urgent care, hospital, or shelter...) When possible be specific @ -no Did you speak to anyone other than the patient for history (EMS, parent, family, police, friend...)? What history was obtained from this source @ -no Did you review nursing and triage notes (agree or disagree)? Why? @ -agree Are old charts reviewed (outside hosp., previous admission, EMS record, old EKG, old radiological studies, urgent care reports/EKG's, shelter records)? Report findings @ -yes Differential Diagnosis (chest pain, altered mental status, abdominal pain women, abdominal pain men, vaginal bleeding, weakness, fever, dyspnea, syncope, headache, dizziness, GI bleed, back pain, seizure, CVA, palpatations, mental health, musculoskeletal)? @ -prior EKG interpreted by me (3pts min.). @ -no X-rays interpreted by me (1pt min.). @ -yes negative for acute disease CT interpreted by me (1pt min.). @ -no U/S interpreted by me (1pt. min.). @ -no What testing was considered but not performed or refused? (CT, X-rays, U/S, labs)? Why? @ -none What meds were considered but not given or refused? Why? @ -none Did you discuss the management of the patient with other professionals (professionals i.e. DrLuciano, PA, EEG TECHNICIAN, lab, RT, psych nurse, social security specialist, local area network systems adminstrator, teacher, global chief experience officer, sample case porter)? Give summary @ -no Was smoking cessation discussed for >3mins.? @ -no Was critical care preformed (if so, how long)? @ -no Were there social determinants of health that impacted care today? How? (Homelessness, low income, unemployed, alcoholism, drug addiction, transportation, low edu. Level, literacy, decrease access to med. care, residential, rehab)? @ -none Was there de-escalation of care discussed even if they declined (Discuss DNR or withdrawal of care, Hospice)? DNR status @ -no What co-morbidities impacted this encounter? (DM, HTN, Smoking, COPD, CAD, Cancer, CVA, ARF, Chemo, Hep., AIDS, mental health diagnosis, sleep apnea, morbid obesity)? @ -none Was patient admitted / discharged? Hospital course, mention meds given and route, prescriptions, significant lab abnormalities, going to OR and other pertinent info. @ - 33 female to ER for evaluation of nonspecific abdominal pain. Patient has improved symptoms here in the ER feels well can be discharged home Discharge Undiagnosed new problem with uncertain prognosis? @ -no Drug Therapy requiring intensive monitoring for toxicity (Heparin, Nitro, Insulin, Cardizem)? @ -no Were any procedures done? @ -no Diagnosis/symptom? @ -Abdominal pain Acute, or Chronic, or Acute on Chronic? @ -Acute Uncomplicated (without systemic symptoms) or Complicated (systemic symptoms)? @ -Complicated Side effects of treatment? @ -no Exacerbation, Progression, or Severe Exacerbation? @ -exacerbation Poses a threat to life or bodily function? How? (Chest pain, USA, DC, pneumonia, PE, COPD, DKA, ARF, appy, cholecystitis, CVA, Diverticulitis, Homicidal, Suicidal, threat to staff... and all critical care pts) @ -no Reevaluation #5: Differential Abdominal Pain Women: Appendicitis, Cholecystitis, diverticulosis, ischemic bowel, pancreatitis, hepatitis, UTI, gastroenteritis, AAA, incarcerated hernia, bowel obstruction, constipation, inflammatory bowel, hepatitis, peptic ulcer disease, splenic infarction, perforated viscus, vulvitis, ovarian torsion, PID, kidney stone, placenta abruption, this is not meant to be an all-inclusive list Medical Decision Making - Medical Decision Making 33 female to ER for evaluation of nonspecific abdominal pain. Patient has improved symptoms here in the ER feels well can be discharged home - Lab Data Lab Results 11/26/23 11/26/23 Range/Units 05:20 05:20 Urine Color Colorless Urine Appearance Clear (Clear) Urine pH 6.0 (5.0-8.0) Ur Specific [place] 1.011 (1.001-1.035) Urine Protein Negative (Negative) Urine Glucose (UA) Negative (Negative) Urine Ketones Negative (Negative) Urine Blood Negative (Negative) Urine Nitrite Negative (Negative) Urine Bilirubin Negative (Negative) Urine Urobilinogen <2.0 (<2.0) mg/dL Ur Leukocyte Esterase Negative (Negative) Urine HCG, Qual Not Detected (Not Detectd) - Radiology Data Radiology results: report reviewed (X-ray KUB is negative for acute disease), image reviewed Disposition Clinical Impression: Abdominal pain Disposition: HOME SELF-CARE Condition: Good Instructions (If sedation given, give patient instructions): Abdominal Pain (ED) Is patient prescribed a controlled substance at d/c from ED?: No Referrals: None,Stated [Primary Care Provider] - 1-2 days Time of Disposition: 06:40
[2023-11-26 05:56] LABS: Appearance,Urine Clear (Clear); Bilirubin,Urine Negative (Negative); Blood,Urine Negative (Negative); Color,Urine Colorless; Glucose,Urine (UA) Negative (Negative); Ketones,Urine Negative (Negative); Leukocyte Esterase,Urine Negative (Negative); Nitrite,Urine Negative (Negative); Protein,Urine Negative (Negative); Specific Gravity,Urine 1.011 (1.001-1.035); Urobilinogen,Urine <2.0 mg/dL (<2.0)
[2023-11-26] MEDS: diphenhydrAMINE 50 MG CAP PO STA (05:57)
[2023-11-26] MEDS: HYDROmorphone 1 MG/ML 1 ML SYRINGE IM STA (05:57)
[2023-11-26] MEDS: diphenhydrAMINE 50 MG/ML 1 ML VIAL IVP STA (06:00)
[2023-11-26] MEDS: HYDROmorphone 1 MG/ML 1 ML SYRINGE IVP STA (06:01)
[2023-11-26] MEDS: PROCHLORPERAZINE INJ 10 MG/2 ML VIAL IVP STA (06:01)
[2023-11-26] MEDS: PROCHLORPERAZINE 10 MG TAB PO STA (06:29)
--- NOTE | 2023-11-26 06:38 | XR ---
EXAMINATION TYPE: XR KUB portable DATE OF EXAM: 11/26/2023 6:28 AM CLINICAL HISTORY: Left lower quadrant abdominal and pelvic pain with vomiting TECHNIQUE: Two supine KUB images of the abdomen are obtained. COMPARISON: Prior abdominal x-ray from 3 days earlier. FINDINGS: Some paucity of bowel gas. Scattered gas is seen in nondistended small and large bowel loop s. Cholecystectomy clips are redemonstrated. Tubal ligation clips in the pelvis again seen. Lung base s are clear. Osseous structures are intact. IMPRESSION: Overall nonspecific but strongly favor nonobstructive bowel gas pattern redemonstrated.
[2023-11-26 07:24] VITALS: BP 111/79; PULSE 86; RESP 18
== END 2023-11-26 07:14 | disposition home or self-care (01) ==
LOC: EC 04:37
DX: R10.2 Pelvic and perineal pain (principal); R10.13 Epigastric pain; Z88.1 Allergy status to other antibiotic agents; Z88.0 Allergy status to penicillin; Z88.2 Allergy status to sulfonamides; Z91.09 Other allergy status, other than to drugs and biological substances; Z88.8 Allergy status to other drugs, medicaments and biological substances; Z90.49 Acquired absence of other specified parts of digestive tract; Z87.11 Personal history of peptic ulcer disease
CPT/HCPCS: 81003; 81025; 74018; 99284; 96372; S0183; J1170

== ENCOUNTER 2023-11-29 08:29 | Emergency (ER) | payer OTHER ==
--- NOTE | 2023-11-29 08:46 | ED ---
General Adult HPI - General Chief complaint: Abdominal Pain Stated complaint: Abd pain,Vomiting Time Seen by Provider: 11/29/23 08:35 Source: patient, RN notes reviewed, old records reviewed Mode of arrival: ambulatory Limitations: no limitations - History of Present Illness Initial comments: This is a 33-year-old female who presents to the emergency department complaining of abdominal pain. Patient states she is also having diarrhea. Patient states she has chronically had abdominal pain. Patient states she supposed to have surgery later this month with Dr. Baez to look for adhesions. Patient denies any fever or chills. Patient has any nausea vomiting. Patient Nuys any back pain. Patient Nuys dysuria hematuria or frequency. - Related Data Home Medications Medication Instructions Recorded Confirmed Omeprazole 20 mg PO BID 03/07/22 03/17/23 Albuterol Inhaler [Ventolin Hfa 2 puff INHALATION RT-Q6H PRN 02/13/23 03/17/23 Inhaler] Escitalopram [Lexapro] 10 mg PO HS 03/17/23 03/17/23 Meloxicam [Mobic] 7.5 mg PO BID 03/17/23 03/17/23 Ondansetron Odt [Zofran Odt] 4 mg PO Q12HR PRN 03/17/23 03/17/23 Orphenadrine Citrate [Orphenadrine 100 mg PO BID 03/17/23 03/17/23 Citrate ER] Previous Rx's Medication Instructions Recorded Cyclobenzaprine [Flexeril] 5 mg PO TID PRN #15 tablet 05/27/23 Ondansetron Odt [Zofran Odt] 4 mg PO Q8HR PRN #20 tab 11/06/23 Ketorolac [Toradol] 10 mg PO Q6HR PRN #15 tab 11/23/23 Ondansetron Odt [Zofran Odt] 4 mg PO Q8HR PRN #20 tab 11/23/23 Allergies Allergy/AdvReac Type Severity Reaction Status Date / Time sulfamethoxazole Allergy Severe Anaphylaxis Verified 11/29/23 08:34 [From Bactrim] trimethoprim [From Bactrim] Allergy Severe Anaphylaxis Verified 11/29/23 08:34 adhesive tape Allergy Rash/Hives Verified 11/29/23 08:34 aloe vera Allergy Rash/Hives Verified 11/29/23 08:34 azithromycin Allergy Rash/Hives Verified 11/29/23 08:34 cephalexin Allergy Rash/Hives Verified 11/29/23 08:34 metronidazole [From Flagyl] Allergy Rash/Hives Verified 11/29/23 08:34 Penicillins Allergy Rash/Hives Verified 11/29/23 08:34 alprazolam [From Xanax] AdvReac MAKES Verified 11/29/23 08:34 PARANOID dicyclomine [From Bentyl] AdvReac constipatio Verified 11/29/23 08:34 n Review of Systems ROS Statement: Those systems with pertinent positive or pertinent negative responses have been documented in the HPI. ROS Other: All systems not noted in ROS Statement are negative. Past Medical History Past Medical History: Blood Disorder, GERD/Reflux Additional Past Medical History / Comment(s): Endometriosis, polycystic ovarian syndrome. IRON DEFICIENCY ANEMIA. Stomach Ulcer. ovarian cyst History of Any Multi-Drug Resistant Organisms: None Reported Past Surgical History: Ablation, Section, Cholecystectomy, Hernia Repair, Hysterectomy, Tubal Ligation, Uterine Ablation Additional Past Surgical History / Comment(s): Laparoscopy X2, Section X3. Right ovary and right tube removed - 2019. cyst removed from chest. AUG 2020 - ADHESION REMOVAL FROM PAST . Vaginal. pelvic biopsy 05/11. PCOS Past Anesthesia/Blood Transfusion Reactions: No Reported Reaction Past Psychological History: Anxiety, Depression Smoking Status: Never smoker Past Alcohol Use History: Rare Past Drug Use History: None Reported - Past Family History Mother Family Medical History: Hyperlipidemia Additional Family Medical History / Comment(s): Depression and anxiety. General Exam - General Exam Comments Initial Comments: GENERAL: Patient is well-developed and well-nourished. Patient is nontoxic and well- hydrated and is in mild distress. ENT: Neck is soft and supple. No significant lymphadenopathy is noted. Oropharynx is clear. Moist mucous membranes. Neck has full range of motion without eliciting any pain. EYES: The sclera were anicteric and conjunctiva were pink and moist. Extraocular movements were intact and pupils were equal round and reactive to light. Eyelids were unremarkable. PULMONARY: Unlabored respirations. Good breath sounds bilaterally. No audible rales rhonchi or wheezing was noted. CARDIOVASCULAR: There is a regular rate and rhythm without any murmurs gallops or rubs. ABDOMEN: Soft and nontender with normal bowel sounds. SKIN: Skin is clear with no lesions or rashes and otherwise unremarkable. NEUROLOGIC: Patient is alert and oriented x3. Cranial nerves II through XII are grossly intact. Motor and sensory are also intact. Normal speech, volume and content. Symmetrical smile. MUSCULOSKELETAL: Normal extremities with adequate strength and full range of motion. No lower extremity swelling or edema. No calf tenderness. LYMPHATICS: No significant lymphadenopathy is noted PSYCHIATRIC: Normal psychiatric evaluation. Limitations: no limitations Course Vital Signs 11/29/23 11/29/23 08:31 09:15 Temperature 98.6 F 97.7 F Pulse Rate 77 77 Respiratory 18 16 Rate Blood Pressure 140/94 117/82 O2 Sat by Pulse 96 98 Oximetry Medical Decision Making - Medical Decision Making Was pt. sent in by a medical professional or institution (ANALI Leroy, GUM MACHINE FILLER, urgent care, hospital, or retirement...) When possible be specific @ -No Did you speak to anyone other than the patient for history (EMS, parent, family, police, friend...)? What history was obtained from this source @ -No Did you review nursing and triage notes (agree or disagree)? Why? @ -I reviewed and agree with nursing and triage notes Were old charts reviewed (outside hosp., previous admission, EMS record, old EKG, old radiological studies, urgent care reports/EKG's, retirement records)? Report findings @ -No old charts were reviewed Differential Diagnosis (chest pain, altered mental status, abdominal pain women, abdominal pain men, vaginal bleeding, weakness, fever, dyspnea, syncope, headache, dizziness, GI bleed, back pain, seizure, CVA, palpatations, mental health, musculoskeletal)? @ -MDM abdominal pain women EKG interpreted by me (3pts min.). @ -As above X-rays interpreted by me (1pt min.). @ -None done CT interpreted by me (1pt min.). @ -None done U/S interpreted by me (1pt. min.). @ -None done What testing was considered but not performed or refused? (CT, X-rays, U/S, labs)? Why? @ -None What meds were considered but not given or refused? Why? @ -None Did you discuss the management of the patient with other professionals (professionals i.e. ANALI Leroy, GUM MACHINE FILLER, lab, RT, psych nurse, social sciences lecturer, dinkey engine mechanic, teacher, special officer automat, case aide)? Give summary @ -No Was smoking cessation discussed for >3mins.? @ -No Was critical care preformed (if so, how long)? @ -No Were there social determinants of health that impacted care today? How? (Homelessness, low income, unemployed, alcoholism, drug addiction, transportation, low edu. Level, literacy, decrease access to med. care, [facility], rehab)? @ -No Was there de-escalation of care discussed even if they declined (Discuss DNR or withdrawal of care, Hospice)? DNR status @ -No What co-morbidities impacted this encounter? (DM, HTN, Smoking, COPD, CAD, Cancer, CVA, ARF, Chemo, Hep., AIDS, mental health diagnosis, sleep apnea, morbid obesity)? @ -None Was patient admitted / discharged? Hospital course, mention meds given and route, prescriptions, significant lab abnormalities, going to OR and other pertinent info. @ -Patient was given Lomotil for diarrhea. I went back and she did not look like she was in any distress however she continued to complain that she was having pain so patient was given droperidol. Patient was feeling better patient will be discharged home. Undiagnosed new problem with uncertain prognosis? @ -No Drug Therapy requiring intensive monitoring for toxicity (Heparin, Nitro, Insulin, Cardizem)? @ -No Were any procedures done? @ -No Diagnosis/symptom? @ -Abdominal pain Acute, or Chronic, or Acute on Chronic? @ -Acute Uncomplicated (without systemic symptoms) or Complicated (systemic symptoms)? @ -Complicated Side effects of treatment? @ -No Exacerbation, Progression, or Severe Exacerbation? @ -No Poses a threat to life or bodily function? How? (Chest pain, [place], [place], pneumonia, PE, COPD, DKA, ARF, appy, cholecystitis, CVA, Diverticulitis, Homicidal, Suicidal, threat to staff... and all critical care pts) @ -No - Lab Data Result diagrams: 11/29/23 08:48 11/29/23 08:48 Lab Results 11/29/23 11/29/23 Range/Units 08:48 08:48 WBC 4.4 (3.8-10.6) k/uL RBC 3.72 L (3.80-5.40) m/uL Hgb 11.2 L (11.4-16.0) gm/dL Hct 33.9 L (34.0-46.0) % MCV 90.9 (80.0-100.0) fL MCH 30.1 (25.0-35.0) pg MCHC 33.1 (31.0-37.0) g/dL RDW 13.0 (11.5-15.5) % Plt Count 192 (150-450) k/uL MPV 8.0 Neutrophils % 62 % Lymphocytes % 31 % Monocytes % 4 % Eosinophils % 1 % Basophils % 0 % Neutrophils # 2.7 (1.3-7.7) k/uL Lymphocytes # 1.3 (1.0-4.8) k/uL Monocytes # 0.2 (0-1.0) k/uL Eosinophils # 0.0 (0-0.7) k/uL Basophils # 0.0 (0-0.2) k/uL Sodium 140 (137-145) mmol/L Potassium 4.0 (3.5-5.1) mmol/L Chloride 107 (98-107) mmol/L Carbon Dioxide 31 H (22-30) mmol/L Anion Gap 2 mmol/L BUN 11 (7-17) mg/dL Creatinine 0.75 (0.52-1.04) mg/dL Est GFR (CKD-EPI)AfAm >90 (>60 ml/min/1.73 sqM) Est GFR (CKD-EPI)NonAf >90 (>60 ml/min/1.73 sqM) Glucose 91 (74-99) mg/dL Calcium 9.6 (8.4-10.2) mg/dL Total Bilirubin 0.6 (0.2-1.3) mg/dL AST 24 (14-36) U/L ALT 23 (4-34) U/L Alkaline Phosphatase 111 (38-126) U/L Total Protein 6.8 (6.3-8.2) g/dL Albumin 4.1 (3.5-5.0) g/dL Amylase 49 (30-110) U/L Lipase 32 (23-300) U/L Disposition Clinical Impression: Abdominal pain, Diarrhea Disposition: HOME SELF-CARE Instructions (If sedation given, give patient instructions): Abdominal Pain (ED) Is patient prescribed a controlled substance at d/c from ED?: No Referrals: None,Stated [Primary Care Provider] - 1-2 days Time of Disposition: 11:01
[2023-11-29] MEDS: DIPHENOX-ATROP 2.5-0.025 MG 1 EACH TAB PO STA (08:58)
[2023-11-29] MEDS: SODIUM CHLORIDE 0.9% 500 ML 500 ML IV STA (09:10)
[2023-11-29] MEDS: DICYCLOMINE 10 MG/ML 2 ML AMP IM STA (09:14)
[2023-11-29] MEDS: KETOROLAC 15 MG/ML 1 ML VIAL IVP STA (09:26)
[2023-11-29 09:32] LABS: Basophils % (A) 0 %; Eosinophils % (A) 1 %; HCT 33.9 % (34.0-46.0); HGB 11.2 gm/dL (11.4-16.0); Lymphocytes # (A) 1.3 k/uL (1.0-4.8); Lymphocytes % (A) 31 %; MCH 30.1 pg (25.0-35.0); MCHC 33.1 g/dL (31.0-37.0); MCV 90.9 fL (80.0-100.0); Monocytes # (A) 0.2 k/uL (0-1.0); Monocytes % (A) 4 %; Neutrophils # (A) 2.7 k/uL (1.3-7.7); Neutrophils % (A) 62 %; Platelet Count 192 k/uL (150-450); RBC 3.72 m/uL (3.80-5.40); WBC 4.4 k/uL (3.8-10.6)
[2023-11-29 09:43] LABS: ALT 23 U/L (4-34); AST 24 U/L (14-36); African American GFR (CKD) >90 (>60 ml/min/1.73 sqM); Albumin 4.1 g/dL (3.5-5.0); Alkaline Phosphatase 111 U/L (38-126); Amylase 49 U/L (30-110); Anion Gap 2 mmol/L; Blood Urea Nitrogen 11 mg/dL (7-17); Calcium 9.6 mg/dL (8.4-10.2); Carbon Dioxide 31 mmol/L (22-30); Chloride 107 mmol/L (98-107); Glucose 91 mg/dL (74-99); Lipase 32 U/L (23-300); Non-African American GFR(CKD) >90 (>60 ml/min/1.73 sqM); Sodium 140 mmol/L (137-145); Total Bilirubin 0.6 mg/dL (0.2-1.3); Total Protein 6.8 g/dL (6.3-8.2)
[2023-11-29] MEDS: droPERidol 5 MG/2 ML VIAL IVP ONE (11:09)
[2023-11-29 12:13] VITALS: BP 101/69; PULSE 94; RESP 18; TEMP 98.7
== END 2023-11-29 11:32 | disposition home or self-care (01) ==
LOC: EC 08:29
DX: R10.9 Unspecified abdominal pain (principal); R19.7 Diarrhea, unspecified; Z88.2 Allergy status to sulfonamides; Z88.1 Allergy status to other antibiotic agents; Z91.09 Other allergy status, other than to drugs and biological substances; Z88.0 Allergy status to penicillin; Z88.8 Allergy status to other drugs, medicaments and biological substances
CPT/HCPCS: 36415; 80053; 82150; 83690; 85025; 99284; 96374; 96375; 96361 ×2; J1885; J1790

== ENCOUNTER 2023-12-03 20:36 | Emergency (ER) | payer OTHER ==
[2023-12-03 21:57] VITALS: TEMP 98.2
--- NOTE | 2023-12-03 22:01 | ED ---
Abdominal Pain HPI - General Chief Complaint: Abdominal Pain Stated Complaint: Abd Pain,Vomiting Time Seen by Provider: 12/03/23 21:21 Source: patient Limitations: no limitations - History of Present Illness Initial Comments: This patient is a 33-year-old woman who presents to evaluation for abdominal pain. She states she has been having abdominal pains nearly 3 weeks. She in dicates that the pains are present throughout the abdomen, sometimes worse in the left lower quadrant. The patient presents today because she had onset of vomiting and has not tolerating anything by mouth now. The patient does state that she is scheduled for surgery with Dr. Alexey Rao in 10 days to have lysis of adhesions. She states that there is also a displaced surgical clip related to cholecystectomy that will be removed at that time as well. The patient states that she also has been dealing with urinary tract infection diagnosed 3 days ago and that she has completed 3 days of treatment. She states that there is no urinary symptoms currently. She did have flatus. Last bowel movement yesterday normal. MD Complaint: abdominal pain -: week(s) Location: diffuse, LLQ Radiation: none Migration to: no migration Severity: moderate Quality: cramping, aching Consistency: constant Improves With: nothing Worsens With: nothing Associated Symptoms: nausea, vomiting - Related Data LMP (females 10-50): other (Hysterectomy) Previous Rx's Medication Instructions Recorded Acetaminophen Tab [Tylenol] 650 mg PO Q6H #30 tab 12/13/23 Docusate [Colace] 100 mg PO BID #20 capsule 12/13/23 Ibuprofen [Motrin] 600 mg PO Q6HR PRN #40 tab 12/13/23 oxyCODONE HCL/ACETAMINOPHEN 1 tab PO Q6HR PRN 3 Days #12 tab 12/14/23 [Percocet 5-325 mg] Allergies Allergy/AdvReac Type Severity Reaction Status Date / Time sulfamethoxazole Allergy Severe Anaphylaxis Verified 12/17/23 19:03 [From Bactrim] trimethoprim [From Bactrim] Allergy Severe Anaphylaxis Verified 12/17/23 19:03 adhesive tape Allergy Rash/Hives Verified 12/17/23 19:03 aloe vera Allergy Rash/Hives Verified 12/17/23 19:03 azithromycin Allergy Rash/Hives Verified 12/17/23 19:03 cephalexin Allergy Rash/Hives Verified 12/17/23 19:03 metronidazole [From Flagyl] Allergy Rash/Hives Verified 12/17/23 19:03 Penicillins Allergy Rash/Hives Verified 12/17/23 19:03 alprazolam [From Xanax] AdvReac MAKES Verified 12/17/23 19:03 PARANOID dicyclomine [From Bentyl] AdvReac constipatio Verified 12/17/23 19:03 n Review of Systems ROS Statement: Those systems with pertinent positive or pertinent negative responses have been documented in the HPI. ROS Other: All systems not noted in ROS Statement are negative. Constitutional: Denies: fever, chills Respiratory: Denies: cough, dyspnea Cardiovascular: Denies: chest pain, palpitations Gastrointestinal: Reports: abdominal pain, nausea, vomiting. Denies: diarrhea, constipation, melena, hematochezia Genitourinary: Denies: dysuria, frequency, hematuria Musculoskeletal: Denies: back pain Skin: Denies: rash Neurological: Denies: headache, weakness, numbness Past Medical History Past Medical History: Blood Disorder, GERD/Reflux Additional Past Medical History / Comment(s): Endometriosis, polycystic ovarian syndrome. IRON DEFICIENCY ANEMIA. Stomach Ulcer. ovarian cyst History of Any Multi-Drug Resistant Organisms: None Reported Past Surgical History: Ablation, Section, Cholecystectomy, Hernia Repair, Hysterectomy, Tubal Ligation, Uterine Ablation Additional Past Surgical History / Comment(s): Laparoscopy X2, Section X3. Right ovary and right tube removed - 2019. cyst removed from chest. AUG 2020 - ADHESION REMOVAL FROM PAST . Vaginal. pelvic biopsy 05/11. PCOS Past Anesthesia/Blood Transfusion Reactions: No Reported Reaction Past Psychological History: Anxiety, Depression Smoking Status: Never smoker Past Alcohol Use History: Rare Past Drug Use History: None Reported - Past Family History Mother Family Medical History: Hyperlipidemia Additional Family Medical History / Comment(s): Depression and anxiety. General Exam Limitations: no limitations General appearance: alert, in no apparent distress Head exam: Present: atraumatic, normocephalic Eye exam: Present: normal appearance. Absent: scleral icterus, conjunctival injection Neck exam: Present: normal inspection Respiratory exam: Present: normal lung sounds bilaterally. Absent: respiratory distress, wheezes, rales, rhonchi, stridor, accessory muscle use Cardiovascular Exam: Present: regular rate, normal rhythm, normal heart sounds. Absent: systolic murmur, diastolic murmur, rubs, gallop GI/Abdominal exam: Present: soft, normal bowel sounds. Absent: distended, tenderness, guarding, rebound, rigid, mass, pulsatile mass, hernia Extremities exam: Present: normal inspection, normal capillary refill. Absent: pedal edema, calf tenderness Back exam: Present: normal inspection. Absent: CVA tenderness (R), CVA tenderness (L) Neurological exam: Present: alert Skin exam: Present: warm, dry, intact, normal color. Absent: rash Course Vital Signs 12/03/23 12/03/23 12/03/23 21:07 22:19 23:58 Temperature 98.2 F Pulse Rate 98 95 78 Respiratory 22 18 18 Rate Blood Pressure 123/88 140/95 109/65 O2 Sat by Pulse 100 98 98 Oximetry Medical Decision Making - Medical Decision Making Was pt. sent in by a medical professional or institution (, PA, AESTHETICS INSTRUCTOR, urgent care, hospital, or intermediate...) When possible be specific @ -[No] Did you speak to anyone other than the patient for history (EMS, parent, family, police, friend...)? What history was obtained from this source @ -[No] Did you review nursing and triage notes (agree or disagree)? Why? @ -[I reviewed and agree with nursing and triage notes] Were old charts reviewed (outside hosp., previous admission, EMS record, old EKG, old radiological studies, urgent care reports/EKG's, intermediate records)? Report findings @ -[No old charts were reviewed] Differential Diagnosis (chest pain, altered mental status, abdominal pain women, abdominal pain men, vaginal bleeding, weakness, fever, dyspnea, syncope, headache, dizziness, GI bleed, back pain, seizure, CVA, palpatations, mental health, musculoskeletal)? @ -[Differential Abdominal Pain Women: Appendicitis, Cholecystitis, diverticulosis, ischemic bowel, pancreatitis, hepatitis, UTI, gastroenteritis, AAA, incarcerated hernia, bowel obstruction, constipation, inflammatory bowel, hepatitis, peptic ulcer disease, splenic infarction, perforated viscus, vulvitis, ovarian torsion, PID, kidney stone, placenta abruption, this is not meant to be an all-inclusive list EKG interpreted by me (3pts min.). @ -[ X-rays interpreted by me (1pt min.). @ -[None done] CT interpreted by me (1pt min.). @ -[None done] U/S interpreted by me (1pt. min.). @ -[None done] What testing was considered but not performed or refused? (CT, X-rays, U/S, labs)? Why? @ -[None] What meds were considered but not given or refused? Why? @ -[None] Did you discuss the management of the patient with other professionals (professionals i.e. , PA, AESTHETICS INSTRUCTOR, lab, RT, psych nurse, aids social worker, respiratory technician, t eacher, guest services officer, case picker)? Give summary @ -[No] Was smoking cessation discussed for >3mins.? @ -[No] Was critical care preformed (if so, how long)? @ -[No] Were there social determinants of health that impacted care today? How? (Homelessness, low income, unemployed, alcoholism, drug addiction, transportation, low edu. Level, literacy, decrease access to med. care, alf, rehab)? @ -[No] Was there de-escalation of care discussed even if they declined (Discuss DNR or withdrawal of care, Hospice)? DNR status @ -[No] What co-morbidities impacted this encounter? (DM, HTN, Smoking, COPD, CAD, Cancer, CVA, ARF, Chemo, Hep., AIDS, mental health diagnosis, sleep apnea, morbid obesity)? @ -[None] Was patient admitted / discharged? Hospital course, mention meds given and route, prescriptions, significant lab abnormalities, going to OR and other pertinent info. @ -[This patient is a 33-year-old woman who has been having intermittent abdominal pains and states she has surgery scheduled in the near future. She presents for symptomatic relief mainly. She did have good response to treatment here. Her exam and studies not concerning for acute surgical condition. Discussed appropriate further care and follow-up as well as return parameters. Undiagnosed new problem with uncertain prognosis? @ -[No] Drug Therapy requiring intensive monitoring for toxicity (Heparin, Nitro, I nsulin, Cardizem)? @ -[No] Were any procedures done? @ -[No] Diagnosis/symptom? @ -[Acute nausea and vomiting Acute on chronic abdominal pain Acute, or Chronic, or Acute on Chronic? @ -[default] Uncomplicated (without systemic symptoms) or Complicated (systemic symptoms)? @ -[Uncomplicated Side effects of treatment? @ -[No] Exacerbation, Progression, or Severe Exacerbation? @ -[No] Poses a threat to life or bodily function? How? (Chest pain, [place], [place], pneumonia, PE, COPD, DKA, ARF, appy, cholecystitis, CVA, Diverticulitis, Homicidal, Suicidal, threat to staff... and all critical care pts) @ -[No] - Lab Data Result diagrams: 12/03/23 22:02 12/03/23 22:02 Lab Results 12/03/23 12/03/23 12/03/23 Range/Units 22:02 22:02 22:02 WBC 5.7 (3.8-10.6) k/uL RBC 3.68 L (3.80-5.40) m/uL Hgb 11.1 L (11.4-16.0) gm/dL Hct 33.7 L (34.0-46.0) % MCV 91.5 (80.0-100.0) fL MCH 30.1 (25.0-35.0) pg MCHC 32.9 (31.0-37.0) g/dL RDW 12.8 (11.5-15.5) % Plt Count 190 (150-450) k/uL MPV 8.1 Neutrophils % 63 % Lymphocytes % 30 % Monocytes % 6 % Eosinophils % 1 % Basophils % 0 % Neutrophils # 3.6 (1.3-7.7) k/uL Lymphocytes # 1.7 (1.0-4.8) k/uL Monocytes # 0.3 (0-1.0) k/uL Eosinophils # 0.0 (0-0.7) k/uL Basophils # 0.0 (0-0.2) k/uL Sodium 140 (137-145) mmol/L Potassium 3.8 (3.5-5.1) mmol/L Chloride 106 (98-107) mmol/L Carbon Dioxide 30 (22-30) mmol/L Anion Gap 4 mmol/L BUN 18 H (7-17) mg/dL Creatinine 1.32 H (0.52-1.04) mg/dL Est GFR (CKD-EPI)AfAm 61 (>60 ml/min/1.73 sqM) Est GFR (CKD-EPI)NonAf 53 (>60 ml/min/1.73 sqM) Glucose 90 (74-99) mg/dL Plasma Lactic Acid Santhosh (0.7-2.0) mmol/L Calcium 9.3 (8.4-10.2) mg/dL Total Bilirubin 0.6 (0.2-1.3) mg/dL AST 21 (14-36) U/L ALT 17 (4-34) U/L Alkaline Phosphatase 110 (38-126) U/L C-Reactive Protein (<1.0) mg/dL Total Protein 6.6 (6.3-8.2) g/dL Albumin 3.9 (3.5-5.0) g/dL Amylase 57 (30-110) U/L Lipase 51 (23-300) U/L Urine Color Dark Yellow Urine Appearance Clear (Clear) Urine pH 7.0 (5.0-8.0) Ur Specific [place] 1.013 (1.001-1.035) Urine Protein Negative (Negative) Urine Glucose (UA) Negative (Negative) Urine Ketones Negative (Negative) Urine Blood Negative (Negative) Urine Nitrite Positive H (Negative) Urine Bilirubin Negative (Negative) Urine Urobilinogen <2.0 (<2.0) mg/dL Ur Leukocyte Esterase Negative (Negative) Urine WBC 1 (0-5) /hpf Ur Squamous Epith Cells 1 (0-4) /hpf Urine Mucus Rare H (None) /hpf 12/03/23 12/03/23 Range/Units 22:02 22:02 WBC (3.8-10.6) k/uL RBC (3.80-5.40) m/uL Hgb (11.4-16.0) gm/dL Hct (34.0-46.0) % MCV (80.0-100.0) fL MCH (25.0-35.0) pg MCHC (31.0-37.0) g/dL RDW (11.5-15.5) % Plt Count (150-450) k/uL MPV Neutrophils % % Lymphocytes % % Monocytes % % Eosinophils % % Basophils % % Neutrophils # (1.3-7.7) k/uL Lymphocytes # (1.0-4.8) k/uL Monocytes # (0-1.0) k/uL Eosinophils # (0-0.7) k/uL Basophils # (0-0.2) k/uL Sodium (137-145) mmol/L Potassium (3.5-5.1) mmol/L Chloride (98-107) mmol/L Carbon Dioxide (22-30) mmol/L Anion Gap mmol/L BUN (7-17) mg/dL Creatinine (0.52-1.04) mg/dL Est GFR (CKD-EPI)AfAm (>60 ml/min/1.73 sqM) Est GFR (CKD-EPI)NonAf (>60 ml/min/1.73 sqM) Glucose (74-99) mg/dL Plasma Lactic Acid Santhosh 0.8 (0.7-2.0) mmol/L Calcium (8.4-10.2) mg/dL Total Bilirubin (0.2-1.3) mg/dL AST (14-36) U/L ALT (4-34) U/L Alkaline Phosphatase (38-126) U/L C-Reactive Protein 0.5 (<1.0) mg/dL Total Protein (6.3-8.2) g/dL Albumin (3.5-5.0) g/dL Amylase (30-110) U/L Lipase (23-300) U/L Urine Color Urine Appearance (Clear) Urine pH (5.0-8.0) Ur Specific [place] (1.001-1.035) Urine Protein (Negative) Urine Glucose (UA) (Negative) Urine Ketones (Negative) Urine Blood (Negative) Urine Nitrite (Negative) Urine Bilirubin (Negative) Urine Urobilinogen (<2.0) mg/dL Ur Leukocyte Esterase (Negative) Urine WBC (0-5) /hpf Ur Squamous Epith Cells (0-4) /hpf Urine Mucus (None) /hpf Disposition Clinical Impression: Nausea and vomiting Disposition: HOME SELF-CARE Condition: Good Instructions (If sedation given, give patient instructions): Acute Nausea and Vomiting (ED) Is patient prescribed a controlled substance at d/c from ED?: No Referrals: None,Stated [Primary Care Provider] - 1-2 days
[2023-12-03 22:13] LABS: Basophils % (A) 0 %; Eosinophils % (A) 1 %; HCT 33.7 % (34.0-46.0); HGB 11.1 gm/dL (11.4-16.0); Lymphocytes # (A) 1.7 k/uL (1.0-4.8); Lymphocytes % (A) 30 %; MCH 30.1 pg (25.0-35.0); MCHC 32.9 g/dL (31.0-37.0); MCV 91.5 fL (80.0-100.0); Mean Platelet Volume 8.1; Monocytes # (A) 0.3 k/uL (0-1.0); Monocytes % (A) 6 %; Neutrophils # (A) 3.6 k/uL (1.3-7.7); Neutrophils % (A) 63 %; Platelet Count 190 k/uL (150-450); RBC 3.68 m/uL (3.80-5.40); RDW 12.8 % (11.5-15.5); WBC 5.7 k/uL (3.8-10.6)
[2023-12-03] MEDS: SODIUM CHLORIDE 0.9% 1,000 ML IV ONE (22:19)
[2023-12-03] MEDS: METOCLOPRAMIDE 5 MG/ML 2 ML VIAL IVP STA (22:20)
[2023-12-03 22:25] LABS: ALT 17 U/L (4-34); AST 21 U/L (14-36); African American GFR (CKD) 61 (>60 ml/min/1.73 sqM); Albumin 3.9 g/dL (3.5-5.0); Alkaline Phosphatase 110 U/L (38-126); Amylase 57 U/L (30-110); Anion Gap 4 mmol/L; Blood Urea Nitrogen 18 mg/dL (7-17); Calcium 9.3 mg/dL (8.4-10.2); Carbon Dioxide 30 mmol/L (22-30); Chloride 106 mmol/L (98-107); Glucose 90 mg/dL (74-99); Lipase 51 U/L (23-300); Non-African American GFR(CKD) 53 (>60 ml/min/1.73 sqM); Potassium 3.8 mmol/L (3.5-5.1); Sodium 140 mmol/L (137-145); Total Bilirubin 0.6 mg/dL (0.2-1.3); Total Protein 6.6 g/dL (6.3-8.2)
[2023-12-03] MEDS: MORPHINE SULFATE 4 MG/ML SYRINGE IV STA (22:25)
[2023-12-03 22:44] LABS: Appearance,Urine Clear (Clear); Bilirubin,Urine Negative (Negative); Blood,Urine Negative (Negative); Color,Urine Dark Yellow; Glucose,Urine (UA) Negative (Negative); Ketones,Urine Negative (Negative); Leukocyte Esterase,Urine Negative (Negative); Mucus,Urine Rare /hpf; Nitrite,Urine Positive (Negative); Protein,Urine Negative (Negative); Specific Gravity,Urine 1.013 (1.001-1.035); Squamous Epithelial Cell,Urine 1 /hpf (0-4); Urobilinogen,Urine <2.0 mg/dL (<2.0); WBC,Urine 1 /hpf (0-5)
[2023-12-03 22:45] VITALS: RESP 18
[2023-12-04 00:27] VITALS: BP 109/65; PULSE 78
== END 2023-12-04 | disposition home or self-care (01) ==
LOC: EC 20:36
DX: R11.2 Nausea with vomiting, unspecified (principal); Z88.0 Allergy status to penicillin; Z88.1 Allergy status to other antibiotic agents; Z88.2 Allergy status to sulfonamides; Z88.8 Allergy status to other drugs, medicaments and biological substances; Z90.49 Acquired absence of other specified parts of digestive tract
CPT/HCPCS: 36415; 80053; 82150; 83605; 83690; 85025; 86140; 81001; 99284; 96374; 96375; 96361 ×2; J2270; J2765

== ENCOUNTER 2023-12-07 08:35 | Emergency (ER) | payer OTHER ==
[2023-12-07 08:45] VITALS: RESP 18
--- NOTE | 2023-12-07 08:57 | ED ---
Female Urogenital HPI - General Chief complaint: Urogenital Stated complaint: back pain Time Seen by Provider: 12/07/23 08:40 Source: patient, family, RN notes reviewed Mode of arrival: ambulatory Limitations: no limitations - History of Present Illness Initial comments: This is a 33-year-old female who presents to the emergency department for urinary symptoms. Patient states that she was at [facility] 5 days ago and diagnosed with a UTI. She initially only had urinary urgency and pressure. She was started on ciprofloxacin, which she just finished. However, states that symptoms are not getting any better and almost seem to be getting worse. She is also now having burning with urination. Additionally, patient is supposed to have surgery on 12/[address] Bahena for lysis of adhesions and has had to discontinue her pain medication including Toradol, naproxen, and Norflex. States she has been off of these for 24 hours, which she believes is a contributing factor to her pain. - Related Data Home Medications Medication Instructions Recorded Confirmed Omeprazole 20 mg PO BID 03/07/22 03/17/23 Albuterol Inhaler [Ventolin Hfa 2 puff INHALATION RT-Q6H PRN 02/13/23 03/17/23 Inhaler] Escitalopram [Lexapro] 10 mg PO HS 03/17/23 03/17/23 Meloxicam [Mobic] 7.5 mg PO BID 03/17/23 03/17/23 Ondansetron Odt [Zofran Odt] 4 mg PO Q12HR PRN 03/17/23 03/17/23 Orphenadrine Citrate [Orphenadrine 100 mg PO BID 03/17/23 03/17/23 Citrate ER] Previous Rx's Medication Instructions Recorded Cyclobenzaprine [Flexeril] 5 mg PO TID PRN #15 tablet 05/27/23 Ondansetron Odt [Zofran Odt] 4 mg PO Q8HR PRN #20 tab 11/06/23 Ketorolac [Toradol] 10 mg PO Q6HR PRN #15 tab 11/23/23 Ondansetron Odt [Zofran Odt] 4 mg PO Q8HR PRN #20 tab 11/23/23 Ondansetron Odt [Zofran ODT] 4 mg PO Q8HR PRN #10 tab 12/03/23 Fosfomycin Tromethamine 3 gm PO ONCE #1 packet 12/07/23 Allergies Allergy/AdvReac Type Severity Reaction Status Date / Time sulfamethoxazole Allergy Severe Anaphylaxis Verified 12/07/23 08:40 [From Bactrim] trimethoprim [From Bactrim] Allergy Severe Anaphylaxis Verified 12/07/23 08:40 adhesive tape Allergy Rash/Hives Verified 12/07/23 08:40 aloe vera Allergy Rash/Hives Verified 12/07/23 08:40 azithromycin Allergy Rash/Hives Verified 12/07/23 08:40 cephalexin Allergy Rash/Hives Verified 12/07/23 08:40 metronidazole [From Flagyl] Allergy Rash/Hives Verified 12/07/23 08:40 Penicillins Allergy Rash/Hives Verified 12/07/23 08:40 alprazolam [From Xanax] AdvReac MAKES Verified 12/07/23 08:40 PARANOID dicyclomine [From Bentyl] AdvReac constipatio Verified 12/07/23 08:40 n Review of Systems ROS Statement: Those systems with pertinent positive or pertinent negative responses have been documented in the HPI. ROS Other: All systems not noted in ROS Statement are negative. Past Medical History Past Medical History: Blood Disorder, GERD/Reflux Additional Past Medical History / Comment(s): Endometriosis, polycystic ovarian syndrome. IRON DEFICIENCY ANEMIA. Stomach Ulcer. ovarian cyst History of Any Multi-Drug Resistant Organisms: None Reported Past Surgical History: Ablation, Section, Cholecystectomy, Hernia Repair, Hysterectomy, Tubal Ligation, Uterine Ablation Additional Past Surgical History / Comment(s): Laparoscopy X2, Section X3. Right ovary and right tube removed - 2019. cyst removed from chest. AUG 2020 - ADHESION REMOVAL FROM PAST . Vaginal. pelvic biopsy 05/11. PCOS Past Anesthesia/Blood Transfusion Reactions: No Reported Reaction Past Psychological History: Anxiety, Depression Smoking Status: Never smoker Past Alcohol Use History: Rare Past Drug Use History: None Reported - Past Family History Mother Family Medical History: Hyperlipidemia Additional Family Medical History / Comment(s): Depression and anxiety. General Exam Limitations: no limitations General appearance: alert, in no apparent distress Head exam: Present: atraumatic, normocephalic, normal inspection Respiratory exam: Present: normal lung sounds bilaterally. Absent: respiratory distress, wheezes, rales, rhonchi, stridor Cardiovascular Exam: Present: regular rate, normal rhythm, normal heart sounds. Absent: systolic murmur, diastolic murmur, rubs, gallop, clicks GI/Abdominal exam: Present: soft, tenderness (Lower abdomen), normal bowel sounds. Absent: distended Neurological exam: Present: alert, oriented X3, CN II-XII intact Psychiatric exam: Present: normal affect, normal mood Skin exam: Present: warm, dry, intact, normal color. Absent: rash Course Vital Signs 12/07/23 12/07/23 08:36 11:00 Temperature 98 F 98.2 F Pulse Rate 94 90 Respiratory 18 18 Rate Blood Pressure 142/103 107/76 O2 Sat by Pulse 98 97 Oximetry Medical Decision Making - Medical Decision Making This is a 33 year old female who presents to the emergency department for abdominal pain and urinary symptoms. Was pt. sent in by a medical professional or institution? @ -No Did you speak to anyone other than the patient for history? @ -No Did you review nursing and triage notes? @ -Yes, and I agree, it is accurate with regards to the patient's symptoms. Were old charts reviewed? @ -Urine culture from 12/01/23 from [facility] which grew E. coli. This was shown to be susceptible to all antibiotics listed. Differential Diagnosis? @ -Differential Abdominal Pain Women: Appendicitis, Cholecystitis, diverticulosis, ischemic bowel, pancreatitis, hepatitis, UTI, gastroenteritis, AAA, incarcerated hernia, bowel obstruction, constipation, inflammatory bowel, hepatitis, peptic ulcer disease, splenic infarction, perforated viscus, vulvitis, ovarian torsion, PID, kidney stone, placenta abruption, this is not meant to be an all-inclusive list EKG interpreted by me (3pts min.)? @ -Not obtained X-rays interpreted by me (1pt min.)? @ -Not obtained CT interpreted by me (1pt min.)? @ -Not obtained U/S interpreted by me (1pt. min.)? @ -Not obtained What testing was considered but not performed? (CT, X-rays, U/S, labs)? Why? @ -None What meds were considered but not given? Why? @ -None Did you discuss the management of the patient with other professionals? @ -No Did you reconcile home meds? @ -No Was smoking cessation discussed for >3mins.? @ -No Was critical care preformed (if so, how long)? @ -No Were there social determinants of health that impacted care today? How? (Homelessness, low income, unemployed, alcoholism, drug addiction, tra nsportation, low edu. Level, literacy, decrease access to med. care, skilled nursing, rehab)? @ -No Was there de-escalation of care discussed even if they declined? (Discuss DNR or withdrawal of care, Hospice)? @ -No What co-morbidities impacted this encounter? (DM, HTN, Smoking, COPD, CAD, Cancer, CVA, Hep., AIDS, mental health diagnosis, sleep apnea, morbid obesity)? @ -None Was patient admitted / discharged? @ -Discharged. Urinalysis demonstrates a small amount of leukocyte estrace but was not overtly positive for infection. I did get the urine culture report from [facility] that was collected on 11/30. This grew E. coli and demonstrated that essentially all antibiotics would be effective. Patient concerned about her residual urinary symptoms. Discussed that a component of this could also be related to her being off of her pain medication. She was given a prescription for a one-time dose of fosfomycin for any potential residual infection. Symptoms treated in the emergency department and she was discharged home in stable condition. Undiagnosed new problem with uncertain prognosis? @ -None Drug Therapy requiring intensive monitoring for toxicity (Heparin, Nitro, Insulin, Cardizem)? @ -None Were any procedures done? @ -None Diagnosis/symptom? @ -Abdominal pain, back pain Acute, or Chronic, or Acute on Chronic? @ -Acute Uncomplicated (without systemic symptoms) or Complicated (systemic symptoms)? @ -Uncomplicated Side effects of treatment? @ -None Exacerbation, Progression, or Severe Exacerbation] @ -Not applicable Poses a threat to life or bodily function? @ -No Return precautions reviewed in depth, the patient is instructed to return to the emergency department with any new, worsening, or concerning symptoms. Patient verbalized understanding. This case was discussed in detail with the attending ED physician, Dr. Alejandro. Presentation, findings, and treatment plan discussed in detail as well. - Lab Data Lab Results 12/07/23 Range/Units 08:45 Urine Color Colorless Urine Appearance Clear (Clear) Urine pH 7.5 (5.0-8.0) Ur Specific [place] 1.009 (1.001-1.035) Urine Protein Negative (Negative) Urine Glucose (UA) Negative (Negative) Urine Ketones Negative (Negative) Urine Blood Negative (Negative) Urine Nitrite Negative (Negative) Urine Bilirubin Negative (Negative) Urine Urobilinogen <2.0 (<2.0) mg/dL Ur Leukocyte Esterase Trace H (Negative) Urine RBC <1 (0-5) /hpf Urine WBC 4 (0-5) /hpf Ur Squamous Epith Cells 1 (0-4) /hpf Disposition Clinical Impression: Abdominal pain, Back pain Disposition: HOME SELF-CARE Instructions (If sedation given, give patient instructions): Abdominal Pain (ED) Additional Instructions: Return to the emergency department with any new, worsening, or concerning symptoms. You will take the fosfomycin as 1 dosage for management of any res idual urinary tract infection. Follow up with your primary care provider in 1-2 days. Prescriptions: Fosfomycin Tromethamine 3 gm PO ONCE #1 packet Is patient prescribed a controlled substance at d/c from ED?: No Referrals: None,Stated [Primary Care Provider] - 1-2 days Time of Disposition: 10:15
[2023-12-07] MEDS: SODIUM CHLORIDE 0.9% 1,000 ML IV STA (09:06)
[2023-12-07] MEDS: MORPHINE SULFATE 4 MG/ML SYRINGE IVP STA (09:13)
[2023-12-07] MEDS: ONDANSETRON 4 MG/2 ML VIAL IVP STA (09:13)
[2023-12-07] MEDS: LIDOCAINE 4% PATCH TOPICAL ONE (09:14)
[2023-12-07 09:30] LABS: Appearance,Urine Clear (Clear); Bilirubin,Urine Negative (Negative); Blood,Urine Negative (Negative); Color,Urine Colorless; Glucose,Urine (UA) Negative (Negative); Ketones,Urine Negative (Negative); Leukocyte Esterase,Urine Trace (Negative); Nitrite,Urine Negative (Negative); PH, Urine 7.5 (5.0-8.0); Protein,Urine Negative (Negative); RBC,Urine <1 /hpf (0-5); Specific Gravity,Urine 1.009 (1.001-1.035); Squamous Epithelial Cell,Urine 1 /hpf (0-4); Urobilinogen,Urine <2.0 mg/dL (<2.0); WBC,Urine 4 /hpf (0-5)
[2023-12-07] MEDS: HYDROcodone/APAP 10-325MG 1 EACH TAB PO ONE (10:42)
[2023-12-07] MEDS: ACET/COD 300 MG/30 MG STARTER PACK 6 TAB BTL PO STA (10:42)
[2023-12-07] MEDS: ORPHENADRINE 30 MG/ML 2 ML VIAL IVP STA (10:43)
[2023-12-07] MEDS: HYDROmorphone 1 MG/ML 1 ML SYRINGE IVP STA (10:43)
[2023-12-07 11:13] VITALS: BP 107/76; PULSE 90; TEMP 98.2
== END 2023-12-07 11:01 | disposition home or self-care (01) ==
LOC: EC 08:35
DX: R10.30 Lower abdominal pain, unspecified (principal); M54.9 Dorsalgia, unspecified; Z88.0 Allergy status to penicillin; Z88.1 Allergy status to other antibiotic agents; Z88.2 Allergy status to sulfonamides; Z88.8 Allergy status to other drugs, medicaments and biological substances; Z91.09 Other allergy status, other than to drugs and biological substances; Z91.048 Other nonmedicinal substance allergy status
CPT/HCPCS: 81001; 99284; 96374; 96375 ×3; 96361; J2270; J2360; J2405; J1170

== ENCOUNTER 2023-12-11 19:53 | Emergency (ER) | payer OTHER ==
--- NOTE | 2023-12-11 20:29 | ED ---
Nausea/Vomiting/Diarrhea HPI - General Chief complaint: Nausea/Vomiting/Diarrhea Stated complaint: Vomiting Time Seen by Provider: 12/11/23 20:08 Source: patient Mode of arrival: ambulatory Limitations: no limitations - History of Present Illness Initial comments: 33-year-old female presenting with chief complaint of nausea vomiting and diarrhea. Patient has had nausea and vomiting for the last 2 days and diarrhea for the last day. She states that she feels that this is causing a flareup of her chronic abdominal pain. She has surgery scheduled with Dr. Bahena for this Saturday for lysis of adhesions. She states "I just want to get to my surgery". No fevers. No URI-like symptoms. No urinary symptoms. No hematochezia or melena. No hematemesis. - Related Data Home Medications Medication Instructions Recorded Confirmed No Known Home Medications 12/11/23 12/11/23 Allergies Allergy/AdvReac Type Severity Reaction Status Date / Time sulfamethoxazole Allergy Severe Anaphylaxis Verified 12/11/23 20:03 [From Bactrim] trimethoprim [From Bactrim] Allergy Severe Anaphylaxis Verified 12/11/23 20:03 adhesive tape Allergy Rash/Hives Verified 12/11/23 20:03 aloe vera Allergy Rash/Hives Verified 12/11/23 20:03 azithromycin Allergy Rash/Hives Verified 12/11/23 20:03 cephalexin Allergy Rash/Hives Verified 12/11/23 20:03 metronidazole [From Flagyl] Allergy Rash/Hives Verified 12/11/23 20:03 Penicillins Allergy Rash/Hives Verified 12/11/23 20:03 alprazolam [From Xanax] AdvReac MAKES Verified 12/11/23 20:03 PARANOID dicyclomine [From Bentyl] AdvReac constipatio Verified 12/11/23 20:03 n Review of Systems ROS Statement: Those systems with pertinent positive or pertinent negative responses have been documented in the HPI. ROS Other: All systems not noted in ROS Statement are negative. Past Medical History Past Medical History: Blood Disorder, GERD/Reflux Additional Past Medical History / Comment(s): Endometriosis, polycystic ovarian syndrome. IRON DEFICIENCY ANEMIA. Stomach Ulcer. Hx ovarian cyst. History of Any Multi-Drug Resistant Organisms: None Reported Past Surgical History: Ablation, Section, Cholecystectomy, Hernia Repair, Hysterectomy, Tubal Ligation, Uterine Ablation Additional Past Surgical History / Comment(s): Laparoscopy X2, Section X3, right ovary and right tube removed, then total hysterectomy including left ovary and left fallopian tube, cyst removed from chest, ADHESION REMOVAL FROM PAST CSECTION, vaginal/pelvic biopsy. Past Anesthesia/Blood Transfusion Reactions: No Reported Reaction Past Psychological History: Anxiety, Depression Smoking Status: Never smoker Past Alcohol Use History: Rare Past Drug Use History: None Reported - Past Family History Mother Family Medical History: Deep Vein Thrombosis (DVT), Hyperlipidemia Additional Family Medical History / Comment(s): Depression and anxiety. DVT to arm after surgery. General Exam Limitations: no limitations General appearance: alert, in no apparent distress Head exam: Present: atraumatic, normocephalic Eye exam: Present: normal appearance, EOMI Neck exam: Present: normal inspection Respiratory exam: Present: normal lung sounds bilaterally. Absent: respiratory distress, wheezes, rales, rhonchi, stridor Cardiovascular Exam: Present: regular rate, normal rhythm, normal heart sounds. Absent: systolic murmur, diastolic murmur, rubs, gallop, clicks GI/Abdominal exam: Present: soft, tenderness. Absent: distended, guarding, rebound, rigid Neurological exam: Present: alert, oriented X3 Psychiatric exam: Present: normal affect, normal mood Skin exam: Present: warm, dry Course Vital Signs 12/11/23 12/11/23 12/11/23 20:03 21:02 21:58 Temperature 98.8 F 98.6 F Pulse Rate 108 H 71 71 Respiratory 19 19 18 Rate Blood Pressure 144/80 116/79 121/81 O2 Sat by Pulse 97 99 99 Oximetry Medical Decision Making - Medical Decision Making Was pt. sent in by a medical professional or institution (, PA, WATER RECLAMATION SYSTEMS OPERATOR, urgent care, hospital, or intermediate...) When possible be specific @ -No Did you speak to anyone other than the patient for history (EMS, parent, family, police, friend...)? What history was obtained from this source @ -No Did you review nursing and triage notes (agree or disagree)? Why? @ -I reviewed and agree with nursing and triage notes Were old charts reviewed (outside hosp., previous admission, EMS record, old EKG, old radiological studies, urgent care reports/EKG's, intermediate records)? Report findings @ -No old charts were reviewed Differential Diagnosis (chest pain, altered mental status, abdominal pain women, abdominal pain men, vaginal bleeding, weakness, fever, dyspnea, syncope, headache, dizziness, GI bleed, back pain, seizure, CVA, palpatations, mental health, musculoskeletal)? @ -[facility] Differential Abdominal Pain Women: Appendicitis, Cholecystitis, diverticulosis, ischemic bowel, pancreatitis, hepatitis, UTI, gastroenteritis, AAA, incarcerated hernia, bowel obstruction, constipation, inflammatory bowel, hepatitis, peptic ulcer disease, splenic infarction, perforated viscus, vulvitis, ovarian torsion, PID, kidney stone, placenta abruption... This is not meant to be an all-inclusive list EKG interpreted by me (3pts min.). @ -As above X-rays interpreted by me (1pt min.). @ -None done CT interpreted by me (1pt min.). @ -None done U/S interpreted by me (1pt. min.). @ -None done What testing was considered but not performed or refused? (CT, X-rays, U/S, labs)? Why? @ -None What meds were considered but not given or refused? Why? @ -None Did you discuss the management of the patient with other professionals (professionals i.e. , PA, WATER RECLAMATION SYSTEMS OPERATOR, lab, RT, psych nurse, social service agency director, evening sitter, teacher, staff air tactical officer, disease case manager)? Give summary @ -No Was smoking cessation discussed for >3mins.? @ -No Was critical care preformed (if so, how long)? @ -No Were there social determinants of health that impacted care today? How? (Homelessness, low income, unemployed, alcoholism, drug addiction, transportation, low edu. Level, literacy, decrease access to med. care, care home, rehab)? @ -No Was there de-escalation of care discussed even if they declined (Discuss DNR or withdrawal of care, Hospice)? DNR status @ -No What co-morbidities impacted this encounter? (DM, HTN, Smoking, COPD, CAD, Cancer, CVA, ARF, Chemo, Hep., AIDS, mental health diagnosis, sleep apnea, morbid obesity)? @ -None Was patient admitted / discharged? Hospital course, mention meds given and route, prescriptions, significant lab abnormalities, going to OR and other pertinent info. @ -33-year-old female presenting with chief complaint of nausea vomiting and diarrhea. This is causing a flareup of her chronic abdominal pain. History and physical exam are conducted. Lab work requires no action. Patient reports improvement in her symptoms after IV fluids pain and nausea medications. She would like to be discharged home. She will follow-up with her surgeon at her scheduled surgery on Saturday for lysis of adhesions. Discharged home. Follow-up with PCP. Report back to ER with any new or worsening symptoms. Discussed return parameters and answered all questions. Patient conveyed verbal understanding and agreed to the plan. I discussed this case in detail with my attending Dr. Disla Undiagnosed new problem with uncertain prognosis? @ -No Drug Therapy requiring intensive monitoring for toxicity (Heparin, Nitro, Insulin, Cardizem)? @ -No Were any procedures done? @ -No Diagnosis/symptom? @ -Nausea vomiting diarrhea Acute, or Chronic, or Acute on Chronic? @ -Acute Uncomplicated (without systemic symptoms) or Complicated (systemic symptoms)? @ -Uncomplicated Side effects of treatment? @ -No Exacerbation, Progression, or Severe Exacerbation? @ -No Poses a threat to life or bodily function? How? (Chest pain, [place], [place], pneumonia, PE, COPD, DKA, ARF, appy, cholecystitis, CVA, Diverticulitis, Homicidal, Suicidal, threat to staff... and all critical care pts) @ -Low likelihood - Lab Data Result diagrams: 12/11/23 20:49 12/11/23 20:49 Lab Results 12/11/23 12/11/23 12/11/23 Range/Units 20:49 20:49 20:49 WBC 5.2 (3.8-10.6) k/uL RBC 4.09 (3.80-5.40) m/uL Hgb 12.5 (11.4-16.0) gm/dL Hct 37.7 (34.0-46.0) % MCV 92.1 (80.0-100.0) fL MCH 30.5 (25.0-35.0) pg MCHC 33.1 (31.0-37.0) g/dL RDW 13.1 (11.5-15.5) % Plt Count 190 (150-450) k/uL MPV 8.2 Neutrophils % 68 % Lymphocytes % 26 % Monocytes % 4 % Eosinophils % 1 % Basophils % 1 % Neutrophils # 3.5 (1.3-7.7) k/uL Lymphocytes # 1.4 (1.0-4.8) k/uL Monocytes # 0.2 (0-1.0) k/uL Eosinophils # 0.0 (0-0.7) k/uL Basophils # 0.0 (0-0.2) k/uL Sodium 140 (137-145) mmol/L Potassium 4.0 (3.5-5.1) mmol/L Chloride 105 (98-107) mmol/L Carbon Dioxide 25 (22-30) mmol/L Anion Gap 10 mmol/L BUN 15 (7-17) mg/dL Creatinine 1.19 H (0.52-1.04) mg/dL Est GFR (CKD-EPI)AfAm 69 (>60 ml/min/1.73 sqM) Est GFR (CKD-EPI)NonAf 60 (>60 ml/min/1.73 sqM) Glucose 93 (74-99) mg/dL Calcium 9.9 (8.4-10.2) mg/dL Total Bilirubin 0.8 (0.2-1.3) mg/dL AST 29 (14-36) U/L ALT 24 (4-34) U/L Alkaline Phosphatase 110 (38-126) U/L Total Protein 7.7 (6.3-8.2) g/dL Albumin 4.7 (3.5-5.0) g/dL Amylase 54 (30-110) U/L Lipase 36 (23-300) U/L Urine Color Colorless Urine Appearance Clear (Clear) Urine pH 6.0 (5.0-8.0) Ur Specific [place] 1.016 (1.001-1.035) Urine Protein Negative (Negative) Urine Glucose (UA) Negative (Negative) Urine Ketones Negative (Negative) Urine Blood Negative (Negative) Urine Nitrite Negative (Negative) Urine Bilirubin Negative (Negative) Urine Urobilinogen <2.0 (<2.0) mg/dL Ur Leukocyte Esterase Negative (Negative) Disposition Clinical Impression: Nausea, vomiting, and diarrhea Disposition: HOME SELF-CARE Condition: Good Instructions (If sedation given, give patient instructions): Acute Nausea and Vomiting (ED), Acute Diarrhea (ED) Additional Instructions: Follow up with PCP. Report back to ER with any new or worsening symptoms. Is patient prescribed a controlled substance at d/c from ED?: No Referrals: None,Stated [Primary Care Provider] - 1-2 days Time of Disposition: 21:46
[2023-12-11] MEDS: ONDANSETRON 4 MG/2 ML VIAL IVP STA (20:55)
[2023-12-11] MEDS: HYDROmorphone 0.5 MG/0.5 ML SYRINGE IVP STA (20:55)
[2023-12-11] MEDS: SODIUM CHLORIDE 0.9% 1,000 ML IV STA (20:56)
[2023-12-11 20:58] LABS: Appearance,Urine Clear (Clear); Bilirubin,Urine Negative (Negative); Blood,Urine Negative (Negative); Color,Urine Colorless; Glucose,Urine (UA) Negative (Negative); Ketones,Urine Negative (Negative); Leukocyte Esterase,Urine Negative (Negative); Nitrite,Urine Negative (Negative); Protein,Urine Negative (Negative); Specific Gravity,Urine 1.016 (1.001-1.035); Urobilinogen,Urine <2.0 mg/dL (<2.0)
[2023-12-11 20:59] LABS: Basophils % (A) 1 %; Eosinophils % (A) 1 %; HCT 37.7 % (34.0-46.0); HGB 12.5 gm/dL (11.4-16.0); Lymphocytes # (A) 1.4 k/uL (1.0-4.8); Lymphocytes % (A) 26 %; MCH 30.5 pg (25.0-35.0); MCHC 33.1 g/dL (31.0-37.0); MCV 92.1 fL (80.0-100.0); Mean Platelet Volume 8.2; Monocytes # (A) 0.2 k/uL (0-1.0); Monocytes % (A) 4 %; Neutrophils # (A) 3.5 k/uL (1.3-7.7); Neutrophils % (A) 68 %; Platelet Count 190 k/uL (150-450); RBC 4.09 m/uL (3.80-5.40); RDW 13.1 % (11.5-15.5); WBC 5.2 k/uL (3.8-10.6)
[2023-12-11 21:10] VITALS: PULSE 71
[2023-12-11 21:15] LABS: ALT 24 U/L (4-34); AST 29 U/L (14-36); African American GFR (CKD) 69 (>60 ml/min/1.73 sqM); Albumin 4.7 g/dL (3.5-5.0); Alkaline Phosphatase 110 U/L (38-126); Amylase 54 U/L (30-110); Anion Gap 10 mmol/L; Blood Urea Nitrogen 15 mg/dL (7-17); Calcium 9.9 mg/dL (8.4-10.2); Carbon Dioxide 25 mmol/L (22-30); Chloride 105 mmol/L (98-107); Glucose 93 mg/dL (74-99); Lipase 36 U/L (23-300); Non-African American GFR(CKD) 60 (>60 ml/min/1.73 sqM); Sodium 140 mmol/L (137-145); Total Bilirubin 0.8 mg/dL (0.2-1.3); Total Protein 7.7 g/dL (6.3-8.2)
[2023-12-11] MEDS: HYDROcodone/APAP 5-325MG 1 EACH TAB PO STA (21:57)
[2023-12-11 22:48] VITALS: BP 121/81; RESP 18; TEMP 98.6
== END 2023-12-11 22:02 | disposition home or self-care (01) ==
LOC: EC 19:53
DX: R11.2 Nausea with vomiting, unspecified (principal); R19.7 Diarrhea, unspecified; Z88.2 Allergy status to sulfonamides; Z88.1 Allergy status to other antibiotic agents; Z91.09 Other allergy status, other than to drugs and biological substances; Z88.6 Allergy status to analgesic agent; Z88.0 Allergy status to penicillin; Z88.8 Allergy status to other drugs, medicaments and biological substances
CPT/HCPCS: 99284; 96374; 96375; 96361; 36415; 80053; 82150; 83690; 85025; 81003; J2405; J1170

== ENCOUNTER 2023-12-14 14:33 | Emergency (ER) | payer OTHER ==
--- NOTE | 2023-12-14 15:52 | ED ---
General Adult HPI - General Chief complaint: Abdominal Pain Stated complaint: Post-op pain Time Seen by Provider: 12/14/23 15:23 Source: patient, RN notes reviewed, old records reviewed Mode of arrival: ambulatory Limitations: no limitations - History of Present Illness Initial comments: 33-year-old female presenting for abdominal pain after lysis of adhesions, laparoscopy which was performed yesterday. Patient is here for pain management and states that she was not able to get her oxycodone filled and that she has to receive her narcotic prescriptions at [facility] pharmacy. She states that [facility] at [facility] would not fill this prescription. She states that she is able to get the medication at [facility] pharmacy. She has no other compl aints, no fever, she believes the pain will be managed with this prescription. - Related Data Previous Rx's Medication Instructions Recorded Acetaminophen Tab [Tylenol] 650 mg PO Q6H #30 tab 12/13/23 Docusate [Colace] 100 mg PO BID #20 capsule 12/13/23 Ibuprofen [Motrin] 600 mg PO Q6HR PRN #40 tab 12/13/23 oxyCODONE HCL/ACETAMINOPHEN 1 tab PO Q6HR PRN 3 Days #12 tab 12/14/23 [Percocet 5-325 mg] Allergies Allergy/AdvReac Type Severity Reaction Status Date / Time sulfamethoxazole Allergy Severe Anaphylaxis Verified 12/14/23 14:41 [From Bactrim] trimethoprim [From Bactrim] Allergy Severe Anaphylaxis Verified 12/14/23 14:41 adhesive tape Allergy Rash/Hives Verified 12/14/23 14:41 aloe vera Allergy Rash/Hives Verified 12/14/23 14:41 azithromycin Allergy Rash/Hives Verified 12/14/23 14:41 cephalexin Allergy Rash/Hives Verified 12/14/23 14:41 metronidazole [From Flagyl] Allergy Rash/Hives Verified 12/14/23 14:41 Penicillins Allergy Rash/Hives Verified 12/14/23 14:41 alprazolam [From Xanax] AdvReac MAKES Verified 12/14/23 14:41 PARANOID dicyclomine [From Bentyl] AdvReac constipatio Verified 12/14/23 14:41 n Review of Systems ROS Statement: Those systems with pertinent positive or pertinent negative responses have been documented in the HPI. ROS Other: All systems not noted in ROS Statement are negative. Past Medical History Past Medical History: Blood Disorder, GERD/Reflux Additional Past Medical History / Comment(s): Endometriosis, polycystic ovarian syndrome. IRON DEFICIENCY ANEMIA. Stomach Ulcer. Hx ovarian cyst. History of Any Multi-Drug Resistant Organisms: None Reported Past Surgical History: Ablation, Section, Cholecystectomy, Hernia Repair, Hysterectomy, Tubal Ligation, Uterine Ablation Additional Past Surgical History / Comment(s): Laparoscopy X2, Section X3, right ovary and right tube removed, then total hysterectomy including left ovary and left fallopian tube, cyst removed from chest, ADHESION REMOVAL FROM PAST CSECTION, vaginal/pelvic biopsy. Scar tissure removal abdomen L upper lower Past Anesthesia/Blood Transfusion Reactions: No Reported Reaction Past Psychological History: Anxiety, Depression Smoking Status: Never smoker Past Alcohol Use History: Rare Past Drug Use History: None Reported - Past Family History Mother Family Medical History: Deep Vein Thrombosis (DVT), Hyperlipidemia Additional Family Medical History / Comment(s): Depression and anxiety. DVT to arm after surgery. General Exam Limitations: no limitations General appearance: alert, in no apparent distress Head exam: Present: atraumatic, normocephalic Eye exam: Present: normal appearance, PERRL Neck exam: Present: normal inspection. Absent: tenderness, meningismus Respiratory exam: Present: normal lung sounds bilaterally. Absent: respiratory distress, wheezes Cardiovascular Exam: Present: regular rate, normal rhythm GI/Abdominal exam: Present: soft, tenderness (Very minor tenderness, no rebound or guarding, incisions are clean, no erythema, no hemorrhage). Absent: distended Extremities exam: Present: normal inspection, normal capillary refill Course Vital Signs 12/14/23 14:33 Temperature 98.6 F Pulse Rate 96 Respiratory 16 Rate Blood Pressure 124/87 O2 Sat by Pulse 98 Oximetry Medical Decision Making - Medical Decision Making Was pt. sent in by a medical professional or institution (, PA, [facility], urgent care, hospital, or [facility]...) When possible be specific @ -No Did you speak to anyone other than the patient for history (EMS, parent, family, police, friend...)? What history was obtained from this source @ -No Did you review nursing and triage notes (agree or disagree)? Why? @ -I reviewed and agree with nursing and triage notes Were old charts reviewed (outside hosp., previous admission, EMS record, old EKG, old radiological studies, urgent care reports/EKG's, [facility] records)? Report findings @ -No old charts were reviewed Differential Abdominal Pain Women: Appendicitis, Cholecystitis, diverticulosis, ischemic bowel, pancreatitis, hepatitis, UTI, gastroenteritis, AAA, incarcerated hernia, bowel obstruction, constipation, inflammatory bowel, hepatitis, peptic ulcer disease, splenic infarction, perforated viscus, vulvitis, ovarian torsion, PID, kidney stone, placenta abruption, this is not meant to be an all-inclusive list EKG interpreted by me (3pts min.). @ -As above X-rays interpreted by me (1pt min.). @ -None done CT interpreted by me (1pt min.). @ -None done U/S interpreted by me (1pt. min.). @ -None done What testing was considered but not performed or refused? (CT, X-rays, U/S, labs)? Why? @ -None What meds were considered but not given or refused? Why? @ -None Did you discuss the management of the patient with other professionals (professionals i.e. , PA, [facility], lab, RT, psych nurse, social services analyst, silk finisher, teacher, personnel officer, caser)? Give summary @ -No Was smoking cessation discussed for >3mins.? @ -No Was critical care preformed (if so, how long)? @ -No Were there social determinants of health that impacted care today? How? (Homelessness, low income, unemployed, alcoholism, drug addiction, transportation, low edu. Level, literacy, decrease access to med. care, long term, rehab)? @ -No Was there de-escalation of care discussed even if they declined (Discuss DNR or withdrawal of care, Hospice)? DNR status @ -No What co-morbidities impacted this encounter? (DM, HTN, Smoking, COPD, CAD, Cancer, CVA, ARF, Chemo, Hep., AIDS, mental health diagnosis, sleep apnea, morbid obesity)? @ -None Was patient admitted / discharged? Hospital course, mention meds given and route, prescriptions, significant lab abnormalities, going to OR and other pert inent info. @ -[Patient presenting with medication refill request. She does complain of abdominal pain but states this is tolerable. She is requesting the medication that she was unable to get filled. I will prescribe 2 days of Percocet. Patient can follow-up with her surgeon for further pain management. Undiagnosed new problem with uncertain prognosis? @ -No Drug Therapy requiring intensive monitoring for toxicity (Heparin, Nitro, Insulin, Cardizem)? @ -No Were any procedures done? @ -No Diagnosis/symptom? @ -Postoperative pain Acute, or Chronic, or Acute on Chronic? @ -Acute on chronic Uncomplicated (without systemic symptoms) or Complicated (systemic symptoms)? @ -Default Side effects of treatment? @ -No Exacerbation, Progression, or Severe Exacerbation? @ -No Poses a threat to life or bodily function? How? (Chest pain, [place], [place], pneumonia, PE, COPD, DKA, ARF, appy, cholecystitis, CVA, Diverticulitis, Homicidal, Suicidal, threat to staff... and all critical care pts) @ -No Disposition Clinical Impression: Abdominal pain Disposition: HOME SELF-CARE Condition: Fair Instructions (If sedation given, give patient instructions): Abdominal Pain (ED) Prescriptions: oxyCODONE HCL/ACETAMINOPHEN [Percocet 5-325 mg] 1 tab PO Q6HR PRN 3 Days #12 tab PRN Reason: Pain Is patient prescribed a controlled substance at d/c from ED?: No Referrals: None,Stated [Primary Care Provider] - 1-2 days Ryan Bahena MD [STAFF PHYSICIAN] - 1-2 days Time of Disposition: 15:51
[2023-12-14 16:38] VITALS: BP 111/66; PULSE 80; RESP 18; TEMP 97.7
== END 2023-12-14 16:19 | disposition home or self-care (01) ==
LOC: EC 14:33
DX: G89.18 Other acute postprocedural pain (principal); R10.9 Unspecified abdominal pain; Z88.2 Allergy status to sulfonamides; Z88.1 Allergy status to other antibiotic agents; Z91.09 Other allergy status, other than to drugs and biological substances; Z91.010 Allergy to peanuts; Z88.0 Allergy status to penicillin; Z88.8 Allergy status to other drugs, medicaments and biological substances
CPT/HCPCS: 99283

== ENCOUNTER 2023-12-17 18:47 | Emergency (ER) | payer OTHER ==
--- NOTE | 2023-12-17 19:04 | ED ---
Abdominal Pain HPI - General Source: patient, RN notes reviewed Mode of arrival: ambulatory Limitations: no limitations <Kim Fagan - Last Filed: 12/17/23 19:02> - History of Present Illness -: hour(s) Location: [facility] Radiation: none Migration to: no migration Severity: severe Quality: aching Consistency: constant Improves With: nothing Worsens With: nothing Associated Symptoms: vomiting <Donal Carpio - Last Filed: 12/17/23 23:40> - General Stated Complaint: Post Op Abd Pain Time Seen by Provider: 12/17/23 19:02 - History of Present Illness Initial Comments: Quick note: 33-year-old female presented to the ER with a chief complaint of abdominal pain. Patient underwent abdominal surgery with Dr. Bahena on Saturday for lysis of adhesions. She reports earlier today her son had a "meltdown" and hit her in her stomach multiple times. She states that she is having extreme pain at this time. She does report 1 episode of emesis prior to arrival. Reports normal bowel movements. (Kim Fagan) As above, the patient is now postop day #4 after lysis of adhesions. She states that her child was having a tantrum and struck her in the abdomen with a shoe. She states that hit the left upper quadrant between 2 of her incisions. Since that time she has been having pain. She did have nausea and vomiting. (Donal Carpio) - Related Data Previous Rx's Medication Instructions Recorded Acetaminophen Tab [Tylenol] 650 mg PO Q6H #30 tab 12/13/23 Docusate [Colace] 100 mg PO BID #20 capsule 12/13/23 Ibuprofen [Motrin] 600 mg PO Q6HR PRN #40 tab 12/13/23 oxyCODONE HCL/ACETAMINOPHEN 1 tab PO Q6HR PRN 3 Days #12 tab 12/14/23 [Percocet 5-325 mg] Allergies Allergy/AdvReac Type Severity Reaction Status Date / Time sulfamethoxazole Allergy Severe Anaphylaxis Verified 12/17/23 19:03 [From Bactrim] trimethoprim [From Bactrim] Allergy Severe Anaphylaxis Verified 12/17/23 19:03 adhesive tape Allergy Rash/Hives Verified 12/17/23 19:03 aloe vera Allergy Rash/Hives Verified 12/17/23 19:03 azithromycin Allergy Rash/Hives Verified 12/17/23 19:03 cephalexin Allergy Rash/Hives Verified 12/17/23 19:03 metronidazole [From Flagyl] Allergy Rash/Hives Verified 12/17/23 19:03 Penicillins Allergy Rash/Hives Verified 12/17/23 19:03 alprazolam [From Xanax] AdvReac MAKES Verified 12/17/23 19:03 PARANOID dicyclomine [From Bentyl] AdvReac constipatio Verified 12/17/23 19:03 n Review of Systems ROS Other: All systems not noted in ROS Statement are negative. <Kim Fagan - Last Filed: 12/17/23 19:02> ROS Other: All systems not noted in ROS Statement are negative. Constitutional: Denies: fever, chills, weakness Respiratory: Denies: cough, dyspnea Cardiovascular: Denies: chest pain, palpitations, edema Gastrointestinal: Reports: abdominal pain, nausea, vomiting. Denies: diarrhea, constipation, hematemesis, melena, hematochezia Genitourinary: Denies: dysuria, hematuria Musculoskeletal: Denies: back pain Skin: Denies: rash Neurological: Denies: headache, weakness, numbness <Donal Carpio - Last Filed: 12/17/23 23:40> ROS Statement: Those systems with pertinent positive or pertinent negative responses have been documented in the HPI. Past Medical History Past Medical History: Blood Disorder, GERD/Reflux Additional Past Medical History / Comment(s): Endometriosis, polycystic ovarian syndrome. IRON DEFICIENCY ANEMIA. Stomach Ulcer. Hx ovarian cyst. History of Any Multi-Drug Resistant Organisms: None Reported Past Surgical History: Ablation, Section, Cholecystectomy, Hernia Repair, Hysterectomy, Tubal Ligation, Uterine Ablation Additional Past Surgical History / Comment(s): Laparoscopy X2, Section X3, right ovary and right tube removed, then total hysterectomy including left ovary and left fallopian tube, cyst removed from chest, ADHESION REMOVAL FROM PAST CSECTION, vaginal/pelvic biopsy. Scar tissure removal abdomen L upper lower Past Anesthesia/Blood Transfusion Reactions: No Reported Reaction Past Psychological History: Anxiety, Depression Smoking Status: Never smoker Past Alcohol Use History: Rare Past Drug Use History: None Reported - Past Family History Mother Family Medical History: Deep Vein Thrombosis (DVT), Hyperlipidemia Additional Family Medical History / Comment(s): Depression and anxiety. DVT to arm after surgery. <Kim Fagan - Last Filed: 12/17/23 19:02> General Exam <Kim Fagan - Last Filed: 12/17/23 19:02> Limitations: no limitations General appearance: alert, in no apparent distress Head exam: Present: atraumatic, normocephalic Eye exam: Present: normal appearance ENT exam: Present: normal exam Neck exam: Present: normal inspection Respiratory exam: Present: normal lung sounds bilaterally. Absent: respiratory distress, wheezes, rales, rhonchi, stridor Cardiovascular Exam: Present: regular rate, normal rhythm, normal heart sounds. Absent: systolic murmur, diastolic murmur, rubs, gallop GI/Abdominal exam: Present: soft, other (The patient's surgical incisions are clean, dry, intact. No abnormal erythema warmth or drainage.). Absent: d istended, tenderness, guarding, rebound, rigid, mass Extremities exam: Present: normal inspection, normal capillary refill. Absent: pedal edema, calf tenderness Back exam: Present: normal inspection. Absent: CVA tenderness (R), CVA tenderness (L) Neurological exam: Present: alert Skin exam: Present: warm, dry, intact, normal color. Absent: rash <Donal Carpio - Last Filed: 12/17/23 23:40> - General Exam Comments Initial Comments: Visual Physical Exam Vital signs reviewed General: Well-appearing, nontoxic, no acute distress. Head: Normocephalic, atraumatic Eyes: PERRLA, EOMI ENT: Airway patent Chest: Nonlabored breathing Skin: No visual rash, normal skin tone Neuro: Alert and oriented 3 Musculoskeletal: No gross abnormalities (Kim Fagan) Course Vital Signs 12/17/23 19:01 Temperature 98.7 F Pulse Rate 89 Respiratory 18 Rate Blood Pressure 135/87 O2 Sat by Pulse 99 Oximetry Medical Decision Making <Kim Fagan - Last Filed: 12/17/23 19:02> - Lab Data Result diagrams: 12/17/23 22:48 12/17/23 22:48 <Donal Carpio - Last Filed: 12/17/23 23:40> - Medical Decision Making I performed the quick note portion of this chart. Electronically signed by Kim Fagan PA-C (Kim Fagan) - Lab Data Lab Results 12/17/23 12/17/23 Range/Units 22:48 22:48 WBC 4.5 (3.8-10.6) k/uL RBC 3.58 L (3.80-5.40) m/uL Hgb 10.9 L (11.4-16.0) gm/dL Hct 32.5 L (34.0-46.0) % MCV 90.9 (80.0-100.0) fL MCH 30.4 (25.0-35.0) pg MCHC 33.5 (31.0-37.0) g/dL RDW 13.0 (11.5-15.5) % Plt Count 183 (150-450) k/uL MPV 7.8 Neutrophils % 64 % Lymphocytes % 26 % Monocytes % 4 % Eosinophils % 4 % Basophils % 0 % Neutrophils # 2.9 (1.3-7.7) k/uL Lymphocytes # 1.2 (1.0-4.8) k/uL Monocytes # 0.2 (0-1.0) k/uL Eosinophils # 0.2 (0-0.7) k/uL Basophils # 0.0 (0-0.2) k/uL Sodium 140 (137-145) mmol/L Potassium 3.9 (3.5-5.1) mmol/L Chloride 104 (98-107) mmol/L Carbon Dioxide 31 H (22-30) mmol/L Anion Gap 5 mmol/L BUN 15 (7-17) mg/dL Creatinine 0.71 (0.52-1.04) mg/dL Est GFR (CKD-EPI)AfAm >90 (>60 ml/min/1.73 sqM) Est GFR (CKD-EPI)NonAf >90 (>60 ml/min/1.73 sqM) Glucose 96 (74-99) mg/dL Calcium 9.4 (8.4-10.2) mg/dL Total Bilirubin 0.6 (0.2-1.3) mg/dL AST 27 (14-36) U/L ALT 23 (4-34) U/L Alkaline Phosphatase 119 (38-126) U/L Total Protein 6.6 (6.3-8.2) g/dL Albumin 4.1 (3.5-5.0) g/dL Amylase 46 (30-110) U/L Lipase 26 (23-300) U/L Disposition <Kim Fagan - Last Filed: 12/17/23 19:02> Is patient prescribed a controlled substance at d/c from ED?: No <Donal Carpio - Last Filed: 12/17/23 23:40> Clinical Impression: Abdominal pain Disposition: HOME SELF-CARE Condition: Good Instructions (If sedation given, give patient instructions): Abdominal Pain (ED) Referrals: None,Stated [Primary Care Provider] - 1-2 days
[2023-12-17 19:48] VITALS: RESP 18
[2023-12-17 22:52] LABS: Basophils % (A) 0 %; Eosinophils # (A) 0.2 k/uL (0-0.7); Eosinophils % (A) 4 %; HCT 32.5 % (34.0-46.0); HGB 10.9 gm/dL (11.4-16.0); Lymphocytes # (A) 1.2 k/uL (1.0-4.8); Lymphocytes % (A) 26 %; MCH 30.4 pg (25.0-35.0); MCHC 33.5 g/dL (31.0-37.0); MCV 90.9 fL (80.0-100.0); Mean Platelet Volume 7.8; Monocytes # (A) 0.2 k/uL (0-1.0); Monocytes % (A) 4 %; Neutrophils # (A) 2.9 k/uL (1.3-7.7); Neutrophils % (A) 64 %; Platelet Count 183 k/uL (150-450); RBC 3.58 m/uL (3.80-5.40); WBC 4.5 k/uL (3.8-10.6)
[2023-12-17] MEDS: ONDANSETRON 4 MG/2 ML VIAL IVP STA (23:02)
[2023-12-17] MEDS: MORPHINE SULFATE 4 MG/ML SYRINGE IV STA (23:05)
[2023-12-17] MEDS: SODIUM CHLORIDE 0.9% 500 ML 500 ML IV STA (23:08)
[2023-12-17 23:14] LABS: ALT 23 U/L (4-34); AST 27 U/L (14-36); African American GFR (CKD) >90 (>60 ml/min/1.73 sqM); Albumin 4.1 g/dL (3.5-5.0); Alkaline Phosphatase 119 U/L (38-126); Amylase 46 U/L (30-110); Anion Gap 5 mmol/L; Blood Urea Nitrogen 15 mg/dL (7-17); Calcium 9.4 mg/dL (8.4-10.2); Carbon Dioxide 31 mmol/L (22-30); Chloride 104 mmol/L (98-107); Glucose 96 mg/dL (74-99); Lipase 26 U/L (23-300); Non-African American GFR(CKD) >90 (>60 ml/min/1.73 sqM); Potassium 3.9 mmol/L (3.5-5.1); Sodium 140 mmol/L (137-145); Total Bilirubin 0.6 mg/dL (0.2-1.3); Total Protein 6.6 g/dL (6.3-8.2)
[2023-12-18] MEDS: MORPHINE SULFATE 4 MG/ML SYRINGE IV STA (00:16)
[2023-12-18 03:20] VITALS: BP 130/84; PULSE 72; TEMP 98.5
== END 2023-12-18 00:40 | disposition home or self-care (01) ==
LOC: EC 18:47
DX: R10.12 Left upper quadrant pain (principal); Z88.0 Allergy status to penicillin; Z88.2 Allergy status to sulfonamides; Z88.1 Allergy status to other antibiotic agents; Z88.8 Allergy status to other drugs, medicaments and biological substances; Z91.09 Other allergy status, other than to drugs and biological substances
CPT/HCPCS: 99284; 96374; 96375; 96376; 36415; 80053; 82150; 83690; 85025; J2270 ×2; J2405

== ENCOUNTER 2023-12-23 08:56 | Emergency (ER) | payer OTHER ==
--- NOTE | 2023-12-23 09:16 | ED ---
Recheck HPI - General Chief Complaint: Nausea/Vomiting/Diarrhea Stated Complaint: Vomiting Time Seen by Provider: 12/23/23 09:11 Source: patient, RN notes reviewed, old records reviewed Mode of arrival: ambulatory Limitations: no limitations - History of Present Illness Initial Comments: This is a 33-year-old female to the ER as a reevaluation today. Patient notes with abdominal pain with nausea and vomiting this presented with recent abdominal surgery here at this hospital and 3 ER visits since that initial presentation. Patient has no fevers no diarrhea no vomiting of blood, no dysuria MD Complaint: other (Recheck nausea vomiting and abdominal pain) -: days(s) Returns Today for: persistent/worsening pain related to initial visit Symptoms Since Prior Visit: worsening pain Context: planned re-check Associated Symptoms: none Treatments Prior to Arrival: Given Pain Meds on, other - Related Data Home Medications Medication Instructions Recorded Confirmed Acetaminophen Tab [Tylenol] 650 mg PO Q6H PRN 12/26/23 12/26/23 Cephalexin [Keflex] 500 mg PO Q6H 12/26/23 12/26/23 Docusate [Colace] 100 mg PO BID PRN 12/26/23 12/26/23 Omeprazole 20 mg PO DAILY 12/26/23 12/26/23 Previous Rx's Medication Instructions Recorded Ibuprofen [Motrin] 600 mg PO Q6HR PRN #40 tab 12/13/23 Allergies Allergy/AdvReac Type Severity Reaction Status Date / Time sulfamethoxazole Allergy Severe Anaphylaxis Verified 12/26/23 09:47 [From Bactrim] trimethoprim [From Bactrim] Allergy Severe Anaphylaxis Verified 12/26/23 09:47 adhesive tape Allergy Rash/Hives Verified 12/26/23 09:47 aloe vera Allergy Rash/Hives Verified 12/26/23 09:47 azithromycin Allergy Rash/Hives Verified 12/26/23 09:47 cephalexin Allergy Rash/Hives Verified 12/26/23 09:47 metronidazole [From Flagyl] Allergy Rash/Hives Verified 12/26/23 09:47 Penicillins Allergy Rash/Hives Verified 12/26/23 09:47 alprazolam [From Xanax] AdvReac MAKES Verified 12/26/23 09:47 PARANOID dicyclomine [From Bentyl] AdvReac constipatio Verified 12/26/23 09:47 n Review of Systems ROS Statement: Those systems with pertinent positive or pertinent negative responses have been documented in the HPI. ROS Other: All systems not noted in ROS Statement are negative. Past Medical History Past Medical History: Blood Disorder, GERD/Reflux Additional Past Medical History / Comment(s): Endometriosis, polycystic ovarian syndrome. IRON DEFICIENCY ANEMIA. Stomach Ulcer. Hx ovarian cyst. History of Any Multi-Drug Resistant Organisms: None Reported Past Surgical History: Ablation, Section, Cholecystectomy, Hernia Repair, Hysterectomy, Tubal Ligation, Uterine Ablation Additional Past Surgical History / Comment(s): Laparoscopy X2, Section X3, right ovary and right tube removed, then total hysterectomy including left ovary and left fallopian tube, cyst removed from chest, ADHESION REMOVAL FROM PAST CSECTION, vaginal/pelvic biopsy. Scar tissure removal abdomen L upper lower Past Anesthesia/Blood Transfusion Reactions: No Reported Reaction Past Psychological History: Anxiety, Depression Smoking Status: Never smoker Past Alcohol Use History: Rare Past Drug Use History: None Reported General Exam Limitations: no limitations General appearance: alert, in no apparent distress Head exam: Present: atraumatic, normocephalic, normal inspection Eye exam: Present: normal appearance, PERRL, EOMI. Absent: scleral icterus, conjunctival injection, periorbital swelling ENT exam: Present: normal exam, mucous membranes moist Neck exam: Present: normal inspection. Absent: tenderness, meningismus, lymphadenopathy Respiratory exam: Present: normal lung sounds bilaterally. Absent: respiratory distress, wheezes, rales, rhonchi, stridor Cardiovascular Exam: Present: regular rate, normal rhythm, normal heart sounds. Absent: systolic murmur, diastolic murmur, rubs, gallop, clicks GI/Abdominal exam: Present: soft, normal bowel sounds. Absent: distended, tenderness, guarding, rebound, rigid Extremities exam: Present: normal inspection, full ROM, normal capillary refill. Absent: tenderness, pedal edema, joint swelling, calf tenderness Back exam: Present: normal inspection Neurological exam: Present: alert, oriented X3, CN II-XII intact Psychiatric exam: Present: normal affect, normal mood Skin exam: Present: warm, dry, intact, normal color. Absent: rash Course Vital Signs 12/23/23 12/23/23 08:57 11:48 Temperature 98 F 98.1 F Pulse Rate 96 73 Respiratory 18 18 Rate Blood Pressure 138/84 112/72 O2 Sat by Pulse 100 100 Oximetry - Reevaluation(s) Reevaluation #1: 12/23/23 09:35 Records reviewed Reevaluation #2: 12/23/23 09:35 Patient symptoms improving Reevaluation #3: 12/23/23 11:07 Patient informed of results and questions answered Reevaluation #4: Was pt. sent in by a medical professional or institution (, [facility], MEDICAL ONCOLOGY PHYSICIAN, urgent care, hospital, or custodial...) When possible be specific @ -no Did you speak to anyone other than the patient for history (EMS, parent, family, police, friend...)? What history was obtained from this source @ -no Did you review nursing and triage notes (agree or disagree)? Why? @ -agree Are old charts reviewed (outside hosp., previous admission, EMS record, old EKG, old radiological studies, urgent care reports/EKG's, custodial records)? Report findings @ -yes Differential Diagnosis (chest pain, altered mental status, abdominal pain women, abdominal pain men, vaginal bleeding, weakness, fever, dyspnea, syncope, headac he, dizziness, GI bleed, back pain, seizure, CVA, palpatations, mental health, musculoskeletal)? @ -prior EKG interpreted by me (3pts min.). @ -no X-rays interpreted by me (1pt min.). @ -yes negative for acute disease CT interpreted by me (1pt min.). @ -no U/S interpreted by me (1pt. min.). @ -no What testing was considered but not performed or refused? (CT, X-rays, U/S, labs)? Why? @ -none What meds were considered but not given or refused? Why? @ -none Did you discuss the management of the patient with other professionals (professionals i.e. , [facility], MEDICAL ONCOLOGY PHYSICIAN, lab, RT, psych nurse, social studies teacher, sample preparation supervisor, teacher, chief analytics officer, family service caseworker)? Give summary @ -no Was smoking cessation discussed for >3mins.? @ -no Were there social determinants of health that impacted care today? How? (Homelessness, low income, unemployed, alcoholism, drug addiction, transportation, low edu. Level, literacy, decrease access to med. care, alf, rehab)? @ -none Was there de-escalation of care discussed even if they declined (Discuss DNR or withdrawal of care, Hospice)? DNR status @ -no What co-morbidities impacted this encounter? (DM, HTN, Smoking, COPD, CAD, Cancer, CVA, ARF, Chemo, Hep., AIDS, mental health diagnosis, sleep apnea, morbid obesity)? @ -none Was patient admitted / discharged? Hospital course, mention meds given and route, prescriptions, significant lab abnormalities, going to OR and other pertinent info. @ - 33 female to the ER for evaluation of abdominal pain recheck abdominal pain postoperative abdominal pain. Pain controlled patient can be discharged home Discharge Was critical care preformed (if so, how long)? @ -no Undiagnosed new problem with uncertain prognosis? @ -no Drug Therapy requiring intensive monitoring for toxicity (Heparin, Nitro, Insulin, Cardizem)? @ -no Were any procedures done? @ -no Diagnosis/symptom? @ -Postoperative abdominal pain Acute, or Chronic, or Acute on Chronic? @ -Acute Uncomplicated (without systemic symptoms) or Complicated (systemic symptoms)? @ -Complicated Side effects of treatment? @ -no Exacerbation, Progression, or Severe Exacerbation? @ -exacerbation Poses a threat to life or bodily function? How? (Chest pain, USA, NM, pneumonia, PE, COPD, DKA, ARF, appy, cholecystitis, CVA, Diverticulitis, Homicidal, Lam icidal, threat to staff... and all critical care pts) @ -yes postoperative complication Reevaluation #5: Differential abdominal pain limited Medical Decision Making - Medical Decision Making 33 female to the ER for evaluation of abdominal pain recheck abdominal pain postoperative abdominal pain. Pain controlled patient can be discharged home - Lab Data Result diagrams: 12/23/23 09:20 12/23/23 09:20 Lab Results 12/23/23 12/23/23 12/23/23 Range/Units 09:20 09:20 09:20 WBC 5.1 (3.8-10.6) k/uL RBC 3.83 (3.80-5.40) m/uL Hgb 11.5 (11.4-16.0) gm/dL Hct 35.6 (34.0-46.0) % MCV 92.9 (80.0-100.0) fL MCH 30.0 (25.0-35.0) pg MCHC 32.2 (31.0-37.0) g/dL RDW 13.5 (11.5-15.5) % Plt Count 197 (150-450) k/uL MPV 8.1 Neutrophils % 48 % Lymphocytes % 38 % Monocytes % 6 % Eosinophils % 4 % Basophils % 0 % Neutrophils # 2.5 (1.3-7.7) k/uL Lymphocytes # 1.9 (1.0-4.8) k/uL Monocytes # 0.3 (0-1.0) k/uL Eosinophils # 0.2 (0-0.7) k/uL Basophils # 0.0 (0-0.2) k/uL Sodium 140 (137-145) mmol/L Potassium 3.9 (3.5-5.1) mmol/L Chloride 105 (98-107) mmol/L Carbon Dioxide 31 H (22-30) mmol/L Anion Gap 4 mmol/L BUN 12 (7-17) mg/dL Creatinine 0.64 (0.52-1.04) mg/dL Est GFR (CKD-EPI)AfAm >90 (>60 ml/min/1.73 sqM) Est GFR (CKD-EPI)NonAf >90 (>60 ml/min/1.73 sqM) Glucose 98 (74-99) mg/dL Calcium 9.7 (8.4-10.2) mg/dL Phosphorus 3.9 (2.5-4.5) mg/dL Magnesium 1.9 (1.6-2.3) mg/dL Total Bilirubin 0.6 (0.2-1.3) mg/dL AST 104 H (14-36) U/L ALT 134 H (4-34) U/L Alkaline Phosphatase 150 H (38-126) U/L Total Protein 6.8 (6.3-8.2) g/dL Albumin 4.2 (3.5-5.0) g/dL Lipase 45 (23-300) U/L Urine Color Colorless Urine Appearance Clear (Clear) Urine pH 6.0 (5.0-8.0) Ur Specific Goodrich 1.003 (1.001-1.035) Urine Protein Negative (Negative) Urine Glucose (UA) Negative (Negative) Urine Ketones Negative (Negative) Urine Blood Negative (Negative) Urine Nitrite Negative (Negative) Urine Bilirubin Negative (Negative) Urine Urobilinogen <2.0 (<2.0) mg/dL Ur Leukocyte Esterase Negative (Negative) Urine HCG, Qual (Not Detectd) 12/23/23 Range/Units 09:20 WBC (3.8-10.6) k/uL RBC (3.80-5.40) m/uL Hgb (11.4-16.0) gm/dL Hct (34.0-46.0) % MCV (80.0-100.0) fL MCH (25.0-35.0) pg MCHC (31.0-37.0) g/dL RDW (11.5-15.5) % Plt Count (150-450) k/uL MPV Neutrophils % % Lymphocytes % % Monocytes % % Eosinophils % % Basophils % % Neutrophils # (1.3-7.7) k/uL Lymphocytes # (1.0-4.8) k/uL Monocytes # (0-1.0) k/uL Eosinophils # (0-0.7) k/uL Basophils # (0-0.2) k/uL Sodium (137-145) mmol/L Potassium (3.5-5.1) mmol/L Chloride (98-107) mmol/L Carbon Dioxide (22-30) mmol/L Anion Gap mmol/L BUN (7-17) mg/dL Creatinine (0.52-1.04) mg/dL Est GFR (CKD-EPI)AfAm (>60 ml/min/1.73 sqM) Est GFR (CKD-EPI)NonAf (>60 ml/min/1.73 sqM) Glucose (74-99) mg/dL Calcium (8.4-10.2) mg/dL Phosphorus (2.5-4.5) mg/dL Magnesium (1.6-2.3) mg/dL Total Bilirubin (0.2-1.3) mg/dL AST (14-36) U/L ALT (4-34) U/L Alkaline Phosphatase (38-126) U/L Total Protein (6.3-8.2) g/dL Albumin (3.5-5.0) g/dL Lipase (23-300) U/L Urine Color Urine Appearance (Clear) Urine pH (5.0-8.0) Ur Specific Goodrich (1.001-1.035) Urine Protein (Negative) Urine Glucose (UA) (Negative) Urine Ketones (Negative) Urine Blood (Negative) Urine Nitrite (Negative) Urine Bilirubin (Negative) Urine Urobilinogen (<2.0) mg/dL Ur Leukocyte Esterase (Negative) Urine HCG, Qual Not Detected (Not Detectd) - Radiology Data Radiology results: report reviewed (X-ray KUB is negative for acute disease), image reviewed Disposition Clinical Impression: Dehydration, Abdominal pain, Postoperative pain Disposition: HOME SELF-CARE Condition: Fair Instructions (If sedation given, give patient instructions): Acute Nausea and Vomiting (ED), Acute Diarrhea (ED), Abdominal Pain (ED) Is patient prescribed a controlled substance at d/c from ED?: No Referrals: None,Stated [Primary Care Provider] - 1-2 days Time of Disposition: 11:00
[2023-12-23] MEDS: SODIUM CHLORIDE 0.9% 1,000 ML IV STA (09:33)
[2023-12-23] MEDS: SODIUM CHLORIDE 0.9% 500 ML 500 ML IV STA (09:33)
[2023-12-23 09:36] LABS: Basophils % (A) 0 %; Eosinophils # (A) 0.2 k/uL (0-0.7); Eosinophils % (A) 4 %; HCT 35.6 % (34.0-46.0); HGB 11.5 gm/dL (11.4-16.0); Lymphocytes # (A) 1.9 k/uL (1.0-4.8); Lymphocytes % (A) 38 %; MCHC 32.2 g/dL (31.0-37.0); MCV 92.9 fL (80.0-100.0); Mean Platelet Volume 8.1; Monocytes # (A) 0.3 k/uL (0-1.0); Monocytes % (A) 6 %; Neutrophils # (A) 2.5 k/uL (1.3-7.7); Neutrophils % (A) 48 %; Platelet Count 197 k/uL (150-450); RBC 3.83 m/uL (3.80-5.40); RDW 13.5 % (11.5-15.5); WBC 5.1 k/uL (3.8-10.6)
[2023-12-23] MEDS: ONDANSETRON 4 MG/2 ML VIAL IVP STA (09:51)
[2023-12-23] MEDS: MORPHINE SULFATE 4 MG/ML SYRINGE IV STA (09:52)
[2023-12-23 09:54] LABS: Appearance,Urine Clear (Clear); Bilirubin,Urine Negative (Negative); Blood,Urine Negative (Negative); Color,Urine Colorless; Glucose,Urine (UA) Negative (Negative); Ketones,Urine Negative (Negative); Leukocyte Esterase,Urine Negative (Negative); Nitrite,Urine Negative (Negative); Protein,Urine Negative (Negative); Specific Gravity,Urine 1.003 (1.001-1.035); Urobilinogen,Urine <2.0 mg/dL (<2.0)
[2023-12-23 09:55] LABS: ALT 134 U/L (4-34); AST 104 U/L (14-36); African American GFR (CKD) >90 (>60 ml/min/1.73 sqM); Albumin 4.2 g/dL (3.5-5.0); Alkaline Phosphatase 150 U/L (38-126); Anion Gap 4 mmol/L; Blood Urea Nitrogen 12 mg/dL (7-17); Calcium 9.7 mg/dL (8.4-10.2); Carbon Dioxide 31 mmol/L (22-30); Chloride 105 mmol/L (98-107); Glucose 98 mg/dL (74-99); Lipase 45 U/L (23-300); Magnesium 1.9 mg/dL (1.6-2.3); Non-African American GFR(CKD) >90 (>60 ml/min/1.73 sqM); Phosphorus 3.9 mg/dL (2.5-4.5); Potassium 3.9 mmol/L (3.5-5.1); Sodium 140 mmol/L (137-145); Total Bilirubin 0.6 mg/dL (0.2-1.3); Total Protein 6.8 g/dL (6.3-8.2)
[2023-12-23] MEDS ORDERED: NYSTAT-TRIAMCIN 100,000-0.1 UNIT/GM-% CREAM 30 GM TUBE TOPICAL STA (09:58)
--- NOTE | 2023-12-23 10:53 | XR ---
EXAMINATION TYPE: XR KUB DATE OF EXAM: 12/23/2023 Comparison: 11/26/2023 Clinical History: 33-year-old female pain Findings: Lung bases are clear. No evidence for free intraperitoneal air. Cholecystectomy clips. Mild stool burden with air extending distally to the rectum. No suspicious calcifications seen. A single tubal ligation clips noted in the lower left pelvis. Impression: No evidence for free air or bowel obstruction. Mild stool burden. A single tubal ligation clips noted on the left. Cholecystectomy clips.
[2023-12-23] MEDS: NYSTATIN 100,000UNIT/GM CREAM 30 GM TUBE TOPICAL ONE (11:12)
[2023-12-23] MEDS: TRIAMCINOLONE 0.1% CREAM 80 GM TUBE TOPICAL ONE (11:12)
[2023-12-23] MEDS: HYDROmorphone 1 MG/ML 1 ML SYRINGE IVP STA (11:42)
[2023-12-23 13:22] VITALS: BP 112/72; PULSE 73; RESP 18; TEMP 98.1
== END 2023-12-23 11:49 | disposition home or self-care (01) ==
LOC: EC 08:56
DX: G89.18 Other acute postprocedural pain (principal); E86.0 Dehydration; R10.9 Unspecified abdominal pain; Z88.0 Allergy status to penicillin; Z88.1 Allergy status to other antibiotic agents; Z88.2 Allergy status to sulfonamides; Z88.8 Allergy status to other drugs, medicaments and biological substances; Z90.49 Acquired absence of other specified parts of digestive tract
CPT/HCPCS: 36415; 80053; 83690; 83735; 84100; 85025; 81003; 81025; 74018; 99284; 96374; 96375 ×2; 96361; J2270; J2405; J1170

== ENCOUNTER 2023-12-25 21:45 | Observation (INO) | payer OTHER ==
--- NOTE | 2023-12-25 23:52 | CT ---
EXAMINATION TYPE: CT abdomen pelvis wo con DATE OF EXAM: 12/25/2023 HISTORY: Pt. recently seen for same issue. Pt. c/o N/V x5 days. Pt states she had scar tissue removed from pelvic region by Dr. Bahena. Surgical operative report in pt e-chart is from 12/13/23. H/O: En dometriosis, polycystic ovarian syndrome. IRON DEFICIENCY ANEMIA. Stomach Ulcer. Hx ovarian cyst. Lap aroscopy X2, Section X3, right ovary and right tube removed, then total hysterectomy includi ng left ovary and left fallopian tube, cyst removed from chest, ADHESION REMOVAL FROM PAST , vaginal/pelvic biopsy. Scar tissue removal abdomen L upper lower CT DLP: 699.3 mGycm. Automated Exposure Control for Dose Reduction was Utilized. TECHNIQUE: CT scan of the abdomen and pelvis is performed without oral or IV contrast. COMPARISON: Prior CT November 09, 2023 FINDINGS: Within the limitations of a non-contrast study, the following observations are made. LUNG BASES: No significant abnormality is appreciated. LIVER/GB: Cholecystectomy clips are redemonstrated. PANCREAS: No significant abnormality is seen. SPLEEN: No significant abnormality is seen. ADRENALS: No significant abnormality is seen. KIDNEYS: There is 2 mm nonobstructing calculus in the left kidney coronal image 57. No hydronephrosis or obstructing left ureter calculus. There is 2 mm obstructing calculus in the right kidney coronal image 66. No right-sided hydronephrosis or obstructing ureter calculus. BOWEL: Small sized hiatal hernia is redemonstrated. No abnormal small or large bowel dilatation is se en. Appendix remains within normal limits from the base of cecum. GENITAL ORGANS: Uterus is surgically absent or atrophic in appearance similar to prior. Surgical clip s in the pelvis axial image 110 is redemonstrated. LYMPH NODES: No greater than 1cm abdominal or pelvic lymph nodes are appreciated. OSSEOUS STRUCTURES: No significant abnormality is seen. OTHER: No significant additional abnormality is seen. IMPRESSION: Tiny nonobstructing bilateral renal calculi. No obstructing ureteral calculi or hydroneph rosis is seen bilaterally. No bowel obstruction is present. No suspicious new or acute finding presen t to account for patient's symptoms
[2023-12-26] MEDS: SODIUM CHLORIDE 0.9% 1,000 ML BAG IV STA (00:18)
[2023-12-26] MEDS: ONDANSETRON 4 MG/2 ML VIAL IVP STA (00:18)
[2023-12-26] MEDS: MAG HYDROX/AL HYDROX/SIMETH 30 ML CUP PO STA (00:20)
[2023-12-26 00:23] LABS: Appearance,Urine Clear (Clear); Bilirubin,Urine Negative (Negative); Blood,Urine Negative (Negative); Color,Urine Colorless; Glucose,Urine (UA) Negative (Negative); Ketones,Urine Negative (Negative); Leukocyte Esterase,Urine Negative (Negative); Nitrite,Urine Negative (Negative); Protein,Urine Negative (Negative); Specific Gravity,Urine 1.014 (1.001-1.035); Urobilinogen,Urine <2.0 mg/dL (<2.0)
[2023-12-26] MEDS: HYDROmorphone 0.5 MG/0.5 ML SYRINGE IVP STA (00:24)
[2023-12-26] MEDS: KETOROLAC 15 MG/ML 1 ML VIAL IVP STA (00:25)
[2023-12-26 00:34] LABS: Basophils % (A) 0 %; Eosinophils # (A) 0.1 k/uL (0-0.7); Eosinophils % (A) 1 %; HCT 35.3 % (34.0-46.0); HGB 11.4 gm/dL (11.4-16.0); Lymphocytes # (A) 1.8 k/uL (1.0-4.8); Lymphocytes % (A) 29 %; MCH 29.4 pg (25.0-35.0); MCHC 32.3 g/dL (31.0-37.0); MCV 90.9 fL (80.0-100.0); Monocytes # (A) 0.3 k/uL (0-1.0); Monocytes % (A) 5 %; Neutrophils # (A) 3.9 k/uL (1.3-7.7); Neutrophils % (A) 64 %; Platelet Count 210 k/uL (150-450); RBC 3.88 m/uL (3.80-5.40); RDW 13.4 % (11.5-15.5); WBC 6.2 k/uL (3.8-10.6)
[2023-12-26] MEDS: diphenhydrAMINE 50 MG CAP PO STA (00:51)
[2023-12-26 01:11] LABS: ALT 89 U/L (4-34); AST 49 U/L (14-36); African American GFR (CKD) >90 (>60 ml/min/1.73 sqM); Albumin 4.4 g/dL (3.5-5.0); Alkaline Phosphatase 165 U/L (38-126); Anion Gap 8 mmol/L; Blood Urea Nitrogen 11 mg/dL (7-17); Calcium 9.7 mg/dL (8.4-10.2); Carbon Dioxide 27 mmol/L (22-30); Chloride 105 mmol/L (98-107); Glucose 95 mg/dL (74-99); Non-African American GFR(CKD) >90 (>60 ml/min/1.73 sqM); Potassium 3.9 mmol/L (3.5-5.1); Sodium 140 mmol/L (137-145); Total Bilirubin 0.8 mg/dL (0.2-1.3)
--- NOTE | 2023-12-26 02:44 | ED ---
General Adult HPI - General Chief complaint: Nausea/Vomiting/Diarrhea Stated complaint: NVD Time Seen by Provider: 12/25/23 22:16 Source: patient, RN notes reviewed Mode of arrival: ambulatory Limitations: no limitations - History of Present Illness Initial comments: 33-year-old female presenting to the ED with complaints of abdominal pain, nausea, vomiting. Has been ongoing for the last 5 days. Today also notes onset of left-sided back pain and decreased urination. No pain with urination. Denies hematuria. Denies fever or chills. Of note, patient is postop day 12 status post adhesion of lesions. No chest pain or shortness of breath. No oth er complaints at this time. - Related Data Previous Rx's Medication Instructions Recorded Acetaminophen Tab [Tylenol] 650 mg PO Q6H #30 tab 12/13/23 Docusate [Colace] 100 mg PO BID #20 capsule 12/13/23 Ibuprofen [Motrin] 600 mg PO Q6HR PRN #40 tab 12/13/23 oxyCODONE HCL/ACETAMINOPHEN 1 tab PO Q6HR PRN 3 Days #12 tab 12/14/23 [Percocet 5-325 mg] Allergies Allergy/AdvReac Type Severity Reaction Status Date / Time sulfamethoxazole Allergy Severe Anaphylaxis Verified 12/17/23 19:03 [From Bactrim] trimethoprim [From Bactrim] Allergy Severe Anaphylaxis Verified 12/17/23 19:03 adhesive tape Allergy Rash/Hives Verified 12/17/23 19:03 aloe vera Allergy Rash/Hives Verified 12/17/23 19:03 azithromycin Allergy Rash/Hives Verified 12/17/23 19:03 cephalexin Allergy Rash/Hives Verified 12/17/23 19:03 metronidazole [From Flagyl] Allergy Rash/Hives Verified 12/17/23 19:03 Penicillins Allergy Rash/Hives Verified 12/17/23 19:03 alprazolam [From Xanax] AdvReac MAKES Verified 12/17/23 19:03 PARANOID dicyclomine [From Bentyl] AdvReac constipatio Verified 12/17/23 19:03 n Review of Systems ROS Statement: Those systems with pertinent positive or pertinent negative responses have been documented in the HPI. ROS Other: All systems not noted in ROS Statement are negative. Past Medical History Past Medical History: Blood Disorder, GERD/Reflux Additional Past Medical History / Comment(s): Endometriosis, polycystic ovarian syndrome. IRON DEFICIENCY ANEMIA. Stomach Ulcer. Hx ovarian cyst. History of Any Multi-Drug Resistant Organisms: None Reported Past Surgical History: Ablation, Section, Cholecystectomy, Hernia Repair, Hysterectomy, Tubal Ligation, Uterine Ablation Additional Past Surgical History / Comment(s): Laparoscopy X2, Section X3, right ovary and right tube removed, then total hysterectomy including left ovary and left fallopian tube, cyst removed from chest, ADHESION REMOVAL FROM PAST CSECTION, vaginal/pelvic biopsy. Scar tissure removal abdomen L upper lower Past Anesthesia/Blood Transfusion Reactions: No Reported Reaction Past Psychological History: Anxiety, Depression Smoking Status: Never smoker Past Alcohol Use History: Rare Past Drug Use History: None Reported - Past Family History Mother Family Medical History: Deep Vein Thrombosis (DVT), Hyperlipidemia Additional Family Medical History / Comment(s): Depression and anxiety. DVT to arm after surgery. General Exam Limitations: no limitations General appearance: alert, in no apparent distress Neck exam: Present: normal inspection Respiratory exam: Present: normal lung sounds bilaterally Cardiovascular Exam: Present: regular rate GI/Abdominal exam: Present: soft (No significant tenderness to palpation. No rebound or any rigidity. Left CVA tenderness to percussion. Bowel sounds act emilie.) Neurological exam: Present: alert, oriented X3 Skin exam: Present: warm, dry, intact Course Vital Signs 12/25/23 12/26/23 12/26/23 21:48 00:23 02:39 Temperature 98 F 98.2 F Pulse Rate 100 75 73 Respiratory 16 18 18 Rate Blood Pressure 116/83 154/91 118/82 O2 Sat by Pulse 99 100 99 Oximetry Medical Decision Making - Medical Decision Making Was pt. sent in by a medical professional or institution (, PA, CONSTRUCTION TRADES TEACHER, urgent c are, hospital, or alf...) When possible be specific @ -No Did you speak to anyone other than the patient for history (EMS, parent, family, police, friend...)? What history was obtained from this source @ -No Did you review nursing and triage notes (agree or disagree)? Why? @ -I reviewed and agree with nursing and triage notes Were old charts reviewed (outside hosp., previous admission, EMS record, old EKG, old radiological studies, urgent care reports/EKG's, alf records)? Report findings @ -No old charts were reviewed Differential Diagnosis (chest pain, altered mental status, abdominal pain women, abdominal pain men, vaginal bleeding, weakness, fever, dyspnea, syncope, headache, dizziness, GI bleed, back pain, seizure, CVA, palpatations, mental health, musculoskeletal)? @ -Differential Abdominal Pain Women: Appendicitis, Cholecystitis, diverticulosis, ischemic bowel, pancreatitis, hepatitis, UTI, gastroenteritis, AAA, incarcerated hernia, bowel obstruction, constipation, inflammatory bowel, hepatitis, peptic ulcer disease, splenic infarction, perforated viscus, vulvitis, ovarian torsion, PID, kidney stone, placenta abruption, this is not meant to be an all-inclusive list EKG interpreted by me (3pts min.). @ -None X-rays interpreted by me (1pt min.). @ -None done CT interpreted by me (1pt min.). @ -CT abdomen pelvis interpreted me which revealed no evidence of acute finding. U/S interpreted by me (1pt. min.). @ -None done What testing was considered but not performed or refused? (CT, X-rays, U/S, labs)? Why? @ -None What meds were considered but not given or refused? Why? @ -None Did you discuss the management of the patient with other professionals (professionals i.e. , PA, CONSTRUCTION TRADES TEACHER, lab, RT, psych nurse, social work instructor, criminal justice professor, teacher, housing management officer, case investigator)? Give summary @ -Case discussed with Dr. Luis, who advised admission to Dr. Biggsania Was smoking cessation discussed for >3mins.? @ -No Was critical care preformed (if so, how long)? @ -No Were there social determinants of health that impacted care today? How? (Homelessness, low income, unemployed, alcoholism, drug addiction, transportation, low edu. Level, literacy, decrease access to med. care, correction, rehab)? @ -No Was there de-escalation of care discussed even if they declined (Discuss DNR or withdrawal of care, Hospice)? DNR status @ -No What co-morbidities impacted this encounter? (DM, HTN, Smoking, COPD, CAD, Cancer, CVA, ARF, Chemo, Hep., AIDS, mental health diagnosis, sleep apnea, morbid obesity)? @ -None Was patient admitted / discharged? Hospital course, mention meds given and route, prescriptions, significant lab abnormalities, going to OR and other pertinent info. @ -Admission 33-year-old female presents to the ED with nausea, vomiting. Of note, patient is postop day 12 for lysis of adhesions. Laboratory studies reviewed and largely unremarkable other than CMP showing transaminitis. Bilirubin unremarkable. CT abdomen pelvis was performed which revealed no evidence of acute finding. Patient will be admitted to observation care with patient was in agreement. Undiagnosed new problem with uncertain prognosis? @ -No Drug Therapy requiring intensive monitoring for toxicity (Heparin, Nitro, Insulin, Cardizem)? @ -No Were any procedures done? @ -No Diagnosis/symptom? @ -Intractable abdominal pain, nausea, vomiting Acute, or Chronic, or Acute on Chronic? @ -Acute Uncomplicated (without systemic symptoms) or Complicated (systemic symptoms)? @ -Uncomplicated Side effects of treatment? @ -No Exacerbation, Progression, or Severe Exacerbation? @ -No Poses a threat to life or bodily function? How? (Chest pain, USA, SD, pneumonia, PE, COPD, DKA, ARF, appy, cholecystitis, CVA, Diverticulitis, Homicidal, Suicidal, threat to staff... and all critical care pts) @ -No - Lab Data Result diagrams: 12/26/23 00:23 12/26/23 00:23 Lab Results 12/26/23 12/26/23 12/26/23 Range/Units 00:14 00:14 00:23 WBC 6.2 (3.8-10.6) k/uL RBC 3.88 (3.80-5.40) m/uL Hgb 11.4 (11.4-16.0) gm/dL Hct 35.3 (34.0-46.0) % MCV 90.9 (80.0-100.0) fL MCH 29.4 (25.0-35.0) pg MCHC 32.3 (31.0-37.0) g/dL RDW 13.4 (11.5-15.5) % Plt Count 210 (150-450) k/uL MPV 8.0 Neutrophils % 64 % Lymphocytes % 29 % Monocytes % 5 % Eosinophils % 1 % Basophils % 0 % Neutrophils # 3.9 (1.3-7.7) k/uL Lymphocytes # 1.8 (1.0-4.8) k/uL Monocytes # 0.3 (0-1.0) k/uL Eosinophils # 0.1 (0-0.7) k/uL Basophils # 0.0 (0-0.2) k/uL Sodium (137-145) mmol/L Potassium (3.5-5.1) mmol/L Chloride (98-107) mmol/L Carbon Dioxide (22-30) mmol/L Anion Gap mmol/L BUN (7-17) mg/dL Creatinine (0.52-1.04) mg/dL Est GFR (CKD-EPI)AfAm (>60 ml/min/1.73 sqM) Est GFR (CKD-EPI)NonAf (>60 ml/min/1.73 sqM) Glucose (74-99) mg/dL Calcium (8.4-10.2) mg/dL Total Bilirubin (0.2-1.3) mg/dL AST (14-36) U/L ALT (4-34) U/L Alkaline Phosphatase (38-126) U/L Total Protein (6.3-8.2) g/dL Albumin (3.5-5.0) g/dL Urine Color Colorless Urine Appearance Clear (Clear) Urine pH 6.0 (5.0-8.0) Ur Specific [place] 1.014 (1.001-1.035) Urine Protein Negative (Negative) Urine Glucose (UA) Negative (Negative) Urine Ketones Negative (Negative) Urine Blood Negative (Negative) Urine Nitrite Negative (Negative) Urine Bilirubin Negative (Negative) Urine Urobilinogen <2.0 (<2.0) mg/dL Ur Leukocyte Esterase Negative (Negative) Urine HCG, Qual Not Detected (Not Detectd) 12/26/23 Range/Units 00:23 WBC (3.8-10.6) k/uL RBC (3.80-5.40) m/uL Hgb (11.4-16.0) gm/dL Hct (34.0-46.0) % MCV (80.0-100.0) fL MCH (25.0-35.0) pg MCHC (31.0-37.0) g/dL RDW (11.5-15.5) % Plt Count (150-450) k/uL MPV Neutrophils % % Lymphocytes % % Monocytes % % Eosinophils % % Basophils % % Neutrophils # (1.3-7.7) k/uL Lymphocytes # (1.0-4.8) k/uL Monocytes # (0-1.0) k/uL Eosinophils # (0-0.7) k/uL Basophils # (0-0.2) k/uL Sodium 140 (137-145) mmol/L Potassium 3.9 (3.5-5.1) mmol/L Chloride 105 (98-107) mmol/L Carbon Dioxide 27 (22-30) mmol/L Anion Gap 8 mmol/L BUN 11 (7-17) mg/dL Creatinine 0.69 (0.52-1.04) mg/dL Est GFR (CKD-EPI)AfAm >90 (>60 ml/min/1.73 sqM) Est GFR (CKD-EPI)NonAf >90 (>60 ml/min/1.73 sqM) Glucose 95 (74-99) mg/dL Calcium 9.7 (8.4-10.2) mg/dL Total Bilirubin 0.8 (0.2-1.3) mg/dL AST 49 H (14-36) U/L ALT 89 H (4-34) U/L Alkaline Phosphatase 165 H (38-126) U/L Total Protein 7.0 (6.3-8.2) g/dL Albumin 4.4 (3.5-5.0) g/dL Urine Color Urine Appearance (Clear) Urine pH (5.0-8.0) Ur Specific [place] (1.001-1.035) Urine Protein (Negative) Urine Glucose (UA) (Negative) Urine Ketones (Negative) Urine Blood (Negative) Urine Nitrite (Negative) Urine Bilirubin (Negative) Urine Urobilinogen (<2.0) mg/dL Ur Leukocyte Esterase (Negative) Urine HCG, Qual (Not Detectd) Disposition Clinical Impression: Abdominal pain Disposition: ADMITTED IP TO THIS [facility] Condition: Good Referrals: None,Stated [Primary Care Provider] - 1-2 days Time of Disposition: 02:00
[2023-12-26] MEDS ORDERED: NALOXONE 0.4 MG/ML 1 ML VIAL IV PRN (02:49)
[2023-12-26] MEDS: ACETAMINOPHEN TAB 500 MG TAB PO STA (02:54)
[2023-12-26] MEDS: SODIUM CHLORIDE 0.9% 1,000 ML IV SCH ×2 (03:00→15:27)
[2023-12-26] MEDS: KETOROLAC 15 MG/ML 1 ML VIAL IVP PRN (09:01)
[2023-12-26] MEDS: ONDANSETRON 4 MG/2 ML VIAL IVP PRN ×2 (09:02→23:22)
--- NOTE | 2023-12-26 12:50 | P.GSCN ---
History of Present Illness Consult date: 12/26/23 History of present illness: CHIEF COMPLAINT: Abdominal pain HISTORY OF PRESENT ILLNESS: This is a 33-year-old female presenting with abdominal pain, nausea and diarrhea that is worsened over the last 5 days. Patient also reports a few episodes of vomiting. Patient status post lysis of adhesions on 12/13/2023. Patient reports that her pain has been about the same since surgery but is located more on the left side of her abdomen and she has been having diarrhea every time she eats. Appetite has been decreased. CT scan completed reporting tiny nonobstructing bilateral renal calculi. No suspicious new or acute findings for patient's symptoms. Patient reports her last EGD and colonoscopy were several years ago. Her past surgical history does include umbilical hernia repair, cholecystectomy, hysterectomy and . PAST MEDICAL HISTORY: Endometriosis, polycystic ovarian syndrome. IRON DEFICIENCY ANEMIA. Stomach Ulcer. Hx ovarian cyst. PAST SURGICAL HISTORY: Ablation, Section, Cholecystectomy, Hernia Repair, Hysterectomy, Tubal Ligation, Uterine Ablation, Laparoscopy X2, Section X3, right ovary and right tube removed, then total hysterectomy including left ovary and left fallopian tube, cyst removed from chest, ADHESION REMOVAL FROM PAST CSECTION, vaginal/pelvic biopsy. Scar tissure removal abdomen L upper lower MEDICATIONS: See below ALLERGIES: See below SOCIAL HISTORY: No illicit drug use. REVIEW OF SYSTEMS: CONSTITUTIONAL: Denies fever or chills. HEENT: Denies blurred vision, vision changes, or eye pain. Denies hemoptysis CARDIOVASCULAR: Denies chest pain or pressure. RESPIRATORY: No shortness of breath. GASTROINTESTINAL: See HPI for pertinent findings HEMATOLOGIC: Denies bleeding disorders. GENITOURINARY: Denies any blood in urine or increased urinary frequency. SKIN: Denies pruitis. Denies rash. PHYSICAL EXAM: VITAL SIGNS: Reviewed GENERAL: Well-developed in no acute distress. HEENT: No sclera icterus. Extraocular movements grossly intact. Moist buccal mucosa. Head is atraumatic, normocephalic. No nasal drainage. ABDOMEN: Soft. Nondistended. Tenderness to palpation left side of abdomen NEUROLOGIC: Alert and oriented. Cranial nerves II through XII grossly intact. LABORATORY DATA: WBC 6.2 Hgb 11.4 platelets 210 Sodium is 140 potassium 3.9 creatinine 0.69 Total bilirubin 0.8 AST 49 ALT 89 alk phos 165 Urinalysis negative for infection IMAGING: CT scan abdomen pelvis reports tiny nonobstructing bilateral renal calculi. No obstructing ureteral calculi or hydronephrosis seen bilaterally. No bowel obstruction is present. No suspicious new or acute findings to account for patient's symptoms. ASSESSMENT: 1. Abdominal pain with diarrhea and vomiting PLAN: -CT scan abdomen pelvis with oral contrast ordered for further evaluation of patient's abdominal pain -Continue supportive care -IV fluids increased to 75 ml/hr Physician Pipelines Superintendent note has been reviewed by physician. Signing provider agrees with the documented findings, assessment, and plan of care. Abdominal pain Past Medical History Past Medical History: Blood Disorder, GERD/Reflux Additional Past Medical History / Comment(s): Endometriosis, polycystic ovarian syndrome. IRON DEFICIENCY ANEMIA. Stomach Ulcer. Hx ovarian cyst. History of Any Multi-Drug Resistant Organisms: None Reported Past Surgical History: Ablation, Section, Cholecystectomy, Hernia Repair, Hysterectomy, Tubal Ligation, Uterine Ablation Additional Past Surgical History / Comment(s): Laparoscopy X2, Section X3, right ovary and right tube removed, then total hysterectomy including left ovary and left fallopian tube, cyst removed from chest, ADHESION REMOVAL FROM PAST CSECTION, vaginal/pelvic biopsy. Scar tissure removal abdomen L upper lower Past Anesthesia/Blood Transfusion Reactions: No Reported Reaction Past Psychological History: Anxiety, Depression Smoking Status: Never smoker Past Alcohol Use History: Rare Past Drug Use History: None Reported - Past Family History Mother Family Medical History: Deep Vein Thrombosis (DVT), Hyperlipidemia Additional Family Medical History / Comment(s): Depression and anxiety. DVT to arm after surgery. Medications and Allergies Home Medications Medication Instructions Recorded Confirmed Type Ibuprofen [Motrin] 600 mg PO Q6HR PRN #40 tab 12/13/23 12/26/23 Rx Acetaminophen Tab [Tylenol] 650 mg PO Q6H PRN 12/26/23 12/26/23 History Cephalexin [Keflex] 500 mg PO Q6H 12/26/23 12/26/23 History Docusate [Colace] 100 mg PO BID PRN 12/26/23 12/26/23 History Omeprazole 20 mg PO DAILY 12/26/23 12/26/23 History Allergies Allergy/AdvReac Type Severity Reaction Status Date / Time sulfamethoxazole Allergy Severe Anaphylaxis Verified 12/26/23 09:47 [From Bactrim] trimethoprim [From Bactrim] Allergy Severe Anaphylaxis Verified 12/26/23 09:47 adhesive tape Allergy Rash/Hives Verified 12/26/23 09:47 aloe vera Allergy Rash/Hives Verified 12/26/23 09:47 azithromycin Allergy Rash/Hives Verified 12/26/23 09:47 cephalexin Allergy Rash/Hives Verified 12/26/23 09:47 metronidazole [From Flagyl] Allergy Rash/Hives Verified 12/26/23 09:47 Penicillins Allergy Rash/Hives Verified 12/26/23 09:47 alprazolam [From Xanax] AdvReac MAKES Verified 12/26/23 09:47 PARANOID dicyclomine [From Bentyl] AdvReac constipatio Verified 12/26/23 09:47 n Surgical - Exam Vital Signs Temp Pulse Resp BP Pulse Ox 98 F 100 16 116/83 99 12/25/23 21:48 12/25/23 21:48 12/25/23 21:48 12/25/23 21:48 12/25/23 21:48 Results - Labs 12/26/23 00:23 12/26/23 00:23 Abnormal Lab Results - Last 24 Hours (Table) 12/26/23 Range/Units 00:23 AST 49 H (14-36) U/L ALT 89 H (4-34) U/L Alkaline Phosphatase 165 H (38-126) U/L Diabetes panel 12/26/23 Range/Units 00:23 Sodium 140 (137-145) mmol/L Potassium 3.9 (3.5-5.1) mmol/L Chloride 105 (98-107) mmol/L Carbon Dioxide 27 (22-30) mmol/L BUN 11 (7-17) mg/dL Creatinine 0.69 (0.52-1.04) mg/dL Glucose 95 (74-99) mg/dL Calcium 9.7 (8.4-10.2) mg/dL AST 49 H (14-36) U/L ALT 89 H (4-34) U/L Alkaline Phosphatase 165 H (38-126) U/L Total Protein 7.0 (6.3-8.2) g/dL Albumin 4.4 (3.5-5.0) g/dL Calcium panel 12/26/23 Range/Units 00:23 Calcium 9.7 (8.4-10.2) mg/dL Albumin 4.4 (3.5-5.0) g/dL Pituitary panel 12/26/23 Range/Units 00:23 Sodium 140 (137-145) mmol/L Potassium 3.9 (3.5-5.1) mmol/L Chloride 105 (98-107) mmol/L Carbon Dioxide 27 (22-30) mmol/L BUN 11 (7-17) mg/dL Creatinine 0.69 (0.52-1.04) mg/dL Glucose 95 (74-99) mg/dL Calcium 9.7 (8.4-10.2) mg/dL Adrenal panel 12/26/23 Range/Units 00:23 Sodium 140 (137-145) mmol/L Potassium 3.9 (3.5-5.1) mmol/L Chloride 105 (98-107) mmol/L Carbon Dioxide 27 (22-30) mmol/L BUN 11 (7-17) mg/dL Creatinine 0.69 (0.52-1.04) mg/dL Glucose 95 (74-99) mg/dL Calcium 9.7 (8.4-10.2) mg/dL Total Bilirubin 0.8 (0.2-1.3) mg/dL AST 49 H (14-36) U/L ALT 89 H (4-34) U/L Alkaline Phosphatase 165 H (38-126) U/L Total Protein 7.0 (6.3-8.2) g/dL Albumin 4.4 (3.5-5.0) g/dL
[2023-12-26] MEDS: IOPAMIDOL CONTRAST (ORAL USE) VIAL PO PRN (15:21)
[2023-12-26] MEDS: ACETAMINOPHEN TAB 325 MG TAB PO PRN (16:25)
--- NOTE | 2023-12-26 18:11 | CT ---
EXAMINATION TYPE: CT abdomen pelvis wo con DATE OF EXAM: 12/26/2023 COMPARISON: 12/25/2023 HISTORY: 33-year-old female Abdominal pain N/V/D. CT DLP: 728.9 mGycm. Automated exposure control for dose reduction was used. TECHNIQUE: Contiguous axial scanning of the abdomen and pelvis without IV contrast. Coronal and sagit erin reconstructions performed. FINDINGS: Heart normal size without pericardial effusion. Lung bases clear without pleural effusion. Small to moderate size hiatal hernia redemonstrated. Noncontrast appearance of the liver, adrenal glands, spleen, and pancreas show no gross value. There is a punctate 2 mm nonobstructive stone within either kidney. No hydronephrosis on either side. No dilated small bowel, free fluid, or free air. No mesenteric or retroperitoneal lymphadenopathy. Normal appendix. Mild circumferential wall thickening along the transverse and descending colon may be due to nondiste ntion. No pericolonic inflammatory change. Previous umbilical mesh repair. Bladder only partially distended. There may have been previous partial hysterectomy. Neither ovary cl early seen. There is a clip noted within the left cul-de-sac. No abnormal fluid collection in the pel vis or pelvic lymphadenopathy. Bones: No osseous destructive process. IMPRESSION: 1. Mild circumferential wall thickening along the transverse and descending colon may be due to nond istention or a nonspecific mild colitis. Clinically correlate. 2. A couple punctate nonobstructive renal calculi measuring up to 2 mm on either side. No hydronephr osis. 3. Small to moderate sized hiatal hernia. Previous umbilical mesh repair.
--- NOTE | 2023-12-27 14:13 | P.PN ---
Subjective Progress Note Date: 12/27/23 CHIEF COMPLAINT: Abdominal pain HISTORY OF PRESENT ILLNESS: Patient presented with abdominal pain and vomiting and diarrhea. She reports that the diarrhea and vomiting have resolved. She was able to tolerate a full liquid diet. She does still report some left-sided abdominal pain. The CT scan of abdomen pelvis with oral contrast reported mild circumferential wall thickening along the transverse and descending colon may be due to nondistention or nonspecific mild colitis. Nonobstructive renal calculi. Small to moderate sized hiatal hernia. Afebrile. PHYSICAL EXAM: VITAL SIGNS: Reviewed. GENERAL: Well-developed in no acute distress. ABDOMEN: Soft. Nondistended. NEUROLOGIC: Alert and oriented. Cranial nerves II through XII grossly intact. ASSESSMENT: 1. Abdominal pain with diarrhea and vomiting improving 2. Small to moderate size hiatal hernia PLAN: -Advance diet to regular -Continue supportive care -Anticipate discharge tomorrow Physician Architectural Technician note has been reviewed by physician. Signing provider agrees with the documented findings, assessment, and plan of care. Objective - Vital Signs Vital signs: Vital Signs Temp 97.6 F 12/27/23 07:00 Pulse 74 12/27/23 07:00 Resp 16 12/27/23 07:00 BP 111/77 12/27/23 07:00 Pulse Ox 97 12/27/23 07:00 FiO2 Intake & Output 12/26/23 12/27/23 12/27/23 18:59 06:59 18:59 Intake Total 0 Balance 0 Intake: Oral 0 Other: Voiding Method Toilet Toilet # Voids 1 2 # Bowel Movements 2 - Labs CBC & Chem 7: 12/26/23 00:23 12/26/23 00:23
[2023-12-28 07:33] VITALS: BP 147/89; PULSE 62; RESP 14; TEMP 97.7
== END 2023-12-28 13:50 | disposition home or self-care (01) ==
LOC: EC 21:45 → 6NMEDSUR 12-26 03:07
PROVIDERS: ADMIT Surgery; ATTEND Surgery
DX: R10.9 Unspecified abdominal pain (principal); R11.2 Nausea with vomiting, unspecified; R19.7 Diarrhea, unspecified; K44.9 Diaphragmatic hernia without obstruction or gangrene; K21.9 Gastro-esophageal reflux disease without esophagitis; F32.A Depression, unspecified; F41.9 Anxiety disorder, unspecified; Z79.899 Other long term (current) drug therapy; Z88.2 Allergy status to sulfonamides; Z88.1 Allergy status to other antibiotic agents; Z88.0 Allergy status to penicillin
CPT/HCPCS: 96376 ×3; 96361 ×2; 96374; 96375; 99285; 36415; 80053; 85025; 81003; 81025; 74176 ×2; G0378 ×3; J2405 ×3; J1885 ×3; J1170

== ENCOUNTER 2024-01-07 20:34 | Emergency (ER) | payer OTHER ==
[2024-01-07 21:01] LABS: Appearance,Urine Cloudy (Clear); Bilirubin,Urine Negative (Negative); Blood,Urine Negative (Negative); Calcium Oxalate Crystals,Urine Many /hpf; Color,Urine Yellow; Glucose,Urine (UA) Negative (Negative); Ketones,Urine Negative (Negative); Leukocyte Esterase,Urine Negative (Negative); Mucus,Urine Few /hpf; Nitrite,Urine Negative (Negative); Protein,Urine Trace (Negative); RBC,Urine 1 /hpf (0-5); Specific Gravity,Urine 1.025 (1.001-1.035); Squamous Epithelial Cell,Urine 1 /hpf (0-4); Urobilinogen,Urine <2.0 mg/dL (<2.0); WBC,Urine 1 /hpf (0-5)
--- NOTE | 2024-01-07 21:10 | XR ---
EXAMINATION TYPE: XR KUB DATE OF EXAM: 01/07/2024 9:06 PM CLINICAL INDICATION:Female, 33 years old with history of abdominal pain; [facility] COMPARISON: Abdominal x-ray 12/23/2023 TECHNIQUE: One radiographic view of the abdomen was obtained. FINDINGS: The bowel gas pattern is nonspecific without dilated loops of small or large bowel. There i s no evidence for organomegaly or pneumoperitoneum. The osseous structures are intact. Postsurgical clips are present in the right upper quadrant. Fecal material and gas are demonstrated throughout th e colon and rectum. IMPRESSION: Nonspecific bowel gas pattern without radiographic evidence for acute process.
[2024-01-07 21:50] LABS: Basophils % (A) 1 %; Eosinophils # (A) 0.1 k/uL (0-0.7); Eosinophils % (A) 1 %; HCT 34.7 % (34.0-46.0); HGB 11.6 gm/dL (11.4-16.0); Lymphocytes # (A) 1.8 k/uL (1.0-4.8); Lymphocytes % (A) 37 %; MCH 30.7 pg (25.0-35.0); MCHC 33.3 g/dL (31.0-37.0); MCV 92.1 fL (80.0-100.0); Mean Platelet Volume 7.9; Monocytes # (A) 0.2 k/uL (0-1.0); Monocytes % (A) 5 %; Neutrophils # (A) 2.6 k/uL (1.3-7.7); Neutrophils % (A) 55 %; Platelet Count 197 k/uL (150-450); RBC 3.77 m/uL (3.80-5.40); RDW 13.2 % (11.5-15.5); WBC 4.7 k/uL (3.8-10.6)
[2024-01-07 22:06] LABS: ALT 22 U/L (4-34); AST 26 U/L (14-36); African American GFR (CKD) >90 (>60 ml/min/1.73 sqM); Albumin 4.5 g/dL (3.5-5.0); Alkaline Phosphatase 112 U/L (38-126); Anion Gap 8 mmol/L; Blood Urea Nitrogen 15 mg/dL (7-17); Calcium 9.4 mg/dL (8.4-10.2); Carbon Dioxide 26 mmol/L (22-30); Chloride 106 mmol/L (98-107); Glucose 100 mg/dL (74-99); Non-African American GFR(CKD) 80 (>60 ml/min/1.73 sqM); Potassium 3.9 mmol/L (3.5-5.1); Sodium 140 mmol/L (137-145); Total Bilirubin 0.7 mg/dL (0.2-1.3); Total Protein 6.8 g/dL (6.3-8.2)
--- NOTE | 2024-01-07 22:11 | ED ---
General Adult HPI - General Chief complaint: Abdominal Pain Stated complaint: Abd Pain Time Seen by Provider: 01/07/24 21:45 Source: patient, RN notes reviewed, old records reviewed Mode of arrival: ambulatory Limitations: no limitations - History of Present Illness Initial comments: Patient is a 33-year-old female who presents emergency department complaining of abdominal pain. States it is located over the right side of the abdomen. Has a history of chronic abdominal pain with numerous abdominal surgeries and has frequent CT imaging of her abdomen. States she has noticed some diarrhea with this pain. Denies any fevers or chills. Endorses mild nausea. Presents over concern for her abdominal pain and symptoms. Is due to follow-up with Dr. Bahena her surgeon for EGD and colonoscopy soon. Presents for further evaluation. Symptoms have been ongoing for 2 to 3 days. - Related Data Home Medications Medication Instructions Recorded Confirmed Acetaminophen Tab [Tylenol] 650 mg PO Q6H PRN 12/26/23 12/26/23 Cephalexin [Keflex] 500 mg PO Q6H 12/26/23 12/26/23 Docusate [Colace] 100 mg PO BID PRN 12/26/23 12/26/23 Omeprazole 20 mg PO DAILY 12/26/23 12/26/23 Previous Rx's Medication Instructions Recorded Ibuprofen [Motrin] 600 mg PO Q6HR PRN #40 tab 12/13/23 Allergies Allergy/AdvReac Type Severity Reaction Status Date / Time sulfamethoxazole Allergy Severe Anaphylaxis Verified 01/07/24 20:43 [From Bactrim] trimethoprim [From Bactrim] Allergy Severe Anaphylaxis Verified 01/07/24 20:43 adhesive tape Allergy Rash/Hives Verified 01/07/24 20:43 aloe vera Allergy Rash/Hives Verified 01/07/24 20:43 azithromycin Allergy Rash/Hives Verified 01/07/24 20:43 cephalexin Allergy Rash/Hives Verified 01/07/24 20:43 metronidazole [From Flagyl] Allergy Rash/Hives Verified 01/07/24 20:43 Penicillins Allergy Rash/Hives Verified 01/07/24 20:43 alprazolam [From Xanax] AdvReac MAKES Verified 01/07/24 20:43 PARANOID dicyclomine [From Bentyl] AdvReac constipatio Verified 01/07/24 20:43 n Review of Systems ROS Statement: Those systems with pertinent positive or pertinent negative responses have been documented in the HPI. Review of Systems: CONST: Denies fever EYES: Denies blurry vision ENT: Denies nasal congestion C/V: Denies Chest pain RESP: Denies shortness of breath GI: Endorses abdominal pain : Denies dysuria SKIN: Denies rash. MSK: Denies joint pain. NEURO: Denies headache ROS Other: All systems not noted in ROS Statement are negative. Past Medical History Past Medical History: Blood Disorder, GERD/Reflux Additional Past Medical History / Comment(s): Endometriosis, polycystic ovarian syndrome. IRON DEFICIENCY ANEMIA. Stomach Ulcer. Hx ovarian cyst. History of Any Multi-Drug Resistant Organisms: None Reported Past Surgical History: Ablation, Section, Cholecystectomy, Hernia Repair, Hysterectomy, Tubal Ligation, Uterine Ablation Additional Past Surgical History / Comment(s): Laparoscopy X2, Section X3, right ovary and right tube removed, then total hysterectomy including left ovary and left fallopian tube, cyst removed from chest, ADHESION REMOVAL FROM PAST CSECTION, vaginal/pelvic biopsy. Scar tissure removal abdomen L upper lower Past Anesthesia/Blood Transfusion Reactions: No Reported Reaction Past Psychological History: Anxiety, Depression Smoking Status: Never smoker Past Alcohol Use History: Rare Past Drug Use History: None Reported - Past Family History Mother Family Medical History: Deep Vein Thrombosis (DVT), Hyperlipidemia Additional Family Medical History / Comment(s): Depression and anxiety. DVT to arm after surgery. General Exam - General Exam Comments Initial Comments: General: Appears in no significant acute distress. HEAD: Normal with no signs of head trauma. EYES: PERRLA, EOMI, conjunctiva normal, no discharge. ENT: Hearing grossly intact, normal oropharynx. RESPIRATORY: Clear breath sounds bilaterally. No wheezes, rales, or rhonchi. C/V: Regular rate and rhythm. S1 and S2 auscultated, no edema, peripheral pulses 2+ and intact throughout ABD: Abdomen soft, nondistended. Mild tenderness palpation along the right side of the abdomen. No guarding. No rebound tenderness. No peritoneal signs. EXT: No obvious deformities SKIN: No rashes or lesions observed on exposed skin. NEURO: Alert and oriented x 4. Limitations: no limitations Course Vital Signs 01/07/24 01/07/24 01/07/24 20:41 22:00 23:00 Temperature 99.3 F Pulse Rate 109 H 86 71 Respiratory 18 18 18 Rate Blood Pressure 121/71 119/74 100/71 O2 Sat by Pulse 98 98 100 Oximetry 01/08/24 00:38 Temperature 98.0 F Pulse Rate 80 Respiratory 16 Rate Blood Pressure 117/76 O2 Sat by Pulse 98 Oximetry Medical Decision Making - Medical Decision Making Was pt. sent in by a medical professional or institution (, PA, PAN DUMPER, urgent care, hospital, or retirement...) When possible be specific @ -No Did you speak to anyone other than the patient for history (EMS, parent, family, police, friend...)? What history was obtained from this source @ -No Did you review nursing and triage notes (agree or disagree)? Why? @ -I reviewed and agree with nursing and triage notes Were old charts reviewed (outside hosp., previous admission, EMS record, old EKG, old radiological studies, urgent care reports/EKG's, retirement records)? Report findings @ -Patient's chart from this hospital was reviewed and she is a regular visitor to our emergency department having received 10 abdomen pelvis CTs since August 2022 with numerous KUB x-rays as well. Most recent CTs revealed some mild colitis but no other obvious acute findings. Differential Diagnosis (chest pain, altered mental status, abdominal pain women, abdominal pain men, vaginal bleeding, weakness, fever, dyspnea, syncope, headache, dizziness, GI bleed, back pain, seizure, CVA, palpatations, mental health, musculoskeletal)? @ -Differential Abdominal Pain Women: Appendicitis, Cholecystitis, diverticulosis, ischemic bowel, pancreatitis, hepatitis, UTI, gastroenteritis, AAA, incarcerated hernia, bowel obstruction, constipation, inflammatory bowel, hepatitis, peptic ulcer disease, splenic infarction, perforated viscus, vulvitis, ovarian torsion, PID, kidney stone, placenta abruption, this is not meant to be an all-inclusive list EKG interpreted by me (3pts min.). @ -None done X-rays interpreted by me (1pt min.). @ -KUB x-ray revealed no obvious acute intra-abdominal process. CT interpreted by me (1pt min.). @ -None done U/S interpreted by me (1pt. min.). @ -None done What testing was considered but not performed or refused? (CT, X-rays, U/S, labs)? Why? @ -None What meds were considered but not given or refused? Why? @ -None Did you discuss the management of the patient with other professionals (professionals i.e. , ANALI, PAN DUMPER, lab, RT, psych nurse, social group worker, product responsibility liaison, teacher, space operations officer, hospice case manager)? Give summary @ -No Was smoking cessation discussed for >3mins.? @ -No Was critical care preformed (if so, how long)? @ -No Were there social determinants of health that impacted care today? How? (Homelessness, low income, unemployed, alcoholism, drug addiction, transportation, low edu. Level, literacy, decrease access to med. care, longterm, rehab)? @ -No Was there de-escalation of care discussed even if they declined (Discuss DNR or withdrawal of care, Hospice)? DNR status @ -No What co-morbidities impacted this encounter? (DM, HTN, Smoking, COPD, CAD, Cancer, CVA, ARF, Chemo, Hep., AIDS, mental health diagnosis, sleep apnea, morbid obesity)? @ -Chronic abdominal pain, numerous abdominal surgeries Was patient admitted / discharged? Hospital course, mention meds given and route, prescriptions, significant lab abnormalities, going to OR and other pertinent info. @ -Patient presents complaining of abdominal pain. Is here frequently for similar complaints. Recently had 2 CTs done within the last 14 days. They were unremarkable. Follows up with Dr. Baez outpatient. We will obtain abdominal labs. KUB x-ray was obtained while patient was in triage. She will be symptomatically treated with IV analgesia meds, lipids, Protonix, Zofran. I discussed with the patient that I would like to avoid irradiating her further considering she has had 10 CAT scans in the last 14 months or so and is only 33 years old. She expressed understanding of this reasoning. We will obtain abdominal laboratory studies including lactic acidosis and urine. We will defer imaging at this time. Patient in agreement this plan. Patient did recently complete a course of antibiotics for UTI which could be contributory to her symptoms at this time. Vital signs within acceptable limits.Patient's laboratory studies returned within acceptable limits. On reevaluation, patient is feeling improved. Discussed her negative workup. I still do not recommend CT imaging at this time considering normal workup and patient feeling clinically improved and her history of numerous CAT scans in her past at her young age. She was in agreement this plan. She will be discharged home at this time with follow-up with her surgeon Dr. Bahena. I instructed the patient to follow up with their PCP in the next 1-3 days. I explained that the patient should return to the emergency department if they experience any worsening symptoms. Strict return precautions were discussed with the patient. The patient expressed understanding of these instructions. I answered all questions that the patient had. The patient was discharged home in fair condition with their prescriptions and follow up information. Undiagnosed new problem with uncertain prognosis? @ -No Drug Therapy requiring intensive monitoring for toxicity (Heparin, Nitro, Insulin, Cardizem)? @ -No Were any procedures done? @ -No Diagnosis/symptom? @ -Chronic abdominal pain Acute, or Chronic, or Acute on Chronic? @ -Chronic Uncomplicated (without systemic symptoms) or Complicated (systemic symptoms)? @ -Uncomplicated Side effects of treatment? @ -None Exacerbation, Progression, or Severe Exacerbation] @ -No Poses a threat to life or bodily function? @ -Unlikely - Lab Data Result diagrams: 01/07/24 21:35 01/07/24 21:35 Lab Results 01/07/24 01/07/24 01/07/24 Range/Units 20:53 21:35 21:35 WBC 4.7 (3.8-10.6) k/uL RBC 3.77 L (3.80-5.40) m/uL Hgb 11.6 (11.4-16.0) gm/dL Hct 34.7 (34.0-46.0) % MCV 92.1 (80.0-100.0) fL MCH 30.7 (25.0-35.0) pg MCHC 33.3 (31.0-37.0) g/dL RDW 13.2 (11.5-15.5) % Plt Count 197 (150-450) k/uL MPV 7.9 Neutrophils % 55 % Lymphocytes % 37 % Monocytes % 5 % Eosinophils % 1 % Basophils % 1 % Neutrophils # 2.6 (1.3-7.7) k/uL Lymphocytes # 1.8 (1.0-4.8) k/uL Monocytes # 0.2 (0-1.0) k/uL Eosinophils # 0.1 (0-0.7) k/uL Basophils # 0.0 (0-0.2) k/uL Sodium 140 (137-145) mmol/L Potassium 3.9 (3.5-5.1) mmol/L Chloride 106 (98-107) mmol/L Carbon Dioxide 26 (22-30) mmol/L Anion Gap 8 mmol/L BUN 15 (7-17) mg/dL Creatinine 0.94 (0.52-1.04) mg/dL Est GFR (CKD-EPI)AfAm >90 (>60 ml/min/1.73 sqM) Est GFR (CKD-EPI)NonAf 80 (>60 ml/min/1.73 sqM) Glucose 100 H (74-99) mg/dL Plasma Lactic Acid Santhosh (0.7-2.0) mmol/L Calcium 9.4 (8.4-10.2) mg/dL Total Bilirubin 0.7 (0.2-1.3) mg/dL AST 26 (14-36) U/L ALT 22 (4-34) U/L Alkaline Phosphatase 112 (38-126) U/L Total Protein 6.8 (6.3-8.2) g/dL Albumin 4.5 (3.5-5.0) g/dL Lipase (23-300) U/L Urine Color Yellow Urine Appearance Cloudy H (Clear) Urine pH 6.0 (5.0-8.0) Ur Specific [place] 1.025 (1.001-1.035) Urine Protein Trace H (Negative) Urine Glucose (UA) Negative (Negative) Urine Ketones Negative (Negative) Urine Blood Negative (Negative) Urine Nitrite Negative (Negative) Urine Bilirubin Negative (Negative) Urine Urobilinogen <2.0 (<2.0) mg/dL Ur Leukocyte Esterase Negative (Negative) Urine RBC 1 (0-5) /hpf Urine WBC 1 (0-5) /hpf Ur Squamous Epith Cells 1 (0-4) /hpf Calcium Oxalate Crystal Many H (None) /hpf Urine Mucus Few H (None) /hpf 01/07/24 01/07/24 Range/Units 22:02 22:02 WBC (3.8-10.6) k/uL RBC (3.80-5.40) m/uL Hgb (11.4-16.0) gm/dL Hct (34.0-46.0) % MCV (80.0-100.0) fL MCH (25.0-35.0) pg MCHC (31.0-37.0) g/dL RDW (11.5-15.5) % Plt Count (150-450) k/uL MPV Neutrophils % % Lymphocytes % % Monocytes % % Eosinophils % % Basophils % % Neutrophils # (1.3-7.7) k/uL Lymphocytes # (1.0-4.8) k/uL Monocytes # (0-1.0) k/uL Eosinophils # (0-0.7) k/uL Basophils # (0-0.2) k/uL Sodium (137-145) mmol/L Potassium (3.5-5.1) mmol/L Chloride (98-107) mmol/L Carbon Dioxide (22-30) mmol/L Anion Gap mmol/L BUN (7-17) mg/dL Creatinine (0.52-1.04) mg/dL Est GFR (CKD-EPI)AfAm (>60 ml/min/1.73 sqM) Est GFR (CKD-EPI)NonAf (>60 ml/min/1.73 sqM) Glucose (74-99) mg/dL Plasma Lactic Acid Santhosh 0.8 (0.7-2.0) mmol/L Calcium (8.4-10.2) mg/dL Total Bilirubin (0.2-1.3) mg/dL AST (14-36) U/L ALT (4-34) U/L Alkaline Phosphatase (38-126) U/L Total Protein (6.3-8.2) g/dL Albumin (3.5-5.0) g/dL Lipase 63 (23-300) U/L Urine Color Urine Appearance (Clear) Urine pH (5.0-8.0) Ur Specific [place] (1.001-1.035) Urine Protein (Negative) Urine Glucose (UA) (Negative) Urine Ketones (Negative) Urine Blood (Negative) Urine Nitrite (Negative) Urine Bilirubin (Negative) Urine Urobilinogen (<2.0) mg/dL Ur Leukocyte Esterase (Negative) Urine RBC (0-5) /hpf Urine WBC (0-5) /hpf Ur Squamous Epith Cells (0-4) /hpf Calcium Oxalate Crystal (None) /hpf Urine Mucus (None) /hpf Disposition Clinical Impression: Chronic abdominal pain Disposition: HOME SELF-CARE Condition: Fair Instructions (If sedation given, give patient instructions): Abdominal Pain (ED) Additional Instructions: Follow up with your surgeon Dr. Bahena Is patient prescribed a controlled substance at d/c from ED?: No Referrals: None,Stated [Primary Care Provider] - 1-2 days Forms: Area PCPs Time of Disposition: 00:01
[2024-01-07] MEDS: SODIUM CHLORIDE 0.9% 1,000 ML IV STA (22:41)
[2024-01-07] MEDS: ONDANSETRON 4 MG/2 ML VIAL IVP STA (22:41)
[2024-01-07] MEDS: MORPHINE SULFATE 4 MG/ML SYRINGE IVP STA (22:41)
[2024-01-07] MEDS: PANTOPRAZOLE 40 MG/10 ML VIAL IVP STA (22:42)
[2024-01-08] MEDS: MORPHINE SULFATE 2 MG/ML SYRINGE IVP STA (00:25)
[2024-01-08 00:46] VITALS: BP 117/76; PULSE 80; RESP 16; TEMP 98
== END 2024-01-08 00:42 | disposition home or self-care (01) ==
LOC: EC 20:34
DX: G89.29 Other chronic pain (principal); R10.9 Unspecified abdominal pain; E87.20 Acidosis, unspecified; Z88.0 Allergy status to penicillin; Z88.1 Allergy status to other antibiotic agents; Z88.2 Allergy status to sulfonamides; Z91.09 Other allergy status, other than to drugs and biological substances; Z88.8 Allergy status to other drugs, medicaments and biological substances; Z98.890 Other specified postprocedural states
CPT/HCPCS: 36415; 80053; 83605; 83690; 85025; 81001; 74018; 99285; 96374; 96375 ×2; 96376; J2270; J2405; C9113

== ENCOUNTER 2024-01-11 08:20 | Emergency (ER) | payer OTHER ==
[2024-01-11 08:29] VITALS: RESP 18
--- NOTE | 2024-01-11 08:39 | ED ---
General Adult HPI - General Chief complaint: Abdominal Pain Stated complaint: heartburn Time Seen by Provider: 01/11/24 08:31 Source: patient, RN notes reviewed Mode of arrival: ambulatory Limitations: no limitations - History of Present Illness Initial comments: Patient is a 33-year-old female presenting to the emergency department with concerns with heartburn. Patient does have known hiatal hernia. Patient states her discomfort started bothering her more around midnight. Patient states this is a chronic daily problem for her. Patient has been taking her omeprazole. Patient did take Tums around 4 times with mild transient improvement of symp toms. - Related Data Home Medications Medication Instructions Recorded Confirmed Acetaminophen Tab [Tylenol] 650 mg PO Q6H PRN 12/26/23 12/26/23 Cephalexin [Keflex] 500 mg PO Q6H 12/26/23 12/26/23 Docusate [Colace] 100 mg PO BID PRN 12/26/23 12/26/23 Omeprazole 20 mg PO DAILY 12/26/23 12/26/23 Previous Rx's Medication Instructions Recorded Ibuprofen [Motrin] 600 mg PO Q6HR PRN #40 tab 12/13/23 Allergies Allergy/AdvReac Type Severity Reaction Status Date / Time sulfamethoxazole Allergy Severe Anaphylaxis Verified 01/11/24 08:29 [From Bactrim] trimethoprim [From Bactrim] Allergy Severe Anaphylaxis Verified 01/11/24 08:29 adhesive tape Allergy Rash/Hives Verified 01/11/24 08:29 aloe vera Allergy Rash/Hives Verified 01/11/24 08:29 azithromycin Allergy Rash/Hives Verified 01/11/24 08:29 cephalexin Allergy Rash/Hives Verified 01/11/24 08:29 metronidazole [From Flagyl] Allergy Rash/Hives Verified 01/11/24 08:29 Penicillins Allergy Rash/Hives Verified 01/11/24 08:29 alprazolam [From Xanax] AdvReac MAKES Verified 01/11/24 08:29 PARANOID dicyclomine [From Bentyl] AdvReac constipatio Verified 01/11/24 08:29 n Review of Systems ROS Statement: Those systems with pertinent positive or pertinent negative responses have been documented in the HPI. ROS Other: All systems not noted in ROS Statement are negative. Constitutional: Denies: fever Eyes: Denies: eye pain ENT: Denies: ear pain Respiratory: Denies: dyspnea Gastrointestinal: Reports: as per HPI (Discomfort is upper epigastric region) Genitourinary: Denies: dysuria Musculoskeletal: Denies: back pain Past Medical History Past Medical History: Blood Disorder, GERD/Reflux Additional Past Medical History / Comment(s): Endometriosis, polycystic ovarian syndrome. IRON DEFICIENCY ANEMIA. Stomach Ulcer. Hx ovarian cyst. History of Any Multi-Drug Resistant Organisms: None Reported Past Surgical History: Ablation, Section, Cholecystectomy, Hernia Repair, Hysterectomy, Tubal Ligation, Uterine Ablation Additional Past Surgical History / Comment(s): Laparoscopy X2, Section X3, right ovary and right tube removed, then total hysterectomy including left ovary and left fallopian tube, cyst removed from chest, ADHESION REMOVAL FROM PAST CSECTION, vaginal/pelvic biopsy. Scar tissure removal abdomen L upper lower Past Anesthesia/Blood Transfusion Reactions: No Reported Reaction Past Psychological History: Anxiety, Depression Smoking Status: Never smoker Past Alcohol Use History: Rare Past Drug Use History: None Reported - Past Family History Mother Family Medical History: Deep Vein Thrombosis (DVT), Hyperlipidemia Additional Family Medical History / Comment(s): Depression and anxiety. DVT to arm after surgery. General Exam Limitations: no limitations General appearance: alert, in no apparent distress Head exam: Present: normocephalic Eye exam: Present: normal appearance Neck exam: Present: normal inspection Respiratory exam: Present: normal lung sounds bilaterally Cardiovascular Exam: Present: regular rate, normal rhythm, normal heart sounds Expanded Peripheral pulses: 2+: Radial (R), Radial (L), Posterior Tibialis (R), Posterior Tibialis (L) GI/Abdominal exam: Present: soft, normal bowel sounds. Absent: distended, tenderness, guarding, rebound, rigid, pulsatile mass Extremities exam: Present: normal inspection. Absent: pedal edema, calf tenderness Neurological exam: Present: alert Psychiatric exam: Present: normal affect, normal mood Skin exam: Present: normal color Course Vital Signs 01/11/24 08:27 Temperature 97.5 F L Pulse Rate 77 Respiratory 18 Rate Blood Pressure 135/69 O2 Sat by Pulse 100 Oximetry - Reevaluation(s) Reevaluation #1: 01/11/24 10:06 Patient reevaluated and feels somewhat better with GI cocktail however does request further pain medication. Previous charts reviewed. EKG Findings - EKG Results: EKG: interpreted by ERMD, sinus rhythm, normal axis, normal QRS, normal ST/T Medical Decision Making - Medical Decision Making MDM back was pt. sent in by a medical professional or institution (ANA[facility] Leroy, BUGGY OPERATOR, urgent care, hospital, or snf...) When possible be specific @ -No Did you speak to anyone other than the patient for history (EMS, parent, family, police, friend...)? What history was obtained from this source @ -No Did you review nursing and triage notes (agree or disagree)? Why? @ -I reviewed and agree with nursing and triage notes Were old charts reviewed (outside hosp., previous admission, EMS record, old EKG, old radiological studies, urgent care reports/EKG's, snf records)? Report findings @ -Multiple previous charts reviewed Differential Diagnosis (chest pain, altered mental status, abdominal pain women, abdominal pain men, vaginal bleeding, weakness, fever, dyspnea, syncope, headache, dizziness, GI bleed, back pain, seizure, CVA, palpatations, mental health, musculoskeletal)? @ -Differential Abdominal Pain Women: Appendicitis, Cholecystitis, diverticulosis, ischemic bowel, pancreatitis, hepatitis, UTI, gastroenteritis, AAA, incarcerated hernia, bowel obstruction, constipation, inflammatory bowel, hepatitis, peptic ulcer disease, splenic infarction, perforated viscus, vulvitis, ovarian torsion, PID, kidney stone, placenta abruption, this is not meant to be an all-inclusive list EKG interpreted by me (3pts min.). @ -As above X-rays interpreted by me (1pt min.). @ -Chest x-ray shows no acute CT interpreted by me (1pt min.). @ -None done U/S interpreted by me (1pt. min.). @ -None done What testing was considered but not performed or refused? (CT, X-rays, U/S, labs)? Why? @ -None What meds were considered but not given or refused? Why? @ -None Did you discuss the management of the patient with other professionals (professionals i.e. ANALI Leroy, BUGGY OPERATOR, lab, RT, psych nurse, mental health social worker, client analyst, teacher, uniform patrol police officer, manager case management)? Give summary @ -No Was smoking cessation discussed for >3mins.? @ -No Was critical care preformed (if so, how long)? @ -No Were there social determinants of health that impacted care today? How? (Homelessness, low income, unemployed, alcoholism, drug addiction, transportation, low edu. Level, literacy, decrease access to med. care, correction, rehab)? @ -No Was there de-escalation of care discussed even if they declined (Discuss DNR or withdrawal of care, Hospice)? DNR status @ -No What co-morbidities impacted this encounter? (DM, HTN, Smoking, COPD, CAD, Cancer, CVA, ARF, Chemo, Hep., AIDS, mental health diagnosis, sleep apnea, morbid obesity)? @ -None Was patient admitted / discharged? Hospital course, mention meds given and route, prescriptions, significant lab abnormalities, going to OR and other pertinent info. @ -Patient presents with concern for hiatal hernia discomfort. Symptoms improved with medication. Patient is updated on results and need for follow-up. Undiagnosed new problem with uncertain prognosis? @ -No Drug Therapy requiring intensive monitoring for toxicity (Heparin, Nitro, Insulin, Cardizem)? @ -No Were any procedures done? @ -No Diagnosis/symptom? @ -Epigastric discomfort, hiatal hernia Acute, or Chronic, or Acute on Chronic? @ -Acute on chronic, acute on chronic Uncomplicated (without systemic symptoms) or Complicated (systemic symptoms)? @ -Complicated with chronic pain Side effects of treatment? @ -No Exacerbation, Progression, or Severe Exacerbation? @ -No Poses a threat to life or bodily function? How? (Chest pain, [place], [place], pneumonia, PE, COPD, DKA, ARF, appy, cholecystitis, CVA, Diverticulitis, Homicidal, Suicidal, threat to staff... and all critical care pts) @ -No - Lab Data Result diagrams: 01/11/24 10:18 01/11/24 10:18 Lab Results 01/11/24 01/11/24 01/11/24 Range/Units 10:18 10:18 10:18 WBC 4.2 (3.8-10.6) k/uL RBC 3.58 L (3.80-5.40) m/uL Hgb 10.8 L (11.4-16.0) gm/dL Hct 33.3 L (34.0-46.0) % MCV 93.0 (80.0-100.0) fL MCH 30.3 (25.0-35.0) pg MCHC 32.6 (31.0-37.0) g/dL RDW 13.0 (11.5-15.5) % Plt Count 184 (150-450) k/uL MPV 8.2 Neutrophils % 53 % Lymphocytes % 35 % Monocytes % 7 % Eosinophils % 2 % Basophils % 0 % Neutrophils # 2.3 (1.3-7.7) k/uL Lymphocytes # 1.5 (1.0-4.8) k/uL Monocytes # 0.3 (0-1.0) k/uL Eosinophils # 0.1 (0-0.7) k/uL Basophils # 0.0 (0-0.2) k/uL PT 9.5 L (10.0-12.5) sec INR 0.8 (<1.2) APTT 24.7 (22.0-30.0) sec D-Dimer 0.21 (<0.60) mg/L FEU Sodium 141 (137-145) mmol/L Potassium 3.7 (3.5-5.1) mmol/L Chloride 108 H (98-107) mmol/L Carbon Dioxide 31 H (22-30) mmol/L Anion Gap 2 mmol/L BUN 9 (7-17) mg/dL Creatinine 0.72 (0.52-1.04) mg/dL Est GFR (CKD-EPI)AfAm >90 (>60 ml/min/1.73 sqM) Est GFR (CKD-EPI)NonAf >90 (>60 ml/min/1.73 sqM) Glucose 91 (74-99) mg/dL Calcium 9.3 (8.4-10.2) mg/dL Magnesium 1.9 (1.6-2.3) mg/dL Total Bilirubin 0.6 (0.2-1.3) mg/dL AST 31 (14-36) U/L ALT 25 (4-34) U/L Alkaline Phosphatase 100 (38-126) U/L Troponin I (0.000-0.034) ng/mL Total Protein 6.2 L (6.3-8.2) g/dL Albumin 3.8 (3.5-5.0) g/dL 01/11/24 Range/Units 10:18 WBC (3.8-10.6) k/uL RBC (3.80-5.40) m/uL Hgb (11.4-16.0) gm/dL Hct (34.0-46.0) % MCV (80.0-100.0) fL MCH (25.0-35.0) pg MCHC (31.0-37.0) g/dL RDW (11.5-15.5) % Plt Count (150-450) k/uL MPV Neutrophils % % Lymphocytes % % Monocytes % % Eosinophils % % Basophils % % Neutrophils # (1.3-7.7) k/uL Lymphocytes # (1.0-4.8) k/uL Monocytes # (0-1.0) k/uL Eosinophils # (0-0.7) k/uL Basophils # (0-0.2) k/uL PT (10.0-12.5) sec INR (<1.2) APTT (22.0-30.0) sec D-Dimer (<0.60) mg/L FEU Sodium (137-145) mmol/L Potassium (3.5-5.1) mmol/L Chloride (98-107) mmol/L Carbon Dioxide (22-30) mmol/L Anion Gap mmol/L BUN (7-17) mg/dL Creatinine (0.52-1.04) mg/dL Est GFR (CKD-EPI)AfAm (>60 ml/min/1.73 sqM) Est GFR (CKD-EPI)NonAf (>60 ml/min/1.73 sqM) Glucose (74-99) mg/dL Calcium (8.4-10.2) mg/dL Magnesium (1.6-2.3) mg/dL Total Bilirubin (0.2-1.3) mg/dL AST (14-36) U/L ALT (4-34) U/L Alkaline Phosphatase (38-126) U/L Troponin I <0.012 (0.000-0.034) ng/mL Total Protein (6.3-8.2) g/dL Albumin (3.5-5.0) g/dL Disposition Clinical Impression: Epigastric discomfort, Hiatal hernia Disposition: HOME SELF-CARE Condition: Stable Instructions (If sedation given, give patient instructions): Hiatal Hernia (ED), Chest Pain (ED), Epigastric Pain (ED) Additional Instructions: Please do follow-up with your primary care physician in the next day or 2 for recheck. You should have a primary care physician. Return for worsening or changing symptoms, fever, or other concerns. Is patient prescribed a controlled substance at d/c from ED?: No Referrals: Christiano Lizama MD [STAFF PHYSICIAN] - 1-2 days Time of Disposition: 11:12
--- NOTE | 2024-01-11 09:19 | XR ---
EXAMINATION TYPE: XR chest 2V DATE OF EXAM: 01/11/2024 COMPARISON: 10/19/2023 INDICATION: Hiatal hernia pain heartburn TECHNIQUE: Frontal and lateral views of the chest are obtained. FINDINGS: The heart size is normal. The pulmonary vasculature is normal. The lungs are clear. Hiatal hernia not identified on the current exam. IMPRESSION: 1. No acute pulmonary process.
[2024-01-11] MEDS: MAG HYDROX/AL HYDROX/SIMETH 30 ML, HYOSCYAMINE ELIXIR 10 ML, LIDOCAINE VISCOUS 2% 10 ML PO STA (09:27)
[2024-01-11] MEDS: KETOROLAC 15 MG/ML 1 ML VIAL IVP STA (10:19)
[2024-01-11 10:34] LABS: Basophils % (A) 0 %; Eosinophils % (A) 2 %; HCT 33.3 % (34.0-46.0); HGB 10.8 gm/dL (11.4-16.0); Lymphocytes % (A) 35 %; MCH 30.3 pg (25.0-35.0); MCHC 32.6 g/dL (31.0-37.0); Mean Platelet Volume 8.2; Monocytes % (A) 7 %; Neutrophils % (A) 53 %; Platelet Count 184 k/uL (150-450); RBC 3.58 m/uL (3.80-5.40); WBC 4.2 k/uL (3.8-10.6)
[2024-01-11 10:35] LABS: Eosinophils # (A) 0.1 k/uL (0-0.7); Lymphocytes # (A) 1.5 k/uL (1.0-4.8); Monocytes # (A) 0.3 k/uL (0-1.0); Neutrophils # (A) 2.3 k/uL (1.3-7.7)
[2024-01-11 10:46] LABS: ALT 25 U/L (4-34); AST 31 U/L (14-36); African American GFR (CKD) >90 (>60 ml/min/1.73 sqM); Albumin 3.8 g/dL (3.5-5.0); Alkaline Phosphatase 100 U/L (38-126); Anion Gap 2 mmol/L; Blood Urea Nitrogen 9 mg/dL (7-17); Calcium 9.3 mg/dL (8.4-10.2); Carbon Dioxide 31 mmol/L (22-30); Chloride 108 mmol/L (98-107); Glucose 91 mg/dL (74-99); Magnesium 1.9 mg/dL (1.6-2.3); Non-African American GFR(CKD) >90 (>60 ml/min/1.73 sqM); Potassium 3.7 mmol/L (3.5-5.1); Sodium 141 mmol/L (137-145); Total Bilirubin 0.6 mg/dL (0.2-1.3); Total Protein 6.2 g/dL (6.3-8.2)
[2024-01-11 10:48] LABS: INR 0.8 (<1.2); Partial Thromboplastin Time 24.7 sec (22.0-30.0); Prothrombin Time 9.5 sec (10.0-12.5)
[2024-01-11 11:36] VITALS: BP 114/76; PULSE 66; TEMP 97.9
== END 2024-01-11 11:36 | disposition home or self-care (01) ==
LOC: EC 08:20
DX: K44.9 Diaphragmatic hernia without obstruction or gangrene (principal); Z88.0 Allergy status to penicillin; Z88.2 Allergy status to sulfonamides; Z88.8 Allergy status to other drugs, medicaments and biological substances; Z88.1 Allergy status to other antibiotic agents; Z90.49 Acquired absence of other specified parts of digestive tract
CPT/HCPCS: 36415; 93005; 85379; 80053; 83735; 84484; 85025; 85610; 85730; 71046; 99284; 96374; J1885

== ENCOUNTER 2024-01-18 18:02 | Emergency (ER) | payer OTHER ==
[2024-01-18] MEDS: SODIUM CHLORIDE 0.9% 1,000 ML IV STA (19:48)
[2024-01-18] MEDS: MORPHINE SULFATE 2 MG/ML SYRINGE IVP STA (19:49)
[2024-01-18] MEDS: ONDANSETRON 4 MG/2 ML VIAL IVP STA (19:49)
--- NOTE | 2024-01-18 19:57 | XR ---
EXAMINATION TYPE: XR KUB DATE OF EXAM: 01/18/2024 7:32 PM CLINICAL INDICATION:Female, 33 years old with history of abdominal pain; [facility] COMPARISON: KUB 01/07/2024. CT 12/26/2023 TECHNIQUE: Supine radiographic view/s of the abdomen/pelvis obtained. FINDINGS: Slightly increased gas and stool in nondistended colon compared to previous. No gas-distended small b owel loops or air-fluid levels are identified. No free air seen on this supine study. Surgical clips right upper quadrant likely from cholecystectomy. Large surgical clip in the left pelvis may relate t o tubal ligation. Potentially, one of the clips in the right upper quadrant could represent migrated right tubal ligation clip. No suspicious calcifications are seen. No acute osseous anomalies seen. There is mild levocurvature of the lumbar spine. IMPRESSION: 1. Nonspecific, nonobstructive bowel gas pattern. 2. Slightly increased gas and stool in the colon compared to previous. 3. No free air detected.
[2024-01-18 20:35] LABS: Basophils % (A) 0 %; Eosinophils % (A) 1 %; HCT 35.6 % (34.0-46.0); HGB 11.7 gm/dL (11.4-16.0); Lymphocytes # (A) 1.5 k/uL (1.0-4.8); Lymphocytes % (A) 31 %; MCH 30.3 pg (25.0-35.0); MCHC 32.8 g/dL (31.0-37.0); MCV 92.5 fL (80.0-100.0); Mean Platelet Volume 7.8; Monocytes # (A) 0.3 k/uL (0-1.0); Monocytes % (A) 5 %; Neutrophils # (A) 2.9 k/uL (1.3-7.7); Neutrophils % (A) 61 %; Platelet Count 196 k/uL (150-450); RBC 3.84 m/uL (3.80-5.40); RDW 12.9 % (11.5-15.5); WBC 4.8 k/uL (3.8-10.6)
[2024-01-18 20:51] LABS: Appearance,Urine Clear (Clear); Bilirubin,Urine Negative (Negative); Blood,Urine Negative (Negative); Color,Urine Colorless; Glucose,Urine (UA) Negative (Negative); Ketones,Urine Negative (Negative); Leukocyte Esterase,Urine Negative (Negative); Nitrite,Urine Negative (Negative); PH, Urine 6.5 (5.0-8.0); Protein,Urine Negative (Negative); Specific Gravity,Urine 1.012 (1.001-1.035); Urobilinogen,Urine <2.0 mg/dL (<2.0)
[2024-01-18 21:07] LABS: ALT 25 U/L (4-34); AST 28 U/L (14-36); African American GFR (CKD) >90 (>60 ml/min/1.73 sqM); Albumin 4.5 g/dL (3.5-5.0); Alkaline Phosphatase 115 U/L (38-126); Amylase 55 U/L (30-110); Anion Gap 7 mmol/L; Blood Urea Nitrogen 14 mg/dL (7-17); Calcium 9.8 mg/dL (8.4-10.2); Carbon Dioxide 28 mmol/L (22-30); Chloride 105 mmol/L (98-107); Glucose 99 mg/dL (74-99); Lipase 49 U/L (23-300); Non-African American GFR(CKD) >90 (>60 ml/min/1.73 sqM); Potassium 4.1 mmol/L (3.5-5.1); Sodium 140 mmol/L (137-145); Total Protein 7.4 g/dL (6.3-8.2)
--- NOTE | 2024-01-18 21:59 | ED ---
Abdominal Pain HPI - General Chief Complaint: Abdominal Pain Stated Complaint: hip pain Time Seen by Provider: 01/18/24 19:06 Source: patient, family Mode of arrival: wheelchair Limitations: no limitations - History of Present Illness Initial Comments: 33-year-old female presenting with chief complaint of abdominal pain. Patient has history of chronic abdominal pain due to endometriosis. Patient states that she has had pain like this before. She was unable to control the pain at home. She does have [address] surgeon [address] Bahena this week for scopes. Pain has been ongoing for the last 2 days. She admits to nausea and diarrhea. No chest pain or difficulty breathing. No fever. No dysuria or hematuria. - Related Data Home Medications Medication Instructions Recorded Confirmed Docusate [Colace] 100 mg PO BID PRN 12/26/23 01/17/24 Omeprazole 40 mg PO AC-LUNCH 12/26/23 01/17/24 Escitalopram [Lexapro] 10 mg PO AC-LUNCH 01/17/24 01/17/24 Ondansetron [Zofran] 4 mg PO Q8HR PRN 01/17/24 01/17/24 Previous Rx's Medication Instructions Recorded Ibuprofen [Motrin] 600 mg PO Q6HR PRN #40 tab 12/13/23 Allergies Allergy/AdvReac Type Severity Reaction Status Date / Time sulfamethoxazole Allergy Severe Anaphylaxis Verified 01/18/24 18:33 [From Bactrim] trimethoprim [From Bactrim] Allergy Severe Anaphylaxis Verified 01/18/24 18:33 adhesive tape Allergy Rash/Hives Verified 01/18/24 18:33 aloe vera Allergy Rash/Hives Verified 01/18/24 18:33 azithromycin Allergy Rash/Hives Verified 01/18/24 18:33 cephalexin Allergy Rash/Hives Verified 01/18/24 18:33 metronidazole [From Flagyl] Allergy Rash/Hives Verified 01/18/24 18:33 Penicillins Allergy Rash/Hives Verified 01/18/24 18:33 alprazolam [From Xanax] AdvReac MAKES Verified 01/18/24 18:33 PARANOID dicyclomine [From Bentyl] AdvReac constipatio Verified 01/18/24 18:33 n Review of Systems ROS Statement: Those systems with pertinent positive or pertinent negative responses have been documented in the HPI. ROS Other: All systems not noted in ROS Statement are negative. Past Medical History Past Medical History: Blood Disorder, GERD/Reflux Additional Past Medical History / Comment(s): Endometriosis, polycystic ovarian syndrome. IRON DEFICIENCY ANEMIA. Stomach Ulcer. Hx ovarian cyst. History of Any Multi-Drug Resistant Organisms: None Reported Past Surgical History: Ablation, Section, Cholecystectomy, Hernia Repair, Hysterectomy, Tubal Ligation, Uterine Ablation Additional Past Surgical History / Comment(s): Laparoscopy X2, Section X3, right ovary and right tube removed, then total hysterectomy including left ovary and left fallopian tube, cyst removed from chest, ADHESION REMOVAL FROM PAST CSECTION, vaginal/pelvic biopsy. Scar tissure removal abdomen L upper lower Past Anesthesia/Blood Transfusion Reactions: No Reported Reaction Past Psychological History: Anxiety, Depression Smoking Status: Never smoker Past Alcohol Use History: Rare Past Drug Use History: None Reported - Past Family History Mother Family Medical History: Deep Vein Thrombosis (DVT), Hyperlipidemia Additional Family Medical History / Comment(s): Depression and anxiety. DVT to arm after surgery. General Exam Limitations: no limitations General appearance: alert, in no apparent distress Head exam: Present: atraumatic, normocephalic Eye exam: Present: normal appearance, EOMI Neck exam: Present: normal inspection. Absent: meningismus Respiratory exam: Absent: respiratory distress Cardiovascular Exam: Present: regular rate GI/Abdominal exam: Present: soft, tenderness (R sided). Absent: distended, guarding, rebound, rigid Extremities exam: Present: normal inspection Neurological exam: Present: alert, oriented X3 Psychiatric exam: Present: normal affect, normal mood Skin exam: Present: warm, dry Course Vital Signs 01/18/24 01/18/24 18:31 22:17 Temperature 98 F 98.2 F Pulse Rate 74 78 Respiratory 18 17 Rate Blood Pressure 120/79 128/78 O2 Sat by Pulse 98 98 Oximetry Medical Decision Making - Medical Decision Making Was pt. sent in by a medical professional or institution (, PA, ELECTROMEDICAL EQUIPMENT REPAIRER, urgent care, hospital, or custodial...) When possible be specific @ -No Did you speak to anyone other than the patient for history (EMS, parent, family, police, friend...)? What history was obtained from this source @ -No Did you review nursing and triage notes (agree or disagree)? Why? @ -I reviewed and agree with nursing and triage notes Were old charts reviewed (outside hosp., previous admission, EMS record, old EKG, old radiological studies, urgent care reports/EKG's, custodial records)? Report findings @ -Recent visits are reviewed, patient has had several CTs in the past few years Differential Diagnosis (chest pain, altered mental status, abdominal pain women, abdominal pain men, vaginal bleeding, weakness, fever, dyspnea, syncope, headache, dizziness, GI bleed, back pain, seizure, CVA, palpatations, mental health, musculoskeletal)? @ -MDM Differential Abdominal Pain Women: Appendicitis, Cholecystitis, diverticulosis, ischemic bowel, pancreatitis, hepatitis, UTI, gastroenteritis, AAA, incarcerated hernia, bowel obstruction, constipation, inflammatory bowel, hepatitis, peptic ulcer disease, splenic infarction, perforated viscus, vulvitis, ovarian torsion, PID, kidney stone, placenta abruption... This is not meant to be an all-inclusive list EKG interpreted by me (3pts min.). @ -As above X-rays interpreted by me (1pt min.). @ -X-ray shows nonspecific nonobstructive bowel gas pattern. Slightly increased gas and stool in the colon compared to previous. No free air detected. CT interpreted by me (1pt min.). @ -None done U/S interpreted by me (1pt. min.). @ -None done What testing was considered but not performed or refused? (CT, X-rays, U/S, labs)? Why? @ -CT was considered, however given that the patient has had several scans recently and lab work is normal combined with her pain improving, I believe it i s in her best interest to avoid further radiation and follow-up with her surgeon at her scheduled appointment What meds were considered but not given or refused? Why? @ -None Did you discuss the management of the patient with other professionals (professionals i.e. , PA, ELECTROMEDICAL EQUIPMENT REPAIRER, lab, RT, psych nurse, director social welfare, boiler room operator, teacher, disbursing officer, case sealer)? Give summary @ -No Was smoking cessation discussed for >3mins.? @ -No Was critical care preformed (if so, how long)? @ -No Were there social determinants of health that impacted care today? How? (Homelessness, low income, unemployed, alcoholism, drug addiction, transportation, low edu. Level, literacy, decrease access to med. care, nursing home, rehab)? @ -No Was there de-escalation of care discussed even if they declined (Discuss DNR or withdrawal of care, Hospice)? DNR status @ -No What co-morbidities impacted this encounter? (DM, HTN, Smoking, COPD, CAD, Cancer, CVA, ARF, Chemo, Hep., AIDS, mental health diagnosis, sleep apnea, morbid obesity)? @ -None Was patient admitted / discharged? Hospital course, mention meds given and route, prescriptions, significant lab abnormalities, going to OR and other pertinent info. @ -33-year-old female with history of chronic abdominal pain presenting with chief complaint of right lower quadrant pain. States that she has had pain like this before due to her endometriosis. History and physical exam are conducted. She is provided with pain medication fluids and antiemetics. Lab work is grossly unremarkable. KUB x-ray shows nonspecific bowel gas pattern and no free air. On reassessment patient reports improvement in her pain. She feels comfortable with discharge home and following up with her surgeon Dr. Bahena. Discharged. Follow-up with PCP. Report back to ER with any new or worsening symptoms. Discussed return parameters and answered all questions. Patient con veyed verbal understanding and agreed to the plan. I discussed this case in detail with my attending Dr. Carpio Undiagnosed new problem with uncertain prognosis? @ -No Drug Therapy requiring intensive monitoring for toxicity (Heparin, Nitro, Insulin, Cardizem)? @ -No Were any procedures done? @ -No Diagnosis/symptom? @ -Abdominal pain Acute, or Chronic, or Acute on Chronic? @ -Acute on chronic Uncomplicated (without systemic symptoms) or Complicated (systemic symptoms)? @ -Complicated Side effects of treatment? @ -No Exacerbation, Progression, or Severe Exacerbation? @ -No Poses a threat to life or bodily function? How? (Chest pain, [place], NH, pneumonia, PE, COPD, DKA, ARF, appy, cholecystitis, CVA, Diverticulitis, Homicidal, Suicidal, threat to staff... and all critical care pts) @ -Low likelihood - Lab Data Result diagrams: 01/18/24 19:41 01/18/24 19:41 Lab Results 01/18/24 01/18/24 01/18/24 Range/Units 19:31 19:41 19:41 WBC 4.8 (3.8-10.6) k/uL RBC 3.84 (3.80-5.40) m/uL Hgb 11.7 (11.4-16.0) gm/dL Hct 35.6 (34.0-46.0) % MCV 92.5 (80.0-100.0) fL MCH 30.3 (25.0-35.0) pg MCHC 32.8 (31.0-37.0) g/dL RDW 12.9 (11.5-15.5) % Plt Count 196 (150-450) k/uL MPV 7.8 Neutrophils % 61 % Lymphocytes % 31 % Monocytes % 5 % Eosinophils % 1 % Basophils % 0 % Neutrophils # 2.9 (1.3-7.7) k/uL Lymphocytes # 1.5 (1.0-4.8) k/uL Monocytes # 0.3 (0-1.0) k/uL Eosinophils # 0.0 (0-0.7) k/uL Basophils # 0.0 (0-0.2) k/uL Sodium 140 (137-145) mmol/L Potassium 4.1 (3.5-5.1) mmol/L Chloride 105 (98-107) mmol/L Carbon Dioxide 28 (22-30) mmol/L Anion Gap 7 mmol/L BUN 14 (7-17) mg/dL Creatinine 0.80 (0.52-1.04) mg/dL Est GFR (CKD-EPI)AfAm >90 (>60 ml/min/1.73 sqM) Est GFR (CKD-EPI)NonAf >90 (>60 ml/min/1.73 sqM) Glucose 99 (74-99) mg/dL Plasma Lactic Acid Santhosh (0.7-2.0) mmol/L Calcium 9.8 (8.4-10.2) mg/dL Total Bilirubin 1.0 (0.2-1.3) mg/dL AST 28 (14-36) U/L ALT 25 (4-34) U/L Alkaline Phosphatase 115 (38-126) U/L Total Protein 7.4 (6.3-8.2) g/dL Albumin 4.5 (3.5-5.0) g/dL Amylase 55 (30-110) U/L Lipase 49 (23-300) U/L Urine Color Colorless Urine Appearance Clear (Clear) Urine pH 6.5 (5.0-8.0) Ur Specific [place] 1.012 (1.001-1.035) Urine Protein Negative (Negative) Urine Glucose (UA) Negative (Negative) Urine Ketones Negative (Negative) Urine Blood Negative (Negative) Urine Nitrite Negative (Negative) Urine Bilirubin Negative (Negative) Urine Urobilinogen <2.0 (<2.0) mg/dL Ur Leukocyte Esterase Negative (Negative) 01/18/24 Range/Units 19:41 WBC (3.8-10.6) k/uL RBC (3.80-5.40) m/uL Hgb (11.4-16.0) gm/dL Hct (34.0-46.0) % MCV (80.0-100.0) fL MCH (25.0-35.0) pg MCHC (31.0-37.0) g/dL RDW (11.5-15.5) % Plt Count (150-450) k/uL MPV Neutrophils % % Lymphocytes % % Monocytes % % Eosinophils % % Basophils % % Neutrophils # (1.3-7.7) k/uL Lymphocytes # (1.0-4.8) k/uL Monocytes # (0-1.0) k/uL Eosinophils # (0-0.7) k/uL Basophils # (0-0.2) k/uL Sodium (137-145) mmol/L Potassium (3.5-5.1) mmol/L Chloride (98-107) mmol/L Carbon Dioxide (22-30) mmol/L Anion Gap mmol/L BUN (7-17) mg/dL Creatinine (0.52-1.04) mg/dL Est GFR (CKD-EPI)AfAm (>60 ml/min/1.73 sqM) Est GFR (CKD-EPI)NonAf (>60 ml/min/1.73 sqM) Glucose (74-99) mg/dL Plasma Lactic Acid Santhosh 1.3 (0.7-2.0) mmol/L Calcium (8.4-10.2) mg/dL Total Bilirubin (0.2-1.3) mg/dL AST (14-36) U/L ALT (4-34) U/L Alkaline Phosphatase (38-126) U/L Total Protein (6.3-8.2) g/dL Albumin (3.5-5.0) g/dL Amylase (30-110) U/L Lipase (23-300) U/L Urine Color Urine Appearance (Clear) Urine pH (5.0-8.0) Ur Specific Somers (1.001-1.035) Urine Protein (Negative) Urine Glucose (UA) (Negative) Urine Ketones (Negative) Urine Blood (Negative) Urine Nitrite (Negative) Urine Bilirubin (Negative) Urine Urobilinogen (<2.0) mg/dL Ur Leukocyte Esterase (Negative) Disposition Clinical Impression: Chronic abdominal pain Disposition: HOME SELF-CARE Condition: Good Instructions (If sedation given, give patient instructions): Abdominal Pain (ED) Additional Instructions: Follow up with PCP and surgeon. Report back to ER with any new or worsening symptoms Is patient prescribed a controlled substance at d/c from ED?: No Referrals: None,Stated [Primary Care Provider] - 1-2 days Ryan Bahena MD [STAFF PHYSICIAN] - 1-2 days Time of Disposition: 21:59
[2024-01-18] MEDS: ACETAMINOPHEN TAB 500 MG TAB PO STA (22:10)
[2024-01-18 22:18] VITALS: BP 128/78; PULSE 78; RESP 17; TEMP 98.2
== END 2024-01-18 22:17 | disposition home or self-care (01) ==
LOC: EC 18:02
DX: G89.29 Other chronic pain (principal); R10.9 Unspecified abdominal pain; Z88.2 Allergy status to sulfonamides; Z88.1 Allergy status to other antibiotic agents; Z91.09 Other allergy status, other than to drugs and biological substances; Z88.0 Allergy status to penicillin; Z88.8 Allergy status to other drugs, medicaments and biological substances
CPT/HCPCS: 36415; 80053; 82150; 83605; 83690; 85025; 81003; 74018; 99284; 96374; 96375; 96361; J2405; J2270

== ENCOUNTER 2024-01-20 13:32 | Day surgery (SDC) | payer OTHER ==
[2024-01-20 13:58] VITALS: TEMP 97
[2024-01-20] MEDS: LACTATED RINGERS 1,000 ML IV SCH (14:07)
[2024-01-20] MEDS: IV FLUID CONTINUATION 1,000 ML IV ONE (14:07)
[2024-01-20] MEDS ORDERED: PROPOFOL 10 MG/ML 20 ML VIAL IV ONE (16:32)
--- NOTE | 2024-01-20 16:44 | P.OP ---
Date of Procedure: 01/20/24 Preoperative Diagnosis: GERD Postoperative Diagnosis: hiatal hernia Antral gastritis Esophagitis Procedure(s) Performed: EGD Anesthesia: MAC Surgeon: Ryan Bahena Pathology: other (antrum, esophagus) Condition: stable Disposition: PACU Description of Procedure: the patient's placed on the endoscopy table in the lateral position. She received IV sedation. The gastro-/oropharynx passed in the esophagus and stomach. Scope was then placed through the pylorus. The first second portion duodenum appeared normal. Scope summer back the antrum and this appeared mildly inflamed. A biopsies was performed. The scope was then retroflexed the remainder the stomach appeared normal. The patient had a moderate size hiatal hernia. The GE junction was at 38 centimeters. The distal esophagus appeared inflamed. This was biopsied. The proximal esophagus appeared normal. Scope withdrawn for patient.
[2024-01-20 16:53] VITALS: RESP 16
[2024-01-20 17:21] VITALS: BP 120/82; PULSE 77
== END 2024-01-20 17:28 | disposition home or self-care (01) ==
LOC: ORWHC2ENDO 13:32
PROVIDERS: ATTEND Surgery
DX: K21.00 Gastro-esophageal reflux disease with esophagitis, without bleeding (principal); K29.50 Unspecified chronic gastritis without bleeding; K44.9 Diaphragmatic hernia without obstruction or gangrene; E66.01 Morbid (severe) obesity due to excess calories; Z68.39 Body mass index [BMI] 39.0-39.9, adult; Z88.0 Allergy status to penicillin; Z88.1 Allergy status to other antibiotic agents; Z88.2 Allergy status to sulfonamides; Z88.3 Allergy status to other anti-infective agents; Z91.09 Other allergy status, other than to drugs and biological substances; Z79.899 Other long term (current) drug therapy
CPT/HCPCS: 88305; 43239; J2704

== ENCOUNTER → 2024-01-22 | Outpatient (CLI) | payer OTHER ==
[2024-01-22 18:34] LABS: Basophils # (A) 0.01 X 10*3/uL (0.00-0.10); Basophils % (A) 0.2 %; Eosinophils # (A) 0.03 X 10*3/uL (0.04-0.35); Eosinophils % (A) 0.7 %; HCT 32.5 % (37.2-46.3); HGB 10.7 g/dL (12.0-15.0); Lymphocytes # (A) 1.39 X 10*3/uL (0.90-5.00); Lymphocytes % (A) 34.1 %; MCH 30.1 pg (27.0-32.0); MCHC 32.9 g/dL (32.0-37.0); MCV 91.5 FL (80.0-97.0); Mean Platelet Volume 10.4 FL (9.5-12.2); Monocytes # (A) 0.38 X 10*3/uL (0.20-1.00); Monocytes % (A) 9.3 %; NRBC Per 100 WBC 0 X 10*3/uL (0.00-0.01); Neutrophils # (A) 2.26 X 10*3/uL (1.80-7.70); Neutrophils % (A) 55.5 %; Platelet Count 191 X 10*3/uL (140-440); RBC 3.55 X 10*6/uL (4.10-5.20); RDW 12.6 % (11.5-14.5); WBC 4.08 X 10*3/uL (4.50-10.00)
== END | disposition home or self-care (01) ==
LOC: LABPAT 14:12
PROVIDERS: ATTEND Surgery
DX: Z01.818 Encounter for other preprocedural examination (principal); K21.00 Gastro-esophageal reflux disease with esophagitis, without bleeding
CPT/HCPCS: 36415; 85025; 93005

== ENCOUNTER 2024-01-27 05:54 | Observation (INO) | payer OTHER ==
[~2024-01-27 05:54] MED LIST changes: -IRON SUCROSE 100 MG in SODIUM CHLORIDE 0.9% 100 ML IVPB ONE; +LIDOCAINE 1% (10MG/ML) FOR IV START INTRADERMA PRN; -SODIUM CHLORIDE 0.9% 500 ML 500 ML in EMPTY BAG 1 BAG IV PRN
[2024-01-27] MEDS: IV FLUID CONTINUATION 1,000 ML IV ONE ×3 (07:05→09:07)
[2024-01-27] MEDS: LACTATED RINGERS 1,000 ML IV SCH ×2 (07:05→14:45)
[2024-01-27] MEDS: ACETAMINOPHEN TAB 500 MG TAB PO PRN (07:20)
[2024-01-27] MEDS: DEXAMETHASONE SOD PHOSPHATE 4 MG/ML 1 ML VIAL IV ONE (07:21)
[2024-01-27] MEDS: ONDANSETRON 4 MG/2 ML VIAL IVP ONE (07:22)
[2024-01-27] MEDS: HEPARIN SODIUM,PORCINE 5,000 UNIT/ML 1 ML VIAL SQ PRN (07:26)
[2024-01-27] MEDS: SCOPOLAMINE 1 MG/72 HR PATCH TRANSDERM ONE (07:27)
[2024-01-27] MEDS ORDERED: ROCURONIUM 10 MG/ML (5 ML VIAL) IV ONE (07:29)
[2024-01-27] MEDS ORDERED: PROPOFOL 10 MG/ML 20 ML VIAL IV ONE (07:29)
[2024-01-27] MEDS ORDERED: NEOSTIGMINE 1 MG/ML 10 ML VIAL ONE (07:29)
[2024-01-27] MEDS ORDERED: GLYCOPYRROLATE 0.2 MG/ML 2 ML VIAL ONE (07:29)
[2024-01-27] MEDS ORDERED: MIDAZOLAM 2 MG/2 ML VIAL ONE (07:29)
[2024-01-27] MEDS ORDERED: LIDOCAINE 1% INJ 10MG/ML (20 ML MDV) ONE (07:29)
[2024-01-27] MEDS ORDERED: KETAMINE HCL IN 0.9 % NACL 50 MG/5 ML SYRINGE ONE (07:29)
[2024-01-27] MEDS ORDERED: PHENYLEPHRINE-0.9% NACL SYG 1,000 MCG/10 ML SYRINGE ONE (07:29)
[2024-01-27] MEDS ORDERED: fentaNYL (PF) 50 MCG/ML 2 ML AMP ONE (07:29)
[2024-01-27] MEDS ORDERED: LIDOCAINE 4% LTA KIT (4 ML) TOPICAL ONE (07:29)
[2024-01-27] MEDS ORDERED: SUCCINYLCHOLINE CHLORIDE 200 MG/10 ML VIAL IV ONE (07:29)
[2024-01-27] MEDS: LIDOCAINE 1%-EPI 1:100,000 20 ML VIAL SQ ONE ×2 (08:10→08:34)
[2024-01-27] MEDS ORDERED: ACETAMINOPHEN TAB 325 MG TAB PO PRN (08:40)
[2024-01-27] MEDS ORDERED: NALOXONE 0.4 MG/ML 1 ML VIAL IV PRN (08:40)
[2024-01-27] MEDS: HYDROmorphone 0.5 MG/0.5 ML SYRINGE IVP PRN (09:20)
--- NOTE | 2024-01-27 11:26 | P.OP ---
Date of Procedure: 01/27/24 Preoperative Diagnosis: GERD Postoperative Diagnosis: GERD Procedure(s) Performed: laparoscopic Mónica fundoplication Anesthesia: CESAR Surgeon: Ryan Bahena Estimated Blood Loss (ml): 5 Pathology: none sent Condition: stable Disposition: PACU Description of Procedure: HThe patient was placed on the operating table in the supine position. The patient received general anesthesia. And was placed in dorsal lithotomy position. The patient was prepped and draped in the usual sterile fashion. The skin incision sites were anesthetized with 1% local Xylocaine. The skin was incised in the left periumbilical area and then using a blade less 5 mm trocar under direct visualization panel cavity was entered. After adequate insufflation the laparoscope was then placed into the peritoneal cavity. Next a 5 mm trochars placed in the right epigastric position. Another 5 millimeter trocar the right lateral position. Another 5 millimeter trocar in the left lateral position a 5 mm trocar is placed in the left epigastric position. And then the initial 5 mm trocar was exchanged for a 10 mm trocar. The left lateral lobe liver was retracted. The hernia was seen. The crural defect was then dissected using the Harmonic scissors device. A 360 crural dissection was performed the esophagus stomach was reduced back into the peritoneal Cavity. The crural defect was then closed using 2-0 Ethibond suture. Next the fundus of the stomach was mobilized using the [place] scissors device. and then a 58- Romanian bougie dilator was placed oropharynx passed into the esophagus and stomach the fundal plication wrap was then performed by grasping the fundus posteriorly and bringing it around the esophagus and stomach fundoplication was then performed using 2-0 Ethibond suture. Care was taken that the fundal location rested over top of the intra-abdominal esophagus. There was no injury seen to the stomach or esophagus. The dilator was then withdrawn. The abdomen was irrigated there is no bleeding seen. The trochars were then withdrawn and then skin incision sites were closed using 3-0 Monocryl suture Steri-Strips are applied. Patient thought procedure well and sent to recovery room in stable condition.
[2024-01-27] MEDS: HYDROcodone/APAP 5-325MG 1 EACH TAB PO PRN (14:49)
--- NOTE | 2024-01-27 23:47 | P.CONS ---
History of Present Illness - Reason for Consult Consult date: 01/27/24 Medical management - Chief Complaint Status post Ómnica fundoplication - History of Present Illness Patient is a 33-year-old female with a past medical history of PCOS, iron deficiency anemia, GERD and hiatal hernia and also history of anxiety/depression was admitted to the hospital for elective laparoscopic Mónica fundoplication. Patient is s/p procedure and tolerated very well. Postoperatively blood pressure down to 103/63 and pulse 97 respiration 16 and pulse ox 98% on room air. Patient was also complaining of tightness in the upper abdomen. Denies any chest pain. No complaints of shortness of breath. No nausea vomiting or diarrhea. Patient has been afebrile. Current laboratory data not available. Review of Systems Constitutional: Patient denies any fever or chills . No generalized weakness or weight loss. Abdomen: Patient denied nausea vomiting and diarrhea. Does have upper abdominal pain. Cardiovascular: Patient denies any chest pain or short of breath no palpitations. Respiratory: patient denied any cough or sputum production. No shortness of breath Neurologic: Patient denied any numbness or tingling. no headache. Musculoskeletal: Patient denies any complaints of joint swelling or deformity. Skin: Negative Psychiatric: Negative Endocrine: No heat or cold intolerance. No recent weight gain. Genitourinary: No dysuria or hematuria. All other 14 point ROS negative except the above Past Medical History Past Medical History: Blood Disorder, GERD/Reflux Additional Past Medical History / Comment(s): Endometriosis, polycystic ovarian syndrome. IRON DEFICIENCY ANEMIA. Stomach Ulcer. Hx ovarian cyst. History of Any Multi-Drug Resistant Organisms: None Reported Past Surgical History: Ablation, Section, Cholecystectomy, Hernia Repair, Hysterectomy, Tubal Ligation, Uterine Ablation Additional Past Surgical History / Comment(s): Laparoscopy X2, Section X3, right ovary and right tube removed, then total hysterectomy including left ovary and left fallopian tube, cyst removed from chest, ADHESION REMOVAL FROM PAST CSECTION, vaginal/pelvic biopsy. Scar tissure removal abdomen L upper lower Past Anesthesia/Blood Transfusion Reactions: No Reported Reaction Past Psychological History: Anxiety, Depression Smoking Status: Never smoker Past Alcohol Use History: Rare Past Drug Use History: None Reported - Past Family History Mother Family Medical History: Deep Vein Thrombosis (DVT), Hyperlipidemia Additional Family Medical History / Comment(s): Depression and anxiety. DVT to arm after surgery. Medications and Allergies Home Medications Medication Instructions Recorded Confirmed Type Ibuprofen [Motrin] 600 mg PO Q6HR PRN #40 tab 12/13/23 01/27/24 Rx Docusate [Colace] 100 mg PO BID PRN 12/26/23 01/27/24 History Omeprazole 20 mg PO BID 12/26/23 01/27/24 History Escitalopram [Lexapro] 10 mg PO AC-LUNCH 01/17/24 01/27/24 History Ondansetron [Zofran] 4 mg PO Q8HR PRN 01/17/24 01/27/24 History Allergies Allergy/AdvReac Type Severity Reaction Status Date / Time sulfamethoxazole Allergy Severe Anaphylaxis Verified 01/27/24 06:48 [From Bactrim] trimethoprim [From Bactrim] Allergy Severe Anaphylaxis Verified 01/27/24 06:48 adhesive tape Allergy Rash/Hives Verified 01/27/24 06:48 aloe vera Allergy Rash/Hives Verified 01/27/24 06:48 azithromycin Allergy Rash/Hives Verified 01/27/24 06:48 cephalexin Allergy Rash/Hives Verified 01/27/24 06:48 metronidazole [From Flagyl] Allergy Rash/Hives Verified 01/27/24 06:48 Penicillins Allergy Rash/Hives Verified 01/27/24 06:48 alprazolam [From Xanax] AdvReac MAKES Verified 01/27/24 06:48 PARANOID dicyclomine [From Bentyl] AdvReac constipatio Verified 01/27/24 06:48 n Physical Exam Vitals: Vital Signs Temp Pulse Pulse Pulse Resp BP BP 01/27/24 14:37 97.8 F 66 16 108/74 01/27/24 14:18 97 16 103/63 01/27/24 13:59 90 16 112/50 01/27/24 13:30 79 16 103/53 01/27/24 13:15 64 17 103/53 01/27/24 12:44 75 16 94/58 01/27/24 12:18 80 15 98/56 01/27/24 12:00 69 16 100/58 01/27/24 11:48 76 17 104/50 01/27/24 11:28 85 14 110/55 01/27/24 11:16 93 15 105/52 01/27/24 10:53 72 14 102/51 01/27/24 10:42 75 12 107/55 01/27/24 10:33 66 12 91/55 01/27/24 10:18 73 14 98/56 01/27/24 10:03 80 15 96/49 01/27/24 09:51 89 14 98/51 01/27/24 09:46 86 16 112/53 01/27/24 09:33 69 14 93/51 01/27/24 09:18 87 17 119/59 01/27/24 09:09 94 16 105/55 01/27/24 09:01 71 18 98/48 01/27/24 08:53 97.0 F L 76 14 91/44 01/27/24 06:56 97.6 F 64 20 140/83 Pulse Ox 01/27/24 14:37 96 01/27/24 14:18 98 01/27/24 13:59 100 01/27/24 13:30 99 01/27/24 13:15 99 01/27/24 12:44 98 01/27/24 12:18 98 01/27/24 12:00 99 01/27/24 11:48 99 01/27/24 11:28 99 01/27/24 11:16 100 01/27/24 10:53 97 01/27/24 10:42 99 01/27/24 10:33 98 01/27/24 10:18 100 01/27/24 10:03 100 01/27/24 09:51 100 01/27/24 09:46 100 01/27/24 09:33 100 01/27/24 09:18 99 01/27/24 09:09 98 01/27/24 09:01 100 01/27/24 08:53 100 01/27/24 06:56 96 Intake and Output 01/27/24 01/27/24 01/27/24 06:59 14:59 22:59 Intake Total 950 Output Total 5 Balance 945 Intake: IV 950 Output: Estimated Blood Loss 5 Other: Weight 85.7 kg PHYSICAL EXAMINATION: Patient is lying in the bed comfortably, no acute distress, awake alert and oriented.. HEENT: Normocephalic. Neck is supple. Pupils reactive. Nostrils clear. Oral cavity is moist. Neck reveals no JVD, carotid bruits, or thyromegaly. CHEST EXAMINATION: Trachea is central. Symmetrical expansion. Bibasilar diminished sounds. Lung morris clear to auscultation and percussion. CARDIAC: Normal S1, S2 with no gallops. No murmurs ABDOMEN: Soft. Mild tenderness in the upper abdomen. No guarding or rigidity. Bowel sounds present. No organomegaly. No abdominal bruits. Extremities: reveal no edema. No clubbing or cyanosis Neurologically awake, alert, oriented x3 with well-coordinated movements. No focal deficits noted Skin: No rash or skin lesions. Psychiatric: Coperative. Nonsuicidal Musculoskeletal: No joint swelling or deformity. Normal range of motion. Assessment and Plan Assessment: Status post Mónica fundoplication laparoscopic postoperative day 0 Severe GERD Positive ovarian syndrome Deficiency anemia History of gastric ulcer Anxiety/depression DVT prophylax with Lovenox subcu. Plan: Patient will be continued on current pain management, encourage incentive spirometry. Continue DVT prophylaxis and GI prophylaxis as per primary team. Continue home medications and follow-up closely. Symptomatic management for nausea. Follow-up CBC and BMP tomorrow. Further recommendations based on the clinical course. Thank you kindly for your consult.
[2024-01-28] MEDS: HYDROmorphone 1 MG/ML 1 ML SYRINGE IVP PRN (00:42)
[2024-01-28] MEDS: ENOXAPARIN 40 MG/0.4 ML SYRINGE SQ SCH (03:19)
[2024-01-28] MEDS: ONDANSETRON 4 MG/2 ML VIAL IVP PRN (03:32)
[2024-01-28 10:31] LABS: Basophils # (A) 0 X 10*3/uL (0.00-0.10); Basophils % (A) 0 %; Eosinophils # (A) 0 X 10*3/uL (0.04-0.35); Eosinophils % (A) 0 %; HCT 28.6 % (37.2-46.3); HGB 9.4 g/dL (12.0-15.0); Lymphocytes # (A) 0.94 X 10*3/uL (0.90-5.00); MCH 30.4 pg (27.0-32.0); MCHC 32.9 g/dL (32.0-37.0); MCV 92.6 FL (80.0-97.0); Mean Platelet Volume 10.9 FL (9.5-12.2); Monocytes # (A) 0.35 X 10*3/uL (0.20-1.00); Monocytes % (A) 7.1 %; NRBC Per 100 WBC 0 X 10*3/uL (0.00-0.01); Neutrophils # (A) 3.64 X 10*3/uL (1.80-7.70); Neutrophils % (A) 73.7 %; Platelet Count 180 X 10*3/uL (140-440); RBC 3.09 X 10*6/uL (4.10-5.20); RDW 12.8 % (11.5-14.5); WBC 4.94 X 10*3/uL (4.50-10.00)
[2024-01-28 10:48] LABS: BUN/Creat Ratio 9.38 Ratio (12.00-20.00); Blood Urea Nitrogen 7.5 mg/dL (9.0-27.0); Calcium 9.5 mg/dL (8.7-10.3); Carbon Dioxide 26.7 mmol/L (21.6-31.8); Chloride 106 mmol/L (96-109); Glucose 94 mg/dL (70-110); Potassium 4.5 mmol/L (3.5-5.5); Sodium 141 mmol/L (135-145)
--- NOTE | 2024-01-28 12:23 | P.PN ---
Subjective Progress Note Date: 01/28/24 Patient is postop day 1 from laparoscopic dislocation. Patient is feels tired. She has limited oral intake. She would like to stay another day for her recovery. On exam vital signs appear stable. Abdomen is soft. Incision sites are clean and intact. Patient is encouraged ambulate. She will try to increase her oral intake. We dissipate discharge home tomorrow. Objective - Vital Signs Vital signs: Vital Signs Temp 98.9 F 01/28/24 07:46 Pulse 68 01/28/24 07:46 Resp 16 01/28/24 07:46 BP 119/78 01/28/24 07:46 Pulse Ox 97 01/28/24 07:46 FiO2 Intake & Output 01/27/24 01/28/24 01/28/24 18:59 06:59 18:59 Intake Total 1350 Output Total 5 0 Balance 1345 0 Intake: IV 950 Intake, IV Titration 400 Amount Lactated Ringers 1,000 ml 400 @ 125 mls/hr IV .Q8H JAMIE Rx#:[id number] Output: Stool 0 Estimated Blood Loss 5 Other: Voiding Method Toilet # Voids 1 1 1 - Labs CBC & Chem 7: 01/28/24 06:35 01/28/24 06:35 Labs: Abnormal Lab Results - Last 24 Hours (Table) 01/28/24 01/28/24 Range/Units 06:35 06:35 RBC 3.09 L (4.10-5.20) X 10*6/uL Hgb 9.4 L (12.0-15.0) g/dL Hct 28.6 L (37.2-46.3) % Eosinophils # 0 L (0.04-0.35) X 10*3/uL BUN 7.5 L (9.0-27.0) mg/dL BUN/Creatinine Ratio 9.38 L (12.00-20.00) Ratio
--- NOTE | 2024-01-29 05:22 | P.PN ---
Subjective Progress Note Date: 01/28/24 - Reason for Consult Consult date: 01/27/24 Medical management - Chief Complaint Status post Mónica fundoplication - History of Present Illness Patient is a 33-year-old female with a past medical history of PCOS, iron deficiency anemia, GERD and hiatal hernia and also history of anxiety/depression was admitted to the hospital for elective laparoscopic Mónica fundoplication. Patient is s/p procedure and tolerated very well. Postoperatively blood pressure down to 103/63 and pulse 97 respiration 16 and pulse ox 98% on room air. Patient was also complaining of tightness in the upper abdomen. Denies any chest pain. No complaints of shortness of breath. No nausea vomiting or diarrhea. Patient has been afebrile. Current laboratory data not available. 01/28/2024 Patient is seen in follow-up today status post laparoscopic Niesen fundoplication. Patient is reporting some nausea with no vomiting and somewhat tolerating clears although not much of an appetite. Patient is requesting IV pain medications reporting that [place] is not helping. Recommended IV narcotics and increasing activity as tolerated. Recommend and discussed with patient about frequent walking. Patient is afebrile with no reported chest pain or shortness of breath. Review of systems: Constitutional: reports of fatigue, no fever, or chills Cardiovascular: No reports of chest pain or palpitations Respiratory: No reports of shortness of breath or cough GI: reports of nausea, no vomiting, or diarrhea, reports passing some gas, no bowel movement : No reports of dysuria or retention Neurovascular: reports of generalized weakness All medications have been reviewed PHYSICAL EXAMINATION: Patient is lying in the bed comfortably, no acute distress, awake alert and oriented.. Obese, well-developed HEENT: Normocephalic. Neck is supple. Pupils reactive. Nostrils clear. Oral cavity is moist. Neck reveals no JVD, carotid bruits, or thyromegaly. CHEST EXAMINATION: Trachea is central. Symmetrical expansion. Bibasilar diminished sounds. Lung morris clear to auscultation and percussion. CARDIAC: Normal S1, S2 with no gallops. No murmurs ABDOMEN: Soft. Mild tenderness in the upper abdomen. Slight guarding, no ri gidity. Bowel sounds present. No organomegaly. No abdominal bruits. Extremities: reveal no edema. No clubbing or cyanosis Neurologically awake, alert, oriented x3 with well-coordinated movements. No focal deficits noted Skin: No rash or skin lesions. Psychiatric: Cooperative. Non-suicidal Musculoskeletal: No joint swelling or deformity. Normal range of motion. Assessment: Status post Mónica fundoplication laparoscopic postoperative day 1 Severe GERD Polycystic ovarian syndrome Iron deficiency anemia History of gastric ulcer Anxiety/depression Obesity with a BMI 38.2 DVT prophylax with Lovenox subcu. GI prophylaxis Full code Plan: Patient will be continued on current pain management, recommend avoiding IV narcotics. Patient is maintained on [place] and Dilaudid has been discontinued encourage incentive spirometry at least 10 times every hour while awake. Continue DVT prophylaxis and GI prophylaxis as per primary team. Home medications have been reviewed and resumed as appropriate Symptomatic management for nausea. Encouraged to increase activity and frequent walking around the halls multiple times throughout the day and getting up out of the bed more often Patient currently maintained on clear liquids and slowly advancing as tolerated per surgery We will continue to follow with general surgery during hospitalization. Thank you kindly for this consultation Patient is medically stable once cleared by surgery for discharge The impression and plan of care has been dictated by Maite Sneed, Nurse Practitioner as directed. Dr. Nan MD I have performed a history and examination and MDM of this patient, discussed the same with the dictator, and agree with the dictator's assessment and plan as written ,documented as a scribe. Based on total visit time, I have performed more than 50% of the visit. Objective - Vital Signs Vital signs: Vital Signs Temp 98.9 F 01/28/24 07:46 Pulse 68 01/28/24 07:46 Resp 16 01/28/24 07:46 BP 119/78 01/28/24 07:46 Pulse Ox 97 01/28/24 07:46 FiO2 Intake & Output 01/27/24 01/28/24 01/28/24 18:59 06:59 18:59 Intake Total 1350 Output Total 5 0 Balance 1345 0 Intake: IV 950 Intake, IV Titration 400 Amount Lactated Ringers 1,000 ml 400 @ 125 mls/hr IV .Q8H JAMIE Rx#:[id number] Output: Stool 0 Estimated Blood Loss 5 Other: Voiding Method Toilet # Voids 1 1 1 - Labs CBC & Chem 7: 01/28/24 06:35 01/28/24 06:35 Labs: Abnormal Lab Results - Last 24 Hours (Table) 01/28/24 01/28/24 Range/Units 06:35 06:35 RBC 3.09 L (4.10-5.20) X 10*6/uL Hgb 9.4 L (12.0-15.0) g/dL Hct 28.6 L (37.2-46.3) % Eosinophils # 0 L (0.04-0.35) X 10*3/uL BUN 7.5 L (9.0-27.0) mg/dL BUN/Creatinine Ratio 9.38 L (12.00-20.00) Ratio
[2024-01-29 12:54] VITALS: BP 112/76; PULSE 67; RESP 15; TEMP 97.9
--- NOTE | 2024-01-29 12:58 | P.DS ---
Providers Date of admission: 01/27/24 05:55 Expected date of discharge: 01/29/24 Attending physician: Ryan Bahena Consults: 01/27/24 08:40 Consult Physician Routine Consulting Provider: Andie Pate Consult Reason/Comments: med Do you want consulting provider notified?: Yes Primary care physician: Stated None Hospital Course: Discharge diagnosis 1. GERD Hospital course This is a 33-year-old female with history of GERD. She is status post laparoscopic Niesen fundoplication. Patient is tolerating diet. Her pain is controlled. She has been up and ambulating. She is having flatus. She is afebrile. She is stable for discharge. Please refer to chart for any further details. Physician Instructor [employer] note has been reviewed by physician. Signing provider agrees with the documented findings, assessment, and plan of care. Patient Condition at Discharge: Stable Plan - Discharge Summary Discharge Rx Participant: Yes New Discharge Prescriptions: New HYDROcodone/APAP 5-325MG [[place] 5-325] 1 tab PO Q6HR PRN 3 Days #12 tab PRN Reason: Pain Continue Ibuprofen [Motrin] 600 mg PO Q6HR PRN #40 tab PRN Reason: Pain Omeprazole 20 mg PO BID Escitalopram [Lexapro] 10 mg PO AC-LUNCH Docusate [Colace] 100 mg PO BID PRN PRN Reason: Constipation Ondansetron [Zofran] 4 mg PO Q8HR PRN PRN Reason: Nausea Discharge Medication List Ibuprofen [Motrin] 600 mg PO Q6HR PRN #40 tab 12/13/23 [Rx] Docusate [Colace] 100 mg PO BID PRN 12/26/23 [History] Omeprazole 20 mg PO BID 12/26/23 [History] Escitalopram [Lexapro] 10 mg PO AC-LUNCH 01/17/24 [History] Ondansetron [Zofran] 4 mg PO Q8HR PRN 01/17/24 [History] HYDROcodone/APAP 5-325MG [[place] 5-325] 1 tab PO Q6HR PRN 3 Days #12 tab 01/29/24 [Rx] Follow up Appointment(s)/Referral(s): Ryan Bahena MD [STAFF PHYSICIAN] - 1 Week Activity/Diet/Wound Care/Special Instructions: No driving while taking [place] No lifting over 10 pounds Shower daily. No soaking or tub baths for 2 weeks Very light activity until you are reevaluated at your follow up appointment with your surgeon No straws or carbonated beverages Stay on a Full liquid diet for the next 2 weeks Discharge Disposition: HOME SELF-CARE
--- NOTE | 2024-01-30 10:48 | P.PN ---
Subjective Progress Note Date: 01/29/24 - Reason for Consult Consult date: 01/27/24 Medical management - Chief Complaint Status post Mónica fundoplication - History of Present Illness Patient is a 33-year-old female with a past medical history of PCOS, iron deficiency anemia, GERD and hiatal hernia and also history of anxiety/depression was admitted to the hospital for elective laparoscopic Mónica fundoplication. Patient is s/p procedure and tolerated very well. Postoperatively blood pressure down to 103/63 and pulse 97 respiration 16 and pulse ox 98% on room air. Patient was also complaining of tightness in the upper abdomen. Denies any chest pain. No complaints of shortness of breath. No nausea vomiting or diarrhea. Patient has been afebrile. Current laboratory data not available. 01/28/2024 Patient is seen in follow-up today status post laparoscopic Niesen fundoplication. Patient is reporting some nausea with no vomiting and somewhat tolerating clears although not much of an appetite. Patient is requesting IV pain medications reporting that [place] is not helping. Recommended IV narcotics and increasing activity as tolerated. Recommend and discussed with patient about frequent walking. Patient is afebrile with no reported chest pain or shortness of breath. 01/29/2024 Patient seen in follow-up this morning working on discharge planning. Patient continues to report abdominal discomfort and has been getting up more fr equently. Patient encouraged to continue using incentive spirometer even at home at least 10 times every hour while awake. Patient to follow-up with primary care provider on discharge as well as general surgery outpatient as instructed and scheduled. Patient is medically stable once discharged from general surgery. Patient is afebrile with no reported chest pain or shortness of breath. Continue current diet per general surgery and slowly advance as tolerated. Review of systems: Constitutional: reports of fatigue, no fever, or chills Cardiovascular: No reports of chest pain or palpitations Respiratory: No re.ports of shortness of breath or cough GI: reports of nausea, no vomiting, or diarrhea, reports passing some gas, no bowel movement : No reports of dysuria or retention Neurovascular: reports of generalized weakness All medications have been reviewed PHYSICAL EXAMINATION: Patient is sitting up in the bed comfortably, no acute distress, awake alert and oriented.. Obese, well-developed HEENT: Normocephalic. Neck is supple. Pupils reactive. Nostrils clear. Oral cavity is moist. Neck reveals no JVD, carotid bruits, or thyromegaly. CHEST EXAMINATION: Trachea is central. Symmetrical expansion. Bibasilar diminished sounds. Lung morris clear to auscultation and percussion. CARDIAC: Normal S1, S2 with no gallops. No murmurs ABDOMEN: Soft. Mild tenderness in the upper abdomen. Slight guarding, no rigidity. Bowel sounds present. No organomegaly. No abdominal bruits. Extremities: reveal no edema. No clubbing or cyanosis Neurologically awake, alert, oriented x3 with well-coordinated movements. No focal deficits noted Skin: No rash or skin lesions. Psychiatric: Cooperative. Non-suicidal Musculoskeletal: No joint swelling or deformity. Normal range of motion. Assessment: Status post Mónica fundoplication laparoscopic postoperative day 2 Severe GERD Polycystic ovarian syndrome Iron deficiency anemia History of gastric ulcer Anxiety/depression Obesity with a BMI 38.2 DVT prophylax with Lovenox subcu. GI prophylaxis Full code Plan: Patient will be continued on current pain management, recommend avoiding IV narcotics. Patient is maintained on [place] and Dilaudid has been discontinued encourage incentive spirometry at least 10 times every hour while awake. Continue DVT prophylaxis and GI prophylaxis as per primary team. Home medications have been reviewed and resumed as appropriate Symptomatic management for nausea. Encouraged to increase activity and frequent walking around the halls multiple times throughout the day and getting up out of the bed more often Patient currently maintained on clear liquids and slowly advancing as tolerated per surgery We will continue to follow with general surgery during hospitalization. Thank you kindly for this consultation Patient is medically stable once cleared by surgery for discharge. Patient undergoing discharge planning today. The impression and plan of care has been dictated by Maite Sneed, Nurse Practitioner as directed. Dr. Nan MD I have performed a history and examination and MDM of this patient, discussed the same with the dictator, and agree with the dictator's assessment and plan as written ,documented as a scribe. Based on total visit time, I have performed more than 50% of the visit. Objective - Vital Signs Vital signs: Vital Signs Temp 97.9 F 01/29/24 12:41 Pulse 67 01/29/24 12:41 Resp 15 01/29/24 12:41 BP 112/76 01/29/24 12:41 Pulse Ox 94 L 01/29/24 12:41 FiO2 Intake & Output 01/29/24 01/30/24 01/30/24 18:59 06:59 18:59 Other: Voiding Method Toilet - Labs CBC & Chem 7: 01/28/24 06:35 01/28/24 06:35
== END 2024-01-29 14:16 | disposition home or self-care (01) ==
LOC: OR 05:54 → 5NMEDONC 05:55 → OR 05:55 → 5NMEDONC 13:41
PROVIDERS: ADMIT Surgery; ATTEND Surgery
DX: K44.9 Diaphragmatic hernia without obstruction or gangrene (principal); K21.00 Gastro-esophageal reflux disease with esophagitis, without bleeding; E28.2 Polycystic ovarian syndrome; D50.9 Iron deficiency anemia, unspecified; N80.9 Endometriosis, unspecified; K66.0 Peritoneal adhesions (postprocedural) (postinfection); F41.9 Anxiety disorder, unspecified; F32.A Depression, unspecified; E66.9 Obesity, unspecified; Z68.38 Body mass index [BMI] 38.0-38.9, adult; Z79.899 Other long term (current) drug therapy; Z88.0 Allergy status to penicillin; Z88.2 Allergy status to sulfonamides; Z88.1 Allergy status to other antibiotic agents; Z88.3 Allergy status to other anti-infective agents; Z88.8 Allergy status to other drugs, medicaments and biological substances; Z91.048 Other nonmedicinal substance allergy status; Z87.11 Personal history of peptic ulcer disease; Z90.710 Acquired absence of both cervix and uterus; Z98.51 Tubal ligation status; Z98.891 History of uterine scar from previous surgery; Z98.890 Other specified postprocedural states
CPT/HCPCS: 43280; 96372; 80048; 85025; G0378 ×2; J2250; J0330; J1644; J1100; J2710; J0690; J2405 ×3; J2001; J1650; J3010; J1170 ×2; J2704; J2371; J1596

== ENCOUNTER 2024-01-31 18:31 | Emergency (ER) | payer OTHER ==
--- NOTE | 2024-01-31 19:00 | ED ---
General Adult HPI - General Chief complaint: Nausea/Vomiting/Diarrhea Stated complaint: Post op, diarrhea Time Seen by Provider: 01/31/24 18:43 Source: patient Mode of arrival: ambulatory Limitations: no limitations - History of Present Illness Initial comments: Dictation was produced using in[employer] dictation software. please excuse any grammatical, word or spelling errors. Chief Complaint: 33-year-old female diarrhea nausea History of Present Illness: Patient 33-year-old female states that she is here for diarrhea. Patient had hiatal hernia procedure done by Dr. Turner Roy on Saturday. Patient states that since then she has been having what she reports as instantaneous diarrhea after she eats. Patient states she feels nauseated. She has been on a liquid diet. Patient denies any fever. States that she does not have any significant abdominal pain. The ROS documented in this emergency department record has been reviewed and confirmed by me. Those systems with pertinent positive or negative responses have been documented in the HPI. All other systems are other negative and/or noncontributory. - Related Data Home Medications Medication Instructions Recorded Confirmed Docusate [Colace] 100 mg PO BID PRN 12/26/23 01/27/24 Omeprazole 20 mg PO BID 12/26/23 01/27/24 Escitalopram [Lexapro] 10 mg PO AC-LUNCH 01/17/24 01/27/24 Ondansetron [Zofran] 4 mg PO Q8HR PRN 01/17/24 01/27/24 Previous Rx's Medication Instructions Recorded Ibuprofen [Motrin] 600 mg PO Q6HR PRN #40 tab 12/13/23 HYDROcodone/APAP 5-325MG [[place] 1 tab PO Q6HR PRN 3 Days #12 tab 01/29/24 5-325] Ondansetron Odt [Zofran Odt] 4 mg PO Q8HR PRN #12 tab 01/31/24 Allergies Allergy/AdvReac Type Severity Reaction Status Date / Time sulfamethoxazole Allergy Severe Anaphylaxis Verified 01/31/24 18:42 [From Bactrim] trimethoprim [From Bactrim] Allergy Severe Anaphylaxis Verified 01/31/24 18:42 adhesive tape Allergy Rash/Hives Verified 01/31/24 18:42 aloe vera Allergy Rash/Hives Verified 01/31/24 18:42 azithromycin Allergy Rash/Hives Verified 01/31/24 18:42 cephalexin Allergy Rash/Hives Verified 01/31/24 18:42 metronidazole [From Flagyl] Allergy Rash/Hives Verified 01/31/24 18:42 Penicillins Allergy Rash/Hives Verified 01/31/24 18:42 alprazolam [From Xanax] AdvReac MAKES Verified 01/31/24 18:42 PARANOID dicyclomine [From Bentyl] AdvReac constipatio Verified 01/31/24 18:42 n Review of Systems ROS Statement: Those systems with pertinent positive or pertinent negative responses have been documented in the HPI. ROS Other: All systems not noted in ROS Statement are negative. Past Medical History Past Medical History: Blood Disorder, GERD/Reflux Additional Past Medical History / Comment(s): Endometriosis, polycystic ovarian syndrome. IRON DEFICIENCY ANEMIA. Stomach Ulcer. Hx ovarian cyst. History of Any Multi-Drug Resistant Organisms: None Reported Past Surgical History: Ablation, Section, Cholecystectomy, Hernia Repair, Hysterectomy, Tubal Ligation, Uterine Ablation Additional Past Surgical History / Comment(s): Laparoscopy X2, Section X3, right ovary and right tube removed, then total hysterectomy including left ovary and left fallopian tube, cyst removed from chest, ADHESION REMOVAL FROM PAST CSECTION, vaginal/pelvic biopsy. Scar tissure removal abdomen L upper lower Past Anesthesia/Blood Transfusion Reactions: No Reported Reaction Past Psychological History: Anxiety, Depression Smoking Status: Never smoker Past Alcohol Use History: Rare Past Drug Use History: None Reported - Past Family History Mother Family Medical History: Deep Vein Thrombosis (DVT), Hyperlipidemia Additional Family Medical History / Comment(s): Depression and anxiety. DVT to arm after surgery. General Exam - General Exam Comments Initial Comments: PHYSICAL EXAM: General Impression: Alert and oriented x3, not in acute distress HEENT: Normocephalic atraumatic, extra-ocular movements intact, pupils equal and reactive to light bilaterally, mucous membranes moist. Cardiovascular: Heart regular rate and rhythm Chest: Able to complete full sentences, no retractions, no tachypnea Abdomen: abdomen soft, non-tender, non-distended, no organomegaly Musculoskeletal: Pulses present and equal in all extremities, no peripheral edema Motor: no focal deficits noted Neurological: CN II-XII grossly intact, no focal motor or sensory deficits noted Skin: Intact with no visualized rashes, surgical sites clean dry and intact Psych: Normal affect and mood Limitations: no limitations Course Vital Signs 01/31/24 01/31/24 18:40 19:29 Temperature 98.3 F Pulse Rate 82 97 Respiratory 20 16 Rate Blood Pressure 138/84 O2 Sat by Pulse 99 96 Oximetry Medical Decision Making - Medical Decision Making Was pt. sent in by a medical professional or institution (, PA, ENVIRONMENTAL HEALTH MANAGER, urgent care, hospital, or usp...) When possible be specific @ -No Did you speak to anyone other than the patient for history (EMS, parent, family, police, friend...)? What history was obtained from this source @ -No Did you review nursing and triage notes (agree or disagree)? Why? @ -I reviewed and agree with nursing and triage notes Were old charts reviewed (outside hosp., previous admission, EMS record, old EKG, old radiological studies, urgent care reports/EKG's, usp records)? Report findings @ -No old charts were reviewed Differential Diagnosis (chest pain, altered mental status, abdominal pain women, abdominal pain men, vaginal bleeding, musculoskeletal, weakness, fever, dyspnea, syncope, headache, dizziness, GI bleed, back pain, seizure, CVA, palpatations, mental health)? @ -Differential Abdominal Pain Women: Appendicitis, Cholecystitis, diverticulosis, ischemic bowel, pancreatitis, hepatitis, UTI, gastroenteritis, AAA, incarcerated hernia, bowel obstruction, constipation, inflammatory bowel, hepatitis, peptic ulcer disease, splenic infarction, perforated viscus, vulvitis, ovarian torsion, PID, kidney stone, placenta abruption, this is not meant to be an all-inclusive list EKG interpreted by me (3pts min.). @ -None done X-rays interpreted by me (1pt min.). @ -None done CT interpreted by me (1pt min.). @ -None done U/S interpreted by me (1pt. min.). @ -None done What testing was considered but not performed or refused? (CT, X-rays, U/S, labs)? Why? @ -None What meds were considered but not given or refused? Why? @ -None Was smoking cessation discussed for >3mins.? @ -No Were there social determinants of health that impacted care today? How? (Homelessness, low income, unemployed, alcoholism, drug addiction, tejeda sportation, low edu. Level, literacy, decrease access to med. care, shelter, rehab)? @ -No Was there de-escalation of care discussed even if they declined (Discuss DNR or withdrawal of care, Hospice)? DNR status @ -No What co-morbidities impacted this encounter? (DM, HTN, Smoking, COPD, CAD, Cancer, CVA, ARF, Chemo, Hep., AIDS, mental health diagnosis, sleep apnea, morbid obesity)? @ -None Was patient admitted / discharged? Hospital course, mention meds given and route, prescriptions, significant lab abnormalities, going to OR and other pertinent info. @ -33-year-old female presents to the emergency department with diarrhea and nausea. She just had hiatal hernia surgery. Vital signs are stable. Laboratory evaluation is within acceptable limits. Patient well-appearing at the bedside did not have any diarrhea while in the ER. Patient given analgesics and antiemetics with improvement of symptoms. Patient agreeable to discharge advised follow-up with primary surgeon. Did you discuss the management of the patient with other professionals (professionals i.e. , PA, ENVIRONMENTAL HEALTH MANAGER, lab, RT, psych nurse, social service agency director, handyperson, teacher, retail loss prevention officer, rn case manager hospice)? Give summary @ -No Was critical care preformed (if so, how long)? @ -No Undiagnosed new problem with uncertain prognosis? @ -No Drug Therapy requiring intensive monitoring for toxicity (Heparin, Nitro, Insulin, Cardizem)? @ -No Were any procedures done? @ -No Diagnosis/symptom? Acute, or Chronic, or Acute on Chronic? Uncomplicated (without systemic symptoms) or Complicated (systemic symptoms)? @ -Postoperative diarrhea Side effects of treatment? @ -No Exacerbation, Progression, or Severe Exacerbation? @ -No Poses a threat to life or bodily function? How? (Chest pain, [place], [place], pneumonia, PE, COPD, DKA, ARF, appy, cholecystitis, CVA, Diverticulitis, Homicidal, Suicidal, threat to staff... and all critical care pts) @ -No - Lab Data Result diagrams: 01/31/24 19:13 01/31/24 19:13 Lab Results 01/31/24 01/31/24 Range/Units 19:13 19:13 WBC 4.1 (3.8-10.6) k/uL RBC 3.55 L (3.80-5.40) m/uL Hgb 10.9 L (11.4-16.0) gm/dL Hct 32.7 L (34.0-46.0) % MCV 92.0 (80.0-100.0) fL MCH 30.8 (25.0-35.0) pg MCHC 33.4 (31.0-37.0) g/dL RDW 13.0 (11.5-15.5) % Plt Count 186 (150-450) k/uL MPV 7.6 Neutrophils % 59 % Lymphocytes % 30 % Monocytes % 6 % Eosinophils % 4 % Basophils % 0 % Neutrophils # 2.4 (1.3-7.7) k/uL Lymphocytes # 1.2 (1.0-4.8) k/uL Monocytes # 0.2 (0-1.0) k/uL Eosinophils # 0.2 (0-0.7) k/uL Basophils # 0.0 (0-0.2) k/uL Sodium 136 L (137-145) mmol/L Potassium 3.4 L (3.5-5.1) mmol/L Chloride 103 (98-107) mmol/L Carbon Dioxide 28 (22-30) mmol/L Anion Gap 5 mmol/L BUN 13 (7-17) mg/dL Creatinine 0.74 (0.52-1.04) mg/dL Est GFR (CKD-EPI)AfAm >90 (>60 ml/min/1.73 sqM) Est GFR (CKD-EPI)NonAf >90 (>60 ml/min/1.73 sqM) Glucose 96 (74-99) mg/dL Calcium 9.4 (8.4-10.2) mg/dL Total Bilirubin 1.0 (0.2-1.3) mg/dL AST 39 H (14-36) U/L ALT 25 (4-34) U/L Alkaline Phosphatase 131 H (38-126) U/L Total Protein 6.3 (6.3-8.2) g/dL Albumin 4.1 (3.5-5.0) g/dL Disposition Clinical Impression: Diarrhea Disposition: HOME SELF-CARE Condition: Fair Instructions (If sedation given, give patient instructions): Acute Diarrhea (ED) Prescriptions: Ondansetron Odt [Zofran Odt] 4 mg PO Q8HR PRN #12 tab PRN Reason: Nausea Is patient prescribed a controlled substance at d/c from ED?: No Referrals: Ryan Bahena MD [STAFF PHYSICIAN] - 1-2 days Time of Disposition: 20:15
[2024-01-31 19:18] LABS: Basophils % (A) 0 %; Eosinophils # (A) 0.2 k/uL (0-0.7); Eosinophils % (A) 4 %; HCT 32.7 % (34.0-46.0); HGB 10.9 gm/dL (11.4-16.0); Lymphocytes # (A) 1.2 k/uL (1.0-4.8); Lymphocytes % (A) 30 %; MCH 30.8 pg (25.0-35.0); MCHC 33.4 g/dL (31.0-37.0); Mean Platelet Volume 7.6; Monocytes # (A) 0.2 k/uL (0-1.0); Monocytes % (A) 6 %; Neutrophils # (A) 2.4 k/uL (1.3-7.7); Neutrophils % (A) 59 %; Platelet Count 186 k/uL (150-450); RBC 3.55 m/uL (3.80-5.40); WBC 4.1 k/uL (3.8-10.6)
[2024-01-31] MEDS: HYDROmorphone 1 MG/ML 1 ML SYRINGE IVP STA ×2 (19:28→20:25)
[2024-01-31] MEDS: ONDANSETRON 4 MG/2 ML VIAL IVP STA (19:28)
[2024-01-31] MEDS: SODIUM CHLORIDE 0.9% 1,000 ML IV STA (19:28)
[2024-01-31 19:35] LABS: ALT 25 U/L (4-34); AST 39 U/L (14-36); African American GFR (CKD) >90 (>60 ml/min/1.73 sqM); Albumin 4.1 g/dL (3.5-5.0); Alkaline Phosphatase 131 U/L (38-126); Anion Gap 5 mmol/L; Blood Urea Nitrogen 13 mg/dL (7-17); Calcium 9.4 mg/dL (8.4-10.2); Carbon Dioxide 28 mmol/L (22-30); Chloride 103 mmol/L (98-107); Glucose 96 mg/dL (74-99); Non-African American GFR(CKD) >90 (>60 ml/min/1.73 sqM); Potassium 3.4 mmol/L (3.5-5.1); Sodium 136 mmol/L (137-145); Total Protein 6.3 g/dL (6.3-8.2)
[2024-01-31 19:40] VITALS: RESP 16
[2024-01-31] MEDS: ONDANSETRON 4 MG ODT STARTER PACK 2 TAB BTL PO STA (20:26)
[2024-01-31 20:32] VITALS: BP 127/76; PULSE 88; TEMP 98.1
== END 2024-01-31 20:36 | disposition home or self-care (01) ==
LOC: EC 18:31
DX: R19.7 Diarrhea, unspecified (principal); Z98.890 Other specified postprocedural states; Z88.2 Allergy status to sulfonamides; Z88.1 Allergy status to other antibiotic agents; Z88.0 Allergy status to penicillin; Z88.8 Allergy status to other drugs, medicaments and biological substances
CPT/HCPCS: 99284; 96374; 96375; 96376; 96361; 36415; 80053; 85025; J2405; J1170; S0119

== ENCOUNTER 2024-02-01 16:43 | Emergency (ER) | payer OTHER ==
[2024-02-01 16:52] VITALS: RESP 18
--- NOTE | 2024-02-01 17:37 | ED ---
General Adult HPI - General Chief complaint: Recheck/Abnormal Lab/Rx Stated complaint: post op complication, abd Time Seen by Provider: 02/01/24 16:53 Source: patient, RN notes reviewed Mode of arrival: ambulatory Limitations: no limitations - History of Present Illness Initial comments: 33-year-old female presents to the emergency department for evaluation surgical site discomfort. She states that this started after she was helping her uncle off the ground. Patient states that she had hiatal hernia surgery on Saturday with Dr. Bahena. She reports discomfort in two of her incision sites. Denies any opening or drainage from the areas. - Related Data Home Medications Medication Instructions Recorded Confirmed Docusate [Colace] 100 mg PO BID PRN 12/26/23 01/27/24 Omeprazole 20 mg PO BID 12/26/23 01/27/24 Escitalopram [Lexapro] 10 mg PO AC-LUNCH 01/17/24 01/27/24 Ondansetron [Zofran] 4 mg PO Q8HR PRN 01/17/24 01/27/24 Previous Rx's Medication Instructions Recorded Ibuprofen [Motrin] 600 mg PO Q6HR PRN #40 tab 12/13/23 HYDROcodone/APAP 5-325MG [[place] 1 tab PO Q6HR PRN 3 Days #12 tab 01/29/24 5-325] Ondansetron Odt [Zofran Odt] 4 mg PO Q8HR PRN #12 tab 01/31/24 Allergies Allergy/AdvReac Type Severity Reaction Status Date / Time sulfamethoxazole Allergy Severe Anaphylaxis Verified 02/01/24 16:52 [From Bactrim] trimethoprim [From Bactrim] Allergy Severe Anaphylaxis Verified 02/01/24 16:52 adhesive tape Allergy Rash/Hives Verified 02/01/24 16:52 aloe vera Allergy Rash/Hives Verified 02/01/24 16:52 azithromycin Allergy Rash/Hives Verified 02/01/24 16:52 cephalexin Allergy Rash/Hives Verified 02/01/24 16:52 metronidazole [From Flagyl] Allergy Rash/Hives Verified 02/01/24 16:52 Penicillins Allergy Rash/Hives Verified 02/01/24 16:52 alprazolam [From Xanax] AdvReac MAKES Verified 02/01/24 16:52 PARANOID dicyclomine [From Bentyl] AdvReac constipatio Verified 02/01/24 16:52 n Review of Systems ROS Statement: Those systems with pertinent positive or pertinent negative responses have been documented in the HPI. ROS Other: All systems not noted in ROS Statement are negative. Past Medical History Past Medical History: Blood Disorder, GERD/Reflux Additional Past Medical History / Comment(s): Endometriosis, polycystic ovarian syndrome. IRON DEFICIENCY ANEMIA. Stomach Ulcer. Hx ovarian cyst. History of Any Multi-Drug Resistant Organisms: None Reported Past Surgical History: Ablation, Section, Cholecystectomy, Hernia Repair, Hysterectomy, Tubal Ligation, Uterine Ablation Additional Past Surgical History / Comment(s): Laparoscopy X2, Section X3, right ovary and right tube removed, then total hysterectomy including left ovary and left fallopian tube, cyst removed from chest, ADHESION REMOVAL FROM PAST CSECTION, vaginal/pelvic biopsy. Scar tissure removal abdomen L upper lower Past Anesthesia/Blood Transfusion Reactions: No Reported Reaction Past Psychological History: Anxiety, Depression Smoking Status: Never smoker Past Alcohol Use History: Rare Past Drug Use History: None Reported - Past Family History Mother Family Medical History: Deep Vein Thrombosis (DVT), Hyperlipidemia Additional Family Medical History / Comment(s): Depression and anxiety. DVT to arm after surgery. General Exam Limitations: no limitations General appearance: alert, in no apparent distress Head exam: Present: atraumatic, normocephalic, normal inspection Eye exam: Present: normal appearance, PERRL, EOMI. Absent: scleral icterus, co njunctival injection, periorbital swelling ENT exam: Present: normal exam, mucous membranes moist Neck exam: Present: normal inspection. Absent: tenderness, meningismus, lymphadenopathy Respiratory exam: Present: normal lung sounds bilaterally. Absent: respiratory distress, wheezes, rales, rhonchi, stridor Cardiovascular Exam: Present: regular rate, normal rhythm, normal heart sounds. Absent: systolic murmur, diastolic murmur, rubs, gallop, clicks GI/Abdominal exam: Present: soft, normal bowel sounds, other (6 surgical site incisions with mild tenderness to palpation, no palpable masses, no visible dehiscence ). Absent: distended, tenderness, guarding, rebound, rigid Extremities exam: Present: normal inspection, full ROM, normal capillary refill. Absent: tenderness, pedal edema, joint swelling, calf tenderness Neurological exam: Present: alert, oriented X3 Psychiatric exam: Present: normal affect, normal mood Skin exam: Present: warm, dry, normal color. Absent: rash Course Vital Signs 02/01/24 02/01/24 16:49 17:45 Temperature 98.9 F 97.9 F Pulse Rate 94 84 Respiratory 18 18 Rate Blood Pressure 137/102 128/82 O2 Sat by Pulse 99 96 Oximetry Medical Decision Making - Medical Decision Making Was pt. sent in by a medical professional or institution (, [facility], MARBLE POLISHER, urgent care, hospital, or usp...) When possible be specific @ -No Did you speak to anyone other than the patient for history (EMS, parent, family, police, friend...)? What history was obtained from this source @ -No Did you review nursing and triage notes (agree or disagree)? Why? @ -I reviewed and agree with nursing and triage notes Were old charts reviewed (outside hosp., previous admission, EMS record, old EKG, old radiological studies, urgent care reports/EKG's, usp records)? Report findings @ -No old charts were reviewed Differential Diagnosis (chest pain, altered mental status, abdominal pain women, abdominal pain men, vaginal bleeding, weakness, fever, dyspnea, syncope, headache, dizziness, GI bleed, back pain, seizure, CVA, palpatations, mental health, musculoskeletal)? @ -Differential Abdominal Pain Women: Appendicitis, Cholecystitis, diverticulosis, ischemic bowel, pancreatitis, hepatitis, UTI, gastroenteritis, AAA, incarcerated hernia, bowel obstruction, constipation, inflammatory bowel, hepatitis, peptic ulcer disease, splenic infarction, perforated viscus, vulvitis, ovarian torsion, PID, kidney stone, placenta abruption, this is not meant to be an all-inclusive list EKG interpreted by me (3pts min.). @ -None X-rays interpreted by me (1pt min.). @ -None done CT interpreted by me (1pt min.). @ -None done U/S interpreted by me (1pt. min.). @ -None done What testing was considered but not performed or refused? (CT, X-rays, U/S, labs)? Why? @ -None What meds were considered but not given or refused? Why? @ -None Did you discuss the management of the patient with other professionals (professionals i.e. , ANALI, MARBLE POLISHER, lab, RT, psych nurse, social services, research assistant, teacher, hydrological technical officer, embedded case manager)? Give summary @ -No Was smoking cessation discussed for >3mins.? @ -No Was critical care preformed (if so, how long)? @ -No Were there social determinants of health that impacted care today? How? (H omelessness, low income, unemployed, alcoholism, drug addiction, transportation, low edu. Level, literacy, decrease access to med. care, senior living, rehab)? @ -No Was there de-escalation of care discussed even if they declined (Discuss DNR or withdrawal of care, Hospice)? DNR status @ -No What co-morbidities impacted this encounter? (DM, HTN, Smoking, COPD, CAD, Cancer, CVA, ARF, Chemo, Hep., AIDS, mental health diagnosis, sleep apnea, morbid obesity)? @ -None Was patient admitted / discharged? Hospital course, mention meds given and route, prescriptions, significant lab abnormalities, going to OR and other pertinent info. @ -Discharge. Patient presented to the emergency department for evaluation of pain around her surgical incisions. On examination, there is no palpable masses or visible wound dehiscence. Patient is not having any other abdominal symptoms. She denies nausea pain vomiting. Patient provided medication for pain control while in the emergency department and advised to follow-up with her surgeon. Patient is understanding agreeable plan. Patient stable at time of discharge. Case discussed with Dr. Araujo Undiagnosed new problem with uncertain prognosis? @ -No Drug Therapy requiring intensive monitoring for toxicity (Heparin, Nitro, Insulin, Cardizem)? @ -No Were any procedures done? @ -No Diagnosis/symptom? @ -Surgical site pain Acute, or Chronic, or Acute on Chronic? @ -acute Uncomplicated (without systemic symptoms) or Complicated (systemic symptoms)? @ -uncomplicated Side effects of treatment? @ -No Exacerbation, Progression, or Severe Exacerbation? @ -No Poses a threat to life or bodily function? How? (Chest pain, [place], [place], pneumonia, PE, COPD, DKA, ARF, appy, cholecystitis, CVA, Diverticulitis, Homicidal, Suicidal, threat to staff... and all critical care pts) @ -No Disposition Clinical Impression: Pain at surgical incision Disposition: HOME SELF-CARE Condition: Stable Instructions (If sedation given, give patient instructions): Laparoscopic Hiatal Hernia Repair (DC) Additional Instructions: Please follow up with Dr. Bahena. Return to the emergency department for new or worsening symptoms. Is patient prescribed a controlled substance at d/c from ED?: No Referrals: None,Stated [Primary Care Provider] - 1-2 days
[2024-02-01] MEDS: HYDROmorphone 1 MG/ML 1 ML SYRINGE IM STA (17:40)
[2024-02-01 17:50] VITALS: BP 128/82; PULSE 84; TEMP 97.9
== END 2024-02-01 17:49 | disposition home or self-care (01) ==
LOC: EC 16:43
DX: K44.9 Diaphragmatic hernia without obstruction or gangrene (principal); Z88.2 Allergy status to sulfonamides; Z88.1 Allergy status to other antibiotic agents; Z91.09 Other allergy status, other than to drugs and biological substances; Z88.0 Allergy status to penicillin; Z88.8 Allergy status to other drugs, medicaments and biological substances
CPT/HCPCS: 99283; 96372; J1170

== ENCOUNTER 2024-02-06 19:40 | Emergency (ER) | payer OTHER ==
[2024-02-06 19:44] VITALS: RESP 16; TEMP 98
--- NOTE | 2024-02-06 20:00 | ED ---
General Adult HPI - General Chief complaint: Abdominal Pain Stated complaint: diarrhea Time Seen by Provider: 02/06/24 19:44 Source: patient Mode of arrival: ambulatory Limitations: no limitations - History of Present Illness Initial comments: Dictation was produced using [employer] dictation software. please excuse any grammatical, word or spelling errors. Chief Complaint: 33-year-old female with diarrhea History of Present Illness: Patient 33-year-old female with diarrhea and abdominal pain. Patient is well-known to the emergency department for multiple visitations for abdominal pain. Patient had hiatal hernia surgery performed 10 days ago. States that she has been dealing with on and off diarrhea since the procedure. Patient states he tried to take some soft diet which she feels like triggered her diarrhea. She went to work today feels like she may have overdid it and now has some abdominal discomfort. Denies any fever. Complains of nausea but no vomiting. States that her diarrhea is nonbilious nonbloody. The ROS documented in this emergency department record has been reviewed and confirmed by me. Those systems with pertinent positive or negative responses have been documented in the HPI. All other systems are other negative and/or noncontributory. - Related Data Home Medications Medication Instructions Recorded Confirmed Docusate [Colace] 100 mg PO BID PRN 12/26/23 01/27/24 Omeprazole 20 mg PO BID 12/26/23 01/27/24 Escitalopram [Lexapro] 10 mg PO AC-LUNCH 01/17/24 01/27/24 Ondansetron [Zofran] 4 mg PO Q8HR PRN 01/17/24 01/27/24 Previous Rx's Medication Instructions Recorded Ibuprofen [Motrin] 600 mg PO Q6HR PRN #40 tab 12/13/23 HYDROcodone/APAP 5-325MG [[place] 1 tab PO Q6HR PRN 3 Days #12 tab 01/29/24 5-325] Ondansetron Odt [Zofran Odt] 4 mg PO Q8HR PRN #12 tab 01/31/24 Allergies Allergy/AdvReac Type Severity Reaction Status Date / Time sulfamethoxazole Allergy Severe Anaphylaxis Verified 02/06/24 19:44 [From Bactrim] trimethoprim [From Bactrim] Allergy Severe Anaphylaxis Verified 02/06/24 19:44 adhesive tape Allergy Rash/Hives Verified 02/06/24 19:44 aloe vera Allergy Rash/Hives Verified 02/06/24 19:44 azithromycin Allergy Rash/Hives Verified 02/06/24 19:44 cephalexin Allergy Rash/Hives Verified 02/06/24 19:44 metronidazole [From Flagyl] Allergy Rash/Hives Verified 02/06/24 19:44 Penicillins Allergy Rash/Hives Verified 02/06/24 19:44 alprazolam [From Xanax] AdvReac MAKES Verified 02/06/24 19:44 PARANOID dicyclomine [From Bentyl] AdvReac constipatio Verified 02/06/24 19:44 n Review of Systems ROS Statement: Those systems with pertinent positive or pertinent negative responses have been documented in the HPI. ROS Other: All systems not noted in ROS Statement are negative. Past Medical History Past Medical History: Blood Disorder, GERD/Reflux Additional Past Medical History / Comment(s): Endometriosis, polycystic ovarian syndrome. IRON DEFICIENCY ANEMIA. Stomach Ulcer. Hx ovarian cyst. History of Any Multi-Drug Resistant Organisms: None Reported Past Surgical History: Ablation, Section, Cholecystectomy, Hernia Repa ir, Hysterectomy, Tubal Ligation, Uterine Ablation Additional Past Surgical History / Comment(s): Laparoscopy X2, Section X3, right ovary and right tube removed, then total hysterectomy including left ovary and left fallopian tube, cyst removed from chest, ADHESION REMOVAL FROM PAST CSECTION, vaginal/pelvic biopsy. Scar tissure removal abdomen L upper lower Past Anesthesia/Blood Transfusion Reactions: No Reported Reaction Past Psychological History: Anxiety, Depression Smoking Status: Never smoker Past Alcohol Use History: Rare Past Drug Use History: None Reported - Past Family History Mother Family Medical History: Deep Vein Thrombosis (DVT), Hyperlipidemia Additional Family Medical History / Comment(s): Depression and anxiety. DVT to arm after surgery. General Exam - General Exam Comments Initial Comments: PHYSICAL EXAM: General Impression: Alert and oriented x3, not in acute distress HEENT: Normocephalic atraumatic, extra-ocular movements intact, pupils equal and reactive to light bilaterally, mucous membranes moist. Cardiovascular: Heart regular rate and rhythm Chest: Able to complete full sentences, no retractions, no tachypnea Abdomen: abdomen soft, non-tender, non-distended, no organomegaly Musculoskeletal: Pulses present and equal in all extremities, no peripheral edema Motor: no focal deficits noted Neurological: CN II-XII grossly intact, no focal motor or sensory deficits noted Skin: Intact with no visualized rashes Psych: Normal affect and mood Limitations: no limitations Course Vital Signs 02/06/24 02/06/24 19:42 20:49 Temperature 98 F Pulse Rate 81 76 Respiratory 16 16 Rate Blood Pressure 125/85 116/70 O2 Sat by Pulse 99 99 Oximetry Medical Decision Making - Medical Decision Making Was pt. sent in by a medical professional or institution (, PA, MARKETING LIAISON, urgent care, hospital, or skilled nursing...) When possible be specific @ -No Did you speak to anyone other than the patient for history (EMS, parent, family, police, friend...)? What history was obtained from this source @ -No Did you review nursing and triage notes (agree or disagree)? Why? @ -I reviewed and agree with nursing and triage notes Were old charts reviewed (outside hosp., previous admission, EMS record, old EKG, old radiological studies, urgent care reports/EKG's, skilled nursing records)? Report findings @ -No old charts were reviewed Differential Diagnosis (chest pain, altered mental status, abdominal pain women, abdominal pain men, vaginal bleeding, musculoskeletal, weakness, fever, dyspnea, syncope, headache, dizziness, GI bleed, back pain, seizure, CVA, palpatations, mental health)? @ -Not applicable EKG interpreted by me (3pts min.). @ -None done X-rays interpreted by me (1pt min.). @ -None done CT interpreted by me (1pt min.). @ -None done U/S interpreted by me (1pt. min.). @ -None done What testing was considered but not performed or refused? (CT, X-rays, U/S, labs)? Why? @ -None What meds were considered but not given or refused? Why? @ -None Was smoking cessation discussed for >3mins.? @ -No Were there social determinants of health that impacted care today? How? (Homelessness, low income, unemployed, alcoholism, drug addiction, transportation, low edu. Level, literacy, decrease access to med. care, long term, rehab)? @ -No Was there de-escalation of care discussed even if they declined (Discuss DNR or withdrawal of care, Hospice)? DNR status @ -No What co-morbidities impacted this encounter? (DM, HTN, Smoking, COPD, CAD, Cancer, CVA, ARF, Chemo, Hep., AIDS, mental health diagnosis, sleep apnea, morbid obesity)? @ -None Was patient admitted / discharged? Hospital course, mention meds given and route, prescriptions, significant lab abnormalities, going to OR and other pertinent info. @ -33-year-old female presents to the emergency department for diarrhea and abdominal pain. Vital signs are stable. Patient recently had hiatal hernia surgery. Vital signs are stable. Patient appears to be at baseline. I have encountered this patient multiple occasions in the past. Patient with analgesics. Labs are unremarkable. Patient discharged. Advised follow-up with primary care doctor along with general surgery. Did you discuss the management of the patient with other professionals (professionals i.e. , PA, MARKETING LIAISON, lab, RT, psych nurse, social and political studies professor, magnet maker, teacher, lead security officer, director of casework department)? Give summary @ -No Was critical care preformed (if so, how long)? @ -No Undiagnosed new problem with uncertain prognosis? @ -No Drug Therapy requiring intensive monitoring for toxicity (Heparin, Nitro, Insulin, Cardizem)? @ -No Were any procedures done? @ -No Diagnosis/symptom? Acute, or Chronic, or Acute on Chronic? Uncomplicated (without systemic symptoms) or Complicated (systemic symptoms)? @ -Diarrhea Side effects of treatment? @ -No Exacerbation, Progression, or Severe Exacerbation? @ -No Poses a threat to life or bodily function? How? (Chest pain, [place], [place], pneumonia, PE, COPD, DKA, ARF, appy, cholecystitis, CVA, Diverticulitis, Homicidal, Suicidal, threat to staff... and all critical care pts) @ -No - Lab Data Result diagrams: 02/06/24 20:16 02/06/24 20:16 Lab Results 02/06/24 02/06/24 Range/Units 20:16 20:16 WBC 3.8 (3.8-10.6) k/uL RBC 3.50 L (3.80-5.40) m/uL Hgb 10.7 L (11.4-16.0) gm/dL Hct 32.3 L (34.0-46.0) % MCV 92.2 (80.0-100.0) fL MCH 30.6 (25.0-35.0) pg MCHC 33.2 (31.0-37.0) g/dL RDW 13.5 (11.5-15.5) % Plt Count 217 (150-450) k/uL MPV 7.2 Neutrophils % 51 % Lymphocytes % 39 % Monocytes % 6 % Eosinophils % 2 % Basophils % 0 % Neutrophils # 2.0 (1.3-7.7) k/uL Lymphocytes # 1.5 (1.0-4.8) k/uL Monocytes # 0.2 (0-1.0) k/uL Eosinophils # 0.1 (0-0.7) k/uL Basophils # 0.0 (0-0.2) k/uL Sodium 137 (137-145) mmol/L Potassium 3.4 L (3.5-5.1) mmol/L Chloride 104 (98-107) mmol/L Carbon Dioxide 26 (22-30) mmol/L Anion Gap 7 mmol/L BUN 11 (7-17) mg/dL Creatinine 0.70 (0.52-1.04) mg/dL Est GFR (CKD-EPI)AfAm >90 (>60 ml/min/1.73 sqM) Est GFR (CKD-EPI)NonAf >90 (>60 ml/min/1.73 sqM) Glucose 90 (74-99) mg/dL Calcium 9.5 (8.4-10.2) mg/dL Total Bilirubin 1.2 (0.2-1.3) mg/dL AST 22 (14-36) U/L ALT 14 (4-34) U/L Alkaline Phosphatase 105 (38-126) U/L Total Protein 6.6 (6.3-8.2) g/dL Albumin 4.3 (3.5-5.0) g/dL Disposition Clinical Impression: Diarrhea Disposition: HOME SELF-CARE Condition: Good Instructions (If sedation given, give patient instructions): Chronic Diarrhea (ED) Is patient prescribed a controlled substance at d/c from ED?: No Referrals: Ryan Bahena MD [STAFF PHYSICIAN] - 1-2 days Time of Disposition: 21:21
[2024-02-06] MEDS: SODIUM CHLORIDE 0.9% 1,000 ML IV STA (20:14)
[2024-02-06] MEDS: HYDROmorphone 1 MG/ML 1 ML SYRINGE IVP STA (20:15)
[2024-02-06] MEDS: ONDANSETRON 4 MG/2 ML VIAL IVP STA (20:22)
[2024-02-06 20:24] LABS: Basophils % (A) 0 %; Eosinophils # (A) 0.1 k/uL (0-0.7); Eosinophils % (A) 2 %; HCT 32.3 % (34.0-46.0); HGB 10.7 gm/dL (11.4-16.0); Lymphocytes # (A) 1.5 k/uL (1.0-4.8); Lymphocytes % (A) 39 %; MCH 30.6 pg (25.0-35.0); MCHC 33.2 g/dL (31.0-37.0); MCV 92.2 fL (80.0-100.0); Mean Platelet Volume 7.2; Monocytes # (A) 0.2 k/uL (0-1.0); Monocytes % (A) 6 %; Neutrophils % (A) 51 %; Platelet Count 217 k/uL (150-450); RDW 13.5 % (11.5-15.5); WBC 3.8 k/uL (3.8-10.6)
[2024-02-06 20:35] LABS: ALT 14 U/L (4-34); AST 22 U/L (14-36); African American GFR (CKD) >90 (>60 ml/min/1.73 sqM); Albumin 4.3 g/dL (3.5-5.0); Alkaline Phosphatase 105 U/L (38-126); Anion Gap 7 mmol/L; Blood Urea Nitrogen 11 mg/dL (7-17); Calcium 9.5 mg/dL (8.4-10.2); Carbon Dioxide 26 mmol/L (22-30); Chloride 104 mmol/L (98-107); Glucose 90 mg/dL (74-99); Non-African American GFR(CKD) >90 (>60 ml/min/1.73 sqM); Potassium 3.4 mmol/L (3.5-5.1); Sodium 137 mmol/L (137-145); Total Bilirubin 1.2 mg/dL (0.2-1.3); Total Protein 6.6 g/dL (6.3-8.2)
[2024-02-06 20:51] VITALS: BP 116/70; PULSE 76
[2024-02-06] MEDS: HYDROmorphone 0.5 MG/0.5 ML SYRINGE IVP STA (21:30)
== END 2024-02-06 21:35 | disposition home or self-care (01) ==
LOC: EC 19:40
DX: R19.7 Diarrhea, unspecified (principal); R10.9 Unspecified abdominal pain; Z88.2 Allergy status to sulfonamides; Z88.1 Allergy status to other antibiotic agents; Z91.09 Other allergy status, other than to drugs and biological substances; Z88.0 Allergy status to penicillin; Z88.8 Allergy status to other drugs, medicaments and biological substances
CPT/HCPCS: 99284 ×2; 96374 ×2; 96375 ×2; 96376 ×2; 96361 ×2; 36415; 80053; 85025; J2405; J1170 ×2

== ENCOUNTER 2024-02-08 21:11 | Emergency (ER) | payer OTHER ==
[2024-02-08 21:29] VITALS: RESP 16; TEMP 98.4
--- NOTE | 2024-02-08 21:43 | ED ---
Abdominal Pain HPI - General Chief Complaint: Abdominal Pain Stated Complaint: Chest pain Time Seen by Provider: 02/08/24 21:41 Source: patient, RN notes reviewed, old records reviewed Mode of arrival: ambulatory Limitations: no limitations - History of Present Illness Initial Comments: This is a 33-year-old female to the ER for evaluation today. Patient presents today for evaluation regards to MD Complaint: abdominal pain, other (Chest pain) -: days(s) Location: diffuse, periumbilical, epigastric, suprapubic Radiation: epigastric, suprapubic Severity: moderate Severity scale (1-10): 6 Quality: fullness, sharp Consistency: intermittent Improves With: nothing - Related Data Home Medications Medication Instructions Recorded Confirmed Docusate [Colace] 100 mg PO BID PRN 12/26/23 01/27/24 Omeprazole 20 mg PO BID 12/26/23 01/27/24 Escitalopram [Lexapro] 10 mg PO AC-LUNCH 01/17/24 01/27/24 Ondansetron [Zofran] 4 mg PO Q8HR PRN 01/17/24 01/27/24 Previous Rx's Medication Instructions Recorded Ibuprofen [Motrin] 600 mg PO Q6HR PRN #40 tab 12/13/23 HYDROcodone/APAP 5-325MG [[place] 1 tab PO Q6HR PRN 3 Days #12 tab 01/29/24 5-325] Ondansetron Odt [Zofran Odt] 4 mg PO Q8HR PRN #12 tab 01/31/24 Allergies Allergy/AdvReac Type Severity Reaction Status Date / Time sulfamethoxazole Allergy Severe Anaphylaxis Verified 02/06/24 19:44 [From Bactrim] trimethoprim [From Bactrim] Allergy Severe Anaphylaxis Verified 02/06/24 19:44 adhesive tape Allergy Rash/Hives Verified 02/06/24 19:44 aloe vera Allergy Rash/Hives Verified 02/06/24 19:44 azithromycin Allergy Rash/Hives Verified 02/06/24 19:44 cephalexin Allergy Rash/Hives Verified 02/06/24 19:44 metronidazole [From Flagyl] Allergy Rash/Hives Verified 02/06/24 19:44 Penicillins Allergy Rash/Hives Verified 02/06/24 19:44 alprazolam [From Xanax] AdvReac MAKES Verified 02/06/24 19:44 PARANOID dicyclomine [From Bentyl] AdvReac constipatio Verified 02/06/24 19:44 n Review of Systems ROS Statement: Those systems with pertinent positive or pertinent negative responses have been documented in the HPI. ROS Other: All systems not noted in ROS Statement are negative. Past Medical History Past Medical History: Blood Disorder, GERD/Reflux Additional Past Medical History / Comment(s): Endometriosis, polycystic ovarian syndrome. IRON DEFICIENCY ANEMIA. Stomach Ulcer. Hx ovarian cyst. History of Any Multi-Drug Resistant Organisms: None Reported Past Surgical History: Ablation, Section, Cholecystectomy, Hernia Repair, Hysterectomy, Tubal Ligation, Uterine Ablation Additional Past Surgical History / Comment(s): Laparoscopy X2, Section X3, right ovary and right tube removed, then total hysterectomy including left ovary and left fallopian tube, cyst removed from chest, ADHESION REMOVAL FROM PAST CSECTION, vaginal/pelvic biopsy. Scar tissure removal abdomen L upper lower Past Anesthesia/Blood Transfusion Reactions: No Reported Reaction Past Psychological History: Anxiety, Depression Smoking Status: Never smoker Past Alcohol Use History: Rare Past Drug Use History: None Reported - Past Family History Mother Family Medical History: Deep Vein Thrombosis (DVT), Hyperlipidemia Additional Family Medical History / Comment(s): Depression and anxiety. DVT to arm after surgery. General Exam Limitations: no limitations General appearance: alert, in no apparent distress Head exam: Present: atraumatic, normocephalic, normal inspection Eye exam: Present: normal appearance, PERRL, EOMI. Absent: scleral icterus, conjunctival injection, periorbital swelling ENT exam: Present: normal exam, mucous membranes moist Neck exam: Present: normal inspection. Absent: tenderness, meningismus, lymphadenopathy Respiratory exam: Present: normal lung sounds bilaterally. Absent: respiratory distress, wheezes, rales, rhonchi, stridor Cardiovascular Exam: Present: regular rate, normal rhythm, normal heart sounds. Absent: systolic murmur, diastolic murmur, rubs, gallop, clicks GI/Abdominal exam: Present: soft, normal bowel sounds. Absent: distended, tenderness, guarding, rebound, rigid Extremities exam: Present: normal inspection, full ROM, normal capillary refill. Absent: tenderness, pedal edema, joint swelling, calf tenderness Back exam: Present: normal inspection Neurological exam: Present: alert, oriented X3, CN II-XII intact Psychiatric exam: Present: normal affect, normal mood Skin exam: Present: warm, dry, intact, normal color. Absent: rash Course Vital Signs 02/08/24 02/09/24 21:24 01:58 Temperature 98.4 F Pulse Rate 78 70 Respiratory 16 16 Rate Blood Pressure 139/80 128/76 O2 Sat by Pulse 97 99 Oximetry - Reevaluation(s) Reevaluation #1: 02/09/24 04:11 Medical records reviewed Reevaluation #2: 02/09/24 04:11 Patient symptoms improved Reevaluation #3: 02/09/24 04:11 Patient symptoms improved Reevaluation #4: Was pt. sent in by a medical professional or institution ([facility], [facility], urgent care, hospital, or snf...) When possible be specific @ -no Did you speak to anyone other than the patient for history (EMS, parent, family, police, friend...)? What history was obtained from this source @ -no Did you review nursing and triage notes (agree or disagree)? Why? @ -agree Are old charts reviewed (outside hosp., previous admission, EMS record, old EKG, old radiological studies, urgent care reports/EKG's, snf records)? Report findings @ -yes Differential Diagnosis (chest pain, altered mental status, abdominal pain women, abdominal pain men, vaginal bleeding, weakness, fever, dyspnea, syncope, headache, dizziness, GI bleed, back pain, seizure, CVA, palpatations, mental health, musculoskeletal)? @ -prior EKG interpreted by me (3pts min.). @ -yes X-rays interpreted by me (1pt min.). @ -yes negative for acute disease CT interpreted by me (1pt min.). @ -no U/S interpreted by me (1pt. min.). @ -no What testing was considered but not performed or refused? (CT, X-rays, U/S, labs)? Why? @ -none What meds were considered but not given or refused? Why? @ -none Did you discuss the management of the patient with other professionals (professionals i.e. [facility]oy, [facility], lab, RT, psych nurse, social studies department chair, drilling field specialist, teacher, sheriff officer, special education case manager)? Give summary @ -no Was smoking cessation discussed for >3mins.? @ -no Was critical care preformed (if so, how long)? @ -no Were there social determinants of health that impacted care today? How? (Homelessness, low income, unemployed, alcoholism, drug addiction, transportation, low edu. Level, literacy, decrease access to med. care, detention, rehab)? @ -none Was there de-escalation of care discussed even if they declined (Discuss DNR or withdrawal of care, Hospice)? DNR status @ -no What co-morbidities impacted this encounter? (DM, HTN, Smoking, COPD, CAD, Cancer, CVA, ARF, Chemo, Hep., AIDS, mental health diagnosis, sleep apnea, morbid obesity)? @ -none Was patient admitted / discharged? Hospital course, mention meds given and route, prescriptions, significant lab abnormalities, going to OR and other pertinent info. @ - Undiagnosed new problem with uncertain prognosis? @ -no Drug Therapy requiring intensive monitoring for toxicity (Heparin, Nitro, Insulin, Cardizem)? @ -no Were any procedures done? @ -no Diagnosis/symptom? @ - Acute, or Chronic, or Acute on Chronic? @ -Acute Uncomplicated (without systemic symptoms) or Complicated (systemic symptoms)? @ -Complicated Side effects of treatment? @ -no Exacerbation, Progression, or Severe Exacerbation? @ -exacerbation Poses a threat to life or bodily function? How? (Chest pain, USA, SD, pneumonia, PE, COPD, DKA, ARF, appy, cholecystitis, CVA, Diverticulitis, Homicidal, Suicidal, threat to staff... and all critical care pts) @ -yes Reevaluation #5: Differential Abdominal Pain Women: Appendicitis, Cholecystitis, diverticulosis, ischemic bowel, pancreatitis, hepatitis, UTI, gastroenteritis, AAA, incarcerated hernia, bowel obstruction, constipation, inflammatory bowel, hepatitis, peptic ulcer disease, splenic infarction, perforated viscus, vulvitis, ovarian torsion, PID, kidney stone, placenta abruption, this is not meant to be an all-inclusive list Medical Decision Making - Medical Decision Making 33 female well-known to this ER for abdominal pain recurrent abdominal pain, postoperative abdominal pain improved and can be discharged home - Lab Data Result diagrams: 02/08/24 22:19 02/08/24 22:19 Lab Results 02/08/24 02/08/24 02/08/24 Range/Units 22:19 22:19 22:19 WBC 5.1 (3.8-10.6) k/uL RBC 3.63 L (3.80-5.40) m/uL Hgb 11.2 L (11.4-16.0) gm/dL Hct 33.3 L (34.0-46.0) % MCV 91.5 (80.0-100.0) fL MCH 30.8 (25.0-35.0) pg MCHC 33.7 (31.0-37.0) g/dL RDW 13.7 (11.5-15.5) % Plt Count 249 (150-450) k/uL MPV 7.4 Neutrophils % 60 % Lymphocytes % 31 % Monocytes % 5 % Eosinophils % 2 % Basophils % 0 % Neutrophils # 3.1 (1.3-7.7) k/uL Lymphocytes # 1.6 (1.0-4.8) k/uL Monocytes # 0.3 (0-1.0) k/uL Eosinophils # 0.1 (0-0.7) k/uL Basophils # 0.0 (0-0.2) k/uL PT (10.0-12.5) sec INR (<1.2) APTT (22.0-30.0) sec Sodium 141 (137-145) mmol/L Potassium 3.5 (3.5-5.1) mmol/L Chloride 107 (98-107) mmol/L Carbon Dioxide 27 (22-30) mmol/L Anion Gap 7 mmol/L BUN 9 (7-17) mg/dL Creatinine 0.95 (0.52-1.04) mg/dL Est GFR (CKD-EPI)AfAm >90 (>60 ml/min/1.73 sqM) Est GFR (CKD-EPI)NonAf 79 (>60 ml/min/1.73 sqM) Glucose 100 H (74-99) mg/dL Plasma Lactic Acid Santhosh 1.1 (0.7-2.0) mmol/L Calcium 9.6 (8.4-10.2) mg/dL Phosphorus 3.5 (2.5-4.5) mg/dL Magnesium 2.0 (1.6-2.3) mg/dL Total Bilirubin 0.8 (0.2-1.3) mg/dL AST 28 (14-36) U/L ALT 18 (4-34) U/L Alkaline Phosphatase 101 (38-126) U/L Total Protein 6.9 (6.3-8.2) g/dL Albumin 4.3 (3.5-5.0) g/dL Amylase 55 (30-110) U/L Lipase 78 (23-300) U/L Urine Color Urine Appearance (Clear) Urine pH (5.0-8.0) Ur Specific [place] (1.001-1.035) Urine Protein (Negative) Urine Glucose (UA) (Negative) Urine Ketones (Negative) Urine Blood (Negative) Urine Nitrite (Negative) Urine Bilirubin (Negative) Urine Urobilinogen (<2.0) mg/dL Ur Leukocyte Esterase (Negative) 02/08/24 02/08/24 Range/Units 22:19 22:19 WBC (3.8-10.6) k/uL RBC (3.80-5.40) m/uL Hgb (11.4-16.0) gm/dL Hct (34.0-46.0) % MCV (80.0-100.0) fL MCH (25.0-35.0) pg MCHC (31.0-37.0) g/dL RDW (11.5-15.5) % Plt Count (150-450) k/uL MPV Neutrophils % % Lymphocytes % % Monocytes % % Eosinophils % % Basophils % % Neutrophils # (1.3-7.7) k/uL Lymphocytes # (1.0-4.8) k/uL Monocytes # (0-1.0) k/uL Eosinophils # (0-0.7) k/uL Basophils # (0-0.2) k/uL PT 10.1 (10.0-12.5) sec INR 0.9 (<1.2) APTT 24.3 (22.0-30.0) sec Sodium (137-145) mmol/L Potassium (3.5-5.1) mmol/L Chloride (98-107) mmol/L Carbon Dioxide (22-30) mmol/L Anion Gap mmol/L BUN (7-17) mg/dL Creatinine (0.52-1.04) mg/dL Est GFR (CKD-EPI)AfAm (>60 ml/min/1.73 sqM) Est GFR (CKD-EPI)NonAf (>60 ml/min/1.73 sqM) Glucose (74-99) mg/dL Plasma Lactic Acid Santhosh (0.7-2.0) mmol/L Calcium (8.4-10.2) mg/dL Phosphorus (2.5-4.5) mg/dL Magnesium (1.6-2.3) mg/dL Total Bilirubin (0.2-1.3) mg/dL AST (14-36) U/L ALT (4-34) U/L Alkaline Phosphatase (38-126) U/L Total Protein (6.3-8.2) g/dL Albumin (3.5-5.0) g/dL Amylase (30-110) U/L Lipase (23-300) U/L Urine Color Light Yellow Urine Appearance Clear (Clear) Urine pH 6.5 (5.0-8.0) Ur Specific [place] 1.018 (1.001-1.035) Urine Protein Negative (Negative) Urine Glucose (UA) Negative (Negative) Urine Ketones Negative (Negative) Urine Blood Negative (Negative) Urine Nitrite Negative (Negative) Urine Bilirubin Negative (Negative) Urine Urobilinogen 3.0 (<2.0) mg/dL Ur Leukocyte Esterase Negative (Negative) - Radiology Data Radiology results: report reviewed (CT abdomen pelvis is negative for acute disease), image reviewed Disposition Clinical Impression: Abdominal colic, Nausea and vomiting, Postoperative pain Disposition: HOME SELF-CARE Condition: Good Instructions (If sedation given, give patient instructions): Abdominal Pain (ED) Is patient prescribed a controlled substance at d/c from ED?: No Referrals: Ryan Bahena MD [STAFF PHYSICIAN] - 1-2 days Time of Disposition: 01:20
[2024-02-08] MEDS: SODIUM CHLORIDE 0.9% 1,000 ML IV STA ×2 (22:23→22:24)
[2024-02-08 22:26] LABS: Basophils % (A) 0 %; Eosinophils # (A) 0.1 k/uL (0-0.7); Eosinophils % (A) 2 %; HCT 33.3 % (34.0-46.0); HGB 11.2 gm/dL (11.4-16.0); Lymphocytes # (A) 1.6 k/uL (1.0-4.8); Lymphocytes % (A) 31 %; MCH 30.8 pg (25.0-35.0); MCHC 33.7 g/dL (31.0-37.0); MCV 91.5 fL (80.0-100.0); Mean Platelet Volume 7.4; Monocytes # (A) 0.3 k/uL (0-1.0); Monocytes % (A) 5 %; Neutrophils # (A) 3.1 k/uL (1.3-7.7); Neutrophils % (A) 60 %; Platelet Count 249 k/uL (150-450); RBC 3.63 m/uL (3.80-5.40); RDW 13.7 % (11.5-15.5); WBC 5.1 k/uL (3.8-10.6)
[2024-02-08] MEDS: HYDROmorphone 1 MG/ML 1 ML SYRINGE IVP STA (22:28)
[2024-02-08] MEDS: ONDANSETRON 4 MG/2 ML VIAL IVP STA (22:30)
[2024-02-08] MEDS: PANTOPRAZOLE 40 MG/10 ML VIAL IVP STA (22:32)
[2024-02-08 22:35] LABS: Appearance,Urine Clear (Clear); Bilirubin,Urine Negative (Negative); Blood,Urine Negative (Negative); Color,Urine Light Yellow; Glucose,Urine (UA) Negative (Negative); Ketones,Urine Negative (Negative); Leukocyte Esterase,Urine Negative (Negative); Nitrite,Urine Negative (Negative); PH, Urine 6.5 (5.0-8.0); Protein,Urine Negative (Negative); Specific Gravity,Urine 1.018 (1.001-1.035)
[2024-02-08 22:37] LABS: ALT 18 U/L (4-34); AST 28 U/L (14-36); African American GFR (CKD) >90 (>60 ml/min/1.73 sqM); Albumin 4.3 g/dL (3.5-5.0); Alkaline Phosphatase 101 U/L (38-126); Amylase 55 U/L (30-110); Anion Gap 7 mmol/L; Blood Urea Nitrogen 9 mg/dL (7-17); Calcium 9.6 mg/dL (8.4-10.2); Carbon Dioxide 27 mmol/L (22-30); Chloride 107 mmol/L (98-107); Glucose 100 mg/dL (74-99); Lipase 78 U/L (23-300); Non-African American GFR(CKD) 79 (>60 ml/min/1.73 sqM); Phosphorus 3.5 mg/dL (2.5-4.5); Potassium 3.5 mmol/L (3.5-5.1); Sodium 141 mmol/L (137-145); Total Bilirubin 0.8 mg/dL (0.2-1.3); Total Protein 6.9 g/dL (6.3-8.2)
[2024-02-08 23:23] LABS: INR 0.9 (<1.2); Partial Thromboplastin Time 24.3 sec (22.0-30.0); Prothrombin Time 10.1 sec (10.0-12.5)
--- NOTE | 2024-02-09 00:37 | XR ---
EXAM: XR Abdomen, 1 View CLINICAL HISTORY: ITS.REASON XR Reason: abdominal pain TECHNIQUE: Frontal supine view of the abdomen/pelvis. COMPARISON: No relevant prior studies available. FINDINGS: Gastrointestinal tract: Nonobstructed bowel gas pattern. Organs: Cholecystectomy. Bones/joints: Unremarkable. No acute fracture. IMPRESSION: Nonobstructed bowel gas pattern.
--- NOTE | 2024-02-09 01:15 | CT ---
EXAM: CT Abdomen and Pelvis With Intravenous Contrast CLINICAL HISTORY: ITS.REASON CT Reason: pain TECHNIQUE: Axial computed tomography images of the abdomen and pelvis with intravenous contrast. CTDI is 12.3 mGy and DLP is 677 mGy-cm. This CT exam was performed using one or more of the following dose reduction techniques: automated exposure control, adjustment of the mA and/or kV according to patient size, and/or use of iterative reconstruction technique. COMPARISON: 09/23/2022 FINDINGS: ABDOMEN: Liver: Unremarkable. Gallbladder and bile ducts: Removed. Pancreas: Unremarkable. Spleen: Unremarkable. Adrenals: Unremarkable. Kidneys and ureters: No hydronephrosis. Stomach and bowel: No bowel obstruction. No bowel wall thickening. Postop changes near the GE junction. PELVIS: Appendix: No evidence of appendicitis. Bladder: Unremarkable. Reproductive: Removed. ABDOMEN and PELVIS: Intraperitoneal space: Trace pelvic free fluid. Bones/joints: No acute fractures. Soft tissues: Soft tissue emphysema anterior abdominal wall, likely iatrogenic. Vasculature: No abdominal aortic aneurysm. Lymph nodes: No enlarged lymph nodes. IMPRESSION: Trace pelvic free fluid. Possibly physiologic or reactive. Soft tissue emphysema anterior abdominal wall, likely iatrogenic.
--- NOTE | 2024-02-09 01:22 | CT ---
EXAM: CT Angiography Chest With Intravenous Contrast CLINICAL HISTORY: ITS.REASON CT Reason: pain TECHNIQUE: Axial computed tomographic angiography images of the chest with intravenous contrast. CTDI is 10.1 mGy and DLP is 369.4 mGy-cm. This CT exam was performed using one or more of the following dose reduction techniques: automated exposure control, adjustment of the mA and/or kV according to patient size, and/or use of iterative reconstruction technique. MIP reconstructed images were created and reviewed. COMPARISON: No relevant prior studies available. FINDINGS: Pulmonary arteries: No filling defects. Aorta: No thoracic aortic aneurysm. Lungs: No mass. No consolidation. Pleural space: No pneumothorax. No effusion. Heart: No cardiomegaly. No pericardial effusion. Bones/joints: No acute fracture or dislocation. Soft tissues: Unremarkable. Lymph nodes: No enlarged lymph nodes. IMPRESSION: No acute intrathoracic findings.
[2024-02-09 01:59] VITALS: BP 128/76; PULSE 70
[2024-02-09] MEDS: HYDROmorphone 1 MG/ML 1 ML SYRINGE IVP STA (02:01)
== END 2024-02-09 02:07 | disposition home or self-care (01) ==
LOC: EC 21:11
DX: R10.84 Generalized abdominal pain (principal); R11.2 Nausea with vomiting, unspecified; G89.18 Other acute postprocedural pain; Z88.2 Allergy status to sulfonamides; Z88.0 Allergy status to penicillin; Z88.1 Allergy status to other antibiotic agents; Z91.048 Other nonmedicinal substance allergy status; Z88.8 Allergy status to other drugs, medicaments and biological substances
CPT/HCPCS: 36415; 80053; 82150; 83605; 83690; 83735; 84100; 85025; 85610; 85730; 81003; 74018; 71275; 74177; 99284; 96374; 96375 ×2; 96361 ×4; 96376; J2405; J1170 ×2; Q9967; J2470

== ENCOUNTER 2024-02-11 17:22 | Emergency (ER) | payer OTHER ==
[2024-02-11 17:34] VITALS: RESP 18; TEMP 98.3
[2024-02-11 19:21] LABS: Basophils % (A) 0 %; Eosinophils # (A) 0.1 k/uL (0-0.7); Eosinophils % (A) 2 %; HCT 34.1 % (34.0-46.0); HGB 10.9 gm/dL (11.4-16.0); Hypochromasia Slight; Lymphocytes # (A) 1.1 k/uL (1.0-4.8); Lymphocytes % (A) 31 %; MCH 30.3 pg (25.0-35.0); MCHC 32.1 g/dL (31.0-37.0); MCV 94.5 fL (80.0-100.0); Mean Platelet Volume 7.9; Monocytes # (A) 0.2 k/uL (0-1.0); Monocytes % (A) 6 %; Neutrophils % (A) 58 %; Platelet Count 222 k/uL (150-450); RBC 3.61 m/uL (3.80-5.40); RDW 14.3 % (11.5-15.5); WBC 3.4 k/uL (3.8-10.6)
[2024-02-11 19:35] LABS: ALT 20 U/L (4-34); AST 29 U/L (14-36); African American GFR (CKD) >90 (>60 ml/min/1.73 sqM); Albumin 4.2 g/dL (3.5-5.0); Alkaline Phosphatase 100 U/L (38-126); Amylase 45 U/L (30-110); Anion Gap 5 mmol/L; Blood Urea Nitrogen 5 mg/dL (7-17); Calcium 9.8 mg/dL (8.4-10.2); Carbon Dioxide 26 mmol/L (22-30); Chloride 109 mmol/L (98-107); Glucose 95 mg/dL (74-99); Lipase 37 U/L (23-300); Non-African American GFR(CKD) >90 (>60 ml/min/1.73 sqM); Potassium 4.2 mmol/L (3.5-5.1); Sodium 140 mmol/L (137-145); Total Bilirubin 1.1 mg/dL (0.2-1.3); Total Protein 6.6 g/dL (6.3-8.2)
--- NOTE | 2024-02-11 20:00 | ED ---
Abdominal Pain HPI - General Chief Complaint: Abdominal Pain Stated Complaint: Chest Pain/Vomiting Time Seen by Provider: 02/11/24 19:20 Source: patient Mode of arrival: ambulatory Limitations: no limitations - History of Present Illness Initial Comments: 33-year-old female presenting with chief complaint of epigastric pain and vomiting. Pain started 3 days ago. The pain does radiate to her left side as well. Patient is 2 weeks postop hiatal hernia repair. States that she saw her surgeon Dr. Bahena in the office today who told her to resume a liquid diet. Patient was concerned stating that she cannot hold down any fluids and is out of her Zofran. No chest pains or difficulty breathing. No fevers. No URI-like symptoms. - Related Data Home Medications Medication Instructions Recorded Confirmed Docusate [Colace] 100 mg PO BID PRN 12/26/23 01/27/24 Omeprazole 20 mg PO BID 12/26/23 01/27/24 Escitalopram [Lexapro] 10 mg PO AC-LUNCH 01/17/24 01/27/24 Ondansetron [Zofran] 4 mg PO Q8HR PRN 01/17/24 01/27/24 Previous Rx's Medication Instructions Recorded Ibuprofen [Motrin] 600 mg PO Q6HR PRN #40 tab 12/13/23 HYDROcodone/APAP 5-325MG [[place] 1 tab PO Q6HR PRN 3 Days #12 tab 01/29/24 5-325] Ondansetron Odt [Zofran Odt] 4 mg PO Q8HR PRN #12 tab 01/31/24 Ondansetron Odt [Zofran Odt] 4 mg PO Q8HR PRN #20 tab 02/11/24 Allergies Allergy/AdvReac Type Severity Reaction Status Date / Time sulfamethoxazole Allergy Severe Anaphylaxis Verified 02/11/24 17:34 [From Bactrim] trimethoprim [From Bactrim] Allergy Severe Anaphylaxis Verified 02/11/24 17:34 adhesive tape Allergy Rash/Hives Verified 02/11/24 17:34 aloe vera Allergy Rash/Hives Verified 02/11/24 17:34 azithromycin Allergy Rash/Hives Verified 02/11/24 17:34 cephalexin Allergy Rash/Hives Verified 02/11/24 17:34 metronidazole [From Flagyl] Allergy Rash/Hives Verified 02/11/24 17:34 Penicillins Allergy Rash/Hives Verified 02/11/24 17:34 alprazolam [From Xanax] AdvReac MAKES Verified 02/11/24 17:34 PARANOID dicyclomine [From Bentyl] AdvReac constipatio Verified 02/11/24 17:34 n Review of Systems ROS Statement: Those systems with pertinent positive or pertinent negative responses have been documented in the HPI. ROS Other: All systems not noted in ROS Statement are negative. Past Medical History Past Medical History: Blood Disorder, GERD/Reflux Additional Past Medical History / Comment(s): Endometriosis, polycystic ovarian syndrome. IRON DEFICIENCY ANEMIA. Stomach Ulcer. Hx ovarian cyst. History of Any Multi-Drug Resistant Organisms: None Reported Past Surgical History: Ablation, Section, Cholecystectomy, Hernia Repair, Hysterectomy, Tubal Ligation, Uterine Ablation Additional Past Surgical History / Comment(s): Laparoscopy X2, Section X3, right ovary and right tube removed, then total hysterectomy including left ovary and left fallopian tube, cyst removed from chest, ADHESION REMOVAL FROM PAST CSECTION, vaginal/pelvic biopsy. Scar tissure removal abdomen L upper lower Past Anesthesia/Blood Transfusion Reactions: No Reported Reaction Past Psychological History: Anxiety, Depression Smoking Status: Never smoker Past Alcohol Use History: Rare Past Drug Use History: None Reported - Past Family History Mother Family Medical History: Deep Vein Thrombosis (DVT), Hyperlipidemia Additional Family Medical History / Comment(s): Depression and anxiety. DVT to arm after surgery. General Exam Limitations: no limitations General appearance: alert, in no apparent distress Head exam: Present: atraumatic, normocephalic Eye exam: Present: normal appearance, EOMI Neck exam: Present: normal inspection. Absent: meningismus Respiratory exam: Present: normal lung sounds bilaterally. Absent: respiratory distress, wheezes, rales, rhonchi, stridor Cardiovascular Exam: Present: regular rate, normal rhythm, normal heart sounds. Absent: systolic murmur, diastolic murmur, rubs, gallop, clicks GI/Abdominal exam: Present: soft, tenderness, normal bowel sounds. Absent: distended, guarding, rebound, rigid Neurological exam: Present: alert, oriented X3 Psychiatric exam: Present: normal affect, normal mood Skin exam: Present: warm, dry Course Vital Signs 02/11/24 02/11/24 17:32 21:24 Temperature 98.3 F Pulse Rate 91 55 L Respiratory 18 18 Rate Blood Pressure 140/81 119/79 O2 Sat by Pulse 96 100 Oximetry Medical Decision Making - Medical Decision Making Was pt. sent in by a medical professional or institution (, ANALI, JEWELRY INSPECTOR, urgent care, hospital, or half-way...) When possible be specific @ -No Did you speak to anyone other than the patient for history (EMS, parent, family, police, friend...)? What history was obtained from this source @ -No Did you review nursing and triage notes (agree or disagree)? Why? @ -I reviewed and agree with nursing and triage notes Were old charts reviewed (outside hosp., previous admission, EMS record, old EKG, old radiological studies, urgent care reports/EKG's, half-way records)? Report findings @ -No old charts were reviewed Differential Diagnosis (chest pain, altered mental status, abdominal pain women, abdominal pain men, vaginal bleeding, weakness, fever, dyspnea, syncope, headache, dizziness, GI bleed, back pain, seizure, CVA, palpatations, mental health, musculoskeletal)? @ -MDM Differential Abdominal Pain Women: Appendicitis, Cholecystitis, diverticulosis, ischemic bowel, pancreatitis, hepatitis, UTI, gastroenteritis, AAA, incarcerated hernia, bowel obstruction, constipation, inflammatory bowel, hepatitis, peptic ulcer disease, splenic infarction, perforated viscus, vulvitis, ovarian torsion, PID, kidney stone, placenta abruption... This is not meant to be an all-inclusive list EKG interpreted by me (3pts min.). @ -As above X-rays interpreted by me (1pt min.). @ -None done CT interpreted by me (1pt min.). @ -None done U/S interpreted by me (1pt. min.). @ -None done What testing was considered but not performed or refused? (CT, X-rays, U/S, labs)? Why? @ -None What meds were considered but not given or refused? Why? @ -None Did you discuss the management of the patient with other professionals (professionals i.e. ANALI Leroy, JEWELRY INSPECTOR, lab, RT, psych nurse, medical social worker, wind energy technician, teacher, medical laboratory technical officer, outpatient case manager)? Give summary @ -No Was smoking cessation discussed for >3mins.? @ -No Was critical care preformed (if so, how long)? @ -No Were there social determinants of health that impacted care today? How? (Homelessness, low income, unemployed, alcoholism, drug addiction, transportation, low edu. Level, literacy, decrease access to med. care, penitentiary, rehab)? @ -No Was there de-escalation of care discussed even if they declined (Discuss DNR or withdrawal of care, Hospice)? DNR status @ -No What co-morbidities impacted this encounter? (DM, HTN, Smoking, COPD, CAD, Cancer, CVA, ARF, Chemo, Hep., AIDS, mental health diagnosis, sleep apnea, morbid obesity)? @ -None Was patient admitted / discharged? Hospital course, mention meds given and route, prescriptions, significant lab abnormalities, going to OR and other pertinent info. @ -33-year-old female presenting with chief complaint of abdominal pain. Patient is well-known to our ER. Admits to nausea and vomiting. Physical exam are conducted. Patient is given pain and nausea medication as well as fluids, on reassessment she reports improvement in her pain. She is sitting up in bed showing no acute signs of distress. She will be discharged home. Follow-up with PCP. Report back to ER with any new or worsening symptoms. Discussed return parameters and answered all questions. Patient conveyed verbal understanding and agreed to the plan. I discussed this case in detail with my attending Dr. Rangel Undiagnosed new problem with uncertain prognosis? @ -No Drug Therapy requiring intensive monitoring for toxicity (Heparin, Nitro, Insulin, Cardizem)? @ -No Were any procedures done? @ -No Diagnosis/symptom? @ -Abdominal pain, nausea and vomiting Acute, or Chronic, or Acute on Chronic? @ -Acute Uncomplicated (without systemic symptoms) or Complicated (systemic symptoms)? @ -Uncomplicated Side effects of treatment? @ -No Exacerbation, Progression, or Severe Exacerbation? @ -No Poses a threat to life or bodily function? How? (Chest pain, USA, [place], pneumonia, PE, COPD, DKA, ARF, appy, cholecystitis, CVA, Diverticulitis, Homicidal, Suicidal, threat to staff... and all critical care pts) @ -Low likelihood - Lab Data Result diagrams: 02/11/24 18:30 02/11/24 18:30 Lab Results 02/11/24 02/11/24 02/11/24 Range/Units 18:30 18:30 18:30 WBC 3.4 L (3.8-10.6) k/uL RBC 3.61 L (3.80-5.40) m/uL Hgb 10.9 L (11.4-16.0) gm/dL Hct 34.1 (34.0-46.0) % MCV 94.5 (80.0-100.0) fL MCH 30.3 (25.0-35.0) pg MCHC 32.1 (31.0-37.0) g/dL RDW 14.3 (11.5-15.5) % Plt Count 222 (150-450) k/uL MPV 7.9 Neutrophils % 58 % Lymphocytes % 31 % Monocytes % 6 % Eosinophils % 2 % Basophils % 0 % Neutrophils # 2.0 (1.3-7.7) k/uL Lymphocytes # 1.1 (1.0-4.8) k/uL Monocytes # 0.2 (0-1.0) k/uL Eosinophils # 0.1 (0-0.7) k/uL Basophils # 0.0 (0-0.2) k/uL Hypochromasia Slight Sodium 140 (137-145) mmol/L Potassium 4.2 (3.5-5.1) mmol/L Chloride 109 H (98-107) mmol/L Carbon Dioxide 26 (22-30) mmol/L Anion Gap 5 mmol/L BUN 5 L (7-17) mg/dL Creatinine 0.69 (0.52-1.04) mg/dL Est GFR (CKD-EPI)AfAm >90 (>60 ml/min/1.73 sqM) Est GFR (CKD-EPI)NonAf >90 (>60 ml/min/1.73 sqM) Glucose 95 (74-99) mg/dL Plasma Lactic Acid Santhosh 0.8 (0.7-2.0) mmol/L Calcium 9.8 (8.4-10.2) mg/dL Total Bilirubin 1.1 (0.2-1.3) mg/dL AST 29 (14-36) U/L ALT 20 (4-34) U/L Alkaline Phosphatase 100 (38-126) U/L Total Protein 6.6 (6.3-8.2) g/dL Albumin 4.2 (3.5-5.0) g/dL Amylase 45 (30-110) U/L Lipase 37 (23-300) U/L Urine Color Urine Appearance (Clear) Urine pH (5.0-8.0) Ur Specific [place] (1.001-1.035) Urine Protein (Negative) Urine Glucose (UA) (Negative) Urine Ketones (Negative) Urine Blood (Negative) Urine Nitrite (Negative) Urine Bilirubin (Negative) Urine Urobilinogen (<2.0) mg/dL Ur Leukocyte Esterase (Negative) 02/11/24 Range/Units 18:30 WBC (3.8-10.6) k/uL RBC (3.80-5.40) m/uL Hgb (11.4-16.0) gm/dL Hct (34.0-46.0) % MCV (80.0-100.0) fL MCH (25.0-35.0) pg MCHC (31.0-37.0) g/dL RDW (11.5-15.5) % Plt Count (150-450) k/uL MPV Neutrophils % % Lymphocytes % % Monocytes % % Eosinophils % % Basophils % % Neutrophils # (1.3-7.7) k/uL Lymphocytes # (1.0-4.8) k/uL Monocytes # (0-1.0) k/uL Eosinophils # (0-0.7) k/uL Basophils # (0-0.2) k/uL Hypochromasia Sodium (137-145) mmol/L Potassium (3.5-5.1) mmol/L Chloride (98-107) mmol/L Carbon Dioxide (22-30) mmol/L Anion Gap mmol/L BUN (7-17) mg/dL Creatinine (0.52-1.04) mg/dL Est GFR (CKD-EPI)AfAm (>60 ml/min/1.73 sqM) Est GFR (CKD-EPI)NonAf (>60 ml/min/1.73 sqM) Glucose (74-99) mg/dL Plasma Lactic Acid [place]anth[place] (0.7-2.0) mmol/L Calcium (8.4-10.2) mg/dL Total Bilirubin (0.2-1.3) mg/dL AST (14-36) U/L ALT (4-34) U/L Alkaline Phosphatase (38-126) U/L Total Protein (6.3-8.2) g/dL Albumin (3.5-5.0) g/dL Amylase (30-110) U/L Lipase (23-300) U/L Urine Color Colorless Urine Appearance Clear (Clear) Urine pH 7.5 (5.0-8.0) Ur Specific [place] 1.009 (1.001-1.035) Urine Protein Negative (Negative) Urine Glucose (UA) Negative (Negative) Urine Ketones Negative (Negative) Urine Blood Negative (Negative) Urine Nitrite Negative (Negative) Urine Bilirubin Negative (Negative) Urine Urobilinogen <2.0 (<2.0) mg/dL Ur Leukocyte Esterase Negative (Negative) Disposition Clinical Impression: Nausea & vomiting, Abdominal pain Disposition: HOME SELF-CARE Condition: Good Instructions (If sedation given, give patient instructions): Abdominal Pain (ED) Additional Instructions: Follow-up with your PCP and surgeon. Report back to ER with any new or worsening symptoms. Prescriptions: Ondansetron Odt [Zofran Odt] 4 mg PO Q8HR PRN #20 tab PRN Reason: Nausea Is patient prescribed a controlled substance at d/c from ED?: No Referrals: None,Stated [Primary Care Provider] - 1-2 days Ryan Bahena MD [STAFF PHYSICIAN] - 1-2 days Time of Disposition: 20:58
[2024-02-11] MEDS: SODIUM CHLORIDE 0.9% 1,000 ML IV ONE (20:11)
[2024-02-11] MEDS: ONDANSETRON 4 MG/2 ML VIAL IVP STA (20:16)
[2024-02-11] MEDS: HYDROmorphone 0.5 MG/0.5 ML SYRINGE IVP STA (20:22)
[2024-02-11 20:38] LABS: Appearance,Urine Clear (Clear); Bilirubin,Urine Negative (Negative); Blood,Urine Negative (Negative); Color,Urine Colorless; Glucose,Urine (UA) Negative (Negative); Ketones,Urine Negative (Negative); Leukocyte Esterase,Urine Negative (Negative); Nitrite,Urine Negative (Negative); PH, Urine 7.5 (5.0-8.0); Protein,Urine Negative (Negative); Specific Gravity,Urine 1.009 (1.001-1.035); Urobilinogen,Urine <2.0 mg/dL (<2.0)
[2024-02-11] MEDS: KETOROLAC 15 MG/ML 1 ML VIAL IVP STA (21:18)
[2024-02-11 21:26] VITALS: BP 119/79; PULSE 55
== END 2024-02-11 21:25 | disposition home or self-care (01) ==
LOC: EC 17:22
DX: R10.13 Epigastric pain (principal); R07.9 Chest pain, unspecified; R11.2 Nausea with vomiting, unspecified; Z88.2 Allergy status to sulfonamides; Z88.0 Allergy status to penicillin; Z88.1 Allergy status to other antibiotic agents; Z91.048 Other nonmedicinal substance allergy status
CPT/HCPCS: 36415; 80053; 82150; 83605; 83690; 85025; 81003; 99284; 96374; 96375 ×2; 96361; J2405; J1885; J1170

== ENCOUNTER 2024-02-17 21:05 | Emergency (ER) | payer OTHER ==
[2024-02-17 21:20] VITALS: TEMP 98
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
[2024-02-17] MEDS: ACETAMINOPHEN TAB 500 MG TAB PO STA (23:49)
[2024-02-18] MEDS: KETOROLAC 15 MG/ML 1 ML VIAL IM STA
--- NOTE | 2024-02-18 | XR ---
EXAM: XR Left Wrist Complete, 3 or More Views CLINICAL HISTORY: ITS.REASON XR Reason: injury TECHNIQUE: Frontal, lateral and oblique views of the left wrist. COMPARISON: No relevant prior studies available. FINDINGS: Bones/joints: Unremarkable. No acute fracture. No dislocation. Soft tissues: Unremarkable. No radiopaque foreign body. IMPRESSION: Normal left wrist x-rays.
--- NOTE | 2024-02-18 | XR ---
EXAM: XR Left Hand Complete, 3 or More Views CLINICAL HISTORY: ITS.REASON XR Reason: injury TECHNIQUE: Frontal, lateral and oblique views of the left hand. COMPARISON: No relevant prior studies available. FINDINGS: Bones/joints: Unremarkable. No acute fracture. No dislocation. Soft tissues: Unremarkable. No radiopaque foreign body. IMPRESSION: No acute fracture.
[2024-02-18 00:05] VITALS: BP 120/82; PULSE 60; RESP 18
== END 2024-02-18 00:03 | disposition home or self-care (01) ==
LOC: EC 21:05
DX: M25.532 Pain in left wrist (principal); Z91.048 Other nonmedicinal substance allergy status; Z88.5 Allergy status to narcotic agent; Z88.0 Allergy status to penicillin; Z88.2 Allergy status to sulfonamides; Z88.8 Allergy status to other drugs, medicaments and biological substances; Y04.8XXA Assault by other bodily force, initial encounter
CPT/HCPCS: 96372; 99284

== ENCOUNTER 2024-03-02 17:45 | Emergency (ER) | payer OTHER ==
[2024-03-02] MEDS ORDERED: PANTOPRAZOLE 40 MG/10 ML VIAL ONE (19:16)
[2024-03-02] MEDS ORDERED: HYDROmorphone 0.5 MG/0.5 ML SYRINGE ONE ×3 (19:16→21:42)
[2024-03-02] MEDS ORDERED: ONDANSETRON 4 MG/2 ML VIAL ONE (19:16)
[2024-03-02] MEDS ORDERED: SODIUM CHLORIDE 0.9% 1,000 ML BAG ONE (19:35)
[2024-03-02] MEDS ORDERED: KETOROLAC 15 MG/ML 1 ML VIAL ONE (20:54)
--- NOTE | 2024-04-07 14:00 | CT ---
[id number] CRISTIANE LAMAS : 1990 EXAM: CT abdomen pelvis with IV contrast. DATE: 03/02/2024 21:25 INDICATION: ABDOMINAL PAIN POST-OP APPY. 100CC COMPARISON: None, please note PACS downtime occurred during the radiologist interpretation of these i mages with limited priors/reports.. TECHNIQUE: CT abdomen pelvis with IV contrast., with axial imaging and sagittal and coronal reformats following the administration of 100 cc of Isovue-300 IV contrast material.. One or more CT dose reduction strat egies were utilized during this examination. Total DLP administered was 1073 mGycm. FINDINGS: LOWER CHEST: Unremarkable ABDOMEN LIVER: Unremarkable GALLBLADDER AND BILE DUCTS: The gallbladder surgically absent. PANCREAS: Unremarkable. SPLEEN: Unremarkable. ADRENAL GLANDS: Unremarkable. KIDNEYS AND URETERS: No evidence of hydronephrosis or renal calculus. The ureters are unremarkable. PELVIS BLADDER: Unremarkable REPRODUCTIVE: Unremarkable. ABDOMEN & PELVIS STOMACH AND BOWEL: Postsurgical changes to the gastroesophageal junction. Large amount stool in the c olon. Stomach and duodenum are unremarkable. No evidence of bowel obstruction. PERITONEUM: No evidence of pneumoperitoneum. No organizing fluid collection there is free fluid in th e pelvis. VASCULATURE: No evidence of aortic aneurysm. MUSCULOSKELETAL: No acute osseous abnormalities LYMPH NODES: No gross evidence for lymphadenopathy. SOFT TISSUE/ABDOMINAL WALL: Unremarkable IMPRESSION: 1. Post surgical changes in the appendix without evidence for organizing fluid collection to suggest abscess. There is simple free fluid in the pelvis presumably physiologic versus secondary to recent surgery. 2.Large amount stool in the colon with [facility], , 04/07/2024 1:57 PM
== END 2024-03-02 22:08 | disposition home or self-care (01) ==
LOC: EC 17:45
CPT/HCPCS: 74177; 96374; 96375; 96376; 99285

== ENCOUNTER 2024-03-05 15:50 | Emergency (ER) | payer OTHER ==
[2024-03-05] MEDS ORDERED: IBUPROFEN 600 MG TAB PO ONE (20:46)
[2024-03-05] MEDS ORDERED: HYDROcodone/APAP 5-325MG 1 EACH TAB ONE (23:44)
== END 2024-03-05 23:52 | disposition home or self-care (01) ==
LOC: EC 15:50
CPT/HCPCS: 71046; 99283

== ENCOUNTER 2024-03-08 23:04 | Emergency (ER) | payer OTHER ==
[~2024-03-08 23:04] MED LIST changes: -LIDOCAINE 1% (10MG/ML) FOR IV START INTRADERMA PRN; +SODIUM CHLORIDE 0.9% 1,000 ML BAG ONE
[2024-03-09] MEDS ORDERED: METOCLOPRAMIDE 5 MG/ML 2 ML VIAL ONE (03:02)
[2024-03-09] MEDS ORDERED: HYDROmorphone 1 MG/ML 1 ML SYRINGE ONE (03:02)
== END 2024-03-09 02:00 | disposition home or self-care (01) ==
LOC: EC 23:04
DX: R11.2 Nausea with vomiting, unspecified (principal); R19.7 Diarrhea, unspecified; R10.9 Unspecified abdominal pain
CPT/HCPCS: 99284

== ENCOUNTER 2024-03-15 20:18 | Emergency (ER) | payer OTHER ==
[2024-03-15 20:22] VITALS: RESP 18; TEMP 98.9
--- NOTE | 2024-03-15 21:01 | ED ---
Abdominal Pain HPI - General Chief Complaint: Abdominal Pain Stated Complaint: Severe abd pain Time Seen by Provider: 03/15/24 20:31 Source: patient, RN notes reviewed Mode of arrival: ambulatory Limitations: no limitations - History of Present Illness Initial Comments: 33-year-old female presents emergency department chief complaint of right lower quadrant abdominal pain. Patient has been experiencing lower quadrant abdominal pain over the past few weeks during appendectomy. Patient has been evaluated multiple times in the past few weeks. Patient had an appointment with her general surgeon 03/10, she was discharged home for antibiotics however she experienced a sensitivity to the medication was instructed to discontinue this. She states over the past 24 hours she is experiencing worsening right lower quadrant abdominal pain and has been experiencing multiple episodes of diarrhea over the past week as well. She endorses nausea with no episodes of vomiting. Denies fevers or chills. Denies hematochezia, dark or tarry stools. CT scan co mpleted approximately 2 weeks ago after appendectomy with no acute findings. - Related Data Home Medications Medication Instructions Recorded Confirmed Docusate [Colace] 100 mg PO BID PRN 12/26/23 01/27/24 Omeprazole 20 mg PO BID 12/26/23 01/27/24 Escitalopram [Lexapro] 10 mg PO AC-LUNCH 01/17/24 01/27/24 Ondansetron [Zofran] 4 mg PO Q8HR PRN 01/17/24 01/27/24 Previous Rx's Medication Instructions Recorded Ibuprofen [Motrin] 600 mg PO Q6HR PRN #40 tab 12/13/23 HYDROcodone/APAP 5-325MG [[place] 1 tab PO Q6HR PRN 3 Days #12 tab 01/29/24 5-325] Ondansetron Odt [Zofran Odt] 4 mg PO Q8HR PRN #12 tab 01/31/24 Ondansetron Odt [Zofran Odt] 4 mg PO Q8HR PRN #20 tab 02/11/24 Allergies Allergy/AdvReac Type Severity Reaction Status Date / Time sulfamethoxazole Allergy Severe Anaphylaxis Verified 03/15/24 20:22 [From Bactrim] trimethoprim [From Bactrim] Allergy Severe Anaphylaxis Verified 03/15/24 20:22 adhesive tape Allergy Rash/Hives Verified 03/15/24 20:22 aloe vera Allergy Rash/Hives Verified 03/15/24 20:22 amoxicillin [From Augmentin] Allergy Itching Verified 03/15/24 20:22 azithromycin Allergy Rash/Hives Verified 03/15/24 20:22 cephalexin Allergy Rash/Hives Verified 03/15/24 20:22 clavulanic acid Allergy Itching Verified 03/15/24 20:22 [From Augmentin] metronidazole [From Flagyl] Allergy Rash/Hives Verified 03/15/24 20:22 Penicillins Allergy Rash/Hives Verified 03/15/24 20:22 alprazolam [From Xanax] AdvReac MAKES Verified 03/15/24 20:22 PARANOID dicyclomine [From Bentyl] AdvReac constipatio Verified 03/15/24 20:22 n Review of Systems ROS Statement: Those systems with pertinent positive or pertinent negative responses have been documented in the HPI. ROS Other: All systems not noted in ROS Statement are negative. Past Medical History Past Medical History: Blood Disorder, GERD/Reflux Additional Past Medical History / Comment(s): Endometriosis, polycystic ovarian syndrome. IRON DEFICIENCY ANEMIA. Stomach Ulcer. Hx ovarian cyst. History of Any Multi-Drug Resistant Organisms: None Reported Past Surgical History: Ablation, Appendectomy, Section, Cholecystectomy, Hernia Repair, Hysterectomy, Tubal Ligation, Uterine Ablation Additional Past Surgical History / Comment(s): Laparoscopy X2, Section X3, right ovary and right tube removed, then total hysterectomy including left ovary and left fallopian tube, cyst removed from chest, ADHESION REMOVAL FROM PAST CSECTION, vaginal/pelvic biopsy. Scar tissure removal abdomen L upper lower Past Anesthesia/Blood Transfusion Reactions: No Reported Reaction Past Psychological History: Anxiety, Depression Smoking Status: Never smoker Past Alcohol Use History: Occasional Past Drug Use History: None Reported - Past Family History Mother Family Medical History: Deep Vein Thrombosis (DVT), Hyperlipidemia Additional Family Medical History / Comment(s): Depression and anxiety. DVT to arm after surgery. General Exam Limitations: no limitations General appearance: alert, in no apparent distress Head exam: Present: atraumatic, normocephalic, normal inspection Eye exam: Present: normal appearance, PERRL, EOMI. Absent: scleral icterus, conjunctival injection, periorbital swelling ENT exam: Present: normal exam, mucous membranes moist Neck exam: Present: normal inspection. Absent: tenderness, meningismus, lymphadenopathy Respiratory exam: Present: normal lung sounds bilaterally. Absent: respiratory distress, wheezes, rales, rhonchi, stridor Cardiovascular Exam: Present: regular rate, normal rhythm, normal heart sounds. Absent: systolic murmur, diastolic murmur, rubs, gallop, clicks GI/Abdominal exam: Present: soft, tenderness (RLQ, mid abdomen), normal bowel sounds. Absent: distended, guarding, rebound, rigid Extremities exam: Present: normal inspection, full ROM, normal capillary refill. Absent: tenderness, pedal edema, joint swelling, calf tenderness Back exam: Present: normal inspection Skin exam: Present: warm, dry, intact, normal color. Absent: rash Course Vital Signs 03/15/24 03/15/24 20:21 23:50 Temperature 98.9 F Pulse Rate 95 83 Respiratory 18 18 Rate Blood Pressure 140/87 100/71 O2 Sat by Pulse 100 100 Oximetry Medical Decision Making - Medical Decision Making Was pt. sent in by a medical professional or institution (, PA, CLUB STEWARD, urgent care, hospital, or [facility]...) When possible be specific @ -No Did you speak to anyone other than the patient for history (EMS, parent, family, police, friend...)? What history was obtained from this source @ -No Did you review nursing and triage notes (agree or disagree)? Why? @ -I reviewed and agree with nursing and triage notes Were old charts reviewed (outside hosp., previous admission, EMS record, old EKG, old radiological studies, urgent care reports/EKG's, [facility] records)? Report findings @ -No old charts were reviewed Differential Diagnosis (chest pain, altered mental status, abdominal pain women, abdominal pain men, vaginal bleeding, weakness, fever, dyspnea, syncope, headache, dizziness, GI bleed, back pain, seizure, CVA, palpatations, mental health, musculoskeletal)? @ -Differential Abdominal Pain Women: Appendicitis, Cholecystitis, diverticulosis, ischemic bowel, pancreatitis, hepatitis, UTI, gastroenteritis, AAA, incarcerated hernia, bowel obstruction, constipation, inflammatory bowel, hepatitis, peptic ulcer disease, splenic infarction, perforated viscus, vulvitis, ovarian torsion, PID, kidney stone, placenta abruption, this is not meant to be an all-inclusive list EKG interpreted by me (3pts min.). @ -none X-rays interpreted by me (1pt min.). @ -None done CT interpreted by me (1pt min.). @ -None done U/S interpreted by me (1pt. min.). @ -None done What testing was considered but not performed or refused? (CT, X-rays, U/S, labs)? Why? @ -CT imaging significant for this time. On examination patient noted to have mild right lower quadrant abdominal pain with no signs of rebound tenderness or rigidity. Equal bowel sounds present throughout. Labs including CBC, CMP, amylase lipase within normal limits therefore minimal clinical concern for intraabdominal process at this time. Patient did agree with deferring CT imaging at this time. What meds were considered but not given or refused? Why? @ -None Did you discuss the management of the patient with other professionals (professionals i.e. , PA, CLUB STEWARD, lab, RT, psych nurse, director of social work, cocoa powder mixer operator, teacher, senior vice president and chief information officer, counseling case manager)? Give summary @ -No Was smoking cessation discussed for >3mins.? @ -No Was critical care preformed (if so, how long)? @ -No Were there social determinants of health that impacted care today? How? (Homelessness, low income, unemployed, alcoholism, drug addiction, tr ansportation, low edu. Level, literacy, decrease access to med. care, care home, rehab)? @ -No Was there de-escalation of care discussed even if they declined (Discuss DNR or withdrawal of care, Hospice)? DNR status @ -No What co-morbidities impacted this encounter? (DM, HTN, Smoking, COPD, CAD, Cancer, CVA, ARF, Chemo, Hep., AIDS, mental health diagnosis, sleep apnea, morbid obesity)? @ -None Was patient admitted / discharged? Hospital course, mention meds given and route, prescriptions, significant lab abnormalities, going to OR and other pertinent info. @ -Discharge. 33-year-old female with abdominal pain. On examination patient noted to have mild right lower quadrant abdominal pain on palpation with no signs of rebound tenderness or rigidity. Patient provided with pain medication, antiemetics results of labs and urine. CBC, CMP, and amylase lipase within normal limits. Urinalysis no signs of infection. On reevaluation, patient states that she is feeling markedly better. Recommend the patient follows up as scheduled with her general surgeon on Saturday for further evaluation. All questions answered at bedside and strict return parameters discussed with the patient she is verbalized understanding. Discussed with Dr. Araujo. Undiagnosed new problem with uncertain prognosis? @ -No Drug Therapy requiring intensive monitoring for toxicity (Heparin, Nitro, Insulin, Cardizem)? @ -No Were any procedures done? @ -No Diagnosis/symptom? @ -abdominal Pain Acute, or Chronic, or Acute on Chronic? @ -Acute Uncomplicated (without systemic symptoms) or Complicated (systemic symptoms)? @ -uncomplicated Side effects of treatment? @ -No Exacerbation, Progression, or Severe Exacerbation? @ -No Poses a threat to life or bodily function? How? (Chest pain, USA, OR, pneumonia, PE, COPD, DKA, ARF, appy, cholecystitis, CVA, Diverticulitis, Homicidal, Suicidal, threat to staff... and all critical care pts) @ -No - Lab Data Result diagrams: 03/15/24 21:50 03/15/24 21:50 Lab Results 03/15/24 03/15/24 03/15/24 Range/Units 21:50 21:50 21:50 WBC 3.8 (3.8-10.6) k/uL RBC 3.57 L (3.80-5.40) m/uL Hgb 10.8 L (11.4-16.0) gm/dL Hct 32.6 L (34.0-46.0) % MCV 91.2 (80.0-100.0) fL MCH 30.2 (25.0-35.0) pg MCHC 33.1 (31.0-37.0) g/dL RDW 13.6 (11.5-15.5) % Plt Count 227 (150-450) k/uL MPV 7.3 Neutrophils % 62 % Lymphocytes % 30 % Monocytes % 5 % Eosinophils % 1 % Basophils % 0 % Neutrophils # 2.4 (1.3-7.7) k/uL Lymphocytes # 1.1 (1.0-4.8) k/uL Monocytes # 0.2 (0-1.0) k/uL Eosinophils # 0.0 (0-0.7) k/uL Basophils # 0.0 (0-0.2) k/uL Sodium 140 (137-145) mmol/L Potassium 4.5 (3.5-5.1) mmol/L Chloride 101 (98-107) mmol/L Carbon Dioxide 27 (22-30) mmol/L Anion Gap 12 mmol/L BUN 10 (7-17) mg/dL Creatinine 0.68 (0.52-1.04) mg/dL Est GFR (CKD-EPI)AfAm >90 (>60 ml/min/1.73 sqM) Est GFR (CKD-EPI)NonAf >90 (>60 ml/min/1.73 sqM) Glucose 104 H (74-99) mg/dL Calcium 9.8 (8.4-10.2) mg/dL Total Bilirubin 0.8 (0.2-1.3) mg/dL AST 63 H (14-36) U/L ALT 48 H (4-34) U/L Alkaline Phosphatase 92 (38-126) U/L Total Protein 6.9 (6.3-8.2) g/dL Albumin 4.4 (3.5-5.0) g/dL Amylase 54 (30-110) U/L Lipase 29 (23-300) U/L Urine Color Colorless Urine Appearance Clear (Clear) Urine pH 8.0 (5.0-8.0) Ur Specific [place] 1.016 (1.001-1.035) Urine Protein Negative (Negative) Urine Glucose (UA) Negative (Negative) Urine Ketones Negative (Negative) Urine Blood Negative (Negative) Urine Nitrite Negative (Negative) Urine Bilirubin Negative (Negative) Urine Urobilinogen <2.0 (<2.0) mg/dL Ur Leukocyte Esterase Negative (Negative) Disposition Clinical Impression: Abdominal pain, Diarrhea Disposition: HOME SELF-CARE Condition: Good Instructions (If sedation given, give patient instructions): Abdominal Pain (ED) Additional Instructions: Follow-up as scheduled with your general surgeon. Return to the emergency department for any new or worsening symptoms. Is patient prescribed a controlled substance at d/c from ED?: No Referrals: None,Stated [Primary Care Provider] - 1-2 days Time of Disposition: 23:16
[2024-03-15] MEDS: SODIUM CHLORIDE 0.9% 1,000 ML IV STA (21:59)
[2024-03-15] MEDS: KETOROLAC 15 MG/ML 1 ML VIAL IVP STA (22:01)
[2024-03-15 22:02] LABS: Basophils % (A) 0 %; Eosinophils % (A) 1 %; HCT 32.6 % (34.0-46.0); HGB 10.8 gm/dL (11.4-16.0); Lymphocytes # (A) 1.1 k/uL (1.0-4.8); Lymphocytes % (A) 30 %; MCH 30.2 pg (25.0-35.0); MCHC 33.1 g/dL (31.0-37.0); MCV 91.2 fL (80.0-100.0); Mean Platelet Volume 7.3; Monocytes # (A) 0.2 k/uL (0-1.0); Monocytes % (A) 5 %; Neutrophils # (A) 2.4 k/uL (1.3-7.7); Neutrophils % (A) 62 %; Platelet Count 227 k/uL (150-450); RBC 3.57 m/uL (3.80-5.40); RDW 13.6 % (11.5-15.5); WBC 3.8 k/uL (3.8-10.6)
[2024-03-15] MEDS: HYDROmorphone 1 MG/ML 1 ML SYRINGE IVP STA ×2 (22:04→23:52)
[2024-03-15] MEDS: METOCLOPRAMIDE 5 MG/ML 2 ML VIAL IVP STA (22:06)
[2024-03-15 22:16] LABS: Appearance,Urine Clear (Clear); Bilirubin,Urine Negative (Negative); Blood,Urine Negative (Negative); Color,Urine Colorless; Glucose,Urine (UA) Negative (Negative); Ketones,Urine Negative (Negative); Leukocyte Esterase,Urine Negative (Negative); Nitrite,Urine Negative (Negative); Protein,Urine Negative (Negative); Specific Gravity,Urine 1.016 (1.001-1.035); Urobilinogen,Urine <2.0 mg/dL (<2.0)
[2024-03-15 22:43] LABS: ALT 48 U/L (4-34); AST 63 U/L (14-36); African American GFR (CKD) >90 (>60 ml/min/1.73 sqM); Albumin 4.4 g/dL (3.5-5.0); Alkaline Phosphatase 92 U/L (38-126); Amylase 54 U/L (30-110); Anion Gap 12 mmol/L; Blood Urea Nitrogen 10 mg/dL (7-17); Calcium 9.8 mg/dL (8.4-10.2); Carbon Dioxide 27 mmol/L (22-30); Chloride 101 mmol/L (98-107); Glucose 104 mg/dL (74-99); Lipase 29 U/L (23-300); Non-African American GFR(CKD) >90 (>60 ml/min/1.73 sqM); Potassium 4.5 mmol/L (3.5-5.1); Sodium 140 mmol/L (137-145); Total Bilirubin 0.8 mg/dL (0.2-1.3); Total Protein 6.9 g/dL (6.3-8.2)
[2024-03-15 23:51] VITALS: BP 100/71; PULSE 83
== END 2024-03-15 23:59 | disposition home or self-care (01) ==
LOC: EC 20:18
DX: R19.7 Diarrhea, unspecified (principal); R10.9 Unspecified abdominal pain; Z88.2 Allergy status to sulfonamides; Z91.09 Other allergy status, other than to drugs and biological substances; Z88.6 Allergy status to analgesic agent; Z88.0 Allergy status to penicillin; Z88.8 Allergy status to other drugs, medicaments and biological substances; Z88.1 Allergy status to other antibiotic agents
CPT/HCPCS: 36415; 80053; 82150; 83690; 85025; 81003; 99284; 96374; 96375 ×2; 96376; 96361; J2765; J1170; J1885

== ENCOUNTER 2024-03-16 15:20 | Emergency (ER) | payer OTHER ==
[2024-03-16 15:36] VITALS: TEMP 98.4
[2024-03-16] MEDS: SODIUM CHLORIDE 0.9% 1,000 ML IV STA (16:12)
[2024-03-16] MEDS: HYDROmorphone 1 MG/ML 1 ML SYRINGE IVP STA (16:12)
[2024-03-16] MEDS: ONDANSETRON 4 MG/2 ML VIAL IVP STA (16:12)
[2024-03-16 16:58] LABS: Basophils % (A) 0 %; Eosinophils % (A) 1 %; HCT 31.4 % (34.0-46.0); HGB 10.6 gm/dL (11.4-16.0); Hypochromasia Slight; Lymphocytes # (A) 1.1 k/uL (1.0-4.8); Lymphocytes % (A) 28 %; MCH 31.2 pg (25.0-35.0); MCHC 33.8 g/dL (31.0-37.0); MCV 92.2 fL (80.0-100.0); Mean Platelet Volume 7.3; Monocytes # (A) 0.2 k/uL (0-1.0); Monocytes % (A) 5 %; Neutrophils # (A) 2.5 k/uL (1.3-7.7); Neutrophils % (A) 64 %; Platelet Count 210 k/uL (150-450); RBC 3.41 m/uL (3.80-5.40); RDW 13.7 % (11.5-15.5)
[2024-03-16 17:06] LABS: Appearance,Urine Cloudy (Clear); Bilirubin,Urine Negative (Negative); Blood,Urine Negative (Negative); Calcium Oxalate Crystals,Urine Moderate /hpf; Color,Urine Yellow; Glucose,Urine (UA) Negative (Negative); Ketones,Urine Negative (Negative); Leukocyte Esterase,Urine Small (Negative); Mucus,Urine Many /hpf; Nitrite,Urine Negative (Negative); PH, Urine 5.5 (5.0-8.0); Protein,Urine Trace (Negative); RBC,Urine 4 /hpf (0-5); Specific Gravity,Urine 1.023 (1.001-1.035); Squamous Epithelial Cell,Urine 2 /hpf (0-4); Urobilinogen,Urine <2.0 mg/dL (<2.0); WBC,Urine 6 /hpf (0-5)
[2024-03-16 17:21] LABS: ALT 46 U/L (4-34); AST 57 U/L (14-36); African American GFR (CKD) >90 (>60 ml/min/1.73 sqM); Albumin 4.1 g/dL (3.5-5.0); Alkaline Phosphatase 90 U/L (38-126); Amylase 51 U/L (30-110); Anion Gap 5 mmol/L; Blood Urea Nitrogen 9 mg/dL (7-17); Calcium 9.7 mg/dL (8.4-10.2); Carbon Dioxide 27 mmol/L (22-30); Chloride 107 mmol/L (98-107); Glucose 93 mg/dL (74-99); Lipase 28 U/L (23-300); Non-African American GFR(CKD) >90 (>60 ml/min/1.73 sqM); Potassium 4.1 mmol/L (3.5-5.1); Sodium 139 mmol/L (137-145); Total Protein 6.5 g/dL (6.3-8.2)
[2024-03-16 17:54] VITALS: RESP 16
[2024-03-16] MEDS: HYDROmorphone 0.5 MG/0.5 ML SYRINGE IVP STA (18:46)
--- NOTE | 2024-03-16 20:15 | CT ---
EXAMINATION TYPE: CT abdomen pelvis w con CT DLP: 1841.4 mGycm, Automated exposure control for dose reduction was used. DATE OF EXAM: 03/16/2024 7:08 PM COMPARISON: CT abdomen pelvis most recent from CLINICAL INDICATION:Female, 33 years old with history of abdominal pain; ABDOMINAL PAIN, AFTER APPEND IX REMOVAL 3 WEEKS AGO TECHNIQUE: Axial CT abdomen pelvis w con;Sagittal and coronal reformats were created on a separate w orkstation. Contrast used:100 mL of Isovue 300 with IV Contrast, (none if empty) Oral contrast used: without Oral Contrast (none if empty) FINDINGS: LOWER CHEST: Unremarkable ABDOMEN LIVER: Unremarkable GALLBLADDER AND BILE DUCTS: Gallbladder is surgically absent. No biliary ductal dilatation. PANCREAS: Unremarkable. SPLEEN: Unremarkable. ADRENAL GLANDS: Unremarkable. KIDNEYS AND URETERS: No evidence of hydronephrosis. There is a punctate nonobstructive calculus in th e left kidney. The ureters are unremarkable. PELVIS BLADDER: Incompletely distended but grossly unremarkable. REPRODUCTIVE: The uterus is surgically absent. Redemonstrated clip within the left cul-de-sac. ABDOMEN & PELVIS STOMACH AND BOWEL: Postsurgical changes at the GE junction redemonstrated. No hiatal hernia. Small julio c wel is of normal caliber. The appendix has been surgically removed. There are no significant areas of fat stranding with or fluid collections in the right lower quadrant. No evidence of bowel obstructio n. PERITONEUM/RETROPERITONEUM: No evidence of pneumoperitoneum or free fluid. VASCULATURE: No evidence of aortic aneurysm. MUSCULOSKELETAL: No acute osseous abnormalities LYMPH NODES: No gross evidence for lymphadenopathy. SOFT TISSUE/ABDOMINAL WALL: Subtle areas of skin thickening along the anterior abdominal wall at the umbilicus may relate to previous surgical changes. IMPRESSION: 1. No acute intrarenal/pelvic process. 2. Post surgical changes.
--- NOTE | 2024-03-16 20:18 | ED ---
Abdominal Pain HPI - General Chief Complaint: Abdominal Pain Stated Complaint: abd pain-post op comp Time Seen by Provider: 03/16/24 15:46 Source: patient Mode of arrival: ambulatory Limitations: no limitations - History of Present Illness Initial Comments: 33-year-old female presenting with chief complaint of abdominal pain. Patient had an appendectomy at the beginning of the month. She was seen here yesterday and now today for worsening right lower quadrant pain. She was previously seen by her surgeon and was started on Augmentin for possible fluid collection but stopped taking it because of itching. No dysuria or hematuria. No diarrhea or constipation. - Related Data Home Medications Medication Instructions Recorded Confirmed Omeprazole 40 mg PO HS 03/16/24 03/16/24 Ondansetron Odt [Zofran Odt] 4 mg PO Q6HR PRN 03/16/24 03/16/24 Allergies Allergy/AdvReac Type Severity Reaction Status Date / Time sulfamethoxazole Allergy Severe Anaphylaxis Verified 03/15/24 20:22 [From Bactrim] trimethoprim [From Bactrim] Allergy Severe Anaphylaxis Verified 03/15/24 20:22 adhesive tape Allergy Rash/Hives Verified 03/15/24 20:22 aloe vera Allergy Rash/Hives Verified 03/15/24 20:22 amoxicillin [From Augmentin] Allergy Itching Verified 03/15/24 20:22 azithromycin Allergy Rash/Hives Verified 03/15/24 20:22 cephalexin Allergy Rash/Hives Verified 03/15/24 20:22 clavulanic acid Allergy Itching Verified 03/15/24 20:22 [From Augmentin] metronidazole [From Flagyl] Allergy Rash/Hives Verified 03/15/24 20:22 Penicillins Allergy Rash/Hives Verified 03/15/24 20:22 alprazolam [From Xanax] AdvReac MAKES Verified 03/15/24 20:22 PARANOID dicyclomine [From Bentyl] AdvReac constipatio Verified 03/15/24 20:22 n Review of Systems ROS Statement: Those systems with pertinent positive or pertinent negative responses have been documented in the HPI. ROS Other: All systems not noted in ROS Statement are negative. Past Medical History Past Medical History: Blood Disorder, GERD/Reflux Additional Past Medical History / Comment(s): Endometriosis, polycystic ovarian syndrome. IRON DEFICIENCY ANEMIA. Stomach Ulcer. Hx ovarian cyst. History of Any Multi-Drug Resistant Organisms: None Reported Past Surgical History: Ablation, Appendectomy, Section, Cholecystectomy, Hernia Repair, Hysterectomy, Tubal Ligation, Uterine Ablation Additional Past Surgical History / Comment(s): Laparoscopy X2, Section X3, right ovary and right tube removed, then total hysterectomy including left ovary and left fallopian tube, cyst removed from chest, ADHESION REMOVAL FROM PAST CSECTION, vaginal/pelvic biopsy. Scar tissure removal abdomen L upper lower Past Anesthesia/Blood Transfusion Reactions: No Reported Reaction Past Psychological History: Anxiety, Depression Smoking Status: Never smoker Past Alcohol Use History: Occasional Past Drug Use History: None Reported - Past Family History Mother Family Medical History: Deep Vein Thrombosis (DVT), Hyperlipidemia Additional Family Medical History / Comment(s): Depression and anxiety. DVT to arm after surgery. General Exam Limitations: no limitations General appearance: alert, in no apparent distress Head exam: Present: atraumatic, normocephalic Eye exam: Present: normal appearance, EOMI Neck exam: Present: normal inspection. Absent: meningismus Respiratory exam: Present: normal lung sounds bilaterally. Absent: respiratory distress, wheezes, rales, rhonchi, stridor Cardiovascular Exam: Present: regular rate, normal rhythm, normal heart sounds. Absent: systolic murmur, diastolic murmur, rubs, gallop, clicks GI/Abdominal exam: Present: soft, tenderness. Absent: distended, guarding, rebound, rigid Neurological exam: Present: alert, oriented X3 Psychiatric exam: Present: normal affect, normal mood Skin exam: Present: warm, dry Course Vital Signs 03/16/24 03/16/24 03/16/24 15:33 17:53 20:31 Temperature 98.4 F Pulse Rate 89 98 87 Respiratory 20 16 16 Rate Blood Pressure 147/100 119/80 123/80 O2 Sat by Pulse 98 98 97 Oximetry Medical Decision Making - Medical Decision Making Was pt. sent in by a medical professional or institution (, PA, COMPLIANCE ENGINEER, urgent care, hospital, or longterm...) When possible be specific @ -No Did you speak to anyone other than the patient for history (EMS, parent, family, police, friend...)? What history was obtained from this source @ -No Did you review nursing and triage notes (agree or disagree)? Why? @ -I reviewed and agree with nursing and triage notes Were old charts reviewed (outside hosp., previous admission, EMS record, old EKG, old radiological studies, urgent care reports/EKG's, longterm records)? Report findings @ -No old charts were reviewed Differential Diagnosis (chest pain, altered mental status, abdominal pain women, abdominal pain men, vaginal bleeding, weakness, fever, dyspnea, syncope, headache, dizziness, GI bleed, back pain, seizure, CVA, palpatations, mental health, musculoskeletal)? @ -MDM Differential Abdominal Pain Women: Appendicitis, Cholecystitis, diverticulosis, ischemic bowel, pancreatitis, hepatitis, UTI, gastroenteritis, AAA, incarcerated hernia, bowel obstruction, constipation, inflammatory bowel, hepatitis, peptic ulcer disease, splenic infarction, perforated viscus, vulvitis, ovarian torsion, PID, kidney stone, placenta abruption... This is not meant to be an all-inclusive list EKG interpreted by me (3pts min.). @ -As above X-rays interpreted by me (1pt min.). @ -None done CT interpreted by me (1pt min.). @ -CT shows no acute intrarenal/pelvic process. Postsurgical changes. U/S interpreted by me (1pt. min.). @ -None done What testing was considered but not performed or refused? (CT, X-rays, U/S, labs)? Why? @ -None What meds were considered but not given or refused? Why? @ -None Did you discuss the management of the patient with other professionals (professionals i.e. , PA, COMPLIANCE ENGINEER, lab, RT, psych nurse, psychiatric social worker supervisor, timber poisoner, teacher, complaint investigations officer, shoe caser)? Give summary @ -No Was smoking cessation discussed for >3mins.? @ -No Was critical care preformed (if so, how long)? @ -No Were there social determinants of health that impacted care today? How? (Homelessness, low income, unemployed, alcoholism, drug addiction, transportation, low edu. Level, literacy, decrease access to med. care, assisted, rehab)? @ -No Was there de-escalation of care discussed even if they declined (Discuss DNR or withdrawal of care, Hospice)? DNR status @ -No What co-morbidities impacted this encounter? (DM, HTN, Smoking, COPD, CAD, Cancer, CVA, ARF, Chemo, Hep., AIDS, mental health diagnosis, sleep apnea, m orbid obesity)? @ -None Was patient admitted / discharged? Hospital course, mention meds given and route, prescriptions, significant lab abnormalities, going to OR and other pertinent info. @ -33-year-old female presenting with chief complaint of right lower quadrant abdominal pain. She had an appendectomy at the beginning of the month. Has been having pain ever since then. History total hysterectomy with bilateral salpingo-oophorectomy. Labs show no leukocytosis. Urine shows 6 WBCs, patient is having no urinary symptoms. CT shows no acute process. Patient was given pain medication and is instructed to follow-up with her PCP and surgeon. Discharged home. Follow-up with PCP. Report back to ER with any new or worsening symptoms. Discussed return parameters and answered all questions. Patient conveyed verbal understanding and agreed to the plan. I discussed this case in detail with my attending Dr. Rangel Undiagnosed new problem with uncertain prognosis? @ -No Drug Therapy requiring intensive monitoring for toxicity (Heparin, Nitro, Insulin, Cardizem)? @ -No Were any procedures done? @ -No Diagnosis/symptom? @ -Abdominal pain Acute, or Chronic, or Acute on Chronic? @ -Acute Uncomplicated (without systemic symptoms) or Complicated (systemic symptoms)? @ -Uncomplicated Side effects of treatment? @ -No Exacerbation, Progression, or Severe Exacerbation? @ -No Poses a threat to life or bodily function? How? (Chest pain, [place], [place], pneumonia, PE, COPD, DKA, ARF, appy, cholecystitis, CVA, Diverticulitis, Homicidal, Suicidal, threat to staff... and all critical care pts) @ -Low likelihood - Lab Data Result diagrams: 03/16/24 16:06 03/16/24 16:06 Lab Results 03/16/24 03/16/24 03/16/24 Range/Units 16:06 16:06 16:06 WBC 4.0 (3.8-10.6) k/uL RBC 3.41 L (3.80-5.40) m/uL Hgb 10.6 L (11.4-16.0) gm/dL Hct 31.4 L (34.0-46.0) % MCV 92.2 (80.0-100.0) fL MCH 31.2 (25.0-35.0) pg MCHC 33.8 (31.0-37.0) g/dL RDW 13.7 (11.5-15.5) % Plt Count 210 (150-450) k/uL MPV 7.3 Neutrophils % 64 % Lymphocytes % 28 % Monocytes % 5 % Eosinophils % 1 % Basophils % 0 % Neutrophils # 2.5 (1.3-7.7) k/uL Lymphocytes # 1.1 (1.0-4.8) k/uL Monocytes # 0.2 (0-1.0) k/uL Eosinophils # 0.0 (0-0.7) k/uL Basophils # 0.0 (0-0.2) k/uL Hypochromasia Slight Sodium 139 (137-145) mmol/L Potassium 4.1 (3.5-5.1) mmol/L Chloride 107 (98-107) mmol/L Carbon Dioxide 27 (22-30) mmol/L Anion Gap 5 mmol/L BUN 9 (7-17) mg/dL Creatinine 0.61 (0.52-1.04) mg/dL Est GFR (CKD-EPI)AfAm >90 (>60 ml/min/1.73 sqM) Est GFR (CKD-EPI)NonAf >90 (>60 ml/min/1.73 sqM) Glucose 93 (74-99) mg/dL Plasma Lactic Acid Santhosh (0.7-2.0) mmol/L Calcium 9.7 (8.4-10.2) mg/dL Total Bilirubin 1.0 (0.2-1.3) mg/dL AST 57 H (14-36) U/L ALT 46 H (4-34) U/L Alkaline Phosphatase 90 (38-126) U/L Total Protein 6.5 (6.3-8.2) g/dL Albumin 4.1 (3.5-5.0) g/dL Amylase 51 (30-110) U/L Lipase 28 (23-300) U/L Urine Color Yellow Urine Appearance Cloudy H (Clear) Urine pH 5.5 (5.0-8.0) Ur Specific [place] 1.023 (1.001-1.035) Urine Protein Trace H (Negative) Urine Glucose (UA) Negative (Negative) Urine Ketones Negative (Negative) Urine Blood Negative (Negative) Urine Nitrite Negative (Negative) Urine Bilirubin Negative (Negative) Urine Urobilinogen <2.0 (<2.0) mg/dL Ur Leukocyte Esterase Small H (Negative) Urine RBC 4 (0-5) /hpf Urine WBC 6 H (0-5) /hpf Ur Squamous Epith Cells 2 (0-4) /hpf Calcium Oxalate Crystal Moderate H (None) /hpf Urine Mucus Many H (None) /hpf 03/16/24 Range/Units 16:06 WBC (3.8-10.6) k/uL RBC (3.80-5.40) m/uL Hgb (11.4-16.0) gm/dL Hct (34.0-46.0) % MCV (80.0-100.0) fL MCH (25.0-35.0) pg MCHC (31.0-37.0) g/dL RDW (11.5-15.5) % Plt Count (150-450) k/uL MPV Neutrophils % % Lymphocytes % % Monocytes % % Eosinophils % % Basophils % % Neutrophils # (1.3-7.7) k/uL Lymphocytes # (1.0-4.8) k/uL Monocytes # (0-1.0) k/uL Eosinophils # (0-0.7) k/uL Basophils # (0-0.2) k/uL Hypochromasia Sodium (137-145) mmol/L Potassium (3.5-5.1) mmol/L Chloride (98-107) mmol/L Carbon Dioxide (22-30) mmol/L Anion Gap mmol/L BUN (7-17) mg/dL Creatinine (0.52-1.04) mg/dL Est GFR (CKD-EPI)AfAm (>60 ml/min/1.73 sqM) Est GFR (CKD-EPI)NonAf (>60 ml/min/1.73 sqM) Glucose (74-99) mg/dL Plasma Lactic Acid Santhosh 0.9 (0.7-2.0) mmol/L Calcium (8.4-10.2) mg/dL Total Bilirubin (0.2-1.3) mg/dL AST (14-36) U/L ALT (4-34) U/L Alkaline Phosphatase (38-126) U/L Total Protein (6.3-8.2) g/dL Albumin (3.5-5.0) g/dL Amylase (30-110) U/L Lipase (23-300) U/L Urine Color Urine Appearance (Clear) Urine pH (5.0-8.0) Ur Specific [place] (1.001-1.035) Urine Protein (Negative) Urine Glucose (UA) (Negative) Urine Ketones (Negative) Urine Blood (Negative) Urine Nitrite (Negative) Urine Bilirubin (Negative) Urine Urobilinogen (<2.0) mg/dL Ur Leukocyte Esterase (Negative) Urine RBC (0-5) /hpf Urine WBC (0-5) /hpf Ur Squamous Epith Cells (0-4) /hpf Calcium Oxalate Crystal (None) /hpf Urine Mucus (None) /hpf Disposition Clinical Impression: Abdominal pain Disposition: HOME SELF-CARE Condition: Good Instructions (If sedation given, give patient instructions): Abdominal Pain (ED) Additional Instructions: Follow-up with your surgeon. Report back to ER with any new or worsening symptoms. Is patient prescribed a controlled substance at d/c from ED?: No Referrals: None,Stated [Primary Care Provider] - 1-2 days Salvador De Los Santos DO [Doctor of Osteopathic Medicine] - 1-2 days Time of Disposition: 20:18
[2024-03-16 20:32] VITALS: BP 123/80; PULSE 87
[2024-03-16] MEDS: KETOROLAC 15 MG/ML 1 ML VIAL IVP STA (20:41)
== END 2024-03-16 20:45 | disposition home or self-care (01) ==
LOC: EC 15:20
DX: R10.31 Right lower quadrant pain (principal); Z88.0 Allergy status to penicillin; Z88.2 Allergy status to sulfonamides; Z88.8 Allergy status to other drugs, medicaments and biological substances; Z88.1 Allergy status to other antibiotic agents; Z90.49 Acquired absence of other specified parts of digestive tract
CPT/HCPCS: 36415; 80053; 82150; 83605; 83690; 85025; 81001; 74177; 99284; 96374; 96375 ×2; 96376; 96361; J2405; J1170 ×2; J1885; Q9967; 25605

== ENCOUNTER 2024-03-17 18:00 | Emergency (ER) | payer OTHER ==
[2024-03-17 18:09] VITALS: RESP 18
--- NOTE | 2024-03-17 18:43 | ED ---
Abdominal Pain HPI - General Source: patient, RN notes reviewed Mode of arrival: ambulatory Limitations: no limitations <Erin Lawson - Last Filed: 03/17/24 18:39> - General Source: patient, RN notes reviewed Mode of arrival: ambulatory Limitations: no limitations - History of Present Illness MD Complaint: abdominal pain <Rosario Kelley - Last Filed: 03/17/24 22:58> - General Chief Complaint: Abdominal Pain Stated Complaint: abd pain,fall post op comp Time Seen by Provider: 03/17/24 18:40 - History of Present Illness Initial Comments: Quick [id number] female presenting with abdominal pain status post appendectomy 3 weeks ago. Patient states she has been seen in the past 3 days in the ER for right lower quadrant pain. Patient states she had a CT scan of the abdomen yesterday which was negative. Surgery was performed by Dr. Egan. Denies fever, chills, drainage from the incisions. (Erin Lawson) This is a 33-year-old female who presents to the emergency department for abdominal pain. Patient had an appendectomy 3 weeks ago and states that her pain was finally starting to improve. However, at work today she developed a muscle spasm in the area of her incision and states that this caused her to fall onto her bottom. She now has pain radiating from her lower back/coccyx radiating into the abdomen. She called her surgeon's office and they are able to see her for a follow-up appointment tomorrow. Currently taking ibuprofen and Tylenol which has not been effective for pain. (Rosario Kelley) - Related Data Home Medications Medication Instructions Recorded Confirmed Omeprazole 40 mg PO HS 03/16/24 03/16/24 Ondansetron Odt [Zofran Odt] 4 mg PO Q6HR PRN 03/16/24 03/16/24 Allergies Allergy/AdvReac Type Severity Reaction Status Date / Time sulfamethoxazole Allergy Severe Anaphylaxis Verified 03/17/24 18:09 [From Bactrim] trimethoprim [From Bactrim] Allergy Severe Anaphylaxis Verified 03/17/24 18:09 adhesive tape Allergy Rash/Hives Verified 03/17/24 18:09 aloe vera Allergy Rash/Hives Verified 03/17/24 18:09 amoxicillin [From Augmentin] Allergy Itching Verified 03/17/24 18:09 azithromycin Allergy Rash/Hives Verified 03/17/24 18:09 cephalexin Allergy Rash/Hives Verified 03/17/24 18:09 clavulanic acid Allergy Itching Verified 03/17/24 18:09 [From Augmentin] metronidazole [From Flagyl] Allergy Rash/Hives Verified 03/17/24 18:09 Penicillins Allergy Rash/Hives Verified 03/17/24 18:09 alprazolam [From Xanax] AdvReac MAKES Verified 03/17/24 18:09 PARANOID dicyclomine [From Bentyl] AdvReac constipatio Verified 03/17/24 18:09 n Review of Systems ROS Other: All systems not noted in ROS Statement are negative. <Erin Lawson - Last Filed: 03/17/24 18:39> ROS Other: All systems not noted in ROS Statement are negative. <Rosario Kelley - Last Filed: 03/17/24 22:58> ROS Statement: Those systems with pertinent positive or pertinent negative responses have been documented in the HPI. Past Medical History Past Medical History: Blood Disorder, GERD/Reflux Additional Past Medical History / Comment(s): Endometriosis, polycystic ovarian syndrome. IRON DEFICIENCY ANEMIA. Stomach Ulcer. Hx ovarian cyst. History of Any Multi-Drug Resistant Organisms: None Reported Past Surgical History: Ablation, Appendectomy, Section, Cholecystectomy, Hernia Repair, Hysterectomy, Tubal Ligation, Uterine Ablation Additional Past Surgical History / Comment(s): Laparoscopy X2, Section X3, right ovary and right tube removed, then total hysterectomy including left ovary and left fallopian tube, cyst removed from chest, ADHESION REMOVAL FROM PAST CSECTION, vaginal/pelvic biopsy. Scar tissure removal abdomen L upper lower Past Anesthesia/Blood Transfusion Reactions: No Reported Reaction Past Psychological History: Anxiety, Depression Smoking Status: Never smoker Past Alcohol Use History: Occasional Past Drug Use History: None Reported - Past Family History Mother Family Medical History: Deep Vein Thrombosis (DVT), Hyperlipidemia Additional Family Medical History / Comment(s): Depression and anxiety. DVT to arm after surgery. <Erin Lawson - Last Filed: 03/17/24 18:39> General Exam Limitations: no limitations <Erin Lawson - Last Filed: 03/17/24 18:39> Limitations: no limitations General appearance: alert, in no apparent distress Head exam: Present: atraumatic, normocephalic, normal inspection Respiratory exam: Present: normal lung sounds bilaterally. Absent: respiratory distress, wheezes, rales, rhonchi, stridor Cardiovascular Exam: Present: regular rate, normal rhythm, normal heart sounds. Absent: systolic murmur, diastolic murmur, rubs, gallop, clicks GI/Abdominal exam: Present: soft, tenderness (RLQ), normal bowel sounds. Absent: distended, guarding, rebound, rigid Back exam: Present: normal inspection, full ROM, other (Tenderness to palpation of the lower back) Neurological exam: Present: alert, oriented X3, CN II-XII intact Psychiatric exam: Present: normal affect, normal mood Skin exam: Present: warm, dry, intact, normal color. Absent: rash <Rosario Kelley - Last Filed: 03/17/24 22:58> - General Exam Comments Initial Comments: Visual Physical Exam Vital signs reviewed General: Well-appearing, nontoxic, no acute distress. Head: Normocephalic, atraumatic Eyes: PERRLA, EOMI ENT: Airway patent Chest: Nonlabored breathing Skin: No visual rash, normal skin tone Neuro: Alert and oriented 3 Musculoskeletal: No gross abnormalities (Erin Lawson) Course Vital Signs 03/17/24 03/17/24 18:06 22:13 Temperature 98.1 F 98.2 F Pulse Rate 89 75 Respiratory 18 18 Rate Blood Pressure 135/84 134/87 O2 Sat by Pulse 100 100 Oximetry Medical Decision Making <Erin Lawson - Last Filed: 03/17/24 18:39> - Lab Data Result diagrams: 03/17/24 20:01 03/17/24 20:01 - Radiology Data Radiology results: report reviewed, image reviewed <Rosario Kelley - Last Filed: 03/17/24 22:58> - Medical Decision Making I completed the quick note portion of this chart signed Erin Lawson PA-C (Erin Lawson) This is a 33-year-old female who presents to the emergency department for lower back pain and abdominal pain. Was pt. sent in by a medical professional or institution? @ -No Did you speak to anyone other than the patient for history? @ -No Did you review nursing and triage notes? @ -Yes, and I agree, it is accurate with regards to the patient's symptoms. Were old charts reviewed? @ -CT scan of the abdomen and pelvis from yesterday demonstrating no acute pr ocess. Differential Diagnosis? @ -Differential Back Pain: Strain, zoster, cauda equina syndrome, epidural abscess, vertebral osteomyelitis, discitis, fracture, subluxation, disc herniation, DJD, spinal stenosis, dissection, AAA, pancreatitis, peptic ulcer disease, pyelonephritis, kidney stone, this is not meant to be an all-inclusive list. EKG interpreted by me (3pts min.)? @ -Not obtained X-rays interpreted by me (1pt min.)? @ -X-ray of the lumbar spine and sacrum/coccyx obtained. My interpretation identifies no acute fractures. KUB x-ray obtained. My interpretation identifies no dilation of large or small bowel loops. CT interpreted by me (1pt min.)? @ -Not obtained U/S interpreted by me (1pt. min.)? @ -Not obtained What testing was considered but not performed? (CT, X-rays, U/S, labs)? Why? @ -None What meds were considered but not given? Why? @ -None Did you discuss the management of the patient with other professionals? @ -No Did you reconcile home meds? @ -No Was smoking cessation discussed for >3mins.? @ -No Was critical care preformed (if so, how long)? @ -No Were there social determinants of health that impacted care today? How? (Homelessness, low income, unemployed, alcoholism, drug addiction, transportation, low edu. Level, literacy, decrease access to med. care, prison, rehab)? @ -No Was there de-escalation of care discussed even if they declined? (Discuss DNR or withdrawal of care, Hospice)? @ -No What co-morbidities impacted this encounter? (DM, HTN, Smoking, COPD, CAD, Cancer, CVA, Hep., AIDS, mental health diagnosis, sleep apnea, morbid obesity)? @ -None Was patient admitted / discharged? @ -Discharged. Lab work unremarkable. Hemoglobin and LFTs stable when comp ared with prior. X-ray of the lumbar spine and sacrum/coccyx revealed no acute process. KUB x-ray also reveals no acute findings. Pain managed in the emergency department and patient was discharged home in stable condition. She will follow-up with her surgeon tomorrow as scheduled. Case discussed with ED attending Dr. Rangel Return precautions reviewed in depth, the patient is instructed to return to the emergency department with any new, worsening, or concerning symptoms. Patient verbalized understanding. Undiagnosed new problem with uncertain prognosis? @ -None Drug Therapy requiring intensive monitoring for toxicity (Heparin, Nitro, Insulin, Cardizem)? @ -None Were any procedures done? @ -None Diagnosis/symptom? @ -Abdominal pain, low back pain Acute, or Chronic, or Acute on Chronic? @ -Acute Uncomplicated (without systemic symptoms) or Complicated (systemic symptoms)? @ -Uncomplicated Side effects of treatment? @ -None Exacerbation, Progression, or Severe Exacerbation] @ -Not applicable Poses a threat to life or bodily function? @ -No (Rosario Kelley) - Lab Data Lab Results 03/17/24 03/17/24 03/17/24 Range/Units 20:01 20:01 20:01 WBC 4.2 (3.8-10.6) k/uL RBC 3.53 L (3.80-5.40) m/uL Hgb 10.9 L (11.4-16.0) gm/dL Hct 32.8 L (34.0-46.0) % MCV 93.1 (80.0-100.0) fL MCH 30.8 (25.0-35.0) pg MCHC 33.1 (31.0-37.0) g/dL RDW 14.0 (11.5-15.5) % Plt Count 198 (150-450) k/uL MPV 7.8 Neutrophils % 66 % Lymphocytes % 27 % Monocytes % 5 % Eosinophils % 0 % Basophils % 0 % Neutrophils # 2.8 (1.3-7.7) k/uL Lymphocytes # 1.2 (1.0-4.8) k/uL Monocytes # 0.2 (0-1.0) k/uL Eosinophils # 0.0 (0-0.7) k/uL Basophils # 0.0 (0-0.2) k/uL Sodium 138 (137-145) mmol/L Potassium 4.2 (3.5-5.1) mmol/L Chloride 108 H (98-107) mmol/L Carbon Dioxide 26 (22-30) mmol/L Anion Gap 4 mmol/L BUN 5 L (7-17) mg/dL Creatinine 0.58 (0.52-1.04) mg/dL Est GFR (CKD-EPI)AfAm >90 (>60 ml/min/1.73 sqM) Est GFR (CKD-EPI)NonAf >90 (>60 ml/min/1.73 sqM) Glucose 94 (74-99) mg/dL Plasma Lactic Acid Santhosh 1.0 (0.7-2.0) mmol/L Calcium 9.8 (8.4-10.2) mg/dL Total Bilirubin 1.0 (0.2-1.3) mg/dL AST 43 H (14-36) U/L ALT 37 H (4-34) U/L Alkaline Phosphatase 88 (38-126) U/L Total Protein 6.7 (6.3-8.2) g/dL Albumin 4.1 (3.5-5.0) g/dL Disposition <Erin aLwson - Last Filed: 03/17/24 18:39> Is patient prescribed a controlled substance at d/c from ED?: No Time of Disposition: 21:50 <Rosario Kelley - Last Filed: 03/17/24 22:58> Clinical Impression: Abdominal pain, Low back pain Disposition: HOME SELF-CARE Instructions (If sedation given, give patient instructions): Abdominal Pain (ED) Additional Instructions: Return to the emergency department with any new, worsening, or concerning symptoms. Follow up with your surgeon tomorrow as scheduled. Referrals: None,Stated [Primary Care Provider] - 1-2 days
[2024-03-17 20:31] LABS: Basophils % (A) 0 %; Eosinophils % (A) 0 %; HCT 32.8 % (34.0-46.0); HGB 10.9 gm/dL (11.4-16.0); Lymphocytes # (A) 1.2 k/uL (1.0-4.8); Lymphocytes % (A) 27 %; MCH 30.8 pg (25.0-35.0); MCHC 33.1 g/dL (31.0-37.0); MCV 93.1 fL (80.0-100.0); Mean Platelet Volume 7.8; Monocytes # (A) 0.2 k/uL (0-1.0); Monocytes % (A) 5 %; Neutrophils # (A) 2.8 k/uL (1.3-7.7); Neutrophils % (A) 66 %; Platelet Count 198 k/uL (150-450); RBC 3.53 m/uL (3.80-5.40); WBC 4.2 k/uL (3.8-10.6)
[2024-03-17] MEDS: ONDANSETRON 4 MG/2 ML VIAL IVP STA (20:34)
[2024-03-17] MEDS: CYCLOBENZAPRINE 10 MG TAB PO STA (20:34)
[2024-03-17] MEDS: KETOROLAC 15 MG/ML 1 ML VIAL IVP STA (20:34)
[2024-03-17] MEDS: HYDROmorphone 1 MG/ML 1 ML SYRINGE IVP STA ×2 (20:35→22:08)
[2024-03-17 20:46] LABS: ALT 37 U/L (4-34); African American GFR (CKD) >90 (>60 ml/min/1.73 sqM); Albumin 4.1 g/dL (3.5-5.0); Anion Gap 4 mmol/L; Blood Urea Nitrogen 5 mg/dL (7-17); Calcium 9.8 mg/dL (8.4-10.2); Carbon Dioxide 26 mmol/L (22-30); Chloride 108 mmol/L (98-107); Glucose 94 mg/dL (74-99); Non-African American GFR(CKD) >90 (>60 ml/min/1.73 sqM); Sodium 138 mmol/L (137-145); Total Protein 6.7 g/dL (6.3-8.2)
[2024-03-17 20:54] LABS: AST 43 U/L (14-36); Alkaline Phosphatase 88 U/L (38-126); Potassium 4.2 mmol/L (3.5-5.1)
--- NOTE | 2024-03-17 21:02 | XR ---
EXAMINATION TYPE: XR KUB DATE OF EXAM: 03/17/2024 COMPARISON: 02/08/2024 INDICATION: Abdomen pain, appendectomy 3 weeks prior TECHNIQUE: Single view abdomen right FINDINGS: Nonspecific bowel gas pattern with air within small bowel loops as well as colon. No suspicious air-f luid levels or differential air-fluid levels are present. No free air is evident. Psoas margins are normal. No organomegaly is present. Cystectomy clips in the right upper quadrant. IMPRESSION: 1. No specific abdomen. 2. No suspicious acute changes.
--- NOTE | 2024-03-17 21:03 | XR ---
EXAMINATION TYPE: XR lumbar spine 2 or 3V DATE OF EXAM: 03/17/2024 COMPARISON: None HISTORY: Appendectomy 3 weeks prior, pain TECHNIQUE: 3 view lumbar spine FINDINGS: There 5 lumbar-type vertebral bodies. Pedicles are intact. Disc heights are preserved. Vert ebral body heights are preserved. IMPRESSION: 1. Unremarkable three-view lumbar spine
--- NOTE | 2024-03-17 21:04 | XR ---
EXAMINATION TYPE: XR sacrum coccyx DATE OF EXAM: 03/17/2024 COMPARISON: None HISTORY: Pain right lower quadrant 3 weeks post appendectomy TECHNIQUE: Sacrum and coccyx examined in 3 views FINDINGS: Sacroiliac joints are normal. Sacrum appears intact. Coccygeal structures appear. Note is made of surgical suture in the right lower quadrant. No mass effect is evident. IMPRESSION: 1. Unremarkable sacrum and coccyx
[2024-03-17] MEDS: HYDROcodone/APAP 5-325MG 1 EACH TAB PO STA (22:09)
[2024-03-17] MEDS: CYCLOBENZAPRINE 10MG STARTER 3 TAB BTL PO STA (22:09)
[2024-03-17] MEDS: ACET/COD 300 MG/30 MG STARTER PACK 6 TAB BTL PO STA (22:09)
[2024-03-17 22:14] VITALS: BP 134/87; PULSE 75; TEMP 98.2
== END 2024-03-17 22:22 | disposition home or self-care (01) ==
LOC: EC 18:00
CPT/HCPCS: 36415; 72100; 72220; 74018; 80053; 83605; 85025; 96374; 96375; 96376; 99284

== ENCOUNTER 2024-03-25 21:19 | Emergency (ER) | payer OTHER ==
[2024-03-25 22:06] LABS: Basophils % (A) 0 %; Eosinophils % (A) 1 %; HCT 32.1 % (34.0-46.0); HGB 10.7 gm/dL (11.4-16.0); Lymphocytes # (A) 1.2 k/uL (1.0-4.8); Lymphocytes % (A) 33 %; MCH 30.7 pg (25.0-35.0); MCHC 33.2 g/dL (31.0-37.0); MCV 92.4 fL (80.0-100.0); Mean Platelet Volume 8.1; Monocytes # (A) 0.2 k/uL (0-1.0); Monocytes % (A) 7 %; Neutrophils # (A) 2.1 k/uL (1.3-7.7); Neutrophils % (A) 57 %; Platelet Count 178 k/uL (150-450); RBC 3.47 m/uL (3.80-5.40); WBC 3.6 k/uL (3.8-10.6)
[2024-03-25 22:09] LABS: Appearance,Urine Clear (Clear); Bilirubin,Urine Negative (Negative); Blood,Urine Negative (Negative); Color,Urine Colorless; Glucose,Urine (UA) Negative (Negative); Ketones,Urine Negative (Negative); Leukocyte Esterase,Urine Negative (Negative); Nitrite,Urine Negative (Negative); Protein,Urine Negative (Negative); Specific Gravity,Urine 1.012 (1.001-1.035); Urobilinogen,Urine <2.0 mg/dL (<2.0)
[2024-03-25 22:24] LABS: Amylase 47 U/L (30-110); Lipase 26 U/L (23-300)
--- NOTE | 2024-03-26 00:16 | ED ---
Nausea/Vomiting/Diarrhea HPI - General Chief complaint: Nausea/Vomiting/Diarrhea Stated complaint: vomiting,back pain Time Seen by Provider: 03/25/24 21:30 Source: patient, RN notes reviewed Mode of arrival: ambulatory Limitations: no limitations - History of Present Illness Initial comments: 33-year-old female presents emergency department chief complaint of right lower quadrant and right flank pain that has been present over the past few days. Patient states that she has had intermittent nausea and vomiting as well. Patient has frequent right lower quadrant abdominal pain and has been seen in the emergency department multiple times for similar complaint. She denies medic easier, dark or tarry stools, urinary symptoms, dysuria, fevers, chills. - Related Data Home Medications Medication Instructions Recorded Confirmed Omeprazole 40 mg PO HS 03/16/24 03/16/24 Ondansetron Odt [Zofran Odt] 4 mg PO Q6HR PRN 03/16/24 03/16/24 Allergies Allergy/AdvReac Type Severity Reaction Status Date / Time sulfamethoxazole Allergy Severe Anaphylaxis Verified 03/17/24 18:09 [From Bactrim] trimethoprim [From Bactrim] Allergy Severe Anaphylaxis Verified 03/17/24 18:09 adhesive tape Allergy Rash/Hives Verified 03/17/24 18:09 aloe vera Allergy Rash/Hives Verified 03/17/24 18:09 amoxicillin [From Augmentin] Allergy Itching Verified 03/17/24 18:09 azithromycin Allergy Rash/Hives Verified 03/17/24 18:09 cephalexin Allergy Rash/Hives Verified 03/17/24 18:09 clavulanic acid Allergy Itching Verified 03/17/24 18:09 [From Augmentin] metronidazole [From Flagyl] Allergy Rash/Hives Verified 03/17/24 18:09 Penicillins Allergy Rash/Hives Verified 03/17/24 18:09 alprazolam [From Xanax] AdvReac MAKES Verified 03/17/24 18:09 PARANOID dicyclomine [From Bentyl] AdvReac constipatio Verified 03/17/24 18:09 n Review of Systems ROS Statement: Those systems with pertinent positive or pertinent negative responses have been documented in the HPI. ROS Other: All systems not noted in ROS Statement are negative. Past Medical History Past Medical History: Blood Disorder, GERD/Reflux Additional Past Medical History / Comment(s): Endometriosis, polycystic ovarian syndrome. IRON DEFICIENCY ANEMIA. Stomach Ulcer. Hx ovarian cyst. History of Any Multi-Drug Resistant Organisms: None Reported Past Surgical History: Ablation, Appendectomy, Section, Cholecystectomy, Hernia Repair, Hysterectomy, Tubal Ligation, Uterine Ablation Additional Past Surgical History / Comment(s): Laparoscopy X2, Section X3, right ovary and right tube removed, then total hysterectomy including left ovary and left fallopian tube, cyst removed from chest, ADHESION REMOVAL FROM PAST CSECTION, vaginal/pelvic biopsy. Scar tissure removal abdomen L upper lower Past Anesthesia/Blood Transfusion Reactions: No Reported Reaction Past Psychological History: Anxiety, Depression Smoking Status: Never smoker Past Alcohol Use History: Occasional Past Drug Use History: None Reported - Past Family History Mother Family Medical History: Deep Vein Thrombosis (DVT), Hyperlipidemia Additional Family Medical History / Comment(s): Depression and anxiety. DVT to arm after surgery. General Exam Limitations: no limitations General appearance: alert, in no apparent distress Head exam: Present: atraumatic, normocephalic, normal inspection Eye exam: Present: normal appearance, PERRL, EOMI. Absent: scleral icterus, conjunctival injection, periorbital swelling ENT exam: Present: normal exam, mucous membranes moist Respiratory exam: Present: normal lung sounds bilaterally. Absent: respiratory distress, wheezes, rales, rhonchi, stridor Cardiovascular Exam: Present: regular rate, normal rhythm, normal heart sounds. Absent: systolic murmur, diastolic murmur, rubs, gallop, clicks GI/Abdominal exam: Present: soft, tenderness (Right mid abdomen), normal bowel sounds. Absent: distended, guarding, rebound, rigid Extremities exam: Present: normal inspection, full ROM, normal capillary refill. Absent: tenderness, pedal edema, joint swelling, calf tenderness Back exam: Present: normal inspection, CVA tenderness (R) Skin exam: Present: warm, dry, intact, normal color. Absent: rash Course Vital Signs 03/25/24 03/26/24 21:21 01:52 Temperature 98.3 F 97.7 F Pulse Rate 89 75 Respiratory 18 16 Rate Blood Pressure 147/97 105/68 O2 Sat by Pulse 98 99 Oximetry Medical Decision Making - Medical Decision Making Was pt. sent in by a medical professional or institution (, PA, SHEET METAL LAYOUT WORKER, urgent care, hospital, or jail...) When possible be specific @ -No Did you speak to anyone other than the patient for history (EMS, parent, family, police, friend...)? What history was obtained from this source @ -No Did you review nursing and triage notes (agree or disagree)? Why? @ -yes, i agree Were old charts reviewed (outside hosp., previous admission, EMS record, old EKG, old radiological studies, urgent care reports/EKG's, jail records)? Report findings @ --Reviewed patient's previous CT imaging of the abdomen pelvis reported no acute intra-abdominal process Differential Diagnosis (chest pain, altered mental status, abdominal pain women, abdominal pain men, vaginal bleeding, weakness, fever, dyspnea, syncope, hea dache, dizziness, GI bleed, back pain, seizure, CVA, palpatations, mental health, musculoskeletal)? @ -Differential Abdominal Pain Women: Appendicitis, Cholecystitis, diverticulosis, ischemic bowel, pancreatitis, hepatitis, UTI, gastroenteritis, AAA, incarcerated hernia, bowel obstruction, constipation, inflammatory bowel, hepatitis, peptic ulcer disease, splenic infarction, perforated viscus, vulvitis, ovarian torsion, PID, kidney stone, placenta abruption, this is not meant to be an all-inclusive list EKG interpreted by me (3pts min.). @ -None X-rays interpreted by me (1pt min.). @ -None done CT interpreted by me (1pt min.). @ -None done U/S interpreted by me (1pt. min.). @ -None done What testing was considered but not performed or refused? (CT, X-rays, U/S, labs)? Why? @ -CT imaging was considered but deferred at this time. Patient had recent CT imaging with no acute process, additionally patient's pain has improved after medication ministration patient is in agreement with deferring CT imaging at this time. What meds were considered but not given or refused? Why? @ -None Did you discuss the management of the patient with other professionals (professionals i.e. , PA, SHEET METAL LAYOUT WORKER, lab, RT, psych nurse, social sciences chair, seed analysis laboratory assistant, teacher, armed security officer, vocational case manager)? Give summary @ -No Was smoking cessation discussed for >3mins.? @ -No Was critical care preformed (if so, how long)? @ -No Were there social determinants of health that impacted care today? How? (Homelessness, low income, unemployed, alcoholism, drug addiction, transportation, low edu. Level, literacy, decrease access to med. care, residential, rehab)? @ -No Was there de-escalation of care discussed even if they declined (Discuss DNR or withdrawal of care, Hospice)? DNR status @ -No What co-morbidities impacted this encounter? (DM, HTN, Smoking, COPD, CAD, Cancer, CVA, ARF, Chemo, Hep., AIDS, mental health diagnosis, sleep apnea, morbid obesity)? @ -None Was patient admitted / discharged? Hospital course, mention meds given and route, prescriptions, significant lab abnormalities, going to OR and other pertinent info. @ -Discharge. 32-year-old female with right abdomen and flank pain. Patient is in no acute distress on examination and vitals within normal limits. CBC, pancreatic enzymes within normal limits, urinalysis no signs of infection. Patient is feeling better after fluid administration, analgesics, nausea medication and stable for discharge. Recommend the patient follows up with primary care provider this week for further evaluation. All questions answered at bedside and strict return parameters discussed with the patient she is verbalized understanding. Case discussed with Dr. Araujo Undiagnosed new problem with uncertain prognosis? @ -No Drug Therapy requiring intensive monitoring for toxicity (Heparin, Nitro, Insulin, Cardizem)? @ -No Were any procedures done? @ -No Diagnosis/symptom? @ -Abdominal pain Acute, or Chronic, or Acute on Chronic? @ -Acute Uncomplicated (without systemic symptoms) or Complicated (systemic symptoms)? @ -Uncomplicated Side effects of treatment? @ -No Exacerbation, Progression, or Severe Exacerbation? @ -No Poses a threat to life or bodily function? How? (Chest pain, USA, [place], pneumonia, PE, COPD, DKA, ARF, appy, cholecystitis, CVA, Diverticulitis, Homicidal, Suicidal, threat to staff... and all critical care pts) @ -No - Lab Data Result diagrams: 03/25/24 21:46 Lab Results 03/25/24 03/25/24 03/25/24 Range/Units 21:46 21:46 21:46 WBC 3.6 L (3.8-10.6) k/uL RBC 3.47 L (3.80-5.40) m/uL Hgb 10.7 L (11.4-16.0) gm/dL Hct 32.1 L (34.0-46.0) % MCV 92.4 (80.0-100.0) fL MCH 30.7 (25.0-35.0) pg MCHC 33.2 (31.0-37.0) g/dL RDW 14.0 (11.5-15.5) % Plt Count 178 (150-450) k/uL MPV 8.1 Neutrophils % 57 % Lymphocytes % 33 % Monocytes % 7 % Eosinophils % 1 % Basophils % 0 % Neutrophils # 2.1 (1.3-7.7) k/uL Lymphocytes # 1.2 (1.0-4.8) k/uL Monocytes # 0.2 (0-1.0) k/uL Eosinophils # 0.0 (0-0.7) k/uL Basophils # 0.0 (0-0.2) k/uL Amylase 47 (30-110) U/L Lipase 26 (23-300) U/L Urine Color Colorless Urine Appearance Clear (Clear) Urine pH 7.0 (5.0-8.0) Ur Specific [place] 1.012 (1.001-1.035) Urine Protein Negative (Negative) Urine Glucose (UA) Negative (Negative) Urine Ketones Negative (Negative) Urine Blood Negative (Negative) Urine Nitrite Negative (Negative) Urine Bilirubin Negative (Negative) Urine Urobilinogen <2.0 (<2.0) mg/dL Ur Leukocyte Esterase Negative (Negative) Disposition Clinical Impression: Abdominal pain, Flank pain Disposition: HOME SELF-CARE Condition: Good Instructions (If sedation given, give patient instructions): Abdominal Pain (ED) Additional Instructions: Return to the emergency department for any new or worsening symptoms. Increase oral rehydration. Recommend follow-up with your primary care provider next week for further evaluation. Is patient prescribed a controlled substance at d/c from ED?: No Referrals: None,Stated [Primary Care Provider] - 1-2 days Time of Disposition: 00:46
[2024-03-26] MEDS: ACET/COD 300 MG/30 MG STARTER PACK 6 TAB BTL PO STA (00:38)
[2024-03-26] MEDS: SODIUM CHLORIDE 0.9% 500 ML 500 ML IV STA (00:38)
[2024-03-26] MEDS: HYDROmorphone 1 MG/ML 1 ML SYRINGE IVP STA (00:40)
[2024-03-26] MEDS: METOCLOPRAMIDE 5 MG/ML 2 ML VIAL IVP STA (00:42)
[2024-03-26 01:53] VITALS: BP 105/68; PULSE 75; RESP 16; TEMP 97.7
== END 2024-03-26 01:52 | disposition home or self-care (01) ==
LOC: EC 21:19
DX: R10.31 Right lower quadrant pain (principal); Z88.0 Allergy status to penicillin; Z88.1 Allergy status to other antibiotic agents; Z88.2 Allergy status to sulfonamides; Z88.8 Allergy status to other drugs, medicaments and biological substances
CPT/HCPCS: 36415; 82150; 83690; 85025; 81003; 99284; 96374; 96375; 96361; J2765; J1170

== ENCOUNTER 2024-04-02 12:50 | Emergency (ER) | payer OTHER ==
[2024-04-02 12:58] VITALS: TEMP 98.3
--- NOTE | 2024-04-02 13:12 | ED ---
GI Bleed HPI - General Chief complaint: GI Bleed Stated complaint: rectal bleeding Time Seen by Provider: 04/02/24 13:11 Source: patient, RN notes reviewed Mode of arrival: ambulatory Limitations: no limitations - History of Present Illness Initial comments: 33-year-old female presenting to the ER with a chief complaint of bright red blood per stool. Patient has a history of IBS. She also reports recent appendectomy and hiatal hernia repair. Patient reports for the past 2 to 3 days she has been having diarrhea. She states today she noticed a small amount of bright red blood in her stool. She attempted to wait at home to see if it was hemorrhoids. Upon having another bowel movement this morning she noted an increase in the amount of bright red blood in her stool. No melena. She was reporting generalized abdominal pain. Admits to nausea but no vomiting today. She is taking [id number] ibuprofen and muscle relaxers for pain control. Denies any fevers or chills. Denies any urinary complaints. Patient was seen at [facility] yesterday for similar complaint. - Related Data Home Medications Medication Instructions Recorded Confirmed Omeprazole 40 mg PO HS 03/16/24 04/03/24 Ondansetron Odt [Zofran Odt] 4 mg PO Q6HR PRN 03/16/24 04/03/24 Orphenadrine Citrate [Orphenadrine 100 mg PO BID PRN 04/02/24 04/03/24 Citrate ER] Allergies Allergy/AdvReac Type Severity Reaction Status Date / Time sulfamethoxazole Allergy Severe Anaphylaxis Verified 04/08/24 22:51 [From Bactrim] trimethoprim [From Bactrim] Allergy Severe Anaphylaxis Verified 04/08/24 22:51 adhesive tape Allergy Rash/Hives Verified 04/08/24 22:51 aloe vera Allergy Rash/Hives Verified 04/08/24 22:51 amoxicillin [From Augmentin] Allergy Itching Verified 04/08/24 22:51 azithromycin Allergy Rash/Hives Verified 04/08/24 22:51 cephalexin Allergy Rash/Hives Verified 04/08/24 22:51 clavulanic acid Allergy Itching Verified 04/08/24 22:51 [From Augmentin] metronidazole [From Flagyl] Allergy Rash/Hives Verified 04/08/24 22:51 Penicillins Allergy Rash/Hives Verified 04/08/24 22:51 alprazolam [From Xanax] AdvReac MAKES Verified 04/08/24 22:51 PARANOID dicyclomine [From Bentyl] AdvReac constipatio Verified 04/08/24 22:51 n Review of Systems ROS Statement: Those systems with pertinent positive or pertinent negative responses have been documented in the HPI. ROS Other: All systems not noted in ROS Statement are negative. Past Medical History Past Medical History: Blood Disorder, GERD/Reflux Additional Past Medical History / Comment(s): Endometriosis, polycystic ovarian syndrome. IRON DEFICIENCY ANEMIA. Stomach Ulcer. Hx ovarian cyst. History of Any Multi-Drug Resistant Organisms: None Reported Past Surgical History: Ablation, Appendectomy, Section, Cholecystectomy, Hernia Repair, Hysterectomy, Tubal Ligation, Uterine Ablation Additional Past Surgical History / Comment(s): Laparoscopy X2, Section X3, right ovary and right tube removed, then total hysterectomy including left ovary and left fallopian tube, cyst removed from chest, ADHESION REMOVAL FROM PAST CSECTION, vaginal/pelvic biopsy. Scar tissure removal abdomen L upper lower Past Anesthesia/Blood Transfusion Reactions: No Reported Reaction Past Psychological History: Anxiety, Depression Smoking Status: Never smoker Past Alcohol Use History: Occasional Past Drug Use History: None Reported - Past Family History Mother Family Medical History: Deep Vein Thrombosis (DVT), Hyperlipidemia Additional Family Medical History / Comment(s): Depression and anxiety. DVT to arm after surgery. General Exam Limitations: no limitations General appearance: alert, in no apparent distress Respiratory exam: Present: normal lung sounds bilaterally. Absent: respiratory distress, wheezes, rales, rhonchi, stridor Cardiovascular Exam: Present: regular rate, normal rhythm, normal heart sounds. Absent: systolic murmur, diastolic murmur, rubs, gallop, clicks GI/Abdominal exam: Present: soft, tenderness (Generalized), normal bowel sounds Neurological exam: Present: alert, oriented X3, CN II-XII intact Skin exam: Present: warm, dry, intact, normal color. Absent: rash Course Vital Signs 04/02/24 04/02/24 12:56 16:58 Temperature 98.3 F Pulse Rate 90 68 Respiratory 16 18 Rate Blood Pressure 137/88 116/77 O2 Sat by Pulse 98 100 Oximetry - Reevaluation(s) Reevaluation #1: 04/02/24 14:07 Rectal exam performed and chaperoned by Lucy NELSON. Minimal gross blood on exam. No hemorrhoids no anal fissures. Medical Decision Making - Medical Decision Making Was pt. sent in by a medical professional or institution (ANALI Leroy, SPA ATTENDANT, urgent care, hospital, or snf...) When possible be specific @ -No Did you speak to anyone other than the patient for history (EMS, parent, family, police, friend...)? What history was obtained from this source @ -No Did you review nursing and triage notes (agree or disagree)? Why? @ -I reviewed and agree with nursing and triage notes Were old charts reviewed (outside hosp., previous admission, EMS record, old EKG, old radiological studies, urgent care reports/EKG's, snf records)? Report findings @ -No old charts were reviewed Differential Diagnosis (chest pain, altered mental status, abdominal pain women, abdominal pain men, vaginal bleeding, weakness, fever, dyspnea, syncope, headache, dizziness, GI bleed, back pain, seizure, CVA, palpatations, mental health, musculoskeletal)? @ -Differential GI Bleed:Esophageal varices, aortoenteric fistula, Britta- Maguire, gastritis, peptic ulcer disease, diverticulosis, inflammatory bowel disease, hemorrhoids, fissure, colitis, malignancy, Meckel's diverticulum, this is not meant to be an all-inclusive list. EKG interpreted by me (3pts min.). @ -None X-rays interpreted by me (1pt min.). @ -None done CT interpreted by me (1pt min.). @ -None done U/S interpreted by me (1pt. min.). @ -None done What testing was considered but not performed or refused? (CT, X-rays, U/S, labs)? Why? @ -Imaging considered but not performed as patient has had recent CT scans. L aboratory studies will be obtained prior to imaging. Patient is agreeable with this. What meds were considered but not given or refused? Why? @ -None Did you discuss the management of the patient with other professionals (professionals i.e. ANALI Leroy, SPA ATTENDANT, lab, RT, psych nurse, social media marketing specialist, crown assembly machine operator, teacher, intelligence support officer, mental health case manager)? Give summary @ -No Was smoking cessation discussed for >3mins.? @ -No Was critical care preformed (if so, how long)? @ -No Were there social determinants of health that impacted care today? How? (Homelessness, low income, unemployed, alcoholism, drug addiction, transportation, low edu. Level, literacy, decrease access to med. care, senior care, rehab)? @ -No Was there de-escalation of care discussed even if they declined (Discuss DNR or withdrawal of care, Hospice)? DNR status @ -No What co-morbidities impacted this encounter? (DM, HTN, Smoking, COPD, CAD, Cancer, CVA, ARF, Chemo, Hep., AIDS, mental health diagnosis, sleep apnea, morbid obesity)? @ -IBS, endometriosis Was patient admitted / discharged? Hospital course, mention meds given and route, prescriptions, significant lab abnormalities, going to OR and other pertinent info. @ -Discharge. 33-year-old female presented to the ER with a chief complaint of rectal bleeding. History and physical exam completed. Vitals within normal limits. Patient in no signs of acute distress and nontoxic-appearing. Tenderness to lower abdomen. Laboratory studies appear to be at patient's ba seline. Hemoglobin 10.5 (10.7 on 03/25/24). Urinalysis unremarkable. Stool occult positive. There was gross blood on exam. Symptomatic treatment in the ER. Upon reevaluation, patient resting comfortably in exam room in no signs of acute distress. Results discussed with patient, all questions answered. Patient stable for discharge with stable hemoglobin and vital signs. Advise close follow-up with PCP and GI. Strict return parameters discussed. Patient discharged stable condition. Patient verbal expressed understanding agree with care plan. Case discussed with ED attending, Dr. Araujo. Undiagnosed new problem with uncertain prognosis? @ -No Drug Therapy requiring intensive monitoring for toxicity (Heparin, Nitro, Insulin, Cardizem)? @ -No Were any procedures done? @ -No Diagnosis/symptom? @ -Diarrhea/IBD/rectal bleeding Acute, or Chronic, or Acute on Chronic? @ -Acute Uncomplicated (without systemic symptoms) or Complicated (systemic symptoms)? @ -Uncomplicated Side effects of treatment? @ -No Exacerbation, Progression, or Severe Exacerbation? @ -No Poses a threat to life or bodily function? How? (Chest pain, [place], [place], pneumonia, PE, COPD, DKA, ARF, appy, cholecystitis, CVA, Diverticulitis, Homicidal, Suicidal, threat to staff... and all critical care pts) @ -No - Lab Data Result diagrams: 04/02/24 13:29 04/02/24 13:29 Lab Results 04/02/24 04/02/24 04/02/24 Range/Units 13:29 13:29 13:29 WBC 3.6 L (3.8-10.6) k/uL RBC 3.45 L (3.80-5.40) m/uL Hgb 10.5 L (11.4-16.0) gm/dL Hct 32.1 L (34.0-46.0) % MCV 92.8 (80.0-100.0) fL MCH 30.3 (25.0-35.0) pg MCHC 32.7 (31.0-37.0) g/dL RDW 13.8 (11.5-15.5) % Plt Count 214 (150-450) k/uL MPV 8.3 Neutrophils % 64 % Lymphocytes % 28 % Monocytes % 5 % Eosinophils % 1 % Basophils % 0 % Neutrophils # 2.3 (1.3-7.7) k/uL Lymphocytes # 1.0 (1.0-4.8) k/uL Monocytes # 0.2 (0-1.0) k/uL Eosinophils # 0.0 (0-0.7) k/uL Basophils # 0.0 (0-0.2) k/uL Sodium 139 (137-145) mmol/L Potassium 4.4 (3.5-5.1) mmol/L Chloride 105 (98-107) mmol/L Carbon Dioxide 28 (22-30) mmol/L Anion Gap 6 mmol/L BUN 11 (7-17) mg/dL Creatinine 0.75 (0.52-1.04) mg/dL Est GFR (CKD-EPI)AfAm >90 (>60 ml/min/1.73 sqM) Est GFR (CKD-EPI)NonAf >90 (>60 ml/min/1.73 sqM) Glucose 96 (74-99) mg/dL Plasma Lactic Acid Santhosh 0.9 (0.7-2.0) mmol/L Calcium 10.0 (8.4-10.2) mg/dL Total Bilirubin 0.8 (0.2-1.3) mg/dL AST 48 H (14-36) U/L ALT 44 H (4-34) U/L Alkaline Phosphatase 120 (38-126) U/L Total Protein 6.5 (6.3-8.2) g/dL Albumin 4.0 (3.5-5.0) g/dL Amylase 43 (30-110) U/L Lipase 38 (23-300) U/L Urine Color Urine Appearance (Clear) Urine pH (5.0-8.0) Ur Specific [place] (1.001-1.035) Urine Protein (Negative) Urine Glucose (UA) (Negative) Urine Ketones (Negative) Urine Blood (Negative) Urine Nitrite (Negative) Urine Bilirubin (Negative) Urine Urobilinogen (<2.0) mg/dL Ur Leukocyte Esterase (Negative) Urine HCG, Qual (Not Detectd) Stool Occult Blood (Negative) 04/02/24 04/02/24 04/02/24 Range/Units 14:05 15:46 15:46 WBC (3.8-10.6) k/uL RBC (3.80-5.40) m/uL Hgb (11.4-16.0) gm/dL Hct (34.0-46.0) % MCV (80.0-100.0) fL MCH (25.0-35.0) pg MCHC (31.0-37.0) g/dL RDW (11.5-15.5) % Plt Count (150-450) k/uL MPV Neutrophils % % Lymphocytes % % Monocytes % % Eosinophils % % Basophils % % Neutrophils # (1.3-7.7) k/uL Lymphocytes # (1.0-4.8) k/uL Monocytes # (0-1.0) k/uL Eosinophils # (0-0.7) k/uL Basophils # (0-0.2) k/uL Sodium (137-145) mmol/L Potassium (3.5-5.1) mmol/L Chloride (98-107) mmol/L Carbon Dioxide (22-30) mmol/L Anion Gap mmol/L BUN (7-17) mg/dL Creatinine (0.52-1.04) mg/dL Est GFR (CKD-EPI)AfAm (>60 ml/min/1.73 sqM) Est GFR (CKD-EPI)NonAf (>60 ml/min/1.73 sqM) Glucose (74-99) mg/dL Plasma Lactic Acid Santhosh (0.7-2.0) mmol/L Calcium (8.4-10.2) mg/dL Total Bilirubin (0.2-1.3) mg/dL AST (14-36) U/L ALT (4-34) U/L Alkaline Phosphatase (38-126) U/L Total Protein (6.3-8.2) g/dL Albumin (3.5-5.0) g/dL Amylase (30-110) U/L Lipase (23-300) U/L Urine Color Colorless Urine Appearance Clear (Clear) Urine pH 7.0 (5.0-8.0) Ur Specific [place] 1.017 (1.001-1.035) Urine Protein Negative (Negative) Urine Glucose (UA) Negative (Negative) Urine Ketones Negative (Negative) Urine Blood Negative (Negative) Urine Nitrite Negative (Negative) Urine Bilirubin Negative (Negative) Urine Urobilinogen <2.0 (<2.0) mg/dL Ur Leukocyte Esterase Negative (Negative) Urine HCG, Qual Not Detected (Not Detectd) Stool Occult Blood Positive H (Negative) Disposition Clinical Impression: Inflammatory bowel disease, Diarrhea, Rectal bleeding Disposition: HOME SELF-CARE Condition: Stable Instructions (If sedation given, give patient instructions): Rectal Bleeding (ED) Additional Instructions: Follow-up with PCP and GI. Return to the ER for new or worsening concerns. Is patient prescribed a controlled substance at d/c from ED?: No Referrals: None,Stated [Primary Care Provider] - 1-2 days Lauryn Buckley MD [STAFF PHYSICIAN] - 1-2 days Forms: PH Area PCPs Time of Disposition: 16:39
[2024-04-02 13:33] LABS: Basophils % (A) 0 %; Eosinophils % (A) 1 %; HCT 32.1 % (34.0-46.0); HGB 10.5 gm/dL (11.4-16.0); Lymphocytes % (A) 28 %; MCH 30.3 pg (25.0-35.0); MCHC 32.7 g/dL (31.0-37.0); MCV 92.8 fL (80.0-100.0); Mean Platelet Volume 8.3; Monocytes # (A) 0.2 k/uL (0-1.0); Monocytes % (A) 5 %; Neutrophils # (A) 2.3 k/uL (1.3-7.7); Neutrophils % (A) 64 %; Platelet Count 214 k/uL (150-450); RBC 3.45 m/uL (3.80-5.40); RDW 13.8 % (11.5-15.5); WBC 3.6 k/uL (3.8-10.6)
[2024-04-02] MEDS: SODIUM CHLORIDE 0.9% 1,000 ML IV STA (13:53)
[2024-04-02] MEDS: ACETAMINOPHEN TAB 325 MG TAB PO STA (13:53)
[2024-04-02 14:03] LABS: ALT 44 U/L (4-34); AST 48 U/L (14-36); African American GFR (CKD) >90 (>60 ml/min/1.73 sqM); Alkaline Phosphatase 120 U/L (38-126); Amylase 43 U/L (30-110); Anion Gap 6 mmol/L; Blood Urea Nitrogen 11 mg/dL (7-17); Carbon Dioxide 28 mmol/L (22-30); Chloride 105 mmol/L (98-107); Glucose 96 mg/dL (74-99); Lipase 38 U/L (23-300); Non-African American GFR(CKD) >90 (>60 ml/min/1.73 sqM); Potassium 4.4 mmol/L (3.5-5.1); Sodium 139 mmol/L (137-145); Total Bilirubin 0.8 mg/dL (0.2-1.3); Total Protein 6.5 g/dL (6.3-8.2)
[2024-04-02] MEDS: ONDANSETRON 4 MG/2 ML VIAL IVP STA (14:12)
[2024-04-02] MEDS: HYDROmorphone 1 MG/ML 1 ML SYRINGE IVP STA ×2 (14:14→16:22)
[2024-04-02 16:16] LABS: Appearance,Urine Clear (Clear); Bilirubin,Urine Negative (Negative); Blood,Urine Negative (Negative); Color,Urine Colorless; Glucose,Urine (UA) Negative (Negative); Ketones,Urine Negative (Negative); Leukocyte Esterase,Urine Negative (Negative); Nitrite,Urine Negative (Negative); Protein,Urine Negative (Negative); Specific Gravity,Urine 1.017 (1.001-1.035); Urobilinogen,Urine <2.0 mg/dL (<2.0)
[2024-04-02 17:00] VITALS: BP 116/77; PULSE 68; RESP 18
== END 2024-04-02 16:59 | disposition home or self-care (01) ==
LOC: EC 12:50
CPT/HCPCS: 36415; 80053; 81003; 81025; 82150; 82272; 83605; 83690; 85025; 96361; 96374; 96375; 96376; 99285

== ENCOUNTER 2024-04-02 22:52 | Emergency (ER) | payer OTHER ==
[2024-04-02 23:10] VITALS: RESP 18; TEMP 98.4
--- NOTE | 2024-04-02 23:12 | ED ---
General Adult HPI - General Source: patient Limitations: no limitations <Eben Gallo - Last Filed: 04/02/24 23:11> - General Source: patient, RN notes reviewed, old records reviewed <Irvin Maciel - Last Filed: 04/03/24 10:27> - General Chief complaint: Nausea/Vomiting/Diarrhea Stated complaint: Rectal Bleeding + Abd Pain (Was in earlier) Time Seen by Provider: 04/02/24 23:12 - History of Present Illness Initial comments: 33-year-old female presenting with chief complaint of diarrhea and rectal bleeding. This started earlier today. He was seen here earlier today and discharged. She reports that the rectal bleeding as well as lower abdominal pain has worsened. (Eben Gallo) Patient originally seen as a quick note. I evaluated the patient when she was placed in room. Presented as a repeat evaluation last night. Labs were done in the waiting room. Presents due to chronic abdominal pain. Also believes she had some rectal bleeding last night. Does have a history of hemorrhoids. States it is continued throughout the day yesterday which is why she represented again last night. States it seemed to have slowed down when she arrived. Currently has mild abdominal pain. Labs were obtained at approximately 1 AM which revealed a hemoglobin within the patient's normal range which seems to be over the last few months between 9 and 11. (Irvin Maciel) - Related Data Home Medications Medication Instructions Recorded Confirmed Omeprazole 40 mg PO HS 03/16/24 04/03/24 Ondansetron Odt [Zofran Odt] 4 mg PO Q6HR PRN 03/16/24 04/03/24 Orphenadrine Citrate [Orphenadrine 100 mg PO BID PRN 04/02/24 04/03/24 Citrate ER] Allergies Allergy/AdvReac Type Severity Reaction Status Date / Time sulfamethoxazole Allergy Severe Anaphylaxis Verified 04/03/24 08:24 [From Bactrim] trimethoprim [From Bactrim] Allergy Severe Anaphylaxis Verified 04/03/24 08:24 adhesive tape Allergy Rash/Hives Verified 04/03/24 08:24 aloe vera Allergy Rash/Hives Verified 04/03/24 08:24 amoxicillin [From Augmentin] Allergy Itching Verified 04/03/24 08:24 azithromycin Allergy Rash/Hives Verified 04/03/24 08:24 cephalexin Allergy Rash/Hives Verified 04/03/24 08:24 clavulanic acid Allergy Itching Verified 04/03/24 08:24 [From Augmentin] metronidazole [From Flagyl] Allergy Rash/Hives Verified 04/03/24 08:24 Penicillins Allergy Rash/Hives Verified 04/03/24 08:24 alprazolam [From Xanax] AdvReac MAKES Verified 04/03/24 08:24 PARANOID dicyclomine [From Bentyl] AdvReac constipatio Verified 04/03/24 08:24 n Review of Systems ROS Other: All systems not noted in ROS Statement are negative. <Eben Gallo - Last Filed: 04/02/24 23:11> ROS Other: All systems not noted in ROS Statement are negative. <Irvin Maciel - Last Filed: 04/03/24 10:27> ROS Statement: Those systems with pertinent positive or pertinent negative responses have been documented in the HPI. Review of Systems: CONST: Denies fever EYES: Denies blurry vision ENT: Denies nasal congestion C/V: Denies Chest pain RESP: Denies shortness of breath GI: Endorses chronic abdominal pain : Denies dysuria SKIN: Denies rash. MSK: Denies joint pain. NEURO: Denies headache (Irvin Maciel) Past Medical History Past Medical History: Blood Disorder, GERD/Reflux Additional Past Medical History / Comment(s): Endometriosis, polycystic ovarian syndrome. IRON DEFICIENCY ANEMIA. Stomach Ulcer. Hx ovarian cyst. History of Any Multi-Drug Resistant Organisms: None Reported Past Surgical History: Ablation, Appendectomy, Section, Cholecystectomy, Hernia Repair, Hysterectomy, Tubal Ligation, Uterine Ablation Additional Past Surgical History / Comment(s): Laparoscopy X2, Section X3, right ovary and right tube removed, then total hysterectomy including left ovary and left fallopian tube, cyst removed from chest, ADHESION REMOVAL FROM PAST CSECTION, vaginal/pelvic biopsy. Scar tissure removal abdomen L upper lower Past Anesthesia/Blood Transfusion Reactions: No Reported Reaction Past Psychological History: Anxiety, Depression Smoking Status: Never smoker Past Alcohol Use History: Occasional Past Drug Use History: None Reported - Past Family History Mother Family Medical History: Deep Vein Thrombosis (DVT), Hyperlipidemia Additional Family Medical History / Comment(s): Depression and anxiety. DVT to a rm after surgery. <Eben Gallo - Last Filed: 04/02/24 23:11> General Exam Limitations: no limitations <Eben Gallo - Last Filed: 04/02/24 23:11> <Irvin Maciel - Last Filed: 04/03/24 10:27> - General Exam Comments Initial Comments: Visual Physical Exam Vital signs reviewed General: Well-appearing, nontoxic, no acute distress. Head: Normocephalic, atraumatic Eyes: PERRLA, EOMI ENT: Airway patent Chest: Nonlabored breathing Skin: No visual rash, normal skin tone Neuro: Alert and oriented 3 Musculoskeletal: No gross abnormalities (Eben Gallo) General: Appears in no acute distress. HEAD: Normal with no signs of head trauma. EYES: PERRLA, EOMI, conjunctiva normal, no discharge. ENT: Hearing grossly intact, normal oropharynx. RESPIRATORY: Clear breath sounds bilaterally. No wheezes, rales, or rhonchi. C/V: Regular rate and rhythm. S1 and S2 auscultated, no edema, peripheral pulses 2+ and intact throughout ABD: Abdomen is soft, nondistended. No obvious focal tenderness. Patient states it is tender but cannot elicit the tenderness. No guarding or rebound tenderness. No peritoneal signs. Rectal exam performed by myself in the presence of a female staff member. No gross blood. Light brown stool. External hemorrhoids present without any obvious complications. EXT: Normal range of motion, no obvious deformity SKIN: No rashes or lesions observed on exposed skin. NEURO: Alert and oriented x 4. (Irvin Maciel) Course Vital Signs 04/02/24 04/03/24 04/03/24 23:07 08:42 09:55 Temperature 98.4 F Pulse Rate 101 H 90 75 Respiratory 18 18 18 Rate Blood Pressure 117/69 126/91 113/76 O2 Sat by Pulse 100 100 100 Oximetry Medical Decision Making <Eben Gallo - Last Filed: 04/02/24 23:11> - Lab Data Result diagrams: 04/03/24 08:43 04/03/24 01:42 <Irvin Maciel - Last Filed: 04/03/24 10:27> - Medical Decision Making I performed the quick note portion of this visit, electronically signed Eben Gallo PA-C (Eben Gallo) Was pt. sent in by a medical professional or institution (, [facility], [facility] [employer] [facility], urgent care, hospital, or custodial...) When possible be specific @ -No Did you speak to anyone other than the patient for history (EMS, parent, family, police, friend...)? What history was obtained from this source @ -No Did you review nursing and triage notes (agree or disagree)? Why? @ -I reviewed and agree with nursing and triage notes Were old charts reviewed (outside hosp., previous admission, EMS record, old EKG, old radiological studies, urgent care reports/EKG's, custodial records)? Report findings @ -Old charts reviewed including visit from yesterday as well as recent hemoglobins in our system dating back to January of this year. Patient typically ranges for hemoglobin between 9.4 and 11. Hemoglobin earlier yesterday was 10.5, followed by 9.9 when she first arrived last night after she received fluid bolus as well as multiple IV draws. Differential Diagnosis (chest pain, altered mental status, abdominal pain women, abdominal pain men, vaginal bleeding, weakness, fever, dyspnea, syncope, headache, dizziness, GI bleed, back pain, seizure, CVA, palpatations, mental health, musculoskeletal)? @ -Differential Abdominal Pain Women: Appendicitis, Cholecystitis, diverticulosis, ischemic bowel, pancreatitis, hepa titis, UTI, gastroenteritis, AAA, incarcerated hernia, bowel obstruction, constipation, inflammatory bowel, hepatitis, peptic ulcer disease, splenic infarction, perforated viscus, vulvitis, ovarian torsion, PID, kidney stone, placenta abruption, this is not meant to be an all-inclusive list EKG interpreted by me (3pts min.). @ -None done X-rays interpreted by me (1pt min.). @ -None done CT interpreted by me (1pt min.). @ -None done U/S interpreted by me (1pt. min.). @ -None done What testing was considered but not performed or refused? (CT, X-rays, U/S, labs)? Why? @ -None What meds were considered but not given or refused? Why? @ -None Did you discuss the management of the patient with other professionals (professionals i.e. , [facility], [facility] [employer], lab, RT, psych nurse, social media editor, cranberry bog supervisor, teacher, financial administration officer, caseworker protective services)? Give summary @ -No Was smoking cessation discussed for >3mins.? @ -No Was critical care preformed (if so, how long)? @ -No Were there social determinants of health that impacted care today? How? (Homelessness, low income, unemployed, alcoholism, drug addiction, transportation, low edu. Level, literacy, decrease access to med. care, alf, rehab)? @ -No Was there de-escalation of care discussed even if they declined (Discuss DNR or withdrawal of care, Hospice)? DNR status @ -No What co-morbidities impacted this encounter? (DM, HTN, Smoking, COPD, CAD, Cancer, CVA, ARF, Chemo, Hep., AIDS, mental health diagnosis, sleep apnea, morbid obesity)? @ -Chronic abdominal pain, hemorrhoids Was patient admitted / discharged? Hospital course, mention meds given and route, prescriptions, significant lab abnormalities, going to OR and other pertinent info. @ -Patient presents for chronic abdominal pain as well as concern for possible rectal bleeding. Was seen yesterday with similar complaints. Hemoglobin today appears stable. Has been over 8 hours since this was drawn and we will repeat a CBC here. Vitals are within acceptable limits. She will be given analgesia medication and antiemetics. She was in agreement this plan. We did discuss obtaining CT imaging however patient has received numerous in the past and I did recommend that we hold off on this until we get repeat labs. She was in agreement this plan. Will avoid radiation hospital. If hemoglobin is stable then no need for it at this time as symptoms seems chronic. She is not on blood thinners. Not high risk. Rectal exam was unremarkable. Vitals within acceptable limits. Patient was in agreement this plan. Repeat CBC showed hemoglobin at 10.2 which is within her normal range. I discussed the results with the patient. I believe is safer to be discharged home with close follow-up with her surgeon Dr. Bahena. She was in agreement this plan. Strict return precautions discussed. No active bleed at the moment. Vitals remained within acceptable limits. I instructed the patient to follow up with their PCP in the next 1-3 days. I explained that the patient should return to the emergency department if they experience any worsening symptoms. Strict return precautions were discussed with the patient. The patient expressed understanding of these instructions. I answered all questions that the patient had. The patient was discharged home in good condition with their prescriptions and follow up information. Undiagnosed new problem with uncertain prognosis? @ -No Drug Therapy requiring intensive monitoring for toxicity (Heparin, Nitro, Insulin, Cardizem)? @ -No Were any procedures done? @ -No Diagnosis/symptom? @ -Chronic abdominal pain, rectal bleed Acute, or Chronic, or Acute on Chronic? @ -Acute on chronic Uncomplicated (without systemic symptoms) or Complicated (systemic symptoms)? @ -Uncomplicated Side effects of treatment? @ -No Exacerbation, Progression, or Severe Exacerbation? @ -No Poses a threat to life or bodily function? How? (Chest pain, [place], [place], pneumonia, PE, COPD, DKA, ARF, appy, cholecystitis, CVA, Diverticulitis, Homicidal, Suicidal, threat to staff... and all critical care pts) @ -Unlikely (Irvin Maciel) - Lab Data Lab Results 04/03/24 04/03/24 04/03/24 Range/Units 01:42 01:42 01:42 WBC 4.7 (3.8-10.6) k/uL RBC 3.26 L (3.80-5.40) m/uL Hgb 9.9 L (11.4-16.0) gm/dL Hct 30.5 L (34.0-46.0) % MCV 93.4 (80.0-100.0) fL MCH 30.4 (25.0-35.0) pg MCHC 32.6 (31.0-37.0) g/dL RDW 13.8 (11.5-15.5) % Plt Count 214 (150-450) k/uL MPV 7.8 Neutrophils % 58 % Lymphocytes % 33 % Monocytes % 6 % Eosinophils % 1 % Basophils % 0 % Neutrophils # 2.7 (1.3-7.7) k/uL Lymphocytes # 1.5 (1.0-4.8) k/uL Monocytes # 0.3 (0-1.0) k/uL Eosinophils # 0.1 (0-0.7) k/uL Basophils # 0.0 (0-0.2) k/uL Hypochromasia Slight APTT 23.4 (22.0-30.0) sec Sodium 141 (137-145) mmol/L Potassium 3.8 (3.5-5.1) mmol/L Chloride 107 (98-107) mmol/L Carbon Dioxide 27 (22-30) mmol/L Anion Gap 7 mmol/L BUN 14 (7-17) mg/dL Creatinine 0.80 (0.52-1.04) mg/dL Est GFR (CKD-EPI)AfAm >90 (>60 ml/min/1.73 sqM) Est GFR (CKD-EPI)NonAf >90 (>60 ml/min/1.73 sqM) Glucose 98 (74-99) mg/dL Plasma Lactic Acid Santhosh (0.7-2.0) mmol/L Calcium 9.8 (8.4-10.2) mg/dL Total Bilirubin 0.6 (0.2-1.3) mg/dL AST 39 H (14-36) U/L ALT 40 H (4-34) U/L Alkaline Phosphatase 111 (38-126) U/L Total Protein 6.6 (6.3-8.2) g/dL Albumin 4.1 (3.5-5.0) g/dL 04/03/24 04/03/24 Range/Units 01:42 08:43 WBC 4.1 (3.8-10.6) k/uL RBC 3.36 L (3.80-5.40) m/uL Hgb 10.2 L (11.4-16.0) gm/dL Hct 31.3 L (34.0-46.0) % MCV 93.3 (80.0-100.0) fL MCH 30.5 (25.0-35.0) pg MCHC 32.7 (31.0-37.0) g/dL RDW 13.7 (11.5-15.5) % Plt Count 216 (150-450) k/uL MPV 7.9 Neutrophils % 58 % Lymphocytes % 32 % Monocytes % 5 % Eosinophils % 1 % Basophils % 0 % Neutrophils # 2.4 (1.3-7.7) k/uL Lymphocytes # 1.3 (1.0-4.8) k/uL Monocytes # 0.2 (0-1.0) k/uL Eosinophils # 0.0 (0-0.7) k/uL Basophils # 0.0 (0-0.2) k/uL Hypochromasia APTT (22.0-30.0) sec Sodium (137-145) mmol/L Potassium (3.5-5.1) mmol/L Chloride (98-107) mmol/L Carbon Dioxide (22-30) mmol/L Anion Gap mmol/L BUN (7-17) mg/dL Creatinine (0.52-1.04) mg/dL Est GFR (CKD-EPI)AfAm (>60 ml/min/1.73 sqM) Est GFR (CKD-EPI)NonAf (>60 ml/min/1.73 sqM) Glucose (74-99) mg/dL Plasma Lactic Acid Santhosh 0.7 (0.7-2.0) mmol/L Calcium (8.4-10.2) mg/dL Total Bilirubin (0.2-1.3) mg/dL AST (14-36) U/L ALT (4-34) U/L Alkaline Phosphatase (38-126) U/L Total Protein (6.3-8.2) g/dL Albumin (3.5-5.0) g/dL Disposition <Eben Gallo - Last Filed: 04/02/24 23:11> Is patient prescribed a controlled substance at d/c from ED?: No Time of Disposition: 09:40 <Irvin Maciel - Last Filed: 04/03/24 10:27> Clinical Impression: Chronic abdominal pain, Rectal bleeding Disposition: HOME SELF-CARE Condition: Good Instructions (If sedation given, give patient instructions): Rectal Bleeding ( ED), Abdominal Pain (ED) Referrals: None,Stated [Primary Care Provider] - 1-2 days Ryan Bahena MD [STAFF PHYSICIAN] - 1-2 days
[2024-04-03 02:09] LABS: Basophils % (A) 0 %; Eosinophils # (A) 0.1 k/uL (0-0.7); Eosinophils % (A) 1 %; HCT 30.5 % (34.0-46.0); HGB 9.9 gm/dL (11.4-16.0); Hypochromasia Slight; Lymphocytes # (A) 1.5 k/uL (1.0-4.8); Lymphocytes % (A) 33 %; MCH 30.4 pg (25.0-35.0); MCHC 32.6 g/dL (31.0-37.0); MCV 93.4 fL (80.0-100.0); Mean Platelet Volume 7.8; Monocytes # (A) 0.3 k/uL (0-1.0); Monocytes % (A) 6 %; Neutrophils # (A) 2.7 k/uL (1.3-7.7); Neutrophils % (A) 58 %; Platelet Count 214 k/uL (150-450); RBC 3.26 m/uL (3.80-5.40); RDW 13.8 % (11.5-15.5); WBC 4.7 k/uL (3.8-10.6)
[2024-04-03 02:11] LABS: ALT 40 U/L (4-34); AST 39 U/L (14-36); African American GFR (CKD) >90 (>60 ml/min/1.73 sqM); Albumin 4.1 g/dL (3.5-5.0); Alkaline Phosphatase 111 U/L (38-126); Anion Gap 7 mmol/L; Blood Urea Nitrogen 14 mg/dL (7-17); Calcium 9.8 mg/dL (8.4-10.2); Carbon Dioxide 27 mmol/L (22-30); Chloride 107 mmol/L (98-107); Glucose 98 mg/dL (74-99); Non-African American GFR(CKD) >90 (>60 ml/min/1.73 sqM); Potassium 3.8 mmol/L (3.5-5.1); Sodium 141 mmol/L (137-145); Total Bilirubin 0.6 mg/dL (0.2-1.3); Total Protein 6.6 g/dL (6.3-8.2)
[2024-04-03] MEDS: METOCLOPRAMIDE 5 MG/ML 2 ML VIAL IVP STA (08:37)
[2024-04-03] MEDS: MORPHINE SULFATE 4 MG/ML SYRINGE IVP STA (08:39)
[2024-04-03 08:57] LABS: Basophils % (A) 0 %; Eosinophils % (A) 1 %; HCT 31.3 % (34.0-46.0); HGB 10.2 gm/dL (11.4-16.0); Lymphocytes # (A) 1.3 k/uL (1.0-4.8); Lymphocytes % (A) 32 %; MCH 30.5 pg (25.0-35.0); MCHC 32.7 g/dL (31.0-37.0); MCV 93.3 fL (80.0-100.0); Mean Platelet Volume 7.9; Monocytes # (A) 0.2 k/uL (0-1.0); Monocytes % (A) 5 %; Neutrophils # (A) 2.4 k/uL (1.3-7.7); Neutrophils % (A) 58 %; Platelet Count 216 k/uL (150-450); RBC 3.36 m/uL (3.80-5.40); RDW 13.7 % (11.5-15.5); WBC 4.1 k/uL (3.8-10.6)
[2024-04-03] MEDS: diphenhydrAMINE 50 MG/ML 1 ML VIAL IVP STA (09:21)
[2024-04-03 09:55] VITALS: BP 113/76; PULSE 75
== END 2024-04-03 09:56 | disposition home or self-care (01) ==
LOC: EC 22:52
CPT/HCPCS: 36415; 80053; 83605; 85025; 85730; 96374; 99283

== ENCOUNTER 2024-04-08 22:45 | Emergency (ER) | payer OTHER ==
[2024-04-08 22:51] VITALS: TEMP 98.2
--- NOTE | 2024-04-08 23:48 | ED ---
Abdominal Pain HPI - General Chief Complaint: Abdominal Pain Stated Complaint: Abdominal Pain Time Seen by Provider: 04/08/24 23:47 Source: patient, RN notes reviewed, old records reviewed Mode of arrival: ambulatory Limitations: no limitations - History of Present Illness Initial Comments: 33-year-old male presented to ER with a chief complaint of lower abdominal pain. Patient is a history of IBS and endometriosis. Patient also has past medical history significant of kidney stones. Patient reports for the past 2 days she has been having diarrhea and lower abdominal pain. She states the pain radiates from left lower quadrant up to umbilical region. She also reports while urinating today she felt "something come out". She believes this was a kidney stone. She denies any hematuria. Patient has taken [id number] muscle relaxers and ibuprofen without relief. Denies any fevers or chills. She does report to nausea. No vomiting. No other complaints at this time. - Related Data Home Medications Medication Instructions Recorded Confirmed Omeprazole 40 mg PO HS 03/16/24 04/03/24 Ondansetron Odt [Zofran Odt] 4 mg PO Q6HR PRN 03/16/24 04/03/24 Orphenadrine Citrate [Orphenadrine 100 mg PO BID PRN 04/02/24 04/03/24 Citrate ER] Allergies Allergy/AdvReac Type Severity Reaction Status Date / Time sulfamethoxazole Allergy Severe Anaphylaxis Verified 04/08/24 22:51 [From Bactrim] trimethoprim [From Bactrim] Allergy Severe Anaphylaxis Verified 04/08/24 22:51 adhesive tape Allergy Rash/Hives Verified 04/08/24 22:51 aloe vera Allergy Rash/Hives Verified 04/08/24 22:51 amoxicillin [From Augmentin] Allergy Itching Verified 04/08/24 22:51 azithromycin Allergy Rash/Hives Verified 04/08/24 22:51 cephalexin Allergy Rash/Hives Verified 04/08/24 22:51 clavulanic acid Allergy Itching Verified 04/08/24 22:51 [From Augmentin] metronidazole [From Flagyl] Allergy Rash/Hives Verified 04/08/24 22:51 Penicillins Allergy Rash/Hives Verified 04/08/24 22:51 alprazolam [From Xanax] AdvReac MAKES Verified 04/08/24 22:51 PARANOID dicyclomine [From Bentyl] AdvReac constipatio Verified 04/08/24 22:51 n Review of Systems ROS Statement: Those systems with pertinent positive or pertinent negative responses have been documented in the HPI. ROS Other: All systems not noted in ROS Statement are negative. Past Medical History Past Medical History: Blood Disorder, GERD/Reflux Additional Past Medical History / Comment(s): Endometriosis, polycystic ovarian syndrome. IRON DEFICIENCY ANEMIA. Stomach Ulcer. Hx ovarian cyst. History of Any Multi-Drug Resistant Organisms: None Reported Past Surgical History: Ablation, Appendectomy, Section, Cholecystectomy, Hernia Repair, Hysterectomy, Tubal Ligation, Uterine Ablation Additional Past Surgical History / Comment(s): Laparoscopy X2, Section X3, right ovary and right tube removed, then total hysterectomy including left ovary and left fallopian tube, cyst removed from chest, ADHESION REMOVAL FROM PAST CSECTION, vaginal/pelvic biopsy. Scar tissure removal abdomen L upper lower Past Anesthesia/Blood Transfusion Reactions: No Reported Reaction Past Psychological History: Anxiety, Depression Smoking Status: Never smoker Past Alcohol Use History: Occasional Past Drug Use History: None Reported - Past Family History Mother Family Medical History: Deep Vein Thrombosis (DVT), Hyperlipidemia Additional Family Medical History / Comment(s): Depression and anxiety. DVT to arm after surgery. General Exam Limitations: no limitations General appearance: alert, in no apparent distress Respiratory exam: Present: normal lung sounds bilaterally. Absent: respiratory distress, wheezes, rales, rhonchi, stridor Cardiovascular Exam: Present: regular rate, normal rhythm, normal heart sounds. Absent: systolic murmur, diastolic murmur, rubs, gallop, clicks GI/Abdominal exam: Present: soft, tenderness (Left lower quadrant), normal bowel sounds Extremities exam: Present: normal inspection, full ROM, normal capillary refill. Absent: tenderness, pedal edema, joint swelling, calf tenderness Neurological exam: Present: alert, oriented X3, CN II-XII intact Skin exam: Present: warm, dry, intact, normal color. Absent: rash Course Vital Signs 04/08/24 04/09/24 04/09/24 22:49 00:00 01:00 Temperature 98.2 F Pulse Rate 109 H 91 87 Respiratory 24 18 18 Rate Blood Pressure 122/85 117/83 115/79 O2 Sat by Pulse 100 95 97 Oximetry Medical Decision Making - Medical Decision Making Was pt. sent in by a medical professional or institution ([facility] Leroy, CAR SALES CONSULTANT, urgent care, hospital, or assisted...) When possible be specific @ -No Did you speak to anyone other than the patient for history (EMS, parent, family, police, friend...)? What history was obtained from this source @ -No Did you review nursing and triage notes (agree or disagree)? Why? @ -I reviewed and agree with nursing and triage notes Were old charts reviewed (outside hosp., previous admission, EMS record, old EKG, old radiological studies, urgent care reports/EKG's, assisted records)? Report findings @ -No old charts were reviewed Differential Diagnosis (chest pain, altered mental status, abdominal pain women, abdominal pain men, vaginal bleeding, weakness, fever, dyspnea, syncope, headache, dizziness, GI bleed, back pain, seizure, CVA, palpatations, mental health, musculoskeletal)? @ -Differential Abdominal Pain Women: Appendicitis, Cholecystitis, diverticulosis, ischemic bowel, pancreatitis, hepatitis, UTI, gastroenteritis, AAA, incarcerated hernia, bowel obstruction, constipation, inflammatory bowel, hepatitis, peptic ulcer disease, splenic infarction, perforated viscus, vulvitis, ovarian torsion, PID, kidney stone, placenta abruption, this is not meant to be an all-inclusive list EKG interpreted by me (3pts min.). @ -[None done X-rays interpreted by me (1pt min.). @ -None done CT interpreted by me (1pt min.). @ -None done U/S interpreted by me (1pt. min.). @ -None done What testing was considered but not performed or refused? (CT, X-rays, U/S, labs)? Why? @ -Imaging considered but not performed. Patient has had multiple CT scans recently. Patient is in agreements with obtaining laboratory studies prior to imaging. What meds were considered but not given or refused? Why? @ -None Did you discuss the management of the patient with other professionals (professionals i.e. ANALI Leroy, CAR SALES CONSULTANT, lab, RT, psych nurse, social problems specialist, confectionery drops machine operator, teacher, youth officer, case worker)? Give summary @ -No Was smoking cessation discussed for >3mins.? @ -No Was critical care preformed (if so, how long)? @ -No Were there social determinants of health that impacted care today? How? (Homelessness, low income, unemployed, alcoholism, drug addiction, transportation, low edu. Level, literacy, decrease access to med. care, half-way, rehab)? @ -No Was there de-escalation of care discussed even if they declined (Discuss DNR or withdrawal of care, Hospice)? DNR status @ -No What co-morbidities impacted this encounter? (DM, HTN, Smoking, COPD, CAD, Cancer, CVA, ARF, Chemo, Hep., AIDS, mental health diagnosis, sleep apnea, morbid obesity)? @ -IBS, endometriosis Was patient admitted / discharged? Hospital course, mention meds given and route, prescriptions, significant lab abnormalities, going to OR and other pertinent info. @ -Discharge. 33-year-old female presented to ER with a chief complaint of robert pain. History and physical exam completed. Vitals within normal limits. Patient in no signs of acute distress and nontoxic-appearing. Exam remarkable for left lower quadrant abdominal tenderness to palpation. No rebound or guarding. Normal bowel sounds. Laboratory studies obtained appear to be at patient's baseline. Hemoglobin 10.1 (hemoglobin 10.2 04-03-2024). Urinalysis w ith trace protein concerning of dehydration. Patient received IV fluids and symptomatic control in the ER, with improvement. Upon reevaluation, patient resting comfortably in exam room in no signs of acute distress. Results discussed with patient, all questions answered. Patient is agreeable to forego CT scan as she is feeling better. Patient is stable for discharge at this time. Return parameters discussed. Patient discharged in stable condition with follow-up to PCP. Patient verbally expressed understanding and agreed with care plan. Case discussed with the attending, Dr. Sanchez. Undiagnosed new problem with uncertain prognosis? @ -No Drug Therapy requiring intensive monitoring for toxicity (Heparin, Nitro, Insulin, Cardizem)? @ -No Were any procedures done? @ -No Diagnosis/symptom? @ -Abdominal pain Acute, or Chronic, or Acute on Chronic? @ -Acute Uncomplicated (without systemic symptoms) or Complicated (systemic symptoms)? @ -Uncomplicated Side effects of treatment? @ -No Exacerbation, Progression, or Severe Exacerbation? @ -No Poses a threat to life or bodily function? How? (Chest pain, [place], [place], pneumonia, PE, COPD, DKA, ARF, appy, cholecystitis, CVA, Diverticulitis, Homicidal, Suicidal, threat to staff... and all critical care pts) @ -No - Lab Data Result diagrams: 04/09/24 00:16 04/09/24 00:16 Lab Results 04/09/24 04/09/24 04/09/24 Range/Units 00:14 00:14 00:16 WBC 4.8 (3.8-10.6) k/uL RBC 3.24 L (3.80-5.40) m/uL Hgb 10.1 L (11.4-16.0) gm/dL Hct 29.4 L (34.0-46.0) % MCV 90.6 (80.0-100.0) fL MCH 31.0 (25.0-35.0) pg MCHC 34.3 (31.0-37.0) g/dL RDW 14.1 (11.5-15.5) % Plt Count 227 (150-450) k/uL MPV 7.9 Neutrophils % 58 % Lymphocytes % 34 % Monocytes % 4 % Eosinophils % 1 % Basophils % 0 % Neutrophils # 2.8 (1.3-7.7) k/uL Lymphocytes # 1.6 (1.0-4.8) k/uL Monocytes # 0.2 (0-1.0) k/uL Eosinophils # 0.0 (0-0.7) k/uL Basophils # 0.0 (0-0.2) k/uL Sodium (137-145) mmol/L Potassium (3.5-5.1) mmol/L Chloride (98-107) mmol/L Carbon Dioxide (22-30) mmol/L Anion Gap mmol/L BUN (7-17) mg/dL Creatinine (0.52-1.04) mg/dL Est GFR (CKD-EPI)AfAm (>60 ml/min/1.73 sqM) Est GFR (CKD-EPI)NonAf (>60 ml/min/1.73 sqM) Glucose (74-99) mg/dL Plasma Lactic Acid Santhosh (0.7-2.0) mmol/L Calcium (8.4-10.2) mg/dL Total Bilirubin (0.2-1.3) mg/dL AST (14-36) U/L ALT (4-34) U/L Alkaline Phosphatase (38-126) U/L Total Protein (6.3-8.2) g/dL Albumin (3.5-5.0) g/dL Amylase (30-110) U/L Lipase (23-300) U/L Urine Color Yellow Urine Appearance Clear (Clear) Urine pH 6.0 (5.0-8.0) Ur Specific [place] 1.032 (1.001-1.035) Urine Protein Trace H (Negative) Urine Glucose (UA) Negative (Negative) Urine Ketones Negative (Negative) Urine Blood Negative (Negative) Urine Nitrite Negative (Negative) Urine Bilirubin Negative (Negative) Urine Urobilinogen <2.0 (<2.0) mg/dL Ur Leukocyte Esterase Negative (Negative) Urine HCG, Qual Not Detected (Not Detectd) 04/09/24 04/09/24 Range/Units 00:16 00:16 WBC (3.8-10.6) k/uL RBC (3.80-5.40) m/uL Hgb (11.4-16.0) gm/dL Hct (34.0-46.0) % MCV (80.0-100.0) fL MCH (25.0-35.0) pg MCHC (31.0-37.0) g/dL RDW (11.5-15.5) % Plt Count (150-450) k/uL MPV Neutrophils % % Lymphocytes % % Monocytes % % Eosinophils % % Basophils % % Neutrophils # (1.3-7.7) k/uL Lymphocytes # (1.0-4.8) k/uL Monocytes # (0-1.0) k/uL Eosinophils # (0-0.7) k/uL Basophils # (0-0.2) k/uL Sodium 140 (137-145) mmol/L Potassium 4.1 (3.5-5.1) mmol/L Chloride 106 (98-107) mmol/L Carbon Dioxide 25 (22-30) mmol/L Anion Gap 9 mmol/L BUN 14 (7-17) mg/dL Creatinine 0.74 (0.52-1.04) mg/dL Est GFR (CKD-EPI)AfAm >90 (>60 ml/min/1.73 sqM) Est GFR (CKD-EPI)NonAf >90 (>60 ml/min/1.73 sqM) Glucose 101 H (74-99) mg/dL Plasma Lactic Acid Santhosh 1.0 (0.7-2.0) mmol/L Calcium 9.6 (8.4-10.2) mg/dL Total Bilirubin 0.5 (0.2-1.3) mg/dL AST 23 (14-36) U/L ALT 18 (4-34) U/L Alkaline Phosphatase 102 (38-126) U/L Total Protein 6.6 (6.3-8.2) g/dL Albumin 4.1 (3.5-5.0) g/dL Amylase 62 (30-110) U/L Lipase 58 (23-300) U/L Urine Color Urine Appearance (Clear) Urine pH (5.0-8.0) Ur Specific [place] (1.001-1.035) Urine Protein (Negative) Urine Glucose (UA) (Negative) Urine Ketones (Negative) Urine Blood (Negative) Urine Nitrite (Negative) Urine Bilirubin (Negative) Urine Urobilinogen (<2.0) mg/dL Ur Leukocyte Esterase (Negative) Urine HCG, Qual (Not Detectd) Disposition Clinical Impression: Abdominal pain Disposition: HOME SELF-CARE Condition: Stable Instructions (If sedation given, give patient instructions): Abdominal Pain (ED) Additional Instructions: Follow-up with PCP. Return to the ER for any new or worsening symptoms. Is patient prescribed a controlled substance at d/c from ED?: No Referrals: None,Stated [Primary Care Provider] - 1-2 days Time of Disposition: 01:02
[2024-04-09] MEDS: SODIUM CHLORIDE 0.9% 1,000 ML IV STA (00:06)
[2024-04-09] MEDS: ONDANSETRON 4 MG/2 ML VIAL IVP STA (00:07)
[2024-04-09] MEDS: HYDROmorphone 1 MG/ML 1 ML SYRINGE IVP STA (00:09)
[2024-04-09 00:18] VITALS: RESP 18
[2024-04-09 00:31] LABS: Basophils % (A) 0 %; Eosinophils % (A) 1 %; HCT 29.4 % (34.0-46.0); HGB 10.1 gm/dL (11.4-16.0); Lymphocytes # (A) 1.6 k/uL (1.0-4.8); Lymphocytes % (A) 34 %; MCHC 34.3 g/dL (31.0-37.0); MCV 90.6 fL (80.0-100.0); Mean Platelet Volume 7.9; Monocytes # (A) 0.2 k/uL (0-1.0); Monocytes % (A) 4 %; Neutrophils # (A) 2.8 k/uL (1.3-7.7); Neutrophils % (A) 58 %; Platelet Count 227 k/uL (150-450); RBC 3.24 m/uL (3.80-5.40); RDW 14.1 % (11.5-15.5); WBC 4.8 k/uL (3.8-10.6)
[2024-04-09 00:32] LABS: Appearance,Urine Clear (Clear); Bilirubin,Urine Negative (Negative); Blood,Urine Negative (Negative); Color,Urine Yellow; Glucose,Urine (UA) Negative (Negative); Ketones,Urine Negative (Negative); Leukocyte Esterase,Urine Negative (Negative); Nitrite,Urine Negative (Negative); Protein,Urine Trace (Negative); Specific Gravity,Urine 1.032 (1.001-1.035); Urobilinogen,Urine <2.0 mg/dL (<2.0)
[2024-04-09 00:47] LABS: ALT 18 U/L (4-34); AST 23 U/L (14-36); African American GFR (CKD) >90 (>60 ml/min/1.73 sqM); Albumin 4.1 g/dL (3.5-5.0); Alkaline Phosphatase 102 U/L (38-126); Amylase 62 U/L (30-110); Anion Gap 9 mmol/L; Blood Urea Nitrogen 14 mg/dL (7-17); Calcium 9.6 mg/dL (8.4-10.2); Carbon Dioxide 25 mmol/L (22-30); Chloride 106 mmol/L (98-107); Glucose 101 mg/dL (74-99); Lipase 58 U/L (23-300); Non-African American GFR(CKD) >90 (>60 ml/min/1.73 sqM); Potassium 4.1 mmol/L (3.5-5.1); Sodium 140 mmol/L (137-145); Total Bilirubin 0.5 mg/dL (0.2-1.3); Total Protein 6.6 g/dL (6.3-8.2)
[2024-04-09] MEDS: HYDROmorphone 0.5 MG/0.5 ML SYRINGE IVP STA (01:06)
[2024-04-09 01:11] VITALS: BP 115/79; PULSE 87
== END 2024-04-09 01:11 | disposition home or self-care (01) ==
LOC: EC 22:45
CPT/HCPCS: 36415; 80053; 81003; 81025; 82150; 83605; 83690; 85025; 96361; 96374; 96375; 96376; 99284

== ENCOUNTER 2024-04-11 22:55 | Emergency (ER) | payer OTHER ==
[2024-04-11 23:03] VITALS: RESP 18; TEMP 98.3
[2024-04-11 23:52] LABS: Basophils % (A) 0 %; Eosinophils % (A) 1 %; HCT 32.7 % (34.0-46.0); HGB 10.7 gm/dL (11.4-16.0); Lymphocytes # (A) 1.9 k/uL (1.0-4.8); Lymphocytes % (A) 36 %; MCH 29.9 pg (25.0-35.0); MCHC 32.6 g/dL (31.0-37.0); MCV 91.8 fL (80.0-100.0); Mean Platelet Volume 7.5; Monocytes # (A) 0.3 k/uL (0-1.0); Monocytes % (A) 5 %; Neutrophils % (A) 56 %; Platelet Count 237 k/uL (150-450); RBC 3.57 m/uL (3.80-5.40); RDW 13.6 % (11.5-15.5); WBC 5.3 k/uL (3.8-10.6)
--- NOTE | 2024-04-11 23:57 | ED ---
General Adult HPI - General Chief complaint: Abdominal Pain Stated complaint: ABD Pain Time Seen by Provider: 04/11/24 23:09 Source: patient Mode of arrival: ambulatory Limitations: no limitations - History of Present Illness Initial comments: States she has had IBS symptoms x 6 days, multiple episodes loose stools, estimates 6-8 per day, stool nonbloody, low grade fever 101 today, 2 episodes NBNB emesis, abdominal pain usually along lower abdomen, but now along left sided of abdomen, which is different from her usual IBS flares. denies CP, VANDA, vaginal bleeding or discharge, hematuria or dysuria, endorses frequency. Requests norco for pain control. Attempted home norflex without relief. - Related Data Home Medications Medication Instructions Recorded Confirmed Omeprazole 40 mg PO HS 03/16/24 04/03/24 Ondansetron Odt [Zofran Odt] 4 mg PO Q6HR PRN 03/16/24 04/03/24 Orphenadrine Citrate [Orphenadrine 100 mg PO BID PRN 04/02/24 04/03/24 Citrate ER] Previous Rx's Medication Instructions Recorded Hyoscyamine Sulfate [Levsin] 0.125 mg PO Q6HR PRN #15 tab 04/12/24 Allergies Allergy/AdvReac Type Severity Reaction Status Date / Time sulfamethoxazole Allergy Severe Anaphylaxis Verified 04/17/24 19:47 [From Bactrim] trimethoprim [From Bactrim] Allergy Severe Anaphylaxis Verified 04/17/24 19:47 adhesive tape Allergy Rash/Hives Verified 04/17/24 19:47 aloe vera Allergy Rash/Hives Verified 04/17/24 19:47 amoxicillin [From Augmentin] Allergy Itching Verified 04/17/24 19:47 azithromycin Allergy Rash/Hives Verified 04/17/24 19:47 cephalexin Allergy Rash/Hives Verified 04/17/24 19:47 clavulanic acid Allergy Itching Verified 04/17/24 19:47 [From Augmentin] metronidazole [From Flagyl] Allergy Rash/Hives Verified 04/17/24 19:47 Penicillins Allergy Rash/Hives Verified 04/17/24 19:47 alprazolam [From Xanax] AdvReac MAKES Verified 04/17/24 19:47 PARANOID dicyclomine [From Bentyl] AdvReac constipatio Verified 04/17/24 19:47 n Review of Systems ROS Statement: Those systems with pertinent positive or pertinent negative responses have been documented in the HPI. ROS Other: All systems not noted in ROS Statement are negative. Past Medical History Past Medical History: Blood Disorder, GERD/Reflux Additional Past Medical History / Comment(s): Endometriosis, polycystic ovarian syndrome. IRON DEFICIENCY ANEMIA. Stomach Ulcer. Hx ovarian cyst. History of Any Multi-Drug Resistant Organisms: None Reported Past Surgical History: Ablation, Appendectomy, Section, Cholecystectomy, Hernia Repair, Hysterectomy, Tubal Ligation, Uterine Ablation Additional Past Surgical History / Comment(s): Laparoscopy X2, Section X3, right ovary and right tube removed, then total hysterectomy including left ovary and left fallopian tube, cyst removed from chest, ADHESION REMOVAL FROM PAST CSECTION, vaginal/pelvic biopsy. Scar tissure removal abdomen L upper lower Past Anesthesia/Blood Transfusion Reactions: No Reported Reaction Past Psychological History: Anxiety, Depression Smoking Status: Never smoker Past Alcohol Use History: Occasional Past Drug Use History: None Reported - Past Family History Mother Family Medical History: Deep Vein Thrombosis (DVT), Hyperlipidemia Additional Family Medical History / Comment(s): Depression and anxiety. DVT to arm after surgery. General Exam - General Exam Comments Initial Comments: PE: CONSTITUTIONAL: No apparent distress, well appearing SKIN: Warm, dry, no jaundice, hives or petechiae EYES: Pupils are equally round, extraocular movements intact without nystagmus, clear conjunctiva, non-icteric sclera HENT: Normocephalic, atraumatic, moist mucus membranes, oropharynx clear without exudates NECK: , Full range of motion, normal appearance PULMONARY: Clear to auscultation without wheezes, rhonchi, or rales, normal excursion, no accessory muscle use and no stridor CARDIOVASCULAR: Regular rate, rhythm, normal S1 and S2. No appreciated murmurs, rubs or gallops. Strong radial pulses with intact distal perfusion. No lower extremity edema GASTROINTESTINAL: Abdomen is soft, nondistended, no rigidity, active bowel sounds throughout, tenderness with patient in the left lower quadrant suprapubic region and left upper quadrant. No masses palpated. No hepatosplenomegaly] GENITOURINARY: MUSCULOSKELETAL: Extremities have no gross deformity, no edema, redness, or swelling. No calf swelling ot TTP. NEUROLOGIC:_a/o x 3, GCS 15, normal mentation and speech. Moves all extremities x 4 without motor or sensory deficit PSYCHIATRIC:_normal mood and affect, thought process is clear and linear Limitations: no limitations Course Vital Signs 04/11/24 04/12/24 04/12/24 23:02 01:22 02:39 Temperature 98.3 F Pulse Rate 93 76 83 Respiratory 18 18 18 Rate Blood Pressure 122/89 121/80 128/74 O2 Sat by Pulse 100 100 98 Oximetry Medical Decision Making - Medical Decision Making Was pt. sent in by a medical professional or institution (, PA, IRON WORKER APPRENTICE, urgent care, hospital, or usp...) When possible be specific @ -No Did you speak to anyone other than the patient for history (EMS, parent, family, police, friend...)? What history was obtained from this source @ -No Did you review nursing and triage notes (agree or disagree)? Why? @ -I reviewed and agree with nursing and triage notes Were old charts reviewed (outside hosp., previous admission, EMS record, old EKG, old radiological studies, urgent care reports/EKG's, usp records)? Report findings @ On 04/08/2024, had presented for similar lower abdominal pain, had stated she had history kidney stones at that point and felt like something had "come out" when urinating. Per ER physician's note at that time labs were reassuring, urinalysis showed trace protein concerning for dehydration pain was controlled and patient was ultimately discharged home. I did ask patent about this and she states today's symptoms are different in that the pain is radiating up her left side. Patient had laparoscopic appendectomy 03/06. Differential Diagnosis (chest pain, altered mental status, abdominal pain women, abdominal pain men, vaginal bleeding, weakness, fever, dyspnea, syncope, headache, dizziness, GI bleed, back pain, seizure, CVA, palpatations, mental health, musculoskeletal)? @ -Differential Abdominal Pain Women: Differential diagnose remains broad over top considerations include diverticulitis, IBS flare, pancreatitis, UTI, ureterolithiasis, endometriosis, constipation, bowel obstruction, peptic ulcer disease this is not all-inclusive list EKG interpreted by me (3pts min.). @ -As above X-rays interpreted by me (1pt min.). @ -None done CT interpreted by me (1pt min.). @ No evidence of perforation or obstruction U/S interpreted by me (1pt. min.). @ -None done What testing was considered but not performed or refused? (CT, X-rays, U/S, labs)? Why? @ -None What meds were considered but not given or refused? Why? @ -None Did you discuss the management of the patient with other professionals (professionals i.e. DrLuciano, PA, IRON WORKER APPRENTICE, lab, RT, psych nurse, social services coordinator, jig grinder, teacher, immigration officer, case checker)? Give summary @ -No Was smoking cessation discussed for >3mins.? @ -No Was critical care preformed (if so, how long)? @ -No Were there social determinants of health that impacted care today? How? ( Homelessness, low income, unemployed, alcoholism, drug addiction, transportation, low edu. Level, literacy, decrease access to med. care, residential, rehab)? @ -No Was there de-escalation of care discussed even if they declined (Discuss DNR or withdrawal of care, Hospice)? @ -No What co-morbidities impacted this encounter? (DM, HTN, Smoking, COPD, CAD, Cancer, CVA, ARF, Chemo, Hep., AIDS, mental health diagnosis, sleep apnea, morbid obesity)? @ -IBS Was patient admitted / discharged? Hospital course, mention meds given and route, prescriptions, significant lab abnormalities, going to OR and other p ertinent info. @ -Hospital course Patient is a 33-year-old female past medical history of prior hysterectomy, appendectomy, IBS, endometriosis and PCOS presenting today for 5 to 6 days of diarrhea, lower abdominal pain that is now radiating up the lips left side of her abdomen. States she had a fever earlier today at 101 degrees. Took 1 tablet of Tylenol around 530 but then subsequently had an episode of nonbloody nonbilious emesis. States home norflex did not help pain but did vomit it up. Requests norco. On my assessment patient is well-appearing and in no acute distress. Abdomen is soft, nondistended, no rigidity, active bowel sounds throughout, tenderness with patient in the left lower quadrant suprapubic region and left upper quadrant. No masses palpated. Mucous membranes moist. Discussed with patient plan for CT abdomen pelvis as she had presented here recently for similar but at that time imaing not done as patient's labs reassuring and symptoms improved; UA, comprehensive labs, fluids, pain and nausea control. Pt states that she typically takes norco at home and that usually helps her pain, though she has recently run out, because she was discharged with it post appendectomy and does not currently have a PCP. I discussed plan for levsin, zofran, and then can trial home norflex once nausea controlled. Pt agreeable with plan. Labs and imaging reviewed. Grossly within normal limits. Abnormal values not concerning for acute pathology related to presenting complaint. CT shows no acute process. Hgb 10.7, at baseline. On reassessment patient endorses improvement of symptoms though requests morphine for additional pain control as she still as some pain, though improved. Will trial PO norco to ensure tolerance PO intake. Pt agreeable with POC. On reassessment pain improved. Discussed plan for discharge home with trial of levsin for diarrhea/abdominal cramping/ IBS symptoms. Pt agreeable with plan however does request norco as well however I discussed with her that I feel norco may worsen IBS symptoms terminal make up operator due to increased risk of constiipatioin in combination with levsin. Pt understandinig and agreeable with POC. In my medical judgment there is currently no evidence of an immediate life- threatening or surgical condition. Discharge is therefore indicated at this time. Discharge treatment instructions, follow up instructions, and appropriate emergency department return precautions were discussed with the patient and/or medical decision maker. Patient and/or medical decision maker expressed understanding of and agreed with the treatment plan, follow up instructions, and emergency department return precaution. All patient's and/or medical decision maker's questions were answered. Undiagnosed new problem with uncertain prognosis? @ -No Drug Therapy requiring intensive monitoring for toxicity (Heparin, Nitro, Insulin, Cardizem)? @ -No Were any procedures done? @ -No Diagnosis/symptom? @ IBS, diarrhea Acute, or Chronic, or Acute on Chronic? @ -Acute Uncomplicated (without systemic symptoms) or Complicated (systemic symptoms)? @ -complicated Side effects of treatment? @ -No Exacerbation, Progression, or Severe Exacerbation? @ -Exacerbation IBS Poses a threat to life or bodily function? How? (Chest pain, USA, PA, pneumonia, PE, COPD, DKA, ARF, appy, cholecystitis, CVA, Diverticulitis, Homicidal, Suicidal, threat to staff... and all critical care pts) @ -Unlikely - Lab Data Result diagrams: 04/11/24 23:20 04/11/24 23:20 Lab Results 04/11/24 04/11/24 04/11/24 Range/Units 23:20 23:20 23:20 WBC 5.3 (3.8-10.6) k/uL RBC 3.57 L (3.80-5.40) m/uL Hgb 10.7 L (11.4-16.0) gm/dL Hct 32.7 L (34.0-46.0) % MCV 91.8 (80.0-100.0) fL MCH 29.9 (25.0-35.0) pg MCHC 32.6 (31.0-37.0) g/dL RDW 13.6 (11.5-15.5) % Plt Count 237 (150-450) k/uL MPV 7.5 Neutrophils % 56 % Lymphocytes % 36 % Monocytes % 5 % Eosinophils % 1 % Basophils % 0 % Neutrophils # 3.0 (1.3-7.7) k/uL Lymphocytes # 1.9 (1.0-4.8) k/uL Monocytes # 0.3 (0-1.0) k/uL Eosinophils # 0.0 (0-0.7) k/uL Basophils # 0.0 (0-0.2) k/uL PT 9.6 L (10.0-12.5) sec INR 0.8 (<1.2) APTT 24.0 (22.0-30.0) sec Sodium 138 (137-145) mmol/L Potassium 4.1 (3.5-5.1) mmol/L Chloride 106 (98-107) mmol/L Carbon Dioxide 28 (22-30) mmol/L Anion Gap 4 mmol/L BUN 15 (7-17) mg/dL Creatinine 0.77 (0.52-1.04) mg/dL Est GFR (CKD-EPI)AfAm >90 (>60 ml/min/1.73 sqM) Est GFR (CKD-EPI)NonAf >90 (>60 ml/min/1.73 sqM) Glucose 99 (74-99) mg/dL Calcium 10.0 (8.4-10.2) mg/dL Total Bilirubin 0.6 (0.2-1.3) mg/dL AST 23 (14-36) U/L ALT 18 (4-34) U/L Alkaline Phosphatase 113 (38-126) U/L Total Protein 7.2 (6.3-8.2) g/dL Albumin 4.5 (3.5-5.0) g/dL Amylase 65 (30-110) U/L Lipase 53 (23-300) U/L Urine Color Urine Appearance (Clear) Urine pH (5.0-8.0) Ur Specific [place] (1.001-1.035) Urine Protein (Negative) Urine Glucose (UA) (Negative) Urine Ketones (Negative) Urine Blood (Negative) Urine Nitrite (Negative) Urine Bilirubin (Negative) Urine Urobilinogen (<2.0) mg/dL Ur Leukocyte Esterase (Negative) 04/11/24 Range/Units 23:20 WBC (3.8-10.6) k/uL RBC (3.80-5.40) m/uL Hgb (11.4-16.0) gm/dL Hct (34.0-46.0) % MCV (80.0-100.0) fL MCH (25.0-35.0) pg MCHC (31.0-37.0) g/dL RDW (11.5-15.5) % Plt Count (150-450) k/uL MPV Neutrophils % % Lymphocytes % % Monocytes % % Eosinophils % % Basophils % % Neutrophils # (1.3-7.7) k/uL Lymphocytes # (1.0-4.8) k/uL Monocytes # (0-1.0) k/uL Eosinophils # (0-0.7) k/uL Basophils # (0-0.2) k/uL PT (10.0-12.5) sec INR (<1.2) APTT (22.0-30.0) sec Sodium (137-145) mmol/L Potassium (3.5-5.1) mmol/L Chloride (98-107) mmol/L Carbon Dioxide (22-30) mmol/L Anion Gap mmol/L BUN (7-17) mg/dL Creatinine (0.52-1.04) mg/dL Est GFR (CKD-EPI)AfAm (>60 ml/min/1.73 sqM) Est GFR (CKD-EPI)NonAf (>60 ml/min/1.73 sqM) Glucose (74-99) mg/dL Calcium (8.4-10.2) mg/dL Total Bilirubin (0.2-1.3) mg/dL AST (14-36) U/L ALT (4-34) U/L Alkaline Phosphatase (38-126) U/L Total Protein (6.3-8.2) g/dL Albumin (3.5-5.0) g/dL Amylase (30-110) U/L Lipase (23-300) U/L Urine Color Yellow Urine Appearance Clear (Clear) Urine pH 6.5 (5.0-8.0) Ur Specific [place] 1.030 (1.001-1.035) Urine Protein Trace H (Negative) Urine Glucose (UA) Negative (Negative) Urine Ketones Negative (Negative) Urine Blood Negative (Negative) Urine Nitrite Negative (Negative) Urine Bilirubin Negative (Negative) Urine Urobilinogen <2.0 (<2.0) mg/dL Ur Leukocyte Esterase Negative (Negative) Disposition Clinical Impression: Diarrhea, Irritable bowel syndrome, Abdominal pain Disposition: HOME SELF-CARE Condition: Good Instructions (If sedation given, give patient instructions): Irritable Bowel Syndrome (ED) Additional Instructions: Every disease is a spectrum and a small chance still exists that a serious condition could develop, for this reason, please monitor yourself closely for new, changing or worsening symptoms, symptoms that persist beyond an additional 48 hours, black or bloody stools, lightheadedness, fever more than 4 days, pain you cannot control with home medications, inability to tolerate/keep down fluids or your medications, inability to follow up with outpatient providers as instructed and should you experience these symptoms or should you have any further concerns for your wellbeing please return to the ED or call 911 immediately. PLEASE call your primary care physician as soon as possible to arrange / discuss plan for followup appointment. Appointment in the next 1-3 days is strongly enco uraged if possible. PLEASE let us know here before you leave if there is anything further we can do to be of any assistance. Take care and feel Better! Prescriptions: Hyoscyamine Sulfate [Levsin] 0.125 mg PO Q6HR PRN #15 tab PRN Reason: Diarrhea Is patient prescribed a controlled substance at d/c from ED?: No Referrals: None,Stated [Primary Care Provider] - 1-2 days Forms: Area PCPs
[2024-04-12] MEDS: ONDANSETRON 4 MG/2 ML VIAL IVP STA (00:04)
[2024-04-12] MEDS: KETOROLAC 15 MG/ML 1 ML VIAL IVP STA (00:04)
[2024-04-12] MEDS: SODIUM CHLORIDE 0.9% 1,000 ML IV STA (00:05)
[2024-04-12] MEDS: PANTOPRAZOLE 40 MG/10 ML VIAL IVP STA (00:05)
[2024-04-12] MEDS: HYOSCYAMINE SULFATE 0.125 MG TAB PO STA (00:08)
[2024-04-12 00:09] LABS: ALT 18 U/L (4-34); AST 23 U/L (14-36); African American GFR (CKD) >90 (>60 ml/min/1.73 sqM); Albumin 4.5 g/dL (3.5-5.0); Alkaline Phosphatase 113 U/L (38-126); Amylase 65 U/L (30-110); Anion Gap 4 mmol/L; Blood Urea Nitrogen 15 mg/dL (7-17); Carbon Dioxide 28 mmol/L (22-30); Chloride 106 mmol/L (98-107); Glucose 99 mg/dL (74-99); Lipase 53 U/L (23-300); Non-African American GFR(CKD) >90 (>60 ml/min/1.73 sqM); Potassium 4.1 mmol/L (3.5-5.1); Sodium 138 mmol/L (137-145); Total Bilirubin 0.6 mg/dL (0.2-1.3); Total Protein 7.2 g/dL (6.3-8.2)
[2024-04-12 00:11] LABS: INR 0.8 (<1.2); Prothrombin Time 9.6 sec (10.0-12.5)
[2024-04-12 00:20] LABS: Appearance,Urine Clear (Clear); Bilirubin,Urine Negative (Negative); Blood,Urine Negative (Negative); Color,Urine Yellow; Glucose,Urine (UA) Negative (Negative); Ketones,Urine Negative (Negative); Leukocyte Esterase,Urine Negative (Negative); Nitrite,Urine Negative (Negative); PH, Urine 6.5 (5.0-8.0); Protein,Urine Trace (Negative); Urobilinogen,Urine <2.0 mg/dL (<2.0)
--- NOTE | 2024-04-12 00:51 | CT ---
EXAMINATION TYPE: CT abdomen pelvis w con DATE OF EXAM: 04/12/2024 HISTORY: abdominal pain on the left side, prior on pacs CT DLP: 1026.4mGycm Automated Exposure Control for Dose Reduction was Utilized. CONTRAST: CT scan of the abdomen and pelvis is performed with IV Contrast, patient injected with 100 mL of Isov ue 300. COMPARISON: Prior CT March 16, 2024 FINDINGS: LUNG BASES: No significant abnormality is appreciated. LIVER/GB: Cholecystectomy clips are redemonstrated. PANCREAS: No significant abnormality is seen. SPLEEN: No significant abnormality is seen. ADRENALS: No significant abnormality is seen. KIDNEYS: No significant abnormality is seen. BOWEL: Surgical change along the diaphragmatic hiatus is present. Surgical changes from appendectomy in base of cecum is again seen. No abnormal small or large bowel dilatation. UTERUS/[place]NEXA: Uterus is surgically absent or atrophic in appearance. Tubal ligation clips in the pel maco cul-de-sac are redemonstrated. LYMPH NODES: No greater than 1cm abdominal or pelvic lymph nodes are appreciated. OSSEOUS STRUCTURES: No significant abnormality is seen. OTHER: No significant additional abnormality is seen. IMPRESSION: No significant new or acute finding is seen to account for patient's clinical symptoms of left-sided pain. [facility], , 04/12/2024 12:49 AM
[2024-04-12] MEDS: HYDROcodone/APAP 5-325MG 1 EACH TAB PO STA (01:10)
[2024-04-12] MEDS: METOCLOPRAMIDE 10 MG TAB PO STA (01:11)
[2024-04-12 02:40] VITALS: BP 128/74; PULSE 83
== END 2024-04-12 02:41 | disposition home or self-care (01) ==
LOC: EC 22:55
CPT/HCPCS: 36415; 74177; 80053; 81003; 82150; 83690; 85025; 85610; 85730; 96361; 96374; 96375; 99285

== ENCOUNTER 2024-04-17 19:41 | Emergency (ER) | payer OTHER ==
--- NOTE | 2024-04-17 20:58 | ED ---
Abdominal Pain HPI - General Source: patient, RN notes reviewed Mode of arrival: ambulatory Limitations: no limitations <Erin Lawson - Last Filed: 04/17/24 22:54> <Donal Carpio - Last Filed: 04/18/24 05:38> <Roshni Mora - Last Filed: 04/18/24 16:22> - General Chief Complaint: Abdominal Pain Stated Complaint: Abd Pain Time Seen by Provider: 04/17/24 20:56 - History of Present Illness Initial Comments: 33-year-old female presenting here with chief complaint of abdominal cramping x 2 days. States over the weekend she was seen in the ER for similar symptoms where she underwent a CT scan and was told she had colitis. 2 days ago, she felt as though she was constipated as she had not have had a bowel movement in several days, she took a laxative and reports she then had diarrhea for 2 days. She took Imodium today which resolved the diarrhea, however patient continues to have abdominal cramping. Denies fever, chills, vomiting. She does have an extensive abdominal surgical history. Denies rectal bleeding, vaginal bleeding, or vomiting blood. Denies lightheadedness or headache. (Erin Lawson) - Related Data Home Medications Medication Instructions Recorded Confirmed Omeprazole 40 mg PO HS 03/16/24 04/03/24 Ondansetron Odt [Zofran Odt] 4 mg PO Q6HR PRN 03/16/24 04/03/24 Orphenadrine Citrate [Orphenadrine 100 mg PO BID PRN 04/02/24 04/03/24 Citrate ER] Previous Rx's Medication Instructions Recorded Hyoscyamine Sulfate [Levsin] 0.125 mg PO Q6HR PRN #15 tab 04/12/24 Allergies Allergy/AdvReac Type Severity Reaction Status Date / Time sulfamethoxazole Allergy Severe Anaphylaxis Verified 04/17/24 19:47 [From Bactrim] trimethoprim [From Bactrim] Allergy Severe Anaphylaxis Verified 04/17/24 19:47 adhesive tape Allergy Rash/Hives Verified 04/17/24 19:47 aloe vera Allergy Rash/Hives Verified 04/17/24 19:47 amoxicillin [From Augmentin] Allergy Itching Verified 04/17/24 19:47 azithromycin Allergy Rash/Hives Verified 09/27/24 19:47 cephalexin Allergy Rash/Hives Verified 04/17/24 19:47 clavulanic acid Allergy Itching Verified 04/17/24 19:47 [From Augmentin] metronidazole [From Flagyl] Allergy Rash/Hives Verified 04/17/24 19:47 Penicillins Allergy Rash/Hives Verified 04/17/24 19:47 alprazolam [From Xanax] AdvReac MAKES Verified 04/17/24 19:47 PARANOID dicyclomine [From Bentyl] AdvReac constipatio Verified 04/17/24 19:47 n Review of Systems ROS Other: All systems not noted in ROS Statement are negative. <Erin Lawson - Last Filed: 04/17/24 22:54> ROS Other: All systems not noted in ROS Statement are negative. <Donal Carpio - Last Filed: 04/18/24 05:38> ROS Other: All systems not noted in ROS Statement are negative. <Roshni Mora - Last Filed: 04/18/24 16:22> ROS Statement: Those systems with pertinent positive or pertinent negative responses have been documented in the HPI. Past Medical History Past Medical History: Blood Disorder, GERD/Reflux Additional Past Medical History / Comment(s): Endometriosis, polycystic ovarian syndrome. IRON DEFICIENCY ANEMIA. Stomach Ulcer. Hx ovarian cyst. History of Any Multi-Drug Resistant Organisms: None Reported Past Surgical History: Ablation, Appendectomy, Section, Cholecystectomy, Hernia Repair, Hysterectomy, Tubal Ligation, Uterine Ablation Additional Past Surgical History / Comment(s): Laparoscopy X2, Section X3, right ovary and right tube removed, then total hysterectomy including left ovary and left fallopian tube, cyst removed from chest, ADHESION REMOVAL FROM PAST CSECTION, vaginal/pelvic biopsy. Scar tissure removal abdomen L upper lower Past Anesthesia/Blood Transfusion Reactions: No Reported Reaction Past Psychological History: Anxiety, Depression Smoking Status: Never smoker Past Alcohol Use History: Occasional Past Drug Use History: None Reported - Past Family History Mother Family Medical History: Deep Vein Thrombosis (DVT), Hyperlipidemia Additional Family Medical History / Comment(s): Depression and anxiety. DVT to arm after surgery. <Erin Lawson - Last Filed: 04/17/24 22:54> General Exam Limitations: no limitations General appearance: alert, in no apparent distress Head exam: Present: atraumatic, normocephalic, normal inspection Eye exam: Present: normal appearance, PERRL, EOMI. Absent: scleral icterus, conjunctival injection, periorbital swelling Respiratory exam: Present: normal lung sounds bilaterally. Absent: respiratory distress, wheezes, rales, rhonchi, stridor Cardiovascular Exam: Present: regular rate, normal rhythm, normal heart sounds. Absent: systolic murmur, diastolic murmur, rubs, gallop, clicks GI/Abdominal exam: Present: soft, normal bowel sounds. Absent: distended, tenderness, guarding, rebound, rigid Back exam: Absent: CVA tenderness (R), CVA tenderness (L) Neurological exam: Present: alert, oriented X3 Psychiatric exam: Present: normal affect, normal mood Skin exam: Present: warm, dry, intact, normal color. Absent: rash <Erin Lawson - Last Filed: 04/17/24 22:54> Course Vital Signs 04/17/24 04/18/24 04/18/24 19:45 00:51 01:10 Temperature 98 F 98.5 F 98.4 F Pulse Rate 113 H 81 89 Respiratory 20 16 16 Rate Blood Pressure 141/85 134/88 126/90 O2 Sat by Pulse 98 96 Oximetry 04/18/24 04/18/24 04/18/24 01:30 01:48 02:00 Temperature 98.4 F Pulse Rate 89 79 83 Respiratory 18 18 16 Rate Blood Pressure 134/85 123/68 123/68 O2 Sat by Pulse 96 95 96 Oximetry 04/18/24 04/18/24 04/18/24 03:00 04:00 04:49 Temperature 98.5 F Pulse Rate 77 85 87 Respiratory 18 16 18 Rate Blood Pressure 122/77 112/70 122/77 O2 Sat by Pulse 97 96 96 Oximetry 04/18/24 06:00 Temperature Pulse Rate 85 Respiratory 18 Rate Blood Pressure 112/74 O2 Sat by Pulse 96 Oximetry Medical Decision Making - Lab Data Result diagrams: 04/17/24 21:40 04/17/24 21:40 <Erin Lawson - Last Filed: 04/17/24 22:54> - Lab Data Result diagrams: 04/18/24 04:21 04/17/24 21:40 <Donal Carpio - Last Filed: 04/18/24 05:38> - Lab Data Result diagrams: 04/18/24 04:21 04/17/24 21:40 <Roshni Mora - Last Filed: 04/18/24 16:22> - Medical Decision Making Was pt. sent in by a medical professional or institution (ANALI Leroy, PRODUCTION LINE WORKER, urgent ca re, hospital, or detention...) When possible be specific @ -No Did you speak to anyone other than the patient for history (EMS, parent, family, police, friend...)? What history was obtained from this source @ -No Did you review nursing and triage notes (agree or disagree)? Why? @ -I reviewed and agree with nursing and triage notes Were old charts reviewed (outside hosp., previous admission, EMS record, old EKG, old radiological studies, urgent care reports/EKG's, detention records)? Report findings @ -Previous ER visit from last week reviewed including CT scan which revealed no acute process Differential Diagnosis (chest pain, altered mental status, abdominal pain women, abdominal pain men, vaginal bleeding, weakness, fever, dyspnea, syncope, headache, dizziness, GI bleed, back pain, seizure, CVA, palpatations, mental health, musculoskeletal)? @ -Differential Abdominal Pain Women: Appendicitis, Cholecystitis, diverticulosis, ischemic bowel, pancreatitis, hepatitis, UTI, gastroenteritis, AAA, incarcerated hernia, bowel obstruction, constipation, inflammatory bowel, hepatitis, peptic ulcer disease, splenic infarction, perforated viscus, vulvitis, ovarian torsion, PID, kidney stone, placenta abruption, this is not meant to be an all-inclusive list EKG interpreted by me (3pts min.). @ -None X-rays interpreted by me (1pt min.). @ -None done CT interpreted by me (1pt min.). @ -CT abdomen pelvis pending U/S interpreted by me (1pt. min.). @ -None done What testing was considered but not performed or refused? (CT, X-rays, U/S, labs)? Why? @ -None What meds were considered but not given or refused? Why? @ -None Did you discuss the management of the patient with other professionals (professionals i.e. ANALI Leroy, PRODUCTION LINE WORKER, lab, RT, psych nurse, social service director, rural route carrier, teacher, risk control officer, manager of case)? Give summary @ -I spoke with the [facility] transfer team who does not accept admission at this time as they do not believe anemia is GI related. They recommend CT sc an of abdomen pelvis. Was smoking cessation discussed for >3mins.? @ -No Was critical care preformed (if so, how long)? @ -No Were there social determinants of health that impacted care today? How? (H omelessness, low income, unemployed, alcoholism, drug addiction, transportation, low edu. Level, literacy, decrease access to med. care, detention, rehab)? @ -No Was there de-escalation of care discussed even if they declined (Discuss DNR or withdrawal of care, Hospice)? DNR status @ -No What co-morbidities impacted this encounter? (DM, HTN, Smoking, COPD, CAD, Cancer, CVA, ARF, Chemo, Hep., AIDS, mental health diagnosis, sleep apnea, morbid obesity)? @ -None Was patient admitted / discharged? Hospital course, mention meds given and route, prescriptions, significant lab abnormalities, going to OR and other pertinent info. @ -This is a 33-year-old female presenting with abdominal cramping x 2 days. Patient states she took a MiraLAX 2 days ago due to constipation, which gave her diarrhea and abdominal cramps. Patient took Imodium earlier today which stopped the diarrhea but she continues to have abdominal cramps. Vital signs remarkable for mild tachycardia, all other vitals are within normal limits. Abdomen is soft and nontender. CBC, CMP remarkable for hemoglobin 6.3. Type and screen and packed red blood cells ordered at this time. I spoke with [facility], [facility] transfer team who does not accept admission at this time as they do not believe anemia is GI related. They recommend CT scan of abdomen pelvis. Case was signed out to Roshni Mora PA-C pending CT scan. (Erin Lawson) Patient was signed out to me pending CT scan results. CT of the abdomen pelvis with IV contrast reveals hepatic steatosis with a cholecystectomy and appendectomy, in January unremarkable as compared to numerous previous CT imaging studies of the abdomen that were completed at this facility. Stool occult is negative. Patient is provided with 1 unit of packed red blood cells and laboratory results will be redrawn afterwards. Patient is signed out to my attending, Dr. Carpio pending repeat CBC and disposition. (Roshni Mora) - Lab Data Lab Results 04/17/24 04/17/24 04/17/24 Range/Units 21:40 21:40 21:40 WBC 4.7 (3.8-10.6) k/uL RBC 2.06 L (3.80-5.40) m/uL Hgb 6.3 L* D (11.4-16.0) gm/dL Hct 18.5 L* (34.0-46.0) % MCV 89.7 (80.0-100.0) fL MCH 30.6 (25.0-35.0) pg MCHC 34.1 (31.0-37.0) g/dL RDW 14.0 (11.5-15.5) % Plt Count 278 (150-450) k/uL MPV 7.8 Neutrophils % 59 % Lymphocytes % 33 % Monocytes % 5 % Eosinophils % 1 % Basophils % 0 % Neutrophils # 2.8 (1.3-7.7) k/uL Lymphocytes # 1.6 (1.0-4.8) k/uL Monocytes # 0.3 (0-1.0) k/uL Eosinophils # 0.0 (0-0.7) k/uL Basophils # 0.0 (0-0.2) k/uL PT (10.0-12.5) sec INR (<1.2) APTT (22.0-30.0) sec Sodium 138 (137-145) mmol/L Potassium 4.1 (3.5-5.1) mmol/L Chloride 104 (98-107) mmol/L Carbon Dioxide 27 (22-30) mmol/L Anion Gap 7 mmol/L BUN 10 (7-17) mg/dL Creatinine 0.67 (0.52-1.04) mg/dL Est GFR (CKD-EPI)AfAm >90 (>60 ml/min/1.73 sqM) Est GFR (CKD-EPI)NonAf >90 (>60 ml/min/1.73 sqM) Glucose 98 (74-99) mg/dL Plasma Lactic Acid Santhosh 0.9 (0.7-2.0) mmol/L Calcium 10.1 (8.4-10.2) mg/dL Total Bilirubin 0.6 (0.2-1.3) mg/dL AST 25 (14-36) U/L ALT 18 (4-34) U/L Alkaline Phosphatase 99 (38-126) U/L Total Protein 6.9 (6.3-8.2) g/dL Albumin 4.3 (3.5-5.0) g/dL Lipase 28 (23-300) U/L Urine Color Urine Appearance (Clear) Urine pH (5.0-8.0) Ur Specific [place] (1.001-1.035) Urine Protein (Negative) Urine Glucose (UA) (Negative) Urine Ketones (Negative) Urine Blood (Negative) Urine Nitrite (Negative) Urine Bilirubin (Negative) Urine Urobilinogen (<2.0) mg/dL Ur Leukocyte Esterase (Negative) Stool Occult Blood (Negative) Blood Type Blood Type Recheck Bld Type Recheck Status Antibody Screen Crossmatch Spec Expiration Date 04/17/24 04/17/24 04/17/24 Range/Units 23:00 23:01 23:01 WBC (3.8-10.6) k/uL RBC (3.80-5.40) m/uL Hgb (11.4-16.0) gm/dL Hct (34.0-46.0) % MCV (80.0-100.0) fL MCH (25.0-35.0) pg MCHC (31.0-37.0) g/dL RDW (11.5-15.5) % Plt Count (150-450) k/uL MPV Neutrophils % % Lymphocytes % % Monocytes % % Eosinophils % % Basophils % % Neutrophils # (1.3-7.7) k/uL Lymphocytes # (1.0-4.8) k/uL Monocytes # (0-1.0) k/uL Eosinophils # (0-0.7) k/uL Basophils # (0-0.2) k/uL PT 10.3 (10.0-12.5) sec INR 0.9 (<1.2) APTT 25.3 (22.0-30.0) sec Sodium (137-145) mmol/L Potassium (3.5-5.1) mmol/L Chloride (98-107) mmol/L Carbon Dioxide (22-30) mmol/L Anion Gap mmol/L BUN (7-17) mg/dL Creatinine (0.52-1.04) mg/dL Est GFR (CKD-EPI)AfAm (>60 ml/min/1.73 sqM) Est GFR (CKD-EPI)NonAf (>60 ml/min/1.73 sqM) Glucose (74-99) mg/dL Plasma Lactic Acid Santhosh (0.7-2.0) mmol/L Calcium (8.4-10.2) mg/dL Total Bilirubin (0.2-1.3) mg/dL AST (14-36) U/L ALT (4-34) U/L Alkaline Phosphatase (38-126) U/L Total Protein (6.3-8.2) g/dL Albumin (3.5-5.0) g/dL Lipase (23-300) U/L Urine Color Colorless Urine Appearance Clear (Clear) Urine pH 7.0 (5.0-8.0) Ur Specific [place] 1.010 (1.001-1.035) Urine Protein Negative (Negative) Urine Glucose (UA) Negative (Negative) Urine Ketones Negative (Negative) Urine Blood Negative (Negative) Urine Nitrite Negative (Negative) Urine Bilirubin Negative (Negative) Urine Urobilinogen <2.0 (<2.0) mg/dL Ur Leukocyte Esterase Negative (Negative) Stool Occult Blood (Negative) Blood Type A Positive Blood Type Recheck A Pos Bld Type Recheck Status No Antibody Screen NEGATIVE Crossmatch See Detail Spec Expiration Date 04/20/2024 - 229904/18/24 04/18/24 Range/Units 00:15 04:21 WBC 3.8 (3.8-10.6) k/uL RBC 3.41 L (3.80-5.40) m/uL Hgb 10.4 L D (11.4-16.0) gm/dL Hct 31.5 L (34.0-46.0) % MCV 92.3 (80.0-100.0) fL MCH 30.6 (25.0-35.0) pg MCHC 33.1 (31.0-37.0) g/dL RDW 13.6 (11.5-15.5) % Plt Count 174 (150-450) k/uL MPV 7.1 Neutrophils % 49 % Lymphocytes % 42 % Monocytes % 6 % Eosinophils % 1 % Basophils % 0 % Neutrophils # 1.8 (1.3-7.7) k/uL Lymphocytes # 1.6 (1.0-4.8) k/uL Monocytes # 0.2 (0-1.0) k/uL Eosinophils # 0.0 (0-0.7) k/uL Basophils # 0.0 (0-0.2) k/uL PT (10.0-12.5) sec INR (<1.2) APTT (22.0-30.0) sec Sodium (137-145) mmol/L Potassium (3.5-5.1) mmol/L Chloride (98-107) mmol/L Carbon Dioxide (22-30) mmol/L Anion Gap mmol/L BUN (7-17) mg/dL Creatinine (0.52-1.04) mg/dL Est GFR (CKD-EPI)AfAm (>60 ml/min/1.73 sqM) Est GFR (CKD-EPI)NonAf (>60 ml/min/1.73 sqM) Glucose (74-99) mg/dL Plasma Lactic Acid Santhosh (0.7-2.0) mmol/L Calcium (8.4-10.2) mg/dL Total Bilirubin (0.2-1.3) mg/dL AST (14-36) U/L ALT (4-34) U/L Alkaline Phosphatase (38-126) U/L Total Protein (6.3-8.2) g/dL Albumin (3.5-5.0) g/dL Lipase (23-300) U/L Urine Color Urine Appearance (Clear) Urine pH (5.0-8.0) Ur Specific [place] (1.001-1.035) Urine Protein (Negative) Urine Glucose (UA) (Negative) Urine Ketones (Negative) Urine Blood (Negative) Urine Nitrite (Negative) Urine Bilirubin (Negative) Urine Urobilinogen (<2.0) mg/dL Ur Leukocyte Esterase (Negative) Stool Occult Blood Negative (Negative) Blood Type Blood Type Recheck Bld Type Recheck Status Antibody Screen Crossmatch Spec Expiration Date Disposition <Erin Lawson - Last Filed: 04/17/24 22:54> Is patient prescribed a controlled substance at d/c from ED?: No <Donal Carpio - Last Filed: 04/18/24 05:38> Is patient prescribed a controlled substance at d/c from ED?: No <Roshni Mora - Last Filed: 04/18/24 16:22> Clinical Impression: Abdominal pain Disposition: HOME SELF-CARE Condition: Good Instructions (If sedation given, give patient instructions): Abdominal Pain (ED) Referrals: None,Stated [Primary Care Provider] - 1-2 days
[2024-04-17] MEDS: KETOROLAC 15 MG/ML 1 ML VIAL IVP STA (21:32)
[2024-04-17] MEDS: SODIUM CHLORIDE 0.9% 1,000 ML IV STA (21:32)
[2024-04-17] MEDS: METOCLOPRAMIDE 5 MG/ML 2 ML VIAL IVP STA (21:34)
[2024-04-17] MEDS: MORPHINE SULFATE 4 MG/ML SYRINGE IVP STA ×2 (21:34→23:17)
[2024-04-17 22:03] LABS: Basophils % (A) 0 %; Eosinophils % (A) 1 %; Lymphocytes # (A) 1.6 k/uL (1.0-4.8); Lymphocytes % (A) 33 %; MCH 30.6 pg (25.0-35.0); MCHC 34.1 g/dL (31.0-37.0); MCV 89.7 fL (80.0-100.0); Mean Platelet Volume 7.8; Monocytes # (A) 0.3 k/uL (0-1.0); Monocytes % (A) 5 %; Neutrophils # (A) 2.8 k/uL (1.3-7.7); Neutrophils % (A) 59 %; Platelet Count 278 k/uL (150-450); RBC 2.06 m/uL (3.80-5.40); WBC 4.7 k/uL (3.8-10.6)
[2024-04-17 22:07] LABS: HGB 6.3 gm/dL (11.4-16.0)
[2024-04-17 22:08] LABS: HCT 18.5 % (34.0-46.0)
[2024-04-17 22:13] LABS: ALT 18 U/L (4-34); AST 25 U/L (14-36); African American GFR (CKD) >90 (>60 ml/min/1.73 sqM); Albumin 4.3 g/dL (3.5-5.0); Alkaline Phosphatase 99 U/L (38-126); Anion Gap 7 mmol/L; Blood Urea Nitrogen 10 mg/dL (7-17); Calcium 10.1 mg/dL (8.4-10.2); Carbon Dioxide 27 mmol/L (22-30); Chloride 104 mmol/L (98-107); Glucose 98 mg/dL (74-99); Lipase 28 U/L (23-300); Non-African American GFR(CKD) >90 (>60 ml/min/1.73 sqM); Potassium 4.1 mmol/L (3.5-5.1); Sodium 138 mmol/L (137-145); Total Bilirubin 0.6 mg/dL (0.2-1.3); Total Protein 6.9 g/dL (6.3-8.2)
[2024-04-17 23:47] LABS: INR 0.9 (<1.2); Partial Thromboplastin Time 25.3 sec (22.0-30.0); Prothrombin Time 10.3 sec (10.0-12.5)
--- NOTE | 2024-04-17 23:53 | CT ---
EXAM: CT Abdomen and Pelvis With Intravenous Contrast CLINICAL HISTORY: ITS.REASON CT Reason: abdominal pain, low hemoglobin TECHNIQUE: Axial computed tomography images of the abdomen and pelvis with intravenous contrast. CTDI is 23 mGy and DLP is 1071.2 mGy-cm. This CT exam was performed using one or more of the following dose reduction techniques: automated exposure control, adjustment of the mA and/or kV according to patient size, and/or use of iterative reconstruction technique. COMPARISON: No relevant prior studies available. FINDINGS: Lung bases: Unremarkable. No mass. No consolidation. ABDOMEN: Liver: Hepatic steatosis. Gallbladder and bile ducts: Cholecystectomy. No ductal dilation. Pancreas: Unremarkable. No mass. No ductal dilation. Spleen: Unremarkable. No splenomegaly. Adrenals: Unremarkable. No mass. Kidneys and ureters: Unremarkable. No solid mass. No hydronephrosis. Stomach and bowel: Unremarkable. No obstruction. No mucosal thickening. PELVIS: Appendix: Appendectomy. Bladder: Decompressed urinary bladder. Reproductive: Unremarkable as visualized. ABDOMEN and PELVIS: Intraperitoneal space: Unremarkable. No free air. No significant fluid collection. Bones/joints: No acute fracture. No dislocation. Soft tissues: Unremarkable. Vasculature: Unremarkable. No abdominal aortic aneurysm. Lymph nodes: Unremarkable. No enlarged lymph nodes. IMPRESSION: 1. Hepatic steatosis. 2. Cholecystectomy. 3. Appendectomy.
[2024-04-18 00:02] LABS: Appearance,Urine Clear (Clear); Bilirubin,Urine Negative (Negative); Blood,Urine Negative (Negative); Color,Urine Colorless; Glucose,Urine (UA) Negative (Negative); Ketones,Urine Negative (Negative); Leukocyte Esterase,Urine Negative (Negative); Nitrite,Urine Negative (Negative); Protein,Urine Negative (Negative); Urobilinogen,Urine <2.0 mg/dL (<2.0)
[2024-04-18] MEDS: PANTOPRAZOLE 40 MG/10 ML VIAL IVP STA (00:25)
[2024-04-18] MEDS: HYDROmorphone 1 MG/ML 1 ML SYRINGE IVP STA (00:25)
[2024-04-18 01:31] VITALS: RESP 18
[2024-04-18 04:51] VITALS: TEMP 98.5
[2024-04-18 05:16] LABS: Basophils % (A) 0 %; Eosinophils % (A) 1 %; HCT 31.5 % (34.0-46.0); Lymphocytes # (A) 1.6 k/uL (1.0-4.8); Lymphocytes % (A) 42 %; MCH 30.6 pg (25.0-35.0); MCHC 33.1 g/dL (31.0-37.0); MCV 92.3 fL (80.0-100.0); Mean Platelet Volume 7.1; Monocytes # (A) 0.2 k/uL (0-1.0); Monocytes % (A) 6 %; Neutrophils # (A) 1.8 k/uL (1.3-7.7); Neutrophils % (A) 49 %; Platelet Count 174 k/uL (150-450); RBC 3.41 m/uL (3.80-5.40); RDW 13.6 % (11.5-15.5); WBC 3.8 k/uL (3.8-10.6)
[2024-04-18 05:21] LABS: HGB 10.4 gm/dL (11.4-16.0)
[2024-04-18] MEDS: KETOROLAC 15 MG/ML 1 ML VIAL IVP STA (06:07)
[2024-04-18] MEDS: HYDROmorphone 0.5 MG/0.5 ML SYRINGE IVP STA (06:07)
[2024-04-18 06:11] VITALS: BP 112/74; PULSE 85
== END 2024-04-18 06:20 | disposition home or self-care (01) ==
LOC: EC 19:41
CPT/HCPCS: 36415; 36430; 74177; 80053; 81003; 82272; 83605; 83690; 85025; 85610; 85730; 86850; 86900; 86901; 86920; 96361; 96374; 96375; 96376; 99284

== ENCOUNTER 2024-04-19 21:46 | Emergency (ER) | payer OTHER ==
[2024-04-19 21:50] VITALS: RESP 18; TEMP 98.2
--- NOTE | 2024-04-19 22:32 | ED ---
General Adult HPI - General Chief complaint: Abdominal Pain Stated complaint: Abdominal Pain Source: patient Mode of arrival: ambulatory Limitations: no limitations - History of Present Illness Initial comments: Tricia is a 33yo F who presents to the ER via private vehicle for evaluation of worsening abdominal pain. Suffers from chronic abdominal pain this is her fifth visit in 2 weeks, she has had 2 CT scans without acute findings. Patient states that despite this she has continued pain in her left lower quadrant. No Fevers or chills. Patient reports she feels nauseated and she has been vomiting today. She has had colitis in the past but none on imaging this week. She has endometriosis and had a hysterectomy with bilateral salpingo-oophorectomy for treatment. She was warned that she could have potential recurrence of her endometriosis and she has not been following with gynecology recently. - Related Data Home Medications Medication Instructions Recorded Confirmed Omeprazole 40 mg PO HS 03/16/24 04/03/24 Ondansetron Odt [Zofran Odt] 4 mg PO Q6HR PRN 03/16/24 04/03/24 Orphenadrine Citrate [Orphenadrine 100 mg PO BID PRN 04/02/24 04/03/24 Citrate ER] Previous Rx's Medication Instructions Recorded Hyoscyamine Sulfate [Levsin] 0.125 mg PO Q6HR PRN #15 tab 04/12/24 Allergies Allergy/AdvReac Type Severity Reaction Status Date / Time sulfamethoxazole Allergy Severe Anaphylaxis Verified 04/19/24 21:49 [From Bactrim] trimethoprim [From Bactrim] Allergy Severe Anaphylaxis Verified 04/19/24 21:49 adhesive tape Allergy Rash/Hives Verified 04/19/24 21:49 aloe vera Allergy Rash/Hives Verified 04/19/24 21:49 amoxicillin [From Augmentin] Allergy Itching Verified 04/19/24 21:49 azithromycin Allergy Rash/Hives Verified 04/19/24 21:49 cephalexin Allergy Rash/Hives Verified 04/19/24 21:49 clavulanic acid Allergy Itching Verified 04/19/24 21:49 [From Augmentin] metronidazole [From Flagyl] Allergy Rash/Hives Verified 04/19/24 21:49 Penicillins Allergy Rash/Hives Verified 04/19/24 21:49 alprazolam [From Xanax] AdvReac MAKES Verified 04/19/24 21:49 PARANOID dicyclomine [From Bentyl] AdvReac constipatio Verified 04/19/24 21:49 n Review of Systems ROS Statement: Those systems with pertinent positive or pertinent negative responses have been documented in the HPI. ROS Other: All systems not noted in ROS Statement are negative. Past Medical History Past Medical History: Blood Disorder, GERD/Reflux Additional Past Medical History / Comment(s): Endometriosis, polycystic ovarian syndrome. IRON DEFICIENCY ANEMIA. Stomach Ulcer. Hx ovarian cyst. History of Any Multi-Drug Resistant Organisms: None Reported Past Surgical History: Ablation, Appendectomy, Section, Cholecystectomy, Hernia Repair, Hysterectomy, Tubal Ligation, Uterine Ablation Additional Past Surgical History / Comment(s): Laparoscopy X2, Section X3, right ovary and right tube removed, then total hysterectomy including left ovary and left fallopian tube, cyst removed from chest, ADHESION REMOVAL FROM PAST CSECTION, vaginal/pelvic biopsy. Scar tissure removal abdomen L upper lower Past Anesthesia/Blood Transfusion Reactions: No Reported Reaction Past Psychological History: Anxiety, Depression Smoking Status: Never smoker Past Alcohol Use History: Occasional Past Drug Use History: None Reported - Past Family History Mother Family Medical History: Deep Vein Thrombosis (DVT), Hyperlipidemia Additional Family Medical History / Comment(s): Depression and anxiety. DVT to arm after surgery. General Exam - General Exam Comments Initial Comments: Physical Exam GENERAL: Patient is well-developed and well-nourished. Patient is nontoxic and well-hydrated HENT: Normocephalic, Atraumatic. EYES: PERRL, EOMI PULMONARY: Unlabored respirations. CARDIOVASCULAR: RRR Warm and well perfused extremities ABDOMEN: Non-distended Tenderness palpation of the left lower quadrant SKIN: No rashes or bruising : Deferred NEUROLOGIC: Alert and oriented MUSCULOSKELETAL: Moving all extremities with no apparent injury PSYCHIATRIC: No SI/HI Limitations: no limitations Course Vital Signs 04/19/24 21:47 Temperature 98.2 F Pulse Rate 114 H Respiratory 18 Rate Blood Pressure 142/100 O2 Sat by Pulse 99 Oximetry Medical Decision Making - Medical Decision Making Was pt. sent in by a medical professional or institution (, PA, ASSISTANT PROFESSOR OF CRIMINAL JUSTICE, urgent care, hospital, or usp...) When possible be specific @ -No Did you speak to anyone other than the patient for history (EMS, parent, family, police, friend...)? What history was obtained from this source @ -No Did you review nursing and triage notes (agree or disagree)? Why? @ -I reviewed and agree with nursing and triage notes Were old charts reviewed (outside hosp., previous admission, EMS record, old EKG, old radiological studies, urgent care reports/EKG's, usp records)? Report findings @ -Previous visits were reviewed Differential Diagnosis (chest pain, altered mental status, abdominal pain women, abdominal pain men, vaginal bleeding, weakness, fever, dyspnea, syncope, headache, dizziness, GI bleed, back pain, seizure, CVA, palpatations, mental health)? @ -Differential abdominal pain women EKG interpreted by me (3pts min.). @ -As above X-rays interpreted by me (1pt min.). @ -Free air under the diaphragm no bowel obstruction CT interpreted by me (1pt min.). @ -None done U/S interpreted by me (1pt. min.). @ -None done What testing was considered but not performed or refused? (CT, X-rays, U/S, labs)? Why? @ -Was considered but declined due to the 2 normal CTs obtained this past week What meds were considered but not given or refused? Why? @ -None Did you discuss the management of the patient with other professionals (professionals i.e. , PA, ASSISTANT PROFESSOR OF CRIMINAL JUSTICE, lab, RT, psych nurse, social services counselor, mechanical service specialist, teacher, aoc plans intelligence officer, caser up)? Give summary @ -No Was smoking cessation discussed for >3mins.? @ -No Was critical care preformed (if so, how long)? @ -No Were there social determinants of health that impacted care today? How? (Homelessness, low income, unemployed, alcoholism, drug addiction, transportation, low edu. Level, literacy, decrease access to med. care, [facility]pc, rehab)? @ -No Was there de-escalation of care discussed even if they declined (Discuss DNR or withdrawal of care, Hospice)? DNR status @ -No What co-morbidities impacted this encounter? (DM, HTN, Smoking, COPD, CAD, Cancer, CVA, ARF, Chemo, Hep., AIDS, mental health diagnosis, sleep apnea, morbid obesity)? @ -Obesity Was patient admitted / discharged? Hospital course, mention meds given and rou te, prescriptions, significant lab abnormalities, going to OR and other pertinent info. @ -Discharged Was seen and evaluated, history is obtained from the patient and review of medical record. Labs are obtained and are normal, patient has no evidence of anemia. Leukocytosis. X-ray shows no perforation. No bowel obstruction. Results were discussed with patient who agrees this is likely her endometriosis she will contact her human resources communications manager out of [place] tomorrow. Undiagnosed new problem with uncertain prognosis? @ -No Drug Therapy requiring intensive monitoring for toxicity (Heparin, Nitro, Insulin, Cardizem)? @ -No Were any procedures done? @ -No Diagnosis/symptom? @ -Chronic abdominal pain, history of endometriosis Acute, or Chronic, or Acute on Chronic? @ -Chronic Uncomplicated (without systemic symptoms) or Complicated (systemic symptoms)? @ -Default Side effects of treatment? @ -No Exacerbation, Progression, or Severe Exacerbation? @ -No Poses a threat to life or bodily function? How? (Chest pain, [place], [place], pneumonia, PE, COPD, DKA, ARF, appy, cholecystitis, CVA, Diverticulitis, Homicidal, Suicidal, threat to staff... and all critical care pts) @ -Unlikely - Lab Data Result diagrams: 04/19/24 22:48 04/19/24 22:48 Lab Results 04/19/24 04/19/24 04/19/24 Range/Units 22:48 22:48 22:48 WBC 5.0 (3.8-10.6) k/uL RBC 4.02 (3.80-5.40) m/uL Hgb 12.0 (11.4-16.0) gm/dL Hct 35.9 (34.0-46.0) % MCV 89.2 (80.0-100.0) fL MCH 29.8 (25.0-35.0) pg MCHC 33.4 (31.0-37.0) g/dL RDW 13.9 (11.5-15.5) % Plt Count 212 (150-450) k/uL MPV 7.5 Neutrophils % 68 % Lymphocytes % 25 % Monocytes % 5 % Eosinophils % 1 % Basophils % 0 % Neutrophils # 3.4 (1.3-7.7) k/uL Lymphocytes # 1.3 (1.0-4.8) k/uL Monocytes # 0.3 (0-1.0) k/uL Eosinophils # 0.0 (0-0.7) k/uL Basophils # 0.0 (0-0.2) k/uL Sodium 141 (137-145) mmol/L Potassium 4.2 (3.5-5.1) mmol/L Chloride 106 (98-107) mmol/L Carbon Dioxide 28 (22-30) mmol/L Anion Gap 7 mmol/L BUN 12 (7-17) mg/dL Creatinine 0.76 (0.52-1.04) mg/dL Est GFR (CKD-EPI)AfAm >90 (>60 ml/min/1.73 sqM) Est GFR (CKD-EPI)NonAf >90 (>60 ml/min/1.73 sqM) Glucose 86 (74-99) mg/dL Plasma Lactic Acid Santhosh 0.9 (0.7-2.0) mmol/L Calcium 10.1 (8.4-10.2) mg/dL Total Bilirubin 0.8 (0.2-1.3) mg/dL AST 27 (14-36) U/L ALT 21 (4-34) U/L Alkaline Phosphatase 105 (38-126) U/L Total Protein 7.2 (6.3-8.2) g/dL Albumin 4.5 (3.5-5.0) g/dL Lipase 32 (23-300) U/L Disposition Clinical Impression: Chronic abdominal pain Disposition: HOME SELF-CARE Condition: Stable Instructions (If sedation given, give patient instructions): Abdominal Pain (ED) Is patient prescribed a controlled substance at d/c from ED?: No Referrals: None,Stated [Primary Care Provider] - 1-2 days
[2024-04-19] MEDS: SODIUM CHLORIDE 0.9% 500 ML 500 ML IV STA (22:44)
[2024-04-19] MEDS: ONDANSETRON 4 MG/2 ML VIAL IVP STA (22:44)
[2024-04-19] MEDS: MORPHINE SULFATE 4 MG/ML SYRINGE IVP STA (22:45)
[2024-04-19 23:43] LABS: Basophils % (A) 0 %; Eosinophils % (A) 1 %; HCT 35.9 % (34.0-46.0); Lymphocytes # (A) 1.3 k/uL (1.0-4.8); Lymphocytes % (A) 25 %; MCH 29.8 pg (25.0-35.0); MCHC 33.4 g/dL (31.0-37.0); MCV 89.2 fL (80.0-100.0); Mean Platelet Volume 7.5; Monocytes # (A) 0.3 k/uL (0-1.0); Monocytes % (A) 5 %; Neutrophils # (A) 3.4 k/uL (1.3-7.7); Neutrophils % (A) 68 %; Platelet Count 212 k/uL (150-450); RBC 4.02 m/uL (3.80-5.40); RDW 13.9 % (11.5-15.5)
[2024-04-19] MEDS: KETOROLAC 15 MG/ML 1 ML VIAL IVP STA (23:56)
[2024-04-20 00:03] LABS: ALT 21 U/L (4-34); AST 27 U/L (14-36); African American GFR (CKD) >90 (>60 ml/min/1.73 sqM); Albumin 4.5 g/dL (3.5-5.0); Alkaline Phosphatase 105 U/L (38-126); Anion Gap 7 mmol/L; Blood Urea Nitrogen 12 mg/dL (7-17); Calcium 10.1 mg/dL (8.4-10.2); Carbon Dioxide 28 mmol/L (22-30); Chloride 106 mmol/L (98-107); Glucose 86 mg/dL (74-99); Lipase 32 U/L (23-300); Non-African American GFR(CKD) >90 (>60 ml/min/1.73 sqM); Potassium 4.2 mmol/L (3.5-5.1); Sodium 141 mmol/L (137-145); Total Bilirubin 0.8 mg/dL (0.2-1.3); Total Protein 7.2 g/dL (6.3-8.2)
--- NOTE | 2024-04-20 00:30 | XR ---
EXAM: XR Abdomen, 1 View CLINICAL HISTORY: ITS.REASON XR Reason: abdominal pain TECHNIQUE: Frontal supine view of the abdomen/pelvis. COMPARISON: No relevant prior studies available. FINDINGS: Gastrointestinal tract: Unremarkable. No dilation. Organs: Cholecystectomy clips. Bones/joints: Unremarkable. No acute fracture. IMPRESSION: Nonobstructed bowel gas pattern.
[2024-04-20] MEDS: ACET/COD 300 MG/30 MG STARTER PACK 6 TAB BTL PO STA (01:09)
[2024-04-20 01:10] VITALS: BP 120/77; PULSE 84
[2024-04-20 03:23] LABS: Appearance,Urine Clear (Clear); Bilirubin,Urine Negative (Negative); Blood,Urine Negative (Negative); Color,Urine Colorless; Glucose,Urine (UA) Negative (Negative); Ketones,Urine Negative (Negative); Leukocyte Esterase,Urine Negative (Negative); Nitrite,Urine Negative (Negative); PH, Urine 7.5 (5.0-8.0); Protein,Urine Negative (Negative); Specific Gravity,Urine 1.007 (1.001-1.035); Urobilinogen,Urine <2.0 mg/dL (<2.0)
== END 2024-04-20 01:21 | disposition home or self-care (01) ==
LOC: EC 21:46
CPT/HCPCS: 36415; 74018; 80053; 81003; 83605; 83690; 85025; 96361; 96374; 96375; 99284

== ENCOUNTER 2024-04-22 16:54 | Emergency (ER) | payer OTHER ==
[2024-04-22 17:01] VITALS: RESP 18
--- NOTE | 2024-04-22 17:16 | ED ---
Abdominal Pain HPI - General Source: patient, RN notes reviewed Mode of arrival: ambulatory Limitations: no limitations <Lesley Fagan - Last Filed: 04/22/24 17:15> <Eben Gallo - Last Filed: 04/23/24 02:22> - General Chief Complaint: Abdominal Pain Stated Complaint: abd pain Time Seen by Provider: 04/22/24 17:15 - History of Present Illness Initial Comments: Quick note: 33-year-old female presented to ER with a chief complaint of abdominal pain. Patient reports around 2 PM she had an episode of emesis. She also reports a "blew up" sensation in her lower abdomen. States pain has been persistent since. No fevers. (Lesley Fagan) 33-year-old female presenting with chief complaint of abdominal pain. History of chronic abdominal pain. Patient is well-known to our ER. Patient has had numerous CT scans showing no acute process as of recent. She endorses left lower quadrant pain. She has history of hysterectomy and oophorectomy as well as appendectomy and cholecystectomy. No dysuria or hematuria. No hematochezia or melena. No fevers or chills. No vomiting. (Eben Gallo) - Related Data Home Medications Medication Instructions Recorded Confirmed Omeprazole 40 mg PO HS 03/16/24 04/03/24 Ondansetron Odt [Zofran Odt] 4 mg PO Q6HR PRN 03/16/24 04/03/24 Orphenadrine Citrate [Orphenadrine 100 mg PO BID PRN 04/02/24 04/03/24 Citrate ER] Previous Rx's Medication Instructions Recorded Hyoscyamine Sulfate [Levsin] 0.125 mg PO Q6HR PRN #15 tab 04/12/24 Allergies Allergy/AdvReac Type Severity Reaction Status Date / Time sulfamethoxazole Allergy Severe Anaphylaxis Verified 04/22/24 17:01 [From Bactrim] trimethoprim [From Bactrim] Allergy Severe Anaphylaxis Verified 04/22/24 17:01 adhesive tape Allergy Rash/Hives Verified 04/22/24 17:01 aloe vera Allergy Rash/Hives Verified 04/22/24 17:01 amoxicillin [From Augmentin] Allergy Itching Verified 04/22/24 17:01 azithromycin Allergy Rash/Hives Verified 04/22/24 17:01 cephalexin Allergy Rash/Hives Verified 04/22/24 17:01 clavulanic acid Allergy Itching Verified 04/22/24 17:01 [From Augmentin] metronidazole [From Flagyl] Allergy Rash/Hives Verified 04/22/24 17:01 Penicillins Allergy Rash/Hives Verified 04/22/24 17:01 alprazolam [From Xanax] AdvReac MAKES Verified 04/22/24 17:01 PARANOID dicyclomine [From Bentyl] AdvReac constipatio Verified 04/22/24 17:01 n Review of Systems ROS Other: All systems not noted in ROS Statement are negative. <Lesley Fagan - Last Filed: 04/22/24 17:15> ROS Other: All systems not noted in ROS Statement are negative. <Eben Gallo - Last Filed: 04/23/24 02:22> ROS Statement: Those systems with pertinent positive or pertinent negative responses have been documented in the HPI. Past Medical History Past Medical History: Blood Disorder, GERD/Reflux Additional Past Medical History / Comment(s): Endometriosis, polycystic ovarian syndrome. IRON DEFICIENCY ANEMIA. Stomach Ulcer. Hx ovarian cyst. History of Any Multi-Drug Resistant Organisms: None Reported Past Surgical History: Ablation, Appendectomy, Section, Cholecystectomy, Hernia Repair, Hysterectomy, Tubal Ligation, Uterine Ablation Additional Past Surgical History / Comment(s): Laparoscopy X2, Section X3, right ovary and right tube removed, then total hysterectomy including left ovary and left fallopian tube, cyst removed from chest, ADHESION REMOVAL FROM PAST CSECTION, vaginal/pelvic biopsy. Scar tissure removal abdomen L upper lower Past Anesthesia/Blood Transfusion Reactions: No Reported Reaction Past Psychological History: Anxiety, Depression Smoking Status: Never smoker Past Alcohol Use History: Occasional Past Drug Use History: None Reported - Past Family History Mother Family Medical History: Deep Vein Thrombosis (DVT), Hyperlipidemia Additional Family Medical History / Comment(s): Depression and anxiety. DVT to arm after surgery. <Lesley Fagan - Last Filed: 04/22/24 17:15> General Exam Limitations: no limitations <Lesley Fagan - Last Filed: 04/22/24 17:15> Limitations: no limitations General appearance: alert, in no apparent distress Head exam: Present: atraumatic, normocephalic, normal inspection Eye exam: Present: normal appearance, PERRL, EOMI. Absent: scleral icterus, conjunctival injection, periorbital swelling Neck exam: Present: normal inspection. Absent: meningismus Respiratory exam: Present: normal lung sounds bilaterally. Absent: respiratory distress, wheezes, rales, rhonchi, stridor Cardiovascular Exam: Present: regular rate, normal rhythm, normal heart sounds. Absent: systolic murmur, diastolic murmur, rubs, gallop, clicks GI/Abdominal exam: Present: soft, tenderness. Absent: distended, guarding, re bound, rigid Neurological exam: Present: alert, oriented X3 Psychiatric exam: Present: normal affect, normal mood Skin exam: Present: warm, dry, intact, normal color <Eben Gallo - Last Filed: 04/23/24 02:22> - General Exam Comments Initial Comments: Visual Physical Exam Vital signs reviewed General: Well-appearing, nontoxic, no acute distress. Head: Normocephalic, atraumatic Eyes: PERRLA, EOMI ENT: Airway patent Chest: Nonlabored breathing Skin: No visual rash, normal skin tone Neuro: Alert and oriented 3 Musculoskeletal: No gross abnormalities (Lesley Fagan) Course Vital Signs 04/22/24 04/23/24 16:58 01:44 Temperature 97.8 F 97.9 F Pulse Rate 114 H 71 Respiratory 18 18 Rate Blood Pressure 141/94 123/86 O2 Sat by Pulse 100 100 Oximetry Medical Decision Making <Lesley Fagan - Last Filed: 04/22/24 17:15> - Lab Data Result diagrams: 04/22/24 20:18 04/22/24 20:18 <Eben Gallo - Last Filed: 04/23/24 02:22> - Medical Decision Making I performed the quick note portion of this chart. Electronically signed by Lesley Fagan PA-C (Lesley Fagan) Was pt. sent in by a medical professional or institution (ANALI Leroy, SENIOR COMMUNICATIONS SPECIALIST, urgent care, hospital, or residential...) When possible be specific @ -No Did you speak to anyone other than the patient for history (EMS, parent, family, police, friend...)? What history was obtained from this source @ -No Did you review nursing and triage notes (agree or disagree)? Why? @ -I reviewed and agree with nursing and triage notes Were old charts reviewed (outside hosp., previous admission, EMS record, old EKG, old radiological studies, urgent care reports/EKG's, residential records)? Report findings @ -No old charts were reviewed Differential Diagnosis (chest pain, altered mental status, abdominal pain women, abdominal pain men, vaginal bleeding, weakness, fever, dyspnea, syncope, headache, dizziness, GI bleed, back pain, seizure, CVA, palpatations, mental health, musculoskeletal)? @ -MDM Differential Abdominal Pain Women: Appendicitis, Cholecystitis, diverticulosis, ischemic bowel, pancreatitis, hepatitis, UTI, gastroenteritis, AAA, incarcerated hernia, bowel obstruction, constipation, inflammatory bowel, hepatitis, peptic ulcer disease, splenic infarction, perforated viscus, vulvitis, ovarian torsion, PID, kidney stone, gabriela centa abruption... This is not meant to be an all-inclusive list EKG interpreted by me (3pts min.). @ -As above X-rays interpreted by me (1pt min.). @ -None done CT interpreted by me (1pt min.). @ -None done U/S interpreted by me (1pt. min.). @ -None done What testing was considered but not performed or refused? (CT, X-rays, U/S, labs)? Why? @ -None What meds were considered but not given or refused? Why? @ -None Did you discuss the management of the patient with other professionals (prof shadys i.e. , PA, SENIOR COMMUNICATIONS SPECIALIST, lab, RT, psych nurse, social media intern, automobile travel club counselor, teacher, collection officer, pillowcase cutter)? Give summary @ -No Was smoking cessation discussed for >3mins.? @ -No Was critical care preformed (if so, how long)? @ -No Were there social determinants of health that impacted care today? How? (Homelessness, low income, unemployed, alcoholism, drug addiction, transportation, low edu. Level, literacy, decrease access to med. care, [facility], rehab)? @ -No Was there de-escalation of care discussed even if they declined (Discuss DNR or withdrawal of care, Hospice)? DNR status @ -No What co-morbidities impacted this encounter? (DM, HTN, Smoking, COPD, CAD, Cancer, CVA, ARF, Chemo, Hep., AIDS, mental health diagnosis, sleep apnea, morbid obesity)? @ -None Was patient admitted / discharged? Hospital course, mention meds given and route, prescriptions, significant lab abnormalities, going to OR and other pertinent info. @ -33-year-old female presenting with chief complaint of abdominal pain. History of chronic abdominal pain. Glucose 102 otherwise labs are grossly unremarkable. Patient is resting showing no acute signs of distress. Educated on today's findings and discharged home. Follow-up with PCP. Report back to ER with any new or worsening symptoms. Discussed return parameters and answered all questions. Patient conveyed verbal understanding and agreed to the plan. I discussed this case in detail with my attending Dr. Mir Undiagnosed new problem with uncertain prognosis? @ -No Drug Therapy requiring intensive monitoring for toxicity (Heparin, Nitro, Insulin, Cardizem)? @ -No Were any procedures done? @ -No Diagnosis/symptom? @ -Abdominal pain Acute, or Chronic, or Acute on Chronic? @ -Acute on chronic Uncomplicated (without systemic symptoms) or Complicated (systemic symptoms)? @ -Uncomplicated Side effects of treatment? @ -No Exacerbation, Progression, or Severe Exacerbation? @ -No Poses a threat to life or bodily function? How? (Chest pain, [place], [place], pneumonia, PE, COPD, DKA, ARF, appy, cholecystitis, CVA, Diverticulitis, Homicidal, Suicidal, threat to staff... and all critical care pts) @ -Unlikely (Eben Gallo) - Lab Data Lab Results 04/22/24 04/22/24 04/22/24 Range/Units 20:18 20:18 20:18 WBC 5.0 (3.8-10.6) k/uL RBC 4.03 (3.80-5.40) m/uL Hgb 12.3 (11.4-16.0) gm/dL Hct 36.9 (34.0-46.0) % MCV 91.6 (80.0-100.0) fL MCH 30.5 (25.0-35.0) pg MCHC 33.3 (31.0-37.0) g/dL RDW 13.6 (11.5-15.5) % Plt Count 217 (150-450) k/uL MPV 7.3 Neutrophils % 66 % Lymphocytes % 26 % Monocytes % 5 % Eosinophils % 1 % Basophils % 0 % Neutrophils # 3.3 (1.3-7.7) k/uL Lymphocytes # 1.3 (1.0-4.8) k/uL Monocytes # 0.2 (0-1.0) k/uL Eosinophils # 0.0 (0-0.7) k/uL Basophils # 0.0 (0-0.2) k/uL Sodium 139 (137-145) mmol/L Potassium 4.3 (3.5-5.1) mmol/L Chloride 104 (98-107) mmol/L Carbon Dioxide 28 (22-30) mmol/L Anion Gap 7 mmol/L BUN 12 (7-17) mg/dL Creatinine 0.84 (0.52-1.04) mg/dL Est GFR (CKD-EPI)AfAm >90 (>60 ml/min/1.73 sqM) Est GFR (CKD-EPI)NonAf >90 (>60 ml/min/1.73 sqM) Glucose 102 H (74-99) mg/dL Plasma Lactic Acid Santhosh 0.7 (0.7-2.0) mmol/L Calcium 10.2 (8.4-10.2) mg/dL Total Bilirubin 0.7 (0.2-1.3) mg/dL AST 30 (14-36) U/L ALT 21 (4-34) U/L Alkaline Phosphatase 107 (38-126) U/L Total Protein 7.5 (6.3-8.2) g/dL Albumin 4.5 (3.5-5.0) g/dL Amylase 52 (30-110) U/L Lipase 26 (23-300) U/L Urine Color Urine Appearance (Clear) Urine pH (5.0-8.0) Ur Specific Philipp (1.001-1.035) Urine Protein (Negative) Urine Glucose (UA) (Negative) Urine Ketones (Negative) Urine Blood (Negative) Urine Nitrite (Negative) Urine Bilirubin (Negative) Urine Urobilinogen (<2.0) mg/dL Ur Leukocyte Esterase (Negative) 04/23/24 Range/Units 00:15 WBC (3.8-10.6) k/uL RBC (3.80-5.40) m/uL Hgb (11.4-16.0) gm/dL Hct (34.0-46.0) % MCV (80.0-100.0) fL MCH (25.0-35.0) pg MCHC (31.0-37.0) g/dL RDW (11.5-15.5) % Plt Count (150-450) k/uL MPV Neutrophils % % Lymphocytes % % Monocytes % % Eosinophils % % Basophils % % Neutrophils # (1.3-7.7) k/uL Lymphocytes # (1.0-4.8) k/uL Monocytes # (0-1.0) k/uL Eosinophils # (0-0.7) k/uL Basophils # (0-0.2) k/uL Sodium (137-145) mmol/L Potassium (3.5-5.1) mmol/L Chloride (98-107) mmol/L Carbon Dioxide (22-30) mmol/L Anion Gap mmol/L BUN (7-17) mg/dL Creatinine (0.52-1.04) mg/dL Est GFR (CKD-EPI)AfAm (>60 ml/min/1.73 sqM) Est GFR (CKD-EPI)NonAf (>60 ml/min/1.73 sqM) Glucose (74-99) mg/dL Plasma Lactic Acid Santhosh (0.7-2.0) mmol/L Calcium (8.4-10.2) mg/dL Total Bilirubin (0.2-1.3) mg/dL AST (14-36) U/L ALT (4-34) U/L Alkaline Phosphatase (38-126) U/L Total Protein (6.3-8.2) g/dL Albumin (3.5-5.0) g/dL Amylase (30-110) U/L Lipase (23-300) U/L Urine Color Colorless Urine Appearance Clear (Clear) Urine pH 6.0 (5.0-8.0) Ur Specific Philipp 1.015 (1.001-1.035) Urine Protein Negative (Negative) Urine Glucose (UA) Negative (Negative) Urine Ketones Negative (Negative) Urine Blood Negative (Negative) Urine Nitrite Negative (Negative) Urine Bilirubin Negative (Negative) Urine Urobilinogen <2.0 (<2.0) mg/dL Ur Leukocyte Esterase Negative (Negative) Disposition <Stariha,Lesley - Last Filed: 04/22/24 17:15> Is patient prescribed a controlled substance at d/c from ED?: No Time of Disposition: 01:33 <Eben Gallo - Last Filed: 04/23/24 02:22> Clinical Impression: Abdominal pain Disposition: HOME SELF-CARE Condition: Good Instructions (If sedation given, give patient instructions): Abdominal Pain (ED) Additional Instructions: Follow up with PCP. Report back to ER with any new or worsening symptoms. Referrals: None,Stated [Primary Care Provider] - 1-2 days
[2024-04-22 20:26] LABS: Basophils % (A) 0 %; Eosinophils % (A) 1 %; HCT 36.9 % (34.0-46.0); HGB 12.3 gm/dL (11.4-16.0); Lymphocytes # (A) 1.3 k/uL (1.0-4.8); Lymphocytes % (A) 26 %; MCH 30.5 pg (25.0-35.0); MCHC 33.3 g/dL (31.0-37.0); MCV 91.6 fL (80.0-100.0); Mean Platelet Volume 7.3; Monocytes # (A) 0.2 k/uL (0-1.0); Monocytes % (A) 5 %; Neutrophils # (A) 3.3 k/uL (1.3-7.7); Neutrophils % (A) 66 %; Platelet Count 217 k/uL (150-450); RBC 4.03 m/uL (3.80-5.40); RDW 13.6 % (11.5-15.5)
[2024-04-22 20:43] LABS: ALT 21 U/L (4-34); AST 30 U/L (14-36); African American GFR (CKD) >90 (>60 ml/min/1.73 sqM); Albumin 4.5 g/dL (3.5-5.0); Alkaline Phosphatase 107 U/L (38-126); Amylase 52 U/L (30-110); Anion Gap 7 mmol/L; Blood Urea Nitrogen 12 mg/dL (7-17); Calcium 10.2 mg/dL (8.4-10.2); Carbon Dioxide 28 mmol/L (22-30); Chloride 104 mmol/L (98-107); Glucose 102 mg/dL (74-99); Lipase 26 U/L (23-300); Non-African American GFR(CKD) >90 (>60 ml/min/1.73 sqM); Potassium 4.3 mmol/L (3.5-5.1); Sodium 139 mmol/L (137-145); Total Bilirubin 0.7 mg/dL (0.2-1.3); Total Protein 7.5 g/dL (6.3-8.2)
[2024-04-22] MEDS: SODIUM CHLORIDE 0.9% 1,000 ML IV ONE (22:18)
[2024-04-22] MEDS: ONDANSETRON 4 MG/2 ML VIAL IVP STA (22:20)
[2024-04-22] MEDS: MORPHINE SULFATE 4 MG/ML SYRINGE IVP STA (22:20)
[2024-04-23] MEDS: KETOROLAC 15 MG/ML 1 ML VIAL IVP STA (00:33)
[2024-04-23] MEDS: METOCLOPRAMIDE 5 MG/ML 2 ML VIAL IVP STA (00:33)
[2024-04-23 01:05] LABS: Appearance,Urine Clear (Clear); Bilirubin,Urine Negative (Negative); Blood,Urine Negative (Negative); Color,Urine Colorless; Glucose,Urine (UA) Negative (Negative); Ketones,Urine Negative (Negative); Leukocyte Esterase,Urine Negative (Negative); Nitrite,Urine Negative (Negative); Protein,Urine Negative (Negative); Specific Gravity,Urine 1.015 (1.001-1.035); Urobilinogen,Urine <2.0 mg/dL (<2.0)
[2024-04-23 01:46] VITALS: BP 123/86; PULSE 71; TEMP 97.9
== END 2024-04-23 01:45 | disposition home or self-care (01) ==
LOC: EC 16:54
DX: R10.32 Left lower quadrant pain (principal); Z88.0 Allergy status to penicillin; Z88.1 Allergy status to other antibiotic agents; Z88.2 Allergy status to sulfonamides; Z88.8 Allergy status to other drugs, medicaments and biological substances; Z90.49 Acquired absence of other specified parts of digestive tract
CPT/HCPCS: 80053; 82150; 83605; 83690; 85025; 99284; 96374; 96375 ×3; 96361; J2270; J2405; 36415; 81003

== ENCOUNTER 2024-04-26 18:44 | Emergency (ER) | payer OTHER ==
[2024-04-26 18:57] VITALS: BP 125/83; PULSE 107; TEMP 97.6
--- NOTE | 2024-04-26 19:30 | ED ---
General Adult HPI - General Source: patient Mode of arrival: ambulatory Limitations: no limitations <Eben Gallo - Last Filed: 04/26/24 19:29> <Roshni Mora - Last Filed: 04/26/24 21:53> - General Chief complaint: Upper Respiratory Infection Stated complaint: Diarrhea Time Seen by Provider: 04/26/24 19:30 - History of Present Illness Initial comments: 33-year-old female presenting with chief complaint of cough congestion and diarrhea. Ongoing for the last day (Eben Gallo) This is a 33-year-old female who presents emergency department chief plaint of cough, congestion, and diarrhea that has been going for the past day. Patient is well-known to our emergency department and presents with similar symptoms of diarrhea very commonly she does have a history of IBS. Patient states that her and her son have been experiencing upper respiratory infection symptoms that she is concerned that she has been having more diarrhea than usual. She endorses abdominal pain however this is a chronic ongoing issue for her. Denies fevers, chills, nausea, vomiting. (Roshni Mora) - Related Data Home Medications Medication Instructions Recorded Confirmed Omeprazole 40 mg PO HS 03/16/24 04/03/24 Ondansetron Odt [Zofran Odt] 4 mg PO Q6HR PRN 03/16/24 04/03/24 Orphenadrine Citrate [Orphenadrine 100 mg PO BID PRN 04/02/24 04/03/24 Citrate ER] Previous Rx's Medication Instructions Recorded Hyoscyamine Sulfate [Levsin] 0.125 mg PO Q6HR PRN #15 tab 04/12/24 Allergies Allergy/AdvReac Type Severity Reaction Status Date / Time sulfamethoxazole Allergy Severe Anaphylaxis Verified 04/26/24 18:57 [From Bactrim] trimethoprim [From Bactrim] Allergy Severe Anaphylaxis Verified 04/26/24 18:57 adhesive tape Allergy Rash/Hives Verified 04/26/24 18:57 aloe vera Allergy Rash/Hives Verified 04/26/24 18:57 amoxicillin [From Augmentin] Allergy Itching Verified 04/26/24 18:57 azithromycin Allergy Rash/Hives Verified 04/26/24 18:57 cephalexin Allergy Rash/Hives Verified 04/26/24 18:57 clavulanic acid Allergy Itching Verified 04/26/24 18:57 [From Augmentin] metronidazole [From Flagyl] Allergy Rash/Hives Verified 04/26/24 18:57 Penicillins Allergy Rash/Hives Verified 04/26/24 18:57 alprazolam [From Xanax] AdvReac MAKES Verified 04/26/24 18:57 PARANOID dicyclomine [From Bentyl] AdvReac constipatio Verified 04/26/24 18:57 n Review of Systems ROS Other: All systems not noted in ROS Statement are negative. <Eben Gallo - Last Filed: 04/26/24 19:29> ROS Other: All systems not noted in ROS Statement are negative. <Roshni Mora - Last Filed: 04/26/24 21:53> ROS Statement: Those systems with pertinent positive or pertinent negative responses have been documented in the HPI. Past Medical History Past Medical History: Blood Disorder, GERD/Reflux Additional Past Medical History / Comment(s): Endometriosis, polycystic ovarian syndrome. IRON DEFICIENCY ANEMIA. Stomach Ulcer. Hx ovarian cyst. History of Any Multi-Drug Resistant Organisms: None Reported Past Surgical History: Ablation, Appendectomy, Section, Cholecystectomy, Hernia Repair, Hysterectomy, Tubal Ligation, Uterine Ablation Additional Past Surgical History / Comment(s): Laparoscopy X2, Section X3, right ovary and right tube removed, then total hysterectomy including left ovary and left fallopian tube, cyst removed from chest, ADHESION REMOVAL FROM PAST CSECTION, vaginal/pelvic biopsy. Scar tissure removal abdomen L upper lower Past Anesthesia/Blood Transfusion Reactions: No Reported Reaction Past Psychological History: Anxiety, Depression Smoking Status: Never smoker Past Alcohol Use History: Occasional Past Drug Use History: None Reported - Past Family History Mother Family Medical History: Deep Vein Thrombosis (DVT), Hyperlipidemia Additional Family Medical History / Comment(s): Depression and anxiety. DVT to arm after surgery. <Eben Gallo - Last Filed: 04/26/24 19:29> General Exam Limitations: no limitations <Eben Gallo - Last Filed: 04/26/24 19:29> General appearance: alert, in no apparent distress Eye exam: Present: normal appearance, PERRL, EOMI. Absent: scleral icterus, co njunctival injection, periorbital swelling ENT exam: Present: normal exam, mucous membranes moist Neck exam: Present: normal inspection. Absent: tenderness, meningismus, lymphadenopathy Respiratory exam: Present: normal lung sounds bilaterally. Absent: respiratory distress, wheezes, rales, rhonchi, stridor Cardiovascular Exam: Present: regular rate, normal rhythm, normal heart sounds. Absent: systolic murmur, diastolic murmur, rubs, gallop, clicks GI/Abdominal exam: Present: soft, normal bowel sounds. Absent: distended, tenderness, guarding, rebound, rigid Extremities exam: Present: normal inspection, full ROM, normal capillary refill. Absent: tenderness, pedal edema, joint swelling, calf tenderness Back exam: Present: normal inspection Skin exam: Present: warm, dry, intact, normal color. Absent: rash <Roshni Mora - Last Filed: 04/26/24 21:53> - General Exam Comments Initial Comments: Visual Physical Exam Vital signs reviewed General: Well-appearing, nontoxic, no acute distress. Head: Normocephalic, atraumatic Eyes: PERRLA, EOMI ENT: Airway patent Chest: Nonlabored breathing Skin: No visual rash, normal skin tone Neuro: Alert and oriented 3 Musculoskeletal: No gross abnormalities (Eben Gallo) Course Vital Signs 04/26/24 04/26/24 18:54 20:44 Temperature 97.6 F Pulse Rate 107 H Respiratory 20 16 Rate Blood Pressure 125/83 O2 Sat by Pulse 100 Oximetry Medical Decision Making <Eben Gallo - Last Filed: 04/26/24 19:29> <Roshni Mora - Last Filed: 04/26/24 21:53> - Medical Decision Making I performed the quick note portion of this visit, electronically signed Eben Gallo PA-C (Eben Gallo) Was pt. sent in by a medical professional or institution ([facility]oy, WAX POT TENDER, urgent care, hospital, or correction...) When possible be specific @ -No Did you speak to anyone other than the patient for history (EMS, parent, family, police, friend...)? What history was obtained from this source @ -No Did you review nursing and triage notes (agree or disagree)? Why? @ -I reviewed and agree with nursing and triage notes Were old charts reviewed (outside hosp., previous admission, EMS record, old EKG, old radiological studies, urgent care reports/EKG's, correction records)? Report findings @ -No old charts were reviewed Differential Diagnosis (chest pain, altered mental status, abdominal pain women, abdominal pain men, vaginal bleeding, weakness, fever, dyspnea, syncope, headache, dizziness, GI bleed, back pain, seizure, CVA, palpatations, mental health, musculoskeletal)? @ -COVID 19, RSV, influenza, pneumonia, acute bronchitis, URI, this list is not all inclusive EKG interpreted by me (3pts min.). @ -None X-rays interpreted by me (1pt min.). @ -None done CT interpreted by me (1pt min.). @ -None done U/S interpreted by me (1pt. min.). @ -None done What testing was considered but not performed or refused? (CT, X-rays, U/S, labs)? Why? @ -None What meds were considered but not given or refused? Why? @ -None Did you discuss the management of the patient with other professionals (professionals i.e. , PA, WAX POT TENDER, lab, RT, psych nurse, adoption social worker, director of grants, teacher, radiation officer, case consultant)? Give summary @ -No Was smoking cessation discussed for >3mins.? @ -No Was critical care preformed (if so, how long)? @ -No Were there social determinants of health that impacted care today? How? (Homelessness, low income, unemployed, alcoholism, drug addiction, transportation, low edu. Level, literacy, decrease access to med. care, nursing home, rehab)? @ -No Was there de-escalation of care discussed even if they declined (Discuss DNR or withdrawal of care, Hospice)? DNR status @ -No What co-morbidities impacted this encounter? (DM, HTN, Smoking, COPD, CAD, Cancer, CVA, ARF, Chemo, Hep., AIDS, mental health diagnosis, sleep apnea, morbid obesity)? @ -None Was patient admitted / discharged? Hospital course, mention meds given and route, prescriptions, significant lab abnormalities, going to OR and other pertinent info. @ -Discharge. 33-year-old female with diarrhea, congestion, cough. Patient was originally evaluated in the emergency department waiting room as a quick note where a viral swab was ordered. On my evaluation the patient she is resting comfortably no signs acute distress. Vitals are stable. Comprehensive examination no acute findings. Discussed with patient at bedside that symptoms are likely secondary to a viral infection as these can cause GI upset as well and worsening diarrhea. Patient's effort is negative. Recommend that she continue supportive treatment at home. Stable for discharge. Discussed with Dr. Araujo. Undiagnosed new problem with uncertain prognosis? @ -No Drug Therapy requiring intensive monitoring for toxicity (Heparin, Nitro, Insuli n, Cardizem)? @ -No Were any procedures done? @ -No Diagnosis/symptom? @ -diarrhea, viral URI Acute, or Chronic, or Acute on Chronic? @ -acute Uncomplicated (without systemic symptoms) or Complicated (systemic symptoms)? @ -Uncomplicated Side effects of treatment? @ -No Exacerbation, Progression, or Severe Exacerbation? @ -No Poses a threat to life or bodily function? How? (Chest pain, [place], [place], pneumonia, PE, COPD, DKA, ARF, appy, cholecystitis, CVA, Diverticulitis, Homicidal, Suicidal, threat to staff... and all critical care pts) @ -No (Roshni Mora) - Lab Data Lab Results 04/26/24 Range/Units 18:53 Influenza Type A (PCR) Not Detected (Not Detectd) Influenza Type B (PCR) Not Detected (Not Detectd) RSV (PCR) Not Detected (Not Detectd) SARS-CoV-2 (PCR) Not Detected (Not Detectd) Disposition <Eben Gallo - Last Filed: 04/26/24 19:29> Is patient prescribed a controlled substance at d/c from ED?: No Time of Disposition: 20:23 <Roshni Mora - Last Filed: 04/26/24 21:53> Clinical Impression: Viral syndrome Disposition: HOME SELF-CARE Condition: Good Instructions (If sedation given, give patient instructions): Upper Respiratory Infection (ED) Additional Instructions: Please return to the Emergency Department if symptoms worsen or any other concerns. Referrals: None,Stated [Primary Care Provider] - 1-2 days
[2024-04-26 20:45] VITALS: RESP 16
== END 2024-04-26 20:44 | disposition home or self-care (01) ==
LOC: EC 18:44
CPT/HCPCS: 87636; 99283

== ENCOUNTER 2024-04-29 20:47 | Emergency (ER) | payer OTHER ==
[2024-04-29 21:10] VITALS: TEMP 98.2
[2024-04-29] MEDS: KETOROLAC 15 MG/ML 1 ML VIAL IVP STA (22:09)
[2024-04-29] MEDS: SODIUM CHLORIDE 0.9% 1,000 ML IV ONE (22:10)
[2024-04-29] MEDS: ONDANSETRON 4 MG/2 ML VIAL IVP STA (22:10)
[2024-04-29 22:12] LABS: Basophils % (A) 0 %; Eosinophils # (A) 0.1 k/uL (0-0.7); Eosinophils % (A) 1 %; HCT 35.2 % (34.0-46.0); HGB 11.6 gm/dL (11.4-16.0); Lymphocytes # (A) 1.5 k/uL (1.0-4.8); Lymphocytes % (A) 30 %; MCH 30.3 pg (25.0-35.0); MCHC 32.9 g/dL (31.0-37.0); MCV 92.2 fL (80.0-100.0); Mean Platelet Volume 7.2; Monocytes # (A) 0.2 k/uL (0-1.0); Monocytes % (A) 5 %; Neutrophils # (A) 3.1 k/uL (1.3-7.7); Neutrophils % (A) 62 %; Platelet Count 220 k/uL (150-450); RBC 3.81 m/uL (3.80-5.40); RDW 13.5 % (11.5-15.5)
[2024-04-29 22:46] LABS: ALT 20 U/L (4-34); AST 27 U/L (14-36); African American GFR (CKD) >90 (>60 ml/min/1.73 sqM); Albumin 4.4 g/dL (3.5-5.0); Alkaline Phosphatase 107 U/L (38-126); Anion Gap 6 mmol/L; Blood Urea Nitrogen 13 mg/dL (7-17); Calcium 9.9 mg/dL (8.4-10.2); Carbon Dioxide 25 mmol/L (22-30); Chloride 110 mmol/L (98-107); Glucose 95 mg/dL (74-99); Non-African American GFR(CKD) >90 (>60 ml/min/1.73 sqM); Sodium 141 mmol/L (137-145); Total Bilirubin 0.6 mg/dL (0.2-1.3); Total Protein 6.9 g/dL (6.3-8.2)
--- NOTE | 2024-04-29 23:00 | ED ---
Nausea/Vomiting/Diarrhea HPI - General Chief complaint: Nausea/Vomiting/Diarrhea Stated complaint: Abd Pain, Nausea Time Seen by Provider: 04/29/24 21:25 Source: patient Mode of arrival: wheelchair Limitations: no limitations - History of Present Illness Initial comments: 33-year-old female with history of chronic abdominal pain presenting with chief complaint of abdominal pain. This is lower abdominal pain which patient believes to be a flareup of her IBS. Admits to nausea and diarrhea, no vomiting. Surgical history includes appendectomy, cholecystectomy, hysterectomy with bilateral salpingo-oophorectomy. Patient has been seen in our ER on multi ple occasions for similar symptoms. - Related Data Home Medications Medication Instructions Recorded Confirmed Omeprazole 40 mg PO HS 03/16/24 04/03/24 Ondansetron Odt [Zofran Odt] 4 mg PO Q6HR PRN 03/16/24 04/03/24 Orphenadrine Citrate [Orphenadrine 100 mg PO BID PRN 04/02/24 04/03/24 Citrate ER] Previous Rx's Medication Instructions Recorded Hyoscyamine Sulfate [Levsin] 0.125 mg PO Q6HR PRN #15 tab 04/12/24 Allergies Allergy/AdvReac Type Severity Reaction Status Date / Time sulfamethoxazole Allergy Severe Anaphylaxis Verified 04/29/24 21:07 [From Bactrim] trimethoprim [From Bactrim] Allergy Severe Anaphylaxis Verified 04/29/24 21:07 adhesive tape Allergy Rash/Hives Verified 04/29/24 21:07 aloe vera Allergy Rash/Hives Verified 04/29/24 21:07 amoxicillin [From Augmentin] Allergy Itching Verified 04/29/24 21:07 azithromycin Allergy Rash/Hives Verified 04/29/24 21:07 cephalexin Allergy Rash/Hives Verified 04/29/24 21:07 clavulanic acid Allergy Itching Verified 04/29/24 21:07 [From Augmentin] metronidazole [From Flagyl] Allergy Rash/Hives Verified 04/29/24 21:07 Penicillins Allergy Rash/Hives Verified 04/29/24 21:07 alprazolam [From Xanax] AdvReac MAKES Verified 04/29/24 21:07 PARANOID dicyclomine [From Bentyl] AdvReac constipatio Verified 04/29/24 21:07 n Review of Systems ROS Statement: Those systems with pertinent positive or pertinent negative responses have been documented in the HPI. ROS Other: All systems not noted in ROS Statement are negative. Past Medical History Past Medical History: Blood Disorder, GERD/Reflux Additional Past Medical History / Comment(s): Endometriosis, polycystic ovarian syndrome. IRON DEFICIENCY ANEMIA. Stomach Ulcer. Hx ovarian cyst. History of Any Multi-Drug Resistant Organisms: None Reported Past Surgical History: Ablation, Appendectomy, Section, Cholecystectomy , Hernia Repair, Hysterectomy, Tubal Ligation, Uterine Ablation Additional Past Surgical History / Comment(s): Laparoscopy X2, Section X3, right ovary and right tube removed, then total hysterectomy including left ovary and left fallopian tube, cyst removed from chest, ADHESION REMOVAL FROM PAST CSECTION, vaginal/pelvic biopsy. Scar tissure removal abdomen L upper lower Past Anesthesia/Blood Transfusion Reactions: No Reported Reaction Past Psychological History: Anxiety, Depression Smoking Status: Never smoker Past Alcohol Use History: Occasional Past Drug Use History: None Reported - Past Family History Mother Family Medical History: Deep Vein Thrombosis (DVT), Hyperlipidemia Additional Family Medical History / Comment(s): Depression and anxiety. DVT to arm after surgery. General Exam Limitations: no limitations General appearance: alert, in no apparent distress Head exam: Present: atraumatic, normocephalic, normal inspection Eye exam: Present: normal appearance, EOMI Neck exam: Present: normal inspection. Absent: meningismus Respiratory exam: Absent: respiratory distress GI/Abdominal exam: Present: soft, tenderness (Nonlocalized). Absent: distended, guarding, rebound, rigid Neurological exam: Present: alert, oriented X3 Psychiatric exam: Present: normal affect, normal mood Skin exam: Present: warm, dry Course Vital Signs 04/29/24 04/29/24 21:05 23:21 Temperature 98.2 F Pulse Rate 105 H 80 Respiratory 16 18 Rate Blood Pressure 116/75 122/84 O2 Sat by Pulse 100 100 Oximetry Medical Decision Making - Medical Decision Making Was pt. sent in by a medical professional or institution (, PA, ADJUSTMENT CLERK, urgent care, hospital, or [facility]...) When possible be specific @ -No Did you speak to anyone other than the patient for history (EMS, parent, family, police, friend...)? What history was obtained from this source @ -No Did you review nursing and triage notes (agree or disagree)? Why? @ -I reviewed and agree with nursing and triage notes Were old charts reviewed (outside hosp., previous admission, EMS record, old EKG, old radiological studies, urgent care reports/EKG's, [facility] records)? Report findings @ -Most recent visits reviewed Differential Diagnosis (chest pain, altered mental status, abdominal pain women, abdominal pain men, vaginal bleeding, weakness, fever, dyspnea, syncope, headache, dizziness, GI bleed, back pain, seizure, CVA, palpatations, mental health, musculoskeletal)? @ -MDM Differential Abdominal Pain Women: Appendicitis, Cholecystitis, diverticulosis, ischemic bowel, pancreatitis, hepatitis, UTI, gastroenteritis, AAA, incarcerated hernia, bowel obstruction, constipation, inflammatory bowel, hepatitis, peptic ulcer disease, splenic infarction, perforated viscus, vulvitis, ovarian torsion, PID, kidney stone, placenta abruption... This is not meant to be an all-inclusive list EKG interpreted by me (3pts min.). @ -As above X-rays interpreted by me (1pt min.). @ -None done CT interpreted by me (1pt min.). @ -None done U/S interpreted by me (1pt. min.). @ -None done What testing was considered but not performed or refused? (CT, X-rays, U/S, labs)? Why? @ -None What meds were considered but not given or refused? Why? @ -None Did you discuss the management of the patient with other professionals (professionals i.e. , PA, ADJUSTMENT CLERK, lab, RT, psych nurse, social studies teacher, rf manager, teacher, vice squad police officer, director case)? Give summary @ -No Was smoking cessation discussed for >3mins.? @ -No Was critical care preformed (if so, how long)? @ -No Were there social determinants of health that impacted care today? How? (Homelessness, low income, unemployed, alcoholism, drug addiction, transpor tation, low edu. Level, literacy, decrease access to med. care, group home, rehab)? @ -No Was there de-escalation of care discussed even if they declined (Discuss DNR or withdrawal of care, Hospice)? DNR status @ -No What co-morbidities impacted this encounter? (DM, HTN, Smoking, COPD, CAD, Cancer, CVA, ARF, Chemo, Hep., AIDS, mental health diagnosis, sleep apnea, morbid obesity)? @ -None Was patient admitted / discharged? Hospital course, mention meds given and route, prescriptions, significant lab abnormalities, going to OR and other pertinent info. @ -33-year-old female presenting with chief complaint of lower abdominal pain. History of chronic abdominal pain. History and physical examination are conducted. Nonlocalized abdominal pain. Lab work is essentially unremarkable. Patient educated on today's findings and discharged. Follow-up with PCP. Report back to ER with any new or worsening symptoms. Discussed return parameters and answered all questions. Patient conveyed verbal understanding and agreed to the plan. I discussed this case in detail with my attending Dr. Disla Undiagnosed new problem with uncertain prognosis? @ -No Drug Therapy requiring intensive monitoring for toxicity (Heparin, Nitro, Insulin, Cardizem)? @ -No Were any procedures done? @ -No Diagnosis/symptom? @ -Abdominal pain Acute, or Chronic, or Acute on Chronic? @ -Acute on chronic Uncomplicated (without systemic symptoms) or Complicated (systemic symptoms)? @ -Uncomplicated Side effects of treatment? @ -No Exacerbation, Progression, or Severe Exacerbation? @ -No Poses a threat to life or bodily function? How? (Chest pain, [place], [place], pneumonia, PE, COPD, DKA, ARF, appy, cholecystitis, CVA, Diverticulitis, Homicidal, Suicidal, threat to staff... and all critical care pts) @ -Unlikely - Lab Data Result diagrams: 04/29/24 22:03 04/29/24 22:03 Lab Results 04/29/24 04/29/24 Range/Units 22:03 22:03 WBC 5.0 (3.8-10.6) k/uL RBC 3.81 (3.80-5.40) m/uL Hgb 11.6 (11.4-16.0) gm/dL Hct 35.2 (34.0-46.0) % MCV 92.2 (80.0-100.0) fL MCH 30.3 (25.0-35.0) pg MCHC 32.9 (31.0-37.0) g/dL RDW 13.5 (11.5-15.5) % Plt Count 220 (150-450) k/uL MPV 7.2 Neutrophils % 62 % Lymphocytes % 30 % Monocytes % 5 % Eosinophils % 1 % Basophils % 0 % Neutrophils # 3.1 (1.3-7.7) k/uL Lymphocytes # 1.5 (1.0-4.8) k/uL Monocytes # 0.2 (0-1.0) k/uL Eosinophils # 0.1 (0-0.7) k/uL Basophils # 0.0 (0-0.2) k/uL Sodium 141 (137-145) mmol/L Potassium 4.0 (3.5-5.1) mmol/L Chloride 110 H (98-107) mmol/L Carbon Dioxide 25 (22-30) mmol/L Anion Gap 6 mmol/L BUN 13 (7-17) mg/dL Creatinine 0.63 (0.52-1.04) mg/dL Est GFR (CKD-EPI)AfAm >90 (>60 ml/min/1.73 sqM) Est GFR (CKD-EPI)NonAf >90 (>60 ml/min/1.73 sqM) Glucose 95 (74-99) mg/dL Calcium 9.9 (8.4-10.2) mg/dL Total Bilirubin 0.6 (0.2-1.3) mg/dL AST 27 (14-36) U/L ALT 20 (4-34) U/L Alkaline Phosphatase 107 (38-126) U/L Total Protein 6.9 (6.3-8.2) g/dL Albumin 4.4 (3.5-5.0) g/dL Disposition Clinical Impression: Chronic abdominal pain Disposition: HOME SELF-CARE Condition: Good Instructions (If sedation given, give patient instructions): Abdominal Pain (ED) Additional Instructions: Follow-up with PCP. Report back to ER with any new or worsening symptoms. Is patient prescribed a controlled substance at d/c from ED?: No Referrals: None,Stated [Primary Care Provider] - 1-2 days Samuel Daniels MD [STAFF PHYSICIAN] - 1-2 days Time of Disposition: 23:00
[2024-04-29] MEDS: HYDROmorphone 0.5 MG/0.5 ML SYRINGE IVP STA (23:10)
[2024-04-29 23:23] VITALS: BP 122/84; PULSE 80; RESP 18
== END 2024-04-29 23:23 | disposition home or self-care (01) ==
LOC: EC 20:47
CPT/HCPCS: 36415; 80053; 85025; 96361; 96374; 96375; 99284

== ENCOUNTER 2024-05-03 19:30 | Emergency (ER) | payer OTHER ==
[2024-05-03 19:59] VITALS: TEMP 97.9
--- NOTE | 2024-05-03 20:34 | ED ---
Abdominal Pain HPI - General Chief Complaint: Abdominal Pain Stated Complaint: pain vomiting Time Seen by Provider: 05/03/24 20:02 Source: patient Mode of arrival: ambulatory Limitations: no limitations - History of Present Illness Initial Comments: This patient is a 33-year-old woman who presents for evaluation of left-sided abdominal pain that has been getting worse over past hours. The patient describes as aching, constant, without worsening or relieving factors. MD Complaint: abdominal pain -: hour(s) Location: LLQ Radiation: none Migration to: no migration Severity: moderate Quality: aching Consistency: constant Improves With: nothing Worsens With: nothing Associated Symptoms: nausea, vomiting - Related Data Home Medications Medication Instructions Recorded Confirmed Omeprazole 40 mg PO HS 03/16/24 05/13/24 Orphenadrine Citrate [Orphenadrine 100 mg PO BID PRN 04/02/24 05/13/24 Citrate ER] Naproxen [Naprosyn] 500 mg PO BID PRN 05/13/24 05/13/24 Allergies Allergy/AdvReac Type Severity Reaction Status Date / Time sulfamethoxazole Allergy Severe Anaphylaxis Verified 05/24/24 18:18 [From Bactrim] trimethoprim [From Bactrim] Allergy Severe Anaphylaxis Verified 05/24/24 18:18 adhesive tape Allergy Rash/Hives Verified 05/24/24 18:18 aloe vera Allergy Rash/Hives Verified 05/24/24 18:18 amoxicillin [From Augmentin] Allergy Itching Verified 05/24/24 18:18 azithromycin Allergy Rash/Hives Verified 05/24/24 18:18 cephalexin Allergy Rash/Hives Verified 05/24/24 18:18 clavulanic acid Allergy Itching Verified 05/24/24 18:18 [From Augmentin] metronidazole [From Flagyl] Allergy Rash/Hives Verified 05/24/24 18:18 Penicillins Allergy Rash/Hives Verified 05/24/24 18:18 alprazolam [From Xanax] AdvReac MAKES Verified 05/24/24 18:18 PARANOID dicyclomine [From Bentyl] AdvReac constipatio Verified 05/24/24 18:18 n Review of Systems ROS Statement: Those systems with pertinent positive or pertinent negative responses have been documented in the HPI. ROS Other: All systems not noted in ROS Statement are negative. Constitutional: Denies: fever, chills, weakness Respiratory: Denies: cough, dyspnea Cardiovascular: Denies: chest pain, palpitations Gastrointestinal: Reports: abdominal pain, nausea, vomiting. Denies: diarrhea, constipation Genitourinary: Denies: dysuria, hematuria, abnormal menses Musculoskeletal: Denies: back pain Skin: Denies: rash Neurological: Denies: headache, weakness, numbness Past Medical History Past Medical History: Blood Disorder, GERD/Reflux Additional Past Medical History / Comment(s): Endometriosis, polycystic ovarian syndrome. IRON DEFICIENCY ANEMIA. Stomach Ulcer. Hx ovarian cyst. History of Any Multi-Drug Resistant Organisms: None Reported Past Surgical History: Ablation, Appendectomy, Section, Cho lecystectomy, Hernia Repair, Hysterectomy, Tubal Ligation, Uterine Ablation Additional Past Surgical History / Comment(s): Laparoscopy X2, Section X3, right ovary and right tube removed, then total hysterectomy including left ovary and left fallopian tube, cyst removed from chest, ADHESION REMOVAL FROM PAST CSECTION, vaginal/pelvic biopsy. Scar tissure removal abdomen L upper lower Past Anesthesia/Blood Transfusion Reactions: No Reported Reaction Past Psychological History: Anxiety, Depression Smoking Status: Never smoker Past Alcohol Use History: Occasional Past Drug Use History: None Reported - Past Family History Mother Family Medical History: Deep Vein Thrombosis (DVT), Hyperlipidemia Additional Family Medical History / Comment(s): Depression and anxiety. DVT to arm after surgery. General Exam Limitations: no limitations General appearance: alert, in no apparent distress Head exam: Present: atraumatic, normocephalic Eye exam: Present: normal appearance. Absent: scleral icterus, conjunctival injection ENT exam: Present: normal oropharynx Neck exam: Present: normal inspection Respiratory exam: Present: normal lung sounds bilaterally. Absent: respiratory distress, wheezes, rales, rhonchi, stridor, accessory muscle use Cardiovascular Exam: Present: regular rate, normal rhythm, normal heart sounds. Absent: systolic murmur, diastolic murmur, rubs, gallop GI/Abdominal exam: Present: soft. Absent: distended, tenderness, guarding, rebound, rigid, mass, pulsatile mass Extremities exam: Present: normal inspection, normal capillary refill. Absent: pedal edema, calf tenderness Back exam: Present: normal inspection. Absent: CVA tenderness (R), CVA tenderness (L) Neurological exam: Present: alert Skin exam: Present: warm, dry, intact, normal color. Absent: rash Course Vital Signs 05/03/24 05/03/24 05/04/24 19:56 21:32 00:08 Temperature 97.9 F Pulse Rate 105 H 72 78 Respiratory 18 16 18 Rate Blood Pressure 115/74 118/77 116/76 O2 Sat by Pulse 99 100 100 Oximetry Medical Decision Making - Medical Decision Making Was pt. sent in by a medical professional or institution (, PA, RN CVICU, urgent care, hospital, or long term...) When possible be specific @ -[No] Did you speak to anyone other than the patient for history (EMS, parent, family, police, friend...)? What history was obtained from this source @ -[No] Did you review nursing and triage notes (agree or disagree)? Why? @ -[I reviewed and agree with nursing and triage notes] Were old charts reviewed (outside hosp., previous admission, EMS record, old EKG, old radiological studies, urgent care reports/EKG's, long term records)? Report findings @ -[No old charts were reviewed] Differential Diagnosis (chest pain, altered mental status, abdominal pain women, abdominal pain men, vaginal bleeding, weakness, fever, dyspnea, syncope, headache, dizziness, GI bleed, back pain, seizure, CVA, palpatations, mental health, musculoskeletal)? @ -[Differential Abdominal Pain Women: Appendicitis, Cholecystitis, diverticulosis, ischemic bowel, pancreatitis, hepatitis, UTI, gastroenteritis, AAA, incarcerated hernia, bowel obstruction, constipation, inflammatory bowel, hepatitis, peptic ulcer disease, splenic infarction, perforated viscus, vulvitis, ovarian torsion, PID, kidney stone, placenta abruption, this is not meant to be an all-inclusive list EKG interpreted by me (3pts min.). @ -[As above] X-rays interpreted by me (1pt min.). @ -[None done] CT interpreted by me (1pt min.). @ -[None done] U/S interpreted by me (1pt. min.). @ -[None done] What testing was considered but not performed or refused? (CT, X-rays, U/S, labs)? Why? @ -[None] What meds were considered but not given or refused? Why? @ -[None] Did you discuss the management of the patient with other professionals (pablo peña i.e. , PA, RN CVICU, lab, RT, psych nurse, criminal justice social worker, hi lo driver, teacher, hospital chief executive officer, nurse case management)? Give summary @ -[No] Was smoking cessation discussed for >3mins.? @ -[No] Was critical care preformed (if so, how long)? @ -[No] Were there social determinants of health that impacted care today? How? (Homelessness, low income, unemployed, alcoholism, drug addiction, transportatio n, low edu. Level, literacy, decrease access to med. care, long term, rehab)? @ -[No] Was there de-escalation of care discussed even if they declined (Discuss DNR or withdrawal of care, Hospice)? DNR status @ -[No] What co-morbidities impacted this encounter? (DM, HTN, Smoking, COPD, CAD, Cancer, CVA, ARF, Chemo, Hep., AIDS, mental health diagnosis, sleep apnea, morbid obesity)? @ -[None] Was patient admitted / discharged? Hospital course, mention meds given and route, prescriptions, significant lab abnormalities, going to OR and other pertinent info. @ -[Patient is 33-year-old woman presenting to have evaluation of abdominal pain. The workup is benign. The physical exam is not suggestive of acute surgical condition. The patient did have improvement with treatment. Discussed appropriate further care and follow-up as well as return parameters. Undiagnosed new problem with uncertain prognosis? @ -[No] Drug Therapy requiring intensive monitoring for toxicity (Heparin, Nitro, Insulin, Cardizem)? @ -[No] Were any procedures done? @ -[No] Diagnosis/symptom? @ -[Acute abdominal pain Acute, or Chronic, or Acute on Chronic? @ -[Acute Uncomplicated (without systemic symptoms) or Complicated (systemic symptoms)? @ -[Uncomplicated Side effects of treatment? @ -[No] Exacerbation, Progression, or Severe Exacerbation? @ -[No] Poses a threat to life or bodily function? How? (Chest pain, USA, [place], pneumonia, PE, COPD, DKA, ARF, appy, cholecystitis, CVA, Diverticulitis, Homicidal, Lam icidal, threat to staff... and all critical care pts) @ -[No] - Lab Data Result diagrams: 05/03/24 20:24 05/03/24 20:24 Lab Results 05/03/24 05/03/24 05/03/24 Range/Units 20:20 20:24 20:24 WBC 3.6 L (3.8-10.6) k/uL RBC 3.62 L (3.80-5.40) m/uL Hgb 11.4 (11.4-16.0) gm/dL Hct 32.2 L (34.0-46.0) % MCV 89.1 (80.0-100.0) fL MCH 31.4 (25.0-35.0) pg MCHC 35.3 (31.0-37.0) g/dL RDW 13.8 (11.5-15.5) % Plt Count 161 (150-450) k/uL MPV 8.6 Neutrophils % 62 % Lymphocytes % 28 % Monocytes % 7 % Eosinophils % 0 % Basophils % 0 % Neutrophils # 2.2 (1.3-7.7) k/uL Lymphocytes # 1.0 (1.0-4.8) k/uL Monocytes # 0.3 (0-1.0) k/uL Eosinophils # 0.0 (0-0.7) k/uL Basophils # 0.0 (0-0.2) k/uL Sodium 142 (137-145) mmol/L Potassium 3.6 (3.5-5.1) mmol/L Chloride 108 H (98-107) mmol/L Carbon Dioxide 28 (22-30) mmol/L Anion Gap 6 mmol/L BUN 15 (7-17) mg/dL Creatinine 0.77 (0.52-1.04) mg/dL Est GFR (CKD-EPI)AfAm >90 (>60 ml/min/1.73 sqM) Est GFR (CKD-EPI)NonAf >90 (>60 ml/min/1.73 sqM) Glucose 92 (74-99) mg/dL Plasma Lactic Acid Santhosh (0.7-2.0) mmol/L Calcium 9.3 (8.4-10.2) mg/dL Total Bilirubin 0.7 (0.2-1.3) mg/dL AST 32 (14-36) U/L ALT 25 (4-34) U/L Alkaline Phosphatase 125 (38-126) U/L Total Protein 6.5 (6.3-8.2) g/dL Albumin 4.0 (3.5-5.0) g/dL Amylase 55 (30-110) U/L Lipase 35 (23-300) U/L Urine Color Light Yellow Urine Appearance Clear (Clear) Urine pH 6.0 (5.0-8.0) Ur Specific [place] 1.030 (1.001-1.035) Urine Protein Trace H (Negative) Urine Glucose (UA) Negative (Negative) Urine Ketones Negative (Negative) Urine Blood Negative (Negative) Urine Nitrite Negative (Negative) Urine Bilirubin Negative (Negative) Urine Urobilinogen <2.0 (<2.0) mg/dL Ur Leukocyte Esterase Negative (Negative) 05/03/24 Range/Units 20:24 WBC (3.8-10.6) k/uL RBC (3.80-5.40) m/uL Hgb (11.4-16.0) gm/dL Hct (34.0-46.0) % MCV (80.0-100.0) fL MCH (25.0-35.0) pg MCHC (31.0-37.0) g/dL RDW (11.5-15.5) % Plt Count (150-450) k/uL MPV Neutrophils % % Lymphocytes % % Monocytes % % Eosinophils % % Basophils % % Neutrophils # (1.3-7.7) k/uL Lymphocytes # (1.0-4.8) k/uL Monocytes # (0-1.0) k/uL Eosinophils # (0-0.7) k/uL Basophils # (0-0.2) k/uL Sodium (137-145) mmol/L Potassium (3.5-5.1) mmol/L Chloride (98-107) mmol/L Carbon Dioxide (22-30) mmol/L Anion Gap mmol/L BUN (7-17) mg/dL Creatinine (0.52-1.04) mg/dL Est GFR (CKD-EPI)AfAm (>60 ml/min/1.73 sqM) Est GFR (CKD-EPI)NonAf (>60 ml/min/1.73 sqM) Glucose (74-99) mg/dL Plasma Lactic Acid Santhosh 0.8 (0.7-2.0) mmol/L Calcium (8.4-10.2) mg/dL Total Bilirubin (0.2-1.3) mg/dL AST (14-36) U/L ALT (4-34) U/L Alkaline Phosphatase (38-126) U/L Total Protein (6.3-8.2) g/dL Albumin (3.5-5.0) g/dL Amylase (30-110) U/L Lipase (23-300) U/L Urine Color Urine Appearance (Clear) Urine pH (5.0-8.0) Ur Specific [place] (1.001-1.035) Urine Protein (Negative) Urine Glucose (UA) (Negative) Urine Ketones (Negative) Urine Blood (Negative) Urine Nitrite (Negative) Urine Bilirubin (Negative) Urine Urobilinogen (<2.0) mg/dL Ur Leukocyte Esterase (Negative) Disposition Clinical Impression: Abdominal pain Disposition: HOME SELF-CARE Condition: Good Instructions (If sedation given, give patient instructions): Abdominal Pain (ED) Is patient prescribed a controlled substance at d/c from ED?: No Referrals: None,Stated [Primary Care Provider] - 1-2 days Lauryn Buckley MD [STAFF PHYSICIAN] - 1-2 days
[2024-05-03] MEDS: FAMOTIDINE 20 MG/2 ML VIAL IV STA (20:52)
[2024-05-03] MEDS: SODIUM CHLORIDE 0.9% 1,000 ML IV ONE (20:52)
[2024-05-03] MEDS: ONDANSETRON 4 MG/2 ML VIAL IVP STA (20:52)
[2024-05-03 20:57] LABS: Basophils % (A) 0 %; Eosinophils % (A) 0 %; HCT 32.2 % (34.0-46.0); HGB 11.4 gm/dL (11.4-16.0); Lymphocytes % (A) 28 %; MCH 31.4 pg (25.0-35.0); MCHC 35.3 g/dL (31.0-37.0); MCV 89.1 fL (80.0-100.0); Mean Platelet Volume 8.6; Monocytes # (A) 0.3 k/uL (0-1.0); Monocytes % (A) 7 %; Neutrophils # (A) 2.2 k/uL (1.3-7.7); Neutrophils % (A) 62 %; Platelet Count 161 k/uL (150-450); RBC 3.62 m/uL (3.80-5.40); RDW 13.8 % (11.5-15.5); WBC 3.6 k/uL (3.8-10.6)
[2024-05-03 21:06] LABS: Appearance,Urine Clear (Clear); Bilirubin,Urine Negative (Negative); Blood,Urine Negative (Negative); Color,Urine Light Yellow; Glucose,Urine (UA) Negative (Negative); Ketones,Urine Negative (Negative); Leukocyte Esterase,Urine Negative (Negative); Nitrite,Urine Negative (Negative); Protein,Urine Trace (Negative); Urobilinogen,Urine <2.0 mg/dL (<2.0)
[2024-05-03 21:12] LABS: ALT 25 U/L (4-34); AST 32 U/L (14-36); African American GFR (CKD) >90 (>60 ml/min/1.73 sqM); Alkaline Phosphatase 125 U/L (38-126); Amylase 55 U/L (30-110); Anion Gap 6 mmol/L; Blood Urea Nitrogen 15 mg/dL (7-17); Calcium 9.3 mg/dL (8.4-10.2); Carbon Dioxide 28 mmol/L (22-30); Chloride 108 mmol/L (98-107); Glucose 92 mg/dL (74-99); Lipase 35 U/L (23-300); Non-African American GFR(CKD) >90 (>60 ml/min/1.73 sqM); Potassium 3.6 mmol/L (3.5-5.1); Sodium 142 mmol/L (137-145); Total Bilirubin 0.7 mg/dL (0.2-1.3); Total Protein 6.5 g/dL (6.3-8.2)
[2024-05-03] MEDS: PANTOPRAZOLE 40 MG/10 ML VIAL IVP STA (22:01)
[2024-05-04] MEDS: droPERidol 5 MG/2 ML VIAL IM ONE (00:01)
[2024-05-04 00:08] VITALS: BP 116/76; PULSE 78; RESP 18
== END 2024-05-04 00:10 | disposition home or self-care (01) ==
LOC: EC 19:30
DX: R10.32 Left lower quadrant pain (principal); Z88.0 Allergy status to penicillin; Z88.2 Allergy status to sulfonamides; Z88.1 Allergy status to other antibiotic agents; Z91.09 Other allergy status, other than to drugs and biological substances; Z88.8 Allergy status to other drugs, medicaments and biological substances
CPT/HCPCS: 99284; 96374; 96375 ×2; 96361; 36415; 80053; 82150; 83605; 83690; 85025; 81003; J2405; J3490; J2470

== ENCOUNTER 2024-05-13 11:03 | Emergency (ER) | payer OTHER ==
--- NOTE | 2024-05-13 11:24 | ED ---
Female Urogenital HPI - General Chief complaint: Urogenital Stated complaint: back pain Time Seen by Provider: 05/13/24 11:15 Source: patient, RN notes reviewed Mode of arrival: ambulatory Limitations: no limitations - History of Present Illness Initial comments: This is a 33-year-old female with history of nephrolithiasis and pyelonephritis complaining of dysuria and left mid back pain x 2 days. Patient also endorses decreased urinary output and "peeing air". Describes lower back pain as constant and burning at 7 out of 10. Patient is a frequent visitor to the ER with similar complaints in the past. Endorses use of naproxen and Norflex prior to arrival. Patient denies increased urinary frequency, urgency, hematuria, fever, chills, chest pain, dyspnea, abdominal pain, vomiting, diarrhea, dizziness. MD Complaint: dysuria Onset/Timin -: days(s) Severity scale (1-10): 7 Quality: burning Consistency: constant Improves with: none Worsens with: none Associated Symptoms: nausea/vomiting - Related Data Home Medications Medication Instructions Recorded Confirmed Omeprazole 40 mg PO HS 03/16/24 05/13/24 Orphenadrine Citrate [Orphenadrine 100 mg PO BID PRN 04/02/24 05/13/24 Citrate ER] Naproxen [Naprosyn] 500 mg PO BID PRN 05/13/24 05/13/24 Allergies Allergy/AdvReac Type Severity Reaction Status Date / Time sulfamethoxazole Allergy Severe Anaphylaxis Verified 05/13/24 12:04 [From Bactrim] trimethoprim [From Bactrim] Allergy Severe Anaphylaxis Verified 05/13/24 12:04 adhesive tape Allergy Rash/Hives Verified 05/13/24 12:04 aloe vera Allergy Rash/Hives Verified 05/13/24 12:04 amoxicillin [From Augmentin] Allergy Itching Verified 05/13/24 12:04 azithromycin Allergy Rash/Hives Verified 05/13/24 12:04 cephalexin Allergy Rash/Hives Verified 05/13/24 12:04 clavulanic acid Allergy Itching Verified 05/13/24 12:04 [From Augmentin] metronidazole [From Flagyl] Allergy Rash/Hives Verified 05/13/24 12:04 Penicillins Allergy Rash/Hives Verified 05/13/24 12:04 alprazolam [From Xanax] AdvReac MAKES Verified 05/13/24 12:04 PARANOID dicyclomine [From Bentyl] AdvReac constipatio Verified 05/13/24 12:04 n Review of Systems ROS Statement: Those systems with pertinent positive or pertinent negative responses have been documented in the HPI. ROS Other: All systems not noted in ROS Statement are negative. Past Medical History Past Medical History: Blood Disorder, GERD/Reflux Additional Past Medical History / Comment(s): Endometriosis, polycystic ovarian syndrome. IRON DEFICIENCY ANEMIA. Stomach Ulcer. Hx ovarian cyst. History of Any Multi-Drug Resistant Organisms: None Reported Past Surgical History: Ablation, Appendectomy, Section, Cholecystectomy, Hernia Repair, Hysterectomy, Tubal Ligation, Uterine Ablation Additional Past Surgical History / Comment(s): Laparoscopy X2, Section X3, right ovary and right tube removed, then total hysterectomy including left ovary and left fallopian tube, cyst removed from chest, ADHESION REMOVAL FROM PAST CSECTION, vaginal/pelvic biopsy. Scar tissure removal abdomen L upper lower Past Anesthesia/Blood Transfusion Reactions: No Reported Reaction Past Psychological History: Anxiety, Depression Smoking Status: Never smoker Past Alcohol Use History: Occasional Past Drug Use History: None Reported - Past Family History Mother Family Medical History: Deep Vein Thrombosis (DVT), Hyperlipidemia Additional Family Medical History / Comment(s): Depression and anxiety. DVT to arm after surgery. General Exam Limitations: no limitations General appearance: alert, in no apparent distress Head exam: Present: atraumatic, normocephalic, normal inspection Eye exam: Present: normal appearance, PERRL, EOMI. Absent: scleral icterus, conjunctival injection, periorbital swelling ENT exam: Present: normal exam, mucous membranes moist Neck exam: Present: normal inspection. Absent: tenderness, meningismus, lymphadenopathy Respiratory exam: Present: normal lung sounds bilaterally. Absent: respiratory distress, wheezes, rales, rhonchi, stridor Cardiovascular Exam: Present: regular rate, normal rhythm, normal heart sounds. Absent: systolic murmur, diastolic murmur, rubs, gallop, clicks GI/Abdominal exam: Present: soft, normal bowel sounds. Absent: distended, tenderness, guarding, rebound, rigid Extremities exam: Present: normal inspection, full ROM, normal capillary refill. Absent: tenderness, pedal edema, joint swelling, calf tenderness Back exam: Present: CVA tenderness (L) Neurological exam: Present: alert, oriented X3, CN II-XII intact Psychiatric exam: Present: normal affect, normal mood Skin exam: Present: warm, dry, intact, normal color. Absent: rash Course Vital Signs 05/13/24 05/13/24 11:05 13:23 Temperature 98.8 F 98.1 F Pulse Rate 82 79 Respiratory 18 16 Rate Blood Pressure 133/81 125/84 O2 Sat by Pulse 100 97 Oximetry Medical Decision Making - Medical Decision Making Was pt. sent in by a medical professional or institution (, PA, TRAIL CONSTRUCTION WORKER, urgent care, hospital, or fci...) When possible be specific @ -No Did you speak to anyone other than the patient for history (EMS, parent, family, police, friend...)? What history was obtained from this source @ -No Did you review nursing and triage notes (agree or disagree)? Why? @ -I reviewed and agree with nursing and triage notes Were old charts reviewed (outside hosp., previous admission, EMS record, old EKG, old radiological studies, urgent care reports/EKG's, fci records)? Report findings @ -No old charts were reviewed Differential Diagnosis (chest pain, altered mental status, abdominal pain women, abdominal pain men, vaginal bleeding, weakness, fever, dyspnea, syncope, headache, dizziness, GI bleed, back pain, seizure, CVA, palpatations, mental health, musculoskeletal)? @ -Differential Back Pain: Strain, zoster, cauda equina syndrome, epidural abscess, vertebral osteomyelitis, discitis, fracture, subluxation, disc herniation, DJD, spinal stenosis, dissection, AAA, pancreatitis, peptic ulcer disease, pyelonephritis, kidney stone, this is not meant to be an all-inclusive list. EKG interpreted by me (3pts min.). @ -Not done X-rays interpreted by me (1pt min.). @ -KUB revealed no radiopaque nephrolithiasis CT interpreted by me (1pt min.). @ -None done U/S interpreted by me (1pt. min.). @ -None done What testing was considered but not performed or refused? (CT, X-rays, U/S, labs)? Why? @ -None What meds were considered but not given or refused? Why? @ -None Did you discuss the management of the patient with other professionals (professionals i.e. , PA, TRAIL CONSTRUCTION WORKER, lab, RT, psych nurse, social science professor, evp business development, teacher, correction officer penitentiary, shoe parts caser)? Give summary @ -No Was smoking cessation discussed for >3mins.? @ -No Was critical care preformed (if so, how long)? @ -No Were there social determinants of health that impacted care today? How? (Homelessness, low income, unemployed, alcoholism, drug addiction, transportation, low edu. Level, literacy, decrease access to med. care, skilled nursing, rehab)? @ -No Was there de-escalation of care discussed even if they declined (Discuss DNR or withdrawal of care, Hospice)? DNR status @ -No What co-morbidities impacted this encounter? (DM, HTN, Smoking, COPD, CAD, Cancer, CVA, ARF, Chemo, Hep., AIDS, mental health diagnosis, sleep apnea, morbid obesity)? @ -None Was patient admitted / discharged? Hospital course, mention meds given and route, prescriptions, significant lab abnormalities, going to OR and other pertinent info. @ -Discharge. UA was negative for leukocytes or bacteria or blood. KUB revealed no radiopaque stones. Patient given Dilaudid IV for pain and discharge. Undiagnosed new problem with uncertain prognosis? @ -No Drug Therapy requiring intensive monitoring for toxicity (Heparin, Nitro, Insulin, Cardizem)? @ -No Were any procedures done? @ -No Diagnosis/symptom? @ -Low back pain Acute, or Chronic, or Acute on Chronic? @ -Acute Uncomplicated (without systemic symptoms) or Complicated (systemic symptoms)? @ -Uncomplicated Side effects of treatment? @ -No Exacerbation, Progression, or Severe Exacerbation? @ -No Poses a threat to life or bodily function? How? (Chest pain, [place], [place], pneumonia, PE, COPD, DKA, ARF, appy, cholecystitis, CVA, Diverticulitis, Homicidal, Suicidal, threat to staff... and all critical care pts) @ -No - Lab Data Lab Results 05/13/24 05/13/24 Range/Units 11:29 11:29 Urine Color Colorless Urine Appearance Clear (Clear) Urine pH 7.0 (5.0-8.0) Ur Specific [place] 1.012 (1.001-1.035) Urine Protein Negative (Negative) Urine Glucose (UA) Negative (Negative) Urine Ketones Negative (Negative) Urine Blood Negative (Negative) Urine Nitrite Negative (Negative) Urine Bilirubin Negative (Negative) Urine Urobilinogen <2.0 (<2.0) mg/dL Ur Leukocyte Esterase Negative (Negative) Urine HCG, Qual Not Detected (Not Detectd) Disposition Clinical Impression: Back pain Disposition: HOME SELF-CARE Condition: Good Additional Instructions: Advised follow-up urology general surgeon regarding urinary symptoms and "peeing air" to rule out enterovesicular fistula. Is patient prescribed a controlled substance at d/c from ED?: No Referrals: None,Stated [Primary Care Provider] - 1-2 days Time of Disposition: 12:38
[2024-05-13] MEDS: ONDANSETRON 4 MG/2 ML VIAL IVP STA (11:52)
--- NOTE | 2024-05-13 11:53 | XR ---
EXAMINATION TYPE: XR KUB DATE OF EXAM: 05/13/2024 COMPARISON: 04/19/2024 HISTORY: Pain TECHNIQUE: Single supine KUB image of the abdomen is obtained FINDINGS: Small bowel demonstrates no evidence for dilatation or air fluid levels. Gas and fecal material is seen in non-distended colon. The gallbladder surgically absent. No convincing evidence for pneumoperitoneum. No unusual calcifications. The lung bases are clear. The osseous structures are intact. IMPRESSION: 1. Overall nonobstructive bowel gas pattern. [facility], , 05/13/2024 11:51 AM
[2024-05-13 12:00] LABS: Appearance,Urine Clear (Clear); Bilirubin,Urine Negative (Negative); Blood,Urine Negative (Negative); Color,Urine Colorless; Glucose,Urine (UA) Negative (Negative); Ketones,Urine Negative (Negative); Leukocyte Esterase,Urine Negative (Negative); Nitrite,Urine Negative (Negative); Protein,Urine Negative (Negative); Specific Gravity,Urine 1.012 (1.001-1.035); Urobilinogen,Urine <2.0 mg/dL (<2.0)
[2024-05-13] MEDS: ONDANSETRON 4 MG/2 ML VIAL IM STA (12:00)
[2024-05-13] MEDS: HYDROmorphone 0.5 MG/0.5 ML SYRINGE IVP STA (12:38)
[2024-05-13] MEDS: HYDROmorphone 0.5 MG/0.5 ML SYRINGE IM STA (12:54)
[2024-05-13 13:31] VITALS: BP 125/84; PULSE 79; RESP 16; TEMP 98.1
== END 2024-05-13 13:33 | disposition home or self-care (01) ==
LOC: EC 11:03
CPT/HCPCS: 74018; 81003; 81025; 96372; 99283

== ENCOUNTER 2024-05-15 08:36 | Emergency (ER) | payer OTHER ==
[2024-05-15 09:01] VITALS: RESP 18
[2024-05-15] MEDS: KETOROLAC 15 MG/ML 1 ML VIAL IVP STA (10:13)
[2024-05-15 10:28] LABS: Basophils % (A) 0 %; Eosinophils % (A) 1 %; HCT 34.2 % (34.0-46.0); HGB 11.1 gm/dL (11.4-16.0); Lymphocytes # (A) 1.3 k/uL (1.0-4.8); Lymphocytes % (A) 29 %; MCH 29.5 pg (25.0-35.0); MCHC 32.5 g/dL (31.0-37.0); MCV 90.5 fL (80.0-100.0); Mean Platelet Volume 7.5; Monocytes # (A) 0.2 k/uL (0-1.0); Monocytes % (A) 4 %; Neutrophils # (A) 2.9 k/uL (1.3-7.7); Neutrophils % (A) 63 %; Platelet Count 162 k/uL (150-450); RBC 3.78 m/uL (3.80-5.40); RDW 13.6 % (11.5-15.5); WBC 4.5 k/uL (3.8-10.6)
[2024-05-15 10:46] LABS: ALT 22 U/L (4-34); AST 28 U/L (14-36); African American GFR (CKD) >90 (>60 ml/min/1.73 sqM); Albumin 4.2 g/dL (3.5-5.0); Alkaline Phosphatase 113 U/L (38-126); Anion Gap 4 mmol/L; Blood Urea Nitrogen 15 mg/dL (7-17); Calcium 9.8 mg/dL (8.4-10.2); Carbon Dioxide 32 mmol/L (22-30); Chloride 104 mmol/L (98-107); Glucose 92 mg/dL (74-99); Non-African American GFR(CKD) >90 (>60 ml/min/1.73 sqM); Potassium 4.1 mmol/L (3.5-5.1); Sodium 140 mmol/L (137-145); Total Bilirubin 1.3 mg/dL (0.2-1.3)
[2024-05-15 11:09] LABS: Appearance,Urine Clear (Clear); Bilirubin,Urine Negative (Negative); Blood,Urine Negative (Negative); Color,Urine Colorless; Glucose,Urine (UA) Negative (Negative); Ketones,Urine Negative (Negative); Leukocyte Esterase,Urine Negative (Negative); Nitrite,Urine Negative (Negative); PH, Urine 6.5 (5.0-8.0); Protein,Urine Negative (Negative); Specific Gravity,Urine 1.009 (1.001-1.035); Urobilinogen,Urine <2.0 mg/dL (<2.0)
--- NOTE | 2024-05-15 11:10 | ED ---
Back Pain HPI - General Chief Complaint: Back Pain/Injury Stated Complaint: L side back pain Time Seen by Provider: 05/15/24 11:10 Source: patient, RN notes reviewed, old records reviewed Limitations: no limitations - History of Present Illness Initial Comments: 33-year-old female presenting to the ER with a chief complaint of left mid back pain. Patient reports she was seen here 2 days prior for similar complaint. Urine analysis was negative at that time. She states she is scheduled to follow-up with general surgery on Saturday of next week to rule out a "bladder fibroid". She states her pain is not controlled with naproxen and Norflex. She denies back injuries, fevers, chills, nausea, vomiting, abdominal pain, constipation/diarrhea. She does report a burning sensation with urination. - Related Data Home Medications Medication Instructions Recorded Confirmed Omeprazole 40 mg PO HS 03/16/24 05/13/24 Orphenadrine Citrate [Orphenadrine 100 mg PO BID PRN 04/02/24 05/13/24 Citrate ER] Naproxen [Naprosyn] 500 mg PO BID PRN 05/13/24 05/13/24 Allergies Allergy/AdvReac Type Severity Reaction Status Date / Time sulfamethoxazole Allergy Severe Anaphylaxis Verified 05/15/24 08:59 [From Bactrim] trimethoprim [From Bactrim] Allergy Severe Anaphylaxis Verified 05/15/24 08:59 adhesive tape Allergy Rash/Hives Verified 05/15/24 08:59 aloe vera Allergy Rash/Hives Verified 05/15/24 08:59 amoxicillin [From Augmentin] Allergy Itching Verified 05/15/24 08:59 azithromycin Allergy Rash/Hives Verified 05/15/24 08:59 cephalexin Allergy Rash/Hives Verified 05/15/24 08:59 clavulanic acid Allergy Itching Verified 05/15/24 08:59 [From Augmentin] metronidazole [From Flagyl] Allergy Rash/Hives Verified 05/15/24 08:59 Penicillins Allergy Rash/Hives Verified 05/15/24 08:59 alprazolam [From Xanax] AdvReac MAKES Verified 05/15/24 08:59 PARANOID dicyclomine [From Bentyl] AdvReac constipatio Verified 05/15/24 08:59 n Review of Systems ROS Statement: Those systems with pertinent positive or pertinent negative responses have been documented in the HPI. ROS Other: All systems not noted in ROS Statement are negative. Past Medical History Past Medical History: Blood Disorder, GERD/Reflux Additional Past Medical History / Comment(s): Endometriosis, polycystic ovarian syndrome. IRON DEFICIENCY ANEMIA. Stomach Ulcer. Hx ovarian cyst. History of Any Multi-Drug Resistant Organisms: None Reported Past Surgical History: Ablation, Appendectomy, Section, Cholecystectomy, Hernia Repair, Hysterectomy, Tubal Ligation, Uterine Ablation Additional Past Surgical History / Comment(s): Laparoscopy X2, Section X3, right ovary and right tube removed, then total hysterectomy including left ovary and left fallopian tube, cyst removed from chest, ADHESION REMOVAL FROM PAST CSECTION, vaginal/pelvic biopsy. Scar tissure removal abdomen L upper lower Past Anesthesia/Blood Transfusion Reactions: No Reported Reaction Past Psychological History: Anxiety, Depression Smoking Status: Never smoker Past Alcohol Use History: Occasional Past Drug Use History: None Reported - Past Family History Mother Family Medical History: Deep Vein Thrombosis (DVT), Hyperlipidemia Additional Family Medical History / Comment(s): Depression and anxiety. DVT to arm after surgery. General Exam Limitations: no limitations General appearance: alert, in no apparent distress Respiratory exam: Present: normal lung sounds bilaterally. Absent: respiratory distress, wheezes, rales, rhonchi, stridor Cardiovascular Exam: Present: regular rate, normal rhythm, normal heart sounds. Absent: systolic murmur, diastolic murmur, rubs, gallop, clicks GI/Abdominal exam: Present: soft, normal bowel sounds. Absent: distended, tenderness, guarding, rebound, rigid Back exam: Present: tenderness (left flank) Neurological exam: Present: alert, oriented X3, CN II-XII intact Skin exam: Present: warm, dry, intact, normal color. Absent: rash Course Vital Signs 05/15/24 05/15/24 08:59 11:47 Temperature 98.5 F 98.4 F Pulse Rate 80 75 Respiratory 18 18 Rate Blood Pressure 114/81 134/86 O2 Sat by Pulse 100 99 Oximetry Medical Decision Making - Medical Decision Making Was pt. sent in by a medical professional or institution (, PA, INSTRUCTIONAL DESIGNER, urgent care, hospital, or [place] [facility] facility...) When possible be specific @ -No Did you speak to anyone other than the patient for history (EMS, parent, family, police, friend...)? What history was obtained from this source @ -No Did you review nursing and triage notes (agree or disagree)? Why? @ -I reviewed and agree with nursing and triage notes Were old charts reviewed (outside hosp., previous admission, EMS record, old EKG, old radiological studies, urgent care reports/EKG's, [place] [facility] facility records)? Report findings @ -Yes reviewed ER visit from 05-13-2024. Patient seen for similar complaint. Urine at that time unremarkable. KUB unremarkable. Patient discharged with general surgery follow-up. Differential Diagnosis (chest pain, altered mental status, abdominal pain women, abdominal pain men, vaginal bleeding, weakness, fever, dyspnea, syncope, headache, dizziness, GI bleed, back pain, seizure, CVA, palpatations, mental health, musculoskeletal)? @ -Differential Back Pain: Strain, zoster, cauda equina syndrome, epidural abscess, vertebral osteomyelitis, discitis, fracture, subluxation, disc herniation, DJD, spinal stenosis, dissection, AAA, pancreatitis, peptic ulcer disease, pyelonephritis, kidney stone, this is not meant to be an all-inclusive list. EKG interpreted by me (3pts min.). @ -None done X-rays interpreted by me (1pt min.). @ -None done CT interpreted by me (1pt min.). @ -None done U/S interpreted by me (1pt. min.). @ -None done What testing was considered but not performed or refused? (CT, X-rays, U/S, labs)? Why? @ -CT abdomen pelvis considered to rule out calculus but was not performed. Patient has had numerous CT scans in the past. Due to radiation risk laboratory studies and urinalysis will be obtained prior to imaging. Patient is agreeable. What meds were considered but not given or refused? Why? @ -None Did you discuss the management of the patient with other professionals (professionals i.e. , PA, INSTRUCTIONAL DESIGNER, lab, RT, psych nurse, perinatal social worker, information technology audit manager, teacher, air support control officer, mental health case manager)? Give summary @ -No Was smoking cessation discussed for >3mins.? @ -No Was critical care preformed (if so, how long)? @ -No Were there social determinants of health that impacted care today? How? ( Homelessness, low income, unemployed, alcoholism, drug addiction, transportation, low edu. Level, literacy, decrease access to med. care, assisted, rehab)? @ -No Was there de-escalation of care discussed even if they declined (Discuss DNR or withdrawal of care, Hospice)? DNR status @ -No What co-morbidities impacted this encounter? (DM, HTN, Smoking, COPD, CAD, Cancer, CVA, ARF, Chemo, Hep., AIDS, mental health diagnosis, sleep apnea, morbid obesity)? @ -None Was patient admitted / discharged? Hospital course, mention meds given and route, prescriptions, significant lab abnormalities, going to OR and other pertinent info. @ -Discharged. 33-year-old female presenting to the ER with a chief complaint of back pain. History and physical exam completed. Vitals within normal limits. Patient in no signs of acute distress nontoxic-appearing. Exam remarkable for left flank pain to palpitation. No overlying skin changes. No abdominal tenderness, rebound or guarding. Normal bowel sounds. Laboratory studies and urinalysis will be obtained prior to imaging as patient has had nu merous CT scans in the past and is following up closely with general surgery outpatient. She reports follow-up on Saturday. Laboratory studies remarkable for a hemoglobin of 11.1 which is chronic in nature. CMP unremarkable. Urinalysis unremarkable. hCG negative. Patient received Toradol, Tylenol and lidocaine patch for pain control in the ER. Strict return parameters discussed. Patient discharged in stable condition with follow-up to PCP. Patient verbally expressed understanding and agreement with care plan. Case discussed with ED attending, Dr. Alejandro. Undiagnosed new problem with uncertain prognosis? @ -No Drug Therapy requiring intensive monitoring for toxicity (Heparin, Nitro, Insulin, Cardizem)? @ -No Were any procedures done? @ -No Diagnosis/symptom? @ -Back pain Acute, or Chronic, or Acute on Chronic? @ -Acute Uncomplicated (without systemic symptoms) or Complicated (systemic symptoms)? @ -Uncomplicated Side effects of treatment? @ -No Exacerbation, Progression, or Severe Exacerbation? @ -No Poses a threat to life or bodily function? How? (Chest pain, [place], [place], pneumonia, PE, COPD, DKA, ARF, appy, cholecystitis, CVA, Diverticulitis, Homicidal, Suicid al, threat to staff... and all critical care pts) @ -No - Lab Data Result diagrams: 05/15/24 10:09 05/15/24 10:09 Lab Results 05/15/24 05/15/24 05/15/24 Range/Units 10:09 10: 10:09 WBC 4.5 (3.8-10.6) k/uL RBC 3.78 L (3.80-5.40) m/uL Hgb 11.1 L (11.4-16.0) gm/dL Hct 34.2 (34.0-46.0) % MCV 90.5 (80.0-100.0) fL MCH 29.5 (25.0-35.0) pg MCHC 32.5 (31.0-37.0) g/dL RDW 13.6 (11.5-15.5) % Plt Count 162 (150-450) k/uL MPV 7.5 Neutrophils % 63 % Lymphocytes % 29 % Monocytes % 4 % Eosinophils % 1 % Basophils % 0 % Neutrophils # 2.9 (1.3-7.7) k/uL Lymphocytes # 1.3 (1.0-4.8) k/uL Monocytes # 0.2 (0-1.0) k/uL Eosinophils # 0.0 (0-0.7) k/uL Basophils # 0.0 (0-0.2) k/uL Sodium 140 (137-145) mmol/L Potassium 4.1 (3.5-5.1) mmol/L Chloride 104 (98-107) mmol/L Carbon Dioxide 32 H (22-30) mmol/L Anion Gap 4 mmol/L BUN 15 (7-17) mg/dL Creatinine 0.69 (0.52-1.04) mg/dL Est GFR (CKD-EPI)AfAm >90 (>60 ml/min/1.73 sqM) Est GFR (CKD-EPI)NonAf >90 (>60 ml/min/1.73 sqM) Glucose 92 (74-99) mg/dL Calcium 9.8 (8.4-10.2) mg/dL Total Bilirubin 1.3 (0.2-1.3) mg/dL AST 28 (14-36) U/L ALT 22 (4-34) U/L Alkaline Phosphatase 113 (38-126) U/L Total Protein 7.0 (6.3-8.2) g/dL Albumin 4.2 (3.5-5.0) g/dL Urine Color Urine Appearance (Clear) Urine pH (5.0-8.0) Ur Specific [place] (1.001-1.035) Urine Protein (Negative) Urine Glucose (UA) (Negative) Urine Ketones (Negative) Urine Blood (Negative) Urine Nitrite (Negative) Urine Bilirubin (Negative) Urine Urobilinogen (<2.0) mg/dL Ur Leukocyte Esterase (Negative) Urine HCG, Qual Not Detected (Not Detectd) 05/15/24 Range/Units 10:09 WBC (3.8-10.6) k/uL RBC (3.80-5.40) m/uL Hgb (11.4-16.0) gm/dL Hct (34.0-46.0) % MCV (80.0-100.0) fL MCH (25.0-35.0) pg MCHC (31.0-37.0) g/dL RDW (11.5-15.5) % Plt Count (150-450) k/uL MPV Neutrophils % % Lymphocytes % % Monocytes % % Eosinophils % % Basophils % % Neutrophils # (1.3-7.7) k/uL Lymphocytes # (1.0-4.8) k/uL Monocytes # (0-1.0) k/uL Eosinophils # (0-0.7) k/uL Basophils # (0-0.2) k/uL Sodium (137-145) mmol/L Potassium (3.5-5.1) mmol/L Chloride (98-107) mmol/L Carbon Dioxide (22-30) mmol/L Anion Gap mmol/L BUN (7-17) mg/dL Creatinine (0.52-1.04) mg/dL Est GFR (CKD-EPI)AfAm (>60 ml/min/1.73 sqM) Est GFR (CKD-EPI)NonAf (>60 ml/min/1.73 sqM) Glucose (74-99) mg/dL Calcium (8.4-10.2) mg/dL Total Bilirubin (0.2-1.3) mg/dL AST (14-36) U/L ALT (4-34) U/L Alkaline Phosphatase (38-126) U/L Total Protein (6.3-8.2) g/dL Albumin (3.5-5.0) g/dL Urine Color Colorless Urine Appearance Clear (Clear) Urine pH 6.5 (5.0-8.0) Ur Specific [place] 1.009 (1.001-1.035) Urine Protein Negative (Negative) Urine Glucose (UA) Negative (Negative) Urine Ketones Negative (Negative) Urine Blood Negative (Negative) Urine Nitrite Negative (Negative) Urine Bilirubin Negative (Negative) Urine Urobilinogen <2.0 (<2.0) mg/dL Ur Leukocyte Esterase Negative (Negative) Urine HCG, Qual (Not Detectd) Disposition Clinical Impression: Back pain Disposition: HOME SELF-CARE Condition: Stable Instructions (If sedation given, give patient instructions): Acute Low Back Pain (ED) Additional Instructions: Follow-up with general surgery as scheduled on Saturday. Continue taking naproxen and Norflex. I also recommend [id number] Tylenol and lidocaine patches. Return to the ER for any new or worsening concerns. Is patient prescribed a controlled substance at d/c from ED?: No Referrals: None,Stated [Primary Care Provider] - 1-2 days Forms: Area PCPs Time of Disposition: 11:22
[2024-05-15] MEDS: ACETAMINOPHEN TAB 500 MG TAB PO STA (11:14)
[2024-05-15] MEDS: LIDOCAINE 4% PATCH TOPICAL ONE (11:15)
[2024-05-15 11:49] VITALS: BP 134/86; PULSE 75; TEMP 98.4
== END 2024-05-15 11:49 | disposition home or self-care (01) ==
LOC: EC 08:36
CPT/HCPCS: 36415; 80053; 81003; 81025; 85025; 96374; 99283

== ENCOUNTER 2024-05-24 18:11 | Emergency (ER) | payer OTHER ==
--- NOTE | 2024-05-24 18:49 | ED ---
General Adult HPI - General Chief complaint: Abdominal Pain Stated complaint: Pelvic/back pain Time Seen by Provider: 05/24/24 18:24 Source: patient, RN notes reviewed Mode of arrival: ambulatory Limitations: no limitations - History of Present Illness Initial comments: 3-year-old female with past medical history of chronic pelvic pain presents to the emergency department for evaluation of abdominal pain. Patient states that over the past couple of days she has started experiencing her pain again. She notes that the pain is chronic. She reports the pain in her suprapubic region. She notes that it radiates to her back. She denies fever, chills, diarrhea. She admits to nausea without vomiting. Denies any vaginal bleeding, urinary symptoms. - Related Data Home Medications Medication Instructions Recorded Confirmed Omeprazole 40 mg PO HS 03/16/24 05/13/24 Orphenadrine Citrate [Orphenadrine 100 mg PO BID PRN 04/02/24 05/13/24 Citrate ER] Naproxen [Naprosyn] 500 mg PO BID PRN 05/13/24 05/13/24 Allergies Allergy/AdvReac Type Severity Reaction Status Date / Time sulfamethoxazole Allergy Severe Anaphylaxis Verified 05/24/24 18:18 [From Bactrim] trimethoprim [From Bactrim] Allergy Severe Anaphylaxis Verified 05/24/24 18:18 adhesive tape Allergy Rash/Hives Verified 05/24/24 18:18 aloe vera Allergy Rash/Hives Verified 05/24/24 18:18 amoxicillin [From Augmentin] Allergy Itching Verified 05/24/24 18:18 azithromycin Allergy Rash/Hives Verified 05/24/24 18:18 cephalexin Allergy Rash/Hives Verified 05/24/24 18:18 clavulanic acid Allergy Itching Verified 05/24/24 18:18 [From Augmentin] metronidazole [From Flagyl] Allergy Rash/Hives Verified 05/24/24 18:18 Penicillins Allergy Rash/Hives Verified 05/24/24 18:18 alprazolam [From Xanax] AdvReac MAKES Verified 05/24/24 18:18 PARANOID dicyclomine [From Bentyl] AdvReac constipatio Verified 05/24/24 18:18 n Review of Systems ROS Statement: Those systems with pertinent positive or pertinent negative responses have been documented in the HPI. ROS Other: All systems not noted in ROS Statement are negative. Past Medical History Past Medical History: Blood Disorder, GERD/Reflux Additional Past Medical History / Comment(s): Endometriosis, polycystic ovarian syndrome. IRON DEFICIENCY ANEMIA. Stomach Ulcer. Hx ovarian cyst. History of Any Multi-Drug Resistant Organisms: None Reported Past Surgical History: Ablation, Appendectomy, Section, Cholecystectomy, Hernia Repair, Hysterectomy, Tubal Ligation, Uterine Ablation Additional Past Surgical History / Comment(s): Laparoscopy X2, Section X3, right ovary and right tube removed, then total hysterectomy including left ovary and left fallopian tube, cyst removed from chest, ADHESION REMOVAL FROM PAST CSECTION, vaginal/pelvic biopsy. Scar tissure removal abdomen L upper lower Past Anesthesia/Blood Transfusion Reactions: No Reported Reaction Past Psychological History: Anxiety, Depression Smoking Status: Never smoker Past Alcohol Use History: Occasional Past Drug Use History: None Reported - Past Family History Mother Family Medical History: Deep Vein Thrombosis (DVT), Hyperlipidemia Additional Family Medical History / Comment(s): Depression and anxiety. DVT to arm after surgery. General Exam Limitations: no limitations General appearance: alert, in no apparent distress Head exam: Present: atraumatic, normocephalic, normal inspection Eye exam: Present: normal appearance, PERRL, EOMI. Absent: scleral icterus, conjunctival injection, periorbital swelling ENT exam: Present: normal exam, mucous membranes moist Respiratory exam: Present: normal lung sounds bilaterally. Absent: respiratory distress, wheezes, rales, rhonchi, stridor Cardiovascular Exam: Present: regular rate, normal rhythm, normal heart sounds. Absent: systolic murmur, diastolic murmur, rubs, gallop, clicks GI/Abdominal exam: Present: soft, normal bowel sounds. Absent: distended, tenderness, guarding, rebound, rigid Extremities exam: Present: normal inspection, full ROM, normal capillary refill. Absent: tenderness, pedal edema, joint swelling, calf tenderness Neurological exam: Present: alert, oriented X3 Psychiatric exam: Present: normal affect, normal mood Skin exam: Present: warm, dry, intact, normal color. Absent: rash Course Vital Signs 05/24/24 18:16 Temperature 97.8 F Pulse Rate 94 Respiratory 16 Rate Blood Pressure 132/82 O2 Sat by Pulse 100 Oximetry Medical Decision Making - Medical Decision Making Was pt. sent in by a medical professional or institution (Dr., PA, ADAPTIVE PHYSICAL EDUCATION SPECIALIST, urgent care, hospital, or snf...) When possible be specific @ -[No] Did you speak to anyone other than the patient for history (EMS, parent, family, police, friend...)? What history was obtained from this source @ -[No] Did you review nursing and triage notes (agree or disagree)? Why? @ -[I reviewed and agree with nursing and triage notes] Were old charts reviewed (outside hosp., previous admission, EMS record, old EKG, old radiological studies, urgent care reports/EKG's, snf records)? Report findings @ -[No old charts were reviewed] Differential Diagnosis (chest pain, altered mental status, abdominal pain women, abdominal pain men, vaginal bleeding, weakness, fever, dyspnea, syncope, headache, dizziness, GI bleed, back pain, seizure, CVA, palpatations, mental health, musculoskeletal)? @ -[Differential Abdominal Pain Women: Appendicitis, Cholecystitis, diverticulosis, ischemic bowel, pancreatitis, hepatitis, UTI, gastroenteritis, AAA, incarcerated hernia, bowel obstruction, constipation, inflammatory bowel, hepatitis, peptic ulcer disease, splenic infarction, perforated viscus, vulvitis, ovarian torsion, PID, kidney stone, placenta abruption, this is not meant to be an all-inclusive list ] EKG interpreted by me (3pts min.). @ -None X-rays interpreted by me (1pt min.). @ -[None done] CT interpreted by me (1pt min.). @ -[None done] U/S interpreted by me (1pt. min.). @ -[None done] What testing was considered but not performed or refused? (CT, X-rays, U/S, labs)? Why? @ -[None] What meds were considered but not given or refused? Why? @ -[None] Did you discuss the management of the patient with other professionals (professionals i.e. ANALI Leroy, ADAPTIVE PHYSICAL EDUCATION SPECIALIST, lab, RT, psych nurse, social media content specialist, snow ranger, teacher, state wildlife officer, keycase assembler)? Give summary @ -[No] Was smoking cessation discussed for >3mins.? @ -[No] Was critical care preformed (if so, how long)? @ -[No] Were there social determinants of health that impacted care today? How? (Homelessness, low income, unemployed, alcoholism, drug addiction, transportation, low edu. Level, literacy, decrease access to med. care, [facility], rehab)? @ -[No] Was there de-escalation of care discussed even if they declined (Discuss DNR or withdrawal of care, Hospice)? DNR status @ -[No] What co-morbidities impacted this encounter? (DM, HTN, Smoking, COPD, CAD, Cancer, CVA, ARF, Chemo, Hep., AIDS, mental health diagnosis, sleep apnea, morbid obesity)? @ -[None] Was patient admitted / discharged? Hospital course, mention meds given and route, prescriptions, significant lab abnormalities, going to OR and other pertinent info. @ -[hospital course] Undiagnosed new problem with uncertain prognosis? @ -[No] Drug Therapy requiring intensive monitoring for toxicity (Heparin, Nitro, Insulin, Cardizem)? @ -[No] Were any procedures done? @ -[No] Diagnosis/symptom? @ -[default] Acute, or Chronic, or Acute on Chronic? @ -[default] Uncomplicated (without systemic symptoms) or Complicated (systemic symptoms)? @ -[default] Side effects of treatment? @ -[No] Exacerbation, Progression, or Severe Exacerbation? @ -[No] Poses a threat to life or bodily function? How? (Chest pain, [place], [place], pneumonia, PE, COPD, DKA, ARF, appy, cholecystitis, CVA, Diverticulitis, Homicidal, Suicidal, threat to staff... and all critical care pts) @ -[No] - Lab Data Result diagrams: 05/24/24 19:59 05/24/24 19:59 Lab Results 05/24/24 05/24/24 05/24/24 Range/Units 19:59 19:59 19:59 WBC 5.2 (3.8-10.6) k/uL RBC 3.60 L (3.80-5.40) m/uL Hgb 11.0 L (11.4-16.0) gm/dL Hct 32.7 L (34.0-46.0) % MCV 90.9 (80.0-100.0) fL MCH 30.4 (25.0-35.0) pg MCHC 33.5 (31.0-37.0) g/dL RDW 13.9 (11.5-15.5) % Plt Count 195 (150-450) k/uL MPV 8.1 Neutrophils % 65 % Lymphocytes % 27 % Monocytes % 6 % Eosinophils % 0 % Basophils % 0 % Neutrophils # 3.4 (1.3-7.7) k/uL Lymphocytes # 1.4 (1.0-4.8) k/uL Monocytes # 0.3 (0-1.0) k/uL Eosinophils # 0.0 (0-0.7) k/uL Basophils # 0.0 (0-0.2) k/uL Sodium (137-145) mmol/L Potassium (3.5-5.1) mmol/L Chloride (98-107) mmol/L Carbon Dioxide (22-30) mmol/L Anion Gap mmol/L BUN (7-17) mg/dL Creatinine (0.52-1.04) mg/dL Est GFR (CKD-EPI)AfAm (>60 ml/min/1.73 sqM) Est GFR (CKD-EPI)NonAf (>60 ml/min/1.73 sqM) Glucose (74-99) mg/dL Calcium (8.4-10.2) mg/dL Total Bilirubin (0.2-1.3) mg/dL AST (14-36) U/L ALT (4-34) U/L Alkaline Phosphatase (38-126) U/L Total Protein (6.3-8.2) g/dL Albumin (3.5-5.0) g/dL Amylase (30-110) U/L Lipase (23-300) U/L Urine Color Colorless Urine Appearance Clear (Clear) Urine pH 6.5 (5.0-8.0) Ur Specific [place] 1.012 (1.001-1.035) Urine Protein Negative (Negative) Urine Glucose (UA) Negative (Negative) Urine Ketones Negative (Negative) Urine Blood Negative (Negative) Urine Nitrite Negative (Negative) Urine Bilirubin Negative (Negative) Urine Urobilinogen <2.0 (<2.0) mg/dL Ur Leukocyte Esterase Negative (Negative) Urine HCG, Qual Not Detected (Not Detectd) 05/24/24 Range/Units 19:59 WBC (3.8-10.6) k/uL RBC (3.80-5.40) m/uL Hgb (11.4-16.0) gm/dL Hct (34.0-46.0) % MCV (80.0-100.0) fL MCH (25.0-35.0) pg MCHC (31.0-37.0) g/dL RDW (11.5-15.5) % Plt Count (150-450) k/uL MPV Neutrophils % % Lymphocytes % % Monocytes % % Eosinophils % % Basophils % % Neutrophils # (1.3-7.7) k/uL Lymphocytes # (1.0-4.8) k/uL Monocytes # (0-1.0) k/uL Eosinophils # (0-0.7) k/uL Basophils # (0-0.2) k/uL Sodium 140 (137-145) mmol/L Potassium 4.0 (3.5-5.1) mmol/L Chloride 107 (98-107) mmol/L Carbon Dioxide 31 H (22-30) mmol/L Anion Gap 2 mmol/L BUN 20 H (7-17) mg/dL Creatinine 0.72 (0.52-1.04) mg/dL Est GFR (CKD-EPI)AfAm >90 (>60 ml/min/1.73 sqM) Est GFR (CKD-EPI)NonAf >90 (>60 ml/min/1.73 sqM) Glucose 92 (74-99) mg/dL Calcium 9.5 (8.4-10.2) mg/dL Total Bilirubin 0.8 (0.2-1.3) mg/dL AST 34 (14-36) U/L ALT 39 H (4-34) U/L Alkaline Phosphatase 146 H (38-126) U/L Total Protein 6.9 (6.3-8.2) g/dL Albumin 4.1 (3.5-5.0) g/dL Amylase 57 (30-110) U/L Lipase 42 (23-300) U/L Urine Color Urine Appearance (Clear) Urine pH (5.0-8.0) Ur Specific [place] (1.001-1.035) Urine Protein (Negative) Urine Glucose (UA) (Negative) Urine Ketones (Negative) Urine Blood (Negative) Urine Nitrite (Negative) Urine Bilirubin (Negative) Urine Urobilinogen (<2.0) mg/dL Ur Leukocyte Esterase (Negative) Urine HCG, Qual (Not Detectd) Disposition Clinical Impression: Abdominal pain Disposition: HOME SELF-CARE Condition: Stable Instructions (If sedation given, give patient instructions): Abdominal Pain (ED) Additional Instructions: Please follow up with your FIRE PROTECTION SPECIALIST. Return to the emergency department for new or worsening symptoms. Is patient prescribed a controlled substance at d/c from ED?: No Referrals: None,Stated [Primary Care Provider] - 1-2 days
[2024-05-24] MEDS: ONDANSETRON 4 MG/2 ML VIAL IVP STA (20:04)
[2024-05-24] MEDS: KETOROLAC 15 MG/ML 1 ML VIAL IVP STA ×2 (20:04→20:49)
[2024-05-24 20:09] LABS: Basophils % (A) 0 %; Eosinophils % (A) 0 %; HCT 32.7 % (34.0-46.0); Lymphocytes # (A) 1.4 k/uL (1.0-4.8); Lymphocytes % (A) 27 %; MCH 30.4 pg (25.0-35.0); MCHC 33.5 g/dL (31.0-37.0); MCV 90.9 fL (80.0-100.0); Mean Platelet Volume 8.1; Monocytes # (A) 0.3 k/uL (0-1.0); Monocytes % (A) 6 %; Neutrophils # (A) 3.4 k/uL (1.3-7.7); Neutrophils % (A) 65 %; Platelet Count 195 k/uL (150-450); RDW 13.9 % (11.5-15.5); WBC 5.2 k/uL (3.8-10.6)
[2024-05-24 20:13] LABS: Appearance,Urine Clear (Clear); Bilirubin,Urine Negative (Negative); Blood,Urine Negative (Negative); Color,Urine Colorless; Glucose,Urine (UA) Negative (Negative); Ketones,Urine Negative (Negative); Leukocyte Esterase,Urine Negative (Negative); Nitrite,Urine Negative (Negative); PH, Urine 6.5 (5.0-8.0); Protein,Urine Negative (Negative); Specific Gravity,Urine 1.012 (1.001-1.035); Urobilinogen,Urine <2.0 mg/dL (<2.0)
[2024-05-24 20:20] LABS: ALT 39 U/L (4-34); AST 34 U/L (14-36); African American GFR (CKD) >90 (>60 ml/min/1.73 sqM); Albumin 4.1 g/dL (3.5-5.0); Alkaline Phosphatase 146 U/L (38-126); Amylase 57 U/L (30-110); Anion Gap 2 mmol/L; Blood Urea Nitrogen 20 mg/dL (7-17); Calcium 9.5 mg/dL (8.4-10.2); Carbon Dioxide 31 mmol/L (22-30); Chloride 107 mmol/L (98-107); Glucose 92 mg/dL (74-99); Lipase 42 U/L (23-300); Non-African American GFR(CKD) >90 (>60 ml/min/1.73 sqM); Sodium 140 mmol/L (137-145); Total Bilirubin 0.8 mg/dL (0.2-1.3); Total Protein 6.9 g/dL (6.3-8.2)
[2024-05-24] MEDS: diphenhydrAMINE 50 MG/ML 1 ML VIAL IVP STA (20:46)
[2024-05-24] MEDS: LIDOCAINE 4% PATCH TOPICAL ONE (20:47)
[2024-05-24 21:17] VITALS: BP 105/72; PULSE 86; RESP 18; TEMP 98.4
== END 2024-05-24 21:08 | disposition home or self-care (01) ==
LOC: EC 18:11
DX: R10.2 Pelvic and perineal pain (principal); Z88.0 Allergy status to penicillin; Z88.1 Allergy status to other antibiotic agents; Z88.2 Allergy status to sulfonamides; Z88.8 Allergy status to other drugs, medicaments and biological substances; Z91.09 Other allergy status, other than to drugs and biological substances
CPT/HCPCS: 36415; 80053; 82150; 83690; 85025; 81003; 81025; 99284; 96374; 96375; 96376; J2405; J1885

== ENCOUNTER 2024-05-27 01:35 | Emergency (ER) | payer OTHER ==
[2024-05-27 01:38] VITALS: TEMP 98.1
[2024-05-27 02:51] LABS: Appearance,Urine Clear (Clear); Basophils % (A) 0 %; Bilirubin,Urine Negative (Negative); Blood,Urine Negative (Negative); Color,Urine Colorless; Eosinophils # (A) 0.1 k/uL (0-0.7); Eosinophils % (A) 1 %; Glucose,Urine (UA) Negative (Negative); HCT 33.5 % (34.0-46.0); HGB 11.2 gm/dL (11.4-16.0); Ketones,Urine Negative (Negative); Leukocyte Esterase,Urine Negative (Negative); Lymphocytes # (A) 2.2 k/uL (1.0-4.8); Lymphocytes % (A) 36 %; MCH 30.6 pg (25.0-35.0); MCHC 33.6 g/dL (31.0-37.0); MCV 91.2 fL (80.0-100.0); Mean Platelet Volume 7.8; Monocytes # (A) 0.3 k/uL (0-1.0); Monocytes % (A) 6 %; Neutrophils # (A) 3.4 k/uL (1.3-7.7); Neutrophils % (A) 56 %; Nitrite,Urine Negative (Negative); Platelet Count 217 k/uL (150-450); Protein,Urine Negative (Negative); RBC 3.67 m/uL (3.80-5.40); RDW 14.1 % (11.5-15.5); Specific Gravity,Urine 1.012 (1.001-1.035); Urobilinogen,Urine <2.0 mg/dL (<2.0); WBC 6.1 k/uL (3.8-10.6)
[2024-05-27 03:02] LABS: ALT 63 U/L (4-34); AST 59 U/L (14-36); African American GFR (CKD) >90 (>60 ml/min/1.73 sqM); Albumin 4.4 g/dL (3.5-5.0); Alkaline Phosphatase 143 U/L (38-126); Anion Gap 8 mmol/L; Blood Urea Nitrogen 19 mg/dL (7-17); Calcium 9.8 mg/dL (8.4-10.2); Carbon Dioxide 25 mmol/L (22-30); Chloride 106 mmol/L (98-107); Glucose 98 mg/dL (74-99); Lipase 56 U/L (23-300); Non-African American GFR(CKD) >90 (>60 ml/min/1.73 sqM); Sodium 139 mmol/L (137-145); Total Bilirubin 0.7 mg/dL (0.2-1.3); Total Protein 7.3 g/dL (6.3-8.2)
[2024-05-27 03:27] LABS: Potassium 4.3 mmol/L (3.5-5.1)
[2024-05-27] MEDS: KETOROLAC 15 MG/ML 1 ML VIAL IVP STA (03:29)
[2024-05-27] MEDS: ONDANSETRON 4 MG/2 ML VIAL IVP STA (03:29)
--- NOTE | 2024-05-27 04:14 | XR ---
EXAM: XR Abdomen, 1 View CLINICAL HISTORY: abdominal pain TECHNIQUE: Frontal supine view of the abdomen/pelvis. COMPARISON: 05/13/24 FINDINGS: Gastrointestinal tract: Unremarkable. No dilation. Organs: Cholecystectomy clips. Bones/joints: No fracture or dislocation. IMPRESSION: No acute findings.
--- NOTE | 2024-05-27 05:02 | ED ---
General Adult HPI - General Chief complaint: Abdominal Pain Stated complaint: abd pain Time Seen by Provider: 05/27/24 01:49 Source: patient Mode of arrival: ambulatory - History of Present Illness Initial comments: 33-year-old female who presents emergency department reporting abdominal pain. Patient states that this evening she began having left lower abdominal pain after a bowel movement. She describes it as a sharp shooting sensation which makes her nauseated. Denies vomiting. Denies changes in her urination to include dysuria, hematuria or difficulty voiding. Denies black or bloody stools. Does admit to some diarrhea. Patient has had multiple abdominal surgeries including hysterectomy, bilateral salpingo-oophorectomy, appendectomy, cholecystectomy. Patient follows with a surgery group out of [place]. She does have an appointment on Saturday. She denies any fevers. No chest pain or difficulty breathing. No other alleviating, precipitating or modifying factors - Related Data Home Medications Medication Instructions Recorded Confirmed Omeprazole 40 mg PO HS 03/16/24 05/13/24 Orphenadrine Citrate [Orphenadrine 100 mg PO BID PRN 04/02/24 05/13/24 Citrate ER] Naproxen [Naprosyn] 500 mg PO BID PRN 05/13/24 05/13/24 Allergies Allergy/AdvReac Type Severity Reaction Status Date / Time sulfamethoxazole Allergy Severe Anaphylaxis Verified 05/27/24 01:38 [From Bactrim] trimethoprim [From Bactrim] Allergy Severe Anaphylaxis Verified 05/27/24 01:38 adhesive tape Allergy Rash/Hives Verified 05/27/24 01:38 aloe vera Allergy Rash/Hives Verified 05/27/24 01:38 amoxicillin [From Augmentin] Allergy Itching Verified 05/27/24 01:38 azithromycin Allergy Rash/Hives Verified 05/27/24 01:38 cephalexin Allergy Rash/Hives Verified 05/27/24 01:38 clavulanic acid Allergy Itching Verified 05/27/24 01:38 [From Augmentin] metronidazole [From Flagyl] Allergy Rash/Hives Verified 05/27/24 01:38 Penicillins Allergy Rash/Hives Verified 05/27/24 01:38 alprazolam [From Xanax] AdvReac MAKES Verified 05/27/24 01:38 PARANOID dicyclomine [From Bentyl] AdvReac constipatio Verified 05/27/24 01:38 n Review of Systems ROS Statement: Those systems with pertinent positive or pertinent negative responses have been documented in the HPI. ROS Other: All systems not noted in ROS Statement are negative. Past Medical History Past Medical History: Blood Disorder, GERD/Reflux Additional Past Medical History / Comment(s): Endometriosis, polycystic ovarian syndrome. IRON DEFICIENCY ANEMIA. Stomach Ulcer. Hx ovarian cyst. History of Any Multi-Drug Resistant Organisms: None Reported Past Surgical History: Ablation, Appendectomy, Section, Cholecystectomy , Hernia Repair, Hysterectomy, Tubal Ligation, Uterine Ablation Additional Past Surgical History / Comment(s): Laparoscopy X2, Section X3, right ovary and right tube removed, then total hysterectomy including left ovary and left fallopian tube, cyst removed from chest, ADHESION REMOVAL FROM PAST CSECTION, vaginal/pelvic biopsy. Scar tissure removal abdomen L upper lower Past Anesthesia/Blood Transfusion Reactions: No Reported Reaction Past Psychological History: Anxiety, Depression Smoking Status: Never smoker Past Alcohol Use History: Occasional Past Drug Use History: None Reported - Past Family History Mother Family Medical History: Deep Vein Thrombosis (DVT), Hyperlipidemia Additional Family Medical History / Comment(s): Depression and anxiety. DVT to arm after surgery. General Exam General appearance: alert, in no apparent distress Head exam: Present: atraumatic, normocephalic, normal inspection Eye exam: Present: normal appearance, PERRL, EOMI. Absent: scleral icterus, conjunctival injection, periorbital swelling ENT exam: Present: normal exam, mucous membranes moist Neck exam: Present: normal inspection. Absent: tenderness, meningismus, lymphadenopathy Respiratory exam: Present: normal lung sounds bilaterally. Absent: respiratory distress, wheezes, rales, rhonchi, stridor Cardiovascular Exam: Present: regular rate, normal rhythm, normal heart sounds. Absent: systolic murmur, diastolic murmur, rubs, gallop, clicks GI/Abdominal exam: Present: soft, tenderness (Left lower quadrant), normal bowel sounds. Absent: distended, guarding, rebound, rigid Extremities exam: Present: normal inspection, full ROM, normal capillary refill. Absent: tenderness, pedal edema, joint swelling, calf tenderness Back exam: Present: normal inspection Neurological exam: Present: alert, oriented X3, CN II-XII intact Psychiatric exam: Present: normal affect, normal mood Skin exam: Present: warm, dry, intact, normal color. Absent: rash Course Vital Signs 05/27/24 05/27/24 05/27/24 01:36 04:00 05:31 Temperature 98.1 F Pulse Rate 104 H 69 68 Respiratory 18 16 16 Rate Blood Pressure 141/92 111/68 116/70 O2 Sat by Pulse 98 97 97 Oximetry Medical Decision Making - Medical Decision Making Was pt. sent in by a medical professional or institution (, PA, OPTOMETRY ASSISTANT, urgent care, hospital, or correction...) When possible be specific @ -No Did you speak to anyone other than the patient for history (EMS, parent, family, police, friend...)? What history was obtained from this source @ -No Did you review nursing and triage notes (agree or disagree)? Why? @ -I reviewed and agree with nursing and triage notes Were old charts reviewed (outside hosp., previous admission, EMS record, old EKG, old radiological studies, urgent care reports/EKG's, correction records)? Report findings @ -I reviewed the patient's medical record. Demonstrates that she has had several CT scans of her abdomen and pelvis Differential Diagnosis (chest pain, altered mental status, abdominal pain women, abdominal pain men, vaginal bleeding, weakness, fever, dyspnea, syncope, headache, dizziness, GI bleed, back pain, seizure, CVA, palpatations, mental health, musculoskeletal)? @ -Differential Abdominal Pain Women: Appendicitis, Cholecystitis, diverticulosis, ischemic bowel, pancreatitis, he patitis, UTI, gastroenteritis, AAA, incarcerated hernia, bowel obstruction, constipation, inflammatory bowel, hepatitis, peptic ulcer disease, splenic infarction, perforated viscus, vulvitis, ovarian torsion, PID, kidney stone, placenta abruption, this is not meant to be an all-inclusive list EKG interpreted by me (3pts min.). @ -No obstructive process X-rays interpreted by me (1pt min.). @ -None done CT interpreted by me (1pt min.). @ -None done U/S interpreted by me (1pt. min.). @ -None done What testing was considered but not performed or refused? (CT, X-rays, U/S, labs)? Why? @ -CT was considered however the patient has had several CTs of her abdomen and pelvis previously. I informed the patient of the risks of continued radiation exposure and at this time she did decide to forego CAT scan imaging What meds were considered but not given or refused? Why? @ -None Did you discuss the management of the patient with other professionals (professionals i.e. , PA, OPTOMETRY ASSISTANT, lab, RT, psych nurse, social insurance administrator, hotel concierge, teacher, wildlife officer, case filler)? Give summary @ -No Was smoking cessation discussed for >3mins.? @ -No Was critical care preformed (if so, how long)? @ -No Were there social determinants of health that impacted care today? How? (Homelessness, low income, unemployed, alcoholism, drug addiction, transportation, low edu. Level, literacy, decrease access to med. care, half-way, rehab)? @ -No Was there de-escalation of care discussed even if they declined (Discuss DNR or withdrawal of care, Hospice)? DNR status @ -No What co-morbidities impacted this encounter? (DM, HTN, Smoking, COPD, CAD, Cancer, CVA, ARF, Chemo, Hep., AIDS, mental health diagnosis, sleep apnea, morbid obesity)? @ -Endometriosis, chronic abdominal pain Was patient admitted / discharged? Hospital course, mention meds given and route, prescriptions, significant lab abnormalities, going to OR and other pertinent info. @ -Upon arrival patient seen and evaluated in bed 23. Thorough history and physical exam was performed. IV access was established and laboratory studies are conducted. Urinalysis was obtained. KUB was performed. Results are discussed patient. She does feel improved but is continuing to ask for another dose of pain medications. This is provided to the patient. She will be discharged home and instructed to follow-up with her surgeon on Saturday. Return for any new or worsening symptoms. Patient agreeable plan was discharged in stable condition Undiagnosed new problem with uncertain prognosis? @ -No Drug Therapy requiring intensive monitoring for toxicity (Heparin, Nitro, Insulin, Cardizem)? @ -No Were any procedures done? @ -No Diagnosis/symptom? @ -Acute on chronic abdominal pain Acute, or Chronic, or Acute on Chronic? @ -Acute on chronic Uncomplicated (without systemic symptoms) or Complicated (systemic symptoms)? @ -Complicated Side effects of treatment? @ -No Exacerbation, Progression, or Severe Exacerbation? @ -No Poses a threat to life or bodily function? How? (Chest pain, [place], [place], pneumonia, PE, COPD, DKA, ARF, appy, cholecystitis, CVA, Diverticulitis, Homicidal, Suicidal, threat to staff... and all critical care pts) @ -No - Lab Data Result diagrams: 05/27/24 02:35 05/27/24 02:35 Lab Results 05/27/24 05/27/24 05/27/24 Range/Units 02:35 02:35 02:35 WBC 6.1 (3.8-10.6) k/uL RBC 3.67 L (3.80-5.40) m/uL Hgb 11.2 L (11.4-16.0) gm/dL Hct 33.5 L (34.0-46.0) % MCV 91.2 (80.0-100.0) fL MCH 30.6 (25.0-35.0) pg MCHC 33.6 (31.0-37.0) g/dL RDW 14.1 (11.5-15.5) % Plt Count 217 (150-450) k/uL MPV 7.8 Neutrophils % 56 % Lymphocytes % 36 % Monocytes % 6 % Eosinophils % 1 % Basophils % 0 % Neutrophils # 3.4 (1.3-7.7) k/uL Lymphocytes # 2.2 (1.0-4.8) k/uL Monocytes # 0.3 (0-1.0) k/uL Eosinophils # 0.1 (0-0.7) k/uL Basophils # 0.0 (0-0.2) k/uL Sodium 139 (137-145) mmol/L Potassium 4.3 (3.5-5.1) mmol/L Chloride 106 (98-107) mmol/L Carbon Dioxide 25 (22-30) mmol/L Anion Gap 8 mmol/L BUN 19 H (7-17) mg/dL Creatinine 0.74 (0.52-1.04) mg/dL Est GFR (CKD-EPI)AfAm >90 (>60 ml/min/1.73 sqM) Est GFR (CKD-EPI)NonAf >90 (>60 ml/min/1.73 sqM) Glucose 98 (74-99) mg/dL Plasma Lactic Acid [place] (0.7-2.0) mmol/L Calcium 9.8 (8.4-10.2) mg/dL Total Bilirubin 0.7 (0.2-1.3) mg/dL AST 59 H (14-36) U/L ALT 63 H (4-34) U/L Alkaline Phosphatase 143 H (38-126) U/L Total Protein 7.3 (6.3-8.2) g/dL Albumin 4.4 (3.5-5.0) g/dL Lipase 56 (23-300) U/L Urine Color Colorless Urine Appearance Clear (Clear) Urine pH 6.0 (5.0-8.0) Ur Specific [place] 1.012 (1.001-1.035) Urine Protein Negative (Negative) Urine Glucose (UA) Negative (Negative) Urine Ketones Negative (Negative) Urine Blood Negative (Negative) Urine Nitrite Negative (Negative) Urine Bilirubin Negative (Negative) Urine Urobilinogen <2.0 (<2.0) mg/dL Ur Leukocyte Esterase Negative (Negative) 05/27/24 Range/Units 02:35 WBC (3.8-10.6) k/uL RBC (3.80-5.40) m/uL Hgb (11.4-16.0) gm/dL Hct (34.0-46.0) % MCV (80.0-100.0) fL MCH (25.0-35.0) pg MCHC (31.0-37.0) g/dL RDW (11.5-15.5) % Plt Count (150-450) k/uL MPV Neutrophils % % Lymphocytes % % Monocytes % % Eosinophils % % Basophils % % Neutrophils # (1.3-7.7) k/uL Lymphocytes # (1.0-4.8) k/uL Monocytes # (0-1.0) k/uL Eosinophils # (0-0.7) k/uL Basophils # (0-0.2) k/uL Sodium (137-145) mmol/L Potassium (3.5-5.1) mmol/L Chloride (98-107) mmol/L Carbon Dioxide (22-30) mmol/L Anion Gap mmol/L BUN (7-17) mg/dL Creatinine (0.52-1.04) mg/dL Est GFR (CKD-EPI)AfAm (>60 ml/min/1.73 sqM) Est GFR (CKD-EPI)NonAf (>60 ml/min/1.73 sqM) Glucose (74-99) mg/dL Plasma Lactic Acid [place] 1.2 (0.7-2.0) mmol/L Calcium (8.4-10.2) mg/dL Total Bilirubin (0.2-1.3) mg/dL AST (14-36) U/L ALT (4-34) U/L Alkaline Phosphatase (38-126) U/L Total Protein (6.3-8.2) g/dL Albumin (3.5-5.0) g/dL Lipase (23-300) U/L Urine Color Urine Appearance (Clear) Urine pH (5.0-8.0) Ur Specific [place] (1.001-1.035) Urine Protein (Negative) Urine Glucose (UA) (Negative) Urine Ketones (Negative) Urine Blood (Negative) Urine Nitrite (Negative) Urine Bilirubin (Negative) Urine Urobilinogen (<2.0) mg/dL Ur Leukocyte Esterase (Negative) Disposition Clinical Impression: Abdominal pain Disposition: HOME SELF-CARE Condition: Stable Instructions (If sedation given, give patient instructions): Abdominal Pain (ED) Additional Instructions: Please follow up with your surgeon scheduled appointment on Saturday. Return for any new or worsening symptoms Is patient prescribed a controlled substance at d/c from ED?: No Referrals: None,Stated [Primary Care Provider] - 1-2 days Time of Disposition: 05:02
[2024-05-27] MEDS: MORPHINE SULFATE 2 MG/ML SYRINGE IVP ONE (05:22)
[2024-05-27 05:32] VITALS: BP 116/70; PULSE 68; RESP 16
== END 2024-05-27 05:32 | disposition home or self-care (01) ==
LOC: EC 01:35
DX: R10.32 Left lower quadrant pain (principal); Z88.0 Allergy status to penicillin; Z88.1 Allergy status to other antibiotic agents; Z88.2 Allergy status to sulfonamides; Z88.8 Allergy status to other drugs, medicaments and biological substances
CPT/HCPCS: 36415; 80053; 83605; 83690; 85025; 81003; 74018; 99284; 96374; 96375 ×2; J2405; J2270; J1885

== ENCOUNTER 2024-06-02 23:26 | Emergency (ER) | payer OTHER ==
[2024-06-02 23:30] VITALS: RESP 18
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
--- NOTE | 2024-06-03 00:22 | XR ---
EXAM: XR Chest, 2 Views CLINICAL HISTORY: ITS.REASON XR Reason: left rib pain TECHNIQUE: Frontal and lateral views of the chest. COMPARISON: No relevant prior studies available. FINDINGS: Lungs: Unremarkable. No consolidation. Pleural space: Unremarkable. No pneumothorax. Heart: Unremarkable. No cardiomegaly. Mediastinum: Unremarkable. Normal mediastinal contour. Bones/joints: Unremarkable. No acute fracture. IMPRESSION: Normal chest x-rays.
[2024-06-03] MEDS: ACETAMINOPHEN TAB 500 MG TAB PO STA (00:43)
[2024-06-03 00:51] VITALS: BP 123/80; PULSE 90; TEMP 98
== END 2024-06-03 00:55 | disposition home or self-care (01) ==
LOC: EC 23:26
DX: S20.219A Contusion of unspecified front wall of thorax, initial encounter (principal); Z88.0 Allergy status to penicillin; Z88.1 Allergy status to other antibiotic agents; Z88.2 Allergy status to sulfonamides; Z88.8 Allergy status to other drugs, medicaments and biological substances; Z90.49 Acquired absence of other specified parts of digestive tract; X58.XXXA Exposure to other specified factors, initial encounter
CPT/HCPCS: 71046; 99284

== ENCOUNTER 2024-06-29 20:52 | Emergency (ER) | payer OTHER ==
[2024-06-29 20:55] VITALS: RESP 18; TEMP 98.8
--- NOTE | 2024-06-29 21:37 | ED ---
Nausea/Vomiting/Diarrhea HPI - General Chief complaint: Nausea/Vomiting/Diarrhea Stated complaint: Abd pain NVD Time Seen by Provider: 06/29/24 21:00 Source: patient, RN notes reviewed Mode of arrival: ambulatory Limitations: no limitations - History of Present Illness Initial comments: 34-year-old female presents emergency department with chief complaint abdominal pain, nausea vomiting states primary reason is nausea vomiting states she has chronic abdominal pain she is followed by her primary care physician on pain meds. Patient said no recent procedures she has had multiple abdominal surgeries in the past. She is having normal bowel movements. No dysuria no sick contacts. Patient states she cannot get into her primary care today so after work she decided come to the emergency department. - Related Data Home Medications Medication Instructions Recorded Confirmed Omeprazole 40 mg PO HS 03/16/24 05/13/24 Orphenadrine Citrate [Orphenadrine 100 mg PO BID PRN 04/02/24 05/13/24 Citrate ER] Naproxen [Naprosyn] 500 mg PO BID PRN 05/13/24 05/13/24 Allergies Allergy/AdvReac Type Severity Reaction Status Date / Time sulfamethoxazole Allergy Severe Anaphylaxis Verified 06/29/24 20:55 [From Bactrim] trimethoprim [From Bactrim] Allergy Severe Anaphylaxis Verified 06/29/24 20:55 adhesive tape Allergy Rash/Hives Verified 06/29/24 20:55 aloe vera Allergy Rash/Hives Verified 06/29/24 20:55 amoxicillin [From Augmentin] Allergy Itching Verified 06/29/24 20:55 azithromycin Allergy Rash/Hives Verified 06/29/24 20:55 cephalexin Allergy Rash/Hives Verified 06/29/24 20:55 clavulanic acid Allergy Itching Verified 06/29/24 20:55 [From Augmentin] metronidazole [From Flagyl] Allergy Rash/Hives Verified 06/29/24 20:55 Penicillins Allergy Rash/Hives Verified 06/29/24 20:55 alprazolam [From Xanax] AdvReac MAKES Verified 06/29/24 20:55 PARANOID dicyclomine [From Bentyl] AdvReac constipatio Verified 06/29/24 20:55 n Review of Systems ROS Statement: Those systems with pertinent positive or pertinent negative responses have been documented in the HPI. ROS Other: All systems not noted in ROS Statement are negative. Past Medical History Past Medical History: Blood Disorder, GERD/Reflux Additional Past Medical History / Comment(s): Endometriosis, polycystic ovarian syndrome. IRON DEFICIENCY ANEMIA. Stomach Ulcer. Hx ovarian cyst. History of Any Multi-Drug Resistant Organisms: None Reported Past Surgical History: Ablation, Appendectomy, Section, Cholecystectomy, Hernia Repair, Hysterectomy, Tubal Ligation, Uterine Ablation Additional Past Surgical History / Comment(s): Laparoscopy X2, Section X3, right ovary and right tube removed, then total hysterectomy including left ovary and left fallopian tube, cyst removed from chest, ADHESION REMOVAL FROM PAST CSECTION, vaginal/pelvic biopsy. Scar tissure removal abdomen L upper lower Past Anesthesia/Blood Transfusion Reactions: No Reported Reaction Past Psychological History: Anxiety, Depression Smoking Status: Never smoker Past Alcohol Use History: Occasional Past Drug Use History: None Reported - Past Family History Mother Family Medical History: Deep Vein Thrombosis (DVT), Hyperlipidemia Additional Family Medical History / Comment(s): Depression and anxiety. DVT to arm after surgery. General Exam Limitations: no limitations General appearance: alert, in no apparent distress Head exam: Present: atraumatic, normocephalic, normal inspection Eye exam: Present: normal appearance, PERRL, EOMI. Absent: scleral icterus, conjunctival injection, periorbital swelling ENT exam: Present: normal exam, normal oropharynx, mucous membranes moist Neck exam: Present: normal inspection, full ROM. Absent: tenderness, meningismus, lymphadenopathy Respiratory exam: Present: normal lung sounds bilaterally. Absent: respiratory distress, wheezes, rales, rhonchi, stridor Cardiovascular Exam: Present: regular rate, normal rhythm, normal heart sounds. Absent: systolic murmur, diastolic murmur, rubs, gallop, clicks GI/Abdominal exam: Present: soft, tenderness (Minimal nonlocalized), normal bowel sounds. Absent: distended, guarding, rebound, rigid Course Vital Signs 06/29/24 06/29/24 20:54 21:50 Temperature 98.8 F Pulse Rate 91 90 Respiratory 18 18 Rate Blood Pressure 134/89 130/90 O2 Sat by Pulse 100 96 Oximetry Medical Decision Making - Medical Decision Making Was pt. sent in by a medical professional or institution (, PA, ARMATURE BANDER, urgent care, hospital, or halfway...) When possible be specific @ -No Did you speak to anyone other than the patient for history (EMS, parent, family, police, friend...)? What history was obtained from this source @ -No Did you review nursing and triage notes (agree or disagree)? Why? @ -I reviewed and agree with nursing and triage notes Were old charts reviewed (outside hosp., previous admission, EMS record, old E KG, old radiological studies, urgent care reports/EKG's, halfway records)? Report findings @ -No old charts were reviewed Differential Diagnosis (chest pain, altered mental status, abdominal pain women, abdominal pain men, vaginal bleeding, weakness, fever, dyspnea, syncope, headache, dizziness, GI bleed, back pain, seizure, CVA, palpatations, mental health, musculoskeletal)? @ -Differential Abdominal Pain Women: Appendicitis, Cholecystitis, diverticulosis, ischemic bowel, pancreatitis, hepatitis, UTI, gastroenteritis, AAA, incarcerated hernia, bowel obstruction, constipation, inflammatory bowel, hepatitis, peptic ulcer disease, splenic infarction, perforated viscus, vulvitis, ovarian torsion, PID, kidney stone, placenta abruption, this is not meant to be an all-inclusive list EKG interpreted by me (3pts min.). @ -None X-rays interpreted by me (1pt min.). @ -None done CT interpreted by me (1pt min.). @ -None done U/S interpreted by me (1pt. min.). @ -None done What testing was considered but not performed or refused? (CT, X-rays, U/S, labs)? Why? @ -None What meds were considered but not given or refused? Why? @ -None Did you discuss the management of the patient with other professionals (professionals i.e. , PA, ARMATURE BANDER, lab, RT, psych nurse, health and social care teacher, forensic economist, teacher, accounts officer, pillowcase cutter)? Give summary @ -No Was smoking cessation discussed for >3mins.? @ -No Was critical care preformed (if so, how long)? @ -No Were there social determinants of health that impacted care today? How? (Homelessness, low income, unemployed, alcoholism, drug addiction, trans portation, low edu. Level, literacy, decrease access to med. care, group home, rehab)? @ -No Was there de-escalation of care discussed even if they declined (Discuss DNR or withdrawal of care, Hospice)? DNR status @ -No What co-morbidities impacted this encounter? (DM, HTN, Smoking, COPD, CAD, Cancer, CVA, ARF, Chemo, Hep., AIDS, mental health diagnosis, sleep apnea, morbid obesity)? @ -None Was patient admitted / discharged? Hospital course, mention meds given and route, prescriptions, significant lab abnormalities, going to OR and other pertinent info. @ -Discharge patient has chronic abdominal pain not worse than usual she was treated for nausea vomiting discharged with follow-up with her PCP tomorrow. Undiagnosed new problem with uncertain prognosis? @ -No Drug Therapy requiring intensive monitoring for toxicity (Heparin, Nitro, Insulin, Cardizem)? @ -No Were any procedures done? @ -No Diagnosis/symptom? @ -Abdominal pain, nausea vomiting Acute, or Chronic, or Acute on Chronic? @ -Chronic, acute Uncomplicated (without systemic symptoms) or Complicated (systemic symptoms)? @ -Uncomplicated Side effects of treatment? @ -No Exacerbation, Progression, or Severe Exacerbation? @ -No Poses a threat to life or bodily function? How? (Chest pain, [place], [place], pneumonia, PE, COPD, DKA, ARF, appy, cholecystitis, CVA, Diverticulitis, Homicidal, Suicidal, threat to staff... and all critical care pts) @ -No Disposition Clinical Impression: Nausea and vomiting, Chronic abdominal pain Disposition: HOME SELF-CARE Condition: Stable Instructions (If sedation given, give patient instructions): Acute Nausea and Vomiting (ED) Additional Instructions: Please return to the Emergency Department if symptoms worsen or any other concerns. Is patient prescribed a controlled substance at d/c from ED?: No Referrals: Christiano Gutierrez MD [Primary Care Provider] - 1-2 days Time of Disposition: 21:37
[2024-06-29] MEDS: ONDANSETRON 4 MG ODT STARTER PACK 2 TAB BTL PO STA (21:43)
[2024-06-29] MEDS: droPERidol 5 MG/2 ML VIAL IM ONE (21:43)
[2024-06-29 21:51] VITALS: BP 130/90; PULSE 90
== END 2024-06-29 21:51 | disposition home or self-care (01) ==
LOC: EC 20:52
DX: R11.2 Nausea with vomiting, unspecified (principal); R10.9 Unspecified abdominal pain; G89.29 Other chronic pain; Z88.0 Allergy status to penicillin; Z88.1 Allergy status to other antibiotic agents; Z88.2 Allergy status to sulfonamides; Z91.048 Other nonmedicinal substance allergy status
CPT/HCPCS: 99283; 96372; S0119; J1790

== ENCOUNTER 2024-07-11 18:09 | Emergency (ER) | payer OTHER ==
[2024-07-11 18:26] VITALS: TEMP 97.4
--- NOTE | 2024-07-11 18:50 | ED ---
Abdominal Pain HPI - General Chief Complaint: Abdominal Pain Stated Complaint: abd pain L side Time Seen by Provider: 07/11/24 18:31 Source: patient, RN notes reviewed Mode of arrival: wheelchair Limitations: no limitations - History of Present Illness Initial Comments: This is a 34-year-old female who is well-known to emergency department presenting with chronic abdominal pain, nausea. Patient states that she was evaluated by her primary care provider on 07/09/2024 where she was prescribed additional pain medication and steroids with concern for possible IBS flareup. She states that today she has been experiencing abdominal pain, nausea with no vomiting. Denies fevers, chills, hematemesis, hematochezia, melena, urinary complaints. Patient states that this abdominal pain is chronic for her. No other acute complaints at this time. - Related Data Home Medications Medication Instructions Recorded Confirmed Orphenadrine Citrate [Orphenadrine 100 mg PO BID PRN 04/02/24 07/11/24 Citrate ER] Naproxen [Naprosyn] 500 mg PO BID PRN 05/13/24 07/11/24 Cholestyramine (with Sugar) 4 gm PO BID 07/11/24 07/11/24 [Questran] Omeprazole 20 mg PO BID 07/11/24 07/11/24 methylPREDNISolone Dose Pack See Taper PO DIRECTED 07/11/24 07/11/24 [Medrol Dose Pack] Allergies Allergy/AdvReac Type Severity Reaction Status Date / Time sulfamethoxazole Allergy Severe Anaphylaxis Verified 07/11/24 19:24 [From Bactrim] trimethoprim [From Bactrim] Allergy Severe Anaphylaxis Verified 07/11/24 19:24 adhesive tape Allergy Rash/Hives Verified 07/11/24 19:24 aloe vera Allergy Rash/Hives Verified 07/11/24 19:24 amoxicillin [From Augmentin] Allergy Itching Verified 07/11/24 19:24 azithromycin Allergy Rash/Hives Verified 07/11/24 19:24 cephalexin Allergy Rash/Hives Verified 07/11/24 19:24 clavulanic acid Allergy Itching Verified 07/11/24 19:24 [From Augmentin] metronidazole [From Flagyl] Allergy Rash/Hives Verified 07/11/24 19:24 Penicillins Allergy Rash/Hives Verified 07/11/24 19:24 alprazolam [From Xanax] AdvReac MAKES Verified 07/11/24 19:24 PARANOID dicyclomine [From Bentyl] AdvReac constipatio Verified 07/11/24 19:24 n Review of Systems ROS Statement: Those systems with pertinent positive or pertinent negative responses have been documented in the HPI. ROS Other: All systems not noted in ROS Statement are negative. Past Medical History Past Medical History: Blood Disorder, GERD/Reflux Additional Past Medical History / Comment(s): Endometriosis, polycystic ovarian syndrome. IRON DEFICIENCY ANEMIA. Stomach Ulcer. Hx ovarian cyst. History of Any Multi-Drug Resistant Organisms: None Reported Past Surgical History: Ablation, Appendectomy, Section, Cholecystectomy, Hernia Repair, Hysterectomy, Tubal Ligation, Uterine Ablation Additional Past Surgical History / Comment(s): Laparoscopy X2, Section X3, right ovary and right tube removed, then total hysterectomy including left ovary and left fallopian tube, cyst removed from chest, ADHESION REMOVAL FROM PAST CSECTION, vaginal/pelvic biopsy. Scar tissure removal abdomen L upper lower Past Anesthesia/Blood Transfusion Reactions: No Reported Reaction Past Psychological History: Anxiety, Depression Smoking Status: Never smoker Past Alcohol Use History: Occasional Past Drug Use History: None Reported - Past Family History Mother Family Medical History: Deep Vein Thrombosis (DVT), Hyperlipidemia Additional Family Medical History / Comment(s): Depression and anxiety. DVT to arm after surgery. General Exam Limitations: no limitations General appearance: alert, in no apparent distress ENT exam: Present: normal exam, mucous membranes moist Respiratory exam: Present: normal lung sounds bilaterally. Absent: respiratory distress, wheezes, rales, rhonchi, stridor Cardiovascular Exam: Present: regular rate, normal rhythm, normal heart sounds. Absent: systolic murmur, diastolic murmur, rubs, gallop, clicks GI/Abdominal exam: Present: soft, tenderness (mild LLQ), normal bowel sounds. Absent: distended, guarding, rebound, rigid Extremities exam: Present: normal inspection, full ROM, normal capillary refill. Absent: tenderness, pedal edema, joint swelling, calf tenderness Skin exam: Present: warm, dry, intact, normal color. Absent: rash Course Vital Signs 07/11/24 07/11/24 07/11/24 18:21 19:34 20:07 Temperature 97.4 F L Pulse Rate 91 72 80 Respiratory 18 16 15 Rate Blood Pressure 128/77 115/81 126/84 O2 Sat by Pulse 100 100 97 Oximetry Medical Decision Making - Medical Decision Making Was pt. sent in by a medical professional or institution (ANALI Leroy, RENTAL COUNTER CLERK, urgent care, hospital, or jail...) When possible be specific @ -No Did you speak to anyone other than the patient for history (EMS, parent, family, police, friend...)? What history was obtained from this source @ -No Did you review nursing and triage notes (agree or disagree)? Why? @ -I reviewed and agree with nursing and triage notes Were old charts reviewed (outside hosp., previous admission, EMS record, old EKG, old radiological studies, urgent care reports/EKG's, jail records)? Report findings @ -No old charts were reviewed Differential Diagnosis (chest pain, altered mental status, abdominal pain women, abdominal pain men, vaginal bleeding, weakness, fever, dyspnea, syncope, headache, dizziness, GI bleed, back pain, seizure, CVA, palpatations, mental health, musculoskeletal)? @ -Differential Abdominal Pain Women: Appendicitis, Cholecystitis, diverticulosis, ischemic bowel, pancreatitis, hepatitis, UTI, gastroenteritis, AAA, incarcerated hernia, bowel obstruction, constipation, inflammatory bowel, hepatitis, peptic ulcer disease, splenic infarction, perforated viscus, vulvitis, ovarian torsion, PID, kidney stone, placenta abruption, this is not meant to be an all-inclusive list EKG interpreted by me (3pts min.). @ -none X-rays interpreted by me (1pt min.). @ -None done CT interpreted by me (1pt min.). @ -None done U/S interpreted by me (1pt. min.). @ -None done What testing was considered but not performed or refused? (CT, X-rays, U/S, labs)? Why? @ -None What meds were considered but not given or refused? Why? @ -None Did you discuss the management of the patient with other professionals (professionals i.e. ANALI Leroy, RENTAL COUNTER CLERK, lab, RT, psych nurse, social work therapist, leaf fat scraper, teacher, occupational medicine officer, case management social worker)? Give summary @ -No Was smoking cessation discussed for >3mins.? @ -No Was critical care preformed (if so, how long)? @ -No Were there social determinants of health that impacted care today? How? (Homelessness, low income, unemployed, alcoholism, drug addiction, transportation, low edu. Level, literacy, decrease access to med. care, residential, rehab)? @ -No Was there de-escalation of care discussed even if they declined (Discuss DNR or withdrawal of care, Hospice)? DNR status @ -No What co-morbidities impacted this encounter? (DM, HTN, Smoking, COPD, CAD, Cancer, CVA, ARF, Chemo, Hep., AIDS, mental health diagnosis, sleep apnea, morbid obesity)? @ -None Was patient admitted / discharged? Hospital course, mention meds given and rou te, prescriptions, significant lab abnormalities, going to OR and other pertinent info. @ -Discharge. 34-year-old female presenting with chronic abdominal pain. Showed to have mild tenderness to the left lower quadrant with no signs of rebound tenderness or rigidity. Her vitals are stable. Patient provided with medication. On reevaluation states that symptoms are resolved. Patient does have follow-up appointment scheduled on 07/12/2024 with PCP for continued evaluation. Discussed with Dr. Velasquez Undiagnosed new problem with uncertain prognosis? @ -No Drug Therapy requiring intensive monitoring for toxicity (Heparin, Nitro, Insulin, Cardizem)? @ -No Were any procedures done? @ -No Diagnosis/symptom? @ -Abdominal pain Acute, or Chronic, or Acute on Chronic? @ -Chronic Uncomplicated (without systemic symptoms) or Complicated (systemic symptoms)? @ -Uncomplicated Side effects of treatment? @ -No Exacerbation, Progression, or Severe Exacerbation? @ -No Poses a threat to life or bodily function? How? (Chest pain, [place], [place], pneumonia, PE, COPD, DKA, ARF, appy, cholecystitis, CVA, Diverticulitis, Homicidal, Suicidal, threat to staff... and all critical care pts) @ -No Disposition Clinical Impression: Chronic abdominal pain, Nausea and vomiting Disposition: HOME SELF-CARE Condition: Good Instructions (If sedation given, give patient instructions): Abdominal Pain (ED) Additional Instructions: Please return to the Emergency Department if symptoms worsen or any other concerns. Is patient prescribed a controlled substance at d/c from ED?: No Referrals: Christiano Gutierrez MD [Primary Care Provider] - 1-2 days Time of Disposition: 19:54
[2024-07-11] MEDS: droPERidol 5 MG/2 ML VIAL IM ONE (18:53)
[2024-07-11] MEDS: HYDROmorphone 0.5 MG/0.5 ML SYRINGE IM STA (19:32)
[2024-07-11 20:09] VITALS: BP 126/84; PULSE 80; RESP 15
== END 2024-07-11 20:08 | disposition home or self-care (01) ==
LOC: EC 18:09
DX: G89.29 Other chronic pain (principal); R10.32 Left lower quadrant pain; R11.2 Nausea with vomiting, unspecified; Z88.2 Allergy status to sulfonamides; Z88.1 Allergy status to other antibiotic agents; Z91.048 Other nonmedicinal substance allergy status; Z88.0 Allergy status to penicillin; Z88.8 Allergy status to other drugs, medicaments and biological substances
CPT/HCPCS: 99284 ×2; 96372 ×3; J1171; J1790

== ENCOUNTER 2024-08-02 19:52 | Emergency (ER) | payer OTHER ==
[2024-08-02 20:08] VITALS: TEMP 98.4
[2024-08-02] MEDS: KETOROLAC 15 MG/ML 1 ML VIAL IVP STA (20:43)
[2024-08-02 20:58] LABS: Basophils % (A) 0 %; Eosinophils # (A) 0.1 k/uL (0-0.7); Eosinophils % (A) 2 %; HCT 31.1 % (34.0-46.0); HGB 10.3 gm/dL (11.4-16.0); Lymphocytes # (A) 1.6 k/uL (1.0-4.8); Lymphocytes % (A) 49 %; MCH 31.3 pg (25.0-35.0); MCHC 33.2 g/dL (31.0-37.0); MCV 94.3 fL (80.0-100.0); Mean Platelet Volume 7.3; Monocytes # (A) 0.3 k/uL (0-1.0); Monocytes % (A) 8 %; Neutrophils # (A) 1.3 k/uL (1.3-7.7); Neutrophils % (A) 38 %; Platelet Count 165 k/uL (150-450); RDW 13.4 % (11.5-15.5); WBC 3.3 k/uL (3.8-10.6)
[2024-08-02 21:18] LABS: ALT 26 U/L (4-34); AST 29 U/L (14-36); African American GFR (CKD) >90 (>60 ml/min/1.73 sqM); Albumin 3.6 g/dL (3.5-5.0); Alkaline Phosphatase 94 U/L (38-126); Anion Gap 8 mmol/L; Blood Urea Nitrogen 13 mg/dL (7-17); Calcium 9.1 mg/dL (8.4-10.2); Carbon Dioxide 27 mmol/L (22-30); Chloride 102 mmol/L (98-107); Glucose 103 mg/dL (74-99); Non-African American GFR(CKD) >90 (>60 ml/min/1.73 sqM); Potassium 3.7 mmol/L (3.5-5.1); Sodium 137 mmol/L (137-145); Total Bilirubin 0.7 mg/dL (0.2-1.3); Total Protein 5.7 g/dL (6.3-8.2)
[2024-08-02] MEDS: HYDROmorphone 1 MG/ML 1 ML SYRINGE IVP STA (22:42)
[2024-08-02 22:53] LABS: Appearance,Urine Clear (Clear); Bilirubin,Urine Negative (Negative); Blood,Urine Negative (Negative); Color,Urine Yellow; Glucose,Urine (UA) Negative (Negative); Ketones,Urine Negative (Negative); Leukocyte Esterase,Urine Negative (Negative); Nitrite,Urine Negative (Negative); Protein,Urine Negative (Negative); Specific Gravity,Urine 1.031 (1.001-1.035); Urobilinogen,Urine <2.0 mg/dL (<2.0)
--- NOTE | 2024-08-02 23:05 | ED ---
Abdominal Pain HPI - General Chief Complaint: Abdominal Pain Stated Complaint: Weakness Time Seen by Provider: 08/02/24 20:22 Source: patient Mode of arrival: wheelchair Limitations: no limitations - History of Present Illness Initial Comments: 34-year-old female presenting with chief complaint of fatigue. Last night patient reports having a large bowel movement, she has a history of hemorrhoids and had bleeding from her hemorrhoids afterwards. She states that she had a large amount of bleeding. Bleeding has since completely stopped. Now she is very tired and she is worried that her hemoglobin is low. She is having some lower abdominal discomfort, history of appendectomy, hysterectomy with bilateral oophorectomy, cholecystectomy. This patient has history of chronic abdominal pain. No dysuria or hematuria. No fevers or chills. No nausea or vomiting. No diarrhea. - Related Data Home Medications Medication Instructions Recorded Confirmed Orphenadrine Citrate [Orphenadrine 100 mg PO BID PRN 04/02/24 07/11/24 Citrate ER] Naproxen [Naprosyn] 500 mg PO BID PRN 05/13/24 07/11/24 Cholestyramine (with Sugar) 4 gm PO BID 07/11/24 07/11/24 [Questran] Omeprazole 20 mg PO BID 07/11/24 07/11/24 methylPREDNISolone Dose Pack See Taper PO DIRECTED 07/11/24 07/11/24 [Medrol Dose Pack] Allergies Allergy/AdvReac Type Severity Reaction Status Date / Time sulfamethoxazole Allergy Severe Anaphylaxis Verified 08/02/24 20:04 [From Bactrim] trimethoprim [From Bactrim] Allergy Severe Anaphylaxis Verified 08/02/24 20:04 adhesive tape Allergy Rash/Hives Verified 08/02/24 20:04 aloe vera Allergy Rash/Hives Verified 08/02/24 20:04 amoxicillin [From Augmentin] Allergy Itching Verified 08/02/24 20:04 azithromycin Allergy Rash/Hives Verified 08/02/24 20:04 cephalexin Allergy Rash/Hives Verified 08/02/24 20:04 clavulanic acid Allergy Itching Verified 08/02/24 20:04 [From Augmentin] metronidazole [From Flagyl] Allergy Rash/Hives Verified 08/02/24 20:04 Penicillins Allergy Rash/Hives Verified 08/02/24 20:04 alprazolam [From Xanax] AdvReac MAKES Verified 08/02/24 20:04 PARANOID dicyclomine [From Bentyl] AdvReac constipatio Verified 08/02/24 20:04 n Review of Systems ROS Statement: Those systems with pertinent positive or pertinent negative responses have been documented in the HPI. ROS Other: All systems not noted in ROS Statement are negative. Past Medical History Past Medical History: Blood Disorder, GERD/Reflux Additional Past Medical History / Comment(s): Endometriosis, polycystic ovarian syndrome. IRON DEFICIENCY ANEMIA. Stomach Ulcer. Hx ovarian cyst. History of Any Multi-Drug Resistant Organisms: None Reported Past Surgical History: Ablation, Appendectomy, Section, Cholecyste ctomy, Hernia Repair, Hysterectomy, Tubal Ligation, Uterine Ablation Additional Past Surgical History / Comment(s): Laparoscopy X2, Section X3, right ovary and right tube removed, then total hysterectomy including left ovary and left fallopian tube, cyst removed from chest, ADHESION REMOVAL FROM PAST CSECTION, vaginal/pelvic biopsy. Scar tissure removal abdomen L upper lower Past Anesthesia/Blood Transfusion Reactions: No Reported Reaction Past Psychological History: Anxiety, Depression Smoking Status: Never smoker Past Alcohol Use History: Occasional Past Drug Use History: None Reported - Past Family History Mother Family Medical History: Deep Vein Thrombosis (DVT), Hyperlipidemia Additional Family Medical History / Comment(s): Depression and anxiety. DVT to arm after surgery. General Exam Limitations: no limitations General appearance: alert, in no apparent distress Head exam: Present: atraumatic, normocephalic, normal inspection Eye exam: Present: normal appearance, EOMI Neck exam: Present: normal inspection. Absent: meningismus Respiratory exam: Present: normal lung sounds bilaterally. Absent: respiratory distress, wheezes, rales, rhonchi, stridor Cardiovascular Exam: Present: regular rate, normal rhythm, normal heart sounds. Absent: systolic murmur, diastolic murmur, rubs, gallop, clicks GI/Abdominal exam: Present: soft. Absent: distended, tenderness, guarding, rebound, rigid Neurological exam: Present: alert, oriented X3 Psychiatric exam: Present: normal affect, normal mood Skin exam: Present: warm, dry Course Vital Signs 08/02/24 20:04 Temperature 98.4 F Pulse Rate 88 Respiratory 20 Rate Blood Pressure 115/79 O2 Sat by Pulse 100 Oximetry Medical Decision Making - Medical Decision Making Was pt. sent in by a medical professional or institution (ANALI Leroy, DIAGNOSTIC RADIOLOGIST, urgent care, hospital, or penitentiary...) When possible be specific @ -No Did you speak to anyone other than the patient for history (EMS, parent, family, police, friend...)? What history was obtained from this source @ -No Did you review nursing and triage notes (agree or disagree)? Why? @ -I reviewed and agree with nursing and triage notes Were old charts reviewed (outside hosp., previous admission, EMS record, old EKG, old radiological studies, urgent care reports/EKG's, penitentiary records)? Report findings @ -No old charts were reviewed Differential Diagnosis (chest pain, altered mental status, abdominal pain women, abdominal pain men, vaginal bleeding, weakness, fever, dyspnea, syncope, headache, dizziness, GI bleed, back pain, seizure, CVA, palpatations, mental health, musculoskeletal)? @ -Differential includes anemia, viral process, UTI, this is not an all- inclusive list EKG interpreted by me (3pts min.). @ -As above X-rays interpreted by me (1pt min.). @ -None done CT interpreted by me (1pt min.). @ -None done U/S interpreted by me (1pt. min.). @ -None done What testing was considered but not performed or refused? (CT, X-rays, U/S, labs)? Why? @ -None What meds were considered but not given or refused? Why? @ -None Did you discuss the management of the patient with other professionals (professionals i.e. ANALI Leroy, DIAGNOSTIC RADIOLOGIST, lab, RT, psych nurse, social science manager, tower switch operator, teacher, medical officer psychiatry, case management social worker)? Give summary @ -No Was smoking cessation discussed for >3mins.? @ -No Was critical care preformed (if so, how long)? @ -No Were there social determinants of health that impacted care today? How? (Home lessness, low income, unemployed, alcoholism, drug addiction, transportation, low edu. Level, literacy, decrease access to med. care, intermediate, rehab)? @ -No Was there de-escalation of care discussed even if they declined (Discuss DNR or withdrawal of care, Hospice)? DNR status @ -No What co-morbidities impacted this encounter? (DM, HTN, Smoking, COPD, CAD, Cancer, CVA, ARF, Chemo, Hep., AIDS, mental health diagnosis, sleep apnea, morbid obesity)? @ -None Was patient admitted / discharged? Hospital course, mention meds given and route, prescriptions, significant lab abnormalities, going to OR and other pertinent info. @ -34-year-old female presenting with chief complaint of fatigue. Patient had a large amount of bleeding from her hemorrhoids and is worried she may be anemic. Bleeding has since stopped. History and physical examination are conducted. Hemoglobin is 10.3, this is consistent with the patient's baseline. Urine shows no infectious process or bleeding. Treated with pain medication and reports improvement in her lower abdominal discomfort. Discharged. Follow-up with PCP. Report back to ER with any new or worsening symptoms. Discussed return parameters and answered all questions. Patient conveyed verbal understanding and agreed to the plan. I discussed this case in detail with my attending Dr. Araujo Undiagnosed new problem with uncertain prognosis? @ -No Drug Therapy requiring intensive monitoring for toxicity (Heparin, Nitro, Insulin, Cardizem)? @ -No Were any procedures done? @ -No Diagnosis/symptom? @ -Hemorrhoids, abdominal pain Acute, or Chronic, or Acute on Chronic? @ -Acute Uncomplicated (without systemic symptoms) or Complicated (systemic symptoms)? @ -Uncomplicated Side effects of treatment? @ -No Exacerbation, Progression, or Severe Exacerbation? @ -No Poses a threat to life or bodily function? How? (Chest pain, USA, MS, pneumonia, PE, COPD, DKA, ARF, appy, cholecystitis, CVA, Diverticulitis, Homicidal, Suicidal, threat to staff... and all critical care pts) @ -Low likelihood - Lab Data Result diagrams: 08/02/24 20:45 08/02/24 20:45 Lab Results 08/02/24 08/02/24 08/02/24 Range/Units 20:45 20:45 21:48 WBC 3.3 L (3.8-10.6) k/uL RBC 3.30 L (3.80-5.40) m/uL Hgb 10.3 L (11.4-16.0) gm/dL Hct 31.1 L (34.0-46.0) % MCV 94.3 (80.0-100.0) fL MCH 31.3 (25.0-35.0) pg MCHC 33.2 (31.0-37.0) g/dL RDW 13.4 (11.5-15.5) % Plt Count 165 (150-450) k/uL MPV 7.3 Neutrophils % 38 % Lymphocytes % 49 % Monocytes % 8 % Eosinophils % 2 % Basophils % 0 % Neutrophils # 1.3 (1.3-7.7) k/uL Lymphocytes # 1.6 (1.0-4.8) k/uL Monocytes # 0.3 (0-1.0) k/uL Eosinophils # 0.1 (0-0.7) k/uL Basophils # 0.0 (0-0.2) k/uL Sodium 137 (137-145) mmol/L Potassium 3.7 (3.5-5.1) mmol/L Chloride 102 (98-107) mmol/L Carbon Dioxide 27 (22-30) mmol/L Anion Gap 8 mmol/L BUN 13 (7-17) mg/dL Creatinine 0.63 (0.52-1.04) mg/dL Est GFR (CKD-EPI)AfAm >90 (>60 ml/min/1.73 sqM) Est GFR (CKD-EPI)NonAf >90 (>60 ml/min/1.73 sqM) Glucose 103 H (74-99) mg/dL Calcium 9.1 (8.4-10.2) mg/dL Total Bilirubin 0.7 (0.2-1.3) mg/dL AST 29 (14-36) U/L ALT 26 (4-34) U/L Alkaline Phosphatase 94 (38-126) U/L Total Protein 5.7 L (6.3-8.2) g/dL Albumin 3.6 (3.5-5.0) g/dL Urine Color Yellow Urine Appearance Clear (Clear) Urine pH 6.0 (5.0-8.0) Ur Specific [place] 1.031 (1.001-1.035) Urine Protein Negative (Negative) Urine Glucose (UA) Negative (Negative) Urine Ketones Negative (Negative) Urine Blood Negative (Negative) Urine Nitrite Negative (Negative) Urine Bilirubin Negative (Negative) Urine Urobilinogen <2.0 (<2.0) mg/dL Ur Leukocyte Esterase Negative (Negative) Disposition Clinical Impression: Abdominal pain, Hemorrhoids Disposition: HOME SELF-CARE Condition: Good Instructions (If sedation given, give patient instructions): Hemorrhoids (ED), Abdominal Pain (ED) Additional Instructions: Follow-up with PCP. Report back to ER with any new or worsening symptoms. Is patient prescribed a controlled substance at d/c from ED?: No Referrals: Christiano Gutierrez MD [Primary Care Provider] - 1-2 days Time of Disposition: 23:05
[2024-08-02 23:40] VITALS: BP 106/70; PULSE 67; RESP 16
== END 2024-08-02 23:32 | disposition home or self-care (01) ==
LOC: EC 19:52
DX: K64.9 Unspecified hemorrhoids (principal); Z88.2 Allergy status to sulfonamides; Z88.0 Allergy status to penicillin; Z88.8 Allergy status to other drugs, medicaments and biological substances; Z88.1 Allergy status to other antibiotic agents
CPT/HCPCS: 36415; 80053; 85025; 81003; 99284; 96374; 96375; J1171; J1885

== ENCOUNTER 2024-08-05 20:23 | Emergency (ER) | payer OTHER ==
[2024-08-05 20:49] VITALS: RESP 18
--- NOTE | 2024-08-05 21:35 | ED ---
General Adult HPI - General Chief complaint: Nausea/Vomiting/Diarrhea Stated complaint: NVD Time Seen by Provider: 08/05/24 21:07 Source: patient Mode of arrival: ambulatory Limitations: no limitations - History of Present Illness Initial comments: 34-year-old female presenting with chief complaint of nausea vomiting and diarrhea. Patient has history of IBS and this feels like one of her IBS flareups. She is having diffuse lower abdominal pain which is typical for her. No hematochezia or melena. No fevers or chills. No cough, congestion, sore th roat, chest pain, difficulty breathing. No urinary symptoms. - Related Data Home Medications Medication Instructions Recorded Confirmed Orphenadrine Citrate [Orphenadrine 100 mg PO BID PRN 04/02/24 07/11/24 Citrate ER] Naproxen [Naprosyn] 500 mg PO BID PRN 05/13/24 07/11/24 Cholestyramine (with Sugar) 4 gm PO BID 07/11/24 07/11/24 [Questran] Omeprazole 20 mg PO BID 07/11/24 07/11/24 methylPREDNISolone Dose Pack See Taper PO DIRECTED 07/11/24 07/11/24 [Medrol Dose Pack] Allergies Allergy/AdvReac Type Severity Reaction Status Date / Time sulfamethoxazole Allergy Severe Anaphylaxis Verified 08/05/24 20:49 [From Bactrim] trimethoprim [From Bactrim] Allergy Severe Anaphylaxis Verified 08/05/24 20:49 adhesive tape Allergy Rash/Hives Verified 08/05/24 20:49 aloe vera Allergy Rash/Hives Verified 08/05/24 20:49 amoxicillin [From Augmentin] Allergy Itching Verified 08/05/24 20:49 azithromycin Allergy Rash/Hives Verified 08/05/24 20:49 cephalexin Allergy Rash/Hives Verified 08/05/24 20:49 clavulanic acid Allergy Itching Verified 08/05/24 20:49 [From Augmentin] metronidazole [From Flagyl] Allergy Rash/Hives Verified 08/05/24 20:49 Penicillins Allergy Rash/Hives Verified 08/05/24 20:49 alprazolam [From Xanax] AdvReac MAKES Verified 08/05/24 20:49 PARANOID dicyclomine [From Bentyl] AdvReac constipatio Verified 01/15/25 20:49 n Review of Systems ROS Statement: Those systems with pertinent positive or pertinent negative responses have been documented in the HPI. ROS Other: All systems not noted in ROS Statement are negative. Past Medical History Past Medical History: Blood Disorder, GERD/Reflux Additional Past Medical History / Comment(s): Endometriosis, polycystic ovarian syndrome. IRON DEFICIENCY ANEMIA. Stomach Ulcer. Hx ovarian cyst. History of Any Multi-Drug Resistant Organisms: None Reported Past Surgical History: Ablation, Appendectomy, Section, Cholecystectomy, Hernia Repair, Hysterectomy, Tubal Ligation, Uterine Ablation Additional Past Surgical History / Comment(s): Laparoscopy X2, Section X3, right ovary and right tube removed, then total hysterectomy including left ovary and left fallopian tube, cyst removed from chest, ADHESION REMOVAL FROM PAST CSECTION, vaginal/pelvic biopsy. Scar tissure removal abdomen L upper lower Past Anesthesia/Blood Transfusion Reactions: No Reported Reaction Past Psychological History: Anxiety, Depression Smoking Status: Never smoker Past Alcohol Use History: Occasional Past Drug Use History: None Reported - Past Family History Mother Family Medical History: Deep Vein Thrombosis (DVT), Hyperlipidemia Additional Family Medical History / Comment(s): Depression and anxiety. DVT to arm after surgery. General Exam Limitations: no limitations General appearance: alert, in no apparent distress Head exam: Present: atraumatic, normocephalic, normal inspection Eye exam: Present: normal appearance, EOMI Neck exam: Present: normal inspection. Absent: meningismus Respiratory exam: Present: normal lung sounds bilaterally. Absent: respiratory distress, wheezes, rales, rhonchi, stridor Cardiovascular Exam: Present: regular rate, normal rhythm, normal heart sounds. Absent: systolic murmur, diastolic murmur, rubs, gallop, clicks GI/Abdominal exam: Present: soft, tenderness. Absent: distended, guarding, rebound, rigid Neurological exam: Present: alert, oriented X3 Psychiatric exam: Present: normal affect, normal mood Skin exam: Present: warm, dry Course Vital Signs 08/05/24 08/05/24 08/06/24 20:47 22:20 00:12 Temperature 98.7 F 98.3 F Pulse Rate 57 L 90 71 Respiratory 18 18 18 Rate Blood Pressure 117/77 138/90 134/80 O2 Sat by Pulse 99 99 99 Oximetry Medical Decision Making - Medical Decision Making Was pt. sent in by a medical professional or institution (ANALI Leroy, [employer]ICAL [employer] OFFICER, urgent care, hospital, or longterm...) When possible be specific @ -No Did you speak to anyone other than the patient for history (EMS, parent, family, police, friend...)? What history was obtained from this source @ -No Did you review nursing and triage notes (agree or disagree)? Why? @ -I reviewed and agree with nursing and triage notes Were old charts reviewed (outside hosp., previous admission, EMS record, old EKG, old radiological studies, urgent care reports/EKG's, longterm records)? Report findings @ -No old charts were reviewed Differential Diagnosis (chest pain, altered mental status, abdominal pain women, abdominal pain men, vaginal bleeding, weakness, fever, dyspnea, syncope, headache, dizziness, GI bleed, back pain, seizure, CVA, palpatations, mental health, musculoskeletal)? @ -MDM Differential Abdominal Pain Women: Appendicitis, Cholecystitis, diverticulosis, ischemic bowel, pancreatitis, hepatitis, UTI, gastroenteritis, AAA, incarcerated hernia, bowel obstruction, constipation, inflammatory bowel, hepatitis, peptic ulcer disease, splenic infarction, perforated viscus, vulvitis, ovarian torsion, PID, kidney stone, placenta abruption... This is not meant to be an all-inclusive list EKG interpreted by me (3pts min.). @ -As above X-rays interpreted by me (1pt min.). @ -None done CT interpreted by me (1pt min.). @ -None done U/S interpreted by me (1pt. min.). @ -None done What testing was considered but not performed or refused? (CT, X-rays, U/S, labs)? Why? @ -None What meds were considered but not given or refused? Why? @ -None Did you discuss the management of the patient with other professionals (professionals i.e. ANALI Leroy, MEDICAL [employer] OFFICER, lab, RT, psych nurse, vp digital marketing social media and crm, packaging specialist, teacher, space officer, counseling case manager)? Give summary @ -No Was smoking cessation discussed for >3mins.? @ -No Was critical care preformed (if so, how long)? @ -No Were there social determinants of health that impacted care today? How? (Homelessness, low income, unemployed, alcoholism, drug addiction, transportat ion, low edu. Level, literacy, decrease access to med. care, longterm, rehab)? @ -No Was there de-escalation of care discussed even if they declined (Discuss DNR or withdrawal of care, Hospice)? DNR status @ -No What co-morbidities impacted this encounter? (DM, HTN, Smoking, COPD, CAD, Cancer, CVA, ARF, Chemo, Hep., AIDS, mental health diagnosis, sleep apnea, morbid obesity)? @ -None Was patient admitted / discharged? Hospital course, mention meds given and route, prescriptions, significant lab abnormalities, going to OR and other pertinent info. @ -34-year-old female with history of chronic abdominal pain presenting with chief complaint of nausea vomiting and diarrhea. She is also having her usual lower abdominal pain. History and physical examination are conducted. No leukocytosis or anemia. CMP UA amylase and lipase are WNL. Negative for influenza, RSV, COVID. Patient is treated with pain medication and antiemetics and on reassessment showing no signs of distress. She is educated on today's findings. Follow-up with PCP. Report back to ER with any new or worsening symptoms. Discussed return parameters and answered all questions. Patient conveyed verbal understanding and agreed to the plan. I discussed this case in detail with my attending Dr. Araujo Undiagnosed new problem with uncertain prognosis? @ -No Drug Therapy requiring intensive monitoring for toxicity (Heparin, Nitro, Insulin, Cardizem)? @ -No Were any procedures done? @ -No Diagnosis/symptom? @ -Abdominal pain Acute, or Chronic, or Acute on Chronic? @ -Acute Uncomplicated (without systemic symptoms) or Complicated (systemic symptoms)? @ -Uncomplicated Side effects of treatment? @ -No Exacerbation, Progression, or Severe Exacerbation? @ -No Poses a threat to life or bodily function? How? (Chest pain, USA, DC, pneumonia, PE, COPD, DKA, ARF, appy, cholecystitis, CVA, Diverticulitis, Homicidal, Suicidal, threat to staff... and all critical care pts) @ -Low likelihood - Lab Data Result diagrams: 08/05/24 22:07 08/05/24 22:07 Lab Results 08/05/24 08/05/24 08/05/24 Range/Units 22:07 22:07 22:07 WBC 5.0 (3.8-10.6) k/uL RBC 3.62 L (3.80-5.40) m/uL Hgb 11.5 (11.4-16.0) gm/dL Hct 33.6 L (34.0-46.0) % MCV 92.8 (80.0-100.0) fL MCH 31.6 (25.0-35.0) pg MCHC 34.1 (31.0-37.0) g/dL RDW 13.4 (11.5-15.5) % Plt Count 204 (150-450) k/uL MPV 7.3 Neutrophils % 60 % Lymphocytes % 30 % Monocytes % 7 % Eosinophils % 0 % Basophils % 0 % Neutrophils # 3.0 (1.3-7.7) k/uL Lymphocytes # 1.5 (1.0-4.8) k/uL Monocytes # 0.3 (0-1.0) k/uL Eosinophils # 0.0 (0-0.7) k/uL Basophils # 0.0 (0-0.2) k/uL Sodium 140 (137-145) mmol/L Potassium 3.5 (3.5-5.1) mmol/L Chloride 106 (98-107) mmol/L Carbon Dioxide 29 (22-30) mmol/L Anion Gap 5 mmol/L BUN 10 (7-17) mg/dL Creatinine 0.74 (0.52-1.04) mg/dL Est GFR (CKD-EPI)AfAm >90 (>60 ml/min/1.73 sqM) Est GFR (CKD-EPI)NonAf >90 (>60 ml/min/1.73 sqM) Glucose 93 (74-99) mg/dL Calcium 9.5 (8.4-10.2) mg/dL Total Bilirubin 0.7 (0.2-1.3) mg/dL AST 23 (14-36) U/L ALT 19 (4-34) U/L Alkaline Phosphatase 99 (38-126) U/L Total Protein 6.4 (6.3-8.2) g/dL Albumin 3.9 (3.5-5.0) g/dL Amylase 52 (30-110) U/L Lipase 75 (23-300) U/L Urine Color Colorless Urine Appearance Clear (Clear) Urine pH 7.0 (5.0-8.0) Ur Specific [place] 1.008 (1.001-1.035) Urine Protein Negative (Negative) Urine Glucose (UA) Negative (Negative) Urine Ketones Negative (Negative) Urine Blood Negative (Negative) Urine Nitrite Negative (Negative) Urine Bilirubin Negative (Negative) Urine Urobilinogen <2.0 (<2.0) mg/dL Ur Leukocyte Esterase Negative (Negative) Influenza Type A (PCR) (Not Detectd) Influenza Type B (PCR) (Not Detectd) RSV (PCR) (Not Detectd) SARS-CoV-2 (PCR) (Not Detectd) 08/05/24 Range/Units 22:11 WBC (3.8-10.6) k/uL RBC (3.80-5.40) m/uL Hgb (11.4-16.0) gm/dL Hct (34.0-46.0) % MCV (80.0-100.0) fL MCH (25.0-35.0) pg MCHC (31.0-37.0) g/dL RDW (11.5-15.5) % Plt Count (150-450) k/uL MPV Neutrophils % % Lymphocytes % % Monocytes % % Eosinophils % % Basophils % % Neutrophils # (1.3-7.7) k/uL Lymphocytes # (1.0-4.8) k/uL Monocytes # (0-1.0) k/uL Eosinophils # (0-0.7) k/uL Basophils # (0-0.2) k/uL Sodium (137-145) mmol/L Potassium (3.5-5.1) mmol/L Chloride (98-107) mmol/L Carbon Dioxide (22-30) mmol/L Anion Gap mmol/L BUN (7-17) mg/dL Creatinine (0.52-1.04) mg/dL Est GFR (CKD-EPI)AfAm (>60 ml/min/1.73 sqM) Est GFR (CKD-EPI)NonAf (>60 ml/min/1.73 sqM) Glucose (74-99) mg/dL Calcium (8.4-10.2) mg/dL Total Bilirubin (0.2-1.3) mg/dL AST (14-36) U/L ALT (4-34) U/L Alkaline Phosphatase (38-126) U/L Total Protein (6.3-8.2) g/dL Albumin (3.5-5.0) g/dL Amylase (30-110) U/L Lipase (23-300) U/L Urine Color Urine Appearance (Clear) Urine pH (5.0-8.0) Ur Specific [place] (1.001-1.035) Urine Protein (Negative) Urine Glucose (UA) (Negative) Urine Ketones (Negative) Urine Blood (Negative) Urine Nitrite (Negative) Urine Bilirubin (Negative) Urine Urobilinogen (<2.0) mg/dL Ur Leukocyte Esterase (Negative) Influenza Type A (PCR) Not Detected (Not Detectd) Influenza Type B (PCR) Not Detected (Not Detectd) RSV (PCR) Not Detected (Not Detectd) SARS-CoV-2 (PCR) Not Detected (Not Detectd) Disposition Clinical Impression: Abdominal pain Disposition: HOME SELF-CARE Condition: Good Instructions (If sedation given, give patient instructions): Abdominal Pain (ED) Additional Instructions: Follow up with PCP. Report back to ER with any new or worsening symptoms Is patient prescribed a controlled substance at d/c from ED?: No Referrals: Christiano Gutierrez MD [Primary Care Provider] - 1-2 days Time of Disposition: 23:58
[2024-08-05] MEDS: SODIUM CHLORIDE 0.9% 1,000 ML IV STA (22:25)
[2024-08-05] MEDS: METOCLOPRAMIDE 5 MG/ML 2 ML VIAL IVP STA (22:27)
[2024-08-05] MEDS: HYDROmorphone 0.5 MG/0.5 ML SYRINGE IVP STA (22:29)
[2024-08-05 22:35] LABS: Basophils % (A) 0 %; Eosinophils % (A) 0 %; HCT 33.6 % (34.0-46.0); HGB 11.5 gm/dL (11.4-16.0); Lymphocytes # (A) 1.5 k/uL (1.0-4.8); Lymphocytes % (A) 30 %; MCH 31.6 pg (25.0-35.0); MCHC 34.1 g/dL (31.0-37.0); MCV 92.8 fL (80.0-100.0); Mean Platelet Volume 7.3; Monocytes # (A) 0.3 k/uL (0-1.0); Monocytes % (A) 7 %; Neutrophils % (A) 60 %; Platelet Count 204 k/uL (150-450); RBC 3.62 m/uL (3.80-5.40); RDW 13.4 % (11.5-15.5)
[2024-08-05 22:36] LABS: Appearance,Urine Clear (Clear); Bilirubin,Urine Negative (Negative); Blood,Urine Negative (Negative); Color,Urine Colorless; Glucose,Urine (UA) Negative (Negative); Ketones,Urine Negative (Negative); Leukocyte Esterase,Urine Negative (Negative); Nitrite,Urine Negative (Negative); Protein,Urine Negative (Negative); Specific Gravity,Urine 1.008 (1.001-1.035); Urobilinogen,Urine <2.0 mg/dL (<2.0)
[2024-08-05 23:11] LABS: Influenza A Not Detected (Not Detectd); Influenza B Not Detected (Not Detectd); RSV Not Detected (Not Detectd)
[2024-08-05 23:55] LABS: ALT 19 U/L (4-34); AST 23 U/L (14-36); African American GFR (CKD) >90 (>60 ml/min/1.73 sqM); Albumin 3.9 g/dL (3.5-5.0); Alkaline Phosphatase 99 U/L (38-126); Amylase 52 U/L (30-110); Anion Gap 5 mmol/L; Blood Urea Nitrogen 10 mg/dL (7-17); Calcium 9.5 mg/dL (8.4-10.2); Carbon Dioxide 29 mmol/L (22-30); Chloride 106 mmol/L (98-107); Glucose 93 mg/dL (74-99); Lipase 75 U/L (23-300); Non-African American GFR(CKD) >90 (>60 ml/min/1.73 sqM); Potassium 3.5 mmol/L (3.5-5.1); Sodium 140 mmol/L (137-145); Total Bilirubin 0.7 mg/dL (0.2-1.3); Total Protein 6.4 g/dL (6.3-8.2)
[2024-08-06] MEDS: KETOROLAC 15 MG/ML 1 ML VIAL IVP STA (00:10)
[2024-08-06 00:13] VITALS: BP 134/80; PULSE 71; TEMP 98.3
== END 2024-08-06 00:13 | disposition home or self-care (01) ==
LOC: EC 20:23
DX: R10.30 Lower abdominal pain, unspecified (principal); Z88.0 Allergy status to penicillin; Z88.1 Allergy status to other antibiotic agents; Z88.2 Allergy status to sulfonamides; Z88.8 Allergy status to other drugs, medicaments and biological substances; Z91.09 Other allergy status, other than to drugs and biological substances
CPT/HCPCS: 36415; 80053; 82150; 83690; 85025; 81003; 87636; 99284; 96374; 96375 ×2; 96361; J2765; J1885; J1171

== ENCOUNTER 2024-09-12 18:02 | Emergency (ER) | payer OTHER ==
[2024-09-12 18:06] VITALS: BP 139/95; PULSE 86; RESP 16; TEMP 97.9
[2024-09-12] MEDS: SODIUM CHLORIDE 0.9% 1,000 ML IV STA (18:39)
--- NOTE | 2024-09-12 18:39 | ED ---
Abdominal Pain HPI - General Chief Complaint: Abdominal Pain Stated Complaint: abd pain Time Seen by Provider: 09/12/24 18:18 Source: patient, RN notes reviewed Mode of arrival: ambulatory Limitations: no limitations - History of Present Illness Initial Comments: This is a 34-year-old female with history of abdominal pain and IBS presenting with lower abdominal/pelvic pain for at least 3 days. Patient also endorses bilateral kidney pain, nausea and diarrhea with increased urinary frequency. Patient endorses recently finishing antibiotic regiment for unknown reason. Patient states her regular [place] use has been unable to control pain. States di arrhea is significant without hematochezia or melena. Denies fever, chills, chest pain, dyspnea, hematuria, vomiting, dizziness. MD Complaint: abdominal pain Onset/Timin -: days(s) Location: LLQ, RLQ, bilateral flank Context: recent antibiotic use Associated Symptoms: nausea, diarrhea Treatments Prior to Arrival: prescription analgesics ([place]) - Related Data Home Medications Medication Instructions Recorded Confirmed Budesonide/Formoterol Fumarate 2 puff INHALATION RT-BID 09/02/24 09/02/24 [Symbicort 160-4.5 Mcg Inhaler] Escitalopram Oxalate [Lexapro] 10 mg PO HS 09/02/24 09/02/24 Gabapentin [Neurontin] 200 mg PO BID 09/02/24 09/02/24 HYDROcodone/APAP 10-325MG [[place] 1 tab PO TID PRN 09/02/24 09/02/24 10-325] Omeprazole [PriLOSEC] 40 mg PO HS 09/02/24 09/02/24 ondansetron HCL [Zofran] 8 mg PO Q12HR PRN 09/02/24 09/02/24 Allergies Allergy/AdvReac Type Severity Reaction Status Date / Time sulfamethoxazole Allergy Severe Anaphylaxis Verified 09/04/24 15:29 [From Bactrim] trimethoprim [From Bactrim] Allergy Severe Anaphylaxis Verified 09/04/24 15:29 adhesive tape Allergy Rash/Hives Verified 09/04/24 15:29 aloe vera Allergy Rash/Hives Verified 09/04/24 15:29 amoxicillin [From Augmentin] Allergy Itching Verified 09/04/24 15:29 azithromycin Allergy Rash/Hives Verified 09/04/24 15:29 cephalexin Allergy Rash/Hives Verified 09/04/24 15:29 clavulanic acid Allergy Itching Verified 09/04/24 15:29 [From Augmentin] metronidazole [From Flagyl] Allergy Rash/Hives Verified 09/04/24 15:29 Penicillins Allergy Rash/Hives Verified 09/04/24 15:29 alprazolam [From Xanax] AdvReac MAKES Verified 09/04/24 15:29 PARANOID dicyclomine [From Bentyl] AdvReac constipatio Verified 09/04/24 15:29 n Review of Systems ROS Statement: Those systems with pertinent positive or pertinent negative responses have been documented in the HPI. ROS Other: All systems not noted in ROS Statement are negative. Past Medical History Past Medical History: Blood Disorder, GERD/Reflux Additional Past Medical History / Comment(s): Endometriosis, polycystic ovarian syndrome. IRON DEFICIENCY ANEMIA. Stomach Ulcer. Hx ovarian cyst.IBS History of Any Multi-Drug Resistant Organisms: None Reported Past Surgical History: Ablation, Appendectomy, Section, Cholecystectomy, Hernia Repair, Hysterectomy, Tubal Ligation, Uterine Ablation Additional Past Surgical History / Comment(s): Laparoscopy X2, Section X3, right ovary and right tube removed, then total hysterectomy including left ovary and left fallopian tube, cyst removed from chest, ADHESION REMOVAL FROM PAST CSECTION, vaginal/pelvic biopsy. Scar tissure removal abdomen L upper lower Past Anesthesia/Blood Transfusion Reactions: No Reported Reaction Past Psychological History: Anxiety, Depression Smoking Status: Never smoker Past Alcohol Use History: Occasional Past Drug Use History: None Reported - Past Family History Mother Family Medical History: Deep Vein Thrombosis (DVT), Hyperlipidemia Additional Family Medical History / Comment(s): Depression and anxiety. DVT to arm after surgery. General Exam Limitations: no limitations General appearance: alert, in no apparent distress Head exam: Present: atraumatic, normocephalic, normal inspection Eye exam: Present: normal appearance, PERRL, EOMI. Absent: scleral icterus, conjunctival injection, periorbital swelling ENT exam: Present: normal exam, mucous membranes moist Neck exam: Present: normal inspection. Absent: tenderness, meningismus, lymphadenopathy Respiratory exam: Present: normal lung sounds bilaterally. Absent: respiratory distress, wheezes, rales, rhonchi, stridor Cardiovascular Exam: Present: regular rate, normal rhythm, normal heart sounds. Absent: systolic murmur, diastolic murmur, rubs, gallop, clicks GI/Abdominal exam: Present: soft, tenderness (Positive for lower abdominal tenderness with voluntary guarding), guarding, normal bowel sounds. Absent: distended, rebound, rigid Extremities exam: Present: normal inspection, full ROM, normal capillary refill. Absent: tenderness, pedal edema, joint swelling, calf tenderness Back exam: Present: normal inspection, tenderness, CVA tenderness (R), CVA tenderness (L), muscle spasm (Positive right lower muscle spasm point tenderness). Absent: vertebral tenderness Neurological exam: Present: alert, oriented X3, CN II-XII intact Psychiatric exam: Present: normal affect, normal mood Skin exam: Present: warm, dry, intact, normal color. Absent: rash Course Vital Signs 09/12/24 18:03 Temperature 97.9 F Pulse Rate 86 Respiratory 16 Rate Blood Pressure 139/95 O2 Sat by Pulse 99 Oximetry Medical Decision Making - Medical Decision Making Was pt. sent in by a medical professional or institution (, PA, ELECTRONIC SYSTEM ENGINEER, urgent care, hospital, or halfway...) When possible be specific @ -No Did you speak to anyone other than the patient for history (EMS, parent, family, police, friend...)? What history was obtained from this source @ -No Did you review nursing and triage notes (agree or disagree)? Why? @ -I reviewed and agree with nursing and triage notes Were old charts reviewed (outside hosp., previous admission, EMS record, old EKG, old radiological studies, urgent care reports/EKG's, halfway records)? Report findings @ -No old charts were reviewed Differential Diagnosis (chest pain, altered mental status, abdominal pain women, abdominal pain men, vaginal bleeding, weakness, fever, dyspnea, syncope, headache, dizziness, GI bleed, back pain, seizure, CVA, palpatations, mental health, musculoskeletal)? @ -Differential Abdominal Pain Women: Appendicitis, Cholecystitis, diverticulosis, ischemic bowel, pancreatitis, hepatitis, UTI, gastroenteritis, AAA, incarcerated hernia, bowel obstruction, constipation, inflammatory bowel, hepatitis, peptic ulcer disease, splenic in farction, perforated viscus, vulvitis, ovarian torsion, PID, kidney stone, placenta abruption, this is not meant to be an all-inclusive list EKG interpreted by me (3pts min.). @ -Not done X-rays interpreted by me (1pt min.). @ -KUB is unremarkable CT interpreted by me (1pt min.). @ -None done U/S interpreted by me (1pt. min.). @ -None done What testing was considered but not performed or refused? (CT, X-rays, U/S, labs)? Why? @ -None What meds were considered but not given or refused? Why? @ -Patient declined Imodium/Lomotil for diarrhea. States she has Zofran 8 mg at home. Did you discuss the management of the patient with other professionals (professionals i.e. DrLuciano, PA, ELECTRONIC SYSTEM ENGINEER, lab, RT, psych nurse, social media strategist, sintering plant supervisor, teacher, correction officer, disease case manager rn)? Give summary @ -No Was smoking cessation discussed for >3mins.? @ -No Was critical care preformed (if so, how long)? @ -No Were there social determinants of health that impacted care today? How? (Homelessness, low income, unemployed, alcoholism, drug addiction, transportation, low edu. Level, literacy, decrease access to med. care, mcc, rehab)? @ -No Was there de-escalation of care discussed even if they declined (Discuss DNR or withdrawal of care, Hospice)? DNR status @ -No What co-morbidities impacted this encounter? (DM, HTN, Smoking, COPD, CAD, Cancer, CVA, ARF, Chemo, Hep., AIDS, mental health diagnosis, sleep apnea, morbid obesity)? @ -None Was patient admitted / discharged? Hospital course, mention meds given and route, prescriptions, significant lab abnormalities, going to OR and other pertinent info. @ -Lab work shows mild anemia 11.1 hemoglobin that is within patient's normal limits. Lab work otherwise unremarkable. UA also completely unremarkable. KUB also unremarkable. Patient initially given IV normal saline, Toradol and Zofran. Patient provided additional Toradol for pain. Advise to provide stool sample either while at ER or return with sample if necessary to rule out C. difficile as possible cause of diarrhea due to recent antibiotic use. Advise follow-up with PCP and pain management clinic for ongoing care. Discussed patient with Dr. Velasquez. Undiagnosed new problem with uncertain prognosis? @ -No Drug Therapy requiring intensive monitoring for toxicity (Heparin, Nitro, Insulin, Cardizem)? @ -No Were any procedures done? @ -No Diagnosis/symptom? @ -Abdominal pain Acute, or Chronic, or Acute on Chronic? @ -Acute Uncomplicated (without systemic symptoms) or Complicated (systemic symptoms)? @ -Complicated Side effects of treatment? @ -No Exacerbation, Progression, or Severe Exacerbation? @ -No Poses a threat to life or bodily function? How? (Chest pain, [place], [place], pneumonia, PE, COPD, DKA, ARF, appy, cholecystitis, CVA, Diverticulitis, Homicidal, Suicida l, threat to staff... and all critical care pts) @ -No - Lab Data Result diagrams: 09/12/24 18:36 09/12/24 18:36 Lab Results 09/12/24 09/12/24 09/12/24 Range/Units 18:36 18:36 18:36 WBC 4.5 (3.8-10.6) k/uL RBC 3.60 L (3.80-5.40) m/uL Hgb 11.1 L (11.4-16.0) gm/dL Hct 33.3 L (34.0-46.0) % MCV 92.5 (80.0-100.0) fL MCH 30.9 (25.0-35.0) pg MCHC 33.4 (31.0-37.0) g/dL RDW 13.3 (11.5-15.5) % Plt Count 204 (150-450) k/uL MPV 7.7 Neutrophils % 62 % Lymphocytes % 31 % Monocytes % 4 % Eosinophils % 2 % Basophils % 0 % Neutrophils # 2.8 (1.3-7.7) k/uL Lymphocytes # 1.4 (1.0-4.8) k/uL Monocytes # 0.2 (0-1.0) k/uL Eosinophils # 0.1 (0-0.7) k/uL Basophils # 0.0 (0-0.2) k/uL Sodium 137 (137-145) mmol/L Potassium 4.0 (3.5-5.1) mmol/L Chloride 102 (98-107) mmol/L Carbon Dioxide 26 (22-30) mmol/L Anion Gap 9 mmol/L BUN 12 (7-17) mg/dL Creatinine 0.95 (0.52-1.04) mg/dL Est GFR (CKD-EPI)AfAm >90 (>60 ml/min/1.73 sqM) Est GFR (CKD-EPI)NonAf 79 (>60 ml/min/1.73 sqM) Glucose 97 (74-99) mg/dL Calcium 9.4 (8.4-10.2) mg/dL Total Bilirubin 0.8 (0.2-1.3) mg/dL AST 22 (14-36) U/L ALT 14 (4-34) U/L Alkaline Phosphatase 65 (38-126) U/L Total Protein 6.8 (6.3-8.2) g/dL Albumin 4.2 (3.5-5.0) g/dL Amylase 55 (30-110) U/L Lipase 49 (23-300) U/L Urine Color Colorless Urine Appearance Clear (Clear) Urine pH 6.5 (5.0-8.0) Ur Specific [place] 1.007 (1.001-1.035) Urine Protein Negative (Negative) Urine Glucose (UA) Negative (Negative) Urine Ketones Negative (Negative) Urine Blood Negative (Negative) Urine Nitrite Negative (Negative) Urine Bilirubin Negative (Negative) Urine Urobilinogen <2.0 (<2.0) mg/dL Ur Leukocyte Esterase Negative (Negative) Disposition Clinical Impression: Abdominal pain, Diarrhea, Nausea and vomiting Disposition: HOME SELF-CARE Condition: Good Instructions (If sedation given, give patient instructions): Abdominal Pain (ED) Additional Instructions: Follow-up with PCP and pain management regarding ongoing symptoms Is patient prescribed a controlled substance at d/c from ED?: No Referrals: Christiano Gutierrez MD [Primary Care Provider] - 1-2 days Time of Disposition: 19:14
[2024-09-12] MEDS: ONDANSETRON 4 MG/2 ML VIAL IVP STA (18:40)
[2024-09-12 18:41] LABS: Basophils % (A) 0 %; Eosinophils # (A) 0.1 k/uL (0-0.7); Eosinophils % (A) 2 %; HCT 33.3 % (34.0-46.0); HGB 11.1 gm/dL (11.4-16.0); Lymphocytes # (A) 1.4 k/uL (1.0-4.8); Lymphocytes % (A) 31 %; MCH 30.9 pg (25.0-35.0); MCHC 33.4 g/dL (31.0-37.0); MCV 92.5 fL (80.0-100.0); Mean Platelet Volume 7.7; Monocytes # (A) 0.2 k/uL (0-1.0); Monocytes % (A) 4 %; Neutrophils # (A) 2.8 k/uL (1.3-7.7); Neutrophils % (A) 62 %; Platelet Count 204 k/uL (150-450); RDW 13.3 % (11.5-15.5); WBC 4.5 k/uL (3.8-10.6)
[2024-09-12] MEDS: KETOROLAC 15 MG/ML 1 ML VIAL IVP STA ×2 (18:41→19:43)
[2024-09-12 18:48] LABS: Appearance,Urine Clear (Clear); Bilirubin,Urine Negative (Negative); Blood,Urine Negative (Negative); Color,Urine Colorless; Glucose,Urine (UA) Negative (Negative); Ketones,Urine Negative (Negative); Leukocyte Esterase,Urine Negative (Negative); Nitrite,Urine Negative (Negative); PH, Urine 6.5 (5.0-8.0); Protein,Urine Negative (Negative); Specific Gravity,Urine 1.007 (1.001-1.035); Urobilinogen,Urine <2.0 mg/dL (<2.0)
[2024-09-12 18:59] LABS: ALT 14 U/L (4-34); AST 22 U/L (14-36); African American GFR (CKD) >90 (>60 ml/min/1.73 sqM); Albumin 4.2 g/dL (3.5-5.0); Alkaline Phosphatase 65 U/L (38-126); Amylase 55 U/L (30-110); Anion Gap 9 mmol/L; Blood Urea Nitrogen 12 mg/dL (7-17); Calcium 9.4 mg/dL (8.4-10.2); Carbon Dioxide 26 mmol/L (22-30); Chloride 102 mmol/L (98-107); Glucose 97 mg/dL (74-99); Lipase 49 U/L (23-300); Non-African American GFR(CKD) 79 (>60 ml/min/1.73 sqM); Sodium 137 mmol/L (137-145); Total Bilirubin 0.8 mg/dL (0.2-1.3); Total Protein 6.8 g/dL (6.3-8.2)
--- NOTE | 2024-09-12 19:00 | XR ---
EXAMINATION TYPE: XR KUB DATE OF EXAM: 09/12/2024 6:52 PM COMPARISON: 09/04/2024 CLINICAL INDICATION: Female, 34 years old with history of abdominal pain, TECHNIQUE: XR KUB view(s) obtained. FINDINGS: There is a normal bowel gas pattern. No free air is evident. No differential air-fluid levels are luis dent. Psoas margins are normal. No organomegaly is present. Cholecystectomy clips are in the right upper quadrant. IMPRESSION: 1. Unremarkable Abdomen [facility], , 09/12/2024 6:58 PM
== END 2024-09-12 20:13 | disposition home or self-care (01) ==
LOC: EC 18:02
DX: R10.31 Right lower quadrant pain (principal); R10.32 Left lower quadrant pain; R11.2 Nausea with vomiting, unspecified; R19.7 Diarrhea, unspecified; Z88.0 Allergy status to penicillin; Z88.1 Allergy status to other antibiotic agents; Z88.2 Allergy status to sulfonamides; Z88.8 Allergy status to other drugs, medicaments and biological substances
CPT/HCPCS: 36415; 80053; 82150; 83690; 85025; 81003; 74018; 99284; 96374; 96375; 96376; 96361; J2405; J1885

== ENCOUNTER 2024-09-24 08:47 | Emergency (ER) | payer OTHER ==
--- NOTE | 2024-09-24 09:33 | XR ---
EXAMINATION TYPE: XR KUB DATE OF EXAM: 09/24/2024 COMPARISON: KUB radiograph 09/12/2024, 09/04/2024, CT abdomen and pelvis 08/19/2024 HISTORY: Abdominal pain TECHNIQUE: Single upright KUB image of the abdomen is obtained FINDINGS: Small bowel demonstrates no evidence for dilatation or air fluid levels. Gas and fecal material is seen in non-distended colon. No convincing evidence for pneumoperitoneum. No unusual calcifications. Cholecystectomy clips in right upper quadrant. Tubal ligation clip within the right pelvis. The lung bases are clear. The osseous structures are intact. IMPRESSION: Overall nonobstructive bowel gas pattern. [facility], , 09/24/2024 9:31 AM
[2024-09-24] MEDS: KETOROLAC 15 MG/ML 1 ML VIAL IVP STA ×2 (10:05→11:57)
[2024-09-24] MEDS: ONDANSETRON 4 MG/2 ML VIAL IVP STA (10:05)
[2024-09-24] MEDS: HYDROmorphone 1 MG/ML 1 ML SYRINGE IVP STA ×2 (10:06→11:58)
[2024-09-24 10:24] LABS: Basophils % (A) 0 %; Eosinophils # (A) 0.1 k/uL (0-0.7); Eosinophils % (A) 2 %; HCT 30.5 % (34.0-46.0); HGB 10.8 gm/dL (11.4-16.0); Lymphocytes # (A) 1.5 k/uL (1.0-4.8); Lymphocytes % (A) 48 %; MCH 33.9 pg (25.0-35.0); MCHC 35.4 g/dL (31.0-37.0); MCV 95.6 fL (80.0-100.0); Mean Platelet Volume 7.8; Monocytes # (A) 0.2 k/uL (0-1.0); Monocytes % (A) 5 %; Neutrophils # (A) 1.3 k/uL (1.3-7.7); Neutrophils % (A) 42 %; Platelet Count 173 k/uL (150-450); RBC 3.19 m/uL (3.80-5.40); RDW 13.5 % (11.5-15.5); WBC 3.2 k/uL (3.8-10.6)
--- NOTE | 2024-09-24 10:25 | ED ---
Abdominal Pain HPI - General Chief Complaint: Abdominal Pain Stated Complaint: abd pain Time Seen by Provider: 09/24/24 08:57 Source: patient, RN notes reviewed Mode of arrival: ambulatory Limitations: no limitations - History of Present Illness Initial Comments: This is a 34-year-old female who presents to the emergency department for abdominal pain. Patient states that she feels a "bubble" in her lower abdomen and is concerned about a hernia. States that she noticed this a few weeks ago, but it seems to be getting worse and more painful. States that it also seems larger. She has some associated nausea. Patient is well-known to this emergency department for repeated visits related to abdominal pain. MD Complaint: abdominal pain - Related Data Home Medications Medication Instructions Recorded Confirmed Budesonide/Formoterol Fumarate 2 puff INHALATION RT-BID 09/02/24 09/02/24 [Symbicort 160-4.5 Mcg Inhaler] Escitalopram Oxalate [Lexapro] 10 mg PO HS 09/02/24 09/02/24 Gabapentin [Neurontin] 200 mg PO BID 09/02/24 09/02/24 HYDROcodone/APAP 10-325MG [[place] 1 tab PO TID PRN 09/02/24 09/02/24 10-325] Omeprazole [PriLOSEC] 40 mg PO HS 09/02/24 09/02/24 ondansetron HCL [Zofran] 8 mg PO Q12HR PRN 09/02/24 09/02/24 Allergies Allergy/AdvReac Type Severity Reaction Status Date / Time sulfamethoxazole Allergy Severe Anaphylaxis Verified 09/24/24 08:55 [From Bactrim] trimethoprim [From Bactrim] Allergy Severe Anaphylaxis Verified 09/24/24 08:55 adhesive tape Allergy Rash/Hives Verified 09/24/24 08:55 aloe vera Allergy Rash/Hives Verified 09/24/24 08:55 amoxicillin [From Augmentin] Allergy Itching Verified 09/24/24 08:55 azithromycin Allergy Rash/Hives Verified 09/24/24 08:55 cephalexin Allergy Rash/Hives Verified 09/24/24 08:55 clavulanic acid Allergy Itching Verified 09/24/24 08:55 [From Augmentin] metronidazole [From Flagyl] Allergy Rash/Hives Verified 09/24/24 08:55 Penicillins Allergy Rash/Hives Verified 09/24/24 08:55 alprazolam [From Xanax] AdvReac MAKES Verified 09/24/24 08:55 PARANOID dicyclomine [From Bentyl] AdvReac constipatio Verified 09/24/24 08:55 n Review of Systems ROS Statement: Those systems with pertinent positive or pertinent negative responses have been documented in the HPI. ROS Other: All systems not noted in ROS Statement are negative. Past Medical History Past Medical History: Blood Disorder, GERD/Reflux Additional Past Medical History / Comment(s): Endometriosis, polycystic ovarian syndrome. IRON DEFICIENCY ANEMIA. Stomach Ulcer. Hx ovarian cyst.IBS History of Any Multi-Drug Resistant Organisms: None Reported Past Surgical History: Ablation, Appendectomy, Section, Cholecystectomy, Hernia Repair, Hysterectomy, Tubal Ligation, Uterine Ablation Additional Past Surgical History / Comment(s): Laparoscopy X2, Section X3, right ovary and right tube removed, then total hysterectomy including left o vary and left fallopian tube, cyst removed from chest, ADHESION REMOVAL FROM PAST CSECTION, vaginal/pelvic biopsy. Scar tissure removal abdomen L upper lower Past Anesthesia/Blood Transfusion Reactions: No Reported Reaction Past Psychological History: Anxiety, Depression Smoking Status: Never smoker Past Alcohol Use History: Occasional Past Drug Use History: None Reported - Past Family History Mother Family Medical History: Deep Vein Thrombosis (DVT), Hyperlipidemia Additional Family Medical History / Comment(s): Depression and anxiety. DVT to arm after surgery. General Exam Limitations: no limitations General appearance: alert, in no apparent distress Head exam: Present: atraumatic, normocephalic, normal inspection Respiratory exam: Present: normal lung sounds bilaterally. Absent: respiratory distress, wheezes, rales, rhonchi, stridor Cardiovascular Exam: Present: regular rate, normal rhythm, normal heart sounds. Absent: systolic murmur, diastolic murmur, rubs, gallop, clicks GI/Abdominal exam: Present: soft, tenderness (Lower abdomen), normal bowel sounds. Absent: distended Neurological exam: Present: alert, oriented X3, CN II-XII intact Psychiatric exam: Present: normal affect, normal mood Skin exam: Present: warm, dry, intact, normal color. Absent: rash Course Vital Signs 09/24/24 09/24/24 09/24/24 08:53 11:40 12:08 Temperature 98 F 97.9 F 98.1 F Pulse Rate 78 77 75 Respiratory 18 16 18 Rate Blood Pressure 137/91 144/88 133/90 O2 Sat by Pulse 100 98 100 Oximetry Medical Decision Making - Medical Decision Making This is a 34-year-old female who presents to the emergency department for abdominal pain. Was pt. sent in by a medical professional or institution? @ -No Did you speak to anyone other than the patient for history? @ -No Did you review nursing and triage notes? @ -Yes, and I agree, it is accurate with regards to the patient's symptoms. Were old charts reviewed? @ -No Differential Diagnosis? @ -Differential Abdominal Pain Women: Appendicitis, Cholecystitis, diverticulosis, ischemic bowel, pancreatitis, hepatitis, UTI, gastroenteritis, AAA, incarcerated hernia, bowel obstruction, constipation, inflammatory bowel, hepatitis, peptic ulcer disease, splenic infarction, perforated viscus, vulvitis, ovarian torsion, PID, kidney stone, placenta abruption, this is not meant to be an all-inclusive list EKG interpreted by me (3pts min.)? @ -Not obtained X-rays interpreted by me (1pt min.)? @ -KUB x-ray obtained. My interpretation identifies no dilation of the bowel loops. CT interpreted by me (1pt min.)? @ -Not obtained U/S interpreted by me (1pt. min.)? @ -Not obtained What testing was considered but not performed? (CT, X-rays, U/S, labs)? Why? @ -None What meds were considered but not given? Why? @ -None Did you discuss the management of the patient with other professionals? @ -No Did you reconcile home meds? @ -No Was smoking cessation discussed for >3mins.? @ -No Was critical care preformed (if so, how long)? @ -No Were there social determinants of health that impacted care today? How? (Homelessness, low income, unemployed, alcoholism, drug addiction, transp ortation, low edu. Level, literacy, decrease access to med. care, mcc, rehab)? @ -No Was there de-escalation of care discussed even if they declined? (Discuss DNR or withdrawal of care, Hospice)? @ -No What co-morbidities impacted this encounter? (DM, HTN, Smoking, COPD, CAD, Cancer, CVA, Hep., AIDS, mental health diagnosis, sleep apnea, morbid obesity)? @ -None Was patient admitted / discharged? @ -Discharged. I did not palpate any lumps, hernias, or other irregularities on exam. Lab work obtained and found to be unremarkable. Urinalysis negative for signs of infection. KUB x-ray obtained also revealing no acute process. Symptoms treated in the emergency department. Advised she follow back up with her PCP or general surgeon for reevaluation. Patient discharged home in stable condition. Case discussed with ED attending Dr. Rangel. Return precautions reviewed in depth, the patient is instructed to return to the emergency department with any new, worsening, or concerning symptoms. Patient verbalized understanding. Undiagnosed new problem with uncertain prognosis? @ -None Drug Therapy requiring intensive monitoring for toxicity (Heparin, Nitro, Insulin, Cardizem)? @ -None Were any procedures done? @ -None Diagnosis/symptom? @ -Abdominal pain Acute, or Chronic, or Acute on Chronic? @ -Chronic Uncomplicated (without systemic symptoms) or Complicated (systemic symptoms)? @ -Uncomplicated Side effects of treatment? @ -None Exacerbation, Progression, or Severe Exacerbation] @ -Exacerbation Poses a threat to life or bodily function? @ -No - Lab Data Result diagrams: 09/24/24 10:11 09/24/24 10:11 Lab Results 09/24/24 09/24/24 09/24/24 Range/Units 10:11 10:11 10:11 WBC 3.2 L (3.8-10.6) k/uL RBC 3.19 L (3.80-5.40) m/uL Hgb 10.8 L (11.4-16.0) gm/dL Hct 30.5 L (34.0-46.0) % MCV 95.6 (80.0-100.0) fL MCH 33.9 (25.0-35.0) pg MCHC 35.4 (31.0-37.0) g/dL RDW 13.5 (11.5-15.5) % Plt Count 173 (150-450) k/uL MPV 7.8 Neutrophils % 42 % Lymphocytes % 48 % Monocytes % 5 % Eosinophils % 2 % Basophils % 0 % Neutrophils # 1.3 (1.3-7.7) k/uL Lymphocytes # 1.5 (1.0-4.8) k/uL Monocytes # 0.2 (0-1.0) k/uL Eosinophils # 0.1 (0-0.7) k/uL Basophils # 0.0 (0-0.2) k/uL Sodium 140 (137-145) mmol/L Potassium 3.5 (3.5-5.1) mmol/L Chloride 99 (98-107) mmol/L Carbon Dioxide 39 H (22-30) mmol/L Anion Gap 2 mmol/L BUN 12 (7-17) mg/dL Creatinine 0.68 (0.52-1.04) mg/dL Est GFR (CKD-EPI)AfAm >90 (>60 ml/min/1.73 sqM) Est GFR (CKD-EPI)NonAf >90 (>60 ml/min/1.73 sqM) Glucose 83 (74-99) mg/dL Plasma Lactic Acid [place] (0.7-2.0) mmol/L Calcium 9.6 (8.4-10.2) mg/dL Total Bilirubin 0.6 (0.2-1.3) mg/dL AST 30 (14-36) U/L ALT 23 (4-34) U/L Alkaline Phosphatase 70 (38-126) U/L Total Protein 6.2 L (6.3-8.2) g/dL Albumin 3.7 (3.5-5.0) g/dL Urine Color Colorless Urine Appearance Clear (Clear) Urine pH 6.5 (5.0-8.0) Ur Specific [place] 1.016 (1.001-1.035) Urine Protein Negative (Negative) Urine Glucose (UA) Negative (Negative) Urine Ketones Negative (Negative) Urine Blood Negative (Negative) Urine Nitrite Negative (Negative) Urine Bilirubin Negative (Negative) Urine Urobilinogen <2.0 (<2.0) mg/dL Ur Leukocyte Esterase Negative (Negative) 09/24/24 Range/Units 10:24 WBC (3.8-10.6) k/uL RBC (3.80-5.40) m/uL Hgb (11.4-16.0) gm/dL Hct (34.0-46.0) % MCV (80.0-100.0) fL MCH (25.0-35.0) pg MCHC (31.0-37.0) g/dL RDW (11.5-15.5) % Plt Count (150-450) k/uL MPV Neutrophils % % Lymphocytes % % Monocytes % % Eosinophils % % Basophils % % Neutrophils # (1.3-7.7) k/uL Lymphocytes # (1.0-4.8) k/uL Monocytes # (0-1.0) k/uL Eosinophils # (0-0.7) k/uL Basophils # (0-0.2) k/uL Sodium (137-145) mmol/L Potassium (3.5-5.1) mmol/L Chloride (98-107) mmol/L Carbon Dioxide (22-30) mmol/L Anion Gap mmol/L BUN (7-17) mg/dL Creatinine (0.52-1.04) mg/dL Est GFR (CKD-EPI)AfAm (>60 ml/min/1.73 sqM) Est GFR (CKD-EPI)NonAf (>60 ml/min/1.73 sqM) Glucose (74-99) mg/dL Plasma Lactic Acid [place] 0.7 (0.7-2.0) mmol/L Calcium (8.4-10.2) mg/dL Total Bilirubin (0.2-1.3) mg/dL AST (14-36) U/L ALT (4-34) U/L Alkaline Phosphatase (38-126) U/L Total Protein (6.3-8.2) g/dL Albumin (3.5-5.0) g/dL Urine Color Urine Appearance (Clear) Urine pH (5.0-8.0) Ur Specific [place] (1.001-1.035) Urine Protein (Negative) Urine Glucose (UA) (Negative) Urine Ketones (Negative) Urine Blood (Negative) Urine Nitrite (Negative) Urine Bilirubin (Negative) Urine Urobilinogen (<2.0) mg/dL Ur Leukocyte Esterase (Negative) - Radiology Data Radiology results: report reviewed, image reviewed Disposition Clinical Impression: Abdominal pain Disposition: HOME SELF-CARE Instructions (If sedation given, give patient instructions): Abdominal Pain (ED) Additional Instructions: Return to the emergency department with any new, worsening, or concerning symptoms. Follow up with your primary care provider and with your general surgeon. Is patient prescribed a controlled substance at d/c from ED?: No Referrals: Christiano Gutierrez MD [Primary Care Provider] - 1-2 days Time of Disposition: 11:37
[2024-09-24 10:34] LABS: Appearance,Urine Clear (Clear); Bilirubin,Urine Negative (Negative); Blood,Urine Negative (Negative); Color,Urine Colorless; Glucose,Urine (UA) Negative (Negative); Ketones,Urine Negative (Negative); Leukocyte Esterase,Urine Negative (Negative); Nitrite,Urine Negative (Negative); PH, Urine 6.5 (5.0-8.0); Protein,Urine Negative (Negative); Specific Gravity,Urine 1.016 (1.001-1.035); Urobilinogen,Urine <2.0 mg/dL (<2.0)
[2024-09-24 10:43] LABS: ALT 23 U/L (4-34); AST 30 U/L (14-36); African American GFR (CKD) >90 (>60 ml/min/1.73 sqM); Albumin 3.7 g/dL (3.5-5.0); Alkaline Phosphatase 70 U/L (38-126); Anion Gap 2 mmol/L; Blood Urea Nitrogen 12 mg/dL (7-17); Calcium 9.6 mg/dL (8.4-10.2); Carbon Dioxide 39 mmol/L (22-30); Chloride 99 mmol/L (98-107); Glucose 83 mg/dL (74-99); Non-African American GFR(CKD) >90 (>60 ml/min/1.73 sqM); Potassium 3.5 mmol/L (3.5-5.1); Sodium 140 mmol/L (137-145); Total Bilirubin 0.6 mg/dL (0.2-1.3); Total Protein 6.2 g/dL (6.3-8.2)
[2024-09-24] MEDS: diphenhydrAMINE 50 MG/ML 1 ML VIAL IVP STA (10:49)
[2024-09-24 12:09] VITALS: BP 133/90; PULSE 75; RESP 18; TEMP 98.1
== END 2024-09-24 12:13 | disposition home or self-care (01) ==
LOC: EC 08:47
DX: R10.30 Lower abdominal pain, unspecified (principal)
CPT/HCPCS: 99284; 96374; 96375 ×2; 96376 ×2; 36415; 80053; 83605; 85025; 81003; 74018; J2405; J1171; J1885

== ENCOUNTER 2024-10-01 12:20 | Emergency (ER) | payer OTHER ==
[2024-10-01 12:33] VITALS: RESP 16; TEMP 98.3
[2024-10-01] MEDS: droPERidol 5 MG/2 ML VIAL IM ONE (13:38)
--- NOTE | 2024-10-01 14:30 | ED ---
Nausea/Vomiting/Diarrhea HPI - General Chief complaint: Nausea/Vomiting/Diarrhea Stated complaint: NVD Time Seen by Provider: 10/01/24 12:39 Source: patient, RN notes reviewed Mode of arrival: ambulatory Limitations: no limitations - History of Present Illness Initial comments: 34-year-old female presents emergency department with chief complaint nausea vomiting she states on reason she came in because of her nausea vomiting she has chronic abdominal pain and is well-known to emergency department. No fevers or chills no chest pain no shortness of breath no other acute changes. - Related Data Home Medications Medication Instructions Recorded Confirmed Budesonide/Formoterol Fumarate 2 puff INHALATION RT-BID 09/02/24 09/24/24 [Symbicort 160-4.5 Mcg Inhaler] Escitalopram Oxalate [Lexapro] 20 mg PO HS 09/02/24 09/24/24 Gabapentin [Neurontin] 200 mg PO TID 09/02/24 09/24/24 HYDROcodone/APAP 10-325MG [[place] 1 tab PO TID PRN 09/02/24 09/24/24 10-325] Omeprazole [PriLOSEC] 40 mg PO HS 09/02/24 09/24/24 ondansetron HCL [Zofran] 8 mg PO Q12HR PRN 09/02/24 09/24/24 Ibuprofen 800 mg PO DAILY PRN 09/24/24 09/24/24 Previous Rx's Medication Instructions Recorded Prochlorperazine [Compazine] 10 mg PO Q6H #15 tab 10/01/24 Allergies Allergy/AdvReac Type Severity Reaction Status Date / Time sulfamethoxazole Allergy Severe Anaphylaxis Verified 10/01/24 12:33 [From Bactrim] trimethoprim [From Bactrim] Allergy Severe Anaphylaxis Verified 10/01/24 12:33 adhesive tape Allergy Rash/Hives Verified 10/01/24 12:33 aloe vera Allergy Rash/Hives Verified 10/01/24 12:33 amoxicillin [From Augmentin] Allergy Itching Verified 10/01/24 12:33 azithromycin Allergy Rash/Hives Verified 10/01/24 12:33 cephalexin Allergy Rash/Hives Verified 10/01/24 12:33 clavulanic acid Allergy Itching Verified 10/01/24 12:33 [From Augmentin] metronidazole [From Flagyl] Allergy Rash/Hives Verified 10/01/24 12:33 Penicillins Allergy Rash/Hives Verified 10/01/24 12:33 alprazolam [From Xanax] AdvReac MAKES Verified 10/01/24 12:33 PARANOID dicyclomine [From Bentyl] AdvReac constipatio Verified 10/01/24 12:33 n Review of Systems ROS Statement: Those systems with pertinent positive or pertinent negative responses have been documented in the HPI. ROS Other: All systems not noted in ROS Statement are negative. Past Medical History Past Medical History: Blood Disorder, GERD/Reflux Additional Past Medical History / Comment(s): Endometriosis, polycystic ovarian syndrome. IRON DEFICIENCY ANEMIA. Stomach Ulcer. Hx ovarian cyst.IBS History of Any Multi-Drug Resistant Organisms: None Reported Past Surgical History: Ablation, Appendectomy, Section, Cholecystectomy, Hernia Repair, Hysterectomy, Tubal Ligation, Uterine Ablation Additional Past Surgical History / Comment(s): Laparoscopy X2, Section X3, right ovary and right tube removed, then total hysterectomy including left ovary and left fallopian tube, cyst removed from chest, ADHESION REMOVAL FROM PAST CSECTION, vaginal/pelvic biopsy. Scar tissure removal abdomen L upper lower Past Anesthesia/Blood Transfusion Reactions: No Reported Reaction Past Psychological History: Anxiety, Depression Past Alcohol Use History: Occasional - Past Family History Mother Family Medical History: Deep Vein Thrombosis (DVT), Hyperlipidemia Additional Family Medical History / Comment(s): Depression and anxiety. DVT to arm after surgery. General Exam Limitations: no limitations General appearance: alert, in no apparent distress Head exam: Present: atraumatic, normocephalic, normal inspection Eye exam: Present: normal appearance, PERRL, EOMI. Absent: scleral icterus, conjunctival injection, periorbital swelling ENT exam: Present: normal exam, normal oropharynx, mucous membranes moist Neck exam: Present: normal inspection, full ROM. Absent: tenderness, meningismus, lymphadenopathy Respiratory exam: Present: normal lung sounds bilaterally. Absent: respiratory distress, wheezes, rales, rhonchi, stridor Cardiovascular Exam: Present: regular rate, normal rhythm, normal heart sounds. Absent: systolic murmur, diastolic murmur, rubs, gallop, clicks GI/Abdominal exam: Present: soft, normal bowel sounds. Absent: distended, tenderness, guarding, rebound, rigid Course Vital Signs 10/01/24 10/01/24 12:30 14:38 Temperature 98.3 F Pulse Rate 75 60 Respiratory 16 16 Rate Blood Pressure 134/88 131/89 O2 Sat by Pulse 99 99 Oximetry Medical Decision Making - Medical Decision Making Was pt. sent in by a medical professional or institution (, ANALI, BELT SPLICER, urgent care, hospital, or correction...) When possible be specific @ -No Did you speak to anyone other than the patient for history (EMS, parent, family, police, friend...)? What history was obtained from this source @ -No Did you review nursing and triage notes (agree or disagree)? Why? @ -I reviewed and agree with nursing and triage notes Were old charts reviewed (outside hosp., previous admission, EMS record, old EKG, old radiological studies, urgent care reports/EKG's, correction records)? Report findings @ -No old charts were reviewed Differential Diagnosis (chest pain, altered mental status, abdominal pain women, abdominal pain men, vaginal bleeding, weakness, fever, dyspnea, syncope, headache, dizziness, GI bleed, back pain, seizure, CVA, palpatations, mental health, musculoskeletal)? @ -Differential Abdominal Pain Women: Appendicitis, Cholecystitis, diverticulosis, ischemic bowel, pancreatitis, hepatitis, UTI, gastroenteritis, AAA, incarcerated hernia, bowel obstruction, constipation, inflammatory bowel, hepatitis, peptic ulcer disease, splenic infarction, perforated viscus, vulvitis, ovarian torsion, PID, kidney stone, placenta abruption, this is not meant to be an all-inclusive list EKG interpreted by me (3pts min.). @ -None X-rays interpreted by me (1pt min.). @ -None done CT interpreted by me (1pt min.). @ -None done U/S interpreted by me (1pt. min.). @ -None done What testing was considered but not performed or refused? (CT, X-rays, U/S, labs)? Why? @ -None What meds were considered but not given or refused? Why? @ -None Did you discuss the management of the patient with other professionals (professionals i.e. ANALI Leroy, BELT SPLICER, lab, RT, psych nurse, social media senior associate, materials tech, teacher, probation and parole officer, case assistant)? Give summary @ -No Was smoking cessation discussed for >3mins.? @ -No Was critical care preformed (if so, how long)? @ -No Were there social determinants of health that impacted care today? How? (Homelessness, low income, unemployed, alcoholism, drug addiction, transportation, low edu. Level, literacy, decrease access to med. care, half-way, rehab)? @ -No Was there de-escalation of care discussed even if they declined (Discuss DNR or withdrawal of care, Hospice)? DNR status @ -No What co-morbidities impacted this encounter? (DM, HTN, Smoking, COPD, CAD, Cancer, CVA, ARF, Chemo, Hep., AIDS, mental health diagnosis, sleep apnea, morbid obesity)? @ -None Was patient admitted / discharged? Hospital course, mention meds given and route, prescriptions, significant lab abnormalities, going to OR and other pertinent info. @ -Discharge patient was given droperidol nausea and vomiting is resolved. Patient is outside stresses chronic abdominal issues discharged in stable condition. Undiagnosed new problem with uncertain prognosis? @ -No Drug Therapy requiring intensive monitoring for toxicity (Heparin, Nitro, Insulin, Cardizem)? @ -No Were any procedures done? @ -No Diagnosis/symptom? @ -Nausea vomiting chronic abdominal pain Acute, or Chronic, or Acute on Chronic? @ -Acute, chronic Uncomplicated (without systemic symptoms) or Complicated (systemic symptoms)? @ -Uncomplicated Side effects of treatment? @ -No Exacerbation, Progression, or Severe Exacerbation? @ -No Poses a threat to life or bodily function? How? (Chest pain, USA, [place], pneumonia, PE, COPD, DKA, ARF, appy, cholecystitis, CVA, Diverticulitis, Homicidal, Suicidal, threat to staff... and all critical care pts) @ -No Disposition Clinical Impression: Nausea and vomiting, Chronic abdominal pain Disposition: HOME SELF-CARE Condition: Stable Instructions (If sedation given, give patient instructions): Acute Nausea and Vomiting (ED) Additional Instructions: Please return to the Emergency Department if symptoms worsen or any other concerns. Prescriptions: Prochlorperazine [Compazine] 10 mg PO Q6H #15 tab Is patient prescribed a controlled substance at d/c from ED?: No Referrals: Christiano Gutierrez MD [Primary Care Provider] - 1-2 days Time of Disposition: 14:30
[2024-10-01 14:39] VITALS: BP 131/89; PULSE 60
== END 2024-10-01 14:39 | disposition home or self-care (01) ==
LOC: EC 12:20
DX: G89.29 Other chronic pain (principal); R11.2 Nausea with vomiting, unspecified; R10.9 Unspecified abdominal pain
CPT/HCPCS: 99283; 96372; J1790

== ENCOUNTER 2024-10-09 07:05 | Emergency (ER) | payer OTHER ==
[2024-10-09 07:24] VITALS: RESP 18
--- NOTE | 2024-10-09 07:58 | ED ---
General Adult HPI - General Chief complaint: Back Pain/Injury Stated complaint: Low Back pain Time Seen by Provider: 10/09/24 07:15 Source: patient, RN notes reviewed, old records reviewed Mode of arrival: wheelchair Limitations: no limitations - History of Present Illness Initial comments: Patient is a 34-year-old female present to the emergency department with back pain. Onset of symptoms was yesterday. Patient has discomfort bilateral posterior kidney region. Patient also has urinary urgency. Patient does have history of urinary tract infections. Patient also has history of kidney stones and is concern for both. No fever. Patient also has chronic abdominal pain. - Related Data Home Medications Medication Instructions Recorded Confirmed Budesonide/Formoterol Fumarate 2 puff INHALATION RT-BID 09/02/24 09/24/24 [Symbicort 160-4.5 Mcg Inhaler] Escitalopram Oxalate [Lexapro] 20 mg PO HS 09/02/24 09/24/24 Gabapentin [Neurontin] 200 mg PO TID 09/02/24 09/24/24 HYDROcodone/APAP 10-325MG [[place] 1 tab PO TID PRN 09/02/24 09/24/24 10-325] Omeprazole [PriLOSEC] 40 mg PO HS 09/02/24 09/24/24 ondansetron HCL [Zofran] 8 mg PO Q12HR PRN 09/02/24 09/24/24 Ibuprofen 800 mg PO DAILY PRN 09/24/24 09/24/24 Previous Rx's Medication Instructions Recorded Prochlorperazine [Compazine] 10 mg PO Q6H #15 tab 10/01/24 Nitrofurantoin Monohyd/M-Cryst 100 mg PO Q12HR #10 cap 10/09/24 [Macrobid] Allergies Allergy/AdvReac Type Severity Reaction Status Date / Time sulfamethoxazole Allergy Severe Anaphylaxis Verified 10/09/24 07:24 [From Bactrim] trimethoprim [From Bactrim] Allergy Severe Anaphylaxis Verified 10/09/24 07:24 adhesive tape Allergy Rash/Hives Verified 10/09/24 07:24 aloe vera Allergy Rash/Hives Verified 10/09/24 07:24 amoxicillin [From Augmentin] Allergy Itching Verified 10/09/24 07:24 azithromycin Allergy Rash/Hives Verified 10/09/24 07:24 cephalexin Allergy Rash/Hives Verified 10/09/24 07:24 clavulanic acid Allergy Itching Verified 10/09/24 07:24 [From Augmentin] metronidazole [From Flagyl] Allergy Rash/Hives Verified 10/09/24 07:24 Penicillins Allergy Rash/Hives Verified 10/09/24 07:24 alprazolam [From Xanax] AdvReac MAKES Verified 10/09/24 07:24 PARANOID dicyclomine [From Bentyl] AdvReac constipatio Verified 10/09/24 07:24 n Review of Systems ROS Statement: Those systems with pertinent positive or pertinent negative responses have been documented in the HPI. ROS Other: All systems not noted in ROS Statement are negative. Constitutional: Denies: fever Eyes: Denies: eye pain ENT: Denies: ear pain Cardiovascular: Denies: chest pain Gastrointestinal: Reports: as per HPI Genitourinary: Reports: urgency Musculoskeletal: Reports: as per HPI Neurological: Denies: weakness Past Medical History Past Medical History: Blood Disorder, GERD/Reflux Additional Past Medical History / Comment(s): Endometriosis, polycystic ovarian syndrome. IRON DEFICIENCY ANEMIA. Stomach Ulcer. Hx ovarian cyst.IBS History of Any Multi-Drug Resistant Organisms: None Reported Past Surgical History: Ablation, Appendectomy, Section, Cholecystectomy, Hernia Repair, Hysterectomy, Tubal Ligation, Uterine Ablation Additional Past Surgical History / Comment(s): Laparoscopy X2, Section X3, right ovary and right tube removed, then total hysterectomy including left ovary and left fallopian tube, cyst removed from chest, ADHESION REMOVAL FROM PAST CSECTION, vaginal/pelvic biopsy. Scar tissure removal abdomen L upper lower Past Anesthesia/Blood Transfusion Reactions: No Reported Reaction Past Psychological History: Anxiety, Depression Smoking Status: Never smoker Past Alcohol Use History: Occasional Past Drug Use History: None Reported - Past Family History Mother Family Medical History: Deep Vein Thrombosis (DVT), Hyperlipidemia Additional Family Medical History / Comment(s): Depression and anxiety. DVT to arm after surgery. General Exam Limitations: no limitations General appearance: alert, in no apparent distress Head exam: Present: normocephalic Eye exam: Present: normal appearance Neck exam: Present: normal inspection Respiratory exam: Present: normal lung sounds bilaterally Cardiovascular Exam: Present: regular rate, normal rhythm GI/Abdominal exam: Present: soft. Absent: distended, tenderness, guarding, rebound, rigid, pulsatile mass Extremities exam: Present: normal inspection Back exam: Present: CVA tenderness (R), CVA tenderness (L). Absent: vertebral tenderness Neurological exam: Present: alert. Absent: motor sensory deficit Expanded Sensory exam: Lower Extremity Light Touch: Normal Motor strength exam: RLE: 5, LLE: 5 Psychiatric exam: Present: normal affect, normal mood Skin exam: Present: normal color Course Vital Signs 10/09/24 07:22 Temperature 97.9 F Pulse Rate 64 Respiratory 18 Rate Blood Pressure 114/74 O2 Sat by Pulse 100 Oximetry Medical Decision Making - Medical Decision Making Was pt. sent in by a medical professional or institution (, PA, INSIDE WIREMAN, urgent care, hospital, or half-way...) When possible be specific @ -No Did you speak to anyone other than the patient for history (EMS, parent, family, police, friend...)? What history was obtained from this source @ -No Did you review nursing and triage notes (agree or disagree)? Why? @ -I reviewed and agree with nursing and triage notes Were old charts reviewed (outside hosp., previous admission, EMS record, old EKG, old radiological studies, urgent care reports/EKG's, half-way records)? Report findings @ -Multiple old charts reviewed Differential Diagnosis (chest pain, altered mental status, abdominal pain women, abdominal pain men, vaginal bleeding, weakness, fever, dyspnea, syncope, headache, dizziness, GI bleed, back pain, seizure, CVA, palpatations, mental health, musculoskeletal)? @ -Differential Back Pain: Strain, zoster, cauda equina syndrome, epidural abscess, vertebral osteomyelitis, discitis, fracture, subluxation, disc herniation, DJD, spinal stenosis, dissection, AAA, pancreatitis, peptic ulcer disease, pyelonephritis, kidney stone, this is not meant to be an all-inclusive list. EKG interpreted by me (3pts min.). @ -As above X-rays interpreted by me (1pt min.). @ -None done CT interpreted by me (1pt min.). @ -Unable to view films secondary to PACS being down U/S interpreted by me (1pt. min.). @ -None done What testing was considered but not performed or refused? (CT, X-rays, U/S, labs)? Why? @ -None What meds were considered but not given or refused? Why? @ -None Did you discuss the management of the patient with other professionals (professionals i.e. , PA, INSIDE WIREMAN, lab, RT, psych nurse, health and social care teacher, line assembly utility worker, teacher, supervisor dog license officer, case resolution specialist)? Give summary @ -No Was smoking cessation discussed for >3mins.? @ -No Was critical care preformed (if so, how long)? @ -No Were there social determinants of health that impacted care today? How? (Homelessness, low income, unemployed, alcoholism, drug addiction, transportation, low edu. Level, literacy, decrease access to med. care, [facility], rehab)? @ -No Was there de-escalation of care discussed even if they declined (Discuss DNR or withdrawal of care, Hospice)? DNR status @ -No What co-morbidities impacted this encounter? (DM, HTN, Smoking, COPD, CAD, Cancer, CVA, ARF, Chemo, Hep., AIDS, mental health diagnosis, sleep apnea, morbid obesity)? @ -Chronic pain Was patient admitted / discharged? Hospital course, mention meds given and route, prescriptions, significant lab abnormalities, going to OR and other pertinent info. @ -34 female presents with chronic pain. Patient also has back pain with concern for kidney stone or UTI. Urinalysis does show some white cells and patient will be treated for potential UTI pending urine culture. Patient reevaluated and resting comfortably in wheelchair. Patient is still in the waiting room secondary to no beds available. Patient is updated. Patient again requests pain medication. Undiagnosed new problem with uncertain prognosis? @ -No Drug Therapy requiring intensive monitoring for toxicity (Heparin, Nitro, Insulin, Cardizem)? @ -No Were any procedures done? @ -No Diagnosis/symptom? @ -Urinary tract infection Acute, or Chronic, or Acute on Chronic? @ -Acute Uncomplicated (without systemic symptoms) or Complicated (systemic symptoms)? @ -Default Side effects of treatment? @ -No Exacerbation, Progression, or Severe Exacerbation? @ -No Poses a threat to life or bodily function? How? (Chest pain, [place], [place], pneumonia, PE, COPD, DKA, ARF, appy, cholecystitis, CVA, Diverticulitis, Homicidal, Suicidal, threat to staff... and all critical care pts) @ -No - Lab Data Lab Results 03/21/25 Range/Units 07:49 Urine Color Yellow Urine Appearance Clear (Clear) Urine pH 6.0 (5.0-8.0) Ur Specific [place] 1.024 (1.001-1.035) Urine Protein Trace H (Negative) Urine Glucose (UA) Negative (Negative) Urine Ketones Negative (Negative) Urine Blood Negative (Negative) Urine Nitrite Negative (Negative) Urine Bilirubin Negative (Negative) Urine Urobilinogen <2.0 (<2.0) mg/dL Ur Leukocyte Esterase Small H (Negative) Urine RBC 1 (0-5) /hpf Urine WBC 10 H (0-5) /hpf Ur Squamous Epith Cells 1 (0-4) /hpf Urine Bacteria Moderate H (None) /hpf Urine Mucus Occasional H (None) /hpf Disposition Clinical Impression: Urinary tract infection Disposition: HOME SELF-CARE Condition: Stable Instructions (If sedation given, give patient instructions): Urinary Tract Infection in Women (ED) Additional Instructions: Prescription sent to pharmacy. Please do follow-up with your primary care physician in the next day or 2 for recheck. Have primary care physician review urine culture. Return for fevers, increased pain, worsening or changing symptoms or other concerns. Prescriptions: Nitrofurantoin Monohyd/M-Cryst [Macrobid] 100 mg PO Q12HR #10 cap Is patient prescribed a controlled substance at d/c from ED?: No Referrals: Christiano Gutierrez MD [Primary Care Provider] - 1-2 days Time of Disposition: 09:30
[2024-10-09 08:05] LABS: Appearance,Urine Clear (Clear); Bacteria,Urine Moderate /hpf; Bilirubin,Urine Negative (Negative); Blood,Urine Negative (Negative); Color,Urine Yellow; Glucose,Urine (UA) Negative (Negative); Ketones,Urine Negative (Negative); Leukocyte Esterase,Urine Small (Negative); Mucus,Urine Occasional /hpf; Nitrite,Urine Negative (Negative); Protein,Urine Trace (Negative); RBC,Urine 1 /hpf (0-5); Specific Gravity,Urine 1.024 (1.001-1.035); Squamous Epithelial Cell,Urine 1 /hpf (0-4); Urobilinogen,Urine <2.0 mg/dL (<2.0); WBC,Urine 10 /hpf (0-5)
--- NOTE | 2024-10-09 09:06 | CT ---
EXAMINATION TYPE: CT abdomen pelvis wo con DATE OF EXAM: 10/09/2024 8:44 AM COMPARISON: None, please note PACS Production downtime occurred during the radiologist interpretation of these images with limited priors/reports. CLINICAL INDICATION: Female, 34 years old with history of flank pain; Bilateral flank pain, History o f renal stones, negative gross hematuria TECHNIQUE: Axial CT abdomen pelvis wo con;Sagittal and coronal reformats were created on a separate workstation. Contrast used: mL of , (none if empty) Oral contrast used: without Oral Contrast (none if empty) CT DLP: 604.5 mGycm, Automated exposure control for dose reduction was used. FINDINGS: LOWER CHEST: Unremarkable ABDOMEN LIVER: Unremarkable GALLBLADDER AND BILE DUCTS: The gallbladder is surgically absent. PANCREAS: Unremarkable. SPLEEN: Unremarkable. ADRENAL GLANDS: Unremarkable. KIDNEYS AND URETERS: Nonobstructing calculus. No obstructive 2 mm focus in the right 3 mm calculus on the left PELVIS BLADDER: No evidence for wall thickening or mass given limitations of exam. REPRODUCTIVE: Surgical clips next to the rectum on the left possibly tubal ligation clip. The uterus is not visualized ABDOMEN & PELVIS STOMACH AND BOWEL: Small hiatal hernia, duodenum is unremarkable. No evidence of bowel obstruction. Surgical clips around the cecum. PERITONEUM/RETROPERITONEUM: No evidence of pneumoperitoneum or free fluid. VASCULATURE: No evidence of aortic aneurysm. MUSCULOSKELETAL: No acute osseous abnormalities LYMPH NODES: No gross evidence for lymphadenopathy. SOFT TISSUE/ABDOMINAL WALL: Unremarkable IMPRESSION: 1. No evidence for obstructive uropathy or renal calculus. Nonobstructing bilateral renal calculi. 2. Small hiatal hernia. [facility], , 10/09/2024 9:04 AM
[2024-10-09] MEDS: ACETAMINOPHEN TAB 500 MG TAB PO STA (09:33)
[2024-10-09 09:48] VITALS: BP 122/80; PULSE 67; TEMP 98.4
== END 2024-10-09 09:48 | disposition home or self-care (01) ==
LOC: EC 07:05
DX: N39.0 Urinary tract infection, site not specified (principal); Z88.2 Allergy status to sulfonamides; Z88.0 Allergy status to penicillin; Z88.1 Allergy status to other antibiotic agents; Z88.8 Allergy status to other drugs, medicaments and biological substances
CPT/HCPCS: 74176; 81001; 87086; 99284

== ENCOUNTER 2024-10-18 03:27 | Emergency (ER) | payer OTHER ==
[2024-10-18 03:34] VITALS: RESP 18; TEMP 98.7
[2024-10-18 04:22] LABS: Appearance,Urine Cloudy (Clear); Bacteria,Urine Rare /hpf; Bilirubin,Urine Negative (Negative); Blood,Urine Negative (Negative); Color,Urine Yellow; Glucose,Urine (UA) Negative (Negative); Hyaline Casts,Urine 7 /lpf (0-2); Ketones,Urine Negative (Negative); Leukocyte Esterase,Urine Large (Negative); Mucus,Urine Rare /hpf; Nitrite,Urine Negative (Negative); PH, Urine 5.5 (5.0-8.0); Protein,Urine 1+ (Negative); RBC,Urine 2 /hpf (0-5); Squamous Epithelial Cell,Urine 1 /hpf (0-4); WBC,Urine >182 /hpf (0-5)
--- NOTE | 2024-10-18 05:07 | ED ---
General Adult HPI - General Chief complaint: Urogenital Stated complaint: pelvic pain Time Seen by Provider: 10/18/24 04:45 Source: patient, RN notes reviewed, old records reviewed Mode of arrival: wheelchair Limitations: no limitations - History of Present Illness Initial comments: Patient is a 34-year-old female who presents emergency department complaining of dysuria as well as difficulty in urination. States she feels like she is forcing her pee out. Patient is a frequent visitor to our emergency department for chronic abdominal pain. I evaluate the patient after urinalysis was already completed and she was placed in a room. She denies any other acute complaints at this time other than the suprapubic abdominal pain as well as difficulty with urination - Related Data Home Medications Medication Instructions Recorded Confirmed Budesonide/Formoterol Fumarate 2 puff INHALATION RT-BID 09/02/24 09/24/24 [Symbicort 160-4.5 Mcg Inhaler] Escitalopram Oxalate [Lexapro] 20 mg PO HS 09/02/24 09/24/24 Gabapentin [Neurontin] 200 mg PO TID 09/02/24 09/24/24 HYDROcodone/APAP 10-325MG [[place] 1 tab PO TID PRN 09/02/24 09/24/24 10-325] Omeprazole [PriLOSEC] 40 mg PO HS 09/02/24 09/24/24 ondansetron HCL [Zofran] 8 mg PO Q12HR PRN 09/02/24 09/24/24 Ibuprofen 800 mg PO DAILY PRN 09/24/24 09/24/24 Previous Rx's Medication Instructions Recorded Prochlorperazine [Compazine] 10 mg PO Q6H #15 tab 10/01/24 Nitrofurantoin Monohyd/M-Cryst 100 mg PO Q12HR #10 cap 10/09/24 [Macrobid] Ciprofloxacin HCl [Cipro] 500 mg PO BID 7 Days #14 tab 10/18/24 Allergies Allergy/AdvReac Type Severity Reaction Status Date / Time sulfamethoxazole Allergy Severe Anaphylaxis Verified 10/18/24 03:34 [From Bactrim] trimethoprim [From Bactrim] Allergy Severe Anaphylaxis Verified 10/18/24 03:34 adhesive tape Allergy Rash/Hives Verified 10/18/24 03:34 aloe vera Allergy Rash/Hives Verified 10/18/24 03:34 amoxicillin [From Augmentin] Allergy Itching Verified 10/18/24 03:34 azithromycin Allergy Rash/Hives Verified 10/18/24 03:34 cephalexin Allergy Rash/Hives Verified 10/18/24 03:34 clavulanic acid Allergy Itching Verified 10/18/24 03:34 [From Augmentin] metronidazole [From Flagyl] Allergy Rash/Hives Verified 10/18/24 03:34 Penicillins Allergy Rash/Hives Verified 10/18/24 03:34 alprazolam [From Xanax] AdvReac MAKES Verified 10/18/24 03:34 PARANOID dicyclomine [From Bentyl] AdvReac constipatio Verified 10/18/24 03:34 n Review of Systems ROS Statement: Those systems with pertinent positive or pertinent negative responses have been documented in the HPI. Review of Systems: CONST: Denies fever EYES: Denies blurry vision ENT: Denies nasal congestion C/V: Denies Chest pain RESP: Denies shortness of breath GI: Denies abdominal pain : Endorses dysuria SKIN: Denies rash. MSK: Denies joint pain. NEURO: Denies headache ROS Other: All systems not noted in ROS Statement are negative. Past Medical History Past Medical History: Blood Disorder, GERD/Reflux Additional Past Medical History / Comment(s): Endometriosis, polycystic ovarian syndrome. IRON DEFICIENCY ANEMIA. Stomach Ulcer. Hx ovarian cyst.IBS History of Any Multi-Drug Resistant Organisms: None Reported Past Surgical History: Ablation, Appendectomy, Section, Cholecystectomy, Hernia Repair, Hysterectomy, Tubal Ligation, Uterine Ablation Additional Past Surgical History / Comment(s): Laparoscopy X2, Section X3, right ovary and right tube removed, then total hysterectomy including left ovary and left fallopian tube, cyst removed from chest, ADHESION REMOVAL FROM PAST CSECTION, vaginal/pelvic biopsy. Scar tissure removal abdomen L upper lower Past Anesthesia/Blood Transfusion Reactions: No Reported Reaction Past Psychological History: Anxiety, Depression Smoking Status: Never smoker Past Alcohol Use History: Occasional Past Drug Use History: None Reported - Past Family History Mother Family Medical History: Deep Vein Thrombosis (DVT), Hyperlipidemia Additional Family Medical History / Comment(s): Depression and anxiety. DVT to arm after surgery. General Exam - General Exam Comments Initial Comments: General: Appears in no acute distress. HEAD: Normal with no signs of head trauma. EYES: EOMI ENT: Hearing grossly intact RESPIRATORY: Clear breath sounds bilaterally. No wheezes, rales, or rhonchi. C/V: Regular rate and rhythm. S1 and S2 auscultated, no edema, peripheral pulses 2+ and intact throughout ABD: Abdomen soft, nondistended. Mild suprapubic tenderness to palpation. No guarding or rebound tenderness. No peritoneal signs. EXT: No obvious deformity SKIN: No rashes or lesions observed on exposed skin. NEURO: Alert and oriented x 4. Limitations: no limitations Course Vital Signs 10/18/24 10/18/24 03:31 05:37 Temperature 98.7 F Pulse Rate 89 78 Respiratory 18 18 Rate Blood Pressure 144/84 132/76 O2 Sat by Pulse 97 99 Oximetry Medical Decision Making - Medical Decision Making Was pt. sent in by a medical professional or institution (, [facility], MORTAR WORKER, urgent care, hospital, or group home...) When possible be specific @ -No Did you speak to anyone other than the patient for history (EMS, parent, family, police, friend...)? What history was obtained from this source @ -No Did you review nursing and triage notes (agree or disagree)? Why? @ -I reviewed and agree with nursing and triage notes Were old charts reviewed (outside hosp., previous admission, EMS record, old EKG, old radiological studies, urgent care reports/EKG's, group home records)? Report findings @ -No old charts were reviewed Differential Diagnosis (chest pain, altered mental status, abdominal pain women, abdominal pain men, vaginal bleeding, weakness, fever, dyspnea, syncope, headache, dizziness, GI bleed, back pain, seizure, CVA, palpatations, mental health, musculoskeletal)? @ -UTI, cystitis, nephrolithiasis. This list is not all inclusive. EKG interpreted by me (3pts min.). @ -None done X-rays interpreted by me (1pt min.). @ -None done CT interpreted by me (1pt min.). @ -None done U/S interpreted by me (1pt. min.). @ -None done What testing was considered but not performed or refused? (CT, X-rays, U/S, labs)? Why? @ -None What meds were considered but not given or refused? Why? @ -None Did you discuss the management of the patient with other professionals (professionals i.e. , PA, MORTAR WORKER, lab, RT, psych nurse, social media assistant, organizational research consultant, teacher, ethics officer, geriatric case manager)? Give summary @ -No Was smoking cessation discussed for >3mins.? @ -No Was critical care preformed (if so, how long)? @ -No Were there social determinants of health that impacted care today? How? (Homelessness, low income, unemployed, alcoholism, drug addiction, transportat ion, low edu. Level, literacy, decrease access to med. care, [facility], rehab)? @ -No Was there de-escalation of care discussed even if they declined (Discuss DNR or withdrawal of care, Hospice)? DNR status @ -No What co-morbidities impacted this encounter? (DM, HTN, Smoking, COPD, CAD, Cancer, CVA, ARF, Chemo, Hep., AIDS, mental health diagnosis, sleep apnea, morbid obesity)? @ -None Was patient admitted / discharged? Hospital course, mention meds given and route, prescriptions, significant lab abnormalities, going to OR and other pertinent info. @ -Based on the patient's presentation and physical exam, presents emergency department for urinary complaints. Workup completed in triage. Urinalysis positive for UTI. Patient will be started on ciprofloxacin due to allergies and her recently being on Macrobid. Urine culture will be obtained and sent. She is given IM analgesia medications. Vitals are within acceptable limits. Patient was in agreement this plan. I will provide the patient with a prescription for ciprofloxacin. I instructed the patient to follow up with their PCP in the next 1-3 days.. I explained that the patient should return to the emergency department if they experience any worsening symptoms. Strict return precautions were discussed with the patient. The patient expressed understanding of these instructions. I answered all questions that the patient had. The patient was discharged home in good condition with their prescriptions and follow up information. Undiagnosed new problem with uncertain prognosis? @ -No Drug Therapy requiring intensive monitoring for toxicity (Heparin, Nitro, Insulin, Cardizem)? @ -No Were any procedures done? @ -No Diagnosis/symptom? @ -UTI Acute, or Chronic, or Acute on Chronic? @ -Acute Uncomplicated (without systemic symptoms) or Complicated (systemic symptoms)? @ -Uncomplicated Side effects of treatment? @ -No Exacerbation, Progression, or Severe Exacerbation? @ -No Poses a threat to life or bodily function? How? (Chest pain, [place], [place], pneumonia, PE, COPD, DKA, ARF, appy, cholecystitis, CVA, Diverticulitis, Homicidal, Suicidal, threat to staff... and all critical care pts) @ -Unlikely at this time - Lab Data Lab Results 10/18/24 Range/Units 03:43 Urine Color Yellow Urine Appearance Cloudy H (Clear) Urine pH 5.5 (5.0-8.0) Ur Specific [place] 1.030 (1.001-1.035) Urine Protein 1+ H (Negative) Urine Glucose (UA) Negative (Negative) Urine Ketones Negative (Negative) Urine Blood Negative (Negative) Urine Nitrite Negative (Negative) Urine Bilirubin Negative (Negative) Urine Urobilinogen 2.0 (<2.0) mg/dL Ur Leukocyte Esterase Large H (Negative) Urine RBC 2 (0-5) /hpf Urine WBC >182 H (0-5) /hpf Ur Squamous Epith Cells 1 (0-4) /hpf Urine Bacteria Rare H (None) /hpf Hyaline Casts 7 H (0-2) /lpf Urine Mucus Rare H (None) /hpf Disposition Clinical Impression: UTI (urinary tract infection) Disposition: HOME SELF-CARE Condition: Good Instructions (If sedation given, give patient instructions): Urinary Tract Infection in Women (ED) Prescriptions: Ciprofloxacin HCl [Cipro] 500 mg PO BID 7 Days #14 tab Is patient prescribed a controlled substance at d/c from ED?: No Referrals: Christiano Gutierrez MD [Primary Care Provider] - 1-2 days Time of Disposition: 05:06
[2024-10-18] MEDS: CIPROFLOXACIN HCL 500 MG TAB PO STA (05:28)
[2024-10-18] MEDS: HYDROmorphone 1 MG/ML 1 ML SYRINGE IM STA (05:29)
[2024-10-18] MEDS: KETOROLAC 15 MG/ML 1 ML VIAL IM STA (05:29)
[2024-10-18 05:38] VITALS: BP 132/76; PULSE 78
== END 2024-10-18 05:37 | disposition home or self-care (01) ==
LOC: EC 03:27
DX: N39.0 Urinary tract infection, site not specified (principal); Z88.2 Allergy status to sulfonamides; Z88.1 Allergy status to other antibiotic agents; Z91.048 Other nonmedicinal substance allergy status; Z88.0 Allergy status to penicillin; Z88.8 Allergy status to other drugs, medicaments and biological substances
CPT/HCPCS: 81001; 87086; 99283; 96372 ×2; J1171; J1885

== ENCOUNTER 2024-10-28 00:56 | Emergency (ER) | payer OTHER ==
--- NOTE | 2024-10-28 01:18 | ED ---
General Adult HPI - General Stated complaint: rt side abd pain Time Seen by Provider: 10/28/24 00:59 Source: patient, RN notes reviewed, old records reviewed Mode of arrival: wheelchair Limitations: no limitations - History of Present Illness Initial comments: 34-year-old female presents emergency department complaint of lower abdominal pain. Patient states on right side. This has been a chronic ongoing issue. Patient has been seen multiple times for similar complaints. Patient had a prior oophorectomy salpingectomy right, appendectomy cholecystectomy along with adhesion removal. Patient denies any change in bowel habits no rectal bleeding patient has a fever chills no other complaints. - Related Data Home Medications Medication Instructions Recorded Confirmed Budesonide/Formoterol Fumarate 2 puff INHALATION RT-BID 09/02/24 09/24/24 [Symbicort 160-4.5 Mcg Inhaler] Escitalopram Oxalate [Lexapro] 20 mg PO HS 09/02/24 09/24/24 Gabapentin [Neurontin] 200 mg PO TID 09/02/24 09/24/24 HYDROcodone/APAP 10-325MG [[place] 1 tab PO TID PRN 09/02/24 09/24/24 10-325] Omeprazole [PriLOSEC] 40 mg PO HS 09/02/24 09/24/24 ondansetron HCL [Zofran] 8 mg PO Q12HR PRN 09/02/24 09/24/24 Ibuprofen 800 mg PO DAILY PRN 09/24/24 09/24/24 Previous Rx's Medication Instructions Recorded Prochlorperazine [Compazine] 10 mg PO Q6H #15 tab 10/01/24 Nitrofurantoin Monohyd/M-Cryst 100 mg PO Q12HR #10 cap 10/09/24 [Macrobid] Ciprofloxacin HCl [Cipro] 500 mg PO BID 7 Days #14 tab 10/18/24 Allergies Allergy/AdvReac Type Severity Reaction Status Date / Time sulfamethoxazole Allergy Severe Anaphylaxis Verified 10/18/24 03:34 [From Bactrim] trimethoprim [From Bactrim] Allergy Severe Anaphylaxis Verified 10/18/24 03:34 adhesive tape Allergy Rash/Hives Verified 10/18/24 03:34 aloe vera Allergy Rash/Hives Verified 10/18/24 03:34 amoxicillin [From Augmentin] Allergy Itching Verified 10/18/24 03:34 azithromycin Allergy Rash/Hives Verified 10/18/24 03:34 cephalexin Allergy Rash/Hives Verified 10/18/24 03:34 clavulanic acid Allergy Itching Verified 10/18/24 03:34 [From Augmentin] metronidazole [From Flagyl] Allergy Rash/Hives Verified 10/18/24 03:34 Penicillins Allergy Rash/Hives Verified 10/18/24 03:34 alprazolam [From Xanax] AdvReac MAKES Verified 10/18/24 03:34 PARANOID dicyclomine [From Bentyl] AdvReac constipatio Verified 10/18/24 03:34 n Review of Systems ROS Statement: Those systems with pertinent positive or pertinent negative responses have been documented in the HPI. ROS Other: All systems not noted in ROS Statement are negative. Past Medical History Past Medical History: Blood Disorder, GERD/Reflux Additional Past Medical History / Comment(s): Endometriosis, polycystic ovarian syndrome. IRON DEFICIENCY ANEMIA. Stomach Ulcer. Hx ovarian cyst.IBS History of Any Multi-Drug Resistant Organisms: None Reported Past Surgical History: Ablation, Appendectomy, Section, Cholecystectomy, Hernia Repair, Hysterectomy, Tubal Ligation, Uterine Ablation Additional Past Surgical History / Comment(s): Laparoscopy X2, Section X3, right ovary and right tube removed, then total hysterectomy including left ovary and left fallopian tube, cyst removed from chest, ADHESION REMOVAL FROM PAST CSECTION, vaginal/pelvic biopsy. Scar tissure removal abdomen L upper lower Past Anesthesia/Blood Transfusion Reactions: No Reported Reaction Past Psychological History: Anxiety, Depression Smoking Status: Never smoker Past Alcohol Use History: Occasional Past Drug Use History: None Reported - Past Family History Mother Family Medical History: Deep Vein Thrombosis (DVT), Hyperlipidemia Additional Family Medical History / Comment(s): Depression and anxiety. DVT to arm after surgery. General Exam Limitations: no limitations General appearance: alert, in no apparent distress Head exam: Present: atraumatic, normocephalic, normal inspection Eye exam: Present: normal appearance, PERRL, EOMI. Absent: scleral icterus, conjunctival injection, periorbital swelling ENT exam: Present: normal exam, normal oropharynx, mucous membranes moist Neck exam: Present: normal inspection, full ROM. Absent: tenderness, meningismus, lymphadenopathy Respiratory exam: Present: normal lung sounds bilaterally. Absent: respiratory distress, wheezes, rales, rhonchi, stridor Cardiovascular Exam: Present: regular rate, normal rhythm, normal heart sounds. Absent: systolic murmur, diastolic murmur, rubs, gallop, clicks GI/Abdominal exam: Present: soft, tenderness (Very minimal), normal bowel sounds. Absent: distended, guarding, rebound, rigid Course Vital Signs 10/28/24 00:57 Temperature 97.8 F Pulse Rate 89 Respiratory 16 Rate Blood Pressure 122/89 O2 Sat by Pulse 96 Oximetry Medical Decision Making - Medical Decision Making Was pt. sent in by a medical professional or institution (, PA, TRAVELING PHLEBOTOMIST, urgent care, hospital, or group home...) When possible be specific @ -No Did you speak to anyone other than the patient for history (EMS, parent, family, police, friend...)? What history was obtained from this source @ -No Did you review nursing and triage notes (agree or disagree)? Why? @ -I reviewed and agree with nursing and triage notes Were old charts reviewed (outside hosp., previous admission, EMS record, old EKG, old radiological studies, urgent care reports/EKG's, group home records)? Report findings @ -No old charts were reviewed Differential Diagnosis (chest pain, altered mental status, abdominal pain women, abdominal pain men, vaginal bleeding, weakness, fever, dyspnea, syncope, headache, dizziness, GI bleed, back pain, seizure, CVA, palpatations, mental health, musculoskeletal)? @ -Differential Abdominal Pain Women: Appendicitis, Cholecystitis, diverticulosis, ischemic bowel, pancreatitis, hepatitis, UTI, gastroenteritis, AAA, incarcerated hernia, bowel obstruction, constipation, inflammatory bowel, hepatitis, peptic ulcer disease, splenic infarction, perforated viscus, vulvitis, ovarian torsion, PID, kidney stone, placenta abruption, this is not meant to be an all-inclusive list EKG interpreted by me (3pts min.). @ -[None X-rays interpreted by me (1pt min.). @ -None done CT interpreted by me (1pt min.). @ -None done U/S interpreted by me (1pt. min.). @ -None done What testing was considered but not performed or refused? (CT, X-rays, U/S, labs)? Why? @ -None What meds were considered but not given or refused? Why? @ -None Did you discuss the management of the patient with other professionals (professionals i.e. , PA, TRAVELING PHLEBOTOMIST, lab, RT, psych nurse, high school social studies tutor, knocker out, teacher, agricultural technical officer, case briefer)? Give summary @ -No Was smoking cessation discussed for >3mins.? @ -No Was critical care preformed (if so, how long)? @ -No Were there social determinants of health that impacted care today? How? (Homelessness, low income, unemployed, alcoholism, drug addiction, transportation, low edu. Level, literacy, decrease access to med. care, [facility], rehab)? @ -No Was there de-escalation of care discussed even if they declined (Discuss DNR or withdrawal of care, Hospice)? DNR status @ -No What co-morbidities impacted this encounter? (DM, HTN, Smoking, COPD, CAD, Cancer, CVA, ARF, Chemo, Hep., AIDS, mental health diagnosis, sleep apnea, morbid obesity)? @ -None Was patient admitted / discharged? Hospital course, mention meds given and route, prescriptions, significant lab abnormalities, going to OR and other pertinent info. @ -discharge patient has chronic abdominal pain. Urinalysis does not show any acute evidence of infection. Patient is discharged in stable condition patient advised to follow-up with PCP, return parameters discussed. Undiagnosed new problem with uncertain prognosis? @ -No Drug Therapy requiring intensive monitoring for toxicity (Heparin, Nitro, Insulin, Cardizem)? @ -No Were any procedures done? @ -No Diagnosis/symptom? @Abdominal pain Acute, or Chronic, or Acute on Chronic? @ -Chronic Uncomplicated (without systemic symptoms) or Complicated (systemic symptoms)? @ -Uncomplicated Side effects of treatment? @ -No Exacerbation, Progression, or Severe Exacerbation? @ -No Poses a threat to life or bodily function? How? (Chest pain, [place], [place], pneumonia, PE, COPD, DKA, ARF, appy, cholecystitis, CVA, Diverticulitis, Homicidal, Nisha cidal, threat to staff... and all critical care pts) @ -No - Lab Data Lab Results 10/28/24 Range/Units 01:19 Urine Color Colorless Urine Appearance Clear (Clear) Urine pH 6.5 (5.0-8.0) Ur Specific [place] 1.005 (1.001-1.035) Urine Protein Negative (Negative) Urine Glucose (UA) Negative (Negative) Urine Ketones Negative (Negative) Urine Blood Negative (Negative) Urine Nitrite Negative (Negative) Urine Bilirubin Negative (Negative) Urine Urobilinogen <2.0 (<2.0) mg/dL Ur Leukocyte Esterase Negative (Negative) Disposition Clinical Impression: Chronic abdominal pain Disposition: HOME SELF-CARE Condition: Stable Instructions (If sedation given, give patient instructions): Abdominal Pain (ED) Additional Instructions: Please return to the Emergency Department if symptoms worsen or any other concerns. Is patient prescribed a controlled substance at d/c from ED?: No Referrals: Christiano Gutierrez MD [Primary Care Provider] - 1-2 days Time of Disposition: 01:58
[2024-10-28 01:32] LABS: Appearance,Urine Clear (Clear); Bilirubin,Urine Negative (Negative); Blood,Urine Negative (Negative); Color,Urine Colorless; Glucose,Urine (UA) Negative (Negative); Ketones,Urine Negative (Negative); Leukocyte Esterase,Urine Negative (Negative); Nitrite,Urine Negative (Negative); PH, Urine 6.5 (5.0-8.0); Protein,Urine Negative (Negative); Specific Gravity,Urine 1.005 (1.001-1.035); Urobilinogen,Urine <2.0 mg/dL (<2.0)
[2024-10-28] MEDS: ACETAMINOPHEN TAB 325 MG TAB PO STA (02:05)
[2024-10-28] MEDS: ONDANSETRON ODT 4 MG TAB PO STA (02:06)
[2024-10-28 02:08] VITALS: BP 130/84; PULSE 84; RESP 18; TEMP 98.2
== END 2024-10-28 02:08 | disposition home or self-care (01) ==
LOC: EC 00:56
DX: G89.29 Other chronic pain (principal); Z88.0 Allergy status to penicillin; Z88.1 Allergy status to other antibiotic agents; Z88.2 Allergy status to sulfonamides; Z91.02 Food additives allergy status; Z91.09 Other allergy status, other than to drugs and biological substances; Z88.8 Allergy status to other drugs, medicaments and biological substances
CPT/HCPCS: 81003; 99283

== ENCOUNTER 2024-10-31 21:20 | Emergency (ER) | payer OTHER ==
--- NOTE | 2024-10-31 22:01 | ED ---
Abdominal Pain HPI - General Chief Complaint: Abdominal Pain Stated Complaint: pelvic pain, nausea Time Seen by Provider: 10/31/24 21:33 Source: patient, RN notes reviewed Mode of arrival: ambulatory Limitations: no limitations - History of Present Illness Initial Comments: This is a 34-year-old female who presents to the emergency department for pelvic pain. Patient states that she has had increasing pelvic pain for the last several weeks. States that the pain makes her nauseous, causing her to vomit. She is scheduled for an EGD in 2 days and is only taking her gabapentin. She is not taking her [place], ibuprofen, or naproxen given her upcoming surgery, as she was not sure what she could take. States that she keeps following up with her PCP to get checked for a UTI, however her urine always comes back clean. Patient is very well-known to this emergency department for recurrent visits related to the same complaint. She has also had a complete hysterectomy including bilateral salpingo-oophorectomy. She was referred to the pain clinic and has an appointment coming up in a couple of weeks. MD Complaint: abdominal pain - Related Data Home Medications Medication Instructions Recorded Confirmed Budesonide/Formoterol Fumarate 2 puff INHALATION RT-BID 09/02/24 09/24/24 [Symbicort 160-4.5 Mcg Inhaler] Escitalopram Oxalate [Lexapro] 20 mg PO HS 09/02/24 09/24/24 Gabapentin [Neurontin] 200 mg PO TID 09/02/24 09/24/24 HYDROcodone/APAP 10-325MG [[place] 1 tab PO TID PRN 09/02/24 09/24/24 10-325] Omeprazole [PriLOSEC] 40 mg PO HS 09/02/24 09/24/24 ondansetron HCL [Zofran] 8 mg PO Q12HR PRN 09/02/24 09/24/24 Ibuprofen 800 mg PO DAILY PRN 09/24/24 09/24/24 Previous Rx's Medication Instructions Recorded Prochlorperazine [Compazine] 10 mg PO Q6H #15 tab 10/01/24 Nitrofurantoin Monohyd/M-Cryst 100 mg PO Q12HR #10 cap 10/09/24 [Macrobid] Ciprofloxacin HCl [Cipro] 500 mg PO BID 7 Days #14 tab 10/18/24 Allergies Allergy/AdvReac Type Severity Reaction Status Date / Time sulfamethoxazole Allergy Severe Anaphylaxis Verified 10/31/24 21:24 [From Bactrim] trimethoprim [From Bactrim] Allergy Severe Anaphylaxis Verified 10/31/24 21:24 adhesive tape Allergy Rash/Hives Verified 10/31/24 21:24 aloe vera Allergy Rash/Hives Verified 10/31/24 21:24 amoxicillin [From Augmentin] Allergy Itching Verified 10/31/24 21:24 azithromycin Allergy Rash/Hives Verified 10/31/24 21:24 cephalexin Allergy Rash/Hives Verified 10/31/24 21:24 clavulanic acid Allergy Itching Verified 10/31/24 21:24 [From Augmentin] metronidazole [From Flagyl] Allergy Rash/Hives Verified 10/31/24 21:24 Penicillins Allergy Rash/Hives Verified 10/31/24 21:24 alprazolam [From Xanax] AdvReac MAKES Verified 10/31/24 21:24 PARANOID dicyclomine [From Bentyl] AdvReac constipatio Verified 10/31/24 21:24 n Review of Systems ROS Statement: Those systems with pertinent positive or pertinent negative responses have been documented in the HPI. ROS Other: All systems not noted in ROS Statement are negative. Past Medical History Past Medical History: Blood Disorder, GERD/Reflux Additional Past Medical History / Comment(s): Endometriosis, polycystic ovarian syndrome. IRON DEFICIENCY ANEMIA. Stomach Ulcer. Hx ovarian cyst.IBS History of Any Multi-Drug Resistant Organisms: None Reported Past Surgical History: Ablation, Appendectomy, Section, Cholecystectomy, Hernia Repair, Hysterectomy, Tubal Ligation, Uterine Ablation Additional Past Surgical History / Comment(s): Laparoscopy X2, Section X3, right ovary and right tube removed, then total hysterectomy including left ovary and left fallopian tube, cyst removed from chest, ADHESION REMOVAL FROM PAST CSECTION, vaginal/pelvic biopsy. Scar tissure removal abdomen L upper lower Past Anesthesia/Blood Transfusion Reactions: No Reported Reaction Past Psychological History: Anxiety, Depression Smoking Status: Never smoker Past Alcohol Use History: Occasional Past Drug Use History: None Reported - Past Family History Mother Family Medical History: Deep Vein Thrombosis (DVT), Hyperlipidemia Additional Family Medical History / Comment(s): Depression and anxiety. DVT to arm after surgery. General Exam Limitations: no limitations General appearance: alert, in no apparent distress Head exam: Present: atraumatic, normocephalic, normal inspection Respiratory exam: Present: normal lung sounds bilaterally. Absent: respiratory distress, wheezes, rales, rhonchi, stridor Cardiovascular Exam: Present: regular rate, normal rhythm GI/Abdominal exam: Present: soft, tenderness (Suprapubic), normal bowel sounds. Absent: distended Neurological exam: Present: alert, oriented X3, CN II-XII intact Psychiatric exam: Present: normal affect, normal mood Skin exam: Present: warm, dry, intact, normal color. Absent: rash Course Vital Signs 10/31/24 21:21 Temperature 98.5 F Pulse Rate 82 Respiratory 18 Rate Blood Pressure 135/91 O2 Sat by Pulse 99 Oximetry Medical Decision Making - Medical Decision Making This is a 34-year-old female who presents to the emergency department for abdominal pain. Was pt. sent in by a medical professional or institution? @ -No Did you speak to anyone other than the patient for history? @ -No Did you review nursing and triage notes? @ -Yes, and I agree, it is accurate with regards to the patient's symptoms. Were old charts reviewed? @ -No Differential Diagnosis? @ -Differential Abdominal Pain Women: Appendicitis, Cholecystitis, diverticulosis, ischemic bowel, pancreatitis, hepatitis, UTI, gastroenteritis, AAA, incarcerated hernia, bowel obstruction, constipation, inflammatory bowel, hepatitis, peptic ulcer disease, splenic infarction, perforated viscus, vulvitis, ovarian torsion, PID, kidney stone, placenta abruption, this is not meant to be an all-inclusive list EKG interpreted by me (3pts min.)? @ -Not obtained X-rays interpreted by me (1pt min.)? @ -Not obtained CT interpreted by me (1pt min.)? @ -Not obtained U/S interpreted by me (1pt. min.)? @ -Not obtained What testing was considered but not performed? (CT, X-rays, U/S, labs)? Why? @ -None What meds were considered but not given? Why? @ -None Did you discuss the management of the patient with other professionals? @ -No Did you reconcile home meds? @ -No Was smoking cessation discussed for >3mins.? @ -No Was critical care preformed (if so, how long)? @ -No Were there social determinants of health that impacted care today? How? (Homelessness, low income, unemployed, alcoholism, drug addiction, transportatio n, low edu. Level, literacy, decrease access to med. care, snf, rehab)? @ -No Was there de-escalation of care discussed even if they declined? (Discuss DNR or withdrawal of care, Hospice)? @ -No What co-morbidities impacted this encounter? (DM, HTN, Smoking, COPD, CAD, Cancer, CVA, Hep., AIDS, mental health diagnosis, sleep apnea, morbid obesity)? @ -None Was patient admitted / discharged? @ -Discharged. Lab work unremarkable. Urinalysis negative for signs of infection. Patient has had multiple CT scans and abdominal x-rays for the same complaints revealing no acute findings and we did not repeat any imaging today. She has a EGD appointment in 2 days. Advised she discuss her concerns regarding the abdominal pain with her surgeon as well and follow-up with her primary care provider for reevaluation. She will also follow-up with the pain clinic in a couple of weeks. Patient discharged home in stable condition. Case discussed with ED attending Dr. Araujo. Return precautions reviewed in depth, the patient is instructed to return to the emergency department with any new, worsening, or concerning symptoms. Patient verbalized understanding. Undiagnosed new problem with uncertain prognosis? @ -None Drug Therapy requiring intensive monitoring for toxicity (Heparin, Nitro, Insulin, Cardizem)? @ -None Were any procedures done? @ -None Diagnosis/symptom? @ -Abdominal pain Acute, or Chronic, or Acute on Chronic? @ -Chronic Uncomplicated (without systemic symptoms) or Complicated (systemic symptoms)? @ -Uncomplicated Side effects of treatment? @ -None Exacerbation, Progression, or Severe Exacerbation] @ -Exacerbation Poses a threat to life or bodily function? @ -No - Lab Data Result diagrams: 10/31/24 20:19 10/31/24 20:19 Lab Results 10/31/24 10/31/24 10/31/24 Range/Units 20:19 20:19 20:19 WBC 5.38 (4.50-10.00) 10*3/uL RBC 3.52 L (4.10-5.20) 10*6/uL Hgb 11.1 L (12.0-15.0) g/dL Hct 32.7 L (37.2-46.3) % MCV 92.9 (80.0-97.0) fL MCH 31.5 (27.0-32.0) pg MCHC 33.9 (32.0-37.0) g/dL Plt Count 291 (140-440) 10*3/uL MPV 9.7 (9.5-12.2) fL Immature Gran % (Auto) 0.2 % Neutrophils % 67.2 % Lymphocytes % 26.6 % Monocytes % 5.0 % Eosinophils % 0.6 % Basophils % 0.4 % Immature Gran # 0.01 (0.00-0.04) 10*3/uL Neutrophils # 3.62 (1.80-7.70) 10*3/uL Lymphocytes # 1.43 (0.90-5.00) 10*3/uL Monocytes # 0.27 (0.20-1.00) 10*3/uL Eosinophils # 0.03 L (0.04-0.35) 10*3/uL Basophils # 0.02 (0.00-0.10) 10*3/uL Sodium 140 (137-145) mmol/L Potassium 4.1 (3.5-5.1) mmol/L Chloride 104 (98-107) mmol/L Carbon Dioxide 30 (22-30) mmol/L Anion Gap 6 mmol/L BUN 15 (7-17) mg/dL Creatinine 0.61 (0.52-1.04) mg/dL Est GFR (CKD-EPI)AfAm >90 (>60 ml/min/1.73 sqM) Est GFR (CKD-EPI)NonAf >90 (>60 ml/min/1.73 sqM) Glucose 96 (74-99) mg/dL Plasma Lactic Acid S[place] (0.7-2.0) mmol/L Calcium 10.1 (8.4-10.2) mg/dL Total Bilirubin 0.6 (0.2-1.3) mg/dL AST 24 (14-36) U/L ALT 20 (4-34) U/L Alkaline Phosphatase 100 (38-126) U/L Total Protein 6.9 (6.3-8.2) g/dL Albumin 4.2 (3.5-5.0) g/dL Urine Color Colorless Urine Appearance Cloudy H (Clear) Urine pH 7.5 (5.0-8.0) Ur Specific [place] 1.012 (1.001-1.035) Urine Protein Negative (Negative) Urine Glucose (UA) Negative (Negative) Urine Ketones Negative (Negative) Urine Blood Negative (Negative) Urine Nitrite Negative (Negative) Urine Bilirubin Negative (Negative) Urine Urobilinogen <2.0 (<2.0) mg/dL Ur Leukocyte Esterase Negative (Negative) Urine RBC 2 (0-5) /hpf Urine WBC 1 (0-5) /hpf Ur Squamous Epith Cells 1 (0-4) /hpf Amorphous Sediment Occasional H (None) /hpf 10/31/24 Range/Units 20:19 WBC (4.50-10.00) 10*3/uL RBC (4.10-5.20) 10*6/uL Hgb (12.0-15.0) g/dL Hct (37.2-46.3) % MCV (80.0-97.0) fL MCH (27.0-32.0) pg MCHC (32.0-37.0) g/dL Plt Count (140-440) 10*3/uL MPV (9.5-12.2) fL Immature Gran % (Auto) % Neutrophils % % Lymphocytes % % Monocytes % % Eosinophils % % Basophils % % Immature Gran # (0.00-0.04) 10*3/uL Neutrophils # (1.80-7.70) 10*3/uL Lymphocytes # (0.90-5.00) 10*3/uL Monocytes # (0.20-1.00) 10*3/uL Eosinophils # (0.04-0.35) 10*3/uL Basophils # (0.00-0.10) 10*3/uL Sodium (137-145) mmol/L Potassium (3.5-5.1) mmol/L Chloride (98-107) mmol/L Carbon Dioxide (22-30) mmol/L Anion Gap mmol/L BUN (7-17) mg/dL Creatinine (0.52-1.04) mg/dL Est GFR (CKD-EPI)AfAm (>60 ml/min/1.73 sqM) Est GFR (CKD-EPI)NonAf (>60 ml/min/1.73 sqM) Glucose (74-99) mg/dL Plasma Lactic Acid [place] 1.1 (0.7-2.0) mmol/L Calcium (8.4-10.2) mg/dL Total Bilirubin (0.2-1.3) mg/dL AST (14-36) U/L ALT (4-34) U/L Alkaline Phosphatase (38-126) U/L Total Protein (6.3-8.2) g/dL Albumin (3.5-5.0) g/dL Urine Color Urine Appearance (Clear) Urine pH (5.0-8.0) Ur Specific [place] (1.001-1.035) Urine Protein (Negative) Urine Glucose (UA) (Negative) Urine Ketones (Negative) Urine Blood (Negative) Urine Nitrite (Negative) Urine Bilirubin (Negative) Urine Urobilinogen (<2.0) mg/dL Ur Leukocyte Esterase (Negative) Urine RBC (0-5) /hpf Urine WBC (0-5) /hpf Ur Squamous Epith Cells (0-4) /hpf Amorphous Sediment (None) /hpf Disposition Clinical Impression: Pelvic pain, Nausea and vomiting Disposition: HOME SELF-CARE Instructions (If sedation given, give patient instructions): Pelvic Pain (ED) Additional Instructions: Return to the emergency department with any new, worsening, or concerning symptoms. You can take your [place] before surgery, just make sure you avoid anti-inflammatories like ibuprofen or naproxen. Discuss the concern of your pelvic pressure with your surgeon and primary care provider. Is patient prescribed a controlled substance at d/c from ED?: No Referrals: Christiano Gutierrez MD [Primary Care Provider] - 1-2 days Time of Disposition: 23:10
[2024-10-31] MEDS: SODIUM CHLORIDE 0.9% 1,000 ML IV ONE (22:27)
[2024-10-31] MEDS: HYDROmorphone 1 MG/ML 1 ML SYRINGE IVP STA ×2 (22:28→23:16)
[2024-10-31] MEDS: METOCLOPRAMIDE 5 MG/ML 2 ML VIAL IVP STA (22:29)
[2024-10-31] MEDS: ORPHENADRINE 30 MG/ML 2 ML VIAL IVP STA (22:30)
[2024-10-31 22:39] LABS: Basophils # (A) 0.02 10*3/uL (0.00-0.10); Basophils % (A) 0.4 %; Eosinophils # (A) 0.03 10*3/uL (0.04-0.35); Eosinophils % (A) 0.6 %; HCT 32.7 % (37.2-46.3); HGB 11.1 g/dL (12.0-15.0); Lymphocytes # (A) 1.43 10*3/uL (0.90-5.00); Lymphocytes % (A) 26.6 %; MCH 31.5 pg (27.0-32.0); MCHC 33.9 g/dL (32.0-37.0); MCV 92.9 fL (80.0-97.0); Mean Platelet Volume 9.7 fL (9.5-12.2); Monocytes # (A) 0.27 10*3/uL (0.20-1.00); Neutrophils # (A) 3.62 10*3/uL (1.80-7.70); Neutrophils % (A) 67.2 %; Platelet Count 291 10*3/uL (140-440); RBC 3.52 10*6/uL (4.10-5.20); RDW 13.7 % (11.5-14.5); WBC 5.38 10*3/uL (4.50-10.00)
[2024-10-31 22:48] LABS: ALT 20 U/L (4-34); AST 24 U/L (14-36); African American GFR (CKD) >90 (>60 ml/min/1.73 sqM); Albumin 4.2 g/dL (3.5-5.0); Alkaline Phosphatase 100 U/L (38-126); Amorphous Sediment,Urine Occasional /hpf; Anion Gap 6 mmol/L; Appearance,Urine Cloudy (Clear); Bilirubin,Urine Negative (Negative); Blood Urea Nitrogen 15 mg/dL (7-17); Blood,Urine Negative (Negative); Calcium 10.1 mg/dL (8.4-10.2); Carbon Dioxide 30 mmol/L (22-30); Chloride 104 mmol/L (98-107); Color,Urine Colorless; Glucose 96 mg/dL (74-99); Glucose,Urine (UA) Negative (Negative); Ketones,Urine Negative (Negative); Leukocyte Esterase,Urine Negative (Negative); Nitrite,Urine Negative (Negative); Non-African American GFR(CKD) >90 (>60 ml/min/1.73 sqM); PH, Urine 7.5 (5.0-8.0); Potassium 4.1 mmol/L (3.5-5.1); Protein,Urine Negative (Negative); RBC,Urine 2 /hpf (0-5); Sodium 140 mmol/L (137-145); Specific Gravity,Urine 1.012 (1.001-1.035); Squamous Epithelial Cell,Urine 1 /hpf (0-4); Total Bilirubin 0.6 mg/dL (0.2-1.3); Total Protein 6.9 g/dL (6.3-8.2); Urobilinogen,Urine <2.0 mg/dL (<2.0); WBC,Urine 1 /hpf (0-5)
[2024-10-31 23:22] VITALS: BP 151/89; PULSE 79; RESP 16; TEMP 98.6
== END 2024-10-31 23:23 | disposition home or self-care (01) ==
LOC: EC 21:20
DX: R10.2 Pelvic and perineal pain (principal); R11.2 Nausea with vomiting, unspecified; Z88.0 Allergy status to penicillin; Z88.1 Allergy status to other antibiotic agents; Z88.2 Allergy status to sulfonamides; Z91.02 Food additives allergy status; Z91.09 Other allergy status, other than to drugs and biological substances; Z88.8 Allergy status to other drugs, medicaments and biological substances
CPT/HCPCS: 36415; 80053; 83605; 85025; 81001; 99284; 96374; 96375; 96376; 96361; J2360; J2765; J1171

== ENCOUNTER 2024-11-02 10:58 | Day surgery (SDC) | payer OTHER ==
[2024-11-02] MEDS ORDERED: LIDOCAINE 1% (10MG/ML) FOR IV START INTRADERMA PRN (11:13)
[2024-11-02] MEDS: IV FLUID CONTINUATION 1,000 ML IV ONE (11:16)
[2024-11-02 11:19] VITALS: TEMP 97
[2024-11-02] MEDS: LACTATED RINGERS 1,000 ML IV SCH (11:30)
[2024-11-02] MEDS ORDERED: PROPOFOL 10 MG/ML 20 ML VIAL IV ONE (12:17)
[2024-11-02] MEDS ORDERED: LIDOCAINE 1% INJ 10MG/ML (20 ML MDV) ONE (12:17)
[2024-11-02 12:37] VITALS: RESP 16
[2024-11-02 12:52] VITALS: BP 112/68; PULSE 72
--- NOTE | 2024-12-06 15:49 | P.OP ---
Date of Procedure: 11/02/24 Preoperative Diagnosis: GERD. Hiatal Hernia Postoperative Diagnosis: Gastritis. Hiatal Hernia Procedure(s) Performed: EGD with Biopsy Anesthesia: MAC Surgeon: Marco A Clark Pathology: other (Antrum Biopsy) Condition: stable Disposition: PACU Description of Procedure: Informed consent was obtained. The procedure, its risks, benefits, and alternatives were discussed. The patient was placed in the left lateral decubitus position. The patient was sedated. The endoscope was inserted into the oropharynx and guided under direct vision into the esophagus, stomach, and duodenum. The duodenal bulb and second portion were unremarkable. The scope was withdrawn to the stomach and retroflexed. There was no increased fluid, food or secretions in the upper gastrointestinal tract. There was very minimal, nonspecific, patchy antral erythema. Gastritis was present. A hiatal hernia was present. Biopsies were obtained for Helicobacter pylori. No erosions or ulcers. The scope was withdrawn to the esophagus. No Barretts or esophagitis. The patient tolerated the procedure very well. The patient was then transferred to the recovery area in good condition. There were no apparent complications.
== END 2024-11-02 13:14 | disposition home or self-care (01) ==
LOC: ORWHC2ENDO 10:58
PROVIDERS: ATTEND Surgery
DX: K29.50 Unspecified chronic gastritis without bleeding (principal); K44.9 Diaphragmatic hernia without obstruction or gangrene; K21.9 Gastro-esophageal reflux disease without esophagitis
CPT/HCPCS: 88305; 43239; J2003; J2704

== ENCOUNTER 2024-11-06 06:09 | Emergency (ER) | payer OTHER ==
--- NOTE | 2024-11-06 06:39 | ED ---
Abdominal Pain HPI - General Chief Complaint: Abdominal Pain Stated Complaint: Pelvic pain Time Seen by Provider: 11/06/24 06:17 Source: patient, RN notes reviewed Mode of arrival: ambulatory Limitations: no limitations - History of Present Illness Initial Comments: This is a 34 year old female who presents to the emergency department for abdominal pain. Patient is well-known to this emergency department for abdominal pain and other various complaints. States that she had been doing well in terms of her pain. 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 Also reports some burning with urination. MD Complaint: abdominal pain - Related Data Home Medications Medication Instructions Recorded Confirmed Budesonide/Formoterol Fumarate 2 puff INHALATION RT-BID 09/02/24 09/24/24 [Symbicort 160-4.5 Mcg Inhaler] Escitalopram Oxalate [Lexapro] 20 mg PO HS 09/02/24 09/24/24 Gabapentin [Neurontin] 200 mg PO TID 09/02/24 09/24/24 HYDROcodone/APAP 10-325MG [[place] 1 tab PO TID PRN 09/02/24 09/24/24 10-325] Omeprazole [PriLOSEC] 40 mg PO HS 09/02/24 09/24/24 ondansetron HCL [Zofran] 8 mg PO Q12HR PRN 09/02/24 09/24/24 Ibuprofen 800 mg PO DAILY PRN 09/24/24 09/24/24 Previous Rx's Medication Instructions Recorded Prochlorperazine [Compazine] 10 mg PO Q6H #15 tab 10/01/24 Nitrofurantoin Monohyd/M-Cryst 100 mg PO Q12HR #10 cap 10/09/24 [Macrobid] Ciprofloxacin HCl [Cipro] 500 mg PO BID 7 Days #14 tab 10/18/24 Allergies Allergy/AdvReac Type Severity Reaction Status Date / Time sulfamethoxazole Allergy Severe Anaphylaxis Verified 11/06/24 06:15 [From Bactrim] trimethoprim [From Bactrim] Allergy Severe Anaphylaxis Verified 11/06/24 06:15 adhesive tape Allergy Rash/Hives Verified 11/06/24 06:15 aloe vera Allergy Rash/Hives Verified 11/06/24 06:15 amoxicillin [From Augmentin] Allergy Itching Verified 11/06/24 06:15 azithromycin Allergy Rash/Hives Verified 11/06/24 06:15 cephalexin Allergy Rash/Hives Verified 11/06/24 06:15 clavulanic acid Allergy Itching Verified 11/06/24 06:15 [From Augmentin] metronidazole [From Flagyl] Allergy Rash/Hives Verified 11/06/24 06:15 Penicillins Allergy Rash/Hives Verified 11/06/24 06:15 alprazolam [From Xanax] AdvReac MAKES Verified 11/06/24 06:15 PARANOID dicyclomine [From Bentyl] AdvReac constipatio Verified 11/06/24 06:15 n Review of Systems ROS Statement: Those systems with pertinent positive or pertinent negative responses have been documented in the HPI. ROS Other: All systems not noted in ROS Statement are negative. Past Medical History Past Medical History: Blood Disorder, GERD/Reflux Additional Past Medical History / Comment(s): Endometriosis, polycystic ovarian syndrome. IRON DEFICIENCY ANEMIA. Stomach Ulcer. Hx ovarian cyst.IBS History of Any Multi-Drug Resistant Organisms: None Reported Past Surgical History: Ablation, Appendectomy, Section, Cholecystectomy, Hernia Repair, Hysterectomy, Tubal Ligation, Uterine Ablation Additional Past Surgical History / Comment(s): Laparoscopy X2, Section X3, right ovary and right tube removed, then total hysterectomy including left ovary and left fallopian tube, cyst removed from chest, ADHESION REMOVAL FROM PAST CSECTION, vaginal/pelvic biopsy. Scar tissure removal abdomen L upper lower Past Anesthesia/Blood Transfusion Reactions: No Reported Reaction Past Psychological History: Anxiety, Depression Smoking Status: Never smoker Past Alcohol Use History: Occasional Past Drug Use History: None Reported - Past Family History Mother Family Medical History: Deep Vein Thrombosis (DVT), Hyperlipidemia Additional Family Medical History / Comment(s): Depression and anxiety. DVT to arm after surgery. General Exam Limitations: no limitations General appearance: alert, in no apparent distress Head exam: Present: atraumatic, normocephalic, normal inspection Respiratory exam: Present: normal lung sounds bilaterally. Absent: respiratory distress, wheezes, rales, rhonchi, stridor Cardiovascular Exam: Present: regular rate, normal rhythm GI/Abdominal exam: Present: soft, tenderness (Lower abdomen), normal bowel sounds. Absent: distended Neurological exam: Present: alert, oriented X3, CN II-XII intact Psychiatric exam: Present: normal affect, normal mood Skin exam: Present: warm, dry, intact, normal color. Absent: rash Course Vital Signs 11/06/24 11/06/24 06:13 06:41 Temperature 98.3 F 98.1 F Pulse Rate 78 88 Respiratory 18 18 Rate Blood Pressure 108/75 120/78 O2 Sat by Pulse 99 99 Oximetry Medical Decision Making - Medical Decision Making This is a 34 year old female who presents to the emergency department for abdominal pain. Was pt. sent in by a medical professional or institution? @ -No Did you speak to anyone other than the patient for history? @ -No Did you review nursing and triage notes? @ -Yes, and I agree, it is accurate with regards to the patient's symptoms. Were old charts reviewed? @ -No Differential Diagnosis? @ -Differential Abdominal Pain Women: Appendicitis, Cholecystitis, diverticulosis, ischemic bowel, pancreatitis, hepatitis, UTI, gastroenteritis, AAA, incarcerated hernia, bowel obstruction, constipation, inflammatory bowel, hepatitis, peptic ulcer disease, splenic infarction, perforated viscus, vulvitis, ovarian torsion, PID, kidney stone, placenta abruption, this is not meant to be an all-inclusive list EKG interpreted by me (3pts min.)? @ -Not obtained X-rays interpreted by me (1pt min.)? @ -Not obtained CT interpreted by me (1pt min.)? @ -Not obtained U/S interpreted by me (1pt. min.)? @ -Not obtained What testing was considered but not performed? (CT, X-rays, U/S, labs)? Why? @ -None What meds were considered but not given? Why? @ -None Did you discuss the management of the patient with other professionals? @ -No Did you reconcile home meds? @ -No Was smoking cessation discussed for >3mins.? @ -No Was critical care preformed (if so, how long)? @ -No Were there social determinants of health that impacted care today? How? (Homelessness, low income, unemployed, alcoholism, drug addiction, transportation, low edu. Level, literacy, decrease access to med. care, [facility], rehab)? @ -No Was there de-escalation of care discussed even if they declined? (Discuss DNR or withdrawal of care, Hospice)? @ -No What co-morbidities impacted this encounter? (DM, HTN, Smoking, COPD, CAD, Cancer, CVA, Hep., AIDS, mental health diagnosis, sleep apnea, morbid obesity)? @ -Chronic pain Was patient admitted / discharged? @ -Discharged. Urinalysis negative for signs of infection. Pain treated in the emergency department. Advised follow-up with her PCP for reevaluation. Patient discharged home in stable condition. Case discussed with ED attending Dr. Velasquez. Return precautions reviewed in depth, the patient is instructed to return to the emergency department with any new, worsening, or concerning symptoms. Patient verbalized understanding. Undiagnosed new problem with uncertain prognosis? @ -None Drug Therapy requiring intensive monitoring for toxicity (Heparin, Nitro, Insulin, Cardizem)? @ -None Were any procedures done? @ -None Diagnosis/symptom? @ -Abdominal muscle strain, pelvic pain Acute, or Chronic, or Acute on Chronic? @ -Acute Uncomplicated (without systemic symptoms) or Complicated (systemic symptoms)? @ -Uncomplicated Side effects of treatment? @ -None Exacerbation, Progression, or Severe Exacerbation] @ -Not applicable Poses a threat to life or bodily function? @ -No - Lab Data Lab Results 11/06/24 Range/Units 06:27 Urine Color Yellow Urine Appearance Clear (Clear) Urine pH 6.0 (5.0-8.0) Ur Specific [place] 1.025 (1.001-1.035) Urine Protein Negative (Negative) Urine Glucose (UA) Negative (Negative) Urine Ketones Negative (Negative) Urine Blood Negative (Negative) Urine Nitrite Negative (Negative) Urine Bilirubin Negative (Negative) Urine Urobilinogen 2.0 (<2.0) mg/dL Ur Leukocyte Esterase Moderate H (Negative) Urine RBC 1 (0-5) /hpf Urine WBC 5 (0-5) /hpf Ur Squamous Epith Cells 2 (0-4) /hpf Hyaline Casts 3 H (0-2) /lpf Urine Mucus Moderate H (None) /hpf Disposition Clinical Impression: Pelvic pain, Abdominal muscle strain Disposition: HOME SELF-CARE Additional Instructions: Return to the emergency department with any new, worsening, or concerning symptoms. Follow up with your primary care provider in 1-2 days. Is patient prescribed a controlled substance at d/c from ED?: No Referrals: Christiano Gutierrez MD [Primary Care Provider] - 1-2 days Time of Disposition: 07:11
[2024-11-06] MEDS: SODIUM CHLORIDE 0.9% 1,000 ML IV ONE (06:58)
[2024-11-06] MEDS: HYDROmorphone 1 MG/ML 1 ML SYRINGE IVP STA ×2 (06:59→07:32)
[2024-11-06] MEDS: ONDANSETRON 4 MG/2 ML VIAL IVP STA (07:03)
[2024-11-06] MEDS: KETOROLAC 15 MG/ML 1 ML VIAL IVP STA (07:07)
[2024-11-06 07:10] LABS: Appearance,Urine Clear (Clear); Bilirubin,Urine Negative (Negative); Blood,Urine Negative (Negative); Color,Urine Yellow; Glucose,Urine (UA) Negative (Negative); Hyaline Casts,Urine 3 /lpf (0-2); Ketones,Urine Negative (Negative); Leukocyte Esterase,Urine Moderate (Negative); Mucus,Urine Moderate /hpf; Nitrite,Urine Negative (Negative); Protein,Urine Negative (Negative); RBC,Urine 1 /hpf (0-5); Specific Gravity,Urine 1.025 (1.001-1.035); Squamous Epithelial Cell,Urine 2 /hpf (0-4); WBC,Urine 5 /hpf (0-5)
[2024-11-06] MEDS: ORPHENADRINE 30 MG/ML 2 ML VIAL IVP STA (07:25)
[2024-11-06 07:43] VITALS: BP 125/75; PULSE 74; RESP 20; TEMP 98.3
== END 2024-11-06 07:42 | disposition home or self-care (01) ==
LOC: EC 06:09
DX: S39.011A Strain of muscle, fascia and tendon of abdomen, initial encounter (principal); G89.29 Other chronic pain; Z88.2 Allergy status to sulfonamides; Z88.1 Allergy status to other antibiotic agents; Z91.048 Other nonmedicinal substance allergy status; Z88.0 Allergy status to penicillin; Z88.8 Allergy status to other drugs, medicaments and biological substances; X58.XXXA Exposure to other specified factors, initial encounter
CPT/HCPCS: 81001; 99284; 96374; 96375 ×2; 96376; 96361; J2405; J1171; J1885

== ENCOUNTER 2024-11-07 02:15 | Emergency (ER) | payer OTHER ==
[2024-11-07 02:22] VITALS: TEMP 98.1
--- NOTE | 2024-11-07 03:14 | ED ---
Abdominal Pain HPI - General Chief Complaint: Abdominal Pain Stated Complaint: abd pain Time Seen by Provider: 11/07/24 02:33 Source: patient Mode of arrival: ambulatory Limitations: no limitations - History of Present Illness Initial Comments: Patient is a 34-year-old female past medical history chronic pain, prior oophorectomy, hysterectomy, appendectomy, cholecystectomy presenting today for acute on chronic abdominal pain. Patient states abdominal pain today similar to prior pain flareups with the exception that this episode to come on faster than normal. She described pain as burning in the left lower quadrant of her abdomen wrapping around towards her back. She was here yesterday for similar pain and states pain was relieved with Dilaudid and Norflex. She typically takes [place] and gabapentin for her pain however was not able to take [place] today because she was going to work. Pain became so bad that she came here from work. She end orses nausea with an episode 1 episode of nonbloody nonbilious emesis. Denies fevers or chills. Denies chest pain or shortness of breath, dysuria or hematuria, urinary frequency, denies vaginal bleeding or discharge, diarrhea melena, hematochezia or constipation. No numbness or weakness. No ligh theadedness or dizziness. - Related Data Home Medications Medication Instructions Recorded Confirmed Budesonide/Formoterol Fumarate 2 puff INHALATION RT-BID 09/02/24 09/24/24 [Symbicort 160-4.5 Mcg Inhaler] Escitalopram Oxalate [Lexapro] 20 mg PO HS 09/02/24 09/24/24 Gabapentin [Neurontin] 200 mg PO TID 09/02/24 09/24/24 HYDROcodone/APAP 10-325MG [[place] 1 tab PO TID PRN 09/02/24 09/24/24 10-325] Omeprazole [PriLOSEC] 40 mg PO HS 09/02/24 09/24/24 ondansetron HCL [Zofran] 8 mg PO Q12HR PRN 09/02/24 09/24/24 Ibuprofen 800 mg PO DAILY PRN 09/24/24 09/24/24 Previous Rx's Medication Instructions Recorded Prochlorperazine [Compazine] 10 mg PO Q6H #15 tab 10/01/24 Nitrofurantoin Monohyd/M-Cryst 100 mg PO Q12HR #10 cap 10/09/24 [Macrobid] Ciprofloxacin HCl [Cipro] 500 mg PO BID 7 Days #14 tab 10/18/24 Allergies Allergy/AdvReac Type Severity Reaction Status Date / Time sulfamethoxazole Allergy Severe Anaphylaxis Verified 11/07/24 02:22 [From Bactrim] trimethoprim [From Bactrim] Allergy Severe Anaphylaxis Verified 11/07/24 02:22 adhesive tape Allergy Rash/Hives Verified 11/07/24 02:22 aloe vera Allergy Rash/Hives Verified 11/07/24 02:22 amoxicillin [From Augmentin] Allergy Itching Verified 11/07/24 02:22 azithromycin Allergy Rash/Hives Verified 11/07/24 02:22 cephalexin Allergy Rash/Hives Verified 11/07/24 02:22 clavulanic acid Allergy Itching Verified 11/07/24 02:22 [From Augmentin] metronidazole [From Flagyl] Allergy Rash/Hives Verified 11/07/24 02:22 Penicillins Allergy Rash/Hives Verified 11/07/24 02:22 alprazolam [From Xanax] AdvReac MAKES Verified 11/07/24 02:22 PARANOID dicyclomine [From Bentyl] AdvReac constipatio Verified 11/07/24 02:22 n Review of Systems ROS Statement: Those systems with pertinent positive or pertinent negative responses have been documented in the HPI. ROS Other: All systems not noted in ROS Statement are negative. Past Medical History Past Medical History: Blood Disorder, GERD/Reflux Additional Past Medical History / Comment(s): Endometriosis, polycystic ovarian syndrome. IRON DEFICIENCY ANEMIA. Stomach Ulcer. Hx ovarian cyst.IBS History of Any Multi-Drug Resistant Organisms: None Reported Past Surgical History: Ablation, Appendectomy, Section, Cholecystecto my, Hernia Repair, Hysterectomy, Tubal Ligation, Uterine Ablation Additional Past Surgical History / Comment(s): Laparoscopy X2, Section X3, right ovary and right tube removed, then total hysterectomy including left ovary and left fallopian tube, cyst removed from chest, ADHESION REMOVAL FROM PAST CSECTION, vaginal/pelvic biopsy. Scar tissure removal abdomen L upper lower Past Anesthesia/Blood Transfusion Reactions: No Reported Reaction Past Psychological History: Anxiety, Depression Smoking Status: Never smoker Past Alcohol Use History: Occasional Past Drug Use History: None Reported - Past Family History Mother Family Medical History: Deep Vein Thrombosis (DVT), Hyperlipidemia Additional Family Medical History / Comment(s): Depression and anxiety. DVT to arm after surgery. General Exam - General Exam Comments Initial Comments: PE: CONSTITUTIONAL: No apparent distress, well appearing SKIN: Warm, dry, no jaundice, hives or petechiae EYES: Pupils are equally round, extraocular movements intact without nystagmus, clear conjunctiva, non-icteric sclera HENT: Normocephalic, atraumatic, moist mucus membranes, oropharynx clear without exudates NECK: , Full range of motion, normal appearance PULMONARY: Clear to auscultation without wheezes, rhonchi, or rales, normal excursion, no accessory muscle use and no stridor CARDIOVASCULAR: Regular rate, rhythm, normal S1 and S2. No appreciated murmurs, rubs or gallops. Extremities are well-perfused. No lower extremity edema GASTROINTESTINAL: Soft, active bowel sounds throughout, initially nontender mild conversing with patient while distracted, however on repeat palpation patient endorses tenderness with patient in left lower quadrant, no CVA tenderness non- distended, no palpable masses, no rebound or guarding. No hepatosplenomegaly GENITOURINARY: MUSCULOSKELETAL: Extremities have no gross deformity, no edema, redness, or s welling. No calf swelling NEUROLOGIC:_a/o x 3, GCS 15, normal mentation and speech. Moves all extremities x 4 without motor or sensory deficit PSYCHIATRIC:_normal mood and affect, thought process is clear and linear Limitations: no limitations Course Vital Signs 11/07/24 11/07/24 02:19 04:38 Temperature 98.1 F Pulse Rate 74 64 Respiratory 18 17 Rate Blood Pressure 118/84 118/76 O2 Sat by Pulse 99 97 Oximetry Medical Decision Making - Medical Decision Making Was pt. sent in by a medical professional or institution (, PA, CHEMICAL RESEARCH ENGINEER, urgent care, hospital, or jail...) When possible be specific @ -No Did you speak to anyone other than the patient for history (EMS, parent, family, police, friend...)? What history was obtained from this source @ -No Did you review nursing and triage notes (agree or disagree)? Why? @ -I reviewed and agree with nursing and triage notes Were old charts reviewed (outside hosp., previous admission, EMS record, old EKG, old radiological studies, urgent care reports/EKG's, jail records)? Report findings @ -Medical records reviewed-reviewed CT abdomen pelvis performed 10/09/2024 that showed no acute process, additionally patient has been here multiple times for similar complaints was here yesterday for similar, does not appear patient had labs drawn during that visit Differential Diagnosis (chest pain, altered mental status, abdominal pain women, abdominal pain men, vaginal bleeding, weakness, fever, dyspnea, syncope, headache, dizziness, GI bleed, back pain, seizure, CVA, palpatations, mental health, musculoskeletal)? Differential Abdominal Pain Women: diverticulosis, ischemic bowel, pancreatitis, hepatitis, UTI, gastroenteritis, bowel obstruction, constipation, inflammatory bowel, hepatitis, peptic ulcer disease, perforated viscus, kidney stone,this is not meant to be an all-inclus emilie list EKG interpreted by me (3pts min.). @ -As above X-rays interpreted by me (1pt min.). @ -None done CT interpreted by me (1pt min.). @ -None done U/S interpreted by me (1pt. min.). @ -None done What testing was considered but not performed or refused? (CT, X-rays, U/S, labs)? Why? @ Imaging of the abdomen was considered however pain is described as chronic pattern, labs reassuring, no longer has ovaries, uterus, appendix or gallbladder What meds were considered but not given or refused? Why? @Additional Dilaudid was considered however patient has recurrent visits for similar complaints, requesting Dilaudid multiple times, has run out of her home [place] and states she is not due for refill for few days, I am concerned for narcotic abuse, therefor additional narcotics were not administered Did you discuss the management of the patient with other professionals (professionals i.e. , PA, CHEMICAL RESEARCH ENGINEER, lab, RT, psych nurse, criminal justice social worker, music intern, teacher, special forces warrant officer, bilingual case manager)? Give summary @ -No Was smoking cessation discussed for >3mins.? @ -No Was critical care preformed (if so, how long)? @ -No Were there social determinants of health that impacted care today? How? (Homelessness, low income, unemployed, alcoholism, drug addiction, transportation, low edu. Level, literacy, decrease access to med. care, [place] [facility], rehab)? @Opioid dependence, endometriosis, PCOS Was there de-escalation of care discussed even if they declined (Discuss DNR or withdrawal of care, Hospice)? @ -No What co-morbidities impacted this encounter? (DM, HTN, Smoking, COPD, CAD, Cancer, CVA, ARF, Chemo, Hep., AIDS, mental health diagnosis, sleep apnea, morbid obesity)? @ -Opioid dependance Was patient admitted / discharged? Hospital course, mention meds given and route, prescriptions, significant lab abnormalities, going to OR and other pertinent info. Discharged- Patient is a 34-year-old female presenting today for acute on chronic abdominal pain. On my assessment patient is well-appearing in no acute distress. Vital signs reassuring on arrival. Of note patient does not have tenderness to palpation of the abdomen while I am conversing with her, while she was distracted however when palpated a second time, endorsed tenderness palpation of the left lower quadrant. Abdominal exam is otherwise benign. Will obtain basic labs, urinalysis. Patient will be given pain medications and reas sess. Labs and imaging reviewed. Grossly within normal limits. Abnormal values not concerning for acute pathology related to presenting complaint. On reassessment patient is resting comfortably no acute distress. Her pain has decreased to 5 out of 10. She requests more Dilaudid. I discussed with the patient I see she has been here frequently for similar complaints, she sees a pain specialist and has [place] at home. Patient then told me she ran out of her [place] is not due for refill for few days when earlier had told me has not taken her norco today because she was going to work. I am concerned the patient may be abusing narcotics, I discussed with her that I do not feel comfortable giving additional Dilaudid. I did offer her additional GI medications, however patient declined. Discussed with her reassuring workup today and that she needs to follow up with her [employer] regarding retirement pain management. Pt verbalized understanding and was discharged in stable condition. Of note, MAPs was reviewed, patient was prescribed 90 tablets, a 30 day quantity of 10- 325 hydrocodone-acetaminophen, on 10/16/24. If patient has run out by now, as she states she has, I remain concerned for narcotic abuse. Undiagnosed new problem with uncertain prognosis? @ -No Drug Therapy requiring intensive monitoring for toxicity (Heparin, Nitro, Insulin, Cardizem)? @ -No Were any procedures done? @ -No Diagnosis/symptom? @Abdominal pain, chronic, opioid abuse Acute, or Chronic, or Acute on Chronic? @Acute on chronic Uncomplicated (without systemic symptoms) or Complicated (systemic symptoms)? @Uncomplicated Side effects of treatment? @ -No Exacerbation, Progression, or Severe Exacerbation? @ -No - Lab Data Result diagrams: 11/07/24 02:35 11/07/24 02:35 Lab Results 11/07/24 11/07/24 11/07/24 Range/Units 02:35 02:35 03:00 WBC 4.90 (4.50-10.00) 10*3/uL RBC 3.35 L (4.10-5.20) 10*6/uL Hgb 10.5 L (12.0-15.0) g/dL Hct 31.9 L (37.2-46.3) % MCV 95.2 (80.0-97.0) fL MCH 31.3 (27.0-32.0) pg MCHC 32.9 (32.0-37.0) g/dL Plt Count 214 (140-440) 10*3/uL MPV 10.1 (9.5-12.2) fL Immature Gran % (Auto) 0.2 % Neutrophils % 51.0 % Lymphocytes % 39.8 % Monocytes % 8.2 % Eosinophils % 0.6 % Basophils % 0.2 % Immature Gran # 0.01 (0.00-0.04) 10*3/uL Neutrophils # 2.50 (1.80-7.70) 10*3/uL Lymphocytes # 1.95 (0.90-5.00) 10*3/uL Monocytes # 0.40 (0.20-1.00) 10*3/uL Eosinophils # 0.03 L (0.04-0.35) 10*3/uL Basophils # 0.01 (0.00-0.10) 10*3/uL Sodium 138 (137-145) mmol/L Potassium 4.2 (3.5-5.1) mmol/L Chloride 99 (98-107) mmol/L Carbon Dioxide 32 H (22-30) mmol/L Anion Gap 7 mmol/L BUN 14 (7-17) mg/dL Creatinine 0.66 (0.52-1.04) mg/dL Est GFR (CKD-EPI)AfAm >90 (>60 ml/min/1.73 sqM) Est GFR (CKD-EPI)NonAf >90 (>60 ml/min/1.73 sqM) Glucose 93 (74-99) mg/dL Calcium 10.2 (8.4-10.2) mg/dL Total Bilirubin 0.6 (0.2-1.3) mg/dL AST 23 (14-36) U/L ALT 17 (4-34) U/L Alkaline Phosphatase 89 (38-126) U/L Total Protein 6.7 (6.3-8.2) g/dL Albumin 4.0 (3.5-5.0) g/dL Lipase 54 (23-300) U/L Urine Color Colorless Urine Appearance Clear (Clear) Urine pH 7.5 (5.0-8.0) Ur Specific [place] 1.008 (1.001-1.035) Urine Protein Negative (Negative) Urine Glucose (UA) Negative (Negative) Urine Ketones Negative (Negative) Urine Blood Negative (Negative) Urine Nitrite Negative (Negative) Urine Bilirubin Negative (Negative) Urine Urobilinogen <2.0 (<2.0) mg/dL Ur Leukocyte Esterase Negative (Negative) Disposition Clinical Impression: Chronic abdominal pain, Narcotic abuse Disposition: HOME SELF-CARE Condition: Good Instructions (If sedation given, give patient instructions): Abdominal Pain (ED) Additional Instructions: Every disease is a spectrum and a small chance still exists that a serious condition could develop, for this reason, please monitor yourself closely for new, changing or worsening symptoms, symptoms that persist beyond 48 hours, black or bloody stools, change in quality of your pain from your usual symptoms, fever, inability to tolerate/keep down fluids or your medications, inability to follow up with outpatient providers as instructed and should you experience these symptoms or should you have any further concerns for your wellbeing please return to the ED or call 911 immediately. Please continue to follow up with your [employer] for continued pain medications. Please attempt nonnarcotic pain medications, such as naproxen and Tylenol, Pepcid, omeprazole and Maalox. You can use warm compresses, take warm baths, and use a clear liquid diet until symptoms improved Your pain can be treated with ibuprofen and acetaminophen. You can take up to 400-600 mg of ibuprofen (Advil, Motrin) 3 times daily (every 8 hours) but can also use lower doses if this relieves your pain. Some people prefer naproxen (Aleve, Naprosyn) which can be taken in doses of 500 mg up to twice a day. Do not take both of these medicines together, and do not combine either with ket orolac (Toradol), meloxicam (Mobic), or indomethacin (Tivorbex). Some people can develop stomach discomfort with higher doses of either ibuprofen or naproxen, if this develops decrease your dose or stop taking it. If you need to take this dose daily for more than a week, please schedule an appointment for re- evaluation with your PCP. Please take these medications with food. You can take up to 1000 mg of acetaminophen (Tylenol) every 6 hours. Be careful as this is included in some medicines like Nyquil, [place], Percocet, Vicodin, STANBACK, Goody's Powders, and Excedrin. You can also use lidocaine patches for topical pain. You can purchase 4% patches over the counter at most drug stores. These can be helpful for pain from your muscles or bones. PLEASE call your primary care physician as soon as possible to arrange / discuss plan for followup appointment. Appointment in the next 1-3 days is strongly encouraged if possible. PLEASE let us know here before you leave if there is anything further we can do to be of any assistance. Take care and feel Better! Is patient prescribed a controlled substance at d/c from ED?: No Referrals: Christiano Gutierrez MD [Primary Care Provider] - 1-2 days
[2024-11-07] MEDS: HYDROmorphone 1 MG/ML 1 ML SYRINGE IVP STA (03:23)
[2024-11-07] MEDS: ONDANSETRON 4 MG/2 ML VIAL IVP STA (03:24)
[2024-11-07] MEDS: FAMOTIDINE 20 MG/2 ML VIAL IV STA (03:25)
[2024-11-07] MEDS: KETOROLAC 15 MG/ML 1 ML VIAL IVP STA (03:27)
[2024-11-07 03:28] LABS: Basophils # (A) 0.01 10*3/uL (0.00-0.10); Basophils % (A) 0.2 %; Eosinophils # (A) 0.03 10*3/uL (0.04-0.35); Eosinophils % (A) 0.6 %; HCT 31.9 % (37.2-46.3); HGB 10.5 g/dL (12.0-15.0); Lymphocytes # (A) 1.95 10*3/uL (0.90-5.00); Lymphocytes % (A) 39.8 %; MCH 31.3 pg (27.0-32.0); MCHC 32.9 g/dL (32.0-37.0); MCV 95.2 fL (80.0-97.0); Mean Platelet Volume 10.1 fL (9.5-12.2); Monocytes % (A) 8.2 %; Platelet Count 214 10*3/uL (140-440); RBC 3.35 10*6/uL (4.10-5.20); RDW 13.5 % (11.5-14.5)
[2024-11-07] MEDS: ORPHENADRINE 30 MG/ML 2 ML VIAL IVP STA (03:29)
[2024-11-07 03:30] LABS: Appearance,Urine Clear (Clear); Bilirubin,Urine Negative (Negative); Blood,Urine Negative (Negative); Color,Urine Colorless; Glucose,Urine (UA) Negative (Negative); Ketones,Urine Negative (Negative); Leukocyte Esterase,Urine Negative (Negative); Nitrite,Urine Negative (Negative); PH, Urine 7.5 (5.0-8.0); Protein,Urine Negative (Negative); Specific Gravity,Urine 1.008 (1.001-1.035); Urobilinogen,Urine <2.0 mg/dL (<2.0)
[2024-11-07 03:43] LABS: ALT 17 U/L (4-34); AST 23 U/L (14-36); African American GFR (CKD) >90 (>60 ml/min/1.73 sqM); Alkaline Phosphatase 89 U/L (38-126); Anion Gap 7 mmol/L; Blood Urea Nitrogen 14 mg/dL (7-17); Calcium 10.2 mg/dL (8.4-10.2); Carbon Dioxide 32 mmol/L (22-30); Chloride 99 mmol/L (98-107); Glucose 93 mg/dL (74-99); Lipase 54 U/L (23-300); Non-African American GFR(CKD) >90 (>60 ml/min/1.73 sqM); Potassium 4.2 mmol/L (3.5-5.1); Sodium 138 mmol/L (137-145); Total Bilirubin 0.6 mg/dL (0.2-1.3); Total Protein 6.7 g/dL (6.3-8.2)
[2024-11-07 04:40] VITALS: BP 118/76; PULSE 64; RESP 17
== END 2024-11-07 04:39 | disposition home or self-care (01) ==
LOC: EC 02:15
DX: G89.29 Other chronic pain (principal); R10.9 Unspecified abdominal pain; F11.10 Opioid abuse, uncomplicated; Z88.0 Allergy status to penicillin; Z88.1 Allergy status to other antibiotic agents; Z88.2 Allergy status to sulfonamides; Z88.8 Allergy status to other drugs, medicaments and biological substances
CPT/HCPCS: 36415; 80053; 83690; 85025; 81003; 99284; 96374; 96375; J2360; J2405; J1171; J1885; J1308

== ENCOUNTER 2024-11-08 19:07 | Emergency (ER) | payer OTHER ==
[2024-11-08 19:30] VITALS: RESP 18
--- NOTE | 2024-11-08 20:00 | ED ---
General Adult HPI - General Chief complaint: Abdominal Pain Stated complaint: Abd pain Time Seen by Provider: 11/08/24 19:32 Source: patient, RN notes reviewed Mode of arrival: ambulatory Limitations: no limitations - History of Present Illness Initial comments: 34-year-old female well-known to our emergency department presents to the emergency department for evaluation of abdominal pain/pelvic pain. Patient states that this issue has been going on for 3 days. She denies any changes in her urination or bowel habits. Denies any known fever, chills. She denies abdominal surgeries including a total hysterectomy, appendectomy, multiple endometriosis surgeries. - Related Data Home Medications Medication Instructions Recorded Confirmed Budesonide/Formoterol Fumarate 2 puff INHALATION RT-BID 09/02/24 09/24/24 [Symbicort 160-4.5 Mcg Inhaler] Escitalopram Oxalate [Lexapro] 20 mg PO HS 09/02/24 09/24/24 Gabapentin [Neurontin] 200 mg PO TID 09/02/24 09/24/24 HYDROcodone/APAP 10-325MG [[place] 1 tab PO TID PRN 09/02/24 09/24/24 10-325] Omeprazole [PriLOSEC] 40 mg PO HS 09/02/24 09/24/24 ondansetron HCL [Zofran] 8 mg PO Q12HR PRN 09/02/24 09/24/24 Ibuprofen 800 mg PO DAILY PRN 09/24/24 09/24/24 Previous Rx's Medication Instructions Recorded Prochlorperazine [Compazine] 10 mg PO Q6H #15 tab 10/01/24 Nitrofurantoin Monohyd/M-Cryst 100 mg PO Q12HR #10 cap 10/09/24 [Macrobid] Ciprofloxacin HCl [Cipro] 500 mg PO BID 7 Days #14 tab 10/18/24 Allergies Allergy/AdvReac Type Severity Reaction Status Date / Time sulfamethoxazole Allergy Severe Anaphylaxis Verified 11/08/24 19:30 [From Bactrim] trimethoprim [From Bactrim] Allergy Severe Anaphylaxis Verified 11/08/24 19:30 adhesive tape Allergy Rash/Hives Verified 11/08/24 19:30 aloe vera Allergy Rash/Hives Verified 11/08/24 19:30 amoxicillin [From Augmentin] Allergy Itching Verified 11/08/24 19:30 azithromycin Allergy Rash/Hives Verified 11/08/24 19:30 cephalexin Allergy Rash/Hives Verified 11/08/24 19:30 clavulanic acid Allergy Itching Verified 11/08/24 19:30 [From Augmentin] metronidazole [From Flagyl] Allergy Rash/Hives Verified 11/08/24 19:30 Penicillins Allergy Rash/Hives Verified 11/08/24 19:30 alprazolam [From Xanax] AdvReac MAKES Verified 11/08/24 19:30 PARANOID dicyclomine [From Bentyl] AdvReac constipatio Verified 11/08/24 19:30 n Review of Systems ROS Statement: Those systems with pertinent positive or pertinent negative responses have been documented in the HPI. ROS Other: All systems not noted in ROS Statement are negative. Past Medical History Past Medical History: Blood Disorder, GERD/Reflux Additional Past Medical History / Comment(s): Endometriosis, polycystic ovarian syndrome. IRON DEFICIENCY ANEMIA. Stomach Ulcer. Hx ovarian cyst.IBS History of Any Multi-Drug Resistant Organisms: None Reported Past Surgical History: Ablation, Appendectomy, Section, Cholecystectomy, Hernia Repair, Hysterectomy, Tubal Ligation, Uterine Ablation Additional Past Surgical History / Comment(s): Laparoscopy X2, Section X3, right ovary and right tube removed, then total hysterectomy including left ovary and left fallopian tube, cyst removed from chest, ADHESION REMOVAL FROM PAST CSECTION, vaginal/pelvic biopsy. Scar tissure removal abdomen L upper lower Past Anesthesia/Blood Transfusion Reactions: No Reported Reaction Past Psychological History: Anxiety, Depression Smoking Status: Never smoker Past Alcohol Use History: Occasional Past Drug Use History: None Reported - Past Family History Mother Family Medical History: Deep Vein Thrombosis (DVT), Hyperlipidemia Additional Family Medical History / Comment(s): Depression and anxiety. DVT to arm after surgery. General Exam Limitations: no limitations General appearance: alert, in no apparent distress Head exam: Present: atraumatic, normocephalic, normal inspection Eye exam: Present: normal appearance, PERRL, EOMI. Absent: scleral icterus, conjunctival injection, periorbital swelling ENT exam: Present: normal exam, mucous membranes moist Neck exam: Present: normal inspection. Absent: tenderness, meningismus, lymphadenopathy Respiratory exam: Present: normal lung sounds bilaterally. Absent: respiratory distress, wheezes, rales, rhonchi, stridor Cardiovascular Exam: Present: regular rate, normal rhythm, normal heart sounds. Absent: systolic murmur, diastolic murmur, rubs, gallop, clicks GI/Abdominal exam: Present: soft, tenderness, normal bowel sounds. Absent: distended, guarding, rebound, rigid Extremities exam: Present: normal inspection, full ROM, normal capillary refill. Absent: tenderness, pedal edema, joint swelling, calf tenderness Back exam: Present: normal inspection Neurological exam: Present: alert, oriented X3 Psychiatric exam: Present: normal affect, normal mood Skin exam: Present: warm, dry, intact, normal color. Absent: rash Course Vital Signs 11/08/24 11/08/24 19:26 22:51 Temperature 98.1 F 98.0 F Pulse Rate 101 H 99 Respiratory 18 18 Rate Blood Pressure 113/80 120/76 O2 Sat by Pulse 100 100 Oximetry Medical Decision Making - Medical Decision Making Was pt. sent in by a medical professional or institution (, PA, WEB MARKETING SPECIALIST, urgent care, hospital, or snf...) When possible be specific @ -No Did you speak to anyone other than the patient for history (EMS, parent, family, police, friend...)? What history was obtained from this source @ -No Did you review nursing and triage notes (agree or disagree)? Why? @ -I reviewed and agree with nursing and triage notes Were old charts reviewed (outside hosp., previous admission, EMS record, old EKG, old radiological studies, urgent care reports/EKG's, snf records)? Report findings @ -No old charts were reviewed Differential Diagnosis (chest pain, altered mental status, abdominal pain women, abdominal pain men, vaginal bleeding, weakness, fever, dyspnea, syncope, headache, dizziness, GI bleed, back pain, seizure, CVA, palpatations, mental health, musculoskeletal)? @ -Differential Abdominal Pain Women: Appendicitis, Cholecystitis, diverticulosis, ischemic bowel, pancreatitis, hepatitis, UTI, gastroenteritis, AAA, incarcerated hernia, bowel obstruction, constipation, inflammatory bowel, hepatitis, peptic ulcer disease, splenic infarction, perforated viscus, vulvitis, ovarian torsion, PID, kidney stone, placenta abruption, this is not meant to be an all-inclusive list EKG interpreted by me (3pts min.). @ -None X-rays interpreted by me (1pt min.). @ -None done CT interpreted by me (1pt min.). @ -None done U/S interpreted by me (1pt. min.). @ -None done What testing was considered but not performed or refused? (CT, X-rays, U/S, labs)? Why? @ -None What meds were considered but not given or refused? Why? @ -None Did you discuss the management of the patient with other professionals (professionals i.e. DrLuciano, PA, WEB MARKETING SPECIALIST, lab, RT, psych nurse, social worker assistant, masonry installer, teacher, correctional security officer, protective services case worker)? Give summary @ -No Was smoking cessation discussed for >3mins.? @ -No Was critical care preformed (if so, how long)? @ -No Were there social determinants of health that impacted care today? How? (Homelessness, low income, unemployed, alcoholism, drug addiction, transportation, low edu. Level, literacy, decrease access to med. care, longterm, rehab)? @ -No Was there de-escalation of care discussed even if they declined (Discuss DNR or withdrawal of care, Hospice)? DNR status @ -No What co-morbidities impacted this encounter? (DM, HTN, Smoking, COPD, CAD, Cancer, CVA, ARF, Chemo, Hep., AIDS, mental health diagnosis, sleep apnea, morbid obesity)? @ -None Was patient admitted / discharged? Hospital course, mention meds given and route, prescriptions, significant lab abnormalities, going to OR and other pertinent info. @ -[Discharge. Patient presented emergency department for evaluation of f abdominal pain/pelvic pain. UA obtained revealing no evidence of infectious process. Patient was provided medication for pain and nausea control in the emergency department. She will be discharged home. She is understanding agreeable with plan. Patient stable at time of discharge. Case discussed with Dr. Araujo Undiagnosed new problem with uncertain prognosis? @ -No Drug Therapy requiring intensive monitoring for toxicity (Heparin, Nitro, Insulin, Cardizem)? @ -No Were any procedures done? @ -No Diagnosis/symptom? @ -Pelvic pain Acute, or Chronic, or Acute on Chronic? @ -Chronic Uncomplicated (without systemic symptoms) or Complicated (systemic symptoms)? @ -Uncomplicated Side effects of treatment? @ -No Exacerbation, Progression, or Severe Exacerbation? @ -No Poses a threat to life or bodily function? How? (Chest pain, [place], [place], pneumonia, PE, COPD, DKA, ARF, appy, cholecystitis, CVA, Diverticulitis, Homicidal, Suicidal, threat to staff... and all critical care pts) @ -No - Lab Data Lab Results 11/08/24 Range/Units 20:28 Urine Color Colorless Urine Appearance Clear (Clear) Urine pH 8.0 (5.0-8.0) Ur Specific [place] 1.014 (1.001-1.035) Urine Protein Negative (Negative) Urine Glucose (UA) Negative (Negative) Urine Ketones Negative (Negative) Urine Blood Negative (Negative) Urine Nitrite Negative (Negative) Urine Bilirubin Negative (Negative) Urine Urobilinogen <2.0 (<2.0) mg/dL Ur Leukocyte Esterase Negative (Negative) Disposition Clinical Impression: Pelvic pain Disposition: HOME SELF-CARE Condition: Stable Additional Instructions: Please follow up with your doctor. Return to the emergency department for new or worsening symptoms. Is patient prescribed a controlled substance at d/c from ED?: No Referrals: Christiano Gutierrez MD [Primary Care Provider] - 1-2 days
[2024-11-08] MEDS: HYDROmorphone 1 MG/ML 1 ML SYRINGE IVP STA (20:30)
[2024-11-08] MEDS: ONDANSETRON 4 MG/2 ML VIAL IVP STA (20:31)
[2024-11-08] MEDS: ORPHENADRINE 30 MG/ML 2 ML VIAL IVP STA (20:32)
[2024-11-08] MEDS: KETOROLAC 15 MG/ML 1 ML VIAL IVP STA (20:35)
[2024-11-08 21:32] LABS: Appearance,Urine Clear (Clear); Bilirubin,Urine Negative (Negative); Blood,Urine Negative (Negative); Color,Urine Colorless; Glucose,Urine (UA) Negative (Negative); Ketones,Urine Negative (Negative); Leukocyte Esterase,Urine Negative (Negative); Nitrite,Urine Negative (Negative); Protein,Urine Negative (Negative); Specific Gravity,Urine 1.014 (1.001-1.035); Urobilinogen,Urine <2.0 mg/dL (<2.0)
[2024-11-08] MEDS: HYDROmorphone 0.5 MG/0.5 ML SYRINGE IVP STA (22:42)
[2024-11-08 22:53] VITALS: BP 120/76; PULSE 99; TEMP 98
== END 2024-11-08 22:53 | disposition home or self-care (01) ==
LOC: EC 19:07
DX: R10.2 Pelvic and perineal pain (principal); Z88.0 Allergy status to penicillin; Z88.1 Allergy status to other antibiotic agents; Z88.2 Allergy status to sulfonamides; Z88.8 Allergy status to other drugs, medicaments and biological substances
CPT/HCPCS: 81003; 99284; 96374; 96375 ×3; 96376; J2360; J2405; J1171 ×2; J1885

== ENCOUNTER 2024-11-11 08:49 | Emergency (ER) | payer OTHER ==
[2024-11-11 08:55] VITALS: RESP 20
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
[2024-11-11] MEDS: KETOROLAC 15 MG/ML 1 ML VIAL IM STA (09:35)
[2024-11-11 09:43] VITALS: BP 104/71; PULSE 72; TEMP 98
== END 2024-11-11 09:46 | disposition home or self-care (01) ==
LOC: EC 08:49
DX: S30.1XXA Contusion of abdominal wall, initial encounter (principal); G89.29 Other chronic pain; Z88.2 Allergy status to sulfonamides; Z88.1 Allergy status to other antibiotic agents; Z91.048 Other nonmedicinal substance allergy status; Z88.0 Allergy status to penicillin; Z88.8 Allergy status to other drugs, medicaments and biological substances; Y04.0XXA Assault by unarmed brawl or fight, initial encounter
CPT/HCPCS: 99283; 96372; J1885

== ENCOUNTER 2024-11-16 23:12 | Emergency (ER) | payer OTHER ==
[2024-11-16 23:52] LABS: Appearance,Urine Clear (Clear); Bilirubin,Urine Negative (Negative); Blood,Urine Negative (Negative); Color,Urine Colorless; Glucose,Urine (UA) Negative (Negative); Ketones,Urine Negative (Negative); Leukocyte Esterase,Urine Negative (Negative); Nitrite,Urine Negative (Negative); PH, Urine 7.5 (5.0-8.0); Protein,Urine Negative (Negative); Specific Gravity,Urine 1.004 (1.001-1.035); Urobilinogen,Urine <2.0 mg/dL (<2.0)
--- NOTE | 2024-11-17 | ED ---
General Adult HPI - General Chief complaint: Urogenital Stated complaint: abd pain/back pain Time Seen by Provider: 11/16/24 23:22 Source: patient Mode of arrival: ambulatory Limitations: no limitations - History of Present Illness Initial comments: This patient is a 34-year-old woman with history of chronic back and pelvic pain who presents with complaint that her pain has flared up. The patient states that she usually takes Vicodin, but she has run out of that the . She did receive prescription for Percocet from her physician but states that she does not like this medication as much and had not taken it. She states that she does have an appointment coming up in the first week of November with a resin painter but that the pain has flared today and she was hoping to have some relief here. The patient has not noted fever or chills. Had some nausea and vomited once. No change in urination or bowel movements. -: days(s) Location: back Radiation: non-radiation Quality: aching Consistency: constant Improves with: medication Worsens with: none Associated Symptoms: denies other symptoms, nausea/vomiting Treatments Prior to Arrival: none - Related Data Home Medications Medication Instructions Recorded Confirmed Budesonide/Formoterol Fumarate 2 puff INHALATION RT-BID 09/02/24 09/24/24 [Symbicort 160-4.5 Mcg Inhaler] Escitalopram Oxalate [Lexapro] 20 mg PO HS 09/02/24 09/24/24 Gabapentin [Neurontin] 200 mg PO TID 09/02/24 09/24/24 HYDROcodone/APAP 10-325MG [[place] 1 tab PO TID PRN 09/02/24 09/24/24 10-325] Omeprazole [PriLOSEC] 40 mg PO HS 09/02/24 09/24/24 ondansetron HCL [Zofran] 8 mg PO Q12HR PRN 09/02/24 09/24/24 Ibuprofen 800 mg PO DAILY PRN 09/24/24 09/24/24 Previous Rx's Medication Instructions Recorded Prochlorperazine [Compazine] 10 mg PO Q6H #15 tab 10/01/24 Nitrofurantoin Monohyd/M-Cryst 100 mg PO Q12HR #10 cap 10/09/24 [Macrobid] Ciprofloxacin HCl [Cipro] 500 mg PO BID 7 Days #14 tab 10/18/24 Allergies Allergy/AdvReac Type Severity Reaction Status Date / Time sulfamethoxazole Allergy Severe Anaphylaxis Verified 11/16/24 23:17 [From Bactrim] trimethoprim [From Bactrim] Allergy Severe Anaphylaxis Verified 11/16/24 23:17 adhesive tape Allergy Rash/Hives Verified 11/16/24 23:17 aloe vera Allergy Rash/Hives Verified 11/16/24 23:17 amoxicillin [From Augmentin] Allergy Itching Verified 11/16/24 23:17 azithromycin Allergy Rash/Hives Verified 11/16/24 23:17 cephalexin Allergy Rash/Hives Verified 11/16/24 23:17 clavulanic acid Allergy Itching Verified 11/16/24 23:17 [From Augmentin] metronidazole [From Flagyl] Allergy Rash/Hives Verified 11/16/24 23:17 Penicillins Allergy Rash/Hives Verified 11/16/24 23:17 alprazolam [From Xanax] AdvReac MAKES Verified 11/16/24 23:17 PARANOID dicyclomine [From Bentyl] AdvReac constipatio Verified 11/16/24 23:17 n Review of Systems ROS Statement: Those systems with pertinent positive or pertinent negative responses have been documented in the HPI. ROS Other: All systems not noted in ROS Statement are negative. Past Medical History Past Medical History: Blood Disorder, GERD/Reflux Additional Past Medical History / Comment(s): Endometriosis, polycystic ovarian syndrome. IRON DEFICIENCY ANEMIA. Stomach Ulcer. Hx ovarian cyst.IBS History of Any Multi-Drug Resistant Organisms: None Reported Past Surgical History: Ablation, Appendectomy, Section, Cho lecystectomy, Hernia Repair, Hysterectomy, Tubal Ligation, Uterine Ablation Additional Past Surgical History / Comment(s): Laparoscopy X2, Section X3, right ovary and right tube removed, then total hysterectomy including left ovary and left fallopian tube, cyst removed from chest, ADHESION REMOVAL FROM PAST CSECTION, vaginal/pelvic biopsy. Scar tissure removal abdomen L upper lower Past Anesthesia/Blood Transfusion Reactions: No Reported Reaction Past Psychological History: Anxiety, Depression Smoking Status: Never smoker Past Alcohol Use History: Occasional Past Drug Use History: None Reported - Past Family History Mother Family Medical History: Deep Vein Thrombosis (DVT), Hyperlipidemia Additional Family Medical History / Comment(s): Depression and anxiety. DVT to arm after surgery. General Exam Limitations: no limitations Course Vital Signs 11/16/24 23:18 Temperature 98.2 F Pulse Rate 78 Respiratory 18 Rate Blood Pressure 138/91 O2 Sat by Pulse 98 Oximetry Medical Decision Making - Lab Data Lab Results 11/16/24 11/16/24 Range/Units 23:33 23:33 Urine Color Colorless Urine Appearance Clear (Clear) Urine pH 7.5 (5.0-8.0) Ur Specific [place] 1.004 (1.001-1.035) Urine Protein Negative (Negative) Urine Glucose (UA) Negative (Negative) Urine Ketones Negative (Negative) Urine Blood Negative (Negative) Urine Nitrite Negative (Negative) Urine Bilirubin Negative (Negative) Urine Urobilinogen <2.0 (<2.0) mg/dL Ur Leukocyte Esterase Negative (Negative) Urine HCG, Qual Not Detected (Not Detectd) Disposition Clinical Impression: Chronic back pain Disposition: HOME SELF-CARE Condition: Good Instructions (If sedation given, give patient instructions): Chronic Back Pain (DC) Is patient prescribed a controlled substance at d/c from ED?: No Referrals: Christiano Gutierrez MD [Primary Care Provider] - 1-2 days
[2024-11-17] MEDS: KETOROLAC 15 MG/ML 1 ML VIAL IM STA (00:05)
[2024-11-17] MEDS: MORPHINE SULFATE 4 MG/ML SYRINGE IM STA (00:05)
[2024-11-17] MEDS: ONDANSETRON ODT 4 MG TAB PO STA (00:34)
[2024-11-17] MEDS: HYDROmorphone 2 MG/ML 1 ML SYRINGE IM STA (01:36)
[2024-11-17 02:40] VITALS: BP 117/81; PULSE 73; RESP 17; TEMP 98.4
== END 2024-11-17 02:42 | disposition home or self-care (01) ==
LOC: EC 23:12
DX: G89.29 Other chronic pain (principal); M54.9 Dorsalgia, unspecified; Z88.2 Allergy status to sulfonamides; Z88.0 Allergy status to penicillin; Z88.1 Allergy status to other antibiotic agents; Z88.8 Allergy status to other drugs, medicaments and biological substances
CPT/HCPCS: 99283 ×2; 96372 ×2; 81003; 81025; J2270; J1171; J1885

== ENCOUNTER 2024-11-19 22:29 | Emergency (ER) | payer OTHER ==
[2024-11-19 22:33] VITALS: RESP 18; TEMP 98.2
[2024-11-19 23:56] LABS: Appearance,Urine Clear (Clear); Bilirubin,Urine Negative (Negative); Blood,Urine Negative (Negative); Color,Urine Colorless; Glucose,Urine (UA) Negative (Negative); Ketones,Urine Negative (Negative); Leukocyte Esterase,Urine Negative (Negative); Nitrite,Urine Negative (Negative); PH, Urine 7.5 (5.0-8.0); Protein,Urine Negative (Negative); Specific Gravity,Urine 1.013 (1.001-1.035)
[2024-11-20] MEDS: HYDROmorphone 1 MG/ML 1 ML SYRINGE IVP STA (00:04)
[2024-11-20] MEDS: HYDROmorphone 1 MG/ML 1 ML SYRINGE IM STA (00:04)
[2024-11-20] MEDS: ONDANSETRON 4 MG/2 ML VIAL IVP STA (00:04)
[2024-11-20] MEDS: ONDANSETRON ODT 4 MG TAB PO STA (00:05)
--- NOTE | 2024-11-20 00:06 | ED ---
Back Pain HPI - General Chief Complaint: Back Pain/Injury Stated Complaint: Pelvis pain Time Seen by Provider: 11/19/24 22:55 Source: patient Limitations: no limitations - History of Present Illness Initial Comments: 34-year-old female presenting with chief complaint of pelvic and lower back pain. Patient has history of chronic pelvic and lower back pain and follows with pain management. She reports that she recently was taken off of her chronic opiates for her chronic pain in order for pain management to try some different approaches to her pain. She thinks that that is why she is having an increase in pain. She is having no new characteristics. She is having some urinary frequency but no dysuria or hematuria. No diarrhea. No vaginal bleeding as the patient does not have a uterus. No fever or vomiting. - Related Data Home Medications Medication Instructions Recorded Confirmed Budesonide/Formoterol Fumarate 2 puff INHALATION RT-BID 09/02/24 09/24/24 [Symbicort 160-4.5 Mcg Inhaler] Escitalopram Oxalate [Lexapro] 20 mg PO HS 09/02/24 09/24/24 Gabapentin [Neurontin] 200 mg PO TID 09/02/24 09/24/24 HYDROcodone/APAP 10-325MG [[place] 1 tab PO TID PRN 09/02/24 09/24/24 10-325] Omeprazole [PriLOSEC] 40 mg PO HS 09/02/24 09/24/24 ondansetron HCL [Zofran] 8 mg PO Q12HR PRN 09/02/24 09/24/24 Ibuprofen 800 mg PO DAILY PRN 09/24/24 09/24/24 Previous Rx's Medication Instructions Recorded Prochlorperazine [Compazine] 10 mg PO Q6H #15 tab 10/01/24 Nitrofurantoin Monohyd/M-Cryst 100 mg PO Q12HR #10 cap 10/09/24 [Macrobid] Ciprofloxacin HCl [Cipro] 500 mg PO BID 7 Days #14 tab 10/18/24 Allergies Allergy/AdvReac Type Severity Reaction Status Date / Time sulfamethoxazole Allergy Severe Anaphylaxis Verified 11/19/24 22:31 [From Bactrim] trimethoprim [From Bactrim] Allergy Severe Anaphylaxis Verified 11/19/24 22:31 adhesive tape Allergy Rash/Hives Verified 11/19/24 22:31 aloe vera Allergy Rash/Hives Verified 11/19/24 22:31 amoxicillin [From Augmentin] Allergy Itching Verified 11/19/24 22:31 azithromycin Allergy Rash/Hives Verified 11/19/24 22:31 cephalexin Allergy Rash/Hives Verified 11/19/24 22:31 clavulanic acid Allergy Itching Verified 11/19/24 22:31 [From Augmentin] metronidazole [From Flagyl] Allergy Rash/Hives Verified 11/19/24 22:31 Penicillins Allergy Rash/Hives Verified 11/19/24 22:31 alprazolam [From Xanax] AdvReac MAKES Verified 11/19/24 22:31 PARANOID dicyclomine [From Bentyl] AdvReac constipatio Verified 11/19/24 22:31 n Review of Systems ROS Statement: Those systems with pertinent positive or pertinent negative responses have been documented in the HPI. ROS Other: All systems not noted in ROS Statement are negative. Past Medical History Past Medical History: Blood Disorder, GERD/Reflux Additional Past Medical History / Comment(s): Endometriosis, polycystic ovarian syndrome. IRON DEFICIENCY ANEMIA. Stomach Ulcer. Hx ovarian cyst.IBS History of Any Multi-Drug Resistant Organisms: None Reported Past Surgical History: Ablation, Appendectomy, Section, Cholecystectomy, Hernia Repair, Hysterectomy, Tubal Ligation, Uterine Ablation Additional Past Surgical History / Comment(s): Laparoscopy X2, Section X3, right ovary and right tube removed, then total hysterectomy including left ovary and left fallopian tube, cyst removed from chest, ADHESION REMOVAL FROM PAST CSECTION, vaginal/pelvic biopsy. Scar tissure removal abdomen L upper lower Past Anesthesia/Blood Transfusion Reactions: No Reported Reaction Past Psychological History: Anxiety, Depression Smoking Status: Never smoker Past Alcohol Use History: Occasional Past Drug Use History: None Reported - Past Family History Mother Family Medical History: Deep Vein Thrombosis (DVT), Hyperlipidemia Additional Family Medical History / Comment(s): Depression and anxiety. DVT to arm after surgery. General Exam Limitations: no limitations General appearance: alert, in no apparent distress Head exam: Present: atraumatic, normocephalic, normal inspection Eye exam: Present: normal appearance, EOMI Neck exam: Present: normal inspection. Absent: meningismus Respiratory exam: Absent: respiratory distress Cardiovascular Exam: Present: regular rate GI/Abdominal exam: Present: tenderness Neurological exam: Present: alert, oriented X3 Psychiatric exam: Present: normal affect, normal mood Skin exam: Present: warm, dry, normal color Course Vital Signs 11/19/24 11/20/24 22:31 00:12 Temperature 98.2 F Pulse Rate 81 72 Respiratory 18 18 Rate Blood Pressure 138/84 126/83 O2 Sat by Pulse 100 98 Oximetry Medical Decision Making - Medical Decision Making Was pt. sent in by a medical professional or institution (, [facility], EXAMINATION SCORER, urgent care, hospital, or jail...) When possible be specific @ -No Did you speak to anyone other than the patient for history (EMS, parent, family, police, friend...)? What history was obtained from this source @ -No Did you review nursing and triage notes (agree or disagree)? Why? @ -I reviewed and agree with nursing and triage notes Were old charts reviewed (outside hosp., previous admission, EMS record, old EKG, old radiological studies, urgent care reports/EKG's, jail records)? Report findings @ -No old charts were reviewed Differential Diagnosis (chest pain, altered mental status, abdominal pain women, abdominal pain men, vaginal bleeding, weakness, fever, dyspnea, syncope, headache, dizziness, GI bleed, back pain, seizure, CVA, palpatations, mental health, musculoskeletal)? @ -MDM Differential Abdominal Pain Women: Appendicitis, Cholecystitis, diverticulosis, ischemic bowel, pancreatitis, hepatitis, UTI, gastroenteritis, AAA, incarcerated hernia, bowel obstruction, constipation, inflammatory bowel, hepatitis, peptic ulcer disease, splenic infarction, perforated viscus, vulvitis, ovarian torsion, PID, kidney stone, placenta abruption... This is not meant to be an all-inclusive list EKG interpreted by me (3pts min.). @ -As above X-rays interpreted by me (1pt min.). @ -None done CT interpreted by me (1pt min.). @ -None done U/S interpreted by me (1pt. min.). @ -None done What testing was considered but not performed or refused? (CT, X-rays, U/S, labs)? Why? @ -None What meds were considered but not given or refused? Why? @ -None Did you discuss the management of the patient with other professionals (professionals i.e. , PA, EXAMINATION SCORER, lab, RT, psych nurse, manager social services, director emergency, teacher, correction officer reformatory, sample case porter)? Give summary @ -No Was smoking cessation discussed for >3mins.? @ -No Was critical care preformed (if so, how long)? @ -No Were there social determinants of health that impacted care today? How? (Homelessness, low income, unemployed, alcoholism, drug addiction, transportation, low edu. Level, literacy, decrease access to med. care, halfway, rehab)? @ -No Was there de-escalation of care discussed even if they declined (Discuss DNR or withdrawal of care, Hospice)? DNR status @ -No What co-morbidities impacted this encounter? (DM, HTN, Smoking, COPD, CAD, Cancer, CVA, ARF, Chemo, Hep., AIDS, mental health diagnosis, sleep apnea, morbid obesity)? @ -None Was patient admitted / discharged? Hospital course, mention meds given and route , prescriptions, significant lab abnormalities, going to OR and other pertinent info. @ -34-year-old female presenting with chief complaint of pelvic and lower back pain. She has history of chronic pelvic and lower back pain. She is recently taken off of her opiates by pain management to try some different approaches and she thinks that that is why she is having such severe pain today. No new features to her pain. Urine is negative for UTI. Surgical history includes hysterectomy with bilateral salpingo-oophorectomy. Patient is treated with pain medication and Zofran as she is nauseous due to her pain. Follow-up with PCP. Report back to ER with any new or worsening symptoms. Discussed return parameters and answered all questions. Patient conveyed verbal understanding and agreed to the plan. I discussed this case in detail with my attending Dr. Carpio Undiagnosed new problem with uncertain prognosis? @ -No Drug Therapy requiring intensive monitoring for toxicity (Heparin, Nitro, Insulin, Cardizem)? @ -No Were any procedures done? @ -No Diagnosis/symptom? @ -Acute on chronic abdominal pain Acute, or Chronic, or Acute on Chronic? @ -Acute on chronic Uncomplicated (without systemic symptoms) or Complicated (systemic symptoms)? @ -Uncomplicated Side effects of treatment? @ -No Exacerbation, Progression, or Severe Exacerbation? @ -No Poses a threat to life or bodily function? How? (Chest pain, [place], [place], pneumonia, PE, COPD, DKA, ARF, appy, cholecystitis, CVA, Diverticulitis, Homicidal, Suicidal, threat to staff... and all critical care pts) @ -Unlikely - Lab Data Lab Results 11/19/24 Range/Units 23:00 Urine Color Colorless Urine Appearance Clear (Clear) Urine pH 7.5 (5.0-8.0) Ur Specific [place] 1.013 (1.001-1.035) Urine Protein Negative (Negative) Urine Glucose (UA) Negative (Negative) Urine Ketones Negative (Negative) Urine Blood Negative (Negative) Urine Nitrite Negative (Negative) Urine Bilirubin Negative (Negative) Urine Urobilinogen 3.0 (<2.0) mg/dL Ur Leukocyte Esterase Negative (Negative) Disposition Clinical Impression: Chronic pelvic pain in female Disposition: HOME SELF-CARE Condition: Good Instructions (If sedation given, give patient instructions): Chronic Abdominal Pain (ED) Additional Instructions: Follow-up with PCP and pain management. Report back to ER with any new or worsening symptoms. Is patient prescribed a controlled substance at d/c from ED?: No Referrals: Christiano Gutierrez MD [Primary Care Provider] - 1-2 days Time of Disposition: 00:05
[2024-11-20 00:15] VITALS: BP 126/83; PULSE 72
== END 2024-11-20 00:15 | disposition home or self-care (01) ==
LOC: EC 22:29
DX: G89.29 Other chronic pain (principal); R10.2 Pelvic and perineal pain; Z88.2 Allergy status to sulfonamides; Z88.1 Allergy status to other antibiotic agents; Z91.048 Other nonmedicinal substance allergy status; Z88.0 Allergy status to penicillin; Z88.8 Allergy status to other drugs, medicaments and biological substances
CPT/HCPCS: 81003; 99283; 96372; J1171

== ENCOUNTER 2024-11-21 20:05 | Emergency (ER) | payer OTHER ==
[2024-11-21] MEDS: SODIUM CHLORIDE 0.9% 1,000 ML IV ONE (23:18)
[2024-11-21] MEDS: METOCLOPRAMIDE 5 MG/ML 2 ML VIAL IVP STA (23:19)
[2024-11-21] MEDS: HYDROmorphone 1 MG/ML 1 ML SYRINGE IVP STA (23:19)
[2024-11-21] MEDS: LORATADINE 10 MG TAB PO STA (23:19)
[2024-11-21 23:39] LABS: Basophils # (A) 0.01 10*3/uL (0.00-0.10); Basophils % (A) 0.2 %; Eosinophils # (A) 0.03 10*3/uL (0.04-0.35); Eosinophils % (A) 0.6 %; HCT 34.8 % (37.2-46.3); HGB 11.8 g/dL (12.0-15.0); MCH 31.4 pg (27.0-32.0); MCHC 33.9 g/dL (32.0-37.0); MCV 92.6 fL (80.0-97.0); Mean Platelet Volume 9.7 fL (9.5-12.2); Monocytes # (A) 0.29 10*3/uL (0.20-1.00); Monocytes % (A) 5.8 %; Neutrophils # (A) 3.07 10*3/uL (1.80-7.70); Neutrophils % (A) 61.4 %; Platelet Count 213 10*3/uL (140-440); RBC 3.76 10*6/uL (4.10-5.20); RDW 12.7 % (11.5-14.5)
[2024-11-21 23:50] LABS: ALT 18 U/L (4-34); AST 25 U/L (14-36); African American GFR (CKD) >90 (>60 ml/min/1.73 sqM); Albumin 4.5 g/dL (3.5-5.0); Alkaline Phosphatase 83 U/L (38-126); Anion Gap 9 mmol/L; Blood Urea Nitrogen 14 mg/dL (7-17); Calcium 10.2 mg/dL (8.4-10.2); Carbon Dioxide 27 mmol/L (22-30); Chloride 105 mmol/L (98-107); Glucose 96 mg/dL (74-99); Non-African American GFR(CKD) >90 (>60 ml/min/1.73 sqM); Sodium 141 mmol/L (137-145); Total Protein 7.6 g/dL (6.3-8.2)
--- NOTE | 2024-11-22 00:03 | ED ---
Abdominal Pain HPI - General Chief Complaint: Abdominal Pain Stated Complaint: Abd Pain/ND Time Seen by Provider: 11/21/24 21:06 Source: patient Mode of arrival: ambulatory Limitations: no limitations - History of Present Illness Initial Comments: 34-year-old female well-known to the emergency department who presents for abdominal pain. Patient has chronic abdominal pain and has had multiple surgical procedures for diagnosis and treatment. Patient presents today reporting nonbloody diarrhea, generalized abdominal pain with nausea and vomiting. She reports that she is going to see a paint prep technician next week. She denies fevers. No dysuria, hematuria or difficulty voiding. Denies vaginal discharge. No other alleviating, precipitating or modifying factors - Related Data Home Medications Medication Instructions Recorded Confirmed Budesonide/Formoterol Fumarate 2 puff INHALATION RT-BID 09/02/24 09/24/24 [Symbicort 160-4.5 Mcg Inhaler] Escitalopram Oxalate [Lexapro] 20 mg PO HS 09/02/24 09/24/24 Gabapentin [Neurontin] 200 mg PO TID 09/02/24 09/24/24 HYDROcodone/APAP 10-325MG [[place] 1 tab PO TID PRN 09/02/24 09/24/24 10-325] Omeprazole [PriLOSEC] 40 mg PO HS 09/02/24 09/24/24 ondansetron HCL [Zofran] 8 mg PO Q12HR PRN 09/02/24 09/24/24 Ibuprofen 800 mg PO DAILY PRN 09/24/24 09/24/24 Previous Rx's Medication Instructions Recorded Prochlorperazine [Compazine] 10 mg PO Q6H #15 tab 10/01/24 Nitrofurantoin Monohyd/M-Cryst 100 mg PO Q12HR #10 cap 10/09/24 [Macrobid] Ciprofloxacin HCl [Cipro] 500 mg PO BID 7 Days #14 tab 10/18/24 Allergies Allergy/AdvReac Type Severity Reaction Status Date / Time sulfamethoxazole Allergy Severe Anaphylaxis Verified 11/23/24 20:16 [From Bactrim] trimethoprim [From Bactrim] Allergy Severe Anaphylaxis Verified 11/23/24 20:16 adhesive tape Allergy Rash/Hives Verified 11/23/24 20:16 aloe vera Allergy Rash/Hives Verified 11/23/24 20:16 amoxicillin [From Augmentin] Allergy Itching Verified 11/23/24 20:16 azithromycin Allergy Rash/Hives Verified 11/23/24 20:16 cephalexin Allergy Rash/Hives Verified 11/23/24 20:16 clavulanic acid Allergy Itching Verified 11/23/24 20:16 [From Augmentin] metronidazole [From Flagyl] Allergy Rash/Hives Verified 11/23/24 20:16 Penicillins Allergy Rash/Hives Verified 11/23/24 20:16 alprazolam [From Xanax] AdvReac MAKES Verified 11/23/24 20:16 PARANOID dicyclomine [From Bentyl] AdvReac constipatio Verified 11/23/24 20:16 n Review of Systems ROS Statement: Those systems with pertinent positive or pertinent negative responses have been documented in the HPI. ROS Other: All systems not noted in ROS Statement are negative. Past Medical History Past Medical History: Blood Disorder, GERD/Reflux Additional Past Medical History / Comment(s): Endometriosis, polycystic ovarian syndrome. IRON DEFICIENCY ANEMIA. Stomach Ulcer. Hx ovarian cyst.IBS History of Any Multi-Drug Resistant Organisms: None Reported Past Surgical History: Ablation, Appendectomy, Section, Cholecystectomy , Hernia Repair, Hysterectomy, Tubal Ligation, Uterine Ablation Additional Past Surgical History / Comment(s): Laparoscopy X2, Section X3, right ovary and right tube removed, then total hysterectomy including left ovary and left fallopian tube, cyst removed from chest, ADHESION REMOVAL FROM PAST CSECTION, vaginal/pelvic biopsy. Scar tissure removal abdomen L upper lower Past Anesthesia/Blood Transfusion Reactions: No Reported Reaction Past Psychological History: Anxiety, Depression Smoking Status: Never smoker Past Alcohol Use History: Occasional Past Drug Use History: None Reported - Past Family History Mother Family Medical History: Deep Vein Thrombosis (DVT), Hyperlipidemia Additional Family Medical History / Comment(s): Depression and anxiety. DVT to arm after surgery. General Exam Limitations: no limitations General appearance: alert, in no apparent distress Head exam: Present: atraumatic, normocephalic, normal inspection Eye exam: Present: normal appearance, PERRL, EOMI. Absent: scleral icterus, conjunctival injection, periorbital swelling ENT exam: Present: normal exam, mucous membranes moist Neck exam: Present: normal inspection. Absent: tenderness, meningismus, lymp hadenopathy Respiratory exam: Present: normal lung sounds bilaterally. Absent: respiratory distress, wheezes, rales, rhonchi, stridor Cardiovascular Exam: Present: regular rate, normal rhythm, normal heart sounds. Absent: systolic murmur, diastolic murmur, rubs, gallop, clicks GI/Abdominal exam: Present: soft, normal bowel sounds. Absent: distended, tenderness, guarding, rebound, rigid Extremities exam: Present: normal inspection, full ROM, normal capillary refill. Absent: tenderness, pedal edema, joint swelling, calf tenderness Back exam: Present: normal inspection Neurological exam: Present: alert, oriented X3, CN II-XII intact Psychiatric exam: Present: normal affect, normal mood Skin exam: Present: warm, dry, intact, normal color. Absent: rash Course Vital Signs 11/21/24 11/22/24 11/22/24 20:22 00:29 01:27 Temperature 98.4 F 98.1 F 98.4 F Pulse Rate 91 67 78 Respiratory 18 19 19 Rate Blood Pressure 128/87 112/69 111/74 O2 Sat by Pulse 100 98 98 Oximetry Medical Decision Making - Medical Decision Making Was pt. sent in by a medical professional or institution (, PA, PASSENGER TRAIN BRAKER, urgent care, hospital, or correction...) When possible be specific @ -No Did you speak to anyone other than the patient for history (EMS, parent, family, police, friend...)? What history was obtained from this source @ -No Did you review nursing and triage notes (agree or disagree)? Why? @ -I reviewed and agree with nursing and triage notes Were old charts reviewed (outside hosp., previous admission, EMS record, old EKG, old radiological studies, urgent care reports/EKG's, correction records)? Report findings @ -No old charts were reviewed Differential Diagnosis (chest pain, altered mental status, abdominal pain women, abdominal pain men, vaginal bleeding, weakness, fever, dyspnea, syncope, headache, dizziness, GI bleed, back pain, seizure, CVA, palpatations, mental health, musculoskeletal)? @ -Differential Abdominal Pain Women: Appendicitis, Cholecystitis, diverticulosis, ischemic bowel, pancreatitis, hepatitis, UTI, gastroenteritis, AAA, incarcerated hernia, bowel obstruction, constipation, inflammatory bowel, hepatitis, peptic ulcer disease, splenic infarction, perforated viscus, vulvitis, ovarian torsion, PID, kidney stone, placenta abruption, this is not meant to be an all-inclusive list EKG interpreted by me (3pts min.). @ -Not done X-rays interpreted by me (1pt min.). @ -None done CT interpreted by me (1pt min.). @ -None done U/S interpreted by me (1pt. min.). @ -None done What testing was considered but not performed or refused? (CT, X-rays, U/S, labs)? Why? @ -None What meds were considered but not given or refused? Why? @ -None Did you discuss the management of the patient with other professionals (professionals i.e. DrLuciano, PA, PASSENGER TRAIN BRAKER, lab, RT, psych nurse, clinical social worker, ship scraper, teacher, transport corps officer, child support case officer)? Give summary @ -No Was smoking cessation discussed for >3mins.? @ -No Was critical care preformed (if so, how long)? @ -No Were there social determinants of health that impacted care today? How? (Homele ssness, low income, unemployed, alcoholism, drug addiction, transportation, low edu. Level, literacy, decrease access to med. care, longterm, rehab)? @ -No Was there de-escalation of care discussed even if they declined (Discuss DNR or withdrawal of care, Hospice)? DNR status @ -No What co-morbidities impacted this encounter? (DM, HTN, Smoking, COPD, CAD, Cancer, CVA, ARF, Chemo, Hep., AIDS, mental health diagnosis, sleep apnea, morbid obesity)? @ -Chronic abdominal pain Was patient admitted / discharged? Hospital course, mention meds given and route, prescriptions, significant lab abnormalities, going to OR and other pertinent info. @ -Upon arrival patient seen and evaluated in room 22. Thorough history and physical exam was performed. IV access was established. Patient was given antiemetics and pain control. Laboratory studies are conducted. Patient's abdomen is soft. She does have alleviation in her pain. Patient will discharge home at this time. Instructed to follow-up with her pain management doctor next week. Return for any new or worsening symptoms. Patient agreeable plan she was discharged in stable condition Undiagnosed new problem with uncertain prognosis? @ -No Drug Therapy requiring intensive monitoring for toxicity (Heparin, Nitro, Insulin, Cardizem)? @ -No Were any procedures done? @ -No Diagnosis/symptom? @ -Acute exacerbation of chronic abdominal pain Acute, or Chronic, or Acute on Chronic? @ -Acute on chronic Uncomplicated (without systemic symptoms) or Complicated (systemic symptoms)? @ -Complicated Side effects of treatment? @ -No Exacerbation, Progression, or Severe Exacerbation? @ -Yes Poses a threat to life or bodily function? How? (Chest pain, [place], [place], pneumonia, PE, COPD, DKA, ARF, appy, cholecystitis, CVA, Diverticulitis, Homicidal, Suicidal, threat to staff... and all critical care pts) @ -No - Lab Data Result diagrams: 11/21/24 23:24 11/21/24 23:24 Lab Results 11/21/24 11/21/24 Range/Units 23:24 23:24 WBC 5.00 (4.50-10.00) 10*3/uL RBC 3.76 L (4.10-5.20) 10*6/uL Hgb 11.8 L (12.0-15.0) g/dL Hct 34.8 L (37.2-46.3) % MCV 92.6 (80.0-97.0) fL MCH 31.4 (27.0-32.0) pg MCHC 33.9 (32.0-37.0) g/dL Plt Count 213 (140-440) 10*3/uL MPV 9.7 (9.5-12.2) fL Immature Gran % (Auto) 0 % Neutrophils % 61.4 % Lymphocytes % 32.0 % Monocytes % 5.8 % Eosinophils % 0.6 % Basophils % 0.2 % Immature Gran # 0.00 (0.00-0.04) 10*3/uL Neutrophils # 3.07 (1.80-7.70) 10*3/uL Lymphocytes # 1.60 (0.90-5.00) 10*3/uL Monocytes # 0.29 (0.20-1.00) 10*3/uL Eosinophils # 0.03 L (0.04-0.35) 10*3/uL Basophils # 0.01 (0.00-0.10) 10*3/uL Sodium 141 (137-145) mmol/L Potassium 4.0 (3.5-5.1) mmol/L Chloride 105 (98-107) mmol/L Carbon Dioxide 27 (22-30) mmol/L Anion Gap 9 mmol/L BUN 14 (7-17) mg/dL Creatinine 0.66 (0.52-1.04) mg/dL Est GFR (CKD-EPI)AfAm >90 (>60 ml/min/1.73 sqM) Est GFR (CKD-EPI)NonAf >90 (>60 ml/min/1.73 sqM) Glucose 96 (74-99) mg/dL Calcium 10.2 (8.4-10.2) mg/dL Total Bilirubin 1.0 (0.2-1.3) mg/dL AST 25 (14-36) U/L ALT 18 (4-34) U/L Alkaline Phosphatase 83 (38-126) U/L Total Protein 7.6 (6.3-8.2) g/dL Albumin 4.5 (3.5-5.0) g/dL Disposition Clinical Impression: Chronic abdominal pain, Diarrhea Disposition: HOME SELF-CARE Condition: Stable Instructions (If sedation given, give patient instructions): Abdominal Pain (ED) Additional Instructions: Please see your paint prep technician as it is scheduled. Return for any new or worsening symptoms Is patient prescribed a controlled substance at d/c from ED?: No Referrals: Christiano Gutierrez MD [Primary Care Provider] - 1-2 days Time of Disposition: 00:09
[2024-11-22 00:30] VITALS: RESP 19
[2024-11-22] MEDS: HYDROmorphone 0.5 MG/0.5 ML SYRINGE IVP STA (00:39)
[2024-11-22 01:34] VITALS: BP 111/74; PULSE 78; TEMP 98.4
== END 2024-11-22 01:33 | disposition home or self-care (01) ==
LOC: EC 20:05
DX: G89.29 Other chronic pain (principal); R10.84 Generalized abdominal pain; Z88.0 Allergy status to penicillin; Z88.1 Allergy status to other antibiotic agents; Z91.048 Other nonmedicinal substance allergy status; Z88.8 Allergy status to other drugs, medicaments and biological substances
CPT/HCPCS: 36415; 80053; 85025; 99284; 96374; 96375; 96361; 96376; J2765; J1171 ×2

== ENCOUNTER 2024-11-23 20:07 | Emergency (ER) | payer OTHER ==
--- NOTE | 2024-11-23 20:52 | ED ---
Recheck HPI - General Chief Complaint: Recheck/Abnormal Lab/Rx Stated Complaint: Abd/ back pain Time Seen by Provider: 11/23/24 20:51 Source: patient, RN notes reviewed Mode of arrival: ambulatory Limitations: no limitations - History of Present Illness Initial Comments: 34-year-old female presented the ER for evaluation of chronic pain. Patient states she has chronic pelvic pain and typically takes [place] 10s, Norflex, gabapentin and naproxen for pain control. She states she is following up with pain management on 11-25-2024. Her PCP did not want to refill [place] 10s so that if pain management wanted to prescribe her pain medication the prescriptions would not overlap. She also states her IBS pain is flaring up. She states all of her symptoms are chronic. She denies any fevers, chills, chest pain, shortness of breath, urinary complaints, or other complaints. - Related Data Home Medications Medication Instructions Recorded Confirmed Budesonide/Formoterol Fumarate 2 puff INHALATION RT-BID 09/02/24 09/24/24 [Symbicort 160-4.5 Mcg Inhaler] Escitalopram Oxalate [Lexapro] 20 mg PO HS 09/02/24 09/24/24 Gabapentin [Neurontin] 200 mg PO TID 09/02/24 09/24/24 HYDROcodone/APAP 10-325MG [[place] 1 tab PO TID PRN 09/02/24 09/24/24 10-325] Omeprazole [PriLOSEC] 40 mg PO HS 09/02/24 09/24/24 ondansetron HCL [Zofran] 8 mg PO Q12HR PRN 09/02/24 09/24/24 Ibuprofen 800 mg PO DAILY PRN 09/24/24 09/24/24 Previous Rx's Medication Instructions Recorded Prochlorperazine [Compazine] 10 mg PO Q6H #15 tab 10/01/24 Nitrofurantoin Monohyd/M-Cryst 100 mg PO Q12HR #10 cap 10/09/24 [Macrobid] Ciprofloxacin HCl [Cipro] 500 mg PO BID 7 Days #14 tab 10/18/24 Allergies Allergy/AdvReac Type Severity Reaction Status Date / Time sulfamethoxazole Allergy Severe Anaphylaxis Verified 11/23/24 20:16 [From Bactrim] trimethoprim [From Bactrim] Allergy Severe Anaphylaxis Verified 11/23/24 20:16 adhesive tape Allergy Rash/Hives Verified 11/23/24 20:16 aloe vera Allergy Rash/Hives Verified 11/23/24 20:16 amoxicillin [From Augmentin] Allergy Itching Verified 11/23/24 20:16 azithromycin Allergy Rash/Hives Verified 11/23/24 20:16 cephalexin Allergy Rash/Hives Verified 11/23/24 20:16 clavulanic acid Allergy Itching Verified 11/23/24 20:16 [From Augmentin] metronidazole [From Flagyl] Allergy Rash/Hives Verified 11/23/24 20:16 Penicillins Allergy Rash/Hives Verified 11/23/24 20:16 alprazolam [From Xanax] AdvReac MAKES Verified 11/23/24 20:16 PARANOID dicyclomine [From Bentyl] AdvReac constipatio Verified 11/23/24 20:16 n Review of Systems ROS Statement: Those systems with pertinent positive or pertinent negative responses have been documented in the HPI. ROS Other: All systems not noted in ROS Statement are negative. Past Medical History Past Medical History: Blood Disorder, GERD/Reflux Additional Past Medical History / Comment(s): Endometriosis, polycystic ovarian syndrome. IRON DEFICIENCY ANEMIA. Stomach Ulcer. Hx ovarian cyst.IBS History of Any Multi-Drug Resistant Organisms: None Reported Past Surgical History: Ablation, Appendectomy, Section, Cholecystectomy, Hernia Repair, Hysterectomy, Tubal Ligation, Uterine Ablation Additional Past Surgical History / Comment(s): Laparoscopy X2, Section X3, right ovary and right tube removed, then total hysterectomy including left ovary and left fallopian tube, cyst removed from chest, ADHESION REMOVAL FROM PAST CSECTION, vaginal/pelvic biopsy. Scar tissure removal abdomen L upper lower Past Anesthesia/Blood Transfusion Reactions: No Reported Reaction Past Psychological History: Anxiety, Depression Smoking Status: Never smoker Past Alcohol Use History: Occasional Past Drug Use History: None Reported - Past Family History Mother Family Medical History: Deep Vein Thrombosis (DVT), Hyperlipidemia Additional Family Medical History / Comment(s): Depression and anxiety. DVT to arm after surgery. General Exam Limitations: no limitations General appearance: alert, in no apparent distress Respiratory exam: Present: normal lung sounds bilaterally. Absent: respiratory distress, wheezes, rales, rhonchi, stridor Cardiovascular Exam: Present: regular rate, normal rhythm, normal heart sounds. Absent: systolic murmur, diastolic murmur, rubs, gallop, clicks GI/Abdominal exam: Present: soft, tenderness (generalized), normal bowel sounds Neurological exam: Present: alert, oriented X3, CN II-XII intact Skin exam: Present: warm, dry, intact, normal color. Absent: rash Course Vital Signs 11/23/24 11/23/24 20:13 22:54 Temperature 98.6 F 98.0 F Pulse Rate 108 H 71 Respiratory 17 18 Rate Blood Pressure 133/79 124/68 O2 Sat by Pulse 99 99 Oximetry Medical Decision Making - Medical Decision Making Was pt. sent in by a medical professional or institution (, PA, CLINICAL INVESTIGATOR, urgent care, hospital, or group home...) When possible be specific @ -No Did you speak to anyone other than the patient for history (EMS, parent, family, police, friend...)? What history was obtained from this source @ -No Did you review nursing and triage notes (agree or disagree)? Why? @ -I reviewed and agree with nursing and triage notes Were old charts reviewed (outside hosp., previous admission, EMS record, old EKG, old radiological studies, urgent care reports/EKG's, group home records)? Report findings @ -Prior medical records Differential Diagnosis (chest pain, altered mental status, abdominal pain women, abdominal pain men, vaginal bleeding, weakness, fever, dyspnea, syncope, headache, dizziness, GI bleed, back pain, seizure, CVA, palpatations, mental health, musculoskeletal)? @ -Differential Abdominal Pain Women:Appendicitis, Cholecystitis, diverticulosis, ischemic bowel, pancreatitis, hepatitis, UTI, gastroenteritis, AAA, incarcerated hernia, bowel obstruction, constipation, inflammatory bowel, hepatitis, peptic ulcer disease, splenic infarction, perforated viscus, vulvitis, ovarian torsion, PID, kidney stone, placenta abruption, this is not meant to be an all-inclusive list EKG interpreted by me (3pts min.). @ -None done X-rays interpreted by me (1pt min.). @ -None done CT interpreted by me (1pt min.). @ -None done U/S interpreted by me (1pt. min.). @ -None done What testing was considered but not performed or refused? (CT, X-rays, U/S, labs)? Why? @ -Imaging deferred as there is no focal abdominal tenderness and patient has had numerous CT scans in the past. She also states pain is typical of her chronic pain. Patient agreeable. What meds were considered but not given or refused? Why? @ -None Did you discuss the management of the patient with other professionals (professionals i.e. , PA, CLINICAL INVESTIGATOR, lab, RT, psych nurse, social welfare administrator, mental measurements teacher, teacher, transport corps officer, hospice case manager)? Give summary @ -No Was smoking cessation discussed for >3mins.? @ -No Was critical care preformed (if so, how long)? @ -No Were there social determinants of health that impacted care today? How? (Homelessness, low income, unemployed, alcoholism, drug addiction, transportation, low edu. Level, literacy, decrease access to med. care, long term, rehab)? @ -No Was there de-escalation of care discussed even if they declined (Discuss DNR or withdrawal of care, Hospice)? DNR status @ -No What co-morbidities impacted this encounter? (DM, HTN, Smoking, COPD, CAD, Cancer, CVA, ARF, Chemo, Hep., AIDS, mental health diagnosis, sleep apnea, morbid obesity)? @ -IBS, endometriosis, chronic pain Was patient admitted / discharged? Hospital course, mention meds given and route, prescriptions, significant lab abnormalities, going to OR and other pertinent info. @ -Discharge. 34-year-old female well-known to this emergency department presented the ER for evaluation of chronic pain. Vitals with acceptable limits. Patient in no signs of acute distress nontoxic-appearing. Laboratory studies appear to be at patient's baseline with a hemoglobin of 11.2. WBC 4.3. CMP unremarkable. Urinalysis with with 1+ protein and trace leukocyte esterases. 6 WBCs. Urine hCG negative. Patient received IV fluid bolus along with symptomatic control with improvement. Patient be discharged stable condition with follow-up to pain management as scheduled. Tylenol 3 starter pack given for pain control until pain management appointment. Patient discharged stable condition. Patient verbally expressed understanding agree with care plan. Case discussed with ED attending Dr. Araujo. Undiagnosed new problem with uncertain prognosis? @ -No Drug Therapy requiring intensive monitoring for toxicity (Heparin, Nitro, Insulin, Cardizem)? @ -No Were any procedures done? @ -No Diagnosis/symptom? @ -Abdominal pain Acute, or Chronic, or Acute on Chronic? @ -Chronic Uncomplicated (without systemic symptoms) or Complicated (systemic symptoms)? @ -Uncomplicated Side effects of treatment? @ -No Exacerbation, Progression, or Severe Exacerbation? @ -No Poses a threat to life or bodily function? How? (Chest pain, [place], [place], pneumonia, PE, COPD, DKA, ARF, appy, cholecystitis, CVA, Diverticulitis, Homicidal, Suicidal, threat to staff... and all critical care pts) @ -Low - Lab Data Result diagrams: 11/23/24 20:53 11/23/24 20:53 Lab Results 11/23/24 11/23/24 11/23/24 Range/Units 20:53 20:53 20:53 WBC 4.35 L (4.50-10.00) 10*3/uL RBC 3.52 L (4.10-5.20) 10*6/uL Hgb 11.2 L (12.0-15.0) g/dL Hct 32.5 L (37.2-46.3) % MCV 92.3 (80.0-97.0) fL MCH 31.8 (27.0-32.0) pg MCHC 34.5 (32.0-37.0) g/dL Plt Count 207 (140-440) 10*3/uL MPV 9.9 (9.5-12.2) fL Immature Gran % (Auto) 0 % Neutrophils % 51.5 % Lymphocytes % 40.9 % Monocytes % 6.9 % Eosinophils % 0.5 % Basophils % 0.2 % Immature Gran # 0.00 (0.00-0.04) 10*3/uL Neutrophils # 2.24 (1.80-7.70) 10*3/uL Lymphocytes # 1.78 (0.90-5.00) 10*3/uL Monocytes # 0.30 (0.20-1.00) 10*3/uL Eosinophils # 0.02 L (0.04-0.35) 10*3/uL Basophils # 0.01 (0.00-0.10) 10*3/uL Sodium 140 (137-145) mmol/L Potassium 3.7 (3.5-5.1) mmol/L Chloride 104 (98-107) mmol/L Carbon Dioxide 28 (22-30) mmol/L Anion Gap 8 mmol/L BUN 14 (7-17) mg/dL Creatinine 0.77 (0.52-1.04) mg/dL Est GFR (CKD-EPI)AfAm >90 (>60 ml/min/1.73 sqM) Est GFR (CKD-EPI)NonAf >90 (>60 ml/min/1.73 sqM) Glucose 94 (74-99) mg/dL Calcium 10.0 (8.4-10.2) mg/dL Total Bilirubin 1.1 (0.2-1.3) mg/dL AST 21 (14-36) U/L ALT 17 (4-34) U/L Alkaline Phosphatase 74 (38-126) U/L Total Protein 7.2 (6.3-8.2) g/dL Albumin 4.3 (3.5-5.0) g/dL Urine Color Yellow Urine Appearance Cloudy H (Clear) Urine pH 6.0 (5.0-8.0) Ur Specific [place] 1.030 (1.001-1.035) Urine Protein 1+ H (Negative) Urine Glucose (UA) Negative (Negative) Urine Ketones Negative (Negative) Urine Blood Negative (Negative) Urine Nitrite Negative (Negative) Urine Bilirubin Negative (Negative) Urine Urobilinogen 2.0 (<2.0) mg/dL Ur Leukocyte Esterase Trace H (Negative) Urine RBC 1 (0-5) /hpf Urine WBC 6 H (0-5) /hpf Hyaline Casts 82 H (0-2) /lpf Urine Mucus Many H (None) /hpf Urine HCG, Qual (Not Detectd) 11/23/24 Range/Units 20:53 WBC (4.50-10.00) 10*3/uL RBC (4.10-5.20) 10*6/uL Hgb (12.0-15.0) g/dL Hct (37.2-46.3) % MCV (80.0-97.0) fL MCH (27.0-32.0) pg MCHC (32.0-37.0) g/dL Plt Count (140-440) 10*3/uL MPV (9.5-12.2) fL Immature Gran % (Auto) % Neutrophils % % Lymphocytes % % Monocytes % % Eosinophils % % Basophils % % Immature Gran # (0.00-0.04) 10*3/uL Neutrophils # (1.80-7.70) 10*3/uL Lymphocytes # (0.90-5.00) 10*3/uL Monocytes # (0.20-1.00) 10*3/uL Eosinophils # (0.04-0.35) 10*3/uL Basophils # (0.00-0.10) 10*3/uL Sodium (137-145) mmol/L Potassium (3.5-5.1) mmol/L Chloride (98-107) mmol/L Carbon Dioxide (22-30) mmol/L Anion Gap mmol/L BUN (7-17) mg/dL Creatinine (0.52-1.04) mg/dL Est GFR (CKD-EPI)AfAm (>60 ml/min/1.73 sqM) Est GFR (CKD-EPI)NonAf (>60 ml/min/1.73 sqM) Glucose (74-99) mg/dL Calcium (8.4-10.2) mg/dL Total Bilirubin (0.2-1.3) mg/dL AST (14-36) U/L ALT (4-34) U/L Alkaline Phosphatase (38-126) U/L Total Protein (6.3-8.2) g/dL Albumin (3.5-5.0) g/dL Urine Color Urine Appearance (Clear) Urine pH (5.0-8.0) Ur Specific [place] (1.001-1.035) Urine Protein (Negative) Urine Glucose (UA) (Negative) Urine Ketones (Negative) Urine Blood (Negative) Urine Nitrite (Negative) Urine Bilirubin (Negative) Urine Urobilinogen (<2.0) mg/dL Ur Leukocyte Esterase (Negative) Urine RBC (0-5) /hpf Urine WBC (0-5) /hpf Hyaline Casts (0-2) /lpf Urine Mucus (None) /hpf Urine HCG, Qual Not Detected (Not Detectd) Disposition Clinical Impression: Chronic pain Disposition: HOME SELF-CARE Condition: Stable Additional Instructions: Follow-up with pain management as scheduled. Return to the ER for any new or worsening concerns. Is patient prescribed a controlled substance at d/c from ED?: No Referrals: Christiano Gutierrez MD [Primary Care Provider] - 1-2 days Time of Disposition: 22:22
[2024-11-23] MEDS: ONDANSETRON 4 MG/2 ML VIAL IVP STA (21:08)
[2024-11-23] MEDS: HYDROmorphone 1 MG/ML 1 ML SYRINGE IVP STA (21:08)
[2024-11-23] MEDS: SODIUM CHLORIDE 0.9% 500 ML 500 ML IV ONE (21:10)
[2024-11-23 21:30] LABS: Basophils # (A) 0.01 10*3/uL (0.00-0.10); Basophils % (A) 0.2 %; Eosinophils # (A) 0.02 10*3/uL (0.04-0.35); Eosinophils % (A) 0.5 %; HCT 32.5 % (37.2-46.3); HGB 11.2 g/dL (12.0-15.0); Lymphocytes # (A) 1.78 10*3/uL (0.90-5.00); Lymphocytes % (A) 40.9 %; MCH 31.8 pg (27.0-32.0); MCHC 34.5 g/dL (32.0-37.0); MCV 92.3 fL (80.0-97.0); Mean Platelet Volume 9.9 fL (9.5-12.2); Monocytes % (A) 6.9 %; Neutrophils # (A) 2.24 10*3/uL (1.80-7.70); Neutrophils % (A) 51.5 %; Platelet Count 207 10*3/uL (140-440); RBC 3.52 10*6/uL (4.10-5.20); RDW 12.9 % (11.5-14.5); WBC 4.35 10*3/uL (4.50-10.00)
[2024-11-23 21:35] LABS: Appearance,Urine Cloudy (Clear); Bilirubin,Urine Negative (Negative); Blood,Urine Negative (Negative); Color,Urine Yellow; Glucose,Urine (UA) Negative (Negative); Hyaline Casts,Urine 82 /lpf (0-2); Ketones,Urine Negative (Negative); Leukocyte Esterase,Urine Trace (Negative); Mucus,Urine Many /hpf; Nitrite,Urine Negative (Negative); Protein,Urine 1+ (Negative); RBC,Urine 1 /hpf (0-5); WBC,Urine 6 /hpf (0-5)
[2024-11-23 21:46] LABS: ALT 17 U/L (4-34); AST 21 U/L (14-36); African American GFR (CKD) >90 (>60 ml/min/1.73 sqM); Albumin 4.3 g/dL (3.5-5.0); Alkaline Phosphatase 74 U/L (38-126); Anion Gap 8 mmol/L; Blood Urea Nitrogen 14 mg/dL (7-17); Carbon Dioxide 28 mmol/L (22-30); Chloride 104 mmol/L (98-107); Glucose 94 mg/dL (74-99); Non-African American GFR(CKD) >90 (>60 ml/min/1.73 sqM); Potassium 3.7 mmol/L (3.5-5.1); Sodium 140 mmol/L (137-145); Total Bilirubin 1.1 mg/dL (0.2-1.3); Total Protein 7.2 g/dL (6.3-8.2)
[2024-11-23] MEDS: HYDROmorphone 0.5 MG/0.5 ML SYRINGE IVP STA (22:48)
[2024-11-23] MEDS: ACET/COD 300 MG/30 MG STARTER PACK 6 TAB BTL PO STA (22:50)
[2024-11-23] MEDS: KETOROLAC 15 MG/ML 1 ML VIAL IVP STA (22:50)
[2024-11-23 22:56] VITALS: BP 124/68; PULSE 71; RESP 18; TEMP 98
== END 2024-11-23 23:00 | disposition home or self-care (01) ==
LOC: EC 20:07
DX: G89.29 Other chronic pain (principal); K58.9 Irritable bowel syndrome, unspecified; N80.9 Endometriosis, unspecified; Z88.0 Allergy status to penicillin; Z88.1 Allergy status to other antibiotic agents; Z88.2 Allergy status to sulfonamides; Z91.048 Other nonmedicinal substance allergy status; Z88.8 Allergy status to other drugs, medicaments and biological substances
CPT/HCPCS: 36415; 80053; 85025; 81001; 81025; 99284; 96374; 96375 ×2; 96376; 96361; J2405; J1171 ×2; J1885

== ENCOUNTER 2024-12-05 21:47 | Emergency (ER) | payer OTHER ==
[2024-12-05 22:11] VITALS: TEMP 98.5
--- NOTE | 2024-12-05 22:25 | ED ---
General Adult HPI - General Chief complaint: Abdominal Pain Stated complaint: ND abd pain Time Seen by Provider: 12/05/24 22:13 Source: patient Mode of arrival: wheelchair Limitations: no limitations - History of Present Illness Initial comments: Patient is a 34 y/o female, PMH IBS, opioid dependance, GERD, endometriosis, here today for IBS flare. Patient describes abdominal discomfort as consistent with prior IBS flares. She states that she is now seeing a pain clinic and is prescribed Percocet twice daily. She states that she took her Percocet earlier than she was supposed to today and "let her pain get out of control" and has been unable to control the pain with home Norflex. Patient endorses mild nausea, denies vomiting, denies constipation, melena, hematochezia, patient endorses few episodes of loose stool. She denies fevers, chest pain, shortness of breath, vaginal bleeding or discharge. Does endorse dysuria and itching in her pelvic region. Prior surgical history does include a prior appendectomy, cholecystectomy, hysterectomy, tubal ligation and hernia repair. - Related Data Home Medications Medication Instructions Recorded Confirmed Budesonide/Formoterol Fumarate 2 puff INHALATION RT-BID 09/02/24 09/24/24 [Symbicort 160-4.5 Mcg Inhaler] Escitalopram Oxalate [Lexapro] 20 mg PO HS 09/02/24 09/24/24 Gabapentin [Neurontin] 200 mg PO TID 09/02/24 09/24/24 HYDROcodone/APAP 10-325MG [[place] 1 tab PO TID PRN 09/02/24 09/24/24 10-325] Omeprazole [PriLOSEC] 40 mg PO HS 09/02/24 09/24/24 ondansetron HCL [Zofran] 8 mg PO Q12HR PRN 09/02/24 09/24/24 Ibuprofen 800 mg PO DAILY PRN 09/24/24 09/24/24 Previous Rx's Medication Instructions Recorded Prochlorperazine [Compazine] 10 mg PO Q6H #15 tab 10/01/24 Nitrofurantoin Monohyd/M-Cryst 100 mg PO Q12HR #10 cap 10/09/24 [Macrobid] Ciprofloxacin HCl [Cipro] 500 mg PO BID 7 Days #14 tab 10/18/24 Allergies Allergy/AdvReac Type Severity Reaction Status Date / Time sulfamethoxazole Allergy Severe Anaphylaxis Verified 12/08/24 20:19 [From Bactrim] trimethoprim [From Bactrim] Allergy Severe Anaphylaxis Verified 12/08/24 20:19 adhesive tape Allergy Rash/Hives Verified 12/08/24 20:19 aloe vera Allergy Rash/Hives Verified 12/08/24 20:19 amoxicillin [From Augmentin] Allergy Itching Verified 12/08/24 20:19 azithromycin Allergy Rash/Hives Verified 12/08/24 20:19 cephalexin Allergy Rash/Hives Verified 12/08/24 20:19 clavulanic acid Allergy Itching Verified 12/08/24 20:19 [From Augmentin] metronidazole [From Flagyl] Allergy Rash/Hives Verified 12/08/24 20:19 Penicillins Allergy Rash/Hives Verified 12/08/24 20:19 alprazolam [From Xanax] AdvReac MAKES Verified 12/08/24 20:19 PARANOID dicyclomine [From Bentyl] AdvReac constipatio Verified 12/08/24 20:19 n Review of Systems ROS Statement: Those systems with pertinent positive or pertinent negative responses have been documented in the HPI. ROS Other: All systems not noted in ROS Statement are negative. Past Medical History Past Medical History: Blood Disorder, GERD/Reflux Additional Past Medical History / Comment(s): Endometriosis, polycystic ovarian syndrome. IRON DEFICIENCY ANEMIA. Stomach Ulcer. Hx ovarian cyst.IBS History of Any Multi-Drug Resistant Organisms: None Reported Past Surgical History: Ablation, Appendectomy, Section, Cholecystectomy, Hernia Repair, Hysterectomy, Tubal Ligation, Uterine Ablation Additional Past Surgical History / Comment(s): Laparoscopy X2, Section X3, right ovary and right tube removed, then total hysterectomy including left ovary and left fallopian tube, cyst removed from chest, ADHESION REMOVAL FROM PAST CSECTION, vaginal/pelvic biopsy. Scar tissure removal abdomen L upper lower Past Anesthesia/Blood Transfusion Reactions: No Reported Reaction Past Psychological History: Anxiety, Depression Smoking Status: Never smoker Past Alcohol Use History: Occasional Past Drug Use History: None Reported - Past Family History Mother Family Medical History: Deep Vein Thrombosis (DVT), Hyperlipidemia Additional Family Medical History / Comment(s): Depression and anxiety. DVT to arm after surgery. General Exam - General Exam Comments Initial Comments: PE: CONSTITUTIONAL: No apparent distress, well appearing SKIN: Warm, dry, no jaundice, hives or petechiae EYES: Pupils are equally round, extraocular movements intact without nystagmus, clear conjunctiva, non-icteric sclera HENT: Normocephalic, atraumatic, moist mucus membranes NECK: , Full range of motion, normal appearance PULMONARY: Clear to auscultation without wheezes, rhonchi, or rales, normal excursion, no accessory muscle use and no stridor CARDIOVASCULAR: Regular rate, rhythm, normal S1 and S2. No appreciated murmurs, rubs or gallops. Strong radial pulses with intact distal perfusion. No lower extremity edema GASTROINTESTINAL: Soft, active bowel sounds throughout, non-tender, non- distended, no palpable masses, no rebound or guarding. No hepatosplenomegaly GENITOURINARY: MUSCULOSKELETAL: Extremities have no gross deformity, no edema, redness, or swelling. NEUROLOGIC:_a/o x 3, GCS 15, normal mentation and speech. Moves all extremities x 4 without motor or sensory deficit PSYCHIATRIC:_normal mood and affect, thought process is clear and linear Limitations: no limitations Course Vital Signs 12/05/24 12/06/24 22:08 00:20 Temperature 98.5 F Pulse Rate 83 78 Respiratory 17 18 Rate Blood Pressure 115/80 129/91 O2 Sat by Pulse 100 99 Oximetry Medical Decision Making - Medical Decision Making Was pt. sent in by a medical professional or institution (ANALI Leroy, FIELD UNDERWRITER, urgent care, hospital, or long term...) When possible be specific @ -No Did you speak to anyone other than the patient for history (EMS, parent, family, police, friend...)? What history was obtained from this source @ -No Did you review nursing and triage notes (agree or disagree)? Why? @ -I reviewed nursing and triage notes-disagree with triage note, patient denies vomiting Were old charts reviewed (outside hosp., previous admission, EMS record, old EKG, old radiological studies, urgent care reports/EKG's, long term records)? Report findings @ -Medical records reviewed Patient last presented to the emergency department on 11/23/2024, on review of that visit, patient had presented for chronic pelvic pain. On review of that note appears patient had a benign abdominal exam, labs drawn at that time showed a normal white blood cell count, unremarkable CMP. Urinalysis had 1+ protein and trace leuk esterase. Patient ultimately discharged home. Of note patient is well-known to this emergency department with multiple visits in the last year for similar symptoms. Differential Diagnosis (chest pain, altered mental status, abdominal pain women, abdominal pain men, vaginal bleeding, weakness, fever, dyspnea, syncope, headache, dizziness, GI bleed, back pain, seizure, CVA, palpatations, mental health, musculoskeletal)? @Differential Abdominal Pain Women: Appendicitis, Cholecystitis, diverticulosis, ischemic bowel, pancreatitis, hepatitis, UTI, gastroenteritis, AAA, incarcerated hernia, bowel obstruction, constipation, inflammatory bowel, hepatitis, peptic ulcer disease, splenic i nfarction, perforated viscus, vulvitis, ovarian torsion, PID, kidney stone, placenta abruption, this is not meant to be an all-inclusive list EKG interpreted by me (3pts min.). @ -As above X-rays interpreted by me (1pt min.). @ -None done CT interpreted by me (1pt min.). @ -None done U/S interpreted by me (1pt. min.). @ -None done What testing was considered but not performed or refused? (CT, X-rays, U/S, labs)? Why? Imaging of the abdomen was considered however patient states her pain is consistent with prior exacerbations of IBS, abdominal exam is benign and vital signs are stable What meds were considered but not given or refused? Why? @ -None Did you discuss the management of the patient with other professionals (professionals i.e. , PA, FIELD UNDERWRITER, lab, RT, psych nurse, social services director, lawyer probate, teacher, sea air land officer, foster care case manager)? Give summary @ -No Was smoking cessation discussed for >3mins.? @ -No Was critical care preformed (if so, how long)? @ -No Were there social determinants of health that impacted care today? How? (Homelessness, low income, unemployed, alcoholism, drug addiction, transportation, low edu. Level, literacy, decrease access to med. care, fci, rehab)? @ -No Was there de-escalation of care discussed even if they declined (Discuss DNR or withdrawal of care, Hospice)? @ -No What co-morbidities impacted this encounter? (DM, HTN, Smoking, COPD, CAD, Cancer, CVA, ARF, Chemo, Hep., AIDS, mental health diagnosis, sleep apnea, morbid obesity)? @IBS, opioid dependence Was patient admitted / discharged? Hospital course, mention meds given and route, prescriptions, significant lab abnormalities, going to OR and other pertinent info. [id number]-old female well-known to this emergency department presenting today for her IBS flare and dysuria. Abdominal exam benign. Vital signs stable. Patient be given pain control with GI cocktail and Norflex. Urinalysis will be obtained. Patient agreeable with plan of care. Urinalysis showed no signs of infection. On reassessment patient was comfortable appearing and in no acute distress. I discussed with patient plan for discharge and the importance of following up with her primary care provider regarding today's symptoms. In my medical judgment there is currently no evidence of an immediate life- threatening or surgical condition. Discharge is therefore indicated at this time. Discharge treatment instructions, follow up instructions, and appropriate emergency department return precautions were discussed with the patient and/or medical decision maker. Patient and/or medical decision maker expressed understanding of and agreed with the treatment plan, follow up instructions, and emergency department return precaution. All patient's and/or medical decision maker's questions were answered. The patient was instructed to return to the ED for any changes in symptoms, persistent symptoms, inability to obtain proper follow-up or for any further concerns. Patient received verbal and written instructions for this condition. Undiagnosed new problem with uncertain prognosis? @ -No Drug Therapy requiring intensive monitoring for toxicity (Heparin, Nitro, Insulin, Cardizem)? @ -No Were any procedures done? @ -No Diagnosis/symptom? IBS Acute, or Chronic, or Acute on Chronic? acute Uncomplicated (without systemic symptoms) or Complicated (systemic symptoms)? uncomplicated Side effects of treatment? @ -No Exacerbation, Progression, or Severe Exacerbation? @ -No Poses a threat to life or bodily function? How? (Chest pain, USA, [place], pneumonia, PE, COPD, DKA, ARF, appy, cholecystitis, CVA, Diverticulitis, Homicidal, Suicidal, threat to staff... and all critical care pts) @ -No - Lab Data Lab Results 12/05/24 Range/Units 23:28 Urine Color Light Yellow Urine Appearance Clear (Clear) Urine pH 6.0 (5.0-8.0) Ur Specific [place] 1.031 (1.001-1.035) Urine Protein Negative (Negative) Urine Glucose (UA) Negative (Negative) Urine Ketones Negative (Negative) Urine Blood Negative (Negative) Urine Nitrite Negative (Negative) Urine Bilirubin Negative (Negative) Urine Urobilinogen 2.0 (<2.0) mg/dL Ur Leukocyte Esterase Negative (Negative) Disposition Clinical Impression: IBS (irritable bowel syndrome) Disposition: HOME SELF-CARE Condition: Good Instructions (If sedation given, give patient instructions): Irritable Bowel Syndrome (ED) Additional Instructions: Every disease is a spectrum and a small chance still exists that a serious condition could develop, for this reason, please monitor yourself closely for new, changing or worsening symptoms, symptoms that persist beyond 48 hours, fever, inability to tolerate/keep down fluids or your medications, inability to follow up with outpatient providers as instructed and should you experience these symptoms or should you have any further concerns for your wellbeing please return to the ED or call 911 immediately. PLEASE call your primary care physician as soon as possible to arrange / discuss plan for followup appointment. Appointment in the next 1-3 days is strongly encouraged if possible. PLEASE let us know here before you leave if there is anything further we can do to be of any assistance. Take care and feel Better! Is patient prescribed a controlled substance at d/c from ED?: No Referrals: Christiano Gutierrez MD [Primary Care Provider] - 1-2 days
[2024-12-05] MEDS: FAMOTIDINE 20 MG TAB PO STA (23:14)
[2024-12-05] MEDS: MAG HYDROX/AL HYDROX/SIMETH 30 ML CUP PO STA (23:15)
[2024-12-05] MEDS: LIDOCAINE VISCOUS 2% 15 ML CUP PO ONE (23:15)
[2024-12-05] MEDS: ORPHENADRINE 30 MG/ML 2 ML VIAL IM STA (23:17)
[2024-12-05] MEDS: KETOROLAC 15 MG/ML 1 ML VIAL IM STA (23:17)
[2024-12-05] MEDS: HYOSCYAMINE SULFATE 0.125 MG TAB PO STA (23:19)
[2024-12-05 23:35] LABS: Appearance,Urine Clear (Clear); Bilirubin,Urine Negative (Negative); Blood,Urine Negative (Negative); Color,Urine Light Yellow; Glucose,Urine (UA) Negative (Negative); Ketones,Urine Negative (Negative); Leukocyte Esterase,Urine Negative (Negative); Nitrite,Urine Negative (Negative); Protein,Urine Negative (Negative); Specific Gravity,Urine 1.031 (1.001-1.035)
[2024-12-06 00:25] VITALS: BP 129/91; PULSE 78; RESP 18
== END 2024-12-06 00:25 | disposition home or self-care (01) ==
LOC: EC 21:47
DX: K58.9 Irritable bowel syndrome, unspecified (principal); F11.20 Opioid dependence, uncomplicated; Z88.2 Allergy status to sulfonamides; Z88.1 Allergy status to other antibiotic agents; Z88.0 Allergy status to penicillin; Z88.8 Allergy status to other drugs, medicaments and biological substances; Z91.09 Other allergy status, other than to drugs and biological substances
CPT/HCPCS: 81003; 99284; 96372 ×2; J2360; J1885

== ENCOUNTER 2024-12-08 20:11 | Emergency (ER) | payer OTHER ==
[2024-12-08 20:19] VITALS: RESP 16; TEMP 98.4
[2024-12-08] MEDS: ONDANSETRON 4 MG/2 ML VIAL IM STA (21:33)
[2024-12-08] MEDS: HYDROmorphone 1 MG/ML 1 ML SYRINGE IM STA (21:36)
[2024-12-08 21:43] LABS: Appearance,Urine Clear (Clear); Bilirubin,Urine Negative (Negative); Blood,Urine Negative (Negative); Color,Urine Light Yellow; Glucose,Urine (UA) Negative (Negative); Hyaline Casts,Urine 21 /lpf (0-2); Ketones,Urine Negative (Negative); Leukocyte Esterase,Urine Trace (Negative); Mucus,Urine Rare /hpf; Nitrite,Urine Negative (Negative); Protein,Urine Negative (Negative); RBC,Urine 1 /hpf (0-5); Specific Gravity,Urine 1.023 (1.001-1.035); Urobilinogen,Urine <2.0 mg/dL (<2.0); WBC,Urine 1 /hpf (0-5)
--- NOTE | 2024-12-08 21:53 | ED ---
General Adult HPI - General Chief complaint: Nausea/Vomiting/Diarrhea Stated complaint: Pelvic Pain,Diarrhea Time Seen by Provider: 12/08/24 21:04 Source: patient Mode of arrival: ambulatory Limitations: no limitations - History of Present Illness Initial comments: 34-year-old female well-known presents today for chronic pelvic pain and diarrhea. States that she is currently following with a pain management doctor. They have her on Percocets twice daily. She states this is not enough. She does have a follow-up appointment tomorrow. She is having an exacerbation of her pain. Also reports to multiple episodes of nonbilious, nonbloody diarrhea. No fevers. No other alleviating, precipitating or modifying factors - Related Data Home Medications Medication Instructions Recorded Confirmed Budesonide/Formoterol Fumarate 2 puff INHALATION RT-BID 09/02/24 09/24/24 [Symbicort 160-4.5 Mcg Inhaler] Escitalopram Oxalate [Lexapro] 20 mg PO HS 09/02/24 09/24/24 Gabapentin [Neurontin] 200 mg PO TID 09/02/24 09/24/24 HYDROcodone/APAP 10-325MG [[place] 1 tab PO TID PRN 09/02/24 09/24/24 10-325] Omeprazole [PriLOSEC] 40 mg PO HS 09/02/24 09/24/24 ondansetron HCL [Zofran] 8 mg PO Q12HR PRN 09/02/24 09/24/24 Ibuprofen 800 mg PO DAILY PRN 09/24/24 09/24/24 Previous Rx's Medication Instructions Recorded Prochlorperazine [Compazine] 10 mg PO Q6H #15 tab 10/01/24 Nitrofurantoin Monohyd/M-Cryst 100 mg PO Q12HR #10 cap 10/09/24 [Macrobid] Ciprofloxacin HCl [Cipro] 500 mg PO BID 7 Days #14 tab 10/18/24 Allergies Allergy/AdvReac Type Severity Reaction Status Date / Time sulfamethoxazole Allergy Severe Anaphylaxis Verified 12/08/24 20:19 [From Bactrim] trimethoprim [From Bactrim] Allergy Severe Anaphylaxis Verified 12/08/24 20:19 adhesive tape Allergy Rash/Hives Verified 12/08/24 20:19 aloe vera Allergy Rash/Hives Verified 12/08/24 20:19 amoxicillin [From Augmentin] Allergy Itching Verified 12/08/24 20:19 azithromycin Allergy Rash/Hives Verified 12/08/24 20:19 cephalexin Allergy Rash/Hives Verified 12/08/24 20:19 clavulanic acid Allergy Itching Verified 12/08/24 20:19 [From Augmentin] metronidazole [From Flagyl] Allergy Rash/Hives Verified 12/08/24 20:19 Penicillins Allergy Rash/Hives Verified 12/08/24 20:19 alprazolam [From Xanax] AdvReac MAKES Verified 12/08/24 20:19 PARANOID dicyclomine [From Bentyl] AdvReac constipatio Verified 12/08/24 20:19 n Review of Systems ROS Statement: Those systems with pertinent positive or pertinent negative responses have been documented in the HPI. ROS Other: All systems not noted in ROS Statement are negative. Past Medical History Past Medical History: Blood Disorder, GERD/Reflux Additional Past Medical History / Comment(s): Endometriosis, polycystic ovarian syndrome. IRON DEFICIENCY ANEMIA. Stomach Ulcer. Hx ovarian cyst.IBS History of Any Multi-Drug Resistant Organisms: None Reported Past Surgical History: Ablation, Appendectomy, Section, Cholecystectomy, Hernia Repair, Hysterectomy, Tubal Ligation, Uterine Ablation Additional Past Surgical History / Comment(s): Laparoscopy X2, Section X3, right ovary and right tube removed, then total hysterectomy including left ovary and left fallopian tube, cyst removed from chest, ADHESION REMOVAL FROM PAST CSECTION, vaginal/pelvic biopsy. Scar tissure removal abdomen L upper lower Past Anesthesia/Blood Transfusion Reactions: No Reported Reaction Past Psychological History: Anxiety, Depression Smoking Status: Never smoker Past Alcohol Use History: Occasional Past Drug Use History: None Reported - Past Family History Mother Family Medical History: Deep Vein Thrombosis (DVT), Hyperlipidemia Additional Family Medical History / Comment(s): Depression and anxiety. DVT to arm after surgery. General Exam Limitations: no limitations General appearance: alert, in no apparent distress Head exam: Present: atraumatic, normocephalic, normal inspection Eye exam: Present: normal appearance, PERRL, EOMI. Absent: scleral icterus, conjunctival injection, periorbital swelling ENT exam: Present: normal exam, mucous membranes moist Neck exam: Present: normal inspection. Absent: tenderness, meningismus, lymphadenopathy Respiratory exam: Present: normal lung sounds bilaterally. Absent: respiratory distress, wheezes, rales, rhonchi, stridor Cardiovascular Exam: Present: regular rate, normal rhythm, normal heart sounds. Absent: systolic murmur, diastolic murmur, rubs, gallop, clicks GI/Abdominal exam: Present: soft, normal bowel sounds. Absent: distended, tenderness, guarding, rebound, rigid Extremities exam: Present: normal inspection, full ROM, normal capillary refill. Absent: tenderness, pedal edema, joint swelling, calf tenderness Back exam: Present: normal inspection Neurological exam: Present: alert, oriented X3, CN II-XII intact Psychiatric exam: Present: normal affect, normal mood Skin exam: Present: warm, dry, intact, normal color. Absent: rash Course Vital Signs 12/08/24 20:16 Temperature 98.4 F Pulse Rate 84 Respiratory 16 Rate Blood Pressure 118/79 O2 Sat by Pulse 98 Oximetry Medical Decision Making - Medical Decision Making Was pt. sent in by a medical professional or institution (, PA, ORGANIZATIONAL DEVELOPMENT MANAGER, urgent care, hospital, or group home...) When possible be specific @ -No Did you speak to anyone other than the patient for history (EMS, parent, family, police, friend...)? What history was obtained from this source @ -No Did you review nursing and triage notes (agree or disagree)? Why? @ -I reviewed and agree with nursing and triage notes Were old charts reviewed (outside hosp., previous admission, EMS record, old EKG, old radiological studies, urgent care reports/EKG's, group home records)? Report findings @ -No old charts were reviewed Differential Diagnosis (chest pain, altered mental status, abdominal pain women, abdominal pain men, vaginal bleeding, weakness, fever, dyspnea, syncope, he adache, dizziness, GI bleed, back pain, seizure, CVA, palpatations, mental health, musculoskeletal)? @ -Differential Abdominal Pain Women: Appendicitis, Cholecystitis, diverticulosis, ischemic bowel, pancreatitis, hepatitis, UTI, gastroenteritis, AAA, incarcerated hernia, bowel obstruction, constipation, inflammatory bowel, hepatitis, peptic ulcer disease, splenic infarction, perforated viscus, vulvitis, ovarian torsion, PID, kidney stone, placenta abruption, this is not meant to be an all-inclusive list EKG interpreted by me (3pts min.). @ -Not done X-rays interpreted by me (1pt min.). @ -None done CT interpreted by me (1pt min.). @ -None done U/S interpreted by me (1pt. min.). @ -None done What testing was considered but not performed or refused? (CT, X-rays, U/S, labs)? Why? @ -None What meds were considered but not given or refused? Why? @ -None Did you discuss the management of the patient with other professionals (professionals i.e. , PA, ORGANIZATIONAL DEVELOPMENT MANAGER, lab, RT, psych nurse, social service manager, er nurse, teacher, combatant diver officer, trimming caser)? Give summary @ -No Was smoking cessation discussed for >3mins.? @ -No Was critical care preformed (if so, how long)? @ -No Were there social determinants of health that impacted care today? How? (Homelessness, low income, unemployed, alcoholism, drug addiction, transportation, low edu. Level, literacy, decrease access to med. care, custodial, rehab)? @ -No Was there de-escalation of care discussed even if they declined (Discuss DNR or withdrawal of care, Hospice)? DNR status @ -No What co-morbidities impacted this encounter? (DM, HTN, Smoking, COPD, CAD, Cancer, CVA, ARF, Chemo, Hep., AIDS, mental health diagnosis, sleep apnea, morbid obesity)? @ -Chronic pelvic pain Was patient admitted / discharged? Hospital course, mention meds given and route, prescriptions, significant lab abnormalities, going to OR and other pertinent info. @ -Upon arrival patient seen and evaluated in bed 28. Physical exam was performed. Oral Zofran and IM Dilaudid ordered for the patient. Urinalysis does not demonstrate any significant dehydration. patient will be discharged at this time to follow-up with her. pain management doctor tomorrow Undiagnosed new problem with uncertain prognosis? @ -No Drug Therapy requiring intensive monitoring for toxicity (Heparin, Nitro, Insulin, Cardizem)? @ -No Were any procedures done? @ -No Diagnosis/symptom? @ -Acute exacerbation of chronic abdominal pain Acute, or Chronic, or Acute on Chronic? @ -Acute on chronic Uncomplicated (without systemic symptoms) or Complicated (systemic symptoms)? @ -Uncomplicated Side effects of treatment? @ -No Exacerbation, Progression, or Severe Exacerbation? @ -No Poses a threat to life or bodily function? How? (Chest pain, [place], ND, pneumonia, PE, COPD, DKA, ARF, appy, cholecystitis, CVA, Diverticulitis, Homicidal, Suicidal, threat to staff... and all critical care pts) @ -No - Lab Data Lab Results 12/08/24 Range/Units 21:36 Urine Color Light Yellow Urine Appearance Clear (Clear) Urine pH 6.0 (5.0-8.0) Ur Specific [place] 1.023 (1.001-1.035) Urine Protein Negative (Negative) Urine Glucose (UA) Negative (Negative) Urine Ketones Negative (Negative) Urine Blood Negative (Negative) Urine Nitrite Negative (Negative) Urine Bilirubin Negative (Negative) Urine Urobilinogen <2.0 (<2.0) mg/dL Ur Leukocyte Esterase Trace H (Negative) Urine RBC 1 (0-5) /hpf Urine WBC 1 (0-5) /hpf Hyaline Casts 21 H (0-2) /lpf Urine Mucus Rare H (None) /hpf Disposition Clinical Impression: Chronic pain, Diarrhea Disposition: HOME SELF-CARE Condition: Stable Instructions (If sedation given, give patient instructions): Chronic Pain (ED) Additional Instructions: Please follow up with your pain management doctor for further pain meds Is patient prescribed a controlled substance at d/c from ED?: No Referrals: Christiano Gutierrez MD [Primary Care Provider] - 1-2 days Time of Disposition: 21:53
[2024-12-08] MEDS: HYDROmorphone 0.5 MG/0.5 ML SYRINGE IM STA (22:21)
[2024-12-08 22:33] VITALS: BP 120/71; PULSE 79
== END 2024-12-08 22:32 | disposition home or self-care (01) ==
LOC: EC 20:11
DX: G89.29 Other chronic pain (principal); R19.7 Diarrhea, unspecified; R10.9 Unspecified abdominal pain; Z88.0 Allergy status to penicillin; Z88.2 Allergy status to sulfonamides; Z88.1 Allergy status to other antibiotic agents; Z88.8 Allergy status to other drugs, medicaments and biological substances
CPT/HCPCS: 81001; 99284; 96372; J2405; J1171 ×2

== ENCOUNTER 2024-12-11 20:39 | Emergency (ER) | payer OTHER ==
[2024-12-11] MEDS: HYDROmorphone 1 MG/ML 1 ML SYRINGE IVP STA (22:04)
[2024-12-11] MEDS: SODIUM CHLORIDE 0.9% 1,000 ML IV ONE (22:04)
[2024-12-11] MEDS: ONDANSETRON 4 MG/2 ML VIAL IVP STA (22:04)
--- NOTE | 2024-12-11 22:18 | XR ---
EXAMINATION TYPE: XR KUB DATE OF EXAM: 12/11/2024 10:14 PM CLINICAL INDICATION: Female, 34 years old with history of abdominal pain, pain TECHNIQUE: 2 upright views of the abdomen. COMPARISON: CT abdomen and pelvis October 09, 2024. FINDINGS: Gas is seen in nondistended stomach. Scattered gas is seen in non-distended small bowel loo ps. Gas and fecal material is seen in non-distended colon and rectum. Cholecystectomy clips are seen. Metallic clip left pelvis redemonstrated. No free air. Lung bases are clear. Osseous structures are intact. IMPRESSION: Overall nonobstructive bowel gas pattern. [facility], , 12/11/2024 10:16 PM
[2024-12-11 22:25] LABS: Basophils # (A) 0.01 10*3/uL (0.00-0.10); Basophils % (A) 0.2 %; Eosinophils # (A) 0.01 10*3/uL (0.04-0.35); Eosinophils % (A) 0.2 %; HCT 33.7 % (37.2-46.3); HGB 11.5 g/dL (12.0-15.0); Lymphocytes # (A) 1.76 10*3/uL (0.90-5.00); Lymphocytes % (A) 40.7 %; MCH 31.8 pg (27.0-32.0); MCHC 34.1 g/dL (32.0-37.0); MCV 93.1 fL (80.0-97.0); Mean Platelet Volume 9.9 fL (9.5-12.2); Monocytes # (A) 0.26 10*3/uL (0.20-1.00); Neutrophils # (A) 2.27 10*3/uL (1.80-7.70); Neutrophils % (A) 52.7 %; Platelet Count 220 10*3/uL (140-440); RBC 3.62 10*6/uL (4.10-5.20); RDW 13.1 % (11.5-14.5); WBC 4.32 10*3/uL (4.50-10.00)
[2024-12-11 22:36] LABS: Appearance,Urine Clear (Clear); Bacteria,Urine Rare /hpf; Bilirubin,Urine Negative (Negative); Blood,Urine Negative (Negative); Calcium Oxalate Crystals,Urine Occasional /hpf; Color,Urine Yellow; Glucose,Urine (UA) Negative (Negative); Hyaline Casts,Urine 7 /lpf (0-2); Ketones,Urine Trace (Negative); Leukocyte Esterase,Urine Small (Negative); Mucus,Urine Moderate /hpf; Nitrite,Urine Negative (Negative); Protein,Urine 1+ (Negative); RBC,Urine 10 /hpf (0-5); Specific Gravity,Urine 1.039 (1.001-1.035); Squamous Epithelial Cell,Urine <1 /hpf (0-4); WBC,Urine 6 /hpf (0-5)
[2024-12-11 22:37] LABS: ALT 18 U/L (4-34); AST 32 U/L (14-36); African American GFR (CKD) >90 (>60 ml/min/1.73 sqM); Albumin 4.3 g/dL (3.5-5.0); Alkaline Phosphatase 90 U/L (38-126); Anion Gap 11 mmol/L; Blood Urea Nitrogen 24 mg/dL (7-17); Calcium 10.1 mg/dL (8.4-10.2); Carbon Dioxide 26 mmol/L (22-30); Chloride 102 mmol/L (98-107); Glucose 85 mg/dL (74-99); Non-African American GFR(CKD) 87 (>60 ml/min/1.73 sqM); Potassium 4.1 mmol/L (3.5-5.1); Sodium 139 mmol/L (137-145); Total Bilirubin 0.5 mg/dL (0.2-1.3); Total Protein 7.2 g/dL (6.3-8.2)
--- NOTE | 2024-12-11 22:52 | ED ---
Abdominal Pain HPI - General Chief Complaint: Abdominal Pain Stated Complaint: Abd pain Time Seen by Provider: 12/11/24 20:50 Source: patient Mode of arrival: wheelchair Limitations: no limitations - History of Present Illness Initial Comments: 34-year-old female well-known to the emergency department for her chronic abdominal pain presents today reporting lower abdominal pain. Denies any new or different symptoms. She is currently under the care of a pain management doctor but does not feel as if their medications are providing her enough relief. She denies any fevers. No changes in her bowel or bladder habits. She does admit to chronic diarrhea and feels as if she is dehydrated because of her diarrhea. Denies black or bloody stools. No other alleviating, precipitating or modifying factors - Related Data Home Medications Medication Instructions Recorded Confirmed Budesonide/Formoterol Fumarate 2 puff INHALATION RT-BID 09/02/24 09/24/24 [Symbicort 160-4.5 Mcg Inhaler] Escitalopram Oxalate [Lexapro] 20 mg PO HS 09/02/24 09/24/24 Gabapentin [Neurontin] 200 mg PO TID 09/02/24 09/24/24 HYDROcodone/APAP 10-325MG [[place] 1 tab PO TID PRN 09/02/24 09/24/24 10-325] Omeprazole [PriLOSEC] 40 mg PO HS 09/02/24 09/24/24 ondansetron HCL [Zofran] 8 mg PO Q12HR PRN 09/02/24 09/24/24 Ibuprofen 800 mg PO DAILY PRN 09/24/24 09/24/24 Previous Rx's Medication Instructions Recorded Prochlorperazine [Compazine] 10 mg PO Q6H #15 tab 10/01/24 Nitrofurantoin Monohyd/M-Cryst 100 mg PO Q12HR #10 cap 10/09/24 [Macrobid] Ciprofloxacin HCl [Cipro] 500 mg PO BID 7 Days #14 tab 10/18/24 Allergies Allergy/AdvReac Type Severity Reaction Status Date / Time sulfamethoxazole Allergy Severe Anaphylaxis Verified 01/06/25 20:33 [From Bactrim] trimethoprim [From Bactrim] Allergy Severe Anaphylaxis Verified 01/06/25 20:33 adhesive tape Allergy Rash/Hives Verified 01/06/25 20:33 aloe vera Allergy Rash/Hives Verified 01/06/25 20:33 amoxicillin [From Augmentin] Allergy Itching Verified 01/06/25 20:33 azithromycin Allergy Rash/Hives Verified 01/06/25 20:33 cephalexin Allergy Rash/Hives Verified 01/06/25 20:33 clavulanic acid Allergy Itching Verified 01/06/25 20:33 [From Augmentin] metronidazole [From Flagyl] Allergy Rash/Hives Verified 01/06/25 20:33 Penicillins Allergy Rash/Hives Verified 01/06/25 20:33 alprazolam [From Xanax] AdvReac MAKES Verified 01/06/25 20:33 PARANOID dicyclomine [From Bentyl] AdvReac constipatio Verified 01/06/25 20:33 n Review of Systems ROS Statement: Those systems with pertinent positive or pertinent negative responses have been documented in the HPI. ROS Other: All systems not noted in ROS Statement are negative. Past Medical History Past Medical History: Blood Disorder, GERD/Reflux Additional Past Medical History / Comment(s): Endometriosis, polycystic ovarian syndrome. IRON DEFICIENCY ANEMIA. Stomach Ulcer. Hx ovarian cyst.IBS History of Any Multi-Drug Resistant Organisms: None Reported Past Surgical History: Ablation, Appendectomy, Section, Cholecystectomy, Hernia Repair, Hysterectomy, Tubal Ligation, Uterine Ablation Additional Past Surgical History / Comment(s): Laparoscopy X2, Section X3, right ovary and right tube removed, then total hysterectomy including left o vary and left fallopian tube, cyst removed from chest, ADHESION REMOVAL FROM PAST CSECTION, vaginal/pelvic biopsy. Scar tissure removal abdomen L upper lower Past Anesthesia/Blood Transfusion Reactions: No Reported Reaction Past Psychological History: Anxiety, Depression Smoking Status: Never smoker Past Alcohol Use History: Occasional Past Drug Use History: None Reported - Past Family History Mother Family Medical History: Deep Vein Thrombosis (DVT), Hyperlipidemia Additional Family Medical History / Comment(s): Depression and anxiety. DVT to arm after surgery. General Exam Limitations: no limitations General appearance: alert, in no apparent distress Head exam: Present: atraumatic, normocephalic, normal inspection Eye exam: Present: normal appearance, PERRL, EOMI. Absent: scleral icterus, conjunctival injection, periorbital swelling ENT exam: Present: normal exam, mucous membranes moist Neck exam: Present: normal inspection. Absent: tenderness, meningismus, lymphadenopathy Respiratory exam: Present: normal lung sounds bilaterally. Absent: respiratory distress, wheezes, rales, rhonchi, stridor Cardiovascular Exam: Present: regular rate, normal rhythm, normal heart sounds. Absent: systolic murmur, diastolic murmur, rubs, gallop, clicks GI/Abdominal exam: Present: soft, tenderness (Suprapubic), normal bowel sounds. Absent: distended, guarding, rebound, rigid Extremities exam: Present: normal inspection, full ROM, normal capillary refill. Absent: tenderness, pedal edema, joint swelling, calf tenderness Back exam: Present: normal inspection Neurological exam: Present: alert, oriented X3, CN II-XII intact Psychiatric exam: Present: normal affect, normal mood Skin exam: Present: warm, dry, intact, normal color. Absent: rash Course Vital Signs 12/11/24 12/11/24 20:46 23:09 Temperature 98.3 F 98.6 F Pulse Rate 97 74 Respiratory 18 17 Rate Blood Pressure 113/77 113/71 O2 Sat by Pulse 98 97 Oximetry Medical Decision Making - Medical Decision Making Was pt. sent in by a medical professional or institution (, PA, CONTACT ASSEMBLER, urgent care, hospital, or care home...) When possible be specific @ -No Did you speak to anyone other than the patient for history (EMS, parent, family, police, friend...)? What history was obtained from this source @ -No Did you review nursing and triage notes (agree or disagree)? Why? @ -I reviewed and agree with nursing and triage notes Were old charts reviewed (outside hosp., previous admission, EMS record, old EKG, old radiological studies, urgent care reports/EKG's, care home records)? Report findings @ -No old charts were reviewed Differential Diagnosis (chest pain, altered mental status, abdominal pain women, abdominal pain men, vaginal bleeding, weakness, fever, dyspnea, syncope, headache, dizziness, GI bleed, back pain, seizure, CVA, palpatations, mental health, musculoskeletal)? @ -Differential Abdominal Pain Women: Appendicitis, Cholecystitis, diverticulosis, ischemic bowel, pancreatitis, hepatitis, UTI, gastroenteritis, AAA, incarcerated hernia, bowel obstruction, constipation, inflammatory bowel, hepatitis, peptic ulcer disease, splenic infarction, perforated viscus, vulvitis, ovarian torsion, PID, kidney stone, placenta abruption, this is not meant to be an all-inclusive list EKG interpreted by me (3pts min.). @ -Not done X-rays interpreted by me (1pt min.). @ -None done CT interpreted by me (1pt min.). @ -None done U/S interpreted by me (1pt. min.). @ -None done What testing was considered but not performed or refused? (CT, X-rays, U/S, labs)? Why? @ -None What meds were considered but not given or refused? Why? @ -None Did you discuss the management of the patient with other professionals (professionals i.e. , PA, CONTACT ASSEMBLER, lab, RT, psych nurse, long term care social worker, repeater chief, teacher, customs officer, special education case manager)? Give summary @ -No Was smoking cessation discussed for >3mins.? @ -No Was critical care preformed (if so, how long)? @ -No Were there social determinants of health that impacted care today? How? (Homelessness, low income, unemployed, alcoholism, drug addiction, transportation, low edu. Level, literacy, decrease access to med. care, detention, rehab)? @ -No Was there de-escalation of care discussed even if they declined (Discuss DNR or withdrawal of care, Hospice)? DNR status @ -No What co-morbidities impacted this encounter? (DM, HTN, Smoking, COPD, CAD, Cancer, CVA, ARF, Chemo, Hep., AIDS, mental health diagnosis, sleep apnea, morbid obesity)? @ -Chronic abdominal pain Was patient admitted / discharged? Hospital course, mention meds given and route, prescriptions, significant lab abnormalities, going to OR and other pertinent info. @ -Upon arrival patient seen and evaluated in room 21. Thorough history and physical exam was performed. IV access was established. Laboratory studies are conducted. Patient does provide urine sample. Patient was administered a dose of Dilaudid and Zofran as well as IV fluids. I did discuss results with the patient. She repetitively asked for more pain medications however I refused and states that she needs to follow-up with her pain management doctor for pain control as this is a chronic issue. Undiagnosed new problem with uncertain prognosis? @ -No Drug Therapy requiring intensive monitoring for toxicity (Heparin, Nitro, Insulin, Cardizem)? @ -No Were any procedures done? @ -No Diagnosis/symptom? @ -Chronic abdominal pain Acute, or Chronic, or Acute on Chronic? @ -Chronic Uncomplicated (without systemic symptoms) or Complicated (systemic symptoms)? @ -Complicated Side effects of treatment? @ -No Exacerbation, Progression, or Severe Exacerbation? @ -No Poses a threat to life or bodily function? How? (Chest pain, [place], [place], pneumonia, PE, COPD, DKA, ARF, appy, cholecystitis, CVA, Diverticulitis, Homicidal, Suicidal, threat to staff... and all critical care pts) @ -No - Lab Data Result diagrams: 12/11/24 22:06 12/11/24 22:06 Lab Results 12/11/24 12/11/24 12/11/24 Range/Units 22:06 22:06 22:06 WBC 4.32 L (4.50-10.00) 10*3/uL RBC 3.62 L (4.10-5.20) 10*6/uL Hgb 11.5 L (12.0-15.0) g/dL Hct 33.7 L (37.2-46.3) % MCV 93.1 (80.0-97.0) fL MCH 31.8 (27.0-32.0) pg MCHC 34.1 (32.0-37.0) g/dL Plt Count 220 (140-440) 10*3/uL MPV 9.9 (9.5-12.2) fL Immature Gran % (Auto) 0.2 % Neutrophils % 52.7 % Lymphocytes % 40.7 % Monocytes % 6.0 % Eosinophils % 0.2 % Basophils % 0.2 % Immature Gran # 0.01 (0.00-0.04) 10*3/uL Neutrophils # 2.27 (1.80-7.70) 10*3/uL Lymphocytes # 1.76 (0.90-5.00) 10*3/uL Monocytes # 0.26 (0.20-1.00) 10*3/uL Eosinophils # 0.01 L (0.04-0.35) 10*3/uL Basophils # 0.01 (0.00-0.10) 10*3/uL Sodium 139 (137-145) mmol/L Potassium 4.1 (3.5-5.1) mmol/L Chloride 102 (98-107) mmol/L Carbon Dioxide 26 (22-30) mmol/L Anion Gap 11 mmol/L BUN 24 H (7-17) mg/dL Creatinine 0.88 (0.52-1.04) mg/dL Est GFR (CKD-EPI)AfAm >90 (>60 ml/min/1.73 sqM) Est GFR (CKD-EPI)NonAf 87 (>60 ml/min/1.73 sqM) Glucose 85 (74-99) mg/dL Calcium 10.1 (8.4-10.2) mg/dL Total Bilirubin 0.5 (0.2-1.3) mg/dL AST 32 (14-36) U/L ALT 18 (4-34) U/L Alkaline Phosphatase 90 (38-126) U/L Total Protein 7.2 (6.3-8.2) g/dL Albumin 4.3 (3.5-5.0) g/dL Urine Color Yellow Urine Appearance Clear (Clear) Urine pH 6.0 (5.0-8.0) Ur Specific [place] 1.039 H (1.001-1.035) Urine Protein 1+ H (Negative) Urine Glucose (UA) Negative (Negative) Urine Ketones Trace H (Negative) Urine Blood Negative (Negative) Urine Nitrite Negative (Negative) Urine Bilirubin Negative (Negative) Urine Urobilinogen 4.0 (<2.0) mg/dL Ur Leukocyte Esterase Small H (Negative) Urine RBC 10 H (0-5) /hpf Urine WBC 6 H (0-5) /hpf Ur Squamous Epith Cells <1 (0-4) /hpf Calcium Oxalate Crystal Occasional H (None) /hpf Urine Bacteria Rare H (None) /hpf Hyaline Casts 7 H (0-2) /lpf Urine Mucus Moderate H (None) /hpf Disposition Clinical Impression: Abdominal pain Disposition: HOME SELF-CARE Condition: Stable Instructions (If sedation given, give patient instructions): Abdominal Pain (ED) Additional Instructions: You need to see your pain management doctor for your pain. Is patient prescribed a controlled substance at d/c from ED?: No Referrals: Christiano Gutierrez MD [Primary Care Provider] - 1-2 days Time of Disposition: 22:52
[2024-12-11] MEDS: HYDROmorphone 0.5 MG/0.5 ML SYRINGE IVP STA (22:55)
[2024-12-11 23:11] VITALS: BP 113/71; PULSE 74; RESP 17; TEMP 98.6
== END 2024-12-11 23:10 | disposition home or self-care (01) ==
LOC: EC 20:39
DX: R10.30 Lower abdominal pain, unspecified (principal); G89.29 Other chronic pain; Z88.0 Allergy status to penicillin; Z88.1 Allergy status to other antibiotic agents; Z88.2 Allergy status to sulfonamides; Z91.09 Other allergy status, other than to drugs and biological substances; Z91.018 Allergy to other foods; Z88.8 Allergy status to other drugs, medicaments and biological substances
CPT/HCPCS: 36415; 80053; 85025; 81001; 74018; 99284; 96374; 96375; 96376; 96361; J2405; J1171 ×2

== ENCOUNTER 2024-12-18 19:37 | Emergency (ER) | payer OTHER ==
[2024-12-18 19:48] VITALS: RESP 18
--- NOTE | 2024-12-18 21:38 | ED ---
General Adult HPI - General Chief complaint: Abdominal Pain Stated complaint: Pelvic Pain,Vomiting Time Seen by Provider: 12/18/24 21:10 Source: patient, RN notes reviewed Mode of arrival: ambulatory Limitations: no limitations - History of Present Illness Initial comments: 34-year-old female presents to the emergency department for evaluation of pelvic pain. Patient has a history of chronic pain due to "nerves firing". Patient has had multiple abdominal surgeries with total hysterectomy. Patient states that pain is similar to what she typically experiences. She states that she is unable to manage the pain with her at home medications. Denies any recent fever, chills. Does admit to nausea without vomiting. - Related Data Home Medications Medication Instructions Recorded Confirmed Budesonide/Formoterol Fumarate 2 puff INHALATION RT-BID 09/02/24 09/24/24 [Symbicort 160-4.5 Mcg Inhaler] Escitalopram Oxalate [Lexapro] 20 mg PO HS 09/02/24 09/24/24 Gabapentin [Neurontin] 200 mg PO TID 09/02/24 09/24/24 HYDROcodone/APAP 10-325MG [[place] 1 tab PO TID PRN 09/02/24 09/24/24 10-325] Omeprazole [PriLOSEC] 40 mg PO HS 09/02/24 09/24/24 ondansetron HCL [Zofran] 8 mg PO Q12HR PRN 09/02/24 09/24/24 Ibuprofen 800 mg PO DAILY PRN 09/24/24 09/24/24 Previous Rx's Medication Instructions Recorded Prochlorperazine [Compazine] 10 mg PO Q6H #15 tab 10/01/24 Nitrofurantoin Monohyd/M-Cryst 100 mg PO Q12HR #10 cap 10/09/24 [Macrobid] Ciprofloxacin HCl [Cipro] 500 mg PO BID 7 Days #14 tab 10/18/24 Allergies Allergy/AdvReac Type Severity Reaction Status Date / Time sulfamethoxazole Allergy Severe Anaphylaxis Verified 12/18/24 19:48 [From Bactrim] trimethoprim [From Bactrim] Allergy Severe Anaphylaxis Verified 12/18/24 19:48 adhesive tape Allergy Rash/Hives Verified 12/18/24 19:48 aloe vera Allergy Rash/Hives Verified 12/18/24 19:48 amoxicillin [From Augmentin] Allergy Itching Verified 12/18/24 19:48 azithromycin Allergy Rash/Hives Verified 12/18/24 19:48 cephalexin Allergy Rash/Hives Verified 12/18/24 19:48 clavulanic acid Allergy Itching Verified 12/18/24 19:48 [From Augmentin] metronidazole [From Flagyl] Allergy Rash/Hives Verified 12/18/24 19:48 Penicillins Allergy Rash/Hives Verified 12/18/24 19:48 alprazolam [From Xanax] AdvReac MAKES Verified 12/18/24 19:48 PARANOID dicyclomine [From Bentyl] AdvReac constipatio Verified 12/18/24 19:48 n Review of Systems ROS Statement: Those systems with pertinent positive or pertinent negative responses have been documented in the HPI. ROS Other: All systems not noted in ROS Statement are negative. Past Medical History Past Medical History: Blood Disorder, GERD/Reflux Additional Past Medical History / Comment(s): Endometriosis, polycystic ovarian syndrome. IRON DEFICIENCY ANEMIA. Stomach Ulcer. Hx ovarian cyst.IBS History of Any Multi-Drug Resistant Organisms: None Reported Past Surgical History: Ablation, Appendectomy, Section, Cholecystectomy, Hernia Repair, Hysterectomy, Tubal Ligation, Uterine Ablation Additional Past Surgical History / Comment(s): Laparoscopy X2, Section X3, right ovary and right tube removed, then total hysterectomy including left ovary and left fallopian tube, cyst removed from chest, ADHESION REMOVAL FROM PAST CSECTION, vaginal/pelvic biopsy. Scar tissure removal abdomen L upper lower Past Anesthesia/Blood Transfusion Reactions: No Reported Reaction Past Psychological History: Anxiety, Depression Smoking Status: Never smoker Past Alcohol Use History: Occasional Past Drug Use History: None Reported - Past Family History Mother Family Medical History: Deep Vein Thrombosis (DVT), Hyperlipidemia Additional Family Medical History / Comment(s): Depression and anxiety. DVT to arm after surgery. General Exam Limitations: no limitations General appearance: alert, in no apparent distress Head exam: Present: atraumatic, normocephalic, normal inspection Eye exam: Present: normal appearance, PERRL, EOMI. Absent: scleral icterus, conjunctival injection, periorbital swelling ENT exam: Present: normal exam, mucous membranes moist Respiratory exam: Present: normal lung sounds bilaterally. Absent: respiratory distress, wheezes, rales, rhonchi, stridor Cardiovascular Exam: Present: regular rate, normal rhythm, normal heart sounds. Absent: systolic murmur, diastolic murmur, rubs, gallop, clicks GI/Abdominal exam: Present: soft, normal bowel sounds. Absent: distended, tenderness, guarding, rebound, rigid Extremities exam: Present: normal inspection, full ROM, normal capillary refill. Absent: tenderness, pedal edema, joint swelling, calf tenderness Neurological exam: Present: alert, oriented X3 Psychiatric exam: Present: normal affect, normal mood Skin exam: Present: warm, dry, intact, normal color. Absent: rash Course Vital Signs 12/18/24 12/18/24 19:46 22:26 Temperature 98.4 F 98.1 F Pulse Rate 90 76 Respiratory 18 18 Rate Blood Pressure 119/85 124/83 O2 Sat by Pulse 95 99 Oximetry Medical Decision Making - Medical Decision Making Was pt. sent in by a medical professional or institution (, PA, PRODUCTION MAINTENANCE TECHNICIAN, urgent care, hospital, or senior living...) When possible be specific @ -No Did you speak to anyone other than the patient for history (EMS, parent, family, police, friend...)? What history was obtained from this source @ -No Did you review nursing and triage notes (agree or disagree)? Why? @ -I reviewed and agree with nursing and triage notes Were old charts reviewed (outside hosp., previous admission, EMS record, old EKG, old radiological studies, urgent care reports/EKG's, senior living records)? Report findings @ -No old charts were reviewed Differential Diagnosis (chest pain, altered mental status, abdominal pain women, abdominal pain men, vaginal bleeding, weakness, fever, dyspnea, syncope, headache, dizziness, GI bleed, back pain, seizure, CVA, palpatations, mental health, musculoskeletal)? @ -Differential Abdominal Pain Women: Appendicitis, Cholecystitis, diverticulosis, ischemic bowel, pancreatitis, hepatitis, UTI, gastroenteritis, AAA, incarcerated hernia, bowel obstruction, constipation, inflammatory bowel, hepatitis, peptic ulcer disease, splenic infarction, perforated viscus, vulvitis, ovarian torsion, PID, kidney stone, placenta abruption, this is not meant to be an all-inclusive list EKG interpreted by me (3pts min.). @ -None X-rays interpreted by me (1pt min.). @ -None done CT interpreted by me (1pt min.). @ -None done U/S interpreted by me (1pt. min.). @ -None done What testing was considered but not performed or refused? (CT, X-rays, U/S, labs)? Why? @ -None What meds were considered but not given or refused? Why? @ -None Did you discuss the management of the patient with other professionals (professionals i.e. Dr., PA, PRODUCTION MAINTENANCE TECHNICIAN, lab, RT, psych nurse, social service worker, switchman, teacher, operational intelligence officer, case monitor)? Give summary @ -No Was smoking cessation discussed for >3mins.? @ -No Was critical care preformed (if so, how long)? @ -No Were there social determinants of health that impacted care today? How? (Homelessness, low income, unemployed, alcoholism, drug addiction, transportation, low edu. Level, literacy, decrease access to med. care, [facility], rehab)? @ -No Was there de-escalation of care discussed even if they declined (Discuss DNR or withdrawal of care, Hospice)? DNR status @ -No What co-morbidities impacted this encounter? (DM, HTN, Smoking, COPD, CAD, Cancer, CVA, ARF, Chemo, Hep., AIDS, mental health diagnosis, sleep apnea, morbid obesity)? @ -None Was patient admitted / discharged? Hospital course, mention meds given and route, prescriptions, significant lab abnormalities, going to OR and other pertinent info. @ -Discharge. Patient presented to the emergency department for evaluation of abdominal/pelvic pain. This is chronic in nature. Patient was provided medication for pain control in the emergency department. She will be discharged home. Advise follow-up with her primary care provider and pain management. She is understanding agreeable plan. Patient stable at time of discharge. Case discussed with Dr. Carpio. Undiagnosed new problem with uncertain prognosis? @ -No Drug Therapy requiring intensive monitoring for toxicity (Heparin, Nitro, Insulin, Cardizem)? @ -No Were any procedures done? @ -No Diagnosis/symptom? @ -Pelvic pain Acute, or Chronic, or Acute on Chronic? @ -Chronic Uncomplicated (without systemic symptoms) or Complicated (systemic symptoms)? @ -Uncomplicated Side effects of treatment? @ -No Exacerbation, Progression, or Severe Exacerbation? @ -No Poses a threat to life or bodily function? How? (Chest pain, [place], [place], pneumonia, PE, COPD, DKA, ARF, appy, cholecystitis, CVA, Diverticulitis, Homicidal, Suicidal, threat to staff... and all critical care pts) @ -No Disposition Clinical Impression: Chronic abdominal pain Disposition: HOME SELF-CARE Condition: Stable Instructions (If sedation given, give patient instructions): Abdominal Pain (ED) Additional Instructions: Please follow up with your doctor. Return to the emergency department for new or worsening symptoms. Is patient prescribed a controlled substance at d/c from ED?: No Referrals: Christiano Gutierrez MD [Primary Care Provider] - 1-2 days
[2024-12-18] MEDS: METOCLOPRAMIDE 5 MG/ML 2 ML VIAL IM STA (21:59)
[2024-12-18] MEDS: KETOROLAC 15 MG/ML 1 ML VIAL IM STA (21:59)
[2024-12-18] MEDS: ORPHENADRINE 30 MG/ML 2 ML VIAL IM STA (22:00)
[2024-12-18] MEDS: HYDROmorphone 0.5 MG/0.5 ML SYRINGE IM STA (22:22)
[2024-12-18 22:28] VITALS: BP 124/83; PULSE 76; TEMP 98.1
== END 2024-12-18 22:28 | disposition home or self-care (01) ==
LOC: EC 19:37
DX: R10.9 Unspecified abdominal pain (principal); G89.29 Other chronic pain; Z90.710 Acquired absence of both cervix and uterus; Z88.0 Allergy status to penicillin; Z88.1 Allergy status to other antibiotic agents; Z88.2 Allergy status to sulfonamides; Z91.09 Other allergy status, other than to drugs and biological substances; Z91.018 Allergy to other foods; Z88.8 Allergy status to other drugs, medicaments and biological substances
CPT/HCPCS: 99283; 96372; J2360; J2765; J1885; J1171

== ENCOUNTER 2025-01-06 20:31 | Emergency (ER) | payer OTHER ==
[2025-01-06 20:33] VITALS: BP 134/89; PULSE 94; RESP 16; TEMP 98
--- NOTE | 2025-01-06 20:44 | ED ---
Abdominal Pain HPI - General Chief Complaint: Abdominal Pain Stated Complaint: Abdominal pain, Diarrhea Time Seen by Provider: 01/06/25 20:43 Source: patient, RN notes reviewed, old records reviewed Mode of arrival: ambulatory Limitations: no limitations - History of Present Illness Initial Comments: 34-year-old female presented to ER for evaluation of chronic abdominal pain and diarrhea. Patient with a past medical history significant of IBS, endometriosis, GERD, PCOS. Patient has an extensive abdominal surgery history including cholecystectomy, hernia repair, hysterectomy, salpingo-oophorectomy, appendectomy. Patient states for the past week she has been having an IBS flare. She has tried prescribed medications including gabapentin, Norflex, naproxen and Percocet without relief of symptoms. Patient also is reporting diarrhea. Denies any hematochezia or melena. She states she is not taking her Percocet as she "does not want to waste them" as everything is going through her. She denies any nausea, vomiting or fevers. No urinary complaints. Patient reports pain is typical for IBS flare, no new features. She is schedule d to follow-up with pain management in February. Patient denies any chest pain, shortness of breath, dizziness or lightheadedness or other complaints - Related Data Home Medications Medication Instructions Recorded Confirmed Budesonide/Formoterol Fumarate 2 puff INHALATION RT-BID 09/02/24 09/24/24 [Symbicort 160-4.5 Mcg Inhaler] Escitalopram Oxalate [Lexapro] 20 mg PO HS 09/02/24 09/24/24 Gabapentin [Neurontin] 200 mg PO TID 09/02/24 09/24/24 HYDROcodone/APAP 10-325MG [[place] 1 tab PO TID PRN 09/02/24 09/24/24 10-325] Omeprazole [PriLOSEC] 40 mg PO HS 09/02/24 09/24/24 ondansetron HCL [Zofran] 8 mg PO Q12HR PRN 09/02/24 09/24/24 Ibuprofen 800 mg PO DAILY PRN 09/24/24 09/24/24 Previous Rx's Medication Instructions Recorded Prochlorperazine [Compazine] 10 mg PO Q6H #15 tab 10/01/24 Nitrofurantoin Monohyd/M-Cryst 100 mg PO Q12HR #10 cap 10/09/24 [Macrobid] Ciprofloxacin HCl [Cipro] 500 mg PO BID 7 Days #14 tab 10/18/24 Allergies Allergy/AdvReac Type Severity Reaction Status Date / Time sulfamethoxazole Allergy Severe Anaphylaxis Verified 01/06/25 20:33 [From Bactrim] trimethoprim [From Bactrim] Allergy Severe Anaphylaxis Verified 01/06/25 20:33 adhesive tape Allergy Rash/Hives Verified 01/06/25 20:33 aloe vera Allergy Rash/Hives Verified 01/06/25 20:33 amoxicillin [From Augmentin] Allergy Itching Verified 01/06/25 20:33 azithromycin Allergy Rash/Hives Verified 01/06/25 20:33 cephalexin Allergy Rash/Hives Verified 01/06/25 20:33 clavulanic acid Allergy Itching Verified 01/06/25 20:33 [From Augmentin] metronidazole [From Flagyl] Allergy Rash/Hives Verified 01/06/25 20:33 Penicillins Allergy Rash/Hives Verified 01/06/25 20:33 alprazolam [From Xanax] AdvReac MAKES Verified 01/06/25 20:33 PARANOID dicyclomine [From Bentyl] AdvReac constipatio Verified 01/06/25 20:33 n Review of Systems ROS Statement: Those systems with pertinent positive or pertinent negative responses have been documented in the HPI. ROS Other: All systems not noted in ROS Statement are negative. Past Medical History Past Medical History: Blood Disorder, GERD/Reflux Additional Past Medical History / Comment(s): Endometriosis, polycystic ovarian syndrome. IRON DEFICIENCY ANEMIA. Stomach Ulcer. Hx ovarian cyst.IBS History of Any Multi-Drug Resistant Organisms: None Reported Past Surgical History: Ablation, Appendectomy, Section, Cholecystectomy, Hernia Repair, Hysterectomy, Tubal Ligation, Uterine Ablation Additional Past Surgical History / Comment(s): Laparoscopy X2, Section X3, right ovary and right tube removed, then total hysterectomy including left ovary and left fallopian tube, cyst removed from chest, ADHESION REMOVAL FROM PAST CSECTION, vaginal/pelvic biopsy. Scar tissure removal abdomen L upper lower Past Anesthesia/Blood Transfusion Reactions: No Reported Reaction Past Psychological History: Anxiety, Depression Smoking Status: Never smoker Past Alcohol Use History: Occasional Past Drug Use History: None Reported - Past Family History Mother Family Medical History: Deep Vein Thrombosis (DVT), Hyperlipidemia Additional Family Medical History / Comment(s): Depression and anxiety. DVT to arm after surgery. General Exam Limitations: no limitations General appearance: alert, in no apparent distress Respiratory exam: Present: normal lung sounds bilaterally. Absent: respiratory distress, wheezes, rales, rhonchi, stridor Cardiovascular Exam: Present: regular rate, normal rhythm, normal heart sounds. Absent: systolic murmur, diastolic murmur, rubs, gallop, clicks GI/Abdominal exam: Present: soft, tenderness (Generalized), normal bowel sounds. Absent: distended, guarding, rebound, rigid Extremities exam: Present: normal inspection, full ROM, normal capillary refill. Absent: tenderness, pedal edema, joint swelling, calf tenderness Neurological exam: Present: alert, oriented X3, CN II-XII intact Skin exam: Present: warm, dry, intact, normal color. Absent: rash Course Vital Signs 01/06/25 20:32 Temperature 98 F Pulse Rate 94 Respiratory 16 Rate Blood Pressure 134/89 O2 Sat by Pulse 100 Oximetry Medical Decision Making - Medical Decision Making Was pt. sent in by a medical professional or institution (, PA, KST OPERATOR, urgent care, hospital, or long term...) When possible be specific @ -No Did you speak to anyone other than the patient for history (EMS, parent, family, police, friend...)? What history was obtained from this source @ -No Did you review nursing and triage notes (agree or disagree)? Why? @ -I reviewed and agree with nursing and triage notes Were old charts reviewed (outside hosp., previous admission, EMS record, old EKG, old radiological studies, urgent care reports/EKG's, long term records)? Report findings @ -Prior ER visit Differential Diagnosis (chest pain, altered mental status, abdominal pain women, abdominal pain men, vaginal bleeding, weakness, fever, dyspnea, syncope, headache, dizziness, GI bleed, back pain, seizure, CVA, palpatations, mental health, musculoskeletal)? @ -Differential Abdominal Pain Women:Appendicitis, Cholecystitis, diverticulosis, ischemic bowel, pancreatitis, hepatitis, UTI, gastroenteritis, AAA, incarcerated hernia, bowel obstruction, constipation, inflammatory bowel, hepatitis, peptic ulcer disease, splenic infarction, perforated viscus, vulvitis, ovarian torsion, PID, kidney stone, placenta abruption, this is not meant to be an all-inclusive list EKG interpreted by me (3pts min.). @ -None done X-rays interpreted by me (1pt min.). @ -None done CT interpreted by me (1pt min.). @ -None done U/S interpreted by me (1pt. min.). @ -None done What testing was considered but not performed or refused? (CT, X-rays, U/S, labs)? Why? @ -Laboratory studies and imaging deferred as patient reports pain is chronic in nature, no new features. Patient is agreeable What meds were considered but not given or refused? Why? @ -None Did you discuss the management of the patient with other professionals (professionals i.e. , PA, KST OPERATOR, lab, RT, psych nurse, social security benefits interviewer, machine sorter, teacher, parachute officer, case management rn)? Give summary @ -No Was smoking cessation discussed for >3mins.? @ -No Was critical care preformed (if so, how long)? @ -No Were there social determinants of health that impacted care today? How? (Homel essness, low income, unemployed, alcoholism, drug addiction, transportation, low edu. Level, literacy, decrease access to med. care, fdc, rehab)? @ -No Was there de-escalation of care discussed even if they declined (Discuss DNR or withdrawal of care, Hospice)? DNR status @ -No What co-morbidities impacted this encounter? (DM, HTN, Smoking, COPD, CAD, Cancer, CVA, ARF, Chemo, Hep., AIDS, mental health diagnosis, sleep apnea, morbid obesity)? @ -Endometriosis, IBS, PCOS Was patient admitted / discharged? Hospital course, mention meds given and route, prescriptions, significant lab abnormalities, going to OR and other pertinent info. @ -Discharge. 34-year-old female presented the ER for chronic abdominal pain. Patient reports pain is similar to previous IBS flares. No new features. Vital signs stable. Upon my evaluation, patient resting comfortably on stretcher no signs acute distress. There generalized abdominal tenderness no focal tenderness with normal bowel sounds. No rebound or guarding. Patient provided symptomatic control and discharged with Lomotil starter pack. Instructed to follow-up closely with PCP and pain management. Return parameters discussed. Patient discharged in stable condition. Case discussed with ED attending, Dr. Rangel. Undiagnosed new problem with uncertain prognosis? @ -No Drug Therapy requiring intensive monitoring for toxicity (Heparin, Nitro, Insulin, Cardizem)? @ -No Were any procedures done? @ -No Diagnosis/symptom? @ -Abdominal pain Acute, or Chronic, or Acute on Chronic? @ -Chronic Uncomplicated (without systemic symptoms) or Complicated (systemic symptoms)? @ -Uncomplicated Side effects of treatment? @ -No Exacerbation, Progression, or Severe Exacerbation? @ -No Poses a threat to life or bodily function? How? (Chest pain, [place], [place], pneumonia, PE, COPD, DKA, ARF, appy, cholecystitis, CVA, Diverticulitis, Homicidal, Suicidal, threat to staff... and all critical care pts) @ -No Disposition Clinical Impression: Chronic abdominal pain Disposition: HOME SELF-CARE Condition: Stable Instructions (If sedation given, give patient instructions): Abdominal Pain (ED) Additional Instructions: Follow-up with pain management. Return to the ER for any new or worsening concerns. Is patient prescribed a controlled substance at d/c from ED?: No Referrals: Christiano Gutierrez MD [Primary Care Provider] - 1-2 days Time of Disposition: 20:44
[2025-01-06] MEDS: KETOROLAC 15 MG/ML 1 ML VIAL IM STA (21:03)
[2025-01-06] MEDS: METOCLOPRAMIDE 5 MG/ML 2 ML VIAL IM STA (21:04)
[2025-01-06] MEDS: oxyCODONE-APAP 7.5-325MG 1 EACH TAB PO STA (21:05)
[2025-01-06] MEDS: DIPHENOX-ATROP STARTER PACK 8 TAB BTL PO STA (21:06)
== END 2025-01-06 21:18 | disposition home or self-care (01) ==
LOC: EC 20:31
DX: G89.29 Other chronic pain (principal); R10.84 Generalized abdominal pain; Z88.2 Allergy status to sulfonamides; Z88.0 Allergy status to penicillin; Z88.1 Allergy status to other antibiotic agents; Z88.8 Allergy status to other drugs, medicaments and biological substances
CPT/HCPCS: 99283; 96372 ×2; J2765; J1885

== ENCOUNTER 2025-01-15 02:41 | Emergency (ER) | payer OTHER ==
[2025-01-15 02:52] VITALS: TEMP 98.3
[2025-01-15 03:37] LABS: Appearance,Urine Clear (Clear); Bilirubin,Urine Negative (Negative); Blood,Urine Negative (Negative); Color,Urine Light Yellow; Glucose,Urine (UA) Negative (Negative); Ketones,Urine Negative (Negative); Leukocyte Esterase,Urine Negative (Negative); Nitrite,Urine Negative (Negative); Protein,Urine Negative (Negative); Urobilinogen,Urine <2.0 mg/dL (<2.0)
[2025-01-15 03:39] LABS: African American GFR (CKD) >90 (>60 ml/min/1.73 sqM); Anion Gap 10 mmol/L; Blood Urea Nitrogen 18 mg/dL (7-17); Calcium 9.7 mg/dL (8.4-10.2); Carbon Dioxide 25 mmol/L (22-30); Chloride 103 mmol/L (98-107); Glucose 98 mg/dL (74-99); Non-African American GFR(CKD) >90 (>60 ml/min/1.73 sqM); Sodium 138 mmol/L (137-145)
[2025-01-15 03:40] LABS: Basophils # (A) 0.01 10*3/uL (0.00-0.10); Basophils % (A) 0.2 %; Eosinophils # (A) 0.04 10*3/uL (0.04-0.35); Eosinophils % (A) 0.9 %; HGB 10.1 g/dL (12.0-15.0); Lymphocytes # (A) 2.24 10*3/uL (0.90-5.00); MCH 31.4 pg (27.0-32.0); MCHC 33.7 g/dL (32.0-37.0); MCV 93.2 fL (80.0-97.0); Mean Platelet Volume 10.3 fL (9.5-12.2); Monocytes # (A) 0.35 10*3/uL (0.20-1.00); Neutrophils # (A) 1.74 10*3/uL (1.80-7.70); Neutrophils % (A) 39.7 %; Platelet Count 224 10*3/uL (140-440); RBC 3.22 10*6/uL (4.10-5.20); WBC 4.39 10*3/uL (4.50-10.00)
--- NOTE | 2025-01-15 04:34 | ED ---
General Adult HPI - General Chief complaint: Abdominal Pain Stated complaint: Pain: Abdominal and Lower Back Time Seen by Provider: 01/15/25 04:05 Source: patient, RN notes reviewed, old records reviewed Mode of arrival: wheelchair - History of Present Illness Initial comments: Patient is a 34-year-old female well-known to emergency department who presents emergency department for acute on chronic abdominal pain. Has a history of chronic abdominal pain. Frequent CTs for this abdominal pain. Has seen providers in our ER at least 21 times over the last 3 months for identical complaints. States this is somewhat typical of her normal pain with some back involvement. No nausea or vomiting or diarrhea. No constipation. Is on Percocets at home. Presents for further evaluation. Worse with movement. No chest pain or shortness of breath. No blood in the stool. No vomiting. No hematemesis. No fevers. No urinary complaints. No vaginal discharge or blee ding. - Related Data Home Medications Medication Instructions Recorded Confirmed Budesonide/Formoterol Fumarate 2 puff INHALATION RT-BID 09/02/24 09/24/24 [Symbicort 160-4.5 Mcg Inhaler] Escitalopram Oxalate [Lexapro] 20 mg PO HS 09/02/24 09/24/24 Gabapentin [Neurontin] 200 mg PO TID 09/02/24 09/24/24 HYDROcodone/APAP 10-325MG [[place] 1 tab PO TID PRN 09/02/24 09/24/24 10-325] Omeprazole [PriLOSEC] 40 mg PO HS 09/02/24 09/24/24 ondansetron HCL [Zofran] 8 mg PO Q12HR PRN 09/02/24 09/24/24 Ibuprofen 800 mg PO DAILY PRN 09/24/24 09/24/24 Previous Rx's Medication Instructions Recorded Prochlorperazine [Compazine] 10 mg PO Q6H #15 tab 10/01/24 Nitrofurantoin Monohyd/M-Cryst 100 mg PO Q12HR #10 cap 10/09/24 [Macrobid] Ciprofloxacin HCl [Cipro] 500 mg PO BID 7 Days #14 tab 10/18/24 Allergies Allergy/AdvReac Type Severity Reaction Status Date / Time sulfamethoxazole Allergy Severe Anaphylaxis Verified 01/15/25 02:52 [From Bactrim] trimethoprim [From Bactrim] Allergy Severe Anaphylaxis Verified 01/15/25 02:52 adhesive tape Allergy Rash/Hives Verified 01/15/25 02:52 aloe vera Allergy Rash/Hives Verified 01/15/25 02:52 amoxicillin [From Augmentin] Allergy Itching Verified 01/15/25 02:52 azithromycin Allergy Rash/Hives Verified 01/15/25 02:52 cephalexin Allergy Rash/Hives Verified 01/15/25 02:52 clavulanic acid Allergy Itching Verified 01/15/25 02:52 [From Augmentin] metronidazole [From Flagyl] Allergy Rash/Hives Verified 01/15/25 02:52 Penicillins Allergy Rash/Hives Verified 01/15/25 02:52 alprazolam [From Xanax] AdvReac MAKES Verified 01/15/25 02:52 PARANOID dicyclomine [From Bentyl] AdvReac constipatio Verified 01/15/25 02:52 n Review of Systems ROS Statement: Those systems with pertinent positive or pertinent negative responses have been documented in the HPI. Review of Systems: CONST: Denies fever EYES: Denies blurry vision ENT: Denies nasal congestion C/V: Denies Chest pain RESP: Denies shortness of breath GI: Endorses abdominal pain : Denies dysuria SKIN: Denies rash. MSK: Denies joint pain. NEURO: Denies headache ROS Other: All systems not noted in ROS Statement are negative. Past Medical History Past Medical History: Blood Disorder, GERD/Reflux Additional Past Medical History / Comment(s): Endometriosis, polycystic ovarian syndrome. IRON DEFICIENCY ANEMIA. Stomach Ulcer. Hx ovarian cyst.IBS History of Any Multi-Drug Resistant Organisms: None Reported Past Surgical History: Ablation, Appendectomy, Section, Cholecystectomy, Hernia Repair, Hysterectomy, Tubal Ligation, Uterine Ablation Additional Past Surgical History / Comment(s): Laparoscopy X2, Section X3, right ovary and right tube removed, then total hysterectomy including left ovary and left fallopian tube, cyst removed from chest, ADHESION REMOVAL FROM PAST CSECTION, vaginal/pelvic biopsy. Scar tissure removal abdomen L upper lower Past Anesthesia/Blood Transfusion Reactions: No Reported Reaction Past Psychological History: Anxiety, Depression Smoking Status: Never smoker Past Alcohol Use History: Occasional Past Drug Use History: None Reported - Past Family History Mother Family Medical History: Deep Vein Thrombosis (DVT), Hyperlipidemia Additional Family Medical History / Comment(s): Depression and anxiety. DVT to arm after surgery. General Exam - General Exam Comments Initial Comments: General: Appears in no acute distress. HEAD: Normal with no signs of head trauma. EYES: PERRLA ENT: Hearing grossly intact RESPIRATORY: Clear breath sounds bilaterally. No wheezes, rales, or rhonchi. C/V: Regular rate and rhythm. S1 and S2 auscultated, no edema, peripheral pulses 2+ and intact throughout ABD: Abd is soft, nontender, nondistended EXT: No obvious deformity. SKIN: No rashes or lesions observed on exposed skin. NEURO: Alert and oriented x 4. Course Vital Signs 01/15/25 02:50 Temperature 98.3 F Pulse Rate 77 Respiratory 19 Rate Blood Pressure 128/84 O2 Sat by Pulse 99 Oximetry Medical Decision Making - Medical Decision Making Was pt. sent in by a medical professional or institution (, PA, MANAGER IN TRAINING, urgent care, hospital, or long term...) When possible be specific @ -No Did you speak to anyone other than the patient for history (EMS, parent, family, police, friend...)? What history was obtained from this source @ -No Did you review nursing and triage notes (agree or disagree)? Why? @ -I reviewed and agree with nursing and triage notes Were old charts reviewed (outside hosp., previous admission, EMS record, old EKG, old radiological studies, urgent care reports/EKG's, long term records)? Report findings @ -Old charts reviewed showing numerous visits over the last few months. Most recent CT abdomen pelvis obtained in September of this year for identical complaints. Only remarkable for small hiatal hernia at that time. Differential Diagnosis (chest pain, altered mental status, abdominal pain women, abdominal pain men, vaginal bleeding, weakness, fever, dyspnea, syncope, headac he, dizziness, GI bleed, back pain, seizure, CVA, palpatations, mental health, musculoskeletal)? @ -Differential Abdominal Pain Women: Appendicitis, Cholecystitis, diverticulosis, ischemic bowel, pancreatitis, hepatitis, UTI, gastroenteritis, AAA, incarcerated hernia, bowel obstruction, constipation, inflammatory bowel, hepatitis, peptic ulcer disease, splenic infarction, perforated viscus, vulvitis, ovarian torsion, PID, kidney stone, placenta abruption, this is not meant to be an all-inclusive list EKG interpreted by me (3pts min.). @ -None done X-rays interpreted by me (1pt min.). @ -None done CT interpreted by me (1pt min.). @ -None done U/S interpreted by me (1pt. min.). @ -None done What testing was considered but not performed or refused? (CT, X-rays, U/S, labs)? Why? @ -Considered CT imaging but workup is unremarkable and patient is here frequently and has had numerous CTs of the abdomen/pelvis. We both agreed to defer at this time. Unlikely to show much significant etiology as this pain seems chronic. What meds were considered but not given or refused? Why? @ -None Did you discuss the management of the patient with other professionals (professionals i.e. , PA, MANAGER IN TRAINING, lab, RT, psych nurse, drug abuse social worker, professor of violin, teacher, chief clinical officer, casework manager)? Give summary @ -No Was smoking cessation discussed for >3mins.? @ -No Was critical care preformed (if so, how long)? @ -No Were there social determinants of health that impacted care today? How? (Homelessness, low income, unemployed, alcoholism, drug addiction, transportation, low edu. Level, literacy, decrease access to med. care, longterm, rehab)? @ -No Was there de-escalation of care discussed even if they declined (Discuss DNR or withdrawal of care, Hospice)? DNR status @ -No What co-morbidities impacted this encounter? (DM, HTN, Smoking, COPD, CAD, Cancer, CVA, ARF, Chemo, Hep., AIDS, mental health diagnosis, sleep apnea, morbid obesity)? @ -None Was patient admitted / discharged? Hospital course, mention meds given and route, prescriptions, significant lab abnormalities, going to OR and other pertinent info. @ -Based on patient's presentation physical exam, presents emergency department complaining of acute chronic abdominal pain. Labs obtained while patient was in triage. These are unremarkable. Mild anemia of 10.1 which is chronic for the patient. Remainder the workup unremarkable. I discussed with the patient the results. She will be given analgesia medications and discharged home. Vital signs are within acceptable limits. She was in agreement this plan. I instructed the patient to follow up with their PCP in the next 1-3 days. I explained that the patient should return to the emergency department if they experience any worsening symptoms. Strict return precautions were discussed with the patient. The patient expressed understanding of these instructions. I ans wered all questions that the patient had. The patient was discharged home in good condition with their prescriptions and follow up information. Undiagnosed new problem with uncertain prognosis? @ -No Drug Therapy requiring intensive monitoring for toxicity (Heparin, Nitro, Insulin, Cardizem)? @ -No Were any procedures done? @ -No Diagnosis/symptom? @ -Abdominal pain of unknown etiology Acute, or Chronic, or Acute on Chronic? @ -Chronic Uncomplicated (without systemic symptoms) or Complicated (systemic symptoms)? @ -Uncomplicated Side effects of treatment? @ -No Exacerbation, Progression, or Severe Exacerbation? @ -No Poses a threat to life or bodily function? How? (Chest pain, [place], [place], pneumonia, PE, COPD, DKA, ARF, appy, cholecystitis, CVA, Diverticulitis, Homicidal, Suicidal, threat to staff... and all critical care pts) @ -Unlikely at this time - Lab Data Result diagrams: 01/15/25 03:06 01/15/25 03:06 Lab Results 01/15/25 01/15/25 01/15/25 Range/Units 03:06 03:06 03:09 WBC 4.39 L (4.50-10.00) 10*3/uL RBC 3.22 L (4.10-5.20) 10*6/uL Hgb 10.1 L (12.0-15.0) g/dL Hct 30.0 L (37.2-46.3) % MCV 93.2 (80.0-97.0) fL MCH 31.4 (27.0-32.0) pg MCHC 33.7 (32.0-37.0) g/dL Plt Count 224 (140-440) 10*3/uL MPV 10.3 (9.5-12.2) fL Immature Gran % (Auto) 0.2 % Neutrophils % 39.7 % Lymphocytes % 51.0 % Monocytes % 8.0 % Eosinophils % 0.9 % Basophils % 0.2 % Immature Gran # 0.01 (0.00-0.04) 10*3/uL Neutrophils # 1.74 L (1.80-7.70) 10*3/uL Lymphocytes # 2.24 (0.90-5.00) 10*3/uL Monocytes # 0.35 (0.20-1.00) 10*3/uL Eosinophils # 0.04 (0.04-0.35) 10*3/uL Basophils # 0.01 (0.00-0.10) 10*3/uL Sodium 138 (137-145) mmol/L Potassium 4.0 (3.5-5.1) mmol/L Chloride 103 (98-107) mmol/L Carbon Dioxide 25 (22-30) mmol/L Anion Gap 10 mmol/L BUN 18 H (7-17) mg/dL Creatinine 0.54 (0.52-1.04) mg/dL Est GFR (CKD-EPI)AfAm >90 (>60 ml/min/1.73 sqM) Est GFR (CKD-EPI)NonAf >90 (>60 ml/min/1.73 sqM) Glucose 98 (74-99) mg/dL Calcium 9.7 (8.4-10.2) mg/dL Urine Color Light Yellow Urine Appearance Clear (Clear) Urine pH 6.0 (5.0-8.0) Ur Specific [place] 1.030 (1.001-1.035) Urine Protein Negative (Negative) Urine Glucose (UA) Negative (Negative) Urine Ketones Negative (Negative) Urine Blood Negative (Negative) Urine Nitrite Negative (Negative) Urine Bilirubin Negative (Negative) Urine Urobilinogen <2.0 (<2.0) mg/dL Ur Leukocyte Esterase Negative (Negative) Disposition Clinical Impression: Chronic abdominal pain, Abdominal pain of unknown etiology Disposition: ADMITTED IP TO THIS [facility] Condition: Stable Is patient prescribed a controlled substance at d/c from ED?: No Referrals: Christiano Gutierrez MD [Primary Care Provider] - 1-2 days Time of Disposition: 04:33
[2025-01-15] MEDS: HYDROmorphone 0.5 MG/0.5 ML SYRINGE IVP STA (04:57)
[2025-01-15] MEDS: ORPHENADRINE 30 MG/ML 2 ML VIAL IVP STA (04:58)
[2025-01-15 05:04] VITALS: BP 126/78; PULSE 81; RESP 16
== END 2025-01-15 05:39 | disposition other institution (70) ==
LOC: EC 02:41
DX: G89.29 Other chronic pain (principal); R10.9 Unspecified abdominal pain; Z88.0 Allergy status to penicillin; Z88.1 Allergy status to other antibiotic agents; Z88.2 Allergy status to sulfonamides; Z88.8 Allergy status to other drugs, medicaments and biological substances; Z91.048 Other nonmedicinal substance allergy status
CPT/HCPCS: 36415; 80048; 85025; 81003; 99285; 96374; 96375; J2360; J1171

== ENCOUNTER 2025-01-17 06:57 | Emergency (ER) | payer OTHER ==
[2025-01-17 07:02] VITALS: TEMP 98
--- NOTE | 2025-01-17 07:25 | ED ---
Abdominal Pain HPI - General Chief Complaint: Abdominal Pain Stated Complaint: Pelvic/Back Pain/Nausea Time Seen by Provider: 01/17/25 07:24 Source: patient, RN notes reviewed, old records reviewed Mode of arrival: ambulatory Limitations: no limitations - History of Present Illness Initial Comments: 34 year old female presenting to the ER for evaluation of abdominal pain. Patient has chronic abdominal and pelvic pain. Patient reports extensive abdominal surgical history including appendectomy, cholecystectomy, hernia repair, hysterectomy. Patient also reports a history of endometriosis, PCOS, iron deficiency anemia, IBS and gastric ulcer. She is scheduled to follow-up with pain management in February. Patient reports over the past couple of days she has been having increase in chronic pain. She states it feels like there are "fireworks" in her pelvis. She reports mild radiation to right flank. She states she feels like she is "urinating sand". Patient was evaluated 2 days prior with negative workup. Patient has tried prescribed Percocet along with [id number] ibuprofen and Tylenol without relief of symptoms. Patient reports pain is similar to chronic pain flares. Patient denies any fevers, chills, nausea, vomiting, diarrhea/constipation, chest pain, shortness of breath, dizziness, lightheadedness or peripheral edema. - Related Data Home Medications Medication Instructions Recorded Confirmed Budesonide/Formoterol Fumarate 2 puff INHALATION RT-BID 09/02/24 09/24/24 [Symbicort 160-4.5 Mcg Inhaler] Escitalopram Oxalate [Lexapro] 20 mg PO HS 09/02/24 09/24/24 Gabapentin [Neurontin] 200 mg PO TID 09/02/24 09/24/24 HYDROcodone/APAP 10-325MG [[place] 1 tab PO TID PRN 09/02/24 09/24/24 10-325] Omeprazole [PriLOSEC] 40 mg PO HS 09/02/24 09/24/24 ondansetron HCL [Zofran] 8 mg PO Q12HR PRN 09/02/24 09/24/24 Ibuprofen 800 mg PO DAILY PRN 09/24/24 09/24/24 Previous Rx's Medication Instructions Recorded Prochlorperazine [Compazine] 10 mg PO Q6H #15 tab 10/01/24 Nitrofurantoin Monohyd/M-Cryst 100 mg PO Q12HR #10 cap 10/09/24 [Macrobid] Ciprofloxacin HCl [Cipro] 500 mg PO BID 7 Days #14 tab 10/18/24 Allergies Allergy/AdvReac Type Severity Reaction Status Date / Time sulfamethoxazole Allergy Severe Anaphylaxis Verified 01/17/25 07:02 [From Bactrim] trimethoprim [From Bactrim] Allergy Severe Anaphylaxis Verified 01/17/25 07:02 adhesive tape Allergy Rash/Hives Verified 01/17/25 07:02 aloe vera Allergy Rash/Hives Verified 01/17/25 07:02 amoxicillin [From Augmentin] Allergy Itching Verified 01/17/25 07:02 azithromycin Allergy Rash/Hives Verified 01/17/25 07:02 cephalexin Allergy Rash/Hives Verified 01/17/25 07:02 clavulanic acid Allergy Itching Verified 01/17/25 07:02 [From Augmentin] metronidazole [From Flagyl] Allergy Rash/Hives Verified 01/17/25 07:02 Penicillins Allergy Rash/Hives Verified 01/17/25 07:02 alprazolam [From Xanax] AdvReac MAKES Verified 01/17/25 07:02 PARANOID dicyclomine [From Bentyl] AdvReac constipatio Verified 01/17/25 07:02 n Review of Systems ROS Statement: Those systems with pertinent positive or pertinent negative responses have been documented in the HPI. ROS Other: All systems not noted in ROS Statement are negative. Past Medical History Past Medical History: Blood Disorder, GERD/Reflux Additional Past Medical History / Comment(s): Endometriosis, polycystic ovarian syndrome. IRON DEFICIENCY ANEMIA. Stomach Ulcer. Hx ovarian cyst.IBS History of Any Multi-Drug Resistant Organisms: None Reported Past Surgical History: Ablation, Appendectomy, Section, Cholecystectomy, Hernia Repair, Hysterectomy, Tubal Ligation, Uterine Ablation Additional Past Surgical History / Comment(s): Laparoscopy X2, Section X3, right ovary and right tube removed, then total hysterectomy including left ovary and left fallopian tube, cyst removed from chest, ADHESION REMOVAL FROM PAST CSECTION, vaginal/pelvic biopsy. Scar tissure removal abdomen L upper lower Past Anesthesia/Blood Transfusion Reactions: No Reported Reaction Past Psychological History: Anxiety, Depression Smoking Status: Never smoker Past Alcohol Use History: Occasional Past Drug Use History: None Reported - Past Family History Mother Family Medical History: Deep Vein Thrombosis (DVT), Hyperlipidemia Additional Family Medical History / Comment(s): Depression and anxiety. DVT to a rm after surgery. General Exam Limitations: no limitations General appearance: alert, in no apparent distress Respiratory exam: Present: normal lung sounds bilaterally. Absent: respiratory distress, wheezes, rales, rhonchi, stridor Cardiovascular Exam: Present: regular rate, normal rhythm, normal heart sounds. Absent: systolic murmur, diastolic murmur, rubs, gallop, clicks GI/Abdominal exam: Present: soft, tenderness (lower abdomen), normal bowel sounds Extremities exam: Present: normal inspection, full ROM, normal capillary refill. Absent: tenderness, pedal edema, joint swelling, calf tenderness Neurological exam: Present: alert, oriented X3, CN II-XII intact Skin exam: Present: warm, dry, intact, normal color. Absent: rash Course Vital Signs 01/17/25 01/17/25 01/17/25 07:00 09:00 09:31 Temperature 98 F Pulse Rate 70 68 68 Respiratory 18 16 16 Rate Blood Pressure 123/82 120/60 120/60 O2 Sat by Pulse 100 98 98 Oximetry Medical Decision Making - Medical Decision Making Was pt. sent in by a medical professional or institution (, PA, SHOEMAKER APPRENTICE, urgent care, hospital, or senior care...) When possible be specific @ -No Did you speak to anyone other than the patient for history (EMS, parent, family, police, friend...)? What history was obtained from this source @ -No Did you review nursing and triage notes (agree or disagree)? Why? @ -I reviewed and agree with nursing and triage notes Were old charts reviewed (outside hosp., previous admission, EMS record, old EKG, old radiological studies, urgent care reports/EKG's, senior care records)? Report findings @ -Prior medical record Differential Diagnosis (chest pain, altered mental status, abdominal pain women, abdominal pain men, vaginal bleeding, weakness, fever, dyspnea, syncope, headache, dizziness, GI bleed, back pain, seizure, CVA, palpatations, mental health, musculoskeletal)? @ -[Differential Abdominal Pain Women:Appendicitis, Cholecystitis, diverticulosis, ischemic bowel, pancreatitis, hepatitis, UTI, gastroenteritis, AAA, incarcerated hernia, bowel obstruction, constipation, inflammatory bowel, hepatitis, peptic ulcer disease, splenic infarction, perforated viscus, vulvitis, ovarian torsion, PID, kidney stone, placenta abruption, this is not meant to be an all-inclusive list EKG interpreted by me (3pts min.). @ -None done X-rays interpreted by me (1pt min.). @ -None done CT interpreted by me (1pt min.). @ -None done U/S interpreted by me (1pt. min.). @ -None done What testing was considered but not performed or refused? (CT, X-rays, U/S, labs)? Why? @ -Imaging deferred at this time as patient has chronic pain. She states pain is typical for her chronic flares. Patient is agreeable. What meds were considered but not given or refused? Why? @ -None Did you discuss the management of the patient with other professionals (professionals i.e. , PA, SHOEMAKER APPRENTICE, lab, RT, psych nurse, aids social worker, concrete carpenter, teacher, surveillance sensor officer, rn case mgr)? Give summary @ -No Was smoking cessation discussed for >3mins.? @ -No Was critical care preformed (if so, how long)? @ -No Were there social determinants of health that impacted care today? How? (Homeles sness, low income, unemployed, alcoholism, drug addiction, transportation, low edu. Level, literacy, decrease access to med. care, group home, rehab)? @ -No Was there de-escalation of care discussed even if they declined (Discuss DNR or withdrawal of care, Hospice)? DNR status @ -No What co-morbidities impacted this encounter? (DM, HTN, Smoking, COPD, CAD, Cancer, CVA, ARF, Chemo, Hep., AIDS, mental health diagnosis, sleep apnea, morbid obesity)? @ -IBS, endometriosis, PCOS Was patient admitted / discharged? Hospital course, mention meds given and route, prescriptions, significant lab abnormalities, going to OR and other pertinent info. @ -Discharge. 34-year-old female presented the ER for evaluation of chronic abdominal pain. Vital signs stable. Patient well-known to this emergency department for similar complaints. No new features of pain. Upon evaluation, patient in no signs of acute distress nontoxic-appearing. Laboratory studies obtained unimpressive and appear to be patient's baseline. Urinalysis without evidence of infection. Patient provided with symptomatic control with IV fluids, Dilaudid, Toradol and Norflex. Upon reevaluation, patient reporting improvement of pain and is comfortable discharge at this time. Return parameters discussed. Patient discharged stable condition advised follow-up with PCP and pain management. Patient verbally expressed understand agree with care plan. Case discussed with ED attedning, Dr. Disla. Undiagnosed new problem with uncertain prognosis? @ -No Drug Therapy requiring intensive monitoring for toxicity (Heparin, Nitro, Insulin, Cardizem)? @ -No Were any procedures done? @ -No Diagnosis/symptom? @ -Abdominal pain Acute, or Chronic, or Acute on Chronic? @ -Chronic Uncomplicated (without systemic symptoms) or Complicated (systemic symptoms)? @ -Uncomplicated Side effects of treatment? @ -No Exacerbation, Progression, or Severe Exacerbation? @ -No Poses a threat to life or bodily function? How? (Chest pain, [place], ME, pneumonia, PE, COPD, DKA, ARF, appy, cholecystitis, CVA, Diverticulitis, Homicidal, Suicidal, threat to staff... and all critical care pts) @ -No - Lab Data Result diagrams: 01/17/25 07:04 01/17/25 07:04 Lab Results 01/17/25 01/17/25 01/17/25 Range/Units 07:04 07:04 07:04 WBC 3.31 L (4.50-10.00) 10*3/uL RBC 2.96 L (4.10-5.20) 10*6/uL Hgb 9.3 L (12.0-15.0) g/dL Hct 27.8 L (37.2-46.3) % MCV 93.9 (80.0-97.0) fL MCH 31.4 (27.0-32.0) pg MCHC 33.5 (32.0-37.0) g/dL Plt Count 169 (140-440) 10*3/uL MPV 10.0 (9.5-12.2) fL Immature Gran % (Auto) 0.3 % Neutrophils % 48.0 % Lymphocytes % 40.8 % Monocytes % 9.4 % Eosinophils % 0.9 % Basophils % 0.6 % Immature Gran # 0.01 (0.00-0.04) 10*3/uL Neutrophils # 1.59 L (1.80-7.70) 10*3/uL Lymphocytes # 1.35 (0.90-5.00) 10*3/uL Monocytes # 0.31 (0.20-1.00) 10*3/uL Eosinophils # 0.03 L (0.04-0.35) 10*3/uL Basophils # 0.02 (0.00-0.10) 10*3/uL Sodium 140 (137-145) mmol/L Potassium 3.7 (3.5-5.1) mmol/L Chloride 107 (98-107) mmol/L Carbon Dioxide 26 (22-30) mmol/L Anion Gap 7 mmol/L BUN 16 (7-17) mg/dL Creatinine 0.67 (0.52-1.04) mg/dL Est GFR (CKD-EPI)AfAm >90 (>60 ml/min/1.73 sqM) Est GFR (CKD-EPI)NonAf >90 (>60 ml/min/1.73 sqM) Glucose 102 H (74-99) mg/dL Calcium 9.3 (8.4-10.2) mg/dL Total Bilirubin 0.3 (0.2-1.3) mg/dL AST 17 (14-36) U/L ALT 10 (4-34) U/L Alkaline Phosphatase 64 (38-126) U/L Total Protein 6.2 L (6.3-8.2) g/dL Albumin 3.8 (3.5-5.0) g/dL Urine Color Light Yellow Urine Appearance Clear (Clear) Urine pH 6.0 (5.0-8.0) Ur Specific [place] 1.024 (1.001-1.035) Urine Protein Negative (Negative) Urine Glucose (UA) Negative (Negative) Urine Ketones Negative (Negative) Urine Blood Negative (Negative) Urine Nitrite Negative (Negative) Urine Bilirubin Negative (Negative) Urine Urobilinogen <2.0 (<2.0) mg/dL Ur Leukocyte Esterase Trace H (Negative) Urine RBC <1 (0-5) /hpf Urine WBC 9 H (0-5) /hpf Urine Mucus Rare H (None) /hpf Disposition Clinical Impression: Chronic abdominal pain Disposition: HOME SELF-CARE Condition: Stable Instructions (If sedation given, give patient instructions): Abdominal Pain (ED) Additional Instructions: Follow-up with pain management and PCP. Return to ER for any new or worsening concerns Is patient prescribed a controlled substance at d/c from ED?: No Referrals: Christiano Gutierrez MD [Primary Care Provider] - 1-2 days Time of Disposition: 08:53
[2025-01-17 08:26] LABS: Basophils # (A) 0.02 10*3/uL (0.00-0.10); Basophils % (A) 0.6 %; Eosinophils # (A) 0.03 10*3/uL (0.04-0.35); Eosinophils % (A) 0.9 %; HCT 27.8 % (37.2-46.3); HGB 9.3 g/dL (12.0-15.0); Lymphocytes # (A) 1.35 10*3/uL (0.90-5.00); Lymphocytes % (A) 40.8 %; MCH 31.4 pg (27.0-32.0); MCHC 33.5 g/dL (32.0-37.0); MCV 93.9 fL (80.0-97.0); Monocytes # (A) 0.31 10*3/uL (0.20-1.00); Monocytes % (A) 9.4 %; Neutrophils # (A) 1.59 10*3/uL (1.80-7.70); Platelet Count 169 10*3/uL (140-440); RBC 2.96 10*6/uL (4.10-5.20); RDW 13.2 % (11.5-14.5); WBC 3.31 10*3/uL (4.50-10.00)
[2025-01-17] MEDS: HYDROmorphone 0.5 MG/0.5 ML SYRINGE IVP STA ×2 (08:29→09:00)
[2025-01-17] MEDS: KETOROLAC 15 MG/ML 1 ML VIAL IVP STA (08:30)
[2025-01-17] MEDS: SODIUM CHLORIDE 0.9% 1,000 ML IV ONE (08:31)
[2025-01-17 08:36] LABS: Appearance,Urine Clear (Clear); Bilirubin,Urine Negative (Negative); Blood,Urine Negative (Negative); Color,Urine Light Yellow; Glucose,Urine (UA) Negative (Negative); Ketones,Urine Negative (Negative); Leukocyte Esterase,Urine Trace (Negative); Mucus,Urine Rare /hpf; Nitrite,Urine Negative (Negative); Protein,Urine Negative (Negative); RBC,Urine <1 /hpf (0-5); Specific Gravity,Urine 1.024 (1.001-1.035); Urobilinogen,Urine <2.0 mg/dL (<2.0); WBC,Urine 9 /hpf (0-5)
[2025-01-17 08:42] LABS: ALT 10 U/L (4-34); AST 17 U/L (14-36); African American GFR (CKD) >90 (>60 ml/min/1.73 sqM); Albumin 3.8 g/dL (3.5-5.0); Alkaline Phosphatase 64 U/L (38-126); Anion Gap 7 mmol/L; Blood Urea Nitrogen 16 mg/dL (7-17); Calcium 9.3 mg/dL (8.4-10.2); Carbon Dioxide 26 mmol/L (22-30); Chloride 107 mmol/L (98-107); Glucose 102 mg/dL (74-99); Non-African American GFR(CKD) >90 (>60 ml/min/1.73 sqM); Potassium 3.7 mmol/L (3.5-5.1); Sodium 140 mmol/L (137-145); Total Bilirubin 0.3 mg/dL (0.2-1.3); Total Protein 6.2 g/dL (6.3-8.2)
[2025-01-17] MEDS: ORPHENADRINE 30 MG/ML 2 ML VIAL IVP STA (08:58)
[2025-01-17 09:09] VITALS: BP 120/60; PULSE 68; RESP 16
== END 2025-01-17 09:32 | disposition home or self-care (01) ==
LOC: EC 06:57
DX: G89.29 Other chronic pain (principal); R10.9 Unspecified abdominal pain; Z88.2 Allergy status to sulfonamides; Z88.1 Allergy status to other antibiotic agents; Z91.048 Other nonmedicinal substance allergy status; Z88.0 Allergy status to penicillin; Z88.8 Allergy status to other drugs, medicaments and biological substances
CPT/HCPCS: 36415; 80053; 85025; 81001; 99284; 96374; 96375 ×2; 96376; 96361; J2360; J1885; J1171

== ENCOUNTER 2025-01-19 15:45 | Emergency (ER) | payer OTHER ==
[2025-01-19 15:52] VITALS: BP 131/82; PULSE 101; RESP 18; TEMP 98.6
--- NOTE | 2025-01-19 16:29 | ED ---
Abdominal Pain HPI - General Source: patient, RN notes reviewed Mode of arrival: wheelchair Limitations: no limitations <DianaKrishna - Last Filed: 01/19/25 16:27> - General Source: patient, RN notes reviewed, old records reviewed <Irvin Maciel - Last Filed: 01/19/25 22:05> - General Chief Complaint: Abdominal Pain Stated Complaint: abdominal pain Time Seen by Provider: 01/19/25 15:58 - History of Present Illness Initial Comments: Quick note: This is a 34-year-old female with history including chronic abdominal pain, GERD, cholecystectomy, appendectomy and tubal ligation presenting for RUQ pain x 7 days. Patient describes pain as pressure, radiating to her back, down her right flank to her pelvis. Patient states pain seems to be "spreading" with associated nausea/vomiting. Patient also states her urine occasionally feels "gritty". Denies fever, chills, dyspnea, hematuria, dysuria, increased urinary frequency. (Krishna Ortiz) 34-year-old female who presents emergency department complaining of abdominal pain. She she is well-known to our emergency department. Has chronic abdominal pain and is on pain meds at home. Denies any new symptoms. States it is over the right abdomen radiating to the pelvis. This is unchanged from her chronic pain that she has been dealing with and cannot get into see her spine pain specialist until next month. She has had multiple abdominal surgeries. Denies any change in bowel movements. Denies any nausea or vomiting. States pain is worse with movement. Presents for further evaluation at this time. Denies being . Urgently seen as a work note. I evaluated the patient when workup was completed. (Irvin Maciel) - Related Data Home Medications Medication Instructions Recorded Confirmed Budesonide/Formoterol Fumarate 2 puff INHALATION RT-BID 09/02/24 09/24/24 [Symbicort 160-4.5 Mcg Inhaler] Escitalopram Oxalate [Lexapro] 20 mg PO HS 09/02/24 09/24/24 Gabapentin [Neurontin] 200 mg PO TID 09/02/24 09/24/24 HYDROcodone/APAP 10-325MG [[place] 1 tab PO TID PRN 09/02/24 09/24/24 10-325] Omeprazole [PriLOSEC] 40 mg PO HS 09/02/24 09/24/24 ondansetron HCL [Zofran] 8 mg PO Q12HR PRN 09/02/24 09/24/24 Ibuprofen 800 mg PO DAILY PRN 09/24/24 09/24/24 Previous Rx's Medication Instructions Recorded Prochlorperazine [Compazine] 10 mg PO Q6H #15 tab 10/01/24 Nitrofurantoin Monohyd/M-Cryst 100 mg PO Q12HR #10 cap 10/09/24 [Macrobid] Ciprofloxacin HCl [Cipro] 500 mg PO BID 7 Days #14 tab 10/18/24 Allergies Allergy/AdvReac Type Severity Reaction Status Date / Time sulfamethoxazole Allergy Severe Anaphylaxis Verified 01/19/25 15:52 [From Bactrim] trimethoprim [From Bactrim] Allergy Severe Anaphylaxis Verified 01/19/25 15:52 adhesive tape Allergy Rash/Hives Verified 01/19/25 15:52 aloe vera Allergy Rash/Hives Verified 01/19/25 15:52 amoxicillin [From Augmentin] Allergy Itching Verified 01/19/25 15:52 azithromycin Allergy Rash/Hives Verified 01/19/25 15:52 cephalexin Allergy Rash/Hives Verified 01/19/25 15:52 clavulanic acid Allergy Itching Verified 01/19/25 15:52 [From Augmentin] metronidazole [From Flagyl] Allergy Rash/Hives Verified 01/19/25 15:52 Penicillins Allergy Rash/Hives Verified 01/19/25 15:52 alprazolam [From Xanax] AdvReac MAKES Verified 01/19/25 15:52 PARANOID dicyclomine [From Bentyl] AdvReac constipatio Verified 01/19/25 15:52 n Review of Systems ROS Other: All systems not noted in ROS Statement are negative. <Krishna Ortiz - Last Filed: 01/19/25 16:27> ROS Other: All systems not noted in ROS Statement are negative. <Irvin Maciel - Last Filed: 01/19/25 22:05> ROS Statement: Those systems with pertinent positive or pertinent negative responses have been documented in the HPI. Review of Systems: CONST: Denies fever EYES: Denies blurry vision ENT: Denies nasal congestion C/V: Denies Chest pain RESP: Denies shortness of breath GI: Endorses abdominal pain : Denies dysuria SKIN: Denies rash. MSK: Denies joint pain. NEURO: Denies headache (Irvin Maciel) Past Medical History Past Medical History: Blood Disorder, GERD/Reflux Additional Past Medical History / Comment(s): Endometriosis, polycystic ovarian syndrome. IRON DEFICIENCY ANEMIA. Stomach Ulcer. Hx ovarian cyst.IBS History of Any Multi-Drug Resistant Organisms: None Reported Past Surgical History: Ablation, Appendectomy, Section, C holecystectomy, Hernia Repair, Hysterectomy, Tubal Ligation, Uterine Ablation Additional Past Surgical History / Comment(s): Laparoscopy X2, Section X3, right ovary and right tube removed, then total hysterectomy including left ovary and left fallopian tube, cyst removed from chest, ADHESION REMOVAL FROM PAST CSECTION, vaginal/pelvic biopsy. Scar tissure removal abdomen L upper lower Past Anesthesia/Blood Transfusion Reactions: No Reported Reaction Past Psychological History: Anxiety, Depression Smoking Status: Never smoker Past Alcohol Use History: Occasional Past Drug Use History: None Reported - Past Family History Mother Family Medical History: Deep Vein Thrombosis (DVT), Hyperlipidemia Additional Family Medical History / Comment(s): Depression and anxiety. DVT to arm after surgery. <Krishna Ortiz - Last Filed: 01/19/25 16:27> General Exam Limitations: no limitations <Krishna Ortiz - Last Filed: 01/19/25 16:27> <Irvin Maciel - Last Filed: 01/19/25 22:05> - General Exam Comments Initial Comments: Visual Physical Exam Vital signs reviewed General: Well-appearing, nontoxic, no acute distress. Head: Normocephalic, atraumatic Eyes: PERRLA, EOMI ENT: Airway patent Chest: Nonlabored breathing Skin: No visual rash, normal skin tone Neuro: Alert and oriented 3 Musculoskeletal: No gross abnormalities (Krishna Ortiz) General: Appears in no acute distress. HEAD: Normal with no signs of head trauma. EYES: EOMI ENT: Hearing grossly intact RESPIRATORY: Clear breath sounds bilaterally. No wheezes, rales, or rhonchi. C/V: Regular rate and rhythm. S1 and S2 auscultated, peripheral pulses 2+ and intact throughout ABD: Abd is soft, nontender, nondistended EXT: No obvious deformity SKIN: No rashes or lesions observed on exposed skin. NEURO: Alert and oriented x 4. (Irvin Maciel) Course Vital Signs 01/19/25 15:50 Temperature 98.6 F Pulse Rate 101 H Respiratory 18 Rate Blood Pressure 131/82 O2 Sat by Pulse 99 Oximetry Medical Decision Making <Krishna Ortiz - Last Filed: 01/19/25 16:27> - Lab Data Result diagrams: 01/19/25 16:42 01/19/25 16:42 <Irvin Maciel - Last Filed: 01/19/25 22:05> - Medical Decision Making I completed the quick note portion of this chart signed MIRIAM Rodriguez (Krishna Ortiz) Was pt. sent in by a medical professional or institution ([facility], [facility] [facility], urgent care, hospital, or penitentiary...) When possible be specific @ -No Did you speak to anyone other than the patient for history (EMS, parent, family, police, friend...)? What history was obtained from this source @ -No Did you review nursing and triage notes (agree or disagree)? Why? @ -I reviewed and agree with nursing and triage notes Were old charts reviewed (outside hosp., previous admission, EMS record, old EKG, old radiological studies, urgent care reports/EKG's, penitentiary records)? Report findings @ -Reviewed old charts, and patient has been seen here numerous times this year for identical complaints. Most recent CT abdomen pelvis is from September of this year. Many CTs in the past. Differential Diagnosis (chest pain, altered mental status, abdominal pain women, abdominal pain men, vaginal bleeding, weakness, fever, dyspnea, syncope, headache, dizziness, GI bleed, back pain, seizure, CVA, palpatations, mental health, musculoskeletal)? @ -Chronic abdominal pain, malingering, chronic pain EKG interpreted by me (3pts min.). @ -None done X-rays interpreted by me (1pt min.). @ -None done CT interpreted by me (1pt min.). @ -None done U/S interpreted by me (1pt. min.). @ -None done What testing was considered but not performed or refused? (CT, X-rays, U/S, labs)? Why? @ -Considered imaging of the abdomen pelvis however as patient is here frequently for identical complaints with a remarkable number of CTs in the past, and laboratory studies being unremarkable, we both agreed to defer at this time as risks outweigh benefits. Patient was in agreement this plan. What meds were considered but not given or refused? Why? @ -None Did you discuss the management of the patient with other professionals (professionals i.e. , PA, [employer], lab, RT, psych nurse, social work professor, visual arts teacher, teacher, third officer, binder caser)? Give summary @ -No Was smoking cessation discussed for >3mins.? @ -No Was critical care preformed (if so, how long)? @ -No Were there social determinants of health that impacted care today? How? (Homelessness, low income, unemployed, alcoholism, drug addiction, transportation, low edu. Level, literacy, decrease access to med. care, [place] [facility], rehab)? @ -No Was there de-escalation of care discussed even if they declined (Discuss DNR or withdrawal of care, Hospice)? DNR status @ -No What co-morbidities impacted this encounter? (DM, HTN, Smoking, COPD, CAD, Cancer, CVA, ARF, Chemo, Hep., AIDS, mental health diagnosis, sleep apnea, morbid obesity)? @ -None Was patient admitted / discharged? Hospital course, mention meds given and route, prescriptions, significant lab abnormalities, going to OR and other pertinent info. @ -Based on patient's presentation physical exam, presents emergency department complaining of abdominal pain. This is chronic for the patient. Originally seen as a quick note and labs returned unremarkable. Patient has chronic anemia with a hemoglobin 10.1 which is stable for the patient. Vitals are within acceptable limits. I discussed at length with the patient that I do not believe that imaging is justified at this time and she was in agreement this plan. She will be given doses of her analgesic medications and instructions to follow-up with her heel painter. She was in agreement this plan. I instructed the patient to follow up with their PCP in the next 1-3 days. I explained that the patient should return to the emergency department if they experience any worsening symptoms. Strict return precautions were discussed with the patient. The patient expressed understanding of these instructions. I answered all questions that the patient had. The patient was discharged home in good condition with their prescriptions and follow up information. Undiagnosed new problem with uncertain prognosis? @ -No Drug Therapy requiring intensive monitoring for toxicity (Heparin, Nitro, Insulin, Cardizem)? @ -No Were any procedures done? @ -No Diagnosis/symptom? @ -Chronic abdominal pain Acute, or Chronic, or Acute on Chronic? @ -Chronic Uncomplicated (without systemic symptoms) or Complicated (systemic symptoms)? @ -Uncomplicated Side effects of treatment? @ -No Exacerbation, Progression, or Severe Exacerbation? @ -No Poses a threat to life or bodily function? How? (Chest pain, [place], [place], pneumonia, PE, COPD, DKA, ARF, appy, cholecystitis, CVA, Diverticulitis, Homicidal, Suicidal, threat to staff... and all critical care pts) @ -Unlikely at this time (Irvin Maciel) - Lab Data Lab Results 01/19/25 01/19/25 01/19/25 Range/Units 16:42 16:42 16:45 WBC 3.09 L (4.50-10.00) 10*3/uL RBC 3.23 L (4.10-5.20) 10*6/uL Hgb 10.1 L (12.0-15.0) g/dL Hct 30.2 L (37.2-46.3) % MCV 93.5 (80.0-97.0) fL MCH 31.3 (27.0-32.0) pg MCHC 33.4 (32.0-37.0) g/dL Plt Count 181 (140-440) 10*3/uL MPV 10.1 (9.5-12.2) fL Immature Gran % (Auto) 0.3 % Neutrophils % 52.8 % Lymphocytes % 37.2 % Monocytes % 8.4 % Eosinophils % 1.3 % Basophils % 0.0 % Immature Gran # 0.01 (0.00-0.04) 10*3/uL Neutrophils # 1.63 L (1.80-7.70) 10*3/uL Lymphocytes # 1.15 (0.90-5.00) 10*3/uL Monocytes # 0.26 (0.20-1.00) 10*3/uL Eosinophils # 0.04 (0.04-0.35) 10*3/uL Basophils # 0.00 (0.00-0.10) 10*3/uL Sodium 144 (137-145) mmol/L Potassium 3.9 (3.5-5.1) mmol/L Chloride 105 (98-107) mmol/L Carbon Dioxide 29 (22-30) mmol/L Anion Gap 10 mmol/L BUN 15 (7-17) mg/dL Creatinine 0.71 (0.52-1.04) mg/dL Est GFR (CKD-EPI)AfAm >90 (>60 ml/min/1.73 sqM) Est GFR (CKD-EPI)NonAf >90 (>60 ml/min/1.73 sqM) Glucose 102 H (74-99) mg/dL Calcium 9.8 (8.4-10.2) mg/dL Total Bilirubin 0.6 (0.2-1.3) mg/dL AST 21 (14-36) U/L ALT 13 (4-34) U/L Alkaline Phosphatase 67 (38-126) U/L Total Protein 6.7 (6.3-8.2) g/dL Albumin 4.2 (3.5-5.0) g/dL Lipase 31 (23-300) U/L Urine Color Colorless Urine Appearance Clear (Clear) Urine pH 7.0 (5.0-8.0) Ur Specific [place] 1.004 (1.001-1.035) Urine Protein Negative (Negative) Urine Glucose (UA) Negative (Negative) Urine Ketones Negative (Negative) Urine Blood Negative (Negative) Urine Nitrite Negative (Negative) Urine Bilirubin Negative (Negative) Urine Urobilinogen <2.0 (<2.0) mg/dL Ur Leukocyte Esterase Negative (Negative) Urine HCG, Qual (Not Detectd) 01/19/25 Range/Units 16:45 WBC (4.50-10.00) 10*3/uL RBC (4.10-5.20) 10*6/uL Hgb (12.0-15.0) g/dL Hct (37.2-46.3) % MCV (80.0-97.0) fL MCH (27.0-32.0) pg MCHC (32.0-37.0) g/dL Plt Count (140-440) 10*3/uL MPV (9.5-12.2) fL Immature Gran % (Auto) % Neutrophils % % Lymphocytes % % Monocytes % % Eosinophils % % Basophils % % Immature Gran # (0.00-0.04) 10*3/uL Neutrophils # (1.80-7.70) 10*3/uL Lymphocytes # (0.90-5.00) 10*3/uL Monocytes # (0.20-1.00) 10*3/uL Eosinophils # (0.04-0.35) 10*3/uL Basophils # (0.00-0.10) 10*3/uL Sodium (137-145) mmol/L Potassium (3.5-5.1) mmol/L Chloride (98-107) mmol/L Carbon Dioxide (22-30) mmol/L Anion Gap mmol/L BUN (7-17) mg/dL Creatinine (0.52-1.04) mg/dL Est GFR (CKD-EPI)AfAm (>60 ml/min/1.73 sqM) Est GFR (CKD-EPI)NonAf (>60 ml/min/1.73 sqM) Glucose (74-99) mg/dL Calcium (8.4-10.2) mg/dL Total Bilirubin (0.2-1.3) mg/dL AST (14-36) U/L ALT (4-34) U/L Alkaline Phosphatase (38-126) U/L Total Protein (6.3-8.2) g/dL Albumin (3.5-5.0) g/dL Lipase (23-300) U/L Urine Color Urine Appearance (Clear) Urine pH (5.0-8.0) Ur Specific [place] (1.001-1.035) Urine Protein (Negative) Urine Glucose (UA) (Negative) Urine Ketones (Negative) Urine Blood (Negative) Urine Nitrite (Negative) Urine Bilirubin (Negative) Urine Urobilinogen (<2.0) mg/dL Ur Leukocyte Esterase (Negative) Urine HCG, Qual Not Detected (Not Detectd) Disposition <Krishna Ortiz - Last Filed: 01/19/25 16:27> Is patient prescribed a controlled substance at d/c from ED?: No Time of Disposition: 18:25 <Irvin Maciel - Last Filed: 01/19/25 22:05> Clinical Impression: Chronic abdominal pain Disposition: HOME SELF-CARE Condition: Good Instructions (If sedation given, give patient instructions): Abdominal Pain (ED) Referrals: Christiano Gutierrez MD [Primary Care Provider] - 1-2 days
[2025-01-19 16:57] LABS: Basophils # (A) 0.00 10*3/uL (0.00-0.10); Basophils % (A) 0.0 %; Eosinophils # (A) 0.04 10*3/uL (0.04-0.35); Eosinophils % (A) 1.3 %; HCT 30.2 % (37.2-46.3); HGB 10.1 g/dL (12.0-15.0); Lymphocytes # (A) 1.15 10*3/uL (0.90-5.00); Lymphocytes % (A) 37.2 %; MCH 31.3 pg (27.0-32.0); MCHC 33.4 g/dL (32.0-37.0); MCV 93.5 fL (80.0-97.0); Monocytes # (A) 0.26 10*3/uL (0.20-1.00); Monocytes % (A) 8.4 %; Neutrophils # (A) 1.63 10*3/uL (1.80-7.70); Neutrophils % (A) 52.8 %; Platelet Count 181 10*3/uL (140-440); RBC 3.23 10*6/uL (4.10-5.20); RDW 13.0 % (11.5-14.5); WBC 3.09 10*3/uL (4.50-10.00)
[2025-01-19 17:01] LABS: Bilirubin,Urine Negative (Negative); Blood,Urine Negative (Negative); Color,Urine Colorless; Glucose,Urine (UA) Negative (Negative); Ketones,Urine Negative (Negative); Leukocyte Esterase,Urine Negative (Negative); Nitrite,Urine Negative (Negative); PH, Urine 7.0 (5.0-8.0); Protein,Urine Negative (Negative); Specific Gravity,Urine 1.004 (1.001-1.035); Urobilinogen,Urine <2.0 mg/dL (<2.0)
[2025-01-19 17:14] LABS: ALT 13 U/L (4-34); AST 21 U/L (14-36); African American GFR (CKD) >90 (>60 ml/min/1.73 sqM); Albumin 4.2 g/dL (3.5-5.0); Alkaline Phosphatase 67 U/L (38-126); Anion Gap 10 mmol/L; Blood Urea Nitrogen 15 mg/dL (7-17); Calcium 9.8 mg/dL (8.4-10.2); Carbon Dioxide 29 mmol/L (22-30); Chloride 105 mmol/L (98-107); Glucose 102 mg/dL (74-99); Lipase 31 U/L (23-300); Non-African American GFR(CKD) >90 (>60 ml/min/1.73 sqM); Potassium 3.9 mmol/L (3.5-5.1); Sodium 144 mmol/L (137-145); Total Protein 6.7 g/dL (6.3-8.2)
[2025-01-19] MEDS: ORPHENADRINE 30 MG/ML 2 ML VIAL IM STA (18:34)
[2025-01-19] MEDS: HYDROmorphone 1 MG/ML 1 ML SYRINGE IM STA (18:34)
== END 2025-01-19 18:49 | disposition home or self-care (01) ==
LOC: EC 15:45
DX: G89.29 Other chronic pain (principal); R10.11 Right upper quadrant pain; Z88.0 Allergy status to penicillin; Z88.1 Allergy status to other antibiotic agents; Z88.2 Allergy status to sulfonamides; Z91.048 Other nonmedicinal substance allergy status; Z88.8 Allergy status to other drugs, medicaments and biological substances
CPT/HCPCS: 36415; 80053; 83690; 85025; 81003; 81025; 99284; 96372 ×2; J8540; J2360; J1171

== ENCOUNTER 2025-01-19 23:06 | Emergency (ER) | payer OTHER ==
--- NOTE | 2025-01-20 00:24 | ED ---
General Adult HPI - General Chief complaint: Abdominal Pain Stated complaint: Abd pain Time Seen by Provider: 01/19/25 23:25 Source: patient Mode of arrival: ambulatory Limitations: no limitations - History of Present Illness Initial comments: Patient is a 34-year-old female, well-known to this emergency department, history IBS, multiple prior abdominal surgeries presenting today for right sided rib and abdominal pain. Ongoing since this morning. Associated nausea with 4 episodes of nonbloody nonbilious emesis. Denies additional chest pain or shor tness of breath, no fevers. Endorses chills. Denies dysuria, hematuria or urinary frequency. Denies melena, hematochezia, diarrhea or constipation. Has had 2 large BMs yesterday. Took her gabapentin. States she was given Dilaudid and Norflex this morning without any improvement in pain. States that she is out of her Percocet and has a refill due in 2 days. - Related Data Home Medications Medication Instructions Recorded Confirmed Budesonide/Formoterol Fumarate 2 puff INHALATION RT-BID 09/02/24 09/24/24 [Symbicort 160-4.5 Mcg Inhaler] Escitalopram Oxalate [Lexapro] 20 mg PO HS 09/02/24 09/24/24 Gabapentin [Neurontin] 200 mg PO TID 09/02/24 09/24/24 HYDROcodone/APAP 10-325MG [[place] 1 tab PO TID PRN 09/02/24 09/24/24 10-325] Omeprazole [PriLOSEC] 40 mg PO HS 09/02/24 09/24/24 ondansetron HCL [Zofran] 8 mg PO Q12HR PRN 09/02/24 09/24/24 Ibuprofen 800 mg PO DAILY PRN 09/24/24 09/24/24 Previous Rx's Medication Instructions Recorded Prochlorperazine [Compazine] 10 mg PO Q6H #15 tab 10/01/24 Nitrofurantoin Monohyd/M-Cryst 100 mg PO Q12HR #10 cap 10/09/24 [Macrobid] Ciprofloxacin HCl [Cipro] 500 mg PO BID 7 Days #14 tab 10/18/24 Allergies Allergy/AdvReac Type Severity Reaction Status Date / Time sulfamethoxazole Allergy Severe Anaphylaxis Verified 01/19/25 23:19 [From Bactrim] trimethoprim [From Bactrim] Allergy Severe Anaphylaxis Verified 01/19/25 23:19 adhesive tape Allergy Rash/Hives Verified 01/19/25 23:19 aloe vera Allergy Rash/Hives Verified 01/19/25 23:19 amoxicillin [From Augmentin] Allergy Itching Verified 01/19/25 23:19 azithromycin Allergy Rash/Hives Verified 01/19/25 23:19 cephalexin Allergy Rash/Hives Verified 01/19/25 23:19 clavulanic acid Allergy Itching Verified 01/19/25 23:19 [From Augmentin] metronidazole [From Flagyl] Allergy Rash/Hives Verified 01/19/25 23:19 Penicillins Allergy Rash/Hives Verified 01/19/25 23:19 alprazolam [From Xanax] AdvReac MAKES Verified 01/19/25 23:19 PARANOID dicyclomine [From Bentyl] AdvReac constipatio Verified 01/19/25 23:19 n Review of Systems ROS Statement: Those systems with pertinent positive or pertinent negative responses have been documented in the HPI. ROS Other: All systems not noted in ROS Statement are negative. Past Medical History Past Medical History: Blood Disorder, GERD/Reflux Additional Past Medical History / Comment(s): Endometriosis, polycystic ovarian syndrome. IRON DEFICIENCY ANEMIA. Stomach Ulcer. Hx ovarian cyst.IBS History of Any Multi-Drug Resistant Organisms: None Reported Past Surgical History: Ablation, Appendectomy, Section, Cholecystectomy, Hernia Repair, Hysterectomy, Tubal Ligation, Uterine Ablation Additional Past Surgical History / Comment(s): Laparoscopy X2, Section X3, right ovary and right tube removed, then total hysterectomy including left ovary and left fallopian tube, cyst removed from chest, ADHESION REMOVAL FROM PAST CSECTION, vaginal/pelvic biopsy. Scar tissure removal abdomen L upper lower Past Anesthesia/Blood Transfusion Reactions: No Reported Reaction Past Psychological History: Anxiety, Depression Smoking Status: Never smoker Past Alcohol Use History: Occasional Past Drug Use History: None Reported - Past Family History Mother Family Medical History: Deep Vein Thrombosis (DVT), Hyperlipidemia Additional Family Medical History / Comment(s): Depression and anxiety. DVT to arm after surgery. General Exam - General Exam Comments Initial Comments: PE: CONSTITUTIONAL: No apparent distress, well appearing SKIN: Warm, dry, no jaundice, hives or petechiae EYES: Pupils are equally round, extraocular movements intact without nystagmus, clear conjunctiva, non-icteric sclera HENT: Normocephalic, atraumatic, moist mucus membranes, oropharynx clear without exudates NECK: , Full range of motion, normal appearance PULMONARY: Clear to auscultation without wheezes, rhonchi, or rales, normal excursion, no accessory muscle use and no stridor. Reproducible tenderness palpation of the right costochondral junctio CARDIOVASCULAR: Regular rate, rhythm, normal S1 and S2. No appreciated murmurs, rubs or gallops. Strong radial pulses with intact distal perfusion. No lower extremity edema GASTROINTESTINAL: Soft, active bowel sounds throughout, minimal TTP RUQ/just i nferior to right ribs, non-distended, no palpable masses, no rebound or guarding. No hepatosplenomegaly, -CVA TTP GENITOURINARY: MUSCULOSKELETAL: Extremities have no gross deformity, no edema, redness, or swelling. NEUROLOGIC:_a/o x 3, GCS 15, normal mentation and speech. Moves all extremities x 4 without motor or sensory deficit PSYCHIATRIC:_normal mood and affect, thought process is clear and linear Limitations: no limitations Course Vital Signs 01/19/25 01/20/25 23:19 03:11 Temperature 98.6 F 97.8 F Pulse Rate 97 79 Respiratory 16 19 Rate Blood Pressure 139/86 131/79 O2 Sat by Pulse 96 99 Oximetry EKG Findings - EKG Comments: EKG Findings:: Sinus rhythm, rate 75 bpm, intervals within acceptable limits, no significant ST elevations or depressions Medical Decision Making - Medical Decision Making Was pt. sent in by a medical professional or institution (Dr. PA, HANDKERCHIEF PRESSER, urgent care, hospital, or group home...) When possible be specific @ -No Did you speak to anyone other than the patient for history (EMS, parent, family, police, friend...)? What history was obtained from this source @ -No Did you review nursing and triage notes (agree or disagree)? Why? @ -I reviewed nursing and triage notes-agree with triage note Were old charts reviewed (outside hosp., previous admission, EMS record, old EKG, old radiological studies, urgent care reports/EKG's, group home records)? Report findings @ -Medical records reviewed-Patient has been seen in the ER multiple times in the last week and a half alone for similar complaint, seen on 01/15/25 for abdominal pain radiating to the right flank, 01/17/2025 for similar and 01/19/2025 for similar, patient's labs during these evaluations have been overall reassuring. She is typically given Dilaudid and discharged home after i mprovement of pain. Differential Diagnosis (chest pain, altered mental status, abdominal pain women, abdominal pain men, vaginal bleeding, weakness, fever, dyspnea, syncope, headache, dizziness, GI bleed, back pain, seizure, CVA, palpatations, mental health, musculoskeletal)? @ -Differential Abdominal Pain Women: Appendicitis, Cholecystitis, diverticulosis, ischemic bowel, pancreatitis, hepatitis, UTI, gastroenteritis, AAA, incarcerated hernia, bowel obstruction, constipation, inflammatory bowel, hepatitis, peptic ulcer disease, splenic infarction, perforated viscus, vulvitis, ovarian torsion, PID, kidney stone, placenta abruption, this is not meant to be an all-inclusive list Given this is consistent with patient's chronic pain with exception of no radiation towards the right flank, I have very low suspicion for acute surgical process. Given stable vital signs, patient afebrile and overall reassuring labs I do not feel further abdominal imaging such as CT abdomen pelvis warranted at this point given patient has had multiple prior CTs I do not feel risk of further radiation exposure outweighs any potential benefit. EKG interpreted by me (3pts min.). @ -As above X-rays interpreted by me (1pt min.). @Personally reviewed x-ray of the ribs/chest, I see no evidence of pleural effusions, consolidations or rib fracture agree with radiologist interpretation CT interpreted by me (1pt min.). @ -None done U/S interpreted by me (1pt. min.). @ -None done What testing was considered but not performed or refused? (CT, X-rays, U/S, labs)? Why? @As noted above, CT Abdo pelvis was considered however please see reasoning above as to why CT was not obtained. US RUQ was considered however LFTs wnl, patient has had prior cholecystectomy D-dimer was considered however patient was PERC rule negative and Wells score 0 What meds were considered but not given or refused? Why? @ -Lidocaine patch was considered however pt declined Did you discuss the management of the patient with other professionals (professionals i.e. , PA, HANDKERCHIEF PRESSER, lab, RT, psych nurse, addiction social worker, art educator, teacher, police booking officer, case filler)? Give summary @ -No Was smoking cessation discussed for >3mins.? @ -No Was critical care preformed (if so, how long)? @ -No Were there social determinants of health that impacted care today? How? (Homelessness, low income, unemployed, alcoholism, drug addiction, transport ation, low edu. Level, literacy, decrease access to med. care, half-way, rehab)? @ -No Was there de-escalation of care discussed even if they declined (Discuss DNR or withdrawal of care, Hospice)? @ -No What co-morbidities impacted this encounter? (DM, HTN, Smoking, COPD, CAD, Cancer, CVA, ARF, Chemo, Hep., AIDS, mental health diagnosis, sleep apnea, morbid obesity)? @ -PCOS, chronic abdominal pain/ Chronic pain Was patient admitted / discharged? Hospital course, mention meds given and route, prescriptions, significant lab abnormalities, going to OR and other pertinent info. Met Discharged- Patient is a 34-year-old female well-known as emergency department, chronic pain presenting today for abdominal pain radiating to right ribs. Pain in abdomen and pelvis are chronic, radiation to right ribs/ flank is new since aprox 1 week ago. Vital signs are stable on arrival, pt afebrile and not tach ycardic. Patient was seen again earlier this morning for similar. Patient was initially seen and assessed in the waiting room due to ED at overflow capacity. I obtained patient's permission to perform her assessment in the waiting room. Exam is significant for reproducible tenderness to the right costochondral junction as well as minimal tenderness over the right upper quadrant just inferior to this region. Discussed with patient plan for labs, x-ray of the ribs, Norflex, Toradol and gabapentin. Per patient, she is due for refill of her Percocet in 2 days. I am concerned patient is abusing due to multiple visits where she presents for chronic pain and is out of her opioid prescriptions b efore they are due for refill. I did discuss this with her and for this reason further narcotics will not be administered today. Patient understanding and agreeable. Of note, on [facility] review, patient filled a prescription for 75 tablets, 30 days worth of oxycodone-acetaminophen 7.5-325 mg on 12/25/24. Pt is now out of her percocet. Labs and imaging reviewed. Grossly within normal limits. Abnormal values not concerning for acute pathology related to presenting complaint. Patient will be discharged home due to reassuring VS, labs and chronicity of complaints. Patient denied permanent pain however on my reassessment she is resting comfortably, looking through her cell phone. She does not appear to be in any acute distress. I discussed with her that she will need to follow with her primary care doctor and pain management doctor regarding her chronic pain. I offered her a lidocaine patch however she states she is tried this at home and declined this. Discussed with her signs symptoms warranting return to the ER such as failure of symptoms to improve in the next 48 hours, fevers, coughing up blood, unable to keep down fluids and should she experiences symptoms or further concerns for her wellbeing. In my medical judgment there is currently no evidence of an immediate life-threa tening or surgical condition. Discharge is therefore indicated at this time. Discharge treatment instructions, follow up instructions, and appropriate emergency department return precautions were discussed with the patient and/or medical decision maker. Patient and/or medical decision maker expressed understanding of and agreed with the treatment plan, follow up instructions, and emergency department return precaution. All patient's and/or medical decision maker's questions were answered. The patient was instructed to return to the ED for any changes in symptoms, persistent symptoms, inability to obtain proper follow-up or for any further concerns. Patient received verbal and written instructions for this condition. Undiagnosed new problem with uncertain prognosis? @ -No Drug Therapy requiring intensive monitoring for toxicity (Heparin, Nitro, Insulin, Cardizem)? @ -No Were any procedures done? @ -No Diagnosis/symptom? Right sided abdominal pain, acute on chronic Acute, or Chronic, or Acute on Chronic? Acute on chronic Uncomplicated (without systemic symptoms) or Complicated (systemic symptoms)? @ uncomplicated Side effects of treatment? @ -No Exacerbation, Progression, or Severe Exacerbation? @ -No Poses a threat to life or bodily function? How? (Chest pain, [place], [place], pneumonia, PE, COPD, DKA, ARF, appy, cholecystitis, CVA, Diverticulitis, Homicidal, Suicidal, threat to staff... and all critical care pts) @ -No - Lab Data Result diagrams: 01/20/25 01:21 01/20/25 01:21 Lab Results 01/20/25 01/20/25 01/20/25 Range/Units 01:14 01:21 01:21 WBC 4.47 L (4.50-10.00) 10*3/uL RBC 3.27 L (4.10-5.20) 10*6/uL Hgb 10.1 L (12.0-15.0) g/dL Hct 30.5 L (37.2-46.3) % MCV 93.3 (80.0-97.0) fL MCH 30.9 (27.0-32.0) pg MCHC 33.1 (32.0-37.0) g/dL Plt Count 191 (140-440) 10*3/uL MPV 10.6 (9.5-12.2) fL Immature Gran % (Auto) 0.2 % Neutrophils % 87.5 % Lymphocytes % 11.0 % Monocytes % 1.3 % Eosinophils % 0.0 % Basophils % 0.0 % Immature Gran # 0.01 (0.00-0.04) 10*3/uL Neutrophils # 3.91 (1.80-7.70) 10*3/uL Lymphocytes # 0.49 L (0.90-5.00) 10*3/uL Monocytes # 0.06 L (0.20-1.00) 10*3/uL Eosinophils # 0.00 L (0.04-0.35) 10*3/uL Basophils # 0.00 (0.00-0.10) 10*3/uL Sodium 141 (137-145) mmol/L Potassium 4.3 (3.5-5.1) mmol/L Chloride 104 (98-107) mmol/L Carbon Dioxide 24 (22-30) mmol/L Anion Gap 13 mmol/L BUN 18 H (7-17) mg/dL Creatinine 0.58 (0.52-1.04) mg/dL Est GFR (CKD-EPI)AfAm >90 (>60 ml/min/1.73 sqM) Est GFR (CKD-EPI)NonAf >90 (>60 ml/min/1.73 sqM) Glucose 153 H (74-99) mg/dL Calcium 10.0 (8.4-10.2) mg/dL Total Bilirubin 0.3 (0.2-1.3) mg/dL AST 20 (14-36) U/L ALT 15 (4-34) U/L Alkaline Phosphatase 77 (38-126) U/L Total Protein 7.0 (6.3-8.2) g/dL Albumin 4.3 (3.5-5.0) g/dL Lipase 46 (23-300) U/L Urine Color Colorless Urine Appearance Clear (Clear) Urine pH 6.0 (5.0-8.0) Ur Specific [place] 1.013 (1.001-1.035) Urine Protein Negative (Negative) Urine Glucose (UA) Negative (Negative) Urine Ketones Negative (Negative) Urine Blood Negative (Negative) Urine Nitrite Negative (Negative) Urine Bilirubin Negative (Negative) Urine Urobilinogen <2.0 (<2.0) mg/dL Ur Leukocyte Esterase Small H (Negative) Urine RBC <1 (0-5) /hpf Urine WBC 5 (0-5) /hpf Ur Squamous Epith Cells <1 (0-4) /hpf Urine Mucus Rare H (None) /hpf Disposition Clinical Impression: Abdominal pain, Opioid abuse Disposition: HOME SELF-CARE Condition: Good Instructions (If sedation given, give patient instructions): Abdominal Pain (ED) Additional Instructions: Every disease is a spectrum and a small chance still exists that a serious condition could develop, for this reason, please monitor yourself closely for new, changing or worsening symptoms, symptoms that persist beyond 48 hours, coughing up blood, difficulty in breathing, worsening pain, black or bloody stools, fever, inability to tolerate/keep down fluids or your medications, inability to follow up with outpatient providers as instructed and should you experience these symptoms or should you have any further concerns for your wellbeing please return to the ED or call 911 immediately. PLEASE call your primary care physician as soon as possible to arrange / discuss plan for followup appointment. Appointment in the next 1-3 days is strongly encouraged if possible. PLEASE let us know here before you leave if there is anything further we can do to be of any assistance. Take care and feel Better! Is patient prescribed a controlled substance at d/c from ED?: No Referrals: Christiano Gutierrez MD [Primary Care Provider] - 1-2 days
[2025-01-20] MEDS: GABAPENTIN 300 MG CAP PO STA (01:49)
[2025-01-20] MEDS: ORPHENADRINE 30 MG/ML 2 ML VIAL IM STA (01:55)
[2025-01-20 01:56] LABS: Basophils # (A) 0.00 10*3/uL (0.00-0.10); Basophils % (A) 0.0 %; Eosinophils # (A) 0.00 10*3/uL (0.04-0.35); Eosinophils % (A) 0.0 %; HCT 30.5 % (37.2-46.3); HGB 10.1 g/dL (12.0-15.0); Lymphocytes # (A) 0.49 10*3/uL (0.90-5.00); Lymphocytes % (A) 11.0 %; MCH 30.9 pg (27.0-32.0); MCHC 33.1 g/dL (32.0-37.0); MCV 93.3 fL (80.0-97.0); Monocytes # (A) 0.06 10*3/uL (0.20-1.00); Monocytes % (A) 1.3 %; Neutrophils # (A) 3.91 10*3/uL (1.80-7.70); Neutrophils % (A) 87.5 %; Platelet Count 191 10*3/uL (140-440); RBC 3.27 10*6/uL (4.10-5.20); RDW 12.9 % (11.5-14.5); WBC 4.47 10*3/uL (4.50-10.00)
[2025-01-20] MEDS: KETOROLAC 15 MG/ML 1 ML VIAL IM STA (01:56)
--- NOTE | 2025-01-20 02:17 | XR ---
EXAM: XR Bilateral Ribs and AP Chest, 3 or More Views CLINICAL HISTORY: XR Reason: right rib pain, no trauma TECHNIQUE: Frontal and oblique views of the bilateral ribs and frontal view of the chest. COMPARISON: No relevant prior studies available. FINDINGS: Lungs: Unremarkable. No consolidation. Pleural space: Unremarkable. No pneumothorax. Heart: Unremarkable. No cardiomegaly. Mediastinum: Unremarkable. Normal mediastinal contour. Bones/joints: Unremarkable. No acute fracture. Upper abdomen: Cholecystectomy clips of the right upper quadrant of the abdomen. IMPRESSION: No acute findings in the chest or bilateral ribs.
[2025-01-20 02:21] LABS: Bilirubin,Urine Negative (Negative); Blood,Urine Negative (Negative); Color,Urine Colorless; Glucose,Urine (UA) Negative (Negative); Ketones,Urine Negative (Negative); Leukocyte Esterase,Urine Small (Negative); Mucus,Urine Rare /hpf; Nitrite,Urine Negative (Negative); PH, Urine 6.0 (5.0-8.0); Protein,Urine Negative (Negative); RBC,Urine <1 /hpf (0-5); Specific Gravity,Urine 1.013 (1.001-1.035); Squamous Epithelial Cell,Urine <1 /hpf (0-4); Urobilinogen,Urine <2.0 mg/dL (<2.0); WBC,Urine 5 /hpf (0-5)
[2025-01-20 02:25] LABS: ALT 15 U/L (4-34); AST 20 U/L (14-36); African American GFR (CKD) >90 (>60 ml/min/1.73 sqM); Albumin 4.3 g/dL (3.5-5.0); Alkaline Phosphatase 77 U/L (38-126); Anion Gap 13 mmol/L; Blood Urea Nitrogen 18 mg/dL (7-17); Calcium 10.0 mg/dL (8.4-10.2); Carbon Dioxide 24 mmol/L (22-30); Chloride 104 mmol/L (98-107); Glucose 153 mg/dL (74-99); Lipase 46 U/L (23-300); Non-African American GFR(CKD) >90 (>60 ml/min/1.73 sqM); Potassium 4.3 mmol/L (3.5-5.1); Sodium 141 mmol/L (137-145); Total Protein 7.0 g/dL (6.3-8.2)
[2025-01-20 03:12] VITALS: BP 131/79; PULSE 79; RESP 19; TEMP 97.8
== END 2025-01-20 03:11 | disposition home or self-care (01) ==
LOC: EC 23:06
DX: F11.10 Opioid abuse, uncomplicated (principal); Z88.0 Allergy status to penicillin; Z88.1 Allergy status to other antibiotic agents; Z88.2 Allergy status to sulfonamides; Z88.8 Allergy status to other drugs, medicaments and biological substances
CPT/HCPCS: 36415; 93005; 80053; 83690; 85025; 81001; 71111; 99284; 96372 ×2; J2360; J1885

== ENCOUNTER 2025-01-25 22:47 | Emergency (ER) | payer OTHER ==
[2025-01-25 22:52] VITALS: RESP 16
[2025-01-26] MEDS: oxyCODONE-APAP 10-325MG 1 EACH TAB PO STA (00:48)
[2025-01-26] MEDS: TAMSULOSIN 0.4 MG CAP.ER.24H PO STA (00:48)
--- NOTE | 2025-01-26 00:55 | XR ---
EXAM: XR Abdomen, 1 View CLINICAL HISTORY: ITS.REASON XR Reason: difficulty urinating TECHNIQUE: Frontal supine view of the abdomen/pelvis. COMPARISON: No relevant prior studies available. FINDINGS: Gastrointestinal tract: Moderate fecal retention, correlate for constipation. No dilation. Cholecystectomy clips. Bones/joints: Unremarkable. IMPRESSION: Moderate fecal retention, correlate for constipation.
--- NOTE | 2025-01-26 00:56 | ED ---
General Adult HPI - General Chief complaint: Urogenital Stated complaint: pelvic pain and unable to urinate Time Seen by Provider: 01/25/25 22:53 Source: patient Mode of arrival: ambulatory Limitations: no limitations - History of Present Illness Initial comments: Patient is a 34-year-old female with a past medical history of IBS, chronic abdominal and pelvic pain presenting today for difficulty urinating. Patient states throughout the day today she is feels she has not been able to urinate. She feels she has been straining to urinate. Denies burning or discharge from her urethra or vaginal bleeding or discharge. Denies fevers, chest pain, shortness of breath, changes from her chronic abdominal pain. Does note lower pelvic pain but again this is chronic for her. Notes lower abdominal pressure. She denies diarrhea or constipation. States she has daily bowel movements. Patient denies any new back pain, recent falls or back injuries, or saddle anesthesia. - Related Data Home Medications Medication Instructions Recorded Confirmed Budesonide/Formoterol Fumarate 2 puff INHALATION RT-BID 09/02/24 09/24/24 [Symbicort 160-4.5 Mcg Inhaler] Escitalopram Oxalate [Lexapro] 20 mg PO HS 09/02/24 09/24/24 Gabapentin [Neurontin] 200 mg PO TID 09/02/24 09/24/24 HYDROcodone/APAP 10-325MG [Brainard 1 tab PO TID PRN 09/02/24 09/24/24 10-325] Omeprazole [PriLOSEC] 40 mg PO HS 09/02/24 09/24/24 ondansetron HCL [Zofran] 8 mg PO Q12HR PRN 09/02/24 09/24/24 Ibuprofen 800 mg PO DAILY PRN 09/24/24 09/24/24 Previous Rx's Medication Instructions Recorded Prochlorperazine [Compazine] 10 mg PO Q6H #15 tab 10/01/24 Nitrofurantoin Monohyd/M-Cryst 100 mg PO Q12HR #10 cap 10/09/24 [Macrobid] Ciprofloxacin HCl [Cipro] 500 mg PO BID 7 Days #14 tab 10/18/24 Allergies Allergy/AdvReac Type Severity Reaction Status Date / Time sulfamethoxazole Allergy Severe Anaphylaxis Verified 01/25/25 22:52 [From Bactrim] trimethoprim [From Bactrim] Allergy Severe Anaphylaxis Verified 01/25/25 22:52 adhesive tape Allergy Rash/Hives Verified 01/25/25 22:52 aloe vera Allergy Rash/Hives Verified 01/25/25 22:52 amoxicillin [From Augmentin] Allergy Itching Verified 01/25/25 22:52 azithromycin Allergy Rash/Hives Verified 01/25/25 22:52 cephalexin Allergy Rash/Hives Verified 01/25/25 22:52 clavulanic acid Allergy Itching Verified 01/25/25 22:52 [From Augmentin] metronidazole [From Flagyl] Allergy Rash/Hives Verified 01/25/25 22:52 Penicillins Allergy Rash/Hives Verified 01/25/25 22:52 alprazolam [From Xanax] AdvReac MAKES Verified 01/25/25 22:52 PARANOID dicyclomine [From Bentyl] AdvReac constipatio Verified 01/25/25 22:52 n Review of Systems ROS Statement: Those systems with pertinent positive or pertinent negative responses have been documented in the HPI. ROS Other: All systems not noted in ROS Statement are negative. Past Medical History Past Medical History: Blood Disorder, GERD/Reflux Additional Past Medical History / Comment(s): Endometriosis, polycystic ovarian syndrome. IRON DEFICIENCY ANEMIA. Stomach Ulcer. Hx ovarian cyst.IBS History of Any Multi-Drug Resistant Organisms: None Reported Past Surgical History: Ablation, Appendectomy, Section, Cholecystectomy, Hernia Repair, Hysterectomy, Tubal Ligation, Uterine Ablation Additional Past Surgical History / Comment(s): Laparoscopy X2, Section X3, right ovary and right tube removed, then total hysterectomy including left ovary and left fallopian tube, cyst removed from chest, ADHESION REMOVAL FROM PAST CSECTION, vaginal/pelvic biopsy. Scar tissure removal abdomen L upper lower Past Anesthesia/Blood Transfusion Reactions: No Reported Reaction Past Psychological History: Anxiety, Depression Smoking Status: Never smoker Past Alcohol Use History: Occasional Past Drug Use History: None Reported - Past Family History Mother Family Medical History: Deep Vein Thrombosis (DVT), Hyperlipidemia Additional Family Medical History / Comment(s): Depression and anxiety. DVT to arm after surgery. General Exam - General Exam Comments Initial Comments: PE: CONSTITUTIONAL: No apparent distress, well appearing SKIN: Warm, dry, no jaundice, hives or petechiae EYES: Pupils are equally round, extraocular movements intact without nystagmus, clear conjunctiva, non-icteric sclera HENT: Normocephalic, atraumatic, moist mucus membranes, oropharynx clear without exudates NECK: , Full range of motion, normal appearance PULMONARY: Clear to auscultation without wheezes, rhonchi, or rales, normal excursion, no accessory muscle use and no stridor CARDIOVASCULAR: Regular rate, rhythm, normal S1 and S2. No appreciated murmurs, rubs or gallops. Extremities are well-perfused no lower extremity edema GASTROINTESTINAL: Soft, active bowel sounds throughout, non-tender, non- distended, no palpable masses, no rebound or guarding. No hepatosplenomegaly, no CVA tenderness GENITOURINARY: MUSCULOSKELETAL: Extremities have no gross deformity, no edema, redness, or swelling. No midline spinal tenderness palpation NEUROLOGIC:_a/o x 3, GCS 15, normal mentation and speech. Moves all extremities x 4 without motor or sensory deficit PSYCHIATRIC:_normal mood and affect, thought process is clear and linear Limitations: no limitations Course Vital Signs 01/25/25 01/26/25 22:50 01:30 Temperature 98 F 98.1 F Pulse Rate 90 65 Respiratory 16 16 Rate Blood Pressure 162/104 124/86 O2 Sat by Pulse 98 99 Oximetry Medical Decision Making - Medical Decision Making Was pt. sent in by a medical professional or institution ([facility], [employer], urgent care, hospital, or fdc...) When possible be specific @ -No Did you speak to anyone other than the patient for history (EMS, parent, family, police, friend...)? What history was obtained from this source @ -No Did you review nursing and triage notes (agree or disagree)? Why? @ -I reviewed and agree with nursing and triage notes Were old charts reviewed (outside hosp., previous admission, EMS record, old EKG, old radiological studies, urgent care reports/EKG's, fdc records)? Report findings @ -Medical records reviewed-patient has frequent ED visits, typically presenting for chronic abdominal pain, Patient had an x-ray KUB done on 12/11/2024, showed nonobstructive bowel gas pattern Differential Diagnosis (chest pain, altered mental status, abdominal pain women, abdominal pain men, vaginal bleeding, weakness, fever, dyspnea, syncope, headache, dizziness, GI bleed, back pain, seizure, CVA, palpatations, mental health, musculoskeletal)? @ -Differential diagnosis remains broad over top considerations include urinary tract infection, ureterolithiasis, urinary tract obstruction secondary to constipation, neurogenic bladder this is not all-inclusive list EKG interpreted by me (3pts min.). @ -As above X-rays interpreted by me (1pt min.). @ -None done CT interpreted by me (1pt min.). @ -None done U/S interpreted by me (1pt. min.). @ -None done What testing was considered but not performed or refused? (CT, X-rays, U/S, labs)? Why? @ -None What meds were considered but not given or refused? Why? @ -None Did you discuss the management of the patient with other professionals (professionals i.e. , PA, [employer] ADVERTISER, lab, RT, psych nurse, social services coordinator, probate lawyer, teacher, business enterprise officer, high risk case manager)? Give summary @ -No Was smoking cessation discussed for >3mins.? @ -No Was critical care preformed (if so, how long)? @ -No Were there social determinants of health that impacted care today? How? (Homelessness, low income, unemployed, alcoholism, drug addiction, transportation, low edu. Level, literacy, decrease access to med. care, shelter, rehab)? @ -No Was there de-escalation of care discussed even if they declined (Discuss DNR or withdrawal of care, Hospice)? @ -No What co-morbidities impacted this encounter? (DM, HTN, Smoking, COPD, CAD, Cancer, CVA, ARF, Chemo, Hep., AIDS, mental health diagnosis, sleep apnea, morbid obesity)? @IBS, chronic abdominal pain Was patient admitted / discharged? Hospital course, mention meds given and route, prescriptions, significant lab abnormalities, going to OR and other pertinent info. @[id number]-old female presenting today for difficulty urinating. Idris copeland initially seen and assessed in the waiting room in order to expedite her care. I obtained patient's permission to obtain history and perform initial assessment in the waiting room. She was agreeable. Discussed with patient plan for UA, will obtain bladder scan. Discussed with patient if she is unable to urinate we will obtain straight cath urine sample versus place Devi catheter. Patient agreeable with this. Of note on exam abdomen is soft nontender without palpable masses. No midline spinal tenderness to palpation, no CVA tenderness. Bladder scan [id number] cc of urine in the patient's bladder. A straight cath urine sample was obtained. Patient was given Flomax and her home pain medications. X-ray KUB was obtained. Showed findings consistent with constipation. Urinalysis showed no signs of blood or infection. Patient states she was able to urinate spontaneously after straight cath urine sample was obtained. I updated patient to UA and imaging findings. We discussed symptomatic care of constipation including laxative use such as Dulcolax, senna or MiraLAX use daily to achieve soft stools the consistency of wet sand. Patient was cautioned to use these only once daily and only as needed in order to avoid exacerbating her IBS. Patient understanding of this. We discussed signs and symptoms warranting return to the ER such as return of symptoms, dysuria, fevers and should she experience the symptoms should return to the immediately. Patient was also noted to be hypertensive on arrival with blood pressure 162/104. She denies chest pain or shortness of breath. Has no focal neurodeficits. I discussed this with the patient. We discussed the importance following up with her PCP for recheck of her blood pressure and close monitoring. Additionally patient was advised to return to the ER should she have any chest pain, shortness of breath, lower extremity swelling or strokelike symptoms. Patient agreeable plan of care, all questions were answered and she was discharged in good condition. In my medical judgment there is currently no evidence of an immediate life- threatening or surgical condition. Discharge is therefore indicated at this time. Discharge treatment instructions, follow up instructions, and appropriate emergency department return precautions were discussed with the patient and/or medical decision maker. Patient and/or medical decision maker expressed understanding of and agreed with the treatment plan, follow up instructions, and emergency department return precaution. All patient's and/or medical decision maker's questions were answered. The patient was advised that a small risk still exists that a serious condition could develop and was therefore instructed to return to the ED for any changes in symptoms, persistent symptoms, inability to obtain proper follow-up or for any further concerns. Patient received verbal and written instructions for this condition. Undiagnosed new problem with uncertain prognosis? @ -No Drug Therapy requiring intensive monitoring for toxicity (Heparin, Nitro, Insulin, Cardizem)? @ -No Were any procedures done? @ -No Diagnosis/symptom? @acute urinary retention, constipation, hypertension Acute, or Chronic, or Acute on Chronic? @ -[Acute Uncomplicated (without systemic symptoms) or Complicated (systemic symptoms)? @Uncomplicated Side effects of treatment? @ -No Exacerbation, Progression, or Severe Exacerbation? @ -No Poses a threat to life or bodily function? How? (Chest pain, [place], PR, pneumonia, PE, COPD, DKA, ARF, appy, cholecystitis, CVA, Diverticulitis, Homicidal, Suici tabitha, threat to staff... and all critical care pts) @ -No - Lab Data Lab Results 01/26/25 Range/Units 00:37 Urine Color Colorless Urine Appearance Clear (Clear) Urine pH 6.0 (5.0-8.0) Ur Specific [place] 1.011 (1.001-1.035) Urine Protein Negative (Negative) Urine Glucose (UA) Negative (Negative) Urine Ketones Negative (Negative) Urine Blood Negative (Negative) Urine Nitrite Negative (Negative) Urine Bilirubin Negative (Negative) Urine Urobilinogen <2.0 (<2.0) mg/dL Ur Leukocyte Esterase Negative (Negative) Disposition Clinical Impression: Constipation, Acute urinary retention, Hypertension Disposition: HOME SELF-CARE Condition: Good Instructions (If sedation given, give patient instructions): Constipation (ED), High Fiber Diet (ED), Acute Urinary Retention in Women (ED) Additional Instructions: Every disease is a spectrum and a small chance still exists that a serious condition could develop, for this reason, please monitor yourself closely for new, changing or worsening symptoms, symptoms that persist beyond 48 hours, return of symptoms, burning with urination, urinary frequency other symptoms of UTI, no bowel movement for greater than 1 week, change in your typical chronic pain symptoms, fever, inability to tolerate/keep down fluids or your medications, inability to follow up with outpatient providers as instructed and should you experience these symptoms or should you have any further concerns for your wellbeing please return to the ED or call 911 immediately. You did have an elevated blood pressure during your visit today. Please follow up with your PCP within 1-3 days for recheck. Please monitor closely for any difficulty breathing, chest pain, leg swelling, strokelike symptoms such as changes in vision, slurred speech, numbness, weakness or severe headache and should experience the symptoms return to the ER immediately. PLEASE call your primary care physician as soon as possible to arrange / discuss plan for followup appointment. Appointment in the next 1-3 days is strongly encouraged if possible. PLEASE let us know here before you leave if there is anything further we can do to be of any assistance. Take care and feel Better! Is patient prescribed a controlled substance at d/c from ED?: No Referrals: Christiano Gutierrez MD [Primary Care Provider] - 1-2 days
[2025-01-26 01:09] LABS: Bilirubin,Urine Negative (Negative); Blood,Urine Negative (Negative); Color,Urine Colorless; Glucose,Urine (UA) Negative (Negative); Ketones,Urine Negative (Negative); Leukocyte Esterase,Urine Negative (Negative); Nitrite,Urine Negative (Negative); PH, Urine 6.0 (5.0-8.0); Protein,Urine Negative (Negative); Specific Gravity,Urine 1.011 (1.001-1.035); Urobilinogen,Urine <2.0 mg/dL (<2.0)
[2025-01-26 01:32] VITALS: BP 124/86; PULSE 65; TEMP 98.1
== END 2025-01-26 01:46 | disposition home or self-care (01) ==
LOC: EC 22:47
DX: K59.00 Constipation, unspecified (principal); R33.9 Retention of urine, unspecified; I10 Essential (primary) hypertension; Z88.0 Allergy status to penicillin; Z88.1 Allergy status to other antibiotic agents; Z88.2 Allergy status to sulfonamides; Z88.8 Allergy status to other drugs, medicaments and biological substances; Z91.048 Other nonmedicinal substance allergy status
CPT/HCPCS: 51798; 74018; 81003; 99284

== ENCOUNTER 2025-01-30 07:05 | Emergency (ER) | payer OTHER ==
[2025-01-30 07:15] VITALS: RESP 16
--- NOTE | 2025-01-30 07:48 | ED ---
Nausea/Vomiting/Diarrhea HPI - General Chief complaint: Nausea/Vomiting/Diarrhea Stated complaint: NVD Time Seen by Provider: 01/30/25 07:25 Source: patient, RN notes reviewed, old records reviewed Mode of arrival: wheelchair Limitations: no limitations - History of Present Illness Initial comments: 34-year-old female presented to ER for evaluation of diarrhea and pelvic pain. Patient reports a history of IBS, endometriosis, PCOS and chronic pain. Past surgical history significant for appendectomy, cholecystectomy, section, hernia repair, hysterectomy.She scheduled to follow-up with pain management in February. Patient reports for the past week she has been constipated for which she took [id number] laxatives and stool softeners. She states for the past 2 days she has been having persistent diarrhea stating anything that goes in her mouth immediately comes out as diarrhea. She denies any nausea or vomiting. Patient also was endorsing lower abdominal/pelvic pain. She states she believes she is having IBS flare given the diarrhea. She states pain is chronic and similar to previous flares in the past. Denies any new features. Patient attempted to take prescribed Percocet without relief of symptoms. Patient denies any fevers, chills, chest pain, shortness of breath, dysuria, hematuria or increased urinary frequency. - Related Data Home Medications Medication Instructions Recorded Confirmed Budesonide/Formoterol Fumarate 2 puff INHALATION RT-BID 09/02/24 09/24/24 [Symbicort 160-4.5 Mcg Inhaler] Escitalopram Oxalate [Lexapro] 20 mg PO HS 09/02/24 09/24/24 Gabapentin [Neurontin] 200 mg PO TID 09/02/24 09/24/24 HYDROcodone/APAP 10-325MG [[place] 1 tab PO TID PRN 09/02/24 09/24/24 10-325] Omeprazole [PriLOSEC] 40 mg PO HS 09/02/24 09/24/24 ondansetron HCL [Zofran] 8 mg PO Q12HR PRN 09/02/24 09/24/24 Ibuprofen 800 mg PO DAILY PRN 09/24/24 09/24/24 Previous Rx's Medication Instructions Recorded Prochlorperazine [Compazine] 10 mg PO Q6H #15 tab 10/01/24 Nitrofurantoin Monohyd/M-Cryst 100 mg PO Q12HR #10 cap 10/09/24 [Macrobid] Ciprofloxacin HCl [Cipro] 500 mg PO BID 7 Days #14 tab 10/18/24 Allergies Allergy/AdvReac Type Severity Reaction Status Date / Time sulfamethoxazole Allergy Severe Anaphylaxis Verified 01/31/25 06:56 [From Bactrim] trimethoprim [From Bactrim] Allergy Severe Anaphylaxis Verified 01/31/25 06:56 adhesive tape Allergy Rash/Hives Verified 01/31/25 06:56 aloe vera Allergy Rash/Hives Verified 01/31/25 06:56 amoxicillin [From Augmentin] Allergy Itching Verified 01/31/25 06:56 azithromycin Allergy Rash/Hives Verified 01/31/25 06:56 cephalexin Allergy Rash/Hives Verified 01/31/25 06:56 clavulanic acid Allergy Itching Verified 01/31/25 06:56 [From Augmentin] metronidazole [From Flagyl] Allergy Rash/Hives Verified 01/31/25 06:56 Penicillins Allergy Rash/Hives Verified 01/31/25 06:56 alprazolam [From Xanax] AdvReac MAKES Verified 01/31/25 06:56 PARANOID dicyclomine [From Bentyl] AdvReac constipatio Verified 01/31/25 06:56 n Review of Systems ROS Statement: Those systems with pertinent positive or pertinent negative responses have been documented in the HPI. ROS Other: All systems not noted in ROS Statement are negative. Past Medical History Past Medical History: Blood Disorder, GERD/Reflux Additional Past Medical History / Comment(s): Endometriosis, polycystic ovarian syndrome. IRON DEFICIENCY ANEMIA. Stomach Ulcer. Hx ovarian cyst.IBS History of Any Multi-Drug Resistant Organisms: None Reported Past Surgical History: Ablation, Appendectomy, Section, Cholecystectomy, Hernia Repair, Hysterectomy, Tubal Ligation, Uterine Ablation Additional Past Surgical History / Comment(s): Laparoscopy X2, Section X3, right ovary and right tube removed, then total hysterectomy including left ovary and left fallopian tube, cyst removed from chest, ADHESION REMOVAL FROM PAST CSECTION, vaginal/pelvic biopsy. Scar tissure removal abdomen L upper lower Past Anesthesia/Blood Transfusion Reactions: No Reported Reaction Past Psychological History: Anxiety, Depression Smoking Status: Never smoker Past Alcohol Use History: Occasional Past Drug Use History: None Reported - Past Family History Mother Family Medical History: Deep Vein Thrombosis (DVT), Hyperlipidemia Additional Family Medical History / Comment(s): Depression and anxiety. DVT to arm after surgery. General Exam Limitations: no limitations General appearance: alert, in no apparent distress Respiratory exam: Present: normal lung sounds bilaterally. Absent: respiratory distress, wheezes, rales, rhonchi, stridor Cardiovascular Exam: Present: regular rate, normal rhythm, normal heart sounds. Absent: systolic murmur, diastolic murmur, rubs, gallop, clicks GI/Abdominal exam: Present: soft, tenderness (lower abdomen), normal bowel gopi nds Extremities exam: Present: normal inspection, full ROM, normal capillary refill. Absent: tenderness, pedal edema, joint swelling, calf tenderness Neurological exam: Present: alert, oriented X3, CN II-XII intact Skin exam: Present: warm, dry, intact, normal color. Absent: rash Course Vital Signs 01/30/25 01/30/25 07:12 09:16 Temperature 98.1 F 98 F Pulse Rate 82 80 Respiratory 16 16 Rate Blood Pressure 124/85 120/82 O2 Sat by Pulse 98 98 Oximetry Medical Decision Making - Medical Decision Making Was pt. sent in by a medical professional or institution (, PA, CLIENT SERVICES COORDINATOR, urgent care, hospital, or jail...) When possible be specific @ -No Did you speak to anyone other than the patient for history (EMS, parent, family, police, friend...)? What history was obtained from this source @ -No Did you review nursing and triage notes (agree or disagree)? Why? @ -I reviewed and agree with nursing and triage notes Were old charts reviewed (outside hosp., previous admission, EMS record, old EKG, old radiological studies, urgent care reports/EKG's, jail records)? Report findings @ -Prior medical records Differential Diagnosis (chest pain, altered mental status, abdominal pain women, abdominal pain men, vaginal bleeding, weakness, fever, dyspnea, syncope, headache, dizziness, GI bleed, back pain, seizure, CVA, palpatations, mental health, musculoskeletal)? @ -Differential Abdominal Pain Women:Appendicitis, Cholecystitis, diverticulosis, ischemic bowel, pancreatitis, hepatitis, UTI, gastroenteritis, AAA, incarcerated hernia, bowel obstruction, constipation, inflammatory bowel, hepatitis, peptic ulcer disease, splenic infarction, perforated viscus, vulvitis, ovarian torsion, PID, kidney stone, placenta abruption, this is not meant to be an all-inclusive list EKG interpreted by me (3pts min.). @ -None X-rays interpreted by me (1pt min.). @ -None done CT interpreted by me (1pt min.). @ -None done U/S interpreted by me (1pt. min.). @ -None done What testing was considered but not performed or refused? (CT, X-rays, U/S, labs)? Why? @ -Imaging deferred as patient has had numerous CT scans in the past. There are no new features of her current pain she reports pain is chronic for IBS flares and her chronic pain. Patient is agreeable to forego imaging at this time. What meds were considered but not given or refused? Why? @ -None Did you discuss the management of the patient with other professionals (professionals i.e. , PA, CLIENT SERVICES COORDINATOR, lab, RT, psych nurse, marriage and family social worker, harness builder, teacher, code enforcement officer, casework manager)? Give summary @ -No Was smoking cessation discussed for >3mins.? @ -No Was critical care preformed (if so, how long)? @ -No Were there social determinants of health that impacted care today? How? (Homelessness, low income, unemployed, alcoholism, drug addiction, transportation, low edu. Level, literacy, decrease access to med. care, group home, rehab)? @ -No Was there de-escalation of care discussed even if they declined (Discuss DNR or withdrawal of care, Hospice)? DNR status @ -No What co-morbidities impacted this encounter? (DM, HTN, Smoking, COPD, CAD, Cancer, CVA, ARF, Chemo, Hep., AIDS, mental health diagnosis, sleep apnea, m orbid obesity)? @ -Chronic abdominal pain, IBS, endometriosis, PCOS, iron deficiency anemia, Was patient admitted / discharged? Hospital course, mention meds given and route, prescriptions, significant lab abnormalities, going to OR and other pertinent info. @ -Discharge. 34-year-old female presented to ER for evaluation of abdominal pain. Vital signs stable. Patient is well-appearing in no signs of acute distress. Laboratory studies appear to be at patient's baseline. WBC 4.02, hemoglobin 9.9. CMP unimpressive. Urinalysis with small leukocyte esterases. Urine hCG negative. Imaging deferred as no significant change in laboratory studies and patient reports pain is chronic and typical for her chronic pain flares. Patient is agreeable to this. Patient provided with symptomatic treatment in the ER, with improvement. Patient tolerating oral intake. Patient be discharged stable condition advised follow-up closely with PCP and pain management. Return parameters discussed. Patient discharged stable condition. Patient verbally expressed understand agree with care plan. Case discussed with ED attending of Dr. Shelton. Undiagnosed new problem with uncertain prognosis? @ -No Drug Therapy requiring intensive monitoring for toxicity (Heparin, Nitro, Insu altagracia, Cardizem)? @ -No Were any procedures done? @ -No Diagnosis/symptom? @ -Abdominal pain Acute, or Chronic, or Acute on Chronic? @ -Chronic Uncomplicated (without systemic symptoms) or Complicated (systemic symptoms)? @ -Uncomplicated Side effects of treatment? @ -No Exacerbation, Progression, or Severe Exacerbation? @ -No Poses a threat to life or bodily function? How? (Chest pain, [place], ME, pneumonia, PE, COPD, DKA, ARF, appy, cholecystitis, CVA, Diverticulitis, Homicidal, Suicidal, threat to staff... and all critical care pts) @ -No - Lab Data Result diagrams: 01/30/25 07:53 01/30/25 07:53 Lab Results 01/30/25 01/30/25 01/30/25 Range/Units 07:53 07:53 07:53 WBC 4.02 L (4.50-10.00) 10*3/uL RBC 3.07 L (4.10-5.20) 10*6/uL Hgb 9.9 L (12.0-15.0) g/dL Hct 29.3 L (37.2-46.3) % MCV 95.4 (80.0-97.0) fL MCH 32.2 H (27.0-32.0) pg MCHC 33.8 (32.0-37.0) g/dL Plt Count 190 (140-440) 10*3/uL MPV 9.3 L (9.5-12.2) fL Immature Gran % (Auto) 0.2 % Neutrophils % 36.4 % Lymphocytes % 52.0 % Monocytes % 9.7 % Eosinophils % 1.5 % Basophils % 0.2 % Immature Gran # 0.01 (0.00-0.04) 10*3/uL Neutrophils # 1.46 L (1.80-7.70) 10*3/uL Lymphocytes # 2.09 (0.90-5.00) 10*3/uL Monocytes # 0.39 (0.20-1.00) 10*3/uL Eosinophils # 0.06 (0.04-0.35) 10*3/uL Basophils # 0.01 (0.00-0.10) 10*3/uL Sodium (137-145) mmol/L Potassium (3.5-5.1) mmol/L Chloride (98-107) mmol/L Carbon Dioxide (22-30) mmol/L Anion Gap mmol/L BUN (7-17) mg/dL Creatinine (0.52-1.04) mg/dL Est GFR (CKD-EPI)AfAm (>60 ml/min/1.73 sqM) Est GFR (CKD-EPI)NonAf (>60 ml/min/1.73 sqM) Glucose (74-99) mg/dL Plasma Lactic Acid S[place] (0.7-2.0) mmol/L Calcium (8.4-10.2) mg/dL Total Bilirubin (0.2-1.3) mg/dL AST (14-36) U/L ALT (4-34) U/L Alkaline Phosphatase (38-126) U/L Total Protein (6.3-8.2) g/dL Albumin (3.5-5.0) g/dL Lipase (23-300) U/L Urine Color Yellow Urine Appearance Clear (Clear) Urine pH 6.0 (5.0-8.0) Ur Specific [place] 1.032 (1.001-1.035) Urine Protein Negative (Negative) Urine Glucose (UA) Negative (Negative) Urine Ketones Negative (Negative) Urine Blood Negative (Negative) Urine Nitrite Negative (Negative) Urine Bilirubin Negative (Negative) Urine Urobilinogen <2.0 (<2.0) mg/dL Ur Leukocyte Esterase Small H (Negative) Urine RBC 1 (0-5) /hpf Urine WBC 4 (0-5) /hpf Ur Squamous Epith Cells 1 (0-4) /hpf Hyaline Casts 4 H (0-2) /lpf Urine Mucus Rare H (None) /hpf Urine HCG, Qual Not Detected (Not Detectd) 01/30/25 01/30/25 Range/Units 07:53 07:53 WBC (4.50-10.00) 10*3/uL RBC (4.10-5.20) 10*6/uL Hgb (12.0-15.0) g/dL Hct (37.2-46.3) % MCV (80.0-97.0) fL MCH (27.0-32.0) pg MCHC (32.0-37.0) g/dL Plt Count (140-440) 10*3/uL MPV (9.5-12.2) fL Immature Gran % (Auto) % Neutrophils % % Lymphocytes % % Monocytes % % Eosinophils % % Basophils % % Immature Gran # (0.00-0.04) 10*3/uL Neutrophils # (1.80-7.70) 10*3/uL Lymphocytes # (0.90-5.00) 10*3/uL Monocytes # (0.20-1.00) 10*3/uL Eosinophils # (0.04-0.35) 10*3/uL Basophils # (0.00-0.10) 10*3/uL Sodium 139 (137-145) mmol/L Potassium 4.1 (3.5-5.1) mmol/L Chloride 104 (98-107) mmol/L Carbon Dioxide 27 (22-30) mmol/L Anion Gap 8 mmol/L BUN 14 (7-17) mg/dL Creatinine 0.72 (0.52-1.04) mg/dL Est GFR (CKD-EPI)AfAm >90 (>60 ml/min/1.73 sqM) Est GFR (CKD-EPI)NonAf >90 (>60 ml/min/1.73 sqM) Glucose 92 (74-99) mg/dL Plasma Lactic Acid S[place] 0.8 (0.7-2.0) mmol/L Calcium 9.5 (8.4-10.2) mg/dL Total Bilirubin 0.4 (0.2-1.3) mg/dL AST 25 (14-36) U/L ALT 32 (4-34) U/L Alkaline Phosphatase 104 (38-126) U/L Total Protein 6.4 (6.3-8.2) g/dL Albumin 4.0 (3.5-5.0) g/dL Lipase 20 L (23-300) U/L Urine Color Urine Appearance (Clear) Urine pH (5.0-8.0) Ur Specific [place] (1.001-1.035) Urine Protein (Negative) Urine Glucose (UA) (Negative) Urine Ketones (Negative) Urine Blood (Negative) Urine Nitrite (Negative) Urine Bilirubin (Negative) Urine Urobilinogen (<2.0) mg/dL Ur Leukocyte Esterase (Negative) Urine RBC (0-5) /hpf Urine WBC (0-5) /hpf Ur Squamous Epith Cells (0-4) /hpf Hyaline Casts (0-2) /lpf Urine Mucus (None) /hpf Urine HCG, Qual (Not Detectd) Disposition Clinical Impression: Chronic abdominal pain Disposition: HOME SELF-CARE Condition: Stable Additional Instructions: Follow-up with PCP. Return to the ER for any new or worsening symptoms. Is patient prescribed a controlled substance at d/c from ED?: No Referrals: Christiano Gutierrez MD [Primary Care Provider] - 1-2 days Time of Disposition: 08:37
[2025-01-30] MEDS: ORPHENADRINE 30 MG/ML 2 ML VIAL IVP STA (07:56)
[2025-01-30] MEDS: KETOROLAC 15 MG/ML 1 ML VIAL IVP STA (07:56)
[2025-01-30] MEDS: SODIUM CHLORIDE 0.9% 1,000 ML IV STA (07:56)
[2025-01-30] MEDS: HYDROmorphone 0.5 MG/0.5 ML SYRINGE IVP STA ×2 (07:57→09:08)
[2025-01-30 08:03] LABS: Basophils # (A) 0.01 10*3/uL (0.00-0.10); Basophils % (A) 0.2 %; Eosinophils # (A) 0.06 10*3/uL (0.04-0.35); Eosinophils % (A) 1.5 %; HCT 29.3 % (37.2-46.3); HGB 9.9 g/dL (12.0-15.0); Lymphocytes # (A) 2.09 10*3/uL (0.90-5.00); Lymphocytes % (A) 52.0 %; MCH 32.2 pg (27.0-32.0); MCHC 33.8 g/dL (32.0-37.0); MCV 95.4 fL (80.0-97.0); Monocytes # (A) 0.39 10*3/uL (0.20-1.00); Monocytes % (A) 9.7 %; Neutrophils # (A) 1.46 10*3/uL (1.80-7.70); Neutrophils % (A) 36.4 %; Platelet Count 190 10*3/uL (140-440); RBC 3.07 10*6/uL (4.10-5.20); RDW 13.2 % (11.5-14.5); WBC 4.02 10*3/uL (4.50-10.00)
[2025-01-30 08:07] LABS: Bilirubin,Urine Negative (Negative); Blood,Urine Negative (Negative); Color,Urine Yellow; Glucose,Urine (UA) Negative (Negative); Hyaline Casts,Urine 4 /lpf (0-2); Ketones,Urine Negative (Negative); Leukocyte Esterase,Urine Small (Negative); Mucus,Urine Rare /hpf; Nitrite,Urine Negative (Negative); PH, Urine 6.0 (5.0-8.0); Protein,Urine Negative (Negative); RBC,Urine 1 /hpf (0-5); Specific Gravity,Urine 1.032 (1.001-1.035); Squamous Epithelial Cell,Urine 1 /hpf (0-4); Urobilinogen,Urine <2.0 mg/dL (<2.0); WBC,Urine 4 /hpf (0-5)
[2025-01-30 08:16] LABS: ALT 32 U/L (4-34); AST 25 U/L (14-36); African American GFR (CKD) >90 (>60 ml/min/1.73 sqM); Albumin 4.0 g/dL (3.5-5.0); Alkaline Phosphatase 104 U/L (38-126); Anion Gap 8 mmol/L; Blood Urea Nitrogen 14 mg/dL (7-17); Calcium 9.5 mg/dL (8.4-10.2); Carbon Dioxide 27 mmol/L (22-30); Chloride 104 mmol/L (98-107); Glucose 92 mg/dL (74-99); Lipase 20 U/L (23-300); Non-African American GFR(CKD) >90 (>60 ml/min/1.73 sqM); Potassium 4.1 mmol/L (3.5-5.1); Sodium 139 mmol/L (137-145); Total Protein 6.4 g/dL (6.3-8.2)
[2025-01-30 09:17] VITALS: BP 120/82; PULSE 80; TEMP 98
== END 2025-01-30 09:17 | disposition home or self-care (01) ==
LOC: EC 07:05
DX: R19.7 Diarrhea, unspecified (principal); E28.2 Polycystic ovarian syndrome; N80.9 Endometriosis, unspecified; K58.9 Irritable bowel syndrome, unspecified; Z88.2 Allergy status to sulfonamides; Z88.0 Allergy status to penicillin; Z88.1 Allergy status to other antibiotic agents; Z91.048 Other nonmedicinal substance allergy status; Z88.8 Allergy status to other drugs, medicaments and biological substances
CPT/HCPCS: 36415; 80053; 83605; 83690; 85025; 81001; 81025; 99284; 96374; 96375 ×2; 96376; 96361; J2360; J1885; J1171

== ENCOUNTER 2025-01-31 06:53 | Emergency (ER) | payer OTHER ==
[2025-01-31 06:58] VITALS: BP 146/88; PULSE 76; RESP 16; TEMP 97.9
[2025-01-31] MEDS: KETOROLAC 15 MG/ML 1 ML VIAL IM STA (08:33)
[2025-01-31] MEDS: MORPHINE SULFATE ER 15 MG TABLET PO STA (08:34)
[2025-01-31] MEDS: ORPHENADRINE 30 MG/ML 2 ML VIAL IM STA (08:34)
--- NOTE | 2025-01-31 09:15 | ED ---
General Adult HPI - General Chief complaint: Urogenital Stated complaint: pelvic pain Time Seen by Provider: 01/31/25 07:11 Source: patient Mode of arrival: ambulatory Limitations: no limitations - History of Present Illness Initial comments: Patient is a 34-year-old female with a history of chronic pain, chronic endometriosis and PCOS who presents emergency room with complaints of right pelvic and flank pain. Patient states that started few days ago and has been persistent. Has not worsened but has not improved. She has been taking her Percocet she is prescribed for chronic pain without improvement. Patient was seen yesterday with similar symptoms and a negative urine. She states that she did have intercourse yesterday which made the pain worse with movement. She denies any vaginal discharge dysuria hematuria urinary frequency, fevers or concern for an STD. She states that this is similar to the pain she has felt in the past. She states the Percocet is not helping. She denies any alcohol or drug use. She has had a partial hysterectomy. - Related Data Home Medications Medication Instructions Recorded Confirmed Budesonide/Formoterol Fumarate 2 puff INHALATION RT-BID 09/02/24 09/24/24 [Symbicort 160-4.5 Mcg Inhaler] Escitalopram Oxalate [Lexapro] 20 mg PO HS 09/02/24 09/24/24 Gabapentin [Neurontin] 200 mg PO TID 09/02/24 09/24/24 HYDROcodone/APAP 10-325MG [[place] 1 tab PO TID PRN 09/02/24 09/24/24 10-325] Omeprazole [PriLOSEC] 40 mg PO HS 09/02/24 09/24/24 ondansetron HCL [Zofran] 8 mg PO Q12HR PRN 09/02/24 09/24/24 Ibuprofen 800 mg PO DAILY PRN 09/24/24 09/24/24 Previous Rx's Medication Instructions Recorded Prochlorperazine [Compazine] 10 mg PO Q6H #15 tab 10/01/24 Nitrofurantoin Monohyd/M-Cryst 100 mg PO Q12HR #10 cap 10/09/24 [Macrobid] Ciprofloxacin HCl [Cipro] 500 mg PO BID 7 Days #14 tab 10/18/24 Allergies Allergy/AdvReac Type Severity Reaction Status Date / Time sulfamethoxazole Allergy Severe Anaphylaxis Verified 01/31/25 06:56 [From Bactrim] trimethoprim [From Bactrim] Allergy Severe Anaphylaxis Verified 01/31/25 06:56 adhesive tape Allergy Rash/Hives Verified 01/31/25 06:56 aloe vera Allergy Rash/Hives Verified 01/31/25 06:56 amoxicillin [From Augmentin] Allergy Itching Verified 01/31/25 06:56 azithromycin Allergy Rash/Hives Verified 01/31/25 06:56 cephalexin Allergy Rash/Hives Verified 01/31/25 06:56 clavulanic acid Allergy Itching Verified 01/31/25 06:56 [From Augmentin] metronidazole [From Flagyl] Allergy Rash/Hives Verified 01/31/25 06:56 Penicillins Allergy Rash/Hives Verified 01/31/25 06:56 alprazolam [From Xanax] AdvReac MAKES Verified 01/31/25 06:56 PARANOID dicyclomine [From Bentyl] AdvReac constipatio Verified 01/31/25 06:56 n Review of Systems ROS Statement: Those systems with pertinent positive or pertinent negative responses have been documented in the HPI. ROS Other: All systems not noted in ROS Statement are negative. Constitutional: Reports: as per HPI. Denies: fever Respiratory: Denies: cough, dyspnea Cardiovascular: Denies: chest pain Gastrointestinal: Denies: abdominal pain, nausea, vomiting Genitourinary: Denies: urgency, dysuria, hematuria Musculoskeletal: Reports: other (Mild lateral flank pain) Skin: Denies: rash, lesions Past Medical History Past Medical History: Blood Disorder, GERD/Reflux Additional Past Medical History / Comment(s): Endometriosis, polycystic ovarian syndrome. IRON DEFICIENCY ANEMIA. Stomach Ulcer. Hx ovarian cyst.IBS History of Any Multi-Drug Resistant Organisms: None Reported Past Surgical History: Ablation, Appendectomy, Section, Cholecystectomy, Hernia Repair, Hysterectomy, Tubal Ligation, Uterine Ablation Additional Past Surgical History / Comment(s): Laparoscopy X2, Section X3, right ovary and right tube removed, then total hysterectomy including left ovary and left fallopian tube, cyst removed from chest, ADHESION REMOVAL FROM PAST CSECTION, vaginal/pelvic biopsy. Scar tissure removal abdomen L upper lower Past Anesthesia/Blood Transfusion Reactions: No Reported Reaction Past Psychological History: Anxiety, Depression Smoking Status: Never smoker Past Alcohol Use History: Occasional Past Drug Use History: None Reported - Past Family History Mother Family Medical History: Deep Vein Thrombosis (DVT), Hyperlipidemia Additional Family Medical History / Comment(s): Depression and anxiety. DVT to arm after surgery. General Exam - General Exam Comments Initial Comments: mild pain with palpation over the right hip and groin. Pain over right mid and lower paraspinal muscles without any vertebral point tenderness. EHL intact bilaterally. Mild pain with external rotation of the hip and leg. No rash no erythema no right lower quadrant abdominal pain or abdominal abdominal distention. No distress. Well-appearing. Steady gait Limitations: no limitations General appearance: alert, in no apparent distress Head exam: Absent: atraumatic ENT exam: Present: normal exam Neck exam: Present: full ROM Cardiovascular Exam: Present: regular rate GI/Abdominal exam: Present: soft, other (mild groin pain with palpation, no erythema or warmth, no swollen lymph notes, reproducible. mild pain with rotation of the hip, no signs of a septic joint). Absent: distended, rigid Extremities exam: Present: full ROM, tenderness Back exam: Present: full ROM, tenderness (mild right paraspinal muscle tenderness, no midline tenderness) Neurological exam: Present: alert, oriented X3 Psychiatric exam: Present: normal affect, normal mood Skin exam: Present: warm Course Vital Signs 01/31/25 06:56 Temperature 97.9 F Pulse Rate 76 Respiratory 16 Rate Blood Pressure 146/88 O2 Sat by Pulse 100 Oximetry - Reevaluation(s) Reevaluation #1: 01/31/25 09:17 The patient is well-appearing in the emergency room. She is moving in her bed without any signs of limitations. She is playing on her phone. Was given Norflex and Toradol in the emergency room. Continued to have pain so was given a 15 mg p.o. of morphine. Will not be giving anything else for pain control. She may continue to take her breaks that at home and can follow-up with her PCP and chronic pain provider. No labs or imaging were done as patient has had no falls. She denies any vaginal discharge change in sexual history or concern for STD. She had a UA done yesterday which was negative. She denies any chance of as she has had partial hysterectomy. The patient states the pain is with movement and musculoskeletal. She states she has had this pain chronically in the past and denies any significant changes with this pain therefore I do not feel as though doing lab work would be beneficial at this time and would not change the treatment plan. I discussed management of this attending ED physician Dr. Shelton today. Medical Decision Making - Medical Decision Making Was pt. sent in by a medical professional or institution (, ANALI, PLASTIC WORKER, urgent care, hospital, or longterm...) When possible be specific @ -[No] Did you speak to anyone other than the patient for history (EMS, parent, family, police, friend...)? What history was obtained from this source @ -[No] Did you review nursing and triage notes (agree or disagree)? Why? @ -[I reviewed and agree with nursing and triage notes] Were old charts reviewed (outside hosp., previous admission, EMS record, old EKG, old radiological studies, urgent care reports/EKG's, longterm records)? Report findings @ -Yes cultures were reviewed. Patient has been seen multiple times for similar complaints. She states her pain is consistent with her previous visits and chronic pain Differential Diagnosis (chest pain, altered mental status, abdominal pain women, abdominal pain men, vaginal bleeding, weakness, fever, dyspnea, syncope, headache, dizziness, GI bleed, back pain, seizure, CVA, palpatations, mental health, musculoskeletal)? @ -Musculoskeletal pain, acute on chronic pain, groin pain, pelvic pain EKG interpreted by me (3pts min.). @ -[As above] X-rays interpreted by me (1pt min.). @ -[None done] CT interpreted by me (1pt min.). @ -[None done] U/S interpreted by me (1pt. min.). @ -[None done] What testing was considered but not performed or refused? (CT, X-rays, U/S, labs)? Why? @ -UA and imaging was not done as patient has had full workups recently including yesterday without any changes. She states that this is similar to her chronic pain that she gets and there has been no changes such as fevers falls injuries or other symptoms. What meds were considered but not given or refused? Why? @ -[None] Did you discuss the management of the patient with other professionals (professionals i.e. , ANALI, PLASTIC WORKER, lab, RT, psych nurse, socially responsible investment adviser, web architect, teacher, immigration services officer, child support case officer)? Give summary @ -Discussed symptoms workup and management with attending physician Dr. Shelton today Was smoking cessation discussed for >3mins.? @ -[No] Was critical care preformed (if so, how long)? @ -[No] Were there social determinants of health that impacted care today? How? (Homelessness, low income, unemployed, alcoholism, drug addiction, transportation, low edu. Level, literacy, decrease access to med. care, nursing home, rehab)? @ -[No] Was there de-escalation of care discussed even if they declined (Discuss DNR or withdrawal of care, Hospice)? DNR status @ -[No] What co-morbidities impacted this encounter? (DM, HTN, Smoking, COPD, CAD, Cancer, CVA, ARF, Chemo, Hep., AIDS, mental health diagnosis, sleep apnea, morbid obesity)? @ -PCOS, endometriosis, chronic pain Was patient admitted / discharged? Hospital course, mention meds given and route, prescriptions, significant lab abnormalities, going to OR and other pertinent info. @ -Patient is well-appearing in emergency room. She was feeling better after pain medication and is ready to go home. Is to follow-up with her primary care physician @ -[No] Drug Therapy requiring intensive monitoring for toxicity (Heparin, Nitro, Insulin, Cardizem)? @ -[No] Were any procedures done? @ -[No] Diagnosis/symptom? @ -Acute on chronic pain, groin pain Acute, or Chronic, or Acute on Chronic? @ -Acute on chronic Uncomplicated (without systemic symptoms) or Complicated (systemic symptoms)? @ -[default] Side effects of treatment? @ -[No] Exacerbation, Progression, or Severe Exacerbation? @ -[No] Poses a threat to life or bodily function? How? (Chest pain, [place], [place], pneumonia, PE, COPD, DKA, ARF, appy, cholecystitis, CVA, Diverticulitis, Homicidal, Suicidal, threat to staff... and all critical care pts) @ -[No] Disposition Clinical Impression: Chronic pain, Groin strain, Pelvic pain Disposition: HOME SELF-CARE Condition: Good Instructions (If sedation given, give patient instructions): Chronic Pain (ED), Groin Pain (ED) Is patient prescribed a controlled substance at d/c from ED?: No When asked, does pt state using other controlled substances?: Yes If prescribed controlled substance>3 days was MAPS reviewed?: No If opioid is for acute pain is fill amount 7 days or less?: No If Rx opioid, was Start Talking consent form obtained?: No Referrals: Christiano Gutierrez MD [Primary Care Provider] - 1-2 days Time of Disposition: 09:21
== END 2025-01-31 10:03 | disposition home or self-care (01) ==
LOC: EC 06:53
DX: S39.011A Strain of muscle, fascia and tendon of abdomen, initial encounter (principal); Z88.0 Allergy status to penicillin; Z88.1 Allergy status to other antibiotic agents; Z88.2 Allergy status to sulfonamides; Z88.8 Allergy status to other drugs, medicaments and biological substances
CPT/HCPCS: 99283; 96372 ×2; J2360; J1885

== ENCOUNTER 2025-02-03 21:15 | Emergency (ER) | payer OTHER ==
--- NOTE | 2025-02-03 21:34 | ED ---
Nausea/Vomiting/Diarrhea HPI - General Chief complaint: Nausea/Vomiting/Diarrhea Stated complaint: Pelvic and back pain, vomiting Time Seen by Provider: 02/03/25 21:28 Source: patient, RN notes reviewed, old records reviewed Mode of arrival: wheelchair Limitations: no limitations - History of Present Illness Initial comments: This is a 34 female well-known to this ER coming in for chronic pain. Chronic abdominal pain with nausea and vomiting. Patient states she may have done in the little bit too much outside in with the family over the weekend and symptoms have progressively worsened since. She was feeling well going into the weekend and has just been feeling little downtrodden the last 2 days. No fevers no diarrhea symptoms are not new MD complaint: nausea, vomiting, abdominal pain -: days(s) (2) Description of Vomiting: food contents, watery Associated Abdominal Pain: Yes Location: diffuse Radiation: none Severity: moderate Severity scale (1-10): 4 Quality: cramping, aching Consistency: constant Improves with: none Worsens with: none Context: other (0) Associated Symptoms: loss of appetite, nausea/vomiting - Related Data Home Medications Medication Instructions Recorded Confirmed Budesonide/Formoterol Fumarate 2 puff INHALATION RT-BID 09/02/24 09/24/24 [Symbicort 160-4.5 Mcg Inhaler] Escitalopram Oxalate [Lexapro] 20 mg PO HS 09/02/24 09/24/24 Gabapentin [Neurontin] 200 mg PO TID 09/02/24 09/24/24 HYDROcodone/APAP 10-325MG [[place] 1 tab PO TID PRN 09/02/24 09/24/24 10-325] Omeprazole [PriLOSEC] 40 mg PO HS 09/02/24 09/24/24 ondansetron HCL [Zofran] 8 mg PO Q12HR PRN 09/02/24 09/24/24 Ibuprofen 800 mg PO DAILY PRN 09/24/24 09/24/24 Previous Rx's Medication Instructions Recorded Prochlorperazine [Compazine] 10 mg PO Q6H #15 tab 10/01/24 Nitrofurantoin Monohyd/M-Cryst 100 mg PO Q12HR #10 cap 10/09/24 [Macrobid] Ciprofloxacin HCl [Cipro] 500 mg PO BID 7 Days #14 tab 10/18/24 Allergies Allergy/AdvReac Type Severity Reaction Status Date / Time sulfamethoxazole Allergy Severe Anaphylaxis Verified 02/03/25 21:25 [From Bactrim] trimethoprim [From Bactrim] Allergy Severe Anaphylaxis Verified 02/03/25 21:25 adhesive tape Allergy Rash/Hives Verified 02/03/25 21:25 aloe vera Allergy Rash/Hives Verified 02/03/25 21:25 amoxicillin [From Augmentin] Allergy Itching Verified 02/03/25 21:25 azithromycin Allergy Rash/Hives Verified 02/03/25 21:25 cephalexin Allergy Rash/Hives Verified 02/03/25 21:25 clavulanic acid Allergy Itching Verified 02/03/25 21:25 [From Augmentin] metronidazole [From Flagyl] Allergy Rash/Hives Verified 02/03/25 21:25 Penicillins Allergy Rash/Hives Verified 02/03/25 21:25 alprazolam [From Xanax] AdvReac MAKES Verified 02/03/25 21:25 PARANOID dicyclomine [From Bentyl] AdvReac constipatio Verified 02/03/25 21:25 n Review of Systems ROS Statement: Those systems with pertinent positive or pertinent negative responses have been documented in the HPI. ROS Other: All systems not noted in ROS Statement are negative. Past Medical History Past Medical History: Blood Disorder, GERD/Reflux Additional Past Medical History / Comment(s): Endometriosis, polycystic ovarian syndrome. IRON DEFICIENCY ANEMIA. Stomach Ulcer. Hx ovarian cyst.IBS History of Any Multi-Drug Resistant Organisms: None Reported Past Surgical History: Ablation, Appendectomy, Section, Cholecystectomy, Hernia Repair, Hysterectomy, Tubal Ligation, Uterine Ablation Additional Past Surgical History / Comment(s): Laparoscopy X2, Section X3, right ovary and right tube removed, then total hysterectomy including left ovary and left fallopian tube, cyst removed from chest, ADHESION REMOVAL FROM PAST CSECTION, vaginal/pelvic biopsy. Scar tissure removal abdomen L upper lower Past Anesthesia/Blood Transfusion Reactions: No Reported Reaction Past Psychological History: Anxiety, Depression Smoking Status: Never smoker Past Alcohol Use History: Occasional Past Drug Use History: None Reported - Past Family History Mother Family Medical History: Deep Vein Thrombosis (DVT), Hyperlipidemia Additional Family Medical History / Comment(s): Depression and anxiety. DVT to arm after surgery. General Exam Limitations: no limitations General appearance: alert, in no apparent distress Head exam: Present: atraumatic, normocephalic, normal inspection Eye exam: Present: normal appearance, PERRL, EOMI. Absent: scleral icterus, conjunctival injection, periorbital swelling ENT exam: Present: normal exam, mucous membranes moist Neck exam: Present: normal inspection. Absent: tenderness, meningismus, lymphadenopathy Respiratory exam: Present: normal lung sounds bilaterally. Absent: respiratory distress, wheezes, rales, rhonchi, stridor Cardiovascular Exam: Present: regular rate, normal rhythm, normal heart sounds. Absent: systolic murmur, diastolic murmur, rubs, gallop, clicks GI/Abdominal exam: Present: soft, normal bowel sounds. Absent: distended, tenderness, guarding, rebound, rigid Extremities exam: Present: normal inspection, full ROM, normal capillary refill. Absent: tenderness, pedal edema, joint swelling, calf tenderness Back exam: Present: normal inspection Neurological exam: Present: alert, oriented X3, CN II-XII intact Psychiatric exam: Present: normal affect, normal mood Skin exam: Present: warm, dry, intact, normal color. Absent: rash Course Vital Signs 02/03/25 02/03/25 21:25 22:14 Temperature 98.3 F Pulse Rate 86 75 Respiratory 16 16 Rate Blood Pressure 111/79 118/80 O2 Sat by Pulse 100 99 Oximetry - Reevaluation(s) Reevaluation #1: 02/03/25 22:43 Medical records reviewed Reevaluation #2: 02/03/25 22:43 Patient symptoms improved Reevaluation #3: 02/03/25 22:44 Patient informed of results and questions answered Reevaluation #4: Was pt. sent in by a medical professional or institution (, PA, MEAT CURER, urgent care, hospital, or long-term...) When possible be specific @ -no Did you speak to anyone other than the patient for history (EMS, parent, family, police, friend...)? What history was obtained from this source @ -no Did you review nursing and triage notes (agree or disagree)? Why? @ -agree Are old charts reviewed (outside hosp., previous admission, EMS record, old EKG, old radiological studies, urgent care reports/EKG's, long-term records)? Report findings @ -yes Differential Diagnosis (chest pain, altered mental status, abdominal pain women, abdominal pain men, vaginal bleeding, weakness, fever, dyspnea, syncope, headache, dizziness, GI bleed, back pain, seizure, CVA, palpatations, mental health, musculoskeletal)? @ -prior EKG interpreted by me (3pts min.). @ -yes X-rays interpreted by me (1pt min.). @ -yes negative for acute disease CT interpreted by me (1pt min.). @ -no U/S interpreted by me (1pt. min.). @ -no What testing was considered but not performed or refused? (CT, X-rays, U/S, labs)? Why? @ -none What meds were considered but not given or refused? Why? @ -none Did you discuss the management of the patient with other professionals (professionals i.e. , PA, MEAT CURER, lab, RT, psych nurse, social work assistant, chief engineer drilling and recovery, teacher, electoral officer, bilingual patient support caseworker)? Give summary @ -no Was smoking cessation discussed for >3mins.? @ -no Was critical care preformed (if so, how long)? @ -no Were there social determinants of health that impacted care today? How? (Homelessness, low income, unemployed, alcoholism, drug addiction, transportation, low edu. Level, literacy, decrease access to med. care, skilled nursing, rehab)? @ -none Was there de-escalation of care discussed even if they declined (Discuss DNR or withdrawal of care, Hospice)? DNR status @ -no What co-morbidities impacted this encounter? (DM, HTN, Smoking, COPD, CAD, Canc er, CVA, ARF, Chemo, Hep., AIDS, mental health diagnosis, sleep apnea, morbid obesity)? @ -none Was patient admitted / discharged? Hospital course, mention meds given and route, prescriptions, significant lab abnormalities, going to OR and other pertinent info. @ - Undiagnosed new problem with uncertain prognosis? @ -no Drug Therapy requiring intensive monitoring for toxicity (Heparin, Nitro, Insulin, Cardizem)? @ -no Were any procedures done? @ -no Diagnosis/symptom? @ - Acute, or Chronic, or Acute on Chronic? @ -Acute Uncomplicated (without systemic symptoms) or Complicated (systemic symptoms)? @ -Complicated Side effects of treatment? @ -no Exacerbation, Progression, or Severe Exacerbation? @ -exacerbation Poses a threat to life or bodily function? How? (Chest pain, [place], [place], pneumonia, PE, COPD, DKA, ARF, appy, cholecystitis, CVA, Diverticulitis, Homicidal, Suicidal, threat to staff... and all critical care pts) @ -yes Reevaluation #5: Differential Abdominal Pain Women: Appendicitis, Cholecystitis, diverticulosis, ischemic bowel, pancreatitis, hepatitis, UTI, gastroenteritis, AAA, incarcerated hernia, bowel obstruction, constipation, inflammatory bowel, hepatitis, peptic ulcer disease, splenic infarction, perforated viscus, vulvitis, ovarian torsion, PID, kidney stone, placenta abruption, this is not meant to be an all-inclusive list Medical Decision Making - Medical Decision Making 34 female to the ER for evaluation nausea vomiting abdominal pain chronic issue, patient symptoms are improved here in the ER she can be discharged home Disposition Clinical Impression: Nausea and vomiting, Abdominal pain Disposition: HOME SELF-CARE Condition: Good Instructions (If sedation given, give patient instructions): Acute Nausea and Vomiting (ED), Abdominal Pain (ED) Is patient prescribed a controlled substance at d/c from ED?: No Referrals: None,Stated [Primary Care Provider] - 1-2 days Time of Disposition: 22:45
[2025-02-03] MEDS: HYDROmorphone 1 MG/ML 1 ML SYRINGE IM STA (22:17)
[2025-02-03] MEDS: PROCHLORPERAZINE INJ 10 MG/2 ML VIAL IM STA (22:18)
[2025-02-03 22:58] VITALS: BP 110/75; PULSE 80; RESP 18; TEMP 98.6
== END 2025-02-03 22:59 | disposition home or self-care (01) ==
LOC: EC 21:15
DX: R11.2 Nausea with vomiting, unspecified (principal); R10.9 Unspecified abdominal pain; Z88.0 Allergy status to penicillin; Z88.1 Allergy status to other antibiotic agents; Z88.2 Allergy status to sulfonamides; Z91.09 Other allergy status, other than to drugs and biological substances; Z91.018 Allergy to other foods; Z88.8 Allergy status to other drugs, medicaments and biological substances
CPT/HCPCS: 99284; 96372; J0780; J1171

== ENCOUNTER 2025-02-07 21:33 | Emergency (ER) | payer OTHER ==
[2025-02-07 21:46] VITALS: TEMP 98.3
--- NOTE | 2025-02-07 22:21 | ED ---
Nausea/Vomiting/Diarrhea HPI - General Chief complaint: Nausea/Vomiting/Diarrhea Stated complaint: Vomiting, pelvic pain Time Seen by Provider: 02/07/25 21:42 Source: patient, RN notes reviewed, old records reviewed Mode of arrival: ambulatory Limitations: no limitations - History of Present Illness Initial comments: This is a 34-year-old female to ER for evaluation of acute on chronic abdominal pain nausea vomiting unable to keep down medications at home and burning with urination. Patient has multiple recent ER visits for similar symptoms, pain is worse than normal pain. MD complaint: nausea, vomiting, abdominal pain -: days(s) Location: periumbilical Severity: severe Severity scale (1-10): 9 Quality: stabbing Consistency: constant Improves with: none Worsens with: none Context: history of abdominal surgery Associated Symptoms: loss of appetite, nausea/vomiting, dysuria - Related Data Home Medications Medication Instructions Recorded Confirmed Budesonide/Formoterol Fumarate 2 puff INHALATION RT-BID 09/02/24 09/24/24 [Symbicort 160-4.5 Mcg Inhaler] Escitalopram Oxalate [Lexapro] 20 mg PO HS 09/02/24 09/24/24 Gabapentin [Neurontin] 200 mg PO TID 09/02/24 09/24/24 HYDROcodone/APAP 10-325MG [[place] 1 tab PO TID PRN 09/02/24 09/24/24 10-325] Omeprazole [PriLOSEC] 40 mg PO HS 09/02/24 09/24/24 ondansetron HCL [Zofran] 8 mg PO Q12HR PRN 09/02/24 09/24/24 Ibuprofen 800 mg PO DAILY PRN 09/24/24 09/24/24 Previous Rx's Medication Instructions Recorded Prochlorperazine [Compazine] 10 mg PO Q6H #15 tab 10/01/24 Nitrofurantoin Monohyd/M-Cryst 100 mg PO Q12HR #10 cap 10/09/24 [Macrobid] Ciprofloxacin HCl [Cipro] 500 mg PO BID 7 Days #14 tab 10/18/24 Allergies Allergy/AdvReac Type Severity Reaction Status Date / Time sulfamethoxazole Allergy Severe Anaphylaxis Verified 02/07/25 21:43 [From Bactrim] trimethoprim [From Bactrim] Allergy Severe Anaphylaxis Verified 02/07/25 21:43 adhesive tape Allergy Rash/Hives Verified 02/07/25 21:43 aloe vera Allergy Rash/Hives Verified 02/07/25 21:43 amoxicillin [From Augmentin] Allergy Itching Verified 02/07/25 21:43 azithromycin Allergy Rash/Hives Verified 02/07/25 21:43 cephalexin Allergy Rash/Hives Verified 02/07/25 21:43 clavulanic acid Allergy Itching Verified 02/07/25 21:43 [From Augmentin] metronidazole [From Flagyl] Allergy Rash/Hives Verified 02/07/25 21:43 Penicillins Allergy Rash/Hives Verified 02/07/25 21:43 alprazolam [From Xanax] AdvReac MAKES Verified 02/07/25 21:43 PARANOID dicyclomine [From Bentyl] AdvReac constipatio Verified 02/07/25 21:43 n Review of Systems ROS Statement: Those systems with pertinent positive or pertinent negative responses have been documented in the HPI. ROS Other: All systems not noted in ROS Statement are negative. Past Medical History Past Medical History: Blood Disorder, GERD/Reflux Additional Past Medical History / Comment(s): Endometriosis, polycystic ovarian syndrome. IRON DEFICIENCY ANEMIA. Stomach Ulcer. Hx ovarian cyst.IBS History of Any Multi-Drug Resistant Organisms: None Reported Past Surgical History: Ablation, Appendectomy, Section, Cholecystectomy, Hernia Repair, Hysterectomy, Tubal Ligation, Uterine Ablation Additional Past Surgical History / Comment(s): Laparoscopy X2, Section X3, right ovary and right tube removed, then total hysterectomy including left ovary and left fallopian tube, cyst removed from chest, ADHESION REMOVAL FROM PAST CSECTION, vaginal/pelvic biopsy. Scar tissure removal abdomen L upper lower Past Anesthesia/Blood Transfusion Reactions: No Reported Reaction Past Psychological History: Anxiety, Depression Smoking Status: Never smoker Past Alcohol Use History: Occasional Past Drug Use History: None Reported - Past Family History Mother Family Medical History: Deep Vein Thrombosis (DVT), Hyperlipidemia Additional Family Medical History / Comment(s): Depression and anxiety. DVT to arm after surgery. General Exam Limitations: no limitations General appearance: alert, in no apparent distress Head exam: Present: atraumatic, normocephalic, normal inspection Eye exam: Present: normal appearance, PERRL, EOMI. Absent: scleral icterus, conjunctival injection, periorbital swelling ENT exam: Present: normal exam, mucous membranes moist Neck exam: Present: normal inspection. Absent: tenderness, meningismus, lymphadenopathy Respiratory exam: Present: normal lung sounds bilaterally. Absent: respiratory distress, wheezes, rales, rhonchi, stridor Cardiovascular Exam: Present: regular rate, normal rhythm, normal heart sounds. Absent: systolic murmur, diastolic murmur, rubs, gallop, clicks GI/Abdominal exam: Present: soft, normal bowel sounds. Absent: distended, tenderness, guarding, rebound, rigid Extremities exam: Present: normal inspection, full ROM, normal capillary refill. Absent: tenderness, pedal edema, joint swelling, calf tenderness Back exam: Present: normal inspection Neurological exam: Present: alert, oriented X3, CN II-XII intact Psychiatric exam: Present: normal affect, normal mood Skin exam: Present: warm, dry, intact, normal color. Absent: rash Course Vital Signs 02/07/25 02/07/25 21:44 22:08 Temperature 98.3 F 98.3 F Pulse Rate 106 H 86 Respiratory 16 16 Rate Blood Pressure 139/86 137/84 O2 Sat by Pulse 99 99 Oximetry - Reevaluation(s) Reevaluation #1: 02/07/25 22:20 Medical records reviewed Reevaluation #2: 02/07/25 22:20 Patient symptoms improved Reevaluation #3: 02/07/25 22:20 Patient informed of results questions answered Reevaluation #4: Was pt. sent in by a medical professional or institution (, PA, BLACKING WHEEL TENDER, urgent care, hospital, or detention...) When possible be specific @ -no Did you speak to anyone other than the patient for history (EMS, parent, family, police, friend...)? What history was obtained from this source @ -no Did you review nursing and triage notes (agree or disagree)? Why? @ -agree Are old charts reviewed (outside hosp., previous admission, EMS record, old EKG, old radiological studies, urgent care reports/EKG's, detention records)? Report findings @ -yes Differential Diagnosis (chest pain, altered mental status, abdominal pain women, abdominal pain men, vaginal bleeding, weakness, fever, dyspnea, syncope, headache, dizziness, GI bleed, back pain, seizure, CVA, palpatations, mental health, musculoskeletal)? @ -prior EKG interpreted by me (3pts min.). @ -yes X-rays interpreted by me (1pt min.). @ -yes negative for acute disease CT interpreted by me (1pt min.). @ -no U/S interpreted by me (1pt. min.). @ -no What testing was considered but not performed or refused? (CT, X-rays, U/S, labs)? Why? @ -none What meds were considered but not given or refused? Why? @ -none Did you discuss the management of the patient with other professionals (professionals i.e. , PA, BLACKING WHEEL TENDER, lab, RT, psych nurse, social media marketing manager, sealer sander, teacher, energy control officer, home health care case manager)? Give summary @ -no Was smoking cessation discussed for >3mins.? @ -no Was critical care preformed (if so, how long)? @ -no Were there social determinants of health that impacted care today? How? (Homelessness, low income, unemployed, alcoholism, drug addiction, trans portation, low edu. Level, literacy, decrease access to med. care, nursing home, rehab)? @ -none Was there de-escalation of care discussed even if they declined (Discuss DNR or withdrawal of care, Hospice)? DNR status @ -no What co-morbidities impacted this encounter? (DM, HTN, Smoking, COPD, CAD, Cancer, CVA, ARF, Chemo, Hep., AIDS, mental health diagnosis, sleep apnea, morbid obesity)? @ -none Was patient admitted / discharged? Hospital course, mention meds given and route, prescriptions, significant lab abnormalities, going to OR and other pertinent info. @ - Undiagnosed new problem with uncertain prognosis? @ -no Drug Therapy requiring intensive monitoring for toxicity (Heparin, Nitro, Insulin, Cardizem)? @ -no Were any procedures done? @ -no Diagnosis/symptom? @ - Acute, or Chronic, or Acute on Chronic? @ -Acute Uncomplicated (without systemic symptoms) or Complicated (systemic symptoms)? @ -Complicated Side effects of treatment? @ -no Exacerbation, Progression, or Severe Exacerbation? @ -exacerbation Poses a threat to life or bodily function? How? (Chest pain, USA, [place], pneumonia, PE, COPD, DKA, ARF, appy, cholecystitis, CVA, Diverticulitis, Homicidal, Suicidal, threat to staff... and all critical care pts) @ -yes Reevaluation #5: Differential Abdominal Pain Women: Appendicitis, Cholecystitis, diverticulosis, ischemic bowel, pancreatitis, h epatitis, UTI, gastroenteritis, AAA, incarcerated hernia, bowel obstruction, constipation, inflammatory bowel, hepatitis, peptic ulcer disease, splenic infarction, perforated viscus, vulvitis, ovarian torsion, PID, kidney stone, placenta abruption, this is not meant to be an all-inclusive list Medical Decision Making - Medical Decision Making 34 female to ER for acute on chronic abdominal pain. Pain is well-controlled here in the ER she can be discharged home nausea vomiting that is resolved Disposition Clinical Impression: Nausea and vomiting, Abdominal pain Disposition: HOME SELF-CARE Condition: Good Instructions (If sedation given, give patient instructions): Acute Nausea and Vomiting (ED), Abdominal Pain (ED) Is patient prescribed a controlled substance at d/c from ED?: No Referrals: None,Stated [Primary Care Provider] - 1-2 days Time of Disposition: 23:00
[2025-02-07 22:29] LABS: Bilirubin,Urine Negative (Negative); Blood,Urine Negative (Negative); Color,Urine Colorless; Glucose,Urine (UA) Negative (Negative); Ketones,Urine Negative (Negative); Leukocyte Esterase,Urine Negative (Negative); Nitrite,Urine Negative (Negative); PH, Urine 7.5 (5.0-8.0); Protein,Urine Negative (Negative); Specific Gravity,Urine 1.008 (1.001-1.035); Urobilinogen,Urine <2.0 mg/dL (<2.0)
[2025-02-07] MEDS: HYDROmorphone 1 MG/ML 1 ML SYRINGE IM STA (23:18)
[2025-02-07] MEDS: droPERidol 2.5 MG/ML VIAL IM ONE (23:22)
[2025-02-07 23:26] VITALS: BP 135/86; PULSE 64; RESP 18
== END 2025-02-07 23:26 | disposition home or self-care (01) ==
LOC: EC 21:33
DX: G89.29 Other chronic pain (principal); R11.2 Nausea with vomiting, unspecified; R10.9 Unspecified abdominal pain; Z88.2 Allergy status to sulfonamides; Z88.1 Allergy status to other antibiotic agents; Z88.8 Allergy status to other drugs, medicaments and biological substances
CPT/HCPCS: 81003; 99284; 96372 ×2; J1171; J1790

== ENCOUNTER 2025-02-09 21:44 | Emergency (ER) | payer OTHER ==
[2025-02-09 21:54] VITALS: BP 141/89; TEMP 97.8
[2025-02-09] MEDS: ACETAMINOPHEN TAB 325 MG TAB PO STA (22:36)
[2025-02-09] MEDS: FAMOTIDINE 20 MG TAB PO STA (22:36)
[2025-02-09] MEDS: ONDANSETRON ODT 4 MG TAB PO STA (22:37)
--- NOTE | 2025-02-09 22:55 | ED ---
General Adult HPI - General Chief complaint: Nausea/Vomiting/Diarrhea Stated complaint: Pelvis Pain,Vomiting Time Seen by Provider: 02/09/25 22:50 Source: patient, RN notes reviewed Mode of arrival: wheelchair Limitations: no limitations - History of Present Illness Initial comments: 34-year-old female presenting for chronic abdominal pain. States she has been several times this month for chronic abdominal pain and chronic nausea and vomiting. States symptoms have been ongoing for months. She has an upcoming appointment with pain management March 22. No new or acute symptoms. - Related Data Home Medications Medication Instructions Recorded Confirmed Budesonide/Formoterol Fumarate 2 puff INHALATION RT-BID 09/02/24 09/24/24 [Symbicort 160-4.5 Mcg Inhaler] Escitalopram Oxalate [Lexapro] 20 mg PO HS 09/02/24 09/24/24 Gabapentin [Neurontin] 200 mg PO TID 09/02/24 09/24/24 HYDROcodone/APAP 10-325MG [[place] 1 tab PO TID PRN 09/02/24 09/24/24 10-325] Omeprazole [PriLOSEC] 40 mg PO HS 09/02/24 09/24/24 ondansetron HCL [Zofran] 8 mg PO Q12HR PRN 09/02/24 09/24/24 Ibuprofen 800 mg PO DAILY PRN 09/24/24 09/24/24 Previous Rx's Medication Instructions Recorded Prochlorperazine [Compazine] 10 mg PO Q6H #15 tab 10/01/24 Nitrofurantoin Monohyd/M-Cryst 100 mg PO Q12HR #10 cap 10/09/24 [Macrobid] Ciprofloxacin HCl [Cipro] 500 mg PO BID 7 Days #14 tab 10/18/24 Allergies Allergy/AdvReac Type Severity Reaction Status Date / Time sulfamethoxazole Allergy Severe Anaphylaxis Verified 02/09/25 21:54 [From Bactrim] trimethoprim [From Bactrim] Allergy Severe Anaphylaxis Verified 02/09/25 21:54 adhesive tape Allergy Rash/Hives Verified 02/09/25 21:54 aloe vera Allergy Rash/Hives Verified 02/09/25 21:54 amoxicillin [From Augmentin] Allergy Itching Verified 02/09/25 21:54 azithromycin Allergy Rash/Hives Verified 02/09/25 21:54 cephalexin Allergy Rash/Hives Verified 02/09/25 21:54 clavulanic acid Allergy Itching Verified 02/09/25 21:54 [From Augmentin] metronidazole [From Flagyl] Allergy Rash/Hives Verified 02/09/25 21:54 Penicillins Allergy Rash/Hives Verified 02/09/25 21:54 alprazolam [From Xanax] AdvReac MAKES Verified 02/09/25 21:54 PARANOID dicyclomine [From Bentyl] AdvReac constipatio Verified 02/09/25 21:54 n Review of Systems ROS Statement: Those systems with pertinent positive or pertinent negative responses have been documented in the HPI. ROS Other: All systems not noted in ROS Statement are negative. Past Medical History Past Medical History: Blood Disorder, GERD/Reflux Additional Past Medical History / Comment(s): Endometriosis, polycystic ovarian syndrome. IRON DEFICIENCY ANEMIA. Stomach Ulcer. Hx ovarian cyst.IBS History of Any Multi-Drug Resistant Organisms: None Reported Past Surgical History: Ablation, Appendectomy, Section, [place] cystectomy, Hernia Repair, Hysterectomy, Tubal Ligation, Uterine Ablation Additional Past Surgical History / Comment(s): Laparoscopy X2, Section X3, right ovary and right tube removed, then total hysterectomy including left ovary and left fallopian tube, cyst removed from chest, ADHESION REMOVAL FROM PAST CSECTION, vaginal/pelvic biopsy. Scar tissure removal abdomen L upper lower Past Anesthesia/Blood Transfusion Reactions: No Reported Reaction Past Psychological History: Anxiety, Depression Smoking Status: Never smoker Past Alcohol Use History: Rare Past Drug Use History: None Reported - Past Family History Mother Family Medical History: Deep Vein Thrombosis (DVT), Hyperlipidemia Additional Family Medical History / Comment(s): Depression and anxiety. DVT to arm after surgery. General Exam Limitations: no limitations General appearance: alert, in no apparent distress Head exam: Present: atraumatic, normocephalic, normal inspection Respiratory exam: Present: normal lung sounds bilaterally. Absent: respiratory distress, wheezes, rales, rhonchi, stridor Cardiovascular Exam: Present: regular rate, normal rhythm, normal heart sounds. Absent: systolic murmur, diastolic murmur, rubs, gallop, clicks GI/Abdominal exam: Present: soft, normal bowel sounds. Absent: distended, tenderness, guarding, rebound, rigid Neurological exam: Present: alert, oriented X3 Psychiatric exam: Present: normal affect, normal mood Skin exam: Present: warm, dry, intact, normal color. Absent: rash Course Vital Signs 02/09/25 21:50 Temperature 97.8 F Pulse Rate 73 Respiratory 18 Rate Blood Pressure 141/89 O2 Sat by Pulse 100 Oximetry Medical Decision Making - Medical Decision Making Was pt. sent in by a medical professional or institution (, PA, YOUTH COUNSELOR, urgent care, hospital, or skilled nursing...) When possible be specific @ -No Did you speak to anyone other than the patient for history (EMS, parent, family, police, friend...)? What history was obtained from this source @ -No Did you review nursing and triage notes (agree or disagree)? Why? @ -I reviewed and agree with nursing and triage notes Were old charts reviewed (outside hosp., previous admission, EMS record, old EKG, old radiological studies, urgent care reports/EKG's, skilled nursing records)? Report findings @ -Reviewed previous ER charts from this month showing unremarkable lab work Differential Diagnosis (chest pain, altered mental status, abdominal pain women, abdominal pain men, vaginal bleeding, weakness, fever, dyspnea, syncope, headache, dizziness, GI bleed, back pain, seizure, CVA, palpatations, mental health, musculoskeletal)? @ -Differential Abdominal Pain Women: Appendicitis, Cholecystitis, diverticulosis, ischemic bowel, pancreatitis, hepatitis, UTI, gastroenteritis, AAA, incarcerated hernia, bowel obstruction, constipation, inflammatory bowel, hepatitis, peptic ulcer disease, splenic infarction, perforated viscus, vulvitis, ovarian torsion, PID, kidney stone, placenta abruption, this is not meant to be an all-inclusive list EKG interpreted by me (3pts min.). @ -None X-rays interpreted by me (1pt min.). @ -None done CT interpreted by me (1pt min.). @ -None done U/S interpreted by me (1pt. min.). @ -None done What testing was considered but not performed or refused? (CT, X-rays, U/S, labs)? Why? @ -None What meds were considered but not given or refused? Why? @ -None Did you discuss the management of the patient with other professionals (professionals i.e. , ANALI, YOUTH COUNSELOR, lab, RT, psych nurse, dialysis social worker, correction officer penitentiary, teacher, ship's electronic warfare officer, major case detective)? Give summary @ -No Was smoking cessation discussed for >3mins.? @ -No Was critical care preformed (if so, how long)? @ -No Were there social determinants of health that impacted care today? How? (Homelessness, low income, unemployed, alcoholism, drug addiction, transportation, low edu. Level, literacy, decrease access to med. care, assisted, rehab)? @ -No Was there de-escalation of care discussed even if they declined (Discuss DNR or withdrawal of care, Hospice)? DNR status @ -No What co-morbidities impacted this encounter? (DM, HTN, Smoking, COPD, CAD, Cancer, CVA, ARF, Chemo, Hep., AIDS, mental health diagnosis, sleep apnea, morbid obesity)? @ -None Was patient admitted / discharged? Hospital course, mention meds given and route, prescriptions, significant lab abnormalities, going to OR and other pertinent info. @ -Discharge. 34-year-old female well-known to ER presenting for chronic abdominal pain. No new or acute symptoms. This is patient's seventh visit in this ER this month for same symptoms. Patient was provided with analgesics. Urinalysis unremarkable. Discussed with patient that patient must follow-up outpatient for chronic pain. Lab work/imaging not performed today as there are no acute symptoms and patient has had many unremarkable ER workups for same symptoms. Case was discussed with my ED attending Dr. Carpio. Undiagnosed new problem with uncertain prognosis? @ -No Drug Therapy requiring intensive monitoring for toxicity (Heparin, Nitro, Insulin, Cardizem)? @ -No Were any procedures done? @ -No Diagnosis/symptom? @ -Chronic abdominal pain Acute, or Chronic, or Acute on Chronic? @ -Chronic Uncomplicated (without systemic symptoms) or Complicated (systemic symptoms)? @ -Complicated Side effects of treatment? @ -No Exacerbation, Progression, or Severe Exacerbation? @ -No Poses a threat to life or bodily function? How? (Chest pain, [place], [place], pneumonia, PE, COPD, DKA, ARF, appy, cholecystitis, CVA, Diverticulitis, Homicidal, Suicidal, threat to staff... and all critical care pts) @ -No - Lab Data Lab Results 02/09/25 02/09/25 Range/Units 22:39 22:39 Urine Color Colorless Urine Appearance Clear (Clear) Urine pH 8.0 (5.0-8.0) Ur Specific [place] 1.011 (1.001-1.035) Urine Protein Negative (Negative) Urine Glucose (UA) Negative (Negative) Urine Ketones Negative (Negative) Urine Blood Negative (Negative) Urine Nitrite Negative (Negative) Urine Bilirubin Negative (Negative) Urine Urobilinogen <2.0 (<2.0) mg/dL Ur Leukocyte Esterase Negative (Negative) Urine HCG, Qual Not Detected (Not Detectd) Disposition Clinical Impression: Chronic abdominal pain Disposition: HOME SELF-CARE Additional Instructions: Please return to the Emergency Department if symptoms worsen or any other concerns. Is patient prescribed a controlled substance at d/c from ED?: No Referrals: None,Stated [Primary Care Provider] - 1-2 days Time of Disposition: 23:26
[2025-02-09 23:18] LABS: Bilirubin,Urine Negative (Negative); Blood,Urine Negative (Negative); Color,Urine Colorless; Glucose,Urine (UA) Negative (Negative); Ketones,Urine Negative (Negative); Leukocyte Esterase,Urine Negative (Negative); Nitrite,Urine Negative (Negative); PH, Urine 8.0 (5.0-8.0); Protein,Urine Negative (Negative); Specific Gravity,Urine 1.011 (1.001-1.035); Urobilinogen,Urine <2.0 mg/dL (<2.0)
[2025-02-10 00:05] VITALS: PULSE 70; RESP 17
== END 2025-02-10 00:04 | disposition home or self-care (01) ==
LOC: EC 21:44
DX: R10.9 Unspecified abdominal pain (principal); G89.29 Other chronic pain; Z88.1 Allergy status to other antibiotic agents; Z88.2 Allergy status to sulfonamides; Z91.048 Other nonmedicinal substance allergy status; Z88.0 Allergy status to penicillin; Z88.3 Allergy status to other anti-infective agents; Z88.8 Allergy status to other drugs, medicaments and biological substances
CPT/HCPCS: 81003; 81025; 99284

== ENCOUNTER 2025-02-13 20:09 | Emergency (ER) | payer OTHER ==
--- NOTE | 2025-02-13 20:16 | ED ---
Recheck HPI - General Stated Complaint: pelvic pain Time Seen by Provider: 02/13/25 20:16 Source: RN notes reviewed, old records reviewed Mode of arrival: ambulatory Limitations: no limitations - History of Present Illness Initial Comments: This is a 34 female to the ER for abdominal pain. Known to our emergency department for issues of chronic pain. Patient feels like this is similar pain to prior episodes of pain MD Complaint: medication refill request -: days(s) Returns Today for: persistent/worsening pain related to initial visit Symptoms Since Prior Visit: worsening pain Associated Symptoms: none Treatments Prior to Arrival: Given Pain Meds on - Related Data Home Medications Medication Instructions Recorded Confirmed Budesonide/Formoterol Fumarate 2 puff INHALATION RT-BID 09/02/24 09/24/24 [Symbicort 160-4.5 Mcg Inhaler] Escitalopram Oxalate [Lexapro] 20 mg PO HS 09/02/24 09/24/24 Gabapentin [Neurontin] 200 mg PO TID 09/02/24 09/24/24 HYDROcodone/APAP 10-325MG [[place] 1 tab PO TID PRN 09/02/24 09/24/24 10-325] Omeprazole [PriLOSEC] 40 mg PO HS 09/02/24 09/24/24 ondansetron HCL [Zofran] 8 mg PO Q12HR PRN 09/02/24 09/24/24 Ibuprofen 800 mg PO DAILY PRN 09/24/24 09/24/24 Previous Rx's Medication Instructions Recorded Prochlorperazine [Compazine] 10 mg PO Q6H #15 tab 10/01/24 Nitrofurantoin Monohyd/M-Cryst 100 mg PO Q12HR #10 cap 10/09/24 [Macrobid] Ciprofloxacin HCl [Cipro] 500 mg PO BID 7 Days #14 tab 10/18/24 Allergies Allergy/AdvReac Type Severity Reaction Status Date / Time sulfamethoxazole Allergy Severe Anaphylaxis Verified 02/13/25 20:17 [From Bactrim] trimethoprim [From Bactrim] Allergy Severe Anaphylaxis Verified 02/13/25 20:17 adhesive tape Allergy Rash/Hives Verified 02/13/25 20:17 aloe vera Allergy Rash/Hives Verified 02/13/25 20:17 amoxicillin [From Augmentin] Allergy Itching Verified 02/13/25 20:17 azithromycin Allergy Rash/Hives Verified 02/13/25 20:17 cephalexin Allergy Rash/Hives Verified 02/13/25 20:17 clavulanic acid Allergy Itching Verified 02/13/25 20:17 [From Augmentin] metronidazole [From Flagyl] Allergy Rash/Hives Verified 02/13/25 20:17 Penicillins Allergy Rash/Hives Verified 02/13/25 20:17 alprazolam [From Xanax] AdvReac MAKES Verified 02/13/25 20:17 PARANOID dicyclomine [From Bentyl] AdvReac constipatio Verified 02/13/25 20:17 n Review of Systems ROS Statement: Those systems with pertinent positive or pertinent negative responses have been documented in the HPI. ROS Other: All systems not noted in ROS Statement are negative. Past Medical History Past Medical History: Blood Disorder, GERD/Reflux Additional Past Medical History / Comment(s): Endometriosis, polycystic ovarian syndrome. IRON DEFICIENCY ANEMIA. Stomach Ulcer. Hx ovarian cyst.IBS History of Any Multi-Drug Resistant Organisms: None Reported Past Surgical History: Ablation, Appendectomy, Section, Cholecystec galdino, Hernia Repair, Hysterectomy, Tubal Ligation, Uterine Ablation Additional Past Surgical History / Comment(s): Laparoscopy X2, Section X3, right ovary and right tube removed, then total hysterectomy including left ovary and left fallopian tube, cyst removed from chest, ADHESION REMOVAL FROM PAST CSECTION, vaginal/pelvic biopsy. Scar tissure removal abdomen L upper lower Past Anesthesia/Blood Transfusion Reactions: No Reported Reaction Past Psychological History: Anxiety, Depression Smoking Status: Never smoker Past Alcohol Use History: Rare Past Drug Use History: None Reported - Past Family History Mother Family Medical History: Deep Vein Thrombosis (DVT), Hyperlipidemia Additional Family Medical History / Comment(s): Depression and anxiety. DVT to arm after surgery. General Exam General appearance: alert, in no apparent distress Head exam: Present: atraumatic, normocephalic, normal inspection Eye exam: Present: normal appearance, PERRL, EOMI. Absent: scleral icterus, conjunctival injection, periorbital swelling ENT exam: Present: normal exam, mucous membranes moist Neck exam: Present: normal inspection. Absent: tenderness, meningismus, lymphadenopathy Respiratory exam: Present: normal lung sounds bilaterally. Absent: respiratory distress, wheezes, rales, rhonchi, stridor Cardiovascular Exam: Present: regular rate, normal rhythm, normal heart sounds. Absent: systolic murmur, diastolic murmur, rubs, gallop, clicks GI/Abdominal exam: Present: soft, normal bowel sounds. Absent: distended, tenderness, guarding, rebound, rigid Extremities exam: Present: normal inspection, full ROM, normal capillary refill. Absent: tenderness, pedal edema, joint swelling, calf tenderness Back exam: Present: normal inspection Neurological exam: Present: alert, oriented X3, CN II-XII intact Psychiatric exam: Present: normal affect, normal mood Skin exam: Present: warm, dry, intact, normal color. Absent: rash Course Vital Signs 02/13/25 20:17 Temperature 99.1 F Pulse Rate 84 Respiratory 16 Rate Blood Pressure 163/98 O2 Sat by Pulse 98 Oximetry - Reevaluation(s) Reevaluation #1: 02/13/25 21:34 Medical records reviewed Reevaluation #2: 02/13/25 21:34 Patient symptoms improved Reevaluation #3: 02/13/25 21:34 Patient informed of results questions answered Reevaluation #4: Was pt. sent in by a medical professional or institution (, PA, ZINC SKIMMER, urgent care, hospital, or retirement...) When possible be specific @ -no Did you speak to anyone other than the patient for history (EMS, parent, family, police, friend...)? What history was obtained from this source @ -no Did you review nursing and triage notes (agree or disagree)? Why? @ -agree Are old charts reviewed (outside hosp., previous admission, EMS record, old EKG, old radiological studies, urgent care reports/EKG's, retirement records)? Repo rt findings @ -yes Differential Diagnosis (chest pain, altered mental status, abdominal pain women, abdominal pain men, vaginal bleeding, weakness, fever, dyspnea, syncope, headache, dizziness, GI bleed, back pain, seizure, CVA, palpatations, mental health, musculoskeletal)? @ -prior EKG interpreted by me (3pts min.). @ -yes X-rays interpreted by me (1pt min.). @ -yes negative for acute disease CT interpreted by me (1pt min.). @ -no U/S interpreted by me (1pt. min.). @ -no What testing was considered but not performed or refused? (CT, X-rays, U/S, labs)? Why? @ -none What meds were considered but not given or refused? Why? @ -none Did you discuss the management of the patient with other professionals (professionals i.e. , PA, ZINC SKIMMER, lab, RT, psych nurse, health and social care teacher, business development analyst, te acher, strike warfare/missile systems officer, showcase trimmer)? Give summary @ -no Was smoking cessation discussed for >3mins.? @ -no Was critical care preformed (if so, how long)? @ -no Were there social determinants of health that impacted care today? How? (Homelessness, low income, unemployed, alcoholism, drug addiction, transportation, low edu. Level, literacy, decrease access to med. care, shelter, rehab)? @ -none Was there de-escalation of care discussed even if they declined (Discuss DNR or withdrawal of care, Hospice)? DNR status @ -no What co-morbidities impacted this encounter? (DM, HTN, Smoking, COPD, CAD, Cancer, CVA, ARF, Chemo, Hep., AIDS, mental health diagnosis, sleep apnea, morbid obesity)? @ -none Was patient admitted / discharged? Hospital course, mention meds given and route, prescriptions, significant lab abnormalities, going to OR and other pertinent info. @ - Undiagnosed new problem with uncertain prognosis? @ -no Drug Therapy requiring intensive monitoring for toxicity (Heparin, Nitro, Insulin, Cardizem)? @ -no Were any procedures done? @ -no Diagnosis/symptom? @ - Acute, or Chronic, or Acute on Chronic? @ -Acute Uncomplicated (without systemic symptoms) or Complicated (systemic symptoms)? @ -Complicated Side effects of treatment? @ -no Exacerbation, Progression, or Severe Exacerbation? @ -exacerbation Poses a threat to life or bodily function? How? (Chest pain, [place], [place], pneumonia, PE, COPD, DKA, ARF, appy, cholecystitis, CVA, Diverticulitis, Homicidal, Suicidal, threat to staff... and all critical care pts) @ -yes Reevaluation #5: Differential Abdominal Pain Women: Appendicitis, Cholecystitis, diverticulosis, ischemic bowel, pancreatitis, hepatitis, UTI, gastroenteritis, AAA, incarcerated hernia, bowel obstruction, constipation, inflammatory bowel, hepatitis, peptic ulcer disease, splenic infarction, perforated viscus, vulvitis, ovarian torsion, PID, kidney stone, placenta abruption, this is not meant to be an all-inclusive list Medical Decision Making - Medical Decision Making 34 female acute on chronic abdominal pain patient's pain is controlled she can be discharged home Disposition Clinical Impression: Chronic abdominal pain Disposition: HOME SELF-CARE Condition: Good Instructions (If sedation given, give patient instructions): Abdominal Pain (ED) Is patient prescribed a controlled substance at d/c from ED?: No Referrals: None,Stated [Primary Care Provider] - 1-2 days Time of Disposition: 21:30
[2025-02-13 20:19] VITALS: BP 163/98; PULSE 84; TEMP 99.1
[2025-02-13] MEDS: HYDROmorphone 1 MG/ML 1 ML SYRINGE IM STA (21:45)
[2025-02-13] MEDS: PROCHLORPERAZINE 10 MG TAB PO STA (22:16)
[2025-02-13 22:19] VITALS: RESP 18
== END 2025-02-13 22:27 | disposition home or self-care (01) ==
LOC: EC 20:09
DX: G89.29 Other chronic pain (principal); R10.9 Unspecified abdominal pain; Z88.0 Allergy status to penicillin; Z88.1 Allergy status to other antibiotic agents; Z88.2 Allergy status to sulfonamides; Z88.8 Allergy status to other drugs, medicaments and biological substances
CPT/HCPCS: 99284; 96372; S0183; J1171

== ENCOUNTER 2025-02-17 15:40 | Emergency (ER) | payer OTHER ==
[2025-02-17 15:49] VITALS: RESP 18; TEMP 98
--- NOTE | 2025-02-17 16:02 | ED ---
Recheck HPI - General Chief Complaint: Recheck/Abnormal Lab/Rx Stated Complaint: vomiting and diarrhea Time Seen by Provider: 02/17/25 15:50 Source: patient, RN notes reviewed, old records reviewed Mode of arrival: ambulatory Limitations: no limitations - History of Present Illness Initial Comments: This is a 34-year-old female to the ER for evaluation she presents today for evaluation of nausea vomiting pain acute on chronic pain acute on chronic abdominal pain with persistent nausea vomiting, patient states she has been working well to hard and thinks that may have affected her ability to control her pain and keep things down Complaint: medication refill request Returns Today for: persistent/worsening pain related to initial visit Symptoms Since Prior Visit: worsening pain Associated Symptoms: none Treatments Prior to Arrival: Given Pain Meds on - Related Data Home Medications Medication Instructions Recorded Confirmed Budesonide/Formoterol Fumarate 2 puff INHALATION RT-BID 09/02/24 09/24/24 [Symbicort 160-4.5 Mcg Inhaler] Escitalopram Oxalate [Lexapro] 20 mg PO HS 09/02/24 09/24/24 Gabapentin [Neurontin] 200 mg PO TID 09/02/24 09/24/24 HYDROcodone/APAP 10-325MG [[place] 1 tab PO TID PRN 09/02/24 09/24/24 10-325] Omeprazole [PriLOSEC] 40 mg PO HS 09/02/24 09/24/24 ondansetron HCL [Zofran] 8 mg PO Q12HR PRN 09/02/24 09/24/24 Ibuprofen 800 mg PO DAILY PRN 09/24/24 09/24/24 Previous Rx's Medication Instructions Recorded Prochlorperazine [Compazine] 10 mg PO Q6H #15 tab 10/01/24 Nitrofurantoin Monohyd/M-Cryst 100 mg PO Q12HR #10 cap 10/09/24 [Macrobid] Ciprofloxacin HCl [Cipro] 500 mg PO BID 7 Days #14 tab 10/18/24 Allergies Allergy/AdvReac Type Severity Reaction Status Date / Time sulfamethoxazole Allergy Severe Anaphylaxis Verified 02/17/25 15:49 [From Bactrim] trimethoprim [From Bactrim] Allergy Severe Anaphylaxis Verified 02/17/25 15:49 adhesive tape Allergy Rash/Hives Verified 02/17/25 15:49 aloe vera Allergy Rash/Hives Verified 02/17/25 15:49 amoxicillin [From Augmentin] Allergy Itching Verified 02/17/25 15:49 azithromycin Allergy Rash/Hives Verified 02/17/25 15:49 cephalexin Allergy Rash/Hives Verified 02/17/25 15:49 clavulanic acid Allergy Itching Verified 02/17/25 15:49 [From Augmentin] metronidazole [From Flagyl] Allergy Rash/Hives Verified 02/17/25 15:49 Penicillins Allergy Rash/Hives Verified 02/17/25 15:49 alprazolam [From Xanax] AdvReac MAKES Verified 02/17/25 15:49 PARANOID dicyclomine [From Bentyl] AdvReac constipatio Verified 02/17/25 15:49 n Review of Systems ROS Statement: Those systems with pertinent positive or pertinent negative responses have been documented in the HPI. ROS Other: All systems not noted in ROS Statement are negative. Past Medical History Past Medical History: Blood Disorder, GERD/Reflux Additional Past Medical History / Comment(s): Endometriosis, polycystic ovarian syndrome. IRON DEFICIENCY ANEMIA. Stomach Ulcer. Hx ovarian cyst.IBS History of Any Multi-Drug Resistant Organisms: None Reported Past Surgical History: Ablation, Appendectomy, Section, Cholecy stectomy, Hernia Repair, Hysterectomy, Tubal Ligation, Uterine Ablation Additional Past Surgical History / Comment(s): Laparoscopy X2, Section X3, right ovary and right tube removed, then total hysterectomy including left ovary and left fallopian tube, cyst removed from chest, ADHESION REMOVAL FROM PAST CSECTION, vaginal/pelvic biopsy. Scar tissure removal abdomen L upper lower Past Anesthesia/Blood Transfusion Reactions: No Reported Reaction Past Psychological History: Anxiety, Depression Smoking Status: Never smoker Past Alcohol Use History: Rare Past Drug Use History: None Reported - Past Family History Mother Family Medical History: Deep Vein Thrombosis (DVT), Hyperlipidemia Additional Family Medical History / Comment(s): Depression and anxiety. DVT to arm after surgery. General Exam Limitations: no limitations General appearance: alert, in no apparent distress Head exam: Present: atraumatic, normocephalic, normal inspection Eye exam: Present: normal appearance, PERRL, EOMI. Absent: scleral icterus, conjunctival injection, periorbital swelling ENT exam: Present: normal exam, mucous membranes moist Neck exam: Present: normal inspection. Absent: tenderness, meningismus, ly mphadenopathy Respiratory exam: Present: normal lung sounds bilaterally. Absent: respiratory distress, wheezes, rales, rhonchi, stridor Cardiovascular Exam: Present: regular rate, normal rhythm, normal heart sounds. Absent: systolic murmur, diastolic murmur, rubs, gallop, clicks GI/Abdominal exam: Present: soft, normal bowel sounds. Absent: distended, tenderness, guarding, rebound, rigid Extremities exam: Present: normal inspection, full ROM, normal capillary refill. Absent: tenderness, pedal edema, joint swelling, calf tenderness Back exam: Present: normal inspection Neurological exam: Present: alert, oriented X3, CN II-XII intact Psychiatric exam: Present: normal affect, normal mood Skin exam: Present: warm, dry, intact, normal color. Absent: rash Course Vital Signs 02/17/25 15:44 Temperature 98 F Pulse Rate 93 Respiratory 18 Rate Blood Pressure 113/81 O2 Sat by Pulse 98 Oximetry - Reevaluation(s) Reevaluation #1: 02/17/25 16:13 Medical records reviewed Reevaluation #2: 02/17/25 16:13 Patient symptoms improved Reevaluation #3: 02/17/25 16:13 Patient informed of results questions answered Reevaluation #4: Was pt. sent in by a medical professional or institution (ANALI Leroy, POWERHOUSE LABORER, urgent care, hospital, or alf...) When possible be specific @ -no Did you speak to anyone other than the patient for history (EMS, parent, family, police, friend...)? What history was obtained from this source @ -no Did you review nursing and triage notes (agree or disagree)? Why? @ -agree Are old charts reviewed (outside hosp., previous admission, EMS record, old EKG, old radiological studies, urgent care reports/EKG's, alf records)? Report findings @ -yes Differential Diagnosis (chest pain, altered mental status, abdominal pain women, abdominal pain men, vaginal bleeding, weakness, fever, dyspnea, syncope, headache, dizziness, GI bleed, back pain, seizure, CVA, palpatations, mental health, musculoskeletal)? @ -prior EKG interpreted by me (3pts min.). @ -yes X-rays interpreted by me (1pt min.). @ -yes negative for acute disease CT interpreted by me (1pt min.). @ -no U/S interpreted by me (1pt. min.). @ -no What testing was considered but not performed or refused? (CT, X-rays, U/S, labs)? Why? @ -none What meds were considered but not given or refused? Why? @ -none Did you discuss the management of the patient with other professionals (professionals i.e. DrLuciano, PA, POWERHOUSE LABORER, lab, RT, psych nurse, social insurance analyst, civil design technician, teacher, precinct commanding officer, mental health case manager)? Give summary @ -no Was smoking cessation discussed for >3mins.? @ -no Was critical care preformed (if so, how long)? @ -no Were there social determinants of health that impacted care today? How? (Homelessness, low income, unemployed, alcoholism, drug addiction, transportation, low edu. Level, literacy, decrease access to med. care, [facility], rehab)? @ -none Was there de-escalation of care discussed even if they declined (Discuss DNR or withdrawal of care, Hospice)? DNR status @ -no What co-morbidities impacted this encounter? (DM, HTN, Smoking, COPD, CAD, Cancer, CVA, ARF, Chemo, Hep., AIDS, mental health diagnosis, sleep apnea, morbid obesity)? @ -none Was patient admitted / discharged? Hospital course, mention meds given and route, prescriptions, significant lab abnormalities, going to OR and other pertinent info. @ - Undiagnosed new problem with uncertain prognosis? @ -no Drug Therapy requiring intensive monitoring for toxicity (Heparin, Nitro, Insulin, Cardizem)? @ -no Were any procedures done? @ -no Diagnosis/symptom? @ - Acute, or Chronic, or Acute on Chronic? @ -Acute Uncomplicated (without systemic symptoms) or Complicated (systemic symptoms)? @ -Complicated Side effects of treatment? @ -no Exacerbation, Progression, or Severe Exacerbation? @ -exacerbation Poses a threat to life or bodily function? How? (Chest pain, [place], [place], pneumonia, PE, COPD, DKA, ARF, appy, cholecystitis, CVA, Diverticulitis, Homicidal, Suicidal, threat to staff... and all critical care pts) @ -yes Reevaluation #5: Differential Abdominal Pain Women: Appendicitis, Cholecystitis, diverticulosis, ischemic bowel, pancreatitis, hepatitis, UTI, gastroenteritis, AAA, incarcerated hernia, bowel obstruction, constipation, inflammatory bowel, hepatitis, peptic ulcer disease, splenic infarction, perforated viscus, vulvitis, ovarian torsion, PID, kidney stone, placenta abruption, this is not meant to be an all-inclusive list Medical Decision Making - Medical Decision Making 34 female to the ER for evaluation patient presents today for evaluation of patient has adequate pain control here in the ER abdominal pain persistent but feeling better patient can be discharged home Disposition Clinical Impression: Abdominal pain Disposition: HOME SELF-CARE Condition: Good Instructions (If sedation given, give patient instructions): Abdominal Pain (ED) Is patient prescribed a controlled substance at d/c from ED?: No Referrals: None,Stated [Primary Care Provider] - 1-2 days Time of Disposition: 16:10
[2025-02-17] MEDS: HYDROmorphone 1 MG/ML 1 ML SYRINGE IM STA (17:01)
[2025-02-17] MEDS: droPERidol 2.5 MG/ML VIAL IM ONE (17:01)
[2025-02-17 17:39] VITALS: BP 128/74; PULSE 75
== END 2025-02-17 17:39 | disposition home or self-care (01) ==
LOC: EC 15:40
DX: R10.32 Left lower quadrant pain (principal); R10.12 Left upper quadrant pain; Z88.0 Allergy status to penicillin; Z88.1 Allergy status to other antibiotic agents; Z88.2 Allergy status to sulfonamides; Z88.8 Allergy status to other drugs, medicaments and biological substances; Z91.048 Other nonmedicinal substance allergy status
CPT/HCPCS: 99284; 96372; J1171; J1790